=== PATIENT | female | born 1960 | race Caucasian/White ===

== ENCOUNTER 2019-10-16 11:47 | Emergency (ER) | payer BC ==
[2019-10-16] MEDS ORDERED: METHYLPREDNISOLONE 125 MG INJ ONE ×2 (12:45→13:09)
[2019-10-16] MEDS ORDERED: LEVALBUTEROL 1.25 MG/3 ML NEB ONE ×2 (12:45→13:09)
[2019-10-16] MEDS ORDERED: MAGNESIUM SULFATE 1 gm IVPB 0 GM/0 ML BAG IV ONE (12:46)
[2019-10-16] MEDS ORDERED: NA CHLORIDE 0.9% 0 ML ONE (12:46)
[2019-10-16] MEDS ORDERED: MAGNESIUM SULFATE 1 gm IVPB 1 GM/100 ML BAG IV ONE (13:09)
[2019-10-16] MEDS ORDERED: NA CHLORIDE 0.9% 1,000 ML ONE (13:09)
[2019-10-16 13:33] LABS: Absolute Lymphocytes (CBC) 0.7 K/uL (0.7-4.9); Basophils % 0.3 % (0-1.3); Hematocrit 42.8 % (36.0-45.0); Lymphocytes % 9.6 % (15.3-44.8); MPV 9.1 fL (7.6-11.3); RBC Red Blood Cell Count 4.48 M/uL (3.86-4.86)
--- NOTE | 2019-10-16 13:40 | RAD REPORT ---
EXAM DESCRIPTION: RAD - Chest Pa And Lat (2 Views) - 10/16/2019 1:14 pm CLINICAL HISTORY: cough, fever COMPARISON: None TECHNIQUE: Frontal and lateral views of the chest were obtained. FINDINGS: The lungs are fibrotic. Diaphragm is flattened. Increased retrosternal space noted. Small granulomatous calcifications are seen. No worrisome infiltrate or mass. Heart size is normal and ce ntral vasculature is within normal limits. No pleural effusion or pneumothorax seen. No acute bony finding noted. No aortic abnormality. IMPRESSION: COPD changes are evident. No focal pneumonia identified.
[2019-10-16 13:50] LABS: Albumin 3.3 g/dL (3.4-5.0); Bilirubin Total 0.1 mg/dL (0.2-1.0); Potassium 4.5 mmol/L (3.5-5.1); Protein, Total 7.2 g/dL (6.4-8.2)
[2019-10-16 13:57] LABS: Blood Morphology Comment NOT SEEN (NOT SEEN); Platelet Estimate ADEQ; Urine White Blood Cell Casts OK
--- NOTE | 2019-10-16 14:55 | ER ---
Nurse's Notes [facility] Name: Rhona Ladd Age: 59 yrs Sex: Female : 1960 Arrival Date: 10/16/2019 Time: 11:51 Bed 17 Private MD: Prashant Villa Diagnosis: Acute bronchitis Presentation: 10/15 12:08 Chief complaint: Patient states: Off and on cough, congestion and runny nose x 1 week. ss Pt has been seen in [place] [facility] and by Dr. Villa and given cough syrup, Z-mariano and prednisone which does not seem to be helping. Pt is concerned also because her blood pressure is high and does not seem to be improving. Coronavirus screen: The patient has NOT traveled to a country currently being monitored by the CDC within the last 14 days. Ebola Screen: Patient denies exposure to infectious person. Patient denies travel to an Ebola-affected area in the 21 days before illness onset. Resp Distress? No respiratory distress is noted at this time. Initial Sepsis Screen: Does the patient meet any 2 criteria? No. Patient's initial sepsis screen is negative. Does the patient have a suspected source of infection? No. Patient's initial sepsis screen is negative. Risk Assessment: Do you want to hurt yourself or someone else? Patient reports no desire to harm self or others. 12:08 Method Of Arrival: Ambulatory ss 12:08 Acuity: CHON 3 ss 13:10 Onset of symptoms was October 16, 2019. ca1 Historical: - Allergies: 12:10 Soma; ss 12:10 Bactrim; ss 12:10 Codeine; ss - PMHx: 12:10 Asthma; ss - Immunization history:: Adult Immunizations up to date. - Social history:: Smoking status: Patient denies any tobacco usage or history of. Screenin:10 Abuse screen: Denies threats or abuse. Denies injuries from another. Nutritional ca1 screening: No deficits noted. Tuberculosis screening: No symptoms or risk factors identified. Fall Risk IV access (20 points). Assessment: 13:10 General: Appears in no apparent distress. comfortable, Behavior is calm, cooperative, ca1 appropriate for age. Pain: Denies pain. Neuro: Level of Consciousness is awake, alert, obeys commands, Oriented to person, place, time, situation. Cardiovascular: Heart tones S1 S2 present Capillary refill < 3 seconds Patient's skin is warm and dry. Respiratory: Reports cough that is persistent since since 4 weeks ago pain with cough Airway is patent Respiratory effort is even, unlabored, Respiratory pattern is regular, symmetrical, Breath sounds with wheezes bilaterally. GI: Abdomen is round non-distended, Bowel sounds present X 4 quads. Abd is soft and non tender X 4 quads. : No deficits noted. No signs and/or symptoms were reported regarding the genitourinary system. EENT: Reports nasal congestion since a week ago. Derm: Skin is intact, is healthy with good turgor, Skin is pink, warm \\T\\ dry. Musculoskeletal: Circulation, motion, and sensation intact. Capillary refill < 3 seconds. 13:51 Reassessment: Patient appears in no apparent distress at this time. Patient and/or ca1 family updated on plan of care and expected duration. Pain level reassessed. Patient is alert, oriented x 3, equal unlabored respirations, skin warm/dry/pink. 14:15 Reassessment: Pt c/o difficulty breathing. Sats at 93%. Put O2 at 2LPM. Notified ca1 provider. 14:30 Reassessment: Ambulated pt around nurse's station per provider instruction. Baseline ca1 SPO2 at was 94%. SPO2 while ambulating ranges: 89%-92% at . Pt states, "I am okay, I just fel shaky". Requested to be put back on O2 once back in the room. notified provider. 14:40 Reassessment: Provider at bedside. ca1 15:00 Reassessment: Patient appears in no apparent distress at this time. Patient is alert, ca1 oriented x 3, equal unlabored respirations, skin warm/dry/pink. Vital Signs: 12:08 BP 174 / 100; Pulse 79; Resp 20; Temp 97.4(TE); Pulse Ox 93% on R/A; Weight 77.11 kg; ss Height 5 ft. 9 in. (175.26 cm); Pain 0/10; 13:26 BP 179 / 93; Pulse 75; Resp 19 S; Pulse Ox 98% on Nebulizer Mask; ca1 14:00 BP 151 / 78; Pulse 80; Resp 18 S; Pulse Ox 93% on R/A; ca1 15:01 BP 142 / 80; Pulse 81; Resp 18 S; Pulse Ox 97% on 2 lpm NC; ca1 12:08 Body Mass Index 25.10 (77.11 kg, 175.26 cm) ED Course: 11:51 Patient arrived in ED. mr 11:51 Prashant Villa DO is Private Physician. mr 11:52 Raymond Rodriguez PA is PHCP. m 11:52 Agustín Garcia MD is Attending Physician. jmm 12:10 Triage completed. ss 12:10 Arm band placed on right wrist. ss 12:39 Kellee Vargas, RN is Primary Nurse. ph 13:06 Patient has correct armband on for positive identification. Bed in low position. Call [facility] light in reach. Side rails up X 1. Adult w/ patient. Warm blanket given. Pulse ox on. NIBP on. 13:06 CBC with Automated Diff Sent. [facility] 13:06 Lactate Sent. [facility] 13:06 Procalcitonin Sent. [facility] 13:06 CMP Sent. [facility] 13:06 CBC with Diff Sent. [facility] 13:07 Initial lab(s) drawn, by me, sent to lab. Missed attempt(s): 22 gauge antecubital area. [facility] 13:09 Chest Pa And Lat (2 Views) XRAY In Process Unspecified. EDMS 13:10 Missed attempt(s): 20 gauge in left forearm. Bleeding controlled, band aid applied, ca1 catheter tip intact. 13:25 Lab(s) recollected, by me, sent to lab. Inserted saline lock: 22 gauge in right ca1 forearm, using aseptic technique. Blood collected. 14:54 Prashant Villa DO is Referral Physician. [facility] 15:06 No provider procedures requiring assistance completed. IV discontinued, intact, ca1 bleeding controlled, No redness/swelling at site. Pressure dressing applied. Administered Medications: 13:15 Drug: Xopenex (3) 1.25 mg Route: Inhalation; ca1 14:00 Follow up: Response: No adverse reaction ph 13:26 Drug: NS 0.9% 1000 ml Route: IV; Rate: 1 bolus; Site: right forearm; ca1 14:30 Follow up: Response: No adverse reaction; IV Status: Completed infusion; IV Intake: ph 1000ml 13:27 Drug: SOLU-Medrol 125 mg Route: IVP; Site: right forearm; ca1 14:11 Follow up: Response: No adverse reaction ca1 13:29 Drug: Magnesium Sulfate 1 grams Route: IVPB; Infused Over: 1 hrs; Site: right forearm; ca1 14:30 Follow up: Response: No adverse reaction; IV Status: Completed infusion ph Intake: 14:30 IV: 1000ml; Total: 1000ml. ph Outcome: 14:55 Discharge ordered by MD. king 15:06 Discharged to home ambulatory, with significant other. ca1 15:06 Condition: stable 15:06 Discharge instructions given to patient, Instructed on discharge instructions, follow up and referral plans. medication usage, Demonstrated understanding of instructions, follow-up care, medications, Prescriptions given X 2. 15:08 Patient left the ED. ca1 Signatures: Dispatcher [employer] EDMS Raymond Rodriguez PA PA jmm Rivera, Mary Ameena Zamudio, RN RN Kellee Ram RN RN ph Martinez, Maria [facility] Halie Quispe RN RN ca1 Corrections: (The following items were deleted from the chart) 14:17 14:15 Reassessment: Pt c/o difficulty breathing. Sats at 95%. Put O2 at 2LPM. Notified ca1 provider ca1 15:06 15:01 BP 184 / 86; Pulse 81bpm; Resp 18bpm; Spontaneous; Pulse Ox 97% 2 lpm Nasal ca1 Cannula; ca1
--- NOTE | 2019-10-16 14:55 | EDPHYS ---
Physician Documentation [facility] Name: Rhona Ladd Age: 59 yrs Sex: Female : 1960 Arrival Date: 10/16/2019 Time: 11:51 Bed 17 Private MD: Prashant Villa ED Physician Agustín Garcia HPI: 10/15 12:29 This 59 yrs old Female presents to ER via Ambulatory with complaints of jmm Cough, Congestion. 12:29 The patient or guardian reports cough. Onset: The symptoms/episode began/occurred jmm gradually, 1 month(s) ago. Modifying factors: The symptoms are alleviated by nothing, the symptoms are aggravated by nothing. Associated signs and symptoms: Pertinent positives: fever, sore throat, Pertinent negatives:. This is a 59 year old female with a history of asthma that presents to the ED with complaints of cough, shortness of breath which has been ongoing for the past month. Symptoms worsened last week and was evaluated at an ED. Patient was seen by PCP recently and prescribed azithromycin, prednison, cough syrup with little relief. . Historical: - Allergies: 12:10 Soma; ss 12:10 Bactrim; ss 12:10 Codeine; ss - PMHx: 12:10 Asthma; ss - Immunization history:: Adult Immunizations up to date. - Social history:: Smoking status: Patient denies any tobacco usage or history of. ROS: 12:29 Constitutional: Positive for fever. jmm 12:29 ENT: Positive for sore throat. 12:29 Respiratory: Positive for cough. 12:29 All other systems are negative. Exam: 12:29 Constitutional: This is a well developed, well nourished patient who is awake, alert, jmm and in no acute distress. Head/Face: atraumatic. Eyes: EOMI, no conjunctival erythema appreciated 12:29 Neck: Trachea midline, Supple Chest/axilla: Normal chest wall appearance and motion. 12:29 Abdomen/GI: Non distended, soft Back: Normal ROM Skin: General appearance color normal MS/ Extremity: Moves all extremities, no obvious deformities appreciated, no edema noted to the lower extremities Neuro: Awake and alert, normal gait Psych: Behavior is normal, Mood is normal, Patient is cooperative and pleasant 12:29 ENT: Posterior pharynx: erythema, that is mild. 12:29 Cardiovascular: Rate: normal, Rhythm: regular. 12:29 Respiratory: the patient does not display signs of respiratory distress, Respirations: normal, Breath sounds: wheezing: that is mild, is heard in the right posterior upper lobe and right posterior middle lobe. Vital Signs: 12:08 BP 174 / 100; Pulse 79; Resp 20; Temp 97.4(TE); Pulse Ox 93% on R/A; Weight 77.11 kg; ss Height 5 ft. 9 in. (175.26 cm); Pain 0/10; 13:26 BP 179 / 93; Pulse 75; Resp 19 S; Pulse Ox 98% on Nebulizer Mask; ca1 14:00 BP 151 / 78; Pulse 80; Resp 18 S; Pulse Ox 93% on R/A; ca1 15:01 BP 142 / 80; Pulse 81; Resp 18 S; Pulse Ox 97% on 2 lpm NC; ca1 12:08 Body Mass Index 25.10 (77.11 kg, 175.26 cm) ss MDM: 12:18 Patient medically screened. [facility] 14:52 Data reviewed: vital signs, nurses notes. Counseling: I had a detailed discussion with christine the patient and/or guardian regarding: the historical points, exam findings, and any diagnostic results supporting the discharge/admit diagnosis, lab results, radiology results, the need for outpatient follow up, to return to the emergency department if symptoms worsen or persist or if there are any questions or concerns that arise at home. ED course: O2 was above 90% on ambulation. No wheezing on reauscultation. Patient's steroid dose will be increased. Patient will follow up with Dr. Villa tomorrow for reevaluation. Patient is otherwise given strict return precautions. Patient is alert, non toxic in appearance, with no signs of resp distress on discharge.. 10/15 12:28 Order name: CBC with Diff [facility] 10/15 12:28 Order name: CMP; Complete Time: 13:55 [facility] 10/15 12:28 Order name: Procalcitonin; Complete Time: 14:10 [facility] 10/15 12:28 Order name: Lactate; Complete Time: 13:47 [facility] 10/15 12:29 Order name: CBC with Automated Diff; Complete Time: 14:10 [facility] 10/15 13:37 Order name: CBC Smear Scan; Complete Time: 14:10 [facility] 10/15 12:28 Order name: Saline Lock; Complete Time: 13:29 [facility] 10/15 12:29 Order name: Chest Pa And Lat (2 Views) XRAY; Complete Time: 13:47 [facility] 10/15 13:16 Order name: Labs - recollect needed: recollect lavender and green; Complete Time: 13:29 eb Administered Medications: 13:15 Drug: Xopenex (3) 1.25 mg Route: Inhalation; ca1 14:00 Follow up: Response: No adverse reaction ph 13:26 Drug: NS 0.9% 1000 ml Route: IV; Rate: 1 bolus; Site: right forearm; ca1 14:30 Follow up: Response: No adverse reaction; IV Status: Completed infusion; IV Intake: ph 1000ml 13:27 Drug: SOLU-Medrol 125 mg Route: IVP; Site: right forearm; ca1 14:11 Follow up: Response: No adverse reaction ca1 13:29 Drug: Magnesium Sulfate 1 grams Route: IVPB; Infused Over: 1 hrs; Site: right forearm; ca1 14:30 Follow up: Response: No adverse reaction; IV Status: Completed infusion ph Disposition: 10/16 09:44 Co-signature as Attending Physician, Agustín Garcia MD I agree with the assessment and [facility] plan of care. Disposition: 10/16/19 14:55 Discharged to Home. Impression: Acute bronchitis. - Condition is Stable. - Discharge Instructions: Acute Bronchitis, Adult. - Prescriptions for Prednisone 20 mg Oral Tablet - take 3 tablet by ORAL route once daily for 5 days; 15 tablet. Albuterol Sulfate 90 mcg/actuation Inhalation - inhale 1-2 puff by INHALATION route every 4-6 hours; 1 Inhaler. - Medication Reconciliation Form, Thank You Letter, Antibiotic Education, Prescription Opioid Use form. - Follow up: Prashant Villa, DO; When: Tomorrow; Reason: Recheck today's complaints, Continuance of care, Re-evaluation by your physician. Signatures: Dispatcher [employer] Agustín Tomlinson MD MD cha Mickail, Joel, PA PA jmm Smirch, Shelby, RN RN Ros Gray Cheryl, RN RN [facility] Kellee Vargas RN ph Corrections: (The following items were deleted from the chart) 10/15 15:08 14:55 10/16/2019 14:55 Discharged to Home. Impression: Acute bronchitis. Condition is ca1 Stable. Forms are Medication Reconciliation Form, Thank You Letter, Antibiotic Education, Prescription Opioid Use. Follow up: Prashant Villa; When: Tomorrow; Reason: Recheck today's complaints, Continuance of care, Re-evaluation by your physician. christine
[2019-10-16 15:22] VITALS: BP 142/80; O2SAT 97
[2019-10-16 15:32] VITALS: TEMP 98.8
== END 2019-10-16 15:08 | disposition home or self-care (01) ==
LOC: ER 11:47
DX: J20.9 Acute bronchitis, unspecified (principal); Z88.1 Allergy status to other antibiotic agents; Z88.5 Allergy status to narcotic agent
CPT/HCPCS: 96365; 85025; 36415; 83605; 80053; 84145; 71046; 96375; 99284; J3475; J7030; J2930

== ENCOUNTER 2019-10-18 11:01 | Emergency (ER) | payer BC ==
--- OUTSIDE RECORDS SUMMARY | 2019-10-18 11:04 | XMS REPORT ---
:1960 Author Organization [employer] Care Team Providers Name Role Phone Prashant Villa Provider Role Unavailable Allergies, Adverse Reactions, Alerts Substance Reaction Event Type Soma Itch Drug Allergy Morphine Sulfate Itch Drug Allergy Bactrim Itch Drug Allergy Problems Problem Type Condition Code Onset Dates Condition Status Assessment Moderate persistent asthma with J45.41 Active exacerbation Problem Moderate persistent asthma with J45.41 Active exacerbation Assessment Tobacco use disor-delliv O99.334 Active Assessment Upper respiratory tract infection, J06.9 Active unspecified type Assessment Acute non-recurrent maxillary J01.00 Active sinusitis Medications Medication Code Code Instructions Start End Date Status Dosage System Date PredniSONE [facility] 41453086170 20 MG Orally October Active 2 tablet Once a day [address] [facility] 29376539638 160-4.5 MCG/ACT Active 2 puffs Inhalation Twice a day Azithromycin [facility] 49744740325 250 MG Orally October Active 2 tablets Once a day 2019 on the first day, then 1 tablet daily for 4 days Promethazine HCl [facility] 97538181539 6.25 MG/5ML Active 10 ml as Orally every 6 needed hrs Results No Known Results Summary Purpose [employer] Submission
--- OUTSIDE RECORDS SUMMARY | 2019-10-18 11:04 | XMS REPORT | Continuity of Care Document ---
:1960 Author Organization [facility] Address [address] [place] [address] Allergies, Adverse Reactions, Alerts Allergen Type Severity Reaction Last Updated Verified Status Carisoprodol ([id number]) Allergy Moderate August 21, No Active 2020 Sulfamethoxazole Allergy Moderate August 21, No Active w/Trimethoprim 2019 ([id number]) Medications No known medications. Problems No problem information available. Procedures No procedure information available. Relevant Diagnostic Tests and/or Laboratory Data Laboratory Results Test Date/Time Result Interpretation Reference Result Performing Range Comment Site White Blood Count August 7.1 4.0-11.5 [facility], 104 2019 5:57pm [facility] [address] Red Blood Count Francy 4.45 3.80-5.20 [facility], 104 2019 5:57pm [facility] [address] Hemoglobin Francy 14.3 10.5-15.7 [facility], 104 2019 5:57pm [facility] [address] Hematocrit Francy 44.2 34.0-50.0 [facility], 104 2019 5:57pm [facility] [address] Mean Corpuscular Francy 99.3 86-100 [facility], 104 Volume 2019 5:57pm [facility] [address]98 Mean Corpuscular Francy 32.1 26.2-33.4 [facility], [address] Hemoglobin 2019 5:57pm [facility] [address] Mean Corpuscular Francy 32.4 30-34 [facility], 104 Hemoglobin Concent 2019 5:57pm [facility] [address]20 Red Cell Francy 12.4 12.0-15.5 [facility], 104 7TH Distribution Width 2019 5:57pm [facility] [address]309 Platelet Count August 178 165-450 [facility], 104 2019 5:57pm [place] [address] Mean Platelet Francy 10.3 9.4-12.6 [facility], [address] [facility] [address] Volume 2019 5:57pm [place] [address] Neutrophils (%) Francy 56.7 44.4-80.1 [facility], [address] [facility] (Auto) 2019 5:57pm [place] [address] Immature Francy 0.6 0.0-0.4 [facility], [address] [facility] Granulocyte % 2019 (Auto) 5:57pm [place] [address] Lymphocytes (%) August 34.2 10.0-50.0 [facility], [address] (Auto) 2019 5:57pm [place] [address] Monocytes (%) Francy 6.0 3.6-12.0 [facility], [address] [facility] (Auto) 2019 5:57pm [place] [address] Eosinophils (%) August 2.1 0.0-5.4 [facility], [address] [facility] (Auto) 2019 5:57pm [place] [address] Basophils (%) Francy 0.4 0.1-1.2 [facility], [address] [facility] (Auto) 2019 5:57pm [place] [address] Neutrophils # Francy 4.00 1.56-6.13 [facility], [address] (Auto) 2019 5:57pm [place] [address] Absolute Immature Francy 0.0 0.0-0.03 [facility], [address] [facility] Granulocyte (auto 2019 5:57pm [place] [address] Lymphocytes # Francy 2.4 1.18-3.74 [facility], [address] (Auto) 2019 5:57pm [place] [address] Monocytes # (Auto) Francy 0.42 0.24-0.86 [facility], [address] [facility] [address] 2019 5:57pm [place] [address] Eosinophils # Francy 0.15 0.04-0.36 [facility], [address] [facility] (Auto) 2019 5:57pm [place] [address] Basophils # (Auto) Francy 0.03 0.01-0.08 [facility], [address] [facility] 2019 5:57[place] [address] Nucleated Red Francy 0 0-0.2 [facility], [address] [facility] Blood Cells % 2019 5:57pm [place] [address] Nucleated Red August 0 0 [facility], 104 Blood Cells # 2019 5:57[place] [address] Urine Color Francy [address]. [facility], 104 2019 YELLOW 6:11pm [place] [address] Urine Appearance August CLEAR CLEAR [facility], 104 2019 6:11pm [place] [address] Urine Glucose (UA) Francy NEGATIVE NEGATIVE [facility], 104 2019 6:11pm [place] [address] Urine Bilirubin Francy NEGATIVE NEGATIVE [facility], 104 2019 6:11pm [place] [address] Urine Ketones August NEGATIVE NEGATIVE [facility], 104 2019 6:11pm [place] [address] Urine Specific Francy >=1.030 1.003-1.03 [facility], 104 Senath 2019 0 6:11pm [place] [address] Urine Blood August MODERATE NEGATIVE [facility], 104 2019 6:11pm [place] [address] Urine pH August 6.000 5-9 [facility], 104 2019 6:11pm [place] [address] Urine Protein Frnacy NEGATIVE NEGATIVE [facility], 104 2019 6:11pm [place] [address] Urine Urobilinogen August 0.2 0.2-1.0 [facility], 104 2019 6:11pm [place] [address] Urine Nitrate Francy NEGATIVE NEGATIVE [facility], 104 2019 6:11pm [place] [address] Urine Leukocyte Francy TRACE NEGATIVE [facility], 104 Esterase 2019 6:11pm [place] [address] Urine RBC August 0-3 0-5 [facility], 104 2019 6:11pm [place] [address] Urine WBC August 30-49 0-5 [facility], 104 2019 6:11pm [place] [address] Urine Epithelial Francy 0-5 0-5 [facility], 104 2019 6:11pm [place] [address] Urine Bacteria August TRACE None [facility], 104 2019 Detect 6:11pm [place] [address] Urine Culture August YES [facility], 104 Reflexed 2019 6:11pm [facility] [address] Random Glucose August 105 74-106 [facility], 104 2019 5:57pm [facility] [address] Blood Urea August 15 6-20 [facility], 104 Nitrogen 2019 5:57pm [facility] [address] Serum Osmolality August 284 280-300 [facility], 104 2019 5:57pm [facility] [address] Creatinine August 0.6 0.50-0.90 [facility], 104 2019 5:57pm [facility] [address] Glomerular Francy > 60.00 GFR RESULTS [facility], [facility] Filtration Rate 2019 ARE Calc 5:57pm REPORTED IN [facility] [address] mL/min/1.73 m2.Normal GFR: >60mL/minMo derately decreased GFR: 30-59 mL/minSever sridhar decreased GFR: 15-29 mL/minKidne y Failure (or Dialysis): <15 mL/minThe calculated eGFR is not valid for patients younger than 18 years or older than 75 years. BUN/Creatinine August 25.0 12- [facility], 104 [facility] 2019 5:57pm [facility] [address] Sodium Level August 142 135-145 [facility], 104 2019 5:57pm [facility] [address] Potassium Level August 4.0 3.5-5.2 [facility], 104 2019 5:57pm [facility] [address] Chloride Level August 98-108 [facility], 104 2019 5:57pm [facility] [address] Carbon Dioxide August 25 21-32 [facility], 104 2019 5:57pm [facility] [address] Anion Gap August 17.0 07-22 [facility], 104 2019 5:57pm [facility] [address] Calcium Level August 9.8 8.6-10.0 [facility], 104 2019 5:57pm [facility] [address] Total Protein August 6.7 6.6-8.7 [facility], 104 2019 5:57pm [facility] [address] Albumin August 4.4 3.5-5.2 [facility], 104 2019 5:57pm [facility] [address] Globulin Francy 2.3 [facility], [address] 2019 5:57pm [facility] [address] Albumin/Globulin Francy 1.9 >1.0 [facility], [address] Ratio 2019 5:57pm [facility] [address] Total Bilirubin August < 0.3 0.0-1.2 [facility], [address] 2019 5:57pm [facility] [address] Aspartate Amino August 16 15-32 [facility], [address] Transf (AST/SGOT) 2019 5:57pm [facility] [address] Alanine August 19 0-33 [facility], [address] Aminotransferase 2019 (ALT/SGPT) 5:57pm [facility] [address] Total Alkaline August 35-105 [facility], [address] Phosphatase 2019 5:57pm [facility] [address] Health Concerns No known health concerns documented Advance Directives Advance Directive Response Recorded Date/Time Advance Directive on File No August 21, 2019 5:45pm Chief Complaint and Reason for Visit Chief Complaint Female Urogenital Problems Reason for Visit [id number] Encounters Encounter Location(s) Arrival/Admit Date Discharge/Depart Date Provider(s) Departed [place] August 21, 2019 August 21, 2019 KURTIS ZAMBRANO Emergency Room [facility] 5:38pm 7:29pm MD Ctr Assessments No Assessments Information Available Functional Status No Functional Status information available Goals No Goals Information Available Immunizations No Immunization Information Available Mental Status No Mental Status Information Available Medical Equipment No Medical Equipment Information available Insurance Providers Guarantor Rena Beckford Address [address] [address] Contact Info. Home Phone: Payer Policy Id Coverage Id Subscriber's Subscriber Id Effective Expiration Name Date Date Osmani Vazquez [id number] Rena Beckford [id number] [address] Plan of Treatment CALL MD FOR FOLLOW UP IN 3 OR 4 DAYS TO RE-EVALUATE AND RECHECK URNINE MACROBID TWICE A DAY PYRIDIUM 3 TIMES A DAY Future Tests Future scheduled test information is unavailable Pending Tests Test Name Date ordered Urine Culture August 21, 2019 6:11pm Future Visits Future appointment information is unavailable Referrals to Other Providers Reason for Referral Start Provider Provider Contact Provider Address Referral Date Information PHYSICIAN, NO Future Procedures Future procedure information is unavailable Future Medications Future medication information is unavailable Patient Instructions Drug Allergy, Dhak-ek-Efye Urinary Tract Infection, Adult, Mnxo-[id number] Social History Assigned Sex Female Vital Signs Vital Reading Result Collection Date/Time
--- NOTE | 2019-10-18 14:14 | RAD REPORT ---
EXAM DESCRIPTION: CT - Head Brain Wo Cont - 10/18/2019 2:06 pm CLINICAL HISTORY: HTN, right sided tingling Headache, hypertension, drowsiness COMPARISON: No comparisons TECHNIQUE: All CT scans are performed using dose optimization technique as appropriate and may inclu de automated exposure control or mA/KV adjustment according to patient size. FINDINGS: No intracranial hemorrhage, hydrocephalus or extra-axial fluid collection.No areas of brai n edema or evidence of midline shift. The paranasal sinuses and mastoids are clear. The calvarium is intact. IMPRESSION: No acute intracranial abnormality.
[2019-10-18 14:16] LABS: Absolute Lymphocytes (CBC) 0.9 K/uL (0.7-4.9); Basophils % 0.4 % (0-1.3); Lymphocytes % 10.2 % (15.3-44.8); MPV 8.7 fL (7.6-11.3); RBC Red Blood Cell Count 4.51 M/uL (3.86-4.86)
[2019-10-18 14:17] LABS: Protime INR 0.87
--- NOTE | 2019-10-18 14:25 | EKG ---
Test Date: 2019-10-18 Test Time: 14:15:19 Branding Machine Operator: MELITON MEASUREMENT RESULTS: Intervals: Rate: 64 IA: 128 QRSD: 76 QT: 386 QTc: 398 [place]: P: 66 IA: 128 QRS: 37 T: 59 INTERPRETIVE STATEMENTS: Normal sinus rhythm Normal ECG No previous ECG available for comparison Electronically Signed On 10-18-19 14:25:36 CDT by Facundo Hay
[2019-10-18 14:35] LABS: BUN Blood Urea Nitrogen 18 mg/dL (7-18); Bicarbonate 31 mmol/L (21-32); Glucose Level 133 mg/dL (74-106); NT PRO-BNP 257 pg/mL (<125); Potassium 4.6 mmol/L (3.5-5.1); Sodium Level 141 mmol/L (136-145); Troponin (Emerg Dept Use Only) < 0.02 ng/mL (0.0-0.045)
--- NOTE | 2019-10-18 14:35 | RAD REPORT ---
EXAM DESCRIPTION: RAD - Chest Single View - 10/18/2019 2:28 pm CLINICAL HISTORY: HTN, left arm pain Chest pain. COMPARISON: Chest Pa And Lat (2 Views) dated 10/16/2019 FINDINGS: Portable technique limits examination quality. The lungs are grossly clear. The heart is normal in size. No displaced fractures. IMPRESSION: No acute intrathoracic process suspected.
--- NOTE | 2019-10-18 15:33 | EDPHYS ---
Physician Documentation [facility] Name: Rhona Ladd Age: 59 yrs Sex: Female : 1960 Arrival Date: 10/18/2019 Time: 11:04 Bed 19 Private MD: ED Physician Oscar Mendez HPI: 10/17 14:14 This 59 yrs old Female presents to ER via Ambulatory with complaints of High rn Blood Pressure. 14:14 The patient has elevated blood pressure and discovered this at home. Onset: The rn symptoms/episode began/occurred 1 week(s) ago. Modifying factors:. Severity of symptoms: At its worst the blood pressure was moderate, in the emergency department the blood pressure is improved. The patient has experienced similar episodes in the past. Reports chronically elevated BP, normally in 140s but no meds, + smoker with COPD, reports high BP for last week. Also reports about 1 month of dry cough, given zithromax and feels better in terms of cough. Also reports approx 10 min of tingling to right side of body, and earlier today felt left arm aching and pain.. Historical: - Allergies: 11:16 Bactrim; ca1 11:16 Codeine; ca1 11:16 Soma; ca1 - PMHx: 11:16 Asthma; ca1 - Immunization history:: Adult Immunizations up to date, Flu vaccine is not up to date. - Social history:: Smoking status: Patient/guardian denies using tobacco, but has a distant history of tobacco abuse. - Family history:: not pertinent. - Hospitalizations: : No recent hospitalization is reported. ROS: 14:14 Constitutional: Negative for fever, chills, and weight loss, Eyes: Negative for injury, rn pain, redness, and discharge, Neck: Negative for injury, pain, and swelling, Cardiovascular: Negative for chest pain, palpitations, and edema, Respiratory: + cough Abdomen/GI: Negative for abdominal pain, nausea, vomiting, diarrhea, and constipation, MS/Extremity: Negative for injury and deformity, Skin: Negative for injury, rash, and discoloration, Neuro: Negative for headache, weakness, and seizure. Exam: 14:14 Constitutional: This is a well developed, well nourished patient who is awake, alert, rn and in no acute distress. Head/Face: Normocephalic, atraumatic. ENT: MMM Cardiovascular: Regular rate and rhythm. No pulse deficits. Respiratory: No increased work of breathing, no retractions or nasal flaring. Abdomen/GI: soft, non-tender MS/ Extremity: Pulses equal, no cyanosis. Neurovascular intact. Full, normal range of motion. Equal circumference. Neuro: Awake and alert, GCS 15, oriented to person, place, time, and situation. Cranial nerves II-XII grossly intact. Motor strength 5/5 in all extremities. Sensory grossly intact. Cerebellar exam normal. 15:10 ECG was reviewed by the Attending Physician. rn Vital Signs: 11:16 BP 190 / 112; Pulse 79; Resp 17 S; Temp 98(TE); Pulse Ox 93% on R/A; Weight 77.11 kg ca1 (R); Height 5 ft. 9 in. (175.26 cm) (R); 13:51 BP 181 / 112; Pulse 76; Resp 18; Pulse Ox 100% on R/A; em 14:54 BP 166 / 91; Pulse 72; Resp 18; Pulse Ox 93% on R/A; Pain 4/10; em 11:16 Body Mass Index 25.10 (77.11 kg, 175.26 cm) ca1 MDM: 13:25 Patient medically screened. rn 15:31 Differential diagnosis: hypertensive crisis, Malignant HTN, asymptomatic HTN. Data rn reviewed: vital signs, nurses notes, lab test result(s), EKG, radiologic studies, CT scan, plain films, and as a result, I will discharge patient. Counseling: I had a detailed discussion with the patient and/or guardian regarding: the historical points, exam findings, and any diagnostic results supporting the discharge/admit diagnosis, lab results, radiology results, the need for outpatient follow up, to return to the emergency department if symptoms worsen or persist or if there are any questions or concerns that arise at home. 15:31 Counseling: I had a detailed discussion with the patient and/or guardian regarding: the rn presence of at least one elevated blood pressure reading (>120/80) during this emergency department visit. Special discussion: I have referred the patient to see his PCP for further evaluation of high blood pressure. I discussed with the patient/guardian in detail that at this point there is no indication for admission to the hospital. It is understood, however, that if the symptoms persist or worsen the patient needs to return immediately for re-evaluation. Based on the history and exam findings, there is no indication for further emergent testing or inpatient evaluation. I discussed with the patient/guardian the need to see the primary care provider for further evaluation of the symptoms. 15:33 Counseling: I had a detailed discussion with the patient and/or guardian regarding: rn smoking cessation. 10/17 13:45 Order name: Basic Metabolic Panel; Complete Time: 15:06 rn 10/17 13:45 Order name: CBC with Diff rn 10/17 13:45 Order name: NT PRO-BNP; Complete Time: 15:06 rn 10/17 13:45 Order name: PT-INR; Complete Time: 15:06 rn 10/17 13:45 Order name: Troponin (emerg Dept Use Only); Complete Time: 15:06 rn 10/17 13:45 Order name: XRAY Chest (1 view); Complete Time: 15:06 rn 10/17 13:45 Order name: EKG; Complete Time: 13:46 rn 10/17 13:45 Order name: Cardiac monitoring; Complete Time: 14:04 rn 10/17 13:45 Order name: EKG - Nurse/Tech; Complete Time: 14:04 rn 10/17 13:45 Order name: IV Saline Lock; Complete Time: 14:04 rn 10/17 13:45 Order name: Labs collected and sent; Complete Time: 14:03 rn 10/17 13:45 Order name: O2 Per Protocol; Complete Time: 14:03 rn 10/17 13:45 Order name: CT Head Brain wo Cont; Complete Time: 15:06 rn 10/17 13:45 Order name: O2 Sat Monitoring; Complete Time: 14:03 rn EC:10 Rate is 64 beats/min. Rhythm is regular. QRS [place] is Normal. MO interval is normal. QRS rn interval is normal. QT interval is normal. No Q waves. T waves are Normal. No ST changes noted. Clinical impression: Normal ECG. Interpreted by me. Reviewed by me. Administered Medications: 15:43 Drug: Hydrochlorothiazide 25 mg Route: PO; em 15:50 Follow up: Response: Medication administered at discharge. em Disposition: 10/18/19 15:32 Discharged to Home. Impression: Hypertension. - Condition is Stable. - Discharge Instructions: Hypertension, Managing Your Hypertension. - Prescriptions for Hydrochlorothiazide 50 mg Oral Tablet - take 1 tablet by ORAL route once daily; 30 tablet. - Medication Reconciliation Form, Thank You Letter, Antibiotic Education, Prescription Opioid Use form. - Follow up: Private Physician; When: As needed; Reason: Recheck today's complaints, Re-evaluation by your physician. - Problem is an ongoing problem. - Symptoms have improved. Signatures: Dispatcher [employer] Melquiades Richard RN RN em Nieto, Roman, MD MD rn Marioob, TESSA Ambrose RN ca1 Corrections: (The following items were deleted from the chart) 15:51 15:32 10/18/2019 15:32 Discharged to Home. Impression: Hypertension. Condition is em Stable. Forms are Medication Reconciliation Form, Thank You Letter, Antibiotic Education, Prescription Opioid Use. Follow up: Private Physician; When: As needed; Reason: Recheck today's complaints, Re-evaluation by your physician. Problem is an ongoing problem. Symptoms have improved. rn
--- NOTE | 2019-10-18 15:33 | ER ---
Nurse's Notes [facility] Name: Rhona Ladd Age: 59 yrs Sex: Female : 1960 Arrival Date: 10/18/2019 Time: 11:04 Bed 19 Private MD: Diagnosis: Hypertension Presentation: 10/17 11:13 Chief complaint: Patient states: High BP since the 12 of October. Today, HBP 203/112. ca[address] Villa and instructed to come to the ER. Coronavirus screen: The patient has NOT traveled to a country currently being monitored by the [facility] within the last 14 days. The patient has NOT had contact with any known and/or suspected case of coronavirus. Ebola Screen: Patient negative for fever greater than or equal to 101.5 degrees Fahrenheit, and additional compatible Ebola Virus Disease symptoms Patient denies exposure to infectious person. Patient denies travel to an Ebola-affected area in the 21 days before illness onset. No symptoms or risks identified at this time. Initial Sepsis Screen: Does the patient meet any 2 criteria? No. Patient's initial sepsis screen is negative. Does the patient have a suspected source of infection? No. Patient's initial sepsis screen is negative. Risk Assessment: Do you want to hurt yourself or someone else? Patient reports no desire to harm self or others. Onset of symptoms was October 18, 2019. Care prior to arrival: None. 11:13 Method Of Arrival: Ambulatory ca1 11:13 Acuity: CHON 3 ca1 Historical: - Allergies: 11:16 Bactrim; ca1 11:16 Codeine; ca1 11:16 Soma; ca1 - PMHx: 11:16 Asthma; ca1 - Immunization history:: Adult Immunizations up to date, Flu vaccine is not up to date. - Social history:: Smoking status: Patient/guardian denies using tobacco, but has a distant history of tobacco abuse. - Family history:: not pertinent. - Hospitalizations: : No recent hospitalization is reported. Screenin:45 Abuse screen: Denies threats or abuse. Nutritional screening: No deficits noted. em Tuberculosis screening: No symptoms or risk factors identified. Fall Risk None identified. Assessment: 13:40 General: Appears in no apparent distress. comfortable, Behavior is calm, cooperative, em Denies fever. Pain: Denies pain. Neuro: Level of Consciousness is awake, alert, obeys commands, Oriented to person, place, time, situation, Appropriate for age Reports paresthesias in right arm and right leg Denies headache. Cardiovascular: Capillary refill < 3 seconds Patient's skin is warm and dry. Respiratory: Airway is patent Respiratory effort is even, unlabored, Respiratory pattern is regular, symmetrical. GI: Abdomen is flat, Patient currently denies nausea, vomiting. Derm: Skin is intact, is thin, Skin is pink, warm \T\ dry. Musculoskeletal: Capillary refill < 3 seconds, Range of motion: intact in all extremities. 14:55 Reassessment: Patient appears in no apparent distress at this time. Patient and/or em family updated on plan of care and expected duration. Pain level reassessed. Patient is alert, oriented x 3, equal unlabored respirations, skin warm/dry/pink. 15:51 Reassessment: Patient appears in no apparent distress at this time. Patient and/or em family updated on plan of care and expected duration. Pain level reassessed. Patient is alert, oriented x 3, equal unlabored respirations, skin warm/dry/pink. Patient states feeling better. Patient states symptoms have improved. Vital Signs: 11:16 BP 190 / 112; Pulse 79; Resp 17 S; Temp 98(TE); Pulse Ox 93% on R/A; Weight 77.11 kg ca1 (R); Height 5 ft. 9 in. (175.26 cm) (R); 13:51 BP 181 / 112; Pulse 76; Resp 18; Pulse Ox 100% on R/A; em 14:54 BP 166 / 91; Pulse 72; Resp 18; Pulse Ox 93% on R/A; Pain 4/10; em 11:16 Body Mass Index 25.10 (77.11 kg, 175.26 cm) ca1 ED Course: 11:04 Patient arrived in ED. rg4 11:16 Triage completed. ca1 11:16 Arm band placed on right wrist. ca1 12:50 Patient has correct armband on for positive identification. Bed in low position. Call em light in reach. Adult w/ patient. 12:50 air sampling and monitoring on. Pulse ox on. NIBP on. em 13:24 Melquiades Yin, RN is Primary Nurse. em 13:25 Oscar Mendez MD is Attending Physician. rn 13:50 Initial lab(s) drawn, by me, sent to lab. Inserted saline lock: 20 gauge in right em forearm, using aseptic technique. Blood collected. 14:06 CT Head Brain wo Cont In Process Unspecified. EDMS 14:29 XRAY Chest (1 view) In Process Unspecified. EDMS 15:50 No provider procedures requiring assistance completed. IV discontinued, intact, em bleeding controlled, No redness/swelling at site. Pressure dressing applied. Administered Medications: 15:43 Drug: Hydrochlorothiazide 25 mg Route: PO; em 15:50 Follow up: Response: Medication administered at discharge. em Outcome: 15:32 Discharge ordered by . rn 15:50 Discharged to home ambulatory, with family. em 15:50 Condition: good 15:50 Discharge instructions given to patient, family, Instructed on discharge instructions, follow up and referral plans. medication usage, Demonstrated understanding of instructions, follow-up care, medications, Prescriptions given X 1. 15:51 Patient left the ED. em Signatures: Dispatcher [employer] Melquiades Richard, RN RN em Oscar Mendez MD MD rn Garcia, Rubi 4 Halie Quispe RN RN ca1
[2019-10-18] MEDS ORDERED: hydroCHLOROthiazide 25 MG TAB ONE (15:47)
[2019-10-18 16:27] LABS: Blood Morphology Comment NOT SEEN (NOT SEEN); Platelet Estimate ADEQ
[2019-10-18 16:35] VITALS: TEMP 98
[2019-10-18 16:38] VITALS: BP 166/91; O2SAT 93
== END 2019-10-18 15:51 | disposition home or self-care (01) ==
LOC: ER 11:01
DX: I10 Essential (primary) hypertension (principal); Z88.1 Allergy status to other antibiotic agents; Z88.6 Allergy status to analgesic agent
CPT/HCPCS: 36415; 70450; 71045; 80048; 83880; 84484; 85025; 85610; 93005; 99284

== ENCOUNTER 2020-01-01 20:23 | Emergency (ER) | payer BC ==
--- OUTSIDE RECORDS SUMMARY | 2020-01-01 20:28 | XMS REPORT | Continuity of Care Document ---
:1960 Author Organization [facility] Care Team Providers Name Role Phone [facility] Unavailable Un available Problems Problem Status Onset Classification Date Comments Sourc e Date Reported Jaw pain 04/21/20 11/03/[address] HIGH BLOOD Active 04/15/20 [facility] PRESSURE 18 [place] ACS Active 04/15/20 [place] [id number] [place] CARDAIC Active 12/15/[address] CHEST PAIN Active 12/15/[address] CHRISTY BILLING Active 12/15/[address] Epigastric pain 11/03/2018 [place] Essential 11/03/2018 (primary) [place] hypertension Hyperosmolality 11/03/2018 and hypernatremia [place] Other chest pain 11/03/2018 [place] Headache 11/03/2018 [place] [facility]a [facility]03[facility] arm 11/03/2018 [facility] Diverticulosis of 11/03/2018 [facility] small intestine [place] without perforation or abscess without bleeding Nicotine 11/03/2018 dependence, [place] cigarettes, uncomplicated Family history of 11/03/2018 [facility] ischemic heart [place] and disease and other diseases of the circulatory system Hypertensive Resolved Problem 11/03/2018 [place] disorder, systemic [facility] arterial Center, (disorder) [place] Smoker (finding) Resolved Problem 11/03/2018 [facility] CHEST PAIN, Active [facility] ACUTE ISCHEMIC Active Memor ial HEART DISEASE, Kamini nn UNSPECIFIE Medications Medication Details Route Status Patient Ordering Order Source Instructions Provider Date Aspirin 325 MG Notes: (Do Not Inactive H Enteric Coated Crush) Do not 2018 [place] Tablet crush or chew. Saline Flush Notes: (Same No Longer 0.9% as: BD Active 2017 [place] Posiflush) NIFEdipine 90 90 mg = 1 tab, Active mg oral tablet, PO, Daily, 0 2018 [place] extended Refill(s) release Protonix Notes: For IV No Longer push Active 2017 [place] reconstitute with 10 ml 0.9% sodium chloride and push over 2 minutes. (Same as: Protonix) Nicotine Notes: (Same No Longer as: Habitrol) Active 2017 [place] "Remove old patch before application of new patch" WASTE: F/P - P Waste Black; E - P Waste Black 24 HR Notes: (Same No Longer Nifedipine 90 as: Adalat CC, Active 2017 [place] MG Extended Procardia XL) Release Tablet Give on empty [Procardia] stomach. Take 1 hour before or 2 hours after meal; "Avoid grapefruit and grapefruit juice". Do not crush Hydralazine Notes: (Same No Longer as: Active 2017 [place] Apresoline) Push over 5 minutes Saline Flush Notes: (Same No Longer 0.9% as: BD Active 2017 [place] Posiflush) Ondansetron Notes: (Same No Longer as: Zofran) Active 2017 [place] Acetaminophen Notes: Do not No Longer exceed 4 Active 2017 [place] gm/day. (Same as: Tylenol) Acetaminophen Notes: (Same No Longer 325 MG / as: [place] Active 2017 [place] Hydrocodone 325/5) Do not Bitartrate 5 MG exceed 4gm/day Oral Tablet of acetaminophen. Morphine Notes: (Same No Longer as:MORPhine Active 2017 [place] Sulfate) metoprolol Notes: (Same Inactive tartrate as: Lopressor) 2017 [place] Nitroglycerin Notes: (Same No Longer as:Nitroquick, Active 2017 [place] Nitrostat) "Do Not Crush" Sublingual tablet Lisinopril Notes: (Same Inactive as: Prinivil, 2017 [place] Zestril) Dilaudid 1 mg, Route: Inactive IVP, ONCE, 2017 [place] Dosing Weight 82, kg, Priority: STAT, Start date: 04/15/18 13:32:00 CDT, Stop date: 04/15/18 13:32:00 CDT Nitroglycerin 1 inch, Route: Inactive 0.02 MG/MG TOP, Drug 2017 [place] Topical Form: OINT, Ointment Dosing Weight 82, kg, ONCE, Start date: 04/15/18 12:32:00 CDT, Stop date: 04/15/18 12:32:00 CDT Ondansetron 4 mg, Route: Inactive IVP, Drug 2017 [place] form: INJ, ONCE, Dosing Weight 82, kg, Priority: STAT, Start date: 04/15/18 12:31:00 CDT, Stop date: 04/15/18 12:31:00 CDT Morphine 4 mg, Route: Inactive IVP, ONCE, 2018 [place] Dosing Weight 82, kg, Priority: STAT, Start date: 04/15/18 12:31:00 CDT, Stop date: 04/15/18 12:31:00 CDT Aspirin Notes: Take Inactive with food. 2018 [place] Saline Flush Notes: (Same No Longer 0.9% as: BD Active 2017 [place] Posiflush) Protonix Notes: Tablet No Longer [place] should not be Active 2018 [facility] chewed or Center crushed. (Same as: Protonix) Ibuprofen 600 mg, 1 tab, Inactive [place] as Route: PO, 2017 [facility] Drug form: Center TAB, Q6H, Dosing Weight 81.818, kg, PRN Pain Score 1-3, Start date: 12/14/17 15:47:00 CDT, Duration: 30 day, Stop date: 01/13/18 15:46:00 CDT Morphine 4 mg, Route: Inactive [place] IVP, ONCE, 2018 [facility] Dosing Weight Center 81.818, kg, Priority: STAT, Start date: 12/14/17 7:50:00 CDT, Stop date: 12/14/17 7:50:00 CDT Nitroglycerin Notes: (Same Inactive [place] as:Tridil) 2018 [facility] Final conc = Center 0.4 mg/ml. Premix bottle. Nitroglycerin 50 mg, 250 mL, Inactive [place] Rate: Titrate, 2018 [facility] Start Dose: 10 Center microgram/min, Titration: 10 microgram/min every 5 minutes, Goal(s): Chest pain and SBP between 100 - 150 mmHg, Max Dose: 200 mcg/min, Route: IV, Dosing Weight 81.818 kg, Total Volume: 250, Start date: 12/01... Morphine 4 mg, Route: Inactive [place] IVP, ONCE, kg, 2017 [facility] Priority: Center STAT, Start date: 12/14/17 7:07:00 CDT, Stop date: 12/14/17 7:07:00 CDT Ondansetron 4 mg, Route: Inactive [place] IVP, ONCE, kg, 2017 [facility] Priority: Center STAT, Start date: 12/14/17 7:07:00 CDT, Stop date: 12/14/17 7:07:00 CDT Saline Flush Notes: Same Inactive [place] as 0.9% as: BD 2017 [facility] Posiflush Center Sterile Allergies, Adverse Reactions, Alerts Substance Category Reaction Severity Reaction Status Date Comments S ource type Reported Soma Assertion Drug Active allergy [place] Bactrim Assertion Drug Active allergy [place] Immunizations No Data Provided for This Section Results Order Name Results Value Reference Date Interpretation Comments Alaina rce Range CARDIAC Troponin-I <0.02 0.00 - 04/16 ENZYMES 0.40 [place] CHEM PANEL eGFR 53 04/16 Result Comment: The [place] eGFR is calculated using the CKD-EPI formula. In most young, healthy individuals the eGFR will be >90 mL/min/1.73m2 . The eGFR declines with age. An eGFR of 60-89 may be normal in some populations, particularly the elderly, for whom the CKD-EPI formula has not been extensively validated. Use of the eGFR is not recommended in the following populations:< br/>
Drea viduals with unstable creatinine concentration s, including patients and those with serious co-morbid conditions.<b r/>
Patie nts with extremes in muscle mass or diet.

The data above are obtained from the National Kidney Disease Education Program (NKDEP) which additionally recommends that when the eGFR is used in patients with extremes of body mass index for purposes of drug dosing, the eGFR should be multiplied by the estimated BMI. CHEM PANEL Chloride Lvl 105 95 - 109 04/16 [place] CHEM PANEL CO2 31 24 - 32 04/16 [place] CHEM PANEL Potassium 4.5 3.5 - 5.1 04/16 MH Lvl /2017 [place] CHEM PANEL Sodium Lvl 142 135 - 145 04/16 [place] CHEM PANEL BUN 15 7 - 22 04/16 [place] CHEM PANEL Creatinine 1.15 0.50 - 04/16 MH Lvl 1.40 [place] CHEM PANEL Calcium Lvl 8.6 8.5 - 10.5 04/16 [place] CHEM PANEL AGAP 10.5 10.0 - 04/16 MH 20.0 [place] CHEM PANEL Glucose Lvl 100 70 - 99 04/16 [place] HEMATOLOGY Hct 38.9 36.0 - 04/16 MH 48.0 [place] HEMATOLOGY Hgb 13.5 12.0 - 04/16 MH 16.0 [place] HEMATOLOGY MPV 9.0 7.4 - 10.4 04/16 [place] HEMATOLOGY Platelet 133 133 - 450 04/16 [place] HEMATOLOGY MCHC 34.7 32.0 - 04/16 MH 36.0 [place] HEMATOLOGY MCV 96.7 80.0 - 04/16 MH 98.0 [place] HEMATOLOGY RDW 12.9 11.5 - 04/16 MH 14. [place] HEMATOLOGY MCH 33.6 27.0 - 04/16 MH 31.0 [place] HEMATOLOGY WBC 3.9 3.7 - 10.4 04/16 [place] HEMATOLOGY RBC 4.02 4.20 - 04/16 MH 5.40 [place] LIPIDS VLDL 44 04/16 [place] LIPIDS LDL 87 <=99 mg/dL 04/16 (Calculated) [place] LIPIDS HDL 49 >=61 mg/dL 04/16 [place] LIPIDS Chol 180 <=199 04/16 mg/dL [place] LIPIDS Trig 220 <=149 04/16 mg/dL [place] LIPIDS CHD Risk 3.67 3.90 - 04/16 MH 5.80 [place] SPECIAL Hgb A1C 5.5 <=5.6 % 04/16 CHEMISTRY /2017 [place] CARDIAC Troponin-I <0.02 0.00 - 09 MH ENZYMES 0.40 [place] CHEM PANEL Lactic Acid 0.7 0.5 - 2.2 09 MH Lvl /2018 [place] CHEM PANEL Lipase Lvl 87 73 - 393 04/15 MH [place] CARDIAC Troponin-I <0.02 0.00 - 09 MH ENZYMES 0.40 [place] CARDIAC Total CK 109 12 - 191 04/15 MH ENZYMES [place] CARDIAC proBNP 64 0 - 125 04/15 MH ENZYMES [place] CHEM PANEL A/G Ratio 1.2 0.7 - 1.6 09 MH [place] CHEM PANEL Globulin 3.3 2.7 - 4.2 04/15 MH [place] CHEM PANEL B/C Ratio 16 6 - 25 04/15 [place] CHEM PANEL AGAP 12.0 10.0 - 09 MH 20.0 /2017 [place] CHEM PANEL eGFR 83 04/15 Result Comment: The [place] eGFR is calculated using the CKD-EPI formula. In most young, healthy individuals the eGFR will be >90 mL/min/1.73m2 . The eGFR declines with age. An eGFR of 60-89 may be normal in some populations, particularly the elderly, for whom the CKD-EPI formula has not been extensively validated. Use of the eGFR is not recommended in the following populations:< br/>
Drea viduals with unstable creatinine concentration s, including patients and those with serious co-morbid conditions.<b r/>
Patie nts with extremes in muscle mass or diet.

The data above are obtained from the National Kidney Disease Education Program (NKDEP) which additionally recommends that when the eGFR is used in patients with extremes of body mass index for purposes of drug dosing, the eGFR should be multiplied by the estimated BMI. CHEM PANEL Bili Total 0.5 0.2 - 1.3 04/15 [place] CHEM PANEL Alk Phos 82 39 - 136 04/15 [place] CHEM PANEL ALT 28 0 - 65 04/15 [place] CHEM PANEL AST 13 0 - 37 04/15 [place] CHEM PANEL Total 7.1 6.4 - 8.4 04/15 Protein [place] CHEM PANEL Calcium Lvl 9.6 8.5 - 10.5 04/15 [place] CHEM PANEL CO2 28 24 - 32 04/15 [place] CHEM PANEL Potassium 4.0 3.5 - 5.1 04/15 MH Lvl /2017 [place] CHEM PANEL Chloride Lvl 110 95 - 109 04/15 [place] CHEM PANEL Sodium Lvl 146 135 - 145 04/15 [place] CHEM PANEL Creatinine 0.79 0.50 - 09 MH Lvl 1.40 [place] CHEM PANEL BUN 13 7 - 22 04/15 [place] CHEM PANEL Glucose Lvl 89 70 - 99 04/15 [place] CHEM PANEL Albumin Lvl 3.8 3.5 - 5.0 04/15 [place] CHEM PANEL Magnesium 2.3 1.8 - 2.4 04/15 MH Lvl [place] CHEM PANEL Phosphorus 3.7 2.5 - 4.5 04/15 [place] ENDOCRINOLOG S Preg Negative Negative 04/15 Y *NA* /2017 [place] (04/15/18 10:16 AM) HEMATOLOGY WBC 4.9 3.7 - 10.4 04/15 [place] HEMATOLOGY Hgb 15.2 12.0 - 04/15 MH 16.0 [place] HEMATOLOGY RBC 4.61 4.20 - 04/15 MH 5.40 [place] HEMATOLOGY MCHC 33.6 32.0 - 04/15 MH 36.0 [place] HEMATOLOGY Hct 45.3 36.0 - 04/15 MH 48.0 [place] HEMATOLOGY MCV 98.2 80.0 - 04/15 MH 98.0 [place] HEMATOLOGY MCH 33.0 27.0 - 04/15 MH 31.0 [place] HEMATOLOGY MPV 8.8 7.4 - 10.4 04/15 [place] HEMATOLOGY RDW 12.6 11.5 - 04/15 MH 14.5 [place] HEMATOLOGY Platelet 163 133 - 450 04/15 [place] HEMATOLOGY Lymphocytes 39.1 20.0 - 04/15 MH 40.0 [place] HEMATOLOGY Eosinophils 2.5 0.0 - 4.0 04/15 [place] HEMATOLOGY Segs 50.6 45.0 - 04/15 MH 75.0 [place] HEMATOLOGY Lymphocytes 1.9 1.0 - 5.5 04/15 # /2018 [place] HEMATOLOGY Neutrophils 2.5 1.5 - 8.1 04/15 # /2017 [place] HEMATOLOGY Monocytes 7.1 2.0 - 12.0 04/15 [place] HEMATOLOGY Basophils 0.7 0.0 - 1.0 04/15 [place] HEMATOLOGY Eosinophils 0.1 0.0 - 0.5 04/15 # /2017 [place] HEMATOLOGY Monocytes # 0.3 0.0 - 0.8 04/15 [place] CARDIAC Troponin-I <0.02 0.00 - 12/14 [facility] ENZYMES 0.40 [facility] CARDIAC CK MB Index 2.7 0.0 - 2.5 12/14 [facility] ENZYMES /2017 [facility] CARDIAC Troponin-I <0.02 0.00 - 12/14 [facility] ENZYMES 0.40 [facility] CARDIAC Total CK 119 12 - 191 12/14 [facility] /2017 [facility] CARDIAC CK MB 3.2 0.5 - 3.6 12/14 [facility] CHEM PANEL eGFR 87 12/14 [facility] Comment: The Medical eGFR is Center calculated using the CKD-EPI formula. In most young, healthy individuals the eGFR will be >90 mL/min/1.73m2 . The eGFR declines with age. An eGFR of 60-89 may be normal in some populations, particularly the elderly, for whom the CKD-EPI formula has not been extensively validated. Use of the eGFR is not recommended in the following populations:< br/>
Drea viduals with unstable creatinine concentration s, including patients and those with serious co-morbid conditions.<b r/>
Patie nts with extremes in muscle mass or diet.

The data above are obtained from the National Kidney Disease Education Program (NKDEP) which additionally recommends that when the eGFR is used in patients with extremes of body mass index for purposes of drug dosing, the eGFR should be multiplied by the estimated BMI. CHEM PANEL Globulin 3.1 2.7 - 4.2 12/14 [facility] CHEM PANEL Alk Phos 78 39 - 136 12/14 [facility] CHEM PANEL AST 12 0 - 37 12/14 2017 [facility] CHEM PANEL ALT 24 0 - 65 05 [place] [facility] CHEM PANEL Albumin Lvl 3.2 3.5 - 5.0 12/14 [place] [facility] CHEM PANEL Total 6.3 6.4 - 8.4 12/14 [facility] Protein /2017 [facility] CHEM PANEL CO2 23 24 - 32 05 [place] 2017 [facility] CHEM PANEL Calcium Lvl 8.9 8.5 - 10.5 12/14 [place] as /2017 [facility] CHEM PANEL A/G Ratio 1.0 0.7 - 1.6 12/14 [place] 2017 [facility] CHEM PANEL AGAP 14.1 10.0 - 05 [place] 20.0 [facility] CHEM PANEL B/C Ratio 22 6 - 25 12/[address] CHEM PANEL Bili Total 0.2 0.2 - 1.3 12/[address] CHEM PANEL Sodium Lvl 143 135 - 145 12/14 [facility]2017 [facility] CHEM PANEL Chloride Lvl 110 95 - 109 12/14 [place] [facility] CHEM PANEL Potassium 4.1 3.5 - 5.1 12/14 [place] Lvl /2017 [facility] CHEM PANEL Creatinine 0.76 0.50 - 12/14 [place] Lvl 1.40 /2017 [facility] CHEM PANEL BUN 17 7 - 22 12/[address] CHEM PANEL Glucose Lvl 101 70 - 99 12/[address] HEMATOLOGY Monocytes # 0.4 0.0 - 0.8 12/14 [place] [facility] HEMATOLOGY Eosinophils 0.1 0.0 - 0.5 12/14 [place] # /2017 [facility] HEMATOLOGY Segs 48.7 45.0 - 12/14 [place] 75.0 [facility] HEMATOLOGY Lymphocytes 39.8 20.0 - 12/14 [place] 40.0 2018 [facility] HEMATOLOGY Monocytes 8.3 2.0 - 12.0 12/14 [facility]2017 [facility] HEMATOLOGY Eosinophils 2.7 0.0 - 4.0 12/14 [place] /2018 [facility] HEMATOLOGY Lymphocytes 2.0 1.0 - 5.5 12/14 [place] # /2018 [facility] HEMATOLOGY Basophils 0.5 0.0 - 1.0 12/[address] HEMATOLOGY Segs-Bands # 2.5 1.5 - 8.1 12/14 [place] as /2017 [facility] HEMATOLOGY MCHC 33.5 32.0 - 12/14 [place] 36.0 [facility] HEMATOLOGY MPV 9.2 7.4 - 10.4 12/14 [facility] HEMATOLOGY Platelet 133 133 - 450 12/14 [facility] HEMATOLOGY RDW 13.0 11.5 - 12/14 14.5 [facility] HEMATOLOGY MCH 32.8 27.0 - 12/14 [place] 31.0 [facility] HEMATOLOGY Hct 43.1 36.0 - 12/14 [facility] 48.0 [facility] HEMATOLOGY Hgb 14.4 12.0 - 12/14 [facility] 16.0 [facility] HEMATOLOGY MCV 97.9 80.0 - 12/14 [facility] 98.0 [facility] HEMATOLOGY RBC 4.40 4.20 - 12/14 [facility] 5.40 /2017 [facility] HEMATOLOGY WBC 5.1 3.7 - 10.4 12/14 [facility] Pathology Reports No Data Provided for This Section Diagnostic Reports Report Value Date Source Chest/Abd/Pelvis PROCEDURE: CTA CHEST ABDOMEN AND PELVIS WITH CONTRAST 04/15/2018 [facility] CTA CLINICAL INDICATION: Persist ent left jaw pain since yesterday. Headache for the past 2 days. Patient denies chest pain. COMPARISON: Today's chest x-ray TECHNIQUE: Helical imaging w as performed apices through the symphysis with multiplanar reconstructions. IV CONTRAST: 100 mL Omnipaque 350 GI CONTRAST: None. CT imaging performed at this location utilizes radiation dose optimization techniques which include one or more of the followin-D MIP and 3-D volume rendering reconstructions of the thoracoabdominal aorta reviewed. -Automated exposure control -Adjustment of the mA and/or kV according to pat ient size -Use of iterative reconstruction technique CT Radiation Dose DLP 1517.88 mGy-cm FINDINGS: CHEST: THORACIC AORTA: The thoracic aorta is normal in caliber and appearance. No dissection or aneurysm. Normal appearance to the great vessels arising from the arch of the aorta. LUNGS AND PLEURA: Emphysemat ous change both lungs. No infiltrates or pulmonary nodules. No pleural abnormalities. MEDIASTINUM: No mediastinal adenopathy. The cent ral airway is clear. MUSCULOSKELETAL: The skeleton is intact. ABDOMEN: ABDOMINAL AORTA: The abdomin al aorta is normal in caliber. Mild amount of calcified plaque. The SMA, celiac trunk and POLY are patent. There is a single artery to each kidney both of which are widely pat ent. Aortic bifurcation and iliac and common fem oral arteries widely patent. SOLID ORGANS: Previous sara cystectomy. Considering the arterial phase of enhancement the pancreas, kidneys, adrenals and liver appear normal. BOWEL: Moderate to large div erticulum off the second portion the duodenum and another off the fourth portion of the duodenum.. The large and small bowel are otherwise normal. Appendix not identified. PERITONEUM: No free intraper itoneal fluid or air. Mesenteric vessels enhance normally. RETROPERITONEUM: No adenopathy. The IVC is anil l. PELVIS: No pelvic mass. The urinary bladder is n ormal. MUSCULOSKELETAL: The skeleton is intact. IMPRESSION: 1. Normal thoracoabdominal aorta no aneurysm or dissection. 2. Diffuse emphysematous change both lungs. 3. Moderate to large diverti culum second portion of the duodenum and another fourth portion of the duodenum. 4. Otherwise normal exam. END REPORT SL: [id number] Chest 2 views DX CHEST TWO VIEW 04/15/2018 [facility] INDICATION: 19 pain left jaw since yesterday. No injury. Headache for the past 2 days. Patient denies chest pain. COMPARISON: 12/14/2017 chest x-ray FINDINGS: The lungs are hany r. The pleura, cardiomediastinal silhouette and bony thorax are normal. IMPRESSION: Negative. END IMPRESSION SL: [id number] Chest 1view DX EXAM: XR CHEST 1 VIEW 12/14/2017 [facility] [place] [facility] edical DATE: 12/14/2017 7:07 AM CDT [facility] er INDICATION: - chest pain COMPARISON: None TECHNIQUE: AP chest FINDINGS: Lines and tubes: EKG leads and electrodes overli e portions of the chest. Lungs and pleura: No pulmonary or pleural based abnormality is identified. Heart and mediastinum: The h eart size is normal for technique. The mediastinal contours are normal. Bones: No acute bony abnormality is identified. IMPRESSION: No acute cardiopulmonary abnormalit y. Consultation Notes No Data Provided for This Section Discharge Summaries No Data Provided for This Section History and Physicals No Data Provided for This Section Vital Signs Vital Sign Value Date Comments Source Heart Rate 65 04/16/2018 [place] Respitory Rate 17 04/16/2018 [facility] Temperature Oral (F) 98.1 F 04/16/2018 [place] Systolic (mm Hg) 113 04/16/2018 [place] Diastolic (mm Hg) 59 04/16/2018 [place] Heart Rate 57 04/16/2018 [facility] Temperature Oral (F) 98.1 F 04/16/2018 [place] Systolic (mm Hg) 130 04/16/2018 [place] Diastolic (mm Hg) 73 04/16/2018 [facility] [place] Respitory Rate 18 04/16/2018 [place] Respitory Rate 18 04/16/2018 [facility] Heart Rate 60 04/16/2018 [facility] Temperature Oral (F) 97.9 F 04/16/2018 [place] Systolic (mm Hg) 116 04/16/2018 [place] Diastolic (mm Hg) 69 04/16/2018 [place] Height 175.26 cm 04/15/2018 [facility] BMI Calculated 26.7 04/15/2018 [facility] Weight 82 04/15/2018 [facility] Systolic (mm Hg) 128 12/14/2017 [facility] dical Center Diastolic (mm Hg) 73 12/14/2017 [facility] Temperature Oral (F) 97.7 F 12/14/2017 [facility] Respitory Rate 20 12/14/2017 [facility] Center Respitory Rate 18 12/14/2017 [facility] Center Systolic (mm Hg) 136 12/14/2017 [facility] dical Center Diastolic (mm Hg) 67 12/14/2017 [facility] BMI Calculated 26.64 12/14/2017 [facility] Center Weight 81.818 12/14/2017 [facility] Height 175.26 cm 12/14/2017 [facility] Respitory Rate 27 12/14/2017 [facility] Center Systolic (mm Hg) 120 12/14/2017 [facility] dical Center Diastolic (mm Hg) 66 12/14/2017 [facility] Temperature Oral (F) 97.6 F 12/14/2017 [facility] Temperature Oral (F) 97.8 F 12/14/2017 [facility] Height 180.34 cm 12/14/2017 [facility] BMI Calculated 25.16 12/14/2017 [facility] Weight 81.818 12/14/2017 [facility] Heart Rate 79 12/14/2017 [facility] Encounters Location Location Encounter Encounter Reason Attending ADM DC Stat us Source Details Type Number For Provider Date Date Visit [facility] [id number] [facility]/14 [facility] [id number] Miguel 04/15 04/16 [facility] Ajibade /2017 [facility] Procedures Procedure Code Date Perfomer Comments Source Appendectomy [id number] [facility] section [id number] [facility] Cholecystectomy [id number] [facility] Hysterectomy [id number] [facility] Assessment and Plan Assessment and Plan Date Source Extracted from:Title: Clinical Document 04/16/2018 [facility] Author: Mauricio Grijalva MD Date: 04/16/18 Cardiology Note Mauricio Grijalva MD, PA SUBJECTIVE: No new cardiac events. Vitals and Temp: Vitals Tmp(F) Pulse BP RR SpO2 FIO2 04/16 07:33 98.1 57 130/73 18 92 --- 04/16 03:19 97.9 60 116/69 18 94 --- 04/15 23:36 98.1 59 110/65 18 96 --- 04/15 19:20 97.9 59 107/67 18 95 --- 04/15 16:15 97.6 55 104/62 16 99 1.0L/m 24 Hr Tmax: 98.1F (36.72c) at 04/16 07:3 3 Vital Signs are the last 5 in the past 48 hours. Scheduled Meds (5): 04/15/18 NIFEdipine (Procardia XL 90 mg oral tablet, extended release) 60 mg PO Daily 04/16/18 aspirin (aspirin 325 mg tablet, enteric coated) 325 mg PO Daily 04/15/18 nicotine 21 mg TOP Daily 04/15/18 pantoprazole (Protonix) 40 mg IVP Daily 04/15/18 sodium chloride (Saline Flush 0.9%) 10 ml IVP Q12H Continuous Infusions: None Labs (Last four charted values) WBC 3.9 (SEP 14) 4.9 (SEP 13) Hgb 13.5 (SEP 14) 15.2 (SEP 13) Hct 38.9 (SEP 14) 45.3 (SEP 13) Plt 133 (SEP 14) 163 (SEP 13) Na 142 (SEP 14) H 146 (SEP 13) K 4.5 (SEP 14) 4.0 (SEP 13) CO2 31 (SEP 14) 28 (SEP 13) Cl 105 (SEP 14) H 110 (SEP 13) Cr 1.15 (SEP 14) 0.79 (SEP 13) BUN 15 (SEP 14) 13 (SEP 13) Glucose Random H 100 (APR 14) 89 (APR 13) Mg 2.3 (APR 15) Phos 3.7 (APR 15) Ca 8.6 (APR 14) 9.6 (APR 13) Troponin <0.02 (APR 14 ) <0.02 (APR 13) <0.02 (APR 15) <0.02 (APR 13) Total CK 109 (APR 15) EXAM: Good BP control; NSR; afebrile Head: normocephalic and atraumatic Neck: no carotid bruit; no JVD CV: Regular; -S3; no significant murmurs Lungs: Clear; no wheezing; good air entry Abd: soft and no organomegaly; + bowel sounds Ext: no CCE; good pulses distally Neuro: nonfocal; oriented *3 Psych: appropriate ASSESSMENT: Atypical chest pain Negative cardiac enzyme Negative outpatient nuclear stress test approximately 2 weeks ago according to her Unremarkable echocardiogram with preserv ed EF of 55% and no significant valve disease PLAN: No further cardiac workup is planned at this time. 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 Extracted from:Title: Damián Arreola Author: Miguel Steel MD Date: 04/15/18 Impression and Plan IMPRESSION: 1. Left jaw pain, rule out ACS/angina equivalent 2. Epigastric discomfort 3. Accelerated hypertension 4. Hypernatremia 5. Chronic tobacco abuse PLAN: 1. Patient will be admitted for observation to rule out ACS 2. Continue to cycle cardiac enzymes 3 3. Continue with aspirin 4. Pain control and antiemetic 5. Cardiology consulted for further risk stratification 6. Aggressive blood pressure control 7. Pain control and antiemetic 8. GI and DVT prophylaxis Extracted from:Title: History and Physical 12/14/2017 [facility] Author: Renea Kelly MD Date: 12/14/17 57 yo w/o known pmh admitted for evaluat ion of chest pain most likely s/t costochondritis. 1.Costochondritis ekg unremarkable. telemetry monitoring. troponin neg x1. trend troponin. monitor electrolytes and replace as needed. ibuprofen prn. Ordered: Discharge Patient -Detailed, 12/14/17 15 :38:00 CDT, Home, Continue IV access No, ONCE, NOW SCDs home on discharge Plan of Care No Data Provided for This Section Social History Social History Date Source Social History TypeResponse 08/19/2013 [facility] Substance Abuse IV drug use: No. Alcohol Past, Previous treatment: None. Smoking Status Current some day smoker; Exposure to Tob acco Smoke None; Cigarette Smoking Last 365 Days No; Reg Smoking Cessation Counseling Yes entered on: 12/14/17 Social History TypeResponse 08/19/2013 [facility] Substance Abuse IV drug use: No. Alcohol Past, Previous treatment: None. Smoking Status Former smoker; Type: Cigarettes; Ready t o change: Yes; Lives with someone who smokes; Cigarette Smoking Last 365 Days Yes; Reg Smoking Cessation Counseling No; Tobacco use per day: 10; entered on: 04/15/18 Family History No Data Provided for This Section Advance Directives No Data Provided for This Section Functional Status No Data Provided for This Section
--- OUTSIDE RECORDS SUMMARY | 2020-01-01 20:30 | XMS REPORT ---
:1960 Author Organization eClinicalWorks Care Team Providers Name Role Phone Prashant Villa Provider Role Unavailable Allergies No Known Allergies Problems Problem Type Condition Code Onset Dates Condition Statu s Problem Tobacco use disorder F17.200 Active Problem Essential hypertension I10 Activ e Problem Mixed hyperlipidemia E78.2 Active Problem Moderate persistent asthma with J45.41 Active exacerbation Medications No Known Medications Results No Known Results Summary Purpose eClinicalWorks Submission
--- OUTSIDE RECORDS SUMMARY | 2020-01-01 20:30 | XMS REPORT ---
:1960 Author Organization eClinicalWorks Care Team Providers Name Role Phone Prashant Villa Provider Role Unavailable Allergies No Known Allergies Problems Problem Type Condition Code Onset Dates Condition Statu s Problem Tobacco use disorder F17.200 Active Problem Essential hypertension I10 Activ e Problem Mixed hyperlipidemia E78.2 Active Problem Moderate persistent asthma with J45.41 Active exacerbation Medications Medication Code Code Instructions Start End Date Status Dosage System Date Vitamin D-1000 [facility] 01632733490 25 MCG (1000 UT) December 07, Acti ve [address] Orally Once a 2019 Results No Known Results Summary Purpose eClinicalWorks Submission
--- OUTSIDE RECORDS SUMMARY | 2020-01-01 20:30 | XMS REPORT ---
:1960 Author Organization eClinicalWorks Care Team Providers Name Role Phone Prashant Villa Provider Role Unavailable Allergies, Adverse Reactions, Alerts Substance Reaction Event Type Soma Itch Drug Allergy Morphine Sulfate Itch Drug Allergy Bactrim Itch Drug Allergy Problems Problem Type Condition Code Onset Dates Condition Statu s Assessment Elevated MCV R71.8 Active Assessment Prediabetes R73.03 Active Assessment Mixed hyperlipidemia E78.2 Active Assessment Family history of heart disease Z82.49 Active Assessment Family history of diabetes mellitus Z83.3 Active Assessment Tobacco abuse counseling Z71.6 Act osvaldo Problem Tobacco use disorder F17.200 Active Problem Essential hypertension I10 Activ e Problem Mixed hyperlipidemia E78.2 Active Assessment Essential hypertension I10 Activ e Assessment Tobacco use disorder F17.200 Active Problem Moderate persistent asthma with J45.41 Active exacerbation Medications Medication Code Code Instructions Start End Status Dosage System Date Date Symbicort [facility] 53665106458 160-4.5 MCG/ACT Active 2 puffs Inhalation Twice a day Promethazine HCl [facility] 92249014165 6.25 MG/5ML Active 10 ml as Orally every 6 needed hrs Lisinopril-[place] ND 98222039197 20-25 MG Orally Act osvaldo 1 tablet chlorothiazide Once a day Simvastatin ND 24784081603 5 MG Orally November Active 1 ta blet Once a day 2019 in the evening Results No Known Results Summary Purpose eClinicalWorks Submission
--- OUTSIDE RECORDS SUMMARY | 2020-01-01 20:30 | XMS REPORT ---
:1960 Author Organization eClinicalWorks Care Team Providers Name Role Phone Prashant Villa Provider Role Unavailable Allergies, Adverse Reactions, Alerts Substance Reaction Event Type Soma Itch Drug Allergy Morphine Sulfate Itch Drug Allergy Bactrim Itch Drug Allergy Problems Problem Type Condition Code Onset Dates Condition Statu s Assessment Essential hypertension I10 Activ e Assessment Tobacco use disorder F17.200 Active Problem Tobacco use disorder F17.200 Active Problem Moderate persistent asthma with J45.41 Active exacerbation Problem Essential hypertension I10 Activ e Assessment Screening mammogram, encounter for Z12.31 Active Assessment Encounter for screening for other Z11.59 Active viral diseases Assessment Encounter for wellness examination Z00.00 Active in adult Medications Medication Code Code Instructions Start End Status Dosage System Date Date Symbicort [facility] 91295430828 160-4.5 Active 2 puffs MCG/ACT Inhalation Twice a day Promethazine HCl [facility] 90350613658 6.25 MG/5ML Active 10 ml as Orally every 6 needed hrs Lisinopril-Hydrochloro [facility] 60471390561 20-25 MG November Acti ve 1 tablet thiazide Orally Once a 2019 Hydrochlorothiazide [facility] 49614773408 50 MG Orally Act osvaldo 1/2 Once a day tablet Results No Known Results Summary Purpose eClinicalWorks Submission
--- OUTSIDE RECORDS SUMMARY | 2020-01-01 20:30 | XMS REPORT ---
:1960 Author Organization eClinicalWorks Care Team Providers Name Role Phone Prashant Villa Provider Role Unavailable Allergies, Adverse Reactions, Alerts Substance Reaction Event Type Soma Itch Drug Allergy Morphine Sulfate Itch Drug Allergy Bactrim Itch Drug Allergy Problems Problem Type Condition Code Onset Dates Condition Statu s Assessment Moderate persistent asthma with J45.41 Active exacerbation Problem Moderate persistent asthma with J45.41 Active exacerbation Assessment Tobacco use disor-delliv O99.334 Act osvaldo Assessment Upper respiratory tract infection, J06.9 Active unspecified type Assessment Acute non-recurrent maxillary J01.00 Active sinusitis Medications Medication Code Code Instructions Start End Date Status Dosage System Date PredniSONE [facility] 46580348294 20 MG Orally October Active 2 ta blet Once a day 2019 Symbicort [facility] 53533210089 160-4.5 MCG/ACT Active 2 puffs Inhalation Twice a day Azithromycin [facility] 87420263151 250 MG Orally October Active 2 tablets Once a day 2019 on the first day, then 1 tablet daily for 4 days Promethazine HCl [facility] 34557213461 6.25 MG/5ML Active 10 ml as Orally every 6 needed hrs Results No Known Results Summary Purpose eClinicalWorks Submission
--- OUTSIDE RECORDS SUMMARY | 2020-01-01 20:30 | XMS REPORT ---
:1960 Author Organization eClinicalWorks Care Team Providers Name Role Phone Prashant Villa Provider Role Unavailable Allergies, Adverse Reactions, Alerts Substance Reaction Event Type Soma Itch Drug Allergy Morphine Sulfate Itch Drug Allergy Bactrim Itch Drug Allergy Problems Problem Type Condition Code Onset Dates Condition Statu s Assessment Mixed hyperlipidemia E78.2 Active Assessment Tobacco use disorder F17.200 Active Assessment Prediabetes R73.03 Active Problem Tobacco use disorder F17.200 Active Problem Essential hypertension I10 Activ e Problem Mixed hyperlipidemia E78.2 Active Assessment Bilateral leg cramps R25.2 Active Assessment Essential hypertension I10 Activ e Problem Moderate persistent asthma with J45.41 Active exacerbation Assessment Family history of heart disease Z82.49 Active Assessment Family history of diabetes mellitus Z83.3 Active Assessment Tobacco abuse counseling Z71.6 Act osvaldo Assessment Fatigue, unspecified type R53.83 Ac tive Assessment Elevated MCV R71.8 Active Medications Medication Code Code Instructions Start End Status Dosage System Date Date Lisinopril-Hydr ND 70290554666 20-25 MG Orally Acti ve 1 tablet ochlorothiazide Once a day Symbicort ND 87815893896 160-4.5 MCG/ACT Active 2 puffs Inhalation Twice a day Simvastatin ND 34679863445 5 MG Orally Inactive 1 t ablet Once a day in the evening Promethazine [facility] 45823121039 6.25 MG/5ML Active 10 ml as HCl Orally every 6 needed hrs Results No Known Results Summary Purpose eClinicalWorks Submission
--- OUTSIDE RECORDS SUMMARY | 2020-01-01 20:30 | XMS REPORT ---
:1960 [facility] t Address [address] [place] [address] Care Team Providers Name Role Phone Bernarda Steel Attending Clinician Martha Kelly Attending Clinician Bernarda Steel Admitting Clinician Martha Kelly Admitting Clinician Problems Condition Condition Condition Status Onset Resolution Last Treating Co mments Source Name Details Category Date Date Treatment Clinician Date HIGH BLOOD Diagnosis Active 2018-04-15 Memoria PRESSURE 04-15 11:24:00 l HIGH 00:00: [place] BLOOD 00 PRESSURE Active 04/15/2018 [facility] [place] ACS Diagnosis Active 2018-04-16 Mem oria 04-15 17:32:00 l ACS 00:00: [place] 00 [facility]/2018 [facility] Diagnosis Active 2017-12-14 MH 14 09:29:00 [place] CARDAIC 00:00: Medical 00 Center Active 12/14/2017 [facility] CHEST PAIN Diagnosis Active 2017-12-18 12-14 15:17:00 [place] CHEST 00:00: Medical PAIN 00 Center Active 12/14/2017 [facility] CHRISTY Diagnosis Active 2017-12-14 BILLING 12-14 16:36:00 [place] 00:00: Medical CHRISTY 00 Center BILLING Active 12/14/2017 [facility] Moderate Moderate Problem [facility] persistent [facility] - asthma asthma Memoria with with l exacerbati exacerbati Ou tpati on on ent Clinics Essential Essential Problem Active [facility] hypertensi hypertensi Viji kes - on on Memoria l Outpati ent Clinics Tobacco Tobacco Problem Active [facility] use [facility] disorder disorder [facility] Mixed Mixed Problem Active [facility] hyperlipid hyperlipid Viji kes - emia rachelle Luiz l [facility] Epigastric Problem 2018-11-03 M H pain 13:22:34 [place] Epigastric pain 9 [place] Essential Problem 2018-11-03 (primary) 13:22:34 Irina an hypertensi d on Essential (primary) hypertensi on 11/03/2018 [facility] Hyperosmol Problem 2018-11-03 M H ality and 13:22:34 Irina an hypernatre d susi Hyperosmol ality and hypernatre susi 11/03/2018 [place] Other Problem 2018-11-03 chest pain 13:22:34 [place] Other d chest pain 11/03/2018 [facility] Headache Problem 2018-11-03 13:22:34 [place] Headache d 11/03/2018 [place] Nausea Problem 2018-11-03 13:22:34 [place] Nausea d 11/03/2018 [place] Pain in Problem 2018-11-03 left arm 13:22:34 [place] Pain in d left arm 11/03/2018 [facility] Diverticul Problem 2018-11-03 M H osis of 13:22:34 [place] small d intestine Diverticul without osis of perforatio small n or intestine abscess without without perforatio bleeding n or abscess without bleeding 11/03/2018 [facility] Nicotine Problem 2018-11-03 dependence 13:22:34 [place] , Nicotine d cigarettes dependence , , uncomplica cigarettes yariel , uncomplica yariel 11/03/2018 [facility] Family Problem 2018-11-03 history of 13:22:34 [place] ischemic Family d heart history of disease ischemic and other heart diseases 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 11/03/2018 [facility] Hypertensi Problem Resolve 2018-11-03 ve d 13:22:34 [place] disorder, Medical systemic Hypertensi Cent er, arterial ve MH (disorder) disorder, [place] systemic d arterial (disorder) Resolved Problem 11/03/2018 [facility] Smoker Problem Resolve 2018-11-03 (finding) d 13:22:34 [place] Smoker Medical (finding) [place], [place] Resolved d Problem 11/03/2018 [facility], [place] CHEST Diagnosis Active 2017-12-18 PAIN, 15:17:00 [place] UNSPECIFIE CHEST Medic al D PAIN, Center UNSPECIFIE D Active [facility] ACUTE Diagnosis Active 2018-04-16 Mem oria ISCHEMIC 17:32:00 l HEART ACUTE [place] DISEASE, ISCHEMIC UNSPECIFIE HEART DISEASE, UNSPECIFIE Active [facility] Jaw pain Problem 2018-11-03 2018-11-03 04-21 13:22:34 13:22:34 [place] Jaw pain 04:15: d 39 04/21/2018 11/03/2018 [facility] Allergies, Adverse Reactions, Alerts Allergy Allergy Status Severity Reaction(s) Onset Inactive Treating Comm ents Source Name Type Date Date Clinician Soma Adverse Active Itch [facility] Morphine Adverse Active Itch [facility] Sulfate Reaction [facility] Bactrim Adverse Active Itch [facility] Clinics Soma Soma Active Memoria l [facility] Bactrim Bactrim Active Memoria [facility] Social History Social Habit Start Date Stop Date Quantity Comments Source Social History 2013[facility]08[facility]19 [facility] Medications Ordered Filled Start Stop Current Ordering Indication Dosage Frequency Signature Comments Components Source Medication Medication Date Date Medication? Clinician (SIG) Name Name Vitamin Vitamin Yes Prashant [address] D-1000 Max D-1000 Max 5-07 [place] V[place] [facility]es - [facility] St 00:00: Memoria 00 l [facility] Clin[facility] Aspirin 325 No Notes: (Do MH MG Enteric 04-16 Not Crush) [place] Coated 14:00: Do not d Tablet 00 crush or chew. Saline No Notes: Flush 0.9% 04-16 (Same as: [place] 02:00: BD d 00 Posiflush) NIFEdipine Yes 90 mg = 1 MH 90 mg oral 04-15 tab, PO, Irina an tablet, 20:53: Daily, 0 d extended 00 Refill(s) release Protonix No Notes: For 9-13 IV push [place] 20:05: reconstitu d 00 te with 10 ml 0.9% sodium chloride and push over 2 minutes. (Same as: Protonix) Nicotine No Notes: 04-15 (Same as: [place] 19:34: Habitrol) d 00 "Remove old patch before applicatio n of new patch" WASTE: F/P - P Waste Black; E - P Waste Black 24 HR No Notes: Nifedipine 04-15 (Same as: [place] 90 MG 19:32: Adalat CC, d Extended 00 Procardia Release XL) Give Tablet on empty [Procardia] stomach. Take 1 hour before or 2 hours after meal; "Avoid grapefruit and grapefruit juice". Do not crush Hydralazine No Notes: 04-15 (Same as: [place] 18:45: Apresoline d 00 ) Push over 5 minutes Saline No Notes: Flush 0.9% 04-15 (Same as: [place] 18:45: BD d 00 Posiflush) Ondansetron No Notes: 04-15 (Same as: [place] 18:45: Zofran) d Acetaminoph No Notes: Do M H en 04-15 not exceed [place] 18:45: 4 gm/day. d 00 (Same as: Tylenol) Acetaminoph No Notes: en 325 MG / 04-15 (Same as: [place] Hydrocodone 18:45: [place] d Bitartrate 00 325/5) Do 5 MG Oral not exceed Tablet 4gm/day of acetaminop hen. Morphine No Notes: 04-15 (Same [place] 18:45: as:MORPhin d 00 e Sulfate) metoprolol No Notes: tartrate 04-15 (Same as: [place] 18:45: Lopressor) d 00 Nitroglycer No Notes: in 04-15 (Same [place] 18:45: as:Nitroqu d 00 ick, Nitrostat) "Do Not Crush" Sublingual tablet Lisinopril No Notes: 04-15 (Same as: [place] 18:45: Prinivil, d 00 Zestril) Dilaudid 2018-0 No 1 mg, 04-15 Route: [place] 18:32: IVP, ONCE, d 00 Dosing Weight 82, kg, Priority: STAT, Start date: 04/15/18 13:32:00 CDT, Stop date: 04/15/18 13:32:00 CDT Nitroglycer 2018-0 No 1 inch, in 0.02 04-15 Route: [place] MG/MG 17:32: TOP, Drug d Topical 00 Form: Ointment OINT, Dosing Weight 82, kg, ONCE, Start date: 04/15/18 12:32:00 CDT, Stop date: 04/15/18 12:32:00 CDT Ondansetron 2017-0 No 4 mg, 04-15 Route: [place] 17:31: IVP, Drug d 00 form: INJ, ONCE, Dosing Weight 82, kg, Priority: STAT, Start date: 04/15/18 12:31:00 CDT, Stop date: 04/15/18 12:31:00 CDT Morphine 2018-0 No 4 mg, 04-15 Route: [place] 17:31: IVP, ONCE, d 00 Dosing Weight 82, kg, Priority: STAT, Start date: 04/15/18 12:31:00 CDT, Stop date: 04/15/18 12:31:00 CDT Aspirin 2018-0 No Notes: 04-15 Take with [place] 15:28: food. d 00 Saline 2018-0 No Notes: Flush 0.9% 04-15 (Same as: [place] 14:54: BD d 00 Posiflush) Protonix 2018-0 No Notes: 5-15 Tablet [place] 12:30: should not Medical 00 be chewed Center or crushed. (Same as: Protonix) Ibuprofen 2018-0 No 600 mg, 1 5-14 tab, [place] 20:47: Route: PO, Medical 00 Drug form: Center TAB, Q6H, Dosing Weight 81.818, kg, PRN Pain Score 1-3, Start date: 12/14/17 15:47:00 CDT, Duration: 30 day, Stop date: 01/13/18 15:46:00 CDT Morphine 2018-0 No 4 mg, 5-14 Route: [place] 12:50: IVP, ONCE, Medical 00 Dosing Center Weight 81.818, kg, Priority: STAT, Start date: 12/14/17 7:50:00 CDT, Stop date: 12/14/17 7:50:00 CDT Nitroglycer 2017-0 No Notes: MH in 12-14 (Same [place] 12:30: as:Tridil) Medical 00 Final Center conc = 0.4 mg/ml. Premix bottle. Nitroglycer 0 No 50 mg, 250 MH in - mL, Rate: [place] 12:29: Titrate, Medical 00 Start Center Dose: 10 microgram/ min, Titration: 10 microgram/ min every 5 minutes, Goal(s): Chest pain and SBP between 100 - 150 mmHg, Max Dose: 200 mcg/min, Route: IV, Dosing Weight 81.818 kg, Total Volume: 250, Start date: 12/01... Morphine 2017-0 No 4 mg, 12-14 Route: [place] 12:07: IVP, ONCE, Medical 00 kg, Center Priority: STAT, Start date: 12/14/17 7:07:00 CDT, Stop date: 12/14/17 7:07:00 CDT Ondansetron 2017-0 No 4 mg, 12-14 Route: [place] 12:07: IVP, ONCE, Medical 00 kg, Center Priority: STAT, Start date: 12/14/17 7:07:00 CDT, Stop date: 12/14/17 7:07:00 CDT Saline 2017-0 No Notes: Flush 0.9% 12-14 Same as: [place] 12:07: Medical 00 Posiflush Center Sterile Vital Signs Vital Name Observation Time Observation Value Comments Source Heart Rate 2018-04-16 16:43:00 MH Irina and Respitory Rate 2018-04-16 16:43:00 MH [place] Temperature Oral (F) 2018-04-16 16:43:00 98.1 F [place] Systolic (mm Hg) 2018-04-16 16:43:00 MH [place] Diastolic (mm Hg) 2018-04-16 16:43:00 MH [place] Heart Rate 2018-04-16 12:33:00 MH Ir[place] and Temperature Oral (F) 2018-04-16 12:33:00 98.1 F [place] Systolic (mm Hg) 2018-04-16 12:33:00 [place] Diastolic (mm Hg) 2018-04-16 12:33:00 MH [place] Respitory Rate 2018-04-16 12:33:00 MH [place] Respitory Rate 2018-04-16 08:19:00 MH [place] Heart Rate 2018-04-16 08:19:00 MH Irina and Temperature Oral (F) 2018-04-16 08:19:00 97.9 F MH [place] Systolic (mm Hg) 2018-04-16 08:19:00 [place] Diastolic (mm Hg) 2018-04-16 08:19:00 MH [place] Height 2018-04-15 14:08:00 175.26 cm MH [place] and BMI Calculated 2018-04-15 14:08:00 MH [place] Weight 2018-04-15 14:08:00 MH Ir[place] and Systolic (mm Hg) 2017-12-14 20:44:00 [facility] Diastolic (mm Hg) 2017-12-14 20:44:00 [facility] Temperature Oral (F) 2017-12-14 20:44:00 97.7 F [facility] Respitory Rate 2017-12-14 20:44:00 [facility] Respitory Rate 2017-12-14 15:33:00 [facility] Systolic (mm Hg) 2017-12-14 15:33:00 [facility] Diastolic (mm Hg) 2017-12-14 15:33:00 [facility] BMI Calculated 2017-12-14 15:23:00 [facility] Weight 2017-12-14 15:23:00 [facility] Height 2017-12-14 15:23:00 175.26 cm [facility] Respitory Rate 2017-12-14 15:03:00 [facility] Systolic (mm Hg) 2017-12-14 15:03:00 T [facility] Diastolic (mm Hg) 2017-12-14 15:03:00 [facility] Temperature Oral (F) 2017-12-14 14:20:00 97.6 F [facility] Temperature Oral (F) 2017-12-14 12:18:00 97.8 F [facility] Height 2017-12-14 12:02:00 180.34 cm [facility] BMI Calculated 2017-12-14 12:02:00 [facility] Weight 2017-12-14 12:02:00 [facility] Heart Rate 2017-12-14 12:02:00 [facility] Procedures Procedure Date / Time Performed Performing Clinician Sour e Appendectomy [facility], [facility] section [facility], [facility] Cholecystectomy [facility], [facility] Hysterectomy [facility], [facility] Encounters Start End Encounter Admission Attending Care Care Encounter Source Date/Time Date/Time Type Type Clinicians Facility Department ID 2019-12-13 2019-12-13 [facility] [id number] [facility] 13:27:00 13:27:00 t [facility] [employer] [facility] Family Medicine l Medicine Outpati ent Clinics 2019-12-08 2019-12-08 [facility] [id number] 08:07:00 08:07:00 t [facility] l Medicine Outpati ent Clinics 2019-12-07 2019-12-07 [facility] [id number] 13:00:00 13:00:00 t [facility] l Medicine Outpati ent Clinics 2019-11-24 2019-11-24 [facility] [id number] 09:15:00 09:15:00 t [facility] l Medicine Outpati ent Clinics 2019-11-04 2019-11-04 [facility] [id number] 09:00:00 09:00:00 t [facility] l Medicine Outpati ent Clinics 2019-10-13 2019-10-13 [facility] [id number] 14:30:00 14:30:00 t [facility] l Medicine Outpati ent Clinics 2018-04-15 2018-04-16 [facility] [id number] 14:01:00 18:30:00 n [place] 00 [facility] 2018-04-15 2018-04-16 Outpatient JON Steel [facility] [id number] 09:01:00 13:30:00 Miguel 00 [place] 2017-12-14 2017-12-14 Observatio [facility] [id number] 12:00:00 22:10:00 jorge Ornelas [facility] 2017-12-14 2017-12-14 [facility] [id number] 07:00:00 17:10:00 Renea Carpenter Results Test Description Test Time Test Comments Results Result Comments Source CARDIAC ENZYMES 2018-04-16 <0.02 [facility] 05:17:00 CHEM PANEL 2018-04-16 53 [facility] 05:17:00 CHEM PANEL 2018-04-16 105 [facility] 05:17:00 CHEM PANEL 2018-04-16 31 [facility] 05:17:00 CHEM PANEL 2018-04-16 4.5 [facility] 05:17:00 CHEM PANEL 2018-04-16 142 [facility] 05:17:00 CHEM PANEL 2018-04-16 15 [facility] 05:17:00 CHEM PANEL 2018-04-16 1.15 [facility] 05:17:00 CHEM PANEL 2018-04-16 8.6 [facility] 05:17:00 CHEM PANEL 2018-04-16 10.5 [facility] 05:17:00 CHEM PANEL 2018-04-16 100 [facility] 05:17:00 HEMATOLOGY 2018-04-16 38.9 [facility] 05:17:00 HEMATOLOGY 2018-04-16 13.5 [facility] 05:17:00 HEMATOLOGY 2018-04-16 9.0 [facility] 05:17:00 HEMATOLOGY 2018-04-16 133 [facility] 05:17:00 HEMATOLOGY 2018-04-16 34.7 [facility] 05:17:00 HEMATOLOGY 2018-04-16 96.7 [facility] 05:17:00 HEMATOLOGY 2018-04-16 12.9 [facility] 05:17:00 HEMATOLOGY 2018-04-16 05:17:00 Test Item Value Reference Range Interpretation Comme nts MCH (test code = MCH) 33.6 pg 27.0-31.0 [facility] CenterGgnwqkekORCMWKCWYM6646-04-24 05:17:003.9[facility] CenterPjfzziuhEISSDWNAEC1215-87-08 05:17:004.02[facility] CenterVxshubgqPREJPC0630-86-18 05:17:00 Test Item Value Reference Range Interpretation Comments VLDL (test code = VLDL) 44 1 GcejtnaaBTOVUT1870-45-64 05:17:0087 MbqaactwWQBSVX8334-82-22 05:17:0049 PhsvxgfbLQPPSP4354-40-66 05:17:37480QC HobhylbuQEBGUG1929-19-90 05:17:26139GT HykdsednCGVMYZ2937-41-81 05:17:00 Test Item Value Reference Range Interpretation Comments CHD Risk (test code = CHD Risk) 3.67 1 3.90-5.80 [place]CIAL [id number] 05:17:005.5 [place]CARDIAC ENZYMES 2018-04-15 23:18:00<0.02 [place]CHEM [id number] 18:29:000.7 [place]CHEM [id number] 18:29:0087 [place]CARDIAC PUTNKWX2880-13-51 17:49:00<0.02 [place]CARDIAC [id number] 15:16:37435KL [place] CARDIAC GZXDMBU9407-91-15 15:16:0064 [place]M [id number] 15:16:00 Test Item Value Reference Range Interpretation Comments A/G Ratio (test code = A/G Ratio) 1.2 1 0.7-1.6 [place] [id number] 15:16:003.3MH [place]CHEM [id number] 15:16:00 Test Item Value Reference Range Interpretation Comments B/C Ratio (test code = B/C Ratio) 16 1 6-25 [place]M [id number] 15:16:0012.0 [place] [id number] 15:16:0083 [place] [id number] 15:16:000.5 [place]CHEM PANEL 2018-04-15 15:16:0082 [place]CHEM [id number] 15:16:0028 [place] [id number] 15:16:0013 [place]CHEM [id number] 15:16:007.1MH [place] CHEM [id number] 15:16:009.6MH [place]CHEM [id number] 15:16:0028[facility] [id number] 15:16:004.0MH [place]CHEM [id number] 15:16:00 110MH [place]CHEM [id number] 15:16:46738LT[facility] CenterCHEM [id number] 15:16:000.79MH [place]CHEM [id number] 15:16:0013[facility] PAN[facility] 2018-04-15 15:16:0089[place] [facility]andCHEM [id number] 15:16:003.8[facility] CenterCHE[facility] NFMHF8055-11-02 15:16:[address].3[address] [facility] [address] [facility] HospitalCHEM [id number] 15:16:003.7[facility] CenterKktzvczeBCYNGEQSNYCYL3963-57-86 15:16:00Negative *NA*(04/15/18 10:16 AM)[facility] CenterKmefigidRJVSCDLXBD0214-66-22 15:16:004.9[facility] CenterSiavrnirPHPFIAORVS1114-08-53 15:16:00 15.2MScionhealthAlwqkiwuJIHVLDUKUO1296-09-63 15:16:004.61[facility] CenterTbbcjkdzBJOBXDBHHR9825-22-05 15:16:0033.6MScionhealthCcymytpeFNYQJCCQNN3894-60-89 15:16:0045.3MScionhealthlandHEMATOLOGY 2018-04-15 15:16:0098.2MScionhealthBplfnmlkIFSGTFFCKV8317-02-90 15:16:00 Test Item Value Reference Range Interpretation Comments MCH (test code = MCH) 33.0 pg 27.0-31.0 [facility] CenterAczqhknvCOKCYNRSBG3925-62-72 15:16:008.8[place] HospitalDyyribeqEVLKCFMVOJ6866-54-32 15:16:0012.6MScionhealthEzikkiteBITQRQEOOO3865-29-84 15:16:80435WG PearlandHEMATOLOGY 2018-04-15 15:16:0039.1MScionhealthJkdtkawgSVGRZFZLVE5229-50-07 15:16:002.5[facility] NBLDPPGUWW9194-69-71 15:16:0050.6MScionhealthEvvslduuFTPHCHGPIK3719-64-67 15:16:001.9[place] HospitalQlmbcnabATPMLMMXIL8207-03-88 15:16:002.5[facility] CenterEdqcgqncNXJSQYYLPO1885-71-06 15:16:[address] [facility] HospitalFdywiczbSDDBQXHSKD8005-11-89 15:16:000.7[facility] CenterVptljzbgAVTVKNHBHH2990-91-80 15:16:000.1M[address] [facility] Phillips HospitalCictubuvIYGKCUNRSV6228-72-58 15:16:000.3M[address] [facility] [address] P. Phillips HospitalCARDIAC ENZYMES 2017-12-14 18:17:00<0.02[facility] [id number] 12:22:00 Test Item Value Reference Range Interpretation Comments CK MB Index (test code = CK MB Index) 2.7 1 <=2.5 [facility] [id number] 12:22:00<0.02[facility] HospitalCARD[facility]AC QJNXIRZ1844-01-19 12:22:27[facility]ZZ[facility] CARDIAC WYJOVQL9809-07-49 12:22:003.[address] [place], [place] [address]CHEM HIQTN8310-08-46 12:22:0087[facility] HospitalCHEM [id number] 12:22:003.[address] [place], [place] [address]CHEM [id number] 12:22:0078[facility] HospitalCHEM PANEL 2017-12-14 12:22:0012[facility] HospitalCHEM [id number] 12:22:0024[facility] HospitalCHEM [id number] 12:22:003.[address] [place], [place] [address]CHEM [id number] 12:22:006.3M[facility] CampusCHEM [id number] 12:22:00 23[facility] HospitalCHEM [id number] 12:22:008.[address] [place] [address] CHEM [id number] 12:22:00 Test Item Value Reference Range Interpretation Comments A/G Ratio (test code = A/G Ratio) 1.0 1 0.7-1.6 [facility]CHE[facility] [id number] 12:22:0014.[address] [place] [address] CHEM [id number] 12:22:00 Test Item Value Reference Range Interpretation Comments B/C Ratio (test code = B/C Ratio) 22 1 6-25 [facility]CHE[facility] [id number] 12:22:000.[address] [place] [address] CHEM [id number] 12:22:51167WUMemorial Herm[facility] HospitalCHEM [id number] 12:22:36102GNMemorial Hermann Katy HospitalCHEM HOPRR6547-75-48 12:22:004.[address] [place], [place] [address]CHEM [id number] 12:22:000.76[facility] HospitalCHEM PANEL 2017-12-14 12:22:0017[facility] HospitalCHEM [id number] 12:22:24347GNMemorial Hermann Katy HospitalMwyyvwWFDXTXTUBV0905-05-42 12:22:000.4[facility] TLYKHHCBNU2403-20-79 12:22:[address] [place], [place] [address]GidfxoKCETBIGOJV1822-64-80 12:22:[address] [place], [place] [address]AuphdoAPVAECYXAG4852-46-14 12:22:0039.[address] [place], [place] [address]DazfdcEYSRDLVJXO6685-95-98 12:22:008.[address] [place], [place] [address]HEMATOLOGY 2017-12-14 12:22:002.7[facility] HospitalPexmxnLSVQYIZNQX8888-46-16 12:22:002.0[facility] HospitalMpqsapSKAPICMTHB5195-76-87 12:22:[address] [place] [address] IHZJJXJFCL4618-52-43 12:22:002.5[facility] HospitalTskpmxEDRBRNYUJC2647-26-44 12:22:[address] [place], [place] [address]SqolqcMPFQVZGLTY7567-08-72 12:22:[address] [place], [place] [address]GekpqqRMLANWWMSM0292-75-14 12:22:38008TEMemorial Hermann [facility]y HospitalHEMATOLOGY 2017-12-14 12:22:0013.0[facility] HospitalJivilpTWFIVLSCGY9237-54-34 12:22:00 Test Item Value Reference Range Interpretation Comments MCH (test code = MCH) 32.8 pg 27.0-31.0 [facility] HospitalJgbfqrYXHKEMHARI2874-62-88 12:22:[address] [place] [address] WJDMNYVRSX3002-84-97 12:22:0014.4[facility] HospitalElppdyGBVQTIWGEZ2197-66-99 12:22:0097.9[facility] HospitalRqzdxlDIZSRLFYNW0247-96-94 12:22:004.40[facility] HospitalLeqrjrGOCQRCKVBT8528-03-83 12:22:005.[address] [place] [address]
[2020-01-01] MEDS ORDERED: NA CHLORIDE 0.9% 1,000 ML ONE (21:41)
[2020-01-01 22:07] LABS: Absolute Lymphocytes (CBC) 1.8 K/uL (0.7-4.9); Basophils % 0.6 % (0-1.3); Hematocrit 40.4 % (36.0-45.0); Lymphocytes % 24.6 % (15.3-44.8); MPV 8.3 fL (7.6-11.3)
[2020-01-01 22:21] LABS: Potassium 3.6 mmol/L (3.5-5.1)
[2020-01-01] MEDS ORDERED: LORazepam 2 MG/ML VIAL ONE (22:48)
[2020-01-01] MEDS ORDERED: POTASSIUM CL SA 10 MEQ TAB PO ONE (22:56)
[2020-01-02 00:50] VITALS: TEMP 97.5; O2SAT 99
[2020-01-02 00:52] VITALS: BP 125/70
--- NOTE | 2020-01-02 19:30 | EDPHYS ---
Physician Documentation [facility] Name: Rhona Ladd Age: 59 yrs Sex: Female : 1960 Arrival Date: 01/01/2020 Time: 20:24 Bed 19 Private MD: ED Physician Farhat Tovar HPI: 12/31 21:22 This 59 yrs old Female presents to ER via Wheelchair with complaints of Arm pkl Pain, Hand Pain. 21:22 The patient or guardian complains of Fingers cramping both hands. Onset: The pkl symptoms/episode began/occurred today. Historical: - Allergies: 20:34 Bactrim; ca1 20:34 Codeine; ca1 20:34 Soma; ca1 - PMHx: 20:34 Asthma; ca1 - PSHx: 20:34 Hysterectomy; Cholecystectomy; Appendectomy; ca1 - Immunization history:: Adult Immunizations up to date. - Social history:: Smoking status: Patient reports the use of cigarette tobacco products, denies chronic smoking, but will smoke occasionally. ROS: 21:22 Eyes: Negative for injury, pain, redness, and discharge, ENT: Negative for injury, pkl pain, and discharge, Neck: Negative for injury, pain, and swelling, Cardiovascular: Negative for chest pain, palpitations, and edema, Respiratory: Negative for shortness of breath, cough, wheezing, and pleuritic chest pain, Abdomen/GI: Negative for abdominal pain, nausea, vomiting, diarrhea, and constipation, Back: Negative for injury and pain, : Negative for injury, bleeding, discharge, and swelling, Skin: Negative for injury, rash, and discoloration, Neuro: Negative for headache, weakness, numbness, tingling, and seizure. 21:22 MS/extremity: Positive for fingers cramping both hands. Exam: 21:22 Head/Face: Normocephalic, atraumatic. Eyes: Pupils equal round and reactive to light, pkl extra-ocular motions intact. Lids and lashes normal. Conjunctiva and sclera are non-icteric and not injected. Cornea within normal limits. Periorbital areas with no swelling, redness, or edema. ENT: Nares patent. No nasal discharge, no septal abnormalities noted. Tympanic membranes are normal and external auditory canals are clear. Oropharynx with no redness, swelling, or masses, exudates, or evidence of obstruction, uvula midline. Mucous membranes moist. Neck: Trachea midline, no thyromegaly or masses palpated, and no cervical lymphadenopathy. Supple, full range of motion without nuchal rigidity, or vertebral point tenderness. No Meningismus. Chest/axilla: Normal chest wall appearance and motion. Nontender with no deformity. No lesions are appreciated. Cardiovascular: Regular rate and rhythm with a normal S1 and S2. No gallops, murmurs, or rubs. Normal PMI, no JVD. No pulse deficits. Respiratory: Lungs have equal breath sounds bilaterally, clear to auscultation and percussion. No rales, rhonchi or wheezes noted. No increased work of breathing, no retractions or nasal flaring. Abdomen/GI: Soft, non-tender, with normal bowel sounds. No distension or tympany. No guarding or rebound. No evidence of tenderness throughout. Back: No spinal tenderness. No costovertebral tenderness. Full range of motion. Skin: Warm, dry with normal turgor. Normal color with no rashes, no lesions, and no evidence of cellulitis. MS/ Extremity: Pulses equal, no cyanosis. Neurovascular intact. Full, normal range of motion. Neuro: Awake and alert, GCS 15, oriented to person, place, time, and situation. Cranial nerves II-XII grossly intact. Motor strength 5/5 in all extremities. Sensory grossly intact. Cerebellar exam normal. Normal gait. Vital Signs: 20:29 BP 130 / 74; Pulse 92; Resp 16 S; Temp 96.8(O); Pulse Ox 95% on R/A; Weight 77.11 kg ca1 (R); Height 5 ft. 9 in. (175.26 cm) (R); 21:15 BP 131 / 80; Pulse 75; Resp 17; Pulse Ox 98% ; Pain 0/10; rr5 22:30 BP 136 / 89; Pulse 90; Resp 17; Temp 97.5; Pulse Ox 99% ; rr5 23:30 BP 125 / 70; Pulse 85; Resp 17; Pulse Ox 99% on R/A; Pain 0/10; rr5 20:29 Body Mass Index 25.10 (77.11 kg, 175.26 cm) ca1 MDM: 21:16 Patient medically screened. pkl 23:42 Data reviewed: vital signs, nurses notes, lab test result(s). ED course: Patient said pkl she has cramps in the legs off and also.. 12/31 21:22 Order name: CBC with Diff; Complete Time: 22:39 pkl 12/31 21:22 Order name: Chem 7; Complete Time: 22:39 pkl Administered Medications: 21:58 Drug: NS 0.9% 1000 ml Route: IV; Rate: 125 ml/hr; Site: right forearm; rr5 22:51 Follow up: Rate change 500 bolus rr5 23:25 Follow up: Rate change 125 ml/hr rr5 01/01 00:25 Follow up: Response: No adverse reaction; IV Status: Order to discontinue infusion; IV rr5 Intake: 125ml 12/31 22:46 Drug: Ativan 1 mg Route: IVP; Site: right forearm; rr5 23:38 Follow up: Response: Marked relief of symptoms rr5 22:51 Drug: K-Dur 20 mEq Route: PO; rr5 23:38 Follow up: Response: No adverse reaction rr5 Disposition: 01/01/20 23:44 Discharged to Home. Impression: Cramps both hands and legs. - Condition is Stable. - Prescriptions for Diclofenac Sodium 75 mg Oral Tablet, Delayed Release (E.C.) - take 1 tablet by ORAL route 2 times per day; 20 tablet. - Medication Reconciliation Form, Thank You Letter, Antibiotic Education, Prescription Opioid Use form. - Follow up: Private Physician; When: 2 - 3 days; Reason: Re-evaluation by your physician. - Problem is new. - Symptoms have improved. Signatures: Dispatcher [employer] EDAL Farhat Tovar MD MD pkl Roque, Raymond RN RN rr5 Halie Quispe RN RN ca1 Corrections: (The following items were deleted from the chart) 01/01 00:25 12/31 23:44 01/01/2020 23:44 Discharged to Home. Impression: Cramps both hands and rr5 legs. Condition is Stable. Forms are Medication Reconciliation Form, Thank You Letter, Antibiotic Education, Prescription Opioid Use. Follow up: Private Physician; When: 2 - 3 days; Reason: Re-evaluation by your physician. Problem is new. Symptoms have improved. pkl
--- NOTE | 2020-01-02 19:30 | ER ---
Nurse's Notes [facility] Name: Rhona Ladd Age: 59 yrs Sex: Female : 1960 Arrival Date: 01/01/2020 Time: 20:24 Bed 19 Private MD: Diagnosis: Cramps both hands and legs Presentation: 12/31 20:29 Chief complaint: Patient states: Both hands pain since this afternoon. States, "it's ca1 like my muscles are constricting at it goes up to my forearms" Denies hx of arthirits. Coronavirus screen: Proceed with normal triage. Patient denies a cough. Patient denies shortness of breath or difficulty breathing. Patient denies measured and/or subjective temperature greater than 100.4F prior to today's visit. Patient denies travel on a cruise ship or to a country the [facility] [place]NOTE 2] currently lists as an affected area. Patient denies contact with known and/or suspected case of COVID-19. Ebola Screen: Patient negative for fever greater than or equal to 101.5 degrees Fahrenheit, and additional compatible Ebola Virus Disease symptoms Patient denies exposure to infectious person. Patient denies travel to an Ebola-affected area in the 21 days before illness onset. No symptoms or risks identified at this time. Initial Sepsis Screen: Does the patient meet any 2 criteria? No. Patient's initial sepsis screen is negative. Does the patient have a suspected source of infection? No. Patient's initial sepsis screen is negative. Risk Assessment: Do you want to hurt yourself or someone else? Patient reports no desire to harm self or others. Onset of symptoms was January 01, 2020. 20:29 Method Of Arrival: Wheelchair ca1 20:29 Acuity: CHON 3 ca1 Historical: - Allergies: 20:34 Bactrim; ca1 20:34 Codeine; ca1 20:34 Soma; ca1 - PMHx: 20:34 Asthma; ca1 - PSHx: 20:34 Hysterectomy; Cholecystectomy; Appendectomy; ca1 - Immunization history:: Adult Immunizations up to date. - Social history:: Smoking status: Patient reports the use of cigarette tobacco products, denies chronic smoking, but will smoke occasionally. Screenin:00 Abuse screen: Denies threats or abuse. Denies injuries from another. Nutritional rr5 screening: No deficits noted. Tuberculosis screening: No symptoms or risk factors identified. Fall Risk IV access (20 points). Total Mckenzie Fall Scale indicates No Risk (0-24 pts). Assessment: 21:15 General: Appears in no apparent distress. comfortable, Behavior is calm, cooperative, rr5 appropriate for age. 21:15 Pain: Denies pain. Neuro: Level of Consciousness is awake, alert, obeys commands, rr5 Oriented to person, place, time, situation, Appropriate for age. Cardiovascular: Denies chest pain, Capillary refill < 3 seconds Patient's skin is warm and dry. Respiratory: Airway is patent Respiratory effort is even, unlabored, Respiratory pattern is regular, symmetrical. GI: No signs and/or symptoms were reported involving the gastrointestinal system. : No signs and/or symptoms were reported regarding the genitourinary system. EENT: No signs and/or symptoms were reported regarding the EENT system. Derm: Skin is intact, is healthy with good turgor, Skin temperature is warm. Musculoskeletal: Capillary refill < 3 seconds, Reports stiffening of arms and lower legs cramping. 22:30 Reassessment: Patient appears in no apparent distress at this time. complaint of rr5 cramping on her lower legs. ED provider aware with order made and carried out. 22:50 Reassessment: verbal order by provider bolus NS 500 ml. rr5 23:34 Reassessment: Patient appears in no apparent distress at this time. Patient and/or rr5 family updated on plan of care and expected duration. Pain level reassessed. Patient is alert, oriented x 3, equal unlabored respirations, skin warm/dry/pink. resting eyes closed breathing spontaneously at room air. Patient states feeling better. Patient states symptoms have improved. 01/01 00:00 Reassessment: Patient appears in no apparent distress at this time. for discharge rr5 awaiting for her to come. 00:00 Reassessment: Patient is alert, oriented x 3, equal unlabored respirations, skin rr5 warm/dry/pink. Patient states feeling better. Patient states symptoms have improved. 00:25 Reassessment: Patient appears in no apparent distress at this time. Patient is alert, rr5 oriented x 3, equal unlabored respirations, skin warm/dry/pink. discharge instruction given and explained without complaints made. Patient states feeling better. Patient states symptoms have improved. Vital Signs: 12/31 20:29 BP 130 / 74; Pulse 92; Resp 16 S; Temp 96.8(O); Pulse Ox 95% on R/A; Weight 77.11 kg ca1 (R); Height 5 ft. 9 in. (175.26 cm) (R); 21:15 BP 131 / 80; Pulse 75; Resp 17; Pulse Ox 98% ; Pain 0/10; rr5 22:30 BP 136 / 89; Pulse 90; Resp 17; Temp 97.5; Pulse Ox 99% ; rr5 23:30 BP 125 / 70; Pulse 85; Resp 17; Pulse Ox 99% on R/A; Pain 0/10; rr5 20:29 Body Mass Index 25.10 (77.11 kg, 175.26 cm) ca1 ED Course: 20:24 Patient arrived in ED. ds1 20:33 Triage completed. ca1 20:34 Arm band placed on right wrist. ca1 21:14 Romario Martinez RN is Primary Nurse. rr5 21:16 Farhat Tovar MD is Attending Physician. pkl 21:55 Inserted saline lock: 20 gauge in right forearm, using aseptic technique. Blood rr5 collected. 22:00 Patient has correct armband on for positive identification. Bed in low position. Call rr5 light in reach. Pulse ox on. NIBP on. 23:38 No provider procedures requiring assistance completed. rr5 01/01 01:00 IV discontinued, intact, bleeding controlled, No redness/swelling at site. Pressure rr5 dressing applied. Administered Medications: 12/31 21:58 Drug: NS 0.9% 1000 ml Route: IV; Rate: 125 ml/hr; Site: right forearm; rr5 22:51 Follow up: Rate change 500 bolus rr5 23:25 Follow up: Rate change 125 ml/hr rr5 01/01 00:25 Follow up: Response: No adverse reaction; IV Status: Order to discontinue infusion; IV rr5 Intake: 125ml 12/31 22:46 Drug: Ativan 1 mg Route: IVP; Site: right forearm; rr5 23:38 Follow up: Response: Marked relief of symptoms rr5 22:51 Drug: K-Dur 20 mEq Route: PO; rr5 23:38 Follow up: Response: No adverse reaction rr5 Intake: 01/01 00:25 IV: 125ml; Total: 125ml. rr5 Outcome: 12/31 23:44 Discharge ordered by . sherwin 01/01 00:25 Patient left the ED. rr5 00:25 Discharged to home via wheelchair, with family. rr5 00:25 Condition: stable 00:25 Discharge instructions given to patient, Instructed on discharge instructions, follow up and referral plans. medication usage, Demonstrated understanding of instructions, follow-up care, medications, Prescriptions given X 1. Signatures: Farhat Tovar MD MD pkLashae Castillo ds1 Romario Martinez, RN RN rr5 Halie Quispe RN RN ca1
== END 2020-01-02 00:25 | disposition home or self-care (01) ==
LOC: ER 20:23
DX: R25.2 Cramp and spasm (principal); Z72.0 Tobacco use; Z88.1 Allergy status to other antibiotic agents; Z88.5 Allergy status to narcotic agent
CPT/HCPCS: 96361; 85025; 80048; 36415; 96374; 99284; J7030

== ENCOUNTER 2020-01-21 16:26 | Emergency (ER) | payer BC ==
--- OUTSIDE RECORDS SUMMARY | 2020-01-21 16:30 | XMS REPORT | Continuity of Care Document ---
:1960 Author Organization [employer] Care Team Providers Name Role Phone [employer] Unavailable Un available Problems Problem Status Onset Classification Date Comments Sourc e Date Reported Jaw pain 04/21/20 11/03/[address] HIGH BLOOD Active 04/15/20 [facility] PRESSURE 18 [place] ACS Active 04/15/20 [place] [id number] [place] CARDAIC Active 12/15/[address] CHEST PAIN Active 12/15/[address] CHRISTY BILLING Active 12/15/[address] Epigastric pain 11/03/2018 [place] Essential 11/03/2018 (primary) [place] hypertension Hyperosmolality 11/03/2018 and hypernatremia [place] Other chest pain 11/03/2018 [place] Headache 11/03/2018 [place] [facility] 11/03/2018 [facility] Diverticulosis of 11/03/2018 [facility] small intestine [place] without perforation or abscess without bleeding Nicotine 11/03/2018 dependence, [place] cigarettes, uncomplicated Family history of 11/03/2018 [facility] ischemic heart [place] and disease and other diseases of the circulatory system Hypertensive Resolved Problem 11/03/2018 [place] disorder, systemic [facility] Center, (disorder) [place] Smoker (finding) Resolved Problem 11/03/2018 [facility] CHEST PAIN, Active [facility] ACUTE ISCHEMIC Active Memor ial HEART DISEASE, Kamini nn UNSPECIFIE Medications Medication Details Route Status Patient Ordering Order Source Instructions Provider Date Aspirin 325 MG Notes: (Do Not Inactive H Enteric Coated Crush) Do not 2018 [place] Tablet crush or chew. Saline Flush Notes: (Same No Longer 0.9% as: BD Active 2017 [place] Posiflush) NIFEdipine 90 90 mg = 1 tab, Active mg oral tablet, PO, Daily, 0 2018 [place] extended Refill(s) release Protonix Notes: For IV No Longer push Active 2017 [place] reconstitute with 10 ml 0.9% sodium chloride and push over 2 minutes. (Same as: Protonix) Nicotine Notes: (Same No Longer as: Habitrol) Active 2017 [place] "Remove old patch before application of new [...] Notes: (Same No Longer as: Active 2017 [place] Apresoline) Push over 5 minutes Saline Flush Notes: (Same No Longer 0.9% as: BD Active 2017 [place] Posiflush) Ondansetron Notes: (Same No Longer as: Zofran) Active 2017 [place] Acetaminophen Notes: Do not No Longer exceed 4 Active 2017 [place] gm/day. (Same as: Tylenol) Acetaminophen Notes: (Same No Longer 325 MG / as: Kaplan Active 2017 [place] Hydrocodone 325/5) Do not Bitartrate 5 MG exceed 4gm/day Oral Tablet of acetaminophen. Morphine Notes: (Same No Longer as:MORPhine Active 2017 [place] Sulfate) metoprolol Notes: (Same Inactive tartrate as: Lopressor) 2017 [place] Nitroglycerin Notes: (Same No Longer as:Nitroquick, Active 2017 [place] Nitrostat) "Do Not Crush" Sublingual tablet Lisinopril Notes: (Same Inactive as: Prinivil, 2017 [place] Zestril) Dilaudid 1 mg, Route: Inactive IVP, ONCE, 2017 [place] Dosing Weight 82, kg, Priority: STAT, Start date: 04/15/18 13:32:00 CDT, Stop date: 04/15/18 13:32:00 CDT Nitroglycerin 1 inch, Route: Inactive 0.02 MG/MG TOP, Drug 2017 [place] Topical Form: OINT, Ointment Dosing Weight 82, kg, ONCE, Start date: 04/15/18 12:32:00 CDT, Stop date: 04/15/18 12:32:00 CDT Ondansetron 4 mg, Route: Inactive IVP, Drug 2017 [place] form: INJ, ONCE, Dosing Weight 82, kg, Priority: STAT, Start date: 04/15/18 12:31:00 CDT, Stop date: 04/15/18 12:31:00 CDT Morphine 4 mg, Route: Inactive IVP, ONCE, 2018 [place] Dosing Weight 82, kg, Priority: STAT, Start date: 04/15/18 12:31:00 CDT, Stop date: 04/15/18 12:31:00 CDT Aspirin Notes: Take Inactive with food. 2018 [place] Saline Flush Notes: (Same No Longer 0.9% as: BD Active 2017 [place] Posiflush) Protonix Notes: Tablet No Longer [place] [...] type Reported [place]oma Assertion Drug Active allergy [place] Bactrim Assertion Drug Active allergy [place] Immunizations No Data Provided for This Section Results Order Name Results Value Reference Date Interpretation Comments Alaina rce Range CARDIAC Troponin-I <0.02 0.00 - 04/16 ENZYMES 0.40 [place] CHEM PANEL eGFR 53 04/16 Result Comment: The [place] eGFR is calculated using the CKD-EPI formula. [...] Chloride Lvl 105 95 - 109 04/16 [place] CHEM PANEL CO2 31 24 - 32 04/16 [place] CHEM PANEL Potassium 4.5 3.5 - 5.1 04/16 MH Lvl /2017 [place] CHEM PANEL Sodium Lvl 142 135 - 145 04/16 [place] CHEM PANEL BUN 15 7 - 22 04/16 [place] CHEM PANEL Creatinine 1.15 0.50 - 04/16 MH Lvl 1.40 [place] CHEM PANEL Calcium Lvl 8.6 8.5 - 10.5 04/16 [place] CHEM PANEL AGAP 10.5 10.0 - 04/16 MH 20.0 [place] CHEM PANEL Glucose Lvl 100 70 - 99 04/16 [place] HEMATOLOGY Hct 38.9 36.0 - 04/16 MH 48.0 [place] HEMATOLOGY Hgb 13.5 12.0 - 04/16 MH 16.0 [place] HEMATOLOGY MPV 9.0 7.4 - 10.4 04/16 [place] HEMATOLOGY Platelet 133 133 - 450 04/16 [place] HEMATOLOGY MCHC 34.7 32.0 - 04/16 MH 36.0 [place] HEMATOLOGY MCV 96.7 80.0 - 04/16 MH 98.0 [place] HEMATOLOGY RDW 12.9 11.5 - 04/16 MH 14. [place] HEMATOLOGY MCH 33.6 27.0 - 04/16 MH 31.0 [place] HEMATOLOGY WBC 3.9 3.7 - 10.4 04/16 [place] HEMATOLOGY RBC 4.02 4.20 - 04/16 MH 5.40 [place] LIPIDS VLDL 44 04/16 [place] LIPIDS LDL 87 <=99 mg/dL 04/16 (Calculated) [place] LIPIDS HDL 49 >=61 mg/dL 04/16 [place] LIPIDS Chol 180 <=199 04/16 mg/dL [place] LIPIDS Trig 220 <=149 04/16 mg/dL [place] LIPIDS CHD Risk 3.67 3.90 - 04/16 MH 5.80 [place] SPECIAL Hgb A1C 5.5 <=5.6 % 04/16 CHEMISTRY /2017 [place] CARDIAC Troponin-I <0.02 0.00 - 09 MH ENZYMES 0.40 [place] CHEM PANEL Lactic Acid 0.7 0.5 - 2.2 09 MH Lvl /2018 [place] CHEM PANEL Lipase Lvl 87 73 - 393 04/15 MH [place] CARDIAC Troponin-I <0.02 0.00 - 09 MH ENZYMES 0.40 [place] CARDIAC Total CK 109 12 - 191 04/15 MH ENZYMES [place] CARDIAC proBNP 64 0 - 125 04/15 MH ENZYMES [place] CHEM PANEL A/G Ratio 1.2 0.7 - 1.6 09 MH [place] CHEM PANEL Globulin 3.3 2.7 - 4.2 04/15 MH [place] CHEM PANEL B/C Ratio 16 6 - 25 04/15 [place] CHEM PANEL AGAP 12.0 10.0 - 09 MH 20.0 /2017 [place] CHEM PANEL eGFR 83 04/15 Result Comment: The [place] eGFR is calculated using the CKD-EPI formula. [...] Bili Total 0.5 0.2 - 1.3 04/15 [place] CHEM PANEL Alk Phos 82 39 - 136 04/15 [place] CHEM PANEL ALT 28 0 - 65 04/15 [place] CHEM PANEL AST 13 0 - 37 04/15 [place] CHEM PANEL Total 7.1 6.4 - 8.4 04/15 Protein [place] CHEM PANEL Calcium Lvl 9.6 8.5 - 10.5 04/15 [place] CHEM PANEL CO2 28 24 - 32 04/15 [place] CHEM PANEL Potassium 4.0 3.5 - 5.1 04/15 MH Lvl /2017 [place] CHEM PANEL Chloride Lvl 110 95 - 109 04/15 [place] CHEM PANEL Sodium Lvl 146 135 - 145 04/15 [place] CHEM PANEL Creatinine 0.79 0.50 - 09 MH Lvl 1.40 [place] CHEM PANEL BUN 13 7 - 22 04/15 [place] CHEM PANEL Glucose Lvl 89 70 - 99 04/15 [place] CHEM PANEL Albumin Lvl 3.8 3.5 - 5.0 04/15 [place] CHEM PANEL Magnesium 2.3 1.8 - 2.4 04/15 MH Lvl [place] CHEM PANEL Phosphorus 3.7 2.5 - 4.5 04/15 [place] ENDOCRINOLOG S Preg Negative Negative 04/15 Y *NA* /2017 [place] (04/15/18 10:16 AM) HEMATOLOGY WBC 4.9 3.7 - 10.4 04/15 [place] HEMATOLOGY Hgb 15.2 12.0 - 04/15 MH 16.0 [place] HEMATOLOGY RBC 4.61 4.20 - 04/15 MH 5.40 [place] HEMATOLOGY MCHC 33.6 32.0 - 04/15 MH 36.0 [place] HEMATOLOGY Hct 45.3 36.0 - 04/15 MH 48.0 [place] HEMATOLOGY MCV 98.2 80.0 - 04/15 MH 98.0 [place] HEMATOLOGY MCH 33.0 27.0 - 04/15 MH 31.0 [place] HEMATOLOGY MPV 8.8 7.4 - 10.4 04/15 [place] HEMATOLOGY RDW 12.6 11.5 - 04/15 MH 14.5 [place] HEMATOLOGY Platelet 163 133 - 450 04/15 [place] HEMATOLOGY Lymphocytes 39.1 20.0 - 04/15 MH 40.0 [place] HEMATOLOGY Eosinophils 2.5 0.0 - 4.0 04/15 [place] HEMATOLOGY Segs 50.6 45.0 - 04/15 MH 75.0 [place] HEMATOLOGY Lymphocytes 1.9 1.0 - 5.5 04/15 # /2018 [place] HEMATOLOGY Neutrophils 2.5 1.5 - 8.1 04/15 # /2017 [place] HEMATOLOGY Monocytes 7.1 2.0 - 12.0 04/15 [place] HEMATOLOGY Basophils 0.7 0.0 - 1.0 04/15 [place] HEMATOLOGY Eosinophils 0.1 0.0 - 0.5 04/15 # /2017 [place] HEMATOLOGY Monocytes # 0.3 0.0 - 0.8 04/15 [place] CARDIAC Troponin-I <0.02 0.00 - 12/14 [facility] ENZYMES 0.40 [facility] CARDIAC CK MB Index 2.7 0.0 - 2.5 12/14 [facility] ENZYMES /2017 [facility] CARDIAC Troponin-I <0.02 0.00 - 12/14 [facility] ENZYMES 0.40 [facility] CARDIAC Total CK 119 12 - 191 12/14 [facility] /2017 [facility] CARDIAC CK MB 3.2 0.5 - 3.6 12/14 [facility] CHEM PANEL eGFR 87 12/14 [facility] Comment: The Medical eGFR is Center calculated [...] PANEL Globulin 3.1 2.7 - 4.2 12/14 [facility] CHEM PANEL Alk Phos 78 39 - 136 12/14 [facility] CHEM PANEL AST 12 0 - 37 12/14 2017 [facility] CHEM PANEL ALT 24 0 - 65 05 [place] [facility] CHEM PANEL Albumin Lvl 3.2 3.5 - 5.0 12/14 [place] [facility] CHEM PANEL Total 6.3 6.4 - 8.4 12/14 [facility] Protein /2017 [facility] CHEM PANEL CO2 23 24 - 32 05 [place] 2017 [facility] CHEM PANEL Calcium Lvl 8.9 8.5 - 10.5 12/14 [place] as /2017 [facility] CHEM PANEL A/G Ratio 1.0 0.7 - 1.6 12/14 [place] 2017 [facility] CHEM PANEL AGAP 14.1 10.0 - 05 [place] 20.0 [facility] CHEM PANEL B/C Ratio 22 6 - 25 12/[address] CHEM PANEL Bili Total 0.2 0.2 - 1.3 12/[address] CHEM PANEL Sodium Lvl 143 135 - 145 12/14 [facility]2017 [facility] CHEM PANEL Chloride Lvl 110 95 - 109 12/14 [place] [facility] CHEM PANEL Potassium 4.1 3.5 - 5.1 12/14 [place] Lvl /2017 [facility] CHEM PANEL Creatinine 0.76 0.50 - 12/14 [place] Lvl 1.40 /2017 [facility] CHEM PANEL BUN 17 7 - 22 12/[address] CHEM PANEL Glucose Lvl 101 70 - 99 12/[address] HEMATOLOGY Monocytes # 0.4 0.0 - 0.8 12/14 [place] [facility] HEMATOLOGY Eosinophils 0.1 0.0 - 0.5 12/14 [place] # /2017 [facility] HEMATOLOGY Segs 48.7 45.0 - 12/14 [place] 75.0 [facility] HEMATOLOGY Lymphocytes 39.8 20.0 - 12/14 [place] 40.0 2018 [facility] HEMATOLOGY Monocytes 8.3 2.0 - 12.0 12/14 [facility]2017 [facility] HEMATOLOGY Eosinophils 2.7 0.0 - 4.0 12/[place] /2018 [facility] HEMATOLOGY Lymphocytes 2.0 1.0 - 5.5 12/14 [place] # /2018 [facility] HEMATOLOGY Basophils 0.5 0.0 - 1.0 12/[address] HEMATOLOGY Segs-Bands # 2.5 1.5 - 8.1 12/14 [place] /2017 [facility] HEMATOLOGY MCHC 33.5 32.0 - 12/14 [place] 36.0 [facility] HEMATOLOGY MPV 9.2 7.4 - 10.4 12/14 [facility] HEMATOLOGY Platelet 133 133 - 450 12/14 [facility] HEMATOLOGY RDW 13.0 11.5 - 12/14 14.5 [facility] HEMATOLOGY MCH 32.8 27.0 - 12/14 [place] 31.0 [facility] HEMATOLOGY Hct 43.1 36.0 - 12/14 [facility] 48.0 [facility] HEMATOLOGY Hgb 14.4 12.0 - 12/14 [facility] 16.0 [facility] HEMATOLOGY MCV 97.9 80.0 - 12/14 [facility] 98.0 [facility] HEMATOLOGY RBC 4.40 4.20 - 12/14 [facility] 5.40 /2017 [facility] HEMATOLOGY WBC 5.1 3.7 - 10.4 12/14 [facility] Pathology Reports No Data Provided for This Section Diagnostic Reports Report Value Date Source Chest/Abd/Pelvis PROCEDURE: CTA CHEST ABDOMEN AND PELVIS WITH CONTRAST 04/15/2018 [facility] CTA CLINICAL INDICATION: Persist ent left jaw [...] 4. Otherwise normal exam. END REPORT SL: [id number] Chest 2 views DX CHEST TWO VIEW 04/15/2018 [facility] [place] [facility] INDICATION: 19 pain left jaw since yesterday. No injury. Headache for the past 2 days. Patient denies chest pain. COMPARISON: 12/14/2017 chest x-ray FINDINGS: The lungs are hany r. The pleura, cardiomediastinal silhouette and bony thorax are normal. IMPRESSION: Negative. END IMPRESSION SL: [id number] Chest 1view DX EXAM: XR CHEST 1 VIEW 12/14/2017 [facility] edical DATE: 12/14/2017 7:07 AM CDT [facility] INDICATION: - chest pain COMPARISON: None [...] Date Comments Source Heart Rate 65 04/16/2018 [place] Respitory Rate 17 04/16/2018 [facility] Temperature Oral (F) 98.1 F 04/16/2018 [place] Systolic (mm Hg) 113 04/16/2018 [place] Diastolic (mm Hg) 59 04/16/2018 [place] Heart Rate 57 04/16/2018 [facility] Temperature Oral (F) 98.1 F 04/16/2018 [place] Systolic (mm Hg) 130 04/16/2018 [place] Diastolic (mm Hg) 73 04/16/2018 [facility] [place] Respitory Rate 18 04/16/2018 [place] Respitory Rate 18 04/16/2018 [facility] Heart Rate 60 04/16/2018 [facility] Temperature Oral (F) 97.9 F 04/16/2018 [place] Systolic (mm Hg) 116 04/16/2018 [place] Diastolic (mm Hg) 69 04/16/2018 [place] Height 175.26 cm 04/15/2018 [facility] BMI Calculated 26.7 04/15/2018 [facility] Weight 82 04/15/2018 [facility] Systolic (mm Hg) 128 12/14/2017 [facility] Diastolic (mm Hg) 73 12/14/2017 [facility] Temperature Oral (F) 97.7 F 12/14/2017 [facility] Respitory Rate 20 12/14/2017 [facility] Respitory Rate 18 12/14/2017 [facility] Systolic (mm Hg) 136 12/14/2017 [facility] Diastolic (mm Hg) 67 12/14/2017 [facility] BMI Calculated 26.64 12/14/2017 [facility] Weight 81.818 12/14/2017 [facility] Height 175.26 cm 12/14/2017 [facility] Respitory Rate 27 12/14/2017 [facility] Systolic (mm Hg) 120 12/14/2017 [facility] Diastolic (mm Hg) 66 12/14/2017 [facility] Temperature Oral (F) 97.6 F 12/14/2017 [facility] Temperature Oral (F) 97.8 F 12/14/2017 [facility] Height 180.34 cm 12/14/2017 [facility] BMI Calculated 25.16 12/14/2017 [facility] Weight 81.818 12/14/2017 [facility] Heart Rate 79 12/14/2017 [facility] Encounters Location Location Encounter Encounter Reason Attending ADM DC Stat us Source Details Type Number For Provider Date Date Visit [facility] [id number] Ce[place] 12/14 [facility]2017 [facility] [id number] Miguel 04/15 04/16 [facility] Ajibade /2017 [facility] Procedures Procedure Code Date Perfomer Comments Source Appendectomy [id number] [facility] section [id number] [facility] Cholecystectomy [id number] [facility] Hysterectomy [id number] [facility] Assessment and Plan Assessment and Plan Date Source Extracted from:Title: Clinical Document 04/16/2018 [facility] Author: Mauricio Grijalva MD Date: [...] standpoint, the patient may follow with her flare worker at [facility] as outpatient. Extracted from:Title: Damián Arreola [...] prophylaxis Extracted from:Title: History and Physical 12/14/2017 [facility] Author: Renea Kelly MD Date: 12/14/17 [...] History Date Source Social History TypeResponse 08/19/2013 [facility] Substance Abuse IV drug use: No. Alcohol Past, Previous treatment: None. Smoking Status Current some day smoker; Exposure to Tob acco Smoke None; Cigarette Smoking Last 365 Days No; Reg Smoking Cessation Counseling Yes entered on: 12/14/17 Social History TypeResponse 08/19/2013 [facility] Substance Abuse IV drug use: [...]
--- OUTSIDE RECORDS SUMMARY | 2020-01-21 16:31 | XMS REPORT ---
[...] End Status Dosage System Date Date Symbicort [facility] 82341014275 160-4.5 Active 2 puffs MCG/ACT Inhalation Twice a day Promethazine HCl [facility] 05371577446 6.25 MG/5ML Active 10 ml as Orally every 6 needed hrs Lisinopril-Hydrochloro [facility] 09568968539 20-25 MG November Acti ve 1 tablet thiazide Orally Once a [address] [facility] 03934870531 50 MG Orally Act osvaldo 1/2 Once a day tablet Results No Known Results Summary Purpose [employer]ClinicalWorks Submission
--- OUTSIDE RECORDS SUMMARY | 2020-01-21 16:31 | XMS REPORT ---
[...] Date Status Dosage System Date Vitamin D-1000 [facility] [id number] 25 MCG (1000 [place]) December 07, Acti ve [address] Orally Once a 2019 Results No Known Results Summary Purpose [employer]ClinicalWorks Submission
--- OUTSIDE RECORDS SUMMARY | 2020-01-21 16:31 | XMS REPORT | Continuity of Care Document ---
:1960 Author Organization [facility] t Address [address] [place] [address] Care Team Providers Name Role Phone Bernarda Steel Attending Clinician Martha Kelly Attending Clinician Bernarda Steel Admitting Clinician Martha Kelly Admitting Clinician Problems Condition Condition Condition Status Onset Resolution Last Treating Co mments Source Name Details Category Date Date Treatment Clinician Date HIGH BLOOD Diagnosis Active 2018-04-15 Memoria PRESSURE 04-15 11:24:00 l HIGH 00:00: [place] BLOOD 00 PRESSURE Active 04/15/2018 [facility] ACS Diagnosis Active 2018-04-16 Mem oria 04-15 17:32:00 l ACS 00:00: [place] 00 Active 04/15/2018 [facility] CARDAIC Diagnosis Active 2017-12-14 Me moria 12-14 09:29:00 l CARDAIC 00:00: [place] 00 Active 12/14/2017 [facility] CHEST PAIN Diagnosis Active 2017-12-18 Memoria 12-14 15:17:00 l CHEST 00:00: [place] PAIN 00 Active 12/14/2017 [facility] CHRISTY Diagnosis Active 2017-12-14 Memoria BILLING 12-14 16:36:00 l 00:00: [place] CHRISTY 00 BILLING Active 12/14/2017 [facility] Moderate Moderate Problem Active [facility] persistent persistent [facility] - asthma asthma Memoria with with l exacerbati exacerbati Ou tpati on on ent Clinics Essential Essential Problem Active [facility] hypertensi hypertensi [facility] - on on Memoria l Outpati ent Clinics Tobacco Tobacco Problem Active [facility] disorder disorder [facility] a [facility] Outpati ent Clinics Mixed Mixed Problem Active [facility] hyperlipid hyperlipid [facility] - emia emia [facility] Contractur Contractur Problem Active [facility] of [facility] e of hand [facility] - [facility] Epigastric Problem 2018-11-03 M emoria pain 13:22:34 l [place] Epigastric pain 9 [facility] Essential Problem 2018-11-03 Me moria (primary) 13:22:34 l hypertensi [place] on Essential (primary) hypertensi on 11/03/2018 [facility] Hyperosmol Problem 2018-11-03 M emoria ality and 13:22:34 l hypernatre Gall[place] n susi Hyperosmol ality and hypernatre susi 11/03/2018 [facility] Other Problem 2018-11-03 Memor ia chest pain 13:22:34 l Other [place] chest pain 11/03/2018 [facility] Headache Problem 2018-11-03 Mem oria 13:22:34 l Headache Gallo n 11/03/2018 [facility] Nausea Problem 2018-11-03 Memor ia 13:22:34 l Nausea [place] 11/03/2018 [facility] Pain in Problem 2018-11-03 Abdiel princess left arm 13:22:34 l Pain in [place] left arm 11/03/2018 [facility] Diverticul Problem 2018-11-03 M emoria osis of 13:22:34 l small Johnson intestine Diverticul without osis of perforatio small n or intestine abscess without without perforatio bleeding n or abscess without bleeding 11/03/2018 [facility] Nicotine Problem 2018-11-03 Mem oria dependence 13:22:34 l , Nicotine Gallo n cigarettes dependence , , uncomplica cigarettes yariel , uncomplica yariel 11/03/2018 [facility] Family Problem 2018-11-03 Memor ia history of 13:22:34 l ischemic Family [place] n heart history of disease ischemic and other heart diseases disease of the and other 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 the 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 11/03/2018 [facility] Hypertensi Problem Resolve 2018-11-03 Memoria ve d 13:22:34 l disorder, [place] systemic Hypertensi arterial ve (disorder) disorder, systemic arterial (disorder) Resolved Problem 11/03/2018 [facility] Smoker Problem Resolve 2018-11-03 Abdiel princess (finding) d 13:22:34 l Smoker [place] (finding) Resolved Problem 11/03/2018 [facility] CHEST Diagnosis Active 2017-12-18 Mem oria PAIN, 15:17:00 l UNSPECIFIE CHEST Kamini nn D PAIN, UNSPECIFIE D Active [facility] ACUTE Diagnosis Active 2018-04-16 Mem oria ISCHEMIC 17:32:00 l HEART ACUTE [place] DISEASE, ISCHEMIC UNSPECIFIE HEART DISEASE, [facility]PECIF[facility] 2018-11-03 2018-11-03 Memoria 9-19 13:22:34 13:22:34 l Jaw pain 04:15: Gallo n 39 04/21/2018 11/03/2018 [facility] Allergies, Adverse Reactions, Alerts Allergy Allergy Status Severity Reaction(s) Onset Inactive Treating Comm ents Source Name Type Date Date Clinician Soma Adverse Active Itch [facility] Morphine Adverse Active Itch [facility] Sulfate [facility] Bactrim Adverse Active Itch [facility] Soma Soma Active Memoria l [place] Bactrim Bactrim Active Memoria l [place] Social History Social Habit Start Date Stop Date Quantity Comments Source Social History 2013-08-19 2013-08-19 Cesar ryan 11:22:15 11:22:15 Medications Ordered Filled Start Stop Current Ordering Indication Dosage Frequency Signature Comments Components Source Medication Medication Date Date Medication? Clinician (SIG) Name Name Lisinopril Lisinopril 0 Yes Prashant [address] [facility] 6[facility]04 [facility] 00:[facility]: [facility] 00 l [facility] Vitamin Vitamin 0 Yes Prashant [address] D-1000 Max D-1000 Max 5-07 [facility] - [facility] St 00:00: Memoria 00 l [facility] Aspirin 325 No Notes: (Do Memoria MG Enteric 14 Not Crush) l Coated 14:00: Do not [place] Tablet 00 crush or chew. Saline No Notes: Memoria Flush 0.9% - (Same as: l 02:00: BD [place] 00 Posiflush) NIFEdipine Yes 90 mg = 1 Me moria 90 mg oral 04-15 tab, PO, l tablet, 20:53: Daily, 0 Gall[place] n extended 00 Refill(s) release Protonix No Notes: For Mem oria 04-15 IV push l 20:05: reconstitu te with 10 ml 0.9% sodium chloride and push over 2 minutes. (Same as: Protonix) Nicotine No Notes: Memoria 04-15 (Same as: l 19:34: Habitrol) "Remove old patch before applicatio n of new patch" WASTE: F/P - P Waste Black; E - P Waste Black 24 HR No Notes: Memoria Nifedipine 04-15 (Same as: l 90 MG 19:32: Adalat CC, [place] Extended 00 Procardia Release XL) Give Tablet on empty [Procardia] stomach. Take 1 hour before or 2 hours after meal; "Avoid grapefruit and grapefruit juice". Do not crush Hydralazine No Notes: Abdiel princess 04-15 (Same as: l 18:45: Apresoline ) Push over 5 minutes Saline No Notes: Memoria Flush 0.9% 04-15 (Same as: l 18:45: BD [place] 00 Posiflush) Ondansetron No Notes: Abdiel princess 04-15 (Same as: l 18:45: Zofran) Acetaminoph No Notes: Do M emoria en 04-15 not exceed l 18:45: 4 gm/day. Johnson (Same as: Tylenol) Acetaminoph No Notes: Abdiel princess en 325 MG / 04-15 (Same as: l Hydrocodone 18:45: [place] Kamini nn Bitartrate 00 325/5) Do 5 MG Oral not exceed Tablet 4gm/day of acetaminop hen. Morphine No Notes: Memoria 04-15 (Same l 18:45: as:MORPhin e Sulfate) metoprolol No Notes: Memor ia tartrate 9-13 (Same as: l 18:45: Lopressor) Nitroglycer No Notes: Abdiel princess in 04-15 (Same l 18:45: as:Nitroqu ick, Nitrostat) "Do Not Crush" Sublingual tablet Lisinopril No Notes: Memor ia 04-15 (Same as: l 18:45: Prinivil, Zestril) Dilaudid 0 No 1 mg, Memoria 04-15 Route: l 18:32: IVP, ONCE, Dosing Weight 82, kg, Priority: STAT, Start date: 04/15/18 13:32:00 CDT, Stop date: 04/15/18 13:32:00 CDT Nitroglycer No 1 inch, Mem oria in 0.02 04-15 Route: l MG/MG 17:32: TOP, Drug [place] Topical Form: Ointment OINT, Dosing Weight 82, kg, ONCE, Start date: 04/15/18 12:32:00 CDT, Stop date: 04/15/18 12:32:00 CDT Ondansetron No 4 mg, Memor ia 04-15 Route: l 17:31: IVP, Drug form: INJ, ONCE, Dosing Weight 82, kg, Priority: STAT, Start date: 04/15/18 12:31:00 CDT, Stop date: 04/15/18 12:31:00 CDT Morphine 0 No 4 mg, Memoria 04-15 Route: l 17:31: IVP, ONCE, Dosing Weight 82, kg, Priority: STAT, Start date: 04/15/18 12:31:00 CDT, Stop date: 04/15/18 12:31:00 CDT Aspirin 0 No Notes: Memoria 04-15 Take with l 15:28: food. Saline No Notes: Memoria Flush 0.9% 04-15 (Same as: l 14:54: BD Posiflush) Protonix 0 No Notes: Memoria 5-15 Tablet l 12:30: should not be chewed or crushed. (Same as: Protonix) Ibuprofen 0 No 600 mg, 1 Mem oria 5- tab, l 20:47: Route: PO, Drug form: TAB, Q6H, Dosing Weight 81.818, kg, PRN Pain Score 1-3, Start date: 12/14/17 15:47:00 CDT, Duration: 30 day, Stop date: 01/13/18 15:46:00 CDT Morphine 2017-0 No 4 mg, Memoria 12-14 Route: l 12:50: IVP, ONCE, Dosing Weight 81.818, kg, Priority: STAT, Start date: 12/14/17 7:50:00 CDT, Stop date: 12/14/17 7:50:00 CDT Nitroglycer No Notes: Abdiel princess in 12-14 (Same l 12:30: as:Tridil) Final conc = 0.4 mg/ml. Premix bottle. Nitroglycer No 50 mg, 250 Memoria in 5-14 mL, Rate: l 12:29: Titrate, Start Dose: 10 microgram/ min, Titration: 10 microgram/ min every 5 minutes, Goal(s): Chest pain and SBP between 100 - 150 mmHg, Max Dose: 200 mcg/min, Route: IV, Dosing Weight 81.818 kg, Total Volume: 250, Start date: 12/01... Morphine 2017-0 No 4 mg, Memoria 12-14 Route: l 12:07: IVP, ONCE, [place] 00 kg, Priority: STAT, Start date: 12/14/17 7:07:00 CDT, Stop date: 12/14/17 7:07:00 CDT Ondansetron 2017-0 No 4 mg, Memor ia 12-14 Route: l 12:07: IVP, ONCE, [place] 00 kg, Priority: STAT, Start date: 12/14/17 7:07:00 CDT, Stop date: 12/14/17 7:07:00 CDT Saline 2017-0 No Notes: Memoria Flush 0.9% 12-14 Same as: l 12:07: BD Posiflush Sterile Simvastatin Simvastatin Yes Prashant [address] [facility] Lisinopril- Lisinopril- Yes Prashant [address] [facility] Hydrochloro Hydrochloro [facility] thiazide thiazide [facility] Outpati ent Clinics Symbicort Symbicort Yes Prashant [address] [facility] Promethazin Promethazin Yes Prashant [address] [facility] e HCl e HCl [facility] needed [facility] Vital Signs Vital Name Observation Time Observation Value Comments Source Heart Rate 2018-04-16 16:43:00 [facility] [place] Respitory Rate 2018-04-16 16:43:00 Memori al [place] Temperature Oral (F) 2018-04-16 16:43:00 98.1 F [facility] [place] Systolic (mm Hg) 2018-04-16 16:43:00 Abdiel rial [place] Diastolic (mm Hg) 2018-04-16 16:43:00 Mem orial [place] Heart Rate 2018-04-16 12:33:00 [facility] [place] Temperature Oral (F) 2018-04-16 12:33:00 98.1 F [facility] [place] Systolic (mm Hg) 2018-04-16 12:33:00 Abdiel rial [place] Diastolic (mm Hg) 2018-04-16 12:33:00 Mem orial [place] Respitory Rate 2018-04-16 12:33:00 Memori al [place] Respitory Rate 2018-04-16 08:19:00 Memori al [place] Heart Rate 2018-04-16 08:19:00 [facility] [place] Temperature Oral (F) 2018-04-16 08:19:00 97.9 F [facility] [place] Systolic (mm Hg) 2018-04-16 08:19:00 Abdiel rial [place] Diastolic (mm Hg) 2018-04-16 08:19:00 Mem orial [place] Height 2018-04-15 14:08:00 175.26 cm [facility] [place] BMI Calculated 2018-04-15 14:08:00 Memori al [place] Weight 2018-04-15 14:08:00 [facility] [place] Systolic (mm Hg) 2017-12-14 20:44:00 Abdiel rial [place] Diastolic (mm Hg) 2017-12-14 20:44:00 Mem orial [place] Temperature Oral (F) 2017-12-14 20:44:00 97.7 F [facility] [place] Respitory Rate 2017-12-14 20:44:00 Memori al [place] Respitory Rate 2017-12-14 15:33:00 Memori al [place] Systolic (mm Hg) 2017-12-14 15:33:00 Abdiel rial [place] Diastolic (mm Hg) 2017-12-14 15:33:00 Mem orial [place] BMI Calculated 2017-12-14 15:23:00 Memori al [place] Weight 2017-12-14 15:23:00 [facility] [place] Height 2017-12-14 15:23:00 175.26 cm [facility] [place] Respitory Rate 2017-12-14 15:03:00 Memori al [place] Systolic (mm Hg) 2017-12-14 15:03:00 Abdiel rial [place] Diastolic (mm Hg) 2017-12-14 15:03:00 Mem orial [place] Temperature Oral (F) 2017-12-14 14:20:00 97.6 F [facility] [place] Temperature Oral (F) 2017-12-14 12:18:00 97.8 F [facility] [place] Height 2017-12-14 12:02:00 180.34 cm [facility] [place] BMI Calculated 2017-12-14 12:02:00 Memori al [place] Weight 2017-12-14 12:02:00 [facility] [place] Heart Rate 2017-12-14 12:02:00 [facility] [place] Procedures Procedure Date / Time Performed Performing Clinician Regine e Appendectomy [facility] [place] section Memorial [place] Cholecystectomy [facility] [place] Hysterectomy [facility] [place] Encounters Start End Encounter Admission Attending Care Care Encounter Source Date/Time Date/Time Type Type Clinicians Facility Department ID 2020-01-06 2020-01-06 [facility] [id number] [facility] 08:06:00 08:06:00 [facility] Family Medicine l Medicine Outpati ent Clinics 2020-01-05 2020-01-05 [facility] [id number] [facility] 10:30:00 10:30:00 [facility] Family Medicine l Medicine Outpati ent Clinics 2020-01-01 2020-01-01 [facility] [id number] [address] 19:47:00 19:47:00 [facility] Medicine Medicine Outpati ent Clinics 2019-12-13 2019-12-13 [facility] [id number] [facility] 13:27:00 13:27:00 t [facility] - Road [facility] Family Medicine l Medicine Outpati ent Clinics 2019-12-08 2019-12-08 [facility] [id number] 08:07:[facility] 08:07:[address] [facility] - [facility] Medicine l Medicine Outpati ent Clinics 2019-12-07 2019-12-07 [facility] [id number] 13:00:00 13:00:[address] [facility] - Drive [facility] Family Medicine l Medicine Outpati ent Clinics 2019-11-24 2019-11-24 [facility] [id number] 09:15:00 09:15:[address] [employer] s - Drive [facility] Medicine l Medicine Outpati ent Clinics 2019-11-04 2019-11-04 [facility] [id number] 09:00:00 09:00:00 t Gle[place] [employer] s - Drive [facility] Medicine l Medicine Outpati ent Clinics 2019-10-13 2019-10-13 [facility] [id number] 14:30:00 14:30:00 t Gle[facility] [employer] s - Drive [facility] Medicine l Medicine Outpati ent Clinics 2018-04-15 2018-04-16 Outpatient JON Steel [facility]UST [id number] 09:01:00 13:30:00 Miguel 00 Akin[place] 2017-12-14 2017-12-14 Outpatient Robin [facility] [id number] 07:00:00 17:10:00 Ceredusty K 67 Results Test Description Test Time Test Comments Results Result Comments Source CARDIAC ENZYMES 2018-04-16 <0.02 [facility] [place] 05:17:00 CHEM PANEL 2018-04-16 53 Memorial Kamini nn 05:17:00 CHEM PANEL 2018-04-16 105 Memorial Kamini nn 05:17:00 CHEM PANEL 2018-04-16 31 Memorial Kamini nn 05:17:00 CHEM PANEL 2018-04-16 4.5 Memorial Kamini nn 05:17:00 CHEM PANEL 2018-04-16 142 Memorial Kamini nn 05:17:00 CHEM PANEL 2018-04-16 15 [facility] Kamini nn 05:17:00 CHEM PANEL 2018-04-16 1.15 [facility] Kamini nn 05:17:00 CHEM PANEL 2018-04-16 8.6 [facility] Kamini nn 05:17:00 CHEM PANEL 2018-04-16 10.5 [facility] Kamini nn 05:17:00 CHEM PANEL 2018-04-16 100 [facility] Kamini nn 05:17:00 HEMATOLOGY 2018-04-16 38.9 [facility] Kamini nn 05:17:00 HEMATOLOGY 2018-04-16 13.5 [facility] Kamini nn 05:17:00 HEMATOLOGY 2018-04-16 9.0 [facility] Kamini nn 05:17:00 HEMATOLOGY 2018-04-16 133 [facility] Kamini nn 05:17:00 HEMATOLOGY 2018-04-16 34.7 [facility] Kamini nn 05:17:00 HEMATOLOGY 2018-04-16 96.7 [facility] Kamini nn 05:17:00 HEMATOLOGY 2018-04-16 12.9 Memorial Kamini nn 05:17:00 HEMATOLOGY 2018-04-16 05:17:00 Test Item Value Reference Range Interpretation Comme nts MCH (test code = MCH) 33.6 pg 27.0-31.0 [facility] FhdaottBHKRXOBFKZ8655-81-73 05:17:003.9[facility] HermannHEMATOLOGY 2018-04-16 05:17:004.02[facility] QhdzixlWSRRYD9591-48-81 05:17:00 Test Item Value Reference Range Interpretation Comments VLDL (test code = VLDL) 44 1 Memorial EfivahiDMQBEC7463-12-55 05:17:0087[facility] LyglsdcMKFSGK2426-17-91 05:17:0049[facility] DiycytyBEQTSF6740-83-31 05:17:33455Xknogkpj HermannLIPIDS 2018-04-16 05:17:80713Crrrtuia ApamigsPJVXPQ4829-57-29 05:17:00 Test Item Value Reference Range Interpretation Comments CHD Risk (test code = CHD Risk) 3.67 1 3.90-5.80 [facility] HermannSPECIAL SHXQKNPPP3742-59-07 05:17:005.5[facility] HermannCARDIAC TGTGBGK7078-63-01 23:18:00<0.02[facility] HermannCHEM SVXMJ3275-72-46 18:29:00 0.7[facility] HermannCHEM LTWRE6348-04-23 18:29:0087[facility] HermannCARDIAC WFJIQLJ3162-62-16 17:49:00<0.02[facility] HermannCARDIAC GVGOZJF9679-76-09 15:16:35069Eazwzcgl HermannCARDIAC YGWJTDX1246-16-99 15:16:0064[facility] [place] CHEM [id number] 15:16:00 Test Item Value Reference Range Interpretation Comments A/G Ratio (test code = A/G Ratio) 1.2 1 0.7-1.6 [facility] HermannCHEM [id number] 15:16:003.3[facility] HermannCHEM PANEL 2018-04-15 15:16:00 Test Item Value Reference Range Interpretation Comments B/C Ratio (test code = B/C Ratio) 16 1 6-25 [facility] HermannCHEM [id number] 15:16:0012.0[facility] HermannCHEM PANEL 2018-04-15 15:16:0083[facility] HermannCHEM [id number] 15:16:000.5[facility] HermannCHEM [id number] 15:16:0082[facility] HermannCHEM CXQGX9594-10-07 15:16:0028[facility] HermannCHEM [id number] 15:16:0013[facility] HermannCHEM TFIUT1886-15-28 15:16:007.1[facility] HermannCHEM TIQZX7072-52-43 15:16:009.6 [facility] HermannCHEM RCJWN6672-27-03 15:16:0028[facility] HermannCHEM PANEL 2018-04-15 15:16:004.0[facility] HermannCHEM [id number] 15:16:32708Egqlkpxa HermannCHEM CRJWE5863-21-98 15:16:63565Usuaijtg HermannCHEM UAADK2452-79-20 15:16:000.79[facility] HermannCHEM WLDMQ5104-24-92 15:16:0013[facility] HermannCHEM FOYIT2303-89-52 15:16:0089[facility] HermannCHEM YIIZM5748-33-23 15:16:003.8 [facility] HermannCHEM MENLB3972-91-18 15:16:002.3[facility] HermannCHEM PANEL 2018-04-15 15:16:003.7[facility] PkkcqyqOGHQAOFMLBVWW3625-76-77 15:16:00Negative *NA*(04/15/18 10:16 AM)[facility] JnpnzcsRYSWOLYIJF6505-52-76 15:16:004.9[facility] RqqsghwVAZAEVOJRX1474-25-88 15:16:0015.2[facility] OmextbvPVDPUKBGWL8007-30-82 15:16:004.61[facility] ZyqndxyRUUAYRRVWQ8304-68-47 15:16:0033.6[facility] [place] BWLSXEKOLX1573-10-21 15:16:0045.3[facility] ZncebqfPVYBTWNCLZ8922-78-95 15:16:00 98.2[facility] DzcjeksNQKGCNJNRR7939-51-47 15:16:00 Test Item Value Reference Range Interpretation Comments MCH (test code = MCH) 33.0 pg 27.0-31.0 Memorial RlomuyiGZJFLPNKPJ8752-81-74 15:16:008.8[facility] HermannHEMATOLOGY 2018-04-15 15:16:0012.6[facility] MxnynbkHARQUYUBCW0874-88-51 15:16:04466Tnzrbwvd ZevxdxxZYDPMGREIL3598-31-37 15:16:0039.1[facility] WouoxcqHUIVIHXJZM1079-92-51 15:16:002.5[facility] HsgngmmYWYWFANKVE1369-79-76 15:16:0050.6[facility] [place] YTOIPKHYDM4910-13-25 15:16:001.9[facility] KglcznqSLDERPUFWD8901-74-29 15:16:002.5 Memorial IqkakeiJTTDGASWEI2796-38-12 15:16:007.1[facility] HermannHEMATOLOGY 2018-04-15 15:16:000.7[facility] TojxzruOCXSKMYYQB5945-85-48 15:16:000.1[facility]orial YjvrhvsXFVKNWUECM7506-72-04 15:16:000.3[facility] HermannCARDIAC QXVDLGM7475-45-64 18:17:00<0.02[facility] HermannCARDIAC FKNAVKO8440-79-49 12:22:00 Test Item Value Reference Range Interpretation Comments CK MB Index (test code = CK MB Index) 2.7 1 <=2.5 [facility] HermannCARDIAC QXRLRGT7685-13-21 12:22:00<0.02[facility] [place] CARDIAC JVTMJXH3115-06-50 12:22:89806Ihgvkpdz HermannCARDIAC QKHSEDQ2949-97-70 12:22:003.2[facility] HermannCHEM VBKJO6890-70-10 12:22:0087[facility] HermannCHEM MGDME3153-88-88 12:22:003.1[facility] HermannCHEM WCTCW0237-04-24 12:22:0078 [facility] HermannCHEM UYDQK8696-02-41 12:22:0012[facility] HermannCHEM PANEL 2017-12-14 12:22:0024[facility] HermannCHEM IGLCG4392-42-12 12:22:003.2[facility] HermannCHEM TAETY8769-27-35 12:22:006.3[facility] HermannCHEM [id number] 12:22:0023[facility] HermannCHEM TECFN0439-01-28 12:22:008.9[facility] HermannCHEM PGLBH8875-91-09 12:22:00 Test Item Value Reference Range Interpretation Comments A/G Ratio (test code = A/G Ratio) 1.0 1 0.7-1.6 [facility] HermannCHEM [id number] 12:22:0014.1[facility] HermannCHEM PANEL 2017-12-14 12:22:00 Test Item Value Reference Range Interpretation Comments B/C Ratio (test code = B/C Ratio) 22 1 6-25 [facility] HermannCHEM [id number] 12:22:000.2[facility] HermannCHEM PANEL 2017-12-14 12:22:39693Awkynupk HermannCHEM [id number] 12:22:43057Jzoopywp HermannCHEM OKLPY9885-59-42 12:22:004.1[facility] HermannCHEM BULNF8206-11-45 12:22:000.76[facility] HermannCHEM PGWFS0838-48-00 12:22:0017[facility] HermannCHEM [id number] 12:22:65676Ozgtsqll RttiohbUFAXXXGNWB4594-31-76 12:22:000.4 [facility] EqpinhrNSTUFRAJRL3495-38-43 12:22:000.1[facility] HermannHEMATOLOGY 2017-12-14 12:22:0048.7[facility] ZwoamweNZNGAZNMKE9921-40-34 12:22:0039.8[facility] BieqbxeBKFUNADGJA5671-92-87 12:22:008.3[facility] KiuojviHEZRHFAHWC1050-48-02 12:22:002.7[facility] MklupedMMYBSDVGBH8350-64-06 12:22:002.0[facility] [place] NYUXAJLTOC4908-85-78 12:22:000.5[facility] XdvxdxuRYWRREXLZE9823-70-35 12:22:002.5 [facility] WsruzteSQJAMHZILJ2770-40-43 12:22:0033.5[facility] HermannHEMATOLOGY 2017-12-14 12:22:009.2[facility] MdvfshcDNRBCNAHUH8623-50-97 12:22:65457Ofzomydj AkocokyARFPJKCPEG0409-11-03 12:22:0013.0[facility] TevfovrHIHTAENRDP1899-18-33 12:22:00 Test Item Value Reference Range Interpretation Comments MCH (test code = MCH) 32.8 pg 27.0-31.0 [facility] KczjlsvSPIKVAETIO7415-00-15 12:22:0043.1[facility] HermannHEMATOLOGY 2017-12-14 12:22:0014.4[facility] DcmgtdnQMDAMHIGNK5910-35-58 12:22:0097.9[facility] XngwwvuMJZOLNSEQS2718-40-75 12:22:004.40[facility] WaoojpoRNLRJHNXLD4883-74-49 12:22:005.1[facility] [place]
--- OUTSIDE RECORDS SUMMARY | 2020-01-21 16:31 | XMS REPORT ---
[...] Status Dosage System Date Date Lisinopril-Hydr ND 60430171068 20-25 MG Orally Acti ve 1 tablet ochlorothiazide Once a day Symbicort ND 90016701383 160-4.5 MCG/ACT Active 2 puffs Inhalation Twice a day Simvastatin ND 86184212546 5 MG Orally Inactive 1 t ablet Once a day in the evening Promethazine [facility] 53445415127 6.25 MG/5ML Active 10 ml as HCl Orally every 6 needed hrs Results No Known Results Summary Purpose eClinicalWorks Submission
--- OUTSIDE RECORDS SUMMARY | 2020-01-21 16:31 | XMS REPORT ---
[...] End Status Dosage System Date Date Symbicort [facility] 19142752429 160-4.5 MCG/ACT Active 2 puffs Inhalation Twice a day Promethazine HCl [facility] 78540487873 6.25 MG/5ML Active 10 ml as Orally every 6 needed hrs Lisinopril-[place] ND 25561504626 20-25 MG Orally Act osvaldo 1 tablet chlorothiazide Once a day Simvastatin ND 25104133285 5 MG Orally November Active 1 ta blet Once a day 2019 in the evening Results No Known Results Summary Purpose eClinicalWorks Submission
--- OUTSIDE RECORDS SUMMARY | 2020-01-21 16:32 | XMS REPORT ---
:1960 Author Organization eClinicalWorks Care Team Providers Name Role Phone VillaPrashant Provider Role Unavailable Allergies, Adverse Reactions, Alerts Substance Reaction Event Type Soma Itch Drug Allergy Morphine Sulfate Itch Drug Allergy Bactrim Itch Drug Allergy Problems Problem Type Condition Code Onset Dates Condition Statu s Assessment Renal insufficiency N28.9 Active Assessment Contracture of hand M24.549 Active Assessment Bilateral leg cramps R25.2 Active Problem Mixed hyperlipidemia E78.2 Active Problem Tobacco use disorder F17.200 Active Problem Contracture of hand M24.549 Active Assessment Essential hypertension I10 Activ e Problem Essential hypertension I10 Activ e Problem Moderate persistent asthma with J45.41 Active exacerbation Assessment Fatigue, unspecified type R53.83 Ac tive Assessment Family history of heart disease Z82.49 Active Assessment Elevated MCV R71.8 Active Assessment Mixed hyperlipidemia E78.2 Active Assessment Family history of diabetes mellitus Z83.3 Active Assessment Prediabetes R73.03 Active Assessment Tobacco abuse counseling Z71.6 Act osvaldo Assessment Tobacco use disorder F17.200 Active Medications Medication Code Code Instructions Start End Status Dosage System Date Date Simvastatin ND 56067447290 5 MG Orally Inactive 1 t ablet Once a day in the evening Lisinopril-Hydr ND 44134077930 20-25 MG Orally Inac tive 1 tablet ochlorothiazide Once a day Symbicort ND 45882829476 160-4.5 MCG/ACT Active 2 puffs Inhalation Twice a day Lisinopril ND 56249244053 5 MG Orally January 04, Active 1 ta blet Once a day 2019 Promethazine ND 55104339083 6.25 MG/5ML Active 10 ml as HCl Orally every 6 needed hrs Vitamin D-1000 ND 69059517607 25 MCG (1000 December 07, Active [address] [place]) Orally Once 2020 a day Results No Known Results Summary Purpose eClinicalWorks Submission
--- OUTSIDE RECORDS SUMMARY | 2020-01-21 16:32 | XMS REPORT ---
:1960 Author Organization eClinicalWorks Care Team Providers Name Role Phone Prashant Villa Provider Role Unavailable Allergies No Known Allergies Problems Problem Type Condition Code Onset Dates Condition Statu s Problem Mixed hyperlipidemia E78.2 Active Problem Tobacco use disorder F17.200 Active Problem Contracture of hand M24.549 Active Problem Essential hypertension I10 Activ e Problem Moderate persistent asthma with J45.41 Active exacerbation Medications No Known Medications Results No Known Results Summary Purpose eClinicalWorks Submission
[2020-01-21] MEDS ORDERED: cloNIDine HCL 0.1 MG TAB ONE (17:21)
--- NOTE | 2020-01-21 17:24 | RAD REPORT ---
EXAM DESCRIPTION: RAD - Chest Single View - 01/21/2020 5:17 pm CLINICAL HISTORY: CP/HTNchest pain, hypertension COMPARISON: Portable October 17 TECHNIQUE: AP portable chest image was obtained 01/21/2020 5:17 pm . FINDINGS: Lungs are clear. Heart and vasculature are normal. No measurable pleural effusion and no p neumothorax. No acute bony abnormality seen. No acute aortic findings suspected. IMPRESSION: No acute cardiopulmonary process. No significant change from comparison.
[2020-01-21 17:42] LABS: Absolute Lymphocytes (CBC) 2.1 K/uL (0.7-4.9); Basophils % 0.6 % (0-1.3); Hematocrit 45.2 % (36.0-45.0); Lymphocytes % 39.2 % (15.3-44.8); RBC Red Blood Cell Count 4.54 M/uL (3.86-4.86)
[2020-01-21 18:04] LABS: ALT/SGPT 27 U/L (12-78); AST/SGOT 20 U/L (15-37); Albumin 3.6 g/dL (3.4-5.0); Alkaline Phosphatase 81 U/L (45-117); BUN Blood Urea Nitrogen 12 mg/dL (7-18); Bicarbonate 27 mmol/L (21-32); Bilirubin Direct < 0.1 mg/dL (0-0.2); Bilirubin Total 0.3 mg/dL (0.2-1.0); Glucose Level 98 mg/dL (74-106); NT PRO-BNP 104 pg/mL (<125); Potassium 3.9 mmol/L (3.5-5.1); Protein, Total 6.9 g/dL (6.4-8.2); Sodium Level 142 mmol/L (136-145); Troponin (Emerg Dept Use Only) < 0.02 ng/mL (0.0-0.045)
--- NOTE | 2020-01-21 19:20 | EDPHYS ---
Physician Documentation [facility] Name: Rhona Ladd Age: 59 yrs Sex: Female : 1960 Arrival Date: 01/21/2020 Time: 16:35 Bed 7 Private MD: ED Physician Frank Jimenez HPI: 01/20 19:22 This 59 yrs old Female presents to ER via Ambulatory with complaints of High kdr Blood Pressure. 19:22 The patient has elevated blood pressure and discovered this during work physical. kdr Onset: The symptoms/episode began/occurred at an unknown time. Modifying factors: The symptoms are aggravated by The symptoms are alleviated by prescription meds, calcium channel liliana. Associated signs and symptoms: Pertinent positives: chest pain, Pertinent negatives: dizziness, dyspnea, headache, lightheadedness, nausea, visual changes, vomiting, weakness. Severity of symptoms: At its worst the blood pressure was severe, earlier today, in the emergency department the blood pressure is improved, mildly. The patient has experienced similar episodes in the past, a few times. The patient has been recently seen by a physician: [facility]. Historical: - Allergies: 16:51 Bactrim; ll1 16:51 Codeine; ll1 16:51 Soma; ll1 16:51 Morphine; ll1 - PMHx: 16:51 Asthma; Hypertension; ll1 - PSHx: 16:51 Hysterectomy; Cholecystectomy; Appendectomy; ll1 - Immunization history:: Flu vaccine is not up to date. - Social history:: Smoking status: Patient reports the use of cigarette tobacco products, denies chronic smoking, but will smoke occasionally, Patient/guardian denies using alcohol, street drugs. ROS: 19:22 Constitutional: Negative for fever, chills, and weight loss, Eyes: Negative for injury, kdr pain, redness, and discharge, ENT: Negative for injury, pain, and discharge, Neck: Negative for injury, pain, and swelling, Respiratory: Negative for shortness of breath, cough, wheezing, and pleuritic chest pain, Abdomen/GI: Negative for abdominal pain, nausea, vomiting, diarrhea, and constipation, Back: Negative for injury and pain, : Negative for injury, bleeding, discharge, and swelling, MS/Extremity: Negative for injury and deformity, Skin: Negative for injury, rash, and discoloration, Neuro: Negative for headache, weakness, numbness, tingling, and seizure activity. Psych: Negative for depression, anxiety, suicide ideation, homicidal ideation, and hallucinations, Allergy/Immunology: Negative for hives, rash, and allergies, Endocrine: Negative for neck swelling, polydipsia, polyuria, polyphagia, and marked weight changes, Hematologic/Lymphatic: Negative for swollen nodes, abnormal bleeding, and unusual bruising. 19:22 Cardiovascular: Positive for chest pain, of the left breast, Negative for edema, orthopnea, palpitations, paroxysmal nocturnal dyspnea. Exam: 19:22 Constitutional: This is a well developed, well nourished patient who is awake, alert, kdr and in no acute distress. Head/Face: Normocephalic, atraumatic. Eyes: Pupils equal round and reactive to light, extra-ocular motions intact. Lids and lashes normal. Conjunctiva and sclera are non-icteric and not injected. Cornea within normal limits. Periorbital areas with no swelling, redness, or edema. Neck: Trachea midline, no thyromegaly or masses palpated, and no cervical lymphadenopathy. Supple, full range of motion without nuchal rigidity, or vertebral point tenderness. No Meningismus. Chest/axilla: Normal chest wall appearance and motion. Nontender with no deformity. No lesions are appreciated. Cardiovascular: Regular rate and rhythm with a normal S1 and S2. No gallops, murmurs, or rubs. Normal PMI, no JVD. No pulse deficits. Respiratory: Lungs have equal breath sounds bilaterally, clear to auscultation and percussion. No rales, rhonchi or wheezes noted. No increased work of breathing, no retractions or nasal flaring. Abdomen/GI: Soft, non-tender, with normal bowel sounds. No distension or tympany. No guarding or rebound. No evidence of tenderness throughout. Back: No spinal tenderness. No costovertebral tenderness. Full range of motion. Skin: Warm, dry with normal turgor. Normal color with no rashes, no lesions, and no evidence of cellulitis. MS/ Extremity: Pulses equal, no cyanosis. Neurovascular intact. Full, normal range of motion. Neuro: Awake and alert, GCS 15, oriented to person, place, time, and situation. Cranial nerves II-XII grossly intact. Motor strength 5/5 in all extremities. Sensory grossly intact. Cerebellar exam normal. Normal gait. Psych: Awake, alert, with orientation to person, place and time. Behavior, mood, and affect are within normal limits. Vital Signs: 16:47 BP 177 / 108; Pulse 73; Resp 17; Temp 97.9; Pulse Ox 96% ; Weight 77.11 kg; Height 5 ll1 ft. 9 in. (175.26 cm); Pain 5/10; 18:30 BP 145 / 88; Pulse 56; Resp 20; Pulse Ox 96% on R/A; em 19:29 BP 132 / 83; Pulse 63; Resp 18; Pulse Ox 100% on R/A; mg2 16:47 Body Mass Index 25.10 (77.11 kg, 175.26 cm) ll1 MDM: 19:19 Patient medically screened. kdr 19:22 Data reviewed: vital signs, nurses notes, lab test result(s), radiologic studies. kdr Counseling: I had a detailed discussion with the patient and/or guardian regarding: the historical points, exam findings, and any diagnostic results supporting the discharge/admit diagnosis, lab results, radiology results, the need for outpatient follow up. 01/20 17:02 Order name: Basic Metabolic Panel [facility] 01/20 17:02 Order name: CBC with Diff; Complete Time: 19:18 kdr 01/20 17:02 Order name: LFT's; Complete Time: 19:18 kdr 01/20 17:02 Order name: Magnesium; Complete Time: 19:18 [facility] 01/20 17:02 Order name: NT PRO-BNP; Complete Time: 19:18 [facility] 01/20 17:02 Order name: Troponin (emerg Dept Use Only); Complete Time: 19:18 kdr 01/20 17:02 Order name: XRAY Chest (1 view); Complete Time: 19:18 [facility] 01/20 17:02 Order name: EKG; Complete Time: 17:03 kdr 01/20 17:02 Order name: Cardiac monitoring; Complete Time: 17:38 [facility] 01/20 17:02 Order name: EKG - Nurse/Tech; Complete Time: 18:20 [facility] 01/20 17:02 Order name: IV Saline Lock; Complete Time: 17:38 [facility] 01/20 17:02 Order name: Labs collected and sent; Complete Time: 17:38 [facility] 06/20 17:03 Order name: Basic Metabolic Panel; Complete Time: 19:18 EDMS 01/20 17:02 Order name: O2 Per Protocol; Complete Time: 17:38 kdr 01/20 17:02 Order name: O2 Sat Monitoring; Complete Time: 17:38 kdr Administered Medications: 17:20 Drug: cloNIDine 0.2 mg Route: PO; 19:22 Follow up: Response: No adverse reaction; Blood pressure is lowered mg2 Disposition: 01/21/20 19:19 Discharged to Home. Impression: Hypertensive heart disease - Poorly controlled. - Condition is Stable. - Discharge Instructions: Hypertension, Pspo-rw-[place]. - Prescriptions for losartan 25 mg Oral tablet - take 1 tablet by ORAL route 2 times per day; 20 tablet. - Medication Reconciliation Form, Thank You Letter form. - Follow up: Private Physician; When: 2 - 3 days; Reason: If symptoms return, Further diagnostic work-up, Recheck today's complaints, Continuance of care, Re-evaluation by your physician. - Problem is an ongoing problem. - Symptoms have improved. Signatures: Dispatcher [employer] [facility] Frank Jimenez MD MD [facility] James Basurto, TESSA RN [facility] [place] Miranda Youngblood, TESSA RN Pallavi Haskins RN RN ll1 Corrections: (The following items were deleted from the chart) 20:02 19:19 01/21/2020 19:19 Discharged to Home. Impression: Hypertensive heart disease - mg2 Poorly controlled. Condition is Stable. Forms are Medication Reconciliation Form, Thank You Letter, Antibiotic Education, Prescription Opioid Use. Follow up: Private Physician; When: 2 - 3 days; Reason: If symptoms return, Further diagnostic work-up, Recheck today's complaints, Continuance of care, Re-evaluation by your physician. Problem is an ongoing problem. Symptoms have improved. kdr
--- NOTE | 2020-01-21 19:20 | ER ---
Nurse's Notes [facility] Name: Rhona Ladd Age: 59 yrs Sex: Female : 1960 Arrival Date: 01/21/2020 Time: 16:35 Bed 7 Private MD: Diagnosis: Hypertensive heart disease-Poorly controlled Presentation: 01/20 16:47 Chief complaint: Patient states: Elevated BP for 2 days. Twinges of chest pain today. ll1 BP 168/102 yesterday. Went to [facility], started losartan today. Coronavirus screen: Proceed with normal triage. Patient denies a cough. Patient denies shortness of breath or difficulty breathing. Patient denies measured and/or subjective temperature greater than 100.4F prior to today's visit. Patient denies travel on a cruise ship or to a country the [facility] currently lists as an affected area. Patient denies contact with known and/or suspected case of COVID-19. Ebola Screen: Patient denies travel to an Ebola-affected area in the 21 days before illness onset. Initial Sepsis Screen: Does the patient meet any 2 criteria? No. Patient's initial sepsis screen is negative. Risk Assessment: Do you want to hurt yourself or someone else? Patient reports no desire to harm self or others. Onset of symptoms was January 20, 2020. 16:47 Method Of Arrival: Ambulatory ll1 16:47 Acuity: CHON 3 ll1 19:30 Initial Sepsis Screen: Does the patient have a suspected source of infection? No. mg2 Patient's initial sepsis screen is negative. Historical: - Allergies: 16:51 Bactrim; ll1 16:51 Codeine; ll1 16:51 Soma; ll1 16:51 Morphine; ll1 - PMHx: 16:51 Asthma; Hypertension; ll1 - PSHx: 16:51 Hysterectomy; Cholecystectomy; Appendectomy; ll1 - Immunization history:: Flu vaccine is not up to date. - Social history:: Smoking status: Patient reports the use of cigarette tobacco products, denies chronic smoking, but will smoke occasionally, Patient/guardian denies using alcohol, street drugs. Screenin:49 Abuse screen: Denies threats or abuse. Nutritional screening: No deficits noted. Tuberculosis screening: No symptoms or risk factors identified. Fall Risk None identified. Assessment: 17:15 General: Appears uncomfortable, Behavior is cooperative, anxious. Pain: Denies pain. Neuro: Level of Consciousness is awake, alert, obeys commands, Oriented to person, place, time, situation. Cardiovascular: Reports Heart tones S1 S2 present Capillary refill < 3 seconds Patient's skin is warm and dry. Pulses are palpable in right radial artery and left radial artery Rhythm is sinus bradycardia Chest pain is described as mild, quality is "twinge off and on" radiates jaw(s) began yesterday. Respiratory: Airway is patent Respiratory effort is even, unlabored, Respiratory pattern is regular, symmetrical, Breath sounds are clear bilaterally. Derm: Skin is intact, is healthy with good turgor. 20:01 Reassessment: Patient states feeling better. Patient states symptoms have improved. mg2 Vital Signs: 16:47 BP 177 / 108; Pulse 73; Resp 17; Temp 97.9; Pulse Ox 96% ; Weight 77.11 kg; Height 5 ll1 ft. 9 in. (175.26 cm); Pain 5/10; 18:30 BP 145 / 88; Pulse 56; Resp 20; Pulse Ox 96% on R/A; em 19:29 BP 132 / 83; Pulse 63; Resp 18; Pulse Ox 100% on R/A; mg2 16:47 Body Mass Index 25.10 (77.11 kg, 175.26 cm) ll1 ED Course: 16:35 Patient arrived in ED. fj1 16:50 Triage completed. ll1 16:51 Arm band placed on Patient placed in an exam room, on a stretcher. ll1 16:55 Frank Jimenez MD is Attending Physician. kdr 17:12 Miranda Youngblood, RN is Primary Nurse. 17:17 XRAY Chest (1 view) In Process Unspecified. EDMS 17:49 Patient has correct armband on for positive identification. Bed in low position. Call light in reach. Side rails up X 1. hyperbaric tech on. Pulse ox on. 18:00 EKG done, by ED staff, reviewed by Frank Jimenez MD. jp3 20:01 No provider procedures requiring assistance completed. IV discontinued, intact, mg2 bleeding controlled, No redness/swelling at site. Pressure dressing applied. Administered Medications: 17:20 Drug: cloNIDine 0.2 mg Route: PO; 19:22 Follow up: Response: No adverse reaction; Blood pressure is lowered mg2 Outcome: 19:19 Discharge ordered by . kdr 20:02 Discharged to home ambulatory, with family. mg2 20:02 Condition: stable 20:02 Discharge instructions given to patient, family, Instructed on discharge instructions, follow up and referral plans. medication usage, Demonstrated understanding of instructions, follow-up care, medications, Prescriptions given X 1. 20:02 Patient left the ED. mg2 Signatures: Dispatcher [employer] EDMS Frank Jimenez MD MD kdr Melquiades Yin, TESSA RN James Yoon RN RN mg2 Marcell Andre jp3 Fidel Hurd1 Miranda Youngblood RN RN Pallavi Chen RN RN ll1
[2020-01-21 20:09] VITALS: TEMP 97.9
[2020-01-21 20:17] VITALS: BP 132/83; O2SAT 100
--- NOTE | 2020-01-22 06:21 | EKG ---
Test Date: 2020-01-21 Test Time: 17:47:27 Roper Operator: DEXTER MEASUREMENT RESULTS: Intervals: Rate: 57 HI: 144 QRSD: 84 QT: 416 QTc: 404 [place]: P: 64 HI: 144 QRS: 43 T: 58 INTERPRETIVE STATEMENTS: Sinus bradycardia Otherwise normal ECG Compared to ECG 10/18/2019 14:15:19 Sinus rhythm no longer present Electronically Signed On 01-22-20 06:20:18 CDT by Facundo Hay
== END 2020-01-21 20:02 | disposition home or self-care (01) ==
LOC: ER 16:26
DX: I11.9 Hypertensive heart disease without heart failure (principal); I10 Essential (primary) hypertension; Z72.0 Tobacco use; Z88.1 Allergy status to other antibiotic agents; Z88.5 Allergy status to narcotic agent
CPT/HCPCS: 36415; 71045; 80048; 80076; 83735; 83880; 84484; 85025; 93005; 99284

== ENCOUNTER 2020-06-22 09:37 | Emergency (ER) | payer BC ==
--- OUTSIDE RECORDS SUMMARY | 2020-06-22 09:41 | XMS REPORT | Continuity of Care Document ---
:1960 Author Organization [employer] [facility] Care Team Providers Name Role Phone [employer] [facility] Unavailable Un available Problems Problem Status Onset Classification Date Comments Sourc e Date Reported Jaw pain 04/21/20 11/03/[address] HIGH BLOOD Active 04/15/20 [facility] PRESSURE 18 [place] ACS Active 04/15/20 [place] [id number] [place] CARDAIC Active 12/15/[address] CHEST PAIN Active 12/15/[address] CHRISTY BILLING Active 12/15/[address] Epigastric pain 11/03/2018 [facility] Essential 11/03/2018 (primary) [facility] hypertension Hyperosmolality 11/03/2018 and hypernatremia [place] Other chest pain 11/03/2018 [place] Headache 11/03/2018 [facility] 11/03[facility]2018 [facility] Diverticulosis of 11/03/2018 [facility] small intestine [place] without perforation or abscess without bleeding Nicotine 11/03/2018 dependence, [facility] cigarettes, uncomplicated Family history of 11/03/2018 [facility] ischemic heart [place] and disease and other diseases of the circulatory system Hypertensive Resolved Problem 11/03/2018 [place] as disorder, systemic [facility] arterial Center, (disorder) [place] Smoker (finding) Resolved Problem 11/03/2018 [facility] CHEST PAIN, Active [facility] ACUTE ISCHEMIC Active Memor ial HEART DISEASE, Kamini nn UNSPECIFIE Medications Medication Details Route Status Patient Ordering Order Source Instructions Provider Date Aspirin 325 MG Notes: (Do Not Inactive H Enteric Coated Crush) Do not 2018 [place] Tablet crush or chew. Saline Flush Notes: (Same No Longer 0.9% as: BD Active 2017 [place] Posiflush) NIFEdipine 90 90 mg = 1 tab, Active mg oral tablet, PO, Daily, 0 2018 [place] extended Refill(s) release Protonix Notes: For IV No Longer push Active 2017 [place] reconstitute with 10 ml 0.9% sodium chloride and push over 2 minutes. (Same as: Protonix) Nicotine Notes: (Same No Longer as: Habitrol) Active 2017 [place] "Remove old patch before application of new [...] Notes: (Same No Longer as: Active 2017 [place] Apresoline) Push over 5 minutes Saline Flush Notes: (Same No Longer 0.9% as: BD Active 2017 [place] Posiflush) Ondansetron Notes: (Same No Longer as: Zofran) Active 2017 [place] Acetaminophen Notes: Do not No Longer exceed 4 Active 2017 [place] gm/day. (Same as: Tylenol) Acetaminophen Notes: (Same No Longer 325 MG / as: [place] Active 2017 [place] Hydrocodone 325/5) Do not Bitartrate 5 MG exceed 4gm/day Oral Tablet of acetaminophen. Morphine Notes: (Same No Longer as:MORPhine Active 2017 [place] Sulfate) metoprolol Notes: (Same Inactive tartrate as: Lopressor) 2017 [place] Nitroglycerin Notes: (Same No Longer as:Nitroquick, Active 2017 [place] Nitrostat) "Do Not Crush" Sublingual tablet Lisinopril Notes: (Same Inactive as: Prinivil, 2017 [place] Zestril) Dilaudid 1 mg, Route: Inactive IVP, ONCE, 2017 [place] Dosing Weight 82, kg, Priority: STAT, Start date: 04/15/18 13:32:00 CDT, Stop date: 04/15/18 13:32:00 CDT Nitroglycerin 1 inch, Route: Inactive 0.02 MG/MG TOP, Drug 2017 [place] Topical Form: OINT, Ointment Dosing Weight 82, kg, ONCE, Start date: 04/15/18 12:32:00 CDT, Stop date: 04/15/18 12:32:00 CDT Ondansetron 4 mg, Route: Inactive IVP, Drug 2017 [place] form: INJ, ONCE, Dosing Weight 82, kg, Priority: STAT, Start date: 04/15/18 12:31:00 CDT, Stop date: 04/15/18 12:31:00 CDT Morphine 4 mg, Route: Inactive IVP, ONCE, 2018 [place] Dosing Weight 82, kg, Priority: STAT, Start date: 04/15/18 12:31:00 CDT, Stop date: 04/15/18 12:31:00 CDT Aspirin Notes: Take Inactive with food. 2018 [place] Saline Flush Notes: (Same No Longer 0.9% as: BD Active 2017 [place] Posiflush) Protonix Notes: Tablet No Longer [place] [...] type Reported [place] Assertion Drug Active allergy [facility] Bactrim Assertion Drug Active allergy [facility] Immunizations No Data Provided for This Section Results Order Name Results Value Reference Date Interpretation Comments Alaina rce Range CARDIAC Troponin-I <0.02 0.00 - 04/16 ENZYMES 0.40 [facility] CHEM PANEL eGFR 53 04/16 Result Comment: The [facility] eGFR is calculated using the CKD-EPI formula. [...] Chloride Lvl 105 95 - 109 04/16 [place] CHEM PANEL CO2 31 24 - 32 04/16 [place] CHEM PANEL Potassium 4.5 3.5 - 5.1 04/16 MH Lvl /2017 [place] CHEM PANEL Sodium Lvl 142 135 - 145 04/16 [place] CHEM PANEL BUN 15 7 - 22 04/16 [facility] CHEM PANEL Creatinine 1.15 0.50 - 04/16 MH Lvl 1.40 [facility] CHEM PANEL Calcium Lvl 8.6 8.5 - 10.5 04/16 [place] CHEM PANEL AGAP 10.5 10.0 - 04/16 MH 20.0 [facility] CHEM PANEL Glucose Lvl 100 70 - 99 04/16 [facility] HEMATOLOGY Hct 38.9 36.0 - 04/16 MH 48.0 [facility] HEMATOLOGY Hgb 13.5 12.0 - 04/16 MH 16.0 [facility] HEMATOLOGY MPV 9.0 7.4 - 10.4 04/16 [place] HEMATOLOGY Platelet 133 133 - 450 04/16 [facility] HEMATOLOGY MCHC 34.7 32.0 - 04/16 MH 36.0 [facility] HEMATOLOGY MCV 96.7 80.0 - 04/16 MH 98.0 [place] HEMATOLOGY RDW 12.9 11.5 - 04/16 MH 14. [facility] HEMATOLOGY MCH 33.6 27.0 - 04/16 MH 31.0 [place] HEMATOLOGY WBC 3.9 3.7 - 10.4 04/16 [place] HEMATOLOGY RBC 4.02 4.20 - 04/16 MH 5.40 [place] LIPIDS VLDL 44 04/16 [place] LIPIDS LDL 87 <=99 mg/dL 04/16 (Calculated) [facility] LIPIDS HDL 49 >=61 mg/dL 04/16 [place] LIPIDS Chol 180 <=199 04/16 mg/dL [facility] LIPIDS Trig 220 <=149 04/16 mg/dL [facility] LIPIDS CHD Risk 3.67 3.90 - 04/16 MH 5.80 [facility] SPECIAL Hgb A1C 5.5 <=5.6 % 04/16 CHEMISTRY /2017 [place] CARDIAC Troponin-I <0.02 0.00 - 09 MH ENZYMES 0.40 [place] CHEM PANEL Lactic Acid 0.7 0.5 - 2.2 09 MH Lvl /2018 [place] CHEM PANEL Lipase Lvl 87 73 - 393 04/15 MH [place] CARDIAC Troponin-I <0.02 0.00 - 09 MH ENZYMES 0.40 [place] CARDIAC Total CK 109 12 - 191 04/15 MH ENZYMES [place] CARDIAC proBNP 64 0 - 125 04/15 MH ENZYMES [facility] CHEM PANEL A/G Ratio 1.2 0.7 - 1.6 09 MH [place] CHEM PANEL Globulin 3.3 2.7 - 4.2 04/15 MH [place] CHEM PANEL B/C Ratio 16 6 - 25 04/15 [place] CHEM PANEL AGAP 12.0 10.0 - 09 MH 20.0 /2017 [place] CHEM PANEL eGFR 83 04/15 Result Comment: The [facility] eGFR is calculated using the CKD-EPI formula. [...] Bili Total 0.5 0.2 - 1.3 04/15 [place] CHEM PANEL Alk Phos 82 39 - 136 04/15 [place] CHEM PANEL ALT 28 0 - 65 04/15 [place] CHEM PANEL AST 13 0 - 37 04/15 [place] CHEM PANEL Total 7.1 6.4 - 8.4 04/15 Protein [facility] CHEM PANEL Calcium Lvl 9.6 8.5 - 10.5 04/15 [place] CHEM PANEL CO2 28 24 - 32 04/15 [place] CHEM PANEL Potassium 4.0 3.5 - 5.1 04/15 MH Lvl /2017 [place] CHEM PANEL Chloride Lvl 110 95 - 109 04/15 [place] CHEM PANEL Sodium Lvl 146 135 - 145 04/15 [place] CHEM PANEL Creatinine 0.79 0.50 - 09 MH Lvl 1.40 [place] CHEM PANEL BUN 13 7 - 22 04/15 [place] CHEM PANEL Glucose Lvl 89 70 - 99 04/15 [facility] CHEM PANEL Albumin Lvl 3.8 3.5 - 5.0 04/15 [facility] CHEM PANEL Magnesium 2.3 1.8 - 2.4 04/15 MH Lvl [facility] CHEM PANEL Phosphorus 3.7 2.5 - 4.5 04/15 [facility] ENDOCRINOLOG S Preg Negative Negative 04/15 Y *NA* /2017 [place] (04/15/18 10:16 AM) HEMATOLOGY WBC 4.9 3.7 - 10.4 04/15 [place] HEMATOLOGY Hgb 15.2 12.0 - 04/15 MH 16.0 [facility] HEMATOLOGY RBC 4.61 4.20 - 04/15 MH 5.40 [place] HEMATOLOGY MCHC 33.6 32.0 - 04/15 MH 36.0 [facility] HEMATOLOGY Hct 45.3 36.0 - 04/15 MH 48.0 [facility] HEMATOLOGY MCV 98.2 80.0 - 04/15 MH 98.0 [facility] HEMATOLOGY MCH 33.0 27.0 - 04/15 MH 31.0 [place] HEMATOLOGY MPV 8.8 7.4 - 10.4 04/15 [place] HEMATOLOGY RDW 12.6 11.5 - 04/15 MH 14.5 [facility] HEMATOLOGY Platelet 163 133 - 450 04/15 [facility] HEMATOLOGY Lymphocytes 39.1 20.0 - 04/15 MH 40.0 [facility] HEMATOLOGY Eosinophils 2.5 0.0 - 4.0 04/15 [facility] HEMATOLOGY Segs 50.6 45.0 - 04/15 MH 75.0 [facility] HEMATOLOGY Lymphocytes 1.9 1.0 - 5.5 04/15 # /2018 [facility] HEMATOLOGY Neutrophils 2.5 1.5 - 8.1 04/15 # /2017 [facility] HEMATOLOGY Monocytes 7.1 2.0 - 12.0 04/15 [facility] HEMATOLOGY Basophils 0.7 0.0 - 1.0 04/15 [facility] HEMATOLOGY Eosinophils 0.1 0.0 - 0.5 04/15 # /2017 [place] HEMATOLOGY Monocytes # 0.3 0.0 - 0.8 04/15 [place] CARDIAC Troponin-I <0.02 0.00 - 12/14 [facility] ENZYMES 0.40 [facility] CARDIAC CK MB Index 2.7 0.0 - 2.5 12/14 [facility] ENZYMES /2017 [facility] CARDIAC Troponin-I <0.02 0.00 - 12/14 [facility] ENZYMES 0.40 [facility] CARDIAC Total CK 119 12 - 191 12/14 [facility] /2017 [facility] CARDIAC CK MB 3.2 0.5 - 3.6 12/14 [facility] CHEM PANEL eGFR 87 12/14 [facility] Comment: The Medical eGFR is Center calculated [...] PANEL Globulin 3.1 2.7 - 4.2 12/14 [facility] CHEM PANEL Alk Phos 78 39 - 136 12/14 [facility] CHEM PANEL AST 12 0 - 37 12/14 2017 [facility] CHEM PANEL ALT 24 0 - 65 05 [place] [facility] CHEM PANEL Albumin Lvl 3.2 3.5 - 5.0 12/14 [place] [facility] CHEM PANEL Total 6.3 6.4 - 8.4 12/14 [facility] Protein /2017 [facility] CHEM PANEL CO2 23 24 - 32 05 [place] 2017 [facility] CHEM PANEL Calcium Lvl 8.9 8.5 - 10.5 12/14 [place] as /2017 [facility] CHEM PANEL A/G Ratio 1.0 0.7 - 1.6 12/14 [place] 2017 [facility] CHEM PANEL AGAP 14.1 10.0 - 05 [place] 20.0 [facility] CHEM PANEL B/C Ratio 22 6 - 25 12/[address] CHEM PANEL Bili Total 0.2 0.2 - 1.3 12/[address] CHEM PANEL Sodium Lvl 143 135 - 145 12/14 [facility]2017 [facility] CHEM PANEL Chloride Lvl 110 95 - 109 12/14 [place] [facility] CHEM PANEL Potassium 4.1 3.5 - 5.1 12/14 [place] Lvl /2017 [facility] CHEM PANEL Creatinine 0.76 0.50 - 12/14 [place] Lvl 1.40 /2017 [facility] CHEM PANEL BUN 17 7 - 22 12/[address] CHEM PANEL Glucose Lvl 101 70 - 99 12/[address] HEMATOLOGY Monocytes # 0.4 0.0 - 0.8 12/14 [place] [facility] HEMATOLOGY Eosinophils 0.1 0.0 - 0.5 12/14 [place] # /2017 [facility] HEMATOLOGY Segs 48.7 45.0 - 12/14 [place] 75.0 [facility] HEMATOLOGY Lymphocytes 39.8 20.0 - 12/14 [place] 40.0 2018 [facility] HEMATOLOGY Monocytes 8.3 2.0 - 12.0 12/14 [facility]2017 [facility] HEMATOLOGY Eosinophils 2.7 0.0 - 4.0 12/[place]2018 [facility] HEMATOLOGY Lymphocytes 2.0 1.0 - 5.5 12/14 [place] # /2018 [facility] HEMATOLOGY Basophils 0.5 0.0 - 1.0 12/[address] HEMATOLOGY Segs-Bands # 2.5 1.5 - 8.1 12/14 [place] as /2017 [facility] HEMATOLOGY MCHC 33.5 32.0 - 12/14 [place] 36.0 [facility] HEMATOLOGY MPV 9.2 7.4 - 10.4 12/14 [facility] HEMATOLOGY Platelet 133 133 - 450 12/14 [facility] HEMATOLOGY RDW 13.0 11.5 - 12/14 14.5 [facility] HEMATOLOGY MCH 32.8 27.0 - 12/14 [place] 31.0 [facility] HEMATOLOGY Hct 43.1 36.0 - 12/14 [facility] 48.0 [facility] HEMATOLOGY Hgb 14.4 12.0 - 12/14 [facility] 16.0 [facility] HEMATOLOGY MCV 97.9 80.0 - 12/14 [facility] 98.0 [facility] HEMATOLOGY RBC 4.40 4.20 - 12/14 [facility] 5.40 /2017 [facility] HEMATOLOGY WBC 5.1 3.7 - 10.4 12/14 [facility] Pathology Reports No Data Provided for This Section Diagnostic Reports Report Value Date Source Chest/Abd/Pelvis PROCEDURE: CTA CHEST ABDOMEN AND PELVIS WITH CONTRAST 04/15/2018 [facility] CTA CLINICAL INDICATION: Persist ent left jaw [...] 4. Otherwise normal exam. END REPORT SL: [id number] Chest 2 views DX CHEST TWO VIEW 04/15/2018 [facility] INDICATION: 19 pain left jaw since yesterday. No injury. Headache for the past 2 days. Patient denies chest pain. COMPARISON: 12/14/2017 chest x-ray FINDINGS: The lungs are hany r. The pleura, cardiomediastinal silhouette and bony thorax are normal. IMPRESSION: Negative. END IMPRESSION SL: [id number] Chest 1view DX EXAM: XR CHEST 1 VIEW 12/14/2017 [facility] edical DATE: 12/14/2017 7:07 AM CDT [facility] er INDICATION: - chest pain COMPARISON: None [...] Date Comments Source Heart Rate 65 04/16/2018 [facility] Respitory Rate 17 04/16/2018 [facility] Temperature Oral (F) 98.1 F 04/16/2018 [place] Systolic (mm Hg) 113 04/16/2018 [place] Diastolic (mm Hg) 59 04/16/2018 [place] Heart Rate 57 04/16/2018 [facility] Temperature Oral (F) 98.1 F 04/16/2018 [place] Systolic (mm Hg) 130 04/16/2018 [place] Diastolic (mm Hg) 73 04/16/2018 [facility] [place] Respitory Rate 18 04/16/2018 [place] Respitory Rate 18 04/16/2018 [facility] Heart Rate 60 04/16/2018 [facility] Temperature Oral (F) 97.9 F 04/16/2018 [place] Systolic (mm Hg) 116 04/16/2018 [place] Diastolic (mm Hg) 69 04/16/2018 [place] Height 175.26 cm 04/15/2018 [facility] BMI Calculated 26.7 04/15/2018 [facility] Weight 82 04/15/2018 [facility] Systolic (mm Hg) 128 12/14/2017 [facility] dical Center Diastolic (mm Hg) 73 12/14/2017 [facility] Temperature Oral (F) 97.7 F 12/14/2017 [facility] Respitory Rate 20 12/14/2017 [facility] Respitory Rate 18 12/14/2017 [facility] Center Systolic (mm Hg) 136 12/14/2017 [facility] dical Center Diastolic (mm Hg) 67 12/14/2017 [facility] BMI Calculated 26.64 12/14/2017 [facility] Weight 81.818 12/14/2017 [facility] Height 175.26 cm 12/14/2017 [facility] Respitory Rate 27 12/14/2017 [facility] Center Systolic (mm Hg) 120 12/14/2017 [facility] dical Center Diastolic (mm Hg) 66 12/14/2017 [facility] Temperature Oral (F) 97.6 F 12/14/2017 [facility] Temperature Oral (F) 97.8 F 12/14/2017 [facility] Height 180.34 cm 12/14/2017 [facility] BMI Calculated 25.16 12/14/2017 [facility] Weight 81.818 12/14/2017 [facility] Heart Rate 79 12/14/2017 [facility] Encounters Location Location Encounter Encounter Reason Attending ADM DC Stat us Source Details Type Number For Provider Date Date Visit [facility] [id number] [place] 12/14 [facility] [id number] Miguel 04/15 04/16 [facility] Ajibade /2017 [facility] Procedures Procedure Code Date Perfomer Comments Source Appendectomy [id number] [facility] section [id number] [facility] Cholecystectomy [id number] [facility] Hysterectomy [id number] [facility] Assessment and Plan Assessment and Plan Date Source Extracted from:Title: Clinical Document 04/16/2018 [facility] Author: Mauricio Grijalva MD Date: 04/16/18 Cardiology [...] standpoint, the patient may follow with 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 Extracted from:Title: Damián Arreola [...] prophylaxis Extracted from:Title: History and Physical 12/14/2017 [facility] Author: Renea Kelly MD Date: 12/14/17 57 [...] History Date Source Social History TypeResponse 08/19/2013 [facility] Substance Abuse IV drug use: No. Alcohol Past, Previous treatment: None. Smoking Status Current some day smoker; Exposure to Tob acco Smoke None; Cigarette Smoking Last 365 Days No; Reg Smoking Cessation Counseling Yes entered on: 12/14/17 Social History TypeResponse 08/19/2013 [facility] Substance Abuse IV drug use: No. Alcohol [...]
--- OUTSIDE RECORDS SUMMARY | 2020-06-22 09:42 | XMS REPORT | Continuity of Care Document ---
:1960 Author Organization [facility] t Address [address] [place] [address] Care Team Providers Name Role Phone Bernarda Steel Attending Clinician Martha Kelly Attending Clinician Bernarda Steel Admitting Clinician Martha Kelly Admitting Clinician Problems Condition Condition Condition Status Onset Resolution Last Treating Co mments Source Name Details Category Date Date Treatment Clinician Date HIGH BLOOD Diagnosis Active 2018-04-15 Memoria PRESSURE 04-15 11:24:00 l HIGH 00:00: Johnson BLOOD 00 PRESSURE Active 04/15/2018 [facility] Johnson ACS Diagnosis Active 2018-04-16 Mem oria 04-15 17:32:00 l ACS 00:00: Johnson 00 Active 04/15/2018 [facility] CARDAIC Diagnosis Active 2017-12-14 Me moria 12-14 09:29:00 l CARDAIC 00:00: [place] 00 Active 12/14/2017 [facility] CHEST PAIN Diagnosis Active 2017-12-18 Memoria 12-14 15:17:00 l CHEST 00:00: [place] PAIN 00 Active 12/14/2017 [facility] CHRISTY Diagnosis Active 2018-0 2017-12-14 Memoria BILLING 12-14 16:36:00 l 00:00: [place] CHRISTY 00 BILLING Active 12/14/2017 [facility] Epigastric Problem 2018-11-03 M emoria pain 13:22:34 l Johnson Epigastric pain 9 [facility] Essential Problem 2018-11-03 Me moria (primary) 13:22:34 l hypertensi Gallo n on Essential (primary) hypertensi on 11/03/2018 [facility] Hyperosmol Problem 2018-11-03 M emoria ality and 13:22:34 l hypernatre Gallo n susi Hyperosmol ality and hypernatre susi 11/03/2018 [facility] Other Problem 2018-11-03 Memor ia chest pain 13:22:34 l Other Johnson chest pain 11/03/2018 [facility] Headache Problem 2018-11-03 Mem oria 13:22:34 l Headache Gallo n 11/03/2018 [facility] Nausea Problem 2018-11-03 Memor ia 13:22:34 l Nausea Hermosa 11/03/2018 [facility] Pain in Problem 2018-11-03 Abdiel princess left arm 13:22:34 l Pain in Hermosa left arm 11/03/2018 [facility] Diverticul Problem 2018-11-03 M emoria osis of 13:22:34 l small Johnson intestine Diverticul without osis of perforatio small n or intestine abscess without without perforatio bleeding n or abscess without bleeding 11/03/2018 [facility] Nicotine Problem 2018-11-03 Mem oria dependence 13:22:34 l , Nicotine Gallo n cigarettes dependence , , uncomplica cigarettes yariel , uncomplica yariel 11/03/2018 [facility] Family Problem 2018-11-03 Memor ia history of 13:22:34 l ischemic Family Gallo n heart history of disease ischemic and other heart diseases disease of the and other 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 11/03/2018 [facility] Hypertensi Problem Resolve 2018-11-03 Memoria ve d 13:22:34 l disorder, Johnson systemic Hypertensi arterial ve (disorder) disorder, systemic arterial (disorder) Resolved Problem 11/03/2018 [facility] Smoker Problem Resolve 2018-11-03 Abdiel princess (finding) d 13:22:34 l Smoker Johnson (finding) Resolved Problem 11/03/2018 [facility] CHEST Diagnosis Active 2017-12-18 Mem oria PAIN, 15:17:00 l UNSPECIFIE CHEST Kamini nn D PAIN, UNSPECIFIE D Active [facility] ACUTE Diagnosis Active 2018-04-16 Mem oria ISCHEMIC 17:32:00 l HEART ACUTE Hermosa DISEASE, ISCHEMIC UNSPECIFIE HEART DISEASE, UNSPECIFIE Active [facility] Johnson Jaw pain Problem 2018-11-03 2018-11-03 Memoria 9-19 13:22:34 13:22:34 l Jaw pain 04:15: Gallo n 39 04/21/2018 11/03/2018 [facility] Allergies, Adverse Reactions, Alerts Allergy Allergy Status Severity Reaction(s) Onset Inactive Treating Comm ents Source Name Type Date Date Clinician Soma Adverse Active It[facility] Morphine Adverse Active Itch [facility] Sulfate [facility] Bactrim Adverse Active Itch [facility] Soma Soma Active [facility]oria l [place] Bactrim Bactrim Active [facility] Johnson Social History Social Habit Start Date Stop Date Quantity Comments Source Social History 2013-08-19 2013-08-19 Cesar ryan 11:22:15 11:22:15 Medications Ordered Filled Start Stop Current Ordering Indication Dosage Frequency Signature Comments Components Source Medication Medication Date Date Medication? Clinician (SIG) Name Name Amlodipine Amlodipine Yes Prashant [address] [facility] Besylate Besylate 6-25 [facility] - 00:00: evening [facility] 00 l Outpat[facility] ent Clinics Citalopram Citalopram 2019-0 Yes Prashant [address] [facility] Hydrobromid Hydrobromid 6-23 [facility] Restoril Restoril 2019-0 Yes Prashant [address] [facility] 6-23 [facility] at bedtime [facility] 00:[facility]: as needed [facility] Vitamin Vitamin 2019-0 Yes Prashant [address] D-1000 Max D-1000 Max 5-07 [facility] St 00:00: Memoria 00 l Outpati ent Clinics Aspirin 325 No Notes: (Do Memoria MG Enteric 04-16 Not Crush) l Coated 14:00: Do not Hermosa Tablet 00 crush or chew. Saline No Notes: Memoria Flush 0.9% 04-16 (Same as: l 02:00: BD Johnson Posiflush) NIFEdipine Yes 90 mg = 1 [...] 0.9% 04-15 (Same as: l 18:45: BD Johnson Posiflush) Ondansetron No Notes: Abdiel princess 04-15 (Same as: l 18:45: Zofran) Hermosa 00 Acetaminoph No Notes: Do M emoria en 04-15 not exceed l 18:45: 4 gm/day. Hermosa (Same as: Tylenol) Acetaminoph No Notes: Abdiel princess en 325 MG / 04-15 (Same as: l Hydrocodone 18:45: [place] Kamini nn Bitartrate 00 325/5) Do 5 MG Oral not exceed Tablet 4gm/day of acetaminop hen. Morphine No Notes: Memoria 04-15 (Same l 18:45: as:MORPhin e Sulfate) metoprolol No Notes: Memor ia tartrate 04-15 (Same as: l 18:45: Lopressor) Hermosa 00 Nitroglycer No Notes: Abdiel princess in 04-15 (Same l 18:45: as:Nitroqu ick, Nitrostat) "Do Not Crush" Sublingual tablet Lisinopril No Notes: Memor ia 04-15 (Same as: l 18:45: Prinivil, Zestril) Dilaudid No 1 mg, Memoria 04-15 Route: l 18:32: IVP, ONCE, Dosing Weight 82, kg, Priority: STAT, Start date: 04/15/18 13:32:00 CDT, Stop date: 04/15/18 13:32:00 CDT Nitroglycer No 1 inch, Mem oria in 0.02 04-15 Route: l MG/MG 17:32: TOP, Drug Hermosa Topical Form: Ointment OINT, Dosing Weight 82, kg, ONCE, Start date: 04/15/18 12:32:00 CDT, Stop date: 04/15/18 12:32:00 CDT Ondansetron No 4 mg, Memor ia 04-15 Route: l 17:31: IVP, Drug form: INJ, ONCE, Dosing Weight 82, kg, Priority: STAT, Start date: 04/15/18 12:31:00 CDT, Stop date: 04/15/18 12:31:00 CDT Morphine 0 No 4 mg, Memoria 04-15 Route: l 17:31: IVP, ONCE, Johnson 00 Dosing Weight 82, kg, Priority: STAT, Start date: 04/15/18 12:31:00 CDT, Stop date: 04/15/18 12:31:00 CDT Aspirin 0 No Notes: Memoria 04-15 Take with l 15:28: food. Saline 2018-0 No Notes: Memoria Flush 0.9% 9-13 (Same as: l 14:54: BD Posiflush) Protonix 2017-0 No Notes: Memoria 5-15 Tablet l 12:30: should not be chewed or crushed. (Same as: Protonix) Ibuprofen 2017-0 No 600 mg, 1 Mem oria -14 tab, l 20:47: Route: PO, Drug form: TAB, Q6H, Dosing Weight 81.818, kg, PRN Pain Score 1-3, Start date: 12/14/17 15:47:00 CDT, Duration: 30 day, Stop date: 01/13/18 15:46:00 CDT Morphine 2018-0 No 4 mg, Memoria -14 Route: l 12:50: IVP, ONCE, Dosing Weight 81.818, kg, Priority: STAT, Start date: 12/14/17 7:50:00 CDT, Stop date: 12/14/17 7:50:00 CDT Nitroglycer No Notes: Abdiel princess in 14 (Same l 12:30: as:Tridil) Final conc = 0.4 mg/ml. Premix bottle. Nitroglycer 2017-0 No 50 mg, 250 Memoria in 5-14 mL, Rate: l 12:29: Titrate, Start Dose: 10 microgram/ min, Titration: 10 microgram/ min every 5 minutes, Goal(s): Chest pain and SBP between 100 - 150 mmHg, Max Dose: 200 mcg/min, Route: IV, Dosing Weight 81.818 kg, Total Volume: 250, Start date: 12/01... Morphine 2018-0 No 4 mg, Memoria -14 Route: l 12:07: IVP, ONCE, Johnson 00 kg, Priority: STAT, Start date: 12/14/17 7:07:00 CDT, Stop date: 12/14/17 7:07:00 CDT Ondansetron 2017-0 No 4 mg, Memor ia 14 Route: l 12:07: IVP, ONCE, Johnson 00 kg, Priority: STAT, Start date: 12/14/17 7:07:00 CDT, Stop date: 12/14/17 7:07:00 CDT Saline 2018-0 No Notes: Memoria Flush 0.9% 5-14 Same as: l 12:07: BD Hermosa 00 Posiflush Sterile Symbicort Symbicort Yes Prashant [address] [facility] Promethazin Promethazin Yes Prashant [address] e HCl e HCl [facility] Losartan Losartan Yes Prashant [address] Potassium Potassium [facility] Vital Signs Vital Name Observation Time Observation Value Comments Source Heart Rate 2018-04-16 16:43:00 [facility] Respitory Rate 2018-04-16 16:43:00 Memori al Johnson Temperature Oral (F) 2018-04-16 16:43:00 98.1 F [facility] Systolic (mm Hg) 2018-04-16 16:43:00 Abdiel rial Herm[place] Diastolic (mm Hg) 2018-04-16 16:43:00 Mem orial Herm[place] Heart Rate 2018-04-16 12:33:00 [facility] Temperature Oral (F) 2018-04-16 12:33:00 98.1 F [facility] Systolic (mm Hg) 2018-04-16 12:33:00 Abdiel rial Johnson Diastolic (mm Hg) 2018-04-16 12:33:00 Mem orial Johnson Respitory Rate 2018-04-16 12:33:00 Memori al Herm[place] Respitory Rate 2018-04-16 08:19:00 Memori al Johnson Heart Rate 2018-04-16 08:19:00 [facility] Temperature Oral (F) 2018-04-16 08:19:00 97.9 F [facility] Systolic (mm Hg) 2018-04-16 08:19:00 Abdiel rial Johnson Diastolic (mm Hg) 2018-04-16 08:19:00 Mem orial [place] Height 2018-04-15 14:08:00 175.26 cm [facility] BMI Calculated 2018-04-15 14:08:00 Memori al [place] Weight 2018-04-15 14:08:00 [facility] Systolic (mm Hg) 2017-12-14 20:44:00 Abdiel rial Johnson Diastolic (mm Hg) 2017-12-14 20:44:00 Mem orial Johnson Temperature Oral (F) 2017-12-14 20:44:00 97.7 F [facility] Respitory Rate 2017-12-14 20:44:00 Memori al Johnson Respitory Rate 2017-12-14 15:33:00 Memori al Johnson Systolic (mm Hg) 2017-12-14 15:33:00 Abdiel rial Herm[place] Diastolic (mm Hg) 2017-12-14 15:33:00 Mem orial [place] BMI Calculated 2017-12-14 15:23:00 Memori al [place] Weight 2017-12-14 15:23:00 [facility] Height 2017-12-14 15:23:00 175.26 cm [facility] Respitory Rate 2017-12-14 15:03:00 Memori al Johnson Systolic (mm Hg) 2017-12-14 15:03:00 Abdiel rial Johnson Diastolic (mm Hg) 2017-12-14 15:03:00 Mem orial [place] Temperature Oral (F) 2017-12-14 14:20:00 97.6 F [facility] Temperature Oral (F) 2017-12-14 12:18:00 97.8 F [facility] Height 2017-12-14 12:02:00 180.34 cm [facility] BMI Calculated 2017-12-14 12:02:00 Memori al Johnson Weight 2017-12-14 12:02:00 [facility] Heart Rate 2017-12-14 12:02:00 [facility] Procedures Procedure Date / Time Performed Performing Clinician [facility] Appendectomy [facility] section [facility] Gallo n Cholecystectomy [facility] Hysterectomy [facility] Encounters Start End Encounter Admission Attending Care Care Encounter Source Date/Time Date/Time Type Type Clinicians Facility Department ID 2020-06-20 2020-06-20 Outpatient STLMLC [facility]LMLC [id number] [facility] Outpati ent Clinics 2020-02-23 2020-02-23 [facility] [id number] [facility] 10:30:00 10:30:00 St[facility] [employer] [facility] Medicine Outpati ent Clinics 2020-02-02 2020-02-02 [facility] [id number] 16:15:00 16:15:00 t Hadley [employer] [facility]rist[facility] s - [facility] Medicine l Medicine Outpati ent Clinics 2020-01-26 2020-01-26 [facility] [id number] 09:02:00 09:02:00 t Hadley [employer] s - Drive [facility] Medicine Outpati ent Clinics 2020-01-25 2020-01-25 [facility] [id number] [address] 09:33:00 09:33:00 t Hadley [employer] s - [facility] Medicine l Medicine Outpati ent Clinics 2020-01-24 2020-01-24 [facility] [id number] 15:30:00 15:30:00 t Hadley [employer] [facility] Medicine Outpati ent Clinics 2020-01-23 2020-01-23 [facility] [id number] 08:26:00 08:26:00 t Quezada [employer] [facility] Medicine Outpati ent Clinics 2020-01-23 2020-01-23 [facility] [id number] 00:14:00 00:14:00 t [facility] [employer] [facility] Medicine Outpati ent Clinics 2020-01-06 2020-01-06 [facility] [id number] 08:06:00 08:06:00 t [employer] [facility] Medicine Outpati ent Clinics 2020-01-05 2020-01-05 [facility] [id number] 10[facility]30:00 10:30:00 t Hadley [employer] [facility] Medicine Medicine Outpati ent Clinics 2020-01-01 2020-01-01 [facility] [id number] 19:47:00 19:47:00 t [employer] [facility] Medicine Outpati ent Clinics 2019-12-13 2019-12-13 [facility] [id number] 13:27:00 13:27:00 t [facility] [employer] [facility] Medicine Outpati ent Clinics 2019-12-08 2019-12-08 [facility] [id number] [facility] 08:07:00 08:07:00 t Hadley Hadley [facility] - Drive [facility] Medicine l Medicine Outpati ent Clinics 2019-12-07 2019-12-07 [facility] [id number] [facility] 13:00:00 13:00:00 t Hadley Hadley Pneuron [employer] s - Drive [facility] Family Medicine l Medicine Outpati ent Clinics 2019-11-24 2019-11-24 [facility] [id number] 09:15:00 09:15:00 t Hadley Hadley Pneuron [employer] s - Drive [facility] Family Medicine l Medicine Outpati ent Clinics 2019-11-04 2019-11-04 [facility] [id number] 09:00:00 09:00:00 t Hadley [employer] s - Drive [facility] Medicine l Medicine Outpati ent Clinics 2019-10-13 2019-10-13 [facility] [id number] 14:30:00 14:30:00 t Hadley [employer] s - Drive [facility] Medicine Outpati ent Clinics 2018-04-15 2018-04-16 Outpatient Ajdonnell, PL [facility] [id number] 09:01:00 13:30:00 Miguel 00 Akinwale 2017-12-14 2017-12-14 Outpatient Robin, [facility] [id number] 07:00:00 17:10:00 Cerena K 67 Results Test Description Test Time Test Comments Results Result Comments Source CARDIAC ENZYMES 2018-04-16 <0.02 [facility] 05:17:00 CHEM PANEL 2018-04-16 53 [facility] Kamini [...] code = MCH) 33.6 pg 27.0-31.0 [facility] [id number] 05:17:003.9[facility] HermannHEMATOLOGY 2018-04-16 05:17:004.02[facility] SndnjkrUHELOA9092-98-24 05:17:00 Test Item Value Reference Range Interpretation Comments VLDL (test code = VLDL) 44 1 Memorial MltxcxcMKBQJJ8730-44-95 05:17:0087[facility] KdjmstiGQXVBL3535-32-01 05:17:0049[facility] NeyzjjsIBJMKI0162-24-38 05:17:05658Tipnsgdv HermannLIPIDS 2018-04-16 05:17:75965Rkpfmjsb VrdlmwzAZGREO7761-44-78 05:17:00 Test Item Value Reference Range Interpretation Comments CHD Risk (test code = CHD Risk) 3.67 1 3.90-5.80 [facility] HermannSPECIAL [id number] 05:17:005.5[facility] HermannCARDIAC [id number] 23:18:00<0.02[facility] HermannCHEM [id number] 18:29:00 0.7[facility] HermannCHEM [id number] 18:29:0087[facility] HermannCARDIAC EMJSIBO6427-43-16 17:49:00<0.02[facility] HermannCARDIAC [id number] 15:16:92187Ufvllljf HermannCARDIAC SEFXTKM6578-02-20 15:16:0064[facility] CHEM [id number] 15:16:00 Test Item Value Reference Range Interpretation Comments A/G Ratio (test code = A/G Ratio) 1.2 1 0.7-1.6 [facility] HermannCHEM [id number] 15:16:003.3[facility] HermannCHEM PANEL 2018-04-15 15:16:00 Test Item Value Reference Range Interpretation Comments B/C Ratio (test code = B/C Ratio) 16 1 6-25 [facility] HermannCHEM [id number] 15:16:0012.0[facility] HermannCHEM PANEL 2018-04-15 15:16:0083[facility] HermannCHEM [id number] 15:16:000.5[facility] HermannCHEM [id number] 15:16:0082[facility] HermannCHEM [id number] 15:16:0028[facility] HermannCHEM [id number] 15:16:0013[facility] HermannCHEM XZPHZ8153-38-04 15:16:007.1[facility] HermannCHEM MLQQB0482-92-66 15:16:009.6 [facility] HermannCHEM [id number] 15:16:0028[facility] HermannCHEM PANEL 2018-04-15 15:16:004.0[facility] HermannCHEM [id number] 15:16:19899Yvscblby HermannCHEM ZZJOJ0930-86-17 15:16:86359Trdhckrq HermannCHEM KCGYC4483-70-59 15:16:000.79[facility] HermannCHEM [id number] 15:16:0013[facility] HermannCHEM BYTCC7945-15-16 15:16:0089[facility] HermannCHEM TFXBE9052-33-30 15:16:003.8 [facility] HermannCHEM [id number] 15:16:002.3[facility] HermannCHEM PANEL 2018-04-15 15:16:003.7[facility] EdznnoxUUDVARYLNWFFJ2998-52-45 15:16:00Negative *NA*(04/15/18 10:16 AM)[facility] NoegpfpQAEXJQPGRN8521-94-06 15:16:004.9[facility] MtimxuzUANWCXVXBX2037-30-56 15:16:0015.2[facility] BpyhzvkLQNWMCMANU8194-29-59 15:16:004.61[facility] YzdafiaFQEMWXWEXX5620-88-38 15:16:0033.6[facility] VEOFIRPJDH4157-07-64 15:16:0045.3[facility] CvqkgzdAAQOVIGZIV2006-51-14 15:16:00 98.2[facility] JcxsbtwCTKWCMJUTM7620-29-85 15:16:00 Test Item Value Reference Range Interpretation Comments MCH (test code = MCH) 33.0 pg 27.0-31.0 Memorial ZtbpemfNQEHBTSUHJ8153-23-35 15:16:008.8[facility] HermannHEMATOLOGY 2018-04-15 15:16:0012.6[facility] XvugiyyOGKVDFCWYQ5589-28-93 15:16:83787Tuhctsrz QbqmfgnRFUZTUEVAR1992-57-44 15:16:0039.1[facility] ZbantgcQBWZZKQIFD2541-13-07 15:16:002.5[facility] DyzvjxuPVBUZKXETV4456-48-66 15:16:0050.6[facility] KPHWXNTSLB7707-52-00 15:16:001.9[facility] DldsdwgLVPEOUEPLC7410-69-39 15:16:002.5 [facility] PsbuhiuOKMTXWXLBM6165-92-03 15:16:007.1[facility] HermannHEMATOLOGY 2018-04-15 15:16:000.7[facility] RxjciuvQNFCSBPBED3728-34-25 15:16:000.1[facility] OurhamgFEDNSCOLNJ5473-26-81 15:16:000.3[facility] HermannCARDIAC FRUPPNF4937-32-96 18:17:00<0.02[facility] HermannCARDIAC [id number] 12:22:00 Test Item Value Reference Range Interpretation Comments CK MB Index (test code = CK MB Index) 2.7 1 <=2.5 [facility] HermannCARDIAC [id number] 12:22:00<0.02[facility] CARDIAC [id number] 12:22:82850Smoevpqq HermannCARDIAC HAQIIHE0129-70-30 12:22:003.2[facility] HermannCHEM [id number] 12:22:0087[facility] HermannCHEM [id number] 12:22:003.1[facility] HermannCHEM WYTXI8965-29-25 12:22:0078 [facility] HermannCHEM HVHHF1135-04-60 12:22:0012[facility] HermannCHEM PANEL 2017-12-14 12:22:0024Mem[facility] HermannCHEM [id number] 12:22:003.2[facility] HermannCHEM [id number] 12:22:006.3[facility] HermannCHEM [id number] 12:22:0023[facility] HermannCHEM [id number] 12:22:008.9[facility] HermannCHEM [id number] 12:22:00 Test Item Value Reference Range Interpretation Comments A/G Ratio (test code = A/G Ratio) 1.0 1 0.7-1.6 [facility] HermannCHEM [id number] 12:22:0014.1[facility] HermannCHEM PANEL 2017-12-14 12:22:00 Test Item Value Reference Range Interpretation Comments B/C Ratio (test code = B/C Ratio) 22 1 6-25 [facility] HermannCHEM [id number] 12:22:000.2[facility] HermannCHEM PANEL 2017-12-14 12:22:07022Mziotjsm HermannCHEM [id number] 12:22:31298Aqndwlba HermannCHEM IIEVG3449-21-71 12:22:004.1[facility] HermannCHEM [id number] 12:22:000.76[facility] HermannCHEM QBCLH5066-90-80 12:22:0017[facility] HermannCHEM [id number] 12:22:40060Iittvggm XcffxggKCAXLISXAT0770-51-70 12:22:000.4 Memorial KbdrtokTSJQSQTKEN8149-02-56 12:22:000.1[facility] HermannHEMATOLOGY 2017-12-14 12:22:0048.7[facility] SxueiggXBVKXBXXJD6630-24-27 12:22:0039.8[facility] RfbngmcZMIOFWPMWL5371-05-27 12:22:008.3[facility] ViavksiMLFDOEBPWG8364-75-68 12:22:002.7[facility] KeowmohCXIFRTWJBN7460-63-39 12:22:002.0[facility] LZAANMHAGN5101-85-53 12:22:000.5[facility] CkhexywIWOKFOBRWB2984-87-31 12:22:002.5 [facility] HjzgcnyXETEOLLEYC9489-56-25 12:22:0033.5[facility] HermannHEMATOLOGY 2017-12-14 12:22:009.2[facility] CyhqdnmZASOYJQJBC7282-08-04 12:22:87061Tfcypmlu RptxpqyMBOSSIUESM4277-27-12 12:22:0013.0[facility] SwhafyoQWITFQXWYE9596-28-51 12:22:00 Test Item Value Reference Range Interpretation Comments MCH (test code = MCH) 32.8 pg 27.0-31.0 Memorial WxvukwnBIQKVKJMVC2893-96-64 12:22:0043.1[facility] HermannHEMATOLOGY 2017-12-14 12:22:0014.4[facility] BigeweoQWFRHDYXRJ9287-09-53 12:22:0097.9[facility] UedoxctXQXOIWTYZJ0539-26-34 12:22:004.40[facility] AhayurzTQRXZENAZY7583-90-05 12:22:005.1[facility]
--- OUTSIDE RECORDS SUMMARY | 2020-06-22 09:42 | XMS REPORT ---
:1960 Author Organization [facility] Address [address] [place] [place] [address] Care Team Providers Name Role Phone Villa Unavailable [phone] PROBLEMS Type Condition ICD9-CM VEP23-DP Onset Condition SNOMED Code Notes Code Code Dates Status Problem Mixed E78.2 Active 196540298 hyperlipidemia Problem Vitamin D E55.9 Active 86109986 deficiency disease Problem Vitamin D E55.9 Active 60931424 deficiency Problem Moderate J45.41 Active 508082343 persistent asthma with exacerbation Problem Incontinence of R15.9 Active 70095984 feces, unspecified fecal incontinence type Problem Essential I10 Active 82759111 hypertension Problem Other chronic pain G89.29 Active 90388900 Problem Tobacco use F17.200 Active 828448511 disorder Problem Contracture of M24.549 Active 099891016 hand Problem Difficulty G47.9 Active 216878823 sleeping Problem Anxiety about F41.8 Active 681767631 health Problem Family history of Z82.49 Active 207157399 heart disease ALLERGIES Allergen (clinical drug Drug/Non Drug Reaction Allergy Type Onset D ate Status ingredient) Allergy documented on EMR morphine Morphine Itch Drug Allergy Active Sulfate(NDC Code:[address]-98) sulfamethoxazole / Bactrim(NDC Itch Drug Allergy Act osvaldo trimethoprim Code:[address]-00) carisoprodol Soma(NDC Itch Drug Allergy Active Code:[address]-34) ENCOUNTERS from 1960 to 2020-06-21 Encounter Location Date Provider Diagnosis [place] [address] [place], Prashant Villa [address] [place], [address] ; [place] [address] stress Z56.6 ; Contracture of hand M24.549 ; Diffi culty sleeping G47.9 ; Bilateral leg c ramps R25.2 ; Anxiety about health F41.8 ; Renal insufficiency N 28.9 ; Tobacco use dis order F17.200 ; Predi abetes R73.03 ; Mixed hyperlipidemia E78.2 ; Elevated MCV R7 1.8 ; Tobacco abuse counseling Z71. 6 ; Family history of diabetes mellit us Z83.3 ; Family histor y of heart disease Z 82.49 ; Fatigue, unspec ified type R53.83 ; V itamin D deficiency dise ase E55.9 ; Inconti nence of feces, unspecif ied fecal incontine nce type R15.9 ; Pain in left knee M25.562 ; Other chronic pain G8 9.29 ; Need for influe nza vaccination Z23 and Need for pneumo coccal vaccination Z23 IMMUNIZATIONS Vaccine Route Administration Date Status Afluria single dose IM Intramuscular Jun 20, 2020 Administere d Pneumovax (PPSV23) IM Intramuscular Jun 20, 2020 Administered Kenalog (Triamcinolone) IM Intramuscular October 13, 2019 Adminis tered SOCIAL HISTORY Tobacco Use: Social History Observation Description Date Details (start date - stop date) Current Smoker Sex Assigned At : Social History Observation Description Sex Assigned At Unknown Alcohol Screen Question Answer Notes Did you have a drink containing alcohol in the past Yes year? Points 1 Interpretation Negative How often did you have a drink containing alcohol in Monthly or less (1 point) the past year? Tobacco Use/Smoking Question Answer Notes Are you a current smoker How many cigarettes a day do you smoke? 5 or less How often do you smoke cigarettes? every day REASON FOR REFERRAL No Information VITAL SIGNS Height 69 in Jun, Height 69 in Jun, Height 69 in Jun, Weight 187.4 lbs Jun, Temperature 97.2 degrees Fahrenheit Jun, BMI 27.67 kg/m2 Jun, Oximetry 97 % Jun, Respiratory Rate 16 /min Jun, Blood pressure systolic 129 mm Hg Jun, Blood pressure diastolic 72 mm Hg Jun, MEDICATIONS Medication SIG (Take, Route, Notes Start Date End Date Status Frequency, Duration) Losartan Potassium 100 1 tablet Orally Once a Active MG day for 30 day(s) Symbicort 160-4.5 2 puffs Inhalation Not-Taking MCG/ACT Twice a day Citalopram Hydrobromide 1 tablet Orally Once a Active 10 MG day for 30 day(s) Restoril 15 MG 1 capsule at bedtime Active as needed Orally Once a day for 30 days Vitamin D-[address] 25 2 tablet Orally Once a 07 December, 20 Active MCG (1000 UT) day for 30 day(s) Osteo Bi-Flex Triple Acti ve Strength Promethazine HCl 6.25 10 ml as needed Orally Not-Taking MG/5ML every 6 hrs Vitamin C Active Amlodipine Besylate 10 1 tablet in the Active MG evening Orally Once a day PROCEDURES No Information RESULTS No Results REASON FOR VISIT 3 month f/u with lab/s MEDICAL (GENERAL) HISTORY Type Description Date Surgical History Appendectomy 1971 Surgical History C sections ,1978 Surgical History Hysterectomy 1981 Goals Section No Information Health Concerns No Information MEDICAL EQUIPMENT No Information MENTAL STATUS No Information FUNCTIONAL STATUS No Information ASSESSMENTS Encounter Date Diagnosis Assessment Notes Treatment Notes Treatm ent Clinical Notes Jun, Essential Intermittnet hypertension (ICD-10 controlled with - I10) current regimen. UPcoming appt with Cardio. Education given. Asympotmatic at this time. DASH Diet discussed. Instructed to measure BP at home and bring in log to f/u appt. Instructions and logs given. Education given. , HTN Education This is a condition that puts at risk for heart attack, stroke, and kidney disease. Lifestyle modification, low fat/low salt diet, exercise, low alcohol intake and medication is utilized to help control your BP. Untreated HTN increases the strain on the heart and arteries, eventually causing organ damage.Normal BP is less than 140/90. High BP is greater than 140/90. If your BP is not controlled, call your doctor. Medication may need to be adjusted and/or added. Compliance with medication is vital. If you have chest pain, shortness of breath, severe nausea/vomiting, fatigue, and other symptoms, you will need to contact your doctor or go to the ER immediately to address. 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 _update: Patient has left that job and feels MUCH better. Jun, Contracture of hand Discussed (ICD-10 - M24.549) differential diagnosis patient. Education given. IMPROVING Jun, Difficulty sleeping Discussed DDX. (ICD-10 - G47.9) Education given. Working well with Restirol. Tolerating it well. Side effect discussed. Discussed good sleep hygiene. Jun, Bilateral leg cramps Discussed (ICD-10 - R25.2) differential diagnosis extensively with patient. Education given. Likely exacerbation due to his statin 2 weeks ago. Will discontinue at this time. Encouraged to make dietary lifestyle changes. Will obtain electrolyte labs. Increase hydration. Encouraged to do massage prior to going to bed. Discussed supportive measures for symptomatic relief. Jun, Anxiety about health Actively listented. (ICD-10 - F41.8) Support given. Discussed treatment options. Medication + Counseling/Therapy. Infomation provided for psychologist for therapy options, encouraged to call to make an appt. Cont Celexa 10 mg and titrate as tolerated. Instructions and side effects discussed. -- Anxiety Education: Anxiety is a feeling of anxiousness or nervousness. Being extremely anxious or worried on most days for 6 months or longer is not normal. This is a type of anxiety disorder. This disorder can make it hard to do everyday tasks. Other types of anxiety include: post traumatic stress disorder, panic disorder, and phobias. Symptoms of anxiety may include: feeling worried or on the edge, trouble sleeping, or forgetting things. Feelings of stomach aches or chest tightness is another common symptom. Medicine, exercise, and other treatments like counseling, talk therapy, yoga, and massages maybe necessary to treat this disorder. Jun, Renal insufficiency Encouraged to (ICD-10 - N28.9) increase hydration. Will repeat labs. Jun, Tobacco use disorder Strongly encourged (ICD-10 - F17.200) on cessation. Education given. Counseling given. Pick a quit date. , Education, counseling done at this visit, offered web sites and medicine to help. We did discussed not only the CAD risk also the risk for multiples cancers, peripheral neuropathy, etc. www.quit.com gives you tip[s and tricks, quit smoking chelist, download my quit marcos and read quit smoking benefits too. More than 3 minutes were spent with patient. Will follow-up as well. Jun, Prediabetes (ICD-10 Diet-controlled. - R73.03) Education given. Recheck in 3 months. Jun, Mixed hyperlipidemia Stopped statin at (ICD-10 - E78.2) this time due to symptomatic. Patient wanting 3 additional months for dietary and lifestyle changes. Discussed risk versus benefits. Shared decision with patient., Hyperlipidemia Education: Hyperlipidemia refers to increased levels of lipids(fats) in the blood, including cholesterol and triglycerides. This can significantly increase your risk of developing coronary artery disease and peripheral artery disease. This can cause chest pain, heart attack, stroke, and fatigue. Treatment is recommended to decrease your risk. Treatment includes: lifestyle modification, low salt/low fat diet, exercise, tobacco cessation, low alcohol intake and sometimes medication. Blood tests (TC,TG, HDL, LDL) are utilized to determine treatment regimens. TC(Total cholesterol) should be below 200. TG(Total Triglycerides) should be below 150. HDL(Good cholesterol) should be above 40. LDL(Bad Cholesterol) should be below 130(if you have one risk factor) or less than 100( if you have more than one risk factor or have DM/CAD/PVD). Compliance with medication and treatment is vital. If you have questions, talk to your doctor. Jun, Elevated MCV (ICD-10 . Discussed - R71.8) differential diagnosis with patient. Education given. Will monitor Jun, Tobacco abuse counseling (ICD-10 - Z71.6) Jun, Family history of diabetes mellitus (ICD-10 - Z83.3) Jun, Family history of heart disease (ICD-10 - Z82.49) Jun, Fatigue, unspecified type (ICD-10 - R53.83) Jun, Vitamin D deficiency disease (ICD-10 - E55.9) Jun, Incontinence of Affecting ADLs. feces, unspecified Discussed fecal incontinence differential type (ICD-10 - diagnosis. Has not R15.9) had a colonoscopy recently. Will refer to GI for further evaluation management. Jun, Pain in left knee . Discussed (ICD-10 - M25.562) differential diagnosis. Education given. Discussed supportive measures for symptomatic relief. Will refer to orthopedic for further evaluation management. Avoid any exacerbating activity Jun, Other chronic pain (ICD-10 - G89.29) Jun, Need for influenza vaccination (ICD-10 - Z23) Jun, Need for pneumococcal vaccination (ICD-10 - Z23) Jun, Other -- Medication reviewed and updated. -- Dietary and Lifestyle modifications addressed regarding diet, exercise and weight managemen t. -- Treatment options, risks and benefits, side effects reviewed in detail. -- Advised on signs/symptoms to monitor and when to call clinic and/or visit the nearest ER. Patient verbalized understanding and agreeable with plan. PLAN OF TREATMENT Medication Medication Name Sig Start Date Stop Date Restoril 15 MG 1 capsule at bedtime as needed Orally Once a day for 30 days Losartan Potassium 100 MG 1 tablet Orally Once a day for 30 day(s) Amlodipine Besylate 10 MG 1 tablet in the evening Orally Once a day Citalopram Hydrobromide 10 MG 1 tablet Orally Once a day for 30 day(s) Treatment Notes Assessment Notes Clinical Notes Essential hypertension Intermittnet controlled with current regimen. UPcoming appt with Cardio. Education given. Asympotmatic at this time.DASH Diet discussed. Instructed to measure BP at home and bring in log to f/u appt. Instructions and logs given. Education given. , HTN Education This is a condition that puts at risk for heart attack, stroke, and kidney disease. Lifestyle modification, low fat/low salt diet, exercise, low alcohol intake and medication is utilized to help control your BP. Untreated HTN increases the strain on the heart and arteries, eventually causing organ damage.Normal BP is less than 140/90. High BP is greater than 140/90. If your BP is not controlled, call your doctor. Medication may need to be adjusted and/or added. Compliance with medication is vital. If you have chest pain, shortness of breath, severe nausea/vomiting, fatigue, and other symptoms, you will need to contact your doctor or go to the ER immediately to address. Pain in left knee . Discussed differential diagnosis. Education given. Discussed supportive measures for symptomatic relief. Will refer to orthopedic for further evaluation management. 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 _update: Patient has left that job and feels MUCH better. Contracture of hand Discussed differential diagnosis patient. Education given. IMPROVING Difficulty sleeping Discussed DDX. Education given. Working well with Restirol. Tolerating it well. Side effect discussed. Discussed good sleep hygiene. Bilateral leg cramps Discussed differential diagnosis extensively with patient. Education given. Likely exacerbation due to his statin 2 weeks ago. Will discontinue at this time. Encouraged to make dietary lifestyle changes. Will obtain electrolyte labs. Increase hydration. Encouraged to do massage prior to going to bed. Discussed supportive measures for symptomatic relief. Anxiety about health Actively listented. Support given. Discussed treatment options. Medication + Counseling/Therapy. Infomation provided for psychologist for therapy options, encouraged to call to make an appt. Cont Celexa 10 mg and titrate as tolerated. Instructions and side effects discussed. -- Anxiety Education: Anxiety is a feeling of anxiousness or nervousness. Being extremely anxious or worried on most days for 6 months or longer is not normal. This is a type of anxiety disorder. This disorder can make it hard to do everyday tasks. Other types of anxiety include: post traumatic stress disorder, panic disorder, and phobias.Symptoms of anxiety may include: feeling worried or on the edge, trouble sleeping, or forgetting things. Feelings of stomach aches or chest tightness is another common symptom.Medicine, exercise, and other treatments like counseling, talk therapy, yoga, and massages maybe necessary to treat this disorder. Renal insufficiency Encouraged to increase hydration. Will repeat labs. Incontinence of feces, unspecified Affecting ADLs. Discusse d fecal incontinence type differential diagnosis. Has not had a colonoscopy recently. Will refer to GI for further evaluation management. Elevated MCV . Discussed differential diagnosis with patient. Education given. Will monitor Tobacco use disorder Strongly encourged on cessation. Education given. Counseling given. Pick a quit date. , Education, counseling done at this visit, offered web sites and medicine to help. We did discussed not only the CAD risk also the risk for multiples cancers, peripheral neuropathy, etc. www.quit.com gives you tip[s and tricks, quit smoking chelist, download my quit marcos and read quit smoking benefits too. More than 3 minutes were spent with patient. Will follow-up as well. Prediabetes Diet-controlled. Education given. Recheck in 3 months. Mixed hyperlipidemia Stopped statin at this time due to symptomatic. Patient wanting 3 additional months for dietary and lifestyle changes. Discussed risk versus benefits. Shared decision with patient., Hyperlipidemia Education: Hyperlipidemia refers to increased levels of lipids(fats) in the blood, including cholesterol and triglycerides. This can significantly increase your risk of developing coronary artery disease and peripheral artery disease. This can cause chest pain, heart attack, stroke, and fatigue. Treatment is recommended to decrease your risk. Treatment includes: lifestyle modification, low salt/low fat diet, exercise, tobacco cessation, low alcohol intake and sometimes medication. Blood tests (TC,TG, HDL, LDL) are utilized to determine treatment regimens. TC(Total cholesterol) should be below 200. TG(Total Triglycerides) should be below 150. HDL(Good cholesterol) should be above 40. LDL(Bad Cholesterol) should be below 130(if you have one risk factor) or less than 100( if you have more than one risk factor or have DM/CAD/PVD). Compliance with medication and treatment is vital. If you have questions, talk to your doctor. Treatment Notes Test Name Order Date Lipid Panel With LDL/HDL Ratio 2020-06-21 Hemoglobin A1c 2020-06-21 Comp. Metabolic Panel (14) (CMP) 2020-06-21 Vitamin D, 25-Hydroxy 2020-06-21 Next Appt Details 3 Months + Labs 1 week Reason: Insurance Providers Payer Name Payer Payer Insured Name Patient Coverage Covera ge End Address Phone Relationship to Start Date Jay e Insured [employer] [phone] Cinthia Ladd self 2019 and Osmani [id number] [address] [place] [id number]
--- NOTE | 2020-06-22 10:19 | EDPHYS ---
Physician Documentation [facility] Name: Rhona Ladd Age: 59 yrs Sex: Female : 1960 Arrival Date: 06/22/2020 Time: 09:40 Bed 17 Private MD: Prashant Villa ED Physician Oscar Mendez HPI: 06/22 10:08 This 59 yrs old Female presents to ER via Ambulatory with complaints of rn Allergic Reaction. 10:08 The patient presents with localized swelling, redness of skin. rn 10:08 Onset: The symptoms/episode began/occurred 2 day(s) ago. Associated signs and symptoms: rn Pertinent positives: rash, swelling, Pertinent negatives: abdominal pain, fever, shortness of breath, vomiting. Possible causes: pneumonia vaccine. At home the patient or guardian has treated the symptoms with Benadryl. Severity of symptoms: At their worst the symptoms were mild in the emergency department the symptoms are unchanged. The patient has not experienced similar symptoms in the past. The patient has been recently seen by a physician:. Reports had pneumonia shot 2 days ago, that night began with right arm pain on side she got shot, no fever, + redness and warmth, reports swelling has gotten slightly worse. No sob/vomiting/rash elsewhere. . Historical: - Allergies: 10:01 Bactrim; ll1 10:01 Codeine; ll1 10:01 Morphine; ll1 10:01 Soma; ll1 - PMHx: 10:01 Asthma; Hypertension; ll1 - PSHx: 10:01 Hysterectomy; Cholecystectomy; Appendectomy; ll1 - Immunization history:: Pneumococcal vaccine is up to date, Flu vaccine is up to date. - Social history:: Smoking status: Patient/guardian denies using tobacco, Stopped _ months ago 2.5. - Family history:: not pertinent. - Hospitalizations: : No recent hospitalization is reported. ROS: 10:08 Constitutional: Negative for fever, chills, and weight loss, Eyes: Negative for injury, rn pain, redness, and discharge, ENT: Negative for injury, pain, and discharge, Neck: Negative for injury, pain, and swelling, Cardiovascular: Negative for chest pain, palpitations, and edema, Respiratory: Negative for shortness of breath, cough, wheezing, and pleuritic chest pain, Abdomen/GI: Negative for abdominal pain, nausea, vomiting, diarrhea, and constipation, MS/Extremity: Negative for injury and deformity, Skin: Negative for injury, + redness and swelling to right upper arm Neuro: Negative for headache, weakness, numbness, tingling, and seizure. Exam: 10:08 Constitutional: This is a well developed, well nourished patient who is awake, alert, rn and in no acute distress. ENT: no stridor Cardiovascular: Regular rate and rhythm. No pulse deficits. Respiratory: speaking full sentences, unlabored. Skin: Warm, dry, + redness and superficial swelling of right upper arm, no fluctuance, no streaking, from shoulder to a few inches proximal to right elbow. NO open wounds. Compartments soft. MS/ Extremity: Pulses equal, no cyanosis. Neurovascular intact. Vital Signs: 09:58 BP 137 / 81; Pulse 74; Resp 17; Temp 98.4; Pulse Ox 94% on R/A; Pain 10/10; ll1 10:36 BP 120 / 67; Pulse 70; Resp 17; Pulse Ox 97% on R/A; tw2 MDM: 09:56 Patient medically screened. rn 10:08 Differential diagnosis: localized allergic reaction, cellulitis. Data reviewed: vital rn signs, nurses notes, and as a result, I will discharge patient. Counseling: I had a detailed discussion with the patient and/or guardian regarding: the historical points, exam findings, and any diagnostic results supporting the discharge/admit diagnosis, the need for outpatient follow up, to return to the emergency department if symptoms worsen or persist or if there are any questions or concerns that arise at home. Special discussion: I discussed with the patient/guardian in detail that at this point there is no indication for admission to the hospital. It is understood, however, that if the symptoms persist or worsen the patient needs to return immediately for re-evaluation. Administered Medications: 10:20 Drug: SOLU-Medrol 125 mg Route: IM; Site: right vastus lateralis; tw2 10:38 Follow up: Response: No adverse reaction tw2 Disposition: 06/22/20 10:18 Discharged to Home. Impression: Cellulitis of right upper limb, Localized allergic reaction. - Condition is Stable. - Discharge Instructions: Cellulitis, Adult. - Prescriptions for Clindamycin HCl 300 mg Oral Capsule - take 1 capsule by ORAL route every 6 hours for 10 days; 40 capsule. Prednisone 20 mg Oral Tablet - take 3 tablet by ORAL route once daily for 5 days; 15 tablet. - Medication Reconciliation Form, Thank You Letter, Antibiotic Education, Prescription Opioid Use, Work release form form. - Follow up: Private Physician; When: 2 - 3 days; Reason: Recheck today's complaints, Re-evaluation by your physician. - Problem is new. - Symptoms have improved. Signatures: Oscar Mendez MD MD rn Cinthia Monte RN RN tw2 Pallavi Haskins RN RN ll1 Corrections: (The following items were deleted from the chart) 10:14 10:08 Constitutional: Negative for fever, chills, and weight loss, Eyes: Negative for rn injury, pain, redness, and discharge, ENT: Negative for injury, pain, and discharge, Neck: Negative for injury, pain, and swelling, Cardiovascular: Negative for chest pain, palpitations, and edema, Respiratory: Negative for shortness of breath, cough, wheezing, and pleuritic chest pain, Abdomen/GI: Negative for abdominal pain, nausea, vomiting, diarrhea, and constipation, MS/Extremity: Negative for injury and deformity, Skin: Negative for injury, + redness and swelling to right upper arm Neuro: Negative for headache, weakness, numbness, tingling, and seizure, rn 10:38 10:18 06/22/2020 10:18 Discharged to Home. Impression: Cellulitis of right upper limb; tw2 Localized allergic reaction. Condition is Stable. Forms are Medication Reconciliation Form, Thank You Letter, Antibiotic Education, Prescription Opioid Use. Follow up: Private Physician; When: 2 - 3 days; Reason: Recheck today's complaints, Re-evaluation by your physician. Problem is new. Symptoms have improved. rn
--- NOTE | 2020-06-22 10:19 | ER ---
Nurse's Notes [facility] Name: Rhona Ladd Age: 59 yrs Sex: Female : 1960 Arrival Date: 06/22/2020 Time: 09:40 Bed 17 Private MD: Prashant Villa Diagnosis: Cellulitis of right upper limb;Localized allergic reaction Presentation: 06/22 09:58 Chief complaint: Patient states: R upper arm redness, pain, swelling, warm to touch for ll1 the past two days. Had pneumonia vaccine in that arm 2 days ago. No fever, states she had chills. Coronavirus screen: Client denies travel out of the [place] in the last 14 days. At this time, the client does not indicate any symptoms associated with coronavirus-19. Ebola Screen: Patient denies travel to an Ebola-affected area in the 21 days before illness onset. Onset: The symptoms/episode began/occurred 2 day(s) ago. Anaphylaxis evaluation, the patient reports or I have noted the following symptoms which indicate a significant risk of anaphylaxis:. Initial Sepsis Screen: Does the patient meet any 2 criteria? No. Patient's initial sepsis screen is negative. Does the patient have a suspected source of infection? Yes: Skin breakdown/wound. Risk Assessment: Do you want to hurt yourself or someone else? Patient reports no desire to harm self or others. Onset of symptoms was June 20, 2020. 09:58 Method Of Arrival: Ambulatory ll1 09:58 Acuity: CHON 3 ll1 Historical: - Allergies: 10:01 Bactrim; ll1 10:01 Codeine; ll1 10:01 Morphine; ll1 10:01 Soma; ll1 - PMHx: 10:01 Asthma; Hypertension; ll1 - PSHx: 10:01 Hysterectomy; Cholecystectomy; Appendectomy; ll1 - Immunization history:: Pneumococcal vaccine is up to date, Flu vaccine is up to date. - Social history:: Smoking status: Patient/guardian denies using tobacco, Stopped _ months ago 2.5. - Family history:: not pertinent. - Hospitalizations: : No recent hospitalization is reported. Screenin: Abuse screen: Denies threats or abuse. Nutritional screening: No deficits noted. tw2 Tuberculosis screening: No symptoms or risk factors identified. Fall Risk None identified. Assessment: 10:20 General: Appears in no apparent distress. slender, well groomed, Behavior is calm, tw2 cooperative, appropriate for age. Pain: Denies pain. Neuro: Level of Consciousness is awake, alert, obeys commands, Oriented to person, place, time, situation. Cardiovascular: Patient's skin is warm and dry. Respiratory: Airway is patent Respiratory effort is even, unlabored, Respiratory pattern is regular, symmetrical. GI: No signs and/or symptoms were reported involving the gastrointestinal system. : No signs and/or symptoms were reported regarding the genitourinary system. EENT: No signs and/or symptoms were reported regarding the EENT system. Derm: redness noted to RIGHT upper arm. Musculoskeletal: Circulation, motion, and sensation intact. Range of motion: intact in all extremities. 10:36 Reassessment: Patient appears in no apparent distress at this time. No changes from tw2 previously documented assessment. Patient and/or family updated on plan of care and expected duration. Pain level reassessed. Patient is alert, oriented x 3, equal unlabored respirations, skin warm/dry/pink. Vital Signs: 09:58 BP 137 / 81; Pulse 74; Resp 17; Temp 98.4; Pulse Ox 94% on R/A; Pain 10/10; ll1 10:36 BP 120 / 67; Pulse 70; Resp 17; Pulse Ox 97% on R/A; tw2 ED Course: 09:40 Patient arrived in ED. mr 09:40 Prashant Villa DO is Private Physician. mr 09:55 Bed in low position. Call light in reach. Adult w/ patient. Pulse ox on. NIBP on. tw2 09:56 Oscar Mendez MD is Attending Physician. rn 10:00 Triage completed. ll1 10:00 Arm band placed on Patient placed in an exam room, on a stretcher. ll1 10:14 Cinthia Monte, TESSA is Primary Nurse. tw2 10:30 Awaiting: medication observation after inj prior to discharge. tw2 10:30 No provider procedures requiring assistance completed. Patient did not have IV access tw2 during this emergency room visit. Administered Medications: 10:20 Drug: SOLU-Medrol 125 mg Route: IM; Site: right vastus lateralis; tw2 10:38 Follow up: Response: No adverse reaction tw2 Outcome: 10:18 Discharge ordered by . rn 10:36 Discharged to home ambulatory, with significant other. tw2 10:36 Condition: stable 10:36 Discharge instructions given to patient, significant other, Instructed on discharge instructions, follow up and referral plans. medication usage, Demonstrated understanding of instructions, follow-up care, medications, Prescriptions given X 2. 10:38 Patient left the ED. tw2 Signatures: Geetha Verduzco mr Vanessa, MD MD tessa Moore Tara, RN RN tw2 Pallavi Haskins RN RN 1
[2020-06-22] MEDS ORDERED: METHYLPREDNISOLONE 125 MG INJ ONE (10:28)
[2020-06-22 23:01] VITALS: TEMP 98.4
[2020-06-22 23:03] VITALS: BP 120/67; O2SAT 97
== END 2020-06-22 10:38 | disposition home or self-care (01) ==
LOC: ER 09:37
DX: L03.113 Cellulitis of right upper limb (principal); I10 Essential (primary) hypertension; Z88.1 Allergy status to other antibiotic agents; Z88.5 Allergy status to narcotic agent
CPT/HCPCS: 96372; 99283; J2930

== ENCOUNTER 2020-10-31 18:38 | Emergency (ER) | payer BC ==
--- OUTSIDE RECORDS SUMMARY | 2020-10-31 18:41 | XMS REPORT | Continuity of Care Document ---
:1960 Author Organization [facility] t Address [address] [place] [address] Care Team Providers Name Role Phone Bernarda Steel Attending Clinician Martha Kelly Attending Clinician Bernarda Steel Admitting Clinician Martha Kelly Admitting Clinician Problems Condition Condition Condition Status Onset Resolution Last Treating Co mments Source Name Details Category Date Date Treatment Clinician Date HIGH BLOOD Diagnosis Active 2018-04-15 Memoria PRESSURE 04-15 11:24:00 l HIGH 00:00: [place] BLOOD 00 PRESS[facility] Diagnosis Active 2018-04-16 Mem oria 04-15 17:32:00 l ACS 00:00: [place] 00 Active 04/15/2018 [facility] [place] CARDAIC Diagnosis Active 2017-12-14 Me moria 12-14 09:29:00 l CARDAIC 00:00: [place] 00 Active 12/14/2017 [facility] CHEST PAIN Diagnosis Active 2017-12-18 Memoria 12-14 15:17:00 l CHEST 00:00: [place] PAIN 00 Active 12/14/2017 [facility] CHRISTY Diagnosis Active 2017-12-14 Memoria BILLING 12-14 16:36:00 l 00:00: [place] CHRISTY 00 BILLING Active 12/14/2017 [facility] Essential Problem 2018-11-03 Me moria (primary) 13:22:34 l hypertensi Gallo n on Essential (primary) hypertensi on 11/03/2018 [facility] Hyperosmol Problem 2018-11-03 M emoria ality and 13:22:34 l hypernatre Gallo n susi Hyperosmol ality and hypernatre susi 11/03/2018 [facility] Other Problem 2018-11-03 Memor ia chest pain 13:22:34 l Other Johnson chest pain 11/03/2018 [facility] Headache Problem 2018-11-03 Mem oria 13:22:34 l Headache Gallo n 11/03/2018 [facility] Nausea Problem 2018-11-03 Memor ia 13:22:34 l Nausea [place] 11/03/2018 [facility] Pain in Problem 2018-11-03 Abdiel princess left arm 13:22:34 l Pain in [place] left arm 11/03/2018 [facility] Diverticul Problem 2018-11-03 M emoria osis of 13:22:34 l small Johnson intestine Diverticul without osis of perforatio small n or intestine abscess without without perforatio bleeding n or abscess without bleeding 11/03/2018 [facility] Nicotine Problem 2018-11-03 Mem oria dependence 13:22:34 l , Nicotine Gallo n cigarettes dependence , , uncomplica cigarettes yariel , uncomplica yariel 11/03/2018 [facility] Family Problem 2018-11-03 Memor ia history of 13:22:34 l ischemic Family Gallo n heart history of disease ischemic and other heart diseases disease of the 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 11/03/2018 [facility] Hypertensi Problem Resolve 2018-11-03 Memoria ve d 13:22:34 l disorder, [place] systemic Hypertensi arterial ve (disorder) disorder, systemic arterial (disorder) Resolved Problem 11/03/2018 [facility] Smoker Problem Resolve 2018-11-03 Abdiel princess (finding) d 13:22:34 l Smoker [place] (finding) Resolved Problem 11/03/2018 [facility] CHEST Diagnosis Active 2017-12-18 Mem oria PAIN, 15:17:00 l UNSPECIFIE CHEST Kamini nn D PAIN, UNSPECIFIE D Active [facility] ACUTE Diagnosis Active 2018-04-16 Mem oria ISCHEMIC 17:32:00 l HEART ACUTE Johnson DISEASE, ISCHEMIC UNSPECIFIE HEART DISEASE, UNSPECIFIE Active [facility] Johnson Epigastric Problem 2018-11-03 M emoria pain 13:22:34 l Johnson Epigastric pain 9 [facility] History of Past Illness Condition Condition Condition Status Onset Resolution Last Treating Co mments Source Name Details Category Date Date Treatment Clinician Date Jaw pain Problem 2017-2018-11-03 2018-11-03 Memoria 9-19 13:22:34 13:22:34 l Jaw pain 04:15: Gallo n 38 04/21/2018 11/03/2018 [facility] Allergies, Adverse Reactions, Alerts Allergy Allergy Status Severity Reaction(s) Onset Inactive Treating Comm ents Source Name Type Date Date Clinician Soma Adverse Active Itch [facility] Morphine Adverse Active Itch [facility] Sulfate [facility] Bactrim Adverse Active Itch [facility] Soma Soma Active [facility] [place] Bactrim Bactrim Active [facility] [place] Social History Social Habit Start Date Stop Date Quantity Comments Source Social History 2013-08-19 2013-08-19 [facility] shelby 11:22:15 11:22:15 Medications Ordered Filled Start Stop Current Ordering Indication Dosage Frequency Signature Comments Components Source Medication Medication Date Date Medication? Clinician (SIG) Name Name Amlodipine Amlodipine 2019-0 Yes Prashant [address] [facility] Besylate Besylate 6-25 [facility] 00[facility]: evening [facility] Citalopram Citalopram 2019-0 Yes Prashant [address] [facility] Hydrobromid Hydrobromid 6-23 [facility] Restoril Restoril Yes Prashant [address] [facility] 6-23 [facility] - 00:[facility]: as needed [facility] Vitamin Vitamin Yes Prashant [address] D-1000 Max D-1000 Max 5-07 [facility] 00:00: [facility] 00 [facility] Aspirin 325 No Notes: (Do Memoria MG Enteric 04-16 Not Crush) l Coated 14:00: Do not [place] Tablet 00 crush or chew. Saline No Notes: Memoria Flush 0.9% 04-16 (Same as: l 02:00: BD [place] Posiflush) NIFEdipine Yes 90 mg = 1 Me moria 90 mg oral 04-15 tab, PO, l tablet, 20:53: Daily, 0 Gallo n extended 00 Refill(s) release Protonix No Notes: For Mem oria 04-15 IV push l 20:05: reconstitu Johnson 00 te with 10 ml 0.9% sodium chloride and push over 2 minutes. (Same as: Protonix) Nicotine No Notes: Memoria - (Same as: l 19:34: Habitrol) [place] 00 "Remove old patch before applicatio n [...] not crush Hydralazine No Notes: Abdiel princess - (Same as: l 18:45: Apresoline ) Push over 5 minutes Saline No Notes: Memoria Flush 0.9% -13 (Same as: l 18:45: BD [place] Posiflush) Ondansetron No Notes: Abdiel princess - (Same as: l 18:45: Zofran) [place] Acetaminoph No Notes: Do M emoria en 04-15 not exceed l 18:45: 4 gm/day. Johnson (Same as: Tylenol) Acetaminoph No Notes: Abdiel princess en 325 MG / 04-15 (Same as: l Hydrocodone 18:45: [place] Kamini nn Bitartrate 00 325/5) Do 5 MG Oral not exceed Tablet 4gm/day of acetaminop hen. Morphine No Notes: Memoria 04-15 (Same l 18:45: as:MORPhin e Sulfate) metoprolol No Notes: Memor ia tartrate 04-15 (Same as: l 18:45: Lopressor) Johnson 00 Nitroglycer No Notes: Abdiel princess in [...] 04-15 Route: l MG/MG 17:32: TOP, Drug Topical Form: Ointment OINT, Dosing Weight 82, kg, ONCE, Start date: 04/15/18 12:32:00 CDT, Stop date: 04/15/18 12:32:00 CDT Ondansetron No 4 mg, Memor ia 04-15 Route: l 17:31: IVP, Drug form: INJ, ONCE, Dosing Weight 82, kg, Priority: STAT, Start date: 04/15/18 12:31:00 CDT, Stop date: 04/15/18 12:31:00 CDT Morphine No 4 mg, Memoria 04-15 Route: l 17:31: IVP, ONCE, Johnson 00 Dosing Weight 82, kg, Priority: STAT, Start date: 04/15/18 12:31:00 CDT, Stop date: 04/15/18 12:31:00 CDT Aspirin 2017-0 No Notes: Memoria 9-13 Take with l 15:28: food. Saline 0 No Notes: Memoria Flush 0.9% 04-15 (Same [...] CDT Nitroglycer No Notes: Abdiel princess in 5-14 (Same l 12:30: as:Tridil) Final conc = 0.4 mg/ml. Premix bottle. Nitroglycer 0 No 50 mg, 250 Memoria in 5-14 mL, Rate: l 12:29: Titrate, Start Dose: 10 microgram/ min, Titration: 10 microgram/ min every 5 minutes, Goal(s): Chest pain and SBP between 100 - 150 mmHg, Max Dose: 200 mcg/min, Route: IV, Dosing Weight 81.818 kg, Total Volume: 250, Start date: 12/01... Morphine 2017-0 No 4 mg, Memoria 14 Route: l 12:07: IVP, ONCE, [place] 00 kg, Priority: STAT, Start date: 12/14/17 7:07:00 CDT, Stop date: 12/14/17 7:07:00 CDT Ondansetron 2017-0 No 4 mg, Memor ia 5-14 Route: l 12:07: IVP, ONCE, [place] 00 kg, Priority: STAT, Start date: 12/14/17 7:07:00 CDT, Stop date: 12/14/17 7:07:00 CDT Saline 2017-0 No Notes: Memoria Flush 0.9% 5-14 Same as: l 12:07: BD [place] 00 Posiflush Sterile Symbicort Symbicort Yes Prashant [address] [facility] Promethazin Promethazin Yes Prashant [address] [facility] e HCl e HCl [facility] needed [facility] Losartan Losartan Yes Prashant [address] Potassium Potassium [facility] Vital Signs Vital Name Observation Time Observation Value Comments Source Heart Rate 2018-04-16 16:43:00 [facility] [place] Respitory Rate 2018-04-16 16:43:00 Memori al [place] Temperature Oral (F) 2018-04-16 16:43:00 98.1 F [facility] [place] Systolic (mm Hg) 2018-04-16 16:43:00 Abdiel rial [place] Diastolic (mm Hg) 2018-04-16 16:43:00 Mem orial [place] Heart Rate 2018-04-16 12:33:00 [facility] [place] Temperature Oral (F) 2018-04-16 12:33:00 98.1 F [facility] [place] Systolic (mm Hg) 2018-04-16 12:33:00 Abdiel rial [place] Diastolic (mm Hg) 2018-04-16 12:33:00 Mem orial [place] Respitory Rate 2018-04-16 12:33:00 Memori al [place] Respitory Rate 2018-04-16 08:19:00 Memori al [place] Heart Rate 2018-04-16 08:19:00 [facility] [place] Temperature Oral (F) 2018-04-16 08:19:00 97.9 F [facility] [place] Systolic (mm Hg) 2018-04-16 08:19:00 Abdeil rial Johnson Diastolic (mm Hg) 2018-04-16 08:19:00 Mem orial [place] Height 2018-04-15 14:08:00 175.26 cm [facility] [place] BMI Calculated 2018-04-15 14:08:00 [facility]ori al [place] Weight 2018-04-15 14:08:00 [facility] [place] Systolic (mm Hg) 2017-12-14 20:44:00 Abdiel rial [place] Diastolic (mm Hg) 2017-12-14 20:44:00 Mem orial [place] Temperature Oral (F) 2017-12-14 20:44:00 97.7 F [facility] [place] Respitory Rate 2017-12-14 20:44:00 Memori al [place] Respitory Rate 2017-12-14 15:33:00 Memori al [place] Systolic (mm Hg) 2017-12-14 15:33:00 Abdiel rial [place] Diastolic (mm Hg) 2017-12-14 15:33:00 Mem orial [place] BMI Calculated 2017-12-14 15:23:00 [facility]ori al [place] Weight 2017-12-14 15:23:00 [facility] [place] Height 2017-12-14 15:23:00 175.26 cm [facility] [place] Respitory Rate 2017-12-14 15:03:00 Memori al [place] Systolic (mm Hg) 2017-12-14 15:03:00 Abdiel rial [place] Diastolic (mm Hg) 2017-12-14 15:03:00 Mem orial [place] Temperature Oral (F) 2017-12-14 14:20:00 97.6 F [facility] [place] Temperature Oral (F) 2017-12-14 12:18:00 97.8 F [facility] [place] Height 2017-12-14 12:02:00 180.34 cm [facility] [place] BMI Calculated 2017-12-14 12:02:00 Memori al [place] Weight 2017-12-14 12:02:00 [facility] [place] Heart Rate 2017-12-14 12:02:00 [facility] [place] Procedures Procedure Date / Time Performed Performing Clinician [facility] Appendectomy [facility] section [facility] Gallo n Cholecystectomy [facility] [place] Hysterectomy [facility] Encounters Start End Encounter Admission Attending Care Care Encounter Source Date/Time Date/Time Type Type Clinicians Facility Department ID 2020-09-21 2020-09-21 Outpatient [facility] [id number] [facility] 2020-09-20 2020-09-20 Outpatient [facility] [id number] [facility] 2020-09-11 2020-09-11 Out[facility] [id number] [facility] 2020-09-05 2020-09-05 Outpatient [facility] [id number] [facility] 2020-09-04 2020-09-04 Outpatient [facility] [id number] [facility] 2020-08-31 2020-08-31 Outpatient [facility] [id number] [facility] 2020-08-29 2020-08-29 Outpatient [facility] [id number] [facility] 2020-08-02 2020-08-02 Outpatient [facility] [id number] [facility] 2020-06-21 2020-06-21 Outpatient [facility] [id number] [facility] 2020-06-20 2020-06-20 Outpatient [facility] [id number] [facility] 2020-02-23 2020-02-23 [facility] [id number] [facility] 10:30:00 10:30:00 t [facility] - [facility] l Medicine Outpati ent Clinics 2020-02-02 2020-02-02 [facility] [id number] 16:15:00 16:15:00 t O[facility]ogica s - Drive [facility] Medicine l Medicine Outpati ent Clinics 2020-01-26 2020-01-26 [facility] [id number] 09:02:00 09:02:00 t Kramer Panizon s - Novogenie [facility] Medicine Medicine Outpati ent Clinics 2020-01-25 2020-01-25 [facility] [id number] 09:33:00 09:33:00 t Kramer Panizon s - Novogenie [facility] l Medicine Outpati ent Clinics 2020-01-24 2020-01-24 [facility] [id number] 15:30:00 15:30:00 t [employer]og[employer] [facility] Medicine l Medicine Outpati ent Clinics 2020-01-23 2020-01-23 [facility] [id number] 08:26:00 08:26:00 t [place] [employer] [facility] l Medicine Outpati ent Clinics 2020-01-23 2020-01-23 [facility] [id number] 00[facility]14:00 00:14:[address] [facility] [employer] [facility] Medicine Outpati ent Clinics 2020-01-06 2020-01-06 [facility] [id number] 08:06:00 08:06:00 t [employer] [facility] l Medicine Outpati ent Clinics 2020-01-05 2020-01-05 [facility] [id number] 10:30:00 10:30:00 t [employer] [facility] l Medicine Outpati ent Clinics 2020-01-01 2020-01-01 [facility] [id number] 19:47:00 19:47:00 t [employer] [facility] Medicine l Medicine Outpati ent Clinics 2019-12-13 2019-12-13 [facility] [id number] 13:27:00 13:27:[address] [facility] [employer] [facility] l Medicine Outpati ent Clinics 2019-12-08 2019-12-08 [facility] [id number] 08:07:00 08:07:00 t [employer] [facility] Medicine Outpati ent Clinics 2019-12-07 2019-12-07 [facility] [id number] 13:00:00 13:00:[address] [employer] - Drive [facility] Medicine Outpati ent Clinics 2019-11-24 2019-11-24 [facility] [id number] 09:15:00 09:15:[address] [employer] [facility] Drive [facility] Medicine Outpati ent Clinics 2019-11-04 2019-11-04 [facility] [id number] 09:00:00 09:00:00 t Kramer Kramer Novogenie [employer] - Drive [facility] Medicine Outpati ent Clinics 2019-10-13 2019-10-13 [facility] [id number] 14:30:00 14:30:00 t Kramer Panizon s - Drive [facility] Medicine Outpati ent Clinics 2018-04-15 2018-04-16 Outpatient Ajibarios, [facility] [id number] 09:01:00 13:30:00 Miguel 00 Akinwale 2017-12-14 2017-12-14 Outpatient Kelly, [facility] [id number] 07:00:00 17:10:00 Cerena K 67 Results Test Description Test Time Test Comments Results Result Comments Source LIPIDS 2018-04-16 180 [facility] Kamini nn 05:17:00 LIPIDS 2018-04-16 220 [facility] Kamini nn 05:17:00 LIPIDS 2018-04-16 05:17:00 Test Item Value Reference Range Interpretation Comme nts CHD Risk (test code = CHD Risk) 3.67 1 3.90-5.80 [facility]annSPECIAL [id number] 05:17:005.5[facility] HermannCARDIAC TNSPKKX8806-88-76 05:17:00<0.02[facility] HermannCHEM [id number] 05:17:00 53[facility] HermannCHEM [id number] 05:17:71261Pwjjyvup HermannCHEM PANEL 2018-04-16 05:17:0031[facility] HermannCHEM TQRFN1338-29-24 05:17:004.5[facility] HermannCHEM YGBKT9676-60-80 05:17:85257Amvvcnce HermannCHEM JMMIE2228-83-08 05:17:0015[facility] HermannCHEM RIBYE5919-43-94 05:17:001.15[facility] HermannCHEM JENMD9745-94-68 05:17:008.6[facility] HermannCHEM MGSLH9397-31-47 05:17:0010.5 [facility] HermannCHEM LGILG6560-49-25 05:17:12416Viqrwxwm HermannHEMATOLOGY 2018-04-16 05:17:0038.9[facility] PkbwgpyOPNJWXUSRE3558-61-59 05:17:0013.5[facility] MssuinvXDYHRIOXKG4790-81-59 05:17:009.0[facility] LxdyymxFRCWREJUDP9428-54-28 05:17:32921Rhevosef XraopwnUJGZEXMLTY1683-16-53 05:17:0034.7[facility] [place] HTINPNUOWO2924-82-82 05:17:0096.7[facility] YuustfzXYPLBVXAQF7343-13-85 05:17:00 12.9[facility] WugwhhrIUMNNXEPOZ2267-77-13 05:17:00 Test Item Value Reference Range Interpretation Comments MCH (test code = MCH) 33.6 pg 27.0-31.0 [facility] UgzasjiPNGAMRRIBS7833-74-82 05:17:003.9[facility] HermannHEMATOLOGY 2018-04-16 05:17:004.02[facility] LdynbfpOAJYJN4279-32-04 05:17:00 Test Item Value Reference Range Interpretation Comments VLDL (test code = VLDL) 44 1 [facility] RlhyjnrWQUUNJ0925-60-99 05:17:0087[facility] EdrourlSQNRSF6290-42-01 05:17:0049[facility] HermannCARDIAC HSLBGYG6975-51-14 23:18:00<0.02[facility] HermannCHEM HRKCO5211-48-04 18:29:000.7[facility] HermannCHEM MEGVI7130-25-39 18:29:0087[facility] HermannCARDIAC URBLCAE9164-69-48 17:49:00<0.02[facility] HermannCHEM [id number] 15:16:007.1[facility] HermannCHEM KSMNN3930-15-32 15:16:009.6[facility] HermannCHEM BCHBJ5428-90-47 15:16:0028[facility] HermannCHEM IFBVO1921-49-51 15:16:004.0[facility] HermannCHEM QNYRC7910-11-92 15:16:79608 [facility]annCHEM IQEWP0937-87-89 15:16:20898Zzswahvp HermannCHEM PANEL 2018-04-15 15:16:000.79[facility] HermannCHEM EYFYL9577-79-50 15:16:0013[facility] HermannCHEM ISMGV3720-45-26 15:16:0089[facility] HermannCHEM KBQDT3972-16-42 15:16:003.8[facility] HermannCHEM YTFNF1965-06-20 15:16:002.3[facility] HermannCHEM UVCZK6008-58-78 15:16:003.7[facility] DerewjiJNGLCPDRZAVKK8971-68-01 15:16:00 Negative *NA*(04/15/18 10:16 AM)[facility] KzxxbsmPOGNTGMXZB6068-71-27 15:16:004.9 [facility] RkqoibdRHOYPTNOBN0479-17-72 15:16:0015.2[facility] HermannHEMATOLOGY 2018-04-15 15:16:004.61[facility] YffmegnEKDBZMDTJS3233-65-79 15:16:0033.6[facility] NrjokcuPBVRHNNHEB6626-18-00 15:16:0045.3[facility] DovkwdvEKHUUQAGNU4997-76-42 15:16:0098.2[facility] NpqpjxzILENSNWLWA0881-36-94 15:16:00 Test Item Value Reference Range Interpretation Comments MCH (test code = MCH) 33.0 pg 27.0-31.0 [facility] ErsfmhmCIGCGJLVBY0441-43-92 15:16:008.8[facility] HermannHEMATOLOGY 2018-04-15 15:16:0012.6[facility] SoiezpwGNVPTTWWIH1153-78-66 15:16:84192Pqkhyhmj IymzxvvTSETBACUBR1175-76-45 15:16:0039.1[facility] DozfvwcTKIZQFOCAT0114-14-81 15:16:002.5[facility] SgqzmbxHPQXFDKYJN9360-60-85 15:16:0050.6[facility] SIRUZCJFJA2742-85-34 15:16:001.9[facility] DgazdeeKFGIDYHJNE2453-81-21 15:16:002.5 [facility] TtxdztdEUMEQTLZMI5473-72-80 15:16:007.1[facility] HermannHEMATOLOGY 2018-04-15 15:16:000.7[facility] MigxcyfDMRMVHOQGC5939-01-51 15:16:000.1[facility] TaessqlPEECDJSEPT3857-53-56 15:16:000.3[facility] HermannCARDIAC KSWITSW7075-80-76 15:16:26728Dncesxee HermannCARDIAC ROBNZOV8035-05-02 15:16:0064[facility] [place] CHEM OHJOC6543-38-76 15:16:00 Test Item Value Reference Range Interpretation Comments A/G Ratio (test code = A/G Ratio) 1.2 1 0.7-1.6 [facility]annCHEM [id number] 15:16:003.3[facility] HermannCHEM PANEL 2018-04-15 15:16:00 Test Item Value Reference Range Interpretation Comments B/C Ratio (test code = B/C Ratio) 16 1 6-25 [facility] HermannCHEM [id number] 15:16:0012.0[facility] HermannCHEM PANEL 2018-04-15 15:16:0083[facility] HermannCHEM ULBUC4625-29-96 15:16:000.5[facility] HermannCHEM WVNBX7816-54-41 15:16:0082[facility] HermannCHEM SALNC4214-41-65 15:16:0028[facility] HermannCHEM NVCZT2845-05-20 15:16:0013[facility] HermannCARDIAC BZBCADY3772-60-54 18:17:00<0.02[facility] HermannCARDIAC FJFBYLS2843-94-06 12:22:00 Test Item Value Reference Range Interpretation Comments CK MB Index (test 2.7 1 See_Comment [Automate d message] The code = CK MB Index) system [facility] generated this result transmit yariel reference range : <=2.5. The reference range was not used to interpr et this result as anil l/abnormal. [facility] HermannCARDIAC CQBVVIX4519-50-39 12:22:00<0.02[facility] CARDIAC PJVHNSB2611-36-90 12:22:96209Vfdtlzjj HermannCARDIAC WZWNRRC1287-25-78 12:22:003.2[facility] HermannCHEM FJAXL5761-32-33 12:22:0087[facility] HermannCHEM AAJMK9877-07-85 12:22:003.1[facility] HermannCHEM QXQWW1214-79-72 12:22:0078 [facility] HermannCHEM GRRDF1493-97-62 12:22:0012[facility] HermannCHEM PANEL 2017-12-14 12:22:0024[facility] HermannCHEM THWCO4283-40-52 12:22:003.2[facility] HermannCHEM DYENC0597-89-94 12:22:006.3[facility] HermannCHEM IVOLJ0588-04-13 12:22:0023[facility] HermannCHEM IYKAT0869-24-30 12:22:008.9[facility] HermannCHEM ZQVHS0598-69-09 12:22:00 Test Item Value Reference Range Interpretation Comments A/G Ratio (test code = A/G Ratio) 1.0 1 0.7-1.6 [facility] HermannCHEM RICPB9717-03-79 12:22:0014.1[facility] HermannCHEM PANEL 2017-12-14 12:22:00 Test Item Value Reference Range Interpretation Comments B/C Ratio (test code = B/C Ratio) 22 1 6-25 [facility] HermannCHEM [id number] 12:22:000.2[facility] HermannCHEM PANEL 2017-12-14 12:22:07282Avwwvpwk HermannCHEM GFRGO6481-38-55 12:22:09486Eodwouzr HermannCHEM ZWQUQ5347-05-06 12:22:004.1[facility] HermannCHEM UYMYF0939-53-11 12:22:000.76[facility] HermannCHEM OLNWW7490-50-25 12:22:0017[facility] HermannCHEM ISIVT5756-91-48 12:22:23267Vecuttot IjldovwWLRIAPLYEB4021-69-49 12:22:000.4 [facility] YuhwaqxZKTNNPVVIG9424-27-61 12:22:000.1[facility] HermannHEMATOLOGY 2017-12-14 12:22:0048.7[facility] AwxackdMXEZFZHHYY2236-04-05 12:22:0039.8[facility] EiyeixaAXGEENRHLJ0497-56-61 12:22:008.3[facility] IyfmfcwZEVYFJLXOZ7575-01-40 12:22:002.7[facility] CfnaoukEYZAGNBUMW4194-65-13 12:22:002.0[facility] [place] WAMHPUOJLV5129-66-76 12:22:000.5[facility] WfwkcvoULODYJAPBT5839-61-87 12:22:002.5 [facility] PhofjwwJZYKAMWGWN3487-58-83 12:22:0033.5[facility] HermannHEMATOLOGY 2017-12-14 12:22:009.2[facility] NscbsezJQLODEVAXV0851-41-00 12:22:23629Hojrwjqe KzqhavhGKZFTMQFPS5582-29-17 12:22:0013.0[facility] XpalomyVDIZYMNWFT9195-36-61 12:22:00 Test Item Value Reference Range Interpretation Comments MCH (test code = MCH) 32.8 pg 27.0-31.0 [facility] CyxbzsfNBTWGYNPQZ9955-78-00 12:22:0043.1[facility] HermannHEMATOLOGY 2017-12-14 12:22:0014.4[facility] WwehapoSZVOMQBBNW1112-59-83 12:22:0097.9[facility] BjstlojJFYHRYNYUK8753-21-58 12:22:004.40[facility] RnzkszfZEHAEZNZWL8886-69-29 12:22:005.1[facility]
--- NOTE | 2020-10-31 20:34 | RAD REPORT ---
EXAM DESCRIPTION: US - Extrem Venous W Compress Eric - 10/31/2020 8:05 pm CLINICAL HISTORY: Pain;Swelling, both legs COMPARISON: None. TECHNIQUE: Real-time sonographic evaluation of the bilateral lower extremity common femoral, superfi cial femoral, popliteal and posterior tibial veins was performed. FINDINGS: Normal compressibility, flow augmentation, phasic flow and spontaneous flow are identified in the left and right lower extremity common femoral, superficial femoral, popliteal and posterior t ibial veins. No intraluminal filling defects seen. IMPRESSION: No DVT in either lower extremity.
--- NOTE | 2020-10-31 20:49 | RAD REPORT ---
EXAM DESCRIPTION: US - Lower Extremity Arterial Bilat - 10/31/2020 8:05 pm CLINICAL HISTORY: Pain;Swelling COMPARISON: None. TECHNIQUE: Doppler evaluation of the bilateral lower extremity arterial tree performed. Velocity ignacia ues and waveforms were obtained. Were obtained along the length of each lower extremity. Visual inspe ction of the lower extremity arterial tree performed. FINDINGS: Bilateral lower extremity waveform pattern is triphasic in the common femoral, superficial femoral and popliteal arteries. There is a bilateral monophasic waveform pattern in the posterior ti bial and dorsalis pedis arteries. No occlusion or focal flow restricting lesion. No suspicious veloci ty value or significant waveform pattern abnormality. IMPRESSION: No occlusion or focal flow restricting lesion. Bilateral triphasic waveform patterns from groin to just proximal to the ankle. Monophasic ankle wave form pattern could indicate mild disease.
[2020-10-31 20:52] LABS: Absolute Lymphocytes (CBC) 1.6 K/uL (0.7-4.9); Basophils % 0.8 % (0-1.3); Hematocrit 37.2 % (36.0-45.0); Lymphocytes % 32.3 % (15.3-44.8); MPV 8.2 fL (7.6-11.3)
[2020-10-31 20:55] LABS: Protime INR 0.93
[2020-10-31 21:05] LABS: Albumin 3.5 g/dL (3.4-5.0); Bilirubin Direct 0.1 mg/dL (0-0.2); Bilirubin Total 0.4 mg/dL (0.2-1.0); Potassium 3.6 mmol/L (3.5-5.1); Protein, Total 6.5 g/dL (6.4-8.2)
--- NOTE | 2020-10-31 21:20 | ER ---
Nurse's Notes [facility] Name: Rhona Ladd Age: 60 yrs Sex: Female : 1960 Arrival Date: 10/31/2020 Time: 18:39 Bed 8 Private MD: Prashant Villa Diagnosis: Edema, unspecified;Pain in left lower leg Presentation: 10/31 18:43 Chief complaint: Patient states: L leg pain and swelling since yesterday. Pain on the L ca1 calf and goes around, feels burning at the moment. Pain goes up to the L thigh with ambulation. Familial HX of blood clots. Coronavirus screen: Client denies travel out of the [place] in the last 14 days. At this time, the client does not indicate any symptoms associated with coronavirus-19. Ebola Screen: Patient negative for fever greater than or equal to 101.5 degrees Fahrenheit, and additional compatible Ebola Virus Disease symptoms Patient denies exposure to infectious person. Patient denies travel to an Ebola-affected area in the 21 days before illness onset. No symptoms or risks identified at this time. Initial Sepsis Screen: Does the patient meet any 2 criteria? No. Patient's initial sepsis screen is negative. Does the patient have a suspected source of infection? No. Patient's initial sepsis screen is negative. Risk Assessment: Do you want to hurt yourself or someone else? Patient reports no desire to harm self or others. Onset of symptoms was October 31, 2020. 18:43 Method Of Arrival: Ambulatory ca1 18:43 Acuity: CHON 3 ca1 Historical: - Allergies: 18:47 Bactrim; ca1 18:47 Morphine; ca1 18:47 Soma; ca1 - PMHx: 18:47 Asthma; Hypertension; ca1 - PSHx: 18:47 Hysterectomy; Cholecystectomy; Appendectomy; ca1 - Immunization history:: Pneumococcal vaccine is up to date, Flu vaccine is up to date. - Social history:: Smoking status: Patient/guardian denies using tobacco, the patient reports quitting approximately 7 years ago. - Family history:: not pertinent. - Hospitalizations: : No recent hospitalization is reported. Screenin:28 Abuse screen: Denies threats or abuse. Nutritional screening: No deficits noted. ea Tuberculosis screening: No symptoms or risk factors identified. Fall Risk None identified. Assessment: 19:32 General: Appears in no apparent distress. Behavior is calm, cooperative, appropriate ea for age. Pain: Complains of pain in left leg. Neuro: Level of Consciousness is awake, alert, obeys commands, Oriented to person, place, time. Cardiovascular: Patient's skin is warm and dry. Respiratory: Airway is patent Respiratory effort is even, unlabored, Respiratory pattern is regular, symmetrical. Derm: Skin is pink, warm \T\ dry. 21:52 Reassessment: Patient and/or family updated on plan of care and expected duration. Pain ea level reassessed. Patient is alert, oriented x 3, equal unlabored respirations, skin warm/dry/pink. Discharge instruction given to patient verbalized the understanding of instruction. Pt left ED ambulatory tolerating well. Vital Signs: 18:43 BP 138 / 91; Pulse 82; Resp 17 S; Temp 98.1(TE); Pulse Ox 99% on R/A; Weight 95.25 kg ca1 (R); Height 5 ft. 9 in. (175.26 cm) (R); Pain 8/10; 20:25 BP 142 / 91; Pulse 80; Resp 18; Pulse Ox 98% on R/A; ea 21:45 BP 157 / 90; Pulse 78; Resp 18; Pulse Ox 98% ; ea 18:43 Body Mass Index 31.01 (95.25 kg, 175.26 cm) ca1 ED Course: 18:39 Patient arrived in ED. am2 18:39 Prashant Villa DO is Private Physician. am2 18:46 Triage completed. ca1 18:47 Arm band placed on right wrist. ca1 19:13 Oscar Mendez MD is Attending Physician. rn 19:28 Nuzhat Rojas RN is Primary Nurse. ea 19:28 Patient has correct armband on for positive identification. Bed in low position. Call ea light in reach. 20:05 Lower Extremity Arterial Bilat US In Process Unspecified. EDMS 20:05 Extrem Venous W Compress Eric In Process Unspecified. EDMS 21:53 No provider procedures requiring assistance completed. IV discontinued, intact, ea bleeding controlled, No redness/swelling at site. Pressure dressing applied. Administered Medications: No medications were administered Outcome: 21:20 Discharge ordered by . rn 21:53 Discharged to home ambulatory. ea 21:53 Condition: stable 21:53 Discharge instructions given to patient, Instructed on discharge instructions, follow up and referral plans. Demonstrated understanding of instructions, follow-up care. 21:54 Patient left the ED. ea Signatures: Dispatcher [employer] Oscar Penn MD MD rn Moreno, Amanda am2 Nuzhat Rojas RN RN Halie Campa RN RN ca1
--- NOTE | 2020-10-31 21:21 | EDPHYS ---
Physician Documentation [facility] Name: Rhona Ladd Age: 60 yrs Sex: Female : 1960 Arrival Date: 10/31/2020 Time: 18:39 Bed 8 Private MD: [facility] ED Physician Oscar Mendez HPI: 10/31 19:54 This 60 yrs old Female presents to ER via Ambulatory with complaints of Leg rn Swelling, Leg Pain. 19:54 The patient presents with pain, that is acute, swelling. The complaints affect the rn lateral aspect of left foot, left calf and dorsum of left foot. Onset: The symptoms/episode began/occurred yesterday. Modifying factors: The symptoms are alleviated by nothing. the symptoms are aggravated by movement, weight bearing. Severity of symptoms: At their worst the symptoms were moderate, in the emergency department the symptoms are unchanged. The patient has not experienced similar symptoms in the past. The patient has not recently seen a physician. Reports LLE pain and swelling for 1 day, mother and grandmother with hx of DVT, no trauma, no sob, no chest pain. . Historical: - Allergies: 18:47 Bactrim; ca1 18:47 Morphine; ca1 18:47 Soma; ca1 - PMHx: 18:47 Asthma; Hypertension; ca1 - PSHx: 18:47 Hysterectomy; Cholecystectomy; Appendectomy; ca1 - Immunization history:: Pneumococcal vaccine is up to date, Flu vaccine is up to date. - Social history:: Smoking status: Patient/guardian denies using tobacco, the patient reports quitting approximately 7 years ago. - Family history:: not pertinent. - Hospitalizations: : No recent hospitalization is reported. ROS: 19:54 Constitutional: Negative for fever, chills, and weight loss, Eyes: Negative for injury, rn pain, redness, and discharge, Neck: Negative for injury, pain, and swelling, Cardiovascular: + swelling bilaterally Respiratory: Negative for shortness of breath, cough, wheezing, and pleuritic chest pain, Abdomen/GI: Negative for abdominal pain, nausea, vomiting, diarrhea, and constipation, Back: Negative for injury and pain, MS/Extremity: + left leg pain and swelling Skin: Negative for injury, rash, and discoloration, Neuro: Negative for headache, weakness, numbness, tingling, and seizure. Exam: 19:54 Constitutional: This is a well developed, well nourished patient who is awake, alert, rn and in no acute distress. Cardiovascular: Regular rate and rhythm. No pulse deficits. Respiratory: No increased work of breathing, no retractions or nasal flaring. MS/ Extremity: Pulses equal, no cyanosis. Neurovascular intact. Full, normal range of motion. LLE slightly increased circumference compared to RLE. 1+ pitting edema bilateral lower ext Vital Signs: 18:43 BP 138 / 91; Pulse 82; Resp 17 S; Temp 98.1(TE); Pulse Ox 99% on R/A; Weight 95.25 kg ca1 (R); Height 5 ft. 9 in. (175.26 cm) (R); Pain 8/10; 20:25 BP 142 / 91; Pulse 80; Resp 18; Pulse Ox 98% on R/A; ea 21:45 BP 157 / 90; Pulse 78; Resp 18; Pulse Ox 98% ; ea 18:43 Body Mass Index 31.01 (95.25 kg, 175.26 cm) ca1 MDM: 19:13 Patient medically screened. rn 21:18 Differential diagnosis: DVT, arterial claudication, nerve pain, travis's cyst. Data rn reviewed: vital signs, nurses notes, lab test result(s), radiologic studies, doppler, and as a result, I will discharge patient. Counseling: I had a detailed discussion with the patient and/or guardian regarding: the historical points, exam findings, and any diagnostic results supporting the discharge/admit diagnosis, lab results, radiology results, the need for outpatient follow up, to return to the emergency department if symptoms worsen or persist or if there are any questions or concerns that arise at home. Special discussion: I discussed with the patient/guardian in detail that at this point there is no indication for admission to the hospital. It is understood, however, that if the symptoms persist or worsen the patient needs to return immediately for re-evaluation. Based on the history and exam findings, there is no indication for further emergent testing or inpatient evaluation. I discussed with the patient/guardian the need to see the importer or exporter for further evaluation of the symptoms. I discussed with the patient/guardian the need to see the orthopedic surgeon for further evaluation of the symptoms. I discussed with the patient/guardian the need to see the primary care provider for further evaluation of the symptoms. ED course: No acute findings on arterial/venous dopplers, boodwork unremarkable, recommend compression stockings, continuation of aspirin, leg elevation, cardiology and ortho f/u.. 10/31 19:31 Order name: CBC with Diff; Complete Time: 20:57 rn 10/31 19:31 Order name: Basic Metabolic Panel; Complete Time: 21: rn 10/31 19:31 Order name: LFT's; Complete Time: 21: rn 10/31 19:31 Order name: BNP; Complete Time: 21: rn 10/31 19:31 Order name: Protime (+inr); Complete Time: 20:57 rn 10/31 19:31 Order name: Ptt, Activated; Complete Time: 20:57 rn 10/31 19:31 Order name: Lower Extremity Arterial Bilat US; Complete Time: 20:57 rn 10/31 20:02 Order name: Extrem Venous W Compress Eric; Complete Time: 20:45 EDMS Administered Medications: No medications were administered Disposition: 10/31/20 21:20 Discharged to Home. Impression: Edema, unspecified, Pain in left lower leg. - Condition is Stable. - Discharge Instructions: Peripheral Edema. - Work release form, Medication Reconciliation Form, Thank You Letter, Antibiotic Education, Prescription Opioid Use form. - Follow up: Private Physician; When: As needed; Reason: Recheck today's complaints, Re-evaluation by your physician. - Problem is new. - Symptoms have improved. Signatures: Dispatcher [employer] EDOR Oscar Mendez MD MD rn Attema, Phill, BLACK JACK DEALER-C BLACK JACK DEALER-Cla1 Nuzhat Rojas RN RN ea Acob, Cheryl RN RN ca1 Corrections: (The following items were deleted from the chart) 20:02 18:51 Extremity Venous Uni Ltd+[email or web address].RAD.BRZ ordered. [facility] EDOR 21:54 21:20 10/31/2020 21:20 Discharged to Home. Impression: Edema, unspecified; Pain in left ea lower leg. Condition is Stable. Forms are Medication Reconciliation Form, Thank You Letter, Antibiotic Education, Prescription Opioid Use. Follow up: Private Physician; When: As needed; Reason: Recheck today's complaints, Re-evaluation by your physician. Problem is new. Symptoms have improved. rn
[2020-11-01 07:42] VITALS: TEMP 98.1
[2020-11-01 07:43] VITALS: BP 142/91; O2SAT 98
== END 2020-10-31 21:54 | disposition home or self-care (01) ==
LOC: ER 18:38
DX: R22.42 Localized swelling, mass and lump, left lower limb (principal); M79.662 Pain in left lower leg; Z87.891 Personal history of nicotine dependence; J45.909 Unspecified asthma, uncomplicated; I10 Essential (primary) hypertension
CPT/HCPCS: 36415; 80048; 80076; 83880; 85025; 85610; 85730; 93925; 93970; 99283

== ENCOUNTER 2021-09-22 08:28 | Emergency (ER) | payer BC, OTHER ==
--- OUTSIDE RECORDS SUMMARY | 2021-09-22 08:31 | XMS REPORT | Continuity of Care Document ---
:1960 Author Organization [facility] t Address [address] [place] [address] Care Team Providers Name Role Phone Silvia Villa Attending Clinician Unavailable NIC Admitting Clinician Unavailable Problems This patient has no known problems. Allergies, Adverse Reactions, Alerts Allergy Allergy Status Severity Reaction(s) Onset Inactive Treating Comm ents Source Name Type Date Date Clinician Soma Adverse Active It[facility] Morphine Adverse Active Itch [facility] Sulf[facility] Bactrim Adverse Active Itch [facility] Medications Ordered Filled Start Stop Current Ordering [...] - e e [facility] Restoril Restoril 2019-0 Yes Prashant [address] [facility] 6-23 [facility] Vitamin Vitamin 2019-0 Yes Prashant [address] D-1000 Max D-1000 Max 5-07 [facility] - [facility] Symbicort Symbicort Yes Prashant [address] [facility] Promethazin Promethazin Yes Prashant [address] [facility] e HCl e HCl [facility] needed [facility] Losartan Losartan Yes Prashant [address] Potassium Potassium [facility] Procedures This patient has no known procedures. Encounters Start End Encounter Admission Attending Care Care Encounter Source Date/Time Date/Time Type Type Clinicians Facility Department ID 2021-09-17 Out[place] [place] [id number] [facility] 13:21:02 Prashant [id number] [facility] 2021-09-16 Out[facility], [place] [id number] [facility] 09:25:02 Prashant [facility] 2021-08-28 Out[facility] [place], [place] [id number] [facility] 14:31:08 Prashant [facility] 2021-08-28 Out[facility] [place], [place] [id number] 13:54:39 Prashant [id number] [facility] 2021-08-28 Outpatient [place], [place] [id number] [facility] 13:31:33 Prashant [id number] [facility] 2021-08-28 Outpatient [place], [place] [id number] 12:48:45 Prashant [id number] [facility] 2021-08-28 Out[place], [place] [id number] [address] 12:31:23 Prashant [id number] [facility] 2021-08-28 Outpatient [facility], [facility] [id number] 12:28:23 Prashant [id number] [facility] 2021-08-28 Outpatient [facility], [facility] [id number] [address] 12:17:10 Prashant [id number] [facility] 2021-08-28 Outpatient [facility], [facility] [id number] 12:15:01 Prashant [id number] [facility] 2021-08-28 Outpatient [facility], [facility] [id number] 11:32:24 Prashant [id number] [facility] 2021-08-28 Outpatient [facility], [facility] [id number] 11:31:30 Prashant [id number] [facility] 2021-08-28 Outpatient [facility], [facility] [id number] 11:20:48 Prashant [id number] [facility] 2021-08-28 Outpatient [facility], [facility] [id number] 11:16:50 Prashant [id number] [facility] 2021-08-28 Outpatient [facility], [facility] [id number] 11:16:28 Prashant [id number] [facility] 2021-08-28 Outpatient [facility] [id number] [facility] 11:13:33 [id number] [facility] 2021-09-16 2021-09-16 ambulatory [facility] [id number] [facility] 2021-05-20 2021-05-20 Outpatient [facility] [id number] [facility] 2021-05-02 2021-05-02 Outpatient [facility] [id number] [facility] 2021-02-27 2021-02-27 Outpatient [facility] [id number] [facility] 2021-01-07 2021-01-07 Outpatient [facility] [id number] [facility] 2020-12-13 2020-12-13 Outpatient [facility] [id number] [facility] 2020-12-11 2020-12-11 Outpatient [facility] [id number] [facility] 2020-12-10 2020-12-10 Outpatient [facility] [id number] [facility] 2020-12-06 2020-12-06 Outpatient [facility] [id number] [facility] 2020-12-06 2020-12-06 Outpatient [facility] [id number] [facility] 2020-11-30 2020-11-30 Outpatient [facility] [id number] [facility] 2020-11-29 2020-11-29 Outpatient [facility] [id number] [facility] 2020-11-29 2020-11-29 Outpatient [facility] [id number] [facility] 2020-11-22 2020-11-22 Outpatient [facility] [id number] [facility] 2020-11-16 2020-11-16 Outpatient [facility] [id number] [facility] 2020-11-12 2020-11-12 Outpatient [facility] [id number] [facility] 2020-11-07 2020-11-07 Outpatient [facility] [id number] [facility] 2020-11-06 2020-11-06 Outpatient [facility] [id number] [facility] 2020-10-31 2020-10-31 Outpatient [facility] [id number] [facility] 2020-09-21 2020-09-21 Outpatient [facility] [id number] [facility] 2020-09-20 2020-09-20 Outpatient [facility] [id number] [facility] 2020-09-11 2020-09-11 Outpatient [facility] [id number] [facility] 2020-09-05 2020-09-05 Outpatient [facility] [id number] [facility] 2020-09-04 2020-09-04 Outpatient [facility] [id number] [facility] 2020-08-31 2020-08-31 Outpatient [facility] [id number] [facility] 2020-08-29 2020-08-29 Outpatient [facility] [id number] [facility] 2020-08-02 2020-08-02 [facility] [id number] [facility] 2020-06-21 2020-06-21 [facility] [id number] [facility] 2020-06-20 2020-06-20 [facility] [id number] [facility] 2020-02-23 2020-02-23 [facility] [id number] [facility] 10:30:00 10:30:00 [address] [employer] [address] - Drive [facility] Medicine l Medicine Outpat[facility] ent Clinics 2020-02-02 2020-02-02 [facility] [id number] [facility] 16:15:00 16:15:00 t [employer] - [employer] [facility] Medicine l Medicine Outpati ent Clinics 2020-01-26 2020-01-26 [facility] [id number] 09:02:00 09:02:00 t [place] [employer] - [employer] [facility] Medicine l Medicine Outpati ent Clinics 2020-01-25 2020-01-25 [facility] [id number] [facility] 09:33:00 09:33:00 t [employer] - [employer] [facility] l Medicine Outpati ent Clinics 2020-01-24 2020-01-24 [facility] [id number] [facility] 15:30:00 15:30:00 t [place] [employer] - [employer] [facility] Medicine Medicine Outpati ent Clinics 2020-01-23 2020-01-23 [facility] [id number] [facility] 08:26:00 08:26:00 t [facility] [employer] [facility] l Medicine Outpati ent Clinics 2020-01-23 2020-01-23 [facility] [id number] [facility] 00:14:00 00:14:00 t [facility] [employer] [facility] Medicine Outpati ent Clinics 2020-01-06 2020-01-06 [facility] [id number] [facility] 08:06:00 08:06:00 t [place] [employer] [facility] Medicine Outpati ent Clinics 2020-01-05 2020-01-05 [facility] [id number] [facility] 10:30:00 10:30:00 t [place] [employer] - Drive [facility] l Medicine Outpati ent Clinics 2020-01-01 2020-01-01 [facility] [id number] [facility] 19:47:00 19:47:00 t [place] [employer] [facility] Medicine Outpati ent Clinics 2019-12-13 2019-12-13 [facility] [id number] [facility] 13:27:00 13:27:00 t [facility] [employer] [facility] l Medicine Outpati ent Clinics 2019-12-08 2019-12-08 [facility] [id number] 08:07:00 08:07:00 t [place] [employer] [facility] Medicine Outpati ent Clinics 2019-12-07 2019-12-07 [facility] [id number] [facility] 13:00:00 13:00:00 t [place] [employer] [facility] Medicine Outpati ent Clinics 2019-11-24 2019-11-24 [facility] [id number] [facility] 09:15:00 09:15:00 t [place] [employer] [facility] Medicine Outpati ent Clinics 2019-11-04 2019-11-04 [facility] [id number] 09:00:00 09:00:00 t [place] [employer] [facility] Medicine Outpati ent Clinics 2019-10-13 2019-10-13 [facility] [id number] [facility] 14:30:00 14:30:00 t [place] [employer] - Drive [facility] Medicine Outpati ent Clinics Results This patient has no known results.
--- NOTE | 2021-09-22 09:55 | RAD REPORT ---
EXAM DESCRIPTION: CT - Head C Spine Mpr Wo Con - 09/22/2021 9:11 am CLINICAL HISTORY: Head and neck injury status post trauma. Head and neck pain COMPARISON: 2019 TECHNIQUE: Computed axial tomography of the head and cervical spine was obtained. Sagittal and coronal reconstruction was performed. All CT scans are performed using dose optimization technique as appropriate and may include automated exposure control or mA/KV adjustment according to patient size. FINDINGS: An intracranial bleed is not seen. Cerebellar tonsillar ectopia. The ventricles are normal in caliber. An extra-axial fluid collection is not noted.Fluid within the v isualized sinuses and mastoids is not seen A cervical fracture is not visualized. No dislocation is noted. IMPRESSION: No acute intracranial abnormality is seen. A cervical fracture is not visualized. If the patient continues to have symptoms to suggest intracra nial /spinal cord pathology then MRI would be recommended Cerebellar tonsillar ectopia
[2021-09-22] MEDS ORDERED: KETOROLAC 30 MG/ML INJ ONE (10:23)
[2021-09-22] MEDS ORDERED: DIPHENHYDRAMINE 50 MG/ML VIAL ONE (10:23)
[2021-09-22] MEDS ORDERED: METOCLOPRAMIDE 10 MG/2mL INJ ONE (10:23)
[2021-09-22] MEDS ORDERED: NA CHLORIDE 0.9% 500 ML ONE (10:23)
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
[2021-09-22 11:41] VITALS: TEMP 97.9
[2021-09-22 11:45] VITALS: BP 145/83; O2SAT 100
== END 2021-09-22 11:33 | disposition home or self-care (01) ==
LOC: ER 08:28
DX: R51.9 Headache, unspecified (principal); F17.210 Nicotine dependence, cigarettes, uncomplicated; I10 Essential (primary) hypertension; Z88.1 Allergy status to other antibiotic agents; Z88.5 Allergy status to narcotic agent
CPT/HCPCS: 96361; 70450; 72125; 96375; 96374; 99284; J2765; J1200; J7040

== ENCOUNTER 2022-03-13 12:27 | Emergency (ER) | payer BC, OTHER ==
--- OUTSIDE RECORDS SUMMARY | 2022-03-13 12:29 | XMS REPORT | Continuity of Care Document ---
:1960 Author Organization [facility] t Address [address] [place] [address] Care Team Providers Name Role Phone Prashant Villa Attending Clinician Unavailable PRASHANT VILLA Admitting Clinician Unavailable Problems This patient has no known problems. Allergies, Adverse Reactions, Alerts Allergy Allergy Status Severity Reaction(s) Onset Inactive Treating Comm ents Source Name Type Date Date Clinician Soma Adverse Active Itch Common Reaction [facility] Morphine Adverse Active Itch Common Sulfate Reaction [facility] Bactrim Adverse Active Itch Common Reaction [facility] Medications Ordered Filled Start Stop Current Ordering Indication Dosage Frequency Signature Comments Components Source Medication Medication Date Date Medication? Clinician (SIG) Name Name Amlodipine Amlodipine 2020-0 Yes Prashant 1 tablet Common Besylate Besylate 6-25 [facility] 00:00: evening - 00 [facility] Citalopram Citalopram 2019-0 Yes Prashant 1 tablet Common Hydrobromid Hydrobromid 6-23 [facility] 00:00: - [facility] Restoril Restoril 2020-0 Yes Prashant 1 capsule Common 01-23 [facility] at bedtime Spirit 00:00: as needed - [facility] Vitamin Vitamin 2020-0 Yes Prashant 2 tablet C ommon D-1000 Max D-1000 Max 5-[address] 00:00: - [facility] Symbicort Symbicort Yes Prashant 2 puffs Common Villa [facility] Promethazin Promethazin Yes Prashant 10 ml as Common e HCl e HCl Villa needed [facility] Losartan Losartan Yes Prashant 1 tablet C ommon Potassium Potassium [facility] Procedures This patient has no known procedures. Encounters Start End Encounter Admission Attending Care Care Encounter Source Date/Time Date/Time Type Type Clinicians Facility Department ID 2022-02-27 Outpatient [facility], STLMLC STLMLC [id number] Common 13:45:00 Prashant [facility] 2022-02-18 Outpatient [facility], STLMLC STLMLC [id number] Common 10:02:01 Prashant [facility] 2022-01-02 Outpatient [facility], STLMLC STLMLC [id number] Common 09:20:01 Prashant [facility] 2021-12-09 Outpatient [facility], STLMLC STLMLC [id number] Common 09:46:01 Prashant [facility] 2021-11-22 Outpatient [facility], STLMLC STLMLC [id number] Common 10:08:00 Prashant [facility] 2021-09-30 Outpatient [facility], STLMLC STLMLC [id number] Common 10:25:00 Prashant [facility] 2021-09-27 Outpatient [facility], STLMLC STLMLC [id number] Common 08:33:02 Prashant [facility] 2021-09-17 Outpatient [facility], STLMLC STLMLC [id number] Common 13:21:02 Prashant [facility] 2021-09-16 Outpatient [facility], STLMLC STLMLC [id number] Common 09:25:02 Prashant [facility] 2021-08-28 Outpatient [facility], STLMLC STLMLC [id number] Common 14:31:08 Prashant [facility] 2021-08-28 Outpatient [facility], STLMLC STLMLC [id number] Common 13:54:39 Prashant [id number] [facility] 2021-08-28 Outpatient [facility], STLMLC STLMLC [id number] Common 13:31:33 Prashant [facility] 2021-08-28 Outpatient [facility], STLMLC STLMLC [id number] Common 12:48:45 Prashant [id number] [facility] 2021-08-28 Outpatient [facility], STLMLC STLMLC [id number] Common 12:31:23 Prashant [id number] [facility] 2021-08-28 Outpatient [facility], STLMLC STLMLC [id number] Common 12:28:23 Prashant [id number] [facility] 2021-08-28 Outpatient [facility], STLMLC STLMLC [id number] Common 12:17:10 Prashant [id number] [facility] 2021-08-28 Outpatient [facility], STLMLC STLMLC [id number] Common 12:15:01 Prashant [facility] 2021-08-28 Outpatient [facility], STLMLC STLMLC [id number] Common 11:32:24 Prashant [id number] [facility] 2021-08-28 Outpatient [facility], STLMLC STLMLC [id number] Common 11:31:30 Prashant [id number] [facility] 2021-08-28 Outpatient [facility], STLMLC STLMLC [id number] Common 11:20:48 Prashant [id number] [facility] 2021-08-28 Outpatient [facility], STLMLC STLMLC [id number] Common 11:16:50 Prashant [id number] [facility] 2021-08-28 Outpatient [facility], STLMLC STLMLC [id number] Common 11:16:28 Prashant [id number] [facility] 2021-08-28 Outpatient STLMLC STLMLC [id number] Common 11:13:33 [id number] [facility] 2022-03-04 2022-03-04 ambulatory STLMLC STLMLC [id number] Common 00:00:00 00:00:00 [facility] 2022-02-27 2022-02-27 ambulatory STLMLC STLMLC [id number] Common 00:00:00 00:00:00 [facility] 2021-12-31 2021-12-31 ambulatory STLMLC STLMLC [id number] Common 00:00:00 00:00:00 [facility] 2021-12-17 2021-12-17 ambulatory STLMLC STLMLC [id number] Common 00:00:00 00:00:00 [facility] 2021-12-10 2021-12-10 ambulatory STLMLC STLMLC [id number] Common 00:00:00 00:00:00 [facility] 2021-12-03 2021-12-03 ambulatory STLMLC STLMLC [id number] Common 00:00:00 00:00:00 [facility] 2021-11-28 2021-11-28 ambulatory STLMLC STLMLC [id number] Common 00:00:00 00:00:00 [facility] 2021-11-26 2021-11-26 ambulatory STLMLC STLMLC [id number] Common 00:00:00 00:00:00 [facility] 2021-11-22 2021-11-22 ambulatory STLMLC STLMLC [id number] Common 00:00:00 00:00:00 [facility] 2021-10-29 2021-10-29 ambulatory STLMLC STLMLC [id number] Common 00:00:00 00:00:00 [facility] 2021-10-28 2021-10-28 ambulatory STLMLC STLMLC [id number] Common 00:00:00 00:00:00 [facility] 2021-10-22 2021-10-22 ambulatory STLMLC STLMLC [id number] Common 00:00:00 00:00:00 [facility] 2021-09-30 2021-09-30 ambulatory STLMLC STLMLC [id number] Common 00:00:00 00:00:00 [facility] 2021-09-16 2021-09-16 ambulatory STLMLC STLMLC [id number] Common 00:00:00 00:00:00 [facility] 2021-05-20 2021-05-20 Outpatient STLMLC STLMLC [id number] Common 00:00:00 00:00:00 [facility] 2021-05-02 2021-05-02 Outpatient STLMLC STLMLC [id number] Common 00:00:00 00:00:00 [facility] 2021-02-27 2021-02-27 Outpatient STLMLC STLMLC [id number] Common 00:00:00 00:00:00 [facility] 2021-01-07 2021-01-07 Outpatient STLMLC STLMLC [id number] Common 00:00:00 00:00:00 [facility] 2020-12-13 2020-12-13 Outpatient STLMLC STLMLC [id number] Common 00:00:00 00:00:00 [facility] 2020-12-11 2020-12-11 Outpatient STLMLC STLMLC [id number] Common 00:00:00 00:00:00 [facility] 2020-12-10 2020-12-10 Outpatient STLMLC STLMLC [id number] Common 00:00:00 00:00:00 [facility] 2020-12-06 2020-12-06 Outpatient STLMLC STLMLC [id number] Common 00:00:00 00:00:00 [facility] 2020-12-06 2020-12-06 Outpatient STLMLC STLMLC [id number] Common 00:00:00 00:00:00 [facility] 2020-11-30 2020-11-30 Outpatient STLMLC STLMLC [id number] Common 00:00:00 00:00:00 [facility] 2020-11-29 2020-11-29 Outpatient STLMLC STLMLC [id number] Common 00:00:00 00:00:00 [facility] 2020-11-29 2020-11-29 Outpatient STLMLC STLMLC [id number] Common 00:00:00 00:00:00 [facility] 2020-11-22 2020-11-22 Outpatient STLMLC STLMLC [id number] Common 00:00:00 00:00:00 [facility] 2020-11-16 2020-11-16 Outpatient STLMLC STLMLC [id number] Common 00:00:00 00:00:00 [facility] 2020-11-12 2020-11-12 Outpatient STLMLC STLMLC [id number] Common 00:00:00 00:00:00 [facility] 2020-11-07 2020-11-07 Outpatient STLMLC STLMLC [id number] Common 00:00:00 00:00:00 [facility] 2020-11-06 2020-11-06 Outpatient STLMLC STLMLC [id number] Common 00:00:00 00:00:00 [facility] 2020-10-31 2020-10-31 Outpatient STLMLC STLMLC [id number] Common 00:00:00 00:00:00 [facility] 2020-09-21 2020-09-21 Outpatient STLMLC STLMLC [id number] Common 00:00:00 00:00:00 [facility] 2020-09-20 2020-09-20 Outpatient STLMLC STLMLC [id number] Common 00:00:00 00:00:00 [facility] 2020-09-11 2020-09-11 Outpatient STLMLC STLMLC [id number] Common 00:00:00 00:00:00 [facility] 2020-09-05 2020-09-05 Outpatient STLMLC STLMLC [id number] Common 00:00:00 00:00:00 [facility] 2020-09-04 2020-09-04 Outpatient STLMLC STLMLC [id number] Common 00:00:00 00:00:00 [facility] 2020-08-31 2020-08-31 Outpatient STLMLC STLMLC [id number] Common 00:00:00 00:00:00 [facility] 2020-08-29 2020-08-29 Outpatient STLMLC STLMLC [id number] Common 00:00:00 00:00:00 [facility] 2020-08-02 2020-08-02 Outpatient STLMLC STLMLC [id number] Common 00:00:00 00:00:00 [facility] 2020-06-21 2020-06-21 Outpatient STLMLC STLMLC [id number] Common 00:00:00 00:00:00 [facility] 2020-06-20 2020-06-20 Outpatient STLMLC STLMLC [id number] Common 00:00:00 00:00:00 [facility] 2020-02-23 2020-02-23 [facility] [id number] Common 10:30:00 10:30:[address] [facility] 2020-02-02 2020-02-02 [facility] [id number] Common 16:15:00 16:15:[address] [facility] 2020-01-26 2020-01-26 [facility] [id number] Common 09:02:00 09:02:[address] [facility] 2020-01-25 2020-01-25 [facility] [id number] Common 09:33:00 09:33:[address] [facility] 2020-01-24 2020-01-24 [facility] [id number] Common 15:30:00 15:30:[address] [facility] 2020-01-23 2020-01-23 [facility] [id number] Common 08:26:00 08:26:00 [address] [facility] [address] [facility] 2020-01-23 2020-01-23 [facility] [id number] Common 00:14:00 00:14:00 t [facility] [address] [facility] 2020-01-06 2020-01-06 [facility] [id number] Common 08:06:00 08:06:[address] [facility] 2020-01-05 2020-01-05 [facility] [id number] Common 10:30:00 10:30:[address] [facility] 2020-01-01 2020-01-01 [facility] [id number] Common 19:47:00 19:47:[address] [facility] 2019-12-13 2019-12-13 [facility] [id number] Common 13:27:00 13:27:00 [address] [facility] [address] [facility] 2019-12-08 2019-12-08 [facility] [id number] Common 08:07:00 08:07:[address] [facility] 2019-12-07 2019-12-07 [facility] [id number] Common 13:00:00 13:00:[address] [facility] 2019-11-24 2019-11-24 [facility] [id number] Common 09:15:00 09:15:[address] [facility] 2019-11-04 2019-11-04 [facility] [id number] Common 09:00:00 09:00:[address] [facility] 2019-10-13 2019-10-13 Outpatient Josiascoreen Rody [id number] Common 14:30:00 14:30:00 t [employer] [facility] [employer] [facility] Results This patient has no known results.
--- NOTE | 2022-03-13 13:21 | RAD REPORT ---
EXAM DESCRIPTION: CT - Head Brain Wo Cont - 03/13/2022 1:07 pm CLINICAL HISTORY: Headache, new or worsening Headache, drowsiness COMPARISON: Head Brain Wo Cont dated 10/18/2019 TECHNIQUE: All CT scans are performed using dose optimization technique as appropriate and may inclu de automated exposure control or mA/KV adjustment according to patient size. FINDINGS: No intracranial hemorrhage, hydrocephalus or extra-axial fluid collection.No areas of brai n edema or evidence of midline shift. The paranasal sinuses and mastoids are clear. The calvarium is intact. IMPRESSION: No acute intracranial abnormality.
[2022-03-13] MEDS ORDERED: METOCLOPRAMIDE 10 MG/2mL INJ ONE (13:41)
[2022-03-13] MEDS ORDERED: dexAMETHasone 10 MG/ML VIAL ONE (13:42)
[2022-03-13] MEDS ORDERED: DIPHENHYDRAMINE 50 MG/ML VIAL ONE (13:42)
--- NOTE | 2022-03-13 14:32 | EDPHYS ---
Physician Documentation [facility] Name: Rhona Ladd Age: 61 yrs Sex: Female : 1960 Arrival Date: 03/13/2022 Time: 12:35 Bed 3 Private MD: ED Physician Umer Priest HPI: 03/13 12:50 This 61 yrs old Female presents to ER via Ambulatory with complaints of Headache. pm1 12:50 The patient complains of pain to the left base of the skull and right base of the pm1 skull. The patient describes the headache as aching. Onset: The symptoms/episode began/occurred 1 week(s) ago. Associated signs and symptoms: The patient has no apparent associated signs or symptoms, Pertinent negatives: dizziness, fever, nausea, neck stiffness, paresthesias, vomiting, weakness. Severity of symptoms: in the emergency department the pain is unchanged. Headache History: Denies prior headaches. The symptoms are alleviated by nothing. the symptoms are aggravated by nothing. The patient has not experienced similar symptoms in the past. The patient has not recently seen a physician. Patient seen in the past for similar headache with right leg cramping in April of last year.. Historical: - Allergies: 12:50 Bactrim; bm7 12:50 Morphine; bm7 12:50 Soma; bm7 - Home Meds: 12:50 amlodipine oral [Active]; gabapentin Oral [Active]; losartan Oral [Active]; bm7 - PMHx: 12:50 Asthma; Hypertension; bm7 - PSHx: 12:50 Appendectomy; section; Cholecystectomy; bm7 - Immunization history:: Adult Immunizations up to date. - Social history:: Smoking status: Patient reports the use of cigarette tobacco products, smokes one-half pack cigarettes per day, Patient uses alcohol. ROS: 12:50 Constitutional: Negative for fever, chills, and weight loss, Cardiovascular: Negative pm1 for chest pain, palpitations, and edema, Respiratory: Negative for shortness of breath, cough, wheezing, and pleuritic chest pain, MS/Extremity: Negative for injury and deformity, Skin: Negative for injury, rash, and discoloration. 12:50 Neuro: Positive for headache, of the right base of the skull and left base of the skull. 12:50 All other systems are negative. Exam: 12:50 Constitutional: This is a well developed, well nourished patient who is awake, alert, pm1 and in no acute distress. 12:50 Neck: Trachea midline, no thyromegaly or masses palpated, and no cervical lymphadenopathy. Supple, full range of motion without nuchal rigidity, or vertebral point tenderness. No Meningismus. Negative for axial compression tests 12:50 Back: No spinal tenderness. No costovertebral tenderness. Full range of motion. Skin: Warm, dry with normal turgor. Normal color with no rashes, no lesions, and no evidence of cellulitis. MS/ Extremity: Pulses equal, no cyanosis. Neurovascular intact. Full, normal range of motion. 12:50 Head/face: Noted is no obvious of injury or deformity except tenderness, that is mild, of the left base of the skull. 12:50 Eyes: Exam is negative for acute changes, Pupils: no acute changes, Extraocular movements: intact throughout, Conjunctiva: no acute changes, no injection. 12:50 ENT: Mouth: no acute changes, Lips: normal, moist, Oral mucosa: normal, pink and intact, moist. 12:50 Cardiovascular: Exam negative for acute changes, Rate: normal, Rhythm: regular, Pulses: no pulse deficits are appreciated. 12:50 Respiratory: Exam negative for acute changes, respiratory distress, shortness of breath. 12:50 Neuro: Exam negative for acute changes, Orientation: is normal, Mentation: is normal, Cranial nerves: CN II- XII are normal as tested, Motor: moves all fours, strength is 5/5 in all extremities, Gait: is steady, at a normal pace, without difficulty. Vital Signs: 12:48 BP 142 / 86; Pulse 82; Resp 16; Temp 97.8(TE); Pulse Ox 95% on R/A; Weight 95.25 kg bm7 (R); Height 0 ft. 3 in. (8 cm); Pain 5/10; 12:48 BP 138 / 83; Pulse 67; Resp 17 S; Temp 97.9(O); Pulse Ox 96% on R/A; Pain 10/10; ha1 14:15 BP 138 / 86; Pulse 68; Resp 17; Pulse Ox 95% on R/A; Pain 3/10; ha1 14:53 BP 133 / 82; Pulse 68; Resp 17 S; Pulse Ox 96% on R/A; ha1 12:48 Body Mass Index 12169.50 (95.25 kg, 8 cm) bm7 MDM: 12:50 Patient medically screened. pm1 13:36 Counseling: I had a detailed discussion with the patient and/or guardian regarding: pm1 radiology results, Discuss CT results with patient. No acute findings. Pending patient administration of pain medicines and will go back to reevaluate the patient. 13:41 Data reviewed: vital signs. Data interpreted: Pulse oximetry: on room air is 95 %. pm1 Interpretation: normal. 14:34 ED course: Patient reported headache was 12/10 and is now 2/10 with medications given pm1 in the ER. Patient reports she is ready to go home. Therefore I will discharge the patient. 14:37 ED course: [place] reviewed. pm1 03/13 12:49 Order name: CT Head Brain wo Cont; Complete Time: 13:23 pm1 03/13 12:49 Order name: IV Saline Lock; Complete Time: 14:57 pm1 Administered Medications: 13:45 Drug: Decadron - Dexamethasone 10 mg Route: IVP; Site: left forearm; ha1 14:15 Follow up: Response: No adverse reaction; Pain is decreased ha1 13:45 Drug: Benadryl (diphenhydrAMINE) 12.5 mg Route: IVP; Site: left forearm; ha1 14:15 Follow up: Response: No adverse reaction ha1 13:45 Drug: Reglan (metoCLOPramide) 10 mg Route: IVP; Site: left forearm; ha1 14:15 Follow up: Response: No adverse reaction ha1 Disposition: 21:02 Co-signature as Attending Physician, Umer Priest DO I was immediately available on-site ms3 in the Emergency Department for consultation in the care of the patient. . Disposition Summary: 03/13/22 14:32 Discharge Ordered Location: Home pm1 Problem: new pm1 Symptoms: have improved pm1 Condition: Stable pm1 Diagnosis - Headache pm1 Followup: pm1 - With: Emergency Department - When: As needed - Reason: Worsening of condition Followup: pm1 - With: Private Physician - When: 2 - 3 days - Reason: Recheck today's complaints, Continuance of care, Re-evaluation by your physician Discharge Instructions: - Discharge Summary Sheet pm1 - General Headache Without Cause pm1 Forms: - Medication Reconciliation Form pm1 - Thank You Letter pm1 - Antibiotic Education pm1 - Prescription Opioid Use pm1 Prescriptions: - cecmhhjclc-ekdytdz-zsyhokig 50-325-40 mg Oral tablet - take 1 tablet by ORAL route every 4 hours As needed as needed not to exceed 6 pm1 tablets per 24hrs; 20 tablet; Refills: 0, Product Selection Permitted Signatures: Dispatcher [employer] EDWillard New NP SENIOR COMPENSATION ANALYST pm1 Umer Priest DO DO ms3 Ellen Degroot, RN RN bm7 Dorothea Cline RN RN ha1
--- NOTE | 2022-03-13 14:32 | ER ---
Nurse's Notes [facility] Name: Rhona Ladd Age: 61 yrs Sex: Female : 1960 Arrival Date: 03/13/2022 Time: 12:35 Bed 3 Private MD: Diagnosis: Headache Presentation: 03/13 12:48 Chief complaint: Patient states: I have had a headache for six days and it will not go bm7 away and I am so tired of it. Coronavirus screen: Vaccine status: Patient reports receiving the 2nd dose of the covid vaccine. Patient reports receiving the 1st dose of the Covid vaccine. Ebola Screen: No symptoms or risks identified at this time. Initial Sepsis Screen: Does the patient meet any 2 criteria? No. Patient's initial sepsis screen is negative. Does the patient have a suspected source of infection? No. Patient's initial sepsis screen is negative. Risk Assessment: Do you want to hurt yourself or someone else? Patient reports no desire to harm self or others. Onset of symptoms was March 07, 2022. 12:48 Method Of Arrival: Ambulatory 7 12:48 Acuity: CHON 3 bm7 Triage Assessment: 12:50 Headache History: Denies prior headaches. General: Appears in no apparent distress. bm7 uncomfortable, Behavior is calm, cooperative, appropriate for age. Pain: Complains of pain in forehead Pain radiates to left leg Pain currently is 5 out of 10 on a pain scale. Quality of pain is described as aching, Pain began 6 days ago Also complains of no other associated symptoms. EENT: No deficits noted. No signs and/or symptoms were reported regarding the EENT system. Neuro: Level of Consciousness is awake, alert, obeys commands, Oriented to person, place, time, Control Electrician are equal bilaterally Moves all extremities. Gait is steady, Speech is normal, Facial symmetry appears normal, Pupils are PERRLA. Cardiovascular: No deficits noted. Respiratory: No deficits noted. GI: No deficits noted. No signs and/or symptoms were reported involving the gastrointestinal system. : No deficits noted. No signs and/or symptoms were reported regarding the genitourinary system. Derm: No deficits noted. No signs and/or symptoms reported regarding the dermatologic system. Musculoskeletal: No deficits noted. No signs and/or symptoms reported regarding the musculoskeletal system. Historical: - Allergies: 12:50 Bactrim; bm7 12:50 Morphine; bm7 12:50 Soma; bm7 - Home Meds: 12:50 amlodipine oral [Active]; gabapentin Oral [Active]; losartan Oral [Active]; bm7 - PMHx: 12:50 Asthma; Hypertension; bm7 - PSHx: 12:50 Appendectomy; section; Cholecystectomy; bm7 - Immunization history:: Adult Immunizations up to date. - Social history:: Smoking status: Patient reports the use of cigarette tobacco products, smokes one-half pack cigarettes per day, Patient uses alcohol. Screenin:48 Abuse screen: Denies threats or abuse. ha1 12:48 Nutritional screening: No deficits noted. Tuberculosis screening: No symptoms or risk ha1 factors identified. Fall Risk Gait- Normal/Bed Rest/Wheelchair (0 pts). Assessment: 12:48 General: Appears comfortable, Behavior is calm, cooperative. ha1 12:48 Pain: Complains of pain in head Pain does not radiate. Pain at worst was 10 out of 10 ha1 on a pain scale. Quality of pain is described as Pain began a week Is intermittent, Alleviated by medications, Aggravated by stress. Pain:. Neuro: Level of Consciousness is awake, alert, obeys commands, Oriented to person, place, time, situation. Neuro: Reports headache in entire head. Cardiovascular: Heart tones S1 S2 present Capillary refill < 3 seconds in bilateral fingers. Respiratory: Airway is patent Respiratory effort is even, unlabored, Respiratory pattern is regular, symmetrical, Breath sounds are clear bilaterally. GI: No signs and/or symptoms were reported involving the gastrointestinal system. Abdomen is non-distended, obese. GI: Bowel sounds present X 4 quads. : No signs and/or symptoms were reported regarding the genitourinary system. EENT: No signs and/or symptoms were reported regarding the EENT system. Derm: Reports that her dogs scratched her hands whenever she was playing with them. Musculoskeletal: Range of motion: intact in all extremities. 13:41 Reassessment: Patient and/or family updated on plan of care and expected duration. Pain ha1 level reassessed. Patient is alert, oriented x 3, equal unlabored respirations, skin warm/dry/pink. 14:31 Reassessment: Patient and/or family updated on plan of care and expected duration. Pain ha1 level reassessed. Patient is alert, oriented x 3, equal unlabored respirations, skin warm/dry/pink. Patient states feeling better. Patient states symptoms have improved. pain 3/10. 14:53 Reassessment: Patient and/or family updated on plan of care and expected duration. Pain ha1 level reassessed. Patient is alert, oriented x 3, equal unlabored respirations, skin warm/dry/pink. Patient denies pain at this time. Vital Signs: 12:48 BP 142 / 86; Pulse 82; Resp 16; Temp 97.8(TE); Pulse Ox 95% on R/A; Weight 95.25 kg bm7 (R); Height 0 ft. 3 in. (8 cm); Pain 5/10; 12:48 BP 138 / 83; Pulse 67; Resp 17 S; Temp 97.9(O); Pulse Ox 96% on R/A; Pain 10/10; ha1 14:15 BP 138 / 86; Pulse 68; Resp 17; Pulse Ox 95% on R/A; Pain 3/10; ha1 14:53 BP 133 / 82; Pulse 68; Resp 17 S; Pulse Ox 96% on R/A; ha1 12:48 Body Mass Index 53876.50 (95.25 kg, 8 cm) bm7 ED Course: 12:35 Patient arrived in ED. as 12:37 Willard Gomez NP is PHCP. pm1 12:37 Umer Priest DO is Attending Physician. pm1 12:48 Placed in gown. Bed in low position. Call light in reach. Side rails up X 1. ha1 12:50 Triage completed. bm7 12:50 Arm band placed on right wrist. bm7 13:08 CT Head Brain wo Cont In Process Unspecified. EDMS 13:09 Dorothea Cline, TESSA is Primary Nurse. ha1 13:30 Inserted saline lock: 20 gauge in left forearm, using aseptic technique. ha1 14:53 No provider procedures requiring assistance completed. IV discontinued, intact, ha1 bleeding controlled, No redness/swelling at site. Pressure dressing applied. Administered Medications: 13:45 Drug: Decadron - Dexamethasone 10 mg Route: IVP; Site: left forearm; ha1 14:15 Follow up: Response: No adverse reaction; Pain is decreased ha1 13:45 Drug: Benadryl (diphenhydrAMINE) 12.5 mg Route: IVP; Site: left forearm; ha1 14:15 Follow up: Response: No adverse reaction ha1 13:45 Drug: Reglan (metoCLOPramide) 10 mg Route: IVP; Site: left forearm; ha1 14:15 Follow up: Response: No adverse reaction ha1 Medication: 14:53 VIS not applicable for this client. ha1 Outcome: 14:32 Discharge ordered by . pm1 14:53 Discharged to home ambulatory. ha1 14:53 Condition: stable 14:53 Discharge instructions given to patient, Instructed on discharge instructions, follow up and referral plans. medication usage, Demonstrated understanding of instructions, follow-up care, medications, Prescriptions given X 1. 14:57 Patient left the ED. ha1 Signatures: Dispatcher [employer] EDMS Claudia Duenas Patrick, [employer] pm1 Cinthia Monte RN RN tw2 Ellen Degroot RN RN 7 Dorothea Cline, TESSA RN ha1 Corrections: (The following items were deleted from the chart) 14:44 14:03 BP 138 / 86; Pulse 68bpm; Resp 17bpm; Pulse Ox 95% RA; tw2 ha1
[2022-03-13 15:50] VITALS: TEMP 97.8
[2022-03-13 16:00] VITALS: BP 133/82; O2SAT 96
== END 2022-03-13 14:57 | disposition home or self-care (01) ==
LOC: ER 12:27
DX: R51.9 Headache, unspecified (principal); I10 Essential (primary) hypertension; F17.210 Nicotine dependence, cigarettes, uncomplicated; Z88.1 Allergy status to other antibiotic agents; Z88.5 Allergy status to narcotic agent
CPT/HCPCS: 70450; 96375; 96374; 99284; J2765; J1200; J1100

== ENCOUNTER 2022-04-10 09:53 | Emergency (ER) | payer BC ==
--- OUTSIDE RECORDS SUMMARY | 2022-04-10 09:58 | XMS REPORT | Continuity of Care Document ---
:1960 Author Organization [facility] t Address [address] [place] [address] Care Team Providers Name Role Phone VillaJun fam Attending Clinician Unavailable Stoney Ya Attending Clinician Miguel Steel Attending Clinician Renea Kelly Attending Clinician JUN VILLA Admitting Clinician Unavailable Miguel Steel Admitting Clinician Renea Kelly Admitting Clinician Problems Condition Condition Condition Status Onset Resolution Last Treating Co mments Source Name Details Category Date Date Treatment Clinician Date ACS ACS Diagnosis Active 2018-04-16 Mem oria Active 04-15 17:32:00 l 04/15/2018 00:00: Gallo Guerrero [address] HIGH BLOOD HIGH Diagnosis Active 2018-04-15 Memoria PRESSURE BLOOD 9-13 11:24:00 l PRESSURE 00:00: Johnson Active 00 [facility] CHEST Diagnosis Active 2017-12-18 Memoria PAIN 5-14 15:17:00 l Active 00:00: Cost 12/14/2017 00 [facility] CARDAIC CARDAIC Diagnosis Active 2017-12-14 Memoria Active 12-14 09:29:00 l 12/14/2017 00:00: Gallo patel [address] CHRISTY CHRISTY Diagnosis Active 2017-12-14 Memoria BILLING BILLING -14 16:36:00 l Active 00:00: Cost 12/14/2017 00 [facility] Epigastric Epigastri Problem 2018-11-03 Memoria pain c pain 13:22:34 l 11/03/2018 Gallo patel [facility] Essential Essential Problem 2018-11-03 Memoria (primary) (primary) 13:22:34 l hypertensi hypertensi He rmann on on 11/03/2018 [facility] Hyperosmol Problem 2018-11-03 M emoria ality and Hyperosmol 13:22:34 l hypernatre ality and Her vega susi hypernatre susi 11/03/2018 [facility] Other Other Problem 2018-11-03 Memor ia chest pain chest pain 13:22:34 l Gallo Gabriel [facility] Headache Headache Problem 2018-11-03 Memoria 11/03/2018 13:22:[facility] [place] Nausea Nausea Problem 2018-11-03 Abdiel princess 11/03/2018 13:22:34 l [facility] Pain in Pain in Problem 2018-11-03 Me moria left arm left arm 13:22:34 l 11/03/2018 Gallo patel [facility] Diverticul Diverticu Problem 2018-11-03 Memoria osis of losis of 13:22:34 l small small Johnson intestine intestine without without perforatio perforatio n or n or abscess abscess without without bleeding bleeding 11/03/2018 [facility] Nicotine Nicotine Problem 2018-11-03 Memoria dependence dependence 13:22:34 l , , Cost cigarettes cigarettes , , uncomplica uncomplica yariel yariel 11/03/2018 [facility] Family Family Problem 2018-11-03 Abdiel princess history of history of 13:22:34 l ischemic ischemic Gallo n heart heart disease disease and other and other diseases 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 11/03/2018 [facility] Hypertensi Hypertens Problem Resolve 2021-07-04 Memoria ve osvaldo d 22:47:27 l disorder, disorder, Herm tiffany systemic systemic arterial arterial (disorder) (disorder) Resolved Problem 07/04/2021 [facility] Smoker Smoker Problem Resolve 2021-07-04 Mem oria (finding) (finding) d 22:47:27 l Resolved Cost Problem 07/04/2021 [facility] Cervical Cervical Problem Active 2021-07-04 Memoria radiculopa radiculopa 22:47:27 l thy thy Cost (disorder) (disorder) Active Problem 07/04/2021 [facility] Paresthesi Problem Active 2021-07-04 M emoria a Paresthesi 22:47:27 l (finding) a Cost (finding) Active Problem 07/04/2021 [facility] Spasm Spasm Problem Active 2021-07-04 Memor ia (finding) (finding) 22:47:27 l Active Johnson Problem 07/04/2021 [facility] 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 Herm tiffany (disorder) (disorder) Active Problem 07/04/2021 [facility] Restless Restless Problem Active 2021-07-04 Memoria legs legs 22:47:27 l (disorder) (disorder) Bola rowland Active Problem 07/04/2021 [facility] CHEST CHEST Diagnosis Active 2017-12-18 Mem oria PAIN, PAIN, 15:17:00 l UNSPECIFIE UNSPECIFIE He janett D D Active [facility] ACUTE ACUTE Diagnosis Active 2018-04-16 Mem oria ISCHEMIC ISCHEMIC 17:32:00 l HEART HEART Cost DISEASE, DISEASE, UNSPECIFIE UNSPECIFIE Active [facility] History of Past Illness Condition Condition Condition Status Onset Resolution Last Treating Co mments Source Name Details Category Date Date Treatment Clinician Date Jaw pain Jaw pain Problem 2018-0 2018-11-03 2018-11-03 Memoria 04/21/201804-21 13:22:34 13:22:34 l 04:15: Gallo patel [address] [place] Allergies, Adverse Reactions, Alerts Allergy Allergy Status Severity Reaction(s) Onset Inactive Treating Comm ents Source Name Type Date Date Clinician morphine morphine Active Memori a l Johnson Soma Soma Active Memoria l Johnson Bactrim Bactrim Active Memoria l Cost Soma Adverse Active Itch Common Reaction [facility] Morphine Adverse Active Itch Common Sulfate Reaction [facility] Bactrim Adverse Active Itch Common Reaction [facility] Social History Social Habit Start Date Stop Date Quantity Comments Source Social History 2013-08-19 2013-08-19 [facility] krishnatiffany 11:22:15 11:22:15 Medications Ordered Filled Start Stop Current Ordering Indication Dosage Frequency Signature Comments Components Source Medication Medication Date Date Medication? Clinician (SIG) Name Name gabapentin Yes 600 mg = 2 M emoria 300 MG Oral 05-02 cap, PO, l Capsule 20:29: QPM, # 60 Kamini nn 00 cap, 3 Refill(s), Pharmacy: [id number], 172.72, cm, 05/02/21 15:03:00 CDT, Height, 97.273, kg, 05/02/21 15:03:00 CDT, Weight Lorazepam No See Memoria 0.5 MG Oral 04-09 Instructio l Tablet 14:55: ns, Take 1 Kamini nn [Ativan] 00 tab po 1 hour prior to MRI, may repeat q 15 min. if still anxious, # 5 tab, 0 Refill(s), Pharmacy: [facility] #[id number], 172.72, cm, 03/27/21 10:39:00 CDT, Height, 98.182, kg, 03/27/21 10:39:00 CDT, Weight Vitamin D3 Yes 0 Memoria 6-21 Refill(s) l 14:58: Cost 00 Vitamin C Yes Daily, 0 Abdiel princess 6-21 Refill(s) l 14:57: Cost 00 Aspirin Yes 0 Memoria 6-21 Refill(s) l 14:57: Cost 00 Furosemide Yes 0 Memoria 40 MG Oral 6-21 Refill(s) l Tablet 14:42: Johnson 00 {2 (480 ML No 0 Memoria Magnesium 6-21 Refill(s) l Sulfate 14:42: Johnson 0.0277 00 MEQ/ML / potassium sulfate 0.0374 MEQ/ML / sodium sulfate 0.257 MEQ/ML Oral Solution) } Pack [Suprep Bowel Prep Kit] citalopram Yes 0 Memoria 10 mg oral 6-21 Refill(s) l tablet 14:41: Cost 00 Trelegy Yes 0 Memoria Ellipta 6-21 Refill(s) l inhalation 14:41: Cost omeprazole Yes 0 Memoria 40 mg oral 6-21 Refill(s) l delayed 14:41: Cost release 00 capsule amLODIPine Yes 0 Memoria 10 mg oral 6-21 Refill(s) l tablet 14:41: Cost losartan Yes 0 Memoria 100 mg oral 6-21 Refill(s) l tablet 14:41: Cost 00 Amlodipine Amlodipine 0 Yes Jun 1 tablet Common Besylate Besylate 6-25 [facility] 00:00: evening - [facility] Citalopram Citalopram 2019-0 Yes Jun 1 tablet Common Hydrobromid Hydrobromid 6-23 [facility] 00:00: - [facility] Restoril Restoril 2019-0 Yes Jun 1 capsule Common 6-23 [facility] at bedtime Spirit 00:00: as needed - [facility] Vitamin Vitamin 2020-0 Yes Jun 2 tablet C ommon D-1000 Max D-1000 Max 5-[address] 00:00: - [facility] Aspirin 325 No Notes: (Do Memoria MG Enteric 04-16 Not Crush) l Coated 14:00: Do not Cost Tablet 00 crush or chew. Saline No [...] 0.9% 04-15 (Same as: l 18:45: BD Posiflush) Ondansetron No Notes: Abdiel princess 04-15 (Same as: l 18:45: Zofran) Acetaminoph No Notes: Do M emoria en 04-15 not exceed l 18:45: 4 gm/day. (Same as: Tylenol) Acetaminoph No Notes: Abdiel princess en 325 MG / 04-15 (Same as: l Hydrocodone 18:45: [place] Kamini nn Bitartrate 00 325/5) Do 5 MG Oral not exceed Tablet 4gm/day of acetaminop hen. Morphine No Notes: Memoria 04-15 (Same l 18:45: as:MORPhin e Sulfate) metoprolol No Notes: Memor ia tartrate 04-15 (Same as: l 18:45: Lopressor) Nitroglycer No [...] CDT, Stop date: 04/15/18 12:31:00 CDT Aspirin No Notes: Memoria 04-15 Take with l 15:28: food. Saline No Notes: Memoria Flush 0.9% 04-15 (Same as: l 14:54: BD Posiflush) Protonix 0 No Notes: Memoria 5-15 Tablet l 12:30: should not be chewed or crushed. (Same as: Protonix) Ibuprofen 0 No 600 mg, 1 Mem oria 5-14 tab, l 20:47: Route: PO, Johnson Drug form: TAB, Q6H, Dosing Weight 81.818, kg, PRN Pain Score 1-3, Start date: 12/14/17 15:47:00 CDT, Duration: 30 day, Stop date: 01/13/18 15:46:00 CDT Morphine 2017-0 No 4 mg, Memoria -14 Route: l 12:50: IVP, ONCE, Dosing Weight 81.818, kg, Priority: STAT, Start date: 12/14/17 7:50:00 CDT, Stop date: 12/14/17 7:50:00 CDT Nitroglycer 0 No Notes: Abdiel princess in 12-14 (Same [...] CDT, Stop date: 12/14/17 7:07:00 CDT Ondansetron 0 No 4 mg, Memor ia 12-14 Route: l 12:07: IVP, ONCE, Cost 00 kg, Priority: STAT, Start date: 12/14/17 7:07:00 CDT, Stop date: 12/14/17 7:07:00 CDT Saline 0 No Notes: Memoria Flush 0.9% 12-14 Same as: l 12:07: BD Posiflush Sterile Symbicort Symbicort Yes Jun 2 puffs Common [facility] Promethazin Promethazin Yes Jun 10 ml as Common e HCl e HCl [facility] needed [facility] Losartan Losartan Yes Jun 1 tablet C ommon Potassium Potassium [facility] - [facility] Immunizations Ordered Immunization Filled Immunization Date Status Commen ts Source Name Name [id number] 2021-01-08 Completed Abdiel princessl [id number] 00:00:00 Herm tiffany Vital Signs Vital Name Observation Time Observation Value Comments Source Systolic (mm Hg) 2021-05-02 19:53:00 Abdiel rial Johnson Diastolic (mm Hg) 2021-05-02 19:53:00 Mem orial Johnson Heart Rate 2021-05-02 19:53:00 [facility] Johnson Respitory Rate 2021-05-02 19:53:00 Memori al Cost Height 2021-05-02 19:53:00 172.72 cm Memorial Cost Weight 2021-05-02 19:53:00 [facility] Johnson BMI Calculated 2021-05-02 19:53:00 Memori al Cost Systolic (mm Hg) 2021-03-27 15:39:00 Abdiel rial Johnson Diastolic (mm Hg) 2021-03-27 15:39:00 Mem orial Johnson Heart Rate 2021-03-27 15:39:00 [facility] Johnson Respitory Rate 2021-03-27 15:39:00 Memori al Cost Height 2021-03-27 15:39:00 172.72 cm Memorial Cost Weight 2021-03-27 15:39:00 [facility] Cost BMI Calculated 2021-03-27 15:39:00 Memori al Johnson Systolic (mm Hg) 2021-02-13 21:08:00 Abdiel rial Cost Diastolic (mm Hg) 2021-02-13 21:08:00 Mem orial Cost Heart Rate 2021-02-13 21:08:00 [facility] Johnson Respitory Rate 2021-02-13 21:08:00 Memori al Cost Height 2021-02-13 21:08:00 175.26 cm [facility] Cost Weight 2021-02-13 21:08:00 [facility] Johnson BMI Calculated 2021-02-13 21:08:00 Memori al Cost Systolic (mm Hg) 2021-01-21 14:39:00 Abdiel rial Cost Diastolic (mm Hg) 2021-01-21 14:39:00 Mem orial Johnson Heart Rate 2021-01-21 14:39:00 Memorial Cost Respitory Rate 2021-01-21 14:39:00 Memori al Cost Height 2021-01-21 14:39:00 175.26 cm Memorial Cost Weight 2021-01-21 14:39:00 Memorial Cost BMI Calculated 2021-01-21 14:39:00 Memori al Johnson Heart Rate 2018-04-16 16:43:00 [facility] Johnson Respitory Rate 2018-04-16 16:43:00 Memori al Johnson Temperature Oral (F) 2018-04-16 16:43:00 98.1 F [facility] Cost Systolic (mm Hg) 2018-04-16 16:43:00 Abdiel rial Johnson Diastolic (mm Hg) 2018-04-16 16:43:00 Mem orial Johnson Heart Rate 2018-04-16 12:33:00 [facility] Cost Temperature Oral (F) 2018-04-16 12:33:00 98.1 F [facility] Johnson Systolic (mm Hg) 2018-04-16 12:33:00 Abdiel rial Johnson Diastolic (mm Hg) 2018-04-16 12:33:00 Mem orial Cost Respitory Rate 2018-04-16 12:33:00 Memori al Johnson Respitory Rate 2018-04-16 08:19:00 Memori al Cost Heart Rate 2018-04-16 08:19:00 Memorial Cost Temperature Oral (F) 2018-04-16 08:19:00 97.9 F [facility] Cost Systolic (mm Hg) 2018-04-16 08:19:00 Abdiel rial Cost Diastolic (mm Hg) 2018-04-16 08:19:00 Mem orial Cost Height 2018-04-15 14:08:00 175.26 cm [facility] Cost BMI Calculated 2018-04-15 14:08:00 Memori al Johnson Weight 2018-04-15 14:08:00 [facility] Cost Systolic (mm Hg) 2017-12-14 20:44:00 Abdiel rial Cost Diastolic (mm Hg) 2017-12-14 20:44:00 Mem orial Cost Temperature Oral (F) 2017-12-14 20:44:00 97.7 F [facility] Johnson Respitory Rate 2017-12-14 20:44:00 Memori al Cost Respitory Rate 2017-12-14 15:33:00 Memori al Johnson Systolic (mm Hg) 2017-12-14 15:33:00 Abdiel rial Johnson Diastolic (mm Hg) 2017-12-14 15:33:00 Mem orial Johnson BMI Calculated 2017-12-14 15:23:00 Memori al Johnson Weight 2017-12-14 15:23:00 [facility] Cost Height 2017-12-14 15:23:00 175.26 cm [facility] Johnson Respitory Rate 2017-12-14 15:03:00 Memori al Johnson Systolic (mm Hg) 2017-12-14 15:03:00 Abdiel rial Cost Diastolic (mm Hg) 2017-12-14 15:03:00 Mem orial Johnson Temperature Oral (F) 2017-12-14 14:20:00 97.6 F [facility] Cost Temperature Oral (F) 2017-12-14 12:18:00 97.8 F [facility] Johnson Height 2017-12-14 12:02:00 180.34 cm [facility] Cost BMI Calculated 2017-12-14 12:02:00 Memori al Cost Weight 2017-12-14 12:02:00 [facility] Cost Heart Rate 2017-12-14 12:02:00 [facility] Cost Procedures Procedure Date / Time Performed Performing Clinician [facility] e section Memorial Gallo n Appendectomy Memorial Cost Hysterectomy [facility] Cost Cholecystectomy [facility] Johnson Encounters Start End Encounter Admission Attending Care Care Encounter Source Date/Time Date/Time Type Type Clinicians Facility Department ID 2022-02-27 Outpatient [facility], [facility] [id number] Common 13:45:00 Jun [facility] 2022-02-18 Outpatient [facility], STLMLC [facility] [id number] Common 10:02:01 Jun [facility] 2022-01-02 Outpatient [facility], STLMLC ST[facility] [id number] Common 09:20:01 Jun [facility] 2021-12-09 [facility] [id number] Common 09:46:01 Jun [facility] 2021-11-22 Outpatient [facility], STLMLC STLMLC [id number] Common 10:08:00 Jun [facility] 2021-09-30 Outpatient [facility], STLMLC STLMLC [id number] Common 10:25:00 Jun [facility] 2021-09-27 Outpatient [facility], STLMLC STLMLC [id number] Common 08:33:02 Jun [facility] 2021-09-17 Outpatient [facility], STLMLC STLMLC [id number] Common 13:21:02 Jun [facility] 2021-09-16 Outpatient [facility], STLMLC STLMLC [id number] Common 09:25:02 Jun [facility] 2021-08-28 Outpatient [facility], STLMLC STLMLC [id number] Common 14:31:08 Jun [facility] 2021-08-28 Outpatient [facility], STLMLC STLMLC [id number] Common 13:54:39 Jun [id number] [facility] 2021-08-28 Outpatient [facility], STLMLC STLMLC [id number] Common 13:31:33 Jun [id number] [facility] 2021-08-28 Outpatient [facility], STLMLC STLMLC [id number] Common 12:48:45 Jun [id number] [facility] 2021-08-28 Outpatient [facility], STLMLC STLMLC [id number] Common 12:31:23 Jun [id number] [facility] 2021-08-28 Outpatient [facility], STLMLC STLMLC [id number] Common 12:28:23 Jun [id number] [facility] 2021-08-28 Outpatient [facility], STLMLC STLMLC [id number] Common 12:17:10 Jun [id number] [facility] 2021-08-28 Outpatient [facility], STLMLC STLMLC [id number] Common 12:15:01 Jun [id number] [facility] 2021-08-28 Outpatient [facility], STLMLC STLMLC [id number] Common 11:32:24 Jun [id number] [facility] 2021-08-28 Outpatient [facility], STLMLC STLMLC [id number] Common 11:31:30 Jun [id number] [facility] 2021-08-28 Outpatient [facility], STLMLC STLMLC [id number] Common 11:20:48 Jun [id number] [facility] 2021-08-28 Outpatient [facility], STLMLC STLMLC [id number] Common 11:16:50 Jun [id number] [facility] 2021-08-28 Outpatient [facility], STLMLC STLMLC [id number] Common 11:16:28 Jun [id number] [facility] 2021-08-28 Outpatient STLMLC STLMLC [id number] Common 11:13:33 [id number] [facility] 2022-04-02 2022-04-02 ambulatory STLMLC STLMLC [id number] Common 00:00:00 00:00:00 [facility] 2022-03-17 2022-03-17 ambulatory STLMLC STLMLC [id number] Common 00:00:00 00:00:00 [facility] 2022-03-13 2022-03-13 ambulatory STLMLC STLMLC [id number] Common 00:00:00 00:00:00 [facility] 2022-03-04 2022-03-04 ambulatory STLMLC STLMLC [id number] Common 00:00:00 00:00:00 [facility] 2022-02-27 2022-02-27 ambulatory STLMLC STLMLC [id number] Common 00:00:00 00:00:00 [facility] 2021-12-31 2021-12-31 ambulatory STLMLC STLMLC [id number] Common 00:00:00 00:00:00 [facility] 2021-12-17 2021-12-17 ambulatory STLMLC STLMLC [id number] Common 00:00:00 00:00:00 [facility] 2021-12-102021-12-10 ambulatory STLMLC STLMLC [id number] Common 00:00:00 00:00:00 [facility] 2021-12-03 2021-12-03 ambulatory STLMLC STLMLC [id number] Common 00:00:00 00:00:00 [facility] 2021-11-28 2021-11-28 ambulatory STLMLC STLMLC [id number] Common 00:00:00 00:00:00 [facility] 2021-11-26 2021-11-26 ambulatory STLMLC STLMLC [id number] Common 00:00:00 00:00:00 [facility] 2021-11-22 2021-11-22 ambulatory STLMLC STLMLC [id number] Common 00:00:00 00:00:00 [facility] 2021-10-29 2021-10-29 ambulatory STLMLC STLMLC [id number] Common 00:00:00 00:00:00 [facility] 2021-10-28 2021-10-28 ambulatory STLMLC STLMLC [id number] Common 00:00:00 00:00:00 [facility] 2021-10-22 2021-10-22 ambulatory STLMLC STLMLC [id number] Common 00:00:00 00:00:00 [facility] 2021-09-30 2021-09-30 ambulatory STLMLC STLMLC [id number] Common 00:00:00 00:00:00 [facility] 2021-09-16 2021-09-16 ambulatory STLMLC STLMLC [id number] Common 00:00:00 00:00:00 [facility] 2021-07-02 2021-07-02 Ambulatory nullFlavo MNA [id number] Memoria 15:45:00 15:45:00 Pre-Reg r Neurology 04 l Jm Ornelas 2021-07-02 2021-07-02 Outpatient LUIS Ya ALFRED [id number] 09:45:00 09:45:00 Stoney Coffey 2021-06-12 2021-06-12 Outpatient MHIE MHIE [id number] Memoria 10:45:00 10:45:00 04 arnold Ornelas 2021-05-20 2021-05-20 Outpatient STLMLC STLMLC [id number] Common 00:00:00 00:00:00 [facility] 2021-05-02 2021-05-03 Outpatient nullFlavo MNA [id number] Memoria 19:45:00 04:59:59 r Neurology 03 arnold Ornelas 2021-05-02 2021-05-02 Outpatient Felton, MHMISCHER MHMISCHER [id number] 14:45:00 23:59:59 Stoney 03 Alexx 2021-05-02 2021-05-02 Outpatient MHIE MHIE [id number] Memoria 14:45:00 14:45:00 03 arnold Ornelas 2021-05-02 2021-05-02 Outpatient STLMLC STLMLC [id number] Common 00:00:00 00:00:00 [facility] 2021-03-27 2021-03-28 Outpatient nullFlavo MNA [id number] Memoria 15:45:00 04:59:59 r Neurology 02 arnold Oneal Cost 2021-03-27 2021-03-27 Outpatient Felton, NICOMISCHER MHMISCHER [id number] 10:45:00 23:59:59 Stoney 02 Alexx 2021-03-27 2021-03-27 Outpatient MHIE MHIE [id number] Memoria 10:45:00 10:45:00 02 arnold Ornelas 2021-02-27 2021-02-27 Outpatient STLMLC STLMLC [id number] Common 00:00:00 00:00:00 [facility] 2021-02-13 2021-02-14 Outpatient nullFlavo MNA [id number] Memoria 21:00:00 04:59:59 r Neurology 01 arnold Ornelas 2021-02-13 2021-02-13 Outpatient Felton MHMISCHER MHMISCHER [id number] 16:00:00 23:59:59 Stoney 01 Alexx 2021-02-13 2021-02-13 Outpatient MHIE MHIE [id number] Memoria 16:00:00 16:00:00 01 l Johnson 2021-01-21 2021-01-22 Outpatient nullFlavo MNA [id number] Memoria 14:45:00 04:59:59 r Neurology 00 l Oconeevanessa Ornelas 2021-01-21 2021-01-21 Outpatient LUIS YaSCHER [id number] 09:45:00 23:59:59 Stoney 00 Alexx 2021-01-21 2021-01-21 Outpatient MHIE MHIE [id number] Memoria 09:45:00 09:45:00 00 l Johnson 2021-01-07 2021-01-07 Outpatient STLMLC STLMLC [id number] Common 00:00:00 00:00:00 [facility] 2020-12-13 2020-12-13 Outpatient STLMLC STLMLC [id number] Common 00:00:00 00:00:00 [facility] 2020-12-11 2020-12-11 Outpatient STLMLC STLMLC [id number] Common 00:00:00 00:00:00 [facility] 2020-12-10 2020-12-10 Outpatient STLMLC STLMLC [id number] Common 00:00:00 00:00:00 [facility] 2020-12-06 2020-12-06 Outpatient STLMLC STLMLC [id number] Common 00:00:00 00:00:00 [facility] 2020-12-06 2020-12-06 Outpatient STLMLC STLMLC [id number] Common 00:00:00 00:00:00 [facility] 2020-11-30 2020-11-30 Outpatient STLMLC STLMLC [id number] Common 00:00:00 00:00:00 [facility] 2020-11-29 2020-11-29 Outpatient STLMLC STLMLC [id number] Common 00:00:00 00:00:00 [facility] 2020-11-29 2020-11-29 Outpatient STLMLC STLMLC [id number] Common 00:00:00 00:00:00 [facility] 2020-11-22 2020-11-22 Outpatient STLMLC STLMLC [id number] Common 00:00:00 00:00:00 [facility] 2020-11-16 2020-11-16 Outpatient STLMLC STLMLC [id number] Common 00:00:00 00:00:00 [facility] 2020-11-12 2020-11-12 Outpatient STLMLC STLMLC [id number] Common 00:00:00 00:00:00 [facility] 2020-11-07 2020-11-07 Outpatient STLMLC STLMLC [id number] Common 00:00:00 00:00:00 [facility] 2020-11-06 2020-11-06 Outpatient STLMLC STLMLC [id number] Common 00:00:00 00:00:00 [facility] 2020-10-31 2020-10-31 Outpatient STLMLC STLMLC [id number] Common 00:00:00 00:00:00 [facility] 2020-09-21 2020-09-21 Outpatient STLMLC STLMLC [id number] Common 00:00:00 00:00:00 [facility] 2020-09-20 2020-09-20 Outpatient STLMLC STLMLC [id number] Common 00:00:00 00:00:00 [facility] 2020-09-11 2020-09-11 Outpatient STLMLC STLMLC [id number] Common 00:00:00 00:00:00 [facility] 2020-09-05 2020-09-05 Outpatient STLMLC STLMLC [id number] Common 00:00:00 00:00:00 [facility] 2020-09-04 2020-09-04 Outpatient STLMLC STLMLC [id number] Common 00:00:00 00:00:00 [facility] 2020-08-31 2020-08-31 Outpatient STLMLC STLMLC [id number] Common 00:00:00 00:00:00 [facility] 2020-08-29 2020-08-29 Outpatient STLMLC STLMLC [id number] Common 00:00:00 00:00:00 [facility] 2020-08-02 2020-08-02 Outpatient STLMLC STLMLC [id number] Common 00:00:00 00:00:00 [facility] 2020-06-21 2020-06-21 Outpatient STLMLC STLMLC [id number] Common 00:00:00 00:00:00 [facility] 2020-06-20 2020-06-20 Outpatient STLMLC STLMLC [id number] Common 00:00:00 00:00:00 [facility] 2020-02-23 2020-02-23 [facility] [id number] Common 10:30:00 10:30:00 [place] [address] [facility] 2020-02-02 2020-02-02 [facility] [id number] Common 16:15:00 16:15:00 [place] [address] [facility] 2020-01-26 2020-01-26 [facility] [id number] Common 09:02:00 09:02:00 [place] [address] [facility] 2020-01-25 2020-01-25 [facility] [id number] Common 09:33:00 09:33:00 [place] [address] [facility] 2020-01-24 2020-01-24 [facility] [id number] Common 15:30:00 15:30:00 [place] [address] [facility] 2020-01-23 2020-01-23 [facility] [id number] Common 08:26:00 08:26:[address] [facility] [address] [facility] 2020-01-23 2020-01-23 [facility] [id number] Common 00:14:00 00:14:[address] [facility] [address] [facility] 2020-01-06 2020-01-06 [facility] [id number] Common 08:06:00 08:06:00 [place] [address] [facility] 2020-01-05 2020-01-05 [facility] [id number] Common 10:30:00 10:30:00 [place] [address] [facility] [place] 2020-01-01 2020-01-01 [facility] [id number] Common 19:47:00 19:47:00 [place] [address] [facility] [place] 2019-12-13 2019-12-13 [facility] 30 [id number] Common 13:27:00 13:27:[address] [facility] [address] [facility] [place] 2019-12-08 2019-12-08 [facility] 30 [id number] Common 08:07:00 08:07:00 [place] [address] [facility] [place] 2019-12-07 2019-12-07 [facility] 30 [id number] Common 13:00:00 13:00:00 [place] [address] [facility] [place] 2019-11-24 2019-11-24 [facility] 30 [id number] Common 09:15:00 09:15:00 [place] [address] [facility] [place] 2019-11-04 2019-11-04 [facility] [id number] Common 09:00:00 09:00:00 [place] [address] [facility] [place] 2019-10-13 2019-10-13 [facility] 29 [id number] Common 14:30:00 14:30:00 [place] [address] [facility] [place] 2018-04-15 2018-04-16 Observatio Formerly [facility] 4731 [id number] Luiz 14:01:00 18:30:00 jorge Ornelas 00 l [facility] 2018-04-15 2018-04-16 Outpatient JON Steel [facility] [id number] 09:01:00 13:30:00 Miguel 00 [facility] 2017-12-14 2017-12-14 Observatio nullFlavo [facility] 4731 [id number] Memoria 12:00:00 22:10:00 jorge Ornelas 66 l [facility] 2017-12-14 2017-12-14 Outpatient Kelly, [facility] [id number] 07:00:00 17:10:00 Renea Thomas 67 Results Test Description Test Time Test Comments Results Result Comments Source HEMATOLOGY 2018-04-16 05:17:00 Test Item Value Reference Range Interpretation Comme nts MPV (test code = MPV) 9.0 7.4-10.4 [facility]PNLYOGYPAE0138-94-14 05:17:00 Test Item Value Reference Range Interpretation Comments Platelet (test code = Platelet) 133 133-450 [facility] HospitalMkaosqlEJXQLRLHCK7251-94-61 05:17:00 Test Item Value Reference Range Interpretation Comments MCHC (test code = MCHC) 34.7 32.0-36.0 [facility] HospitalYvjxhhfWDTSQTNYHT4848-16-94 05:17:00 Test Item Value Reference Range Interpretation Comments MCV (test code = MCV) 96.7 80.0-98.0 [facility] HospitalTgllorgORNCQPZWOZ4015-75-34 05:17:00 Test Item Value Reference Range Interpretation Comments RDW (test code = RDW) 12.9 11.5-14.5 [facility] HospitalGgekoopQUMYZHXPWV9954-27-46 05:17:00 Test Item Value Reference Range Interpretation Comments MCH (test code = MCH) 33.6 pg 27.0-31.0 [facility] HospitalNbhwdpdAFJCGFZOID9038-36-71 05:17:00 Test Item Value Reference Range Interpretation Comments WBC (test code = WBC) 3.9 3.7-10.4 [facility] HospitalFzqfmfpYCFJROBFWH7952-84-90 05:17:00 Test Item Value Reference Range Interpretation Comments RBC (test code = RBC) 4.02 4.20-5.40 [facility]bexx[facility]SELUZ5265-49-66 05:17:00 Test Item Value Reference Range Interpretation Comments VLDL (test code = VLDL) 44 1 [facility] NorthwestLltygonJJHVAU8846-57-70 05:17:00 Test Item Value Reference Range Interpretation Comments LDL (Calculated) (test code = LDL 87 (Calculated)) [facility] NorthwestIkyyvhiHQDHLS5414-20-21 05:17:00 Test Item Value Reference Range Interpretation Comments HDL (test code = HDL) 49 [facility]BNYPZZ4899-81-18 05:17:00 Test Item Value Reference Range Interpretation Comments Chol (test code = Chol) 180 [facility] HospitalGgabijmTRWIZC6289-67-65 05:17:00 Test Item Value Reference Range Interpretation Comments Trig (test code = Trig) 220 [facility] HospitalFhqnwfaNXDJQY7965-87-20 05:17:00 Test Item Value Reference Range Interpretation Comments CHD Risk (test code = CHD Risk) 3.67 1 3.90-5.80 [facility] [id number] 05:17:00 Test Item Value Reference Range Interpretation Comments Hgb A1C (test code = Hgb A1C) 5.5 [facility] [id number] 05:17:00 Test Item Value Reference Range Interpretation Comments Troponin-I (test code no gt See_Comment [Auto mated message] The = Troponin-I) system which g enerated this result transmit yariel reference range : <=0.40. The reference r chasity was not used to interpr et this result as anil l/abnormal. [facility] [id number] 05:17:00 Test Item Value Reference Range Interpretation Comments eGFR (test code = eGFR) 53 [facility] [id number] 05:17:00 Test Item Value Reference Range Interpretation Comments Chloride Lvl (test code = Chloride Lvl) 105 95-109 [facility] [id number] 05:17:00 Test Item Value Reference Range Interpretation Comments CO2 (test code = CO2) 31 24-32 [facility] [id number] 05:17:00 Test Item Value Reference Range Interpretation Comments Potassium Lvl (test code = Potassium 4.5 3.5-5.1 Lvl) [facility] [id number] 05:17:00 Test Item Value Reference Range Interpretation Comments Sodium Lvl (test code = Sodium Lvl) 142 135-145 [facility] [id number] 05:17:00 Test Item Value Reference Range Interpretation Comments BUN (test code = BUN) 15 7-22 [facility] [id number] 05:17:00 Test Item Value Reference Range Interpretation Comments Creatinine Lvl (test code = Creatinine 1.15 0.50-1.40 Lvl) [facility]2018-09-14 05:17:00 Test Item Value Reference Range Interpretation Comments Calcium Lvl (test code = Calcium Lvl) 8.6 8.5-10.5 [facility]2018-09-14 05:17:00 Test Item Value Reference Range Interpretation Comments AGAP (test code = AGAP) 10.5 10.0-20.0 [facility]2018-09-14 05:17:00 Test Item Value Reference Range Interpretation Comments Glucose Lvl (test code = Glucose Lvl) 100 70-99 [facility] HospitalCxieizxJZEXOOWCPR8925-58-99 05:17:00 Test Item Value Reference Range Interpretation Comments Hct (test code = Hct) 38.9 36.0-48.0 [facility] HospitalCnuwkjpKGRJFASVGU4623-13-11 05:17:00 Test Item Value Reference Range Interpretation Comments Hgb (test code = Hgb) 13.5 12.0-16.0 [facility] [id number] 23:18:00 Test Item Value Reference Range Interpretation Comments Troponin-I (test code no gt See_Comment [Auto mated message] The = Troponin-I) system which g enerated this result transmit yariel reference range : <=0.40. The reference r chasity was not used to interpr et this result as anil l/abnormal. [facility]2018-09-13 18:29:00 Test Item Value Reference Range Interpretation Comments Lactic Acid Lvl (test code = Lactic 0.7 0.5-2.2 Acid Lvl) [facility]2018-09-13 18:29:00 Test Item Value Reference Range Interpretation Comments Lipase Lvl (test code = Lipase Lvl) 87 73-393 [facility] [id number] 17:49:00 Test Item Value Reference Range Interpretation Comments Troponin-I (test code no gt See_Comment [Auto mated message] The = Troponin-I) system which g enerated this result transmit yariel reference range : <=0.40. The reference r chasity was not used to interpr et this result as anil l/abnormal. [facility] [id number] 15:16:00 Test Item Value Reference Range Interpretation Comments Total CK (test code = Total CK) 109 12-191 [facility] HospitalannCARDIAC [id number] 15:16:00 Test Item Value Reference Range Interpretation Comments proBNP (test code = 64 See_Comment [Automa yairel message] The proBNP) system which ge nerated this result tra nsmitted reference range : <=125. The reference r chasity was not used to int erpret this result as anil l/abnormal. [facility] [id number] 15:16:00 Test Item Value Reference Range Interpretation Comments A/G Ratio (test code = A/G Ratio) 1.2 1 0.7-1.6 [facility] HospitalTeevoxCOUNT INCLUDES THE [facility] [id number] 15:16:00 Test Item Value Reference Range Interpretation Comments Globulin (test code = Globulin) 3.3 2.7-4.2 [facility]2018-09-13 15:16:00 Test Item Value Reference Range Interpretation Comments B/C Ratio (test code = B/C Ratio) 16 1 6-25 [facility] [id number] 15:16:00 Test Item Value Reference Range Interpretation Comments AGAP (test code = AGAP) 12.0 10.0-20.0 [facility] [id number] 15:16:00 Test Item Value Reference Range Interpretation Comments eGFR (test code = eGFR) 83 [facility]2018-09-13 15:16:00 Test Item Value Reference Range Interpretation Comments Bili Total (test code = Bili Total) 0.5 0.2-1.3 [facility] [id number] 15:16:00 Test Item Value Reference Range Interpretation Comments Alk Phos (test code = Alk Phos) 82 39-136 [facility] HospitalTeevoxCOUNT INCLUDES THE [facility]S [id number] 15:16:00 Test Item Value Reference Range Interpretation Comments ALT (test code = ALT) 28 See_Comment [Auto mated message] The system which ge nerated this result transmit yariel reference range : <=65. The reference range was not used to interpr et this result as anil l/abnormal. [facility] [id number] 15:16:00 Test Item Value Reference Range Interpretation Comments AST (test code = AST) 13 See_Comment [Auto mated message] The system which ge nerated this result transmit yariel reference range : <=37. The reference range was not used to interpr et this result as anil l/abnormal. [facility]2018-09-13 15:16:00 Test Item Value Reference Range Interpretation Comments Total Protein (test code = Total 7.1 6.4-8.4 Protein) [facility]2018-09-13 15:16:00 Test Item Value Reference Range Interpretation Comments Calcium Lvl (test code = Calcium Lvl) 9.6 8.5-10.5 [facility]2018-09-13 15:16:00 Test Item Value Reference Range Interpretation Comments CO2 (test code = CO2) 28 24-32 [facility]2018-09-13 15:16:00 Test Item Value Reference Range Interpretation Comments Potassium Lvl (test code = Potassium 4.0 3.5-5.1 Lvl) [facility]2018-09-13 15:16:00 Test Item Value Reference Range Interpretation Comments Chloride Lvl (test code = Chloride Lvl) 110 95-109 [facility]2018-09-13 15:16:00 Test Item Value Reference Range Interpretation Comments Sodium Lvl (test code = Sodium Lvl) 146 135-145 [facility]2018-09-13 15:16:00 Test Item Value Reference Range Interpretation Comments Creatinine Lvl (test code = Creatinine 0.79 0.50-1.40 Lvl) [facility]2018-09-13 15:16:00 Test Item Value Reference Range Interpretation Comments BUN (test code = BUN) 13 7-22 [facility]2018-09-13 15:16:00 Test Item Value Reference Range Interpretation Comments Glucose Lvl (test code = Glucose Lvl) 89 70-99 [facility]2018-09-13 15:16:00 Test Item Value Reference Range Interpretation Comments Albumin Lvl (test code = Albumin Lvl) 3.8 3.5-5.0 [facility]2018-09-13 15:16:00 Test Item Value Reference Range Interpretation Comments Magnesium Lvl (test code = Magnesium 2.3 1.8-2.4 Lvl) [facility]2018-09-13 15:16:00 Test Item Value Reference Range Interpretation Comments Phosphorus (test code = Phosphorus) 3.7 2.5-4.5 [facility]TelrwzeQVFBNOQLAZHDZ9259-35-19 15:16:00 Test Item Value Reference Range Interpretation Comments S Preg (test code = S Negative *NA*(04/15/18 Preg) 10:16 AM) [facility] HospitalZwiomkeVDNFGIJHGB3883-71-72 15:16:00 Test Item Value Reference Range Interpretation Comments WBC (test code = WBC) 4.9 3.7-10.4 [facility] HospitalMykwfxnFOEQBNGHEZ2480-86-50 15:16:00 Test Item Value Reference Range Interpretation Comments Hgb (test code = Hgb) 15.2 12.0-16.0 [facility] HospitalHcyhdudSJINWOGCZZ9892-56-43 15:16:00 Test Item Value Reference Range Interpretation Comments RBC (test code = RBC) 4.61 4.20-5.40 [facility] HospitalYqaxifmSMDZOZSLGY2043-53-86 15:16:00 Test Item Value Reference Range Interpretation Comments MCHC (test code = MCHC) 33.6 32.0-36.0 [facility] HospitalXfmjpnqGLTAKCGHNY4317-38-25 15:16:00 Test Item Value Reference Range Interpretation Comments Hct (test code = Hct) 45.3 36.0-48.0 [facility] HospitalFlhhdftIBCWYBPEGC4008-01-81 15:16:00 Test Item Value Reference Range Interpretation Comments MCV (test code = MCV) 98.2 80.0-98.0 [facility] HospitalDuzovpnMDVIGDUEOY2373-86-27 15:16:00 Test Item Value Reference Range Interpretation Comments MCH (test code = MCH) 33.0 pg 27.0-31.0 [facility] HospitalTvrpltwGFGGSUDORI8037-71-93 15:16:00 Test Item Value Reference Range Interpretation Comments MPV (test code = MPV) 8.8 7.4-10.4 [facility] HospitalGnlxvtmGTWRARDWTE9112-28-51 15:16:00 Test Item Value Reference Range Interpretation Comments RDW (test code = RDW) 12.6 11.5-14.5 [facility] HospitalVepxrgkZUBAEVKYDO5729-17-59 15:16:00 Test Item Value Reference Range Interpretation Comments Platelet (test code = Platelet) 163 133-450 [facility] HospitalOoleatkGWPPPVGQRS3185-96-06 15:16:00 Test Item Value Reference Range Interpretation Comments Lymphocytes (test code = Lymphocytes) 39.1 20.0-40.0 [facility] HospitalKrhxevbOEKNHJPAEK9238-63-56 15:16:00 Test Item Value Reference Range Interpretation Comments Eosinophils (test code = 2.5 See_Comment [A utomated message] The Eosinophils) system which ge nerated this result tra nsmitted reference range : <=4.0. The reference r chasity was not used to int erpret this result as normal/abnormal . [facility] HospitalCludkyfVCXMEOHHZN4335-29-77 15:16:00 Test Item Value Reference Range Interpretation Comments Segs (test code = Segs) 50.6 45.0-75.0 [facility] HospitalNqlqpenCJTXGLIFXG0821-21-32 15:16:00 Test Item Value Reference Range Interpretation Comments Lymphocytes # (test code = Lymphocytes 1.9 1.0-5.5 #) [facility] HospitalUuscabpMHYZPMOMOL1144-29-68 15:16:00 Test Item Value Reference Range Interpretation Comments Neutrophils # (test code = Neutrophils 2.5 1.5-8.1 #) [facility] HospitalKepgjxoBJNVSOJTTL1835-39-11 15:16:00 Test Item Value Reference Range Interpretation Comments Monocytes (test code = Monocytes) 7.1 2.0-12.0 [facility] HospitalDdchyfeERIFBTUNRG0205-23-98 15:16:00 Test Item Value Reference Range Interpretation Comments Basophils (test code = 0.7 See_Comment [Aut omated message] The Basophils) system which ge nerated this result tra nsmitted reference range : <=1.0. The reference r chasity was not used to int erpret this result as normal/abnormal . [facility] HospitalYsgakifBHZLFRTWTJ3323-59-52 15:16:00 Test Item Value Reference Range Interpretation Comments Eosinophils # (test code 0.1 See_Comment [A utomated message] The = Eosinophils #) system whic h generated this result tra nsmitted reference range : <=0.5. The reference r chasity was not used to int erpret this result as normal/abnormal . [facility] HospitalPbzjrhbXARXWMFVAR6890-22-89 15:16:00 Test Item Value Reference Range Interpretation Comments Monocytes # (test code 0.3 See_Comment [Aut omated message] The = Monocytes #) system which generated this result tra nsmitted reference range : <=0.8. The reference r chasity was not used to int erpret this result as normal/abnormal . [facility]2018-05-14 18:17:00 Test Item Value Reference Range Interpretation Comments Troponin-I (test code no gt See_Comment [Auto mated message] The = Troponin-I) system which g enerated this result transmit yariel reference range : <=0.40. The reference r chasity was not used to interpr et this result as anil l/abnormal. [facility] [place]2018-05-14 12:22:00 Test Item Value Reference Range Interpretation Comments CK MB Index (test 2.7 1 See_Comment [Automate d message] The code = CK MB Index) system w [facility] generated this result transmit yariel reference range : <=2.5. The reference range was not used to interpr et this result as anil l/abnormal. [facility]2018-05-14 12:22:00 Test Item Value Reference Range Interpretation Comments Troponin-I (test code no gt See_Comment [Auto mated message] The = Troponin-I) system which g enerated this result transmit yariel reference range : <=0.40. The reference r chasity was not used to interpr et this result as anil l/abnormal. [facility]2018-05-14 12:22:00 Test Item Value Reference Range Interpretation Comments Total CK (test code = Total CK) 119 12-191 [facility] [place]2018-05-14 12:22:00 Test Item Value Reference Range Interpretation Comments CK MB (test code = CK MB) 3.2 0.5-3.6 [facility]2018-05-14 12:22:00 Test Item Value Reference Range Interpretation Comments eGFR (test code = eGFR) 87 [facility]2018-05-14 12:22:00 Test Item Value Reference Range Interpretation Comments Globulin (test code = Globulin) 3.1 2.7-4.2 [employer]2018-05-14 12:22:00 Test Item Value Reference Range Interpretation Comments Alk Phos (test code = Alk Phos) 78 39-136 [facility]2018-05-14 12:22:00 Test Item Value Reference Range Interpretation Comments AST (test code = AST) 12 See_Comment [Auto mated message] The system which ge nerated this result transmit yariel reference range : <=37. The reference range was not used to interpr et this result as anil l/abnormal. [facility]2018-05-14 12:22:00 Test Item Value Reference Range Interpretation Comments ALT (test code = ALT) 24 See_Comment [Auto mated message] The system which ge nerated this result transmit yariel reference range : <=65. The reference range was not used to interpr et this result as anil l/abnormal. [facility]2018-05-14 12:22:00 Test Item Value Reference Range Interpretation Comments Albumin Lvl (test code = Albumin Lvl) 3.2 3.5-5.0 [facility]2018-05-14 12:22:00 Test Item Value Reference Range Interpretation Comments Total Protein (test code = Total 6.3 6.4-8.4 Protein) [facility]2018-05-14 12:22:00 Test Item Value Reference Range Interpretation Comments CO2 (test code = CO2) 23 24-32 [facility]2018-05-14 12:22:00 Test Item Value Reference Range Interpretation Comments Calcium Lvl (test code = Calcium Lvl) 8.9 8.5-10.5 [facility]2018-05-14 12:22:00 Test Item Value Reference Range Interpretation Comments A/G Ratio (test code = A/G Ratio) 1.0 1 0.7-1.6 [facility]2018-05-14 12:22:00 Test Item Value Reference Range Interpretation Comments AGAP (test code = AGAP) 14.1 10.0-20.0 [facility]2018-05-14 12:22:00 Test Item Value Reference Range Interpretation Comments B/C Ratio (test code = B/C Ratio) 22 1 6-25 [place] 847428-05-14 12:22:00 Test Item Value Reference Range Interpretation Comments Bili Total (test code = Bili Total) 0.2 0.2-1.3 [facility]2018-05-14 12:22:00 Test Item Value Reference Range Interpretation Comments Sodium Lvl (test code = Sodium Lvl) 143 135-145 [facility]2018-05-14 12:22:00 Test Item Value Reference Range Interpretation Comments Chloride Lvl (test code = Chloride Lvl) 110 95-109 [facility]2018-05-14 12:22:00 Test Item Value Reference Range Interpretation Comments Potassium Lvl (test code = Potassium 4.1 3.5-5.1 Lvl) [facility]2018-05-14 12:22:00 Test Item Value Reference Range Interpretation Comments Creatinine Lvl (test code = Creatinine 0.76 0.50-1.40 Lvl) [facility]2018-05-14 12:22:00 Test Item Value Reference Range Interpretation Comments BUN (test code = BUN) 17 7-22 [facility]2018-05-14 12:22:00 Test Item Value Reference Range Interpretation Comments Glucose Lvl (test code = Glucose Lvl) 101 70-99 [facility] HospitalLydnmbjUOJPVOKXGC8713-30-16 12:22:00 Test Item Value Reference Range Interpretation Comments Monocytes # (test code 0.4 See_Comment [Aut omated message] The = Monocytes #) system which generated this result tra nsmitted reference range : <=0.8. The reference r chasity was not used to int erpret this result as normal/abnormal . [facility] HospitalCftvodxKSWURXTSIJ3042-07-05 12:22:00 Test Item Value Reference Range Interpretation Comments Eosinophils # (test code 0.1 See_Comment [A utomated message] The = Eosinophils #) system whic h generated this result tra nsmitted reference range : <=0.5. The reference r chasity was not used to int erpret this result as normal/abnormal . [facility] HospitalKwtgtkeRWYHNFPIJI6276-77-24 12:22:00 Test Item Value Reference Range Interpretation Comments Segs (test code = Segs) 48.7 45.0-75.0 [facility] HospitalXrwpspmUXWJELHVXR3408-71-67 12:22:00 Test Item Value Reference Range Interpretation Comments Lymphocytes (test code = Lymphocytes) 39.8 20.0-40.0 [facility] HospitalRibhijcSWJGWHFXRF7805-43-54 12:22:00 Test Item Value Reference Range Interpretation Comments Monocytes (test code = Monocytes) 8.3 2.0-12.0 [facility] HospitalZzuipmwQQMMJHRLQH8873-56-94 12:22:00 Test Item Value Reference Range Interpretation Comments Eosinophils (test code = 2.7 See_Comment [A utomated message] The Eosinophils) system which ge nerated this result tra nsmitted reference range : <=4.0. The reference r chasity was not used to int erpret this result as normal/abnormal . [facility] HospitalWvqnqtmLHDATHFAFW8433-18-15 12:22:00 Test Item Value Reference Range Interpretation Comments Lymphocytes # (test code = Lymphocytes 2.0 1.0-5.5 #) [facility] HospitalDksflawAHCRYNHAAU7787-78-16 12:22:00 Test Item Value Reference Range Interpretation Comments Basophils (test code = 0.5 See_Comment [Aut omated message] The Basophils) system which ge nerated this result tra nsmitted reference range : <=1.0. The reference r chasity was not used to int erpret this result as normal/abnormal . [facility] HospitalHxhebmxFGAZHBABXY1429-79-46 12:22:00 Test Item Value Reference Range Interpretation Comments Segs-Bands # (test code = Segs-Bands #) 2.5 1.5-8.1 [facility] HospitalWwyzteuLAGUOOWEHV7675-61-66 12:22:00 Test Item Value Reference Range Interpretation Comments MCHC (test code = MCHC) 33.5 32.0-36.0 [facility] HospitalUivvbuhISPAJVNSQN6072-88-47 12:22:00 Test Item Value Reference Range Interpretation Comments MPV (test code = MPV) 9.2 7.4-10.4 [facility] HospitalUtaveoyIQUICGWYLL7899-63-17 12:22:00 Test Item Value Reference Range Interpretation Comments Platelet (test code = Platelet) 133 133-450 [facility] HospitalZptyylhOUYILVHBQE4024-99-05 12:22:00 Test Item Value Reference Range Interpretation Comments RDW (test code = RDW) 13.0 11.5-14.5 [facility] HospitalWzaqssaTKCDZUOUQC7936-54-32 12:22:00 Test Item Value Reference Range Interpretation Comments MCH (test code = MCH) 32.8 pg 27.0-31.0 [facility] HospitalNlrrsxuQYKADGQQBS2989-63-57 12:22:00 Test Item Value Reference Range Interpretation Comments Hct (test code = Hct) 43.1 36.0-48.0 [facility] HospitalNsgpsyeMMRCXEESML5967-70-04 12:22:00 Test Item Value Reference Range Interpretation Comments Hgb (test code = Hgb) 14.4 12.0-16.0 [facility] HospitalUfkynhrCKMMHOSPWF3431-09-99 12:22:00 Test Item Value Reference Range Interpretation Comments MCV (test code = MCV) 97.9 80.0-98.0 [facility] HospitalKnlfwrhPMMIATREAA8141-57-82 12:22:00 Test Item Value Reference Range Interpretation Comments RBC (test code = RBC) 4.40 4.20-5.40 [id number] 12:22:00 Test Item Value Reference Range Interpretation Comments WBC (test code = WBC) 5.1 3.7-10.4 [facility]
--- NOTE | 2022-04-10 10:44 | RAD REPORT ---
EXAM DESCRIPTION: RAD - Chest Single View - 04/10/2022 10:30 am CLINICAL HISTORY: DYSPNEA COMPARISON: Chest Single View dated 01/21/2020; Chest Single View dated 10/18/2019; Chest Pa And Lat ( 2 Views) dated 10/16/2019 FINDINGS: Lines: None. Lungs: No evidence of edema or pneumonia. Pleural: No significant pleural effusions or pneumothorax. Cardiac: The heart size is within normal limits. Mediastinum: Within normal limits. Bones: No acute fractures. Other: None IMPRESSION: No acute cardiopulmonary disease.
[2022-04-10] MEDS ORDERED: METHYLPREDNISOLONE 125 MG INJ ONE (10:45)
[2022-04-10] MEDS ORDERED: ALBUTEROL 2.5 MG/3 ML NEB SOL ONE (10:45)
[2022-04-10] MEDS ORDERED: Magnesium Sulfate 2gm IVPB 2 G/50 ML BAG IV ONE (10:45)
[2022-04-10] MEDS ORDERED: IPRATROPIUM BROM 0.5MG/2.5ML ONE (10:45)
[2022-04-10 10:56] LABS: Absolute Lymphocytes (CBC) 0.8 K/uL (0.7-4.9); Hematocrit 40.9 % (36.0-45.0); Lymphocytes % 16.8 % (15.3-44.8); MCV 97.3 fL (80-100); MPV 8.3 fL (7.6-11.3); RBC Red Blood Cell Count 4.21 M/uL (3.86-4.86)
[2022-04-10 11:21] LABS: Magnesium 1.9 mg/dL (1.8-2.4); Troponin High Sensitivity 5.3 pg/mL (<58.9)
--- NOTE | 2022-04-10 11:32 | EDPHYS ---
Physician Documentation [facility] Name: Rhona Ladd Age: 61 yrs Sex: Female : 1960 Arrival Date: 04/10/2022 Time: 09:54 Bed 7 Private MD: [facility] ED Physician Umer Priest HPI: 04/10 10:00 This 61 yrs old Female presents to ER via Ambulatory with complaints of Breathing jh7 Difficulty, Wheezing > 1 Year. 10:00 Onset: The symptoms/episode began/occurred 5 day(s) ago. Associated signs and symptoms: jh7 Pertinent positives: shortness of breath, wheezing, Chest tightness, Pertinent negatives: abdominal pain, chest pain, fever, vomiting. Patient reports progressive chest tightness and shortness of breath since Thursday. Denies any chest pain.. Historical: - Allergies: 10:02 Bactrim; aa5 10:02 Morphine; aa5 10:02 Soma; aa5 - PMHx: 10:02 Asthma; Hypertension; aa5 - PSHx: 10:02 Appendectomy; section; Cholecystectomy; aa5 - Immunization history:: Adult Immunizations up to date. - Social history:: Smoking status: Patient/guardian denies using tobacco. ROS: 10:00 Constitutional: Negative for fever, chills, and weight loss, Eyes: Negative for injury, jh7 pain, redness, and discharge, ENT: Negative for injury, pain, and discharge, Abdomen/GI: Negative for abdominal pain, nausea, vomiting, diarrhea, and constipation, Back: Negative for injury and pain, MS/Extremity: Negative for injury and deformity, Skin: Negative for injury, rash, and discoloration, Neuro: Negative for headache, weakness, numbness, tingling, and seizure. 10:00 Cardiovascular: Negative for chest pain. 10:00 Respiratory: Positive for shortness of breath, wheezing, Negative for cough. 10:00 All other systems are negative. Exam: 10:00 Constitutional: This is a well developed, well nourished patient who is awake, alert, jh7 and in no acute distress. Head/Face: Normocephalic, atraumatic. Eyes: Pupils equal round and reactive to light, extra-ocular motions intact. Lids and lashes normal. Conjunctiva and sclera are non-icteric and not injected. Cornea within normal limits. Periorbital areas with no swelling, redness, or edema. Cardiovascular: Regular rate and rhythm with a normal S1 and S2. No gallops, murmurs, or rubs. Normal PMI, no JVD. No pulse deficits. Abdomen/GI: Soft, non-tender, with normal bowel sounds. No distension or tympany. No guarding or rebound. No evidence of tenderness throughout. Back: No spinal tenderness. No costovertebral tenderness. Full range of motion. Skin: Warm, dry with normal turgor. Normal color with no rashes, no lesions, and no evidence of cellulitis. MS/ Extremity: Pulses equal, no cyanosis. Neurovascular intact. Full, normal range of motion. Neuro: Awake and alert, GCS 15, oriented to person, place, time, and situation. Motor strength 5/5 in all extremities. Sensory grossly intact. Normal gait. 10:00 Respiratory: moderate respiratory distress is noted, Respirations: labored breathing, that is moderate, tachypnea, that is mild, Breath sounds: wheezing: inspiratory expiratory is heard diffusely. Vital Signs: 10:03 BP 168 / 91; Pulse 84; Resp 22; Pulse Ox 93% on R/A; Weight 90.72 kg; Height 5 ft. 8 em1 in. (172.72 cm); 10:03 Temp 98.2(TE); Weight 90.72 kg (R); Height 5 ft. 8 in. (172.72 cm); aa5 11:00 BP 150 / 87; Pulse 71; Resp 24 S; Pulse Ox 100% on R/A; aa5 12:00 BP 147 / 51; Pulse 92; Resp 20 S; Pulse Ox 99% on R/A; aa5 10:03 Body Mass Index 30.41 (90.72 kg, 172.72 cm) em1 MDM: 10:02 Patient medically screened. [facility] 11:30 Differential diagnosis: viral Infection, bacterial infection, bronchitis, pneumonia 7 Asthma exacerbation. Data reviewed: vital signs, nurses notes, lab test result(s), EKG, radiologic studies. Data interpreted: Pulse oximetry: is 99 %. Interpretation: normal. Counseling: I had a detailed discussion with the patient and/or guardian regarding: the historical points, exam findings, and any diagnostic results supporting the discharge/admit diagnosis, to return to the emergency department if symptoms worsen or persist or if there are any questions or concerns that arise at home. Response to treatment: the patient's symptoms have resolved after treatment, the patient is not short of breath. 04/10 10:03 Order name: Basic Metabolic Panel; Complete Time: 11:25 [facility] 04/10 10:03 Order name: CBC with Diff; Complete Time: 10:58 [facility] 04/10 10:03 Order name: Magnesium; Complete Time: : [facility] 04/10 10:03 Order name: NT PRO-BNP; Complete Time: : [facility] 04/10 10:03 Order name: Troponin HS; Complete Time: : [facility] 04/10 10:28 Order name: COVID-19 SARS RT PCR (Document "Date of Onset" if Symptomatic); Complete [facility] Time: 04/10 10:03 Order name: XRAY Chest (1 view); Complete Time: 10:46 [facility] 04/10 10:03 Order name: EKG; Complete Time: 10:04 [facility] 04/10 10:03 Order name: Cardiac monitoring; Complete Time: 10:46 [facility] 04/10 10:03 Order name: EKG - Nurse/Tech; Complete Time: 10: [facility] 04/10 10:03 Order name: IV Saline Lock; Complete Time: 10:46 [facility] 04/10 10:03 Order name: Labs collected and sent; Complete Time: 10:46 [facility] 04/10 10:03 Order name: O2 Per Protocol; Complete Time: 10:46 [facility] 04/10 10:03 Order name: O2 Sat Monitoring; Complete Time: 10:46 [facility] 04/10 10:40 Order name: Labs - recollect needed: recollect all tubes; Complete Time: 10:46 bd EC:14 Rate is 73 beats/min. Rhythm is regular. QRS [place] is Normal. [place] interval is normal at [facility] 146 msec. QRS interval is normal at 94 msec. QT interval is normal at 394 msec. No Q waves. T waves are Normal. No ST changes noted. Clinical impression: Normal ECG. Administered Medications: 10:30 Drug: SOLU-Medrol (methylPrednisoLONE) 125 mg Route: IVP; Site: left wrist; aa5 10:45 Follow up: Response: No adverse reaction aa5 10:30 Drug: Magnesium Sulfate 2 grams Route: IVPB; Infused Over: 2 hrs; Site: left wrist; aa5 11:30 Follow up: IV Status: Completed infusion aa5 10:30 Drug: DuoNeb (albuterol 2.5 mg, ipratropium 0.5 mg) (3:1) (2.5 mg - 0.5 mg) 3 ml Route: aa5 Nebulizer; 10:45 Follow up: Response: No adverse reaction aa5 11:58 Not Given (Duplicate Order): DuoNeb (albuterol 2.5 mg, ipratropium 0.5 mg) (3:1) (2.5 aa5 mg - 0.5 mg) 3 ml Nebulizer once Disposition: 16:42 Co-signature as Attending Physician, Umer Priest DO I agree with the assessment and ms3 plan of care. Disposition Summary: 04/10/22 11:31 Discharge Ordered Location: Home [facility] Problem: chronic [facility] Symptoms: have improved [facility] Condition: Stable [facility] Diagnosis - Unspecified asthma with (acute) exacerbation [facility] Followup: [facility] - With: Private Physician - When: 2 - 3 days - Reason: Recheck today's complaints Discharge Instructions: - Discharge Summary Sheet [facility] - Asthma, Adult [facility] - Asthma Attack [facility] Forms: - Medication Reconciliation Form [facility] - Thank You Letter [facility] Prescriptions: - ProAir HFA 90 mcg/actuation Inhalation HFA aerosol inhaler - inhale 2 puff by INHALATION route every 4-6 hours As needed; 1 Inhaler; [facility] Refills: 0, Product Selection Permitted - Medrol (Romeo) 4 mg Oral Tablets, Dose Pack - take 1 tablet by ORAL route as directed - follow package instructions; 1 [facility] packet; Refills: 0, Product Selection Permitted Signatures: Dispatcher [employer] Margarita Dunaway Audri, TESSA RN aa5 Umer Priest DO DO ms3 Layla Jenkins FNP TREATMENT SPECIALIST [facility]
--- NOTE | 2022-04-10 11:32 | ER ---
[facility] Name: Rhona Ladd Age: 61 yrs Sex: Female : 1960 Arrival Date: 04/10/2022 Time: 09:54 Bed 7 Private MD: Prashant Villa Diagnosis: Unspecified asthma with (acute) exacerbation Presentation: 04/10 10:00 Chief complaint: Patient states: wheezing, difficulty breathing, and productive cough aa5 with yellow sputum since Thursday. C/O rib pain with cough. 10:00 Coronavirus screen: cough unrelated to allergies. Ebola Screen: Patient denies travel aa5 to an Ebola-affected area in the 21 days before illness onset. Initial Sepsis Screen: Does the patient meet any 2 criteria? RR > 20 per min. Does the patient have a suspected source of infection? Yes: Productive cough/pneumonia. Risk Assessment: Do you want to hurt yourself or someone else? Patient reports no desire to harm self or others. Onset of symptoms was April 2022. 10:00 Acuity: CHON 3 aa5 10:00 Method Of Arrival: Ambulatory aa5 Historical: - Allergies: 10:02 Bactrim; aa5 10:02 Morphine; aa5 10:02 Soma; aa5 - PMHx: 10:02 Asthma; Hypertension; aa5 - PSHx: 10:02 Appendectomy; section; Cholecystectomy; aa5 - Immunization history:: Adult Immunizations up to date. - Social history:: Smoking status: Patient/guardian denies using tobacco. Screenin:26 Abuse screen: Denies threats or abuse. Nutritional screening: No deficits noted. aa5 Tuberculosis screening: No symptoms or risk factors identified. Fall Risk IV access (20 points). Total Mckenzie Fall Scale indicates No Risk (0-24 pts). Assessment: 10:00 General: Appears uncomfortable, Behavior is calm, cooperative. Pain: Complains of pain aa5 in ribs Pain does not radiate. Pain currently is 6 out of 10 on a pain scale. Quality of pain is described as aching, Pain began 2-3 days ago. Is intermittent, Aggravated by only with cough. Neuro: Level of Consciousness is awake, alert, obeys commands, Oriented to person, place, time, situation. Cardiovascular: Heart tones S1 S2 present Rhythm is regular. Respiratory: Reports shortness of breath cough that is productive, Airway is patent Respiratory effort is labored, Respiratory pattern is tachypnea Breath sounds with wheezes bilaterally. GI: No signs and/or symptoms were reported involving the gastrointestinal system. : No signs and/or symptoms were reported regarding the genitourinary system. EENT: No signs and/or symptoms were reported regarding the EENT system. Derm: Skin is pink, warm \T\ dry. Musculoskeletal: Range of motion: intact in all extremities. 10:30 Reassessment: No changes from previously documented assessment. Patient and/or family aa5 updated on plan of care and expected duration. Pain level reassessed. 11:00 Reassessment: Patient is alert, oriented x 3, equal unlabored respirations, skin aa5 warm/dry/pink. wheezing has improved. . 12:20 Reassessment: Patient is alert, oriented x 3, equal unlabored respirations, skin aa5 warm/dry/pink. Patient states feeling better. Patient states symptoms have improved. Vital Signs: 10:03 BP 168 / 91; Pulse 84; Resp 22; Pulse Ox 93% on R/A; Weight 90.72 kg; Height 5 ft. 8 em1 in. (172.72 cm); 10:03 Temp 98.2(TE); Weight 90.72 kg (R); Height 5 ft. 8 in. (172.72 cm); aa5 11:00 BP 150 / 87; Pulse 71; Resp 24 S; Pulse Ox 100% on R/A; aa5 12:00 BP 147 / 51; Pulse 92; Resp 20 S; Pulse Ox 99% on R/A; aa5 10:03 Body Mass Index 30.41 (90.72 kg, 172.72 cm) em1 ED Course: 09:54 Patient arrived in ED. am2 09:54 Prashant Villa DO is Private Physician. am2 09:57 [facility] jh7 09:57 Umer Priest DO is Attending Physician. jh7 10:02 Fannie Lagos, TESSA is Primary Nurse. aa5 10:02 Arm band placed on Patient placed in an exam room, on a stretcher. aa5 10:02 Patient has correct armband on for positive identification. Bed in low position. Call aa5 light in reach. Side rails up X2. Client placed on continuous cardiac and pulse oximetry monitoring. NIBP monitoring applied. 10:26 Lab(s) recollected, by me, sent to lab. Inserted saline lock: 20 gauge in left wrist, aa5 using aseptic technique. Blood collected. 10:30 XRAY Chest (1 view) In Process Unspecified. EDMS 10:53 Triage completed. aa5 12:20 No provider procedures requiring assistance completed. IV discontinued, intact, aa5 bleeding controlled, No redness/swelling at site. Pressure dressing applied. Patient maintains SpO2 saturation greater than 95% on room air. Administered Medications: 10:30 Drug: SOLU-Medrol (methylPrednisoLONE) 125 mg Route: IVP; Site: left wrist; aa5 10:45 Follow up: Response: No adverse reaction aa5 10:30 Drug: Magnesium Sulfate 2 grams Route: IVPB; Infused Over: 2 hrs; Site: left wrist; aa5 11:30 Follow up: IV Status: Completed infusion aa5 10:30 Drug: DuoNeb (albuterol 2.5 mg, ipratropium 0.5 mg) (3:1) (2.5 mg - 0.5 mg) 3 ml Route: aa5 Nebulizer; 10:45 Follow up: Response: No adverse reaction aa5 11:58 Not Given (Duplicate Order): DuoNeb (albuterol 2.5 mg, ipratropium 0.5 mg) (3:1) (2.5 aa5 mg - 0.5 mg) 3 ml Nebulizer once Medication: 12:20 VIS not applicable for this client. aa5 Outcome: 11:31 Discharge ordered by . sepideh 12:20 Discharged to home ambulatory. aa5 12:20 Condition: improved 12:20 Discharge instructions given to patient, Instructed on discharge instructions, follow up and referral plans. medication usage, Demonstrated understanding of instructions, follow-up care, medications, Prescriptions given X 2. 12:25 Patient left the ED. iw Signatures: Dispatcher [employer] EDMS Jessica Justice, RN Dusty Rice em1 Fannie Lagos RN RN aa5 Danii Macias am2 Layla Jenkins, CANCELING MACHINE OPERATOR CANCELING MACHINE OPERATOR 7
[2022-04-10 12:55] VITALS: BP 168/91; TEMP 98.2; O2SAT 93
--- NOTE | 2022-04-11 13:58 | EKG ---
Test Date: 2022-04-10 Test Time: 10:05:32 Taping Machine Operator: SHADI MEASUREMENT RESULTS: Intervals: Rate: 73 [place]: 146 QRSD: 94 QT: 394 QTc: 434 [place]: P: 80 [place]: 146 QRS: 52 T: 58 INTERPRETIVE STATEMENTS: Normal sinus rhythm Normal ECG Compared to ECG 01/21/2020 17:47:27 Sinus bradycardia no longer present Electronically Signed On 04-11-22 13:55:53 CDT by Wild Serra
== END 2022-04-10 12:25 | disposition home or self-care (01) ==
LOC: ER 09:53
DX: J45.901 Unspecified asthma with (acute) exacerbation (principal); Z20.822 Contact with and (suspected) exposure to COVID-19; I10 Essential (primary) hypertension; Z88.1 Allergy status to other antibiotic agents; Z88.5 Allergy status to narcotic agent
CPT/HCPCS: 96365; 93005; 85025; 80048; 36415; 83735; 84484; 83880; 71045; 94640; 96375; 99285; U0003; J3475; J2930

== ENCOUNTER 2022-09-16 13:43 | Emergency (ER) | payer BC ==
--- OUTSIDE RECORDS SUMMARY | 2022-09-16 14:04 | XMS REPORT | Continuity of Care Document ---
:1960 Author Organization [facility] t Address [address] [place] [address] Care Team Providers Name Role Phone Villa Jun M Attending Clinician Unavailable Stoney Ya Attending Clinician Miguel Steel Attending Clinician Renea Kelly Attending Clinician JUN IVLLA Admitting Clinician Unavailable Miguel Steel Admitting Clinician Renea Kelly Admitting Clinician Payers Payer Name Policy Type Policy Number Effective Date Expiration Date S alisha Blue Cross Blue 6 [id number] 2022 [facility] 00:00:00 [place] [id number] [facility] Blue Cross Blue C1 [id number] 2019 [facility] 00:00:00 [facility] Problems Condition Condition Condition Status Onset Resolution Last Treating Co mments Source Name Details Category Date Date Treatment Clinician Date ACS ACS Diagnosis Active 2018-04-16 Mem oria Active 04-15 17:32:00 l 04/15/2018 00:00: Gallo patel [place] [address] Johnson HIGH BLOOD HIGH Diagnosis Active 2018-04-15 Memoria PRESSURE BLOOD 04-15 11:24:00 l PRESSURE 00:00: Johnson Active 00 04/15/2018 [facility] [place] CHEST PAIN CHEST Diagnosis Active 2017-12-18 Memoria PAIN 12-14 15:17:00 l Active 00:00: Johnson 12/14/2017 00 [facility] CARDAIC CARDAIC Diagnosis Active 2017-12-14 Memoria Active 12-14 09:29:00 l 12/14/2017 00:00: Gallo patel [address] CHRISTY CHRISTY Diagnosis Active 2017-12-14 Memoria BILLING BILLING 12-14 16:36:00 l Active 00:00: [place] 12/14/2017 00 [facility] Epigastric Epigastri Problem 2018-11-03 Memoria pain c pain 13:22:34 l 11/03/2018 Gallo patel [place] [id number] Body mass Problem Com mon index [facility] [BMI] - [facility] 30.0-30.9[facility] [id number] Other Problem Common obesity Spirit due to - [facility]I excess [facility] [id number] Tobacco Problem Commo n use Spirit disorder [facility] [id number] Moderate Problem Comm on persistent Spirit asthma - [facility] with [facility] [id number] Mixed Problem Common hyperlipid Spirit emia [facility] [id number] Tension Problem Commo n headache [facility] [id number] Essential Problem Comm on hypertensi Spirit on [facility] [id number] Vitamin D Problem Comm on deficiency Spirit disease [facility] [id number] Difficulty Problem Co mmon sleeping [facility] Essential Essential Problem 2018-11-03 Memoria (primary) (primary) 13:22:34 l hypertensi hypertensi He rmann on on 11/03/2018 [place] [id number] Contractur Problem Co mmon e of hand Spirit - [facility] [id number] Other Problem Common chronic Spirit pain - [facility] [id number] Incontinen Problem Com mon ce of Spirit feces, - [facility]I unspecifie St d fecal [facility] incontinen Medica l ce type Center [id number] Primary Problem Comm on osteoarthr Spirit itis of - [facility] left knee [facility] [id number] Family Problem Common history of Spirit heart - [facility] disease [facility] [id number] Anxiety Problem Commo n about Spirit health - [facility] [id number] History of Problem Co mmon TB Spirit (tuberculo - CHI sis) [facility] [id number] Primary Problem Comm on osteoarthr Spirit itis of - [facility] right knee 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 Hyperosmol Hyperosmo Problem 2018-11-03 Memoria ality and lality and 13:22:34 l hypernatre hypernatre Bola rowland susi susi 11/03/2018 [place] [id number] Chronic Problem Common obstructiv Spirit e [facility] type Other Other Problem 2018-11-03 Memor ia chest pain chest pain 13:22:34 l 11/03/2018 Gallo Barnhart Headache Headache Problem 2018-11-03 Memoria 11/03/2018 13:22:34 l Johnson Barnhart Nausea Nausea Problem 2018-11-03 Abdiel princess 11/03/2018 13:22:34 l NICO Barnhart Pain in Pain in Problem 2018-11-03 Me moria left arm left arm 13:22:34 l 11/03/2018 Gallo Barnhart Diverticul Diverticu Problem 2018-11-03 Memoria osis of losis of 13:22:34 l small small Johnson intestine intestine without without perforatio perforatio n or n or abscess abscess without without bleeding bleeding 11/03/2018 [place] Nicotine Nicotine Problem 2018-11-03 Memoria dependence dependence 13:22:34 l , , [place] cigarettes cigarettes , , uncomplica uncomplica yariel yariel 11/03/2018 [facility] Family Family Problem 2018-11-03 Abdiel princess history of history of 13:22:34 l ischemic ischemic Gallo n heart heart disease disease and other and other diseases 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 11/03/2018 [facility] Hypertensi Hypertens Problem Resolve 2021-07-04 Memoria ve osvaldo d 22:47:27 l disorder, disorder, Herm tiffany systemic systemic arterial arterial (disorder) (disorder) Resolved Problem 07/04/2021 [facility] Smoker Smoker Problem Resolve 2021-07-04 Mem oria (finding) (finding) d 22:47:27 l Resolved Johnson Problem 07/04/2021 [facility] Cervical Cervical Problem Active 2021-07-04 Memoria radiculopa radiculopa 22:47:27 l thy thy [place] (disorder) (disorder) Active Problem 07/04/2021 [facility] Paresthesi Paresthes Problem Active 2021-07-04 Memoria a ia 22:47:27 l (finding) (finding) Herm tiffany Active Problem 07/04/2021 [facility] Spasm Spasm Problem Active 2021-07-04 Memor ia (finding) (finding) 22:47:27 l Active [place] Problem 07/04/2021 [facility] 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 Herm tiffany (disorder) (disorder) Active Problem 07/04/2021 [facility] Restless Restless Problem Active 2021-07-04 Memoria legs legs 22:47:27 l (disorder) (disorder) He janett Active Problem 07/04/2021 [facility] CHEST CHEST Diagnosis Active 2017-12-18 Mem oria PAIN, PAIN, 15:17:00 l UNSPECIFIE UNSPECIFIE He rmtiffany D D Active [facility] ACUTE ACUTE Diagnosis Active 2018-04-16 Mem oria ISCHEMIC ISCHEMIC 17:32:00 l HEART HEART [place] DISEASE, DISEASE, UNSPECIFIE UNSPECIFIE Active [facility] History of Past Illness Condition Condition Condition Status Onset Resolution Last Treating Co mments Source Name Details Category Date Date Treatment Clinician Date Jaw pain Jaw pain Problem 2017-2018-11-03 2018-11-03 Memoria 04/21/201804-21 13:22:34 13:22:34 l 04:15: Gallo n 9 [address] [place] Allergies, Adverse Reactions, Alerts Allergy Allergy Status Severity Reaction(s) Onset Inactive Treating Comm ents Source Name Type Date Date Clinician morphine morphine Active Memori a l Johnson Soma Soma Active Memoria l Johnson Bactrim Bactrim Active Memoria l [place] Codeine Codeine Active Unknown [facility] carisopr carisopr Active Itch Common odol odol [facility] morphine morphine Active Itch [facility] sulfamet sulfamet Active Itch Common hoxazole hoxazole [facility] / / - [facility] trimetho trimetho [facility] Social History Social Habit Start Date Stop Date Quantity Comments Source History of Current Smoker Common Spi rit - Tobacco Use [facility] Sex Assigned At Common Sp choco - [facility] Social History 2013-08-19 2013-08-19 Cesar ryan 11:22:15 11:22:15 Smoking Status Start Date Stop Date Source Current Smoker 2022-09-09 00:00:00 [facility] Spiri t [facility] Former Smoker 2022-01-02 00:00:00 2022-01-02 00:00:00 [facility] S pirit [facility] Medications Ordered Filled Start Stop Current Ordering Indication Dosage Frequency Signature Comments Components Source Medication Medication Date Date Medication? Clinician (SIG) Name Name Bupivicaine Bupivicaine 0 No 2.5mg Common [place] Woodlyn 1-17 Spirit 00:00: - [facility] Kenalog Kenalog No 40mg Common (Triamcinol (Triamcinol 1-17 S pirit one) one) 00:00: - [facility] Bupivicaine Bupivicaine 0 No 2.5mg Common [place] Woodlyn 1-17 Spirit 00:00: - [facility] Kenalog Kenalog 2023-0 No 40mg Common (Triamcinol (Triamcinol 1-17 S pirit one) one) 00:00: - [facility] Bupivicaine Bupivicaine 0 No 2.5mg Common [place] Woodlyn 1-17 Spirit 00:00: - [facility] Kenalog Kenalog 0 No 40mg Common (Triamcinol (Triamcinol 1-17 S pirit one) one) 00:00: - [facility] Kenalog Kenalog 2021-08 No 40mg Common (Triamcinol (Triamcinol 2-08 S pirit one) one) 00:00: - [facility] Lidocaine Lidocaine 2021-08 No 10mg Com mon 2 Spirit 00:00: - [facility] Kenalog Kenalog 2021-08 No 40mg Common (Triamcinol (Triamcinol 2-08 S pirit one) one) 00:00: - [facility] Lidocaine Lidocaine 2021- No 10mg Com mon 2 Spirit 00:00: - [facility] Kenalog Kenalog 2021-08 No 40mg Common (Triamcinol (Triamcinol 2-08 S pirit one) one) 00:00: - [facility] Lidocaine Lidocaine 2021-1 No 10mg Com mon 2 Spirit 00:00: - [facility] Kenalog Kenalog 2021-08 No 40mg Common (Triamcinol (Triamcinol 2-08 S pirit one) one) 00:00: - [facility] Lidocaine Lidocaine 2021- No 10mg Com mon 2- Spirit 00:00: - [facility] Kenalog Kenalog 2021- No 40mg Common (Triamcinol (Triamcinol 2-08 S pirit one) one) 00:00: - [facility] Lidocaine Lidocaine 2021-1 No 10mg Com mon 2-08 Spirit 00:00: - [facility] Kenalog Kenalog 2021- No 40mg Common (Triamcinol (Triamcinol 2-08 S pirit one) one) 00:00: - [facility] Lidocaine Lidocaine 2021-08 No 10mg Com mon 2-08 Spirit 00:00: - [facility] Fluticasone Fluticasone 2021-08- No 2{puffs BID Fluticason Propionate Propionate 09-09 } e HFA 220 HFA 220 00:00: 00:00 Propionate MCG/ACT MCG/ACT 00 :00 HFA 220 MCG/ACT Fluticasone Fluticasone 2021-08- No 2{puffs BID Fluticason Propionate Propionate 09-09 } e HFA 220 HFA 220 00:00: 00:00 Propionate MCG/ACT MCG/ACT 00 :00 HFA 220 MCG/ACT Fluticasone Fluticasone 2021-08- No 2{puffs BID Fluticason Propionate Propionate 09-09 } e HFA 220 HFA 220 00:00: 00:00 Propionate MCG/ACT MCG/ACT 00 :00 HFA 220 MCG/ACT Fluticasone Fluticasone 2021-08- No 2{puffs BID Fluticason Propionate Propionate 09-09 } e HFA 220 HFA 220 00:00: 00:00 Propionate MCG/ACT MCG/ACT 00 :00 HFA 220 MCG/ACT Fluticasone Fluticasone 2021-08- No 2{puffs BID Fluticason Propionate Propionate 09-09 } e HFA 220 HFA 220 00:00: 00:00 Propionate MCG/ACT MCG/ACT 00 :00 HFA 220 MCG/ACT Fluticasone Fluticasone 2021-08- No 2{puffs BID Fluticason Propionate Propionate 09-09 } e HFA 220 HFA 220 00:00: 00:00 Propionate MCG/ACT MCG/ACT 00 :00 HFA 220 MCG/ACT Kenalog Kenalog 2021-08 No 40mg Common (Triamcinol (Triamcinol 0-25 S pirit one) one) 00:00: - [facility] Bupivicaine Bupivicaine 2021-08 No 2.5mg Common [place] Woodlyn 0-25 Spirit 00:00: - [facility] Kenalog Kenalog 2021-08 No 40mg Common (Triamcinol (Triamcinol 0-25 S pirit one) one) 00:00: - [facility] Bupivicaine Bupivicaine 2021-08 No 2.5mg Common [place] Woodlyn 0-25 Spirit 00:00: - [facility] Dagoberto Kenalog 2021-08 No 40mg Common (Triamcinol (Triamcinol 0-25 S pirit one) one) 00:00: - [facility] Bupivicaine Bupivicaine 2021-08 No 2.5mg Common [place] Woodlyn 0-25 Spirit 00:00: - [facility] Dagoberto Pylealog 2021-08 No 40mg Common (Triamcinol (Triamcinol 0-25 S pirit one) one) 00:00: - [facility] Bupivicaine Bupivicaine 2021-08 No 2.5mg Common [place] Woodlyn 0-25 Spirit 00:00: - [facility] Dagoberto Pylealog 2021-08 No 40mg Common (Triamcinol (Triamcinol 0-25 S pirit one) one) 00:00: - [facility] Bupivicaine Bupivicaine 2021-08 No 2.5mg Common [place] Woodlyn 0-25 Spirit 00:00: - [facility] Dagoberto Pylealog 2021-08 No 40mg Common (Triamcinol (Triamcinol 0-25 S pirit one) one) 00:00: - [facility] Bupivicaine Bupivicaine 2021-08 No 2.5mg Common [place] Woodlyn 0-25 Spirit 00:00: - [facility] Dagoberto Kenalog 2021-08 No 40mg Common (Triamcinol (Triamcinol 0-25 S pirit one) one) 00:00: - [facility] Bupivicaine Bupivicaine 2021-08 No 2.5mg Common [place] Wood[place] 0-25 Spirit 00:00: - [facility] Dagoberto Kenalog 2021-08 No 40mg Common (Triamcinol (Triamcinol 0-25 S pirit one) one) 00:00: - [facility] Bupivicaine Bupivicaine 2021-08 No 2.5mg Common [place] 0-25 Spirit 00:00: - [facility] 00 [facility] Dagoberto Arenas 2021-08 No 40mg Common (Triamcinol (Triamcinol 0-25 S pirit one) one) 00:00: - [facility] Bupivicaine Bupivicaine 2021-08 No 2.5mg Common [place] 0-25 Spirit 00:00: - [facility] Dagoberto Arenas 2021-08 No 40mg Common (Triamcinol (Triamcinol 0-25 S pirit one) one) 00:00: - [facility] Bupivicaine Bupivicaine 2021-08 No 2.5mg Common [place] Wood[place] 0-25 Spirit 00:00: - [facility] Dag[facility] 2021-08 No 40mg Common (Triamcinol (Triamcinol 0-25 S pirit one) one) 00:00: - [facility] Bupivicaine Bupivicaine 2021-08 No 2.5mg Common [place] Wood[place] 0-25 Spirit 00:00: - [facility] Dagoberto Arenas 2021-08 No 40mg Common (Triamcinol (Triamcinol 0-25 S pirit one) one) 00:00: - [facility] Bupivicaine Bupivicaine 2021-08 No 2.5mg Common [place] 0-25 Spirit 00:00: - [facility] Imitrex 25 Imitrex 25 0 No BID Imitrex 25 MG MG 8-15 MG 00:00: 00 Imitrex 25 Imitrex 25 2021-0 No BID Imitrex 25 MG MG 8-15 MG 00:00: 00 Imitrex 25 Imitrex 25 2021-0 No BID Imitrex 25 MG MG 8-15 MG 00:00: 00 Trelegy Trelegy 2021-0 2022- No 1{puff} QD Trelegy Ellipta Ellipta 7-28 10-26 Ellipta 200-62.5-25 200-62.5-25 00:00: 00:00 200-62.5-2 MCG/INH MCG/INH 00 :00 5 MCG/INH Trelegy Trelegy 2021-0 2- No 1{puff} QD Trelegy Ellipta Ellipta 02-27 Ellipta 200-62.5-25 200-62.5-25 00:00: 00:00 200-62.5-2 MCG/INH MCG/INH 00 :00 5 MCG/INH Trelegy Trelegy 2021-0 2- No 1{puff} QD Trelegy Ellipta Ellipta 02-27 Ellipta 200-62.5-25 200-62.5-25 00:00: 00:00 200-62.5-2 MCG/INH MCG/INH 00 :00 5 MCG/INH Trelegy Trelegy 2021-0 2- No 1{puff} QD Trelegy Ellipta Ellipta 02-27 Ellipta 200-62.5-25 200-62.5-25 00:00: 00:00 200-62.5-2 MCG/INH MCG/INH 00 :00 5 MCG/INH Trelegy Trelegy 2021-0 2- No 1{puff} QD Trelegy Ellipta Ellipta 02-27 Ellipta 200-62.5-25 200-62.5-25 00:00: 00:00 200-62.5-2 MCG/INH MCG/INH 00 :00 5 MCG/INH Trelegy Trelegy 2021-0 2- No 1{puff} QD Trelegy Ellipta Ellipta 02-27 Ellipta 200-62.5-25 200-62.5-25 00:00: 00:00 200-62.5-2 MCG/INH MCG/INH 00 :00 5 MCG/INH Trelegy Trelegy 2021-0 2- No 1{puff} QD Trelegy Ellipta Ellipta 02-27 Ellipta 200-62.5-25 200-62.5-25 00:00: 00:00 200-62.5-2 MCG/INH MCG/INH 00 :00 5 MCG/INH Trelegy Trelegy 2021-0 2- No 1{puff} QD Trelegy Ellipta Ellipta 7-28 10-26 Ellipta 200-62.5-25 200-62.5-25 00:00: 00:00 200-62.5-2 MCG/INH MCG/INH 00 :00 5 MCG/INH Trelegy Trelegy 2021-0 2- No 1{puff} QD Trelegy Ellipta Ellipta 7-28 10-26 Ellipta 200-62.5-25 200-62.5-25 00:00: 00:00 200-62.5-2 MCG/INH MCG/INH 00 :00 5 MCG/INH Trelegy Trelegy 2021-0 2- No 1{puff} QD Trelegy Ellipta Ellipta 7- 10-26 Ellipta 200-62.5-25 200-62.5-25 00:00: 00:00 200-62.5-2 MCG/INH MCG/INH 00 :00 5 MCG/INH Trelegy Trelegy 2021-0 2- No 1{puff} QD Trelegy Ellipta Ellipta 7-28 10-26 Ellipta 200-62.5-25 200-62.5-25 00:00: 00:00 200-62.5-2 MCG/INH MCG/INH 00 :00 5 MCG/INH Trelegy Trelegy 2021-0 2- No 1{puff} QD Trelegy Ellipta Ellipta 7-28 10-26 Ellipta 200-62.5-25 200-62.5-25 00:00: 00:00 200-62.5-2 MCG/INH MCG/INH 00 :00 5 MCG/INH Trelegy Trelegy 2021-0 2- No 1{puff} QD Trelegy Ellipta Ellipta 7-28 10-26 Ellipta 200-62.5-25 200-62.5-25 00:00: 00:00 200-62.5-2 MCG/INH MCG/INH 00 :00 5 MCG/INH Trelegy Trelegy 2021-0 2- No 1{puff} QD Trelegy Ellipta Ellipta 7-28 10-26 Ellipta 200-62.5-25 200-62.5-25 00:00: 00:00 200-62.5-2 MCG/INH MCG/INH 00 :00 5 MCG/INH Trelegy Trelegy 2021-0 2- No 1{puff} QD Trelegy Ellipta Ellipta -30 05- Ellipta 200-62.5-25 200-62.5-25 00:00: 00:00 200-62.5-2 MCG/INH MCG/INH 00 :00 5 MCG/INH Trelegy Trelegy 2021-0 2- No 1{puff} QD Trelegy Ellipta Ellipta 02-27- Ellipta 200-62.5-25 200-62.5-25 00:00: 00:00 200-62.5-2 MCG/INH MCG/INH 00 :00 5 MCG/INH Hyalgan 20 Hyalgan 20 2021-0 No 20mg C ommon mg mg 5- Spirit 00:00: - [facility] Hyalgan 20 Hyalgan 20 2021-0 No 20mg C ommon mg mg 12-31 Spirit 00:00: - [facility] Hyalgan 20 Hyalgan 20 2021-0 No 20mg C ommon mg mg 12-31 Spirit 00:00: - [facility] Hyalgan 20 Hyalgan 20 2021-0 No 20mg C ommon mg mg 12-31 Spirit 00:00: - [facility] Hyalgan 20 Hyalgan 20 2021-0 No 20mg C ommon mg mg - Spirit 00:00: - [facility] Hyalgan 20 Hyalgan 20 2021-0 No 20mg C ommon mg mg 12-31 Spirit 00:00: - [facility] Hyalgan 20 Hyalgan 20 2021-0 No 20mg C ommon mg mg 5 Spirit 00:00: - [facility] Hyalgan 20 Hyalgan 20 2021-0 No 20mg C ommon mg mg 12-31 Spirit 00:00: - [facility] Hyalgan 20 Hyalgan 20 2021-0 No 20mg C ommon mg mg 5- Spirit 00:00: - [facility] Hyalgan 20 Hyalgan 20 2021-0 No 20mg C ommon mg mg 12-31 Spirit 00:00: - [facility] Hyalgan 20 Hyalgan 20 2021-0 No 20mg C ommon mg mg 12-31 Spirit 00:00: - [facility] Hyalgan 20 Hyalgan 20 2021-0 No 20mg C ommon mg mg 12-31 Spirit 00:00: - [facility] Hyalgan 20 Hyalgan 20 2021-0 No 20mg C ommon mg mg 12-31 Spirit 00:00: - [facility] Hyalgan 20 Hyalgan 20 2021-0 No 20mg C ommon mg mg 12-31 Spirit 00:00: - [facility] Hyalgan 20 Hyalgan 20 2021-0 No 20mg C ommon mg mg 12-31 Spirit 00:00: - [facility] Hyalgan 20 Hyalgan 20 2021-0 No 20mg C ommon mg mg 12-31 Spirit 00:00: - [facility] Hyalgan 20 Hyalgan 20 2021-0 No 20mg C ommon mg mg 12-31 Spirit 00:00: - [facility] Hyalgan 20 Hyalgan 20 2021-0 No 20mg C ommon mg mg 12-31 Spirit 00:00: - [facility] Hyalgan 20 Hyalgan 20 2021-0 No 20mg C ommon mg mg 12-31 Spirit 00:00: - [facility] Hyalgan 20 Hyalgan 20 2021-0 No 20mg C ommon mg mg 12-31 Spirit 00:00: - [facility] Hyalgan 20 Hyalgan 20 2021-0 No 20mg C ommon mg mg 12-31 Spirit 00:00: - [facility] Hyalgan 20 Hyalgan 20 2021-0 No 20mg C ommon mg mg 12-31 Spirit 00:00: - [facility] Hyalgan 20 Hyalgan 20 2021-0 No 20mg C ommon mg mg 12-31 Spirit 00:00: - [facility] Hyalgan 20 Hyalgan 20 2021-0 No 20mg C ommon mg mg 12-31 Spirit 00:00: - [facility] Hyalgan 20 Hyalgan 20 2021-0 No 20mg C ommon mg mg 12-31 Spirit 00:00: - [facility] Hyalgan 20 Hyalgan 20 2021-0 No 20mg C ommon mg mg 12-31 Spirit 00:00: - [facility] Hyalgan 20 Hyalgan 20 2021-0 No 20mg C ommon mg mg 12-31 Spirit 00:00: - [facility] Hyalgan 20 Hyalgan 20 2021-0 No 20mg C ommon mg mg 12-31 Spirit 00:00: - [facility] Hyalgan 20 Hyalgan 20 2021-0 No 20mg C ommon mg mg 12-31 Spirit 00:00: - [facility] Hyalgan 20 Hyalgan 20 2021-0 No 20mg C ommon mg mg 12-31 Spirit 00:00: - [facility] Hyalgan 20 Hyalgan 20 2021-0 No 20mg C ommon mg mg 12-31 Spirit 00:00: - [facility] Hyalgan 20 Hyalgan 20 2021-0 No 20mg C ommon mg mg 12-31 Spirit 00:00: - [facility] Hyalgan 20 Hyalgan 20 2021-0 No 20mg C ommon mg mg 12-31 Spirit 00:00: - [facility] Hyalgan 20 Hyalgan 20 2021-0 No 20mg C ommon mg mg 12-31 Spirit 00:00: - [facility] Hyalgan 20 Hyalgan 20 2021-0 No 20mg C ommon mg mg 12-31 Spirit 00:00: - [facility] Hyalgan 20 Hyalgan 20 2021-0 No 20mg C ommon mg mg 12-31 Spirit 00:00: - [facility] Hyalgan 20 Hyalgan 20 2021-0 No 20mg C ommon mg mg 12-31 Spirit 00:00: - [facility] Hyalgan 20 Hyalgan 20 2021-0 No 20mg C ommon mg mg 12-31 Spirit 00:00: - [facility] Hyalgan 20 Hyalgan 20 2021-0 No 20mg C ommon mg mg 12-31 Spirit 00:00: - [facility] Hyalgan 20 Hyalgan 20 2021-0 No 20mg C ommon mg mg 12-31 Spirit 00:00: - [facility] Hyalgan 20 Hyalgan 20 2021-0 No 20mg C ommon mg mg 12-31 Spirit 00:00: - [facility] Hyalgan 20 Hyalgan 20 2021-0 No 20mg C ommon mg mg 12-31 Spirit 00:00: - [facility] Hyalgan 20 Hyalgan 20 2021-0 No 20mg C ommon mg mg 12-31 Spirit 00:00: - [facility] Hyalgan 20 Hyalgan 20 2021-0 No 20mg C ommon mg mg 12-31 Spirit 00:00: - [facility] Hyalgan 20 Hyalgan 20 2021-0 No 20mg C ommon mg mg 12-31 Spirit 00:00: - [facility] Hyalgan 20 Hyalgan 20 2021-0 No 20mg C ommon mg mg 12-31 Spirit 00:00: - [facility] Hyalgan 20 Hyalgan 20 2021-0 No 20mg C ommon mg mg 12-31 Spirit 00:00: - [facility] Hyalgan 20 Hyalgan 20 2021-0 No 20mg C ommon mg mg 12-31 Spirit 00:00: - [facility] Hyalgan 20 Hyalgan 20 2021-0 No 20mg C ommon mg mg 12-31 Spirit 00:00: - [facility] Hyalgan 20 Hyalgan 20 2021-0 No 20mg C ommon mg mg 12-31 Spirit 00:00: - [facility] Hyalgan 20 Hyalgan 20 2021-0 No 20mg C ommon mg mg 12-31 Spirit 00:00: - [facility] Hyalgan 20 Hyalgan 20 2021-0 No 20mg C ommon mg mg 12-31 Spirit 00:00: - [facility] Hyalgan 20 Hyalgan 20 2021-0 No 20mg C ommon mg mg 12-31 Spirit 00:00: - [facility] Hyalgan 20 Hyalgan 20 2021-0 No 20mg C ommon mg mg 531 Spirit 00:00: [facility] Hyalgan 20 Hyalgan 20 2021-0 No 20mg C ommon mg mg 12-31 Spirit 00:00: - [facility] Hyalgan 20 Hyalgan 20 2021-0 No 20mg C ommon mg mg 12-31 Spirit 00:00: - [facility] Hyalgan 20 Hyalgan 20 2021-0 No 20mg C ommon mg mg 12-31 Spirit 00:00: - [facility] Hyalgan 20 Hyalgan 20 2021-0 No 20mg C ommon mg mg 12-31 Spirit 00:00: - [facility] Hyalgan 20 Hyalgan 20 2021-0 No 20mg C ommon mg mg 12-17 Spirit 00:00: - [facility] Hyalgan 20 Hyalgan 20 2021-0 No 20mg C ommon mg mg 12-17 Spirit 00:00: - [facility] Hyalgan 20 Hyalgan 20 2021-0 No 20mg C ommon mg mg 12-17 Spirit 00:00: - [facility] Hyalgan 20 Hyalgan 20 2021-0 No 20mg C ommon mg mg 12-17 Spirit 00:00: - [facility] Hyalgan 20 Hyalgan 20 2021-0 No 20mg C ommon mg mg 12-17 Spirit 00:00: - [facility] Hyalgan 20 Hyalgan 20 2021-0 No 20mg C ommon mg mg 12-17 Spirit 00:00: - [facility] Hyalgan 20 Hyalgan 20 2021-0 No 20mg C [facility] mg mg 12-17 [facility] 00[facility]00: - [facility] [place] [facility] [place] 20 2021-0 No 20mg C [facility] mg mg 12-17 [facility] 00:00: - [facility] [place] [facility] [place] 20 2021-0 No 20mg C [facility] mg mg 12-17 [facility] 00:00: - [facility] [place] 20 [place] 20 2021-0 No 20mg C [facility] mg mg 12-17 [facility] 00:00: - [facility] [place] 20 [place] 20 2021-0 No 20mg C [facility] mg mg 12-17 [facility] 00:00: - [facility] [place] 20 [place] 20 2021-0 No 20mg C [facility] mg mg 12-17 [facility] 00:00: - [facility] [place] 20 [place] 20 2021-0 No 20mg C [facility] mg mg 12-17 [facility] 00:00: - [facility] [place] 20 [place] 20 2021-0 No 20mg C [facility] mg mg 12-17 [facility] 00:00: - [facility] [place] 20 [place] 20 2021-0 No 20mg C [facility] mg mg 12-17 [facility] 00:00: - [facility] [place] 20 [place] 20 2021-0 No 20mg C [facility] mg mg 12-17 [facility] 00:00: - [facility] [place] 20 [place] 20 2021-0 No 20mg C [facility] mg mg 12-17 [facility] 00:00: - [facility] [place] 20 2021-0 No 20mg C [facility] mg mg 12-17 [facility] 00:00: - [facility] [place] 20 2021-0 No 20mg C [facility] mg mg 12-17 [facility] 00:00: - [facility] [place] 20 [place] 20 2021-0 No 20mg C [facility] mg mg 12-17 [facility] 00:00: - [facility] [place] 20 [place] 20 2021-0 No 20mg C [facility] mg mg 12-17 [facility] 00:00: - [facility] [place] 20 [place] 20 2021-0 No 20mg C [facility] mg mg 12-17 [facility] 00:00: - [facility] [place] 20 [place] 20 2021-0 No 20mg C [facility] mg mg 12-17 [facility] 00:00: - [facility] [place] 20 [place] 20 2021-0 No 20mg C [facility] mg mg 12-17 [facility] 00:00: - [facility] [place] 20 [place] 20 2021-0 No 20mg C [facility] mg mg 12-17 [facility] 00:00: - [facility] [place] 20 [place] 20 2021-0 No 20mg C [facility] mg mg 12-17 [facility] 00:00: - [facility] [place] 20 [place] 20 2021-0 No 20mg C [facility] mg mg 12-17 [facility] 00:00: - [facility] [place] 20 [place] 20 2-0 No 20mg C [facility] mg mg 12-17 [facility] 00:00: - [facility] [place] 20 [place] 20 2021-0 No 20mg C [facility] mg mg 12-17 [facility] 00:00: - [facility] [place] 20 [place] 20 2021-0 No 20mg C [facility] mg mg 12-17 [facility] 00:00: - [facility] [place] 20 [place] 20 2021-0 No 20mg C [facility] mg mg 12-17 [facility] 00:00: - [facility] [place] 20 [place] 20 2021-0 No 20mg C [facility] mg mg 12-17 [facility] 00:00: - [facility] [place] 20 [place] 20 2021-0 No 20mg C [facility] mg mg 12-17 [facility] 00:00: - [facility] [place] 20 [place] 20 2021-0 No 20mg C [facility] mg mg 12-17 [facility] 00:00: - [facility] [place] 20 [place] 20 2021-0 No 20mg C [facility] mg mg 12-17 [facility] 00:00: - [facility] [place] 20 [place] 20 2021-0 No 20mg C [facility] mg mg 12-17 [facility] 00:00: - [facility] [place] 20 [place] 20 2021-0 No 20mg C [facility] mg mg 12-17 [facility] 00:00: - [facility] [place] 20 [place] 20 2021-0 No 20mg C [facility] mg mg 12-17 [facility] 00:00: - [facility] [place] 20 [place] 20 2021-0 No 20mg C [facility] mg mg 12-17 [facility] 00:00: - [facility] [place] 20 [place] 20 2021-0 No 20mg C [facility] mg mg 12-17 [facility] 00:00: - [facility] [place] 20 [place] 20 2021-0 No 20mg C [facility] mg mg 12-17 [facility] 00:00: - [facility] [place] 20 [place] 20 2-0 No 20mg C [facility] mg mg 12-17 [facility] 00:00: - [facility] [place] 20 [place] 20 2021-0 No 20mg C [facility] mg mg 12-17 [facility] 00:00: - [facility] [place] 20 [place] 20 2-0 No 20mg C [facility] mg mg 12-17 [facility] 00:00: - [facility] [place] 20 [place] 20 2021-0 No 20mg C [facility] mg mg 12-17 [facility] 00:00: - [facility] [place] 20 [place] 20 2021-0 No 20mg C [facility] mg mg 12-17 [facility] 00:00: - [facility] [place] 20 [place] 20 2021-0 No 20mg C [facility] mg mg 12-17 [facility] 00:00: - [facility] [place] 20 [place] 20 2021-0 No 20mg C [facility] mg mg 12-17 [facility] 00:00: - [facility] [place] 20 [place] 20 2021-0 No 20mg C [facility] mg mg 12-17 [facility] 00:00: - [facility] [place] 20 [place] 20 2021-0 No 20mg C [facility] mg mg 12-17 [facility] 00:00: - [facility] [place] 20 [place] 20 2-0 No 20mg C [facility] mg mg 12-17 [facility] 00:00: - [facility] [place] 20 [place] 20 2-0 No 20mg C [facility] mg mg 12-17 [facility] 00:00: - [facility] [place] 20 [place] 20 2-0 No 20mg C [facility] mg mg 12-17 [facility] 00:00: - [facility] [place] 20 [place] 20 2-0 No 20mg C [facility] mg mg 12-17 [facility] 00:00: - [facility] [place] 20 [place] 20 2021-0 No 20mg C [facility] mg mg 5-17 [facility] 00:00: - [facility] [place] 20 [place] 20 2021-0 No 20mg C [facility] mg mg -17 [facility] 00:00: - [facility] [place] 20 [place] 20 2021-0 No 20mg C [facility] mg mg -17 [facility] 00:00: - [facility] [place] 20 [place] 20 2021-0 No 20mg C [facility] mg mg - [facility] 00:00: - [facility] [place] 20 [place] 20 2021-0 No 20mg C [facility] mg mg - [facility] 00:00: - [facility] [place] 20 [place] 20 2021-0 No 20mg C [facility] mg mg 12-17 [facility] 00:00: - [facility] Bupivicaine Bupivicaine 2-0 No 2.5mg [facility] [place] 5-10 [facility] 00:00: - [facility] Bupivicaine Bupivicaine 2-0 No 2.5mg [facility] [place] 5-10 [facility] 00:00: - [facility] [place] 2021-0 No 40mg Common (Triamcinol (Triamcinol 5-10 S pirit one) one) 00:00: - [facility] [place] 20 [place] 20 2021-0 No 20mg C [facility] mg mg 5-10 [facility] 00:00: - [facility] [place] 20 [place] 20 2021-0 No 20mg C [facility] mg mg 5-10 [facility] 00:00: - [facility] [place] 2-0 No 40mg Common (Triamcinol (Triamcinol 5-10 S pirit one) one) 00:00: - [facility] Bupivicaine Bupivicaine 2-0 No 2.5mg [facility] [place] 5-10 [facility] 00:00: - [facility] Bupivicaine Bupivicaine 2-0 No 2.5mg [facility] [place] 5-10 [facility] 00:00: - [facility] [place] Ken[place] 2022-0 No 40mg Common (Triamcinol (Triamcinol 5-10 S pirit one) one) 00:00: - [facility] [place] 20 [place] 20 2021-0 No 20mg C [facility] mg mg 5-10 [facility] 00:00: - [facility] [place] 20 [place] 20 2021-0 No 20mg C [facility] mg mg 5-10 [facility] 00:00: - [facility] [place] Ken[place] 2021-0 No 40mg Common (Triamcinol (Triamcinol 5-10 S pirit one) one) 00:00: - [facility] Bupivicaine Bupivicaine 2021-0 No 2.5mg [facility] [place] 5-10 [facility] 00:00: - [facility] Bupivicaine Bupivicaine 2021-0 No 2.5mg [facility] [place] 5-10 [facility] 00:00: - [facility] [place] Ken[place] 2021-0 No 40mg Common (Triamcinol (Triamcinol 5-10 S pirit one) one) 00:00: - [facility] [place] 20 [place] 20 2021-0 No 20mg C [facility] mg mg 5-10 [facility] 00:00: - [facility] [place] 20 [place] 20 2021-0 No 20mg C [facility] mg mg 5-10 [facility] 00:00: - [facility] [place] Ken[place] 2021-0 No 40mg Common (Triamcinol (Triamcinol 5-10 S pirit one) one) 00:00: - [facility] Bupivicaine Bupivicaine 2-0 No 2.5mg [facility] [place] 5-10 [facility] 00:00: - [facility] Bupivicaine Bupivicaine 2-0 No 2.5mg [facility] [place] 5-10 [facility] 00:00: - [facility] [place] Ken[place] 2021-0 No 40mg Common (Triamcinol (Triamcinol 5-10 S pirit one) one) 00:00: - [facility] [place] 20 [place] 20 2021-0 No 20mg C [facility] mg mg 5-10 [facility] 00:00: - [facility] [place] 20 [place] 20 2021-0 No 20mg C [facility] mg mg 5-10 [facility] 00:00: - [facility] [place] 2021-0 No 40mg Common (Triamcinol (Triamcinol 5-10 S pirit one) one) 00:00: - [facility] Bupivicaine Bupivicaine 2021-0 No 2.5mg [facility] [place] 5-10 [facility] 00:00: - [facility] Bupivicaine Bupivicaine 2021-0 No 2.5mg [facility] [place] 5-10 [facility] 00:00: - [facility] [place] Ken[place] 2021-0 No 40mg Common (Triamcinol (Triamcinol 5-10 S pirit one) one) 00:00: - [facility] [place] 20 [place] 20 2021-0 No 20mg C [facility] mg mg 5-10 [facility] 00:00: - [facility] [place] 20 [place] 20 2021-0 No 20mg C [facility] mg mg 5-10 [facility] 00:00: - [facility] [place] Ken[place] 2021-0 No 40mg Common (Triamcinol (Triamcinol 5-10 S pirit one) one) 00:00: - [facility] Bupivicaine Bupivicaine 2021-0 No 2.5mg [facility] [place] 5-10 [facility] 00:00: - [facility] Bupivicaine Bupivicaine 2021-0 No 2.5mg [facility] [place] 5-10 [facility] 00:00: - [facility] [place] Ken[place] 2021-0 No 40mg Common (Triamcinol (Triamcinol 5-10 S pirit one) one) 00:00: - [facility] [place] 20 [place] 20 2021-0 No 20mg C [facility] mg mg 5-10 [facility] 00:00: - [facility] [place] 20 [place] 20 2021-0 No 20mg C [facility] mg mg 5-10 [facility] 00:00: - [facility] [place] Ken[place] 2021-0 No 40mg Common (Triamcinol (Triamcinol 5-10 S pirit one) one) 00:00: - [facility] Bupivicaine Bupivicaine 2-0 No 2.5mg [facility] [place] 5-10 [facility] 00:00: - [facility] Bupivicaine Bupivicaine 2-0 No 2.5mg [facility] [place] 5-10 [facility] 00:00: - [facility] [place] Ken[place] 2021-0 No 40mg Common (Triamcinol (Triamcinol 5-10 S pirit one) one) 00:00: - [facility] [place] 20 [place] 20 2021-0 No 20mg C [facility] mg mg 5-10 [facility] 00:00: - [facility] [place] 20 [place] 20 2021-0 No 20mg C [facility] mg mg 5-10 [facility] 00:00: - [facility] [place] Ken[place] 2021-0 No 40mg Common (Triamcinol (Triamcinol 5-10 S pirit one) one) 00:00: - [facility] Bupivicaine Bupivicaine 2-0 No 2.5mg [facility] [place] 5-10 [facility] 00:00: - [facility] Bupivicaine Bupivicaine 2-0 No 2.5mg [facility] [place] 5-10 [facility] 00:00: - [facility] [place] Ken[place] 2021-0 No 40mg Common (Triamcinol (Triamcinol 5-10 S pirit one) one) 00:00: - [facility] [place] 20 [place] 20 2021-0 No 20mg C [facility] mg mg 5-10 [facility] 00:00: - [facility] [place] 20 [place] 20 2021-0 No 20mg C [facility] mg mg 5-10 [facility] 00:00: - [facility] [place] Ken[place] 2021-0 No 40mg Common (Triamcinol (Triamcinol 5-10 S pirit one) one) 00:00: - [facility] Bupivicaine Bupivicaine 2-0 No 2.5mg [facility] [place] 5-10 [facility] 00:00: - [facility] Bupivicaine Bupivicaine 2-0 No 2.5mg [facility] [place] 5-10 [facility] 00:00: - [facility] [place] Ken[place] 2021-0 No 40mg Common (Triamcinol (Triamcinol 5-10 S pirit one) one) 00:00: - [facility] [place] 20 [place] 20 2021-0 No 20mg C [facility] mg mg 5-10 [facility] 00:00: - [facility] [place] 20 [place] 20 2021-0 No 20mg C [facility] mg mg 5-10 [facility] 00:00: - [facility] [place] 2021-0 No 40mg Common (Triamcinol (Triamcinol 5-10 S pirit one) one) 00:00: - [facility] Bupivicaine Bupivicaine 2021-0 No 2.5mg [facility] [place] 5-10 [facility] 00:00: - [facility] Bupivicaine Bupivicaine 2021-0 No 2.5mg [facility] [place] 5-10 [facility] 00:00: - [facility] [place] Ken[place] 2021-0 No 40mg Common (Triamcinol (Triamcinol 5-10 S pirit one) one) 00:00: - [facility] [place] 20 [place] 20 2021-0 No 20mg C [facility] mg mg 5-10 [facility] 00:00: - [facility] [place] 20 [place] 20 2021-0 No 20mg C [facility] mg mg 5-10 [facility] 00:00: - [facility] [place] Ken[place] 2021-0 No 40mg Common (Triamcinol (Triamcinol 5-10 S pirit one) one) 00:00: - [facility] Bupivicaine Bupivicaine 2-0 No 2.5mg [facility] [place] 5-10 [facility] 00:00: - [facility] Bupivicaine Bupivicaine 2-0 No 2.5mg [facility] [place] 5-10 [facility] 00:00: - [facility] Bupivicaine Bupivicaine 2-0 No 2.5mg [facility] [place] 5-10 [facility] 00:00: - [facility] [place] Ken[place] 2021-0 No 40mg Common (Triamcinol (Triamcinol 5-10 S pirit one) one) 00:00: - [facility] Bupivicaine Bupivicaine 2-0 No 2.5mg [facility] [place] 5-10 [facility] 00:00: - [facility] [place] 20 [place] 20 2021-0 No 20mg C [facility] mg mg 5-10 [facility] 00:00: - [facility] [place] 20 [place] 20 2021-0 No 20mg C [facility] mg mg 5-10 [facility] 00:00: - [facility] [place] Ken[place] 2021-0 No 40mg Common (Triamcinol (Triamcinol 5-10 S pirit one) one) 00:00: - [facility] Bupivicaine Bupivicaine 2-0 No 2.5mg [facility] [place] 5-10 [facility] 00:00: - [facility] Bupivicaine Bupivicaine 2-0 No 2.5mg [facility] [place] 5-10 [facility] 00:00: - [facility] [place] Ken[place] 2021-0 No 40mg Common (Triamcinol (Triamcinol 5-10 S pirit one) one) 00:00: - [facility] [place] Ken[place] 2021-0 No 40mg Common (Triamcinol (Triamcinol 5-10 S pirit one) one) 00:00: - [facility] [place] 20 [place] 20 2021-0 No 20mg C [facility] mg mg 5-10 [facility] 00:00: - [facility] [place] 20 [place] 20 2021-0 No 20mg C [facility] mg mg 5-10 [facility] 00:00: - [facility] [place] Ken[place] 2021-0 No 40mg Common (Triamcinol (Triamcinol 5-10 S pirit one) one) 00:00: - [facility] [place] 20 [place] 20 2021-0 No 20mg C [facility] mg mg 5-10 [facility] 00:00: - [facility] [place] 20 [place] 20 2021-0 No 20mg C [facility] mg mg 5-10 [facility] 00:00: - [facility] [place] Ken[place] 2021-0 No 40mg Common (Triamcinol (Triamcinol 5-10 S pirit one) one) 00:00: - [facility] Bupivicaine Bupivicaine 2-0 No 2.5mg [facility] [place] 5-10 [facility] 00:00: - [facility] Bupivicaine Bupivicaine 2-0 No 2.5mg [facility] [place] 5-10 [facility] 00:00: - [facility] [place] Ken[place] 2021-0 No 40mg Common (Triamcinol (Triamcinol 5-10 S pirit one) one) 00:00: - [facility] [place] 20 [place] 20 2021-0 No 20mg C [facility] mg mg 5-10 [facility] 00:00: - [facility] [place] 20 [place] 20 2021-0 No 20mg C [facility] mg mg 5-10 [facility] 00:00: - [facility] [place] 20 [place] 20 2021-0 No 20mg C [facility] mg mg 5-10 [facility] 00:00: - [facility] [place] Ken[place] 2021-0 No 40mg Common (Triamcinol (Triamcinol 5-10 S pirit one) one) 00:00: - [facility] Bupivicaine Bupivicaine 2-0 No 2.5mg [facility] [place] 5-10 [facility] 00:00: - [facility] Bupivicaine Bupivicaine 2-0 No 2.5mg [facility] [place] 5-10 [facility] 00:00: - [facility] [place] Ken[place] 2021-0 No 40mg Common (Triamcinol (Triamcinol 5-10 S pirit one) one) 00:00: - [facility] [place] 20 [place] 20 2021-0 No 20mg C [facility] mg mg 5-10 [facility] 00:00: - [facility] [place] Ken[place] 2021-0 No 40mg Common (Triamcinol (Triamcinol 5-10 S pirit one) one) 00:00: - [facility] [place] 20 [place] 20 2021-0 No 20mg C [facility] mg mg 5-10 [facility] 00:00: - [facility] [place] Ken[place] 2021-0 No 40mg Common (Triamcinol (Triamcinol 5-10 S pirit one) one) 00:00: - [facility] Bupivicaine Bupivicaine 2-0 No 2.5mg [facility] [place] 5-10 [facility] 00:00: - [facility] Bupivicaine Bupivicaine 2021-0 No 2.5mg [facility] [place] 5-10 [facility] 00:00: - [facility] [place] Ken[place] 2021-0 No 40mg Common (Triamcinol (Triamcinol 5-10 S pirit one) one) 00:00: - [facility] [place] 20 [place] 20 2021-0 No 20mg C [facility] mg mg 5-10 [facility] 00:00: - [facility] [place] 20 [place] 20 2021-0 No 20mg C [facility] mg mg 5-10 [facility] 00:00: - [facility] [place] Ken[place] 2021-0 No 40mg Common (Triamcinol (Triamcinol 5-10 S pirit one) one) 00:00: - [facility] Bupivicaine Bupivicaine 2-0 No 2.5mg [facility] [place] 5-10 [facility] 00:00: - [facility] Bupivicaine Bupivicaine 2-0 No 2.5mg [facility] [place] 5-10 [facility] 00:00: - [facility] [place] Ken[place] 2021-0 No 40mg Common (Triamcinol (Triamcinol 5-10 S pirit one) one) 00:00: - [facility] [place] 20 [place] 20 2021-0 No 20mg C [facility] mg mg 5-10 [facility] 00:00: - [facility] [place] 20 [place] 20 2021-0 No 20mg C [facility] mg mg 5-10 [facility] 00:00: - [facility] [place] Ken[place] 2021-0 No 40mg Common (Triamcinol (Triamcinol 5-10 S pirit one) one) 00:00: - [facility] Bupivicaine Bupivicaine 2021-0 No 2.5mg [facility] [place] 5-10 [facility] 00:00: - [facility] Bupivicaine Bupivicaine 2021-0 No 2.5mg [facility] [place] 5-10 [facility] 00:00: - [facility] [place] Ken[place]og 2021-0 No 40mg Common (Triamcinol (Triamcinol 5-10 S pirit one) one) 00:00: - [facility] [place] 20 [place] 20 2021-0 No 20mg C [facility] mg mg 5-10 [facility] 00:00: - [facility] [place] 20 [place] 20 2021-0 No 20mg C [facility] mg mg 5-10 [facility] 00:00: - [facility] [place] Ken[place] 2021-0 No 40mg Common (Triamcinol (Triamcinol 5-10 S pirit one) one) 00:00: - [facility] Bupivicaine Bupivicaine 2021-0 No 2.5mg [facility] [place] 5-10 [facility] 00:00: - [facility] Bupivicaine Bupivicaine 2021-0 No 2.5mg [facility] [place] 5-10 [facility] 00:00: - [facility] [place] Kenalog 2021-0 No 40mg Common (Triamcinol (Triamcinol 5-10 S pirit one) one) 00:00: - [facility] [place] 20 [place] 20 2021-0 No 20mg C [facility]mon mg mg 5-10 [facility] 00:00: - [facility] [place] 20 [place] 20 2021-0 No 20mg C [facility] mg mg 5-10 [facility] 00:00: - [facility] [place] Ken[place]og 2021-0 No 40mg Common (Triamcinol (Triamcinol 5-10 S pirit one) one) 00:00: - [facility] Bupivicaine Bupivicaine 2021-0 No 2.5mg [facility] [place] 5-10 [facility] 00:00: - [facility] [place] Kenalog 2021-0 No 40mg Common (Triamcinol (Triamcinol 5-10 S pirit one) one) 00:00: - [facility] [place] 20 [place] 20 2021-0 No 20mg C [facility] mg mg 5-10 [facility] 00:00: - [facility] Bupivicaine Bupivicaine 2021-0 No 2.5mg [facility] [place] 5-10 [facility] 00:00: - [facility] Bupivicaine Bupivicaine 2021-0 No 2.5mg [facility] [place] 5-10 [facility] 00:00: - [facility] [place] 20 [place] 20 2021-0 No 20mg C [facility]mon mg mg 5-10 [facility] 00:00: - [facility] Bupivicaine Bupivicaine 2021-0 No 2.5mg [facility] [place] 5-10 [facility] 00:00: - [facility] [place] Kenalog 2021-0 No 40mg Common (Triamcinol (Triamcinol 5-10 S pirit one) one) 00:00: - [facility] Bupivicaine Bupivicaine 2-0 No 2.5mg [facility] [place] 5-10 [facility] 00:00: - [facility] [place] Kenalog 2021-0 No 40mg Common (Triamcinol (Triamcinol 5-10 S pirit one) one) 00:00: - [facility] [place] 20 [place] 20 2021-0 No 20mg C [facility] mg mg 5-10 [facility] 00:00: - [facility] Bupivicaine Bupivicaine 2021-0 No 2.5mg [facility] [place] 5-10 [facility] 00:00: - [facility] [place] Kenalog 2021-0 No 40mg Common (Triamcinol (Triamcinol 5-10 S pirit one) one) 00:00: - [facility] [place] 20 [place] 20 2021-0 No 20mg C [facility] mg mg 5-10 [facility] 00:00: - [facility] [place] Kenalog 2021-0 No 40mg Common (Triamcinol (Triamcinol 5-10 S pirit one) one) 00:00: - [facility] Bupivicaine Bupivicaine 2021-0 No 2.5mg [facility] [place] 5-10 [facility] 00:00: - [facility] [place] Kenalog 2021-0 No 40mg Common (Triamcinol (Triamcinol 5-10 S pirit one) one) 00:00: - [facility] [place] 20 [place] 20 2021-0 No 20mg C [facility] mg mg 5-10 [facility] 00:00: - [facility] Bupivicaine Bupivicaine 2021-0 No 2.5mg [facility] [place] 5-10 [facility] 00:00: - [facility] [place] 20 [place] 20 2021-0 No 20mg C [facility] mg mg 5-10 [facility] 00:00: - [facility] [place] Kenalog 2021-0 No 40mg Common (Triamcinol (Triamcinol 5-10 S pirit one) one) 00:00: - [facility] Bupivicaine Bupivicaine 2021-0 No 2.5mg [facility] [place] 5-10 [facility] 00:00: - [facility] [place] Kenalog 2021-0 No 40mg Common (Triamcinol (Triamcinol 5-10 S pirit one) one) 00:00: - [facility] [place] 20 [place] 20 2021-0 No 20mg C [facility] mg mg 5-10 [facility] 00:00: - [facility] [place] 20 [place] 20 2021-0 No 20mg C [facility] mg mg 5-10 [facility] 00:00: - [facility] Bupivicaine Bupivicaine 2021-0 No 2.5mg [facility] [place] 5-10 [facility] 00:00: - [facility] [place] 20 [place] 20 2021-0 No 20mg C [facility]mon mg mg 5-10 [facility] 00:00: - [facility] [place] 20 [place] 20 2021-0 No 20mg C [facility] mg mg 5-10 [facility] 00:00: - [facility] [place] Ken[place]og 2021-0 No 40mg Common (Triamcinol (Triamcinol 5-10 S pirit one) one) 00:00: - [facility] Bupivicaine Bupivicaine 2021-0 No 2.5mg [facility] [place] 5-10 [facility] 00:00: - [facility] [place] Kenalog 2021-0 No 40mg Common (Triamcinol (Triamcinol 5-10 S pirit one) one) 00:00: - [facility] [place] 20 [place] 20 2021-0 No 20mg C [facility]mon mg mg 5-10 [facility] 00:00: - [facility] Bupivicaine Bupivicaine 2021-0 No 2.5mg [facility] [place] 5-10 [facility] 00:00: - [facility] [place] Kenalog 2021-0 No 40mg Common (Triamcinol (Triamcinol 5-10 S pirit one) one) 00:00: - [facility] [place] 20 [place] 20 2021-0 No 20mg C [facility]mon mg mg 5-10 [facility] 00:00: - [facility] [place] Kenalog 2021-0 No 40mg Common (Triamcinol (Triamcinol 5-10 S pirit one) one) 00:00: - [facility] Bupivicaine Bupivicaine 2-0 No 2.5mg Common Woodlyn Woodlyn 5-10 Spirit 00:00: - [facility] Kenalog Kenalog 2021-0 No 40mg Common (Triamcinol (Triamcinol 5-10 S pirit one) one) 00:00: - [facility] Hyalgan 20 Hyalgan 20 2021-0 No 20mg C ommon mg mg 5-10 Spirit 00:00: - [facility] Bupivicaine Bupivicaine 2021-0 No 2.5mg Common Woodlyn Woodlyn 5-10 Spirit 00:00: - [facility] Bupivicaine Bupivicaine 2021-0 No 2.5mg Common Woodlyn Woodlyn 5-10 Spirit 00:00: - [facility] Bupivicaine Bupivicaine 2021-0 No 2.5mg Common Woodlyn Woodlyn 5-10 Spirit 00:00: - [facility] Kenalog Kenalog 2021-0 No 40mg Common (Triamcinol (Triamcinol 5-10 S pirit one) one) 00:00: - [facility] Hyalgan 20 Hyalgan 20 2021-0 No 20mg C ommon mg mg 5-10 Spirit 00:00: - [facility] Hyal[place] 20 Hyalgan 20 2021-0 No 20mg C ommon mg mg 5-10 Spirit 00:00: - [facility] Kenalog Kenalog 2021-0 No 40mg Common (Triamcinol (Triamcinol 5-10 S pirit one) one) 00:00: - [facility] Bupivicaine Bupivicaine 2021-0 No 2.5mg Common Woodlyn Woodlyn 5-10 Spirit 00:00: - [facility] Bupivicaine Bupivicaine 2021-0 No 2.5mg Common [facility] 00:00: - [facility] Kenalog Kenalog 2021-0 No 40mg Common (Triamcinol (Triamcinol 5-10 S pirit one) one) 00:00: - [facility] Hyalgan 20 Hyalgan 20 2021-0 No 20mg C ommon mg mg 5-10 [facility] 00:00: - [facility] Hyalgan 20 Hyalgan 20 2021-0 No 20mg C ommon mg mg 5-10 [facility] 00:00: - [facility] Kenalog Kenalog 2021-0 No 40mg Common (Triamcinol (Triamcinol 5-10 S pirit one) one) 00:00: - [facility] Kenalog Kenalog 2021-0 No 40mg Common (Triamcinol (Triamcinol 5-10 S pirit one) one) 00:00: - [facility] Bupivicaine Bupivicaine 2021-0 No 2.5mg Common [facility] [facility] 00:00: - [facility] Bupivicaine Bupivicaine 2021-0 No 2.5mg Common [facility] [facility] [facility] 00:00: - [facility] Hyalgan 20 Hyalgan 20 2021-0 No 20mg C ommon mg mg 5-10 [facility] 00:00: - [facility] Hyalgan 20 Hyalgan 20 2021-0 No 20mg C ommon mg mg 5-10 [facility] 00:00: - [facility] Kenalog Kenalog 2021-0 No 40mg Common (Triamcinol (Triamcinol 5-10 S pirit one) one) 00:00: - [facility] Bupivicaine Bupivicaine 2021-0 No 2.5mg Common [facility] 00:00: - [facility] Bupivicaine Bupivicaine 2021-0 No 2.5mg Common [facility] [facility] [facility]-10 [facility] 00:00: - [facility] Kenalog Kenalog 2021-0 No 40mg Common (Triamcinol (Triamcinol 5-10 S pirit one) one) 00:00: - [facility] Hyalgan 20 Hyalgan 20 2021-0 No 20mg C ommon mg mg 5-10 [facility] 00:00: - [facility] Hyalgan 20 Hyalgan 20 2021-0 No 20mg C ommon mg mg 5-10 [facility] 00:00: - [facility] Kenalog Kenalog 2021-0 No 40mg Common (Triamcinol (Triamcinol 5-10 S pirit one) one) 00:00: - [facility] Bupivicaine Bupivicaine 2021-0 No 2.5mg Common [facility] [facility] [facility] 00:00: - [facility] Bupivicaine Bupivicaine 2021-0 No 2.5mg Common [place] [facility] [facility] 00:00: - [facility] Kenalog Kenalog 0 No 40mg Common (Triamcinol (Triamcinol 5-10 S pirit one) one) 00:00: - [facility] Hyalgan 20 Hyalgan 20 2021-0 No 20mg C ommon mg mg 5-10 [facility] 00:00: - [facility] Hyalgan 20 Hyalgan 20 2021-0 No 20mg C ommon mg mg 5-10 [facility] 00:00: - [facility] Kenalog Kenalog 0 No 40mg Common (Triamcinol (Triamcinol 5-10 S pirit one) one) 00:00: - [facility] AirDuo AirDuo 2021-0 2022- No 1{puff} BID AirDuo RespiClick RespiClick 12-06 RespiClick 232/14 232/14 00:00: 00:00 232/14 232-14 232-14 00 :00 232-14 MCG/ACT MCG/ACT MCG/ACT AirDuo AirDuo 2021-0 2022- No 1{puff} BID AirDuo RespiClick RespiClick 12-06- RespiClick 232/14 232/14 00:00: 00:00 232/14 232-14 232-14 00 :00 232-14 MCG/ACT MCG/ACT MCG/ACT AirDuo AirDuo 2021-0 2022- No 1{puff} BID AirDuo RespiClick RespiClick 12-06- RespiClick 232/14 232/14 00:00: 00:00 232/14 232-14 232-14 00 :00 232-14 MCG/ACT MCG/ACT MCG/ACT AirDuo AirDuo 2022-0 2023- No 1{puff} BID AirDuo RespiClick RespiClick -01 03-11 RespiClick 232/14 232/14 00:00: 00:00 232/14 232-14 232-14 00 :00 232-14 MCG/ACT MCG/ACT MCG/ACT AirDuo AirDuo 2021-0 2023- No 1{puff} BID AirDuo RespiClick RespiClick -01 03- RespiClick 232/14 232/14 00:00: 00:00 232/14 232-14 232-14 00 :00 232-14 MCG/ACT MCG/ACT MCG/ACT AirDuo AirDuo 2021-0 2023- No 1{puff} BID AirDuo RespiClick RespiClick -01 03- RespiClick 232/14 232/14 00:00: 00:00 232/14 232-14 232-14 00 :00 232-14 MCG/ACT MCG/ACT MCG/ACT AirDuo AirDuo 202-0 2023- No 1{puff} BID AirDuo RespiClick RespiClick 12-06 RespiClick 232/14 232/14 00:00: 00:00 232/14 232-14 232-14 00 :00 232-14 MCG/ACT MCG/ACT MCG/ACT AirDuo AirDuo 2021-0 2023- No 1{puff} BID AirDuo RespiClick RespiClick 12-06- RespiClick 232/14 232/14 00:00: 00:00 232/14 232-14 232-14 00 :00 232-14 MCG/ACT MCG/ACT MCG/ACT AirDuo AirDuo 202-0 2023- No 1{puff} BID AirDuo RespiClick RespiClick 12-06- RespiClick 232/14 232/14 00:00: 00:00 232/14 232-14 232-14 00 :00 232-14 MCG/ACT MCG/ACT MCG/ACT AirDuo AirDuo 2021-0 2023- No 1{puff} BID AirDuo RespiClick RespiClick 12-06- RespiClick 232/14 232/14 00:00: 00:00 232/14 232-14 232-14 00 :00 232-14 MCG/ACT MCG/ACT MCG/ACT AirDuo AirDuo 2022-0 2023- No 1{puff} BID AirDuo RespiClick RespiClick -01 03- RespiClick 232/14 232/14 00:00: 00:00 232/14 232-14 232-14 00 :00 232-14 MCG/ACT MCG/ACT MCG/ACT AirDuo AirDuo 202-0 2023- No 1{puff} BID AirDuo RespiClick RespiClick -01 03- RespiClick 232/14 232/14 00:00: 00:00 232/14 232-14 232-14 00 :00 232-14 MCG/ACT MCG/ACT MCG/ACT AirDuo AirDuo 202-0 2023- No 1{puff} BID AirDuo RespiClick RespiClick 12-06 RespiClick 232/14 232/14 00:00: 00:00 232/14 232-14 232-14 00 :00 232-14 MCG/ACT MCG/ACT MCG/ACT AirDuo AirDuo 2022-0 2023- No 1{puff} BID AirDuo RespiClick RespiClick 12-06 RespiClick 232/14 232/14 00:00: 00:00 232/14 232-14 232-14 00 :00 232-14 MCG/ACT MCG/ACT MCG/ACT AirDuo AirDuo 2022-0 2023- No 1{puff} BID AirDuo RespiClick RespiClick 12-06- RespiClick 232/14 232/14 00:00: 00:00 232/14 232-14 232-14 00 :00 232-14 MCG/ACT MCG/ACT MCG/ACT AirDuo AirDuo 2022-0 2023- No 1{puff} BID AirDuo RespiClick RespiClick 12-06 RespiClick 232/14 232/14 00:00: 00:00 232/14 232-14 232-14 00 :00 232-14 MCG/ACT MCG/ACT MCG/ACT AirDuo AirDuo 2022-0 2023- No 1{puff} BID AirDuo RespiClick RespiClick 12-06 RespiClick 232/14 232/14 00:00: 00:00 232/14 232-14 232-14 00 :00 232-14 MCG/ACT MCG/ACT MCG/ACT AirDuo AirDuo 202-0 2023- No 1{puff} BID AirDuo RespiClick RespiClick 12-06 RespiClick 232/14 232/14 00:00: 00:00 232/14 232-14 232-14 00 :00 232-14 MCG/ACT MCG/ACT MCG/ACT AirDuo AirDuo 202-0 2023- No 1{puff} BID AirDuo RespiClick RespiClick 12-06 RespiClick 232/14 232/14 00:00: 00:00 232/14 232-14 232-14 00 :00 232-14 MCG/ACT MCG/ACT MCG/ACT AirDuo AirDuo 202-0 2023- No 1{puff} BID AirDuo RespiClick RespiClick 12-06 RespiClick 232/14 232/14 00:00: 00:00 232/14 232-14 232-14 00 :00 232-14 MCG/ACT MCG/ACT MCG/ACT AirDuo AirDuo 202-0 2023- No 1{puff} BID AirDuo RespiClick RespiClick 12-06 RespiClick 232/14 232/14 00:00: 00:00 232/14 232-14 232-14 00 :00 232-14 MCG/ACT MCG/ACT MCG/ACT AirDuo AirDuo 202-0 2023- No 1{puff} BID AirDuo RespiClick RespiClick 12-06 RespiClick 232/14 232/14 00:00: 00:00 232/14 232-14 232-14 00 :00 232-14 MCG/ACT MCG/ACT MCG/ACT AirDuo AirDuo 202-0 2023- No 1{puff} BID AirDuo RespiClick RespiClick 12-06 RespiClick 232/14 232/14 00:00: 00:00 232/14 232-14 232-14 00 :00 232-14 MCG/ACT MCG/ACT MCG/ACT AirDuo AirDuo 2022-0 2023- No 1{puff} BID AirDuo RespiClick RespiClick 12-06 RespiClick 232/14 232/14 00:00: 00:00 232/14 232-14 232-14 00 :00 232-14 MCG/ACT MCG/ACT MCG/ACT AirDuo AirDuo 2021-0 2023- No 1{puff} BID AirDuo RespiClick RespiClick 12-06 RespiClick 232/14 232/14 00:00: 00:00 232/14 232-14 232-14 00 :00 232-14 MCG/ACT MCG/ACT MCG/ACT AirDuo AirDuo 2021-0 2023- No 1{puff} BID AirDuo RespiClick RespiClick 12-06 RespiClick 232/14 232/14 00:00: 00:00 232/14 232-14 232-14 00 :00 232-14 MCG/ACT MCG/ACT MCG/ACT AirDuo AirDuo 202-0 2023- No 1{puff} BID AirDuo RespiClick RespiClick 12-06 RespiClick 232/14 232/14 00:00: 00:00 232/14 232-14 232-14 00 :00 232-14 MCG/ACT MCG/ACT MCG/ACT AirDuo AirDuo 2021-0 2022- No 1{puff} BID AirDuo RespiClick RespiClick 12-06 RespiClick 232/14 232/14 00:00: 00:00 232/14 232-14 232-14 00 :00 232-14 MCG/ACT MCG/ACT MCG/ACT AirDuo AirDuo 2021-0 2022- No 1{puff} BID AirDuo RespiClick RespiClick 12-06 RespiClick 232/14 232/14 00:00: 00:00 232/14 232-14 232-14 00 :00 232-14 MCG/ACT MCG/ACT MCG/ACT AirDuo AirDuo 2021-0 2022- No 1{puff} BID AirDuo RespiClick RespiClick 12-06 RespiClick 232/14 232/14 00:00: 00:00 232/14 232-14 232-14 00 :00 232-14 MCG/ACT MCG/ACT MCG/ACT AirDuo AirDuo 2021-0 2022- No 1{puff} BID AirDuo RespiClick RespiClick 12-06 RespiClick 232/14 232/14 00:00: 00:00 232/14 232-14 232-14 00 :00 232-14 MCG/ACT MCG/ACT MCG/ACT AirDuo AirDuo 2021-0 2- No 1{puff} BID AirDuo RespiClick RespiClick 12-06 RespiClick 232/14 232/14 00:00: 00:00 232/14 232-14 232-14 00 :00 232-14 MCG/ACT MCG/ACT MCG/ACT Trelegy Trelegy 2021-0 2- No 1{puff} QD Trelegy Ellipta Ellipta 4-28 07-27 Ellipta 200-62.5-25 200-62.5-25 00:00: 00:00 200-62.5-2 MCG/INH MCG/INH 00 :00 5 MCG/INH Trelegy Trelegy 2-0 2022- No 1{puff} QD Trelegy Ellipta Ellipta 4-28 07-27 Ellipta 200-62.5-25 200-62.5-25 00:00: 00:00 200-62.5-2 MCG/INH MCG/INH 00 :00 5 MCG/INH Trelegy Trelegy 2-0 2022- No 1{puff} QD Trelegy Ellipta Ellipta 4-28 07-27 Ellipta 200-62.5-25 200-62.5-25 00:00: 00:00 200-62.5-2 MCG/INH MCG/INH 00 :00 5 MCG/INH Trelegy Trelegy 2-0 2022- No 1{puff} QD Trelegy Ellipta Ellipta 4-28 07-27 Ellipta 200-62.5-25 200-62.5-25 00:00: 00:00 200-62.5-2 MCG/INH MCG/INH 00 :00 5 MCG/INH Trelegy Trelegy 2-0 2- No 1{puff} QD Trelegy Ellipta Ellipta 4-28 07-27 Ellipta 200-62.5-25 200-62.5-25 00:00: 00:00 200-62.5-2 MCG/INH MCG/INH 00 :00 5 MCG/INH Trelegy Trelegy 2021-0 2021- No 1{puff} QD Trelegy Ellipta Ellipta 11-28 Ellipta 200-62.5-25 200-62.5-25 00:00: 00:00 200-62.5-2 MCG/INH MCG/INH 00 :00 5 MCG/INH gabapentin 0 Yes 600 mg = 2 M emoria 300 MG Oral 9-30 cap, PO, l Capsule 20:29: QPM, # 60 Kamini nn 00 cap, 3 Refill(s), Pharmacy: [facility] #[id number], 172.72, cm, 05/02/21 15:03:00 CDT, Height, 97.273, kg, 05/02/21 15:03:00 CDT, Weight gabapentin Yes 600 mg = 2 M emoria 300 MG Oral 9-30 cap, PO, l Capsule 20:29: QPM, # 60 Kamini nn 00 cap, 3 Refill(s), Pharmacy: [facility] #[id number], 172.72, cm, 05/02/21 15:03:00 CDT, Height, 97.273, kg, 05/02/21 15:03:00 CDT, Weight Lorazepam 0 No See Memoria 0.5 MG Oral 9-07 Instructio l Tablet 14:55: ns, Take 1 Kamini nn [Ativan] 00 tab po 1 hour prior to MRI, may repeat q 15 min. if still anxious, # 5 tab, 0 Refill(s), Pharmacy: [facility] #[id number], 172.72, cm, 03/27/21 10:39:00 CDT, Height, 98.182, kg, 03/27/21 10:39:00 CDT, Weight Lorazepam 0 No See Memoria 0.5 MG Oral 9-07 Instructio l Tablet 14:55: ns, Take 1 Kamini nn [Ativan] 00 tab po 1 hour prior to MRI, may repeat q 15 min. if still anxious, # 5 tab, 0 Refill(s), Pharmacy: [facility] #[id number], 172.72, cm, 03/27/21 10:39:00 CDT, Height, 98.182, kg, 03/27/21 10:39:00 CDT, Weight Vitamin D3 0 Yes 0 Memoria 6-21 Refill(s) l 14:58: Mccracken 00 Vitamin D3 0 Yes 0 Memoria 6-21 Refill(s) l 14:58: Johnson 00 Vitamin C 2020-0 Yes Daily, 0 Abdiel princess 6-21 Refill(s) l 14:57: Aspirin 0 Yes 0 Memoria 6-21 Refill(s) l 14:57: Vitamin C 0 Yes Daily, 0 Abdiel princess 6-21 Refill(s) l 14:57: Aspirin 0 Yes 0 Memoria 6-21 Refill(s) l 14:57: Furosemide Yes 0 Memoria 40 MG Oral 6-21 Refill(s) l Tablet 14:42: 00 {2 (480 ML No 0 Memoria Magnesium 6-21 Refill(s) l Sulfate 14:42: Mccracken 0.0277 00 MEQ/ML / potassium sulfate 0.0374 MEQ/ML / sodium sulfate 0.257 MEQ/ML Oral Solution) } Pack [Suprep Bowel Prep Kit] Furosemide Yes 0 Memoria 40 MG Oral 6-21 Refill(s) l Tablet 14:42: 00 {2 (480 ML No 0 Memoria Magnesium 6-21 Refill(s) l Sulfate 14:42: Johnson 0.0277 00 MEQ/ML / potassium sulfate 0.0374 MEQ/ML / sodium sulfate 0.257 MEQ/ML Oral Solution) } Pack [Suprep Bowel Prep Kit] citalopram Yes 0 Memoria 10 mg oral 6-21 Refill(s) l tablet 14:41: Trelegy Yes 0 Memoria Ellipta 6-21 Refill(s) l inhalation 14:41: Johnson 00 omeprazole Yes 0 Memoria 40 mg oral 6-21 Refill(s) l delayed 14:41: release capsule amLODIPine 2020-0 Yes 0 Memoria 10 mg oral 6-21 Refill(s) l tablet 14:41: losartan 2020-0 Yes 0 Memoria 100 mg oral 6-21 Refill(s) l tablet 14:41: citalopram 2020-0 Yes 0 Memoria 10 mg oral 6-21 Refill(s) l tablet 14:41: Trelegy 2020-0 Yes 0 Memoria Ellipta 6-21 Refill(s) l inhalation 14:41: omeprazole 2020-0 Yes 0 Memoria 40 mg oral 6-21 Refill(s) l delayed 14:41: capsule amLODIPine 2020-0 Yes 0 Memoria 10 mg oral 6-21 Refill(s) l tablet 14:41: losartan 2020-0 Yes 0 Memoria 100 mg oral 6-21 Refill(s) l tablet 14:41: Hyalgan 20 Hyalgan 20 2020-0 No 20mg C ommon mg mg 5-11 [facility] 00:00: [facility] Hyalgan 20 Hyalgan 20 2020-0 No 20mg C ommon mg mg 5-11 [facility] 00:00: [facility] Hyalgan 20 Hyalgan 20 2020-0 No 20mg C ommon mg mg 5- Spirit 00:00: [facility] Hyalgan 20 Hyalgan 20 2020-0 No 20mg C ommon mg mg 5-11 [facility] 00:00: - [facility] Hyalgan 20 Hyalgan 20 2020-0 No 20mg C ommon mg mg 5-11 [facility] 00:00: - [facility] Hyalgan 20 Hyalgan 20 2020-0 No 20mg C ommon mg mg 5-11 [facility] 00:00: - [facility] Hyalgan 20 Hyalgan 20 2020-0 No 20mg C ommon mg mg 5-11 [facility] 00:00: - [facility] Hyalgan 20 Hyalgan 20 2020-0 No 20mg C ommon mg mg 5-11 [facility] 00:00: - [facility] Hyalgan 20 Hyalgan 20 2020-0 No 20mg C ommon mg mg 12-11 [facility] 00:00: - [facility] Hyalgan 20 Hyalgan 20 2020-0 No 20mg C ommon mg mg 12-11 [facility] 00:00: - [facility] Hyalgan 20 Hyalgan 20 2020-0 No 20mg C ommon mg mg 12-11 [facility] 00:00: - [facility] Hyalgan 20 Hyalgan 20 2020-0 No 20mg C ommon mg mg 12-11 [facility] 00:00: - [facility] Hyalgan 20 Hyalgan 20 2020-0 No 20mg C ommon mg mg 12-11 [facility] 00:00: - [facility] Hyalgan 20 Hyalgan 20 2020-0 No 20mg C ommon mg mg 12-11 [facility] 00:00: - [facility] Hyalgan 20 Hyalgan 20 2020-0 No 20mg C ommon mg mg 12-11 [facility] 00:00: - [facility] Hyalgan 20 Hyalgan 20 2020-0 No 20mg C ommon mg mg 12-11 [facility] 00:00: - [facility] Hyalgan 20 Hyalgan 20 2020-0 No 20mg C ommon mg mg 12-11 [facility] 00:00: - [facility] Hyalgan 20 Hyalgan 20 2020-0 No 20mg C ommon mg mg 12-11 [facility] 00:00: - [facility] Hyalgan 20 Hyalgan 20 2020-0 No 20mg C ommon mg mg 12-11 [facility] 00:00: - [facility] Hyalgan 20 Hyalgan 20 2020-0 No 20mg C ommon mg mg 12-11 [facility] 00:00: - [facility] Hyalgan 20 Hyalgan 20 2020-0 No 20mg C ommon mg mg 12-11 [facility] 00:00: - [facility] Hyalgan 20 Hyalgan 20 1-0 No 20mg C ommon mg mg 12-11 [facility] 00:00: - [facility] Hyalgan 20 Hyalgan 20 2020-0 No 20mg C ommon mg mg 12-11 [facility] 00:00: - [facility] Hyalgan 20 Hyalgan 20 1-0 No 20mg C ommon mg mg 12-11 [facility] 00:00: - [facility] Hyalgan 20 Hyalgan 20 1-0 No 20mg C ommon mg mg 12-11 [facility] 00:00: - [facility] Hyalgan 20 Hyalgan 20 1-0 No 20mg C ommon mg mg 12-11 [facility] 00:00: - [facility] Hyalgan 20 Hyalgan 20 1-0 No 20mg C ommon mg mg 12-11 [facility] 00:00: - [facility] Hyalgan 20 Hyalgan 20 2020-0 No 20mg C ommon mg mg 12-11 [facility] 00:00: - [facility] Hyalgan 20 Hyalgan 20 2020-0 No 20mg C ommon mg mg 12-11 [facility] 00:00: - [facility] Hyalgan 20 Hyalgan 20 2020-0 No 20mg C ommon mg mg 12-11 [facility] 00:00: - [facility] Hyalgan 20 Hyalgan 20 2020-0 No 20mg C ommon mg mg 12-11 [facility] 00:00: - [facility] Hyalgan 20 Hyalgan 20 2020-0 No 20mg C ommon mg mg 12-11 [facility] 00:00: - [facility] Hyalgan 20 Hyalgan 20 1-0 No 20mg C ommon mg mg 12-11 [facility] 00:00: - [facility] Hyalgan 20 Hyalgan 20 1-0 No 20mg C ommon mg mg 12-11 [facility] 00:00: - [facility] Hyalgan 20 Hyalgan 20 1-0 No 20mg C ommon mg mg 12-11 [facility] 00:00: - [facility] Hyalgan 20 Hyalgan 20 1-0 No 20mg C ommon mg mg 12-11 [facility] 00:00: - [facility] Hyalgan 20 Hyalgan 20 1-0 No 20mg C ommon mg mg 12-11 [facility] 00:00: - [facility] Hyalgan 20 Hyalgan 20 1-0 No 20mg C ommon mg mg 12-11 [facility] 00:00: - [facility] Hyalgan 20 Hyalgan 20 2020-0 No 20mg C ommon mg mg 12-11 [facility] 00:00: - [facility] Hyalgan 20 Hyalgan 20 1-0 No 20mg C ommon mg mg 12-11 [facility] 00:00: - [facility] Hyalgan 20 Hyalgan 20 2020-0 No 20mg C ommon mg mg 12-11 [facility] 00:00: - [facility] Hyalgan 20 Hyalgan 20 2020-0 No 20mg C ommon mg mg 12-11 [facility] 00:00: - [facility] Hyalgan 20 Hyalgan 20 2020-0 No 20mg C ommon mg mg 12-11 [facility] 00:00: - [facility] Hyalgan 20 Hyalgan 20 2020-0 No 20mg C ommon mg mg 12-11 [facility] 00:00: - [facility] Hyal[place] 20 Hyalgan 20 2020-0 No 20mg C ommon mg mg 12-11 [facility] 00:00: - [facility] Hyalgan 20 Hyalgan 20 2020-0 No 20mg C ommon mg mg 12-11 [facility] 00:00: - [facility] Hyalgan 20 Hyalgan 20 2020-0 No 20mg C ommon mg mg 12-11 [facility] 00:00: - [facility] Hyalgan 20 Hyalgan 20 2020-0 No 20mg C ommon mg mg 12-11 [facility] 00:00: - [facility] Hyalgan 20 Hyalgan 20 1-0 No 20mg C ommon mg mg 12-11 [facility] 00:00: - [facility] Hyalgan 20 Hyalgan 20 1-0 No 20mg C ommon mg mg 12-11 [facility] 00:00: - [facility] Hyalgan 20 Hyalgan 20 1-0 No 20mg C ommon mg mg 12-11 [facility] 00:00: - [facility] Hyalgan 20 Hyalgan 20 2020-0 No 20mg C ommon mg mg 12-11 [facility] 00:00: - [facility] Hyalgan 20 Hyalgan 20 2021-0 No 20mg C ommon mg mg 12-11 [facility] 00:00: - [facility] Hyalgan 20 Hyalgan 20 2020-0 No 20mg C ommon mg mg 12-11 [facility] 00:00: - [facility] Hyalgan 20 Hyalgan 20 2020-0 No 20mg C ommon mg mg 12-11 [facility] 00:00: - [facility] Hyalgan 20 Hyalgan 20 2020-0 No 20mg C ommon mg mg 12-11 [facility] 00:00: - [facility] Hyalgan 20 Hyalgan 20 2020-0 No 20mg C ommon mg mg 12-11 [facility] 00:00: - [facility] Hyalgan 20 Hyalgan 20 2020-0 No 20mg C ommon mg mg 12-11 [facility] 00:00: - [facility] Hyalgan 20 Hyalgan 20 2020-0 No 20mg C ommon mg mg 12-11 [facility] 00:00: - [facility] Hyal[place] 20 Hyalgan 20 2020-0 No 20mg C ommon mg mg 12-11 [facility] 00:00: - [facility] Hyalgan 20 Hyalgan 20 2020-0 No 20mg C ommon mg mg 12-11 [facility] 00:00: - [facility] Hyalgan 20 Hyalgan 20 2020-0 No 20mg C ommon mg mg 12-11 [facility] 00:00: - [facility] Hyalgan 20 Hyalgan 20 2020-0 No 20mg C ommon mg mg 12-11 [facility] 00:00: - [facility] Hyal[place] 20 Hyalgan 20 2020-0 No 20mg C ommon mg mg 12-11 [facility] 00:00: - [facility] Hyal[place] 20 Hyalgan 20 2020-0 No 20mg C ommon mg mg 12-11 [facility] 00:00: - [facility] Hyal[place] 20 Hyalgan 20 2020-0 No 20mg C ommon mg mg 12-11 [facility] 00:00: - [facility] Hy[place] 20 Hyalgan 20 2020-0 No 20mg C ommon mg mg 12-11 [facility] 00:00: - [facility] Hyal[place] 20 Hyalgan 20 2020-0 No 20mg C ommon mg mg 12-11 [facility] 00:00: - [facility] Hyal[place] 20 Hyalgan 20 2020-0 No 20mg C ommon mg mg 12-11 [facility] 00:00: - [facility] Hyal[place] 20 Hyalgan 20 2020-0 No 20mg C ommon mg mg 12-11 [facility] 00:00: - [facility] Hyal[place] 20 Hyalgan 20 2020-0 No 20mg C ommon mg mg 12-11 [facility] 00:00: - [facility] Hyal[place] 20 Hyalgan 20 2020-0 No 20mg C ommon mg mg 12-11 [facility] 00:00: - [facility] Hyal[place] 20 Hyalgan 20 2020-0 No 20mg C ommon mg mg 12-11 [facility] 00:00: - [facility] Hyal[place] 20 Hyalgan 20 2020-0 No 20mg C ommon mg mg 12-11 [facility] 00:00: - [facility] Hyalgan 20 Hyalgan 20 2020-0 No 20mg C ommon mg mg 12-11 [facility] 00:00: - [facility] Hyal[place] 20 Hyalgan 20 2020-0 No 20mg C ommon mg mg 12-11 [facility] 00:00: - [facility] Hyal[place] 20 Hyalgan 20 2020-0 No 20mg C ommon mg mg 12-11 [facility] 00:00: - [facility] [place]al[place] 20 Hyalgan 20 2020-0 No 20mg C ommon mg mg 12-11 [facility] 00:00: - [facility] Hyal[place] 20 Hyalgan 20 2020-0 No 20mg C ommon mg mg 12-11 [facility] 00:00: - [facility] Hyal[place] 20 Hyalgan 20 2020-0 No 20mg C ommon mg mg 12-11 [facility] 00:00: - [facility] [place] 20 Hyalgan 20 2020-0 No 20mg C ommon mg mg 12-06 [facility] 00:00: - [facility] Hyal[place] 20 Hyalgan 20 2020-0 No 20mg C ommon mg mg 12-06 [facility] 00:00: - [facility] Hyal[place] 20 Hyalgan 20 2020-0 No 20mg C ommon mg mg 12-06 [facility] 00:00: - [facility] Hy[place] 20 Hyalgan 20 2020-0 No 20mg C ommon mg mg 12-06 [facility] 00:00: - [facility] [place] 20 Hyalgan 20 2020-0 No 20mg C ommon mg mg 12-06 [facility] 00:00: - [facility] [place] 20 Hyalgan 20 2020-0 No 20mg C ommon mg mg 12-06 [facility] 00:00: - [facility] [place] 20 Hyalgan 20 2020-0 No 20mg C ommon mg mg 12-06 [facility] 00:00: - [facility] [place] 20 Hyalgan 20 2020-0 No 20mg C ommon mg mg 12-06 [facility] 00:00: - [facility] [place] 20 Hyalgan 20 2020-0 No 20mg C ommon mg mg 12-06 [facility] 00:00: - [facility] [place] 20 Hyalgan 20 2020-0 No 20mg C ommon mg mg 12-06 [facility] 00:00: - [facility] [place] 20 Hyalgan 20 2020-0 No 20mg C om[facility] mg mg 12-06 [facility] 00:00: - [facility] [place] 20 [place] 20 2020-0 No 20mg C [facility] mg mg 12-06 [facility] 00:00: - [facility] [place] 20 [place] 20 2020-0 No 20mg C [facility] mg 12-06 [facility] 00:00: - [facility] [place] 20 [place] 20 2020-0 No 20mg C [facility] mg mg 12-06 [facility] 00:00: - [facility] [place] 20 [place] 20 2020-0 No 20mg C [facility] mg mg 12-06 [facility] 00:00: - [facility] [place] 20 [place] 20 2020-0 No 20mg C [facility] mg mg 12-06 [facility] 00:00: - [facility] [place] 20 [place] 20 2020-0 No 20mg C [facility] mg mg 12-06 [facility] 00:00: - [facility] [place] 20 [place] 20 2020-0 No 20mg C [facility] mg mg 12-06 [facility] 00:00: - [facility] [place] 20 [place] 20 2020-0 No 20mg C [facility] mg mg 12-06 [facility] 00:00: - [facility] [place] 20 [place] 20 2020-0 No 20mg C [facility] mg mg 12-06 [facility] 00:00: - [facility] [place] 20 [place] 20 2020-0 No 20mg C [facility] mg mg 12-06 [facility] 00:00: - [facility] [place] 20 2020-0 No 20mg C [facility] mg mg 12-06 [facility] 00:00: - [facility] [place] 20 [place] 20 2020-0 No 20mg C [facility] mg mg 12-06 [facility] 00:00: - [facility] [place] 20 [place] 20 2020-0 No 20mg C [facility] mg mg 12-06 [facility] 00:00: - [facility] [place] 20 [place] 20 2020-0 No 20mg C [facility] mg mg 12-06 [facility] 00:00: - [facility] [place] 20 [place] 20 2020-0 No 20mg C [facility] mg mg 12-06 [facility] 00:00: - [facility] [place] 20 [place] 20 2020-0 No 20mg C [facility] mg mg 12-06 [facility] 00:00: - [facility] [place] 20 [place] 20 2020-0 No 20mg C [facility] mg mg 12-06 [facility] 00:00: - [facility] [place] 20 [place] 20 2020-0 No 20mg C [facility] mg mg 12-06 [facility] 00:00: - [facility] [place] 20 2020-0 No 20mg C [facility] mg mg 12-06 [facility] 00:00: - [facility] [place] 20 [place] 20 2020-0 No 20mg C [facility] mg mg 12-06 [facility] 00:00: - [facility] [place] 20 [place] 20 2020-0 No 20mg C [facility] mg mg 12-06 [facility] 00:00: - [facility] [place] 20 [place] 20 2020-0 No 20mg C [facility] mg mg 12-06 [facility] 00:00: - [facility] [place] 20 [place] 20 2020-0 No 20mg C [facility] mg mg 12-06 [facility] 00:00: - [facility] [place] 20 [place] 20 2020-0 No 20mg C [facility] mg mg 12-06 [facility] 00:00: - [facility] [place] 20 [place] 20 2020-0 No 20mg C [facility] mg mg 12-06 [facility] 00:00: - [facility] [place] 20 [place] 20 2020-0 No 20mg C [facility] mg mg 12-06 [facility] 00:00: - [facility] [place] 20 [place] 20 2020-0 No 20mg C [facility] mg mg 12-06 [facility] 00:00: - [facility] [place] 20 [place] 20 2020-0 No 20mg C [facility] mg mg 12-06 [facility] 00:00: - [facility] [place] 20 [place] 20 2020-0 No 20mg C [facility] mg mg 12-06 [facility] 00:00: - [facility] [place] 20 [place] 20 2020-0 No 20mg C [facility] mg mg 12-06 [facility] 00:00: - [facility] [place] 20 2020-0 No 20mg C [facility] mg mg 12-06 [facility] 00:00: - [facility] [place] 20 [place] 20 2020-0 No 20mg C [facility] mg mg 12-06 [facility] 00:00: - [facility] [place] 20 [place] 20 2020-0 No 20mg C [facility] mg mg 12-06 [facility] 00:00: - [facility] [place] 20 [place] 20 1-0 No 20mg C [facility] mg mg 12-06 [facility] 00:00: - [facility] [place] 20 [place] 20 2020-0 No 20mg C [facility] mg mg 12-06 [facility] 00:00: - [facility] [place] 20 [place] 20 2020-0 No 20mg C [facility] mg mg 12-06 [facility] 00:00: - [facility] [place] 20 [place] 20 2020-0 No 20mg C [facility] mg mg 12-06 [facility] 00:00: - [facility] [place] 20 [place] 20 2020-0 No 20mg C [facility] mg mg 12-06 [facility] 00:00: - [facility] [place] 20 [place] 20 2020-0 No 20mg C [facility] mg mg 12-06 [facility] 00:00: - [facility] [place] 20 [place] 20 2020-0 No 20mg C [facility] mg mg 12-06 [facility] 00:00: - [facility] [place] 20 [place] 20 2020-0 No 20mg C [facility] mg mg 12-06 [facility] 00:00: - [facility] [place] 20 [place] 20 2020-0 No 20mg C [facility] mg mg 12-06 [facility] 00:00: - [facility] [place] 20 [place] 20 2020-0 No 20mg C [facility] mg mg 12-06 [facility] 00:00: - [facility] [place] 20 [place] 20 2020-0 No 20mg C [facility] mg mg 12-06 [facility] 00:00: - [facility] [place] 20 [place] 20 2020-0 No 20mg C [facility] mg mg 12-06 [facility] 00:00: - [facility] [place] 20 [place] 20 2020-0 No 20mg C [facility] mg mg 12-06 [facility] 00:00: - [facility] [place] 20 [place] 20 2020-0 No 20mg C [facility] mg mg 12-06 [facility] 00:00: - [facility] [place] 20 [place] 20 2020-0 No 20mg C [facility] mg mg 12-06 [facility] 00:00: - [facility] [place] 20 [place] 20 2020-0 No 20mg C [facility] mg mg 12-06 [facility] 00:00: - [facility] [place] 20 [place] 20 2020-0 No 20mg C [facility] mg mg 12-06 [facility] 00:00: - [facility] [place] 20 [place] 20 2020-0 No 20mg C [facility] mg mg 12-06 [facility] 00:00: - [facility] [place] 20 [place] 20 2020-0 No 20mg C [facility] mg mg 12-06 [facility] 00:00: - [facility] [place] 20 [place] 20 2020-0 No 20mg C [facility] mg mg 12-06 [facility] 00:00: - [facility] [place] 20 [place] 20 2020-0 No 20mg C [facility] mg mg 12-06 [facility] 00:00: - [facility] [place] 20 [place] 20 2020-0 No 20mg C [facility] mg mg 12-06 [facility] 00:00: - [facility] [place] 20 [place] 20 2020-0 No 20mg C [facility] mg mg 12-06 [facility] 00:00: - [facility] [place] 20 [place] 20 2020-0 No 20mg C [facility] mg mg 12-06 [facility] 00:00: - [facility] [place] 20 [place] 20 2020-0 No 20mg C [facility] mg mg 12-06 [facility] 00:00: - [facility] [place] 20 [place] 20 2020-0 No 20mg C [facility] mg mg 12-06 [facility] 00:00: - [facility] [place] 20 [place] 20 2020-0 No 20mg C [facility] mg mg 12-06 [facility] 00:00: - [facility] [place] 20 [place] 20 2020-0 No 20mg C [facility] mg mg 12-06 [facility] 00:00: - [facility] [place] 20 [place] 20 2020-0 No 20mg C [facility] mg mg 12-06 [facility] 00:00: - [facility] [place] 20 [place] 20 2020-0 No 20mg C [facility] mg mg 12-06 [facility] 00:00: - [facility] [place] 20 [place] 20 2020-0 No 20mg C [facility] mg mg 12-06 [facility] 00:00: - [facility] [place] 20 [place] 20 2020-0 No 20mg C [facility] mg mg 12-06 [facility] 00:00: - [facility] [place] 20 [place] 20 2020-0 No 20mg C [facility] mg mg 12-06 [facility] 00:00: - [facility] [place] 20 [place] 20 2020-0 No 20mg C [facility] mg mg 12-06 [facility] 00:00: - [facility] [place] 20 [place] 20 2020-0 No 20mg C [facility] mg mg 12-06 [facility] 00:00: - [facility] [place] 20 [place] 20 2020-0 No 20mg C [facility] mg mg 12-06 [facility] 00:00: - [facility] Bupivicaine Bupivicaine 2020-0 No 2.5mg Common [place] - [facility] 00:00: - [facility] [place] Kenalog 2020-0 No 40mg Common (Triamcinol (Triamcinol 4-22 S pirit one) one) 00:00: - [facility] Bupivicaine Bupivicaine 2020-0 No 2.5mg Common [place] 4-22 [facility] 00:00: - [facility] [place] 20 [place] 20 2020-0 No 20mg C [facility] mg mg 11-22 [facility] 00:00: - [facility] [place] 20 [place] 20 2020-0 No 20mg C [facility] mg mg 11-22 [facility] 00:00: - [facility] [place] Kenalog 2020-0 No 40mg Common (Triamcinol (Triamcinol 4-22 S pirit one) one) 00:00: - [facility] Bupivicaine Bupivicaine 2020-0 No 2.5mg [facility] [place] 4-22 [facility] 00:00: - [facility] [place] Kenalog 2020-0 No 40mg Common (Triamcinol (Triamcinol 4-22 S pirit one) one) 00:00: - [facility] Bupivicaine Bupivicaine 2020-0 No 2.5mg [facility] [place] 4-22 [facility] 00:00: - [facility] [place] 20 [place] 20 2020-0 No 20mg C [facility] mg mg 4-22 [facility] 00:00: - [facility] [place] 20 [place] 20 2020-0 No 20mg C [facility] mg mg 4-22 [facility] 00:00: - [facility] [place] Kenalog 2020-0 No 40mg Common (Triamcinol (Triamcinol 4-22 S pirit one) one) 00:00: - [facility] Bupivicaine Bupivicaine 2020-0 No 2.5mg [facility] [place] 4-22 [facility] 00:00: - [facility] [place] Kenalog 2020-0 No 40mg Common (Triamcinol (Triamcinol 4-22 S pirit one) one) 00:00: - [facility] Bupivicaine Bupivicaine 2020-0 No 2.5mg [facility] [place] 4-22 [facility] 00:00: - [facility] [place] 20 [place] 20 2020-0 No 20mg C [facility] mg mg 4-22 [facility] 00:00: - [facility] [place] 20 [place] 20 2020-0 No 20mg C [facility] mg mg 4-22 [facility] 00:00: - [facility] [place] Kenalog 2020-0 No 40mg Common (Triamcinol (Triamcinol 4-22 S pirit one) one) 00:00: - [facility] Bupivicaine Bupivicaine 2020-0 No 2.5mg [facility] [place] 4-22 [facility] 00:00: - [facility] [place] Kenalog 2020-0 No 40mg Common (Triamcinol (Triamcinol 4-22 S pirit one) one) 00:00: - [facility] Bupivicaine Bupivicaine 2020-0 No 2.5mg [facility] [place] 4-22 [facility] 00:00: - [facility] [place] 20 [place] 20 2020-0 No 20mg C [facility] mg mg 4-22 [facility] 00:00: - [facility] [place] 20 [place] 20 2020-0 No 20mg C [facility] mg mg 4-22 [facility] 00:00: - [facility] [place] Kenalog 2020-0 No 40mg Common (Triamcinol (Triamcinol 4-22 S pirit one) one) 00:00: - [facility] Bupivicaine Bupivicaine 2020-0 No 2.5mg [facility] [place] 4-22 [facility] 00:00: - [facility] [place] Kenalog 2020-0 No 40mg Common (Triamcinol (Triamcinol 4-22 S pirit one) one) 00:00: - [facility] Bupivicaine Bupivicaine 2020-0 No 2.5mg [facility] [place] 4-22 [facility] 00:00: - [facility] [place] 20 [place] 20 2020-0 No 20mg C [facility] mg mg 4-22 [facility] 00:00: - [facility] [place] 20 [place] 20 2020-0 No 20mg C [facility] mg mg 4-22 [facility] 00:00: - [facility] [place] Kenalog 2020-0 No 40mg Common (Triamcinol (Triamcinol 4-22 S pirit one) one) 00:00: - [facility] Bupivicaine Bupivicaine 2020-0 No 2.5mg [facility] [place] 4-22 [facility] 00:00: - [facility] [place] Kenalog 2020-0 No 40mg Common (Triamcinol (Triamcinol 4-22 S pirit one) one) 00:00: - [facility] Bupivicaine Bupivicaine 2020-0 No 2.5mg [facility] [place] 4-22 [facility] 00:00: - [facility] [place] 20 [place] 20 2020-0 No 20mg C [facility] mg mg 4-22 [facility] 00:00: - [facility] [place] 20 [place] 20 2020-0 No 20mg C [facility] mg mg 4-22 [facility] 00:00: - [facility] [place] Kenalog 2020-0 No 40mg Common (Triamcinol (Triamcinol 4-22 S pirit one) one) 00:00: - [facility] Bupivicaine Bupivicaine 2020-0 No 2.5mg [facility] [place] 4-22 [facility] 00:00: - [facility] [place] Kenalog 2020-0 No 40mg Common (Triamcinol (Triamcinol 4-22 S pirit one) one) 00:00: - [facility] Bupivicaine Bupivicaine 2020-0 No 2.5mg [facility] [place] 4-22 [facility] 00:00: - [facility] [place] 20 [place] 20 2020-0 No 20mg C [facility] mg mg 4-22 [facility] 00:00: - [facility] [place] 20 [place] 20 2020-0 No 20mg C [facility] mg mg 4-22 [facility] 00:00: - [facility] [place] Ken[place]og 2020-0 No 40mg Common (Triamcinol (Triamcinol 4-22 S pirit one) one) 00:00: - [facility] Bupivicaine Bupivicaine 2020-0 No 2.5mg [facility] [place] 4-22 [facility] 00:00: - [facility] [place] Kenalog 2020-0 No 40mg Common (Triamcinol (Triamcinol 4-22 S pirit one) one) 00:00: - [facility] Bupivicaine Bupivicaine 2020-0 No 2.5mg [facility] [place] 4-22 [facility] 00:00: - [facility] [place] 20 [place] 20 2020-0 No 20mg C [facility] mg mg 4-22 [facility] 00:00: - [facility] [place] 20 [place] 20 2020-0 No 20mg C [facility] mg mg 4-22 [facility] 00:00: - [facility] [place] Kenalog 2020-0 No 40mg Common (Triamcinol (Triamcinol 4-22 S pirit one) one) 00:00: - [facility] Bupivicaine Bupivicaine 2020-0 No 2.5mg [facility] [place] 4-22 [facility] 00:00: - [facility] [place] Kenalog 2020-0 No 40mg Common (Triamcinol (Triamcinol 4-22 S pirit one) one) 00:00: - [facility] Bupivicaine Bupivicaine 2020-0 No 2.5mg [facility] [place] 4-22 [facility] 00:00: - [facility] [place] 20 [place] 20 2020-0 No 20mg C [facility] mg mg 4-22 [facility] 00:00: - [facility] [place] 20 [place] 20 2020-0 No 20mg C [facility] mg mg 4-22 [facility] 00:00: - [facility] [place] Kenalog 2020-0 No 40mg Common (Triamcinol (Triamcinol 4-22 S pirit one) one) 00:00: - [facility] Bupivicaine Bupivicaine 2020-0 No 2.5mg [facility] [place] 4-22 [facility] 00:00: - [facility] [place] Kenalog 2020-0 No 40mg Common (Triamcinol (Triamcinol 4-22 S pirit one) one) 00:00: - [facility] Bupivicaine Bupivicaine 2020-0 No 2.5mg [facility] [place] 4-22 [facility] 00:00: - [facility] [place] 20 [place] 20 2020-0 No 20mg C [facility] mg mg 4-22 [facility] 00:00: - [facility] [place] 20 [place] 20 2020-0 No 20mg C [facility] mg mg 4-22 [facility] 00:00: - [facility] [place] Kenalog 2020-0 No 40mg Common (Triamcinol (Triamcinol 4-22 S pirit one) one) 00:00: - [facility] Bupivicaine Bupivicaine 2020-0 No 2.5mg [facility] [place] 4-22 [facility] 00:00: - [facility] [place] Kenalog 2020-0 No 40mg Common (Triamcinol (Triamcinol 4-22 S pirit one) one) 00:00: - [facility] Bupivicaine Bupivicaine 2020-0 No 2.5mg Common [place] 4-22 [facility] 00:00: - [facility] [place] 20 [place] 20 2020-0 No 20mg C [facility] mg mg 4-22 [facility] 00:00: - [facility] [place] 20 [place] 20 2020-0 No 20mg C [facility] mg mg 4-22 [facility] 00:00: - [facility] [place] Kenalog 2020-0 No 40mg Common (Triamcinol (Triamcinol 4-22 S pirit one) one) 00:00: - [facility] Bupivicaine Bupivicaine 2020-0 No 2.5mg Common [place] 4-22 [facility] 00:00: - [facility] [place] Kenalog 2020-0 No 40mg Common (Triamcinol (Triamcinol 4-22 S pirit one) one) 00:00: - [facility] Bupivicaine Bupivicaine 2020-0 No 2.5mg [facility] [place] 4-22 [facility] 00:00: - [facility] Bupivicaine Bupivicaine 2020-0 No 2.5mg [facility] [place] 4-22 [facility] 00:00: - [facility] [place] Kenalog 2020-0 No 40mg Common (Triamcinol (Triamcinol 4-22 S pirit one) one) 00:00: - [facility] Bupivicaine Bupivicaine 2020-0 No 2.5mg Common [place] 4-22 [facility] 00:00: - [facility] [place] 20 [place] 20 2020-0 No 20mg C [facility] mg mg 4-22 [facility] 00:00: - [facility] [place] 20 [place] 20 2020-0 No 20mg C [facility] mg mg 4-22 [facility] 00:00: - [facility] [place] 20 [place] 20 2020-0 No 20mg C [facility] mg mg 4-22 [facility] 00:00: - [facility] [place] Kenalog 2020-0 No 40mg Common (Triamcinol (Triamcinol 4-22 S pirit one) one) 00:00: - [facility] [place] 20 [place] 20 2020-0 No 20mg C [facility] mg mg 4-22 [facility] 00:00: - [facility] Bupivicaine Bupivicaine 2020-0 No 2.5mg Common [place] 4-22 [facility] 00:00: - [facility] [place] Kenalog 2020-0 No 40mg Common (Triamcinol (Triamcinol 4-22 S pirit one) one) 00:00: - [facility] Bupivicaine Bupivicaine 2020-0 No 2.5mg Common [place] 4-22 [facility] 00:00: - [facility] [place] 20 [place] 20 2020-0 No 20mg C [facility]mon mg mg 4-22 [facility] 00:00: - [facility] [place] Kenalog 2020-0 No 40mg Common (Triamcinol (Triamcinol 4-22 S pirit one) one) 00:00: - [facility] [place] 20 [place] 20 2020-0 No 20mg C [facility] mg mg 4-22 [facility] 00:00: - [facility] Bupivicaine Bupivicaine 2020-0 No 2.5mg Common [place] 4-22 [facility] 00:00: - [facility] [place] Kenalog 2020-0 No 40mg Common (Triamcinol (Triamcinol 4-22 S pirit one) one) 00:00: - [facility] [place] Kenalog 2020-0 No 40mg Common (Triamcinol (Triamcinol 4-22 S pirit one) one) 00:00: - [facility] Bupivicaine Bupivicaine 2020-0 No 2.5mg Common [place] 4-22 [facility] 00:00: - [facility] [place] 20 [place] 20 2020-0 No 20mg C [facility]mon mg mg 4-22 [facility] 00:00: - [facility] [place] Kenalog 2020-0 No 40mg Common (Triamcinol (Triamcinol 4-22 S pirit one) one) 00:00: - [facility] [place] 20 [place] 20 2020-0 No 20mg C [facility] mg mg 4-22 [facility] 00:00: - [facility] Bupivicaine Bupivicaine 2020-0 No 2.5mg [facility] [place] 4-22 [facility] 00:00: - [facility] [place] Kenalog 2020-0 No 40mg Common (Triamcinol (Triamcinol 4-22 S pirit one) one) 00:00: - [facility] Bupivicaine Bupivicaine 2020-0 No 2.5mg Common [place] 4-22 [facility] 00:00: - [facility] [place] 20 [place] 20 2020-0 No 20mg C [facility]mon mg mg 4-22 [facility] 00:00: - [facility] [place] Kenalog 2020-0 No 40mg Common (Triamcinol (Triamcinol 4-22 S pirit one) one) 00:00: - [facility] [place] 20 [place] 20 2020-0 No 20mg C [facility]mon mg mg 4-22 [facility] 00:00: - [facility] Bupivicaine Bupivicaine 2020-0 No 2.5mg [facility] [place] 4-22 [facility] 00:00: - [facility] [place] Kenalog 2020-0 No 40mg Common (Triamcinol (Triamcinol 4-22 S pirit one) one) 00:00: - [facility] Bupivicaine Bupivicaine 2020-0 No 2.5mg Common [place] 4-22 [facility] 00:00: - [facility] [place] 20 [place] 20 2020-0 No 20mg C [facility]mon mg mg 4-22 [facility] 00:00: - [facility] [place] Kenalog 2020-0 No 40mg Common (Triamcinol (Triamcinol 4-22 S pirit one) one) 00:00: - [facility] [place] 20 [place] 20 2020-0 No 20mg C [facility] mg mg 4-22 [facility] 00:00: - [facility] Bupivicaine Bupivicaine 2020-0 No 2.5mg Common [place] 4-22 [facility] 00:00: - [facility] [place] Kenalog 2020-0 No 40mg Common (Triamcinol (Triamcinol 4-22 S pirit one) one) 00:00: - [facility] Bupivicaine Bupivicaine 2020-0 No 2.5mg Common [place] 4-22 [facility] 00:00: - [facility] [place] 20 [place] 20 2020-0 No 20mg C [facility]mon mg mg 4-22 [facility] 00:00: - [facility] [place] Kenalog 2020-0 No 40mg Common (Triamcinol (Triamcinol 4-22 S pirit one) one) 00:00: - [facility] [place] 20 [place] 20 2020-0 No 20mg C [facility]mon mg mg 4-22 [facility] 00:00: - [facility] Bupivicaine Bupivicaine 2020-0 No 2.5mg [facility] [place] 4-22 [facility] 00:00: - [facility] [place] Kenalog 2020-0 No 40mg Common (Triamcinol (Triamcinol 4-22 S pirit one) one) 00:00: - [facility] Bupivicaine Bupivicaine 2020-0 No 2.5mg Common [place] 4-22 [facility] 00:00: - [facility] [place] 20 [place] 20 2020-0 No 20mg C [facility] mg mg 4-22 [facility] 00:00: - [facility] [place] Kenalog 2020-0 No 40mg Common (Triamcinol (Triamcinol 4-22 S pirit one) one) 00:00: - [facility] [place] 20 [place] 20 2020-0 No 20mg C [facility]mon mg mg 4-22 [facility] 00:00: - [facility] Bupivicaine Bupivicaine 2020-0 No 2.5mg [facility] [place] 4-22 [facility] 00:00: - [facility] [place] Kenalog 2020-0 No 40mg Common (Triamcinol (Triamcinol 4-22 S pirit one) one) 00:00: - [facility] Bupivicaine Bupivicaine 2020-0 No 2.5mg [facility] [place] 4-22 [facility] 00:00: - [facility] [place] 20 [place] 20 2020-0 No 20mg C [facility] mg mg 4-22 [facility] 00:00: - [facility] [place] Kenalog 2020-0 No 40mg Common (Triamcinol (Triamcinol 4-22 S pirit one) one) 00:00: - [facility] [place] 20 [place] 20 2020-0 No 20mg C [facility] mg mg 4-22 [facility] 00:00: - [facility] Bupivicaine Bupivicaine 2020-0 No 2.5mg [facility] [place] 4-22 [facility] 00:00: - [facility] [place] Kenalog 2020-0 No 40mg Common (Triamcinol (Triamcinol 4-22 S pirit one) one) 00:00: - [facility] Bupivicaine Bupivicaine 2020-0 No 2.5mg [facility] [place] 4-22 [facility] 00:00: - [facility] Bupivicaine Bupivicaine 2020-0 No 2.5mg [facility] [place] 4-22 [facility] 00:00: - [facility] [place] 20 [place] 20 2020-0 No 20mg C [facility]mon mg mg 4-22 [facility] 00:00: - [facility] [place] Kenalog 2020-0 No 40mg Common (Triamcinol (Triamcinol 4-22 S pirit one) one) 00:00: - [facility] [place] 20 [place] 20 2020-0 No 20mg C [facility]mon mg mg 4-22 [facility] 00:00: - [facility] [place] Kenalog 2020-0 No 40mg Common (Triamcinol (Triamcinol 4-22 S pirit one) one) 00:00: - [facility] Bupivicaine Bupivicaine 2020-0 No 2.5mg Common [place] 4-22 [facility] 00:00: - [facility] Bupivicaine Bupivicaine 2020-0 No 2.5mg [facility] [place] 4-22 [facility] 00:00: - [facility] [place] 20 [place] 20 2020-0 No 20mg C [facility]mon mg mg 4-22 [facility] 00:00: - [facility] [place] Kenalog 2020-0 No 40mg Common (Triamcinol (Triamcinol 4-22 S pirit one) one) 00:00: - [facility] [place] 20 [place] 20 2020-0 No 20mg C ommon mg mg 4- [facility] 00:00: - [facility] Bupivicaine Bupivicaine 2020-0 No 2.5mg [facility] [place] 4-22 [facility] 00:00: - [facility] [place] 20 [place] 20 2020-0 No 20mg C ommon mg mg 4-22 [facility] 00:00: - [facility] [place] Kenalog 2020-0 No 40mg Common (Triamcinol (Triamcinol 4-22 S pirit one) one) 00:00: - [facility] [place] 20 [place] 20 2020-0 No 20mg C [facility]mon mg mg 4-22 [facility] 00:00: - [facility] [place] Kenalog 2020-0 No 40mg Common (Triamcinol (Triamcinol 4-22 S pirit one) one) 00:00: - [facility] [place] 20 [place] 20 2020-0 No 20mg C ommon mg mg 4-22 [facility] 00:00: - [facility] Bupivicaine Bupivicaine 2020-0 No 2.5mg [facility] [place] 4-22 [facility] 00:00: - [facility] Bupivicaine Bupivicaine 2020-0 No 2.5mg [facility] [place] 4-22 [facility] 00:00: - [facility] [place] 20 [place] 20 2020-0 No 20mg C ommon mg mg 4-22 [facility] 00:00: - [facility] [place] Kenalog 2020-0 No 40mg Common (Triamcinol (Triamcinol 4-22 S pirit one) one) 00:00: - [facility] [place] Kenalog 2020-0 No 40mg Common (Triamcinol (Triamcinol 4-22 S pirit one) one) 00:00: - [facility] [place] 20 [place] 20 2020-0 No 20mg C ommon mg mg 4-22 [facility] 00:00: - [facility] Bupivicaine Bupivicaine 2020-0 No 2.5mg Common [place] 4- [facility] 00:00: - [facility] Bupivicaine Bupivicaine 2020-0 No 2.5mg [facility] [place] 4-22 [facility] 00:00: - [facility] [place] Kenalog 2020-0 No 40mg Common (Triamcinol (Triamcinol 4-22 S pirit one) one) 00:00: - [facility] [place] 20 [place] 20 2020-0 No 20mg C [facility]mon mg mg 4- [facility] 00:00: - [facility] [place] 2020-0 No 40mg Common (Triamcinol (Triamcinol 4-22 S pirit one) one) 00:00: - [facility] [place] Kenalog 2020-0 No 40mg Common (Triamcinol (Triamcinol 4-22 S pirit one) one) 00:00: - [facility] [place] 20 [place] 20 2020-0 No 20mg C [facility]mon mg mg 4-22 [facility] 00:00: - [facility] Bupivicaine Bupivicaine 2020-0 No 2.5mg [facility] [place] 4-22 [facility] 00:00: - [facility] Bupivicaine Bupivicaine 2020-0 No 2.5mg [facility] [place] 4-22 [facility] 00:00: - [facility] [place] 20 [place] 20 2020-0 No 20mg C ommon mg mg 4- [facility] 00:00: - [facility] [place] Kenalog 2020-0 No 40mg Common (Triamcinol (Triamcinol 4-22 S pirit one) one) 00:00: - [facility] Bupivicaine Bupivicaine 2020-0 No 2.5mg [facility] [place] 4-22 [facility] 00:00: - [facility] [place] Kenalog 2020-0 No 40mg Common (Triamcinol (Triamcinol 4-22 S pirit one) one) 00:00: - [facility] Bupivicaine Bupivicaine 2020-0 No 2.5mg [facility] [place] 4-22 [facility] 00:00: - [facility] [place] 20 [place] 20 2020-0 No 20mg C ommon mg mg 4- [facility] 00:00: - [facility] [place] 20 [place] 20 2020-0 No 20mg C [facility]mon mg mg 4-22 [facility] 00:00: - [facility] [place] Kenalog 2020-0 No 40mg Common (Triamcinol (Triamcinol 4-22 S pirit one) one) 00:00: - [facility] Bupivicaine Bupivicaine 2020-0 No 2.5mg [facility] [place] 4-22 [facility] 00:00: - [facility] [place] Kenalog 2020-0 No 40mg Common (Triamcinol (Triamcinol 4-22 S pirit one) one) 00:00: - [facility] Bupivicaine Bupivicaine 2020-0 No 2.5mg Common Woodlyn Woodlyn 4-22 Spirit 00:00: - [facility] Hyalgan 20 Hyalgan 20 2020-0 No 20mg C ommon mg mg 4-22 Spirit 00:00: - [facility] Hyalgan 20 Hyalgan 20 2020-0 No 20mg C ommon mg mg 4-22 Spirit 00:00: - [facility] Kenalog Kenalog 2020-0 No 40mg Common (Triamcinol (Triamcinol 4-22 S pirit one) one) 00:00: - [facility] Kenalog Kenalog 2020-0 No 40mg Common (Triamcinol (Triamcinol 4-22 S pirit one) one) 00:00: - [facility] Hyalgan 20 Hyalgan 20 2020-0 No 20mg C ommon mg mg 4-22 Spirit 00:00: - [facility] Bupivicaine Bupivicaine 2020-0 No Common Woodlyn Woodlyn 4-22 Spirit 00:00: - [facility] Bupivicaine Bupivicaine 2020-0 No Common Woodlyn Woodlyn 4-22 Spirit 00:00: - [facility] Kenalog Kenalog 2020-0 No 40mg Common (Triamcinol (Triamcinol 4-22 S pirit one) one) 00:00: - [facility] Hyalgan 20 Hyalgan 20 2020-0 No 20mg C ommon mg mg 4-22 Spirit 00:00: - [facility] Kenalog Kenalog 2020-0 No 40mg Common (Triamcinol (Triamcinol 4-22 S pirit one) one) 00:00: - [facility] Hyalgan 20 Hyalgan 20 2020-0 No 20mg C ommon mg mg 4-22 [facility] 00:[facility]: [facility] Bupivicaine Bupivicaine 2020-0 No Common [place] 4-22 [facility] 00:00: - [facility] Bupivicaine Bupivicaine 2020-0 No Common [place] 4-22 [facility] 00:00: - [facility] Kenalog Kenalog 2020-0 No 40mg Common (Triamcinol (Triamcinol 4-22 S pirit one) one) 00:00: - [facility] Hyalgan 20 Hyalgan 20 2020-0 No 20mg C ommon mg mg 4-22 [facility] 00:00: - [facility] Kenalog Kenalog 2020-0 No 40mg Common (Triamcinol (Triamcinol 4-22 S pirit one) one) 00:00: - [facility] Hyalgan 20 Hyalgan 20 2020-0 No 20mg C ommon mg mg 4-22 [facility] 00:00: - [facility] Bupivicaine Bupivicaine 2020-0 No Common [place] 4-22 [facility] 00:00: - [facility] Bupivicaine Bupivicaine 2020-0 No Common [place] 4-22 [facility] 00:00: - [facility] Kenalog Kenalog 2020-0 No 40mg Common (Triamcinol (Triamcinol 4-22 S pirit one) one) 00:00: - [facility] Hyalgan 20 Hyalgan 20 2020-0 No 20mg C ommon mg mg 4-22 [facility] 00:00: - [facility] Kenalog Kenalog 2020-0 No 40mg Common (Triamcinol (Triamcinol 4-22 S pirit one) one) 00:00: - [facility] Hyalgan 20 Hyalgan 20 2020-0 No 20mg C ommon mg mg 4-22 [facility] 00:00: - [facility] Bupivicaine Bupivicaine 2020-0 No Common [place] 4-22 [facility] 00:00: - [facility] Bupivicaine Bupivicaine 2020-0 No Common [place] 4-22 [facility] 00:00: - [facility] Kenalog Kenalog 2020-0 No 40mg Common (Triamcinol (Triamcinol 4-22 S pirit one) one) 00:00: - [facility] Hyalgan 20 Hyalgan 20 2020-0 No 20mg C ommon mg mg 4-22 [facility] 00:00: - [facility] Kenalog Kenalog 2020-0 No 40mg Common (Triamcinol (Triamcinol 4-22 S pirit one) one) 00:00: - [facility] Hyalgan 20 Hyalgan 20 2020-0 No 20mg C ommon mg mg 4-22 [facility] 00:00: - [facility] Bupivicaine Bupivicaine 2020-0 No 2.5mg Common [place] 4-22 [facility] 00:00: - [facility] Bupivicaine Bupivicaine 2020-0 No 2.5mg Common [place] 4-22 [facility] 00:00: - [facility] Kenalog Kenalog 2020-0 No 40mg Common (Triamcinol (Triamcinol 4-22 S pirit one) one) 00:00: - [facility] Hyalgan 20 Hyalgan 20 2020-0 No 20mg C ommon mg mg 4-22 [facility] 00:00: - [facility] Kenalog Kenalog 2020-0 No 40mg Common (Triamcinol (Triamcinol 4-22 S pirit one) one) 00:00: - [facility] Hyalgan 20 Hyalgan 20 2020-0 No 20mg C ommon mg mg 4-22 [facility] 00:00: - [facility] Bupivicaine Bupivicaine 2020-0 No 2.5mg Common [place] 4-22 [facility] 00:00: - [facility] Bupivicaine Bupivicaine 2020-0 No 2.5mg Common [place] 4-22 [facility] 00:00: - [facility] Kenalog Kenalog 2020-0 No 40mg Common (Triamcinol (Triamcinol 4-22 S pirit one) one) 00:00: - [facility] Hyalgan 20 Hyalgan 20 2020-0 No 20mg C ommon mg mg 4-22 [facility] 00:00: - [facility] Kenalog Kenalog 2020-0 No 40mg Common (Triamcinol (Triamcinol 4-22 S pirit one) one) 00:00: - [facility] Hyalgan 20 Hyalgan 20 2020-0 No 20mg C ommon mg mg 4-22 [facility] 00:00: - [facility] Bupivicaine Bupivicaine 2020-0 No 2.5mg Common [place] 4-22 [facility] 00:00: - [facility] Bupivicaine Bupivicaine 2020-0 No 2.5mg Common [place] 4-22 [facility] 00:00: - [facility] Kenalog Kenalog 2020-0 No 40mg Common (Triamcinol (Triamcinol 4-22 S pirit one) one) 00:00: - [facility] Hyalgan 20 Hyalgan 20 2020-0 No 20mg C ommon mg mg 4-22 [facility] 00:00: - [facility] Kenalog Kenalog 2020-0 No 40mg Common (Triamcinol (Triamcinol 4-22 S pirit one) one) 00:00: - [facility] Hyalgan 20 Hyalgan 20 2020-0 No 20mg C ommon mg mg 4-22 [facility] 00:00: - [facility] Bupivicaine Bupivicaine 2020-0 No 2.5mg Common [place] 4-22 [facility] 00:00: - [facility] Bupivicaine Bupivicaine 2020-0 No 2.5mg Common [place] 4-22 [facility] 00:00: - [facility] Kenalog Kenalog 2020-0 No 40mg Common (Triamcinol (Triamcinol 4-22 S pirit one) one) 00:00: - [facility] Hyalgan 20 Hyalgan 20 2020-0 No 20mg C ommon mg mg 4-22 [facility] 00:00: - [facility] Kenalog Kenalog 2020-0 No 40mg Common (Triamcinol (Triamcinol 4-22 S pirit one) one) 00:00: - [facility] Hyalgan 20 Hyalgan 20 2020-0 No 20mg C ommon mg mg 4-22 [facility] 00:00: - [facility] Bupivicaine Bupivicaine 2020-0 No 2.5mg Common [place] 4-22 [facility] 00:00: - [facility] Bupivicaine Bupivicaine 2020-0 No 2.5mg Common [place] 4-22 [facility] 00:00: - [facility] Kenalog Kenalog 2020-0 No 40mg Common (Triamcinol (Triamcinol 4-22 S pirit one) one) 00:00: - [facility] Hyalgan 20 Hyalgan 20 2020-0 No 20mg C ommon mg mg 4-22 [facility] 00:00: - [facility] Kenalog Kenalog 0 No 40mg Common (Triamcinol (Triamcinol 4-22 S pirit one) one) 00:00: - [facility] Hyalgan 20 Hyalgan 20 2020-0 No 20mg C ommon mg mg 4-22 [facility] 00:00: - [facility] Hyalgan 20 Hyalgan 20 2020-0 No 20mg C ommon mg mg 4-22 [facility] 00:00: - [facility] Bupivicaine Bupivicaine 2020-0 No 2.5mg Common [place] 4-22 [facility] 00:00: - [facility] Bupivicaine Bupivicaine 2020-0 No 2.5mg Common [place] 4-22 [facility] 00:00: - [facility] Kenalog Kenalog 0 No 40mg Common (Triamcinol (Triamcinol 4-22 S pirit one) one) 00:00: - [facility] Kenalog Kenalog 0 No 40mg Common (Triamcinol (Triamcinol 4-22 S pirit one) one) 00:00: - [facility] Hyalgan 20 Hyalgan 20 2020-0 No 20mg C ommon mg mg 4-22 [facility] 00:00: - [facility] Hyalgan 20 Hyalgan 20 2020-0 No 20mg C ommon mg mg 4-22 [facility] 00:00: - [facility] Bupivicaine Bupivicaine 2020-0 No 2.5mg Common [place] 4-22 [facility] 00:00: - [facility] Bupivicaine Bupivicaine 2020-0 No 2.5mg Common [place] 4-22 [facility] 00:00: - [facility] Kenalog Kenalog 0 No 40mg Common (Triamcinol (Triamcinol 4-22 S pirit one) one) 00:00: - [facility] Bupivicaine Bupivicaine 2020-0 No 2.5mg Common [place] 4-22 [facility] 00:00: - [facility] Kenalog Kenalog 2020-0 No 40mg Common (Triamcinol (Triamcinol 4-22 S pirit one) one) 00:00: - [facility] Bupivicaine Bupivicaine 2020-0 No 2.5mg Common [place] 4-22 [facility] 00:00: - [facility] Hyalgan 20 Hyalgan 20 2020-0 No 20mg C ommon mg mg 4-22 [facility] 00:00: - [facility] Hyalgan 20 Hyalgan 20 2020-0 No 20mg C ommon mg mg 4-22 [facility] 00:00: - [facility] Kenalog Kenalog 0 No 40mg Common (Triamcinol (Triamcinol 4-22 S pirit one) one) 00:00: - [facility] Bupivicaine Bupivicaine 2020-1 No 2.5mg Common [place] 2-31 [facility] 00:00: - [facility] Kenalog Kenalog 2020-1 No 40mg Common (Triamcinol (Triamcinol 2-31 S pirit one) one) 00:00: - [facility] Bupivicaine Bupivicaine 2020-1 No 2.5mg Common [place] 2-31 [facility] 00:00: - [facility] Kenalog Kenalog 2020-1 No 40mg Common (Triamcinol (Triamcinol 2-31 S pirit one) one) 00:00: - [facility] Bupivicaine Bupivicaine 2020-1 No 2.5mg Common [place] 2-31 [facility] 00:00: - [facility] Kenalog Kenalog 2020-1 No 40mg Common (Triamcinol (Triamcinol 2-31 S pirit one) one) 00:00: - [facility] Bupivicaine Bupivicaine 2020-1 No 2.5mg Common [place] 2-31 [facility] 00:00: - [facility] Kenalog Kenalog 2019- No 40mg Common (Triamcinol (Triamcinol 2-31 S pirit one) one) 00:00: - [facility] Bupivicaine Bupivicaine 2019- No 2.5mg Common [place] 2-31 [facility] 00:00: - [facility] Kenalog Kenalog 2019- No 40mg Common (Triamcinol (Triamcinol 2-31 S pirit one) one) 00:00: - [facility] Bupivicaine Bupivicaine 2019- No 2.5mg Common [place] 2-31 [facility] 00:00: - [facility] Kenalog Kenalog 2019- No 40mg Common (Triamcinol (Triamcinol 2-31 S pirit one) one) 00:00: - [facility] Bupivicaine Bupivicaine 2019- No 2.5mg Common [place] 2-31 [facility] 00:00: - [facility] Kenalog Kenalog 2019- No 40mg Common (Triamcinol (Triamcinol 2-31 S pirit one) one) 00:00: - [facility] Bupivicaine Bupivicaine 2019- No 2.5mg Common [place] 2-31 [facility] 00:00: - [facility] Kenalog Kenalog 2019- No 40mg Common (Triamcinol (Triamcinol 2-31 S pirit one) one) 00:00: - [facility] Bupivicaine Bupivicaine 2020- No 2.5mg Common [place] 2-31 [facility] 00:00: - [facility] Kenalog Kenalog 2020- No 40mg Common (Triamcinol (Triamcinol 2-31 S pirit one) one) 00:00: - [facility] Bupivicaine Bupivicaine 2020- No 2.5mg Common [place] 2-31 [facility] 00:00: - [facility] Kenalog Kenalog 2019-1 No 40mg Common (Triamcinol (Triamcinol 2-31 S pirit one) one) 00:00: - [facility] Bupivicaine Bupivicaine 2019-1 No 2.5mg Common [place] 2-31 [facility] 00:00: - [facility] Kenalog Kenalog 2019- No 40mg Common (Triamcinol (Triamcinol 2-31 S pirit one) one) 00:00: - [facility] Bupivicaine Bupivicaine 2019- No 2.5mg Common [place] 2-31 [facility] 00:00: - [facility] Kenalog Kenalog 2019- No 40mg Common (Triamcinol (Triamcinol 2-31 S pirit one) one) 00:00: - [facility] Bupivicaine Bupivicaine 2019- No 2.5mg Common [place] 2-31 [facility] 00:00: - [facility] Kenalog Kenalog 2019- No 40mg Common (Triamcinol (Triamcinol 2-31 S pirit one) one) 00:00: - [facility] Bupivicaine Bupivicaine 2019-1 No 2.5mg Common [place] 2-31 [facility] 00:00: - [facility] Kenalog Kenalog 2019- No 40mg Common (Triamcinol (Triamcinol 2-31 S pirit one) one) 00:00: - [facility] Bupivicaine Bupivicaine 2019-1 No 2.5mg Common [place] 2-31 [facility] 00:00: - [facility] Kenalog Kenalog 2019- No 40mg Common (Triamcinol (Triamcinol 2-31 S pirit one) one) 00:00: - [facility] Bupivicaine Bupivicaine 2020-1 No 2.5mg Common [place] 2-31 [facility] 00:00: - [facility] Kenalog Kenalog 2019- No 40mg Common (Triamcinol (Triamcinol 2-31 S pirit one) one) 00:00: - [facility] Bupivicaine Bupivicaine 2020-1 No 2.5mg Common [place] 2-31 [facility] 00:00: - [facility] Kenalog Kenalog 2019- No 40mg Common (Triamcinol (Triamcinol 2-31 S pirit one) one) 00:00: - [facility] Bupivicaine Bupivicaine 2019- No 2.5mg Common [place] 2-31 [facility] 00:00: - [facility] Kenalog Kenalog 2019- No 40mg Common (Triamcinol (Triamcinol 2-31 S pirit one) one) 00:00: - [facility] Bupivicaine Bupivicaine 2019- No 2.5mg Common [place] 2-31 [facility] 00:00: - [facility] Kenalog Kenalog 2019- No 40mg Common (Triamcinol (Triamcinol 2-31 S pirit one) one) 00:00: - [facility] Kenalog Kenalog 2019- No 40mg Common (Triamcinol (Triamcinol 2-31 S pirit one) one) 00:00: - [facility] Bupivicaine Bupivicaine 2019-1 No 2.5mg Common [place] 2-31 [facility] 00:00: - [facility] Kenalog Kenalog 2019- No 40mg Common (Triamcinol (Triamcinol 2-31 S pirit one) one) 00:00: - [facility] Bupivicaine Bupivicaine 2019- No 2.5mg Common [place] 2-31 [facility] 00:00: - [facility] Kenalog Kenalog 2019- No 40mg Common (Triamcinol (Triamcinol 2-31 S pirit one) one) 00:00: - [facility] Bupivicaine Bupivicaine 2019- No 2.5mg Common [place] 2-31 [facility] 00:00: - [facility] Bupivicaine Bupivicaine 2019- No 2.5mg Common [place] 2-31 [facility] 00:00: - [facility] Kenalog Kenalog 2019- No 40mg Common (Triamcinol (Triamcinol 2-31 S pirit one) one) 00:00: - [facility] Bupivicaine Bupivicaine 2020- No 2.5mg Common [place] 2-31 [facility] 00:00: - [facility] Kenalog Kenalog 2019- No 40mg Common (Triamcinol (Triamcinol 2-31 S pirit one) one) 00:00: - [facility] Bupivicaine Bupivicaine 2019- No 2.5mg Common [place] 2-31 [facility] 00:00: - [facility] Kenalog Kenalog 2019- No 40mg Common (Triamcinol (Triamcinol 2-31 S pirit one) one) 00:00: - [facility] Bupivicaine Bupivicaine 2019- No 2.5mg Common [place] 2-31 [facility] 00:00: - [facility] Kenalog Kenalog 2019- No 40mg Common (Triamcinol (Triamcinol 2-31 S pirit one) one) 00:00: - [facility] Bupivicaine Bupivicaine 2019- No 2.5mg Common [place] 2-31 [facility] 00:00: - [facility] Kenalog Kenalog 2019- No 40mg Common (Triamcinol (Triamcinol 2-31 S pirit one) one) 00:00: - [facility] Bupivicaine Bupivicaine 2019- No 2.5mg Common [place] 2-31 [facility] 00:00: - [facility] Kenalog Kenalog 2019- No 40mg Common (Triamcinol (Triamcinol 2-31 S pirit one) one) 00:00: - [facility] Kenalog Kenalog 2019- No 40mg Common (Triamcinol (Triamcinol 2-31 S pirit one) one) 00:00: - [facility] Bupivicaine Bupivicaine 2019-1 No Common [place] 2-31 [facility] 00:00: - [facility] Kenalog Kenalog 2020- No 40mg Common (Triamcinol (Triamcinol 2-31 S pirit one) one) 00:00: - [facility] Bupivicaine Bupivicaine 2020- No Common [place] 2-31 [facility] 00:00: - [facility] Kenalog Kenalog 2019- No 40mg Common (Triamcinol (Triamcinol 2-31 S pirit one) one) 00:00: - [facility] Bupivicaine Bupivicaine 2019- No Common [place] 2-31 [facility] 00:00: - [facility] Kenalog Kenalog 2019- No 40mg Common (Triamcinol (Triamcinol 2-31 S pirit one) one) 00:00: - [facility] Bupivicaine Bupivicaine 2019- No Common [place] 2-31 [facility] 00:00: - [facility] Kenalog Kenalog 2019- No 40mg Common (Triamcinol (Triamcinol 2-31 S pirit one) one) 00:00: - [facility] Bupivicaine Bupivicaine 2019- No 2.5mg Common [place] 2-31 [facility] 00:00: - [facility] Kenalog Kenalog 2019- No 40mg Common (Triamcinol (Triamcinol 2-31 S pirit one) one) 00:00: - [facility] Bupivicaine Bupivicaine 2019- No 2.5mg Common [place] 2-31 [facility] 00:00: - [facility] Kenalog Kenalog 2019- No 40mg Common (Triamcinol (Triamcinol 2-31 S pirit one) one) 00:00: - [facility] Bupivicaine Bupivicaine 2020- No 2.5mg Common [place] 2-31 [facility] 00:00: - [facility] Kenalog Kenalog 2020- No 40mg Common (Triamcinol (Triamcinol 2-31 S pirit one) one) 00:00: - [facility] Bupivicaine Bupivicaine 2020-1 No 2.5mg Common [place] 2-31 [facility] 00:00: - [facility] Kenalog Kenalog 2020- No 40mg Common (Triamcinol (Triamcinol 2-31 S pirit one) one) 00:00: - [facility] Bupivicaine Bupivicaine 2020-1 No 2.5mg Common [place] 2-31 [facility] 00:00: - [facility] Kenalog Kenalog 2020- No 40mg Common (Triamcinol (Triamcinol 2-31 S pirit one) one) 00:00: - [facility] Bupivicaine Bupivicaine 2020-1 No 2.5mg Common [place] 2-31 [facility] 00:00: - [facility] Bupivicaine Bupivicaine 2020-1 No 2.5mg Common [place] 2-31 [facility] 00:00: - [facility] Kenalog Kenalog 2020- No 40mg Common (Triamcinol (Triamcinol 2-31 S pirit one) one) 00:00: - [facility] Bupivicaine Bupivicaine 2020-1 No 2.5mg Common [place] 2-31 [facility] 00:00: - [facility] Kenalog Kenalog 2020-1 No 40mg Common (Triamcinol (Triamcinol 2-31 S pirit one) one) 00:00: - [facility] Amlodipine Amlodipine 2020-0 Yes Jun 1 tablet Common Besylate Besylate 6-25 [facility] 00:00: evening - [facility] Citalopram Citalopram 2020-0 Yes Jun 1 tablet [facility] Hydrobromid Hydrobromid 6-23 [facility] 00:00: - [facility] Restoril Restoril 2020-0 Yes Jun 1 capsule Common 6-23 [facility] 00:00: as needed - [facility] Vitamin Vitamin 2020-0 Yes Jun 2 tablet C ommon D-1000 Max D-1000 Max 5-[address] [facility] [address] 00:00: - [facility] Vitamin Vitamin 2020-0 No 2{table QD Vitamin D-1000 Max D-1000 Max 5-07 t} D-[address] 25 MCG 00:00: St 25 MCG (1000 UT) (1000 UT) 00 (1000 UT) Vitamin Vitamin 2020-0 No 2{table QD Vitamin D-1000 Max D-1000 Max 5-07 t} D-[address] 25 MCG 00:00: St 25 MCG (1000 UT) (1000 UT) 00 (1000 UT) Vitamin Vitamin 2020-0 No 2{table QD Vitamin D-1000 Max D-1000 Max 5-07 t} D-[address] 25 MCG 00:00: St 25 MCG (1000 UT) (1000 UT) 00 (1000 UT) Vitamin Vitamin 2020-0 No 2{table QD Vitamin D-1000 Max D-1000 Max 5-07 t} D-[address] 25 MCG 00:00: St 25 MCG (1000 UT) (1000 UT) 00 (1000 UT) Vitamin Vitamin 2020-0 No 2{table QD Vitamin D-1000 Max D-1000 Max 5-07 t} D-[address] 25 MCG 00:00: St 25 MCG (1000 UT) (1000 UT) 00 (1000 UT) Vitamin Vitamin 2020-0 No 2{table QD Vitamin D-1000 Max D-1000 Max 5-07 t} D-[address] 25 MCG 00:00: St 25 MCG (1000 UT) (1000 UT) 00 (1000 UT) Vitamin Vitamin 2020-0 No 2{table QD Vitamin D-1000 Max D-1000 Max 5-07 t} D-[address] 25 MCG 00:00: St 25 MCG (1000 UT) (1000 UT) 00 (1000 UT) Vitamin Vitamin 2020-0 No 2{table QD Vitamin D-1000 Max D-1000 Max 5-07 t} D-[address] 25 MCG 00:00: St 25 MCG (1000 UT) (1000 UT) 00 (1000 UT) Vitamin Vitamin 2020-0 No 2{table QD Vitamin D-1000 Max D-1000 Max 5-07 t} D-[address] 25 MCG 00:00: St 25 MCG (1000 UT) (1000 UT) 00 (1000 UT) Vitamin Vitamin 2020-0 No 2{table QD Vitamin D-1000 Max D-1000 Max 5-07 t} D-[address] 25 MCG 00:00: St 25 MCG (1000 UT) (1000 UT) 00 (1000 UT) Vitamin Vitamin 2020-0 No 2{table QD Vitamin D-1000 Max D-1000 Max 5-07 t} D-[address] 25 MCG 00:00: St 25 MCG (1000 UT) (1000 UT) 00 (1000 UT) Vitamin Vitamin 2020-0 No 2{table QD Vitamin D-1000 Max D-1000 Max 5-07 t} D-[address] 25 MCG 00:00: St 25 MCG (1000 UT) (1000 UT) 00 (1000 UT) Vitamin Vitamin 2020-0 No 2{table QD Vitamin D-1000 Max D-1000 Max 5-07 t} D-[address] 25 MCG 00:00: St 25 MCG (1000 UT) (1000 UT) 00 (1000 UT) Vitamin Vitamin 2020-0 No 2{table QD Vitamin D-1000 Max D-1000 Max 5-07 t} D-[address] 25 MCG 00:00: St 25 MCG (1000 UT) (1000 UT) 00 (1000 UT) Vitamin Vitamin 2020-0 No 2{table QD Vitamin D-1000 Max D-1000 Max 5-07 t} D-[address] 25 MCG 00:00: St 25 MCG (1000 UT) (1000 UT) 00 (1000 UT) Vitamin Vitamin 2020-0 No 2{table QD Vitamin D-1000 Max D-1000 Max 5-07 t} D-[address] 25 MCG 00:00: St 25 MCG (1000 UT) (1000 UT) 00 (1000 UT) Vitamin Vitamin 2020-0 No 2{table QD Vitamin D-1000 Max D-1000 Max 5-07 t} D-[address] 25 MCG 00:00: St 25 MCG (1000 UT) (1000 UT) 00 (1000 UT) Vitamin Vitamin 2020-0 No 2{table QD Vitamin D-1000 Max D-1000 Max 5-07 t} D-[address] 25 MCG 00:00: St 25 MCG (1000 UT) (1000 UT) 00 (1000 UT) Vitamin Vitamin 2020-0 No 2{table QD Vitamin D-1000 Max D-1000 Max 5-07 t} D-[address] 25 MCG 00:00: St 25 MCG (1000 UT) (1000 UT) 00 (1000 UT) Vitamin Vitamin 2020-0 No 2{table QD Vitamin D-1000 Max D-1000 Max 5-07 t} D-[address] 25 MCG 00:00: St 25 MCG (1000 UT) (1000 UT) 00 (1000 UT) Vitamin Vitamin 2020-0 No 2{table QD Vitamin D-1000 Max D-1000 Max 5-07 t} D-[address] 25 MCG 00:00: St 25 MCG (1000 UT) (1000 UT) 00 (1000 UT) Vitamin Vitamin 2020-0 No 2{table QD Vitamin D-1000 Max D-1000 Max 5-07 t} D-[address] 25 MCG 00:00: St 25 MCG (1000 UT) (1000 UT) 00 (1000 UT) Vitamin Vitamin 2020-0 No 2{table QD Vitamin D-1000 Max D-1000 Max 5-07 t} D-[address] 25 MCG 00:00: St 25 MCG (1000 UT) (1000 UT) 00 (1000 UT) Vitamin Vitamin 2020-0 No 2{table QD Vitamin D-1000 Max D-1000 Max 5-07 t} D-[address] 25 MCG 00:00: St 25 MCG (1000 UT) (1000 UT) 00 (1000 UT) Vitamin Vitamin 2020-0 No 2{table QD Vitamin D-1000 Max D-1000 Max 5-07 t} D-[address] 25 MCG 00:00: St 25 MCG (1000 UT) (1000 UT) 00 (1000 UT) Vitamin Vitamin 2020-0 No 2{table QD Vitamin D-1000 Max D-1000 Max 5-07 t} D-[address] 25 MCG 00:00: St 25 MCG (1000 UT) (1000 UT) 00 (1000 UT) Vitamin Vitamin 2020-0 No 2{table QD Vitamin D-1000 Max D-1000 Max 5-07 t} D-[address] 25 MCG 00:00: St 25 MCG (1000 UT) (1000 UT) 00 (1000 UT) Vitamin Vitamin 2020-0 No 2{table QD Vitamin D-1000 Max D-1000 Max 5-07 t} D-[address] 25 MCG 00:00: St 25 MCG (1000 UT) (1000 UT) 00 (1000 UT) Vitamin Vitamin 2020-0 No 2{table QD Vitamin D-1000 Max D-1000 Max 5-07 t} D-[address] 25 MCG 00:00: St 25 MCG (1000 UT) (1000 UT) 00 (1000 UT) Vitamin Vitamin 2020-0 No 2{table QD Vitamin D-1000 Max D-1000 Max 5-07 t} D-[address] 25 MCG 00:00: St 25 MCG (1000 UT) (1000 UT) 00 (1000 UT) Vitamin Vitamin 2020-0 No 2{table QD Vitamin D-1000 Max D-1000 Max 5-07 t} D-[address] 25 MCG 00:00: St 25 MCG (1000 UT) (1000 UT) 00 (1000 UT) Vitamin Vitamin 2020-0 No 2{table QD Vitamin D-1000 Max D-1000 Max 5-07 t} D-[address] 25 MCG 00:00: St 25 MCG (1000 UT) (1000 UT) 00 (1000 UT) Vitamin Vitamin 2020-0 No 2{table QD Vitamin D-1000 Max D-1000 Max 5-07 t} D-[address] 25 MCG 00:00: St 25 MCG (1000 UT) (1000 UT) 00 (1000 UT) Vitamin Vitamin 2020-0 No 2{table QD Vitamin D-1000 Max D-1000 Max 5-07 t} D-[address] 25 MCG 00:00: St 25 MCG (1000 UT) (1000 UT) 00 (1000 UT) Vitamin Vitamin 2020-0 No 2{table QD Vitamin D-1000 Max D-1000 Max 5-07 t} D-[address] 25 MCG 00:00: St 25 MCG (1000 UT) (1000 UT) 00 (1000 UT) Vitamin Vitamin 2020-0 No 2{table QD Vitamin D-1000 Max D-1000 Max 5-07 t} D-[address] 25 MCG 00:00: St 25 MCG (1000 UT) (1000 UT) 00 (1000 UT) Vitamin Vitamin 2020-0 No 2{table QD Vitamin D-1000 Max D-1000 Max 5-07 t} D-[address] 25 MCG 00:00: St 25 MCG (1000 UT) (1000 UT) 00 (1000 UT) Vitamin Vitamin 2020-0 No 2{table QD Vitamin D-1000 Max D-1000 Max 5-07 t} D-[address] 25 MCG 00:00: St 25 MCG (1000 UT) (1000 UT) 00 (1000 UT) Vitamin Vitamin 2020-0 No 2{table QD Vitamin D-1000 Max D-1000 Max 5-07 t} D-[address] 25 MCG 00:00: St 25 MCG (1000 UT) (1000 UT) 00 (1000 UT) Vitamin Vitamin 2020-0 No 2{table QD Vitamin D-1000 Max D-1000 Max 5-07 t} D-[address] 25 MCG 00:00: St 25 MCG (1000 UT) (1000 UT) 00 (1000 UT) Vitamin Vitamin 2020-0 No 2{table QD Vitamin D-1000 Max D-1000 Max 5-07 t} D-[address] 25 MCG 00:00: St 25 MCG (1000 UT) (1000 UT) 00 (1000 UT) Vitamin Vitamin 2020-0 No 2{table QD Vitamin D-1000 Max D-1000 Max 5-07 t} D-[address] 25 MCG 00:00: St 25 MCG (1000 UT) (1000 UT) 00 (1000 UT) Kenalog Kenalog 2020-0 No 40mg Common (Triamcinol (Triamcinol 3-12 S pirit one) one) 00:00: - [facility] Kenalog Kenalog 2020-0 No 40mg Common (Triamcinol (Triamcinol 3-12 S pirit one) one) 00:00: - [facility] Kenalog Kenalog 2020-0 No 40mg Common (Triamcinol (Triamcinol 3-12 S pirit one) one) 00:00: - [facility] Kenalog Kenalog 2020-0 No 40mg Common (Triamcinol (Triamcinol 3-12 S pirit one) one) 00:00: - [facility] Kenalog Kenalog 2020-0 No 40mg Common (Triamcinol (Triamcinol 3-12 S pirit one) one) 00:00: - [facility] Kenalog Kenalog 2020-0 No 40mg Common (Triamcinol (Triamcinol 3-12 S pirit one) one) 00:00: - [facility] Kenalog Kenalog 2020-0 No 40mg Common (Triamcinol (Triamcinol 3-12 S pirit one) one) 00:00: - [facility] Kenalog Kenalog 2020-0 No 40mg Common (Triamcinol (Triamcinol 3-12 S pirit one) one) 00:00: - [facility] Kenalog Kenalog 2020-0 No 40mg Common (Triamcinol (Triamcinol 3-12 S pirit one) one) 00:00: - [facility] Kenalog Kenalog 2020-0 No 40mg Common (Triamcinol (Triamcinol 3-12 S pirit one) one) 00:00: - [facility] Kenalog Kenalog 2020-0 No 40mg Common (Triamcinol (Triamcinol 3-12 S pirit one) one) 00:00: - [facility] Kenalog Kenalog 2020-0 No 40mg Common (Triamcinol (Triamcinol 3-12 S pirit one) one) 00:00: - [facility] Kenalog Kenalog 2020-0 No 40mg Common (Triamcinol (Triamcinol 3-12 S pirit one) one) 00:00: - [facility] Kenalog Kenalog 2020-0 No 40mg Common (Triamcinol (Triamcinol 3-12 S pirit one) one) 00:00: - [facility] Kenalog Kenalog 2020-0 No 40mg Common (Triamcinol (Triamcinol 3-12 S pirit one) one) 00:00: - [facility] Kenalog Kenalog 2020-0 No 40mg Common (Triamcinol (Triamcinol 3-12 S pirit one) one) 00:00: - [facility] Kenalog Kenalog 2020-0 No 40mg Common (Triamcinol (Triamcinol 3-12 S pirit one) one) 00:00: - [facility] Kenalog Kenalog 2020-0 No 40mg Common (Triamcinol (Triamcinol 3-12 S pirit one) one) 00:00: - [facility] Kenalog Kenalog 2020-0 No 40mg Common (Triamcinol (Triamcinol 3-12 S pirit one) one) 00:00: - [facility] Kenalog Kenalog 2020-0 No 40mg Common (Triamcinol (Triamcinol 3-12 S pirit one) one) 00:00: - [facility] Kenalog Kenalog 2020-0 No 40mg Common (Triamcinol (Triamcinol 3-12 S pirit one) one) 00:00: - [facility] Kenalog Kenalog 2020-0 No 40mg Common (Triamcinol (Triamcinol 3-12 S pirit one) one) 00:00: - [facility] Kenalog Kenalog 2020-0 No 40mg Common (Triamcinol (Triamcinol 3-12 S pirit one) one) 00:00: - [facility] Kenalog Kenalog 2020-0 No 40mg Common (Triamcinol (Triamcinol 3-12 S pirit one) one) 00:00: - [facility] Kenalog Kenalog 2020-0 No 40mg Common (Triamcinol (Triamcinol 3-12 S pirit one) one) 00:00: - [facility] Kenalog Kenalog 2020-0 No 40mg Common (Triamcinol (Triamcinol 3-12 S pirit one) one) 00:00: - [facility] Kenalog Kenalog 2020-0 No 40mg Common (Triamcinol (Triamcinol 3-12 S pirit one) one) 00:00: - [facility] Kenalog Kenalog 2020-0 No 40mg Common (Triamcinol (Triamcinol 3-12 S pirit one) one) 00:00: - [facility] Kenalog Kenalog 2020-0 No 40mg Common (Triamcinol (Triamcinol 3-12 S pirit one) one) 00:00: - [facility] Kenalog Kenalog 2020-0 No 40mg Common (Triamcinol (Triamcinol 3-12 S pirit one) one) 00:00: - [facility] Kenalog Kenalog 2020-0 No 40mg Common (Triamcinol (Triamcinol 3-12 S pirit one) one) 00:00: - [facility] Kenalog Kenalog 2020-0 No 40mg Common (Triamcinol (Triamcinol 3-12 S pirit one) one) 00:00: - [facility] Kenalog Kenalog 2020-0 No 40mg Common (Triamcinol (Triamcinol 3-12 S pirit one) one) 00:00: - [facility] Kenalog Kenalog 2020-0 No 40mg Common (Triamcinol (Triamcinol 3-12 S pirit one) one) 00:00: - [facility] Kenalog Kenalog 2020-0 No 40mg Common (Triamcinol (Triamcinol 3-12 S pirit one) one) 00:00: - [facility] Kenalog Kenalog 2020-0 No 40mg Common (Triamcinol (Triamcinol 3-12 S pirit one) one) 00:00: - [facility] Kenalog Kenalog 2020-0 No 40mg Common (Triamcinol (Triamcinol 3-12 S pirit one) one) 00:00: - [facility] Kenalog Kenalog 2020-0 No 40mg Common (Triamcinol (Triamcinol 3-12 S pirit one) one) 00:00: - [facility] Kenalog Kenalog 2020-0 No 40mg Common (Triamcinol (Triamcinol 3-12 S pirit one) one) 00:00: - [facility] Kenalog Kenalog 2020-0 No 40mg Common (Triamcinol (Triamcinol 3-12 S pirit one) one) 00:00: - [facility] Aspirin 325 No Notes: (Do Memoria MG Enteric 9-14 Not Crush) l Coated 14:00: Do not Johnson Tablet 00 crush or chew. Aspirin 325 No Notes: (Do Memoria MG Enteric 9-14 Not Crush) l Coated 14:00: Do not Johnson Tablet 00 crush or chew. Saline No Notes: Memoria Flush 0.9% 9-14 (Same as: l 02:00: BD Johnson 00 Posiflush) Saline No Notes: Memoria Flush 0.9% 9-14 (Same as: l 02:00: BD Mccracken 00 Posiflush) NIFEdipine Yes 90 mg = 1 Me moria 90 mg oral 9-13 tab, PO, l tablet, 20:53: Daily, 0 Gallo n extended 00 Refill(s) release NIFEdipine Yes 90 mg = 1 Me moria 90 mg oral 9-13 tab, PO, l tablet, 20:53: Daily, 0 Gallo n extended 00 Refill(s) release Protonix No Notes: For Mem oria 9-13 IV push l 20:05: reconstitu Mccracken 00 te with 10 ml 0.9% sodium chloride and push over 2 minutes. (Same as: Protonix) Protonix No Notes: For Mem oria 9-13 IV push l 20:05: reconstitu Johnson 00 te with 10 ml 0.9% sodium chloride and push over 2 minutes. (Same as: Protonix) Nicotine No Notes: Memoria -13 (Same as: l 19:34: Habitrol) Mccracken 00 "Remove old patch before applicatio n of new patch" WASTE: F/P - P Waste Black; E - P Waste Black Nicotine No Notes: Memoria 9-13 (Same as: l 19:34: Habitrol) Mccracken 00 "Remove old patch before applicatio n of new patch" WASTE: F/P - P Waste Black; E - P Waste Black 24 HR No Notes: Memoria Nifedipine 9-13 (Same as: l 90 MG 19:32: Adalat CC, Gallo n Extended 00 Procardia Release XL) Give Tablet on empty [Procardia] stomach. Take 1 hour before or 2 hours after meal; "Avoid grapefruit and grapefruit juice". Do not crush 24 HR No Notes: Memoria Nifedipine 04-15 [...] not exceed l 18:45: 4 gm/day. Johnson 00 (Same as: Tylenol) Acetaminoph No Notes: Abdiel princess en 325 MG / 04-15 (Same as: l Hydrocodone 18:45: [place] Kamini nn Bitartrate 00 325/5) Do 5 [...] 04-15 (Same as: l 18:45: Prinivil, Zestril) Hydralazine No Notes: Abdiel princess 04-15 (Same as: l 18:45: Apresoline ) Push over 5 minutes Saline No Notes: Memoria Flush 0.9% 04-15 (Same as: l 18:45: BD Posiflush) Ondansetron No Notes: Abdiel princess 04-15 (Same as: l 18:45: Zofran) Acetaminoph No Notes: Do M emoria en 04-15 not exceed l 18:45: 4 gm/day. Johnson 00 (Same as: Tylenol) Acetaminoph No Notes: Abdiel princess en 325 MG / 04-15 (Same as: l Hydrocodone 18:45: [place] Kamini nn Bitartrate 00 325/5) Do 5 [...] 13:32:00 CDT, Stop date: 04/15/18 13:32:00 CDT Dilaudid No 1 mg, Memoria 04-15 Route: l 18:32: IVP, ONCE, Dosing Weight 82, kg, Priority: STAT, Start date: 04/15/18 13:32:00 CDT, Stop date: 04/15/18 13:32:00 CDT Nitroglycer No 1 inch, Mem oria in 0.02 04-15 Route: l MG/MG 17:32: TOP, Drug Form: Ointment OINT, Dosing Weight 82, kg, ONCE, Start date: 04/15/18 12:32:00 CDT, Stop date: 04/15/18 12:32:00 CDT Nitroglycer 2018-0 No 1 inch, Mem oria in 0.02 04-15 Route: l MG/MG 17:32: TOP, Drug Johnson Topical 00 Form: Ointment OINT, Dosing Weight 82, kg, ONCE, Start date: 04/15/18 12:32:00 CDT, Stop date: 04/15/18 12:32:00 CDT Ondansetron 2018-0 No 4 mg, Memor ia - Route: l 17:31: IVP, Drug Johnson 00 form: INJ, ONCE, Dosing Weight 82, kg, Priority: STAT, Start date: 04/15/18 12:31:00 CDT, Stop date: 04/15/18 12:31:00 CDT Morphine 2018-0 No 4 mg, Memoria 04-15 Route: l 17:31: IVP, ONCE, Johnson 00 Dosing Weight 82, kg, Priority: STAT, Start date: 04/15/18 12:31:00 CDT, Stop date: 04/15/18 12:31:00 CDT Ondansetron 2018-0 No 4 mg, Memor ia - Route: l 17:31: IVP, Drug Johnson 00 form: INJ, ONCE, Dosing Weight 82, kg, Priority: STAT, Start date: 04/15/18 12:31:00 CDT, Stop date: 04/15/18 12:31:00 CDT Morphine 2018-0 No 4 mg, Memoria 9- Route: l 17:31: IVP, ONCE, Mccracken 00 Dosing Weight 82, kg, Priority: STAT, Start date: 04/15/18 12:31:00 CDT, Stop date: 04/15/18 12:31:00 CDT Aspirin 2018-0 No Notes: Memoria 9-13 Take with l 15:28: food. Mccracken Aspirin 2017-0 No Notes: Memoria 9-13 Take with l 15:28: food. Mccracken Saline No Notes: Memoria Flush 0.9% 9-13 (Same as: l 14:54: BD Johnson 00 Posiflush) Saline No Notes: Memoria Flush 0.9% 9-13 (Same as: l 14:54: BD Johnson 00 Posiflush) Protonix 2017-0 No Notes: Memoria 5-15 Tablet l 12:30: should not Mccracken 00 be chewed or crushed. (Same as: Protonix) Protonix 2018-0 No Notes: Memoria 5-15 Tablet l 12:30: should not Mccracken 00 be chewed or crushed. (Same as: Protonix) Ibuprofen 2018-0 No 600 mg, 1 Mem oria 5-14 tab, l 20:47: Route: PO, Johnson 00 Drug form: TAB, Q6H, Dosing Weight 81.818, kg, PRN Pain Score 1-3, Start date: 12/14/17 15:47:00 CDT, Duration: 30 day, Stop date: 01/13/18 15:46:00 CDT Ibuprofen 2018-0 No 600 mg, 1 Mem oria 5-14 tab, l 20:47: Route: PO, Johnson 00 Drug form: TAB, Q6H, Dosing Weight 81.818, kg, PRN Pain Score 1-3, Start date: 12/14/17 15:47:00 CDT, Duration: 30 day, Stop date: 01/13/18 15:46:00 CDT Morphine 2018-0 No 4 mg, Memoria 5-14 Route: l 12:50: IVP, ONCE, Dosing Weight 81.818, kg, Priority: STAT, Start date: 12/14/17 7:50:00 CDT, Stop date: 12/14/17 7:50:00 CDT Morphine 2018-0 No 4 mg, Memoria 5-14 Route: l 12:50: IVP, ONCE, Dosing Weight 81.818, kg, Priority: STAT, Start date: 12/14/17 7:50:00 CDT, Stop date: 12/14/17 7:50:00 CDT Nitroglycer 2017-0 No Notes: Abdiel princess in 12-14 (Same l 12:30: as:Tridil) Johnson 00 Final conc = 0.4 mg/ml. Premix bottle. Nitroglycer 2017-0 No Notes: Abdiel princess in 12-14 (Same l 12:30: as:Tridil) Final conc = 0.4 mg/ml. Premix bottle. Nitroglycer 2018-0 No 50 mg, 250 Memoria in 5-14 mL, Rate: l 12:29: Titrate, Start Dose: 10 microgram/ min, Titration: 10 microgram/ min every 5 minutes, Goal(s): Chest pain and SBP between 100 - 150 mmHg, Max Dose: 200 mcg/min, Route: IV, Dosing Weight 81.818 kg, Total Volume: 250, Start date: 12/01... Nitroglycer 2018-0 No 50 mg, 250 Memoria in 5-14 mL, Rate: l 12:29: Titrate, Start Dose: 10 microgram/ min, Titration: 10 microgram/ min every 5 minutes, Goal(s): Chest pain and SBP between 100 - 150 mmHg, Max Dose: 200 mcg/min, Route: IV, Dosing Weight 81.818 kg, Total Volume: 250, Start date: 12/01... Morphine 2018-0 No 4 mg, Memoria 5-14 Route: l 12:07: IVP, ONCE, Johnson 00 kg, Priority: STAT, Start date: 12/14/17 7:07:00 CDT, Stop date: 12/14/17 7:07:00 CDT Ondansetron 2018-0 No 4 mg, Memor ia 5-14 Route: l 12:07: IVP, ONCE, Johnson 00 kg, Priority: STAT, Start date: 12/14/17 7:07:00 CDT, Stop date: 12/14/17 7:07:00 CDT Saline 2018-0 No Notes: Memoria Flush 0.9% 5-14 Same as: l 12:07: BD Johnson 00 Posiflush Sterile Morphine 2018-0 No 4 mg, Memoria 5-14 Route: l 12:07: IVP, ONCE, Mccracken 00 kg, Priority: STAT, Start date: 12/14/17 7:07:00 CDT, Stop date: 12/14/17 7:07:00 CDT Ondansetron 2018-0 No 4 mg, Memor ia 5-14 Route: l 12:07: IVP, ONCE, Johnson 00 kg, Priority: STAT, Start date: 12/14/17 7:07:00 CDT, Stop date: 12/14/17 7:07:00 CDT Saline 2018-0 No Notes: Memoria Flush 0.9% 5-14 Same as: l 12:07: BD Mccracken 00 Posiflush Sterile Symbicort Symbicort Yes Jun 2 puffs Common [facility] Promethazin Promethazin Yes Jun 10 ml as Common e HCl e HCl [facility] needed [facility] Losartan Losartan Yes Jun 1 tablet C ommon Potassium Potassium [facility] Gabapentin Gabapentin No 1{capsu BID Gabapentin 300 MG 300 MG le} 300 MG Citalopram Citalopram No Citalopram Hydrobromid Hydrobromid Hydrobromi e 10 MG e 10 MG de 10 MG Aspir-81 81 Aspir-81 81 No 1{table QD Aspir-81 MG MG t} 81 MG Albuterol Albuterol No Albuterol Sulfate HFA Sulfate HFA Sulfate 108 (90 108 (90 HFA 108 Base) Base) (90 Base) MCG/ACT MCG/ACT MCG/ACT amLODIPine amLODIPine No 1{table QD amLODIPine Besylate 10 Besylate 10 t_in_th Besylate MG MG e_eveni 10 MG ng} Citalopram Citalopram No 1{table QD Citalopram Hydrobromid Hydrobromid t} Hydrobromi e 10 MG e 10 MG de 10 MG ProAir HFA ProAir HFA No 2{puffs ProAir HFA 108 (90 108 (90 _as_nee 108 (90 Base) Base) ded} Base) MCG/ACT MCG/ACT MCG/ACT Furosemide Furosemide No Furosemide Vitamin C Vitamin C No Vitamin C Zinc Zinc No Zinc Losartan Losartan No 1{table QD Losartan Potassium Potassium t} Potassium 100 MG 100 MG 100 MG Omeprazole Omeprazole No Omeprazole 40 MG 40 MG 40 MG amLODIPine amLODIPine No amLODIPine Besylate 10 Besylate 10 Besylate MG MG 10 MG Gabapentin Gabapentin No 1{capsu BID Gabapentin 300 MG 300 MG le} 300 MG Citalopram Citalopram No Citalopram Hydrobromid Hydrobromid Hydrobromi e 10 MG e 10 MG de 10 MG Vitamin C Vitamin C No Vitamin C Albuterol Albuterol No Albuterol Sulfate HFA Sulfate HFA Sulfate 108 (90 108 (90 HFA 108 Base) Base) (90 Base) MCG/ACT MCG/ACT MCG/ACT amLODIPine amLODIPine No 1{table QD amLODIPine Besylate 10 Besylate 10 t_in_th Besylate MG MG e_eveni 10 MG ng} Citalopram Citalopram No 1{table QD Citalopram Hydrobromid Hydrobromid t} Hydrobromi e 10 MG e 10 MG de 10 MG ProAir HFA ProAir HFA No 2{puffs ProAir HFA 108 (90 108 (90 _as_nee 108 (90 Base) Base) ded} Base) MCG/ACT MCG/ACT MCG/ACT Furosemide Furosemide No Furosemide Zinc Zinc No Zinc Aspir-81 81 Aspir-81 81 No 1{table QD Aspir-81 MG MG t} 81 MG Losartan Losartan No 1{table QD Losartan Potassium Potassium t} Potassium 100 MG 100 MG 100 MG Omeprazole Omeprazole No Omeprazole 40 MG 40 MG 40 MG amLODIPine amLODIPine No amLODIPine Besylate 10 Besylate 10 Besylate MG MG 10 MG Gabapentin Gabapentin No 1{capsu BID Gabapentin 300 MG 300 MG le} 300 MG Citalopram Citalopram No Citalopram Hydrobromid Hydrobromid Hydrobromi e 10 MG e 10 MG de 10 MG Vitamin C Vitamin C No Vitamin C Albuterol Albuterol No Albuterol Sulfate HFA Sulfate HFA Sulfate 108 (90 108 (90 HFA 108 Base) Base) (90 Base) MCG/ACT MCG/ACT MCG/ACT amLODIPine amLODIPine No 1{table QD amLODIPine Besylate 10 Besylate 10 t_in_th Besylate MG MG e_eveni 10 MG ng} Citalopram Citalopram No 1{table QD Citalopram Hydrobromid Hydrobromid t} Hydrobromi e 10 MG e 10 MG de 10 MG ProAir HFA ProAir HFA No 2{puffs ProAir HFA 108 (90 108 (90 _as_nee 108 (90 Base) Base) ded} Base) MCG/ACT MCG/ACT MCG/ACT Furosemide Furosemide No Furosemide Zinc Zinc No Zinc Aspir-81 81 Aspir-81 81 No 1{table QD Aspir-81 MG MG t} 81 MG Losartan Losartan No 1{table QD Losartan Potassium Potassium t} Potassium 100 MG 100 MG 100 MG Omeprazole Omeprazole No Omeprazole 40 MG 40 MG 40 MG amLODIPine amLODIPine No amLODIPine Besylate 10 Besylate 10 Besylate MG MG 10 MG amLODIPine amLODIPine No amLODIPine Besylate 10 Besylate 10 Besylate MG MG 10 MG Omeprazole Omeprazole No Omeprazole 40 MG 40 MG 40 MG Albuterol Albuterol No Albuterol Sulfate HFA Sulfate HFA Sulfate 108 (90 108 (90 HFA 108 Base) Base) (90 Base) MCG/ACT MCG/ACT MCG/ACT Citalopram Citalopram No Citalopram Hydrobromid Hydrobromid Hydrobromi e 10 MG e 10 MG de 10 MG amLODIPine amLODIPine No 1{table QD amLODIPine Besylate 10 Besylate 10 t_in_th Besylate MG MG e_eveni 10 MG ng} Losartan Losartan No 1{table QD Losartan Potassium Potassium t} Potassium 100 MG 100 MG 100 MG Citalopram Citalopram No 1{table QD Citalopram Hydrobromid Hydrobromid t} Hydrobromi e 10 MG e 10 MG de 10 MG Zinc Zinc No Zinc ProAir HFA ProAir HFA No 2{puffs ProAir HFA 108 (90 108 (90 _as_nee 108 (90 Base) Base) ded} Base) MCG/ACT MCG/ACT MCG/ACT Gabapentin Gabapentin No 1{capsu BID Gabapentin 300 MG 300 MG le} 300 MG Furosemide Furosemide No Furosemide Aspir-81 81 Aspir-81 81 No 1{table QD Aspir-81 MG MG t} 81 MG Butalbital- Butalbital- No 1{capsu 6xD Butalbital Aspirin-Caf Aspirin-Caf le_as_n -Aspirin-C feine feine eeded} affeine 50-325-40 50-325-40 50-325-40 MG MG MG Vitamin C Vitamin C No Vitamin C amLODIPine amLODIPine No amLODIPine Besylate 10 Besylate 10 Besylate MG MG 10 MG Omeprazole Omeprazole No Omeprazole 40 MG 40 MG 40 MG Albuterol Albuterol No Albuterol Sulfate HFA Sulfate HFA Sulfate 108 (90 108 (90 HFA 108 Base) Base) (90 Base) MCG/ACT MCG/ACT MCG/ACT Citalopram Citalopram No Citalopram Hydrobromid Hydrobromid Hydrobromi e 10 MG e 10 MG de 10 MG Citalopram Citalopram No 1{table QD Citalopram Hydrobromid Hydrobromid t} Hydrobromi e 10 MG e 10 MG de 10 MG amLODIPine amLODIPine No 1{table QD amLODIPine Besylate 10 Besylate 10 t_in_th Besylate MG MG e_eveni 10 MG ng} Zinc Zinc No Zinc ProAir HFA ProAir HFA No 2{puffs ProAir HFA 108 (90 108 (90 _as_nee 108 (90 Base) Base) ded} Base) MCG/ACT MCG/ACT MCG/ACT Losartan Losartan No 1{table QD Losartan Potassium Potassium t} Potassium 100 MG 100 MG 100 MG Gabapentin Gabapentin No 1{capsu BID Gabapentin 300 MG 300 MG le} 300 MG Furosemide Furosemide No Furosemide Aspir-81 81 Aspir-81 81 No 1{table QD Aspir-81 MG MG t} 81 MG Butalbital- Butalbital- No 1{capsu 6xD Butalbital Aspirin-Caf Aspirin-Caf le_as_n -Aspirin-C feine feine eeded} affeine 50-325-40 50-325-40 50-325-40 MG MG MG Vitamin C Vitamin C No Vitamin C amLODIPine amLODIPine No amLODIPine Besylate 10 Besylate 10 Besylate MG MG 10 MG Omeprazole Omeprazole No Omeprazole 40 MG 40 MG 40 MG Furosemide Furosemide No Furosemide Citalopram Citalopram No Citalopram Hydrobromid Hydrobromid Hydrobromi e 10 MG e 10 MG de 10 MG amLODIPine amLODIPine No 1{table QD amLODIPine Besylate 10 Besylate 10 t_in_th Besylate MG MG e_eveni 10 MG ng} Citalopram Citalopram No 1{table QD Citalopram Hydrobromid Hydrobromid t} Hydrobromi e 10 MG e 10 MG de 10 MG Butalbital- Butalbital- No 1{capsu 6xD Butalbital Aspirin-Caf Aspirin-Caf le_as_n -Aspirin-C feine feine eeded} affeine 50-325-40 50-325-40 50-325-40 MG MG MG ProAir HFA ProAir HFA No 2{puffs ProAir HFA 108 (90 108 (90 _as_nee 108 (90 Base) Base) ded} Base) MCG/ACT MCG/ACT MCG/ACT Albuterol Albuterol No Albuterol Sulfate HFA Sulfate HFA Sulfate 108 (90 108 (90 HFA 108 Base) Base) (90 Base) MCG/ACT MCG/ACT MCG/ACT Aspir-81 81 Aspir-81 81 No 1{table QD Aspir-81 MG MG t} 81 MG Vitamin C Vitamin C No Vitamin C Zinc Zinc No Zinc Losartan Losartan No 1{table QD Losartan Potassium Potassium t} Potassium 100 MG 100 MG 100 MG Gabapentin Gabapentin No 1{capsu BID Gabapentin 300 MG 300 MG le} 300 MG valACYclovi valACYclovi No 1{table BID valACYclov r HCl 1 GM r HCl 1 GM t} ir HCl 1 GM Losartan Losartan No 1{table QD Losartan Potassium Potassium t} Potassium 100 MG 100 MG 100 MG ProAir HFA ProAir HFA No 2{puffs ProAir HFA 108 (90 108 (90 _as_nee 108 (90 Base) Base) ded} Base) MCG/ACT MCG/ACT MCG/ACT amLODIPine amLODIPine No 1{table QD amLODIPine Besylate 10 Besylate 10 t_in_th Besylate MG MG e_eveni 10 MG ng} Aspir-81 81 Aspir- 81 No 1{table QD Aspir-81 MG MG t} 81 MG Citalopram Citalopram No 1{table QD Citalopram Hydrobromid Hydrobromid t} Hydrobromi e 10 MG e 10 MG de 10 MG Citalopram Citalopram No Citalopram Hydrobromid Hydrobromid Hydrobromi e 10 MG e 10 MG de 10 MG Gabapentin Gabapentin No QD Gabapentin 300 MG 300 MG 300 MG Gabapentin Gabapentin No 1{capsu BID Gabapentin 300 MG 300 MG le} 300 MG Albuterol Albuterol No Albuterol Sulfate HFA Sulfate HFA Sulfate 108 (90 108 (90 HFA 108 Base) Base) (90 Base) MCG/ACT MCG/ACT MCG/ACT Butalbital- Butalbital- No 1{capsu 6xD Butalbital Aspirin-Caf Aspirin-Caf le_as_n -Aspirin-C feine feine eeded} affeine 50-325-40 50-325-40 50-325-40 MG MG MG amLODIPine amLODIPine No amLODIPine Besylate 10 Besylate 10 Besylate MG MG 10 MG Vitamin C Vitamin C No Vitamin C Zinc Zinc No Zinc Furosemide Furosemide No Furosemide Omeprazole Omeprazole No Omeprazole 40 MG 40 MG 40 MG Lidocaine 5 Lidocaine 5 No 1{appli TID Lidocaine % % cation_ 5 % to_affe cted_ar ea_as_n eeded} valACYclovi valACYclovi No 1{table BID valACYclov r HCl 1 GM r HCl 1 GM t} ir HCl 1 GM Losartan Losartan No 1{table QD Losartan Potassium Potassium t} Potassium 100 MG 100 MG 100 MG ProAir HFA ProAir HFA No 2{puffs ProAir HFA 108 (90 108 (90 _as_nee 108 (90 Base) Base) ded} Base) MCG/ACT MCG/ACT MCG/ACT valACYclovi valACYclovi No 1{table BID valACYclov r HCl 1 GM r HCl 1 GM t} ir HCl 1 GM Losartan Losartan No 1{table QD Losartan Potassium Potassium t} Potassium 100 MG 100 MG 100 MG ProAir HFA ProAir HFA No 2{puffs ProAir HFA 108 (90 108 (90 _as_nee 108 (90 Base) Base) ded} Base) MCG/ACT MCG/ACT MCG/ACT amLODIPine amLODIPine No 1{table QD amLODIPine Besylate 10 Besylate 10 t_in_th Besylate MG MG e_eveni 10 MG ng} amLODIPine amLODIPine No 1{table QD amLODIPine Besylate 10 Besylate 10 t_in_th Besylate MG MG e_eveni 10 MG ng} Aspir-81 81 Aspir-81 81 No 1{table QD Aspir-81 MG MG t} 81 MG Citalopram Citalopram No 1{table QD Citalopram Hydrobromid Hydrobromid t} Hydrobromi e 10 MG e 10 MG de 10 MG Citalopram Citalopram No Citalopram Hydrobromid Hydrobromid Hydrobromi e 10 MG e 10 MG de 10 MG Gabapentin Gabapentin No QD Gabapentin 300 MG 300 MG 300 MG Gabapentin Gabapentin No 1{capsu BID Gabapentin 300 MG 300 MG le} 300 MG Albuterol Albuterol No Albuterol Sulfate HFA Sulfate HFA Sulfate 108 (90 108 (90 HFA 108 Base) Base) (90 Base) MCG/ACT MCG/ACT MCG/ACT Butalbital- Butalbital- No 1{capsu 6xD Butalbital Aspirin-Caf Aspirin-Caf le_as_n -Aspirin-C feine feine eeded} affeine 50-325-40 50-325-40 50-325-40 MG MG MG amLODIPine amLODIPine No amLODIPine Besylate 10 Besylate 10 Besylate MG MG 10 MG Vitamin C Vitamin C No Vitamin C -81 81 - 81 No 1{table QD Aspir-81 MG MG t} 81 MG Zinc Zinc No Zinc Furosemide Furosemide No Furosemide Omeprazole Omeprazole No Omeprazole 40 MG 40 MG 40 MG Lidocaine 5 Lidocaine 5 No 1{appli TID Lidocaine % % cation_ 5 % to_affe cted_ar ea_as_n eeded} Citalopram Citalopram No 1{table QD Citalopram Hydrobromid Hydrobromid t} Hydrobromi e 10 MG e 10 MG de 10 MG Citalopram Citalopram No Citalopram Hydrobromid Hydrobromid Hydrobromi e 10 MG e 10 MG de 10 MG Gabapentin Gabapentin No QD Gabapentin 300 MG 300 MG 300 MG valACYclovi valACYclovi No 1{table BID valACYclov r HCl 1 GM r HCl 1 GM t} ir HCl 1 GM Losartan Losartan No 1{table QD Losartan Potassium Potassium t} Potassium 100 MG 100 MG 100 MG ProAir HFA ProAir HFA No 2{puffs ProAir HFA 108 (90 108 (90 _as_nee 108 (90 Base) Base) ded} Base) MCG/ACT MCG/ACT MCG/ACT amLODIPine amLODIPine No 1{table QD amLODIPine Besylate 10 Besylate 10 t_in_th Besylate MG MG e_eveni 10 MG ng} - 81 - 81 No 1{table QD Aspir-81 MG MG t} 81 MG Citalopram Citalopram No 1{table QD Citalopram Hydrobromid Hydrobromid t} Hydrobromi e 10 MG e 10 MG de 10 MG Gabapentin Gabapentin No 1{capsu BID Gabapentin 300 MG 300 MG le} 300 MG Citalopram Citalopram No Citalopram Hydrobromid Hydrobromid Hydrobromi e 10 MG e 10 MG de 10 MG Gabapentin Gabapentin No QD Gabapentin 300 MG 300 MG 300 MG Gabapentin Gabapentin No 1{capsu BID Gabapentin 300 MG 300 MG le} 300 MG Albuterol Albuterol No Albuterol Sulfate HFA Sulfate HFA Sulfate 108 (90 108 (90 HFA 108 Base) Base) (90 Base) MCG/ACT MCG/ACT MCG/ACT Butalbital- Butalbital- No 1{capsu 6xD Butalbital Aspirin-Caf Aspirin-Caf le_as_n -Aspirin-C feine feine eeded} affeine 50-325-40 50-325-40 50-325-40 MG MG MG amLODIPine amLODIPine No amLODIPine Besylate 10 Besylate 10 Besylate MG MG 10 MG Vitamin C Vitamin C No Vitamin C Zinc Zinc No Zinc Furosemide Furosemide No Furosemide Omeprazole Omeprazole No Omeprazole 40 MG 40 MG 40 MG Albuterol Albuterol No Albuterol Sulfate HFA Sulfate HFA Sulfate 108 (90 108 (90 HFA 108 Base) Base) (90 Base) MCG/ACT MCG/ACT MCG/ACT Lidocaine 5 Lidocaine 5 No 1{appli TID Lidocaine % % cation_ 5 % to_affe cted_ar ea_as_n eeded} Butalbital- Butalbital- No 1{capsu 6xD Butalbital Aspirin-Caf Aspirin-Caf le_as_n -Aspirin-C feine feine eeded} affeine 50-325-40 50-325-40 50-325-40 MG MG MG amLODIPine amLODIPine No amLODIPine Besylate 10 Besylate 10 Besylate MG MG 10 MG Vitamin C Vitamin C No Vitamin C valACYclovi valACYclovi No 1{table BID valACYclov r HCl 1 GM r HCl 1 GM t} ir HCl 1 GM Losartan Losartan No 1{table QD Losartan Potassium Potassium t} Potassium 100 MG 100 MG 100 MG Gabapentin Gabapentin No 1{capsu BID Gabapentin 300 MG 300 MG le} 300 MG amLODIPine amLODIPine No 1{table QD amLODIPine Besylate 10 Besylate 10 t_in_th Besylate MG MG e_eveni 10 MG ng} amLODIPine amLODIPine No amLODIPine Besylate 10 Besylate 10 Besylate MG MG 10 MG Citalopram Citalopram No 1{table QD Citalopram Hydrobromid Hydrobromid t} Hydrobromi e 10 MG e 10 MG de 10 MG Citalopram Citalopram No Citalopram Hydrobromid Hydrobromid Hydrobromi e 10 MG e 10 MG de 10 MG Aspir-81 81 Aspir-81 81 No 1{table QD Aspir-81 MG MG t} 81 MG Gabapentin Gabapentin No 1{capsu BID Gabapentin 300 MG 300 MG le} 300 MG Albuterol Albuterol No Albuterol Sulfate HFA Sulfate HFA Sulfate 108 (90 108 (90 HFA 108 Base) Base) (90 Base) MCG/ACT MCG/ACT MCG/ACT Zinc Zinc No Zinc Butalbital- Butalbital- No 1{capsu 6xD Butalbital Aspirin-Caf Aspirin-Caf le_as_n -Aspirin-C feine feine eeded} affeine 50-325-40 50-325-40 50-325-40 MG MG MG Lidocaine 5 Lidocaine 5 No 1{appli TID Lidocaine % % cation_ 5 % to_affe cted_ar ea_as_n eeded} Vitamin C Vitamin C No Vitamin C ProAir HFA ProAir HFA No 2{puffs ProAir HFA 108 (90 108 (90 _as_nee 108 (90 Base) Base) ded} Base) MCG/ACT MCG/ACT MCG/ACT Furosemide Furosemide No Furosemide Omeprazole Omeprazole No Omeprazole 40 MG 40 MG 40 MG Zinc Zinc No Zinc Furosemide Furosemide No Furosemide Omeprazole Omeprazole No Omeprazole 40 MG 40 MG 40 MG valACYclovi valACYclovi No 1{table BID valACYclov r HCl 1 GM r HCl 1 GM t} ir HCl 1 GM Losartan Losartan No 1{table QD Losartan Potassium Potassium t} Potassium 100 MG 100 MG 100 MG Lidocaine 5 Lidocaine 5 No 1{appli TID Lidocaine % % cation_ 5 % to_affe cted_ar ea_as_n eeded} Gabapentin Gabapentin No 1{capsu BID Gabapentin 300 MG 300 MG le} 300 MG amLODIPine amLODIPine No 1{table QD amLODIPine Besylate 10 Besylate 10 t_in_th Besylate MG MG e_eveni 10 MG ng} amLODIPine amLODIPine No amLODIPine Besylate 10 Besylate 10 Besylate MG MG 10 MG Citalopram Citalopram No 1{table QD Citalopram Hydrobromid Hydrobromid t} Hydrobromi e 10 MG e 10 MG de 10 MG Citalopram Citalopram No Citalopram Hydrobromid Hydrobromid Hydrobromi e 10 MG e 10 MG de 10 MG Aspir-81 81 Aspir-81 81 No 1{table QD Aspir-81 MG MG t} 81 MG Gabapentin Gabapentin No 1{capsu BID Gabapentin 300 MG 300 MG le} 300 MG Albuterol Albuterol No Albuterol Sulfate HFA Sulfate HFA Sulfate 108 (90 108 (90 HFA 108 Base) Base) (90 Base) MCG/ACT MCG/ACT MCG/ACT Butalbital- Butalbital- No 1{capsu 6xD Butalbital Aspirin-Caf Aspirin-Caf le_as_n -Aspirin-C feine feine eeded} affeine 50-325-40 50-325-40 50-325-40 MG MG MG Lidocaine 5 Lidocaine 5 No 1{appli TID Lidocaine % % cation_ 5 % to_affe cted_ar ea_as_n eeded} Vitamin C Vitamin C No Vitamin C ProAir HFA ProAir HFA No 2{puffs ProAir HFA 108 (90 108 (90 _as_nee 108 (90 Base) Base) ded} Base) MCG/ACT MCG/ACT MCG/ACT Furosemide Furosemide No Furosemide Omeprazole Omeprazole No Omeprazole 40 MG 40 MG 40 MG Zinc Zinc No Zinc amLODIPine amLODIPine No 1{table QD amLODIPine Besylate 10 Besylate 10 t_in_th Besylate MG MG e_eveni 10 MG ng} Citalopram Citalopram No 1{table QD Citalopram Hydrobromid Hydrobromid t} Hydrobromi e 10 MG e 10 MG de 10 MG Gabapentin Gabapentin No 1{capsu BID Gabapentin 300 MG 300 MG le} 300 MG Losartan Losartan No 1{table QD Losartan Potassium Potassium t} Potassium 100 MG 100 MG 100 MG amLODIPine amLODIPine No amLODIPine Besylate 10 Besylate 10 Besylate MG MG 10 MG Omeprazole Omeprazole No Omeprazole 40 MG 40 MG 40 MG Citalopram Citalopram No Citalopram Hydrobromid Hydrobromid Hydrobromi e 10 MG e 10 MG de 10 MG Aspir-81 81 Aspir-81 81 No 1{table QD Aspir-81 MG MG t} 81 MG Gabapentin Gabapentin No 1{capsu BID Gabapentin 300 MG 300 MG le} 300 MG Albuterol Albuterol No Albuterol Sulfate HFA Sulfate HFA Sulfate 108 (90 108 (90 HFA 108 Base) Base) (90 Base) MCG/ACT MCG/ACT MCG/ACT Butalbital- Butalbital- No 1{capsu 6xD Butalbital Aspirin-Caf Aspirin-Caf le_as_n -Aspirin-C feine feine eeded} affeine 50-325-40 50-325-40 50-325-40 MG MG MG Lidocaine 5 Lidocaine 5 No 1{appli TID Lidocaine % % cation_ 5 % to_affe cted_ar ea_as_n eeded} Vitamin C Vitamin C No Vitamin C ProAir HFA ProAir HFA No 2{puffs ProAir HFA 108 (90 108 (90 _as_nee 108 (90 Base) Base) ded} Base) MCG/ACT MCG/ACT MCG/ACT Furosemide Furosemide No Furosemide valACYclovi valACYclovi No valACYclov r HCl 1 GM r HCl 1 GM ir HCl 1 GM Zinc Zinc No Zinc Gabapentin Gabapentin No 1{capsu BID Gabapentin 300 MG 300 MG le} 300 MG Butalbital- Butalbital- No 1{capsu 6xD Butalbital Aspirin-Caf Aspirin-Caf le_as_n -Aspirin-C feine feine eeded} affeine 50-325-40 50-325-40 50-325-40 MG MG MG Zinc Zinc No Zinc Losartan Losartan No 1{table QD Losartan Potassium Potassium t} Potassium 100 MG 100 MG 100 MG ProAir HFA ProAir HFA No 2{puffs ProAir HFA 108 (90 108 (90 _as_nee 108 (90 Base) Base) ded} Base) MCG/ACT MCG/ACT MCG/ACT valACYclovi valACYclovi No valACYclov r HCl 1 GM r HCl 1 GM ir HCl 1 GM amLODIPine amLODIPine No 1{table QD amLODIPine Besylate 10 Besylate 10 t_in_th Besylate MG MG e_eveni 10 MG ng} Omeprazole Omeprazole No Omeprazole 40 MG 40 MG 40 MG Citalopram Citalopram No 1{table QD Citalopram Hydrobromid Hydrobromid t} Hydrobromi e 10 MG e 10 MG de 10 MG Aspir-81 81 Aspir-81 81 No 1{table QD Aspir-81 MG MG t} 81 MG Vitamin C Vitamin C No Vitamin C Losartan Losartan No 1{table QD Losartan Potassium Potassium t} Potassium 100 MG 100 MG 100 MG Gabapentin Gabapentin No 1{capsu BID Gabapentin 300 MG 300 MG le} 300 MG Albuterol Albuterol No Albuterol Sulfate HFA Sulfate HFA Sulfate 108 (90 108 (90 HFA 108 Base) Base) (90 Base) MCG/ACT MCG/ACT MCG/ACT amLODIPine amLODIPine No amLODIPine Besylate 10 Besylate 10 Besylate MG MG 10 MG Trelegy Trelegy No 1{puff} QD Trelegy Ellipta Ellipta Ellipta 200-62.5-25 200-62.5-25 200-62.5-2 MCG/INH MCG/INH 5 MCG/INH Lidocaine 5 Lidocaine 5 No 1{appli TID Lidocaine % % cation_ 5 % to_affe cted_ar ea_as_n eeded} Furosemide Furosemide No Furosemide Citalopram Citalopram No Citalopram Hydrobromid Hydrobromid Hydrobromi e 10 MG e 10 MG de 10 MG Gabapentin Gabapentin No 1{capsu BID Gabapentin 300 MG 300 MG le} 300 MG Butalbital- Butalbital- No 1{capsu 6xD Butalbital Aspirin-Caf Aspirin-Caf le_as_n -Aspirin-C feine feine eeded} affeine 50-325-40 50-325-40 50-325-40 MG MG MG Zinc Zinc No Zinc Losartan Losartan No 1{table QD Losartan Potassium Potassium t} Potassium 100 MG 100 MG 100 MG ProAir HFA ProAir HFA No 2{puffs ProAir HFA 108 (90 108 (90 _as_nee 108 (90 Base) Base) ded} Base) MCG/ACT MCG/ACT MCG/ACT valACYclovi valACYclovi No valACYclov r HCl 1 GM r HCl 1 GM ir HCl 1 GM amLODIPine amLODIPine No 1{table QD amLODIPine Besylate 10 Besylate 10 t_in_th Besylate MG MG e_eveni 10 MG ng} Omeprazole Omeprazole No Omeprazole 40 MG 40 MG 40 MG Citalopram Citalopram No 1{table QD Citalopram Hydrobromid Hydrobromid t} Hydrobromi e 10 MG e 10 MG de 10 MG Aspir-81 81 Aspir-81 81 No 1{table QD Aspir-81 MG MG t} 81 MG Vitamin C Vitamin C No Vitamin C Losartan Losartan No 1{table QD Losartan Potassium Potassium t} Potassium 100 MG 100 MG 100 MG Gabapentin Gabapentin No 1{capsu BID Gabapentin 300 MG 300 MG le} 300 MG Albuterol Albuterol No Albuterol Sulfate HFA Sulfate HFA Sulfate 108 (90 108 (90 HFA 108 Base) Base) (90 Base) MCG/ACT MCG/ACT MCG/ACT amLODIPine amLODIPine No amLODIPine Besylate 10 Besylate 10 Besylate MG MG 10 MG Trelegy Trelegy No 1{puff} QD Trelegy Ellipta Ellipta Ellipta 200-62.5-25 200-62.5-25 200-62.5-2 MCG/INH MCG/INH 5 MCG/INH Lidocaine 5 Lidocaine 5 No 1{appli TID Lidocaine % % cation_ 5 % to_affe cted_ar ea_as_n eeded} Furosemide Furosemide No Furosemide Citalopram Citalopram No Citalopram Hydrobromid Hydrobromid Hydrobromi e 10 MG e 10 MG de 10 MG Gabapentin Gabapentin No 1{capsu BID Gabapentin 300 MG 300 MG le} 300 MG Butalbital- Butalbital- No 1{capsu 6xD Butalbital Aspirin-Caf Aspirin-Caf le_as_n -Aspirin-C feine feine eeded} affeine 50-325-40 50-325-40 50-325-40 MG MG MG Zinc Zinc No Zinc Losartan Losartan No 1{table QD Losartan Potassium Potassium t} Potassium 100 MG 100 MG 100 MG ProAir HFA ProAir HFA No 2{puffs ProAir HFA 108 (90 108 (90 _as_nee 108 (90 Base) Base) ded} Base) MCG/ACT MCG/ACT MCG/ACT valACYclovi valACYclovi No valACYclov r HCl 1 GM r HCl 1 GM ir HCl 1 GM amLODIPine amLODIPine No 1{table QD amLODIPine Besylate 10 Besylate 10 t_in_th Besylate MG MG e_eveni 10 MG ng} Omeprazole Omeprazole No Omeprazole 40 MG 40 MG 40 MG Citalopram Citalopram No 1{table QD Citalopram Hydrobromid Hydrobromid t} Hydrobromi e 10 MG e 10 MG de 10 MG Aspir-81 81 Aspir-81 81 No 1{table QD Aspir-81 MG MG t} 81 MG Vitamin C Vitamin C No Vitamin C Losartan Losartan No 1{table QD Losartan Potassium Potassium t} Potassium 100 MG 100 MG 100 MG Gabapentin Gabapentin No 1{capsu BID Gabapentin 300 MG 300 MG le} 300 MG Albuterol Albuterol No Albuterol Sulfate HFA Sulfate HFA Sulfate 108 (90 108 (90 HFA 108 Base) Base) (90 Base) MCG/ACT MCG/ACT MCG/ACT amLODIPine amLODIPine No amLODIPine Besylate 10 Besylate 10 Besylate MG MG 10 MG Trelegy Trelegy No 1{puff} QD Trelegy Ellipta Ellipta Ellipta 200-62.5-25 200-62.5-25 200-62.5-2 MCG/INH MCG/INH 5 MCG/INH Lidocaine 5 Lidocaine 5 No 1{appli TID Lidocaine % % cation_ 5 % to_affe cted_ar ea_as_n eeded} Furosemide Furosemide No Furosemide Citalopram Citalopram No Citalopram Hydrobromid Hydrobromid Hydrobromi e 10 MG e 10 MG de 10 MG Losartan Losartan No 1{table QD Losartan Potassium Potassium t} Potassium 100 MG 100 MG 100 MG Butalbital- Butalbital- No 1{capsu 6xD Butalbital Aspirin-Caf Aspirin-Caf le_as_n -Aspirin-C feine feine eeded} affeine 50-325-40 50-325-40 50-325-40 MG MG MG valACYclovi valACYclovi No valACYclov r HCl 1 GM r HCl 1 GM ir HCl 1 GM Zinc Zinc No Zinc ProAir HFA ProAir HFA No 2{puffs ProAir HFA 108 (90 108 (90 _as_nee 108 (90 Base) Base) ded} Base) MCG/ACT MCG/ACT MCG/ACT Trelegy Trelegy No 1{puff} QD Trelegy Ellipta Ellipta Ellipta 200-62.5-25 200-62.5-25 200-62.5-2 MCG/INH MCG/INH 5 MCG/INH amLODIPine amLODIPine No 1{table QD amLODIPine Besylate 10 Besylate 10 t_in_th Besylate MG MG e_eveni 10 MG ng} Omeprazole Omeprazole No Omeprazole 40 MG 40 MG 40 MG Citalopram Citalopram No 1{table QD Citalopram Hydrobromid Hydrobromid t} Hydrobromi e 10 MG e 10 MG de 10 MG Gabapentin Gabapentin No Gabapentin 300 MG 300 MG 300 MG Vitamin C Vitamin C No Vitamin C Losartan Losartan No 1{table QD Losartan Potassium Potassium t} Potassium 100 MG 100 MG 100 MG amLODIPine amLODIPine No amLODIPine Besylate 10 Besylate 10 Besylate MG MG 10 MG Albuterol Albuterol No Albuterol Sulfate HFA Sulfate HFA Sulfate 108 (90 108 (90 HFA 108 Base) Base) (90 Base) MCG/ACT MCG/ACT MCG/ACT Aspir-81 81 Aspir-81 81 No 1{table QD Aspir-81 MG MG t} 81 MG Lidocaine 5 Lidocaine 5 No 1{appli TID Lidocaine % % cation_ 5 % to_affe cted_ar ea_as_n eeded} Furosemide Furosemide No Furosemide Citalopram Citalopram No Citalopram Hydrobromid Hydrobromid Hydrobromi e 10 MG e 10 MG de 10 MG valACYclovi valACYclovi No 1{table BID valACYclov r HCl 1 GM r HCl 1 GM t} ir HCl 1 GM Losartan Losartan No 1{table QD Losartan Potassium Potassium t} Potassium 100 MG 100 MG 100 MG Butalbital- Butalbital- No 1{capsu 6xD Butalbital Aspirin-Caf Aspirin-Caf le_as_n -Aspirin-C feine feine eeded} affeine 50-325-40 50-325-40 50-325-40 MG MG MG Citalopram Citalopram No Citalopram Hydrobromid Hydrobromid Hydrobromi e 10 MG e 10 MG de 10 MG valACYclovi valACYclovi No valACYclov r HCl 1 GM r HCl 1 GM ir HCl 1 GM ProAir HFA ProAir HFA No 2{puffs ProAir HFA 108 (90 108 (90 _as_nee 108 (90 Base) Base) ded} Base) MCG/ACT MCG/ACT MCG/ACT Albuterol Albuterol No Albuterol Sulfate HFA Sulfate HFA Sulfate 108 (90 108 (90 HFA 108 Base) Base) (90 Base) MCG/ACT MCG/ACT MCG/ACT Zinc Zinc No Zinc ProAir HFA ProAir HFA No 2{puffs ProAir HFA 108 (90 108 (90 _as_nee 108 (90 Base) Base) ded} Base) MCG/ACT MCG/ACT MCG/ACT Trelegy Trelegy No 1{puff} QD Trelegy Ellipta Ellipta Ellipta 200-62.5-25 200-62.5-25 200-62.5-2 MCG/INH MCG/INH 5 MCG/INH amLODIPine amLODIPine No 1{table QD amLODIPine Besylate 10 Besylate 10 t_in_th Besylate MG MG e_eveni 10 MG ng} Omeprazole Omeprazole No Omeprazole 40 MG 40 MG 40 MG Citalopram Citalopram No 1{table QD Citalopram Hydrobromid Hydrobromid t} Hydrobromi e 10 MG e 10 MG de 10 MG Gabapentin Gabapentin No Gabapentin 300 MG 300 MG 300 MG Furosemide Furosemide No Furosemide amLODIPine amLODIPine No 1{table QD amLODIPine Besylate 10 Besylate 10 t_in_th Besylate MG MG e_eveni 10 MG ng} Aspir-81 81 Aspir-81 81 No 1{table QD Aspir-81 MG MG t} 81 MG Vitamin C Vitamin C No Vitamin C Losartan Losartan No Losartan Potassium Potassium Potassium 100 MG 100 MG 100 MG Lidocaine 5 Lidocaine 5 No 1{appli TID Lidocaine % % cation_ 5 % to_affe cted_ar ea_as_n eeded} amLODIPine amLODIPine No amLODIPine Besylate 10 Besylate 10 Besylate MG MG 10 MG Aspir-81 81 Aspir-81 81 No 1{table QD Aspir-81 MG MG t} 81 MG Citalopram Citalopram No 1{table QD Citalopram Hydrobromid Hydrobromid t} Hydrobromi e 10 MG e 10 MG de 10 MG Citalopram Citalopram No Citalopram Hydrobromid Hydrobromid Hydrobromi e 10 MG e 10 MG de 10 MG Butalbital- Butalbital- No 1{capsu 6xD Butalbital Aspirin-Caf Aspirin-Caf le_as_n -Aspirin-C feine feine eeded} affeine 50-325-40 50-325-40 50-325-40 MG MG MG Citalopram Citalopram No Citalopram Hydrobromid Hydrobromid Hydrobromi e 10 MG e 10 MG de 10 MG valACYclovi valACYclovi No valACYclov r HCl 1 GM r HCl 1 GM ir HCl 1 GM Albuterol Albuterol No Albuterol Sulfate HFA Sulfate HFA Sulfate 108 (90 108 (90 HFA 108 Base) Base) (90 Base) MCG/ACT MCG/ACT MCG/ACT Gabapentin Gabapentin No QD Gabapentin 300 MG 300 MG 300 MG Zinc Zinc No Zinc ProAir HFA ProAir HFA No 2{puffs ProAir HFA 108 (90 108 (90 _as_nee 108 (90 Base) Base) ded} Base) MCG/ACT MCG/ACT MCG/ACT Trelegy Trelegy No 1{puff} QD Trelegy Ellipta Ellipta Ellipta 200-62.5-25 200-62.5-25 200-62.5-2 MCG/INH MCG/INH 5 MCG/INH amLODIPine amLODIPine No 1{table QD amLODIPine Besylate 10 Besylate 10 t_in_th Besylate MG MG e_eveni 10 MG ng} Omeprazole Omeprazole No Omeprazole 40 MG 40 MG 40 MG Citalopram Citalopram No 1{table QD Citalopram Hydrobromid Hydrobromid t} Hydrobromi e 10 MG e 10 MG de 10 MG Gabapentin Gabapentin No Gabapentin 300 MG 300 MG 300 MG Furosemide Furosemide No Furosemide Aspir-81 81 Aspir-81 81 No 1{table QD Aspir-81 MG MG t} 81 MG Gabapentin Gabapentin No 1{capsu BID Gabapentin 300 MG 300 MG le} 300 MG Vitamin C Vitamin C No Vitamin C Losartan Losartan No Losartan Potassium Potassium Potassium 100 MG 100 MG 100 MG Lidocaine 5 Lidocaine 5 No 1{appli TID Lidocaine % % cation_ 5 % to_affe cted_ar ea_as_n eeded} amLODIPine amLODIPine No amLODIPine Besylate 10 Besylate 10 Besylate MG MG 10 MG Albuterol Albuterol No Albuterol Sulfate HFA Sulfate HFA Sulfate 108 (90 108 (90 HFA 108 Base) Base) (90 Base) MCG/ACT MCG/ACT MCG/ACT Butalbital- Butalbital- No 1{capsu 6xD Butalbital Aspirin-Caf Aspirin-Caf le_as_n -Aspirin-C feine feine eeded} affeine 50-325-40 50-325-40 50-325-40 MG MG MG amLODIPine amLODIPine No amLODIPine Besylate 10 Besylate 10 Besylate MG MG 10 MG Furosemide Furosemide No Furosemide amLODIPine amLODIPine No amLODIPine Besylate 10 Besylate 10 Besylate MG MG 10 MG Vitamin C Vitamin C No Vitamin C Gabapentin Gabapentin No Gabapentin 300 MG 300 MG 300 MG Lidocaine 5 Lidocaine 5 No 1{appli TID Lidocaine % % cation_ 5 % to_affe cted_ar ea_as_n eeded} Vitamin C Vitamin C No Vitamin C Omeprazole Omeprazole No Omeprazole 40 MG 40 MG 40 MG Zinc Zinc No Zinc ProAir HFA ProAir HFA No 2{puffs ProAir HFA 108 (90 108 (90 _as_nee 108 (90 Base) Base) ded} Base) MCG/ACT MCG/ACT MCG/ACT Butalbital- Butalbital- No 1{capsu 6xD Butalbital Aspirin-Caf Aspirin-Caf le_as_n -Aspirin-C feine feine eeded} affeine 50-325-40 50-325-40 50-325-40 MG MG MG Citalopram Citalopram No Citalopram Hydrobromid Hydrobromid Hydrobromi e 10 MG e 10 MG de 10 MG Zinc Zinc No Zinc amLODIPine amLODIPine No 1{table QD amLODIPine Besylate 10 Besylate 10 t_in_ Besylate MG MG e_eveni 10 MG ng} Citalopram Citalopram No 1{table QD Citalopram Hydrobromid Hydrobromid t} Hydrobromi e 10 MG e 10 MG de 10 MG Albuterol Albuterol No Albuterol Sulfate HFA Sulfate HFA Sulfate 108 (90 108 (90 HFA 108 Base) Base) (90 Base) MCG/ACT MCG/ACT MCG/ACT valACYclovi valACYclovi No valACYclov r HCl 1 GM r HCl 1 GM ir HCl 1 GM Aspir-81 81 Aspir-81 81 No 1{table QD Aspir-81 MG MG t} 81 MG Trelegy Trelegy No 1{puff} QD Trelegy Ellipta Ellipta Ellipta 200-62.5-25 200-62.5-25 200-62.5-2 MCG/INH MCG/INH 5 MCG/INH Losartan Losartan No Losartan Potassium Potassium Potassium 100 MG 100 MG 100 MG Furosemide Furosemide No Furosemide Omeprazole Omeprazole No Omeprazole 40 MG 40 MG 40 MG Lidocaine 5 Lidocaine 5 No 1{appli TID Lidocaine % % cation_ 5 % to_affe cted_ar ea_as_n eeded} Furosemide Furosemide No Furosemide amLODIPine amLODIPine No amLODIPine Besylate 10 Besylate 10 Besylate MG MG 10 MG Gabapentin Gabapentin No Gabapentin 300 MG 300 MG 300 MG Lidocaine 5 Lidocaine 5 No 1{appli TID Lidocaine % % cation_ 5 % to_affe cted_ar ea_as_n eeded} Vitamin C Vitamin C No Vitamin C Omeprazole Omeprazole No Omeprazole 40 MG 40 MG 40 MG Zinc Zinc No Zinc ProAir HFA ProAir HFA No 2{puffs ProAir HFA 108 (90 108 (90 _as_nee 108 (90 Base) Base) ded} Base) MCG/ACT MCG/ACT MCG/ACT Butalbital- Butalbital- No 1{capsu 6xD Butalbital Aspirin-Caf Aspirin-Caf le_as_n -Aspirin-C feine feine eeded} affeine 50-325-40 50-325-40 50-325-40 MG MG MG Citalopram Citalopram No Citalopram Hydrobromid Hydrobromid Hydrobromi e 10 MG e 10 MG de 10 MG amLODIPine amLODIPine No 1{table QD amLODIPine Besylate 10 Besylate 10 t_in_th Besylate MG MG e_eveni 10 MG ng} Citalopram Citalopram No 1{table QD Citalopram Hydrobromid Hydrobromid t} Hydrobromi e 10 MG e 10 MG de 10 MG Albuterol Albuterol No Albuterol Sulfate HFA Sulfate HFA Sulfate 108 (90 108 (90 HFA 108 Base) Base) (90 Base) MCG/ACT MCG/ACT MCG/ACT valACYclovi valACYclovi No valACYclov r HCl 1 GM r HCl 1 GM ir HCl 1 GM Aspir-81 81 Aspir-81 81 No 1{table QD Aspir-81 MG MG t} 81 MG Trelegy Trelegy No 1{puff} QD Trelegy Ellipta Ellipta Ellipta 200-62.5-25 200-62.5-25 200-62.5-2 MCG/INH MCG/INH 5 MCG/INH Losartan Losartan No Losartan Potassium Potassium Potassium 100 MG 100 MG 100 MG Furosemide Furosemide No Furosemide amLODIPine amLODIPine No amLODIPine Besylate 10 Besylate 10 Besylate MG MG 10 MG Gabapentin Gabapentin No Gabapentin 300 MG 300 MG 300 MG Lidocaine 5 Lidocaine 5 No 1{appli TID Lidocaine % % cation_ 5 % to_affe cted_ar ea_as_n eeded} Vitamin C Vitamin C No Vitamin C Omeprazole Omeprazole No Omeprazole 40 MG 40 MG 40 MG Zinc Zinc No Zinc ProAir HFA ProAir HFA No 2{puffs ProAir HFA 108 (90 108 (90 _as_nee 108 (90 Base) Base) ded} Base) MCG/ACT MCG/ACT MCG/ACT Butalbital- Butalbital- No 1{capsu 6xD Butalbital Aspirin-Caf Aspirin-Caf le_as_n -Aspirin-C feine feine eeded} affeine 50-325-40 50-325-40 50-325-40 MG MG MG Citalopram Citalopram No Citalopram Hydrobromid Hydrobromid Hydrobromi e 10 MG e 10 MG de 10 MG amLODIPine amLODIPine No 1{table QD amLODIPine Besylate 10 Besylate 10 t_in_th Besylate MG MG e_eveni 10 MG ng} Citalopram Citalopram No 1{table QD Citalopram Hydrobromid Hydrobromid t} Hydrobromi e 10 MG e 10 MG de 10 MG Albuterol Albuterol No Albuterol Sulfate HFA Sulfate HFA Sulfate 108 (90 108 (90 HFA 108 Base) Base) (90 Base) MCG/ACT MCG/ACT MCG/ACT valACYclovi valACYclovi No valACYclov r HCl 1 GM r HCl 1 GM ir HCl 1 GM Aspir-81 81 Aspir-81 81 No 1{table QD Aspir-81 MG MG t} 81 MG Trelegy Trelegy No 1{puff} QD Trelegy Ellipta Ellipta Ellipta 200-62.5-25 200-62.5-25 200-62.5-2 MCG/INH MCG/INH 5 MCG/INH Losartan Losartan No Losartan Potassium Potassium Potassium 100 MG 100 MG 100 MG ProAir HFA ProAir HFA No 2{puffs ProAir HFA 108 (90 108 (90 _as_nee 108 (90 Base) Base) ded} Base) MCG/ACT MCG/ACT MCG/ACT Losartan Losartan No Losartan Potassium Potassium Potassium 100 MG 100 MG 100 MG Gabapentin Gabapentin No Gabapentin 300 MG 300 MG 300 MG amLODIPine amLODIPine No amLODIPine Besylate 10 Besylate 10 Besylate MG MG 10 MG Albuterol Albuterol No Albuterol Sulfate HFA Sulfate HFA Sulfate 108 (90 108 (90 HFA 108 Base) Base) (90 Base) MCG/ACT MCG/ACT MCG/ACT Vitamin C Vitamin C No Vitamin C Omeprazole Omeprazole No Omeprazole 40 MG 40 MG 40 MG Butalbital- Butalbital- No 1{capsu 6xD Butalbital Aspirin-Caf Aspirin-Caf le_as_n -Aspirin-C feine feine eeded} affeine 50-325-40 50-325-40 50-325-40 MG MG MG Zinc Zinc No Zinc Aspir-81 81 Aspir-81 81 No 1{table QD Aspir-81 MG MG t} 81 MG Trelegy Trelegy No 1{puff} QD Trelegy Ellipta Ellipta Ellipta 200-62.5-25 200-62.5-25 200-62.5-2 MCG/INH MCG/INH 5 MCG/INH valACYclovi valACYclovi No valACYclov r HCl 1 GM r HCl 1 GM ir HCl 1 GM Lidocaine 5 Lidocaine 5 No 1{appli TID Lidocaine % % cation_ 5 % to_affe cted_ar ea_as_n eeded} Furosemide Furosemide No Furosemide Citalopram Citalopram No Citalopram Hydrobromid Hydrobromid Hydrobromi e 10 MG e 10 MG de 10 MG ProAir HFA ProAir HFA No 2{puffs ProAir HFA 108 (90 108 (90 _as_nee 108 (90 Base) Base) ded} Base) MCG/ACT MCG/ACT MCG/ACT Losartan Losartan No Losartan Potassium Potassium Potassium 100 MG 100 MG 100 MG Gabapentin Gabapentin No Gabapentin 300 MG 300 MG 300 MG amLODIPine amLODIPine No amLODIPine Besylate 10 Besylate 10 Besylate MG MG 10 MG Albuterol Albuterol No Albuterol Sulfate HFA Sulfate HFA Sulfate 108 (90 108 (90 HFA 108 Base) Base) (90 Base) MCG/ACT MCG/ACT MCG/ACT Vitamin C Vitamin C No Vitamin C Omeprazole Omeprazole No Omeprazole 40 MG 40 MG 40 MG Butalbital- Butalbital- No 1{capsu 6xD Butalbital Aspirin-Caf Aspirin-Caf le_as_n -Aspirin-C feine feine eeded} affeine 50-325-40 50-325-40 50-325-40 MG MG MG Zinc Zinc No Zinc Aspir-81 81 Aspir-81 81 No 1{table QD Aspir-81 MG MG t} 81 MG Trelegy Trelegy No 1{puff} QD Trelegy Ellipta Ellipta Ellipta 200-62.5-25 200-62.5-25 200-62.5-2 MCG/INH MCG/INH 5 MCG/INH valACYclovi valACYclovi No valACYclov r HCl 1 GM r HCl 1 GM ir HCl 1 GM Lidocaine 5 Lidocaine 5 No 1{appli TID Lidocaine % % cation_ 5 % to_affe cted_ar ea_as_n eeded} Furosemide Furosemide No Furosemide Citalopram Citalopram No Citalopram Hydrobromid Hydrobromid Hydrobromi e 10 MG e 10 MG de 10 MG Lidocaine 5 Lidocaine 5 No 1{appli TID Lidocaine % % cation_ 5 % to_affe cted_ar ea_as_n eeded} Gabapentin Gabapentin No Gabapentin 300 MG 300 MG 300 MG amLODIPine amLODIPine No 1{table QD amLODIPine Besylate 10 Besylate 10 t_in_th Besylate MG MG e_eveni 10 MG ng} Losartan Losartan No Losartan Potassium Potassium Potassium 100 MG 100 MG 100 MG Omeprazole Omeprazole No Omeprazole 40 MG 40 MG 40 MG Zinc Zinc No Zinc amLODIPine amLODIPine No amLODIPine Besylate 10 Besylate 10 Besylate MG MG 10 MG Furosemide Furosemide No Furosemide ProAir HFA ProAir HFA No 2{puffs ProAir HFA 108 (90 108 (90 _as_nee 108 (90 Base) Base) ded} Base) MCG/ACT MCG/ACT MCG/ACT Citalopram Citalopram No 1{table QD Citalopram Hydrobromid Hydrobromid t} Hydrobromi e 10 MG e 10 MG de 10 MG Albuterol Albuterol No Albuterol Sulfate HFA Sulfate HFA Sulfate 108 (90 108 (90 HFA 108 Base) Base) (90 Base) MCG/ACT MCG/ACT MCG/ACT Butalbital- Butalbital- No 1{capsu 6xD Butalbital Aspirin-Caf Aspirin-Caf le_as_n -Aspirin-C feine feine eeded} affeine 50-325-40 50-325-40 50-325-40 MG MG MG Trelegy Trelegy No 1{puff} QD Trelegy Ellipta Ellipta Ellipta 200-62.5-25 200-62.5-25 200-62.5-2 MCG/INH MCG/INH 5 MCG/INH Losartan Losartan No 1{table QD Losartan Potassium Potassium t} Potassium 100 MG 100 MG 100 MG valACYclovi valACYclovi No valACYclov r HCl 1 GM r HCl 1 GM ir HCl 1 GM Citalopram Citalopram No Citalopram Hydrobromid Hydrobromid Hydrobromi e 10 MG e 10 MG de 10 MG Aspir-81 81 Aspir-81 81 No 1{table QD Aspir-81 MG MG t} 81 MG Vitamin C Vitamin C No Vitamin C valACYclovi valACYclovi No 1{table BID valACYclov r HCl 1 GM r HCl 1 GM t} ir HCl 1 GM Losartan Losartan No 1{table QD Losartan Potassium Potassium t} Potassium 100 MG 100 MG 100 MG ProAir HFA ProAir HFA No 2{puffs ProAir HFA 108 (90 108 (90 _as_nee 108 (90 Base) Base) ded} Base) MCG/ACT MCG/ACT MCG/ACT amLODIPine amLODIPine No 1{table QD amLODIPine Besylate 10 Besylate 10 t_in_th Besylate MG MG e_eveni 10 MG ng} -81 81 Aspir- 81 No 1{table QD Aspir-81 MG MG t} 81 MG Citalopram Citalopram No 1{table QD Citalopram Hydrobromid Hydrobromid t} Hydrobromi e 10 MG e 10 MG de 10 MG Citalopram Citalopram No Citalopram Hydrobromid Hydrobromid Hydrobromi e 10 MG e 10 MG de 10 MG Gabapentin Gabapentin No QD Gabapentin 300 MG 300 MG 300 MG Gabapentin Gabapentin No 1{capsu BID Gabapentin 300 MG 300 MG le} 300 MG Albuterol Albuterol No Albuterol Sulfate HFA Sulfate HFA Sulfate 108 (90 108 (90 HFA 108 Base) Base) (90 Base) MCG/ACT MCG/ACT MCG/ACT Butalbital- Butalbital- No 1{capsu 6xD Butalbital Aspirin-Caf Aspirin-Caf le_as_n -Aspirin-C feine feine eeded} affeine 50-325-40 50-325-40 50-325-40 MG MG MG amLODIPine amLODIPine No amLODIPine Besylate 10 Besylate 10 Besylate MG MG 10 MG Vitamin C Vitamin C No Vitamin C Zinc Zinc No Zinc Furosemide Furosemide No Furosemide Omeprazole Omeprazole No Omeprazole 40 MG 40 MG 40 MG Lidocaine 5 Lidocaine 5 No 1{appli TID Lidocaine % % cation_ 5 % to_affe cted_ar ea_as_n eeded} valACYclovi valACYclovi No 1{table BID valACYclov r HCl 1 GM r HCl 1 GM t} ir HCl 1 GM Losartan Losartan No 1{table QD Losartan Potassium Potassium t} Potassium 100 MG 100 MG 100 MG Gabapentin Gabapentin No 1{capsu BID Gabapentin 300 MG 300 MG le} 300 MG amLODIPine amLODIPine No 1{table QD amLODIPine Besylate 10 Besylate 10 t_in_th Besylate MG MG e_eveni 10 MG ng} amLODIPine amLODIPine No amLODIPine Besylate 10 Besylate 10 Besylate MG MG 10 MG Citalopram Citalopram No 1{table QD Citalopram Hydrobromid Hydrobromid t} Hydrobromi e 10 MG e 10 MG de 10 MG Citalopram Citalopram No Citalopram Hydrobromid Hydrobromid Hydrobromi e 10 MG e 10 MG de 10 MG Aspir-81 81 Aspir-81 81 No 1{table QD Aspir-81 MG MG t} 81 MG Gabapentin Gabapentin No 1{capsu BID Gabapentin 300 MG 300 MG le} 300 MG Albuterol Albuterol No Albuterol Sulfate HFA Sulfate HFA Sulfate 108 (90 108 (90 HFA 108 Base) Base) (90 Base) MCG/ACT MCG/ACT MCG/ACT Butalbital- Butalbital- No 1{capsu 6xD Butalbital Aspirin-Caf Aspirin-Caf le_as_n -Aspirin-C feine feine eeded} affeine 50-325-40 50-325-40 50-325-40 MG MG MG Lidocaine 5 Lidocaine 5 No 1{appli TID Lidocaine % % cation_ 5 % to_affe cted_ar ea_as_n eeded} Vitamin C Vitamin C No Vitamin C ProAir HFA ProAir HFA No 2{puffs ProAir HFA 108 (90 108 (90 _as_nee 108 (90 Base) Base) ded} Base) MCG/ACT MCG/ACT MCG/ACT Furosemide Furosemide No Furosemide Omeprazole Omeprazole No Omeprazole 40 MG 40 MG 40 MG Zinc Zinc No Zinc Citalopram Citalopram No Citalopram Hydrobromid Hydrobromid Hydrobromi e 10 MG e 10 MG de 10 MG Omeprazole Omeprazole No QD Omeprazole 40 MG 40 MG 40 MG Osteo Osteo No Osteo Bi-Flex Bi-Flex Bi-Flex Triple Triple Triple Strength Strength Strength Xifaxan 550 Xifaxan 550 No 1{table TID Xifaxan MG MG t} 550 MG Vitamin C Vitamin C No Vitamin C Temazepam Temazepam No Temazepam Furosemide Furosemide No Furosemide Clindamycin Clindamycin No Clindamyci HCl HCl n HCl predniSONE predniSONE No predniSONE Sucralfate Sucralfate No Sucralfate Symbicort Symbicort No 2{puffs BID Symbicort 160-4.5 160-4.5 } 160-4.5 MCG/ACT MCG/ACT MCG/ACT Promethazin Promethazin No 10{ml_a QID Promethazi e HCl 6.25 e HCl 6.25 s_neede ne HCl MG/5ML MG/5ML d} 6.25 MG/5ML Simvastatin Simvastatin No Simvastati n Ivermectin Ivermectin No Ivermectin Restoril 15 Restoril 15 No 1{capsu QD Restoril MG MG le_at_b 15 MG edtime_ as_need ed} Trelegy Trelegy No Trelegy Ellipta Ellipta Ellipta Dexamethaso Dexamethaso No Dexamethas ne ne one amLODIPine amLODIPine No 1{table QD amLODIPine Besylate 10 Besylate 10 t_in_th Besylate MG MG e_eveni 10 MG ng} Losartan Losartan No 1{table QD Losartan Potassium Potassium t} Potassium 100 MG 100 MG 100 MG Azithromyci Azithromyci No Azithromyc n n in Omeprazole Omeprazole No Omeprazole Albuterol Albuterol No Albuterol Sulfate HFA Sulfate HFA Sulfate 108 (90 108 (90 HFA 108 Base) Base) (90 Base) MCG/ACT MCG/ACT MCG/ACT Citalopram Citalopram No Citalopram Hydrobromid Hydrobromid Hydrobromi e 10 MG e 10 MG de 10 MG amLODIPine amLODIPine No 1{table QD amLODIPine Besylate 10 Besylate 10 t_in_th Besylate MG MG e_eveni 10 MG ng} Omeprazole Omeprazole No Omeprazole 40 MG 40 MG 40 MG Citalopram Citalopram No 1{table QD Citalopram Hydrobromid Hydrobromid t} Hydrobromi e 10 MG e 10 MG de 10 MG Trelegy Trelegy No Trelegy Ellipta Ellipta Ellipta Omeprazole Omeprazole No Omeprazole Restoril 15 Restoril 15 No 1{capsu QD Restoril MG MG le_at_b 15 MG edtime_ as_need ed} Xifaxan 550 Xifaxan 550 No 1{table TID Xifaxan MG MG t} 550 MG Ivermectin Ivermectin No Ivermectin Simvastatin Simvastatin No Simvastati n Osteo Osteo No Osteo Bi-Flex Bi-Flex Bi-Flex Triple Triple Triple Strength Strength Strength ProAir HFA ProAir HFA No 2{puffs ProAir HFA 108 (90 108 (90 _as_nee 108 (90 Base) Base) ded} Base) MCG/ACT MCG/ACT MCG/ACT Symbicort Symbicort No 2{puffs BID Symbicort 160-4.5 160-4.5 } 160-4.5 MCG/ACT MCG/ACT MCG/ACT Vitamin C Vitamin C No Vitamin C Albuterol Albuterol No Albuterol Sulfate HFA Sulfate HFA Sulfate 108 (90 108 (90 HFA 108 Base) Base) (90 Base) MCG/ACT MCG/ACT MCG/ACT Losartan Losartan No 1{table QD Losartan Potassium Potassium t} Potassium 100 MG 100 MG 100 MG Promethazin Promethazin No 10{ml_a QID Promethazi e HCl 6.25 e HCl 6.25 s_neede ne HCl MG/5ML MG/5ML d} 6.25 MG/5ML Furosemide Furosemide No Furosemide Dexamethaso Dexamethaso No Dexamethas ne ne one Temazepam Temazepam No Temazepam Clindamycin Clindamycin No Clindamyci HCl HCl n HCl predniSONE predniSONE No predniSONE Sucralfate Sucralfate No Sucralfate Azithromyci Azithromyci No Azithromyc n n in Ivermectin Ivermectin No Ivermectin Sucralfate Sucralfate No Sucralfate ProAir HFA ProAir HFA No 2{puffs ProAir HFA 108 (90 108 (90 _as_nee 108 (90 Base) Base) ded} Base) MCG/ACT MCG/ACT MCG/ACT predniSONE predniSONE No predniSONE Symbicort Symbicort No 2{puffs BID Symbicort 160-4.5 160-4.5 } 160-4.5 MCG/ACT MCG/ACT MCG/ACT Azithromyci Azithromyci No Azithromyc n n in Clindamycin Clindamycin No Clindamyci HCl HCl n HCl Dexamethaso Dexamethaso No Dexamethas ne ne one Omeprazole Omeprazole No Omeprazole Furosemide Furosemide No Furosemide Albuterol Albuterol No Albuterol Sulfate HFA Sulfate HFA Sulfate 108 (90 108 (90 HFA 108 Base) Base) (90 Base) MCG/ACT MCG/ACT MCG/ACT Restoril 15 Restoril 15 No 1{capsu QD Restoril MG MG le_at_b 15 MG edtime_ as_need ed} Promethazin Promethazin No 10{ml_a QID Promethazi e HCl 6.25 e HCl 6.25 s_neede ne HCl MG/5ML MG/5ML d} 6.25 MG/5ML Temazepam Temazepam No Temazepam Vitamin C Vitamin C No Vitamin C Xifaxan 550 Xifaxan 550 No 1{table TID Xifaxan MG MG t} 550 MG Trelegy Trelegy No Trelegy Ellipta Ellipta Ellipta Omeprazole Omeprazole No Omeprazole 40 MG 40 MG 40 MG Osteo Osteo No Osteo Bi-Flex Bi-Flex Bi-Flex Triple Triple Triple Strength Strength Strength Simvastatin Simvastatin No Simvastati n Losartan Losartan No 1{table QD Losartan Potassium Potassium t} Potassium 100 MG 100 MG 100 MG amLODIPine amLODIPine No 1{table QD amLODIPine Besylate 10 Besylate 10 t_in_th Besylate MG MG e_eveni 10 MG ng} Citalopram Citalopram No Citalopram Hydrobromid Hydrobromid Hydrobromi e 10 MG e 10 MG de 10 MG Citalopram Citalopram No 1{table QD Citalopram Hydrobromid Hydrobromid t} Hydrobromi e 10 MG e 10 MG de 10 MG Ivermectin Ivermectin No Ivermectin Sucralfate Sucralfate No Sucralfate ProAir HFA ProAir HFA No 2{puffs ProAir HFA 108 (90 108 (90 _as_nee 108 (90 Base) Base) ded} Base) MCG/ACT MCG/ACT MCG/ACT predniSONE predniSONE No predniSONE Symbicort Symbicort No 2{puffs BID Symbicort 160-4.5 160-4.5 } 160-4.5 MCG/ACT MCG/ACT MCG/ACT Azithromyci Azithromyci No Azithromyc n n in Clindamycin Clindamycin No Clindamyci HCl HCl n HCl Dexamethaso Dexamethaso No Dexamethas ne ne one Omeprazole Omeprazole No Omeprazole Furosemide Furosemide No Furosemide Albuterol Albuterol No Albuterol Sulfate HFA Sulfate HFA Sulfate 108 (90 108 (90 HFA 108 Base) Base) (90 Base) MCG/ACT MCG/ACT MCG/ACT Restoril 15 Restoril 15 No 1{capsu QD Restoril MG MG le_at_b 15 MG edtime_ as_need ed} Promethazin Promethazin No 10{ml_a QID Promethazi e HCl 6.25 e HCl 6.25 s_neede ne HCl MG/5ML MG/5ML d} 6.25 MG/5ML Temazepam Temazepam No Temazepam Vitamin C Vitamin C No Vitamin C Xifaxan 550 Xifaxan 550 No 1{table TID Xifaxan MG MG t} 550 MG Trelegy Trelegy No Trelegy Ellipta Ellipta Ellipta Omeprazole Omeprazole No Omeprazole 40 MG 40 MG 40 MG Osteo Osteo No Osteo Bi-Flex Bi-Flex Bi-Flex Triple Triple Triple Strength Strength Strength Simvastatin Simvastatin No Simvastati n Losartan Losartan No 1{table QD Losartan Potassium Potassium t} Potassium 100 MG 100 MG 100 MG amLODIPine amLODIPine No 1{table QD amLODIPine Besylate 10 Besylate 10 t_in_th Besylate MG MG e_eveni 10 MG ng} Citalopram Citalopram No Citalopram Hydrobromid Hydrobromid Hydrobromi e 10 MG e 10 MG de 10 MG Citalopram Citalopram No 1{table QD Citalopram Hydrobromid Hydrobromid t} Hydrobromi e 10 MG e 10 MG de 10 MG Ivermectin Ivermectin No Ivermectin Sucralfate Sucralfate No Sucralfate ProAir HFA ProAir HFA No 2{puffs ProAir HFA 108 (90 108 (90 _as_nee 108 (90 Base) Base) ded} Base) MCG/ACT MCG/ACT MCG/ACT predniSONE predniSONE No predniSONE Symbicort Symbicort No 2{puffs BID Symbicort 160-4.5 160-4.5 } 160-4.5 MCG/ACT MCG/ACT MCG/ACT Azithromyci Azithromyci No Azithromyc n n in Clindamycin Clindamycin No Clindamyci HCl HCl n HCl Dexamethaso Dexamethaso No Dexamethas ne ne one Omeprazole Omeprazole No Omeprazole Furosemide Furosemide No Furosemide Albuterol Albuterol No Albuterol Sulfate HFA Sulfate HFA Sulfate 108 (90 108 (90 HFA 108 Base) Base) (90 Base) MCG/ACT MCG/ACT MCG/ACT Restoril 15 Restoril 15 No 1{capsu QD Restoril MG MG le_at_b 15 MG edtime_ as_need ed} Promethazin Promethazin No 10{ml_a QID Promethazi e HCl 6.25 e HCl 6.25 s_neede ne HCl MG/5ML MG/5ML d} 6.25 MG/5ML Temazepam Temazepam No Temazepam Vitamin C Vitamin C No Vitamin C Xifaxan 550 Xifaxan 550 No 1{table TID Xifaxan MG MG t} 550 MG Trelegy Trelegy No Trelegy Ellipta Ellipta Ellipta Omeprazole Omeprazole No Omeprazole 40 MG 40 MG 40 MG Osteo Osteo No Osteo Bi-Flex Bi-Flex Bi-Flex Triple Triple Triple Strength Strength Strength Simvastatin Simvastatin No Simvastati n Losartan Losartan No 1{table QD Losartan Potassium Potassium t} Potassium 100 MG 100 MG 100 MG amLODIPine amLODIPine No 1{table QD amLODIPine Besylate 10 Besylate 10 t_in_th Besylate MG MG e_eveni 10 MG ng} Citalopram Citalopram No Citalopram Hydrobromid Hydrobromid Hydrobromi e 10 MG e 10 MG de 10 MG Citalopram Citalopram No 1{table QD Citalopram Hydrobromid Hydrobromid t} Hydrobromi e 10 MG e 10 MG de 10 MG Ivermectin Ivermectin No Ivermectin Sucralfate Sucralfate No Sucralfate ProAir HFA ProAir HFA No 2{puffs ProAir HFA 108 (90 108 (90 _as_nee 108 (90 Base) Base) ded} Base) MCG/ACT MCG/ACT MCG/ACT predniSONE predniSONE No predniSONE Symbicort Symbicort No 2{puffs BID Symbicort 160-4.5 160-4.5 } 160-4.5 MCG/ACT MCG/ACT MCG/ACT Azithromyci Azithromyci No Azithromyc n n in Clindamycin Clindamycin No Clindamyci HCl HCl n HCl Dexamethaso Dexamethaso No Dexamethas ne ne one Omeprazole Omeprazole No Omeprazole Furosemide Furosemide No Furosemide Albuterol Albuterol No Albuterol Sulfate HFA Sulfate HFA Sulfate 108 (90 108 (90 HFA 108 Base) Base) (90 Base) MCG/ACT MCG/ACT MCG/ACT Restoril 15 Restoril 15 No 1{capsu QD Restoril MG MG le_at_b 15 MG edtime_ as_need ed} Promethazin Promethazin No 10{ml_a QID Promethazi e HCl 6.25 e HCl 6.25 s_neede ne HCl MG/5ML MG/5ML d} 6.25 MG/5ML Temazepam Temazepam No Temazepam Vitamin C Vitamin C No Vitamin C Xifaxan 550 Xifaxan 550 No 1{table TID Xifaxan MG MG t} 550 MG Trelegy Trelegy No Trelegy Ellipta Ellipta Ellipta Omeprazole Omeprazole No Omeprazole 40 MG 40 MG 40 MG Osteo Osteo No Osteo Bi-Flex Bi-Flex Bi-Flex Triple Triple Triple Strength Strength Strength Simvastatin Simvastatin No Simvastati n Losartan Losartan No 1{table QD Losartan Potassium Potassium t} Potassium 100 MG 100 MG 100 MG amLODIPine amLODIPine No 1{table QD amLODIPine Besylate 10 Besylate 10 t_in_th Besylate MG MG e_eveni 10 MG ng} Citalopram Citalopram No Citalopram Hydrobromid Hydrobromid Hydrobromi e 10 MG e 10 MG de 10 MG Citalopram Citalopram No 1{table QD Citalopram Hydrobromid Hydrobromid t} Hydrobromi e 10 MG e 10 MG de 10 MG amLODIPine amLODIPine No 1{table QD amLODIPine Besylate 10 Besylate 10 t_in_th Besylate MG MG e_eveni 10 MG ng} Sucralfate Sucralfate No Sucralfate Ivermectin Ivermectin No Ivermectin predniSONE predniSONE No predniSONE Symbicort Symbicort No 2{puffs BID Symbicort 160-4.5 160-4.5 } 160-4.5 MCG/ACT MCG/ACT MCG/ACT Azithromyci Azithromyci No Azithromyc n n in Clindamycin Clindamycin No Clindamyci HCl HCl n HCl Dexamethaso Dexamethaso No Dexamethas ne ne one Vitamin C Vitamin C No Vitamin C Omeprazole Omeprazole No Omeprazole Omeprazole Omeprazole No Omeprazole 40 MG 40 MG 40 MG Osteo Osteo No Osteo Bi-Flex Bi-Flex Bi-Flex Triple Triple Triple Strength Strength Strength Promethazin Promethazin No 10{ml_a QID Promethazi e HCl 6.25 e HCl 6.25 s_neede ne HCl MG/5ML MG/5ML d} 6.25 MG/5ML Simvastatin Simvastatin No Simvastati n Restoril 15 Restoril 15 No 1{capsu QD Restoril MG MG le_at_b 15 MG edtime_ as_need ed} Xifaxan 550 Xifaxan 550 No 1{table TID Xifaxan MG MG t} 550 MG Trelegy Trelegy No Trelegy Ellipta Ellipta Ellipta Temazepam Temazepam No Temazepam ProAir HFA ProAir HFA No 2{puffs ProAir HFA 108 (90 108 (90 _as_nee 108 (90 Base) Base) ded} Base) MCG/ACT MCG/ACT MCG/ACT Furosemide Furosemide No Furosemide Albuterol Albuterol No Albuterol Sulfate HFA Sulfate HFA Sulfate 108 (90 108 (90 HFA 108 Base) Base) (90 Base) MCG/ACT MCG/ACT MCG/ACT Citalopram Citalopram No Citalopram Hydrobromid Hydrobromid Hydrobromi e 10 MG e 10 MG de 10 MG Losartan Losartan No 1{table QD Losartan Potassium Potassium t} Potassium 100 MG 100 MG 100 MG Citalopram Citalopram No 1{table QD Citalopram Hydrobromid Hydrobromid t} Hydrobromi e 10 MG e 10 MG de 10 MG Ivermectin Ivermectin No Ivermectin Sucralfate Sucralfate No Sucralfate amLODIPine amLODIPine No amLODIPine Besylate 10 Besylate 10 Besylate MG MG 10 MG predniSONE predniSONE No predniSONE Symbicort Symbicort No 2{puffs BID Symbicort 160-4.5 160-4.5 } 160-4.5 MCG/ACT MCG/ACT MCG/ACT Azithromyci Azithromyci No Azithromyc n n in Clindamycin Clindamycin No Clindamyci HCl HCl n HCl Dexamethaso Dexamethaso No Dexamethas ne ne one Vitamin C Vitamin C No Vitamin C Omeprazole Omeprazole No Omeprazole Omeprazole Omeprazole No Omeprazole 40 MG 40 MG 40 MG Osteo Osteo No Osteo Bi-Flex Bi-Flex Bi-Flex Triple Triple Triple Strength Strength Strength Promethazin Promethazin No 10{ml_a QID Promethazi e HCl 6.25 e HCl 6.25 s_neede ne HCl MG/5ML MG/5ML d} 6.25 MG/5ML Simvastatin Simvastatin No Simvastati n Restoril 15 Restoril 15 No 1{capsu QD Restoril MG MG le_at_b 15 MG edtime_ as_need ed} Xifaxan 550 Xifaxan 550 No 1{table TID Xifaxan MG MG t} 550 MG Trelegy Trelegy No Trelegy Ellipta Ellipta Ellipta Temazepam Temazepam No Temazepam ProAir HFA ProAir HFA No 2{puffs ProAir HFA 108 (90 108 (90 _as_nee 108 (90 Base) Base) ded} Base) MCG/ACT MCG/ACT MCG/ACT Furosemide Furosemide No Furosemide Albuterol Albuterol No Albuterol Sulfate HFA Sulfate HFA Sulfate 108 (90 108 (90 HFA 108 Base) Base) (90 Base) MCG/ACT MCG/ACT MCG/ACT Citalopram Citalopram No Citalopram Hydrobromid Hydrobromid Hydrobromi e 10 MG e 10 MG de 10 MG Losartan Losartan No 1{table QD Losartan Potassium Potassium t} Potassium 100 MG 100 MG 100 MG Citalopram Citalopram No 1{table QD Citalopram Hydrobromid Hydrobromid t} Hydrobromi e 10 MG e 10 MG de 10 MG amLODIPine amLODIPine No amLODIPine Besylate 10 Besylate 10 Besylate MG MG 10 MG Azithromyci Azithromyci No Azithromyc n n in Losartan Losartan No 1{table QD Losartan Potassium Potassium t} Potassium 100 MG 100 MG 100 MG Symbicort Symbicort No 2{puffs BID Symbicort 160-4.5 160-4.5 } 160-4.5 MCG/ACT MCG/ACT MCG/ACT Dexamethaso Dexamethaso No Dexamethas ne ne one Omeprazole Omeprazole No Omeprazole Sucralfate Sucralfate No Sucralfate Xifaxan 550 Xifaxan 550 No 1{table TID Xifaxan MG MG t} 550 MG Ivermectin Ivermectin No Ivermectin Clindamycin Clindamycin No Clindamyci HCl HCl n HCl Gabapentin Gabapentin No 1{capsu BID Gabapentin 300 MG 300 MG le} 300 MG Vitamin C Vitamin C No Vitamin C predniSONE predniSONE No predniSONE Osteo Osteo No Osteo Bi-Flex Bi-Flex Bi-Flex Triple Triple Triple Strength Strength Strength Furosemide Furosemide No Furosemide Promethazin Promethazin No 10{ml_a QID Promethazi e HCl 6.25 e HCl 6.25 s_neede ne HCl MG/5ML MG/5ML d} 6.25 MG/5ML Citalopram Citalopram No Citalopram Hydrobromid Hydrobromid Hydrobromi e 10 MG e 10 MG de 10 MG Temazepam Temazepam No Temazepam Citalopram Citalopram No 1{table QD Citalopram Hydrobromid Hydrobromid t} Hydrobromi e 10 MG e 10 MG de 10 MG Simvastatin Simvastatin No Simvastati n Albuterol Albuterol No Albuterol Sulfate HFA Sulfate HFA Sulfate 108 (90 108 (90 HFA 108 Base) Base) (90 Base) MCG/ACT MCG/ACT MCG/ACT Trelegy Trelegy No Trelegy Ellipta Ellipta Ellipta amLODIPine amLODIPine No 1{table QD amLODIPine Besylate 10 Besylate 10 t_in_th Besylate MG MG e_eveni 10 MG ng} ProAir HFA ProAir HFA No 2{puffs ProAir HFA 108 (90 108 (90 _as_nee 108 (90 Base) Base) ded} Base) MCG/ACT MCG/ACT MCG/ACT Omeprazole Omeprazole No Omeprazole 40 MG 40 MG 40 MG amLODIPine amLODIPine No amLODIPine Besylate 10 Besylate 10 Besylate MG MG 10 MG Azithromyci Azithromyci No Azithromyc n n in Losartan Losartan No 1{table QD Losartan Potassium Potassium t} Potassium 100 MG 100 MG 100 MG Symbicort Symbicort No 2{puffs BID Symbicort 160-4.5 160-4.5 } 160-4.5 MCG/ACT MCG/ACT MCG/ACT Dexamethaso Dexamethaso No Dexamethas ne ne one Omeprazole Omeprazole No Omeprazole Sucralfate Sucralfate No Sucralfate Xifaxan 550 Xifaxan 550 No 1{table TID Xifaxan MG MG t} 550 MG Ivermectin Ivermectin No Ivermectin Clindamycin Clindamycin No Clindamyci HCl HCl n HCl Gabapentin Gabapentin No 1{capsu BID Gabapentin 300 MG 300 MG le} 300 MG Vitamin C Vitamin C No Vitamin C predniSONE predniSONE No predniSONE Osteo Osteo No Osteo Bi-Flex Bi-Flex Bi-Flex Triple Triple Triple Strength Strength Strength Furosemide Furosemide No Furosemide Promethazin Promethazin No 10{ml_a QID Promethazi e HCl 6.25 e HCl 6.25 s_neede ne HCl MG/5ML MG/5ML d} 6.25 MG/5ML Citalopram Citalopram No Citalopram Hydrobromid Hydrobromid Hydrobromi e 10 MG e 10 MG de 10 MG Temazepam Temazepam No Temazepam Citalopram Citalopram No 1{table QD Citalopram Hydrobromid Hydrobromid t} Hydrobromi e 10 MG e 10 MG de 10 MG Simvastatin Simvastatin No Simvastati n Albuterol Albuterol No Albuterol Sulfate HFA Sulfate HFA Sulfate 108 (90 108 (90 HFA 108 Base) Base) (90 Base) MCG/ACT MCG/ACT MCG/ACT Trelegy Trelegy No Trelegy Ellipta Ellipta Ellipta amLODIPine amLODIPine No 1{table QD amLODIPine Besylate 10 Besylate 10 t_in_th Besylate MG MG e_eveni 10 MG ng} ProAir HFA ProAir HFA No 2{puffs ProAir HFA 108 (90 108 (90 _as_nee 108 (90 Base) Base) ded} Base) MCG/ACT MCG/ACT MCG/ACT Omeprazole Omeprazole No Omeprazole 40 MG 40 MG 40 MG amLODIPine amLODIPine No amLODIPine Besylate 10 Besylate 10 Besylate MG MG 10 MG Losartan Losartan No 1{table QD Losartan Potassium Potassium t} Potassium 100 MG 100 MG 100 MG Citalopram Citalopram No Citalopram Hydrobromid Hydrobromid Hydrobromi e 10 MG e 10 MG de 10 MG Sucralfate Sucralfate No Sucralfate Omeprazole Omeprazole No Omeprazole Azithromyci Azithromyci No Azithromyc n n in Ivermectin Ivermectin No Ivermectin Symbicort Symbicort No 2{puffs BID Symbicort 160-4.5 160-4.5 } 160-4.5 MCG/ACT MCG/ACT MCG/ACT Dexamethaso Dexamethaso No Dexamethas ne ne one Clindamycin Clindamycin No Clindamyci HCl HCl n HCl Gabapentin Gabapentin No 1{capsu BID Gabapentin 300 MG 300 MG le} 300 MG Vitamin C Vitamin C No Vitamin C predniSONE predniSONE No predniSONE Promethazin Promethazin No 10{ml_a QID Promethazi e HCl 6.25 e HCl 6.25 s_neede ne HCl MG/5ML MG/5ML d} 6.25 MG/5ML Furosemide Furosemide No Furosemide Xifaxan 550 Xifaxan 550 No 1{table TID Xifaxan MG MG t} 550 MG Osteo Osteo No Osteo Bi-Flex Bi-Flex Bi-Flex Triple Triple Triple Strength Strength Strength Temazepam Temazepam No Temazepam Citalopram Citalopram No 1{table QD Citalopram Hydrobromid Hydrobromid t} Hydrobromi e 10 MG e 10 MG de 10 MG Simvastatin Simvastatin No Simvastati n Albuterol Albuterol No Albuterol Sulfate HFA Sulfate HFA Sulfate 108 (90 108 (90 HFA 108 Base) Base) (90 Base) MCG/ACT MCG/ACT MCG/ACT Trelegy Trelegy No Trelegy Ellipta Ellipta Ellipta amLODIPine amLODIPine No 1{table QD amLODIPine Besylate 10 Besylate 10 t_in_th Besylate MG MG e_eveni 10 MG ng} ProAir HFA ProAir HFA No 2{puffs ProAir HFA 108 (90 108 (90 _as_nee 108 (90 Base) Base) ded} Base) MCG/ACT MCG/ACT MCG/ACT Omeprazole Omeprazole No Omeprazole 40 MG 40 MG 40 MG Vitamin C Vitamin C No Vitamin C ProAir HFA ProAir HFA No 2{puffs ProAir HFA 108 (90 108 (90 _as_nee 108 (90 Base) Base) ded} Base) MCG/ACT MCG/ACT MCG/ACT Ivermectin Ivermectin No Ivermectin Clindamycin Clindamycin No Clindamyci HCl HCl n HCl Gabapentin Gabapentin No 1{capsu BID Gabapentin 300 MG 300 MG le} 300 MG Azithromyci Azithromyci No Azithromyc n n in Furosemide Furosemide No Furosemide predniSONE predniSONE No predniSONE Sucralfate Sucralfate No Sucralfate Temazepam Temazepam No Temazepam Citalopram Citalopram No 1{table QD Citalopram Hydrobromid Hydrobromid t} Hydrobromi e 10 MG e 10 MG de 10 MG amLODIPine amLODIPine No amLODIPine Besylate 10 Besylate 10 Besylate MG MG 10 MG Citalopram Citalopram No Citalopram Hydrobromid Hydrobromid Hydrobromi e 10 MG e 10 MG de 10 MG Trelegy Trelegy No Trelegy Ellipta Ellipta Ellipta Simvastatin Simvastatin No Simvastati n Omeprazole Omeprazole No Omeprazole 40 MG 40 MG 40 MG amLODIPine amLODIPine No 1{table QD amLODIPine Besylate 10 Besylate 10 t_in_th Besylate MG MG e_eveni 10 MG ng} Osteo Osteo No Osteo Bi-Flex Bi-Flex Bi-Flex Triple Triple Triple Strength Strength Strength Albuterol Albuterol No Albuterol Sulfate HFA Sulfate HFA Sulfate 108 (90 108 (90 HFA 108 Base) Base) (90 Base) MCG/ACT MCG/ACT MCG/ACT Omeprazole Omeprazole No Omeprazole Promethazin Promethazin No 10{ml_a QID Promethazi e HCl 6.25 e HCl 6.25 s_neede ne HCl MG/5ML MG/5ML d} 6.25 MG/5ML Dexamethaso Dexamethaso No Dexamethas ne ne one Xifaxan 550 Xifaxan 550 No 1{table TID Xifaxan MG MG t} 550 MG Symbicort Symbicort No 2{puffs BID Symbicort 160-4.5 160-4.5 } 160-4.5 MCG/ACT MCG/ACT MCG/ACT Losartan Losartan No 1{table QD Losartan Potassium Potassium t} Potassium 100 MG 100 MG 100 MG Albuterol Albuterol No Albuterol Sulfate HFA Sulfate HFA Sulfate 108 (90 108 (90 HFA 108 Base) Base) (90 Base) MCG/ACT MCG/ACT MCG/ACT Omeprazole Omeprazole No Omeprazole Dexamethaso Dexamethaso No Dexamethas ne ne one Temazepam Temazepam No Temazepam Furosemide Furosemide No Furosemide Trelegy Trelegy No Trelegy Ellipta Ellipta Ellipta Omeprazole Omeprazole No Omeprazole 40 MG 40 MG 40 MG Vitamin C Vitamin C No Vitamin C amLODIPine amLODIPine No amLODIPine Besylate 10 Besylate 10 Besylate MG MG 10 MG Sucralfate Sucralfate No Sucralfate Citalopram Citalopram No 1{table QD Citalopram Hydrobromid Hydrobromid t} Hydrobromi e 10 MG e 10 MG de 10 MG ProAir HFA ProAir HFA No 2{puffs ProAir HFA 108 (90 108 (90 _as_nee 108 (90 Base) Base) ded} Base) MCG/ACT MCG/ACT MCG/ACT Azithromyci Azithromyci No Azithromyc n n in Simvastatin Simvastatin No Simvastati n amLODIPine amLODIPine No 1{table QD amLODIPine Besylate 10 Besylate 10 t_in_th Besylate MG MG e_eveni 10 MG ng} Losartan Losartan No 1{table QD Losartan Potassium Potassium t} Potassium 100 MG 100 MG 100 MG Gabapentin Gabapentin No 1{capsu BID Gabapentin 300 MG 300 MG le} 300 MG predniSONE predniSONE No predniSONE Ivermectin Ivermectin No Ivermectin Clindamycin Clindamycin No Clindamyci HCl HCl n HCl Citalopram Citalopram No Citalopram Hydrobromid Hydrobromid Hydrobromi e 10 MG e 10 MG de 10 MG Xifaxan 550 Xifaxan 550 No 1{table TID Xifaxan MG MG t} 550 MG Osteo Osteo No Osteo Bi-Flex Bi-Flex Bi-Flex Triple Triple Triple Strength Strength Strength Promethazin Promethazin No 10{ml_a QID Promethazi e HCl 6.25 e HCl 6.25 s_neede ne HCl MG/5ML MG/5ML d} 6.25 MG/5ML Symbicort Symbicort No 2{puffs BID Symbicort 160-4.5 160-4.5 } 160-4.5 MCG/ACT MCG/ACT MCG/ACT amLODIPine amLODIPine No 1{table QD amLODIPine Besylate 10 Besylate 10 t_in_th Besylate MG MG e_eveni 10 MG ng} Temazepam Temazepam No Temazepam Sucralfate Sucralfate No Sucralfate Vitamin C Vitamin C No Vitamin C ProAir HFA ProAir HFA No 2{puffs ProAir HFA 108 (90 108 (90 _as_nee 108 (90 Base) Base) ded} Base) MCG/ACT MCG/ACT MCG/ACT Simvastatin Simvastatin No Simvastati n Clindamycin Clindamycin No Clindamyci HCl HCl n HCl Trelegy Trelegy No Trelegy Ellipta Ellipta Ellipta Furosemide Furosemide No Furosemide predniSONE predniSONE No predniSONE Albuterol Albuterol No Albuterol Sulfate HFA Sulfate HFA Sulfate 108 (90 108 (90 HFA 108 Base) Base) (90 Base) MCG/ACT MCG/ACT MCG/ACT Symbicort Symbicort No 2{puffs BID Symbicort 160-4.5 160-4.5 } 160-4.5 MCG/ACT MCG/ACT MCG/ACT Omeprazole Omeprazole No Omeprazole Promethazin Promethazin No 10{ml_a QID Promethazi e HCl 6.25 e HCl 6.25 s_neede ne HCl MG/5ML MG/5ML d} 6.25 MG/5ML Omeprazole Omeprazole No Omeprazole 40 MG 40 MG 40 MG Azithromyci Azithromyci No Azithromyc n n in Magnesium Magnesium No Magnesium Losartan Losartan No 1{table QD Losartan Potassium Potassium t} Potassium 100 MG 100 MG 100 MG Citalopram Citalopram No 1{table QD Citalopram Hydrobromid Hydrobromid t} Hydrobromi e 10 MG e 10 MG de 10 MG amLODIPine amLODIPine No amLODIPine Besylate 10 Besylate 10 Besylate MG MG 10 MG Gabapentin Gabapentin No 1{capsu BID Gabapentin 300 MG 300 MG le} 300 MG Xifaxan 550 Xifaxan 550 No 1{table TID Xifaxan MG MG t} 550 MG Citalopram Citalopram No Citalopram Hydrobromid Hydrobromid Hydrobromi e 10 MG e 10 MG de 10 MG Osteo Osteo No Osteo Bi-Flex Bi-Flex Bi-Flex Triple Triple Triple Strength Strength Strength Ivermectin Ivermectin No Ivermectin Dexamethaso Dexamethaso No Dexamethas ne ne one Immunizations Ordered Immunization Filled Immunization Date Status Commen ts Source Name Name [facility] 2021-05-02 [facility] 2021-05-02 [facility] 2021-05-02 [facility]00 [facility] 2021-05-02 [facility]02 [facility]02 [facility]02 [facility]-02 [facility]00 [facility] 2021-05-02 [facility]00 [facility] Afluria Afluria 2021-05-02 [facility]00 [facility] Afluria Afluria 2021-05-02 [facility] 09:[facility]00 [facility] Afluria Afluria 2021-05-02 [facility] 09:[facility]:00 [facility] Afluria Afluria 2021-05-02 [facility]00 [facility] Afluria Afluria 2021-05-02 [facility]00 [facility] Afluria Afluria 2021-05-02 [facility] 09:[facility]00 [facility] Afluria Afluria 2021-05-02 [facility]00 [facility] Afluria Afluria 2021-05-02 [facility] 09:[facility]:00 [facility] Afluria Afluria 2021-05-02 [facility] 09:[facility]:00 [facility] Afluria Afluria 2021-05-02 [facility] 09:[facility]:00 [facility] Afluria Afluria 2021-05-02 [facility] 09:[facility]:00 [facility] Afluria Afluria 2021-05-02 [facility] 09:[facility]:00 [facility] Afluria Afluria 2021-05-02 [facility] 09:[facility]:00 [facility] Afluria Afluria 2021-05-02 [facility]:00 [facility] Afluria Afluria 2021-05-02 [facility] 09:[facility]:00 [facility] Afluria Afluria 2021-05-02 [facility] 09:[facility]:00 [facility] Afluria Afluria 2021-05-02 [facility] 09:[facility]:00 [facility] Afluria Afluria 2021-05-02 [facility] 09:[facility]:00 [facility] Afluria Afluria 2021-05-02 [facility] 09:[facility]:00 [facility] Afluria Afluria 2021-05-02 [facility] 09:[facility]:00 [facility] Afluria Afluria 2021-05-02 [facility] 09:[facility]:00 [facility] Afluria Afluria 2021-05-02 [facility] 09:[facility]:00 [facility] Afluria Afluria 2021-05-02 [facility] 09:[facility]:00 [facility] Afluria Afluria 2021-05-02 [facility] 09:[facility]:00 [facility] Afluria Afluria 2021-05-02 [facility] 09:[facility]:00 [facility] Afluria Afluria 2021-05-02 [facility] 09:[facility]:00 [facility] Afluria Afluria 2021-05-02 [facility] 09:[facility]:00 [facility] Afluria Afluria 2021-05-02 [facility] 09:[facility]:00 [facility] Afluria Afluria 2021-05-02 [facility] 09:55:00 [facility] Afluria Afluria 2021-05-02 [facility] 09:[facility]:00 [facility] Afluria Afluria 2021-05-02 [facility] 09:[facility]:00 [facility] [id number] 2021-01-08 Completed Abdiel rial [id number] 00:00:00 Catrachita allen [id number] 2021-01-08 Completed Abdiel rial [id number] 00:00:00 Catrachita allen Hyalgan 20 mg Hyalgan 20 mg 2020-12-11 [facility] Hyalgan 20 mg Hyalgan 20 mg 2020-12-11 [facility] 11:[facility]00 [facility] Hyalgan 20 mg Hyalgan 20 mg 2020-12-06 [facility] 09:13[facility]00 [facility] Hyalgan 20 mg Hyalgan 20 mg 2020-12-06 Com[facility]:12[facility]00 [facility] Kenalog Kenalog 2020-11-22 [facility] (Triamcinolone) (Triamcinolone) 10:10:00 [facility] Bupivicaine Woodlyn Bupivicaine Woodlyn 2020-11-22 [facility] 10:09:00 [facility] Dagoberto Arenas 2020-11-22 [facility] (Triamcinolone) (Triamcinolone) 10:09:00 [facility] Bupivicaine Woodlyn Bupivicaine Woodlyn 2020-11-22 [facility] 10:08:00 [facility] Hyalgan 20 mg Hyalgan 20 mg 2020-11-22 [facility] 09:31:00 [facility] Hyalgan 20 mg Hyalgan 20 mg 2020-11-22 Completed [facility] 09:30:00 [facility] Bupivicaine Woodlyn Bupivicaine Woodlyn 2020-08-02 [facility] 09:59:00 [facility] Dagoberto Arenas 2020-08-02 [facility] (Triamcinolone) (Triamcinolone) 09:59:00 [facility] Pneumovax (PPSV23) Pneumovax (PPSV23) 2020-06-20 [facility]pleted [facility] 14:36:00 [facility] Pneumovax (PPSV23) Pneumovax (PPSV23) 2020-06-20 [facility] 14:36:00 [facility] Pneumovax (PPSV23) Pneumovax (PPSV23) 2020-06-20 [facility] 14:36:00 [facility] Pneumovax (PPSV23) Pneumovax (PPSV23) 2020-06-20 [facility] 14:36:00 [facility] Pneumovax (PPSV23) Pneumovax (PPSV23) 2020-06-20 [facility]pleted [facility] 14:36:00 [facility] Pneumovax (PPSV23) Pneumovax (PPSV23) 2020-06-20 [facility]pleted [facility] 14:36:00 [facility] Pneumovax (PPSV23) Pneumovax (PPSV23) 2020-06-20 [facility]pleted [facility] 14:36:00 [facility] Pneumovax (PPSV23) Pneumovax (PPSV23) 2020-06-20 [facility]pleted [facility] 14:36:00 [facility] Pneumovax (PPSV23) Pneumovax (PPSV23) 2020-06-20 [facility]pleted [facility] 14:36:00 [facility] Pneumovax (PPSV23) Pneumovax (PPSV23) 2020-06-20 [facility]pleted [facility] 14:36:00 [facility] Pneumovax (PPSV23) Pneumovax (PPSV23) 2020-06-20 [facility]pleted [facility] 14:36:00 [facility] Pneumovax (PPSV23) Pneumovax (PPSV23) 2020-06-20 [facility]pleted [facility] 14:36:00 [facility] Pneumovax (PPSV23) Pneumovax (PPSV23) 2020-06-20 [facility] 14:36:00 [facility] Pneumovax (PPSV23) Pneumovax (PPSV23) 2020-06-20 [facility] 14:36:00 [facility] Pneumovax (PPSV23) Pneumovax (PPSV23) 2020-06-20 [facility] 14:36:00 [facility] Pneumovax (PPSV23) Pneumovax (PPSV23) 2020-06-20 [facility] 14:36:00 [facility] Pneumovax (PPSV23) Pneumovax (PPSV23) 2020-06-20 [facility]pleted [facility] 14:36:00 [facility] Pneumovax (PPSV23) Pneumovax (PPSV23) 2020-06-20 [facility] 14:36:00 [facility] Pneumovax (PPSV23) Pneumovax (PPSV23) 2020-06-20 [facility]pleted [facility] 14:36:00 [facility] Pneumovax (PPSV23) Pneumovax (PPSV23) 2020-06-20 [facility]pleted [facility] 14:36:00 [facility] Pneumovax (PPSV23) Pneumovax (PPSV23) 2020-06-20 [facility] 14:36:00 [facility] Pneumovax (PPSV23) Pneumovax (PPSV23) 2020-06-20 [facility]pleted [facility] 14:36:00 [facility] Pneumovax (PPSV23) Pneumovax (PPSV23) 2020-06-20 [facility] 14:36:00 [facility] Pneumovax (PPSV23) Pneumovax (PPSV23) 2020-06-20 [facility] 14:36:00 [facility] Pneumovax (PPSV23) Pneumovax (PPSV23) 2020-06-20 [facility] 14:36:00 [facility] Pneumovax (PPSV23) Pneumovax (PPSV23) 2020-06-20 [facility]pleted [facility] 14:36:00 [facility] Pneumovax (PPSV23) Pneumovax (PPSV23) 2020-06-20 [facility]pleted [facility] 14:36:00 [facility] Pneumovax (PPSV23) Pneumovax (PPSV23) 2020-06-20 [facility] 14:36:00 [facility] Pneumovax (PPSV23) Pneumovax (PPSV23) 2020-06-20 [facility]pleted [facility] 14:36:00 [facility] Pneumovax (PPSV23) Pneumovax (PPSV23) 2020-06-20 [facility]pleted [facility] 14:36:00 [facility] Pneumovax (PPSV23) Pneumovax (PPSV23) 2020-06-20 [facility] 14:36:00 [facility] Pneumovax (PPSV23) Pneumovax (PPSV23) 2020-06-20 [facility] 14:36:00 [facility] Pneumovax (PPSV23) Pneumovax (PPSV23) 2020-06-20 [facility]pleted [facility] 14:36:00 [facility] Pneumovax (PPSV23) Pneumovax (PPSV23) 2020-06-20 [facility]pleted [facility] 14:36:00 [facility] Pneumovax (PPSV23) Pneumovax (PPSV23) 2020-06-20 [facility]pleted [facility] 14:36:00 [facility] Pneumovax (PPSV23) Pneumovax (PPSV23) 2020-06-20 [facility]pleted [facility] 14:36:00 [facility] Pneumovax (PPSV23) Pneumovax (PPSV23) 2020-06-20 [facility]pleted [facility] 14:36:00 [facility] Pneumovax (PPSV23) Pneumovax (PPSV23) 2020-06-20 Completed [facility] 14:36:00 [facility] Pneumovax (PPSV23) Pneumovax (PPSV23) 2020-06-20 Completed [facility] 14:36:00 [facility] Pneumovax (PPSV23) Pneumovax (PPSV23) 2020-06-20 Completed [facility] 14:36:00 [facility] Pneumovax (PPSV23) Pneumovax (PPSV23) 2020-06-20 [facility]pleted [facility] 14:36:00 [facility] Pneumovax (PPSV23) Pneumovax (PPSV23) 2020-06-20 Completed [facility] 14:36:00 [facility] Afluria single dose Afluria single dose 2020-06-20 Completed [facility] 14:35:00 [facility] Afluria single dose Afluria single dose 2020-06-20 Completed [facility] 14:35:00 [facility] Afluria single dose Afluria single dose 2020-06-20 Completed [facility] 14:35:00 [facility] Afluria single dose Afluria single dose 2020-06-20 Com[facility] 14:35:00 [facility] Afluria single dose Afluria single dose 2020-06-20 Completed [facility] 14:35:00 [facility] Afluria single dose Afluria single dose 2020-06-20 Completed [facility] 14:35:00 [facility] Afluria single dose Afluria single dose 2020-06-20 Completed [facility] 14:35:00 [facility] Afluria single dose Afluria single dose 2020-06-20 Com[facility] 14:35:00 [facility] Afluria single dose Afluria single dose 2020-06-20 Completed [facility] 14:35:00 [facility] Afluria single dose Afluria single dose 2020-06-20 Com[facility] 14:35:00 [facility] Afluria single dose Afluria single dose 2020-06-20 Com[facility] 14:35:00 [facility] Afluria single dose Afluria single dose 2020-06-20 Com[facility] 14:35:00 [facility] Afluria single dose Afluria single dose 2020-06-20 Com[facility] 14:35:00 [facility] Afluria single dose Afluria single dose 2020-06-20 Completed [facility] 14:35:00 [facility] Afluria single dose Afluria single dose 2020-06-20 Com[facility] 14:35:00 [facility] Afluria single dose Afluria single dose 2020-06-20 Com[facility] 14:35:00 [facility] Afluria single dose Afluria single dose 2020-06-20 Completed [facility] 14:35:00 [facility] Afluria single dose Afluria single dose 2020-06-20 Completed [facility] 14:35:00 [facility] Afluria single dose Afluria single dose 2020-06-20 Completed [facility] 14:35:00 [facility] Afluria single dose Afluria single dose 2020-06-20 Completed [facility] 14:35:00 [facility] Afluria single dose Afluria single dose 2020-06-20 Completed [facility] 14:35:00 [facility] Afluria single dose Afluria single dose 2020-06-20 Completed [facility] 14:35:00 [facility] Afluria single dose Afluria single dose 2020-06-20 Completed [facility] 14:35:00 [facility] Afluria single dose Afluria single dose 2020-06-20 Completed [facility] 14:35:00 [facility] Afluria single dose Afluria single dose 2020-06-20 Completed [facility] 14:35:00 [facility] Afluria single dose Afluria single dose 2020-06-20 Completed [facility] 14:35:00 [facility] Afluria single dose Afluria single dose 2020-06-20 Completed [facility] 14:35:00 [facility] Afluria single dose Afluria single dose 2020-06-20 Completed [facility] 14:35:00 [facility] Afluria single dose Afluria single dose 2020-06-20 Completed [facility] 14:35:00 [facility] Afluria single dose Afluria single dose 2020-06-20 Completed [facility] 14:35:00 [facility] Afluria single dose Afluria single dose 2020-06-20 Completed [facility] 14:35:00 [facility] Afluria single dose Afluria single dose 2020-06-20 Completed [facility] 14:35:00 [facility] Afluria single dose Afluria single dose 2020-06-20 Completed [facility] 14:35:00 [facility] Afluria single dose Afluria single dose 2020-06-20 Completed [facility] 14:35:00 [facility] Afluria single dose Afluria single dose 2020-06-20 Completed [facility] 14:35:00 [facility] Afluria single dose Afluria single dose 2020-06-20 Completed [facility] 14:35:00 [facility] Afluria single dose Afluria single dose 2020-06-20 Completed [facility] 14:35:00 [facility] Afluria single dose Afluria single dose 2020-06-20 Completed [facility] 14:35:00 [facility] Afluria single dose Afluria single dose 2020-06-20 Completed [facility] 14:35:00 [facility] Afluria single dose Afluria single dose 2020-06-20 Completed [facility] 14:35:00 [facility] Afluria single dose Afluria single dose 2020-06-20 Completed [facility] 14:35:00 [facility] Afluria single dose Afluria single dose 2020-06-20 Completed [facility] 14:35:00 [facility] Kenalog Kenalog 2019-10-13 Completed [facility] - (Triamcinolone) (Triamcinolone) 15:10:00 [facility] Vital Signs Vital Name Observation Time Observation Value Comments Source height 2022-09-09 11:20:00 68.5 [in_i] [facility] weight 2022-09-09 11:20:00 196 [lb_av] [facility] bmi 2022-09-09 11:20:00 29.37 kg/m2 [facility] blood pressure 2022-09-09 11:20:00 135 mm[Hg] [facility] - systolic [facility] blood pressure 2022-09-09 11:20:00 72 mm[Hg] [facility] - diastolic [facility] height 2022-08-19 08:15:00 68.5 [in_i] [facility] weight 2022-08-19 08:15:00 195 [lb_av] [facility] temperature 2022-08-19 08:15:00 97.7 [degF] [facility] bmi 2022-08-19 08:15:00 29.22 kg/m2 [facility] blood pressure 2022-08-19 08:15:00 138 mm[Hg] [facility] - systolic [facility] blood pressure 2022-08-19 08:15:00 86 mm[Hg] [facility] diastolic [facility] height 2022-07-10 11:00:00 68.5 [in_i] [facility] weight 2022-07-10 11:00:00 200 [lb_av] [facility] temperature 2022-07-10 11:00:00 97.2 [degF] [facility] bmi 2022-07-10 11:00:00 29.96 kg/m2 [facility] blood pressure 2022-07-10 11:00:00 136 mm[Hg] [facility] - systolic [facility] blood pressure 2022-07-10 11:00:00 84 mm[Hg] [facility] - diastolic [facility] height 2022-05-28 09:20:00 68.5 [in_i] [facility] weight 2022-05-28 09:20:00 200.0 [lb_av] [facility] temperature 2022-05-28 09:20:00 97.6 [degF] [facility] bmi 2022-05-28 09:20:00 29.96 kg/m2 [facility] oximetry 2022-05-28 09:20:00 95 % [facility] respiratory rate 2022-05-28 09:20:00 16 /min [facility] blood pressure 2022-05-28 09:20:00 138 mm[Hg] [facility] - systolic [facility] blood pressure 2022-05-28 09:20:00 78 mm[Hg] [facility] - diastolic [facility] height 2022-05-27 08:45:00 68.5 [in_i] [facility] weight 2022-05-27 08:45:00 211 [lb_av] [facility] temperature 2022-05-27 08:45:00 97.1 [degF] [facility] bmi 2022-05-27 08:45:00 31.61 kg/m2 [facility] blood pressure 2022-05-27 08:45:00 140 mm[Hg] [facility] blood pressure 2022-05-27 08:45:00 92 mm[Hg] [facility] diastolic [facility] height 2022-04-23 13:40:00 68.5 [in_i] [facility] weight 2022-04-23 13:40:00 201 [lb_av] [facility] temperature 2022-04-23 13:40:00 98.2 [degF] [facility] bmi 2022-04-23 13:40:00 30.11 kg/m2 [facility] oximetry 2022-04-23 13:40:00 95 % [facility] respiratory rate 2022-04-23 13:40:00 17 /min [facility] blood pressure 2022-04-23 13:40:00 138 mm[Hg] [facility] - systolic [facility] blood pressure 2022-04-23 13:40:00 79 mm[Hg] [facility] - diastolic [facility] height 2022-03-17 09:00:00 68.5 [in_i] [facility] weight 2022-03-17 09:00:00 200.5 [lb_av] [facility] temperature 2022-03-17 09:00:00 97.6 [degF] [facility] bmi 2022-03-17 09:00:00 30.04 kg/m2 [facility] oximetry 2022-03-17 09:00:00 95 % [facility] respiratory rate 2022-03-17 09:00:00 17 /min [facility] blood pressure 2022-03-17 09:00:00 136 mm[Hg] [facility] - systolic [facility] blood pressure 2022-03-17 09:00:00 72 mm[Hg] [facility] - diastolic [facility] height 2022-02-27 13:50:00 68.5 [in_i] [facility] weight 2022-02-27 13:50:00 201 [lb_av] [facility] temperature 2022-02-27 13:50:00 98.1 [degF] [facility] bmi 2022-02-27 13:50:00 30.11 kg/m2 [facility] oximetry 2022-02-27 13:50:00 98 % [facility] respiratory rate 2022-02-27 13:50:00 16 /min [facility] blood pressure 2022-02-27 13:50:00 124 mm[Hg] [facility] - systolic [facility] blood pressure 2022-02-27 13:50:00 77 mm[Hg] [facility] - diastolic [facility] blood pressure 2021-12-31 09:15:00 90 mm[Hg] [facility] diastolic [facility] height 2021-12-31 09:15:00 69 [in_i] [facility] weight 2021-12-31 09:15:00 211 [lb_av] [facility] temperature 2021-12-31 09:15:00 97.9 [degF] [facility] bmi 2021-12-31 09:15:00 31.16 kg/m2 [facility] blood pressure 2021-12-31 09:15:00 144 mm[Hg] [facility] systolic [facility] height 2021-12-17 08:15:00 69 [in_i] [facility] weight 2021-12-17 08:15:00 211 [lb_av] Common [facility] temperature 2021-12-17 08:15:00 98.3 [degF] Common [facility] bmi 2021-12-17 08:15:00 31.16 kg/m2 [facility] - [facility] blood pressure 2021-12-17 08:15:00 140 mm[Hg] [facility] - systolic [facility] blood pressure 2021-12-17 08:15:00 88 mm[Hg] [facility] - diastolic [facility] height 2021-12-10 13:15:00 69 [in_i] Common [facility] - [facility] weight 2021-12-10 13:15:00 211 [lb_av] Common S pirit [facility] bmi 2021-12-10 13:15:00 31.16 kg/m2 Common [facility] pirit - [facility] blood pressure 2021-12-10 13:15:00 140 mm[Hg] [facility] - systolic [facility] blood pressure 2021-12-10 13:15:00 84 mm[Hg] [facility] - diastolic [facility] height 2021-11-28 09:10:00 69 [in_i] Common [facility] weight 2021-11-28 09:10:00 213.3 [lb_av] Common [facility] - [facility] temperature 2021-11-28 09:10:00 97.2 [degF] Common [facility] bmi 2021-11-28 09:10:00 31.5 kg/m2 [facility] oximetry 2021-11-28 09:10:00 94 % [facility] respiratory rate 2021-11-28 09:10:00 16 /min Comm on [facility] - [facility] blood pressure 2021-11-28 09:10:00 138 mm[Hg] [facility] - systolic [facility] blood pressure 2021-11-28 09:10:00 73 mm[Hg] [facility] - diastolic [facility] height 2021-09-30 09:00:00 69 [in_i] Common [facility] weight 2021-09-30 09:00:00 211 [lb_av] [facility] temperature 2021-09-30 09:00:00 97.3 [degF] Common [facility] bmi 2021-09-30 09:00:00 31.16 kg/m2 Common [facility] blood pressure 2021-09-30 09:00:00 152 mm[Hg] [facility] - systolic [facility] blood pressure 2021-09-30 09:00:00 92 mm[Hg] Common [facility] - diastolic [facility] Systolic (mm Hg) 2021-05-02 19:53:00 Abdiel rial [facility] Diastolic (mm Hg) 2021-05-02 19:53:00 Mem orial [facility] Heart Rate 2021-05-02 19:53:00 [facility] Respitory Rate 2021-05-02 19:53:00 Mem[facility] Height 2021-05-02 19:53:00 172.72 cm [facility] Weight 2021-05-02 19:53:00 [facility] BMI Calculated 2021-05-02 19:53:00 Memori al [facility] Systolic (mm Hg) 2021-03-27 15:39:00 Abdiel rial Johnson Diastolic (mm Hg) 2021-03-27 15:39:00 Mem orial [facility] Heart Rate 2021-03-27 15:39:00 [facility] Respitory Rate 2021-03-27 15:39:00 Memori al [facility] Height 2021-03-27 15:39:00 172.72 cm [facility] Weight 2021-03-27 15:39:00 [facility] BMI Calculated 2021-03-27 15:39:00 Memori al [facility] Systolic (mm Hg) 2021-02-13 21:08:00 Abdiel rial Johnson Diastolic (mm Hg) 2021-02-13 21:08:00 Mem orial [facility] Heart Rate 2021-02-13 21:08:00 [facility] Respitory Rate 2021-02-13 21:08:00 [facility] Height 2021-02-13 21:08:00 175.26 cm [facility] Weight 2021-02-13 21:08:00 [facility] BMI Calculated 2021-02-13 21:08:00 [facility] Systolic (mm Hg) 2021-01-21 14:39:00 Abdiel rial Johnson Diastolic (mm Hg) 2021-01-21 14:39:00 Mem orial [facility] Heart Rate 2021-01-21 14:39:00 [facility] Respitory Rate 2021-01-21 14:39:00 Memori al [facility] Height 2021-01-21 14:39:00 175.26 cm [facility] Weight 2021-01-21 14:39:00 [facility] BMI Calculated 2021-01-21 14:39:00 [facility] Heart Rate 2018-04-16 16:43:00 [facility] Respitory Rate 2018-04-16 16:43:00 [facility] Temperature Oral (F) 2018-04-16 16:43:00 98.1 F [facility] Systolic (mm Hg) 2018-04-16 16:43:00 Abdiel rial Johnson Diastolic (mm Hg) 2018-04-16 16:43:00 Mem orial [facility] Heart Rate 2018-04-16 12:33:00 [facility] Temperature Oral (F) 2018-04-16 12:33:00 98.1 F [facility] Systolic (mm Hg) 2018-04-16 12:33:00 Abdiel rial Johnson Diastolic (mm Hg) 2018-04-16 12:33:00 Mem orial [facility] Respitory Rate 2018-04-16 12:33:00 Memori al [facility] Respitory Rate 2018-04-16 08:19:00 Memori al [facility] Heart Rate 2018-04-16 08:19:00 [facility] Temperature Oral (F) 2018-04-16 08:19:00 97.9 F [facility] Systolic (mm Hg) 2018-04-16 08:19:00 Abdiel rial Mccracken Diastolic (mm Hg) 2018-04-16 08:19:00 Mem orial [facility] Height 2018-04-15 14:08:00 175.26 cm [facility] BMI Calculated 2018-04-15 14:08:00 [facility] Weight 2018-04-15 14:08:00 [facility] Systolic (mm Hg) 2017-12-14 20:44:00 Abdiel rial Mccracken Diastolic (mm Hg) 2017-12-14 20:44:00 Mem orial [facility] Temperature Oral (F) 2017-12-14 20:44:00 97.7 F [facility] Respitory Rate 2017-12-14 20:44:00 Memori al [facility] Respitory Rate 2017-12-14 15:33:00 Memori al [facility]en Systolic (mm Hg) 2017-12-14 15:33:00 Abdiel rial Johnson Diastolic (mm Hg) 2017-12-14 15:33:00 Mem orial Johnson BMI Calculated 2017-12-14 15:23:00 Memori al [facility] Weight 2017-12-14 15:23:00 [facility] Height 2017-12-14 15:23:00 175.26 cm [facility] Respitory Rate 2017-12-14 15:03:00 Finesse soto Johnson Systolic (mm Hg) 2017-12-14 15:03:00 Abdiel mendes Johnson Diastolic (mm Hg) 2017-12-14 15:03:00 Mem yi [facility] Temperature Oral (F) 2017-12-14 14:20:00 97.6 F [facility] Temperature Oral (F) 2017-12-14 12:18:00 97.8 F [facility] Height 2017-12-14 12:02:00 180.34 cm [facility] BMI Calculated 2017-12-14 12:02:00 Finesse soto [facility] Weight 2017-12-14 12:02:00 [facility] Heart Rate 2017-12-14 12:02:00 [facility] Procedures Procedure Date / Time Performed Performing Clinician Regine e section [facility] Append[facility] Hyste[facility] Chole[facility] Encounters Start End Encounter Admission Attending Care Care Encounter Source Date/Time Date/Time Type Type Clinicians Facility Department ID 2022-09-05 [facility] STLMLC STLMLC [id number] Common 11:52:01 Jun [id number] [facility] 2022-08-19 Outpatient [facility], STLMLC STLMLC [id number] Common 08:44:01 Jun [id number] [facility] 2022-07-10 Outpatient [facility], STLMLC STLMLC [id number] Common 08:13:02 Jun [id number] [facility] 2022-05-28 Outpatient [facility], STLMLC STLMLC [id number] Common 11:27:00 Jun [facility] 2022-05-19 Outpatient [facility], STLMLC STLMLC [id number] Common 15:13:01 Jun [facility] 2022-04-23 Outpatient [facility], STLMLC STLMLC [id number] Common 13:42:01 Jun [facility] 2022-02-27 Outpatient [facility], STLMLC STLMLC [id number] Common 13:45:00 Jun [facility] 2022-02-18 Outpatient [facility], STLMLC STLMLC [id number] Common 10:02:01 Jun [facility] 2022-01-02 Outpatient [facility], STLMLC STLMLC [id number] Common 09:20:01 Jun [facility] 2021-12-09 Outpatient [facility], STLMLC STLMLC [id number] Common 09:46:01 Jun [facility] 2021-11-22 Outpatient [facility], STLMLC STLMLC [id number] Common 10:08:00 Jun [facility] 2021-09-30 Outpatient [facility], STLMLC STLMLC [id number] Common 10:25:00 Jun [facility] 2021-09-27 Outpatient [facility], STLMLC STLMLC [id number] Common 08:33:02 Jun [facility] 2021-09-17 Outpatient [facility], STLMLC STLMLC [id number] Common 13:21:02 Jun [facility] 2021-09-16 Outpatient [facility], STLMLC STLMLC [id number] Common 09:25:02 Jun [facility] 2021-08-28 Outpatient [facility], STLMLC STLMLC [id number] Common 14:31:08 Jun [facility] 2021-08-28 Outpatient [facility], STLMLC STLMLC [id number] Common 13:54:39 Jun [id number] [facility] 2021-08-28 Outpatient [facility], STLMLC STLMLC [id number] Common 13:31:33 Jun [id number] [facility] 2021-08-28 Outpatient [facility], STLMLC STLMLC [id number] Common 12:48:45 Jun [id number] [facility] 2021-08-28 Outpatient [facility], STLMLC STLMLC [id number] Common 12:31:23 Jun [id number] [facility] 2021-08-28 Outpatient [facility], STLMLC STLMLC [id number] Common 12:28:23 Jun [id number] [facility] 2021-08-28 Outpatient [facility], STLMLC STLMLC [id number] Common 12:17:10 Jun [id number] [facility] 2021-08-28 Outpatient [facility], STLMLC STLMLC [id number] Common 12:15:01 Jun [id number] [facility] 2021-08-28 Outpatient [facility], STLMLC STLMLC [id number] Common 11:32:24 Jun [id number] [facility] 2021-08-28 Outpatient [facility], STLMLC STLMLC [id number] Common 11:31:30 Jun [id number] [facility] 2021-08-28 Outpatient [facility], STLMLC STLMLC [id number] Common 11:20:48 Jun [id number] [facility] 2021-08-28 Outpatient [facility], STLMLC STLMLC [id number] Common 11:16:50 Jun [id number] [facility] 2021-08-28 Outpatient [facility], STLMLC STLMLC [id number] Common 11:16:28 Jun [id number] [facility] 2021-08-28 Outpatient STLMLC STLMLC [id number] Common 11:13:33 [id number] [facility] 2022-09-09 2022-09-09 OFFICE STLMLC STLMLC [id number] Co mmon 00:00:00 00:00:00 VISIT Spirit ESTAB PT - CHI LEVEL 4 [facility] 2022-08-26 2022-08-26 (TEL) STLMLC STLMLC [id number] Co mmon 00:00:00 00:00:00 [facility] 2022-08-19 2022-08-19 OFFICE STLMLC STLMLC [id number] Co mmon 00:00:00 00:00:00 VISIT Spirit ESTAB PT - [facility]I LEVEL 4 [facility] 2022-07-10 2022-07-10 OFFICE STLMLC STLMLC [id number] Co mmon 00:00:00 00:00:00 VISIT EST Spir it PT LEVEL 3 - [facility] 2022-07-09 2022-07-09 (TEL) STLMLC STLMLC [id number] Co mmon 00:00:00 00:00:00 [facility] 2022-07-08 2022-07-08 (TEL) STLMLC STLMLC [id number] Co mmon 00:00:00 00:00:00 [facility] 2022-06-30 2022-06-30 (TEL) STLMLC STLMLC [id number] Co mmon 00:00:00 00:00:00 [facility] 2022-06-30 2022-06-30 (TEL) STLMLC STLMLC [id number] Co mmon 00:00:00 00:00:00 [facility] 2022-06-11 2022-06-11 (TEL) STLMLC STLMLC [id number] Co mmon 00:00:00 00:00:00 [facility] 2022-05-30 2022-05-30 (TEL) STLMLC STLMLC [id number] Co mmon 00:00:00 00:00:00 [facility] 2022-05-28 2022-05-28 (WELLNESS) STLMLC STLMLC [id number] Common 00:00:00 00:00:00 Wellness Spiri t Visit [facility] 2022-05-27 2022-05-27 OFFICE STLMLC STLMLC [id number] Co mmon 00:00:00 00:00:00 VISIT [facility] PT - CHI LEVEL 4 [facility] 2022-05-20 2022-05-20 (TEL) STLMLC STLMLC [id number] Co mmon 00:00:00 00:00:00 [facility] 2022-05-14 2022-05-14 (TEL) STLMLC STLMLC [id number] Co mmon 00:00:00 00:00:00 [facility] 2022-05-08 2022-05-08 (TEL) STLMLC STLMLC [id number] Co mmon 00:00:00 00:00:00 [facility] 2022-05-05 2022-05-05 (TEL) STLMLC STLMLC [id number] Co mmon 00:00:00 00:00:00 [facility] 2022-04-23 2022-04-23 (TEL) STLMLC STLMLC [id number] Co mmon 00:00:00 00:00:00 [facility] 2022-04-23 2022-04-23 OFFICE STLMLC STLMLC [id number] Co mmon 00:00:00 00:00:00 VISIT EST Spir it PT LEVEL 3 [facility] 2022-04-14 2022-04-14 (TEL) STLMLC STLMLC [id number] Co mmon 00:00:00 00:00:00 [facility] 2022-04-02 2022-04-02 (TEL) STLMLC STLMLC [id number] Co mmon 00:00:00 00:00:00 [facility] 2022-03-17 2022-03-17 OFFICE STLMLC STLMLC [id number] Co mmon 00:00:00 00:00:00 VISIT EST Spir it PT LEVEL 3 [facility] 2022-03-13 2022-03-13 (TEL) STLMLC STLMLC [id number] Co mmon 00:00:00 00:00:00 [facility] 2022-03-04 2022-03-04 (TEL) STLMLC STLMLC [id number] Co mmon 00:00:00 00:00:00 [facility] 2022-02-27 2022-02-27 OFFICE STLMLC STLMLC [id number] Co mmon 00:00:00 00:00:00 VISIT [facility] PT [facility] LEVEL 4 [facility] 2021-12-31 2021-12-31 (IN/ASP) STLMLC STLMLC [id number] C ommon 00:00:00 00:00:00 INJ ASP [facility] 2021-12-17 2021-12-17 (IN/ASP) STLMLC STLMLC [id number] C ommon 00:00:00 00:00:00 INJ ASP [facility] 2021-12-10 2021-12-10 (IN/ASP) STLMLC STLMLC [id number] C ommon 00:00:00 00:00:00 INJ ASP [facility] 2021-12-03 2021-12-03 (TEL) STLMLC STLMLC [id number] Co mmon 00:00:00 00:00:00 [facility] 2021-11-28 2021-11-28 OFFICE STLMLC STLMLC [id number] Co mmon 00:00:00 00:00:00 VISIT [facility] PT - [facility] LEVEL 4 [facility] 2021-11-26 2021-11-26 (TEL) STLMLC STLMLC [id number] Co mmon 00:00:00 00:00:00 [facility] 2021-11-22 2021-11-22 (TEL) STLMLC STLMLC [id number] Co mmon 00:00:00 00:00:00 [facility] 2021-10-29 2021-10-29 (TEL) STLMLC STLMLC [id number] Co mmon 00:00:00 00:00:00 [facility] 2021-10-28 2021-10-28 (TEL) STLMLC STLMLC [id number] Co mmon 00:00:00 00:00:00 [facility] 2021-10-22 2021-10-22 (TEL) STLMLC STLMLC [id number] Co mmon 00:00:00 00:00:00 [facility] 2021-09-30 2021-09-30 OFFICE STLMLC STLMLC [id number] Co mmon 00:00:00 00:00:00 VISIT [facility] PT [facility] LEVEL 4 [facility] 2021-09-16 2021-09-16 (TEL) STLMLC STLMLC [id number] Co mmon 00:00:00 00:00:00 [facility] 2021-07-02 2021-07-02 Ambulatory nullFlavo MNA [id number] Memoria 15:45:00 15:45:00 Pre-Reg r Neurology 04 arnold Ornelas 2021-07-02 2021-07-02 Ambulatory nullFlavo MNA [id number] Memoria 15:45:00 15:45:00 Pre-Reg r Neurology 04 l Jm Ornelas 2021-07-02 2021-07-02 Outpatient Felton [facility] [id number] 09:45:00 09:45:00 Stoney 04 Alexx 2021-06-12 2021-06-12 Outpatient MHIE MHIE [id number] Memoria 10:45:00 10:45:00 04 arnold Ornelas 2021-05-20 2021-05-20 (TEL) [facility] [id number] Co mmon 00:00:00 00:00:00 [facility] 2021-05-02 2021-05-03 Outpatient nullFlavo MNA [id number] Memoria 19:45:00 04:59:59 r Neurology 03 arnold Ornelas 2021-05-02 2021-05-03 Outpatient nullFlavo MNA [id number] Memoria 19:45:00 04:59:59 r Neurology 03 arnold Ornelas 2021-05-02 2021-05-02 Outpatient Felton [facility] [id number] 14:45:00 23:59:59 Stoney Anel Coffey 2021-05-02 2021-05-02 Outpatient MHIE MHIE [id number] Memoria 14:45:00 14:45:00 03 arnold Ornelas 2021-05-02 2021-05-02 [facility] [id number] Common 00:00:00 00:00:00 [facility] 2021-03-27 2021-03-28 Outpatient nullFlavo MNA [id number] Memoria 15:45:00 04:59:59 r Neurology 02 arnold Ornelas 2021-03-27 2021-03-28 Outpatient nullFlavo MNA [id number] Memoria 15:45:00 04:59:59 r Neurology 02 arnold Ornelas 2021-03-27 2021-03-27 [facility] [id number] 10:45:00 23:59:59 Stoney 02 Alexx 2021-03-27 2021-03-27 Outpatient MHIE MHIE [id number] Memoria 10:45:00 10:45:00 02 arnold Ornelas 2021-02-27 2021-02-27 Outpatient STLMLC STLMLC [id number] Common 00:00:00 00:00:00 [facility] 2021-02-13 2021-02-14 Outpatient nullFlavo MNA [id number] Memoria 21:00:00 04:59:59 r Neurology 01 l Jm Ornelas 2021-02-13 2021-02-14 Outpatient nullFlavo MNA [id number] Memoria 21:00:00 04:59:59 r Neurology 01 arnold Ornelas 2021-02-13 2021-02-13 [facility] [id number] 16:00:00 23:59:59 Stoney 01 Alexx 2021-02-13 2021-02-13 Outpatient MHIE MHIE [id number] Memoria 16:00:00 16:00:00 01 arnold Ornelas 2021-01-21 2021-01-22 Outpatient nullFlavo MNA [id number] Memoria 14:45:00 04:59:59 r Neurology 00 l Jm Ornelas 2021-01-21 2021-01-22 Outpatient nullFlavo MNA [id number] Memoria 14:45:00 04:59:59 r Neurology 00 l Jm Domínguezann 2021-01-21 2021-01-21 [facility] [id number] 09:45:00 23:59:59 Stoney 00 Alexx 2021-01-21 2021-01-21 Outpatient MHIE MHIE [id number] Memoria 09:45:00 09:45:00 00 arnold Ornelas 2021-01-07 2021-01-07 Outpatient STLMLC STLMLC [id number] Common 00:00:00 00:00:00 [facility] 2020-12-13 2020-12-13 Outpatient STLMLC STLMLC [id number] Common 00:00:00 00:00:00 [facility] 2020-12-11 2020-12-11 Outpatient STLMLC STLMLC [id number] Common 00:00:00 00:00:00 [facility] 2020-12-10 2020-12-10 Outpatient STLMLC STLMLC [id number] Common 00:00:00 00:00:00 [facility] 2020-12-06 2020-12-06 Outpatient STLMLC STLMLC [id number] Common 00:00:00 00:00:00 [facility] 2020-12-06 2020-12-06 Outpatient STLMLC STLMLC [id number] Common 00:00:00 00:00:00 [facility] 2020-11-30 2020-11-30 Outpatient STLMLC STLMLC [id number] Common 00:00:00 00:00:00 [facility] 2020-11-29 2020-11-29 Outpatient STLMLC STLMLC [id number] Common 00:00:00 00:00:00 [facility] 2020-11-29 2020-11-29 Outpatient STLMLC STLMLC [id number] Common 00:00:00 00:00:00 [facility] 2020-11-22 2020-11-22 Outpatient STLMLC STLMLC [id number] Common 00:00:00 00:00:00 [facility] 2020-11-16 2020-11-16 Outpatient STLMLC STLMLC [id number] Common 00:00:00 00:00:00 [facility] 2020-11-12 2020-11-12 Outpatient STLMLC STLMLC [id number] Common 00:00:00 00:00:00 [facility] 2020-11-07 2020-11-07 Outpatient STLMLC STLMLC [id number] Common 00:00:00 00:00:00 [facility] 2020-11-06 2020-11-06 Outpatient STLMLC STLMLC [id number] Common 00:00:00 00:00:00 [facility] 2020-10-31 2020-10-31 Outpatient STLMLC STLMLC [id number] Common 00:00:00 00:00:00 [facility] 2020-09-21 2020-09-21 Outpatient STLMLC STLMLC [id number] Common 00:00:00 00:00:00 [facility] 2020-09-20 2020-09-20 Outpatient STLMLC STLMLC [id number] Common 00:00:00 00:00:00 [facility] 2020-09-11 2020-09-11 Outpatient STLMLC STLMLC [id number] Common 00:00:00 00:00:00 [facility] 2020-09-05 2020-09-05 Outpatient STLMLC STLMLC [id number] Common 00:00:00 00:00:00 [facility] 2020-09-04 2020-09-04 Outpatient STLMLC STLMLC [id number] Common 00:00:00 00:00:00 [facility] 2020-08-31 2020-08-31 Outpatient STLMLC STLMLC [id number] Common 00:00:00 00:00:00 [facility] 2020-08-29 2020-08-29 Outpatient STLMLC STLMLC [id number] Common 00:00:00 00:00:00 [facility] 2020-08-02 2020-08-02 Outpatient STLMLC STLMLC [id number] Common 00:00:00 00:00:00 [facility] 2020-06-21 2020-06-21 Outpatient STLMLC STLMLC [id number] Common 00:00:00 00:00:00 [facility] 2020-06-20 2020-06-20 Outpatient STLMLC STLMLC [id number] Common 00:00:00 00:00:00 [facility] 2020-02-23 2020-02-23 [facility] [id number] Common 10:30:00 10:30:00 [employer] [facility] 2020-02-02 2020-02-02 [facility] [id number] Common 16:15:00 16:15:[address] [facility] 2020-01-26 2020-01-26 [facility] [id number] Common 09:02:00 09:02:00 [address] [facility] 2020-01-25 2020-01-25 [facility] [id number] Common 09:33:00 09:33:00 [address] [facility] 2020-01-24 2020-01-24 [facility] [id number] Common 15:30:00 15:30:00 t [address] [facility] 2020-01-23 2020-01-23 [facility] [id number] Common 08:26:00 08:26:[address] [facility] [address] [facility] 2020-01-23 2020-01-23 [facility] [id number] Common 00:14:00 00:14:00 t [facility] [address] [facility] 2020-01-06 2020-01-06 [facility] [id number] Common 08:06:00 08:06:00 [address] [facility] 2020-01-05 2020-01-05 [facility] [id number] Common 10:30:00 10:30:00 [address] [facility] 2020-01-01 2020-01-01 [facility] [id number] Common 19:47:00 19:47:00 t [address] [facility] 2019-12-13 2019-12-13 [facility] [id number] Common 13:27:00 13:27:[address] [facility] 2019-12-08 2019-12-08 [facility] [id number] Common 08:07:00 08:07:00 [address] [facility] 2019-12-07 2019-12-07 [facility] [id number] Common 13:00:00 13:00:00 t [address] [facility] 2019-11-24 2019-11-24 [facility] [id number] Common 09:15:00 09:15:00 t [address] [facility] 2019-11-04 2019-11-04 [facility] [id number] Common 09:00:00 09:00:00 t [address] [facility] 2019-10-13 2019-10-13 Out[facility] [id number] Common 14:30:00 14:30:00 [address] [facility] 2018-04-15 2018-04-16 [facility] [id number] Memoria 14:01:00 18:30:00 n renetta Ornelas 00 l [facility] 2018-04-15 2018-04-16 [facility] [id number] Memoria 14:01:00 18:30:00 n renetta Ornelas 00 l [facility] 2018-04-15 2018-04-16 Outpatient JON Steel [facility] [id number] 09:01:00 13:30:00 Miguel 00 [employer] 2017-12-14 2017-12-14 Observatio [facility]Flavo [facility] [id number] Memoria 12:00:00 22:10:00 jorge Ornelas 67 [facility] 2017-12-14 2017-12-14 Observatio [facility]Fl[facility] [id number] Memoria 12:00:00 22:10:00 jorge Ornelas 67 [facility] 2017-12-14 2017-12-14 Outpatient Robin [facility] [id number] 07:00:00 17:10:00 Renea Carpenter Results Test Description Test Time Test Comments Results Result Comments Source [facility] 2018-04-16 05:17:00 Test Item Value Reference Range Interpretation Comme nts Troponin-I (test code = no gt See_Comment [Au tomated message] The system Troponin-I) which generated this result transmitted ref erence range: <=0.40. The ref erence range was not used to interpr et this result as normal/abnormal . [facility]2018-09-14 05:17:00 Test Item Value Reference Range Interpretation Comments eGFR (test code = eGFR) 53 [facility]2018-09-14 05:17:00 Test Item Value Reference Range Interpretation Comments Chloride Lvl (test code = Chloride Lvl) 105 95-109 [facility]2018-09-14 05:17:00 Test Item Value Reference Range Interpretation Comments CO2 (test code = CO2) 31 24-32 [facility]2018-09-14 05:17:00 Test Item Value Reference Range Interpretation Comments Potassium Lvl (test code = Potassium 4.5 3.5-5.1 Lvl) [facility]2018-09-14 05:17:00 Test Item Value Reference Range Interpretation Comments Sodium Lvl (test code = Sodium Lvl) 142 135-145 [facility]2018-09-14 05:17:00 Test Item Value Reference Range Interpretation Comments BUN (test code = BUN) 15 7-22 [facility]2018-09-14 05:17:00 Test Item Value Reference Range Interpretation Comments Creatinine Lvl (test code = Creatinine 1.15 0.50-1.40 Lvl) [facility]2018-09-14 05:17:00 Test Item Value Reference Range Interpretation Comments Calcium Lvl (test code = Calcium Lvl) 8.6 8.5-10.5 [facility]2018-09-14 05:17:00 Test Item Value Reference Range Interpretation Comments AGAP (test code = AGAP) 10.5 10.0-20.0 [facility]2018-09-14 05:17:00 Test Item Value Reference Range Interpretation Comments Glucose Lvl (test code = Glucose Lvl) 100 70-99 [facility] AustinJfoqrhbHJRZELKOSI5758-02-46 05:17:00 Test Item Value Reference Range Interpretation Comments Hct (test code = Hct) 38.9 36.0-48.0 [place] 054758-09-14 05:17:00 Test Item Value Reference Range Interpretation Comments MPV (test code = MPV) 9.0 7.4-10.4 [facility] AustinDbyirqnDHLCEFYGMQ4022-37-48 05:17:00 Test Item Value Reference Range Interpretation Comments Platelet (test code = Platelet) 133 133-450 [facility] AustinPqzdhvgVVRUAGDQDX0945-27-45 05:17:00 Test Item Value Reference Range Interpretation Comments MCHC (test code = MCHC) 34.7 32.0-36.0 [facility] AustinAgrzazmZGMPVYVZMN4095-32-32 05:17:00 Test Item Value Reference Range Interpretation Comments MCV (test code = MCV) 96.7 80.0-98.0 [facility] AustinLdhgxjaJNZOFZENCS3435-28-83 05:17:00 Test Item Value Reference Range Interpretation Comments RDW (test code = RDW) 12.9 11.5-14.5 [facility] AustinLjaxwrxQEWEYWZZHR8290-18-78 05:17:00 Test Item Value Reference Range Interpretation Comments MCH (test code = MCH) 33.6 pg 27.0-31.0 [facility] AustinMkpvumbUAKVVPQIVE2016-63-25 05:17:00 Test Item Value Reference Range Interpretation Comments WBC (test code = WBC) 3.9 3.7-10.4 [facility] AustinOwctcorACCIMUDKJD0564-66-70 05:17:00 Test Item Value Reference Range Interpretation Comments RBC (test code = RBC) 4.02 4.20-5.40 [facility]NpzbtkwBKQPTI0311-42-59 05:17:00 Test Item Value Reference Range Interpretation Comments VLDL (test code = VLDL) 44 1 [facility] LancasterMdbtrajIQSNDP7371-67-16 05:17:00 Test Item Value Reference Range Interpretation Comments LDL (Calculated) (test code = LDL 87 (Calculated)) [facility] LancasterYjovacdGLJPME6182-04-71 05:17:00 Test Item Value Reference Range Interpretation Comments HDL (test code = HDL) 49 [facility] LancasterEepulykMVZUZJ9998-56-02 05:17:00 Test Item Value Reference Range Interpretation Comments Chol (test code = Chol) 180 [facility] LancasterLimtykvHJKMFT8938-12-66 05:17:00 Test Item Value Reference Range Interpretation Comments Trig (test code = Trig) 220 [facility] LancasterLyrqwgtBDLPKF8670-02-88 05:17:00 Test Item Value Reference Range Interpretation Comments CHD Risk (test code = CHD Risk) 3.67 1 3.90-5.80 [facility] RZHIUOOKZ8236-65-20 05:17:00 Test Item Value Reference Range Interpretation Comments Hgb A1C (test code = Hgb A1C) 5.5 [facility] UDUEWNR0067-84-91 05:17:00 Test Item Value Reference Range Interpretation Comments Troponin-I (test code no gt See_Comment [Auto mated message] The = Troponin-I) system which g enerated this result transmit yariel reference range : <=0.40. The reference r chasity was not used to interpr et this result as anil l/abnormal. [facility] [id number] 05:17:00 Test Item Value Reference Range Interpretation Comments eGFR (test code = eGFR) 53 [facility]2018-09-14 05:17:00 Test Item Value Reference Range Interpretation Comments Chloride Lvl (test code = Chloride Lvl) 105 95-109 [facility]evilleFin[facility] [id number] 05:17:00 Test Item Value Reference Range Interpretation Comments CO2 (test code = CO2) 31 24-32 [facility] [id number] 05:17:00 Test Item Value Reference Range Interpretation Comments Potassium Lvl (test code = Potassium 4.5 3.5-5.1 Lvl) [facility] [id number] 05:17:00 Test Item Value Reference Range Interpretation Comments Sodium Lvl (test code = Sodium Lvl) 142 135-145 [facility] [id number] 05:17:00 Test Item Value Reference Range Interpretation Comments BUN (test code = BUN) 15 7-22 [facility] [id number] 05:17:00 Test Item Value Reference Range Interpretation Comments Creatinine Lvl (test code = Creatinine 1.15 0.50-1.40 Lvl) [facility] [id number] 05:17:00 Test Item Value Reference Range Interpretation Comments Calcium Lvl (test code = Calcium Lvl) 8.6 8.5-10.5 [facility]Fin[facility] [id number] 05:17:00 Test Item Value Reference Range Interpretation Comments AGAP (test code = AGAP) 10.5 10.0-20.0 [facility]2018-09-14 05:17:00 Test Item Value Reference Range Interpretation Comments Glucose Lvl (test code = Glucose Lvl) 100 70-99 [facility] AustinOycfwprMLEPHOZBGR4907-40-92 05:17:00 Test Item Value Reference Range Interpretation Comments Hct (test code = Hct) 38.9 36.0-48.0 [facility] AustinNlsbkjfZDKTHZPXZE3254-36-37 05:17:00 Test Item Value Reference Range Interpretation Comments Hgb (test code = Hgb) 13.5 12.0-16.0 [facility] AustinXasdwwpRIRPCAVOWW8715-23-55 05:17:00 Test Item Value Reference Range Interpretation Comments Hgb (test code = Hgb) 13.5 12.0-16.0 [facility] AustinHggxgoeQHCYZDHEGF9525-03-50 05:17:00 Test Item Value Reference Range Interpretation Comments MPV (test code = MPV) 9.0 7.4-10.4 [facility] AustinXetzaxmEUENUJFVUY5903-31-14 05:17:00 Test Item Value Reference Range Interpretation Comments Platelet (test code = Platelet) 133 133-450 [facility] AustinLohktaxEVSMEMEVUZ3155-82-83 05:17:00 Test Item Value Reference Range Interpretation Comments MCHC (test code = MCHC) 34.7 32.0-36.0 [facility] AustinXcpajtpBNTIOVVKJL0060-33-69 05:17:00 Test Item Value Reference Range Interpretation Comments MCV (test code = MCV) 96.7 80.0-98.0 [facility] AustinDobbybgXIALQCFUTS5361-97-89 05:17:00 Test Item Value Reference Range Interpretation Comments RDW (test code = RDW) 12.9 11.5-14.5 [facility] AustinVibuubmJBIFTKUQFD3970-79-65 05:17:00 Test Item Value Reference Range Interpretation Comments MCH (test code = MCH) 33.6 pg 27.0-31.0 [facility] AustinFxfeopuKTOPPZMSXA7985-09-18 05:17:00 Test Item Value Reference Range Interpretation Comments WBC (test code = WBC) 3.9 3.7-10.4 [facility] AustinDbuxcojVNAIMDIXQO6368-20-23 05:17:00 Test Item Value Reference Range Interpretation Comments RBC (test code = RBC) 4.02 4.20-5.40 [facility] LancasterQfemozqMBWOHS2776-74-34 05:17:00 Test Item Value Reference Range Interpretation Comments VLDL (test code = VLDL) 44 1 [facility]evilleVnqsoxxCMIQJM2775-38-86 05:17:00 Test Item Value Reference Range Interpretation Comments LDL (Calculated) (test code = LDL 87 (Calculated)) [facility]evilleMhsonedZSFIZX2545-81-59 05:17:00 Test Item Value Reference Range Interpretation Comments HDL (test code = HDL) 49 [facility] BeevilleGkomgniBGCYSK5884-47-35 05:17:00 Test Item Value Reference Range Interpretation Comments Chol (test code = Chol) 180 [facility] BudaShxjablWSJVCV3531-81-08 05:17:00 Test Item Value Reference Range Interpretation Comments Trig (test code = Trig) 220 [facility] BeevilleRgwpaesDPQNCE3325-00-55 05:17:00 Test Item Value Reference Range Interpretation Comments CHD Risk (test code = CHD Risk) 3.67 1 3.90-5.80 [facility] HFTUFRYTK9705-40-13 05:17:00 Test Item Value Reference Range Interpretation Comments Hgb A1C (test code = Hgb A1C) 5.5 [facility]evilleCARP[place] SocialAC SBZJUYJ8702-21-73 23:18:00 Test Item Value Reference Range Interpretation Comments Troponin-I (test code no gt See_Comment [Auto mated message] The = Troponin-I) system which g enerated this result transmit yariel reference range : <=0.40. The reference r chasity was not used to interpr et this result as anil l/abnormal. [facility] BudaFClub RPKXCCP7339-31-92 23:18:00 Test Item Value Reference Range Interpretation Comments Troponin-I (test code no gt See_Comment [Auto mated message] The = Troponin-I) system which g enerated this result transmit yariel reference range : <=0.40. The reference r chasity was not used to interpr et this result as anil l/abnormal. [facility] [id number] 18:29:00 Test Item Value Reference Range Interpretation Comments Lactic Acid Lvl (test code = Lactic 0.7 0.5-2.2 Acid Lvl) [facility] [id number] 18:29:00 Test Item Value Reference Range Interpretation Comments Lipase Lvl (test code = Lipase Lvl) 87 73-393 [facility] [id number] 18:29:00 Test Item Value Reference Range Interpretation Comments Lactic Acid Lvl (test code = Lactic 0.7 0.5-2.2 Acid Lvl) [facility]2018-09-13 18:29:00 Test Item Value Reference Range Interpretation Comments Lipase Lvl (test code = Lipase Lvl) 87 73-393 [facility] Sakti32018-09-13 17:49:00 Test Item Value Reference Range Interpretation Comments Troponin-I (test code no gt See_Comment [Auto mated message] The = Troponin-I) system which g enerated this result transmit yariel reference range : <=0.40. The reference r chasity was not used to interpr et this result as anil l/abnormal. [facility] Sakti32018-09-13 17:49:00 Test Item Value Reference Range Interpretation Comments Troponin-I (test code no gt See_Comment [Auto mated message] The = Troponin-I) system which g enerated this result transmit yariel reference range : <=0.40. The reference r chasity was not used to interpr et this result as anil l/abnormal. [facility] Sakti32018-09-13 15:16:00 Test Item Value Reference Range Interpretation Comments Total CK (test code = Total CK) 109 12-191 [facility] Sakti32018-09-13 15:16:00 Test Item Value Reference Range Interpretation Comments proBNP (test code = 64 See_Comment [Automa yariel message] The proBNP) system which ge nerated this result tra nsmitted reference range : <=125. The reference r chasity was not used to int erpret this result as anil l/abnormal. [facility]2018-09-13 15:16:00 Test Item Value Reference Range Interpretation Comments A/G Ratio (test code = A/G Ratio) 1.2 1 0.7-1.6 [facility]2018-09-13 15:16:00 Test Item Value Reference Range Interpretation Comments Globulin (test code = Globulin) 3.3 2.7-4.2 [facility]2018-09-13 15:16:00 Test Item Value Reference Range Interpretation Comments B/C Ratio (test code = B/C Ratio) 16 1 6-25 [facility]2018-09-13 15:16:00 Test Item Value Reference Range Interpretation Comments AGAP (test code = AGAP) 12.0 10.0-20.0 [facility]2018-09-13 15:16:00 Test Item Value Reference Range Interpretation Comments eGFR (test code = eGFR) 83 [facility]2018-09-13 15:16:00 Test Item Value Reference Range Interpretation Comments Bili Total (test code = Bili Total) 0.5 0.2-1.3 [facility]2018-09-13 15:16:00 Test Item Value Reference Range Interpretation Comments Alk Phos (test code = Alk Phos) 82 39-136 [facility]2018-09-13 15:16:00 Test Item Value Reference Range Interpretation Comments ALT (test code = ALT) 28 See_Comment [Auto mated message] The system which ge nerated this result transmit yariel reference range : <=65. The reference range was not used to interpr et this result as anil l/abnormal. [facility]2018-09-13 15:16:00 Test Item Value Reference Range Interpretation Comments AST (test code = AST) 13 See_Comment [Auto mated message] The system which ge nerated this result transmit yariel reference range : <=37. The reference range was not used to interpr et this result as anil l/abnormal. [facility]2018-09-13 15:16:00 Test Item Value Reference Range Interpretation Comments Total Protein (test code = Total 7.1 6.4-8.4 Protein) [facility]2018-09-13 15:16:00 Test Item Value Reference Range Interpretation Comments Calcium Lvl (test code = Calcium Lvl) 9.6 8.5-10.5 [facility]2018-09-13 15:16:00 Test Item Value Reference Range Interpretation Comments CO2 (test code = CO2) 28 24-32 [facility]2018-09-13 15:16:00 Test Item Value Reference Range Interpretation Comments Potassium Lvl (test code = Potassium 4.0 3.5-5.1 Lvl) [facility]2018-09-13 15:16:00 Test Item Value Reference Range Interpretation Comments Chloride Lvl (test code = Chloride Lvl) 110 95-109 [facility]2018-09-13 15:16:00 Test Item Value Reference Range Interpretation Comments Sodium Lvl (test code = Sodium Lvl) 146 135-145 [facility]2018-09-13 15:16:00 Test Item Value Reference Range Interpretation Comments Creatinine Lvl (test code = Creatinine 0.79 0.50-1.40 Lvl) [facility]2018-09-13 15:16:00 Test Item Value Reference Range Interpretation Comments BUN (test code = BUN) 13 7-22 [facility]2018-09-13 15:16:00 Test Item Value Reference Range Interpretation Comments Glucose Lvl (test code = Glucose Lvl) 89 70-99 [facility]2018-09-13 15:16:00 Test Item Value Reference Range Interpretation Comments Albumin Lvl (test code = Albumin Lvl) 3.8 3.5-5.0 [facility]2018-09-13 15:16:00 Test Item Value Reference Range Interpretation Comments Magnesium Lvl (test code = Magnesium 2.3 1.8-2.4 Lvl) [facility]2018-09-13 15:16:00 Test Item Value Reference Range Interpretation Comments Phosphorus (test code = Phosphorus) 3.7 2.5-4.5 [facility]NnarpbyPFQRKJWZFEIXG5636-29-18 15:16:00 Test Item Value Reference Range Interpretation Comments S Preg (test code = S Negative *NA*(04/15/18 Preg) 10:16 AM) [facility] AustinIgamdriMXIHVNSLQD7235-40-10 15:16:00 Test Item Value Reference Range Interpretation Comments WBC (test code = WBC) 4.9 3.7-10.4 [facility] AustinIfbcbzhGEIYQCLKVJ9060-59-63 15:16:00 Test Item Value Reference Range Interpretation Comments Hgb (test code = Hgb) 15.2 12.0-16.0 [facility] AustinHlizllwYHCLCDUGSN3235-83-46 15:16:00 Test Item Value Reference Range Interpretation Comments RBC (test code = RBC) 4.61 4.20-5.40 [facility] AustinFggacbzUCCNPPWINM8806-76-77 15:16:00 Test Item Value Reference Range Interpretation Comments MCHC (test code = MCHC) 33.6 32.0-36.0 [facility] AustinCttupgxBWZELQXYQD3767-89-18 15:16:00 Test Item Value Reference Range Interpretation Comments Hct (test code = Hct) 45.3 36.0-48.0 [facility] AustinYmjleenPCQFWVQQRV1980-52-50 15:16:00 Test Item Value Reference Range Interpretation Comments MCV (test code = MCV) 98.2 80.0-98.0 [facility] AustinZqiyuxnTJZWGKAFWP4558-56-84 15:16:00 Test Item Value Reference Range Interpretation Comments MCH (test code = MCH) 33.0 pg 27.0-31.0 [facility] AustinChxcjjpECXXYLOVRP5336-62-87 15:16:00 Test Item Value Reference Range Interpretation Comments MPV (test code = MPV) 8.8 7.4-10.4 [facility] AustinErfiuydDEMYZGCINO4932-82-91 15:16:00 Test Item Value Reference Range Interpretation Comments RDW (test code = RDW) 12.6 11.5-14.5 [facility] AustinIoeeywiPEYBMVDQTQ7215-95-06 15:16:00 Test Item Value Reference Range Interpretation Comments Platelet (test code = Platelet) 163 133-450 [facility] AustinMdjaewyBHSBMBWJRH3131-38-35 15:16:00 Test Item Value Reference Range Interpretation Comments Lymphocytes (test code = Lymphocytes) 39.1 20.0-40.0 [facility] AustinEiudemrFWHHHTQTBG0948-42-86 15:16:00 Test Item Value Reference Range Interpretation Comments Eosinophils (test code = 2.5 See_Comment [A utomated message] The Eosinophils) system which ge nerated this result tra nsmitted reference range : <=4.0. The reference r chasity was not used to int erpret this result as normal/abnormal . [facility] AustinJxtujafPMCOZCWXVY2457-55-31 15:16:00 Test Item Value Reference Range Interpretation Comments Segs (test code = Segs) 50.6 45.0-75.0 [facility] AustinNykfisgKMWMAIKATQ4751-25-14 15:16:00 Test Item Value Reference Range Interpretation Comments Lymphocytes # (test code = Lymphocytes 1.9 1.0-5.5 #) [facility] AustinRckejzoTDEVAZKIVK0999-47-38 15:16:00 Test Item Value Reference Range Interpretation Comments Neutrophils # (test code = Neutrophils 2.5 1.5-8.1 #) [facility] AustinAfytyezFBABRJPPPH4673-79-56 15:16:00 Test Item Value Reference Range Interpretation Comments Monocytes (test code = Monocytes) 7.1 2.0-12.0 [facility] BudaPkmsiopRDSQIUDZOQ0451-50-04 15:16:00 Test Item Value Reference Range Interpretation Comments Basophils (test code = 0.7 See_Comment [Aut omated message] The Basophils) system which ge nerated this result tra nsmitted reference range : <=1.0. The reference r chasity was not used to int erpret this result as normal/abnormal . [facility] BudaKveqojjDXZXLCUOUC9291-90-48 15:16:00 Test Item Value Reference Range Interpretation Comments Eosinophils # (test code 0.1 See_Comment [A utomated message] The = Eosinophils #) system whic h generated this result tra nsmitted reference range : <=0.5. The reference r chasity was not used to int erpret this result as normal/abnormal . [facility]evilleWzgeyjoIJBQSOYSTG9718-28-35 15:16:00 Test Item Value Reference Range Interpretation Comments Monocytes # (test code 0.3 See_Comment [Aut omated message] The = Monocytes #) system which generated this result tra nsmitted reference range : <=0.8. The reference r chasity was not used to int erpret this result as normal/abnormal . [facility] BudaAppFirstAC ALBANPV4053-22-57 15:16:00 Test Item Value Reference Range Interpretation Comments Total CK (test code = Total CK) 109 12-191 [facility]udaF[facility] [id number] 15:16:00 Test Item Value Reference Range Interpretation Comments proBNP (test code = 64 See_Comment [Automa yariel message] The proBNP) system which ge nerated this result tra nsmitted reference range : <=125. The reference r chasity was not used to int erpret this result as anil l/abnormal. [facility] [id number] 15:16:00 Test Item Value Reference Range Interpretation Comments A/G Ratio (test code = A/G Ratio) 1.2 1 0.7-1.6 [facility] [id number] 15:16:00 Test Item Value Reference Range Interpretation Comments Globulin (test code = Globulin) 3.3 2.7-4.2 [facility] [id number] 15:16:00 Test Item Value Reference Range Interpretation Comments B/C Ratio (test code = B/C Ratio) 16 1 6-25 [facility]2018-09-13 15:16:00 Test Item Value Reference Range Interpretation Comments AGAP (test code = AGAP) 12.0 10.0-20.0 [facility]2018-09-13 15:16:00 Test Item Value Reference Range Interpretation Comments eGFR (test code = eGFR) 83 [facility]2018-09-13 15:16:00 Test Item Value Reference Range Interpretation Comments Bili Total (test code = Bili Total) 0.5 0.2-1.3 [place] 191328-09-13 15:16:00 Test Item Value Reference Range Interpretation Comments Alk Phos (test code = Alk Phos) 82 39-136 [facility]2018-09-13 15:16:00 Test Item Value Reference Range Interpretation Comments ALT (test code = ALT) 28 See_Comment [Auto mated message] The system which ge nerated this result transmit yariel reference range : <=65. The reference range was not used to interpr et this result as anil l/abnormal. [facility]2018-09-13 15:16:00 Test Item Value Reference Range Interpretation Comments AST (test code = AST) 13 See_Comment [Auto mated message] The system which ge nerated this result transmit yariel reference range : <=37. The reference range was not used to interpr et this result as anil l/abnormal. [place] 191328-09-13 15:16:00 Test Item Value Reference Range Interpretation Comments Total Protein (test code = Total 7.1 6.4-8.4 Protein) [facility]2018-09-13 15:16:00 Test Item Value Reference Range Interpretation Comments Calcium Lvl (test code = Calcium Lvl) 9.6 8.5-10.5 [place] 191328-09-13 15:16:00 Test Item Value Reference Range Interpretation Comments CO2 (test code = CO2) 28 24-32 [facility]2018-09-13 15:16:00 Test Item Value Reference Range Interpretation Comments Potassium Lvl (test code = Potassium 4.0 3.5-5.1 Lvl) [facility]2018-09-13 15:16:00 Test Item Value Reference Range Interpretation Comments Chloride Lvl (test code = Chloride Lvl) 110 95-109 [facility]2018-09-13 15:16:00 Test Item Value Reference Range Interpretation Comments Sodium Lvl (test code = Sodium Lvl) 146 135-145 [facility]2018-09-13 15:16:00 Test Item Value Reference Range Interpretation Comments Creatinine Lvl (test code = Creatinine 0.79 0.50-1.40 Lvl) [facility]2018-09-13 15:16:00 Test Item Value Reference Range Interpretation Comments BUN (test code = BUN) 13 7-22 [facility]2018-09-13 15:16:00 Test Item Value Reference Range Interpretation Comments Glucose Lvl (test code = Glucose Lvl) 89 70-99 [facility]2018-09-13 15:16:00 Test Item Value Reference Range Interpretation Comments Albumin Lvl (test code = Albumin Lvl) 3.8 3.5-5.0 [facility]2018-09-13 15:16:00 Test Item Value Reference Range Interpretation Comments Magnesium Lvl (test code = Magnesium 2.3 1.8-2.4 Lvl) [facility]2018-09-13 15:16:00 Test Item Value Reference Range Interpretation Comments Phosphorus (test code = Phosphorus) 3.7 2.5-4.5 [place] 24601018-09-13 15:16:00 Test Item Value Reference Range Interpretation Comments S Preg (test code = S Negative *NA*(04/15/18 Preg) 10:16 AM) [facility] AustinOazfeanMMZGYPERUX2348-32-02 15:16:00 Test Item Value Reference Range Interpretation Comments WBC (test code = WBC) 4.9 3.7-10.4 [facility] AustinYhdyabkFGRIYRWRGX2413-20-50 15:16:00 Test Item Value Reference Range Interpretation Comments Hgb (test code = Hgb) 15.2 12.0-16.0 [facility] AustinAawyrsaWAJKACDPDP0675-20-71 15:16:00 Test Item Value Reference Range Interpretation Comments RBC (test code = RBC) 4.61 4.20-5.40 [facility] AustinRdjkbiqDFZBSNQHWO8463-36-45 15:16:00 Test Item Value Reference Range Interpretation Comments MCHC (test code = MCHC) 33.6 32.0-36.0 [facility] AustinKklwpviJVHYDJPLOC0947-71-19 15:16:00 Test Item Value Reference Range Interpretation Comments Hct (test code = Hct) 45.3 36.0-48.0 [facility] AustinGmiltibPTYWHAJORP4919-19-20 15:16:00 Test Item Value Reference Range Interpretation Comments MCV (test code = MCV) 98.2 80.0-98.0 [facility] AustinNedyiubSAQFHDVTYO4395-51-42 15:16:00 Test Item Value Reference Range Interpretation Comments MCH (test code = MCH) 33.0 pg 27.0-31.0 [facility] AustinIrmuuufBNLLJFSTUD3028-95-34 15:16:00 Test Item Value Reference Range Interpretation Comments MPV (test code = MPV) 8.8 7.4-10.4 [facility] AustinEfxpepeDKLEPZHSSI4030-25-72 15:16:00 Test Item Value Reference Range Interpretation Comments RDW (test code = RDW) 12.6 11.5-14.5 [facility] AustinDpsueqmBUANQEVYGE6784-67-87 15:16:00 Test Item Value Reference Range Interpretation Comments Platelet (test code = Platelet) 163 133-450 [facility] AustinIrfcvquIBIHRHPRDP9181-19-27 15:16:00 Test Item Value Reference Range Interpretation Comments Lymphocytes (test code = Lymphocytes) 39.1 20.0-40.0 [facility] AustinKglpptqSKQTVJLFGR3964-60-32 15:16:00 Test Item Value Reference Range Interpretation Comments Eosinophils (test code = 2.5 See_Comment [A utomated message] The Eosinophils) system which ge nerated this result tra nsmitted reference range : <=4.0. The reference r chasity was not used to int erpret this result as normal/abnormal . [facility] AustinDwbrwntVFGJXRNWVJ5114-48-38 15:16:00 Test Item Value Reference Range Interpretation Comments Segs (test code = Segs) 50.6 45.0-75.0 [facility] AustinRtbzslgSLDMGWHFFW0807-95-95 15:16:00 Test Item Value Reference Range Interpretation Comments Lymphocytes # (test code = Lymphocytes 1.9 1.0-5.5 #) [facility] AustinWnmdvnwYWNHSLYHJW7230-72-15 15:16:00 Test Item Value Reference Range Interpretation Comments Neutrophils # (test code = Neutrophils 2.5 1.5-8.1 #) [facility]BqhhzkeBUWFTNQXTY4365-52-80 15:16:00 Test Item Value Reference Range Interpretation Comments Monocytes (test code = Monocytes) 7.1 2.0-12.0 [facility] AustinAtgteutDYPNHFGCMA3076-81-47 15:16:00 Test Item Value Reference Range Interpretation Comments Basophils (test code = 0.7 See_Comment [Aut omated message] The Basophils) system which ge nerated this result tra nsmitted reference range : <=1.0. The reference r chasity was not used to int erpret this result as normal/abnormal . [facility] AustinCszecszRHPQLYYYRH2385-90-81 15:16:00 Test Item Value Reference Range Interpretation Comments Eosinophils # (test code 0.1 See_Comment [A utomated message] The = Eosinophils #) system whic h generated this result tra nsmitted reference range : <=0.5. The reference r chasity was not used to int erpret this result as normal/abnormal . [facility] AustinXarmbqkPBHGUOSBML2781-68-75 15:16:00 Test Item Value Reference Range Interpretation Comments Monocytes # (test code 0.3 See_Comment [Aut omated message] The = Monocytes #) system which generated this result tra nsmitted reference range : <=0.8. The reference r chasity was not used to int erpret this result as normal/abnormal . [facility] [employer] UVRHKAE0868-13-76 18:17:00 Test Item Value Reference Range Interpretation Comments Troponin-I (test code no gt See_Comment [Auto mated message] The = Troponin-I) system which g enerated this result transmit yariel reference range : <=0.40. The reference r chasity was not used to interpr et this result as anil l/abnormal. [facility] DIKJAUY0060-56-25 18:17:00 Test Item Value Reference Range Interpretation Comments Troponin-I (test code no gt See_Comment [Auto mated message] The = Troponin-I) system which g enerated this result transmit yariel reference range : <=0.40. The reference r chasity was not used to interpr et this result as anil l/abnormal. [facility] BudaKinteraDIDRH4880-83-44 12:22:00 Test Item Value Reference Range Interpretation Comments Albumin Lvl (test code = Albumin Lvl) 3.2 3.5-5.0 [facility]2018-05-14 12:22:00 Test Item Value Reference Range Interpretation Comments Total Protein (test code = Total 6.3 6.4-8.4 Protein) [facility]2018-05-14 12:22:00 Test Item Value Reference Range Interpretation Comments CO2 (test code = CO2) 23 24-32 [facility]2018-05-14 12:22:00 Test Item Value Reference Range Interpretation Comments Calcium Lvl (test code = Calcium Lvl) 8.9 8.5-10.5 [facility]2018-05-14 12:22:00 Test Item Value Reference Range Interpretation Comments A/G Ratio (test code = A/G Ratio) 1.0 1 0.7-1.6 [place] 191328-05-14 12:22:00 Test Item Value Reference Range Interpretation Comments AGAP (test code = AGAP) 14.1 10.0-20.0 [facility]2018-05-14 12:22:00 Test Item Value Reference Range Interpretation Comments B/C Ratio (test code = B/C Ratio) 22 1 6-25 [place] 191328-05-14 12:22:00 Test Item Value Reference Range Interpretation Comments Bili Total (test code = Bili Total) 0.2 0.2-1.3 [facility]2018-05-14 12:22:00 Test Item Value Reference Range Interpretation Comments Sodium Lvl (test code = Sodium Lvl) 143 135-145 [facility]2018-05-14 12:22:00 Test Item Value Reference Range Interpretation Comments Chloride Lvl (test code = Chloride Lvl) 110 95-109 [facility]2018-05-14 12:22:00 Test Item Value Reference Range Interpretation Comments Potassium Lvl (test code = Potassium 4.1 3.5-5.1 Lvl) [facility]2018-05-14 12:22:00 Test Item Value Reference Range Interpretation Comments Creatinine Lvl (test code = Creatinine 0.76 0.50-1.40 Lvl) [facility]2018-05-14 12:22:00 Test Item Value Reference Range Interpretation Comments BUN (test code = BUN) 17 7-22 [facility]2018-05-14 12:22:00 Test Item Value Reference Range Interpretation Comments Glucose Lvl (test code = Glucose Lvl) 101 70-99 [facility] AustinDiqoagcVSPQIHIHLO7215-18-74 12:22:00 Test Item Value Reference Range Interpretation Comments Monocytes # (test code 0.4 See_Comment [Aut omated message] The = Monocytes #) system which generated this result tra nsmitted reference range : <=0.8. The reference r chasity was not used to int erpret this result as normal/abnormal . [facility] AustinZrtnlkmLVGESOVDKS0938-27-59 12:22:00 Test Item Value Reference Range Interpretation Comments Eosinophils # (test code 0.1 See_Comment [A utomated message] The = Eosinophils #) system whic h generated this result tra nsmitted reference range : <=0.5. The reference r chasity was not used to int erpret this result as normal/abnormal . [facility] AustinJxtordaZZGVCFNOME5355-14-08 12:22:00 Test Item Value Reference Range Interpretation Comments Segs (test code = Segs) 48.7 45.0-75.0 [facility] AustinLeakmuiKNYKZHYBMU4421-74-99 12:22:00 Test Item Value Reference Range Interpretation Comments Lymphocytes (test code = Lymphocytes) 39.8 20.0-40.0 [facility] AustinBsuenxmMTEGCMKTXX2080-09-35 12:22:00 Test Item Value Reference Range Interpretation Comments Monocytes (test code = Monocytes) 8.3 2.0-12.0 [facility] AustinDbbysopTJCCOVUATN1835-03-55 12:22:00 Test Item Value Reference Range Interpretation Comments Eosinophils (test code = 2.7 See_Comment [A utomated message] The Eosinophils) system which ge nerated this result tra nsmitted reference range : <=4.0. The reference r chasity was not used to int erpret this result as normal/abnormal . [facility] AustinUcptsjqYHYRTIBWLA1659-53-25 12:22:00 Test Item Value Reference Range Interpretation Comments Lymphocytes # (test code = Lymphocytes 2.0 1.0-5.5 #) [facility] AustinZbnmjypUINNGZTNJY8360-77-47 12:22:00 Test Item Value Reference Range Interpretation Comments Basophils (test code = 0.5 See_Comment [Aut omated message] The Basophils) system which ge nerated this result tra nsmitted reference range : <=1.0. The reference r chasity was not used to int erpret this result as normal/abnormal . [facility] AustinKniephyXRUOBMEKQT8739-51-42 12:22:00 Test Item Value Reference Range Interpretation Comments Segs-Bands # (test code = Segs-Bands #) 2.5 1.5-8.1 [facility] AustinLwklwazKFPJJBEJYM6343-06-25 12:22:00 Test Item Value Reference Range Interpretation Comments MCHC (test code = MCHC) 33.5 32.0-36.0 [facility] AustinOuykrjcOULVKDXDWA8036-66-78 12:22:00 Test Item Value Reference Range Interpretation Comments MPV (test code = MPV) 9.2 7.4-10.4 [facility] AustinTcyluneEPKSJJVVMK4482-13-98 12:22:00 Test Item Value Reference Range Interpretation Comments Platelet (test code = Platelet) 133 133-450 [facility] AustinZemanzvFNKGFKJOCJ3341-26-80 12:22:00 Test Item Value Reference Range Interpretation Comments RDW (test code = RDW) 13.0 11.5-14.5 [facility] AustinBjrgnqvPWLAPJJIGD4534-18-94 12:22:00 Test Item Value Reference Range Interpretation Comments MCH (test code = MCH) 32.8 pg 27.0-31.0 [facility]NoxnzjuQDWBLATRBJ2902-49-91 12:22:00 Test Item Value Reference Range Interpretation Comments Hct (test code = Hct) 43.1 36.0-48.0 [facility] AustinWfiqddhNKIPXUXIYT0521-82-00 12:22:00 Test Item Value Reference Range Interpretation Comments Hgb (test code = Hgb) 14.4 12.0-16.0 [facility] AustinPrlpgqrAILTGIDZJO4349-64-76 12:22:00 Test Item Value Reference Range Interpretation Comments MCV (test code = MCV) 97.9 80.0-98.0 [facility] AustinDxhtyxtNNKIIFZLGW0189-28-04 12:22:00 Test Item Value Reference Range Interpretation Comments RBC (test code = RBC) 4.40 4.20-5.40 [facility] HospitalKtrrkelDTCYLQBBTC0045-45-93 12:22:00 Test Item Value Reference Range Interpretation Comments WBC (test code = WBC) 5.1 3.7-10.4 [facility]ARD[facility] SGEQHHQ4122-04-07 12:22:00 Test Item Value Reference Range Interpretation Comments CK MB Index (test 2.7 1 See_Comment [Automate d message] The code = CK MB Index) system w [facility] generated this result transmit yariel reference range : <=2.5. The reference range was not used to interpr et this result as anil l/abnormal. [facility]2018-05-14 12:22:00 Test Item Value Reference Range Interpretation Comments Troponin-I (test code no gt See_Comment [Auto mated message] The = Troponin-I) system which g enerated this result transmit yariel reference range : <=0.40. The reference r chasity was not used to interpr et this result as anil l/abnormal. [facility]2018-05-14 12:22:00 Test Item Value Reference Range Interpretation Comments Total CK (test code = Total CK) 119 12-191 [facility] Sakti32018-05-14 12:22:00 Test Item Value Reference Range Interpretation Comments CK MB (test code = CK MB) 3.2 0.5-3.6 [facility]2018-05-14 12:22:00 Test Item Value Reference Range Interpretation Comments eGFR (test code = eGFR) 87 [facility]2018-05-14 12:22:00 Test Item Value Reference Range Interpretation Comments Globulin (test code = Globulin) 3.1 2.7-4.2 [facility]2018-05-14 12:22:00 Test Item Value Reference Range Interpretation Comments Alk Phos (test code = Alk Phos) 78 39-136 [facility]2018-05-14 12:22:00 Test Item Value Reference Range Interpretation Comments AST (test code = AST) 12 See_Comment [Auto mated message] The system which ge nerated this result transmit yariel reference range : <=37. The reference range was not used to interpr et this result as anil l/abnormal. [facility]2018-05-14 12:22:00 Test Item Value Reference Range Interpretation Comments ALT (test code = ALT) 24 See_Comment [Auto mated message] The system which ge nerated this result transmit yariel reference range : <=65. The reference range was not used to interpr et this result as anil l/abnormal. [facility]2018-05-14 12:22:00 Test Item Value Reference Range Interpretation Comments Albumin Lvl (test code = Albumin Lvl) 3.2 3.5-5.0 [facility]2018-05-14 12:22:00 Test Item Value Reference Range Interpretation Comments Total Protein (test code = Total 6.3 6.4-8.4 Protein) [facility]2018-05-14 12:22:00 Test Item Value Reference Range Interpretation Comments CO2 (test code = CO2) 23 24-32 [facility]2018-05-14 12:22:00 Test Item Value Reference Range Interpretation Comments Calcium Lvl (test code = Calcium Lvl) 8.9 8.5-10.5 [facility]2018-05-14 12:22:00 Test Item Value Reference Range Interpretation Comments A/G Ratio (test code = A/G Ratio) 1.0 1 0.7-1.6 [facility]2018-05-14 12:22:00 Test Item Value Reference Range Interpretation Comments AGAP (test code = AGAP) 14.1 10.0-20.0 [facility]2018-05-14 12:22:00 Test Item Value Reference Range Interpretation Comments B/C Ratio (test code = B/C Ratio) 22 1 6-25 [facility]2018-05-14 12:22:00 Test Item Value Reference Range Interpretation Comments Bili Total (test code = Bili Total) 0.2 0.2-1.3 [facility]2018-05-14 12:22:00 Test Item Value Reference Range Interpretation Comments Sodium Lvl (test code = Sodium Lvl) 143 135-145 [facility]2018-05-14 12:22:00 Test Item Value Reference Range Interpretation Comments Chloride Lvl (test code = Chloride Lvl) 110 95-109 [facility]2018-05-14 12:22:00 Test Item Value Reference Range Interpretation Comments Potassium Lvl (test code = Potassium 4.1 3.5-5.1 Lvl) [facility]2018-05-14 12:22:00 Test Item Value Reference Range Interpretation Comments Creatinine Lvl (test code = Creatinine 0.76 0.50-1.40 Lvl) [facility]2018-05-14 12:22:00 Test Item Value Reference Range Interpretation Comments BUN (test code = BUN) 17 7-22 [facility]2018-05-14 12:22:00 Test Item Value Reference Range Interpretation Comments Glucose Lvl (test code = Glucose Lvl) 101 70-99 [facility] AustinWjhyuncYINEFJGJEF4071-97-67 12:22:00 Test Item Value Reference Range Interpretation Comments Monocytes # (test code 0.4 See_Comment [Aut omated message] The = Monocytes #) system which generated this result tra nsmitted reference range : <=0.8. The reference r chasity was not used to int erpret this result as normal/abnormal . [facility] AustinPpumxsiECKNOVZIYE8162-35-21 12:22:00 Test Item Value Reference Range Interpretation Comments Eosinophils # (test code 0.1 See_Comment [A utomated message] The = Eosinophils #) system whic h generated this result tra nsmitted reference range : <=0.5. The reference r chasity was not used to int erpret this result as normal/abnormal . [facility] AustinTykdzdjLKEJSGJGXW3367-10-62 12:22:00 Test Item Value Reference Range Interpretation Comments Segs (test code = Segs) 48.7 45.0-75.0 [facility] AustinXoagmlqRJOYFLURVC5145-23-10 12:22:00 Test Item Value Reference Range Interpretation Comments Lymphocytes (test code = Lymphocytes) 39.8 20.0-40.0 [facility] AustinCfhyygbWGXQTUGIOS5300-21-90 12:22:00 Test Item Value Reference Range Interpretation Comments Monocytes (test code = Monocytes) 8.3 2.0-12.0 [facility] AustinQuaqphaLTPBNVANWS8704-27-48 12:22:00 Test Item Value Reference Range Interpretation Comments Eosinophils (test code = 2.7 See_Comment [A utomated message] The Eosinophils) system which ge nerated this result tra nsmitted reference range : <=4.0. The reference r chasity was not used to int erpret this result as normal/abnormal . [facility] AustinUoijkabBGCLSZLURK3519-07-79 12:22:00 Test Item Value Reference Range Interpretation Comments Lymphocytes # (test code = Lymphocytes 2.0 1.0-5.5 #) [facility] AustinUmoczibGWVJFIMBEQ2732-35-66 12:22:00 Test Item Value Reference Range Interpretation Comments Basophils (test code = 0.5 See_Comment [Aut omated message] The Basophils) system which ge nerated this result tra nsmitted reference range : <=1.0. The reference r chasity was not used to int erpret this result as normal/abnormal . [facility] AustinZhjtpopINZDWCDLLC2784-92-68 12:22:00 Test Item Value Reference Range Interpretation Comments Segs-Bands # (test code = Segs-Bands #) 2.5 1.5-8.1 [facility] AustinMqouiezAEARAWLLQH9250-24-18 12:22:00 Test Item Value Reference Range Interpretation Comments MCHC (test code = MCHC) 33.5 32.0-36.0 [facility] AustinPsqgzbzEGZDRVHIUS9495-62-27 12:22:00 Test Item Value Reference Range Interpretation Comments MPV (test code = MPV) 9.2 7.4-10.4 [facility] AustinYtwlwkcSPJTHYNNGI7191-50-61 12:22:00 Test Item Value Reference Range Interpretation Comments Platelet (test code = Platelet) 133 133-450 [facility] AustinOmzmzkiDIQFJKBJGR6582-08-11 12:22:00 Test Item Value Reference Range Interpretation Comments RDW (test code = RDW) 13.0 11.5-14.5 [facility] AustinRheecekBTAUKIBPSM3655-71-60 12:22:00 Test Item Value Reference Range Interpretation Comments MCH (test code = MCH) 32.8 pg 27.0-31.0 [facility] AustinFiklvpkWDCSEUEFQV6996-75-13 12:22:00 Test Item Value Reference Range Interpretation Comments Hct (test code = Hct) 43.1 36.0-48.0 [facility] AustinElwihoqTXIMGFUTAQ5123-64-02 12:22:00 Test Item Value Reference Range Interpretation Comments Hgb (test code = Hgb) 14.4 12.0-16.0 [facility] AustinSrjovegOAIPUPZTNA0782-02-29 12:22:00 Test Item Value Reference Range Interpretation Comments MCV (test code = MCV) 97.9 80.0-98.0 [facility] AustinSqzmpetUKGJKYQEGE7275-65-84 12:22:00 Test Item Value Reference Range Interpretation Comments RBC (test code = RBC) 4.40 4.20-5.40 [facility] AustinAxfqorfOIUXUIVTHM7748-04-50 12:22:00 Test Item Value Reference Range Interpretation Comments WBC (test code = WBC) 5.1 3.7-10.4 [facility]32018-05-14 12:22:00 Test Item Value Reference Range Interpretation Comments CK MB Index (test 2.7 1 See_Comment [Automate d message] The code = CK MB Index) system w [facility] generated this result transmit yariel reference range : <=2.5. The reference range was not used to interpr et this result as anil l/abnormal. [facility]32018-05-14 12:22:00 Test Item Value Reference Range Interpretation Comments Troponin-I (test code no gt See_Comment [Auto mated message] The = Troponin-I) system which g enerated this result transmit yariel reference range : <=0.40. The reference r chasity was not used to interpr et this result as anil l/abnormal. [facility] Sakti32018-05-14 12:22:00 Test Item Value Reference Range Interpretation Comments Total CK (test code = Total CK) 119 12-191 [facility] Sakti32018-05-14 12:22:00 Test Item Value Reference Range Interpretation Comments CK MB (test code = CK MB) 3.2 0.5-3.6 [facility]2018-05-14 12:22:00 Test Item Value Reference Range Interpretation Comments eGFR (test code = eGFR) 87 [facility]2018-05-14 12:22:00 Test Item Value Reference Range Interpretation Comments Globulin (test code = Globulin) 3.1 2.7-4.2 [facility]2018-05-14 12:22:00 Test Item Value Reference Range Interpretation Comments Alk Phos (test code = Alk Phos) 78 39-136 [facility]2018-05-14 12:22:00 Test Item Value Reference Range Interpretation Comments AST (test code = AST) 12 See_Comment [Auto mated message] The system which ge nerated this result transmit yariel reference range : <=37. The reference range was not used to interpr et this result as anil l/abnormal. [facility]2018-05-14 12:22:00 Test Item Value Reference Range Interpretation Comments ALT (test code = ALT) 24 See_Comment [Auto mated message] The system which ge nerated this result transmit yariel reference range : <=65. The reference range was not used to interpr et this result as anil l/abnormal. [facility]
--- NOTE | 2022-09-16 14:27 | RAD REPORT ---
EXAM DESCRIPTION: CT - Ct Stroke Brain Wo Cont - 09/16/2022 2:21 pm CLINICAL HISTORY: STROKE ALERT Headache, drowsiness, CVA COMPARISON: Head Brain Wo Cont dated 03/13/2022; Head Brain Wo Cont dated 10/18/2019 TECHNIQUE: All CT scans are performed using dose optimization technique as appropriate and may inclu de automated exposure control or mA/KV adjustment according to patient size. FINDINGS: No intracranial hemorrhage, hydrocephalus or extra-axial fluid collection.No areas of brai n edema or evidence of midline shift. The paranasal sinuses and mastoids are clear. The calvarium is intact. IMPRESSION: No acute intracranial abnormality. The findings were discussed with Dr. Menedz in the ER On 09-16-22 at 2:23 p.m. by telephone.
[2022-09-16] MEDS ORDERED: LORazepam 2 MG/ML VIAL ONE ×2 (14:34→15:08)
[2022-09-16] MEDS ORDERED: NA CHLORIDE 0.9% 1,000 ML ONE (14:58)
--- NOTE | 2022-09-16 15:54 | RAD REPORT ---
EXAM DESCRIPTION: MRI - Brain Wo Cont - 09/16/2022 3:47 pm CLINICAL HISTORY: WEAKNESS Headache, drowsiness COMPARISON: Ct Stroke Brain Wo Cont dated 09/16/2022 TECHNIQUE: Multi-sequence, multiplanar MR imaging of the brain was performed without contrast. FINDINGS: A mild motion degraded examination is submitted. No gross intracranial hemorrhage, hydrocephalus or extra-axial fluid collections. No edema or shift o f midline structures. No findings to suspect brain mass. DWI is negative for acute CVA. Midline structures are normally formed. Mastoid air cells and paranasal sinuses are clear. IMPRESSION: Negative for acute CVA or other acute intracranial abnormality.
--- NOTE | 2022-09-16 15:58 | RAD REPORT ---
EXAM DESCRIPTION: MRI - Lumbar Spine Meliton [facility]- 09/16/2022 3:47 pm CLINICAL HISTORY: WEAKNESS Back pain, radiculopathy COMPARISON: Chest Single View dated 01/21/2020 FINDINGS: Vertebral body heights are within normal limits. No aggressive marrow pattern is observed. No fracture is suspected. The conus medullaris terminates at a normal level. No thickening of the cauda equina or clumping of n erve roots seen. L1-2 level: No significant findings. L2-3 level: Mild posterior disc bulge. L3-4 level: Mild to moderate posterior disc bulge. L4-5 level: Degenerative disc disease with moderate posterior disc bulge. L5-S1 level: Mild posterior disc bulge. No severe canal stenosis seen. IMPRESSION: Mild to moderate lower lumbar spondylosis.
[2022-09-16 16:26] LABS: Absolute Lymphocytes (CBC) 1.9 K/uL (0.7-4.9); Hematocrit 46.6 % (36.0-45.0); Lymphocytes % 34.7 % (15.3-44.8); MCV 99.5 fL (80-100); MPV 8.5 fL (7.6-11.3); RBC Red Blood Cell Count 4.69 M/uL (3.86-4.86)
[2022-09-16 16:32] LABS: Protime INR 0.85
[2022-09-16 16:48] LABS: Troponin High Sensitivity 6.8 pg/mL (<58.9)
[2022-09-16 16:49] LABS: Potassium 4.2 mmol/L (3.5-5.1)
--- NOTE | 2022-09-16 17:05 | RAD REPORT ---
EXAM DESCRIPTION: RAD - Chest Single View - 09/16/2022 5:00 pm CLINICAL HISTORY: weakness Chest pain. COMPARISON: Chest Single View dated 04/10/2022; Chest Single View dated 01/21/2020; Chest Single View d ated 10/18/2019; Chest Pa And Lat (2 Views) dated 10/16/2019 FINDINGS: Portable technique limits examination quality. The lungs are grossly clear. The heart is normal in size. No displaced fractures. IMPRESSION: No acute intrathoracic process suspected.
[2022-09-16 17:09] LABS: SARS-COV-2 RT PCR NEGATIVE (NEGATIVE)
[2022-09-16] MEDS ORDERED: MAGNESIUM SULFATE 1 gm IVPB 1 GM/100 ML BAG IV ONE (17:13)
[2022-09-16 17:14] LABS: Urine Blood Negative (Negative); Urine Glucose Negative (Negative); Urine Protein Negative (Negative)
[2022-09-16] MEDS ORDERED: dexAMETHasone 10 MG/ML VIAL ONE (17:52)
--- NOTE | 2022-09-16 18:42 | ER ---
Nurse's Notes [facility] Name: Rhona Ladd Age: 62 yrs Sex: Female : 1960 Arrival Date: 09/16/2022 Time: 13:56 Bed 25 Private MD: Diagnosis: Muscle weakness (generalized);Muscle spasm;Other intervertebral disc degeneration, lumbosacral region;Radiculopathy, lumbosacral region Presentation: 09/16 14:11 Chief complaint: EMS states: Pt had physical therapy yesterday with leg weights, today jl7 at 1210 stood up but legs wont move. Coronavirus screen: Vaccine status: Patient reports receiving the 2nd dose of the covid vaccine. At this time, the client does not indicate any symptoms associated with coronavirus-19. Ebola Screen: No symptoms or risks identified at this time. Initial Sepsis Screen: Does the patient meet any 2 criteria? No. Patient's initial sepsis screen is negative. Does the patient have a suspected source of infection? No. Patient's initial sepsis screen is negative. Risk Assessment: Do you want to hurt yourself or someone else? Patient reports no desire to harm self or others. Onset of symptoms was September 16, 2022 at 12:10. 14:11 Method Of Arrival: EMS: [facility] 14:11 Acuity: CHON 3 jl7 Triage Assessment: 14:13 General: Appears in no apparent distress. uncomfortable, Behavior is calm, cooperative, jl7 appropriate for age. Pain: Denies pain. Historical: - Allergies: 14:13 Bactrim; jl7 14:13 Morphine; jl7 14:13 Soma; jl7 - PMHx: 14:13 Asthma; Hypertension; jl7 - PSHx: 14:13 Appendectomy; section; Cholecystectomy; jl7 - Immunization history:: Client reports receiving the 2nd dose of the Covid vaccine. - Social history:: Smoking status: Patient denies any tobacco usage or history of. - Family history:: not pertinent. - Hospitalizations: : No recent hospitalization is reported. Screenin:15 [facility] ED Fall Risk Assessment (Adult) History of falling in the last 3 months, bp including since admission No falls in past 3 months (0 pts). Abuse screen: Denies threats or abuse. Denies injuries from another. Nutritional screening: No deficits noted. Tuberculosis screening: No symptoms or risk factors identified. Assessment: 14:13 Reassessment: Pt to MRI via stretcher. jl7 16:15 Reassessment: PT RETURNED FROM MRI. PER RAD, MRI NON-DIAGNOSTIC 2/2 PT "TWITCHING." PT bp NOW MOVING ALL EXTREMITIES WITH FULL MOTION, BUT STATES NEEDS MEDICINE FOR "CRAMPS". NO OBJECTIVE FINDINGS NOTED, PT VS STABLE, FALLS ASLEEP WHEN NOT BEING INTERACTED WITH. 17:28 Reassessment: Patient appears in no apparent distress at this time. Patient and/or bp family updated on plan of care and expected duration. Pain level reassessed. 19:03 Reassessment: PT DC VIA WC WITH FAMILY. bp Vital Signs: 14:11 BP 153 / 97; Pulse 68; Resp 17; Temp 97.6; Pulse Ox 95% ; Weight 88.9 kg; Height 5 ft. jl7 9 in. (175.26 cm); Pain 0/10; 16:15 BP 140 / 87; Pulse 75; Resp 16; Pulse Ox 97% ; bp 17:28 BP 140 / 78; Pulse 63; Resp 17; Pulse Ox 98% ; bp 19:03 BP 155 / 106; Pulse 65; Resp 16; Pulse Ox 96% ; bp 14:11 Body Mass Index 28.94 (88.90 kg, 175.26 cm) jl7 ED Course: 13:56 Patient arrived in ED. rn 13:57 Oscar Mendez MD is Attending Physician. rn 14:13 Triage completed. jl7 14:13 Arm band placed on right wrist. jl7 14:23 Perico Ceja, RN is Primary Nurse. bp 15:33 MRI Lumbar Spine wo Con Sent. bp 15:33 MRI - Brain Wo Cont Sent. bp 16:15 Patient has correct armband on for positive identification. Bed in low position. Call bp light in reach. Side rails up X2. Adult w/ patient. 16:15 Maintain EMS IV. Dressing intact. Good blood return noted. Site clean \\T\\ dry. Gauge \\T\\ bp site: 22 GA R WRIST. 17:17 Urine collected: clean catch specimen, clear. tm3 17:18 EKG done, by ED staff. tm3 19:04 No provider procedures requiring assistance completed. IV discontinued, intact, bp bleeding controlled, No redness/swelling at site. Pressure dressing applied. Administered Medications: 14:30 Drug: Ativan (LORazepam) 0.5 mg Route: IVP; Site: right forearm; bp 16:32 Follow up: Response: No adverse reaction bp 15:10 Drug: Ativan (LORazepam) 0.5 mg Route: IVP; Site: right wrist; jl7 16:32 Follow up: Response: No adverse reaction bp 16:15 Drug: NS 0.9% 1000 ml Route: IV; Rate: 1000 ml; Site: right forearm; bp 19:05 Follow up: IV Status: Completed infusion; IV Intake: 1000ml bp 17:00 Drug: Magnesium Sulfate 1 grams Route: IVPB; Infused Over: 1 hrs; Site: right wrist; bp 19:04 Follow up: IV Status: Completed infusion; IV Intake: 100ml bp 17:47 Drug: Decadron - Dexamethasone 10 mg Route: IVP; Site: right wrist; bp 19:04 Follow up: Response: No adverse reaction bp Intake: 19:04 IV: 100ml; Total: 100ml. bp 19:05 IV: 1000ml; Total: 1100ml. bp Outcome: 18:41 Discharge ordered by . rn 19:04 Discharged to home via wheelchair, with family. bp 19:04 Condition: stable 19:04 Discharge instructions given to patient, family, Instructed on discharge instructions, follow up and referral plans. medication usage, Demonstrated understanding of instructions, follow-up care, medications, Prescriptions given X 1. 19:05 Patient left the ED. bp Signatures: Les Sorensen tm3 Oscar Mendez MD MD rn Leal, Jahala, RN RN jl7 Perico Ceja RN RN bp Corrections: (The following items were deleted from the chart) 16:27 16:15 Pulse 75bpm; Resp 16bpm; Pulse Ox 97%; bp bp
--- NOTE | 2022-09-16 18:43 | EDPHYS ---
Physician Documentation [facility] Name: Rhona Ladd Age: 62 yrs Sex: Female : 1960 Arrival Date: 09/16/2022 Time: 13:56 Bed 25 Private MD: ED Physician Oscar Mendez HPI: 09/16 15:29 This 62 yrs old Female presents to ER via EMS with complaints of weakness of both legs. rn 15:29 The patient's problem is reported as weakness, in the right lower extremity, in the rn left lower extremity. Onset: The symptoms/episode began/occurred today. Duration: The episode is continuous. Context: occurred at home. The symptoms are alleviated by nothing. The symptoms are aggravated by nothing. Severity of symptoms: At their worst the symptoms were severe in the emergency department the symptoms are unchanged. The patient has not experienced similar symptoms in the past. The patient has not recently seen a physician. Pt reports weakness of both legs, happened a few hours prior to arrival, woke up feeling fine, was doing physical therapy yesterday with weight lifting, tried to stand and legs gave out. No facial weakness, no arm weakness. Reports cramps in legs but this has never happened to where she has difficulty moving legs. Both legs are equally weak. No trauma. No back pain. NO hx of neuromuscular problems. No medication changes. NO hx of electrolyte disturbances. . Historical: - Allergies: 14:13 Bactrim; jl7 14:13 Morphine; jl7 14:13 Soma; jl7 - PMHx: 14:13 Asthma; Hypertension; jl7 - PSHx: 14:13 Appendectomy; section; Cholecystectomy; jl7 - Immunization history:: Client reports receiving the 2nd dose of the Covid vaccine. - Social history:: Smoking status: Patient denies any tobacco usage or history of. - Family history:: not pertinent. - Hospitalizations: : No recent hospitalization is reported. ROS: 15:29 Constitutional: Negative for fever, chills, and weight loss, Eyes: Negative for injury, rn pain, redness, and discharge, Neck: Negative for injury, pain, and swelling, Cardiovascular: Negative for chest pain, palpitations, and edema, Respiratory: Negative for shortness of breath, cough, wheezing, and pleuritic chest pain, Abdomen/GI: Negative for abdominal pain, nausea, vomiting, diarrhea, and constipation, Back: Negative for injury and pain, : Negative for injury, bleeding, discharge, and swelling. Negative for bowel/bladder problems. MS/Extremity: Negative for injury and deformity, Skin: Negative for injury, rash, and discoloration, Neuro: Negative for headache, numbness, tingling, and seizure Exam: 15:29 Constitutional: This is a well developed, well nourished patient who is awake, alert, rn anxious Head/Face: Normocephalic, atraumatic. Neck: No cervical tenderness Cardiovascular: Regular rate and rhythm. No pulse deficits. Respiratory: No increased work of breathing, no retractions or nasal flaring. Abdomen/GI: Soft, non-tender Back: No spinal tenderness. No costovertebral tenderness. Full range of motion. Skin: Warm, dry with normal turgor. Normal color with no rashes, no lesions, and no evidence of cellulitis. MS/ Extremity: Pulses equal, no cyanosis. Pulses equal. No skin changes. Able to wiggle toes. Neuro: Awake and alert, GCS 15, oriented to person, place, time, and situation. Cranial nerves II-XII grossly intact. Sensory grossly intact. Unable to lift legs off bed. Able to wiggle toes. 17:54 ECG was reviewed by the Attending Physician. rn Vital Signs: 14:11 BP 153 / 97; Pulse 68; Resp 17; Temp 97.6; Pulse Ox 95% ; Weight 88.9 kg; Height 5 ft. jl7 9 in. (175.26 cm); Pain 0/10; 16:15 BP 140 / 87; Pulse 75; Resp 16; Pulse Ox 97% ; bp 17:28 BP 140 / 78; Pulse 63; Resp 17; Pulse Ox 98% ; bp 19:03 BP 155 / 106; Pulse 65; Resp 16; Pulse Ox 96% ; bp 14:11 Body Mass Index 28.94 (88.90 kg, 175.26 cm) jl7 MDM: 13:57 Patient medically screened. rn 16:00 ED course: UNable to obtain good images on MRI due to "leg cramps", despite 2 doses of rn ativan. Pt in room again, unsure if images will be diagnostic. Pt is able to move legs more now, even has feet crossed and shaking them back and forth.. 18:22 Differential diagnosis: CVA, TIA, metabolic disorder, drug effects, spinal stenosis, rn radiculopathy, disc disorders, electrolytes disorder, muscle spasm, overuse. Data reviewed: vital signs, nurses notes, lab test result(s), radiologic studies, CT scan, MRI, and as a result, I will discharge patient. Counseling: I had a detailed discussion with the patient and/or guardian regarding: the historical points, exam findings, and any diagnostic results supporting the discharge/admit diagnosis, lab results, radiology results, the need for outpatient follow up, to return to the emergency department if symptoms worsen or persist or if there are any questions or concerns that arise at home. Response to treatment: the patient's symptoms have markedly improved after treatment, and as a result, I will discharge patient. Special discussion: I discussed with the patient/guardian in detail that at this point there is no indication for admission to the hospital. It is understood, however, that if the symptoms persist or worsen the patient needs to return immediately for re-evaluation. Based on the history and exam findings, there is no indication for further emergent testing or inpatient evaluation. I discussed with the patient/guardian the need to see the back specialist for further evaluation of the symptoms. I discussed with the patient/guardian the need to see the primary care provider for further evaluation of the symptoms. ED course: MRI of brain and lumbar spine without emergent findings, shows lumbosacral disc disease without cord compression. Pt able to move legs, legs crossed in room, will dc home with return precautions and explained everything to family and patient. . 09/16 13:59 Order name: Basic Metabolic Panel rn 09/16 13:59 Order name: CBC with Diff rn 09/16 13:59 Order name: High Sensitivity Troponin rn 09/16 13:59 Order name: Protime (+inr) rn 09/16 13:59 Order name: Ptt, Activated rn 09/16 13:59 Order name: COVID-19/FLU A+B rn 09/16 13:59 Order name: CT Stroke Brain w/o Contrast rn 09/16 16:28 Order name: CBC with Automated Diff; Complete Time: 16:44 EDMS 09/16 16:32 Order name: Protime (+INR); Complete Time: 16:44 EDMS 09/16 16:32 Order name: PTT, Activated Partial Thromb; Complete Time: 16:44 EDMS 0214 16:48 Order name: Basic Metabolic Panel; Complete Time: 17:34 EDMS 14 16:48 Order name: Troponin High Sensitivity; Complete Time: 17:34 EDMS 09/16 17:10 Order name: COVID-19/FLU A+B; Complete Time: 17:34 EDMS 14 17:15 Order name: Urine Dipstick-Ancillary; Complete Time: 17:34 EDMS 09/16 13:59 Order name: Stroke CXR 1 View rn 09/16 13:59 Order name: EKG; Complete Time: 14:00 rn 09/16 13:59 Order name: Accucheck; Complete Time: 16:33 rn 09/16 13:59 Order name: Cardiac monitoring; Complete Time: 16:33 rn 09/16 13:59 Order name: EKG - Nurse/Tech; Complete Time: 16:33 rn 14 13:59 Order name: MRI Lumbar Spine wo Con rn 09/16 13:59 Order name: MRI - Brain Wo Cont rn 09/16 14:28 Order name: CT; Complete Time: 16:44 EDMS 14 15:54 Order name: MRI; Complete Time: 16:44 EDMS 14 15:59 Order name: MRI; Complete Time: 16:44 EDMS 14 17:05 Order name: RAD; Complete Time: 17:34 EDMS 09/16 13:59 Order name: IV Saline Lock; Complete Time: 16:33 rn 14 13:59 Order name: Labs collected and sent; Complete Time: 16:33 rn 09/16 13:59 Order name: NPO; Complete Time: 16:33 rn 09/16 13:59 Order name: O2 Per Protocol; Complete Time: 16:33 rn 09/16 13:59 Order name: O2 Sat Monitoring; Complete Time: 16:34 rn 14 13:59 Order name: Stroke Swallow Screen; Complete Time: 16:34 rn EC:54 Rate is 67 beats/min. Rhythm is regular. QRS [place] is Normal. MD interval is normal. QRS rn interval is normal. QT interval is normal. No Q waves. T waves are Normal. No ST changes noted. Clinical impression: Normal ECG. Interpreted by me. Reviewed by me. Administered Medications: 14:30 Drug: Ativan (LORazepam) 0.5 mg Route: IVP; Site: right forearm; bp 16:32 Follow up: Response: No adverse reaction bp 15:10 Drug: Ativan (LORazepam) 0.5 mg Route: IVP; Site: right wrist; jl7 16:32 Follow up: Response: No adverse reaction bp 16:15 Drug: NS 0.9% 1000 ml Route: IV; Rate: 1000 ml; Site: right forearm; bp 19:05 Follow up: IV Status: Completed infusion; IV Intake: 1000ml bp 17:00 Drug: Magnesium Sulfate 1 grams Route: IVPB; Infused Over: 1 hrs; Site: right wrist; bp 19:04 Follow up: IV Status: Completed infusion; IV Intake: 100ml bp 17:47 Drug: Decadron - Dexamethasone 10 mg Route: IVP; Site: right wrist; bp 19:04 Follow up: Response: No adverse reaction bp Disposition Summary: 09/16/22 18:41 Discharge Ordered Location: Home rn Problem: new rn Symptoms: have improved rn Condition: Stable rn Diagnosis - Muscle weakness (generalized) rn - Muscle spasm rn - Other intervertebral disc degeneration, lumbosacral region rn - Radiculopathy, lumbosacral region rn Followup: rn - With: Private Physician - When: As needed - Reason: Recheck today's complaints, Re-evaluation by your physician Discharge Instructions: - Discharge Summary Sheet rn - Lumbosacral Radiculopathy rn - Neuropathic Pain rn - Pinched Nerve rn - Weakness rn - Back Exercises rn Forms: - Medication Reconciliation Form rn - Thank You Letter rn - Antibiotic project intern - Prescription Opioid Use rn - Work release form bd Prescriptions: - Medrol (Romeo) 4 mg Oral Tablets, Dose Pack - take 1 tablet by ORAL route as directed - follow package instructions; 1 rn packet; Refills: 0, Product Selection Permitted Signatures: Dispatcher [employer] Oscar Penn MD MD rn Smirch, Shelby RN RN Iram Christianson RN RN jl7 Perico Ceja, RN RN bp
[2022-09-16 19:10] VITALS: TEMP 97.6
[2022-09-16 19:13] VITALS: BP 155/106; O2SAT 96
--- NOTE | 2022-09-17 12:59 | EKG ---
Test Date: 2022-09-16 Test Time: 16:30:50 Global Sourcing Manager: ZIYAD MEASUREMENT RESULTS: Intervals: Rate: 67 [place]: 154 QRSD: 86 QT: 398 QTc: 420 [place]: P: 59 NJ: 154 QRS: 16 T: 58 INTERPRETIVE STATEMENTS: Normal sinus rhythm Normal ECG Compared to ECG 09/16/2022 16:29:38 Atrial flutter no longer present Electronically Signed On 09-17-22 12:58:21 PULLMAN CAR CLERK by Wild Serra
== END 2022-09-16 19:05 | disposition home or self-care (01) ==
LOC: ER 13:43
DX: M62.81 Muscle weakness (generalized) (principal); M62.838 Other muscle spasm; M54.17 Radiculopathy, lumbosacral region; M51.37 Other intervertebral disc degeneration, lumbosacral region; I10 Essential (primary) hypertension; Z20.822 Contact with and (suspected) exposure to COVID-19; Z88.1 Allergy status to other antibiotic agents; Z88.5 Allergy status to narcotic agent
CPT/HCPCS: 85025; 80048; 36415; 85610; 85730; 81003; 84484; 0240U; 70450; 71045; 70551; 72148; J3475; J1100; J7030; 93005

== ENCOUNTER 2022-11-28 15:40 | Observation (INO) | payer BC ==
--- OUTSIDE RECORDS SUMMARY | 2022-11-28 16:00 | XMS REPORT | Continuity of Care Document ---
:1960 Author Organization [facility] t Address [address] [facility] [address] [place] [address] Care Team Providers Name Role Phone Villa Jun M Attending Clinician Unavailable Stoney Ya Attending Clinician Miguel Steel Attending Clinician Renea Kelly Attending Clinician JUN VILLA Admitting Clinician Unavailable Miguel Steel Admitting Clinician Renea Kelly Admitting Clinician Payers Payer Name Policy Type Policy Number Effective Date Expiration Date S alisha Blue Cross Blue 6 [id number] 2022 [facility] 00:00:00 [place] [address] [id number] [facility] Blue Cross Blue C1 [id number] 2019 [facility] 00:00:00 [facility] Problems Condition Condition Condition Status Onset Resolution Last Treating Co mments Source Name Details Category Date Date Treatment Clinician Date ACS ACS Diagnosis Active 2018-04-16 Mem oria Active 04-15 17:32:00 l 04/15/2018 00:00: Gallo pat[place] [address] [place] HIGH BLOOD HIGH Diagnosis Active 2018-04-15 Memoria PRESSURE BLOOD 04-15 11:24:00 l PRESSURE 00:00: [place] Active 00 04/15/2018 [facility] [place] CHEST PAIN CHEST Diagnosis Active 2017-12-18 Memoria PAIN 12-14 15:17:00 l Active 00:00: Johnson 12/14/2017 00 [facility] CARDAIC CARDAIC Diagnosis Active 2017-12-14 Memoria Active 12-14 09:29:00 l 12/14/2017 00:00: Gallo patel [address] CHRISTY CHRISTY Diagnosis Active 2017-12-14 Betzaidaoria BILLING BILLING 12-14 16:36:00 l Active 00:00: Johnson 12/14/2017 00 [facility] [id number] Body mass Problem Com mon index [facility] [BMI] [facility] 30.0-30.9, [facility] [id number] Other Problem Common obesity Spirit due to - CHI excess [facility] [id number] Tobacco Problem Commo n use Spirit disorder [facility] [id number] Moderate Problem Comm on persistent Spirit asthma - [facility] with [facility] [id number] Mixed Problem Common hyperlipid Spirit emia [facility] [id number] Tension Problem Commo n headache [facility] [id number] Essential Problem Comm on hypertensi Spirit on [facility] [id number] Vitamin D Problem Comm on deficiency [facility] disease [facility] [id number] Difficulty Problem Co mmon sleeping [facility] [id number] Contractur Problem Co mmon e of hand [facility] [id number] Other Problem Common chronic Spirit pain [facility] [id number] Incontinen Problem Com mon ce of Spirit feces, - CHI unspecifie [facility] [id number] Primary Problem Comm on osteoarthr Spirit itis of - CHI left knee [facility] [id number] Family Problem Common history of Spirit heart - CHI disease [facility] [id number] Anxiety Problem Commo n about Spirit health - CHI [facility] [id number] History of Problem Co mmon TB Spirit (tuberculo - CHI sis) [facility] [id number] Primary Problem Comm on osteoarthr Spirit itis of - CHI right knee 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 [id number] Chronic Problem Common obstructiv Spirit e - CHI pulmonary [facility] unspecifie Medica l d COPD Center type Epigastric Epigastri Problem 2018-11-03 Memoria pain c pain 13:22:34 l 11/03/2018 Gallo patel [facility] Essential Essential Problem 2018-11-03 Memoria (primary) (primary) 13:22:34 l hypertensi hypertensi He rmann on on 11/03/2018 [facility] Hyperosmol Hyperosmo Problem 2018-11-03 Memoria ality and lality and 13:22:34 l hypernatre hypernatre He rmann susi susi 11/03/2018 [facility] Other Other Problem 2018-11-03 Memor ia chest pain chest pain 13:22:34 l 11/03/2018 Gallo WALSH [place] Headache Headache Problem 2018-11-03 Memoria 11/03/2018 13:22:34 l Johnson [place] Nausea Nausea Problem 2018-11-03 Abdiel princess 11/03/2018 13:22:34 l Johnson [place] Pain in Pain in Problem 2018-11-03 Me moria left arm left arm 13:22:34 l 11/03/2018 Gallo patel [facility] Diverticul Diverticu Problem 2018-11-03 Memoria osis of losis of 13:22:34 l small small [place] intestine intestine without without perforatio perforatio n or n or abscess abscess without without bleeding bleeding 11/03/2018 [facility] Nicotine Nicotine Problem 2018-11-03 Memoria dependence dependence 13:22:34 l , , Johnson cigarettes cigarettes , , uncomplica uncomplica yariel yariel 11/03/2018 [facility] Family Family Problem 2018-11-03 Abdiel princess history of history of 13:22:34 l ischemic ischemic Gallo n heart heart disease disease and other and other diseases diseases 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 11/03/2018 [facility] Hypertensi Hypertens Problem Resolve 2021-07-04 Memoria ve osvaldo d 22:47:27 l disorder, disorder, Herm tiffany systemic systemic arterial arterial (disorder) (disorder) Resolved Problem 07/04/2021 [facility] Smoker Smoker Problem Resolve 2021-07-04 Mem oria (finding) (finding) d 22:47:27 l Resolved Johnson Problem 07/04/2021 [facility] Cervical Cervical Problem Active 2021-07-04 Memoria radiculopa radiculopa 22:47:27 l thy thy Johnson (disorder) (disorder) Active Problem 07/04/2021 [facility] Paresthesi Paresthes Problem Active 2021-07-04 Memoria a ia 22:47:27 l (finding) (finding) Herm tiffany Active Problem 07/04/2021 [facility] Spasm Spasm Problem Active 2021-07-04 Memor ia (finding) (finding) 22:47:27 l Active [place] Problem 07/04/2021 [facility] 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 Herm tiffany (disorder) (disorder) Active Problem 07/04/2021 [facility] Restless Restless Problem Active 2021-07-04 Memoria legs legs 22:47:27 l (disorder) (disorder) He janett Active Problem 07/04/2021 [facility] CHEST CHEST Diagnosis Active 2017-12-18 Mem oria PAIN, PAIN, 15:17:00 l UNSPECIFIE UNSPECIFIE He rmtiffany D D Active [facility] ACUTE ACUTE Diagnosis Active 2018-04-16 Mem oria ISCHEMIC ISCHEMIC 17:32:00 l HEART HEART [place] DISEASE, DISEASE, UNSPECIFIE UNSPECIFIE Active [facility] History of Past Illness Condition Condition Condition Status Onset Resolution Last Treating Co mments Source Name Details Category Date Date Treatment Clinician Date Jaw pain Jaw pain Problem 2017-2018-11-03 2018-11-03 Memoria 04/21/201804-21 13:22:34 13:22:34 l 11/03/2018 04:15: Gallo patel [address] [place] Allergies, Adverse Reactions, Alerts Allergy Allergy Status Severity Reaction(s) Onset Inactive Treating Comm ents Source Name Type Date Date Clinician morphine morphine Active Memori a l Johnson Soma Soma Active Memoria l Johnson Bactrim Bactrim Active Memoria l [place] Codeine Codeine Active Unknown [facility] carisopr carisopr Active Itch Common odol odol [facility] morphine morphine Active Itch [facility] sulfamet sulfamet Active Itch Common hoxazole [facility] trimetho trimetho [facility] Social History Social Habit Start Date Stop Date Quantity Comments Source History of Current Smoker Common Spi rit - Tobacco Use [facility] Sex Assigned At Common Sp choco - [facility] Social History 2013-08-19 2013-08-19 Cesar ryan 11:22:15 11:22:15 Smoking Status Start Date Stop Date Source Current Smoker 2022-09-09 00:00:00 [facility] Spiri t [facility] Former Smoker 2022-01-02 00:00:00 2022-01-02 00:00:00 [facility] S pirit [facility] Medications Ordered Filled Start Stop Current Ordering Indication Dosage Frequency Signature Comments Components Source Medication Medication Date Date Medication? Clinician (SIG) Name Name Bupivicaine Bupivicaine 0 No 2.5mg Common [place] 1-17 Spirit 00:00: - [facility] Kenalog Kenalog No 40mg Common (Triamcinol (Triamcinol 1-17 S pirit one) one) 00:00: - [facility] Bupivicaine Bupivicaine 0 No 2.5mg Common [place] 1-17 Spirit 00:00: - [facility] Kenalog Kenalog 2023-0 No 40mg Common (Triamcinol (Triamcinol 1-17 S pirit one) one) 00:00: - CHI 00 [facility] Bupivicaine Bupivicaine 0 No 2.5mg Common [place] 1-17 Spirit 00:00: - CHI 00 [facility] Kenalog Kenalog 0 No 40mg Common (Triamcinol (Triamcinol 1-17 S pirit one) one) 00:00: - CHI 00 [facility] Kenalog Kenalog 2021-08 No 40mg Common (Triamcinol (Triamcinol 2-08 S pirit one) one) 00:00: - CHI 00 [facility] Lidocaine Lidocaine 2021-08 No 10mg Com mon 2 Spirit 00:00: - CHI 00 [facility] Kenalog Kenalog 2021-08 No 40mg Common (Triamcinol (Triamcinol 2-08 S pirit one) one) 00:00: - CHI 00 [facility] Lidocaine Lidocaine 2021- No 10mg Com mon 2 Spirit 00:00: - CHI 00 [facility] Kenalog Kenalog 2021-08 No 40mg Common (Triamcinol (Triamcinol 2-08 S pirit one) one) 00:00: - CHI 00 [facility] Lidocaine Lidocaine 2021- No 10mg Com mon 2 Spirit 00:00: - CHI 00 [facility] Kenalog Kenalog 2021-08 No 40mg Common (Triamcinol (Triamcinol 2-08 S pirit one) one) 00:00: - CHI 00 [facility] Lidocaine Lidocaine 2021- No 10mg Com mon 2 Spirit 00:00: - CHI 00 [facility] Kenalog Kenalog 2021-08 No 40mg Common (Triamcinol (Triamcinol 2-08 S pirit one) one) 00:00: - CHI 00 [facility] Lidocaine Lidocaine 2021-1 No 10mg Com mon 2- Spirit 00:00: - CHI [facility] Kenalog Kenalog 2021- No 40mg Common (Triamcinol (Triamcinol 2-08 S pirit one) one) 00:00: - CHI 00 [facility] Lidocaine Lidocaine 2021-08 No 10mg Com mon 2-08 Spirit 00:00: - CHI 00 [facility] Fluticasone Fluticasone 2021-08- No 2{puffs BID Fluticason [...] pirit one) one) 00:00: - CHI 00 [facility] Bupivicaine Bupivicaine 2021-08 No 2.5mg Common [place] 0-25 Spirit 00:00: - CHI 00 [facility] Kenalog Kenalog 2021-08 No 40mg Common (Triamcinol (Triamcinol 0-25 S pirit one) one) 00:00: - CHI 00 [facility] Bupivicaine Bupivicaine 2021-08 No 2.5mg Common [place] 0-25 Spirit 00:00: - CHI 00 [facility] Edenilsonalog Kenalog 2021-08 No 40mg Common (Triamcinol (Triamcinol 0-25 S pirit one) one) 00:00: - CHI 00 [facility] Bupivicaine Bupivicaine 2021-08 No 2.5mg Common [place] 0-25 Spirit 00:00: - CHI 00 [facility] Dagoberto Kenalog 2021-08 No 40mg Common (Triamcinol (Triamcinol 0-25 S pirit one) one) 00:00: - CHI 00 [facility] Bupivicaine Bupivicaine 2021-08 No 2.5mg Common [place] 0-25 Spirit 00:00: - CHI 00 [facility] Dagoberto Kenalog 2021-08 No 40mg Common (Triamcinol (Triamcinol 0-25 S pirit one) one) 00:00: - CHI 00 [facility] Bupivicaine Bupivicaine 2021-08 No 2.5mg Common [place] 0-25 Spirit 00:00: - CHI 00 [facility] Dagoberto Kenalog 2021-08 No 40mg Common (Triamcinol (Triamcinol 0-25 S pirit one) one) 00:00: - CHI 00 [facility] Bupivicaine Bupivicaine 2021-08 No 2.5mg Common [place] 0-25 Spirit 00:00: - CHI 00 [facility] Kenalog Kenalog 2021-08 No 40mg Common (Triamcinol (Triamcinol 0-25 S pirit one) one) 00:00: - CHI 00 [facility] Bupivicaine Bupivicaine 2021-08 No 2.5mg Common [place] 0-25 Spirit 00:00: - CHI 00 [facility] Kenalog Kenalog 2021-08 No 40mg Common (Triamcinol (Triamcinol 0-25 S pirit one) one) 00:00: - CHI 00 [facility] Bupivicaine Bupivicaine 2021-08 No 2.5mg Common [place] 0-25 Spirit 00:00: - CHI 00 [facility]oberto [facility] 2021-08 No 40mg Common (Triamcinol (Triamcinol 0-25 S pirit one) one) 00:00: - CHI 00 [facility] Bupivicaine Bupivicaine 2021-08 No 2.5mg Common [place] 0-25 Spirit 00:00: - CHI 00 [facility] Dagoberto 2021-08 No 40mg Common (Triamcinol (Triamcinol 0-25 S pirit one) one) 00:00: - CHI 00 [facility] Bupivicaine Bupivicaine 2021-08 No 2.5mg Common [place] 0-25 Spirit 00:00: - CHI 00 [facility] Dagoberto 2021-08 No 40mg Common (Triamcinol (Triamcinol 0-25 S pirit one) one) 00:00: - CHI 00 [facility] Bupivicaine Bupivicaine 2021-08 No 2.5mg Common [place] 0-25 Spirit 00:00: - CHI 00 [facility] 2021-08 No 40mg Common (Triamcinol (Triamcinol 0-25 S pirit one) one) 00:00: - CHI 00 [facility] Bupivicaine Bupivicaine 2021-08 No 2.5mg Common [place] 0-25 Spirit 00:00: - CHI 00 [facility] Imitrex 25 Imitrex 25 0 No BID [...] MCG/INH 00 :00 5 MCG/INH Trelegy Trelegy 2022-0 2- No 1{puff} QD Trelegy Ellipta Ellipta [...] mg 5 Spirit 00:00: - CHI 00 [facility] Hyalgan 20 Hyalgan 20 2021-0 No 20mg C ommon mg mg 12-31 Spirit 00:00: - CHI 00 [facility] Hyalgan 20 Hyalgan 20 2021-0 No 20mg C ommon mg mg 12-31 Spirit 00:00: - CHI 00 [facility] Hyalgan 20 Hyalgan 20 2021-0 No 20mg C ommon mg mg 12-31 Spirit 00:00: - CHI 00 [facility] Hyalgan 20 Hyalgan 20 2021-0 No 20mg C ommon mg mg 12-31 Spirit 00:00: - CHI 00 [facility] Hyalgan 20 Hyalgan 20 2021-0 No 20mg C ommon mg mg 12-31 Spirit 00:00: - CHI 00 [facility] Hyalgan 20 Hyalgan 20 2021-0 No 20mg C ommon mg mg 12-31 Spirit 00:00: - CHI 00 [facility] Hyalgan 20 Hyalgan 20 2021-0 No 20mg C ommon mg mg 12-31 Spirit 00:00: - CHI 00 [facility] Hyalgan 20 Hyalgan 20 2021-0 No 20mg C ommon mg mg 5- Spirit 00:00: - CHI 00 [facility] Hyalgan 20 Hyalgan 20 2022-0 No 20mg C ommon mg mg 12-31 Spirit 00:00: - CHI [facility] Hyalgan 20 Hyalgan 20 2021-0 No 20mg C ommon mg mg 12-31 Spirit 00:00: - CHI [facility] Hyalgan 20 Hyalgan 20 2021-0 No 20mg C ommon mg mg 12-31 Spirit 00:00: - CHI [facility] Hyalgan 20 Hyalgan 20 2021-0 No 20mg C ommon mg mg 12-31 Spirit 00:00: - CHI 00 [facility] Hyalgan 20 Hyalgan 20 2021-0 No 20mg C ommon mg mg 12-31 Spirit 00:00: - CHI [facility] Hyalgan 20 Hyalgan 20 2021-0 No 20mg C ommon mg mg 12-31 Spirit 00:00: - CHI [facility] Hyalgan 20 Hyalgan 20 2021-0 No 20mg C ommon mg mg 12-31 Spirit 00:00: - CHI [facility] Hyalgan 20 Hyalgan 20 2021-0 No 20mg C ommon mg mg 12-31 Spirit 00:00: - CHI [facility] Hyalgan 20 Hyalgan 20 2021-0 No 20mg C ommon mg mg 12-31 Spirit 00:00: - CHI [facility] Hyalgan 20 Hyalgan 20 2021-0 No 20mg C ommon mg mg 12-31 Spirit 00:00: - CHI [facility] Hyalgan 20 Hyalgan 20 2021-0 No 20mg C ommon mg mg 12-31 Spirit 00:00: - CHI [facility] Hyalgan 20 Hyalgan 20 2021-0 No 20mg C ommon mg mg 12-31 Spirit 00:00: - CHI [facility] Hyalgan 20 Hyalgan 20 2021-0 No 20mg C ommon mg mg 12-31 Spirit 00:00: - CHI [facility] Hyalgan 20 Hyalgan 20 2021-0 No 20mg C ommon mg mg 12-31 Spirit 00:00: - CHI [facility] Hyalgan 20 Hyalgan 20 2021-0 No 20mg C ommon mg mg 12-31 Spirit 00:00: - CHI 00 [facility] Hyalgan 20 Hyalgan 20 2022-0 No 20mg C ommon mg mg 12-31 Spirit 00:00: - CHI 00 [facility] Hyalgan 20 Hyalgan 20 2021-0 No 20mg C ommon mg mg 12-31 Spirit 00:00: - CHI 00 [facility] Hyalgan 20 Hyalgan 20 2021-0 No 20mg C ommon mg mg 12-31 Spirit 00:00: - CHI [facility] Hyalgan 20 Hyalgan 20 2021-0 No 20mg C ommon mg mg 12-31 Spirit 00:00: - CHI 00 [facility] Hyalgan 20 Hyalgan 20 2021-0 No 20mg C ommon mg mg 12-31 Spirit 00:00: - CHI [facility] Hyalgan 20 Hyalgan 20 2021-0 No 20mg C ommon mg mg 12-31 Spirit 00:00: - CHI [facility] Hyalgan 20 Hyalgan 20 2021-0 No 20mg C ommon mg mg 12-31 Spirit 00:00: - CHI [facility] Hyalgan 20 Hyalgan 20 2021-0 No 20mg C ommon mg mg 12-31 Spirit 00:00: - CHI [facility] Hyalgan 20 Hyalgan 20 2021-0 No 20mg C ommon mg mg 12-31 Spirit 00:00: - CHI [facility] Hyalgan 20 Hyalgan 20 2021-0 No 20mg C ommon mg mg 12-31 Spirit 00:00: - CHI [facility] Hyalgan 20 Hyalgan 20 2021-0 No 20mg C ommon mg mg 12-31 Spirit 00:00: - CHI [facility] Hyalgan 20 Hyalgan 20 2021-0 No 20mg C ommon mg mg 12-31 Spirit 00:00: - CHI 00 [facility] Hyalgan 20 Hyalgan 20 2021-0 No 20mg C ommon mg mg 12-31 Spirit 00:00: - CHI [facility] Hyalgan 20 Hyalgan 20 2021-0 No 20mg C ommon mg mg 12-31 Spirit 00:00: - CHI [facility] Hyalgan 20 Hyalgan 20 2021-0 No 20mg C ommon mg mg 12-31 Spirit 00:00: - CHI 00 [facility] Hyalgan 20 Hyalgan 20 2021-0 No 20mg C ommon mg mg 12-31 Spirit 00:00: - CHI 00 [facility] Hyalgan 20 Hyalgan 20 2021-0 No 20mg C ommon mg mg 12-31 Spirit 00:00: - CHI 00 [facility] Hyalgan 20 Hyalgan 20 2021-0 No 20mg C ommon mg mg 12-31 Spirit 00:00: - CHI 00 [facility] Hyalgan 20 Hyalgan 20 2021-0 No 20mg C ommon mg mg 12-31 Spirit 00:00: - CHI 00 [facility] Hyalgan 20 [place] 20 2021-0 No 20mg C ommon mg mg 12-31 Spirit 00:00: - CHI 00 [facility] Hyalgan 20 [place] 20 2021-0 No 20mg C ommon mg mg 12-31 Spirit 00:00: - CHI [facility] Hyalgan 20 Hyalgan 20 2021-0 No 20mg C ommon mg mg 12-31 Spirit 00:00: - CHI [facility] Hyalgan 20 Hyalgan 20 2021-0 No 20mg C ommon mg mg 12-31 Spirit 00:00: - CHI [facility] Hyalgan 20 [place] 20 2021-0 No 20mg C ommon mg mg 12-31 Spirit 00:00: - CHI [facility] Hyalgan 20 Hyalgan 20 2021-0 No 20mg C ommon mg mg 12-31 Spirit 00:00: - CHI [facility] Hyalgan 20 Hyalgan 20 2021-0 No 20mg C ommon mg mg 12-31 Spirit 00:00: - CHI 00 [facility] Hyalgan 20 Hyalgan 20 2021-0 No 20mg C ommon mg mg 12-31 Spirit 00:00: - CHI [facility] Hyalgan 20 Hyalgan 20 2021-0 No 20mg C ommon mg mg 12-31 Spirit 00:00: - CHI [facility] Hyalgan 20 Hyal[place] 20 2021-0 No 20mg C ommon mg mg 12-31 Spirit 00:00: - CHI [facility] Hyalgan 20 Hyalgan 20 2021-0 No 20mg C ommon mg mg 12-31 Spirit 00:00: - CHI [facility] Hyalgan 20 [place] 20 2021-0 No 20mg C ommon mg mg 12-31 Spirit 00:00: - CHI [facility] Hyalgan 20 Hyalgan 20 2021-0 No 20mg C ommon mg mg 12-31 Spirit 00:00: - CHI [facility] Hyalgan 20 Hyalgan 20 2021-0 No 20mg C ommon mg mg 12-31 Spirit 00:00: - CHI [facility] Hyalgan 20 Hyalgan 20 2021-0 No 20mg C ommon mg mg 12-31 Spirit 00:00: - CHI [facility] Hyalgan 20 Hyalgan 20 2021-0 No 20mg C ommon mg mg 12-17 Spirit 00:00: - CHI [facility] Hyalgan 20 Hyalgan 20 2021-0 No 20mg C ommon mg mg 12-17 Spirit 00:00: - CHI [facility] Hyalgan 20 Hyalgan 20 2021-0 No 20mg C ommon mg mg 12-17 Spirit 00:00: - CHI [facility] Hyalgan 20 Hyalgan 20 2021-0 No 20mg C ommon mg mg 12-17 Spirit 00:00: - CHI [facility] Hyalgan 20 Hyalgan 20 2021-0 No 20mg C ommon mg mg 12-17 Spirit 00:00: - CHI [facility] Hyalgan 20 Hyalgan 20 2021-0 No 20mg C ommon mg mg 12-17 Spirit 00:00: - CHI [facility] Hyalgan 20 Hyalgan 20 2021-0 No 20mg C ommon mg mg 12-17 Spirit 00:00: - CHI [facility] Hyalgan 20 Hyalgan 20 2021-0 No 20mg C ommon mg mg 12-17 Spirit 00:00: - CHI [facility] Hyalgan 20 Hyalgan 20 2021-0 No 20mg C ommon mg mg 12-17 Spirit 00:00: - CHI [facility] Hyalgan 20 Hyalgan 20 2021-0 No 20mg C ommon mg mg 12-17 Spirit 00:00: - CHI [facility] Hyalgan 20 Hyalgan 20 2021-0 No 20mg C ommon mg mg 12-17 Spirit 00:00: - CHI [facility] Hyalgan 20 Hyalgan 20 2021-0 No 20mg C ommon mg mg 12-17 Spirit 00:00: - CHI [facility] Hyalgan 20 Hyalgan 20 2021-0 No 20mg C ommon mg mg 12-17 Spirit 00:00: - CHI [facility] Hyalgan 20 Hyalgan 20 2021-0 No 20mg C ommon mg mg 12-17 Spirit 00:00: - CHI [facility] Hyalgan 20 Hyalgan 20 2021-0 No 20mg C ommon mg mg 12-17 Spirit 00:00: - CHI [facility] Hyalgan 20 Hyalgan 20 2021-0 No 20mg C ommon mg mg 12-17 Spirit 00:00: - CHI [facility] Hyalgan 20 Hyalgan 20 2021-0 No 20mg C ommon mg mg 12-17 Spirit 00:00: - CHI [facility] Hyalgan 20 Hyalgan 20 2021-0 No 20mg C ommon mg mg 12-17 Spirit 00:00: - CHI [facility] Hyalgan 20 Hyalgan 20 2021-0 No 20mg C ommon mg mg 12-17 Spirit 00:00: - CHI [facility] Hyalgan 20 Hyalgan 20 2021-0 No 20mg C ommon mg mg 12-17 Spirit 00:00: - CHI [facility] Hyalgan 20 Hyalgan 20 2021-0 No 20mg C ommon mg mg 12-17 Spirit 00:00: - CHI [facility] Hyalgan 20 Hyalgan 20 2021-0 No 20mg C ommon mg mg 12-17 Spirit 00:00: - CHI [facility] Hyalgan 20 Hyalgan 20 2021-0 No 20mg C ommon mg mg 12-17 Spirit 00:00: - CHI [facility] Hyalgan 20 Hyalgan 20 2021-0 No 20mg C ommon mg mg 12-17 Spirit 00:00: - CHI [facility] Hyalgan 20 Hyalgan 20 2021-0 No 20mg C ommon mg mg 12-17 Spirit 00:00: - CHI [facility] Hyalgan 20 Hyalgan 20 2021-0 No 20mg C ommon mg mg 12-17 Spirit 00:00: - CHI [facility] Hyalgan 20 Hyalgan 20 2021-0 No 20mg C ommon mg mg 12-17 Spirit 00:00: - CHI [facility] Hyalgan 20 Hyalgan 20 2021-0 No 20mg C ommon mg mg 12-17 [facility] 00:00: - [facility] Hyalgan 20 Hyalgan 20 2021-0 No 20mg C ommon mg mg 12-17 [facility] 00:00: - [facility] Hyalgan 20 Hyalgan 20 2021-0 No 20mg C ommon mg mg 12-17 [facility] 00:00: - [facility] Hy[place] 20 Hyalgan 20 2021-0 No 20mg C ommon mg mg 12-17 [facility] 00:00: - [facility] Hy[place] 20 Hyalgan 20 2021-0 No 20mg C ommon mg mg 12-17 [facility] 00:00: - [facility] Hy[place] 20 Hyalgan 20 2021-0 No 20mg C ommon mg mg 12-17 [facility] 00:00: - [facility] 20 Hyalgan 20 2021-0 No 20mg C ommon mg mg 12-17 [facility] 00:00: - [facility] 20 Hyalgan 20 2021-0 No 20mg C ommon mg mg 12-17 [facility] 00:00: - [facility] [place] 20 Hyalgan 20 2021-0 No 20mg C ommon mg mg 12-17 [facility] 00:00: - [facility] Hy[place] 20 Hyalgan 20 2021-0 No 20mg C ommon mg mg 12-17 [facility] 00:00: - [facility] Hyal[facility] 20 Hyalgan 20 2021-0 No 20mg C ommon mg mg 12-17 [facility] 00:00: - [facility] 20 Hyalgan 20 2021-0 No 20mg C ommon mg mg 12-17 [facility] 00:00: - [facility] Hy[place] 20 Hyalgan 20 2021-0 No 20mg C ommon mg mg 12-17 [facility] 00:00: - [facility] Hy[place] 20 Hyalgan 20 2021-0 No 20mg C ommon mg mg 12-17 [facility] 00:00: - [facility] Hyal[facility] 20 Hyalgan 20 2021-0 No 20mg C ommon mg mg 12-17 [facility] 00:00: - [facility] Hy[place] 20 Hyalgan 20 2021-0 No 20mg C ommon mg mg 12-17 [facility] 00:00: - [facility] 00 [facility] Hyalgan 20 Hyalgan 20 2021-0 No 20mg C ommon mg mg 12-17 [facility] 00:00: - [facility] Hyalgan 20 Hyalgan 20 2021-0 No 20mg C ommon mg mg 12-17 [facility] 00:00: - [facility] Hy[place] 20 Hyalgan 20 2021-0 No 20mg C ommon mg mg 12-17 [facility] 00:00: - [facility] Hy[place] 20 Hyalgan 20 2021-0 No 20mg C ommon mg mg 12-17 [facility] 00:00: - [facility] Hy[place]gan 20 Hyalgan 20 2021-0 No 20mg C ommon mg mg 12-17 [facility] 00:00: - [facility] Hy[place] 20 Hyalgan 20 2021-0 No 20mg C ommon mg mg 12-17 [facility] 00:00: - [facility] Hyal[facility] 20 Hyalgan 20 2021-0 No 20mg C ommon mg mg 12-17 [facility] 00:00: - [facility] Hy[place] 20 Hyalgan 20 2021-0 No 20mg C ommon mg mg 12-17 [facility] 00:00: - [facility] Hyal[facility] 20 Hyalgan 20 2021-0 No 20mg C ommon mg mg 12-17 [facility] 00:00: - [facility] Hyal[facility] 20 Hyalgan 20 2021-0 No 20mg C ommon mg mg 12-17 [facility] 00:00: - [facility] Hy[place] 20 Hyalgan 20 2021-0 No 20mg C ommon mg mg 12-17 [facility] 00:00: - [facility] Hy[place] 20 Hyalgan 20 2021-0 No 20mg C ommon mg mg 5-17 [facility] 00:00: - [facility] 00 [facility] Hy[place]gan 20 Hyalgan 20 2021-0 No 20mg C ommon mg mg -17 [facility] 00:00: - [facility] 00 [facility] Hyalgan 20 Hyalgan 20 2021-0 No 20mg C ommon mg mg -17 [facility] 00:00: - [facility] 00 [facility] Hyalgan 20 Hyalgan 20 2021-0 No 20mg C ommon mg mg -17 [facility] 00:00: - [facility] 00 [facility] Hyalgan 20 Hyalgan 20 2021-0 No 20mg C ommon mg mg - [facility] 00:00: - [facility] 00 [facility] Hyalgan 20 Hyalgan 20 2021-0 No 20mg C ommon mg mg - [facility] 00:00: - [facility] 00 [facility] Bupivicaine Bupivicaine 2-0 No 2.5mg [place]10 [facility] 00:00: - [facility] 00 [facility] Bupivicaine Bupivicaine 2021-0 No 2.5mg [facility] [place] 5[place]10 [facility] 00:00: - [facility] 00 [facility] Kenal[place] Kenalog 2021-0 No 40mg Common (Triamcinol (Triamcinol 5-10 S pirit one) one) 00:00: - [facility] 00 [facility] Hy[place] 20 Hyalgan 20 2021-0 No 20mg C ommon mg mg 5-10 [facility] 00:00: - [facility] 00 [facility] Hy[place] 20 Hyalgan 20 2021-0 No 20mg C ommon mg mg 5-10 [facility] 00:00: - [facility] 00 [facility] Hy[place] 20 Hyalgan 20 2021-0 No 20mg C ommon mg mg 5-10 [facility] 00:00: - [facility] 00 [facility] Ken[place] Kenalog 2-0 No 40mg Common (Triamcinol (Triamcinol 5-10 S pirit one) one) 00:00: - [facility] 00 [facility] Bupivicaine Bupivicaine 2-0 No 2.5mg [facility] [place] 5[place]10 [facility] 00:00: - [facility] 00 [facility] Bupivicaine Bupivicaine 2022-0 No 2.5mg [facility] [place] 5-10 [facility] 00:00: - [facility] 00 [facility] Ken[place] Kenalog 2021-0 No 40mg Common (Triamcinol (Triamcinol 5-10 S pirit one) one) 00:00: - [facility] 00 [facility] Hy[place] 20 Hyalgan 20 2021-0 No 20mg C ommon mg mg 5-10 [facility] 00:00: - [facility] 00 [facility] Ken[place] Kenalog 2021-0 No 40mg Common (Triamcinol (Triamcinol 5-10 S pirit one) one) 00:00: - [facility] 00 [facility] [place] 20 Hyalgan 20 2021-0 No 20mg C ommon mg mg 5-10 [facility] 00:00: - [facility] 00 [facility] Ken[place] Kenalog 2021-0 No 40mg Common (Triamcinol (Triamcinol 5-10 S pirit one) one) 00:00: - [facility] 00 [facility] Bupivicaine Bupivicaine 2021-0 No 2.5mg [facility] [place] 5[place]10 [facility] 00:00: - [facility] 00 [facility] Bupivicaine Bupivicaine 2021-0 No 2.5mg [facility] [place] 5-10 [facility] 00:00: - [facility] 00 [facility] Ken[place] Kenalog 2021-0 No 40mg Common (Triamcinol (Triamcinol 5-10 S pirit one) one) 00:00: - [facility] 00 [facility] Hy[place] 20 Hyalgan 20 2021-0 No 20mg C ommon mg mg 5-10 [facility] 00:00: - [facility] 00 [facility] Hy[place] 20 Hyalgan 20 2021-0 No 20mg C ommon mg mg 5-10 [facility] 00:00: - [facility] 00 [facility] Ken[place] Kenalog 2021-0 No 40mg Common (Triamcinol (Triamcinol 5-10 S pirit one) one) 00:00: - [facility] 00 [facility] Bupivicaine Bupivicaine 2-0 No 2.5mg [facility] [place] 5[place]10 [facility] 00:00: - [facility] 00 [facility] Bupivicaine Bupivicaine 2021-0 No 2.5mg [facility] [place] 5-10 [facility] 00:00: - [facility] 00 [facility] Ken[place] Kenalog 2021-0 No 40mg Common (Triamcinol (Triamcinol 5-10 S pirit one) one) 00:00: - [facility] 00 [facility] Hy[place] 20 Hyalgan 20 2021-0 No 20mg C ommon mg mg 5-10 [facility] 00:00: - [facility] 00 [facility] Hy[place] 20 Hyalgan 20 2021-0 No 20mg C ommon mg mg 5-10 [facility] 00:00: - [facility] 00 [facility] Ken[place] Kenalog 2021-0 No 40mg Common (Triamcinol (Triamcinol 5-10 S pirit one) one) 00:00: - [facility] 00 [facility] Bupivicaine Bupivicaine 2021-0 No 2.5mg [facility] [place] 5[place]10 [facility] 00:00: - [facility] 00 [facility] Bupivicaine Bupivicaine 2021-0 No 2.5mg [facility] [place] 5-10 [facility] 00:00: - [facility] 00 [facility] Ken[place] Kenalog 2021-0 No 40mg Common (Triamcinol (Triamcinol 5-10 S pirit one) one) 00:00: - [facility] 00 [facility] Hy[place] 20 Hyalgan 20 2021-0 No 20mg C ommon mg mg 5-10 [facility] 00:00: - [facility] 00 [facility] [place] 20 Hyalgan 20 2021-0 No 20mg C ommon mg mg 5-10 [facility] 00:00: - [facility] 00 [facility] Ken[place] Kenalog 2021-0 No 40mg Common (Triamcinol (Triamcinol 5-10 S pirit one) one) 00:00: - [facility] 00 [facility] Bupivicaine Bupivicaine 2021-0 No 2.5mg [facility] [place] 5-10 [facility] 00:00: - [facility] 00 [facility] Bupivicaine Bupivicaine 2021-0 No 2.5mg [facility] [place] 5-10 [facility] 00:00: - [facility] 00 [facility] Ken[place] Kenalog 2021-0 No 40mg Common (Triamcinol (Triamcinol 5-10 S pirit one) one) 00:00: - [facility] 00 [facility] Hy[place] 20 Hyalgan 20 2021-0 No 20mg C ommon mg mg 5-10 [facility] 00:00: - [facility] 00 [facility] Hy[place] 20 Hyalgan 20 2021-0 No 20mg C ommon mg mg 5-10 [facility] 00:00: - [facility] 00 [facility] Ken[place] Kenalog 2021-0 No 40mg Common (Triamcinol (Triamcinol 5-10 S pirit one) one) 00:00: - [facility] 00 [facility] Bupivicaine Bupivicaine 2-0 No 2.5mg [facility] [place] 5[place]10 [facility] 00:00: - [facility] 00 [facility] Ken[place] Kenalog 2021-0 No 40mg Common (Triamcinol (Triamcinol 5-10 S pirit one) one) 00:00: - [facility] 00 [facility] [place] 20 Hyalgan 20 2021-0 No 20mg C ommon mg mg 5-10 [facility] 00:00: - [facility] 00 [facility] Bupivicaine Bupivicaine 2-0 No 2.5mg [facility] [place] 5-10 [facility] 00:00: - [facility] 00 [facility] Bupivicaine Bupivicaine 2-0 No 2.5mg [facility] [place] 5-10 [facility] 00:00: - [facility] 00 [facility] Hy[place] 20 Hyalgan 20 2021-0 No 20mg C ommon mg mg 5-10 [facility] 00:00: - [facility] 00 [facility] Bupivicaine Bupivicaine 2-0 No 2.5mg [facility] [place] 5[place]10 [facility] 00:00: - [facility] 00 [facility] Ken[place] Kenalog 2021-0 No 40mg Common (Triamcinol (Triamcinol 5-10 S pirit one) one) 00:00: - [facility] 00 [facility] Bupivicaine Bupivicaine 2-0 No 2.5mg [facility] [place] 5[place]10 [facility] 00:00: - [facility] 00 [facility] Ken[place] Kenalog 2021-0 No 40mg Common (Triamcinol (Triamcinol 5-10 S pirit one) one) 00:00: - [facility] 00 [facility] [place] 20 Hyalgan 20 2021-0 No 20mg C ommon mg mg 5-10 [facility] 00:00: - [facility] 00 [facility] Bupivicaine Bupivicaine 2-0 No 2.5mg [facility] [place] 5-10 [facility] 00:00: - [facility] 00 [facility] Ken[place] Kenalog 2021-0 No 40mg Common (Triamcinol (Triamcinol 5-10 S pirit one) one) 00:00: - [facility] 00 [facility] Hy[place] 20 Hyalgan 20 2021-0 No 20mg C ommon mg mg 5-10 [facility] 00:00: - [facility] 00 [facility] Ken[place] Kenalog 2021-0 No 40mg Common (Triamcinol (Triamcinol 5-10 S pirit one) one) 00:00: - [facility] 00 [facility] Bupivicaine Bupivicaine 2021-0 No 2.5mg [facility] [place] 5[place]10 [facility] 00:00: - [facility] 00 [facility] Ken[place] Kenalog 2021-0 No 40mg Common (Triamcinol (Triamcinol 5-10 S pirit one) one) 00:00: - [facility] 00 [facility] [place] 20 Hyalgan 20 2021-0 No 20mg C ommon mg mg 5-10 [facility] 00:00: - [facility] 00 [facility] Bupivicaine Bupivicaine 2021-0 No 2.5mg [facility] [place] 5-10 [facility] 00:00: - [facility] 00 [facility] Hy[place] 20 Hyalgan 20 2021-0 No 20mg C ommon mg mg 5-10 [facility] 00:00: - [facility] 00 [facility] Kenalog 2021-0 No 40mg Common (Triamcinol (Triamcinol 5-10 S pirit one) one) 00:00: - [facility] 00 [facility] Bupivicaine Bupivicaine 2-0 No 2.5mg [facility] [place] 5-10 [facility] 00:00: - [facility] 00 [facility] Kenalog 2021-0 No 40mg Common (Triamcinol (Triamcinol 5-10 S pirit one) one) 00:00: - [facility] 00 [facility] [place] 20 Hyalgan 20 2021-0 No 20mg C ommon mg mg 5-10 [facility] 00:00: - [facility] 00 [facility] [place] 20 Hyalgan 20 2021-0 No 20mg C ommon mg mg 5-10 [facility] 00:00: - [facility] 00 [facility] Bupivicaine Bupivicaine 2021-0 No 2.5mg [facility] [place] 5-10 [facility] 00:00: - [facility] 00 [facility] Hy[place] 20 Hyalgan 20 2021-0 No 20mg C ommon mg mg 5-10 [facility] 00:00: - [facility] 00 [facility] [place] 20 Hyalgan 20 2021-0 No 20mg C ommon mg mg 5-10 [facility] 00:00: - [facility] 00 [facility] Ken[place] Kenalog 2021-0 No 40mg Common (Triamcinol (Triamcinol 5-10 S pirit one) one) 00:00: - [facility] 00 [facility] Bupivicaine Bupivicaine 2021-0 No 2.5mg [facility] [place] 5[place]10 [facility] 00:00: - [facility] 00 [facility] Kenalog 2021-0 No 40mg Common (Triamcinol (Triamcinol 5-10 S pirit one) one) 00:00: - [facility] 00 [facility] [place] 20 Hyalgan 20 2021-0 No 20mg C ommon mg mg 5-10 [facility] 00:00: - [facility] 00 [facility] Bupivicaine Bupivicaine 2021-0 No 2.5mg [facility] [place] 5[place]10 [facility] 00:00: - [facility] 00 [facility] Ken[place] Kenalog 2021-0 No 40mg Common (Triamcinol (Triamcinol 5-10 S pirit one) one) 00:00: - [facility] 00 [facility] [place] 20 Hyalgan 20 2021-0 No 20mg C ommon mg mg 5-10 [facility] 00:00: - [facility] 00 [facility] Kenalog 2021-0 No 40mg Common (Triamcinol (Triamcinol 5-10 S pirit one) one) 00:00: - [facility] 00 [facility] Bupivicaine Bupivicaine 2-0 No 2.5mg [facility] [place] 5[place]10 [facility] 00:00: - [facility] 00 [facility] Ken[facility] Kenalog 2021-0 No 40mg Common (Triamcinol (Triamcinol 5-10 S pirit one) one) 00:00: - [facility] 00 [facility] [place] 20 Hyalgan 20 2021-0 No 20mg C ommon mg mg 5-10 [facility] 00:00: - [facility] 00 [facility] Bupivicaine Bupivicaine 2021-0 No 2.5mg [facility] [place] 5[place]10 [facility] 00:00: - [facility] 00 [facility] Bupivicaine Bupivicaine 2-0 No 2.5mg [facility] [place] 5[place]10 [facility] 00:00: - [facility] 00 [facility] Bupivicaine Bupivicaine 2-0 No 2.5mg [facility] [place] 5[place]10 [facility] 00:00: - [facility] 00 [facility] Ken[place] Kenalog 2021-0 No 40mg Common (Triamcinol (Triamcinol 5-10 S pirit one) one) 00:00: - [facility] 00 [facility] Hy[place] 20 Hyalgan 20 2021-0 No 20mg C ommon mg mg 5-10 [facility] 00:00: - [facility] 00 [facility] Hy[place] 20 Hyalgan 20 2021-0 No 20mg C ommon mg mg 5-10 [facility] 00:00: - [facility] 00 [facility] Ken[place] Kenalog 2021-0 No 40mg Common (Triamcinol (Triamcinol 5-10 S pirit one) one) 00:00: - [facility] 00 [facility] Bupivicaine Bupivicaine 2-0 No 2.5mg [facility] [place] 5[place]10 [facility] 00:00: - [facility] 00 [facility] Bupivicaine Bupivicaine 2-0 No 2.5mg [facility] [place] 5-10 [facility] 00:00: - [facility] 00 [facility] Ken[place] Kenalog 2-0 No 40mg Common (Triamcinol (Triamcinol 5-10 S pirit one) one) 00:00: - [facility] 00 [facility] Hy[place]gan 20 Hyalgan 20 2021-0 No 20mg C ommon mg mg 5-10 [facility] 00:00: - [facility] 00 [facility] Hy[place] 20 Hyalgan 20 2021-0 No 20mg C ommon mg mg 5-10 [facility] 00:00: - [facility] 00 [facility] Ken[place] Kenalog 2021-0 No 40mg Common (Triamcinol (Triamcinol 5-10 S pirit one) one) 00:00: - [facility] 00 [facility] Ken[facility] Kenalog 2021-0 No 40mg Common (Triamcinol (Triamcinol 5-10 S pirit one) one) 00:00: - [facility] 00 [facility] Bupivicaine Bupivicaine 2021-0 No 2.5mg [facility] [place] 5[place]10 [facility] 00:00: - [facility] 00 [facility] Bupivicaine Bupivicaine 2021-0 No 2.5mg [facility] [place] 5-10 [facility] 00:00: - [facility] 00 [facility] Hy[place]gan 20 Hyalgan 20 2021-0 No 20mg C ommon mg mg 5-10 [facility] 00:00: - [facility] 00 [facility] Hy[place] 20 Hyalgan 20 2021-0 No 20mg C ommon mg mg 5-10 [facility] 00:00: - [facility] 00 [facility] Kenalog 2021-0 No 40mg Common (Triamcinol (Triamcinol 5-10 S pirit one) one) 00:00: - [facility] 00 [facility] Bupivicaine Bupivicaine 2021-0 No 2.5mg [facility] [place] 5[place]10 [facility] 00:00: - [facility] 00 [facility] Bupivicaine Bupivicaine 2021-0 No 2.5mg [facility] [place] 5-10 [facility] 00:00: - [facility] 00 [facility] Kenalog 2021-0 No 40mg Common (Triamcinol (Triamcinol 5-10 S pirit one) one) 00:00: - [facility] 00 [facility] Hy[place] 20 Hyalgan 20 2021-0 No 20mg C ommon mg mg 5-10 [facility] 00:00: - [facility] 00 [facility] Hy[place] 20 Hyalgan 20 2021-0 No 20mg C ommon mg mg 5-10 [facility] 00:00: - [facility] 00 [facility] Kenalog 2021-0 No 40mg Common (Triamcinol (Triamcinol 5-10 S pirit one) one) 00:00: - [facility] 00 [facility] Bupivicaine Bupivicaine 2021-0 No 2.5mg [facility] [place] 5[place]10 [facility] 00:00: - [facility] 00 [facility] Bupivicaine Bupivicaine 2021-0 No 2.5mg [facility] [place] 5-10 [facility] 00:00: - [facility] 00 [facility] Ken[facility] Kenalog 2021-0 No 40mg Common (Triamcinol (Triamcinol 5-10 S pirit one) one) 00:00: - [facility] 00 [facility] Hy[place] 20 Hyalgan 20 2021-0 No 20mg C ommon mg mg 5-10 [facility] 00:00: - [facility] 00 [facility] Hy[place] 20 Hyalgan 20 2021-0 No 20mg C ommon mg mg 5-10 [facility] 00:00: - [facility] 00 [facility] Kenalog 2021-0 No 40mg Common (Triamcinol (Triamcinol 5-10 S pirit one) one) 00:00: - [facility] 00 [facility] Bupivicaine Bupivicaine 2021-0 No 2.5mg [facility] [place] 5[place]10 [facility] 00:00: - [facility] 00 [facility] Bupivicaine Bupivicaine 2021-0 No 2.5mg [facility] [place] 5-10 [facility] 00:00: - [facility] 00 [facility] Ken[facility] Kenalog 2021-0 No 40mg Common (Triamcinol (Triamcinol 5-10 S pirit one) one) 00:00: - [facility] 00 [facility] Hy[place] 20 Hyalgan 20 2021-0 No 20mg C ommon mg mg 5-10 [facility] 00:00: - [facility] 00 [facility] Hy[place] 20 Hyalgan 20 2021-0 No 20mg C ommon mg mg 5-10 [facility] 00:00: - [facility] 00 [facility] Kenalog 2021-0 No 40mg Common (Triamcinol (Triamcinol 5-10 S pirit one) one) 00:00: - [facility] 00 [facility] Bupivicaine Bupivicaine 2-0 No 2.5mg [facility] [place] 5[place]10 [facility] 00:00: - [facility] 00 [facility] Bupivicaine Bupivicaine 2021-0 No 2.5mg [facility] [place] 5[place]10 [facility] 00:00: - [facility] 00 [facility] Kenalog 2021-0 No 40mg Common (Triamcinol (Triamcinol 5-10 S pirit one) one) 00:00: - [facility] 00 [facility] Hy[place] 20 Hyalgan 20 2021-0 No 20mg C ommon mg mg 5-10 [facility] 00:00: - [facility] 00 [facility] Hy[place] 20 Hyalgan 20 2021-0 No 20mg C ommon mg mg 5-10 [facility] 00:00: - [facility] 00 [facility] Kenalog 2021-0 No 40mg Common (Triamcinol (Triamcinol 5-10 S pirit one) one) 00:00: - [facility] 00 [facility] Bupivicaine Bupivicaine 2021-0 No 2.5mg [facility] [place] 5[place]10 [facility] 00:00: - [facility] 00 [facility] Bupivicaine Bupivicaine 2021-0 No 2.5mg [facility] [place] 5-10 [facility] 00:00: - [facility] 00 [facility] Ken[facility] Kenalog 2021-0 No 40mg Common (Triamcinol (Triamcinol 5-10 S pirit one) one) 00:00: - [facility] 00 [facility] Hy[place] 20 Hyalgan 20 2021-0 No 20mg C ommon mg mg 5-10 [facility] 00:00: - [facility] 00 [facility] Hy[place] 20 Hyalgan 20 2021-0 No 20mg C ommon mg mg 5-10 [facility] 00:00: - [facility] 00 [facility] Kenalog 2021-0 No 40mg Common (Triamcinol (Triamcinol 5-10 S pirit one) one) 00:00: - [facility] 00 [facility] Bupivicaine Bupivicaine 2021-0 No 2.5mg [facility] [place] 5[place]10 [facility] 00:00: - [facility] 00 [facility] Bupivicaine Bupivicaine 2-0 No 2.5mg [facility] [place] 5-10 [facility] 00:00: - [facility] 00 [facility] Ken[facility] Kenalog 2021-0 No 40mg Common (Triamcinol (Triamcinol 5-10 S pirit one) one) 00:00: - [facility] 00 [facility] Hy[place]gan 20 Hyalgan 20 2021-0 No 20mg C ommon mg mg 5-10 [facility] 00:00: - [facility] 00 [facility] Hyalgan 20 Hyalgan 20 2021-0 No 20mg C ommon mg mg 5-10 [facility] 00:00: - [facility] 00 [facility] Kenalog 2021-0 No 40mg Common (Triamcinol (Triamcinol 5-10 S pirit one) one) 00:00: - [facility] 00 [facility] Bupivicaine Bupivicaine 2021-0 No 2.5mg [facility] [place] 5[place]10 [facility] 00:00: - [facility] 00 [facility] Bupivicaine Bupivicaine 2021-0 No 2.5mg [facility] [place] 5[place]10 [facility] 00:00: - [facility] 00 [facility] Ken[facility] Kenalog 2021-0 No 40mg Common (Triamcinol (Triamcinol 5-10 S pirit one) one) 00:00: - [facility] 00 [facility] Hy[place]gan 20 Hyalgan 20 2021-0 No 20mg C ommon mg mg 5-10 [facility] 00:00: - [facility] 00 [facility] Hy[place]gan 20 Hyalgan 20 2021-0 No 20mg C ommon mg mg 5-10 [facility] 00:00: - [facility] 00 [facility] Kenalog 2021-0 No 40mg Common (Triamcinol (Triamcinol 5-10 S pirit one) one) 00:00: - [facility] 00 [facility] Bupivicaine Bupivicaine 2-0 No 2.5mg [facility] [place] 5[place]10 [facility] 00:00: - [facility] 00 [facility] Bupivicaine Bupivicaine 2-0 No 2.5mg [facility] [place] 5[place]10 [facility] 00:00: - [facility] 00 [facility] Ken[facility] Kenalog 2021-0 No 40mg Common (Triamcinol (Triamcinol 5-10 S pirit one) one) 00:00: - [facility] 00 [facility] Hy[place]gan 20 Hyalgan 20 2021-0 No 20mg C ommon mg mg 5-10 [facility] 00:00: - [facility] 00 [facility] Hyalgan 20 Hyalgan 20 2021-0 No 20mg C ommon mg mg 5-10 [facility] 00:00: - [facility] 00 [facility] Kenalog 2021-0 No 40mg Common (Triamcinol (Triamcinol 5-10 S pirit one) one) 00:00: - [facility] 00 [facility] Bupivicaine Bupivicaine 2-0 No 2.5mg [facility] [place] 5[place]10 [facility] 00:00: - [facility] 00 [facility] Bupivicaine Bupivicaine 2-0 No 2.5mg [facility] [place] 5[place]10 [facility] 00:00: - [facility] 00 [facility] Kenalog 2021-0 No 40mg Common (Triamcinol (Triamcinol 5-10 S pirit one) one) 00:00: - [facility] 00 [facility] Hyalgan 20 Hyalgan 20 2021-0 No 20mg C ommon mg mg 5-10 [facility] 00:00: - [facility] 00 [facility] Hyalgan 20 Hyalgan 20 2021-0 No 20mg C ommon mg mg 5-10 [facility] 00:00: - [facility] 00 [facility] Kenalog 2021-0 No 40mg Common (Triamcinol (Triamcinol 5-10 S pirit one) one) 00:00: - [facility] 00 [facility] Bupivicaine Bupivicaine 2-0 No 2.5mg [facility] [place] 5[place]10 [facility] 00:00: - [facility] 00 [facility] Bupivicaine Bupivicaine 2-0 No 2.5mg [facility] [place] 5[place]10 [facility] 00:00: - [facility] 00 [facility] Ken[facility] Kenalog 2021-0 No 40mg Common (Triamcinol (Triamcinol 5-10 S pirit one) one) 00:00: - [facility] 00 [facility] Hyalgan 20 Hyalgan 20 2021-0 No 20mg C ommon mg mg 5-10 [facility] 00:00: - [facility] 00 [facility] Hyalgan 20 Hyalgan 20 2021-0 No 20mg C ommon mg mg 5-10 [facility] 00:00: - [facility] 00 [facility] Kenalog 2021-0 No 40mg Common (Triamcinol (Triamcinol 5-10 S pirit one) one) 00:00: - [facility] 00 [facility] Bupivicaine Bupivicaine 2021-0 No 2.5mg [facility] [place] [facility]10 [facility] 00:00: - [facility] 00 [facility] Bupivicaine Bupivicaine 2-0 No 2.5mg [facility] [place] 5[place]10 [facility] 00:00: - [facility] 00 [facility] Kenalog 2021-0 No 40mg Common (Triamcinol (Triamcinol 5-10 S pirit one) one) 00:00: - [facility] 00 [facility] Hyalgan 20 Hyalgan 20 2021-0 No 20mg C ommon mg mg 5-10 [facility] 00:00: - [facility] 00 [facility] Hyalgan 20 Hyalgan 20 2021-0 No 20mg C ommon mg mg 5-10 [facility] 00:00: - [facility] 00 [facility] Kenalog 2021-0 No 40mg Common (Triamcinol (Triamcinol 5-10 S pirit one) one) 00:00: - [facility] 00 [facility] Bupivicaine Bupivicaine 2-0 No 2.5mg Common [place]10 [facility] 00:00: - [facility] 00 [facility] Bupivicaine Bupivicaine 2-0 No 2.5mg Common [place] 5[place]10 [facility] 00:00: - [facility] 00 [facility] Kenalog Kenalog 2021-0 No 40mg Common (Triamcinol (Triamcinol 5-10 S pirit one) one) 00:00: - [facility] 00 [facility] Hyalgan 20 Hyalgan 20 2021-0 No 20mg C ommon mg mg 5-10 Spirit 00:00: - [facility] 00 [facility] Hyalgan 20 Hyalgan 20 2021-0 No 20mg C ommon mg mg 5-10 Spirit 00:00: - [facility] 00 [facility] Kenalog Kenalog 2021-0 No 40mg Common (Triamcinol (Triamcinol 5-10 S pirit one) one) 00:00: - [facility] 00 [facility] Bupivicaine Bupivicaine 2021-0 No 2.5mg Common [place] 5-10 [facility] 00:00: - [facility] 00 [facility] Bupivicaine Bupivicaine 2021-0 No 2.5mg Common [place] 5-10 Spirit 00:00: - [facility] 00 [facility] Bupivicaine Bupivicaine 2021-0 No 2.5mg Common [place] 5-10 [facility] 00:00: - [facility] 00 [facility] Kenalog Kenalog 2021-0 No 40mg Common (Triamcinol (Triamcinol 5-10 S pirit one) one) 00:00: - [facility] 00 [facility] Bupivicaine Bupivicaine 2021-0 No 2.5mg Common [place] 5-10 [facility] 00:00: - [facility] 00 [facility] Hyalgan 20 Hyalgan 20 2021-0 No 20mg C ommon mg mg 5-10 Spirit 00:00: - [facility] 00 [facility] Hyalgan 20 Hyalgan 20 2021-0 No 20mg C ommon mg mg 5-10 Spirit 00:00: - [facility] 00 [facility] Kenalog Kenalog 2021-0 No 40mg Common (Triamcinol (Triamcinol 5-10 S pirit one) one) 00:00: - [facility] 00 [facility] Bupivicaine Bupivicaine 2021-0 No 2.5mg Common [place] 5-10 [facility] 00:00: - [facility] 00 [facility] Bupivicaine Bupivicaine 2-0 No 2.5mg Common [place] 5-10 [facility] 00:00: - [facility] 00 [facility] Kenalog Kenalog 2021-0 No 40mg Common (Triamcinol (Triamcinol 5-10 S pirit one) one) 00:00: - [facility] 00 [facility] Kenalog Kenalog 2021-0 No 40mg Common (Triamcinol (Triamcinol 5-10 S pirit one) one) 00:00: - [facility] 00 [facility] Hyalgan 20 Hyalgan 20 2021-0 No 20mg C ommon mg mg 5-10 Spirit 00:00: - [facility] 00 [facility] Hyalgan 20 Hyalgan 20 2021-0 No 20mg C ommon mg mg 5-10 Spirit 00:00: - [facility] 00 [facility] Kenalog Kenalog 2021-0 No 40mg Common (Triamcinol (Triamcinol 5-10 S pirit one) one) 00:00: - [facility] 00 [facility] Hyalgan 20 Hyalgan 20 2021-0 No 20mg C ommon mg mg 5-10 Spirit 00:00: - [facility] 00 [facility] Hyalgan 20 Hyalgan 20 2021-0 No 20mg C ommon mg mg 5-10 Spirit 00:00: - [facility] 00 [facility] Dagoberto Kenalog 2021-0 No 40mg Common (Triamcinol (Triamcinol 5-10 S pirit one) one) 00:00: - [facility] 00 [facility] AirDuo AirDuo 2021-0 2022- No 1{puff} BID AirDuo RespiClick RespiClick 12-06 RespiClick 232/14 232/14 00:00: 00:00 232/14 232-14 232-14 00 :00 232-14 MCG/ACT MCG/ACT MCG/ACT AirDuo AirDuo 2021-0 2022- No 1{puff} BID AirDuo RespiClick RespiClick 12-06- RespiClick 232/14 232/14 00:00: 00:00 232/14 232-14 232-14 00 :00 232-14 MCG/ACT MCG/ACT MCG/ACT AirDuo AirDuo 2021-0 2022- No 1{puff} BID AirDuo RespiClick RespiClick 12-06-11 RespiClick 232/14 232/14 00:00: 00:00 232/14 232-14 232-14 00 :00 232-14 MCG/ACT MCG/ACT MCG/ACT AirDuo AirDuo 2022-0 2023- No 1{puff} BID AirDuo RespiClick RespiClick 5-01 03-11 RespiClick 232/14 232/14 00:00: 00:00 232/14 [...] 2023- No 1{puff} BID AirDuo RespiClick RespiClick 5-06 02-26 RespiClick 232/14 232/14 00:00: 00:00 232/14 232-14 [...] BID AirDuo RespiClick RespiClick 12-06 RespiClick 232/14 23214 00:00: 00:00 232/14 232-14 232-14 00 :00 232-14 MCG/ACT MCG/ACT MCG/ACT Trelegy Trelegy 2021-0 2- No 1{puff} QD Trelegy Ellipta Ellipta 4- 07-27 Ellipta 200-62.5-25 200-62.5-25 00:00: 00:00 200-62.5-2 MCG/INH MCG/INH 00 :00 5 MCG/INH Trelegy Trelegy 2-0 2022- No 1{puff} QD Trelegy Ellipta Ellipta 4- 07-27 Ellipta 200-62.5-25 200-62.5-25 00:00: 00:00 200-62.5-2 [...] 00 :00 5 MCG/INH Trelegy Trelegy 2021-0 202- No 1{puff} QD Trelegy Ellipta Ellipta -28 02-26 Ellipta 200-62.5-25 200-62.5-25 00:00: 00:00 200-62.5-2 MCG/INH MCG/INH 00 :00 5 MCG/INH gabapentin 2020-0 Yes 600 mg = 2 M emoria 300 MG Oral 9-30 cap, PO, l Capsule 20:29: QPM, # 60 Kamini nn 00 cap, 3 Refill(s), Pharmacy: [facility] STORE #[id number], 172.72, cm, 05/02/21 15:03:00 CDT, Height, 97.273, kg, 05/02/21 15:03:00 CDT, Weight gabapentin 0 Yes 600 mg = 2 M emoria 300 MG Oral 9-30 cap, PO, l Capsule 20:29: QPM, # 60 Kamini nn 00 cap, 3 Refill(s), Pharmacy: [facility] STORE #[id number], 172.72, cm, 05/02/21 15:03:00 CDT, Height, 97.273, kg, 05/02/21 15:03:00 CDT, Weight gabapentin 0 Yes 600 mg = 2 M emoria 300 MG Oral 9-30 cap, PO, l Capsule 20:29: QPM, # 60 Kamini nn 00 cap, 3 Refill(s), Pharmacy: [facility] STORE #[id number], 172.72, cm, 05/02/21 15:03:00 CDT, Height, 97.273, kg, 05/02/21 15:03:00 CDT, Weight Lorazepam 2020-0 No See Memoria 0.5 MG Oral 04-09 Instructio l Tablet 14:55: ns, Take 1 Kamini nn [Ativan] 00 tab po 1 hour prior to MRI, may repeat q 15 min. if still anxious, # 5 tab, 0 Refill(s), Pharmacy: [facility] STORE #[id number], 172.72, cm, 03/27/21 10:39:00 CDT, Height, 98.182, kg, 03/27/21 10:39:00 CDT, Weight Lorazepam 2020-0 No See Memoria 0.5 MG Oral 9-07 Instructio l Tablet 14:55: ns, Take 1 Kamini nn [Ativan] 00 tab po 1 hour prior to MRI, may repeat q 15 min. if still anxious, # 5 tab, 0 Refill(s), Pharmacy: [facility] STORE #[id number], 172.72, cm, 03/27/21 10:39:00 CDT, Height, 98.182, kg, 03/27/21 10:39:00 CDT, Weight Lorazepam 2020-0 No See Memoria 0.5 MG Oral 9-07 Instructio l Tablet 14:55: ns, Take 1 Kamini nn [Ativan] 00 tab po 1 hour prior to MRI, may repeat q 15 min. if still anxious, # 5 tab, 0 Refill(s), Pharmacy: [facility] STORE #[id number], 172.72, cm, 03/27/21 10:39:00 CDT, Height, 98.182, kg, 03/27/21 10:39:00 CDT, Weight Vitamin D3 2020-0 Yes 0 Memoria 6-21 Refill(s) l 14:58: [place] 00 Vitamin D3 2020-0 Yes 0 Memoria 6-21 Refill(s) l 14:58: [place] 00 Vitamin D3 2020-0 Yes 0 Memoria 6-21 Refill(s) l 14:58: [place] 00 Vitamin C 202-0 Yes Daily, 0 Abdiel princess 6-21 Refill(s) l 14:57: [place] 00 Aspirin 2020-0 Yes 0 Memoria 6-21 Refill(s) l 14:57: [place] 00 Vitamin C 202-0 Yes Daily, 0 Abdiel princess 6-21 Refill(s) l 14:57: [place] 00 Aspirin 2020-0 Yes 0 Memoria 6-21 Refill(s) l 14:57: [place] 00 Vitamin C 202-0 Yes Daily, 0 Abdile princess 6-21 Refill(s) l 14:57: [place] 00 Aspirin 2020-0 Yes 0 Memoria 6-21 Refill(s) l 14:57: Furosemide 0 Yes 0 Memoria 40 MG Oral 6-21 Refill(s) l Tablet 14:42: 00 {2 (480 ML No 0 Memoria Magnesium 6-21 Refill(s) l Sulfate 14:42: [place] 0.0277 00 MEQ/ML / potassium sulfate 0.0374 MEQ/ML / sodium sulfate 0.257 MEQ/ML Oral Solution) } Pack [Suprep Bowel Prep Kit] Furosemide Yes 0 Memoria 40 MG Oral 6-21 Refill(s) l Tablet 14:42: {2 (480 ML No 0 Memoria Magnesium 6-21 Refill(s) l Sulfate 14:42: [place] 0.0277 00 MEQ/ML / potassium sulfate 0.0374 MEQ/ML / sodium sulfate 0.257 MEQ/ML Oral Solution) } Pack [Suprep Bowel Prep Kit] Furosemide Yes 0 Memoria 40 MG Oral 6-21 Refill(s) l Tablet 14:42: {2 (480 ML No 0 Memoria Magnesium 6-21 Refill(s) l Sulfate 14:42: [place] 0.0277 00 MEQ/ML / potassium sulfate 0.0374 MEQ/ML / sodium sulfate 0.257 MEQ/ML Oral Solution) } Pack [Suprep Bowel Prep Kit] citalopram 0 Yes 0 Memoria 10 mg oral 6-21 Refill(s) l tablet 14:41: Trelegy Yes 0 Memoria Ellipta 6-21 Refill(s) l inhalation 14:41: 00 omeprazole 0 Yes 0 Memoria 40 mg oral 6-21 Refill(s) l delayed 14:41: release 00 capsule amLODIPine 0 Yes 0 Memoria 10 mg oral 6-21 Refill(s) l tablet 14:41: losartan 0 Yes 0 Memoria 100 mg oral 6-21 Refill(s) l tablet 14:41: citalopram 0 Yes 0 Memoria 10 mg oral 6-21 Refill(s) l tablet 14:41: Trelegy 2020-0 Yes 0 Memoria Ellipta 6-21 Refill(s) l inhalation 14:41: [place] powder omeprazole 2020-0 Yes 0 Memoria 40 mg oral 6-21 Refill(s) l delayed 14:41: [place] release capsule amLODIPine 2020-0 Yes 0 Memoria 10 mg oral 6-21 Refill(s) l tablet 14:41: losartan 2020-0 Yes 0 Memoria 100 mg oral 6-21 Refill(s) l tablet 14:41: citalopram 2020-0 Yes 0 Memoria 10 mg oral 6-21 Refill(s) l tablet 14:41: Trelegy 2020-0 Yes 0 Memoria Ellipta 6-21 Refill(s) l inhalation 14:41: powder omeprazole 2020-0 Yes 0 Memoria 40 mg oral 6-21 Refill(s) l delayed 14:41: capsule amLODIPine 2020-0 Yes 0 Memoria 10 mg oral 6-21 Refill(s) l tablet 14:41: losartan 2020-0 Yes 0 Memoria 100 mg oral 6-21 Refill(s) l tablet 14:41: Hyalgan 20 Hyalgan 20 2020-0 No 20mg C ommon mg mg 5 Spirit 00:00: - [facility] Hyalgan 20 Hyalgan 20 2020-0 No 20mg C ommon mg mg 5- Spirit 00:00: - [facility] Hyalgan 20 Hyalgan 20 2020-0 No 20mg C ommon mg mg 5- Spirit 00:00: - [facility] Hyalgan 20 Hyalgan 20 2020-0 No 20mg C ommon mg mg 5- Spirit 00:00: - [facility] Hyalgan 20 Hyalgan 20 2020-0 No 20mg C ommon mg mg 5- Spirit 00:00: - [facility] Hyalgan 20 Hyalgan 20 2020-0 No 20mg C ommon mg mg 5- Spirit 00:00: - [facility] Hyalgan 20 Hyalgan 20 2020-0 No 20mg C ommon mg mg 5-11 Spirit 00:00: - [facility] Hyalgan 20 Hyalgan 20 2020-0 No 20mg C ommon mg mg 12-11 Spirit 00:00: - [facility] Hyalgan 20 Hyalgan 20 1-0 No 20mg C ommon mg mg 12-11 Spirit 00:00: - [facility] Hyalgan 20 Hyalgan 20 2020-0 No 20mg C ommon mg mg 12-11 Spirit 00:00: - [facility] Hyalgan 20 Hyalgan 20 1-0 No 20mg C ommon mg mg 12-11 Spirit 00:00: - [facility] Hyalgan 20 Hyalgan 20 2020-0 No 20mg C ommon mg mg 12-11 Spirit 00:00: - [facility] Hyalgan 20 Hyalgan 20 2020-0 No 20mg C ommon mg mg 12-11 Spirit 00:00: - [facility] Hyalgan 20 Hyalgan 20 2020-0 No 20mg C ommon mg mg 12-11 Spirit 00:00: - [facility] Hyalgan 20 Hyalgan 20 2020-0 No 20mg C ommon mg mg 12-11 Spirit 00:00: - [facility] Hyalgan 20 Hyalgan 20 2020-0 No 20mg C ommon mg mg 12-11 Spirit 00:00: - [facility] Hyalgan 20 Hyalgan 20 2020-0 No 20mg C ommon mg mg 12-11 Spirit 00:00: - [facility] Hyalgan 20 Hyalgan 20 1-0 No 20mg C ommon mg mg 12-11 Spirit 00:00: - [facility] Hyalgan 20 Hyalgan 20 1-0 No 20mg C ommon mg mg 12-11 Spirit 00:00: - [facility] Hyalgan 20 Hyalgan 20 1-0 No 20mg C ommon mg mg 12-11 Spirit 00:00: - [facility] Hyalgan 20 Hyalgan 20 1-0 No 20mg C ommon mg mg 12-11 Spirit 00:00: - [facility] Hyalgan 20 Hyalgan 20 2021-0 No 20mg C ommon mg mg 12-11 Spirit 00:00: - [facility] Hyalgan 20 Hyalgan 20 2020-0 No 20mg C ommon mg mg 12-11 Spirit 00:00: - [facility] Hyalgan 20 Hyalgan 20 2020-0 No 20mg C ommon mg mg 12-11 Spirit 00:00: - [facility] Hyalgan 20 Hyalgan 20 2020-0 No 20mg C ommon mg mg 12-11 Spirit 00:00: - [facility] Hyalgan 20 Hyalgan 20 2020-0 No 20mg C ommon mg mg 12-11 Spirit 00:00: - [facility] Hyalgan 20 Hyalgan 20 2020-0 No 20mg C ommon mg mg 12-11 Spirit 00:00: - [facility] Hyalgan 20 Hyalgan 20 2020-0 No 20mg C ommon mg mg 12-11 Spirit 00:00: - [facility] Hyalgan 20 Hyalgan 20 2020-0 No 20mg C ommon mg mg 12-11 Spirit 00:00: - [facility] Hyalgan 20 Hyalgan 20 2020-0 No 20mg C ommon mg mg 12-11 Spirit 00:00: - [facility] Hyalgan 20 Hyalgan 20 2020-0 No 20mg C ommon mg mg 12-11 Spirit 00:00: - [facility] Hyalgan 20 Hyalgan 20 2020-0 No 20mg C ommon mg mg 12-11 Spirit 00:00: - [facility] Hyalgan 20 Hyalgan 20 2020-0 No 20mg C ommon mg mg 12-11 Spirit 00:00: - [facility] Hyalgan 20 Hyalgan 20 2020-0 No 20mg C ommon mg mg 12-11 Spirit 00:00: - [facility] Hyalgan 20 Hyalgan 20 1-0 No 20mg C ommon mg mg 12-11 Spirit 00:00: - [facility] Hyalgan 20 Hyalgan 20 2020-0 No 20mg C ommon mg mg 12-11 Spirit 00:00: - [facility] 00 [facility] Hyalgan 20 Hyalgan 20 2020-0 No 20mg C ommon mg mg 12-11 Spirit 00:00: - [facility] Hyalgan 20 Hyalgan 20 2020-0 No 20mg C ommon mg mg 12-11 Spirit 00:00: - [facility] Hyalgan 20 Hyalgan 20 1-0 No 20mg C ommon mg mg 12-11 Spirit 00:00: - [facility] Hyalgan 20 Hyalgan 20 2020-0 No 20mg C ommon mg mg 12-11 Spirit 00:00: - [facility] Hyalgan 20 Hyalgan 20 2020-0 No 20mg C ommon mg mg 12-11 Spirit 00:00: - [facility] Hyalgan 20 Hyalgan 20 2020-0 No 20mg C ommon mg mg 12-11 Spirit 00:00: - [facility] Hyalgan 20 Hyalgan 20 2020-0 No 20mg C ommon mg mg 12-11 Spirit 00:00: - [facility] Hyalgan 20 Hyalgan 20 2020-0 No 20mg C ommon mg mg 12-11 Spirit 00:00: - [facility] Hyalgan 20 Hyalgan 20 2020-0 No 20mg C ommon mg mg 12-11 Spirit 00:00: - [facility] Hyalgan 20 Hyalgan 20 2020-0 No 20mg C ommon mg mg 12-11 Spirit 00:00: - [facility] Hyalgan 20 Hyalgan 20 2020-0 No 20mg C ommon mg mg 12-11 Spirit 00:00: - [facility] Hyalgan 20 Hyalgan 20 1-0 No 20mg C ommon mg mg 12-11 Spirit 00:00: - [facility] Hyalgan 20 Hyalgan 20 1-0 No 20mg C ommon mg mg 12-11 Spirit 00:00: - [facility] Hyalgan 20 Hyalgan 20 1-0 No 20mg C ommon mg mg 12-11 Spirit 00:00: - [facility] Hyalgan 20 Hyalgan 20 2020-0 No 20mg C ommon mg mg 12-11 Spirit 00:00: - [facility] Hyalgan 20 Hyalgan 20 2020-0 No 20mg C ommon mg mg 12-11 Spirit 00:00: - [facility] Hyalgan 20 Hyalgan 20 2020-0 No 20mg C ommon mg mg 12-11 Spirit 00:00: - [facility] Hyalgan 20 Hyalgan 20 2020-0 No 20mg C ommon mg mg 12-11 Spirit 00:00: - [facility] Hyalgan 20 Hyalgan 20 2020-0 No 20mg C ommon mg mg 12-11 Spirit 00:00: - [facility] Hyalgan 20 Hyalgan 20 2020-0 No 20mg C ommon mg mg 12-11 Spirit 00:00: - [facility] Hyalgan 20 Hyalgan 20 2020-0 No 20mg C ommon mg mg 12-11 Spirit 00:00: - [facility] Hyalgan 20 Hyalgan 20 2020-0 No 20mg C ommon mg mg 12-11 Spirit 00:00: - [facility] Hyalgan 20 Hyalgan 20 2020-0 No 20mg C ommon mg mg 12-11 Spirit 00:00: - [facility] Hyalgan 20 Hyalgan 20 2020-0 No 20mg C ommon mg mg 12-11 Spirit 00:00: - [facility] Hyalgan 20 Hyalgan 20 2020-0 No 20mg C ommon mg mg 12-11 Spirit 00:00: - [facility] Hyalgan 20 Hyalgan 20 2020-0 No 20mg C ommon mg mg 12-11 Spirit 00:00: - [facility] Hyalgan 20 Hyalgan 20 2020-0 No 20mg C ommon mg mg 12-11 Spirit 00:00: - [facility] Hyalgan 20 Hyalgan 20 2020-0 No 20mg C ommon mg mg 12-11 Spirit 00:00: - [facility] Hyalgan 20 Hyalgan 20 2020-0 No 20mg C ommon mg mg 12-11 Spirit 00:00: - [facility] Hyalgan 20 Hyalgan 20 2020-0 No 20mg C ommon mg mg 12-11 Spirit 00:00: - [facility] Hyalgan 20 Hyalgan 20 2020-0 No 20mg C ommon mg mg 12-11 Spirit 00:00: - [facility] Hyalgan 20 Hyalgan 20 2020-0 No 20mg C ommon mg mg 12-11 Spirit 00:00: - [facility] Hyalgan 20 Hyalgan 20 2020-0 No 20mg C ommon mg mg 12-11 Spirit 00:00: - [facility] Hyalgan 20 Hyalgan 20 2020-0 No 20mg C ommon mg mg 12-11 Spirit 00:00: - [facility] Hyalgan 20 Hyalgan 20 2020-0 No 20mg C ommon mg mg 12-11 Spirit 00:00: - [facility] Hyalgan 20 Hyalgan 20 2020-0 No 20mg C ommon mg mg 12-11 Spirit 00:00: - [facility] Hyalgan 20 Hyalgan 20 2020-0 No 20mg C ommon mg mg 12-11 Spirit 00:00: - [facility] Hyalgan 20 Hyalgan 20 2020-0 No 20mg C ommon mg mg 12-11 Spirit 00:00: - [facility] Hyalgan 20 Hyalgan 20 2020-0 No 20mg C ommon mg mg 12-11 Spirit 00:00: - [facility] Hyalgan 20 Hyalgan 20 2020-0 No 20mg C ommon mg mg 12-11 Spirit 00:00: - [facility] Hyalgan 20 Hyalgan 20 2020-0 No 20mg C ommon mg mg 12-11 Spirit 00:00: - [facility] Hyalgan 20 Hyalgan 20 2020-0 No 20mg C ommon mg mg 12-11 Spirit 00:00: - [facility] Hyalgan 20 Hyalgan 20 2020-0 No 20mg C ommon mg mg 12-11 Spirit 00:00: - [facility] Hyalgan 20 Hyalgan 20 2020-0 No 20mg C ommon mg mg 12-11 Spirit 00:00: - [facility] Hyalgan 20 Hyalgan 20 2020-0 No 20mg C ommon mg mg 12-06 Spirit 00:00: - [facility] Hyalgan 20 Hyalgan 20 2020-0 No 20mg C ommon mg mg 12-06 Spirit 00:00: - [facility] Hyalgan 20 Hyalgan 20 2020-0 No 20mg C ommon mg mg 12-06 Spirit 00:00: - [facility] Hyalgan 20 Hyalgan 20 2020-0 No 20mg C ommon mg mg 12-06 Spirit 00:00: - [facility] Hyalgan 20 Hyalgan 20 2020-0 No 20mg C ommon mg mg 12-06 Spirit 00:00: - [facility] Hyalgan 20 Hyalgan 20 2020-0 No 20mg C ommon mg mg 12-06 Spirit 00:00: - [facility] Hyalgan 20 Hyalgan 20 2020-0 No 20mg C ommon mg mg 12-06 Spirit 00:00: - [facility] Hyalgan 20 Hyalgan 20 2020-0 No 20mg C ommon mg mg 12-06 Spirit 00:00: - [facility] Hyalgan 20 Hyalgan 20 2020-0 No 20mg C ommon mg mg 12-06 Spirit 00:00: - [facility] Hyalgan 20 Hyalgan 20 2020-0 No 20mg C ommon mg mg 12-06 Spirit 00:00: - [facility] Hyalgan 20 Hyalgan 20 2020-0 No 20mg C ommon mg mg 12-06 Spirit 00:00: - [facility] Hyalgan 20 Hyalgan 20 2020-0 No 20mg C ommon mg mg 12-06 Spirit 00:00: - [facility] Hyalgan 20 Hyalgan 20 2020-0 No 20mg C ommon mg mg 12-06 Spirit 00:00: - [facility] Hyalgan 20 Hyalgan 20 2020-0 No 20mg C ommon mg mg 12-06 Spirit 00:00: - [facility] Hyalgan 20 Hyalgan 20 2020-0 No 20mg C ommon mg mg 12-06 Spirit 00:00: - [facility] Hyalgan 20 Hyalgan 20 2020-0 No 20mg C ommon mg mg 12-06 Spirit 00:00: - [facility] Hyalgan 20 Hyalgan 20 2020-0 No 20mg C ommon mg mg 12-06 Spirit 00:00: - [facility] Hyalgan 20 Hyalgan 20 2020-0 No 20mg C ommon mg mg 12-06 Spirit 00:00: - [facility] Hyalgan 20 Hyalgan 20 2020-0 No 20mg C ommon mg mg 12-06 Spirit 00:00: - [facility] Hyalgan 20 Hyalgan 20 2020-0 No 20mg C ommon mg mg 12-06 Spirit 00:00: - [facility] Hyalgan 20 Hyalgan 20 2020-0 No 20mg C ommon mg mg 12-06 Spirit 00:00: - [facility] Hyalgan 20 Hyalgan 20 2020-0 No 20mg C ommon mg mg 12-06 Spirit 00:00: - [facility] Hyalgan 20 Hyalgan 20 2020-0 No 20mg C ommon mg mg 12-06 Spirit 00:00: - [facility] Hyalgan 20 Hyalgan 20 2020-0 No 20mg C ommon mg mg 12-06 Spirit 00:00: - [facility] Hyalgan 20 Hyalgan 20 2020-0 No 20mg C ommon mg mg 12-06 Spirit 00:00: - [facility] Hyalgan 20 Hyalgan 20 2020-0 No 20mg C ommon mg mg 12-06 Spirit 00:00: - [facility] Hyalgan 20 Hyalgan 20 2020-0 No 20mg C ommon mg mg 12-06 Spirit 00:00: - [facility] Hyalgan 20 Hyalgan 20 2020-0 No 20mg C ommon mg mg 12-06 [facility] 00:00: - [facility] Hyalgan 20 Hyalgan 20 1-0 No 20mg C ommon mg mg 12-06 Spirit 00:00: - [facility] Hyalgan 20 Hyalgan 20 2020-0 No 20mg C ommon mg mg 12-06 [facility] 00:00: - [facility] Hyalgan 20 Hyalgan 20 2020-0 No 20mg C ommon mg mg 12-06 Spirit 00:00: - [facility] Hyalgan 20 Hyalgan 20 2020-0 No 20mg C ommon mg mg 12-06 Spirit 00:00: - [facility] Hyalgan 20 Hyalgan 20 2020-0 No 20mg C ommon mg mg 12-06 Spirit 00:00: - [facility] Hyalgan 20 Hyalgan 20 2020-0 No 20mg C ommon mg mg 12-06 [facility] 00:00: - [facility] Hyalgan 20 Hyalgan 20 2020-0 No 20mg C ommon mg mg 12-06 [facility] 00:00: - [facility] Hyalgan 20 Hyalgan 20 2020-0 No 20mg C ommon mg mg 12-06 [facility] 00:00: - [facility] Hyalgan 20 Hyalgan 20 2020-0 No 20mg C ommon mg mg 12-06 [facility] 00:00: - [facility] Hyalgan 20 Hyalgan 20 2020-0 No 20mg C ommon mg mg 12-06 [facility] 00:00: - [facility] Hyalgan 20 Hyalgan 20 2020-0 No 20mg C ommon mg mg 12-06 [facility] 00:00: - [facility] Hyalgan 20 Hyalgan 20 2020-0 No 20mg C ommon mg mg 12-06 [facility] 00:00: - [facility] Hyalgan 20 Hyalgan 20 2020-0 No 20mg C ommon mg mg 12-06 [facility] 00:00: - [facility] Hyalgan 20 Hyalgan 20 2020-0 No 20mg C ommon mg mg 12-06 [facility] 00:00: - [facility] Hyalgan 20 Hyalgan 20 2020-0 No 20mg C ommon mg mg 12-06 [facility] 00:00: - [facility] Hyalgan 20 Hyalgan 20 2020-0 No 20mg C ommon mg mg 12-06 [facility] 00:00: - [facility] Hyalgan 20 Hyalgan 20 2020-0 No 20mg C ommon mg mg 12-06 [facility] 00:00: - [facility] Hyalgan 20 Hyalgan 20 2020-0 No 20mg C ommon mg mg 12-06 [facility] 00:00: - [facility] Hyalgan 20 Hyalgan 20 2020-0 No 20mg C ommon mg mg 12-06 [facility] 00:00: - [facility] Hyalgan 20 Hyalgan 20 2020-0 No 20mg C ommon mg mg 12-06 [facility] 00:00: - [facility] Hyalgan 20 Hyalgan 20 2020-0 No 20mg C ommon mg mg 12-06 [facility] 00:00: - [facility] Hyalgan 20 Hyalgan 20 2020-0 No 20mg C ommon mg mg 12-06 [facility] 00:00: - [facility] Hyalgan 20 Hyalgan 20 2020-0 No 20mg C ommon mg mg 12-06 [facility] 00:00: - [facility] Hyalgan 20 Hyalgan 20 2020-0 No 20mg C ommon mg mg 12-06 [facility] 00:00: - [facility] Hyalgan 20 Hyalgan 20 2020-0 No 20mg C [facility] mg mg 12-06 [facility] 00:00: - [facility] Hyalgan 20 Hyalgan 20 2020-0 No 20mg C [facility] mg mg 12-06 [facility] 00:00: - [facility] Hyalgan 20 Hyalgan 20 2020-0 No 20mg C [facility] mg mg 12-06 [facility] 00:00: - [facility] Hyalgan 20 Hyalgan 20 2020-0 No 20mg C [facility] mg mg 12-06 [facility] 00:00: - [facility] Hyalgan 20 Hyalgan 20 2020-0 No 20mg C [facility] mg mg 12-06 [facility]: - [facility] Hyalgan 20 Hyalgan 20 2020-0 No 20mg C ommon mg mg 12-06 [facility] 00:00: - [facility] Hyalgan 20 Hyalgan 20 2020-0 No 20mg C ommon mg mg 12-06 [facility] 00:00: - [facility] Hyalgan 20 Hyalgan 20 2020-0 No 20mg C ommon mg mg 12-06 [facility] 00:00: - [facility] Hyalgan 20 Hyalgan 20 2020-0 No 20mg C ommon mg mg 12-06 [facility] 00:00: - [facility] Hyalgan 20 Hyalgan 20 2020-0 No 20mg C ommon mg mg 12-06 [facility] 00:00: - [facility] Hyalgan 20 Hyalgan 20 2020-0 No 20mg C ommon mg mg 12-06 [facility] 00:00: - [facility] Hyalgan 20 Hyalgan 20 2020-0 No 20mg C ommon mg mg 12-06 [facility] 00:00: - [facility] Hyalgan 20 Hyalgan 20 2020-0 No 20mg C ommon mg mg 12-06 [facility] 00:00: - [facility] Hyalgan 20 Hyalgan 20 2020-0 No 20mg C ommon mg mg 12-06 [facility] 00:00: - [facility] Hyalgan 20 Hyalgan 20 2020-0 No 20mg C ommon mg mg 12-06 [facility] 00:00: - [facility] Hyalgan 20 Hyalgan 20 2020-0 No 20mg C ommon mg mg 12-06 [facility] 00:00: - [facility] Hyalgan 20 Hyalgan 20 2020-0 No 20mg C ommon mg mg 12-06 [facility] 00:00: - [facility] Hyalgan 20 Hyalgan 20 2020-0 No 20mg C ommon mg mg 12-06 [facility] 00:00: - [facility] Hyalgan 20 Hyalgan 20 2020-0 No 20mg C ommon mg mg 12-06 [facility] 00:00: - [facility] Hyalgan 20 Hyalgan 20 2020-0 No 20mg C ommon mg mg 12-06 [facility] 00:00: - [facility] Hyalgan 20 Hyalgan 20 2020-0 No 20mg C ommon mg mg 12-06 [facility] 00:00: - [facility] Hyalgan 20 Hyalgan 20 2020-0 No 20mg C ommon mg mg 12-06 [facility] 00:00: - [facility] Hyalgan 20 Hyalgan 20 2020-0 No 20mg C ommon mg mg 12-06 [facility] 00:00: - [facility] Hyalgan 20 Hyalgan 20 2020-0 No 20mg C ommon mg mg 12-06 [facility] 00:00: - [facility] Hyalgan 20 Hyalgan 20 2020-0 No 20mg C ommon mg mg 12-06 [facility] 00:00: - [facility] Hyalgan 20 Hyalgan 20 2020-0 No 20mg C ommon mg mg 12-06 [facility] 00:00: - [facility] Hyalgan 20 Hyalgan 20 2020-0 No 20mg C ommon mg mg 12-06 [facility] 00:00: - [facility] Hyalgan 20 Hyalgan 20 2020-0 No 20mg C ommon mg mg 12-06 [facility] 00:00: - [facility] Bupivicaine Bupivicaine 2020-0 No 2.5mg [place]22 [facility] 00:00: - [facility] Kenalog Kenalog 2020-0 No 40mg Common (Triamcinol (Triamcinol 4-22 S pirit one) one) 00:00: - [facility] Bupivicaine Bupivicaine 2020-0 No 2.5mg [place] 4-22 [facility] 00:00: - [facility] Hyalgan 20 Hyalgan 20 2020-0 No 20mg C ommon mg mg 11-22 [facility] 00:00: - [facility] Hyalgan 20 Hyalgan 20 2020-0 No 20mg C ommon mg mg 11-22 [facility] 00:00: - [facility] Kenalog Kenalog 2020-0 No 40mg Common (Triamcinol (Triamcinol 4-22 S pirit one) one) 00:00: - [facility] 00 [facility] Bupivicaine Bupivicaine 2020-0 No 2.5mg [place] 4-22 [facility] 00:00: - [facility] Kenalog Kenalog 2020-0 No 40mg Common (Triamcinol (Triamcinol 4-22 S pirit one) one) 00:00: - [facility] 00 [facility] Bupivicaine Bupivicaine 2020-0 No 2.5mg [place] 4-22 [facility] 00:00: - [facility] 00 [facility] Hyalgan 20 Hyalgan 20 2020-0 No 20mg C ommon mg mg 4-22 [facility] 00:00: - [facility] 00 [facility] Hyalgan 20 Hyalgan 20 2020-0 No 20mg C ommon mg mg 4-22 [facility] 00:00: - [facility] 00 [facility] Kenalog Kenalog 2020-0 No 40mg Common (Triamcinol (Triamcinol 4-22 S pirit one) one) 00:00: - [facility] 00 [facility] Bupivicaine Bupivicaine 2020-0 No 2.5mg [place] 4-22 [facility] 00:00: - [facility] 00 [facility] Kenalog Kenalog 2020-0 No 40mg Common (Triamcinol (Triamcinol 4-22 S pirit one) one) 00:00: - [facility] 00 [facility] Bupivicaine Bupivicaine 2020-0 No 2.5mg [place] 4-22 [facility] 00:00: - [facility] 00 [facility] Hyalgan 20 Hyalgan 20 2020-0 No 20mg C ommon mg mg - [facility] 00:00: - [facility] 00 [facility] Hyalgan 20 Hyalgan 20 2020-0 No 20mg C ommon mg mg 4-22 [facility] 00:00: - [facility] 00 [facility] Kenalog Kenalog 2020-0 No 40mg Common (Triamcinol (Triamcinol 4-22 S pirit one) one) 00:00: - [facility] 00 [facility] Bupivicaine Bupivicaine 2020-0 No 2.5mg [place] 4-22 [facility] 00:00: - [facility] 00 [facility] Kenalog Kenalog 2020-0 No 40mg Common (Triamcinol (Triamcinol 4-22 S pirit one) one) 00:00: - [facility] 00 [facility] Bupivicaine Bupivicaine 2020-0 No 2.5mg Common [place] 4-22 [facility] 00:00: - [facility] 00 [facility] Hyalgan 20 Hyalgan 20 2020-0 No 20mg C ommon mg mg 4-22 [facility] 00:00: - [facility] 00 [facility] Hyalgan 20 Hyalgan 20 2020-0 No 20mg C ommon mg mg 4-22 [facility] 00:00: - [facility] 00 [facility] Kenalog Kenalog 2020-0 No 40mg Common (Triamcinol (Triamcinol 4-22 S pirit one) one) 00:00: - [facility] 00 [facility] Bupivicaine Bupivicaine 2020-0 No 2.5mg [facility] [place] 4-22 [facility] 00:00: - [facility] 00 [facility] Kenalog Kenalog 2020-0 No 40mg Common (Triamcinol (Triamcinol 4-22 S pirit one) one) 00:00: - [facility] 00 [facility] Bupivicaine Bupivicaine 2020-0 No 2.5mg Common [place] 4-22 [facility] 00:00: - [facility] 00 [facility] Hyalgan 20 Hyalgan 20 2020-0 No 20mg C ommon mg mg 4-22 [facility] 00:00: - [facility] 00 [facility] Hyalgan 20 Hyalgan 20 2020-0 No 20mg C ommon mg mg 4-22 [facility] 00:00: - [facility] 00 [facility] Kenalog Kenalog 2020-0 No 40mg Common (Triamcinol (Triamcinol 4-22 S pirit one) one) 00:00: - [facility] 00 [facility] Bupivicaine Bupivicaine 2020-0 No 2.5mg [facility] [place] 4-22 [facility] 00:00: - [facility] 00 [facility] Kenalog Kenalog 2020-0 No 40mg Common (Triamcinol (Triamcinol 4-22 S pirit one) one) 00:00: - [facility] 00 [facility] Bupivicaine Bupivicaine 2020-0 No 2.5mg Common [place] 4-22 [facility] 00:00: - [facility] 00 [facility] Hyalgan 20 Hyalgan 20 2020-0 No 20mg C ommon mg mg 4-22 [facility] 00:00: - [facility] 00 [facility] Hyalgan 20 Hyalgan 20 2020-0 No 20mg C ommon mg mg 4-22 [facility] 00:00: - [facility] 00 [facility] Kenalog Kenalog 2020-0 No 40mg Common (Triamcinol (Triamcinol 4-22 S pirit one) one) 00:00: - [facility] 00 [facility] Bupivicaine Bupivicaine 2020-0 No 2.5mg Common [place] 4-22 [facility] 00:00: - [facility] 00 [facility] Kenalog Kenalog 2020-0 No 40mg Common (Triamcinol (Triamcinol 4-22 S pirit one) one) 00:00: - [facility] 00 [facility] Bupivicaine Bupivicaine 2020-0 No 2.5mg Common [place] 4-22 [facility] 00:00: - [facility] 00 [facility] Hyalgan 20 Hyalgan 20 2020-0 No 20mg C ommon mg mg 4-22 [facility] 00:00: - [facility] 00 [facility] Hyalgan 20 Hyalgan 20 2020-0 No 20mg C ommon mg mg 4-22 [facility] 00:00: - [facility] 00 [facility] Kenalog Kenalog 2020-0 No 40mg Common (Triamcinol (Triamcinol 4-22 S pirit one) one) 00:00: - [facility] 00 [facility] Bupivicaine Bupivicaine 2020-0 No 2.5mg [facility] [place] 4-22 [facility] 00:00: - [facility] 00 [facility] Kenalog Kenalog 2020-0 No 40mg Common (Triamcinol (Triamcinol 4-22 S pirit one) one) 00:00: - [facility] 00 [facility] Bupivicaine Bupivicaine 2020-0 No 2.5mg Common [place] 4-22 [facility] 00:00: - [facility] 00 [facility] Hyalgan 20 Hyalgan 20 2020-0 No 20mg C ommon mg mg 4-22 [facility] 00:00: - [facility] 00 [facility] Hyalgan 20 Hyalgan 20 2020-0 No 20mg C ommon mg mg 4-22 [facility] 00:00: - [facility] 00 [facility] Kenal[place] Kenalog 2020-0 No 40mg Common (Triamcinol (Triamcinol 4-22 S pirit one) one) 00:00: - [facility] 00 [facility] Bupivicaine Bupivicaine 2020-0 No 2.5mg Common [place] 4-22 [facility] 00:00: - [facility] 00 [facility] Kenalog Kenalog 2020-0 No 40mg Common (Triamcinol (Triamcinol 4-22 S pirit one) one) 00:00: - [facility] 00 [facility] Bupivicaine Bupivicaine 2020-0 No 2.5mg Common [place] 4-22 [facility] 00:00: - [facility] 00 [facility] Hyalgan 20 Hyalgan 20 2020-0 No 20mg C ommon mg mg 4-22 [facility] 00:00: - [facility] 00 [facility] Hyalgan 20 Hyalgan 20 2020-0 No 20mg C ommon mg mg 4-22 [facility] 00:00: - [facility] 00 [facility] [place] Kenalog 2020-0 No 40mg Common (Triamcinol (Triamcinol 4-22 S pirit one) one) 00:00: - [facility] 00 [facility] Bupivicaine Bupivicaine 2020-0 No 2.5mg Common [place] 4-22 [facility] 00:00: - [facility] 00 [facility] Kenalog Kenalog 2020-0 No 40mg Common (Triamcinol (Triamcinol 4-22 S pirit one) one) 00:00: - [facility] 00 [facility] Bupivicaine Bupivicaine 2020-0 No 2.5mg Common [place] 4-22 [facility] 00:00: - [facility] 00 [facility] Hyalgan 20 Hyalgan 20 2020-0 No 20mg C ommon mg mg 4-22 [facility] 00:00: - [facility] 00 [facility] Hyalgan 20 Hyalgan 20 2020-0 No 20mg C ommon mg mg 4-22 [facility] 00:00: - [facility] 00 [facility] Kenalog Kenalog 2020-0 No 40mg Common (Triamcinol (Triamcinol 4-22 S pirit one) one) 00:00: - [facility] 00 [facility] Bupivicaine Bupivicaine 2020-0 No 2.5mg Common [place] 4-22 [facility] 00:00: - [facility] 00 [facility] Kenalog Kenalog 2020-0 No 40mg Common (Triamcinol (Triamcinol 4-22 S pirit one) one) 00:00: - [facility] 00 [facility] Bupivicaine Bupivicaine 2020-0 No 2.5mg Common [place] 4-22 [facility] 00:00: - [facility] 00 [facility] Hyalgan 20 Hyalgan 20 2020-0 No 20mg C ommon mg mg 4-22 [facility] 00:00: - [facility] 00 [facility] Hyalgan 20 Hyalgan 20 2020-0 No 20mg C ommon mg mg 4-22 [facility] 00:00: - [facility] 00 [facility] Kenal[place] Kenalog 2020-0 No 40mg Common (Triamcinol (Triamcinol 4-22 S pirit one) one) 00:00: - [facility] 00 [facility] Bupivicaine Bupivicaine 2020-0 No 2.5mg Common [place] 4-22 [facility] 00:00: - [facility] 00 [facility] Kenalog Kenalog 2020-0 No 40mg Common (Triamcinol (Triamcinol 4-22 S pirit one) one) 00:00: - [facility] 00 [facility] Bupivicaine Bupivicaine 2020-0 No 2.5mg Common [place] 4-22 [facility] 00:00: - [facility] 00 [facility] Bupivicaine Bupivicaine 2020-0 No 2.5mg Common [place] 4-22 [facility] 00:00: - [facility] 00 [facility] Kenalog Kenalog 2020-0 No 40mg Common (Triamcinol (Triamcinol 4-22 S pirit one) one) 00:00: - [facility] 00 [facility] Bupivicaine Bupivicaine 2020-0 No 2.5mg Common [place] 4-22 [facility] 00:00: - [facility] 00 [facility] Hyalgan 20 Hyalgan 20 2020-0 No 20mg C ommon mg mg 4-22 [facility] 00:00: - [facility] 00 [facility] Hyalgan 20 Hyalgan 20 2020-0 No 20mg C ommon mg mg 4-22 [facility] 00:00: - [facility] 00 [facility] Hyalgan 20 Hyalgan 20 2020-0 No 20mg C ommon mg mg 4-22 [facility] 00:00: - [facility] 00 [facility] Kenalog Kenalog 2020-0 No 40mg Common (Triamcinol (Triamcinol 4-22 S pirit one) one) 00:00: - [facility] 00 [facility] Hyalgan 20 Hyalgan 20 2020-0 No 20mg C ommon mg mg 4-22 [facility] 00:00: - [facility] 00 [facility] Bupivicaine Bupivicaine 2020-0 No 2.5mg Common [place] 4-22 [facility] 00:00: - [facility] 00 [facility] Kenalog Kenalog 2020-0 No 40mg Common (Triamcinol (Triamcinol 4-22 S pirit one) one) 00:00: - [facility] 00 [facility] Bupivicaine Bupivicaine 2020-0 No 2.5mg Common [place] 4-22 [facility] 00:00: - [facility] 00 [facility] Hyalgan 20 Hyalgan 20 2020-0 No 20mg C ommon mg mg 4-22 [facility] 00:00: - [facility] 00 [facility] Kenalog Kenalog 2020-0 No 40mg Common (Triamcinol (Triamcinol 4-22 S pirit one) one) 00:00: - [facility] 00 [facility] Hyalgan 20 Hyalgan 20 2020-0 No 20mg C ommon mg mg 4-22 [facility] 00:00: - [facility] 00 [facility] Bupivicaine Bupivicaine 2020-0 No 2.5mg Common [place] 4-22 [facility] 00:00: - [facility] 00 [facility] Kenalog Kenalog 2020-0 No 40mg Common (Triamcinol (Triamcinol 4-22 S pirit one) one) 00:00: - [facility] 00 [facility] Kenalog Kenalog 2020-0 No 40mg Common (Triamcinol (Triamcinol 4-22 S pirit one) one) 00:00: - [facility] 00 [facility] Bupivicaine Bupivicaine 2020-0 No 2.5mg Common [place] 4-22 [facility] 00:00: - [facility] 00 [facility] Hyalgan 20 Hyalgan 20 2020-0 No 20mg C ommon mg mg 4-22 [facility] 00:00: - [facility] 00 [facility] Kenalog Kenalog 2020-0 No 40mg Common (Triamcinol (Triamcinol 4-22 S pirit one) one) 00:00: - [facility] 00 [facility] Hyalgan 20 Hyalgan 20 2020-0 No 20mg C ommon mg mg 4-22 [facility] 00:00: - [facility] 00 [facility] Bupivicaine Bupivicaine 2020-0 No 2.5mg Common [place] 4-22 [facility] 00:00: - [facility] 00 [facility] Kenalog Kenalog 2020-0 No 40mg Common (Triamcinol (Triamcinol 4-22 S pirit one) one) 00:00: - [facility] 00 [facility] Bupivicaine Bupivicaine 2020-0 No 2.5mg Common [place] 4-22 [facility] 00:00: - [facility] 00 [facility] Hyalgan 20 Hyalgan 20 2020-0 No 20mg C ommon mg mg 4-22 [facility] 00:00: - [facility] 00 [facility] Kenalog Kenalog 2020-0 No 40mg Common (Triamcinol (Triamcinol 4-22 S pirit one) one) 00:00: - [facility] 00 [facility] Hyalgan 20 Hyalgan 20 2020-0 No 20mg C ommon mg mg 4-22 [facility] 00:00: - [facility] 00 [facility] Bupivicaine Bupivicaine 2020-0 No 2.5mg Common [place] 4-22 [facility] 00:00: - [facility] 00 [facility] Kenalog Kenalog 2020-0 No 40mg Common (Triamcinol (Triamcinol 4-22 S pirit one) one) 00:00: - [facility] 00 [facility] Bupivicaine Bupivicaine 2020-0 No 2.5mg Common [place] 4-22 [facility] 00:00: - [facility] 00 [facility] Hyalgan 20 Hyalgan 20 2020-0 No 20mg C ommon mg mg 4-22 [facility] 00:00: - [facility] 00 [facility] Kenalog Kenalog 2020-0 No 40mg Common (Triamcinol (Triamcinol 4-22 S pirit one) one) 00:00: - [facility] 00 [facility] Hyalgan 20 Hyalgan 20 2020-0 No 20mg C ommon mg mg 4-22 [facility] 00:00: - [facility] 00 [facility] Bupivicaine Bupivicaine 2020-0 No 2.5mg Common [place] 4-22 [facility] 00:00: - [facility] 00 [facility] Kenalog Kenalog 2020-0 No 40mg Common (Triamcinol (Triamcinol 4-22 S pirit one) one) 00:00: - [facility] 00 [facility] Bupivicaine Bupivicaine 2020-0 No 2.5mg Common [place] 4-22 [facility] 00:00: - [facility] 00 [facility] Hyalgan 20 Hyalgan 20 2020-0 No 20mg C ommon mg mg 4- [facility] 00:00: - [facility] 00 [facility] Kenalog Kenalog 2020-0 No 40mg Common (Triamcinol (Triamcinol 4-22 S pirit one) one) 00:00: - [facility] 00 [facility] Hyalgan 20 Hyalgan 20 2020-0 No 20mg C ommon mg mg - [facility] 00:00: - [facility] 00 [facility] Bupivicaine Bupivicaine 2020-0 No 2.5mg Common [place] 4-22 [facility] 00:00: - [facility] 00 [facility] Kenal[place] Kenalog 2020-0 No 40mg Common (Triamcinol (Triamcinol 4-22 S pirit one) one) 00:00: - [facility] 00 [facility] Bupivicaine Bupivicaine 2020-0 No 2.5mg Common [place] 4-22 [facility] 00:00: - [facility] 00 [facility] Hyalgan 20 Hyalgan 20 2020-0 No 20mg C ommon mg mg 4-22 [facility] 00:00: - [facility] 00 [facility] Kenalog Kenalog 2020-0 No 40mg Common (Triamcinol (Triamcinol 4-22 S pirit one) one) 00:00: - [facility] 00 [facility] Hyalgan 20 Hyalgan 20 2020-0 No 20mg C ommon mg mg 4-22 [facility] 00:00: - [facility] 00 [facility] Bupivicaine Bupivicaine 2020-0 No 2.5mg Common [place] 4-22 [facility] 00:00: - [facility] 00 [facility] Kenalog Kenalog 2020-0 No 40mg Common (Triamcinol (Triamcinol 4-22 S pirit one) one) 00:00: - [facility] 00 [facility] Bupivicaine Bupivicaine 2020-0 No 2.5mg Common [place] 4-22 [facility] 00:00: - [facility] 00 [facility] Hyalgan 20 Hyalgan 20 2020-0 No 20mg C ommon mg mg 4-22 [facility] 00:00: - [facility] 00 [facility] Kenalog Kenalog 2020-0 No 40mg Common (Triamcinol (Triamcinol 4-22 S pirit one) one) 00:00: - [facility] 00 [facility] Hyalgan 20 Hyalgan 20 2020-0 No 20mg C ommon mg mg 4-22 [facility] 00:00: - [facility] 00 [facility] Bupivicaine Bupivicaine 2020-0 No 2.5mg Common [place] 4-22 [facility] 00:00: - [facility] 00 [facility] Ken[place]og Kenalog 2020-0 No 40mg Common (Triamcinol (Triamcinol 4-22 S pirit one) one) 00:00: - [facility] 00 [facility] Bupivicaine Bupivicaine 2020-0 No 2.5mg Common [place] 4-22 [facility] 00:00: - [facility] 00 [facility] Bupivicaine Bupivicaine 2020-0 No 2.5mg Common [place] 4-22 [facility] 00:00: - [facility] 00 [facility] Hyalgan 20 Hyalgan 20 2020-0 No 20mg C ommon mg mg 4-22 [facility] 00:00: - [facility] 00 [facility] Ken[place] Kenalog 2020-0 No 40mg Common (Triamcinol (Triamcinol 4-22 S pirit one) one) 00:00: - [facility] 00 [facility] Hyalgan 20 Hyalgan 20 2020-0 No 20mg C ommon mg mg 4-22 [facility] 00:00: - [facility] 00 [facility] Ken[place]og Kenalog 2020-0 No 40mg Common (Triamcinol (Triamcinol 4-22 S pirit one) one) 00:00: - [facility] 00 [facility] Bupivicaine Bupivicaine 2020-0 No 2.5mg Common [place] 4-22 [facility] 00:00: - [facility] 00 [facility] Bupivicaine Bupivicaine 2020-0 No 2.5mg Common [place] 4-22 [facility] 00:00: - [facility] 00 [facility] Hyalgan 20 Hyalgan 20 2020-0 No 20mg C ommon mg mg 4-22 [facility] 00:00: - [facility] 00 [facility] Kenalog Kenalog 2020-0 No 40mg Common (Triamcinol (Triamcinol 4-22 S pirit one) one) 00:00: - [facility] 00 [facility] Hyalgan 20 Hyalgan 20 2020-0 No 20mg C ommon mg mg 4-22 [facility] 00:00: - [facility] 00 [facility] Bupivicaine Bupivicaine 2020-0 No 2.5mg [facility] [place] 4-22 [facility] 00:00: - [facility] 00 [facility] Hyalgan 20 Hyalgan 20 2020-0 No 20mg C ommon mg mg 4-22 [facility] 00:00: - [facility] 00 [facility] Kenalog Kenalog 2020-0 No 40mg Common (Triamcinol (Triamcinol 4-22 S pirit one) one) 00:00: - [facility] 00 [facility] Hyalgan 20 Hyalgan 20 2020-0 No 20mg C ommon mg mg 4-22 [facility] 00:00: - [facility] 00 [facility] Ken[place] Kenalog 2020-0 No 40mg Common (Triamcinol (Triamcinol 4-22 S pirit one) one) 00:00: - [facility] 00 [facility] Hyalgan 20 Hyalgan 20 2020-0 No 20mg C ommon mg mg 4-22 [facility] 00:00: - [facility] 00 [facility] Bupivicaine Bupivicaine 2020-0 No 2.5mg [facility] [place] 4-22 [facility] 00:00: - [facility] 00 [facility] Bupivicaine Bupivicaine 2020-0 No 2.5mg Common [place] 4-22 [facility] 00:00: - [facility] 00 [facility] Hyalgan 20 Hyalgan 20 2020-0 No 20mg C ommon mg mg 4-22 [facility] 00:00: - [facility] 00 [facility] Kenalog Kenalog 2020-0 No 40mg Common (Triamcinol (Triamcinol 4-22 S pirit one) one) 00:00: - [facility] 00 [facility] Kenal[place] Kenalog 2020-0 No 40mg Common (Triamcinol (Triamcinol 4-22 S pirit one) one) 00:00: - [facility] 00 [facility] Hyalgan 20 Hyalgan 20 2020-0 No 20mg C ommon mg mg 4-22 [facility] 00:00: - [facility] 00 [facility] Bupivicaine Bupivicaine 2020-0 No 2.5mg [facility] [place] 4[place]22 [facility] 00:00: - [facility] 00 [facility] Bupivicaine Bupivicaine 2020-0 No 2.5mg [facility] [place] 4-22 [facility] 00:00: - [facility] 00 [facility] Kenalog Kenalog 2020-0 No 40mg Common (Triamcinol (Triamcinol 4-22 S pirit one) one) 00:00: - [facility] 00 [facility] Hyalgan 20 Hyalgan 20 2020-0 No 20mg C ommon mg mg 4-22 [facility] 00:00: - [facility] 00 [facility] [place] Kenalog 2020-0 No 40mg Common (Triamcinol (Triamcinol 4-22 S pirit one) one) 00:00: - [facility] 00 [facility] Kenalog Kenalog 2020-0 No 40mg Common (Triamcinol (Triamcinol 4-22 S pirit one) one) 00:00: - [facility] 00 [facility] Hyalgan 20 Hyalgan 20 2020-0 No 20mg C ommon mg mg 4-22 [facility] 00:00: - [facility] 00 [facility] Bupivicaine Bupivicaine 2020-0 No 2.5mg [facility] [place] 4-22 [facility] 00:00: - [facility] 00 [facility] Bupivicaine Bupivicaine 2020-0 No 2.5mg Common [place] 4-22 [facility] 00:00: - [facility] 00 [facility] Hyalgan 20 Hyalgan 20 2020-0 No 20mg C ommon mg mg 4-22 [facility] 00:00: - [facility] 00 [facility] Kenalog Kenalog 2020-0 No 40mg Common (Triamcinol (Triamcinol 4-22 S pirit one) one) 00:00: - [facility] 00 [facility] Bupivicaine Bupivicaine 2020-0 No 2.5mg [facility] [place] 4[place]22 [facility] 00:00: - [facility] 00 [facility] Ken[place] Kenalog 2020-0 No 40mg Common (Triamcinol (Triamcinol 4-22 S pirit one) one) 00:00: - [facility] 00 [facility] Bupivicaine Bupivicaine 2020-0 No 2.5mg [facility] [place] 4-22 [facility] 00:00: - [facility] 00 [facility] Hyalgan 20 Hyalgan 20 2020-0 No 20mg C ommon mg mg 4-22 [facility] 00:00: - [facility] 00 [facility] Hyalgan 20 Hyalgan 20 2020-0 No 20mg C ommon mg mg 4-22 [facility] 00:00: - [facility] 00 [facility] Ken[place] Kenalog 2020-0 No 40mg Common (Triamcinol (Triamcinol 4-22 S pirit one) one) 00:00: - [facility] 00 [facility] Bupivicaine Bupivicaine 2020-0 No 2.5mg [facility] [place] 4[place]22 [facility] 00:00: - [facility] 00 [facility] Ken[place] Kenalog 2020-0 No 40mg Common (Triamcinol (Triamcinol 4-22 S pirit one) one) 00:00: - [facility] 00 [facility] Bupivicaine Bupivicaine 2020-0 No 2.5mg [facility] [place] 4[place]22 [facility] 00:00: - [facility] 00 [facility] Hyalgan 20 Hyalgan 20 2020-0 No 20mg C ommon mg mg 4-22 [facility] 00:00: - [facility] 00 [facility] Hyalgan 20 Hyalgan 20 2020-0 No 20mg C ommon mg mg 4-22 [facility] 00:00: - [facility] 00 [facility] Ken[place] Kenalog 2020-0 No 40mg Common (Triamcinol (Triamcinol 4-22 S pirit one) one) 00:00: - [facility] 00 [facility] Kenalog Kenalog 2020-0 No 40mg Common (Triamcinol (Triamcinol 4-22 S pirit one) one) 00:00: - CHI 00 [facility] Hyalgan 20 Hyalgan 20 2020-0 No 20mg C ommon mg mg 4-22 Spirit 00:00: - CHI 00 [facility] Bupivicaine Bupivicaine 2020-0 No [place] 4[place]22 [facility] 00:00: - [facility]I 00 [facility] Bupivicaine Bupivicaine 2020-0 No Common [place] 4-22 Spirit 00:00: - CHI 00 [facility] Kenalog Kenalog 2020-0 No 40mg Common (Triamcinol (Triamcinol 4-22 S pirit one) one) 00:00: - CHI 00 [facility] Hyalgan 20 Hyalgan 20 2020-0 No 20mg C ommon mg mg 4-22 Spirit 00:00: - CHI 00 [facility] Kenalog Kenalog 2020-0 No 40mg Common (Triamcinol (Triamcinol 4-22 S pirit one) one) 00:00: - CHI 00 [facility] Hyalgan 20 Hyalgan 20 2020-0 No 20mg C ommon mg mg 4-22 Spirit 00:00: - CHI 00 [facility] Bupivicaine Bupivicaine 2020-0 No Common [place] 4-22 [facility] 00:00: - [facility]I 00 [facility] Bupivicaine Bupivicaine 2020-0 No Common [place] 4-22 Spirit 00:00: - [facility]I 00 [facility] Kenalog Kenalog 2020-0 No 40mg Common (Triamcinol (Triamcinol 4-22 S pirit one) one) 00:00: - CHI 00 [facility] Hyalgan 20 Hyalgan 20 2020-0 No 20mg C ommon mg mg 4-22 Spirit 00:00: - CHI 00 [facility] Kenalog Kenalog 2020-0 No 40mg Common (Triamcinol (Triamcinol 4-22 S pirit one) one) 00:00: - CHI 00 [facility] Hyalgan 20 Hyalgan 20 2020-0 No 20mg C ommon mg mg 4-22 Spirit 00:00: - CHI 00 [facility] Bupivicaine Bupivicaine 2020-0 No Common [place] 4-22 [facility] 00:00: - [facility]I 00 [facility] Bupivicaine Bupivicaine 2020-0 No Common [place] 4-22 Spirit 00:00: - CHI 00 [facility] Kenalog Kenalog 2020-0 No 40mg Common (Triamcinol (Triamcinol 4-22 S pirit one) one) 00:00: - CHI 00 [facility] Hyalgan 20 Hyalgan 20 2020-0 No 20mg C ommon mg mg 4-22 Spirit 00:00: - CHI 00 [facility] Kenalog Kenalog 2020-0 No 40mg Common (Triamcinol (Triamcinol 4-22 S pirit one) one) 00:00: - CHI 00 [facility] Hyalgan 20 Hyalgan 20 2020-0 No 20mg C ommon mg mg 4-22 Spirit 00:00: - CHI 00 [facility] Bupivicaine Bupivicaine 2020-0 No Common [place] 4-22 Spirit 00:00: - [facility]I 00 [facility] Bupivicaine Bupivicaine 2020-0 No Common [place] 4-22 Spirit 00:00: - CHI 00 [facility] Kenalog Kenalog 2020-0 No 40mg Common (Triamcinol (Triamcinol 4-22 S pirit one) one) 00:00: - CHI 00 [facility] Hyalgan 20 Hyalgan 20 2020-0 No 20mg C ommon mg mg 4-22 Spirit 00:00: - CHI 00 [facility] Kenalog Kenalog 2020-0 No 40mg Common (Triamcinol (Triamcinol 4-22 S pirit one) one) 00:00: - CHI 00 [facility] Hyalgan 20 Hyalgan 20 2020-0 No 20mg C ommon mg mg 4-22 Spirit 00:00: - CHI 00 [facility] Bupivicaine Bupivicaine 2020-0 No 2.5mg Common [place] 4-22 Spirit 00:00: - [facility]I 00 [facility] Bupivicaine Bupivicaine 2020-0 No 2.5mg Common [place] 4-22 Spirit 00:00: - CHI 00 [facility] Kenalog Kenalog 2020-0 No 40mg Common (Triamcinol (Triamcinol 4-22 S pirit one) one) 00:00: - CHI 00 [facility] Hyalgan 20 Hyalgan 20 2020-0 No 20mg C ommon mg mg 4-22 Spirit 00:00: - CHI 00 [facility] Kenalog Kenalog 2020-0 No 40mg Common (Triamcinol (Triamcinol 4-22 S pirit one) one) 00:00: - CHI 00 [facility] Hyalgan 20 Hyalgan 20 2020-0 No 20mg C ommon mg mg 4-22 Spirit 00:00: - CHI 00 [facility] Bupivicaine Bupivicaine 2020-0 No 2.5mg Common [place] 4-22 Spirit 00:00: - CHI 00 [facility] Bupivicaine Bupivicaine 2020-0 No 2.5mg Common [place] 4-22 Spirit 00:00: - CHI 00 [facility] Kenalog Kenalog 2020-0 No 40mg Common (Triamcinol (Triamcinol 4-22 S pirit one) one) 00:00: - CHI 00 [facility] Hyalgan 20 Hyalgan 20 2020-0 No 20mg C ommon mg mg 4-22 Spirit 00:00: - CHI 00 [facility] Kenalog Kenalog 2020-0 No 40mg Common (Triamcinol (Triamcinol 4-22 S pirit one) one) 00:00: - CHI 00 [facility] Hyalgan 20 Hyalgan 20 2020-0 No 20mg C ommon mg mg 4-22 Spirit 00:00: - CHI 00 [facility] Bupivicaine Bupivicaine 2020-0 No 2.5mg Common [place] 4-22 Spirit 00:00: - CHI 00 [facility] Bupivicaine Bupivicaine 2020-0 No 2.5mg Common [place] 4-22 Spirit 00:00: - CHI 00 [facility] Kenalog Kenalog 2020-0 No 40mg Common (Triamcinol (Triamcinol 4-22 S pirit one) one) 00:00: - CHI 00 [facility] Hyalgan 20 Hyalgan 20 2020-0 No 20mg C ommon mg mg 4 Spirit 00:00: - CHI 00 [facility] Kenalog Kenalog 2020-0 No 40mg Common (Triamcinol (Triamcinol 4-22 S pirit one) one) 00:00: - CHI 00 [facility] Hyalgan 20 Hyalgan 20 2020-0 No 20mg C ommon mg mg - Spirit 00:00: - CHI 00 [facility] Bupivicaine Bupivicaine 2020-0 No 2.5mg Common [place] 4-22 Spirit 00:00: - CHI 00 [facility] Bupivicaine Bupivicaine 2020-0 No 2.5mg Common [place] 4-22 Spirit 00:00: - CHI 00 [facility] Kenalog Kenalog 2020-0 No 40mg Common (Triamcinol (Triamcinol 4-22 S pirit one) one) 00:00: - CHI 00 [facility] Hyalgan 20 Hyalgan 20 2020-0 No 20mg C ommon mg mg 4- Spirit 00:00: - CHI 00 [facility] Kenalog Kenalog 2020-0 No 40mg Common (Triamcinol (Triamcinol 4-22 S pirit one) one) 00:00: - CHI 00 [facility] Hyalgan 20 Hyalgan 20 2020-0 No 20mg C ommon mg mg 4-22 Spirit 00:00: - CHI 00 [facility] Bupivicaine Bupivicaine 2020-0 No 2.5mg Common [place] 4-22 Spirit 00:00: - CHI 00 [facility] Bupivicaine Bupivicaine 2020-0 No 2.5mg Common [place] 4-22 Spirit 00:00: - CHI 00 [facility] Kenalog Kenalog 2020-0 No 40mg Common (Triamcinol (Triamcinol 4-22 S pirit one) one) 00:00: - CHI 00 [facility] Hyalgan 20 Hyalgan 20 2020-0 No 20mg C ommon mg mg 4-22 Spirit 00:00: - CHI 00 [facility] Kenalog Kenalog 2020-0 No 40mg Common (Triamcinol (Triamcinol 4-22 S pirit one) one) 00:00: - CHI 00 [facility] Hyalgan 20 Hyalgan 20 2020-0 No 20mg C ommon mg mg 4-22 Spirit 00:00: - CHI 00 [facility] Hyalgan 20 Hyalgan 20 2020-0 No 20mg C ommon mg mg 4-22 Spirit 00:00: - CHI 00 [facility] Bupivicaine Bupivicaine 2020-0 No 2.5mg Common [place] 4-22 [facility] 00:00: - CHI 00 [facility] Bupivicaine Bupivicaine 2020-0 No 2.5mg Common [place] 4-22 [facility] 00:00: - CHI 00 [facility] Kenalog Kenalog 2020-0 No 40mg Common (Triamcinol (Triamcinol 4-22 S pirit one) one) 00:00: - CHI 00 [facility] Kenalog Kenalog 2020-0 No 40mg Common (Triamcinol (Triamcinol 4-22 S pirit one) one) 00:00: - CHI 00 [facility] Hyalgan 20 Hyalgan 20 2020-0 No 20mg C ommon mg mg 4-22 Spirit 00:00: - CHI 00 [facility] Hyalgan 20 Hyalgan 20 2020-0 No 20mg C ommon mg mg 4-22 Spirit 00:00: - CHI 00 [facility] Bupivicaine Bupivicaine 2020-0 No 2.5mg Common [place] 4-22 Spirit 00:00: - CHI 00 [facility] Bupivicaine Bupivicaine 2020-0 No 2.5mg Common [place] 4-22 Spirit 00:00: - CHI 00 [facility] Kenalog Kenalog 2020-0 No 40mg Common (Triamcinol (Triamcinol 4-22 S pirit one) one) 00:00: - CHI 00 [facility] Bupivicaine Bupivicaine 2020-0 No 2.5mg Common [place] 4-22 Spirit 00:00: - CHI 00 [facility] Kenalog Kenalog 2020-0 No 40mg Common (Triamcinol (Triamcinol 4-22 S pirit one) one) 00:00: - CHI 00 [facility] Bupivicaine Bupivicaine 2020-0 No 2.5mg Common [place] 4-22 Spirit 00:00: - CHI 00 [facility] Hyalgan 20 Hyalgan 20 2020-0 No 20mg C ommon mg mg 4-22 Spirit 00:00: - CHI 00 [facility] Hyalgan 20 Hyalgan 20 2020-0 No 20mg C ommon mg mg 4-22 Spirit 00:00: - CHI 00 [facility] Kenalog Kenalog 2020-0 No 40mg Common (Triamcinol (Triamcinol 4-22 S pirit one) one) 00:00: - CHI 00 [facility] Bupivicaine Bupivicaine 2020-1 No 2.5mg Common [place] 2-31 Spirit 00:00: - CHI 00 [facility] Kenalog Kenalog 2020-1 No 40mg Common (Triamcinol (Triamcinol 2-31 S pirit one) one) 00:00: - CHI 00 [facility] Bupivicaine Bupivicaine 2020-1 No 2.5mg Common [place] 2-31 Spirit 00:00: - CHI 00 [facility] Kenalog Kenalog 2020-1 No 40mg Common (Triamcinol (Triamcinol 2-31 S pirit one) one) 00:00: - CHI 00 [facility] Bupivicaine Bupivicaine 2020-1 No 2.5mg Common [place] 2-31 Spirit 00:00: - CHI 00 [facility] Kenalog Kenalog 2020-1 No 40mg Common (Triamcinol (Triamcinol 2-31 S pirit one) one) 00:00: - CHI 00 [facility] Bupivicaine Bupivicaine 2020- No 2.5mg Common [place] 2-31 Spirit 00:00: - CHI 00 [facility] Kenalog Kenalog 2019- No 40mg Common (Triamcinol (Triamcinol 2-31 S pirit one) one) 00:00: - CHI 00 [facility] Bupivicaine Bupivicaine 2019- No 2.5mg Common [place] 2-31 Spirit 00:00: - CHI 00 [facility] Kenalog Kenalog 2019- No 40mg Common (Triamcinol (Triamcinol 2-31 S pirit one) one) 00:00: - CHI 00 [facility] Bupivicaine Bupivicaine 2019- No 2.5mg Common [place] 2-31 Spirit 00:00: - CHI 00 [facility] Kenalog Kenalog 2019- No 40mg Common (Triamcinol (Triamcinol 2-31 S pirit one) one) 00:00: - CHI 00 [facility] Bupivicaine Bupivicaine 2019- No 2.5mg Common [place] 2-31 Spirit 00:00: - CHI 00 [facility] Kenalog Kenalog 2019- No 40mg Common (Triamcinol (Triamcinol 2-31 S pirit one) one) 00:00: - CHI 00 [facility] Bupivicaine Bupivicaine 2019-1 No 2.5mg Common [place] 2-31 Spirit 00:00: - CHI 00 [facility] Kenalog Kenalog 2019- No 40mg Common (Triamcinol (Triamcinol 2-31 S pirit one) one) 00:00: - CHI 00 [facility] Bupivicaine Bupivicaine 2020-1 No 2.5mg Common [place] 2-31 Spirit 00:00: - CHI 00 [facility] Kenalog Kenalog 2019- No 40mg Common (Triamcinol (Triamcinol 2-31 S pirit one) one) 00:00: - CHI 00 [facility] Bupivicaine Bupivicaine 2020-1 No 2.5mg Common [place] 2-31 Spirit 00:00: - CHI 00 [facility] Kenalog Kenalog 2019- No 40mg Common (Triamcinol (Triamcinol 2-31 S pirit one) one) 00:00: - CHI 00 [facility] Bupivicaine Bupivicaine 2020-1 No 2.5mg Common [place] 2-31 Spirit 00:00: - CHI 00 [facility] Kenalog Kenalog 2019- No 40mg Common (Triamcinol (Triamcinol 2-31 S pirit one) one) 00:00: - CHI 00 [facility] Bupivicaine Bupivicaine 2020-1 No 2.5mg Common [place] 2-31 Spirit 00:00: - CHI 00 [facility] Kenalog Kenalog 2019- No 40mg Common (Triamcinol (Triamcinol 2-31 S pirit one) one) 00:00: - CHI 00 [facility] Bupivicaine Bupivicaine 2020-1 No 2.5mg Common [place] 2-31 Spirit 00:00: - CHI 00 [facility] Kenalog Kenalog 2019-1 No 40mg Common (Triamcinol (Triamcinol 2-31 S pirit one) one) 00:00: - CHI 00 [facility] Bupivicaine Bupivicaine 2020-1 No 2.5mg Common [place] 2-31 Spirit 00:00: - CHI 00 [facility] Kenalog Kenalog 2020- No 40mg Common (Triamcinol (Triamcinol 2-31 S pirit one) one) 00:00: - CHI 00 [facility] Bupivicaine Bupivicaine 2020-1 No 2.5mg Common [place] 2-31 [facility] 00:00: - CHI 00 [facility] Kenalog Kenalog 2020-1 No 40mg Common (Triamcinol (Triamcinol 2-31 S pirit one) one) 00:00: - CHI 00 [facility] Bupivicaine Bupivicaine 2020-1 No 2.5mg Common [place] 2-31 [facility] 00:00: - CHI 00 [facility] Kenalog Kenalog 2019- No 40mg Common (Triamcinol (Triamcinol 2-31 S pirit one) one) 00:00: - CHI 00 [facility] Bupivicaine Bupivicaine 2019- No 2.5mg Common [place] 2-31 [facility] 00:00: - CHI 00 [facility] Kenalog Kenalog 2019- No 40mg Common (Triamcinol (Triamcinol 2-31 S pirit one) one) 00:00: - CHI 00 [facility] Bupivicaine Bupivicaine 2019- No 2.5mg Common [place] 2-31 [facility] 00:00: - CHI 00 [facility] Kenalog Kenalog 2019- No 40mg Common (Triamcinol (Triamcinol 2-31 S pirit one) one) 00:00: - CHI 00 [facility] Bupivicaine Bupivicaine 2019- No 2.5mg Common [place] 2-31 [facility] 00:00: - CHI 00 [facility] Kenalog Kenalog 2019- No 40mg Common (Triamcinol (Triamcinol 2-31 S pirit one) one) 00:00: - CHI 00 [facility] Kenalog Kenalog 2019- No 40mg Common (Triamcinol (Triamcinol 2-31 S pirit one) one) 00:00: - CHI 00 [facility] Bupivicaine Bupivicaine 2019- No 2.5mg Common [place] 2-31 [facility] 00:00: - CHI 00 [facility] Kenalog Kenalog 2019- No 40mg Common (Triamcinol (Triamcinol 2-31 S pirit one) one) 00:00: - CHI 00 [facility] Bupivicaine Bupivicaine 2020- No 2.5mg Common [place] 2-31 Spirit 00:00: - CHI 00 [facility] Kenalog Kenalog 2019- No 40mg Common (Triamcinol (Triamcinol 2-31 S pirit one) one) 00:00: - CHI 00 [facility] Bupivicaine Bupivicaine 2019-1 No 2.5mg Common [place] 2-31 Spirit 00:00: - CHI 00 [facility] Bupivicaine Bupivicaine 2020-1 No 2.5mg Common [place] 2-31 [facility] 00:00: - CHI 00 [facility] Kenalog Kenalog 2019- No 40mg Common (Triamcinol (Triamcinol 2-31 S pirit one) one) 00:00: - CHI 00 [facility] Bupivicaine Bupivicaine 2019- No 2.5mg Common [place] 2-31 [facility] 00:00: - CHI 00 [facility] Kenalog Kenalog 2019- No 40mg Common (Triamcinol (Triamcinol 2-31 S pirit one) one) 00:00: - CHI 00 [facility] Bupivicaine Bupivicaine 2019- No 2.5mg Common [place] 2-31 [facility] 00:00: - CHI 00 [facility] Kenalog Kenalog 2019- No 40mg Common (Triamcinol (Triamcinol 2-31 S pirit one) one) 00:00: - CHI 00 [facility] Bupivicaine Bupivicaine 2019- No 2.5mg Common [place] 2-31 [facility] 00:00: - CHI 00 [facility] Kenalog Kenalog 2019- No 40mg Common (Triamcinol (Triamcinol 2-31 S pirit one) one) 00:00: - CHI 00 [facility] Bupivicaine Bupivicaine 2019- No 2.5mg Common [place] 2-31 [facility] 00:00: - CHI 00 [facility] Kenalog Kenalog 2019- No 40mg Common (Triamcinol (Triamcinol 2-31 S pirit one) one) 00:00: - CHI 00 [facility] Bupivicaine Bupivicaine 2020- No 2.5mg Common [place] 2-31 [facility] 00:00: - CHI 00 [facility] Kenalog Kenalog 2019- No 40mg Common (Triamcinol (Triamcinol 2-31 S pirit one) one) 00:00: - CHI 00 [facility] Kenalog Kenalog 2019-1 No 40mg Common (Triamcinol (Triamcinol 2-31 S pirit one) one) 00:00: - CHI 00 [facility] Bupivicaine Bupivicaine 2020- No [place] 2-31 [facility] 00:00: - CHI 00 [facility] Kenalog Kenalog 2019-08 No 40mg Common (Triamcinol (Triamcinol 2-31 S pirit one) one) 00:00: - CHI 00 [facility] Bupivicaine Bupivicaine 2019- No [place] 2-31 [facility] 00:00: - CHI 00 [facility] Kenalog Kenalog 2019- No 40mg Common (Triamcinol (Triamcinol 2-31 S pirit one) one) 00:00: - CHI 00 [facility] Bupivicaine Bupivicaine 2019- No [place] 2-31 [facility] 00:00: - CHI 00 [facility] Kenalog Kenalog 2019-08 No 40mg Common (Triamcinol (Triamcinol 2-31 S pirit one) one) 00:00: - CHI 00 [facility] Bupivicaine Bupivicaine 2019- No [place] 2-31 [facility] 00:00: - CHI 00 [facility] Kenalog Kenalog 2019- No 40mg Common (Triamcinol (Triamcinol 2-31 S pirit one) one) 00:00: - CHI 00 [facility] Bupivicaine Bupivicaine 2019- No 2.5mg Common [place] 2-31 [facility] 00:00: - CHI 00 [facility] Kenalog Kenalog 2019- No 40mg Common (Triamcinol (Triamcinol 2-31 S pirit one) one) 00:00: - CHI 00 [facility] Bupivicaine Bupivicaine 2019- No 2.5mg Common [place] 2-31 [facility] 00:00: - CHI 00 [facility] Kenalog Kenalog 2019- No 40mg Common (Triamcinol (Triamcinol 2-31 S pirit one) one) 00:00: - CHI 00 [facility] Bupivicaine Bupivicaine 2019- No 2.5mg Common [place] 2-31 [facility] 00:00: - CHI 00 [facility] Kenalog Kenalog 2020-1 No 40mg Common (Triamcinol (Triamcinol 2-31 S pirit one) one) 00:00: - CHI 00 [facility] Bupivicaine Bupivicaine 2020-1 No 2.5mg Common [place] 2[place]31 [facility] 00:00: - CHI 00 [facility] Kenalog Kenalog 2020- No 40mg Common (Triamcinol (Triamcinol 2-31 S pirit one) one) 00:00: - CHI 00 [facility] Bupivicaine Bupivicaine 2020-1 No 2.5mg Common [place] 2[place]31 [facility] 00:00: - CHI 00 [facility] Kenalog Kenalog 2020- No 40mg Common (Triamcinol (Triamcinol 2-31 S pirit one) one) 00:00: - CHI [facility] Bupivicaine Bupivicaine 2020-1 No 2.5mg Common [place] 2-31 [facility] 00:00: - CHI 00 [facility] Bupivicaine Bupivicaine 2020-1 No 2.5mg Common [place] 2-31 [facility] 00:00: - CHI 00 [facility] Kenalog Kenalog 2020- No 40mg Common (Triamcinol (Triamcinol 2-31 S pirit one) one) 00:00: - CHI [facility] Bupivicaine Bupivicaine 2020-1 No 2.5mg [place] 2[place]31 [facility] 00:00: - CHI 00 [facility] Kenalog Kenalog 2020- No 40mg Common (Triamcinol (Triamcinol 2-31 S pirit one) one) 00:00: - CHI 00 [facility] Amlodipine Amlodipine 2020-0 Yes Jun 1 tablet Common Besylate Besylate 6-25 [facility] 00:00: evening - [facility] Citalopram Citalopram 2020-0 Yes Jun 1 tablet Common Hydrobromid Hydrobromid 6-23 [facility] e 00:00: - [facility] Restoril Restoril 2020-0 Yes Jun 1 capsule Common 6-23 [facility] at bedtime Spirit 00:00: as needed - [facility]I 00 [facility] Vitamin Vitamin 2020-0 Yes Jun 2 tablet C ommon D-1000 Max D-1000 Max 5-[address] 00:00: - CHI 00 [facility] Vitamin Vitamin 2020-0 No 2{table QD Vitamin [...] pirit one) one) 00:00: - CHI 00 [facility] Kenalog Kenalog 2020-0 No 40mg Common (Triamcinol (Triamcinol 3-12 S pirit one) one) 00:00: - CHI 00 [facility] Kenalog Kenalog 2020-0 No 40mg Common (Triamcinol (Triamcinol 3-12 S pirit one) one) 00:00: - CHI 00 [facility] Kenalog Kenalog 2020-0 No 40mg Common (Triamcinol (Triamcinol 3-12 S pirit one) one) 00:00: - CHI 00 [facility] Kenalog Kenalog 2020-0 No 40mg Common (Triamcinol (Triamcinol 3-12 S pirit one) one) 00:00: - CHI 00 [facility] Kenalog Kenalog 2020-0 No 40mg Common (Triamcinol (Triamcinol 3-12 S pirit one) one) 00:00: - CHI 00 [facility] Kenalog Kenalog 2020-0 No 40mg Common (Triamcinol (Triamcinol 3-12 S pirit one) one) 00:00: - CHI 00 [facility] Kenalog Kenalog 2020-0 No 40mg Common (Triamcinol (Triamcinol 3-12 S pirit one) one) 00:00: - CHI 00 [facility] Kenalog Kenalog 2020-0 No 40mg Common (Triamcinol (Triamcinol 3-12 S pirit one) one) 00:00: - CHI 00 [facility] Kenalog Kenalog 2020-0 No 40mg Common (Triamcinol (Triamcinol 3-12 S pirit one) one) 00:00: - CHI 00 [facility] Kenalog Kenalog 2020-0 No 40mg Common (Triamcinol (Triamcinol 3-12 S pirit one) one) 00:00: - CHI 00 [facility] Kenalog Kenalog 2020-0 No 40mg Common (Triamcinol (Triamcinol 3-12 S pirit one) one) 00:00: - CHI 00 [facility] Kenalog Kenalog 2020-0 No 40mg Common (Triamcinol (Triamcinol 3-12 S pirit one) one) 00:00: - CHI 00 [facility] Kenalog Kenalog 2020-0 No 40mg Common (Triamcinol (Triamcinol 3-12 S pirit one) one) 00:00: - CHI 00 [facility] Kenalog Kenalog 2020-0 No 40mg Common (Triamcinol (Triamcinol 3-12 S pirit one) one) 00:00: - CHI 00 [facility] Kenalog Kenalog 2020-0 No 40mg Common (Triamcinol (Triamcinol 3-12 S pirit one) one) 00:00: - CHI 00 [facility] Kenalog Kenalog 2020-0 No 40mg Common (Triamcinol (Triamcinol 3-12 S pirit one) one) 00:00: - CHI 00 [facility] Kenalog Kenalog 2020-0 No 40mg Common (Triamcinol (Triamcinol 3-12 S pirit one) one) 00:00: - CHI 00 [facility] Kenalog Kenalog 2020-0 No 40mg Common (Triamcinol (Triamcinol 3-12 S pirit one) one) 00:00: - CHI 00 [facility] Kenalog Kenalog 2020-0 No 40mg Common (Triamcinol (Triamcinol 3-12 S pirit one) one) 00:00: - CHI 00 [facility] Kenalog Kenalog 2020-0 No 40mg Common (Triamcinol (Triamcinol 3-12 S pirit one) one) 00:00: - CHI 00 [facility] Kenalog Kenalog 2020-0 No 40mg Common (Triamcinol (Triamcinol 3-12 S pirit one) one) 00:00: - CHI 00 [facility] Kenalog Kenalog 2020-0 No 40mg Common (Triamcinol (Triamcinol 3-12 S pirit one) one) 00:00: - CHI 00 [facility] Kenalog Kenalog 2020-0 No 40mg Common (Triamcinol (Triamcinol 3-12 S pirit one) one) 00:00: - CHI 00 [facility] Kenalog Kenalog 2020-0 No 40mg Common (Triamcinol (Triamcinol 3-12 S pirit one) one) 00:00: - CHI 00 [facility] Kenalog Kenalog 2020-0 No 40mg Common (Triamcinol (Triamcinol 3-12 S pirit one) one) 00:00: - CHI 00 [facility] Kenalog Kenalog 2020-0 No 40mg Common (Triamcinol (Triamcinol 3-12 S pirit one) one) 00:00: - CHI 00 [facility] Kenalog Kenalog 2020-0 No 40mg Common (Triamcinol (Triamcinol 3-12 S pirit one) one) 00:00: - [facility] 00 [facility] Kenalog Kenalog 2020-0 No 40mg Common (Triamcinol (Triamcinol 3-12 S pirit one) one) 00:00: - [facility] 00 [facility] Kenalog Kenalog 2020-0 No 40mg [facility] (Triamcinol (Triamcinol 3-12 S pirit one) one) 00:00: - [facility] 00 [facility] Kenalog Kenalog 2020-0 No 40mg [facility] (Triamcinol (Triamcinol 3-12 S pirit one) one) 00:00: - [facility] 00 [facility] Kenalog Kenalog 2020-0 No 40mg [facility] (Triamcinol (Triamcinol 3-12 S pirit one) one) 00:00: - [facility] 00 [facility] Kenalog Kenalog 2020-0 No 40mg [facility] (Triamcinol (Triamcinol 3-12 S pirit one) one) 00:00: - [facility] 00 [facility] Kenalog Kenalog 2020-0 No 40mg [facility] (Triamcinol (Triamcinol 3-12 S pirit one) one) 00:00: - [facility] 00 [facility] Kenalog Kenalog 2020-0 No 40mg [facility] (Triamcinol (Triamcinol 3-12 S pirit one) one) 00:00: - [facility] 00 [facility] Kenalog Kenalog 2020-0 No 40mg [facility] (Triamcinol (Triamcinol 3-12 S pirit one) one) 00:00: - [facility] 00 [facility] Kenalog Kenalog 2020-0 No 40mg [facility] (Triamcinol (Triamcinol 3-12 S pirit one) one) 00:00: - [facility] 00 [facility] Kenalog Kenalog 2020-0 No 40mg [facility] (Triamcinol (Triamcinol 3-12 S pirit one) one) 00:00: - [facility] 00 [facility] Kenalog Kenalog 2020-0 No 40mg [facility] (Triamcinol (Triamcinol 3-12 S pirit one) one) 00:00: - [facility] 00 [facility] Kenalog Kenalog 2019-0 No 40mg [facility] (Triamcinol (Triamcinol 3-12 S pirit one) one) 00:00: - [facility] 00 [facility] Aspirin 325 No Notes: (Do Memoria MG Enteric 9-14 Not Crush) l Coated 14:00: Do not [place] Tablet 00 crush or chew. Aspirin 325 No Notes: (Do [facility] MG Enteric 9-14 Not Crush) l Coated 14:00: Do not [place] Tablet 00 crush or chew. Aspirin 325 No Notes: (Do [facility] MG Enteric 9-14 Not Crush) l Coated 14:00: Do not [place] Tablet 00 crush or chew. Saline No Notes: Mem[facility] Flush 0.9% 9-14 (Same as: l 02:00: BD [place] 00 Posiflush) Saline No Notes: [facility] Flush 0.9% 9-14 (Same as: l 02:00: BD [place] 00 Posiflush) Saline No Notes: Memoria Flush [...] oria 9-13 IV push l 20:05: reconstitu [place] 00 te with 10 ml 0.9% sodium chloride and push over 2 minutes. (Same as: Protonix) Protonix No Notes: For Mem oria - IV push l 20:05: reconstitu te with 10 ml 0.9% sodium chloride and push over 2 minutes. (Same as: Protonix) Nicotine No Notes: Memoria 9-13 (Same as: l 19:34: Habitrol) "Remove old patch before applicatio n of new patch" WASTE: F/P - P Waste Black; E - P Waste Black Nicotine No Notes: Memoria 9-13 (Same as: l 19:34: Habitrol) [place] 00 "Remove old patch before applicatio n of new patch" WASTE: F/P - P Waste Black; E - P Waste Black Nicotine No Notes: Memoria 9-13 (Same as: l 19:34: Habitrol) "Remove old [...] crush 24 HR No Notes: [facility]oria Nifedipine 9-13 (Same as: l 90 MG 19:32: Adalat CC, Gallo n Extended 00 Procardia Release XL) Give Tablet on empty [Procardia] stomach. Take 1 hour before or 2 hours after meal; "Avoid grapefruit and grapefruit juice". Do not crush 24 HR No Notes: [facility] Nifedipine 9-13 [...] 0.9% 04-15 (Same as: l 18:45: BD [place] 00 Posiflush) Ondansetron No Notes: Abdiel princess 04-15 (Same as: l 18:45: Zofran) [place] 00 Acetaminoph No Notes: Do M emoria en 04-15 not exceed l 18:45: 4 gm/day. [place] 00 (Same as: Tylenol) Acetaminoph No Notes: Abdiel princess en 325 MG / 04-15 (Same as: l Hydrocodone 18:45: Hoopa Kamini nn Bitartrate 00 325/5) Do 5 MG Oral not exceed Tablet 4gm/day of acetaminop hen. Morphine No Notes: Memoria 04-15 (Same l 18:45: as:MORPhin [place] 00 e Sulfate) metoprolol No Notes: Memor ia tartrate 04-15 (Same as: l 18:45: Lopressor) Hydralazine No Notes: Abdiel princess 04-15 (Same as: l 18:45: Apresoline ) Push over 5 minutes Saline No Notes: [facility] Flush 0.9% 04-15 (Same as: l 18:45: BD [place] Posiflush) Ondansetron No Notes: Abdiel princess 04-15 (Same as: l 18:45: Zofran) Acetaminoph No Notes: Do M emoria en 04-15 not exceed l 18:45: 4 gm/day. [place] 00 (Same as: Tylenol) Acetaminoph No Notes: Abdiel princess en 325 MG / 04-15 (Same as: l Hydrocodone 18:45: [place] Kamini nn Bitartrate 00 325/5) Do 5 MG Oral not exceed Tablet 4gm/day of acetaminop hen. Morphine No Notes: Memoria 04-15 (Same l 18:45: as:MORPhin [place] 00 e Sulfate) metoprolol No Notes: Memor ia tartrate 04-15 (Same as: l 18:45: Lopressor) [place] 00 Nitroglycer No Notes: Abdiel princess in 04-15 (Same l 18:45: as:Nitroqu [place] 00 ick, Nitrostat) "Do Not Crush" Sublingual tablet Lisinopril No Notes: Memor ia 04-15 (Same as: l 18:45: Prinivil, [place] Zestril) Nitroglycer No Notes: Abdiel princess in 04-15 (Same l 18:45: as:Nitroqu [place] ick, Nitrostat) "Do Not Crush" Sublingual tablet Lisinopril No Notes: Memor ia 04-15 (Same as: l 18:45: Prinivil, [place] 00 Zestril) Hydralazine No Notes: Abdiel princess 04-15 [...] / 04-15 (Same as: l Hydrocodone 18:45: Ho[place] Kamini nn Bitartrate 00 325/5) Do 5 MG Oral not exceed Tablet 4gm/day of acetaminop hen. Morphine No Notes: Memoria 04-15 (Same l 18:45: as:MORPhin e Sulfate) metoprolol No Notes: Memor ia tartrate 04-15 (Same as: l 18:45: Lopressor) Nitroglycer No Notes: Abdiel princess in 04-15 (Same l 18:45: as:Nitroqu [place] ick, Nitrostat) "Do Not Crush" Sublingual tablet Lisinopril No Notes: Memor ia 04-15 (Same as: l 18:45: Prinivil, [place] 00 Zestril) Dilaudid No 1 mg, Memoria 04-15 Route: l 18:32: IVP, ONCE, Dosing Weight 82, kg, Priority: STAT, Start date: 04/15/18 13:32:00 CDT, Stop date: 04/15/18 13:32:00 CDT Dilaudid 2018-0 No 1 mg, Memoria 04-15 Route: l 18:32: IVP, ONCE, Dosing Weight 82, kg, Priority: STAT, Start date: 04/15/18 13:32:00 CDT, Stop date: 04/15/18 13:32:00 CDT Dilaudid 2018-0 No 1 mg, Memoria 04-15 Route: l 18:32: IVP, ONCE, Dosing Weight 82, kg, Priority: STAT, Start date: 04/15/18 13:32:00 CDT, Stop date: 04/15/18 13:32:00 CDT Nitroglycer 2018-0 No 1 inch, Mem [...] 04-15 Route: l MG/MG 17:32: TOP, Drug [place] Topical 00 Form: Ointment OINT, Dosing Weight 82, kg, ONCE, Start date: 04/15/18 12:32:00 CDT, Stop date: 04/15/18 12:32:00 CDT Ondansetron 2018-0 No 4 mg, Memor ia 04-15 Route: l 17:31: IVP, Drug [place] 00 form: INJ, ONCE, Dosing Weight 82, kg, Priority: STAT, Start date: 04/15/18 12:31:00 CDT, Stop date: 04/15/18 12:31:00 CDT Morphine 2018-0 No 4 mg, Memoria 9-13 Route: l 17:31: IVP, ONCE, Dosing Weight 82, kg, Priority: STAT, Start date: 04/15/18 12:31:00 CDT, Stop date: 04/15/18 12:31:00 CDT Ondansetron 2018-0 No 4 mg, Memor ia 9-13 Route: l 17:31: IVP, Drug form: INJ, ONCE, Dosing Weight 82, kg, Priority: STAT, Start date: 04/15/18 12:31:00 CDT, Stop date: 04/15/18 12:31:00 CDT Morphine 2018-0 No 4 mg, Memoria 9-13 Route: l 17:31: IVP, ONCE, Dosing Weight 82, kg, Priority: STAT, Start date: 04/15/18 12:31:00 CDT, Stop date: 04/15/18 12:31:00 CDT Ondansetron 2018-0 No 4 mg, Memor ia 9-13 Route: l 17:31: IVP, Drug form: INJ, ONCE, Dosing Weight 82, kg, Priority: STAT, Start date: 04/15/18 12:31:00 CDT, Stop date: 04/15/18 12:31:00 CDT Morphine 2018-0 No 4 mg, Memoria 9-13 Route: l 17:31: IVP, ONCE, Dosing Weight 82, kg, Priority: STAT, Start date: 04/15/18 12:31:00 CDT, Stop date: 04/15/18 12:31:00 CDT Aspirin 2017-0 No Notes: Memoria 9-13 Take with l 15:28: food. [place] 00 Aspirin 2017-0 No Notes: Memoria 9-13 Take with l 15:28: food. [place] 00 Aspirin 2017-0 No Notes: Memoria 9-13 Take with l 15:28: food. Saline No Notes: [facility]oria Flush 0.9% 04-15 (Same as: l 14:54: BD [place] 00 Posiflush) Saline 2018-0 No Notes: [facility]oria Flush 0.9% 9-13 (Same as: l 14:54: BD [place] 00 Posiflush) Saline 2017-0 No Notes: [facility]oria Flush 0.9% 9-13 (Same as: l 14:54: BD [place] 00 Posiflush) Protonix 2017-0 No Notes: Memoria 5-15 Tablet l 12:30: should not [place] 00 be chewed or crushed. (Same as: Protonix) Protonix 2017-0 No Notes: Memoria 5-15 Tablet l 12:30: should not [place] 00 be chewed or crushed. (Same as: Protonix) Protonix 2017-0 No Notes: Memoria 5-15 Tablet l 12:30: should not [place] 00 be chewed or crushed. (Same as: Protonix) Ibuprofen 2018-0 No 600 mg, 1 Mem oria 5-14 tab, l 20:47: Route: PO, [place] 00 Drug form: TAB, Q6H, Dosing Weight 81.818, kg, PRN Pain Score 1-3, Start date: 12/14/17 15:47:00 CDT, Duration: 30 day, Stop date: 01/13/18 15:46:00 CDT Ibuprofen 2018-0 No 600 mg, 1 Mem oria 5-14 tab, l 20:47: Route: PO, Drug form: TAB, Q6H, Dosing Weight 81.818, kg, PRN Pain Score 1-3, Start date: 12/14/17 15:47:00 CDT, Duration: 30 day, Stop date: 01/13/18 15:46:00 CDT Ibuprofen 2018-0 No 600 mg, 1 Mem oria 5-14 tab, l 20:47: Route: PO, Drug form: [...] CDT Morphine 2018-0 No 4 mg, Memoria 12-14 Route: l 12:50: IVP, ONCE, Dosing Weight 81.818, kg, Priority: STAT, Start date: 12/14/17 7:50:00 CDT, Stop date: 12/14/17 7:50:00 CDT Morphine 2018-0 No 4 mg, Memoria 12-14 Route: l 12:50: IVP, ONCE, Dosing Weight 81.818, kg, Priority: STAT, Start date: 12/14/17 7:50:00 CDT, Stop date: 12/14/17 7:50:00 CDT Nitroglycer 2017-0 No Notes: Abdiel princess in 12-14 (Same l 12:30: as:Tridil) Final conc = 0.4 mg/ml. Premix bottle. Nitroglycer 0 No Notes: Abdiel princess in [...] in 5-14 mL, Rate: l 12:29: Titrate, [place] 00 Start Dose: 10 microgram/ min, Titration: 10 microgram/ min every 5 minutes, Goal(s): Chest pain and SBP between 100 - 150 mmHg, Max Dose: 200 mcg/min, Route: IV, Dosing Weight 81.818 kg, Total Volume: 250, Start date: 12/01... Morphine 2018-0 No 4 mg, Memoria 5-14 Route: l 12:07: IVP, ONCE, [place] 00 kg, Priority: STAT, Start date: 12/14/17 7:07:00 CDT, Stop date: 12/14/17 7:07:00 CDT Ondansetron 2018-0 No 4 mg, Memor ia 5-14 Route: l 12:07: IVP, ONCE, [place] 00 kg, Priority: STAT, Start date: 12/14/17 7:07:00 CDT, Stop date: 12/14/17 7:07:00 CDT Saline 2018-0 No Notes: Memoria Flush 0.9% 5-14 Same as: l 12:07: BD [place] 00 Posiflush Sterile Morphine 2018-0 No 4 mg, Memoria 5-14 Route: l 12:07: IVP, ONCE, [place] 00 kg, Priority: STAT, Start date: 12/14/17 7:07:00 CDT, Stop date: 12/14/17 7:07:00 CDT Ondansetron 2018-0 No 4 mg, Memor ia 5-14 Route: l 12:07: IVP, ONCE, [place] 00 kg, Priority: STAT, Start date: 12/14/17 7:07:00 CDT, Stop date: 12/14/17 7:07:00 CDT Saline 2018-0 No Notes: Memoria Flush 0.9% 5-14 Same as: l 12:07: BD [place] 00 Posiflush Sterile Morphine 2018-0 No 4 mg, Memoria 5-14 Route: l 12:07: IVP, ONCE, [place] 00 kg, Priority: STAT, Start date: 12/14/17 7:07:00 CDT, Stop date: 12/14/17 7:07:00 CDT Ondansetron 2018-0 No 4 mg, Memor ia 5-14 Route: l 12:07: IVP, ONCE, [place] 00 kg, Priority: STAT, Start date: 12/14/17 7:07:00 CDT, Stop date: 12/14/17 7:07:00 CDT Saline 2018-0 No Notes: Memoria Flush 0.9% 5-14 Same as: l 12:07: BD [place] 00 Posiflush Sterile Symbicort Symbicort Yes Jun [address] [facility] Promethazin Promethazin Yes Jun 10 ml as Common e HCl e HCl [facility] Losartan Losartan Yes Jun 1 tablet C ommon Potassium Potassium [facility] Gabapentin Gabapentin No 1{capsu BID Gabapentin 300 [...] MG Furosemide Furosemide No Furosemide Aspir-81 81 Aspir- 81 No 1{table QD [...] Vitamin C Vitamin C No Vitamin C - 81 - 81 No 1{table QD [...] 10 MG de 10 MG Aspir-81 81 Aspir- 81 No 1{table QD [...] MG e_eveni 10 MG ng} - 81 Aspir- 81 No 1{table QD Aspir-81 [...] Status Commen ts Source Name Name [facility] 2021-05-02 [facility] 09[facility]00 [facility] 2021-05-02 Com[facility] 09:[facility]00 [facility] 2021-05-02 Com[facility] 09[facility]55:00 [facility] 2021-05-02 Com[facility] 09[facility]55:00 [facility] 2021-05-02 Com[facility] 09:55:00 [facility] 2021-05-02 Com[facility] 09[facility]55:00 [facility] 2021-05-02 Com[facility] 09:55:00 [facility] 2021-05-02 Com[facility] 09:[facility]:00 [facility] Afluria Afluria 2021-05-02 Completed [facility] 09:55:00 [facility] Afluria Afluria 2021-05-02 Completed [facility] 09:55:00 [facility] Afluria Afluria 2021-05-02 Completed [facility] 09:55:00 [facility] Afluria Afluria 2021-05-02 Completed [facility] 09:55:00 [facility] Afluria Afluria 2021-05-02 Completed [facility] 09:55:00 [facility] Afluria Afluria 2021-05-02 Completed [facility] 09:55:00 [facility] Afluria Afluria 2021-05-02 Completed [facility] 09:55:00 [facility] Afluria Afluria 2021-05-02 Completed [facility] 09:55:00 [facility] Afluria Afluria 2021-05-02 Completed [facility] - 09:55:00 [facility] Afluria Afluria 2021-05-02 Completed [facility] 09:55:00 [facility] Afluria Afluria 2021-05-02 Completed [facility] - 09:55:00 [facility] Afluria Afluria 2021-05-02 Completed [facility] 09:55:00 [facility] Afluria Afluria 2021-05-02 Completed [facility] 09:55:00 [facility] Afluria Afluria 2021-05-02 Completed [facility] 09:55:00 [facility] Afluria Afluria 2021-05-02 Completed [facility] 09:55:00 [facility] Afluria Afluria 2021-05-02 Completed [facility] 09:55:00 [facility] Afluria Afluria 2021-05-02 Completed [facility] 09:55:00 [facility] Afluria Afluria 2021-05-02 Completed [facility] 09:55:00 [facility] Afluria Afluria 2021-05-02 Completed [facility] 09:55:00 [facility] Afluria Afluria 2021-05-02 Completed [facility] 09:55:00 [facility] Afluria Afluria 2021-05-02 Completed [facility] 09:55:00 [facility] Afluria Afluria 2021-05-02 Completed [facility] 09:55:00 [facility] Afluria Afluria 2021-05-02 Completed [facility] 09:55:00 [facility] Afluria Afluria 2021-05-02 Completed [facility] 09:55:00 [facility] Afluria Afluria 2021-05-02 Completed [facility] 09:55:00 [facility] Afluria Afluria 2021-05-02 Completed [facility] 09:55:00 [facility] Afluria Afluria 2021-05-02 Completed [facility] 09:55:00 [facility] Afluria Afluria 2021-05-02 Completed [facility] - 09:55:00 [facility] Afluria Afluria 2021-05-02 Completed [facility] 09:55:00 [facility] Afluria Afluria 2021-05-02 Completed [facility] 09:55:00 [facility] Afluria Afluria 2021-05-02 Completed [facility] 09:55:00 [facility] Afluria Afluria 2021-05-02 Completed [facility] 09:55:00 [facility] Afluria Afluria 2021-05-02 Completed [facility] 09:55:00 [facility] Afluria Afluria 2021-05-02 [facility]pleted [facility] 09:55:00 [facility] [id number] 2021-01-08 Completed Abdiel rial [id number] 00:00:00 Herm tiffany [id number] 2021-01-08 Completed Abdiel rial [id number] 00:00:00 [place] tiffany [id number] 2021-01-08 Completed Abdiel rial [id number] 00:00:00 Herm tiffany Hyalgan 20 mg Hyalgan 20 mg 2020-12-11 Completed [facility] - 11:54:00 [facility] Hyalgan 20 mg Hyalgan 20 mg 2020-12-11 Completed [facility] - 11:53:00 [facility] Hyalgan 20 mg Hyalgan 20 mg 2020-12-06 Completed [facility] - 09:13:00 [facility] Hyalgan 20 mg Hyalgan 20 mg 2020-12-06 Completed [facility] - 09:12:00 [facility] Kenalog Kenalog 2020-11-22 Completed [facility] - (Triamcinolone) (Triamcinolone) 10:10:00 [facility] Bupivicaine [place] Bupivicaine [place] 2020-11-22 Completed [facility] - 10:09:00 [facility] Kenalog Kenalog 2020-11-22 Completed [facility] (Triamcinolone) (Triamcinolone) 10:09:00 [facility] Bupivicaine [place] Bupivicaine [place] 2020-11-22 [facility]pleted [facility] - 10:08:00 [facility] Hyalgan 20 mg Hyalgan 20 mg 2020-11-22 Completed [facility] - 09:31:00 [facility] Hyalgan 20 mg Hyalgan 20 mg 2020-11-22 Completed [facility] - 09:30:00 [facility] Bupivicaine [place] Bupivicaine [place] 2020-08-02 Completed [facility] - 09:59:00 [facility] Kenmendoza Kenalog 2020-08-02 Completed [facility] (Triamcinolone) (Triamcinolone) 09:59:00 [facility] Pneumovax (PPSV23) Pneumovax (PPSV23) 2020-06-20 Completed [facility] - 14:36:00 [facility] Pneumovax (PPSV23) Pneumovax (PPSV23) 2020-06-20 [facility]pleted [facility] 14:36:00 [facility] Pneumovax (PPSV23) Pneumovax (PPSV23) 2020-06-20 [facility]pleted [facility] - 14:36:00 [facility] Pneumovax (PPSV23) Pneumovax (PPSV23) 2020-06-20 [facility]pleted [facility] - 14:36:00 [facility] Pneumovax (PPSV23) Pneumovax (PPSV23) 2020-06-20 [facility]pleted [facility] - 14:36:00 [facility] Pneumovax (PPSV23) Pneumovax (PPSV23) 2020-06-20 [facility]pleted [facility] - 14:36:00 [facility] Pneumovax (PPSV23) Pneumovax (PPSV23) 2020-06-20 [facility]pleted [facility] - 14:36:00 [facility] Pneumovax (PPSV23) Pneumovax (PPSV23) 2020-06-20 [facility]pleted [facility] - 14:36:00 [facility] Pneumovax (PPSV23) Pneumovax (PPSV23) 2020-06-20 [facility]pleted [facility] - 14:36:00 [facility] Pneumovax (PPSV23) Pneumovax (PPSV23) 2020-06-20 [facility]pleted [facility] - 14:36:00 [facility] Pneumovax (PPSV23) Pneumovax (PPSV23) 2020-06-20 [facility]pleted [facility] - 14:36:00 [facility] Pneumovax (PPSV23) Pneumovax (PPSV23) 2020-06-20 [facility]pleted [facility] - 14:36:00 [facility] Pneumovax (PPSV23) Pneumovax (PPSV23) 2020-06-20 [facility]pleted [facility] - 14:36:00 [facility] Pneumovax (PPSV23) Pneumovax (PPSV23) 2020-06-20 [facility]pleted [facility] - 14:36:00 [facility] Pneumovax (PPSV23) Pneumovax (PPSV23) 2020-06-20 [facility]pleted [facility] - 14:36:00 [facility] Pneumovax (PPSV23) Pneumovax (PPSV23) 2020-06-20 [facility]pleted [facility] - 14:36:00 [facility] Pneumovax (PPSV23) Pneumovax (PPSV23) 2020-06-20 [facility]pleted [facility] - 14:36:00 [facility] Pneumovax (PPSV23) Pneumovax (PPSV23) 2020-06-20 [facility]pleted [facility] - 14:36:00 [facility] Pneumovax (PPSV23) Pneumovax (PPSV23) 2020-06-20 [facility]pleted [facility] - 14:36:00 [facility] Pneumovax (PPSV23) Pneumovax (PPSV23) 2020-06-20 Completed [facility] - 14:36:00 [facility] Pneumovax (PPSV23) Pneumovax (PPSV23) 2020-06-20 [facility]pleted [facility] - 14:36:00 [facility] Pneumovax (PPSV23) Pneumovax (PPSV23) 2020-06-20 [facility]pleted [facility] - 14:36:00 [facility] Pneumovax (PPSV23) Pneumovax (PPSV23) 2020-06-20 [facility]pleted [facility] - 14:36:00 [facility] Pneumovax (PPSV23) Pneumovax (PPSV23) 2020-06-20 [facility]pleted [facility] - 14:36:00 [facility] Pneumovax (PPSV23) Pneumovax (PPSV23) 2020-06-20 [facility]pleted [facility] - 14:36:00 [facility] Pneumovax (PPSV23) Pneumovax (PPSV23) 2020-06-20 [facility]pleted [facility] - 14:36:00 [facility] Pneumovax (PPSV23) Pneumovax (PPSV23) 2020-06-20 [facility]pleted [facility] - 14:36:00 [facility] Pneumovax (PPSV23) Pneumovax (PPSV23) 2020-06-20 [facility]pleted [facility] - 14:36:00 [facility] Pneumovax (PPSV23) Pneumovax (PPSV23) 2020-06-20 [facility]pleted [facility] - 14:36:00 [facility] Pneumovax (PPSV23) Pneumovax (PPSV23) 2020-06-20 [facility]pleted [facility] - 14:36:00 [facility] Pneumovax (PPSV23) Pneumovax (PPSV23) 2020-06-20 [facility]pleted [facility] - 14:36:00 [facility] Pneumovax (PPSV23) Pneumovax (PPSV23) 2020-06-20 [facility]pleted [facility] - 14:36:00 [facility] Pneumovax (PPSV23) Pneumovax (PPSV23) 2020-06-20 [facility]pleted [facility] - 14:36:00 [facility] Pneumovax (PPSV23) Pneumovax (PPSV23) 2020-06-20 [facility]pleted [facility] - 14:36:00 [facility] Pneumovax (PPSV23) Pneumovax (PPSV23) 2020-06-20 [facility]pleted [facility] - 14:36:00 [facility] Pneumovax (PPSV23) Pneumovax (PPSV23) 2020-06-20 [facility]pleted [facility] - 14:36:00 [facility] Pneumovax (PPSV23) Pneumovax (PPSV23) 2020-06-20 [facility]pleted [facility] - 14:36:00 [facility] Pneumovax (PPSV23) Pneumovax (PPSV23) 2020-06-20 [facility]pleted [facility] - 14:36:00 [facility] Pneumovax (PPSV23) Pneumovax (PPSV23) 2020-06-20 [facility]pleted [facility] - 14:36:00 [facility] Pneumovax (PPSV23) Pneumovax (PPSV23) 2020-06-20 [facility]pleted [facility] - 14:36:00 [facility] Pneumovax (PPSV23) Pneumovax (PPSV23) 2020-06-20 [facility]pleted [facility] - 14:36:00 [facility] Pneumovax (PPSV23) Pneumovax (PPSV23) 2020-06-20 Completed [facility] - 14:36:00 [facility] Afluria single dose Afluria single dose 2020-06-20 Completed [facility] - 14:35:00 [facility] Afluria single dose Afluria single dose 2020-06-20 Completed [facility] - 14:35:00 [facility] Afluria single dose Afluria single dose 2020-06-20 Completed [facility] - 14:35:00 [facility] Afluria single dose Afluria single dose 2020-06-20 Completed [facility] - 14:35:00 [facility] Afluria single dose Afluria single dose 2020-06-20 Completed [facility] - 14:35:00 [facility] [facility] Afluria single dose Afluria single dose 2020-06-20 [facility]pleted [facility] 14:35:00 [facility] Afluria single dose Afluria single dose 2020-06-20 Completed [facility] 14:35:00 [facility] Afluria single dose Afluria single dose 2020-06-20 Completed [facility] 14:35:00 [facility] Afluria single dose Afluria single dose 2020-06-20 Completed [facility] 14:35:00 [facility] Afluria single dose Afluria single dose 2020-06-20 Completed [facility] 14:35:00 [facility] Afluria single dose Afluria single dose 2020-06-20 Completed [facility] 14:35:00 [facility] Afluria single dose Afluria single dose 2020-06-20 Completed [facility] 14:35:00 [facility] Afluria single dose Afluria single dose 2020-06-20 Completed [facility] 14:35:00 [facility] Afluria single dose Afluria single dose 2020-06-20 Completed [facility] 14:35:00 [facility] Afluria single dose Afluria single dose 2020-06-20 Completed [facility] 14:35:00 [facility] Afluria single dose Afluria single dose 2020-06-20 Completed [facility] 14:35:00 [facility] Afluria single dose Afluria single dose 2020-06-20 Completed [facility] 14:35:00 [facility] Afluria single dose Afluria single dose 2020-06-20 Completed [facility] 14:35:00 [facility] Afluria single dose Afluria single dose 2020-06-20 Completed [facility] 14:35:00 [facility] Afluria single dose Afluria single dose 2020-06-20 Completed [facility] 14:35:00 [facility] Afluria single dose Afluria single dose 2020-06-20 Completed [facility] 14:35:00 [facility] Afluria single dose Afluria single dose 2020-06-20 Completed [facility] 14:35:00 [facility] Afluria single dose Afluria single dose 2020-06-20 Completed [facility] 14:35:00 [facility] Afluria single dose Afluria single dose 2020-06-20 Completed [facility] 14:35:00 [facility] Afluria single dose Afluria single dose 2020-06-20 Completed [facility] 14:35:00 [facility] Afluria single dose Afluria single dose 2020-06-20 Completed [facility] 14:35:00 [facility] Afluria single dose Afluria single dose 2020-06-20 Completed [facility] 14:35:00 [facility] Afluria single dose Afluria single dose 2020-06-20 Completed [facility] 14:35:00 [facility] Afluria single dose Afluria single dose 2020-06-20 Completed [facility] 14:35:00 [facility] Afluria single dose Afluria single dose 2020-06-20 Completed [facility] 14:35:00 [facility] Afluria single dose Afluria single dose 2020-06-20 Completed [facility] 14:35:00 [facility] Afluria single dose Afluria single dose 2020-06-20 Completed [facility] 14:35:00 [facility] Afluria single dose Afluria single dose 2020-06-20 Completed [facility] 14:35:00 [facility] Afluria single dose Afluria single dose 2020-06-20 Completed [facility] 14:35:00 [facility] Afluria single dose Afluria single dose 2020-06-20 Completed [facility] 14:35:00 [facility] Afluria single dose Afluria single dose 2020-06-20 Completed [facility] 14:35:00 [facility] Afluria single dose Afluria single dose 2020-06-20 Completed [facility] 14:35:00 [facility] Afluria single dose Afluria single dose 2020-06-20 Completed [facility] 14:35:00 [facility] Afluria single dose Afluria single dose 2020-06-20 Completed [facility] 14:35:00 [facility] Afluria single dose Afluria single dose 2020-06-20 Completed [facility] 14:35:00 [facility] Afluria single dose Afluria single dose 2020-06-20 Completed [facility] 14:35:00 [facility] Afluria single dose Afluria single dose 2020-06-20 Completed [facility] 14:35:00 [facility] Kenalog Kenalog 2019-10-13 Completed [facility] - (Triamcinolone) (Triamcinolone) 15:10:00 [facility] Vital Signs Vital Name Observation Time Observation Value Comments Source height 2022-09-09 11:20:00 68.5 [in_i] [facility] weight 2022-09-09 11:20:00 196 [lb_av] [facility] bmi 2022-09-09 11:20:00 29.37 kg/m2 [facility] blood pressure 2022-09-09 11:20:00 135 mm[Hg] [facility] systolic [facility] blood pressure 2022-09-09 11:20:00 72 mm[Hg] [facility] - diastolic [facility] height 2022-08-19 08:15:00 68.5 [in_i] [facility] weight 2022-08-19 08:15:00 195 [lb_av] [facility] temperature 2022-08-19 08:15:00 97.7 [degF] [facility] bmi 2022-08-19 08:15:00 29.22 kg/m2 [facility] blood pressure 2022-08-19 08:15:00 138 mm[Hg] [facility] - systolic [facility] blood pressure 2022-08-19 08:15:00 86 mm[Hg] [facility] - diastolic [facility] height 2022-07-10 11:00:00 68.5 [in_i] [facility] weight 2022-07-10 11:00:00 200 [lb_av] [facility] temperature 2022-07-10 11:00:00 97.2 [degF] [facility] bmi 2022-07-10 11:00:00 29.96 kg/m2 [facility] - [facility] blood pressure 2022-07-10 11:00:00 136 mm[Hg] [facility] - systolic [facility] blood pressure 2022-07-10 11:00:00 84 mm[Hg] [facility] - diastolic [facility] height 2022-05-28 09:20:00 68.5 [in_i] [facility] - [facility] weight 2022-05-28 09:20:00 200.0 [lb_av] [facility] temperature 2022-05-28 09:20:00 97.6 [degF] [facility] bmi 2022-05-28 09:20:00 29.96 kg/m2 [facility] oximetry 2022-05-28 09:20:00 95 % [facility] respiratory rate 2022-05-28 09:20:00 16 /min [facility] blood pressure 2022-05-28 09:20:00 138 mm[Hg] [facility] - systolic [facility] blood pressure 2022-05-28 09:20:00 78 mm[Hg] [facility] - diastolic [facility] height 2022-05-27 08:45:00 68.5 [in_i] [facility] weight 2022-05-27 08:45:00 211 [lb_av] [facility] - [facility] temperature 2022-05-27 08:45:00 97.1 [degF] [facility] bmi 2022-05-27 08:45:00 31.61 kg/m2 [facility] blood pressure 2022-05-27 08:45:00 140 mm[Hg] [facility] - systolic [facility] blood pressure 2022-05-27 08:45:00 92 mm[Hg] [facility] - diastolic [facility] height 2022-04-23 13:40:00 68.5 [in_i] [facility] 2022-04-23 13:40:00 201 [lb_av] [facility] temperature 2022-04-23 13:40:00 98.2 [degF] [facility] bmi 2022-04-23 13:40:00 30.11 kg/m2 [facility] oximetry 2022-04-23 13:40:00 95 % [facility] respiratory rate 2022-04-23 13:40:00 17 /min Comm on [facility] blood pressure 2022-04-23 13:40:00 138 mm[Hg] [facility] systolic [facility] blood pressure 2022-04-23 13:40:00 79 mm[Hg] [facility] - diastolic [facility] height 2022-03-17 09:00:00 68.5 [in_i] [facility] weight 2022-03-17 09:00:00 200.5 [lb_av] Common [facility] temperature 2022-03-17 09:00:00 97.6 [degF] [facility] bmi 2022-03-17 09:00:00 30.04 kg/m2 [facility] oximetry 2022-03-17 09:00:00 95 % [facility] respiratory rate 2022-03-17 09:00:00 17 /min Comm on [facility] blood pressure 2022-03-17 09:00:00 136 mm[Hg] [facility] - systolic [facility] blood pressure 2022-03-17 09:00:00 72 mm[Hg] [facility] - diastolic [facility] height 2022-02-27 13:50:00 68.5 [in_i] [facility] weight 2022-02-27 13:50:00 201 [lb_av] [facility] - [facility] temperature 2022-02-27 13:50:00 98.1 [degF] [facility] bmi 2022-02-27 13:50:00 30.11 kg/m2 [facility] oximetry 2022-02-27 13:50:00 98 % [facility] respiratory rate 2022-02-27 13:50:00 16 /min [facility] blood pressure 2022-02-27 13:50:00 124 mm[Hg] [facility] - systolic [facility] blood pressure 2022-02-27 13:50:00 77 mm[Hg] [facility] - diastolic [facility] blood pressure 2021-12-31 09:15:00 90 mm[Hg] [facility] height 2021-12-31 09:15:00 69 [in_i] [facility] weight 2021-12-31 09:15:00 211 [lb_av] [facility] temperature 2021-12-31 09:15:00 97.9 [degF] Common [facility] bmi 2021-12-31 09:15:00 31.16 kg/m2 [facility] blood pressure 2021-12-31 09:15:00 144 mm[Hg] [facility] - systolic [facility] height 2021-12-17 08:15:00 69 [in_i] [facility] weight 2021-12-17 08:15:00 211 [lb_av] [facility] temperature 2021-12-17 08:15:00 98.3 [degF] [facility] bmi 2021-12-17 08:15:00 31.16 kg/m2 [facility] blood pressure 2021-12-17 08:15:00 140 mm[Hg] [facility] - systolic [facility] blood pressure 2021-12-17 08:15:00 88 mm[Hg] [facility] - diastolic [facility] height 2021-12-10 13:15:00 69 [in_i] [facility] - [facility] weight 2021-12-10 13:15:00 211 [lb_av] [facility] - [facility] bmi 2021-12-10 13:15:00 31.16 kg/m2 [facility] - [facility] blood pressure 2021-12-10 13:15:00 140 mm[Hg] [facility] - systolic [facility] blood pressure 2021-12-10 13:15:00 84 mm[Hg] [facility] - diastolic [facility] height 2021-11-28 09:10:00 69 [in_i] [facility] weight 2021-11-28 09:10:00 213.3 [lb_av] [facility] [place] - [facility] temperature 2021-11-28 09:10:00 97.2 [degF] [facility] bmi 2021-11-28 09:10:00 31.5 kg/m2 [facility] oximetry 2021-11-28 09:10:00 94 % [facility] respiratory rate 2021-11-28 09:10:00 16 /min Comm on [facility] blood pressure 2021-11-28 09:10:00 138 mm[Hg] [facility] - systolic [facility] blood pressure 2021-11-28 09:10:00 73 mm[Hg] [facility] - diastolic [facility] height 2021-09-30 09:00:00 69 [in_i] [facility] weight 2021-09-30 09:00:00 211 [lb_av] [facility] temperature 2021-09-30 09:00:00 97.3 [degF] [facility] S pirit [facility] bmi 2021-09-30 09:00:00 31.16 kg/m2 [facility] S pirit [facility] blood pressure 2021-09-30 09:00:00 152 mm[Hg] [facility] - systolic [facility] blood pressure 2021-09-30 09:00:00 92 mm[Hg] [facility] - diastolic [facility] Systolic (mm Hg) 2021-05-02 19:53:00 [facility]iel [facility] Diastolic (mm Hg) 2021-05-02 19:53:00 [facility] Heart Rate 2021-05-02 19:53:00 [facility] Respitory Rate 2021-05-02 19:53:00 [facility] Height 2021-05-02 19:53:00 172.72 cm [facility] Weight 2021-05-02 19:53:00 [facility] BMI Calculated 2021-05-02 19:53:00 [facility] [place] Systolic (mm Hg) 2021-03-27 15:39:00 Abdiel rial [facility] Diastolic (mm Hg) 2021-03-27 15:39:00 [facility] [place] Heart Rate 2021-03-27 15:39:00 [facility] Respitory Rate 2021-03-27 15:39:00 [facility] Height 2021-03-27 15:39:00 172.72 cm [facility] Weight 2021-03-27 15:39:00 [facility] BMI Calculated 2021-03-27 15:39:00 [facility] Systolic (mm Hg) 2021-02-13 21:08:00 Abdiel rial [facility] Diastolic (mm Hg) 2021-02-13 21:08:00 [facility] Heart Rate 2021-02-13 21:08:00 [facility] Respitory Rate 2021-02-13 21:08:00 [facility] [place] Height 2021-02-13 21:08:00 175.26 cm [facility] Weight 2021-02-13 21:08:00 [facility] BMI Calculated 2021-02-13 21:08:00 [facility] Systolic (mm Hg) 2021-01-21 14:39:00 [facility]iel [facility] [place] Diastolic (mm Hg) 2021-01-21 14:39:00 Mem [facility] [place] Heart Rate 2021-01-21 14:39:00 [facility] Respitory Rate 2021-01-21 14:39:00 [facility] Height 2021-01-21 14:39:00 175.26 cm [facility] Weight 2021-01-21 14:39:00 [facility] BMI Calculated 2021-01-21 14:39:00 [facility] Heart Rate 2018-04-16 16:43:00 [facility] Respitory Rate 2018-04-16 16:43:00 [facility] Temperature Oral (F) 2018-04-16 16:43:00 98.1 F [facility] Systolic (mm Hg) 2018-04-16 16:43:00 Abdiel rial [place] Diastolic (mm Hg) 2018-04-16 16:43:00 Mem [facility] [place] Heart Rate 2018-04-16 12:33:00 [facility] Temperature Oral (F) 2018-04-16 12:33:00 98.1 F [facility] Systolic (mm Hg) 2018-04-16 12:33:00 Abdiel rial [place] Diastolic (mm Hg) 2018-04-16 12:33:00 Mem [facility] [place] Respitory Rate 2018-04-16 12:33:00 [facility] Respitory Rate 2018-04-16 08:19:00 [facility] Heart Rate 2018-04-16 08:19:00 [facility] Temperature Oral (F) 2018-04-16 08:19:00 97.9 F [facility] Systolic (mm Hg) 2018-04-16 08:19:00 Abdiel rial [facility] Diastolic (mm Hg) 2018-04-16 08:19:00 [facility] [place] Height 2018-04-15 14:08:00 175.26 cm [facility] BMI Calculated 2018-04-15 14:08:00 [facility] Weight 2018-04-15 14:08:00 [facility] Systolic (mm Hg) 2017-12-14 20:44:00 Abdiel rial [facility] Diastolic (mm Hg) 2017-12-14 20:44:00 [facility] [place] Temperature Oral (F) 2017-12-14 20:44:00 97.7 F [facility] Respitory Rate 2017-12-14 20:44:00 [facility] [place] Respitory Rate 2017-12-14 15:33:00 [facility] [place] Systolic (mm Hg) 2017-12-14 15:33:00 Abdiel rial [facility] Diastolic (mm Hg) 2017-12-14 15:33:00 [facility] [place] BMI Calculated 2017-12-14 15:23:00 [facility] [place] Weight 2017-12-14 15:23:00 [facility] Height 2017-12-14 15:23:00 175.26 cm [facility] Respitory Rate 2017-12-14 15:03:00 [facility] [place] Systolic (mm Hg) 2017-12-14 15:03:00 Abdiel rial [place] Diastolic (mm Hg) 2017-12-14 15:03:00 [facility] Temperature Oral (F) 2017-12-14 14:20:00 97.6 F [facility] Temperature Oral (F) 2017-12-14 12:18:00 97.8 F [facility] Height 2017-12-14 12:02:00 180.34 cm [facility] BMI Calculated 2017-12-14 12:02:00 [facility] Weight 2017-12-14 12:02:00 [facility] Heart Rate 2017-12-14 12:02:00 [facility] Procedures Procedure Date / Time Performed Performing Clinician Kam e section [facility] Hyste[facility] Cholecystectomy [facility] Encounters Start End Encounter Admission Attending Care Care Encounter Source Date/Time Date/Time Type Type Clinicians Facility Department ID 2022-09-05 [facility] STLML[facility] STLMLC [id number] Common 11:52:[id number] [facility] 2022-08-19 [facility] STLMLC STLMLC [id number] Common 08:44:[id number] [facility] 2022-07-10 [facility], STLMLC STLMLC [id number] Common 08:13:[id number] [facility] 2022-05-28 [facility], STLMLC STLMLC [id number] Common 11:27:[id number] [facility] 2022-05-19 [facility], STLMLC STLMLC [id number] Common 15:13:[address] [facility] 2022-04-23 [facility], STLMLC STLMLC [id number] Common 13:42:[address] [facility] 2022-02-27 [facility], STLMLC STLMLC [id number] Common 13:45:[address] [facility] 2022-02-18 [facility], STLMLC STLMLC [id number] Common 10:02:[address] [facility] 2022-01-02 [facility], STLMLC STLMLC [id number] Common 09:20:[address] [facility] 2021-12-09 [facility], STLMLC STLMLC [id number] Common 09:46:[address] [facility] 2021-11-22 [facility], STLMLC STLMLC [id number] Common 10:08:[address] [facility] 2021-09-30 [facility], STLMLC STLMLC [id number] Common 10:25:[address] [facility] 2021-09-27 [facility], STLMLC STLMLC [id number] Common 08:33:[address] [facility] 2021-09-17 [facility], STLMLC STLMLC [id number] Common 13:21:[address] [facility] 2021-09-16 [facility], STLMLC STLMLC [id number] Common 09:25:[address] [facility] 2021-08-28 [facility], STLMLC STLMLC [id number] Common 14:31:[address] [facility] 2021-08-28 [facility], STLMLC STLMLC [id number] Common 13:54:[address] [facility] 2021-08-28 [facility], STLMLC STLMLC [id number] Common 13:31:[address] [facility] 2021-08-28 [facility], STLMLC STLMLC [id number] Common 12:48:[id number] [facility] 2021-08-28 [facility], STLMLC STLMLC [id number] Common 12:31:[id number] [facility] 2021-08-28 [facility], STLMLC STLMLC [id number] Common 12:28:[id number] [facility] 2021-08-28 [facility], STLMLC STLMLC [id number] Common 12:17:[id number] [facility] 2021-08-28 [facility], STLMLC STLMLC [id number] Common 12:15:[id number] [facility] 2021-08-28 [facility], STLMLC STLMLC [id number] Common 11:32:[id number] [facility] 2021-08-28 [facility], STLMLC STLMLC [id number] Common 11:31:[id number] [facility] 2021-08-28 [facility], STLMLC STLMLC [id number] Common 11:20:[id number] [facility] 2021-08-28 [facility], STLMLC STLMLC [id number] Common 11:16:[id number] [facility] 2021-08-28 [facility], STLMLC STLMLC [id number] Common 11:16:[id number] [facility] 2021-08-28 Outpatient STLMLC STLMLC [id number] Common 11:13:[id number] [facility] 2022-09-09 2022-09-09 OFFICE STLMLC STLMLC [id number] Co mmon 00:00:00 00:00:00 VISIT [facility] LEVEL 4 [facility] 2022-08-26 2022-08-26 (TEL) STLMLC STLMLC [id number] Co mmon 00:00:00 00:00:00 [facility] 2022-08-19 2022-08-19 OFFICE STLMLC STLMLC [id number] Co mmon 00:00:00 00:00:00 [facility]IT [facility] ESTAB PT - [facility]I LEVEL 4 [facility] 2022-07-10 2022-07-10 OFFICE STLMLC STLMLC [id number] Co mmon 00:00:00 00:00:00 VISIT [facility] PT LEVEL 3 - [facility] 2022-07-09 2022-07-09 (TEL) STLMLC STLMLC [id number] Co mmon 00:00:00 00:00:00 [facility] 2022-07-08 2022-07-08 (TEL) STLMLC STLMLC [id number] Co mmon 00:00:00 00:00:00 [facility] 2022-06-30 2022-06-30 (TEL) STLMLC STLMLC [id number] Co mmon 00:00:00 00:00:00 [facility] 2022-06-30 2022-06-30 (TEL) STLMLC STLMLC [id number] Co mmon 00:00:00 00:00:00 [facility] 2022-06-11 2022-06-11 (TEL) STLMLC STLMLC [id number] Co mmon 00:00:00 00:00:00 [facility] 2022-05-30 2022-05-30 (TEL) STLMLC STLMLC [id number] Co mmon 00:00:00 00:00:00 [facility] 2022-05-28 2022-05-28 (WELLNESS) STLMLC STLMLC [id number] Common 00:00:00 00:00:00 [facility] Visit [facility] 2022-05-27 2022-05-27 OFFICE STLMLC STLMLC [id number] Co mmon 00:00:00 00:00:00 [facility] ESTAB PT - CHI LEVEL 4 [facility] 2022-05-20 2022-05-20 (TEL) STLMLC STLMLC [id number] Co mmon 00:00:00 00:00:00 [facility] 2022-05-14 2022-05-14 (TEL) STLMLC STLMLC [id number] Co mmon 00:00:00 00:00:00 [facility] 2022-05-08 2022-05-08 (TEL) STLMLC STLMLC [id number] Co mmon 00:00:00 00:00:00 [facility] 2022-05-05 2022-05-05 (TEL) STLMLC STLMLC [id number] Co mmon 00:00:00 00:00:00 [facility] 2022-04-23 2022-04-23 (TEL) STLMLC STLMLC [id number] Co mmon 00:00:00 00:00:00 [facility] 2022-04-23 2022-04-23 OFFICE STLMLC STLMLC [id number] Co mmon 00:00:00 00:00:00 VISIT [facility] PT LEVEL 3 [facility] 2022-04-14 2022-04-14 (TEL) STLMLC STLMLC [id number] Co mmon 00:00:00 00:00:00 [facility] 2022-04-02 2022-04-02 (TEL) STLMLC STLMLC [id number] Co mmon 00:00:00 00:00:00 [facility] 2022-03-17 2022-03-17 OFFICE STLMLC STLMLC [id number] Co mmon 00:00:00 00:00:00 VISIT [facility] PT LEVEL 3 [facility] 2022-03-13 2022-03-13 (TEL) STLMLC STLMLC [id number] Co mmon 00:00:00 00:00:00 [facility] 2022-03-04 2022-03-04 (TEL) STLMLC STLMLC [id number] Co mmon 00:00:00 00:00:00 [facility] 2022-02-27 2022-02-27 OFFICE STLMLC STLMLC [id number] Co mmon 00:00:00 [facility] L[facility] 4 [facility] 2021-12-31 2021-12-31 (IN/ASP) STLMLC STLMLC [id number] C ommon 00:00:00 00:00:[address] [facility] 2021-12-17 2021-12-17 (IN/ASP) STLMLC STLMLC [id number] C ommon 00:00:00 00:00:[address] [facility] 2021-12-10 2021-12-10 (IN/ASP) STLMLC STLMLC [id number] C ommon 00:00:00 00:00:00 INJ ASP [facility] 2021-12-03 2021-12-03 (TEL) STLMLC STLMLC [id number] Co mmon 00:00:00 00:00:00 [facility] 2021-11-28 2021-11-28 OFFICE STLMLC STLMLC [id number] Co mmon 00:00:00 00:00:00 VISIT [facility] PT - CHI LEVEL 4 [facility] 2021-11-26 2021-11-26 (TEL) STLMLC STLMLC [id number] Co mmon 00:00:00 00:00:00 [facility] 2021-11-22 2021-11-22 (TEL) STLMLC STLMLC [id number] Co mmon 00:00:00 00:00:00 [facility] 2021-10-29 2021-10-29 (TEL) STLMLC STLMLC [id number] Co mmon 00:00:00 00:00:00 [facility] 2021-10-28 2021-10-28 (TEL) STLMLC STLMLC [id number] Co mmon 00:00:00 00:00:00 [facility] 2021-10-22 2021-10-22 (TEL) STLMLC STLMLC [id number] Co mmon 00:00:00 00:00:00 [facility] 2021-09-30 2021-09-30 OFFICE STLMLC STLMLC [id number] Co mmon 00:00:00 00:00:00 VISIT [facility] 4 [facility] 2021-09-16 2021-09-16 (TEL) STLMLC STLMLC [id number] Co mmon 00:00:00 00:00:00 [facility] 2021-07-02 2021-07-02 Ambulatory nullFlavo MNA [id number] Memoria 15:45:00 15:45:00 Pre-Reg r Neurology 04 l Jm Domínguezann 2021-07-02 2021-07-02 Ambulatory nullFlavo MNA [id number] Memoria 15:45:00 15:45:00 Pre-Reg r Neurology 04 l Jm Domínguezann 2021-07-02 2021-07-02 Outpatient NICO YaMISCHER MHMISCHER [id number] 09:45:00 09:45:00 Stoney 04 Alexx 2021-06-12 2021-06-12 Outpatient MHIE MHIE [id number] Memoria 10:45:00 10:45:00 04 arnold Ornelas 2021-05-20 2021-05-20 (TEL) STLMLC STLMLC [id number] Co mmon 00:00:00 00:00:00 [facility] 2021-05-02 2021-05-03 Outpatient nullFlavo MNA [id number] Memoria 19:45:00 04:59:59 r Neurology 03 arnold Domínguezann 2021-05-02 2021-05-03 Outpatient nullFlavo MNA [id number] Memoria 19:45:00 04:59:59 r Neurology 03 arnold Domínguezann 2021-05-02 2021-05-02 Outpatient NICO YaWASCHER MHMISCHER [id number] 14:45:00 23:59:59 Stoney 03 Alexx 2021-05-02 2021-05-02 Outpatient MHIE MHIE [id number] Memoria 14:45:00 14:45:00 03 arnold Ornelas 2021-05-02 2021-05-02 Outpatient STLMLC STLMLC [id number] Common 00:00:00 00:00:00 [facility] 2021-03-27 2021-03-28 Outpatient nullFlavo MNA [id number] Memoria 15:45:00 04:59:59 r Neurology 02 arnold Ornelas 2021-03-27 2021-03-28 Outpatient nullFlavo MNA [id number] Memoria 15:45:00 04:59:59 r Neurology 02 arnold Ornelas 2021-03-27 2021-03-27 [id number] 10:45:00 23:59:59 Stoney 02 Alexx 2021-03-27 2021-03-27 Outpatient MHIE MHIE [id number] Memoria 10:45:00 10:45:00 02 arnold Ornelas 2021-02-27 2021-02-27 Outpatient STLMLC STLMLC [id number] Common 00:00:00 00:00:00 [facility] 2021-02-13 2021-02-14 Outpatient nullFlavo MNA [id number] Memoria 21:00:00 04:59:59 r Neurology 01 l Jm Ornelas 2021-02-13 2021-02-14 Outpatient nullFlavo MNA [id number] Memoria 21:00:00 04:59:59 r Neurology 01 arnold Ornelas 2021-02-13 2021-02-13 [id number] 16:00:00 23:59:59 Stoney Alexx 2021-02-13 2021-02-13 Outpatient MHIE MHIE [id number] Memoria 16:00:00 16:00:00 01 arnold Ornelas 2021-01-21 2021-01-22 Outpatient nullFlavo MNA [id number] Memoria 14:45:00 04:59:59 r Neurology 00 arnold Ornelas 2021-01-21 2021-01-22 Outpatient nullFlavo MNA [id number] Memoria 14:45:00 04:59:59 r Neurology 00 arnold Ornelas 2021-01-21 2021-01-21 [id number] 09:45:00 23:59:59 Stoney 00 Alexx 2021-01-21 2021-01-21 Outpatient MHIE MHIE [id number] Memoria 09:45:00 09:45:00 00 arnold Ornelas 2021-01-07 2021-01-07 Outpatient STLMLC STLMLC [id number] Common 00:00:00 00:00:00 [facility] 2020-12-13 2020-12-13 Outpatient STLMLC STLMLC [id number] Common 00:00:00 00:00:00 [facility] 2020-12-11 2020-12-11 Outpatient STLMLC STLMLC [id number] Common 00:00:00 00:00:00 [facility] 2020-12-10 2020-12-10 Outpatient STLMLC STLMLC [id number] Common 00:00:00 00:00:00 [facility] 2020-12-06 2020-12-06 Outpatient STLMLC STLMLC [id number] Common 00:00:00 00:00:00 [facility] 2020-12-06 2020-12-06 Outpatient STLMLC STLMLC [id number] Common 00:00:00 00:00:00 [facility] 2020-11-30 2020-11-30 Outpatient STLMLC STLMLC [id number] Common 00:00:00 00:00:00 [facility] 2020-11-29 2020-11-29 Outpatient STLMLC STLMLC [id number] Common 00:00:00 00:00:00 [facility] 2020-11-29 2020-11-29 Outpatient STLMLC STLMLC [id number] Common 00:00:00 00:00:00 [facility] 2020-11-22 2020-11-22 Outpatient STLMLC STLMLC [id number] Common 00:00:00 00:00:00 [facility] 2020-11-16 2020-11-16 Outpatient STLMLC STLMLC [id number] Common 00:00:00 00:00:00 [facility] 2020-11-12 2020-11-12 Outpatient STLMLC STLMLC [id number] Common 00:00:00 00:00:00 [facility] 2020-11-07 2020-11-07 Outpatient STLMLC STLMLC [id number] Common 00:00:00 00:00:00 [facility] 2020-11-06 2020-11-06 Outpatient STLMLC STLMLC [id number] Common 00:00:00 00:00:00 [facility] 2020-10-31 2020-10-31 Outpatient STLMLC STLMLC [id number] Common 00:00:00 00:00:00 [facility] 2020-09-21 2020-09-21 Outpatient STLMLC STLMLC [id number] Common 00:00:00 00:00:00 [facility] 2020-09-20 2020-09-20 Outpatient STLMLC STLMLC [id number] Common 00:00:00 00:00:00 [facility] 2020-09-11 2020-09-11 Outpatient STLMLC STLMLC [id number] Common 00:00:00 00:00:00 [facility] 2020-09-05 2020-09-05 Outpatient STLMLC STLMLC [id number] Common 00:00:00 00:00:00 [facility] 2020-09-04 2020-09-04 Outpatient STLMLC STLMLC [id number] Common 00:00:00 00:00:00 [facility] 2020-08-31 2020-08-31 Outpatient STLMLC STLMLC [id number] Common 00:00:00 00:00:00 [facility] 2020-08-29 2020-08-29 Outpatient STLMLC STLMLC [id number] Common 00:00:00 00:00:00 [facility] 2020-08-02 2020-08-02 Outpatient STLMLC STLMLC [id number] Common 00:00:00 00:00:00 [facility] 2020-06-21 2020-06-21 Outpatient STLMLC STLMLC [id number] Common 00:00:00 00:00:00 [facility] 2020-06-20 2020-06-20 [id number] Common 00:00:00 00:00:00 [facility] 2020-02-23 2020-02-23 [facility] [id number] Common 10:30:00 10:30:[address] [facility] 2020-02-02 2020-02-02 [facility] [id number] Common 16:15:00 16:15:[address] [facility] 2020-01-26 2020-01-26 [facility] [id number] Common 09:02:00 09:02:[address] [facility] 2020-01-25 2020-01-25 [facility] [id number] Common 09:33:00 09:33:[address] [facility] 2020-01-24 2020-01-24 [facility] [id number] Common 15:30:00 15:30:[address] [facility] 2020-01-23 2020-01-23 [facility] [id number] Common 08:26:00 08:26:[address] [facility] 2020-01-23 2020-01-23 [facility] [id number] Common 00:14:00 00:14:[address] [facility] 2020-01-06 2020-01-06 [facility] [id number] Common 08:06:00 08:06:[address] [facility] 2020-01-05 2020-01-05 [facility] [id number] Common 10:30:00 10:30:[address] [facility] 2020-01-01 2020-01-01 [facility] [id number] Common 19:47:00 19:47:[address] [facility] 2019-12-13 2019-12-13 [facility] [id number] Common 13:27:00 13:27:[address] [facility] 2019-12-08 2019-12-08 [facility] [id number] Common 08:07:00 08:07:[address] [facility] 2019-12-07 2019-12-07 [facility] [id number] Common 13:00:00 13:00:[address] [facility] 2019-11-24 2019-11-24 [facility] [id number] Common 09:15:00 09:15:[address] [facility] 2019-11-04 2019-11-04 [facility] [id number] Common 09:00:00 09:00:[address] [facility] 2019-10-13 2019-10-13 [facility] [id number] Common 14:30:00 14:30:[address] [facility] 2018-04-15 2018-04-16 [facility] [id number] Memoria 14:01:00 18:30:00 jorge Ornelas 00 l [facility] 2018-04-15 2018-04-16 [facility]atio [facility]Fl[facility] [id number] Memoria 14:01:00 18:30:00 jorge Ornelas 00 l [facility] 2018-04-15 2018-04-16 Outpatient JON Steel [facility] [id number] 09:01:00 13:30:00 Miguel 00 [place] 2017-12-14 2017-12-14 [facility] [id number] Memoria 12:00:00 22:10:00 n r [address] 2017-12-14 2017-12-14 [id number] Memoria 12:00:00 22:10:00 n renetta [address] 2017-12-14 2017-12-14 Outpatient Robin, [facility] [id number] 07:00:00 17:10:00 Renea Carpenter Results Test [...] interpr et this result as normal/abnormal . [facility]2018-09-14 05:17:00 Test Item Value Reference Range Interpretation Comments eGFR (test code = eGFR) 53 [facility]2018-09-14 05:17:00 Test Item Value Reference Range Interpretation Comments Chloride Lvl (test code = Chloride Lvl) 105 95-109 [facility]2018-09-14 05:17:00 Test Item Value Reference Range Interpretation Comments CO2 (test code = CO2) 31 24-32 [facility]2018-09-14 05:17:00 Test Item Value Reference Range Interpretation Comments Potassium Lvl (test code = Potassium 4.5 3.5-5.1 Lvl) [facility]2018-09-14 05:17:00 Test Item Value Reference Range Interpretation Comments Sodium Lvl (test code = Sodium Lvl) 142 135-145 [facility]2018-09-14 05:17:00 Test Item Value Reference Range Interpretation Comments BUN (test code = BUN) 15 7-22 [facility]2018-09-14 05:17:00 Test Item Value Reference Range Interpretation Comments Creatinine Lvl (test code = Creatinine 1.15 0.50-1.40 Lvl) [facility]2018-09-14 05:17:00 Test Item Value Reference Range Interpretation Comments Calcium Lvl (test code = Calcium Lvl) 8.6 8.5-10.5 [facility]2018-09-14 05:17:00 Test Item Value Reference Range Interpretation Comments AGAP (test code = AGAP) 10.5 10.0-20.0 [facility]2018-09-14 05:17:00 Test Item Value Reference Range Interpretation Comments Glucose Lvl (test code = Glucose Lvl) 100 70-99 [facility]PjpgeevXULFVYNISA7214-11-99 05:17:00 Test Item Value Reference Range Interpretation Comments Hct (test code = Hct) 38.9 36.0-48.0 [facility] CenterTvcdgbkHASRDYAGKX8218-12-95 05:17:00 Test Item Value Reference Range Interpretation Comments Hgb (test code = Hgb) 13.5 12.0-16.0 [facility] CenterRvjxorzRTCVESHBJJ2972-20-68 05:17:00 Test Item Value Reference Range Interpretation Comments MPV (test code = MPV) 9.0 7.4-10.4 [facility] CenterMctjaksFOHFQCTEWJ3145-32-72 05:17:00 Test Item Value Reference Range Interpretation Comments Platelet (test code = Platelet) 133 133-450 [facility] CenterDqvwobvSFRKBFGIEX5752-49-99 05:17:00 Test Item Value Reference Range Interpretation Comments MCHC (test code = MCHC) 34.7 32.0-36.0 [facility] CenterBzdxzhcNPKVMGKNIL2736-62-30 05:17:00 Test Item Value Reference Range Interpretation Comments MCV (test code = MCV) 96.7 80.0-98.0 [facility] CenterEbsnntlHKFHUKHDFD4167-47-10 05:17:00 Test Item Value Reference Range Interpretation Comments RDW (test code = RDW) 12.9 11.5-14.5 [facility] CenterXlftidyZYEHPMACVI2327-27-87 05:17:00 Test Item Value Reference Range Interpretation Comments MPV (test code = MPV) 9.0 7.4-10.4 [facility] CenterOgexbvzKZJQDOLNJN4464-85-01 05:17:00 Test Item Value Reference Range Interpretation Comments MCH (test code = MCH) 33.6 pg 27.0-31.0 [facility] CenterNnqpsshDUTAOBNTFJ6361-51-14 05:17:00 Test Item Value Reference Range Interpretation Comments WBC (test code = WBC) 3.9 3.7-10.4 [facility] CenterVcpuknzYSTEZLHUFW6902-16-87 05:17:00 Test Item Value Reference Range Interpretation Comments RBC (test code = RBC) 4.02 4.20-5.40 [facility] KzmupzsPKWXYS3257-93-23 05:17:00 Test Item Value Reference Range Interpretation Comments VLDL (test code = VLDL) 44 1 [facility] FddymkhSTIZDF5283-99-57 05:17:00 Test Item Value Reference Range Interpretation Comments LDL (Calculated) (test code = LDL 87 (Calculated)) [facility]EcomdiwXTELBC[facility]201-35-41 05:17:00 Test Item Value Reference Range Interpretation Comments HDL (test code = HDL) 49 [facility] NwqfrpmECMCED7648-01-45 05:17:00 Test Item Value Reference Range Interpretation Comments Chol (test code = Chol) 180 [facility] HospitalLygzoklWLMEKH4958-83-91 05:17:00 Test Item Value Reference Range Interpretation Comments Trig (test code = Trig) 220 [facility] HospitalEbnqiqtPQPBAU2612-50-93 05:17:00 Test Item Value Reference Range Interpretation Comments CHD Risk (test code = CHD Risk) 3.67 1 3.90-5.80 [facility] OEAJYJWSX3796-68-06 05:17:00 Test Item Value Reference Range Interpretation Comments Hgb A1C (test code = Hgb A1C) 5.5 [facility] VUXVKKE3382-06-01 05:17:00 Test Item Value Reference Range Interpretation Comments Troponin-I (test code no gt See_Comment [Auto mated message] The = Troponin-I) system which g enerated this result transmit yariel reference range : <=0.40. The reference r chasity was not used to interpr et this result as anil l/abnormal. [facility] EchelonCHEM [id number] 05:17:00 Test Item Value Reference Range Interpretation Comments eGFR (test code = eGFR) 53 [facility] HospitalNEMOPTICCHEM [id number] 05:17:00 Test Item Value Reference Range Interpretation Comments Chloride Lvl (test code = Chloride Lvl) 105 95-109 [facility] HeadCount [id number] 05:17:00 Test Item Value Reference Range Interpretation Comments CO2 (test code = CO2) 31 24-32 [facility] Diagnostic PhotonicsannCHEM [id number] 05:17:00 Test Item Value Reference Range Interpretation Comments Potassium Lvl (test code = Potassium 4.5 3.5-5.1 Lvl) [facility] HeadCount [id number] 05:17:00 Test Item Value Reference Range Interpretation Comments Sodium Lvl (test code = Sodium Lvl) 142 135-145 [facility]2018-09-14 05:17:00 Test Item Value Reference Range Interpretation Comments BUN (test code = BUN) 15 7-22 [facility]2018-09-14 05:17:00 Test Item Value Reference Range Interpretation Comments Creatinine Lvl (test code = Creatinine 1.15 0.50-1.40 Lvl) [facility]2018-09-14 05:17:00 Test Item Value Reference Range Interpretation Comments Calcium Lvl (test code = Calcium Lvl) 8.6 8.5-10.5 [facility]2018-09-14 05:17:00 Test Item Value Reference Range Interpretation Comments AGAP (test code = AGAP) 10.5 10.0-20.0 [facility]2018-09-14 05:17:00 Test Item Value Reference Range Interpretation Comments Glucose Lvl (test code = Glucose Lvl) 100 70-99 [facility] CenterXibzpmxGGXXTVXOBD9143-40-20 05:17:00 Test Item Value Reference Range Interpretation Comments Hct (test code = Hct) 38.9 36.0-48.0 [facility] CenterJcghzukGVBMGEVYSQ5631-95-70 05:17:00 Test Item Value Reference Range Interpretation Comments Hgb (test code = Hgb) 13.5 12.0-16.0 [facility] CenterTajjroxTVOBTIKLLD8742-07-21 05:17:00 Test Item Value Reference Range Interpretation Comments Platelet (test code = Platelet) 133 133-450 [facility] CenterHqydvaeUHBYBDXJYI3347-48-58 05:17:00 Test Item Value Reference Range Interpretation Comments MCHC (test code = MCHC) 34.7 32.0-36.0 [facility] CenterKufmsihMIROTNOUVU5629-82-52 05:17:00 Test Item Value Reference Range Interpretation Comments MCV (test code = MCV) 96.7 80.0-98.0 [facility] CenterUmajvouENZGVMKDZF3981-83-87 05:17:00 Test Item Value Reference Range Interpretation Comments RDW (test code = RDW) 12.9 11.5-14.5 [facility] CenterUloeswwHTFDYFCQER4813-96-08 05:17:00 Test Item Value Reference Range Interpretation Comments MCH (test code = MCH) 33.6 pg 27.0-31.0 [facility] HospitalQralrjjSSCSERPWHS4870-20-46 05:17:00 Test Item Value Reference Range Interpretation Comments WBC (test code = WBC) 3.9 3.7-10.4 [facility] HospitalCywejanILDRPOMTRT4719-27-47 05:17:00 Test Item Value Reference Range Interpretation Comments RBC (test code = RBC) 4.02 4.20-5.40 [facility] HospitalEtxecgrQGVMZR6874-80-87 05:17:00 Test Item Value Reference Range Interpretation Comments VLDL (test code = VLDL) 44 1 [facility] HospitalOeprwsqWYOAUR7830-58-51 05:17:00 Test Item Value Reference Range Interpretation Comments LDL (Calculated) (test code = LDL 87 (Calculated)) [facility] HospitalUezyywpMPBHUM7252-97-53 05:17:00 Test Item Value Reference Range Interpretation Comments HDL (test code = HDL) 49 [facility] HospitalRhxzazpDECMIG5093-94-61 05:17:00 Test Item Value Reference Range Interpretation Comments Chol (test code = Chol) 180 [facility] HospitalNwjzzdeIHUMBJ5823-93-16 05:17:00 Test Item Value Reference Range Interpretation Comments Trig (test code = Trig) 220 [facility] HospitalLgbbysfIGMDNH9945-31-83 05:17:00 Test Item Value Reference Range Interpretation Comments CHD Risk (test code = CHD Risk) 3.67 1 3.90-5.80 [facility] YLBIGWEAK9499-52-81 05:17:00 Test Item Value Reference Range Interpretation Comments Hgb A1C (test code = Hgb A1C) 5.5 [facility] [id number] 05:17:00 Test Item Value Reference Range Interpretation Comments Troponin-I (test code no gt See_Comment [Auto mated message] The = Troponin-I) system which g enerated this result transmit yariel reference range : <=0.40. The reference r chasity was not used to interpr et this result as anil l/abnormal. [facility] HospitalNEMOPTICCHEM [id number] 05:17:00 Test Item Value Reference Range Interpretation Comments eGFR (test code = eGFR) 53 [facility] HospitalNEMOPTICCHEM [id number] 05:17:00 Test Item Value Reference Range Interpretation Comments Chloride Lvl (test code = Chloride Lvl) 105 95-109 [facility] HospitalTriblio [id number] 05:17:00 Test Item Value Reference Range Interpretation Comments CO2 (test code = CO2) 31 24-32 [facility]2018-09-14 05:17:00 Test Item Value Reference Range Interpretation Comments Potassium Lvl (test code = Potassium 4.5 3.5-5.1 Lvl) [facility]2018-09-14 05:17:00 Test Item Value Reference Range Interpretation Comments Sodium Lvl (test code = Sodium Lvl) 142 135-145 [facility]2018-09-14 05:17:00 Test Item Value Reference Range Interpretation Comments BUN (test code = BUN) 15 7-22 [facility]2018-09-14 05:17:00 Test Item Value Reference Range Interpretation Comments Creatinine Lvl (test code = Creatinine 1.15 0.50-1.40 Lvl) [facility]2018-09-14 05:17:00 Test Item Value Reference Range Interpretation Comments Calcium Lvl (test code = Calcium Lvl) 8.6 8.5-10.5 [facility]2018-09-14 05:17:00 Test Item Value Reference Range Interpretation Comments AGAP (test code = AGAP) 10.5 10.0-20.0 [facility]2018-09-14 05:17:00 Test Item Value Reference Range Interpretation Comments Glucose Lvl (test code = Glucose Lvl) 100 70-99 [facility] CenterYisutsoKFYCDAVTGT2628-28-91 05:17:00 Test Item Value Reference Range Interpretation Comments Hct (test code = Hct) 38.9 36.0-48.0 [facility] CenterKvnpvkvSEKRXVOXPU1021-71-92 05:17:00 Test Item Value Reference Range Interpretation Comments Hgb (test code = Hgb) 13.5 12.0-16.0 [facility] CenterJjfrfknKDDZUHFSMQ2823-30-33 05:17:00 Test Item Value Reference Range Interpretation Comments MPV (test code = MPV) 9.0 7.4-10.4 [facility] CenterDyggfqmBEBZQRUBDA1067-22-96 05:17:00 Test Item Value Reference Range Interpretation Comments Platelet (test code = Platelet) 133 133-450 [facility] CenterWgfwskxWJQMJGMCDH9020-88-03 05:17:00 Test Item Value Reference Range Interpretation Comments MCHC (test code = MCHC) 34.7 32.0-36.0 [facility]AxpaosnDWMATMKKFY4655-67-74 05:17:00 Test Item Value Reference Range Interpretation Comments MCV (test code = MCV) 96.7 80.0-98.0 [facility] HospitalQcwnafrFUIOEKCDEY3930-84-13 05:17:00 Test Item Value Reference Range Interpretation Comments RDW (test code = RDW) 12.9 11.5-14.5 [facility] HospitalUlqhvzoPDWQTTNSCF1184-62-71 05:17:00 Test Item Value Reference Range Interpretation Comments MCH (test code = MCH) 33.6 pg 27.0-31.0 [facility] HospitalQzrgzklSSFUVAFVON9724-23-10 05:17:00 Test Item Value Reference Range Interpretation Comments WBC (test code = WBC) 3.9 3.7-10.4 [facility] HospitalQvolnpmHHMJMONZXM6566-96-07 05:17:00 Test Item Value Reference Range Interpretation Comments RBC (test code = RBC) 4.02 4.20-5.40 [facility] HospitalFwmonfwMZNAFE3577-77-42 05:17:00 Test Item Value Reference Range Interpretation Comments VLDL (test code = VLDL) 44 1 [facility] HospitalIpybiarLJZSJQ8936-83-25 05:17:00 Test Item Value Reference Range Interpretation Comments LDL (Calculated) (test code = LDL 87 (Calculated)) [facility] HospitalAvestvqSMXMOW3244-60-61 05:17:00 Test Item Value Reference Range Interpretation Comments HDL (test code = HDL) 49 [facility] HospitalSpgzcbyZUXIET6022-26-62 05:17:00 Test Item Value Reference Range Interpretation Comments Chol (test code = Chol) 180 [facility] HospitalVuiskeqOOFOUM5337-16-81 05:17:00 Test Item Value Reference Range Interpretation Comments Trig (test code = Trig) 220 [facility] HospitalBiyvcnpHSCOCA6532-96-15 05:17:00 Test Item Value Reference Range Interpretation Comments CHD Risk (test code = CHD Risk) 3.67 1 3.90-5.80 [facility] UZJNOXQTW9748-94-38 05:17:00 Test Item Value Reference Range Interpretation Comments Hgb A1C (test code = Hgb A1C) 5.5 [facility] [id number] 23:18:00 Test Item Value Reference Range Interpretation Comments Troponin-I (test code no gt See_Comment [Auto mated message] The = Troponin-I) system which g enerated this result transmit yariel reference range : <=0.40. The reference r chasity was not used to interpr et this result as anil l/abnormal. [facility] [id number] 23:18:00 Test Item Value Reference Range Interpretation Comments Troponin-I (test code no gt See_Comment [Auto mated message] The = Troponin-I) system which g enerated this result transmit yariel reference range : <=0.40. The reference r chasity was not used to interpr et this result as anil l/abnormal. [facility] [id number] 23:18:00 Test Item Value Reference Range Interpretation Comments Troponin-I (test code no gt See_Comment [Auto mated message] The = Troponin-I) system which g enerated this result transmit yariel reference range : <=0.40. The reference r chasity was not used to interpr et this result as anil l/abnormal. [facility] [id number] 18:29:00 Test Item Value Reference Range Interpretation Comments Lactic Acid Lvl (test code = Lactic 0.7 0.5-2.2 Acid Lvl) [facility] [id number] 18:29:00 Test Item Value Reference Range Interpretation Comments Lipase Lvl (test code = Lipase Lvl) [address] [place], [place] [id number] 18:29:00 Test Item Value Reference Range Interpretation Comments Lactic Acid Lvl (test code = Lactic 0.7 0.5-2.2 Acid Lvl) [facility]2018-09-13 18:29:00 Test Item Value Reference Range Interpretation Comments Lipase Lvl (test code = Lipase Lvl) [address] [place], [place] [id number] 18:29:00 Test Item Value Reference Range Interpretation Comments Lactic Acid Lvl (test code = Lactic 0.7 0.5-2.2 Acid Lvl) [facility] [id number] 18:29:00 Test Item Value Reference Range Interpretation Comments Lipase Lvl (test code = Lipase Lvl) [address] [place] [id number] 17:49:00 Test Item Value Reference Range Interpretation Comments Troponin-I (test code no gt See_Comment [Auto mated message] The = Troponin-I) system which g enerated this result transmit yariel reference range : <=0.40. The reference r chasity was not used to interpr et this result as anil l/abnormal. [facility] [id number] 17:49:00 Test Item Value Reference Range Interpretation Comments Troponin-I (test code no gt See_Comment [Auto mated message] The = Troponin-I) system which g enerated this result transmit yariel reference range : <=0.40. The reference r chasity was not used to interpr et this result as anil l/abnormal. [facility] [id number] 17:49:00 Test Item Value Reference Range Interpretation Comments Troponin-I (test code no gt See_Comment [Auto mated message] The = Troponin-I) system which g enerated this result transmit yariel reference range : <=0.40. The reference r chasity was not used to interpr et this result as anil l/abnormal. [id number] 15:16:00 Test Item Value Reference Range Interpretation Comments Hgb (test code = Hgb) 15.2 12.0-16.0 [facility] Cent[id number] 15:16:00 Test Item Value Reference Range Interpretation Comments RBC (test code = RBC) 4.61 4.20-5.40 [facility] CenterGeeyosfRDBQBHZWYJ1274-74-88 15:16:00 Test Item Value Reference Range Interpretation Comments MCHC (test code = MCHC) 33.6 32.0-36.0 [id number] 15:16:00 Test Item Value Reference Range Interpretation Comments Hct (test code = Hct) 45.3 36.0-48.0 [facility] Cent[id number] 15:16:00 Test Item Value Reference Range Interpretation Comments MCV (test code = MCV) 98.2 80.0-98.0 [facility] CenterTsayeprJIAMJGBDUK1421-27-32 15:16:00 Test Item Value Reference Range Interpretation Comments MCH (test code = MCH) 33.0 pg 27.0-31.0 [facility] [id number] 15:16:00 Test Item Value Reference Range Interpretation Comments MPV (test code = MPV) 8.8 7.4-10.4 [facility] Cent[id number] 15:16:00 Test Item Value Reference Range Interpretation Comments RDW (test code = RDW) 12.6 11.5-14.5 [facility] CenterZntjvgsPLGUILUSWJ6471-65-79 15:16:00 Test Item Value Reference Range Interpretation Comments Platelet (test code = Platelet) 163 133-450 [facility] C[id number] 15:16:00 Test Item Value Reference Range Interpretation Comments Lymphocytes (test code = Lymphocytes) 39.1 20.0-40.0 [facility] CenterItuxhnhZHLGEYKEYL6266-51-25 15:16:00 Test Item Value Reference Range Interpretation Comments Eosinophils (test code = 2.5 See_Comment [A utomated message] The Eosinophils) system which ge nerated this result tra nsmitted reference range : <=4.0. The reference r chasity was not used to int erpret this result as normal/abnormal . [facility] CenterDetjqpkSWBBMGIGVZ5154-50-75 15:16:00 Test Item Value Reference Range Interpretation Comments Segs (test code = Segs) 50.6 45.0-75.0 [facility] CenterEvfziwdXAAXAGSYHM7452-16-70 15:16:00 Test Item Value Reference Range Interpretation Comments Lymphocytes # (test code = Lymphocytes 1.9 1.0-5.5 #) [facility] CenterYhwnesyDHQRODWRFV7567-16-94 15:16:00 Test Item Value Reference Range Interpretation Comments Neutrophils # (test code = Neutrophils 2.5 1.5-8.1 #) [facility] CenterDohnsobINJVJQHKWM7447-42-55 15:16:00 Test Item Value Reference Range Interpretation Comments Monocytes (test code = Monocytes) 7.1 2.0-12.0 [facility] [id number] 15:16:00 Test Item Value Reference Range Interpretation Comments Basophils (test code = 0.7 See_Comment [Aut omated message] The Basophils) system which ge nerated this result tra nsmitted reference range : <=1.0. The reference r chasity was not used to int erpret this result as normal/abnormal . [facility] CenterCmvdwceOMQHHXBZMI8196-18-84 15:16:00 Test Item Value Reference Range Interpretation Comments Eosinophils # (test code 0.1 See_Comment [A utomated message] The = Eosinophils #) system whic h generated this result tra nsmitted reference range : <=0.5. The reference r chasity was not used to int erpret this result as normal/abnormal . [facility] HospitalHgcyqbyKXZSWGVQFT0317-86-53 15:16:00 Test Item Value Reference Range Interpretation Comments Monocytes # (test code 0.3 See_Comment [Aut omated message] The = Monocytes #) system which generated this result tra nsmitted reference range : <=0.8. The reference r chasity was not used to int erpret this result as normal/abnormal . [facility]UN[facility] [id number] 15:16:00 Test Item Value Reference Range Interpretation Comments Total CK (test code = Total CK) 109 12-191 [facility] [id number] 15:16:00 Test Item Value Reference Range Interpretation Comments proBNP (test code = 64 See_Comment [Automa yariel message] The proBNP) system which ge nerated this result tra nsmitted reference range : <=125. The reference r chasity was not used to int erpret this result as anil l/abnormal. [facility] [id number] 15:16:00 Test Item Value Reference Range Interpretation Comments A/G Ratio (test code = A/G Ratio) 1.2 1 0.7-1.6 [facility]2018-09-13 15:16:00 Test Item Value Reference Range Interpretation Comments Globulin (test code = Globulin) 3.3 2.7-4.2 [facility]2018-09-13 15:16:00 Test Item Value Reference Range Interpretation Comments B/C Ratio (test code = B/C Ratio) 16 1 6-25 [facility]2018-09-13 15:16:00 Test Item Value Reference Range Interpretation Comments AGAP (test code = AGAP) 12.0 10.0-20.0 [facility]2018-09-13 15:16:00 Test Item Value Reference Range Interpretation Comments eGFR (test code = eGFR) 83 [facility]2018-09-13 15:16:00 Test Item Value Reference Range Interpretation Comments Bili Total (test code = Bili Total) 0.5 0.2-1.3 [facility] [id number] 15:16:00 Test Item Value Reference Range Interpretation Comments Alk Phos (test code = Alk Phos) 82 39-136 [facility]2018-09-13 15:16:00 Test Item Value Reference Range Interpretation Comments ALT (test code = ALT) 28 See_Comment [Auto mated message] The system which ge nerated this result transmit yariel reference range : <=65. The reference range was not used to interpr et this result as anil l/abnormal. [facility]2018-09-13 15:16:00 Test Item Value Reference Range Interpretation Comments AST (test code = AST) 13 See_Comment [Auto mated message] The system which ge nerated this result transmit yariel reference range : <=37. The reference range was not used to interpr et this result as anil l/abnormal. [facility]2018-09-13 15:16:00 Test Item Value Reference Range Interpretation Comments Total Protein (test code = Total 7.1 6.4-8.4 Protein) [facility]2018-09-13 15:16:00 Test Item Value Reference Range Interpretation Comments Calcium Lvl (test code = Calcium Lvl) 9.6 8.5-10.5 [facility]2018-09-13 15:16:00 Test Item Value Reference Range Interpretation Comments CO2 (test code = CO2) 28 24-32 [facility]2018-09-13 15:16:00 Test Item Value Reference Range Interpretation Comments Potassium Lvl (test code = Potassium 4.0 3.5-5.1 Lvl) [facility]2018-09-13 15:16:00 Test Item Value Reference Range Interpretation Comments Chloride Lvl (test code = Chloride Lvl) 110 95-109 [facility]2018-09-13 15:16:00 Test Item Value Reference Range Interpretation Comments Sodium Lvl (test code = Sodium Lvl) 146 135-145 [facility]2018-09-13 15:16:00 Test Item Value Reference Range Interpretation Comments Creatinine Lvl (test code = Creatinine 0.79 0.50-1.40 Lvl) [facility]2018-09-13 15:16:00 Test Item Value Reference Range Interpretation Comments BUN (test code = BUN) 13 7-22 [facility]2018-09-13 15:16:00 Test Item Value Reference Range Interpretation Comments Glucose Lvl (test code = Glucose Lvl) 89 70-99 [facility]2018-09-13 15:16:00 Test Item Value Reference Range Interpretation Comments Albumin Lvl (test code = Albumin Lvl) 3.8 3.5-5.0 [facility]2018-09-13 15:16:00 Test Item Value Reference Range Interpretation Comments Magnesium Lvl (test code = Magnesium 2.3 1.8-2.4 Lvl) [facility]2018-09-13 15:16:00 Test Item Value Reference Range Interpretation Comments Phosphorus (test code = Phosphorus) 3.7 2.5-4.5 [facility] CenterMbgk[id number] 15:16:00 Test Item Value Reference Range Interpretation Comments S Preg (test code = S Negative *NA*(04/15/18 Preg) 10:16 AM) [facility] Cent[id number] 15:16:00 Test Item Value Reference Range Interpretation Comments WBC (test code = WBC) 4.9 3.7-10.4 [facility] CenterVfekoppZITCXBOAMV7237-65-86 15:16:00 Test Item Value Reference Range Interpretation Comments Hgb (test code = Hgb) 15.2 12.0-16.0 [facility] CenterOzhiduvMETDCVXXHB2153-94-15 15:16:00 Test Item Value Reference Range Interpretation Comments RBC (test code = RBC) 4.61 4.20-5.40 [facility] CenterAnyltizRFMANDKASW0853-10-81 15:16:00 Test Item Value Reference Range Interpretation Comments MCHC (test code = MCHC) 33.6 32.0-36.0 [facility] CenterVfxmnuqQFGHNDBQPB9262-00-50 15:16:00 Test Item Value Reference Range Interpretation Comments Hct (test code = Hct) 45.3 36.0-48.0 [facility] CenterRxzrlyaJSHYIIPMFA4407-85-96 15:16:00 Test Item Value Reference Range Interpretation Comments MCV (test code = MCV) 98.2 80.0-98.0 [facility] CenterVuaakihVTBOCILSVA1729-66-43 15:16:00 Test Item Value Reference Range Interpretation Comments MCH (test code = MCH) 33.0 pg 27.0-31.0 [facility] CenterK[id number] 15:16:00 Test Item Value Reference Range Interpretation Comments MPV (test code = MPV) 8.8 7.4-10.4 [facility] CenterOblgmiqIQZSOJVQLE8621-77-13 15:16:00 Test Item Value Reference Range Interpretation Comments RDW (test code = RDW) 12.6 11.5-14.5 [facility] CenterWbojadeLBZXKFYHZF7579-31-81 15:16:00 Test Item Value Reference Range Interpretation Comments Platelet (test code = Platelet) 163 133-450 [facility] CenterYnjoayeNPFNFZOHPR5334-03-82 15:16:00 Test Item Value Reference Range Interpretation Comments Lymphocytes (test code = Lymphocytes) 39.1 20.0-40.0 [facility] CenterMvhmcusICTXVEMFHE3850-16-32 15:16:00 Test Item Value Reference Range Interpretation Comments Eosinophils (test code = 2.5 See_Comment [A utomated message] The Eosinophils) system which ge nerated this result tra nsmitted reference range : <=4.0. The reference r chasity was not used to int erpret this result as normal/abnormal . [facility] CenterIpvdbeuLDFFRAXHEJ3117-74-70 15:16:00 Test Item Value Reference Range Interpretation Comments Segs (test code = Segs) 50.6 45.0-75.0 [facility] CenterHmsyihqNLIHZKVCXT6434-48-12 15:16:00 Test Item Value Reference Range Interpretation Comments Lymphocytes # (test code = Lymphocytes 1.9 1.0-5.5 #) [facility] CenterLxjljsaVYYWGZYOOQ5402-36-84 15:16:00 Test Item Value Reference Range Interpretation Comments Neutrophils # (test code = Neutrophils 2.5 1.5-8.1 #) [facility] CenterTmbbgyqJDUVBWDKKM4987-66-08 15:16:00 Test Item Value Reference Range Interpretation Comments Monocytes (test code = Monocytes) 7.1 2.0-12.0 [facility] CenterIqgsbpcEOIMGGTNXL6744-79-24 15:16:00 Test Item Value Reference Range Interpretation Comments Basophils (test code = 0.7 See_Comment [Aut omated message] The Basophils) system which ge nerated this result tra nsmitted reference range : <=1.0. The reference r chasity was not used to int erpret this result as normal/abnormal . [facility] CenterSuohvikHOZNLABNXE2015-56-80 15:16:00 Test Item Value Reference Range Interpretation Comments Eosinophils # (test code 0.1 See_Comment [A utomated message] The = Eosinophils #) system whic h generated this result tra nsmitted reference range : <=0.5. The reference r chasity was not used to int erpret this result as normal/abnormal . [facility] HospitalOpbmiyqHCQYXAPEZL0462-71-28 15:16:00 Test Item Value Reference Range Interpretation Comments Monocytes # (test code 0.3 See_Comment [Aut omated message] The = Monocytes #) system which generated this result tra nsmitted reference range : <=0.8. The reference r chasity was not used to int erpret this result as normal/abnormal . [facility]UN[facility] [id number] 15:16:00 Test Item Value Reference Range Interpretation Comments Total CK (test code = Total CK) 109 12-191 [facility] [id number] 15:16:00 Test Item Value Reference Range Interpretation Comments proBNP (test code = 64 See_Comment [Automa yariel message] The proBNP) system which ge nerated this result tra nsmitted reference range : <=125. The reference r chasity was not used to int erpret this result as anil l/abnormal. [facility] [id number] 15:16:00 Test Item Value Reference Range Interpretation Comments A/G Ratio (test code = A/G Ratio) 1.2 1 0.7-1.6 [facility] [id number] 15:16:00 Test Item Value Reference Range Interpretation Comments Globulin (test code = Globulin) 3.3 2.7-4.2 [facility] [id number] 15:16:00 Test Item Value Reference Range Interpretation Comments B/C Ratio (test code = B/C Ratio) 16 1 6-25 [facility] [id number] 15:16:00 Test Item Value Reference Range Interpretation Comments AGAP (test code = AGAP) 12.0 10.0-20.0 [facility] [id number] 15:16:00 Test Item Value Reference Range Interpretation Comments eGFR (test code = eGFR) 83 [facility] [id number] 15:16:00 Test Item Value Reference Range Interpretation Comments Bili Total (test code = Bili Total) 0.5 0.2-1.3 [facility]2018-09-13 15:16:00 Test Item Value Reference Range Interpretation Comments Alk Phos (test code = Alk Phos) 82 39-136 [facility]2018-09-13 15:16:00 Test Item Value Reference Range Interpretation Comments ALT (test code = ALT) 28 See_Comment [Auto mated message] The system which ge nerated this result transmit yariel reference range : <=65. The reference range was not used to interpr et this result as anil l/abnormal. [facility]2018-09-13 15:16:00 Test Item Value Reference Range Interpretation Comments AST (test code = AST) 13 See_Comment [Auto mated message] The system which ge nerated this result transmit yariel reference range : <=37. The reference range was not used to interpr et this result as anil l/abnormal. [place] [id number] 15:16:00 Test Item Value Reference Range Interpretation Comments Total Protein (test code = Total 7.1 6.4-8.4 Protein) [facility]2018-09-13 15:16:00 Test Item Value Reference Range Interpretation Comments Calcium Lvl (test code = Calcium Lvl) 9.6 8.5-10.5 [facility]2018-09-13 15:16:00 Test Item Value Reference Range Interpretation Comments CO2 (test code = CO2) 28 24-32 [place] [id number] 15:16:00 Test Item Value Reference Range Interpretation Comments Potassium Lvl (test code = Potassium 4.0 3.5-5.1 Lvl) [facility]2018-09-13 15:16:00 Test Item Value Reference Range Interpretation Comments Chloride Lvl (test code = Chloride Lvl) 110 95-109 [facility]2018-09-13 15:16:00 Test Item Value Reference Range Interpretation Comments Sodium Lvl (test code = Sodium Lvl) 146 135-145 [facility]2018-09-13 15:16:00 Test Item Value Reference Range Interpretation Comments Creatinine Lvl (test code = Creatinine 0.79 0.50-1.40 Lvl) [facility]2018-09-13 15:16:00 Test Item Value Reference Range Interpretation Comments BUN (test code = BUN) 13 7-22 [facility]2018-09-13 15:16:00 Test Item Value Reference Range Interpretation Comments Glucose Lvl (test code = Glucose Lvl) 89 70-99 [facility]2018-09-13 15:16:00 Test Item Value Reference Range Interpretation Comments Albumin Lvl (test code = Albumin Lvl) 3.8 3.5-5.0 [facility]2018-09-13 15:16:00 Test Item Value Reference Range Interpretation Comments Magnesium Lvl (test code = Magnesium 2.3 1.8-2.4 Lvl) [facility]2018-09-13 15:16:00 Test Item Value Reference Range Interpretation Comments Phosphorus (test code = Phosphorus) 3.7 2.5-4.5 [place] [id number] 15:16:00 Test Item Value Reference Range Interpretation Comments S Preg (test code = S Negative *NA*(04/15/18 Preg) 10:16 AM) [facility] CenterY[id number] 15:16:00 Test Item Value Reference Range Interpretation Comments WBC (test code = WBC) 4.9 3.7-10.4 [facility] CenterZwphfzmSVMYMGWDJB6805-95-72 15:16:00 Test Item Value Reference Range Interpretation Comments Hgb (test code = Hgb) 15.2 12.0-16.0 [facility] CenterUrrahecVIOTDQYJHI4583-43-44 15:16:00 Test Item Value Reference Range Interpretation Comments RBC (test code = RBC) 4.61 4.20-5.40 [facility] CenterAtsbauxAUXGOPXBUU7827-65-19 15:16:00 Test Item Value Reference Range Interpretation Comments MCHC (test code = MCHC) 33.6 32.0-36.0 [facility] CenterCecadvaSSMDQPKBED7929-55-42 15:16:00 Test Item Value Reference Range Interpretation Comments Hct (test code = Hct) 45.3 36.0-48.0 [facility] CenterQlxpsfbJLVVDBOHCL3328-69-72 15:16:00 Test Item Value Reference Range Interpretation Comments MCV (test code = MCV) 98.2 80.0-98.0 [facility] CenterKodhaqlFSDVHANQVU3857-50-55 15:16:00 Test Item Value Reference Range Interpretation Comments MCH (test code = MCH) 33.0 pg 27.0-31.0 [facility] CenterShjukwtBBZSSUBWUB5100-12-11 15:16:00 Test Item Value Reference Range Interpretation Comments MPV (test code = MPV) 8.8 7.4-10.4 [facility] CenterJpvbxtsCRAVADBDBG7319-97-97 15:16:00 Test Item Value Reference Range Interpretation Comments RDW (test code = RDW) 12.6 11.5-14.5 [facility] C[id number] 15:16:00 Test Item Value Reference Range Interpretation Comments Platelet (test code = Platelet) 163 133-450 [facility] CenterOuebfsaQUVNMCBFHT8840-57-49 15:16:00 Test Item Value Reference Range Interpretation Comments Lymphocytes (test code = Lymphocytes) 39.1 20.0-40.0 [facility] CenterMqmouvrKHOOOESQTO2038-88-15 15:16:00 Test Item Value Reference Range Interpretation Comments Eosinophils (test code = 2.5 See_Comment [A utomated message] The Eosinophils) system which ge nerated this result tra nsmitted reference range : <=4.0. The reference r chasity was not used to int erpret this result as normal/abnormal . [facility] CenterXhdbqisVMUHYBMZLV7881-32-72 15:16:00 Test Item Value Reference Range Interpretation Comments Segs (test code = Segs) 50.6 45.0-75.0 [facility] CenterC[id number] 15:16:00 Test Item Value Reference Range Interpretation Comments Lymphocytes # (test code = Lymphocytes 1.9 1.0-5.5 #) [facility] CenterYkovxkaSWWYLMURFL0806-28-68 15:16:00 Test Item Value Reference Range Interpretation Comments Neutrophils # (test code = Neutrophils 2.5 1.5-8.1 #) [facility] CenterLzmzfszLUNGBIHFTQ8841-08-53 15:16:00 Test Item Value Reference Range Interpretation Comments Monocytes (test code = Monocytes) 7.1 2.0-12.0 [facility] CenterNoinxudLKWCNBVUBD8065-48-74 15:16:00 Test Item Value Reference Range Interpretation Comments Basophils (test code = 0.7 See_Comment [Aut omated message] The Basophils) system which ge nerated this result tra nsmitted reference range : <=1.0. The reference r chasity was not used to int erpret this result as normal/abnormal . [facility] CenterDshmvddGZYYWARQUA7286-76-18 15:16:00 Test Item Value Reference Range Interpretation Comments Eosinophils # (test code 0.1 See_Comment [A utomated message] The = Eosinophils #) system whic h generated this result tra nsmitted reference range : <=0.5. The reference r chasity was not used to int erpret this result as normal/abnormal . [facility] HospitalEyrvjnnNVAYFTLCMY5058-82-36 15:16:00 Test Item Value Reference Range Interpretation Comments Monocytes # (test code 0.3 See_Comment [Aut omated message] The = Monocytes #) system which generated this result tra nsmitted reference range : <=0.8. The reference r chasity was not used to int erpret this result as normal/abnormal . [facility] [id number] 15:16:00 Test Item Value Reference Range Interpretation Comments Total CK (test code = Total CK) 109 12-191 [facility] [id number] 15:16:00 Test Item Value Reference Range Interpretation Comments proBNP (test code = 64 See_Comment [Automa yariel message] The proBNP) system which ge nerated this result tra nsmitted reference range : <=125. The reference r chasity was not used to int erpret this result as anil l/abnormal. [facility] HeadCount [id number] 15:16:00 Test Item Value Reference Range Interpretation Comments A/G Ratio (test code = A/G Ratio) 1.2 1 0.7-1.6 [facility] Ho[id number] 15:16:00 Test Item Value Reference Range Interpretation Comments Globulin (test code = Globulin) 3.3 2.7-4.2 [facility] [id number] 15:16:00 Test Item Value Reference Range Interpretation Comments B/C Ratio (test code = B/C Ratio) 16 1 6-25 [facility] [employer]2018-09-13 15:16:00 Test Item Value Reference Range Interpretation Comments AGAP (test code = AGAP) 12.0 10.0-20.0 [facility] [id number] 15:16:00 Test Item Value Reference Range Interpretation Comments eGFR (test code = eGFR) 83 [facility] [id number] 15:16:00 Test Item Value Reference Range Interpretation Comments Bili Total (test code = Bili Total) 0.5 0.2-1.3 [facility]2018-09-13 15:16:00 Test Item Value Reference Range Interpretation Comments Alk Phos (test code = Alk Phos) 82 39-136 [facility]2018-09-13 15:16:00 Test Item Value Reference Range Interpretation Comments ALT (test code = ALT) 28 See_Comment [Auto mated message] The system which ge nerated this result transmit yariel reference range : <=65. The reference range was not used to interpr et this result as anil l/abnormal. [facility]2018-09-13 15:16:00 Test Item Value Reference Range Interpretation Comments AST (test code = AST) 13 See_Comment [Auto mated message] The system which ge nerated this result transmit yariel reference range : <=37. The reference range was not used to interpr et this result as anil l/abnormal. [facility]2018-09-13 15:16:00 Test Item Value Reference Range Interpretation Comments Total Protein (test code = Total 7.1 6.4-8.4 Protein) [facility]2018-09-13 15:16:00 Test Item Value Reference Range Interpretation Comments Calcium Lvl (test code = Calcium Lvl) 9.6 8.5-10.5 [facility]2018-09-13 15:16:00 Test Item Value Reference Range Interpretation Comments CO2 (test code = CO2) 28 24-32 [facility]2018-09-13 15:16:00 Test Item Value Reference Range Interpretation Comments Potassium Lvl (test code = Potassium 4.0 3.5-5.1 Lvl) [facility]2018-09-13 15:16:00 Test Item Value Reference Range Interpretation Comments Chloride Lvl (test code = Chloride Lvl) 110 95-109 [facility]2018-09-13 15:16:00 Test Item Value Reference Range Interpretation Comments Sodium Lvl (test code = Sodium Lvl) 146 135-145 [facility]2018-09-13 15:16:00 Test Item Value Reference Range Interpretation Comments Creatinine Lvl (test code = Creatinine 0.79 0.50-1.40 Lvl) [facility]2018-09-13 15:16:00 Test Item Value Reference Range Interpretation Comments BUN (test code = BUN) 13 7-22 [facility]2018-09-13 15:16:00 Test Item Value Reference Range Interpretation Comments Glucose Lvl (test code = Glucose Lvl) 89 70-99 [facility]2018-09-13 15:16:00 Test Item Value Reference Range Interpretation Comments Albumin Lvl (test code = Albumin Lvl) 3.8 3.5-5.0 [facility]2018-09-13 15:16:00 Test Item Value Reference Range Interpretation Comments Magnesium Lvl (test code = Magnesium 2.3 1.8-2.4 Lvl) [facility]2018-09-13 15:16:00 Test Item Value Reference Range Interpretation Comments Phosphorus (test code = Phosphorus) 3.7 2.5-4.5 [id number] 15:16:00 Test Item Value Reference Range Interpretation Comments S Preg (test code = S Negative *NA*(04/15/18 Preg) 10:16 AM) [id number] 15:16:00 Test Item Value Reference Range Interpretation Comments WBC (test code = WBC) 4.9 3.7-10.4 [facility] [id number] 18:17:00 Test Item Value Reference Range Interpretation Comments Troponin-I (test code no gt See_Comment [Auto mated message] The = Troponin-I) system which g enerated this result transmit yariel reference range : <=0.40. The reference r chasity was not used to interpr et this result as anil l/abnormal. [facility]UN[facility] [id number] 18:17:00 Test Item Value Reference Range Interpretation Comments Troponin-I (test code no gt See_Comment [Auto mated message] The = Troponin-I) system which g enerated this result transmit yariel reference range : <=0.40. The reference r chasity was not used to interpr et this result as anil l/abnormal. [facility]Five [facility]esUN[facility] [id number] 18:17:00 Test Item Value Reference Range Interpretation Comments Troponin-I (test code no gt See_Comment [Auto mated message] The = Troponin-I) system which g enerated this result transmit yariel reference range : <=0.40. The reference r chasity was not used to interpr et this result as anil l/abnormal. [employer]2018-05-14 12:22:00 Test Item Value Reference Range Interpretation Comments CK MB Index (test 2.7 1 See_Comment [Automate d message] The code = CK MB Index) system w [facility] generated this result transmit yariel reference range : <=2.5. The reference range was not used to interpr et this result as anil l/abnormal. [employer]2018-05-14 12:22:00 Test Item Value Reference Range Interpretation Comments Troponin-I (test code no gt See_Comment [Auto mated message] The = Troponin-I) system which g enerated this result transmit yariel reference range : <=0.40. The reference r chasity was not used to interpr et this result as anil l/abnormal. [employer]2018-05-14 12:22:00 Test Item Value Reference Range Interpretation Comments Total CK (test code = Total CK) 119 12-191 [facility]2018-05-14 12:22:00 Test Item Value Reference Range Interpretation Comments CK MB (test code = CK MB) 3.2 0.5-3.6 [facility] [employer]2018-05-14 12:22:00 Test Item Value Reference Range Interpretation Comments eGFR (test code = eGFR) 87 [facility] [employer]2018-05-14 12:22:00 Test Item Value Reference Range Interpretation Comments Globulin (test code = Globulin) 3.1 2.7-4.2 [facility] [employer]2018-05-14 12:22:00 Test Item Value Reference Range Interpretation Comments Alk Phos (test code = Alk Phos) 78 39-136 [employer]2018-05-14 12:22:00 Test Item Value Reference Range Interpretation Comments AST (test code = AST) 12 See_Comment [Auto mated message] The system which ge nerated this result transmit yariel reference range : <=37. The reference range was not used to interpr et this result as anil l/abnormal. [employer]2018-05-14 12:22:00 Test Item Value Reference Range Interpretation Comments ALT (test code = ALT) 24 See_Comment [Auto mated message] The system which ge nerated this result transmit yariel reference range : <=65. The reference range was not used to interpr et this result as anil l/abnormal. [facility]2018-05-14 12:22:00 Test Item Value Reference Range Interpretation Comments Albumin Lvl (test code = Albumin Lvl) 3.2 3.5-5.0 [facility]2018-05-14 12:22:00 Test Item Value Reference Range Interpretation Comments Total Protein (test code = Total 6.3 6.4-8.4 Protein) [facility]2018-05-14 12:22:00 Test Item Value Reference Range Interpretation Comments CO2 (test code = CO2) 23 24-32 [facility]2018-05-14 12:22:00 Test Item Value Reference Range Interpretation Comments Calcium Lvl (test code = Calcium Lvl) 8.9 8.5-10.5 [facility]2018-05-14 12:22:00 Test Item Value Reference Range Interpretation Comments A/G Ratio (test code = A/G Ratio) 1.0 1 0.7-1.6 [facility]2018-05-14 12:22:00 Test Item Value Reference Range Interpretation Comments AGAP (test code = AGAP) 14.1 10.0-20.0 [place] [id number] 12:22:00 Test Item Value Reference Range Interpretation Comments B/C Ratio (test code = B/C Ratio) 22 1 6-25 [place] [id number] 12:22:00 Test Item Value Reference Range Interpretation Comments Bili Total (test code = Bili Total) 0.2 0.2-1.3 [facility]2018-05-14 12:22:00 Test Item Value Reference Range Interpretation Comments Sodium Lvl (test code = Sodium Lvl) 143 135-145 [facility]2018-05-14 12:22:00 Test Item Value Reference Range Interpretation Comments Chloride Lvl (test code = Chloride Lvl) 110 95-109 [facility]2018-05-14 12:22:00 Test Item Value Reference Range Interpretation Comments Potassium Lvl (test code = Potassium 4.1 3.5-5.1 Lvl) [facility]2018-05-14 12:22:00 Test Item Value Reference Range Interpretation Comments Creatinine Lvl (test code = Creatinine 0.76 0.50-1.40 Lvl) [facility]2018-05-14 12:22:00 Test Item Value Reference Range Interpretation Comments BUN (test code = BUN) 17 7-22 [facility]2018-05-14 12:22:00 Test Item Value Reference Range Interpretation Comments Glucose Lvl (test code = Glucose Lvl) 101 70-99 [facility] CenterImzlxqnRWVPQXXIFD7539-85-78 12:22:00 Test Item Value Reference Range Interpretation Comments Monocytes # (test code 0.4 See_Comment [Aut omated message] The = Monocytes #) system which generated this result tra nsmitted reference range : <=0.8. The reference r chasity was not used to int erpret this result as normal/abnormal . [facility] [id number] 12:22:00 Test Item Value Reference Range Interpretation Comments Eosinophils # (test code 0.1 See_Comment [A utomated message] The = Eosinophils #) system whic h generated this result tra nsmitted reference range : <=0.5. The reference r chasity was not used to int erpret this result as normal/abnormal . [facility] CenterJgmiviiRNUHJADSNP5398-29-18 12:22:00 Test Item Value Reference Range Interpretation Comments Segs (test code = Segs) 48.7 45.0-75.0 [facility] C[id number] 12:22:00 Test Item Value Reference Range Interpretation Comments Lymphocytes (test code = Lymphocytes) 39.8 20.0-40.0 [facility] CenterFanirisXSFOBUZUIL8635-19-66 12:22:00 Test Item Value Reference Range Interpretation Comments Monocytes (test code = Monocytes) 8.3 2.0-12.0 [facility] CenterUofxiacAPXKUQNYUK8220-64-28 12:22:00 Test Item Value Reference Range Interpretation Comments Eosinophils (test code = 2.7 See_Comment [A utomated message] The Eosinophils) system which ge nerated this result tra nsmitted reference range : <=4.0. The reference r chasity was not used to int erpret this result as normal/abnormal . [place] 358018-05-14 12:22:00 Test Item Value Reference Range Interpretation Comments Lymphocytes # (test code = Lymphocytes 2.0 1.0-5.5 #) [facility] CenterLbqjgkiIGVJMFDSMK5070-63-43 12:22:00 Test Item Value Reference Range Interpretation Comments Basophils (test code = 0.5 See_Comment [Aut omated message] The Basophils) system which ge nerated this result tra nsmitted reference range : <=1.0. The reference r chasity was not used to int erpret this result as normal/abnormal . [facility] CenterTkrzcjkYBOPXKPRMK4666-29-72 12:22:00 Test Item Value Reference Range Interpretation Comments Segs-Bands # (test code = Segs-Bands #) 2.5 1.5-8.1 [facility] CenterQzugdrdVUDDIXVEDI5124-05-06 12:22:00 Test Item Value Reference Range Interpretation Comments MCHC (test code = MCHC) 33.5 32.0-36.0 [facility] CenterMgueiifIZEMZNUICY0553-12-48 12:22:00 Test Item Value Reference Range Interpretation Comments MPV (test code = MPV) 9.2 7.4-10.4 [facility] Cent[id number] 12:22:00 Test Item Value Reference Range Interpretation Comments Platelet (test code = Platelet) 133 133-450 [facility] CenterSciowqeSVULKEJPTC9514-81-49 12:22:00 Test Item Value Reference Range Interpretation Comments RDW (test code = RDW) 13.0 11.5-14.5 [facility] CenterGzhfzciURRHYGKZVE7936-67-28 12:22:00 Test Item Value Reference Range Interpretation Comments MCH (test code = MCH) 32.8 pg 27.0-31.0 [facility] CenterRsadnwaVWGVDTPQJJ3674-45-81 12:22:00 Test Item Value Reference Range Interpretation Comments Hct (test code = Hct) 43.1 36.0-48.0 [facility] CenterUuzdwrdZHKBINDLED0668-19-68 12:22:00 Test Item Value Reference Range Interpretation Comments Hgb (test code = Hgb) 14.4 12.0-16.0 [facility] CenterFkvkrgmWDSBEDRYAV4733-74-87 12:22:00 Test Item Value Reference Range Interpretation Comments MCV (test code = MCV) 97.9 80.0-98.0 [facility] CenterThjoicaBSULXIFNGE4894-31-58 12:22:00 Test Item Value Reference Range Interpretation Comments RBC (test code = RBC) 4.40 4.20-5.40 [facility] HfxnrykFHPEJWNURQ0469-38-53 12:22:00 Test Item Value Reference Range Interpretation Comments WBC (test code = WBC) 5.1 3.7-10.4 [facility] 12:22:00 Test Item Value Reference Range Interpretation Comments CK MB Index (test 2.7 1 See_Comment [Automate d message] The code = CK MB Index) system w [facility] generated this result transmit yariel reference range : <=2.5. The reference range was not used to interpr et this result as anil l/abnormal. [facility]2018-05-14 12:22:00 Test Item Value Reference Range Interpretation Comments Troponin-I (test code no gt See_Comment [Auto mated message] The = Troponin-I) system which g enerated this result transmit yariel reference range : <=0.40. The reference r chasity was not used to interpr et this result as anil l/abnormal. [facility]2018-05-14 12:22:00 Test Item Value Reference Range Interpretation Comments Total CK (test code = Total CK) 119 12-191 [facility]2018-05-14 12:22:00 Test Item Value Reference Range Interpretation Comments CK MB (test code = CK MB) 3.2 0.5-3.6 [facility] [employer]2018-05-14 12:22:00 Test Item Value Reference Range Interpretation Comments eGFR (test code = eGFR) 87 [facility] [employer]2018-05-14 12:22:00 Test Item Value Reference Range Interpretation Comments Globulin (test code = Globulin) 3.1 2.7-4.2 [facility] [employer]2018-05-14 12:22:00 Test Item Value Reference Range Interpretation Comments Alk Phos (test code = Alk Phos) 78 39-136 [facility] [employer]2018-05-14 12:22:00 Test Item Value Reference Range Interpretation Comments AST (test code = AST) 12 See_Comment [Auto mated message] The system which ge nerated this result transmit yariel reference range : <=37. The reference range was not used to interpr et this result as anil l/abnormal. [facility]2018-05-14 12:22:00 Test Item Value Reference Range Interpretation Comments ALT (test code = ALT) 24 See_Comment [Auto mated message] The system which ge nerated this result transmit yariel reference range : <=65. The reference range was not used to interpr et this result as anil l/abnormal. [facility]2018-05-14 12:22:00 Test Item Value Reference Range Interpretation Comments Albumin Lvl (test code = Albumin Lvl) 3.2 3.5-5.0 [facility]2018-05-14 12:22:00 Test Item Value Reference Range Interpretation Comments Total Protein (test code = Total 6.3 6.4-8.4 Protein) [facility]2018-05-14 12:22:00 Test Item Value Reference Range Interpretation Comments CO2 (test code = CO2) 23 24-32 [facility]2018-05-14 12:22:00 Test Item Value Reference Range Interpretation Comments Calcium Lvl (test code = Calcium Lvl) 8.9 8.5-10.5 [facility]2018-05-14 12:22:00 Test Item Value Reference Range Interpretation Comments A/G Ratio (test code = A/G Ratio) 1.0 1 0.7-1.6 [facility]2018-05-14 12:22:00 Test Item Value Reference Range Interpretation Comments AGAP (test code = AGAP) 14.1 10.0-20.0 [facility]2018-05-14 12:22:00 Test Item Value Reference Range Interpretation Comments B/C Ratio (test code = B/C Ratio) 22 1 6-25 [facility]2018-05-14 12:22:00 Test Item Value Reference Range Interpretation Comments Bili Total (test code = Bili Total) 0.2 0.2-1.3 [facility]2018-05-14 12:22:00 Test Item Value Reference Range Interpretation Comments Sodium Lvl (test code = Sodium Lvl) 143 135-145 [facility]2018-05-14 12:22:00 Test Item Value Reference Range Interpretation Comments Chloride Lvl (test code = Chloride Lvl) 110 95-109 [facility]2018-05-14 12:22:00 Test Item Value Reference Range Interpretation Comments Potassium Lvl (test code = Potassium 4.1 3.5-5.1 Lvl) [facility]2018-05-14 12:22:00 Test Item Value Reference Range Interpretation Comments Creatinine Lvl (test code = Creatinine 0.76 0.50-1.40 Lvl) [facility]2018-05-14 12:22:00 Test Item Value Reference Range Interpretation Comments BUN (test code = BUN) 17 7-22 [place] 301028-05-14 12:22:00 Test Item Value Reference Range Interpretation Comments Glucose Lvl (test code = Glucose Lvl) 101 70-99 [facility] CenterPxeqaeaBQGQLVMXLI5786-11-88 12:22:00 Test Item Value Reference Range Interpretation Comments Monocytes # (test code 0.4 See_Comment [Aut omated message] The = Monocytes #) system which generated this result tra nsmitted reference range : <=0.8. The reference r chasity was not used to int erpret this result as normal/abnormal . [facility] CenterPtzzvgwFLEDQHMXWJ0231-29-68 12:22:00 Test Item Value Reference Range Interpretation Comments Eosinophils # (test code 0.1 See_Comment [A utomated message] The = Eosinophils #) system whic h generated this result tra nsmitted reference range : <=0.5. The reference r chasity was not used to int erpret this result as normal/abnormal . [facility] CenterPmvycssXVYLFDWDBL7374-76-62 12:22:00 Test Item Value Reference Range Interpretation Comments Segs (test code = Segs) 48.7 45.0-75.0 [facility] CenterPoaydalWFLVCDIYRZ0225-60-59 12:22:00 Test Item Value Reference Range Interpretation Comments Lymphocytes (test code = Lymphocytes) 39.8 20.0-40.0 [facility] CenterLzzagotKKMARLQMXD5593-34-85 12:22:00 Test Item Value Reference Range Interpretation Comments Monocytes (test code = Monocytes) 8.3 2.0-12.0 [facility] CenterZzizwyvXDJVMSQLJN3814-41-83 12:22:00 Test Item Value Reference Range Interpretation Comments Eosinophils (test code = 2.7 See_Comment [A utomated message] The Eosinophils) system which ge nerated this result tra nsmitted reference range : <=4.0. The reference r chasity was not used to int erpret this result as normal/abnormal . [facility] CenterIbvywkkRKPMVDEXPM1288-29-62 12:22:00 Test Item Value Reference Range Interpretation Comments Lymphocytes # (test code = Lymphocytes 2.0 1.0-5.5 #) [facility] CenterOmgdwadORZJAOQYCQ4996-00-36 12:22:00 Test Item Value Reference Range Interpretation Comments Basophils (test code = 0.5 See_Comment [Aut omated message] The Basophils) system which ge nerated this result tra nsmitted reference range : <=1.0. The reference r chasity was not used to int erpret this result as normal/abnormal . [facility] CenterErpimrlLMVHYXUPAI5972-87-74 12:22:00 Test Item Value Reference Range Interpretation Comments Segs-Bands # (test code = Segs-Bands #) 2.5 1.5-8.1 [facility] CenterRlcmzxhAOPEASQQBV1118-78-03 12:22:00 Test Item Value Reference Range Interpretation Comments MCHC (test code = MCHC) 33.5 32.0-36.0 [facility] CenterUkmbbygPELCKDSDFT3494-38-26 12:22:00 Test Item Value Reference Range Interpretation Comments MPV (test code = MPV) 9.2 7.4-10.4 [facility] CenterMmrdtlyWTFIMHDZLQ6627-18-28 12:22:00 Test Item Value Reference Range Interpretation Comments Platelet (test code = Platelet) 133 133-450 [facility] CenterDgxvwpsNMSCRADFVX4370-28-97 12:22:00 Test Item Value Reference Range Interpretation Comments RDW (test code = RDW) 13.0 11.5-14.5 [facility] CenterRorotyqTALJJULEPG0460-13-81 12:22:00 Test Item Value Reference Range Interpretation Comments MCH (test code = MCH) 32.8 pg 27.0-31.0 [facility] CenterAurprwoEDBPQRLGMS1477-97-05 12:22:00 Test Item Value Reference Range Interpretation Comments Hct (test code = Hct) 43.1 36.0-48.0 [facility] CenterDdfbjsaUIUOBXCOAZ4488-68-82 12:22:00 Test Item Value Reference Range Interpretation Comments Hgb (test code = Hgb) 14.4 12.0-16.0 [facility] CenterYhfnmgvCQAPZXVMWT0984-21-62 12:22:00 Test Item Value Reference Range Interpretation Comments MCV (test code = MCV) 97.9 80.0-98.0 [facility] JwbfufiIWNFGRRACJ1412-71-20 12:22:00 Test Item Value Reference Range Interpretation Comments RBC (test code = RBC) 4.40 4.20-5.40 [facility] HospitalFjctqfsEHNNJRICUV9570-32-06 12:22:00 Test Item Value Reference Range Interpretation Comments WBC (test code = WBC) 5.1 3.7-10.4 [facility] 12:22:00 Test Item Value Reference Range Interpretation Comments CK MB Index (test 2.7 1 See_Comment [Automate d message] The code = CK MB Index) system w [facility] generated this result transmit yariel reference range : <=2.5. The reference range was not used to interpr et this result as anil l/abnormal. [facility] 12:22:00 Test Item Value Reference Range Interpretation Comments Troponin-I (test code no gt See_Comment [Auto mated message] The = Troponin-I) system which g enerated this result transmit yariel reference range : <=0.40. The reference r chasity was not used to interpr et this result as anil l/abnormal. [facility]2018-05-14 12:22:00 Test Item Value Reference Range Interpretation Comments Total CK (test code = Total CK) 119 12-191 [facility]2018-05-14 12:22:00 Test Item Value Reference Range Interpretation Comments CK MB (test code = CK MB) 3.2 0.5-3.6 [facility] [employer]2018-05-14 12:22:00 Test Item Value Reference Range Interpretation Comments eGFR (test code = eGFR) 87 [facility] [employer]2018-05-14 12:22:00 Test Item Value Reference Range Interpretation Comments Globulin (test code = Globulin) 3.1 2.7-4.2 [facility] [id number] 12:22:00 Test Item Value Reference Range Interpretation Comments Alk Phos (test code = Alk Phos) 78 39-136 [facility] [employer]2018-05-14 12:22:00 Test Item Value Reference Range Interpretation Comments AST (test code = AST) 12 See_Comment [Auto mated message] The system which ge nerated this result transmit yariel reference range : <=37. The reference range was not used to interpr et this result as anil l/abnormal. [facility] [facility]2018-05-14 12:22:00 Test Item Value Reference Range Interpretation Comments ALT (test code = ALT) 24 See_Comment [Auto mated message] The system which ge nerated this result transmit yariel reference range : <=65. The reference range was not used to interpr et this result as anil l/abnormal. [facility]2018-05-14 12:22:00 Test Item Value Reference Range Interpretation Comments Albumin Lvl (test code = Albumin Lvl) 3.2 3.5-5.0 [facility]2018-05-14 12:22:00 Test Item Value Reference Range Interpretation Comments Total Protein (test code = Total 6.3 6.4-8.4 Protein) [facility]2018-05-14 12:22:00 Test Item Value Reference Range Interpretation Comments CO2 (test code = CO2) 23 24-32 [facility]2018-05-14 12:22:00 Test Item Value Reference Range Interpretation Comments Calcium Lvl (test code = Calcium Lvl) 8.9 8.5-10.5 [facility]2018-05-14 12:22:00 Test Item Value Reference Range Interpretation Comments A/G Ratio (test code = A/G Ratio) 1.0 1 0.7-1.6 [facility]2018-05-14 12:22:00 Test Item Value Reference Range Interpretation Comments AGAP (test code = AGAP) 14.1 10.0-20.0 [place] [id number] 12:22:00 Test Item Value Reference Range Interpretation Comments B/C Ratio (test code = B/C Ratio) 22 1 6-25 [facility]2018-05-14 12:22:00 Test Item Value Reference Range Interpretation Comments Bili Total (test code = Bili Total) 0.2 0.2-1.3 [facility]2018-05-14 12:22:00 Test Item Value Reference Range Interpretation Comments Sodium Lvl (test code = Sodium Lvl) 143 135-145 [place] [id number] 12:22:00 Test Item Value Reference Range Interpretation Comments Chloride Lvl (test code = Chloride Lvl) 110 95-109 [facility]2018-05-14 12:22:00 Test Item Value Reference Range Interpretation Comments Potassium Lvl (test code = Potassium 4.1 3.5-5.1 Lvl) [facility]2018-05-14 12:22:00 Test Item Value Reference Range Interpretation Comments Creatinine Lvl (test code = Creatinine 0.76 0.50-1.40 Lvl) [facility]2018-05-14 12:22:00 Test Item Value Reference Range Interpretation Comments BUN (test code = BUN) 17 7-22 [facility]2018-05-14 12:22:00 Test Item Value Reference Range Interpretation Comments Glucose Lvl (test code = Glucose Lvl) 101 70-99 [id number] 12:22:00 Test Item Value Reference Range Interpretation Comments Monocytes # (test code 0.4 See_Comment [Aut omated message] The = Monocytes #) system which generated this result tra nsmitted reference range : <=0.8. The reference r chasity was not used to int erpret this result as normal/abnormal . [facility] [id number] 12:22:00 Test Item Value Reference Range Interpretation Comments Eosinophils # (test code 0.1 See_Comment [A utomated message] The = Eosinophils #) system whic h generated this result tra nsmitted reference range : <=0.5. The reference r chasity was not used to int erpret this result as normal/abnormal . [facility] Cent[id number] 12:22:00 Test Item Value Reference Range Interpretation Comments Segs (test code = Segs) 48.7 45.0-75.0 [facility] CenterLsrncbiFZNXLEDUZU9440-40-68 12:22:00 Test Item Value Reference Range Interpretation Comments Lymphocytes (test code = Lymphocytes) 39.8 20.0-40.0 [facility] CenterEjhgsmkMMBYVUQURO5484-92-32 12:22:00 Test Item Value Reference Range Interpretation Comments Monocytes (test code = Monocytes) 8.3 2.0-12.0 [facility] CenterYbqbeihHGQAXGUOBO0745-80-03 12:22:00 Test Item Value Reference Range Interpretation Comments Eosinophils (test code = 2.7 See_Comment [A utomated message] The Eosinophils) system which ge nerated this result tra nsmitted reference range : <=4.0. The reference r chasity was not used to int erpret this result as normal/abnormal . [facility] CenterEexnoaoSEJNKEGJGZ9718-13-16 12:22:00 Test Item Value Reference Range Interpretation Comments Lymphocytes # (test code = Lymphocytes 2.0 1.0-5.5 #) [facility] CenterHflmaphREPRNSTTEQ8872-24-06 12:22:00 Test Item Value Reference Range Interpretation Comments Basophils (test code = 0.5 See_Comment [Aut omated message] The Basophils) system which ge nerated this result tra nsmitted reference range : <=1.0. The reference r chasity was not used to int erpret this result as normal/abnormal . [facility] CenterBssxshiAPIWYFNRHK4809-03-60 12:22:00 Test Item Value Reference Range Interpretation Comments Segs-Bands # (test code = Segs-Bands #) 2.5 1.5-8.1 [facility] [id number] 12:22:00 Test Item Value Reference Range Interpretation Comments MCHC (test code = MCHC) 33.5 32.0-36.0 [facility] CenterIwgguklFIPHWHWOIH8949-93-76 12:22:00 Test Item Value Reference Range Interpretation Comments MPV (test code = MPV) 9.2 7.4-10.4 [facility] CenterHkanlfqJZMXFCCAQB4579-13-58 12:22:00 Test Item Value Reference Range Interpretation Comments Platelet (test code = Platelet) 133 133-450 [facility] CenterRdmvkuxPKAIJWRGBM5384-62-44 12:22:00 Test Item Value Reference Range Interpretation Comments RDW (test code = RDW) 13.0 11.5-14.5 [facility] CenterTelvzmpVNUUGQRSIF5368-31-41 12:22:00 Test Item Value Reference Range Interpretation Comments MCH (test code = MCH) 32.8 pg 27.0-31.0 [facility] CenterEvfhxkoXGNGQOWCVJ3535-38-35 12:22:00 Test Item Value Reference Range Interpretation Comments Hct (test code = Hct) 43.1 36.0-48.0 [facility] Cent[id number] 12:22:00 Test Item Value Reference Range Interpretation Comments Hgb (test code = Hgb) 14.4 12.0-16.0 [facility] [id number] 12:22:00 Test Item Value Reference Range Interpretation Comments MCV (test code = MCV) 97.9 80.0-98.0 [facility] CenterAknoorcESYICZSZEM6725-13-08 12:22:00 Test Item Value Reference Range Interpretation Comments RBC (test code = RBC) 4.40 4.20-5.40 [facility] CenterG[id number] 12:22:00 Test Item Value Reference Range Interpretation Comments WBC (test code = WBC) 5.1 3.7-10.4 [facility]
[2022-11-28] MEDS ORDERED: METHYLPREDNISOLONE 125 MG INJ ONE (16:15)
[2022-11-28] MEDS ORDERED: ALBUTEROL 2.5 MG/3 ML NEB SOL ONE ×2 (16:15→19:14)
[2022-11-28] MEDS ORDERED: MAGNESIUM SULFATE 1 gm IVPB 1 GM/100 ML BAG IV ONE (16:16)
[2022-11-28] MEDS ORDERED: IPRATROPIUM BROM 0.5MG/2.5ML ONE ×2 (16:16→19:14)
[2022-11-28 16:19] LABS: Absolute Lymphocytes (CBC) 1.4 K/uL (0.7-4.9); Hematocrit 44.5 % (36.0-45.0); Lymphocytes % 31.3 % (15.3-44.8); MCV 99.9 fL (80-100); MPV 8.6 fL (7.6-11.3); RBC Red Blood Cell Count 4.45 M/uL (3.86-4.86)
[2022-11-28 16:31] LABS: Protime INR 0.91
[2022-11-28 16:34] LABS: Albumin 3.9 g/dL (3.4-5.0); Bilirubin Total 0.3 mg/dL (0.2-1.0); Potassium 3.7 mEq/L (3.5-5.1); Protein, Total 7.2 g/dL (6.4-8.2)
--- NOTE | 2022-11-28 16:43 | RAD REPORT ---
EXAM DESCRIPTION: Quique Single View11/28/2022 4:33 pm CLINICAL HISTORY: Chest pain COMPARISON: September 1999 FINDINGS: Lungs are mildly to moderately hyperaerated. The lungs appear clear of acute infiltrate. The heart is normal size IMPRESSION: No acute abnormalities displayed
--- NOTE | 2022-11-28 17:06 | EDPHYS ---
Physician Documentation [facility] Name: Rhona Ladd Age: 62 yrs Sex: Female : 1960 Arrival Date: 11/28/2022 Time: 15:40 Bed 14 Private MD: [facility] ED Physician Umer Priest HPI: 11/28 16:40 This 62 yrs old Female presents to ER via Ambulatory with complaints of Shortness Of kb Breath. 16:40 The patient has shortness of breath at rest, and the patient has a history of asthma, kb COPD. Onset: The symptoms/episode began/occurred 4 day(s) ago. Duration: The symptoms are continuous. The patient's shortness of breath is aggravated by exertion. Associated signs and symptoms: Pertinent positives: productive cough. Severity of symptoms: At their worst the symptoms were moderate in the emergency department the symptoms are unchanged. The patient has experienced similar episodes in the past. The patient has not recently seen a physician. Pt reports shortness of breath that started 4 days ago and has gotten worse. Reports no relief with nebs at home. Chills today, did not check for fever. 85% on room air in triage. Historical: - Allergies: 15:45 Bactrim; cm9 15:45 Morphine; cm9 15:45 Soma; cm9 - PMHx: 15:45 Asthma; Hypertension; cm9 - PSHx: 15:45 Appendectomy; section; Cholecystectomy; cm9 - Immunization history:: Adult Immunizations up to date, Client reports receiving the 2nd dose of the Covid vaccine. - Social history:: Smoking status: Patient reports the use of cigarette tobacco products, Patient/guardian denies using tobacco, the patient reports quitting approximately 1 years ago. ROS: 16:39 Abdomen/GI: Negative for abdominal pain, nausea, vomiting, diarrhea, and constipation. kb 16:39 Constitutional: Positive for chills. 16:39 Respiratory: Positive for cough, shortness of breath. 16:39 All other systems are negative. Exam: 16:39 Constitutional: This is a well developed, well nourished patient who is awake, alert, kb and in no acute distress. Head/Face: Normocephalic, atraumatic. ENT: Moist Mucous membranes Cardiovascular: Regular rate and rhythm with a normal S1 and S2. No gallops, murmurs, or rubs. No pulse deficits. Abdomen/GI: Soft, non-tender. No distention Skin: Warm, dry with normal turgor. Normal color. MS/ Extremity: Pulses equal, no cyanosis. Neurovascular intact. Full, normal range of motion. Neuro: Awake and alert, GCS 15, oriented to person, place, time, and situation. Moves all extremities. Normal gait. 16:39 Respiratory: mild respiratory distress is noted, Respirations: labored breathing, that is mild, Breath sounds: wheezing: expiratory that is moderate, is scattered. Vital Signs: 15:46 BP 164 / 96; Pulse 77; Resp 20; Temp 98.5(O); Pulse Ox 85% on R/A; Weight 83.91 kg; cm9 Height 5 ft. 9 in. ; Pain 0/10; 15:47 Pulse Ox 91% on R/A; cm9 16:45 BP 128 / 76; Pulse 66; Resp 18; Pulse Ox 97% on 4 lpm NC; eh3 17:45 BP 141 / 83; Pulse 68; Resp 18; Pulse Ox 98% on 4 lpm NC; eh3 18:45 BP 134 / 74; Pulse 67; Resp 20; Pulse Ox 98% on 4 lpm NC; eh3 19:45 BP 134 / 77; Pulse 71; Resp 18; Pulse Ox 97% on 4 lpm NC; eh3 15:46 Body Mass Index 27.32 (83.91 kg, 175.26 cm) cm9 15:46 Pain Scale: Adult cm9 MDM: 15:42 Patient medically screened. kb 16:39 Data reviewed: vital signs, nurses notes. kb 16:41 Differential diagnosis: asthma, Bronchitis Chronic Obstructive Pulmonary Disease kb pneumonia. Consideration of Admission/Observation Patient was admitted/placed on observation. Counseling: I had a detailed discussion with the patient and/or guardian regarding: the historical points, exam findings, and any diagnostic results supporting the discharge/admit diagnosis, lab results, radiology results, the need for further work-up and treatment in the hospital. 17:03 Management of patient was discussed with the following: Hospitalist: Alfredo GARCIA accepts kb pt for admission under Dr Burr. 11/28 15:47 Order name: Blood Culture Adult (2) 11/28 15:47 Order name: CBC with Diff; Complete Time: 16:38 kb 11/28 15:47 Order name: CMP; Complete Time: 16:38 kb 11/28 15:47 Order name: Lactate w/ 2H reflex if indic.; Complete Time: 16:38 kb 11/28 15:47 Order name: Protime (+inr); Complete Time: 16:38 kb 11/28 15:47 Order name: Ptt, Activated; Complete Time: 16:38 kb 11/28 15:47 Order name: SARS-COV-2 RT PCR; Complete Time: 17:25 kb 11/28 15:47 Order name: Flu; Complete Time: 17:25 kb 11/28 17:30 Order name: Urinalysis w/ reflexes EDMS 11/28 17:30 Order name: Basic Metabolic Panel EDMS 11/28 17:30 Order name: Basic Metabolic Panel EDMS 11/28 17:30 Order name: Basic Metabolic Panel EDMS 11/28 17:30 Order name: Basic Metabolic Panel EDMS 11/28 15:47 Order name: Chest Single View XRAY; Complete Time: 16:56 kb 11/28 15:47 Order name: EKG; Complete Time: 15:48 kb 11/28 17:30 Order name: Heart Healthy EDMS 11/28 15:47 Order name: Accucheck; Complete Time: 16:02 kb 11/28 15:47 Order name: Cardiac monitoring; Complete Time: 16:07 kb 11/28 15:47 Order name: EKG - Nurse/Tech; Complete Time: 15:53 kb 11/28 15:47 Order name: IV Saline Lock - Large Bore; Complete Time: 16:02 kb 11/28 15:47 Order name: Labs collected and sent; Complete Time: 16:02 kb 11/28 15:47 Order name: O2 Per Protocol; Complete Time: 16:07 kb 11/28 15:47 Order name: O2 Sat Monitoring; Complete Time: 16:07 kb 11/28 15:47 Order name: Vital Signs; Complete Time: 16:02 kb Administered Medications: 16:10 Drug: DuoNeb Nebulize (3:1) (2.5 mg - 0.5 mg) 3 ml Route: Nebulizer; eh3 16:40 Follow up: Response: No adverse reaction eh3 16:47 Follow up: Response: Wheezing unchanged eh3 16:20 Drug: Magnesium Sulfate IVPB 1 grams Route: IVPB; Infused Over: 1 hrs; Site: right eh3 antecubital; 17:20 Follow up: Response: No adverse reaction; IV Status: Completed infusion; IV Intake: eh3 100ml 16:20 Drug: MethylPrednisoLONE IVP 125 mg Route: IVP; Site: right antecubital; eh3 16:40 Follow up: Response: No adverse reaction eh3 16:47 Follow up: Response: No adverse reaction eh3 17:35 Drug: Albuterol Inhalation 2.5 mg Route: Inhalation; eh3 18:00 Follow up: Response: Wheezing unchanged eh3 Disposition: 16:47 Co-signature as Attending Physician, Umer GERBER was immediately available on-site ms3 in the Emergency Department for consultation in the care of the patient. Disposition Summary: 11/28/22 17:05 Hospitalization Ordered Hospitalization Status: Observation kb Provider: Yash Burr Location: Telemetry/MedSurg (observation) kb Condition: Fair kb Problem: an acute exacerbation kb Symptoms: are unchanged kb Bed/Room Type: Standard Room Assignment: 219(11/28/22 19:12) Diagnosis - COPD/ Chronic obstructive pulmonary disease with (acute) exacerbation kb - Hypoxia kb Forms: - Medication Reconciliation Form kb - SBAR form kb Signatures: Dispatcher [employer] Jannie Odonnell FNP-C FNP-Charleen Bowen, RN RN Umer Abbott DO DO ms3 Elyssa Vargas RN RN eh3 Kaylie Radford RN RN cm9 Corrections: (The following items were deleted from the chart) 19:12 17:05 kb
--- NOTE | 2022-11-28 17:06 | ER ---
Nurse's Notes [facility] Name: Rhona Ladd Age: 62 yrs Sex: Female : 1960 Arrival Date: 11/28/2022 Time: 15:40 Bed 14 Private MD: Prashant Villa Diagnosis: COPD/ Chronic obstructive pulmonary disease with (acute) exacerbation;Hypoxia Presentation: 11/28 15:46 Chief complaint: Patient states: SOB X 4 days. Coronavirus screen: At this time, the 9 client does not indicate any symptoms associated with coronavirus-19. Ebola Screen: No symptoms or risks identified at this time. Initial Sepsis Screen: Does the patient meet any 2 criteria? No. Patient's initial sepsis screen is negative. Does the patient have a suspected source of infection? No. Patient's initial sepsis screen is negative. Risk Assessment: Do you want to hurt yourself or someone else? Patient reports no desire to harm self or others. Onset of symptoms was November 28, 2022. 15:46 Method Of Arrival: Ambulatory [facility] 15:46 Acuity: CHON 3 9 Triage Assessment: 15:45 General: Appears in no apparent distress. comfortable, Behavior is calm, cooperative, cm9 appropriate for age. Pain: Denies pain. EENT: No signs and/or symptoms were reported regarding the EENT system. Neuro: Level of Consciousness is awake, alert, obeys commands, Oriented to person, place, time, situation. Cardiovascular: Capillary refill < 3 seconds Patient's skin is warm and dry. Respiratory: Reports shortness of breath cough that is Airway is patent Respiratory effort is even, unlabored, Onset: The symptoms/episode began/occurred just prior to arrival. GI: Abdomen is flat, non-distended. : No signs and/or symptoms were reported regarding the genitourinary system. Derm: No signs and/or symptoms reported regarding the dermatologic system. Musculoskeletal: No signs and/or symptoms reported regarding the musculoskeletal system. 16:00 Respiratory: the patient has moderate shortness of breath. 3 Historical: - Allergies: 15:45 Bactrim; cm9 15:45 Morphine; cm9 15:45 Soma; cm9 - PMHx: 15:45 Asthma; Hypertension; cm9 - PSHx: 15:45 Appendectomy; section; Cholecystectomy; cm9 - Immunization history:: Adult Immunizations up to date, Client reports receiving the 2nd dose of the Covid vaccine. - Social history:: Smoking status: Patient reports the use of cigarette tobacco products, Patient/guardian denies using tobacco, the patient reports quitting approximately 1 years ago. Screenin:00 [facility] ED Fall Risk Assessment (Adult) Score/Fall Risk Level 0 - 2 = Low Risk. Abuse eh3 screen: Denies threats or abuse. Denies injuries from another. Nutritional screening: No deficits noted. Tuberculosis screening: No symptoms or risk factors identified. Assessment: 16:00 General: Appears in no apparent distress. uncomfortable, Behavior is calm, cooperative, eh3 appropriate for age. Pain: Denies pain. Neuro: Level of Consciousness is awake, alert, obeys commands, Oriented to person, place, time, situation. Cardiovascular: Capillary refill < 3 seconds Patient's skin is warm and dry. Rhythm is sinus rhythm. Respiratory: Airway is patent Respiratory effort is even, labored, Respiratory pattern is regular, symmetrical, Breath sounds with wheezes bilaterally. GI: Abdomen is round non-distended. : No signs and/or symptoms were reported regarding the genitourinary system. EENT: No signs and/or symptoms were reported regarding the EENT system. Derm: Skin is pink, warm \T\ dry. Musculoskeletal: Circulation, motion, and sensation intact. 16:45 Reassessment: Patient appears in no apparent distress at this time. Patient and/or eh3 family updated on plan of care and expected duration. Pain level reassessed. Patient is alert, oriented x 3, equal unlabored respirations, skin warm/dry/pink. 17:45 Reassessment: Patient appears in no apparent distress at this time. Patient and/or eh3 family updated on plan of care and expected duration. Pain level reassessed. Patient is alert, oriented x 3, equal unlabored respirations, skin warm/dry/pink. 18:45 Reassessment: Patient appears in no apparent distress at this time. Patient and/or eh3 family updated on plan of care and expected duration. Pain level reassessed. Patient is alert, oriented x 3, equal unlabored respirations, skin warm/dry/pink. 19:45 Reassessment: Patient appears in no apparent distress at this time. Patient and/or eh3 family updated on plan of care and expected duration. Pain level reassessed. Patient is alert, oriented x 3, equal unlabored respirations, skin warm/dry/pink. Vital Signs: 15:46 BP 164 / 96; Pulse 77; Resp 20; Temp 98.5(O); Pulse Ox 85% on R/A; Weight 83.91 kg; cm9 Height 5 ft. 9 in. ; Pain 0/10; 15:47 Pulse Ox 91% on R/A; cm9 16:45 BP 128 / 76; Pulse 66; Resp 18; Pulse Ox 97% on 4 lpm NC; eh3 17:45 BP 141 / 83; Pulse 68; Resp 18; Pulse Ox 98% on 4 lpm NC; eh3 18:45 BP 134 / 74; Pulse 67; Resp 20; Pulse Ox 98% on 4 lpm NC; eh3 19:45 BP 134 / 77; Pulse 71; Resp 18; Pulse Ox 97% on 4 lpm NC; eh3 15:46 Body Mass Index 27.32 (83.91 kg, 175.26 cm) cm9 15:46 Pain Scale: Adult cm9 ED Course: 15:40 Patient arrived in ED. mr 15:40 Prashant Villa DO is Private Physician. mr 15:42 Jannie Del Rio [facility]-C [facility] kb 15:42 Umer Priest DO is Attending Physician. kb 15:45 Arm band placed on right wrist. cm9 15:47 Triage completed. cm9 16:00 Patient has correct armband on for positive identification. Bed in low position. Call [facility] light in reach. Side rails up X2. Adult w/ patient. Pulse ox on. NIBP on. Door closed. Noise minimized. Warm blanket given. 16:02 Blood Culture Adult (2) Sent. cm9 16:02 CBC with Diff Sent. cm9 16:02 CMP Sent. cm9 16:02 Lactate w/ 2H reflex if indic. Sent. cm9 16:02 Protime (+inr) Sent. cm9 16:02 Ptt, Activated Sent. cm9 16:06 Elyssa Vargas, TESSA is Primary Nurse. eh3 16:07 Inserted saline lock: 20 gauge in right antecubital area, using aseptic technique. mb9 Blood collected. 16:35 Chest Single View XRAY In Process Unspecified. EDMS 17:05 Leno, Yash, MD is Hospitalizing Provider. kb 19:45 No provider procedures requiring assistance completed. Patient admitted, IV remains in eh3 place. Administered Medications: 16:10 Drug: DuoNeb Nebulize (3:1) (2.5 mg - 0.5 mg) 3 ml Route: Nebulizer; 3 16:40 Follow up: Response: No adverse reaction eh3 16:47 Follow up: Response: Wheezing unchanged eh3 16:20 Drug: Magnesium Sulfate IVPB 1 grams Route: IVPB; Infused Over: 1 hrs; Site: right 3 antecubital; 17:20 Follow up: Response: No adverse reaction; IV Status: Completed infusion; IV Intake: eh3 100ml 16:20 Drug: MethylPrednisoLONE IVP 125 mg Route: IVP; Site: right antecubital; eh3 16:40 Follow up: Response: No adverse reaction eh3 16:47 Follow up: Response: No adverse reaction eh3 17:35 Drug: Albuterol Inhalation 2.5 mg Route: Inhalation; 3 18:00 Follow up: Response: Wheezing unchanged 3 Medication: 19:45 VIS not applicable for this client. eh3 Intake: 17:20 IV: 100ml; Total: 100ml. eh3 Outcome: 17:05 Decision to Hospitalize by Provider. kb 19:45 Admitted to Med/surg accompanied by tech, family with patient, via wheelchair, room eh3 219, with oxygen, Report called to [place] 19:45 Condition: stable 19:45 Instructed on the need for admit. 19:46 Patient left the ED. 3 Signatures: Dispatcher [employer] EDPR Jannie Del Rio, DINKEY OPERATOR SLAGZoe COYNEP-Geetha Ware Elyssa Vargas, RN RN 3 Geetha Lancaster, RN RN mb9 Kaylie Radford RN RN cm9 Corrections: (The following items were deleted from the chart) 17:36 16:45 BP 128 / 76; Pulse 66bpm; Resp 18bpm; Pulse Ox 97% RA; eh3 eh3 17:36 17:00 Reassessment: Patient appears in no apparent distress at this time. Patient 3 and/or family updated on plan of care and expected duration. Pain level reassessed. Patient is alert, oriented x 3, equal unlabored respirations, skin warm/dry/pink. eh3
[2022-11-28] MEDS ORDERED: ALPRAZOLAM 0.25 MG TABLET PO PRN (17:24)
[2022-11-28] MEDS ORDERED: ONDANSETRON 4 MG/2 ML VIAL IV PRN (17:24)
[2022-11-28] MEDS ORDERED: ACETAMINOPHEN 500 MG TAB PO PRN (17:24)
--- NOTE | 2022-11-28 17:35 | P.HP ---
Certification for Inpatient Patient admitted to: Observation With expected LOS: <2 Midnights Patient will require the following post-hospital care: None Practitioner: I am a practitioner with admitting privileges, knowledge of patient current condition, hospital course, and medical plan of care. Services: Services provided to patient in accordance with Admission requirements found in Title 42 Section 412.3 of the Code of Federal Regulations Patient History Date of Service: 11/28/22 Primary Care Provider: Allen Reason for admission: COPD exacerbation History of Present Illness: This is a 62-year-old female with past medical history significant for hypertension, asthma, and COPD. Patient presents to the emergency with complaints of shortness of breathing and wheezing for 4 days. Patient stated that her symptoms have gotten progressively worse throughout the week. She administered herself her nebulizer treatment along with her rescue inhaler with no improvement. In the ER patient's oxygen saturation was 85% on room air. She is currently satting at 94% on 2 L of oxygen. On physical exam patient presents with audible wheezing and nonproductive cough. BLE +1 pitting edema noted. She denies any chest pain, palpitation, nausea vomiting, diarrhea constipation. Patient reports being on Lasix 40 mg daily but report not taking the medication for quite some time now. She is a patient of Dr. Powell. Patient will be admitted under Dr. Burr. Home medications list reviewed: Yes - Past Medical/Surgical History -: HTN -: Asthma -: COPD Past Surgical History: Reviewed- Non-Contributory - Social History Smoking Status: Former smoker Alcohol use: No CD- Drugs: No Caffeine use: Yes Place of Residence: Home Review of Systems 10-point ROS is otherwise unremarkable General: Weakness, Malaise Respiratory: Cough, Shortness of Breath Physical Examination - Vital Signs Temperature: 98.5 F Blood Pressure: 176/90 Pulse: 90 Respirations: 22 Pulse Ox (%): 94 - Physical Exam General: Oriented x3, Mild distress HEENT: Atraumatic, Normocephalic Neck: Supple, 2+ carotid pulse no bruit Respiratory: Expiratory wheezes, Inspiratory wheezes Cardiovascular: Normal pulses, Regular rate/rhythm, Edema Capillary refill: <2 Seconds Gastrointestinal: Normal bowel sounds Musculoskeletal: No clubbing, No contractures, No erythema Integumentary: No rashes, No breakdown Neurological: Normal speech, Normal strength at 5/5 x4 extr, Normal tone Lymphatics: No axilla or inguinal lymphadenopathy - Studies Laboratory Data (last 24 hrs) 11/28/22 15:55: PT 10.0, INR 0.91, APTT 30.7 11/28/22 15:55: Sodium 144, Potassium 3.7, BUN 13, Creatinine 0.71, Glucose 108 H, Total Bilirubin 0.3, AST 18, ALT 39, Alkaline Phosphatase 117 11/28/22 15:55: WBC 4.60, Hgb 14.7, Hct 44.5, Plt Count 175 Microbiology Data (last 24 hrs): 11/28/22 16:21 Nasopharnyx Influenza Type A Antigen Screen - Final 11/28/22 16:21 Nasopharnyx Influenza Type B Antigen Screen - Final Assessment and Plan - Plan Assessment Acute on chronic COPD exacerbation Hypertension Plan Continue IV steroids with nebulizer treatment Continue IV diuresis Continue oxygen support with pulmonology tolerating Pulmonology consulted, recommendations appreciated Resume home antihypertensive medications Encourage incentive spirometry DVT PPx-Lovenox Full code Discharge Plan: Home Plan to discharge in: 48 Hours - Advance Directives Does patient have a Living Will: No Does patient have a Durable POA for Healthcare: No - Code Status/Comfort Care Code Status Assessed: Yes (Full code) Critical Care: No Time Spent Managing Pts Care (In Minutes): 50
[2022-11-28] MEDS: METHYLPREDNISOLONE 40 MG INJ IV SCH ×2 (18:00→23:37)
[2022-11-28] MEDS: IPRATROPIUM BROM 0.5MG/2.5ML NEB SCH (19:55)
[2022-11-28] MEDS: ALBUTEROL 2.5 MG/3 ML NEB SOL NEB SCH (19:55)
[2022-11-29] MEDS: ALBUTEROL 2.5 MG/3 ML NEB SOL NEB SCH ×4 (01:35→20:28)
[2022-11-29] MEDS: IPRATROPIUM BROM 0.5MG/2.5ML NEB SCH ×4 (01:35→20:28)
[2022-11-29 04:04] LABS: Phosphorus 3.2 mg/dL (2.5-4.9); Potassium 3.9 mEq/L (3.5-5.1)
[2022-11-29] MEDS: METHYLPREDNISOLONE 40 MG INJ IV SCH ×2 (05:31→16:04)
[2022-11-29] MEDS: PANTOPRAZOLE 40MG TABLET PO SCH (05:31)
[2022-11-29 06:22] LABS: Renal Epithelial <5 /HPF (None Seen); Urine Bacteria None Seen /HPF (<20); Urine Bilirubin NEGATIVE (Negative); Urine Blood Negative (Negative); Urine Clarity Clear (Clear); Urine Color Light-Yellow (Yellow); Urine Glucose NEGATIVE (Negative); Urine Mucus Slight /HPF (None Seen); Urine Protein TRACE (Negative); Urine RBC None Seen /HPF (None Seen); Urine Urobilinogen Normal (Normal); Urine pH 6.5 (5.0-7.0)
[2022-11-29] MEDS ORDERED: METHYLPREDNISOLONE 40 MG INJ IV SCH ×2 (08:00→18:00)
[2022-11-29] MEDS: ENOXAPARIN 40 MG/0.4 ML SQ SCH (08:43)
[2022-11-29] MEDS: LOSARTAN POTASSIUM 50 MG TABLET PO SCH (08:44)
[2022-11-29] MEDS ORDERED: POTASSIUM CL SA 10 MEQ TAB PO ONE (09:00)
[2022-11-29] MEDS ORDERED: FUROSEMIDE 40 MG/4 ML VIAL IV SCH (09:00)
[2022-11-29] MEDS ORDERED: AMLODIPINE 10 MG TAB PO SCH ×2 (09:00→21:00)
[2022-11-29] MEDS: DULERA 100/5 (MOMETASONE/FORMOTEROL) INHALER IH SCH ×2 (12:00→21:15)
--- NOTE | 2022-11-29 15:20 | EKG ---
Test Date: 2022-11-28 Test Time: 15:53:45 Commercial Account Executive: Barrie SI MEASUREMENT RESULTS: Intervals: Rate: 75 AR: 146 QRSD: 86 QT: 386 QTc: 431 [place]: P: 71 AR: 146 QRS: 55 T: 65 INTERPRETIVE STATEMENTS: Normal sinus rhythm Normal ECG Compared to ECG 09/16/2022 16:30:50 No significant changes Electronically Signed On 11-29-22 15:19:21 CDT by Wild Serra
--- NOTE | 2022-11-29 20:20 | P.PN ---
Subjective Date of Service: 11/29/22 Primary Care Provider: Allen Chief Complaint: COPD exacerbation No acute events overnight. She continues to have shortness of breath, wheezing, and cough. She states that this is slightly improved compared to yesterday. She mentions that she was diagnosed with asthma at an early age, and was recently told she may also have a "touch of COPD." She was prescribed Trelegy, but was unable to obtain it due to its cost. She denies any chest pain or palpitations. Review of Systems 10-point ROS is otherwise unremarkable Respiratory: Cough, Dry, Shortness of Breath, Wheezing Physical Examination - Vital Signs Temperature: 97.6 F Blood Pressure: 143/64 Pulse: 77 Respirations: 16 Pulse Ox (%): 94 - Physical Exam General: Alert, In no apparent distress, Oriented x3 HEENT: Atraumatic, Mucous membr. moist/pink, Sclerae nonicteric Neck: JVD not distended Respiratory: Diminished, Expiratory wheezes Cardiovascular: No edema, Regular rate/rhythm, Normal S1 S2, No gallops, No rubs, No murmurs Gastrointestinal: Normal bowel sounds, Soft and benign, Non-distended, No tenderness, No rebound, No guarding Musculoskeletal: No clubbing Integumentary: No rashes Neurological: Normal speech, Normal affect - Studies Microbiology Data (last 24 hrs): 11/28/22 16:21 Nasopharnyx Influenza Type A Antigen Screen - Final 11/28/22 16:21 Nasopharnyx Influenza Type B Antigen Screen - Final Assessment And Plan - Plan # Acute Hypoxic Respiratory Failure secondary to Acute Asthma Exacerbation # Gram-Positive Upper Respiratory Infection # Chronic Obstructive Pulmonary Disease # Peripheral Eosinophilia Peripheral eosinophilia supports asthma exacerbation. - Evaluation thus far: - Physical exam = wheezing throughout - Labs= peripheral eosinophilia - Chest x-ray = "no acute abnormalities displayed" - Sputum culture = gram-positive in pairs and chains - Management plan: - Pulmonology unavailable for consult - Unable to afford Trelegy - started Dulera - Started methylprednisolone + PRN bronchodilators - Started azithromycin - Consulted Respiratory Therapy - Supplemental oxygen to maintain SpO2 > 92% - PRN benzonatate, guaifenesin - Encouraged incentive spirometry - Ordered peak expiratory flow - Assess inhaler technique one improved from asthma exacerbation # Hypertension - Continue home amlodipine, losartan Yash Burr M.D.
[2022-11-29] MEDS ORDERED: AZITHROMYCIN 250 MG TAB PO ONE (20:26)
[2022-11-29] MEDS ORDERED: guaiFENesin 100 MG/5 ML UCUP PO PRN (20:28)
[2022-11-29] MEDS ORDERED: BENZONATATE 100 MG CAP PO PRN (20:28)
[2022-11-30] MEDS: METHYLPREDNISOLONE 40 MG INJ IV SCH ×3 (00:24→16:11)
[2022-11-30] MEDS: IPRATROPIUM BROM 0.5MG/2.5ML NEB SCH ×3 (02:03→14:05)
[2022-11-30] MEDS: ALBUTEROL 2.5 MG/3 ML NEB SOL NEB SCH ×3 (02:03→14:05)
[2022-11-30 04:24] LABS: Potassium 4.1 mEq/L (3.5-5.1)
[2022-11-30 05:44] VITALS: BMI 28.5
[2022-11-30] MEDS: PANTOPRAZOLE 40MG TABLET PO SCH (06:19)
[2022-11-30] MEDS: DULERA 100/5 (MOMETASONE/FORMOTEROL) INHALER IH SCH (08:25)
[2022-11-30] MEDS: LOSARTAN POTASSIUM 50 MG TABLET PO SCH (08:26)
[2022-11-30] MEDS: ENOXAPARIN 40 MG/0.4 ML SQ SCH (08:26)
[2022-11-30] MEDS ORDERED: IPRATROPIUM BROM 0.5MG/2.5ML ONE (09:22)
[2022-11-30 14:39] VITALS: O2SAT 92
[2022-11-30 16:49] VITALS: BP 139/63; TEMP 97.4
--- NOTE | 2022-11-30 17:06 | P.DS ---
Admission Date: 11/28/22 Discharge Date: 11/30/22 Primary Care Provider: Allen Reason for Admission: COPD exacerbation Hospital Course: DIAGNOSES: # Acute Hypoxic Respiratory Failure secondary to Acute Asthma Exacerbation # Gram-Positive Upper Respiratory Infection # Chronic Obstructive Pulmonary Disease # Peripheral Eosinophilia # Hypertension HOSPITAL COURSE: Ms. Rhona Ladd is a pleasant 62-year-old female with a past medical history significant for asthma, chronic obstructive pulmonary disease, and hypertension who was admitted to the [facility] on 11/28/2022 for shortness of breath. She was admitted to the Medicine service. Upon further evaluation, she was found to have peripheral eosinophilia as well as diffuse end-expiratory wheezing. Her chest x-ray revealed, "no acute abnormalities displayed." She was treated with IV steroids and bronchodilators, with significant improvement in her symptoms. This morning, she demonstrated no wheezing and stated that her shortness of breath had completely resolved. Alongside the bedside nurse, we ambulated her and measured her pulse oximetry. While ambulating, her pulse oximetry readings were dropped to 87%. With the assistance of case management, home oxygen was arranged. Throughout her hospitalization, Pulmonology was unavailable for consult. She was advised to follow-up with Pulmonology as an outpatient. Of note, her sputum culture returned positive for gram-positive cocci in pairs and chains. It is unclear if this represents a true infection as her chest x-ray was relatively unremarkable. I reviewed this with Infectious Diseases, who recommended that she receive 5 days of azithromycin. She received 2 days in the hospital, she was discharged with an additional 3 days to complete the antibiotic course. On 11/30/2022, she was seen on rounds and deemed medically stable for discharge. She was discharged with instructions to schedule follow-up appointments with her PCP (Dr. Villa) and with Pulmonology (Dr. Powell). She was provided prescriptions for albuterol, Advair, azithromycin, and prednisone. She was given the opportunity to ask questions and reported no further questions. Furthermore, all questions were answered to the best of my ability. A copy of this discharge summary will be sent to the above providers to facilitate continuity of care. Today, I personally spent 25 minutes on her case, of which greater than 50% of the time was spent in patient education, counseling, and coordination of care as described above. Vital Signs/Physical Exam: Temp Pulse Resp BP Pulse Ox 97.4 F 79 14 139/63 92 11/30/22 16:00 11/30/22 16:00 11/30/22 16:00 11/30/22 16:00 11/30/22 16:00 General: Alert, In no apparent distress, Oriented x3 HEENT: Atraumatic, Mucous membr. moist/pink, EOMI, Sclerae nonicteric Neck: JVD not distended Respiratory: Clear to auscultation bilaterally, Normal air movement Cardiovascular: No edema, Regular rate/rhythm, Normal S1 S2, No gallops, No rubs, No murmurs Gastrointestinal: Normal bowel sounds, Soft and benign, Non-distended, No tenderness, No rebound, No guarding Musculoskeletal: No clubbing Integumentary: No rashes Neurological: Normal speech, Normal affect Laboratory Data at Discharge: WBC 4.60 thou/uL (4.3-10.9) 11/28/22 15:55 Hgb 14.7 g/dL (12.0-15.0) 11/28/22 15:55 Hct 44.5 % (36.0-45.0) 11/28/22 15:55 Plt Count 175 thou/uL (152-406) 11/28/22 15:55 PT 10.0 SECONDS (9.5-12.5) 11/28/22 15:55 INR 0.91 11/28/22 15:55 APTT 30.7 SECONDS (24.3-36.9) 11/28/22 15:55 Sodium 139 mEq/L (136-145) 11/30/22 03:16 Potassium 4.1 mEq/L (3.5-5.1) 11/30/22 03:16 BUN 25 mg/dL (7-18) H 11/30/22 03:16 Creatinine 0.93 mg/dL (0.55-1.02) 11/30/22 03:16 Glucose 195 mg/dL (74-106) H 11/30/22 03:16 Phosphorus Cancelled 11/29/22 05:00 Magnesium Cancelled 11/29/22 05:00 Total Bilirubin 0.3 mg/dL (0.2-1.0) 11/28/22 15:55 AST 18 U/L (15-37) 11/28/22 15:55 ALT 39 U/L (13-56) 11/28/22 15:55 Alkaline Phosphatase 117 U/L (45-117) 11/28/22 15:55 Home Medications: Amlodipine [Norvasc*] 10 mg PO BEDTIME 11/28/22 Aspirin 81 mg PO DAILY 11/28/22 Citalopram [Celexa*] 10 mg PO BEDTIME 11/28/22 Gabapentin 300 mg PO BID 11/28/22 Losartan Potassium [Cozaar] 100 mg PO DAILY 11/28/22 Albuterol Sulfate [Albuterol Sulfate Hfa] 2 puff IH Q6H PRN #1 inhaler 11/30/22 Azithromycin Tab [Zithromax*] 250 mg PO BEDTIME 3 Days #3 tab 11/30/22 Fluticasone/Salmeterol [Advair Hfa 115-21 Mcg Inhaler] 2 puff IH BID #1 inhaler 11/30/22 predniSONE [Prednisone] 20 mg PO BID 5 Days #10 tab 11/30/22 New Medications: Fluticasone/Salmeterol [Advair Hfa 115-21 Mcg Inhaler] 2 puff IH BID #1 inhaler Albuterol Sulfate [Albuterol Sulfate Hfa] 2 puff IH Q6H PRN #1 inhaler PRN Reason: Shortness Of Breath predniSONE [Prednisone] 20 mg PO BID 5 Days #10 tab Azithromycin Tab [Zithromax*] 250 mg PO BEDTIME 3 Days #3 tab Physician Discharge Instructions: 1. Please call and schedule a follow-up appointment your PCP (Dr. Villa) in 3-5 days 2. Please call and schedule a follow-up appointment with your Manager Sports (Dr. Powell) in 5-7 days Diet: AHA Activity: Ad fany Followup: Prashant Villa DO [Primary Care Provider] - Tim Powell MD [ACTIVE - CAN ADMIT] -
[2022-11-30] MEDS ORDERED: AZITHROMYCIN 250 MG TAB PO SCH (21:00)
== END 2022-11-30 18:20 | disposition home or self-care (01) ==
LOC: ER 15:40 → ERHOLD 17:23 → 2ND 19:40
PROVIDERS: ADMIT Internal Medicine; ATTEND Internal Medicine
DX: J45.901 Unspecified asthma with (acute) exacerbation (principal); J96.01 Acute respiratory failure with hypoxia; J06.9 Acute upper respiratory infection, unspecified; J44.9 Chronic obstructive pulmonary disease, unspecified; I10 Essential (primary) hypertension; J45.909 Unspecified asthma, uncomplicated; R05.9 Cough, unspecified; R06.2 Wheezing; D72.19 Other eosinophilia; Z87.891 Personal history of nicotine dependence; Z88.6 Allergy status to analgesic agent; Z88.1 Allergy status to other antibiotic agents; Z20.822 Contact with and (suspected) exposure to COVID-19
CPT/HCPCS: 96365; 93005; 87040 ×2; 87070; 85025; 81001; 80048 ×2; 36415 ×2; 83735; 87205; 84100; 85610; 83605; 85730; 80053; 87804 ×2; 71045; 94010; 94640 ×9; 96375; 99285; U0003; J3475; J3535; J1940; J7613 ×10; J7644 ×10; J1650 ×2; J2930; J2920 ×6; G0378 ×5

== ENCOUNTER 2022-12-08 11:31 | Inpatient (IN) | payer BC ==
--- OUTSIDE RECORDS SUMMARY | 2022-12-08 11:52 | XMS REPORT | Continuity of Care Document ---
:1960 Author Organization [facility] t Address [address] [facility] [address] [place] [address] Care Team Providers Name Role Phone Jun Villa Attending Clinician Unavailable JUN VILLA Admitting Clinician Unavailable Payers Payer Name Policy Type Policy Number Effective Date Expiration Date S alisha Blue [employer] Blue [id number] [facility] 00:00:00 [place] [address] [id number] [facility] Blue Cross Blue C1 [id number] 2019 [facility] 00:00:00 [facility] Problems Condition Condition Condition Status Onset Resolution Last Treating Co mments Source Name Details Category Date Date Treatment Clinician Date ACS ACS Diagnosis Active 2018-04-16 Mem oria Active 04-15 17:32:00 l 04/15/2018 00:00: Gallo pat[place] [id number] [place] HIGH BLOOD HIGH Diagnosis Active 2018-04-15 Memoria PRESSURE BLOOD 9-13 11:24:00 l PRESSURE 00:00: [place] Active 00 04/15/2018 [facility] CHEST PAIN CHEST Diagnosis Active 2017-12-18 Memoria PAIN 12-14 15:17:00 l Active 00:00: Johnson 12/14/2017 00 [facility] CARDAIC CARDAIC Diagnosis Active 2017-12-14 Memoria Active 12-14 09:29:00 l 12/14/2017 00:00: Gallo n [address] CHRISTY CHRISTY Diagnosis Active 2017-12-14 Memoria BILLING BILLING 12-14 16:36:00 l Active 00:00: [place] 12/14/2017 00 [facility] [id number] Body mass Problem Com mon index [facility]BMI[facility] - [facility] 30.0-30.9, [facility] [id number] Other Problem Common obesity Spirit due to - CHI excess [facility] [id number] Tobacco Problem Commo n use Spirit disorder [facility] [id number] Moderate Problem Comm on persistent Spirit asthma - [facility] with [facility] [id number] Mixed Problem Common hyperlipid [facility] emia [facility] [id number] Tension Problem Commo n headache [facility] [id number] Essential Problem Comm on hypertensi Spirit on [facility] [id number] Vitamin D Problem Comm on deficiency Spirit disease [facility] [id number] Difficulty Problem Co mmon sleeping Spirit [facility] [id number] Contractur Problem Co mmon e of hand [facility] [id number] Other Problem Common chronic Spirit pain [facility] [id number] Incontinen Problem Com mon ce of Spirit feces, - CHI unspecifie [facility] incontinen Medica l ce type Center [id number] Primary Problem Comm on osteoarthr Spirit itis of - CHI left knee [facility] [id number] Family Problem Common history of Spirit heart - CHI disease [facility] [id number] Anxiety Problem Commo n about Spirit health - [facility] [id number] History of Problem Co mmon TB Spirit (tuberculo - CHI sis) [facility] [id number] Primary Problem Comm on osteoarthr Spirit itis of - CHI right knee [facility] 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 [facility] [id number] Trochanter Problem C ommon ic Spirit bursitis, - CHI left hip [facility] [id number] Chronic Problem Common obstructiv Spirit e - CHI pulmonary [facility] disease, [facility] unspecifie Medica l d COPD Center type Epigastric Epigastri Problem 2018-11-03 Memoria pain c pain 13:22:34 l 11/03/2018 Gallo patel [facility] Essential Problem 2018-11-03 Me moria (primary) Essential 13:22:34 l hypertensi (primary) Her vega on hypertensi on 11/03/2018 [facility] Hyperosmol Hyperosmo Problem 2018-11-03 Memoria ality and lality and 13:22:34 l hypernatre hypernatre He rmann susi susi 11/03/2018 [facility] Other Other Problem 2018-11-03 Memor ia chest pain chest pain 13:22:34 l 11/03/2018 Gallo patel [facility] Headache Headache Problem 2018-11-03 Memoria 11/03/2018 13:22:34 l [facility] Nausea Nausea Problem 2018-11-03 Abdiel princess 11/03/2018 13:22:34 l [facility] Pain in Pain in Problem 2018-11-03 Me moria left arm left arm 13:22:34 l 11/03/2018 Gallo patel [facility] Diverticul Diverticu Problem 2018-11-03 Memoria osis of losis of 13:22:34 l small small [place] intestine intestine without without perforatio perforatio n or n or abscess abscess without without bleeding bleeding 11/03/2018 [facility] Nicotine Nicotine Problem 2018-11-03 Memoria dependence dependence 13:22:34 l , , [place] cigarettes cigarettes , , uncomplica uncomplica yariel yariel 11/03/2018 [facility] Family Family Problem 2018-11-03 Abdiel princess history of history of 13:22:34 l ischemic ischemic Gallo patel heart heart disease disease and other and other diseases diseases of the of the 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 system y system 11/03/2018 [facility] Hypertensi Hypertens Problem Resolve 2021-07-04 Memoria ve osvaldo d 22:47:27 l disorder, disorder, Herm tiffany systemic systemic arterial arterial (disorder) (disorder) Resolved Problem 07/04/2021 [facility] Smoker Smoker Problem Resolve 2021-07-04 Mem oria (finding) (finding) d 22:47:27 l Resolved Johnson Problem 07/04/2021 [facility] Cervical Cervical Problem Active 2021-07-04 Memoria radiculopa radiculopa 22:47:27 l thy thy Johnson (disorder) (disorder) Active Problem 07/04/2021 [facility] Paresthesi Paresthes Problem Active 2021-07-04 Memoria a ia 22:47:27 l (finding) (finding) Herm tiffany Active Problem 07/04/2021 [facility] Spasm Spasm Problem Active 2021-07-04 Memor ia (finding) (finding) 22:47:27 l Active Johnson Problem 07/04/2021 [facility] 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 Herm tiffany (disorder) (disorder) Active Problem 07/04/2021 [facility] Restless Restless Problem Active 2021-07-04 Memoria legs legs 22:47:27 l (disorder) (disorder) He rmann Active Problem 07/04/2021 [facility] CHEST CHEST Diagnosis Active 2017-12-18 Mem oria PAIN, PAIN, 15:17:00 l UNSPECIFIE UNSPECIFIE He rmann D D Active [facility] ACUTE ACUTE Diagnosis Active 2018-04-16 Mem oria ISCHEMIC ISCHEMIC 17:32:00 l HEART HEART Johnson DISEASE, DISEASE, UNSPECIFIE UNSPECIFIE Active [facility] History of Past Illness Condition Condition Condition Status Onset Resolution Last Treating Co mments Source Name Details Category Date Date Treatment Clinician Date Jaw pain Jaw pain Problem 2017-2018-11-03 2018-11-03 Memoria 04/21/201804-21 13:22:34 13:22:34 l 11/03/2018 04:15: Gallo patel [address] [place] Allergies, Adverse Reactions, Alerts Allergy Allergy Status Severity Reaction(s) Onset Inactive Treating Comm ents Source Name Type Date Date Clinician Bactrim Bactrim Active Memoria l [place] morphine morphine Active Memori a l [place] Soma Soma Active Memoria l [place] Codeine Codeine Active Unknown Common Spirit [facility] carisopr carisopr Active Itch Common odol odol Spirit [facility] morphine morphine Active Itch Common [facility] sulfamet sulfamet Active Itch Common hoxazole [facility] - [facility] trimetho trimetho [facility] Social History Social Habit Start Date Stop Date Quantity Comments Source History of Current Smoker Common Spi rit - Tobacco Use [facility] Sex Assigned At Common Sp choco - [facility] Social History 2013-08-19 2013-08-19 Cesar kellertiffany 11:21:59 11:21:59 Smoking Status Start Date Stop Date Source Current Smoker 2022-09-09 00:00:00 Common Spiri t - [facility] Former Smoker 2022-01-02 00:00:00 2022-01-02 00:00:00 Common S pirit [facility] Medications Ordered Filled Start Stop Current Ordering Indication Dosage Frequency Signature Comments Components Source Medication Medication Date Date Medication? Clinician (SIG) Name Name Bupivicaine Bupivicaine No 2.5mg Common [place] -17 Spirit 00:00: - [facility] Dagoberto Pylealog No 40mg Common (Triamcinol (Triamcinol 1-17 S pirit one) one) 00:00: - [facility] Bupivicaine Bupivicaine 0 No 2.5mg Common [place] -17 Spirit 00:00: - [facility] Kenalog Kenalog 0 No 40mg Common (Triamcinol (Triamcinol 1-17 S pirit one) one) 00:00: - [facility] Bupivicaine Bupivicaine 0 No 2.5mg Common [place] 1-17 Spirit 00:00: - [facility] Kenalog Kenalog No 40mg Common (Triamcinol (Triamcinol 1-17 S pirit one) one) 00:00: - CHI 00 [facility] Dagoberto Pylealog 2021- No 40mg Common (Triamcinol (Triamcinol 2-08 S pirit one) one) 00:00: - CHI 00 [facility] Lidocaine Lidocaine 2021- No 10mg Com mon 09-10 Spirit 00:00: - CHI 00 [facility] Dagoberto Pylealog 2021- No 40mg Common (Triamcinol (Triamcinol 2-08 S pirit one) one) 00:00: - CHI 00 [facility] Lidocaine Lidocaine 2021- No 10mg Com 09-10 Spirit 00:00: - CHI 00 [facility] Dagoberot Arenas 2021- No 40mg Common (Triamcinol (Triamcinol 2-08 S pirit one) one) 00:00: - CHI 00 [facility] Lidocaine Lidocaine 2021- No 10mg Com 09-10 Spirit 00:00: - CHI 00 [facility] Dagoberto [place] 2021- No 40mg Common (Triamcinol (Triamcinol 2-08 S pirit one) one) 00:00: - CHI 00 [facility] Lidocaine Lidocaine 2021- No 10mg Com 09-10 Spirit 00:00: - CHI 00 [facility] Dagoberto [place] 2021- No 40mg Common (Triamcinol (Triamcinol 2-08 S pirit one) one) 00:00: - CHI 00 [facility] Lidocaine Lidocaine 2021- No 10mg Com 09-10 Spirit 00:00: - CHI 00 [facility] Dagoberto Pylealog 2021- No 40mg Common (Triamcinol (Triamcinol 2-08 S pirit one) one) 00:00: - CHI 00 [facility] Lidocaine Lidocaine 2021- No 10mg Com 09-10 Spirit 00:00: - CHI 00 [facility] Fluticasone Fluticasone 2021- 2023- No 2{puffs BID Fluticason Propionate Propionate 09-09 } e HFA 220 HFA 220 00:00: 00:00 Propionate MCG/ACT MCG/ACT 00 :00 HFA 220 MCG/ACT Fluticasone Fluticasone 2021-08- No 2{puffs BID Fluticason Propionate Propionate 09-09 } e HFA 220 HFA 220 00:00: 00:00 Propionate MCG/ACT MCG/ACT 00 :00 HFA 220 MCG/ACT Fluticasone Fluticasone 2021-083- No 2{puffs BID Fluticason Propionate Propionate 09-09 [...] pirit one) one) 00:00: - CHI 00 [facility] Bupivicaine Bupivicaine 2021-08 No 2.5mg Common [place] 0-25 Spirit 00:00: - CHI [facility] Kenalog Kenalog 2021-08 No 40mg Common (Triamcinol (Triamcinol 0-25 S pirit one) one) 00:00: - CHI 00 [facility] Bupivicaine Bupivicaine 2021-08 No 2.5mg Common [place] 0-25 Spirit 00:00: - CHI [facility] Kenalog Kenalog 2021-08 No 40mg Common (Triamcinol (Triamcinol 0-25 S pirit one) one) 00:00: - CHI 00 [facility] Bupivicaine Bupivicaine 2021-08 No 2.5mg Common [place] 0-25 Spirit 00:00: - CHI 00 [facility] Kenalog Kenalog 2021-08 No 40mg Common (Triamcinol (Triamcinol 0-25 S pirit one) one) 00:00: - CHI 00 [facility] Bupivicaine Bupivicaine 2021-08 No 2.5mg Common [place] 0-25 Spirit 00:00: - CHI 00 [facility] Kenalog Kenalog 2021-08 No 40mg Common (Triamcinol (Triamcinol 0-25 S pirit one) one) 00:00: - CHI 00 [facility] Bupivicaine Bupivicaine 2021-08 No 2.5mg Common [place] 0-25 Spirit 00:00: - CHI 00 [facility] Kenalog Kenalog 2021-08 No 40mg Common (Triamcinol (Triamcinol 0-25 S pirit one) one) 00:00: - CHI 00 [facility] Bupivicaine Bupivicaine 2021-08 No 2.5mg Common [place] 0-25 Spirit 00:00: - CHI 00 [facility] Kenalog Kenalog 2021-08 No 40mg Common (Triamcinol (Triamcinol 0-25 S pirit one) one) 00:00: - CHI 00 [facility] Bupivicaine Bupivicaine 2021-08 No 2.5mg Common [place] 0-25 Spirit 00:00: - CHI 00 [facility] Kenalog Kenalog 2021-08 No 40mg Common (Triamcinol (Triamcinol 0-25 S pirit one) one) 00:00: - CHI 00 [facility] Bupivicaine Bupivicaine 2021-08 No 2.5mg Common [place] 0-25 Spirit 00:00: - CHI 00 [facility] Kenalog Kenalog 2021-08 No 40mg Common (Triamcinol (Triamcinol 0-25 S pirit one) one) 00:00: - CHI 00 [facility] Bupivicaine Bupivicaine 2021-08 No 2.5mg Common [place] 0-25 Spirit 00:00: - CHI 00 [facility] Dagoberto Pylealog 2021-08 No 40mg Common (Triamcinol (Triamcinol 0-25 S pirit one) one) 00:00: - CHI 00 [facility] Bupivicaine Bupivicaine 2021-08 No 2.5mg Common [place] 0-25 Spirit 00:00: - CHI 00 [facility] Dagoberto Pylealog 2021-08 No 40mg Common (Triamcinol (Triamcinol 0-25 S pirit one) one) 00:00: - CHI 00 [facility] Bupivicaine Bupivicaine 2021-08 No 2.5mg Common [place] 0-25 Spirit 00:00: - CHI 00 [facility] Dagoberto Arenas 2021-08 No 40mg Common (Triamcinol (Triamcinol 0-25 S pirit one) one) 00:00: - CHI 00 [facility] Bupivicaine Bupivicaine 2021-08 No 2.5mg Common [place] 0-25 Spirit 00:00: - CHI 00 [facility] Imitrex 25 Imitrex 25 0 No BID Imitrex 25 MG MG 8-15 MG 00:00: 00 Imitrex 25 Imitrex 25 2021-0 No BID Imitrex 25 MG MG 8-15 MG 00:00: 00 Imitrex 25 Imitrex 25 2021-0 No BID Imitrex 25 MG MG 8-15 MG 00:00: 00 Trelegy Trelegy 0 2021- No 1{puff} QD Trelegy Ellipta Ellipta - 10- Ellipta 200-62.5-25 200-62.5-25 00:00: 00:00 200-62.5-2 MCG/INH MCG/INH 00 :00 5 MCG/INH Trelegy Trelegy 2021-0 2021- No 1{puff} QD Trelegy Ellipta Ellipta - 10-26 Ellipta 200-62.5-25 200-62.5-25 00:00: 00:00 200-62.5-2 [...] 2- No 1{puff} QD Trelegy Ellipta Ellipta - 10-26 Ellipta 200-62.5-25 200-62.5-25 00:00: 00:00 200-62.5-2 MCG/INH MCG/INH 00 :00 5 MCG/INH Trelegy Trelegy 2021-0 2- No 1{puff} QD Trelegy Ellipta Ellipta 02-27 10- Ellipta 200-62.5-25 200-62.5-25 00:00: 00:00 200-62.5-2 MCG/INH [...] No 1{puff} QD Trelegy Ellipta Ellipta -30 05-26 Ellipta 200-62.5-25 200-62.5-25 00:00: 00:00 200-62.5-2 MCG/INH [...] 2- No 1{puff} QD Trelegy Ellipta Ellipta 02-27-26 Ellipta 200-62.5-25 200-62.5-25 00:00: 00:00 200-62.5-2 MCG/INH MCG/INH 00 :00 5 MCG/INH Trelegy Trelegy 2021-0 2- No 1{puff} QD Trelegy Ellipta Ellipta - 10-26 Ellipta 200-62.5-25 200-62.5-25 00:00: 00:00 200-62.5-2 MCG/INH MCG/INH 00 :00 5 MCG/INH Trelegy Trelegy 2021-0 2- No 1{puff} QD Trelegy Ellipta Ellipta -30 05-26 Ellipta 200-62.5-25 200-62.5-25 00:00: 00:00 200-62.5-2 MCG/INH MCG/INH 00 :00 5 MCG/INH Trelegy Trelegy 2021-0 2- No 1{puff} QD Trelegy Ellipta Ellipta 7-28 10- Ellipta 200-62.5-25 200-62.5-25 00:00: 00:00 200-62.5-2 MCG/INH MCG/INH 00 :00 5 MCG/INH Hyalgan 20 Hyalgan 20 2021-0 No 20mg C ommon mg mg 12-31 Spirit 00:00: - CHI 00 [facility] Hyalgan 20 Hyalgan 20 2021-0 No 20mg C ommon mg mg 12-31 Spirit 00:00: - CHI 00 [facility] Hyalgan 20 Hyalgan 20 2021-0 No 20mg C ommon mg mg 12-31 Spirit 00:00: - CHI 00 [facility] Hyalgan 20 Hyalgan 20 2021-0 No 20mg C ommon mg mg 12-31 Spirit 00:00: - CHI 00 [facility] Hyalgan 20 Hyalgan 20 2021-0 No 20mg C ommon mg mg 12-31 Spirit 00:00: - CHI 00 [facility] Hyalgan 20 Hyalgan 20 2021-0 No 20mg C ommon mg mg 12-31 Spirit 00:00: - CHI 00 [facility] Hyalgan 20 Hyalgan 20 2021-0 No 20mg C ommon mg mg 12-31 Spirit 00:00: - CHI 00 [facility] Hyalgan 20 Hyalgan 20 2021-0 No 20mg C ommon mg mg 12-31 Spirit 00:00: - CHI 00 [facility] Hyalgan 20 Hyalgan 20 2021-0 No 20mg C ommon mg mg 12-31 Spirit 00:00: - CHI 00 [facility] Hyalgan 20 Hyalgan 20 2021-0 No 20mg C ommon mg mg 12-31 Spirit 00:00: - CHI 00 [facility] Hyalgan 20 Hyalgan 20 2021-0 No 20mg C ommon mg mg 12-31 Spirit 00:00: - CHI 00 [facility] Hyalgan 20 Hyalgan 20 2021-0 No 20mg C ommon mg mg 12-31 Spirit 00:00: - CHI 00 [facility] Hyalgan 20 Hyalgan 20 2021-0 No 20mg C ommon mg mg 12-31 Spirit 00:00: - CHI 00 [facility] Hyalgan 20 Hyalgan 20 2021-0 No 20mg C ommon mg mg 12-31 Spirit 00:00: - CHI 00 [facility] Hyalgan 20 Hyalgan 20 2021-0 No 20mg C ommon mg mg 12-31 Spirit 00:00: - CHI [facility] Hyalgan 20 Hyalgan 20 2021-0 No 20mg C ommon mg mg 12-31 Spirit 00:00: - CHI 00 [facility] Hyalgan 20 Hyalgan 20 2021-0 No 20mg C ommon mg mg 12-31 Spirit 00:00: - CHI [facility] Hyalgan 20 Hyalgan 20 2021-0 No 20mg C ommon mg mg 12-31 Spirit 00:00: - CHI [facility] Hyalgan 20 Hyalgan 20 2021-0 No 20mg C ommon mg mg 12-31 Spirit 00:00: - CHI [facility] Hyalgan 20 Hyalgan 20 2021-0 No 20mg C ommon mg mg 12-31 Spirit 00:00: - CHI [facility] Hyalgan 20 Hyalgan 20 2021-0 No 20mg C ommon mg mg 12-31 Spirit 00:00: - CHI [facility] Hyalgan 20 Hyalgan 20 2021-0 No 20mg C ommon mg mg 12-31 Spirit 00:00: - CHI [facility] Hyalgan 20 Hyalgan 20 2021-0 No 20mg C ommon mg mg 12-31 Spirit 00:00: - CHI [facility] Hyalgan 20 Hyalgan 20 2021-0 No 20mg C ommon mg mg 12-31 Spirit 00:00: - CHI 00 [facility] Hyalgan 20 Hyalgan 20 2021-0 No 20mg C ommon mg mg 12-31 Spirit 00:00: - CHI [facility] Hyalgan 20 Hyalgan 20 2021-0 No 20mg C ommon mg mg 12-31 Spirit 00:00: - CHI [facility] Hyalgan 20 Hyalgan 20 2021-0 No 20mg C ommon mg mg 12-31 Spirit 00:00: - CHI 00 [facility] Hyalgan 20 Hyalgan 20 2021-0 No 20mg C ommon mg mg 12-31 Spirit 00:00: - CHI 00 [facility] Hyalgan 20 Hyalgan 20 2021-0 No 20mg C ommon mg mg 12-31 Spirit 00:00: - CHI 00 [facility] Hyalgan 20 Hyalgan 20 2021-0 No 20mg C ommon mg mg 12-31 Spirit 00:00: - CHI 00 [facility] Hyalgan 20 Hyalgan 20 2021-0 No 20mg C ommon mg mg 12-31 Spirit 00:00: - CHI 00 [facility] Hyalgan 20 Hyalgan 20 2021-0 No 20mg C ommon mg mg 12-31 Spirit 00:00: - CHI 00 [facility] Hyalgan 20 Hyalgan 20 2021-0 No 20mg C ommon mg mg 12-31 Spirit 00:00: - CHI [facility] Hyalgan 20 Hyalgan 20 2021-0 No 20mg C ommon mg mg 12-31 Spirit 00:00: - CHI [facility] Hyalgan 20 Hyalgan 20 2021-0 No 20mg C ommon mg mg 12-31 Spirit 00:00: - CHI [facility] Hyalgan 20 Hyalgan 20 2021-0 No 20mg C ommon mg mg 12-31 Spirit 00:00: - CHI [facility] Hyalgan 20 Hyalgan 20 2021-0 No 20mg C ommon mg mg 12-31 Spirit 00:00: - CHI [facility] Hyalgan 20 Hyalgan 20 2021-0 No 20mg C ommon mg mg 12-31 Spirit 00:00: - CHI 00 [facility] Hyalgan 20 Hyalgan 20 2021-0 No 20mg C ommon mg mg 12-31 Spirit 00:00: - CHI [facility] Hyalgan 20 Hyalgan 20 2021-0 No 20mg C ommon mg mg 12-31 Spirit 00:00: - CHI [facility] Hyalgan 20 Hyalgan 20 2021-0 No 20mg C ommon mg mg 12-31 Spirit 00:00: - CHI [facility] Hyalgan 20 Hyalgan 20 2021-0 No 20mg C ommon mg mg 12-31 Spirit 00:00: - CHI [facility] Hyalgan 20 Hyalgan 20 2021-0 No 20mg C ommon mg mg 12-31 Spirit 00:00: - CHI [facility] Hyalgan 20 Hyalgan 20 2021-0 No 20mg C ommon mg mg 12-31 Spirit 00:00: - CHI [facility] Hyalgan 20 Hyalgan 20 2021-0 No 20mg C ommon mg mg 12-31 Spirit 00:00: - CHI [facility] Hyalgan 20 Hyalgan 20 2021-0 No 20mg C ommon mg mg 12-31 Spirit 00:00: - CHI [facility] Hyalgan 20 Hyalgan 20 2021-0 No 20mg C ommon mg mg 12-31 Spirit 00:00: - CHI [facility] Hyalgan 20 Hyalgan 20 2021-0 No 20mg C ommon mg mg 12-31 Spirit 00:00: - CHI [facility] Hyalgan 20 Hyalgan 20 2021-0 No 20mg C ommon mg mg 12-31 Spirit 00:00: - CHI [facility] Hyalgan 20 Hyalgan 20 2021-0 No 20mg C ommon mg mg 12-31 Spirit 00:00: - CHI [facility] Hyalgan 20 Hyalgan 20 2021-0 No 20mg C ommon mg mg 12-31 Spirit 00:00: - CHI [facility] Hyalgan 20 Hyalgan 20 2021-0 No 20mg C ommon mg mg 12-31 Spirit 00:00: - CHI [facility] Hyalgan 20 Hyalgan 20 2021-0 No 20mg C ommon mg mg 12-31 Spirit 00:00: - CHI [facility] Hyalgan 20 Hyalgan 20 2021-0 No 20mg C ommon mg mg 12-31 Spirit 00:00: - CHI [facility] Hyalgan 20 Hyalgan 20 2021-0 No 20mg C ommon mg mg 12-31 Spirit 00:00: - CHI [facility] Hyalgan 20 Hyalgan 20 2021-0 No 20mg C ommon mg mg 12-31 Spirit 00:00: - CHI [facility] Hyalgan 20 Hyalgan 20 2021-0 No 20mg C ommon mg mg 12-31 Spirit 00:00: - CHI [facility] Hyalgan 20 Hyalgan 20 2021-0 No 20mg C ommon mg mg 12-31 Spirit 00:00: - CHI [facility] Hyalgan 20 Hyalgan 20 2021-0 No 20mg C ommon mg mg 12-17 Spirit 00:00: - CHI [facility] Hyalgan 20 Hyalgan 20 2021-0 No 20mg C ommon mg mg 12-17 Spirit 00:00: - CHI [facility] Hyalgan 20 Hyalgan 20 2021-0 No 20mg C ommon mg mg 12-17 Spirit 00:00: - CHI [facility] Hyalgan 20 Hyalgan 20 2021-0 No 20mg C ommon mg mg 12-17 Spirit 00:00: - CHI [facility] Hyalgan 20 Hyalgan 20 2021-0 No 20mg C ommon mg mg 12-17 Spirit 00:00: - CHI [facility] Hyalgan 20 Hyalgan 20 2021-0 No 20mg C ommon mg mg 12-17 Spirit 00:00: - CHI [facility] Hyalgan 20 Hyalgan 20 2021-0 No 20mg C ommon mg mg 12-17 Spirit 00:00: - CHI [facility] Hyalgan 20 Hyalgan 20 2021-0 No 20mg C ommon mg mg 12-17 Spirit 00:00: - CHI [facility] Hyalgan 20 Hyalgan 20 2021-0 No 20mg C ommon mg mg 12-17 Spirit 00:00: - CHI [facility] Hyalgan 20 Hyalgan 20 2021-0 No 20mg C ommon mg mg 12-17 Spirit 00:00: - CHI [facility] Hyalgan 20 Hyalgan 20 2021-0 No 20mg C ommon mg mg 12-17 Spirit 00:00: - CHI [facility] Hyalgan 20 Hyalgan 20 2021-0 No 20mg C ommon mg mg 12-17 Spirit 00:00: - CHI [facility] Hyalgan 20 Hyalgan 20 2021-0 No 20mg C ommon mg mg 12-17 Spirit 00:00: - CHI [facility] Hyalgan 20 Hyalgan 20 2021-0 No 20mg C ommon mg mg 12-17 Spirit 00:00: - CHI [facility] Hyalgan 20 Hyalgan 20 2021-0 No 20mg C ommon mg mg 12-17 [facility] 00:00: - [facility] Hyalgan 20 Hyalgan 20 2021-0 No 20mg C ommon mg mg 12-17 [facility] 00:00: - [facility] Hyalgan 20 Hyalgan 20 2021-0 No 20mg C ommon mg mg 12-17 [facility] 00:00: - [facility] Hyalgan 20 Hyalgan 20 2021-0 No 20mg C ommon mg mg 12-17 [facility] 00:00: - [facility] Hyalgan 20 Hyalgan 20 2021-0 No 20mg C ommon mg mg 12-17 [facility] 00:00: - [facility] Hyalgan 20 Hyalgan 20 2021-0 No 20mg C ommon mg mg 12-17 [facility] 00:00: - [facility] Hyalgan 20 Hyalgan 20 2021-0 No 20mg C ommon mg mg 12-17 [facility] 00:00: - [facility] Hyalgan 20 Hyalgan 20 2021-0 No 20mg C ommon mg mg 12-17 [facility] 00:00: - [facility] Hyalgan 20 Hyalgan 20 2021-0 No 20mg C ommon mg mg 12-17 [facility] 00:00: - [facility] Hyalgan 20 Hyalgan 20 2021-0 No 20mg C ommon mg mg 12-17 [facility] 00:00: - [facility] Hyalgan 20 Hyalgan 20 2021-0 No 20mg C ommon mg mg 12-17 [facility] 00:00: - [facility] Hyalgan 20 Hyalgan 20 2021-0 No 20mg C ommon mg mg 12-17 [facility] 00:00: - [facility] Hyalgan 20 Hyalgan 20 2021-0 No 20mg C ommon mg mg 12-17 [facility] 00:00: - [facility] Hyalgan 20 Hyalgan 20 2021-0 No 20mg C ommon mg mg 12-17 [facility] 00:00: - [facility] Hyalgan 20 Hyalgan 20 2021-0 No 20mg C ommon mg mg 12-17 [facility] 00:00: - [facility] Hyalgan 20 Hyalgan 20 2021-0 No 20mg C ommon mg mg 12-17 [facility] 00:00: - [facility] Hyalgan 20 Hyalgan 20 2021-0 No 20mg C ommon mg mg 12-17 [facility] 00:00: - [facility] Hyalgan 20 Hyalgan 20 2021-0 No 20mg C ommon mg mg 12-17 [facility] 00:00: - [facility] Hyalgan 20 Hyalgan 20 2021-0 No 20mg C ommon mg mg 12-17 [facility] 00:00: - [facility] Hyalgan 20 Hyalgan 20 2021-0 No 20mg C ommon mg mg 12-17 [facility] 00:00: - [facility] Hyalgan 20 Hyalgan 20 2021-0 No 20mg C ommon mg mg 12-17 [facility] 00:00: - [facility] Hyalgan 20 Hyalgan 20 2021-0 No 20mg C ommon mg mg 12-17 [facility] 00:00: - [facility] Hyalgan 20 Hyalgan 20 2021-0 No 20mg C ommon mg mg 12-17 [facility] 00:00: - [facility] Hyalgan 20 Hyalgan 20 2021-0 No 20mg C ommon mg mg 12-17 [facility] 00:00: - [facility] Hyalgan 20 Hyalgan 20 2021-0 No 20mg C ommon mg mg 12-17 [facility] 00:00: - [facility] Hyalgan 20 Hyalgan 20 2021-0 No 20mg C ommon mg mg 12-17 [facility] 00:00: - [facility] Hyalgan 20 Hyalgan 20 2021-0 No 20mg C ommon mg mg 12-17 [facility] 00:00: - [facility] Hyalgan 20 Hyalgan 20 2021-0 No 20mg C ommon mg mg 12-17 [facility] 00:00: - [facility] Hyalgan 20 Hyalgan 20 2022-0 No 20mg C ommon mg mg 12-17 [facility] 00:00: - [facility] Hyalgan 20 Hyalgan 20 2021-0 No 20mg C ommon mg mg 12-17 [facility] 00:00: - [facility] Hyalgan 20 Hyalgan 20 2021-0 No 20mg C ommon mg mg 12-17 [facility] 00:00: - [facility] Hyalgan 20 Hyalgan 20 2021-0 No 20mg C ommon mg mg 12-17 [facility] 00:00: - [facility] Hyalgan 20 Hyalgan 20 2021-0 No 20mg C ommon mg mg 12-17 [facility] 00:00: - [facility] Hyalgan 20 Hyalgan 20 2021-0 No 20mg C ommon mg mg 12-17 [facility] 00:00: - [facility] Hyalgan 20 Hyalgan 20 2021-0 No 20mg C ommon mg mg 12-17 [facility] 00:00: - [facility] Hyalgan 20 Hyalgan 20 2021-0 No 20mg C ommon mg mg 12-17 [facility] 00:00: - [facility] Hyalgan 20 Hyalgan 20 2021-0 No 20mg C ommon mg mg 12-17 [facility] 00:00: - [facility] Hyalgan 20 Hyalgan 20 2021-0 No 20mg C ommon mg mg 12-17 [facility] 00:00: - [facility] Hyalgan 20 Hyalgan 20 2021-0 No 20mg C ommon mg mg 12-17 [facility] 00:00: - [facility] Hyalgan 20 Hyalgan 20 2021-0 No 20mg C ommon mg mg 12-17 [facility] 00:00: - [facility] Hyalgan 20 Hyalgan 20 2021-0 No 20mg C ommon mg mg 12-17 [facility] 00:00: - [facility] Hyalgan 20 Hyalgan 20 2-0 No 20mg C ommon mg mg 12-17 [facility] 00:00: - [facility] Hyalgan 20 Hyalgan 20 2021-0 No 20mg C ommon mg mg 12-17 [facility] 00:00: - [facility] Hyalgan 20 Hyalgan 20 2022-0 No 20mg C ommon mg mg 5-17 [facility] 00:00: - [facility] 00 [facility] Hyalgan 20 Hyalgan 20 2021-0 No 20mg C ommon mg mg 5-17 [facility] 00:00: - [facility] 00 [facility] Hyalgan 20 Hyalgan 20 2021-0 No 20mg C ommon mg mg 5-17 [facility] 00:00: - [facility] 00 [facility] Bupivicaine Bupivicaine 2021-0 No 2.5mg Common [place] [facility]10 [facility] 00:00: - [facility] 00 [facility] Bupivicaine Bupivicaine 2021-0 No 2.5mg Common [place] 5-10 [facility] 00:00: - [facility] 00 [facility] Kenalog Kenalog 2021-0 No 40mg Common (Triamcinol (Triamcinol 5-10 S pirit one) one) 00:00: - [facility] 00 [facility] Hyalgan 20 Hyalgan 20 2021-0 No 20mg C ommon mg mg 5-10 [facility] 00:00: - [facility] 00 [facility] Hyalgan 20 Hyalgan 20 2021-0 No 20mg C ommon mg mg 5-10 [facility] 00:00: - [facility] 00 [facility] Kenalog Kenalog 2021-0 No 40mg Common (Triamcinol (Triamcinol 5-10 S pirit one) one) 00:00: - [facility] 00 [facility] Bupivicaine Bupivicaine 2021-0 No 2.5mg Common [place] 5-10 [facility] 00:00: - [facility] 00 [facility] Bupivicaine Bupivicaine 2021-0 No 2.5mg Common [place] 5-10 [facility] 00:00: - [facility] 00 [facility] Kenalog Kenalog 2021-0 No 40mg Common (Triamcinol (Triamcinol 5-10 S pirit one) one) 00:00: - [facility] 00 [facility] Hyalgan 20 Hyalgan 20 2021-0 No 20mg C ommon mg mg 5-10 [facility] 00:00: - [facility] 00 [facility] Hyalgan 20 Hyalgan 20 2021-0 No 20mg C ommon mg mg 5-10 [facility] 00:00: - [facility] 00 [facility] Kenalog Kenalog 2021-0 No 40mg Common (Triamcinol (Triamcinol 5-10 S pirit one) one) 00:00: - [facility] 00 [facility] Bupivicaine Bupivicaine 2-0 No 2.5mg Common [place] 5-10 [facility] 00:00: - [facility] 00 [facility] Bupivicaine Bupivicaine 2-0 No 2.5mg Common [place] 5-10 [facility] 00:00: - [facility] 00 [facility] Kenalog Kenalog 2021-0 No 40mg Common (Triamcinol (Triamcinol 5-10 S pirit one) one) 00:00: - [facility] 00 [facility] Hyalgan 20 Hyalgan 20 2021-0 No 20mg C ommon mg mg 5-10 [facility] 00:00: - [facility] 00 [facility] Hyalgan 20 Hyalgan 20 2021-0 No 20mg C ommon mg mg 5-10 [facility] 00:00: - [facility] 00 [facility] Kenalog Kenalog 2021-0 No 40mg Common (Triamcinol (Triamcinol 5-10 S pirit one) one) 00:00: - [facility] 00 [facility] Bupivicaine Bupivicaine 2-0 No 2.5mg Common [place] 5-10 [facility] 00:00: - [facility] 00 [facility] Bupivicaine Bupivicaine 2-0 No 2.5mg Common [place] 5-10 [facility] 00:00: - [facility] 00 [facility] Kenalog Kenalog 2021-0 No 40mg Common (Triamcinol (Triamcinol 5-10 S pirit one) one) 00:00: - [facility] 00 [facility] Hyalgan 20 Hyalgan 20 2021-0 No 20mg C ommon mg mg 5-10 [facility] 00:00: - [facility] 00 [facility] Hyalgan 20 Hyalgan 20 2021-0 No 20mg C ommon mg mg 5-10 [facility] 00:00: - [facility] 00 [facility] Kenalog Kenalog 2021-0 No 40mg Common (Triamcinol (Triamcinol 5-10 S pirit one) one) 00:00: - [facility] 00 [facility] Bupivicaine Bupivicaine 2-0 No 2.5mg Common [place] 5-10 [facility] 00:00: - [facility] 00 [facility] Bupivicaine Bupivicaine 2-0 No 2.5mg Common [place] 5-10 [facility] 00:00: - [facility] 00 [facility] Kenalog Kenalog 2021-0 No 40mg Common (Triamcinol (Triamcinol 5-10 S pirit one) one) 00:00: - [facility] 00 [facility] Hyalgan 20 Hyalgan 20 2021-0 No 20mg C ommon mg mg 5-10 [facility] 00:00: - [facility] 00 [facility] Hyalgan 20 Hyalgan 20 2021-0 No 20mg C ommon mg mg 5-10 [facility] 00:00: - [facility] 00 [facility] Kenalog Kenalog 2021-0 No 40mg Common (Triamcinol (Triamcinol 5-10 S pirit one) one) 00:00: - [facility] 00 [facility] Bupivicaine Bupivicaine 2-0 No 2.5mg Common [place] 5-10 [facility] 00:00: - [facility] 00 [facility] Bupivicaine Bupivicaine 2-0 No 2.5mg Common [place] 5-10 [facility] 00:00: - [facility] 00 [facility] Kenalog Kenalog 2-0 No 40mg Common (Triamcinol (Triamcinol 5-10 S pirit one) one) 00:00: - [facility] 00 [facility] Hyalgan 20 Hyalgan 20 2021-0 No 20mg C ommon mg mg 5-10 [facility] 00:00: - [facility] 00 [facility] Hyalgan 20 Hyalgan 20 2021-0 No 20mg C ommon mg mg 5-10 [facility] 00:00: - [facility] 00 [facility] Kenalog Kenalog 2-0 No 40mg Common (Triamcinol (Triamcinol 5-10 S pirit one) one) 00:00: - [facility] 00 [facility] Bupivicaine Bupivicaine 2-0 No 2.5mg Common [place] 5-10 [facility] 00:00: - [facility] 00 [facility] Bupivicaine Bupivicaine 2-0 No 2.5mg Common [place] 5-10 [facility] 00:00: - [facility] 00 [facility] Kenalog Kenalog 2021-0 No 40mg Common (Triamcinol (Triamcinol 5-10 S pirit one) one) 00:00: - [facility] 00 [facility] Hyalgan 20 Hyalgan 20 2021-0 No 20mg C ommon mg mg 5-10 [facility] 00:00: - [facility] 00 [facility] Hyalgan 20 Hyalgan 20 2021-0 No 20mg C ommon mg mg 5-10 [facility] 00:00: - [facility] 00 [facility] Kenalog Kenalog 2021-0 No 40mg Common (Triamcinol (Triamcinol 5-10 S pirit one) one) 00:00: - [facility] 00 [facility] Bupivicaine Bupivicaine 2021-0 No 2.5mg Common [place] 5-10 [facility] 00:00: - [facility] 00 [facility] Bupivicaine Bupivicaine 2021-0 No 2.5mg Common [place] 5-10 [facility] 00:00: - [facility] 00 [facility] Kenalog Kenalog 2021-0 No 40mg Common (Triamcinol (Triamcinol 5-10 S pirit one) one) 00:00: - [facility] 00 [facility] Hyalgan 20 Hyalgan 20 2021-0 No 20mg C ommon mg mg 5-10 [facility] 00:00: - [facility] 00 [facility] Hyalgan 20 Hyalgan 20 2021-0 No 20mg C ommon mg mg 5-10 [facility] 00:00: - [facility] 00 [facility] Kenalog Kenalog 2021-0 No 40mg Common (Triamcinol (Triamcinol 5-10 S pirit one) one) 00:00: - [facility] 00 [facility] Bupivicaine Bupivicaine 2-0 No 2.5mg Common [place] 5-10 [facility] 00:00: - [facility] 00 [facility] Bupivicaine Bupivicaine 2-0 No 2.5mg Common [place] 5-10 [facility] 00:00: - [facility] 00 [facility] Kenalog Kenalog 2021-0 No 40mg Common (Triamcinol (Triamcinol 5-10 S pirit one) one) 00:00: - [facility] 00 [facility] Hyalgan 20 Hyalgan 20 2021-0 No 20mg C ommon mg mg 5-10 [facility] 00:00: - [facility] 00 [facility] Hyalgan 20 Hyalgan 20 2021-0 No 20mg C ommon mg mg 5-10 [facility] 00:00: - [facility] 00 [facility] Kenalog Kenalog 2021-0 No 40mg Common (Triamcinol (Triamcinol 5-10 S pirit one) one) 00:00: - [facility] 00 [facility] Bupivicaine Bupivicaine 2021-0 No 2.5mg Common [place] 5-10 [facility] 00:00: - [facility] 00 [facility] Bupivicaine Bupivicaine 2021-0 No 2.5mg Common [place] 5-10 [facility] 00:00: - [facility] 00 [facility] Kenalog Kenalog 2021-0 No 40mg Common (Triamcinol (Triamcinol 5-10 S pirit one) one) 00:00: - [facility] 00 [facility] Hyalgan 20 Hyalgan 20 2021-0 No 20mg C ommon mg mg 5-10 [facility] 00:00: - [facility] 00 [facility] Hyalgan 20 Hyalgan 20 2021-0 No 20mg C ommon mg mg 5-10 [facility] 00:00: - [facility] 00 [facility] Kenalog Kenalog 2021-0 No 40mg Common (Triamcinol (Triamcinol 5-10 S pirit one) one) 00:00: - [facility] 00 [facility] Bupivicaine Bupivicaine 2-0 No 2.5mg Common [place] 5-10 [facility] 00:00: - [facility] 00 [facility] Bupivicaine Bupivicaine 2-0 No 2.5mg Common [place] 5-10 [facility] 00:00: - [facility] 00 [facility] Bupivicaine Bupivicaine 2-0 No 2.5mg Common [place] 5-10 [facility] 00:00: - [facility] 00 [facility] Kenalog Kenalog 2021-0 No 40mg Common (Triamcinol (Triamcinol 5-10 S pirit one) one) 00:00: - [facility] 00 [facility] Bupivicaine Bupivicaine 2021-0 No 2.5mg Common [place] 5-10 [facility] 00:00: - [facility] 00 [facility] Hyalgan 20 Hyalgan 20 2021-0 No 20mg C ommon mg mg 5-10 [facility] 00:00: - [facility] Hyalgan 20 Hyalgan 20 2021-0 No 20mg C ommon mg mg 5-10 [facility] 00:00: - [facility] 00 [facility] Kenalog Kenalog 2021-0 No 40mg Common (Triamcinol (Triamcinol 5-10 S pirit one) one) 00:00: - [facility] 00 [facility] Bupivicaine Bupivicaine 2021-0 No 2.5mg Common [place] 5-10 [facility] 00:00: - [facility] Bupivicaine Bupivicaine 2021-0 No 2.5mg Common [place] 5-10 [facility] 00:00: - [facility] 00 [facility] Kenalog Kenalog 2021-0 No 40mg Common (Triamcinol (Triamcinol 5-10 S pirit one) one) 00:00: - [facility] 00 [facility] Kenalog Kenalog 2021-0 No 40mg Common (Triamcinol (Triamcinol 5-10 S pirit one) one) 00:00: - [facility] 00 [facility] Hyalgan 20 Hyalgan 20 2021-0 No 20mg C ommon mg mg 5-10 [facility] 00:00: - [facility] 00 [facility] Hyalgan 20 Hyalgan 20 2021-0 No 20mg C ommon mg mg 5-10 [facility] 00:00: - [facility] 00 [facility] Kenalog Kenalog 2021-0 No 40mg Common (Triamcinol (Triamcinol 5-10 S pirit one) one) 00:00: - [facility] 00 [facility] Hyalgan 20 Hyalgan 20 2021-0 No 20mg C ommon mg mg 5-10 [facility] 00:00: - [facility] Hyalgan 20 Hyalgan 20 2021-0 No 20mg C ommon mg mg 5-10 [facility] 00:00: - [facility] 00 [facility] Kenalog Kenalog 2021-0 No 40mg Common (Triamcinol (Triamcinol 5-10 S pirit one) one) 00:00: - [facility] 00 [facility] Bupivicaine Bupivicaine 2-0 No 2.5mg Common [place] 5-10 [facility] 00:00: - [facility] 00 [facility] Bupivicaine Bupivicaine 2-0 No 2.5mg Common [place] 5-10 [facility] 00:00: - [facility] 00 [facility] Kenalog Kenalog 2021-0 No 40mg Common (Triamcinol (Triamcinol 5-10 S pirit one) one) 00:00: - [facility] 00 [facility] Hyalgan 20 Hyalgan 20 2021-0 No 20mg C ommon mg mg 5-10 [facility] 00:00: - [facility] 00 [facility] Hyalgan 20 Hyalgan 20 2021-0 No 20mg C ommon mg mg 5-10 [facility] 00:00: - [facility] 00 [facility] Hyalgan 20 Hyalgan 20 2021-0 No 20mg C ommon mg mg 5-10 [facility] 00:00: - [facility] 00 [facility] Kenalog Kenalog 2021-0 No 40mg Common (Triamcinol (Triamcinol 5-10 S pirit one) one) 00:00: - [facility] 00 [facility] Bupivicaine Bupivicaine 2-0 No 2.5mg Common [place] 5-10 [facility] 00:00: - [facility] 00 [facility] Bupivicaine Bupivicaine 2-0 No 2.5mg Common [place] 5-10 [facility] 00:00: - [facility] 00 [facility] Kenalog Kenalog 2-0 No 40mg Common (Triamcinol (Triamcinol 5-10 S pirit one) one) 00:00: - [facility] 00 [facility] Hyalgan 20 Hyalgan 20 2021-0 No 20mg C ommon mg mg 5-10 [facility] 00:00: - [facility] 00 [facility] Kenalog Kenalog 2021-0 No 40mg Common (Triamcinol (Triamcinol 5-10 S pirit one) one) 00:00: - [facility] 00 [facility] Hyalgan 20 Hyalgan 20 2021-0 No 20mg C ommon mg mg 5-10 [facility] 00:00: - [facility] 00 [facility] Kenalog Kenalog 2021-0 No 40mg Common (Triamcinol (Triamcinol 5-10 S pirit one) one) 00:00: - [facility] 00 [facility] Bupivicaine Bupivicaine 2021-0 No 2.5mg Common [place] 5-10 [facility] 00:00: - [facility] 00 [facility] Bupivicaine Bupivicaine 2021-0 No 2.5mg Common [place] 5-10 [facility] 00:00: - [facility] 00 [facility] Kenalog Kenalog 2021-0 No 40mg Common (Triamcinol (Triamcinol 5-10 S pirit one) one) 00:00: - [facility] 00 [facility] Hyalgan 20 Hyalgan 20 2021-0 No 20mg C ommon mg mg 5-10 [facility] 00:00: - [facility] 00 [facility] Hyalgan 20 Hyalgan 20 2021-0 No 20mg C ommon mg mg 5-10 [facility] 00:00: - [facility] 00 [facility] Kenalog Kenalog 2021-0 No 40mg Common (Triamcinol (Triamcinol 5-10 S pirit one) one) 00:00: - [facility] 00 [facility] Bupivicaine Bupivicaine 2-0 No 2.5mg Common [place] 5-10 [facility] 00:00: - [facility] 00 [facility] Bupivicaine Bupivicaine 2-0 No 2.5mg Common [place] 5-10 [facility] 00:00: - [facility] 00 [facility] Kenalog Kenalog 2021-0 No 40mg Common (Triamcinol (Triamcinol 5-10 S pirit one) one) 00:00: - [facility] 00 [facility] Hyalgan 20 Hyalgan 20 2021-0 No 20mg C ommon mg mg 5-10 [facility] 00:00: - [facility] 00 [facility] Hyalgan 20 Hyalgan 20 2021-0 No 20mg C ommon mg mg 5-10 [facility] 00:00: - [facility] 00 [facility] Kenalog Kenalog 2021-0 No 40mg Common (Triamcinol (Triamcinol 5-10 S pirit one) one) 00:00: - [facility] 00 [facility] Bupivicaine Bupivicaine 2021-0 No 2.5mg Common [place] 5-10 [facility] 00:00: - [facility] 00 [facility] Bupivicaine Bupivicaine 2021-0 No 2.5mg Common [place] 5-10 [facility] 00:00: - [facility] 00 [facility] Kenalog Kenalog 2021-0 No 40mg Common (Triamcinol (Triamcinol 5-10 S pirit one) one) 00:00: - [facility] 00 [facility] Hyalgan 20 Hyalgan 20 2021-0 No 20mg C ommon mg mg 5-10 [facility] 00:00: - [facility] 00 [facility] Hyalgan 20 Hyalgan 20 2021-0 No 20mg C ommon mg mg 5-10 [facility] 00:00: - [facility] 00 [facility] Kenalog Kenalog 2021-0 No 40mg Common (Triamcinol (Triamcinol 5-10 S pirit one) one) 00:00: - [facility] 00 [facility] Bupivicaine Bupivicaine 2021-0 No 2.5mg Common [place] 5[place]10 [facility] 00:00: - [facility] 00 [facility] Bupivicaine Bupivicaine 2-0 No 2.5mg Common [place] 5-10 [facility] 00:00: - [facility] 00 [facility] Kenalog Kenalog 2021-0 No 40mg Common (Triamcinol (Triamcinol 5-10 S pirit one) one) 00:00: - [facility] 00 [facility] Hyalgan 20 Hyalgan 20 2021-0 No 20mg C ommon mg mg 5-10 [facility] 00:00: - [facility] 00 [facility] Hyalgan 20 Hyalgan 20 2021-0 No 20mg C ommon mg mg 5-10 [facility] 00:00: - [facility] 00 [facility] Kenalog Kenalog 2021-0 No 40mg Common (Triamcinol (Triamcinol 5-10 S pirit one) one) 00:00: - [facility] 00 [facility] Bupivicaine Bupivicaine 2-0 No 2.5mg Common [place] 5[place]10 [facility] 00:00: - [facility] 00 [facility] Kenalog Kenalog 2021-0 No 40mg Common (Triamcinol (Triamcinol 5-10 S pirit one) one) 00:00: - [facility] 00 [facility] Hyalgan 20 Hyalgan 20 2021-0 No 20mg C ommon mg mg 5-10 [facility] 00:00: - [facility] 00 [facility] Bupivicaine Bupivicaine 2021-0 No 2.5mg Common [place] 5[place]10 [facility] 00:00: - [facility] 00 [facility] Bupivicaine Bupivicaine 2-0 No 2.5mg Common [place] 5[place]10 [facility] 00:00: - [facility] 00 [facility] Hyalgan 20 Hyalgan 20 2021-0 No 20mg C ommon mg mg 5-10 [facility] 00:00: - [facility] 00 [facility] Bupivicaine Bupivicaine 2021-0 No 2.5mg Common [place] 5[place]10 [facility] 00:00: - [facility] 00 [facility] Kenalog Kenalog 2021-0 No 40mg Common (Triamcinol (Triamcinol 5-10 S pirit one) one) 00:00: - [facility] 00 [facility] Bupivicaine Bupivicaine 2-0 No 2.5mg Common [place] 5[place]10 [facility] 00:00: - [facility] 00 [facility] Kenalog Kenalog 2021-0 No 40mg Common (Triamcinol (Triamcinol 5-10 S pirit one) one) 00:00: - [facility] 00 [facility] Hyalgan 20 Hyalgan 20 2021-0 No 20mg C ommon mg mg 5-10 [facility] 00:00: - [facility] 00 [facility] Bupivicaine Bupivicaine 2-0 No 2.5mg Common [place] 5[place]10 [facility] 00:00: - [facility] 00 [facility] Kenalog Kenalog 2-0 No 40mg Common (Triamcinol (Triamcinol 5-10 S pirit one) one) 00:00: - [facility] 00 [facility] Hyalgan 20 Hyalgan 20 2021-0 No 20mg C ommon mg mg 5-10 [facility] 00:00: - [facility] 00 [facility] Kenalog Kenalog 2021-0 No 40mg Common (Triamcinol (Triamcinol 5-10 S pirit one) one) 00:00: - [facility] 00 [facility] Bupivicaine Bupivicaine 2021-0 No 2.5mg Common [place] 5[place]10 [facility] 00:00: - [facility] 00 [facility] Kenalog Kenalog 2021-0 No 40mg Common (Triamcinol (Triamcinol 5-10 S pirit one) one) 00:00: - [facility] 00 [facility] Hyalgan 20 Hyalgan 20 2021-0 No 20mg C ommon mg mg 5-10 [facility] 00:00: - [facility] 00 [facility] Bupivicaine Bupivicaine 2021-0 No 2.5mg Common [place] 5[place]10 [facility] 00:00: - [facility] 00 [facility] Hyalgan 20 Hyalgan 20 2021-0 No 20mg C ommon mg mg 5-10 [facility] 00:00: - [facility] 00 [facility] Kenalog Kenalog 2021-0 No 40mg Common (Triamcinol (Triamcinol 5-10 S pirit one) one) 00:00: - [facility] 00 [facility] Bupivicaine Bupivicaine 2021-0 No 2.5mg Common [place] 5[place]10 [facility] 00:00: - [facility] 00 [facility] Kenalog Kenalog 2021-0 No 40mg Common (Triamcinol (Triamcinol 5-10 S pirit one) one) 00:00: - [facility] 00 [facility] Hyalgan 20 Hyalgan 20 2021-0 No 20mg C ommon mg mg 5-10 [facility] 00:00: - [facility] 00 [facility] Hyalgan 20 Hyalgan 20 2021-0 No 20mg C ommon mg mg 5-10 [facility] 00:00: - [facility] 00 [facility] Bupivicaine Bupivicaine 2-0 No 2.5mg Common [place] 5[place]10 [facility] 00:00: - [facility] 00 [facility] Hyalgan 20 Hyalgan 20 2021-0 No 20mg C ommon mg mg 5-10 [facility] 00:00: - [facility] 00 [facility] Hyalgan 20 Hyalgan 20 2021-0 No 20mg C ommon mg mg 5-10 [facility] 00:00: - [facility] 00 [facility] Kenalog Kenalog 2021-0 No 40mg Common (Triamcinol (Triamcinol 5-10 S pirit one) one) 00:00: - [facility] 00 [facility] Bupivicaine Bupivicaine 2021-0 No 2.5mg Common [place] 5[place]10 [facility] 00:00: - [facility] 00 [facility] Kenalog Kenalog 2021-0 No 40mg Common (Triamcinol (Triamcinol 5-10 S pirit one) one) 00:00: - [facility] 00 [facility] Hyalgan 20 Hyalgan 20 2021-0 No 20mg C ommon mg mg 5-10 [facility] 00:00: - [facility] 00 [facility] Bupivicaine Bupivicaine 2021-0 No 2.5mg Common [place] 5[place]10 [facility] 00:00: - [facility] 00 [facility] Kenalog Kenalog 2021-0 No 40mg Common (Triamcinol (Triamcinol 5-10 S pirit one) one) 00:00: - [facility] 00 [facility] Hyalgan 20 Hyalgan 20 2021-0 No 20mg C ommon mg mg 5-10 [facility] 00:00: - [facility] 00 [facility] Kenalog Kenalog 2021-0 No 40mg Common (Triamcinol (Triamcinol 5-10 S pirit one) one) 00:00: - [facility] 00 [facility] Bupivicaine Bupivicaine 2021-0 No 2.5mg Common [place]10 [facility] 00:00: - [facility] 00 [facility] Kenalog Kenalog 2021-0 No 40mg Common (Triamcinol (Triamcinol 5-10 S pirit one) one) 00:00: - [facility] 00 [facility] Hyalgan 20 Hyalgan 20 2021-0 No 20mg C ommon mg mg 5-10 Spirit 00:00: - [facility] 00 [facility] Bupivicaine Bupivicaine 2021-0 No 2.5mg Common [place] 5-10 [facility] 00:00: - [facility] 00 [facility] Bupivicaine Bupivicaine 2021-0 No 2.5mg Common [place] 5-10 [facility] 00:00: - [facility] 00 [facility] Bupivicaine Bupivicaine 2021-0 No 2.5mg Common [place] 5-10 [facility] 00:00: - [facility] 00 [facility] Kenalog Kenalog 2021-0 No 40mg Common (Triamcinol (Triamcinol 5-10 S pirit one) one) 00:00: - [facility] 00 [facility] Hyalgan 20 Hyalgan 20 2021-0 No 20mg C ommon mg mg 5-10 Spirit 00:00: - [facility] 00 [facility] Hyalgan 20 Hyalgan 20 2021-0 No 20mg C ommon mg mg 5-10 Spirit 00:00: - [facility] 00 [facility] Kenalog Kenalog 2021-0 No 40mg Common (Triamcinol (Triamcinol 5-10 S pirit one) one) 00:00: - [facility] 00 [facility] Bupivicaine Bupivicaine 2021-0 No 2.5mg Common [place] 5-10 [facility] 00:00: - [facility] 00 [facility] Bupivicaine Bupivicaine 2021-0 No 2.5mg Common [place] 5-10 [facility] 00:00: - [facility] 00 [facility] Kenalog Kenalog 2021-0 No 40mg Common (Triamcinol (Triamcinol 5-10 S pirit one) one) 00:00: - [facility] 00 [facility] Hyalgan 20 Hyalgan 20 2021-0 No 20mg C ommon mg mg 5-10 Spirit 00:00: - [facility] 00 [facility] Hyalgan 20 Hyalgan 20 2021-0 No 20mg C ommon mg mg 5-10 Spirit 00:00: - [facility] 00 [facility] Kenalog Kenalog 2021-0 No 40mg Common (Triamcinol (Triamcinol 5-10 S pirit one) one) 00:00: - [facility] 00 [facility] Kenalog Kenalog 2021-0 No 40mg Common (Triamcinol (Triamcinol 5-10 S pirit one) one) 00:00: - [facility] 00 [facility] Bupivicaine Bupivicaine 2-0 No 2.5mg Common [place] 5-10 [facility] 00:00: - [facility] 00 [facility] Bupivicaine Bupivicaine 2-0 No 2.5mg Common [place] 5-10 [facility] 00:00: - [facility] 00 [facility] Hyalgan 20 Hyalgan 20 2021-0 No 20mg C ommon mg mg 5-10 Spirit 00:00: - [facility] 00 [facility] Hyalgan 20 Hyalgan 20 2021-0 No 20mg C ommon mg mg 5-10 Spirit 00:00: - [facility] 00 [facility] Kenalog Kenalog 2021-0 No 40mg Common (Triamcinol (Triamcinol 5-10 S pirit one) one) 00:00: - [facility] 00 [facility] Bupivicaine Bupivicaine 2021-0 No 2.5mg Common [place] 5-10 [facility] 00:00: - [facility] 00 [facility] Bupivicaine Bupivicaine 2-0 No 2.5mg Common [place] 5-10 [facility] 00:00: - [facility] 00 [facility] Kenalog Kenalog 2021-0 No 40mg Common (Triamcinol (Triamcinol 5-10 S pirit one) one) 00:00: - [facility] 00 [facility] Hyalgan 20 Hyalgan 20 2021-0 No 20mg C ommon mg mg 5-10 Spirit 00:00: - [facility] 00 [facility] Hyalgan 20 Hyalgan 20 2021-0 No 20mg C ommon mg mg 5-10 Spirit 00:00: - [facility] 00 [facility] Kenalog Kenalog 2021-0 No 40mg Common (Triamcinol (Triamcinol 5-10 S pirit one) one) 00:00: - [facility] 00 [facility] Bupivicaine Bupivicaine 2-0 No 2.5mg Common [place] 5-10 [facility] 00:00: - [facility] 00 [facility] Bupivicaine Bupivicaine 2-0 No 2.5mg Common [place] 5-10 [facility] 00:00: - [facility] 00 [facility] Kenalog Kenalog 2021-0 No 40mg Common (Triamcinol (Triamcinol 5-10 S pirit one) one) 00:00: - [facility] 00 [facility] Hyalgan 20 Hyalgan 20 2021-0 No 20mg C ommon mg mg 5-10 Spirit 00:00: - [facility] Hyalgan 20 Hyalgan 20 2021-0 No 20mg C ommon mg mg 5-10 Spirit 00:00: - [facility] 00 [facility] Kenalog Kenalog 2021-0 No 40mg Common (Triamcinol (Triamcinol 5-10 S pirit one) one) 00:00: - [facility] 00 [facility] AirDuo AirDuo 2021-0 2022- No 1{puff} BID AirDuo RespiClick RespiClick 12-06- RespiClick 232/14 232/14 00:00: 00:00 232/14 232-14 232-14 00 :00 232-14 MCG/ACT MCG/ACT MCG/ACT AirDuo AirDuo 2021-0 3- No 1{puff} BID AirDuo RespiClick RespiClick 12-06- [...] 232-14 MCG/ACT MCG/ACT MCG/ACT AirDuo AirDuo 2022-0 2022- No 1{puff} BID AirDuo RespiClick RespiClick 12-06 RespiClick 232/14 232/14 00:00: 00:00 232/14 232-14 232-14 00 :00 232-14 MCG/ACT MCG/ACT MCG/ACT AirDuo AirDuo 2022-0 2022- No 1{puff} BID AirDuo RespiClick RespiClick 12-06 RespiClick 232/14 232/14 00:00: 00:00 232/14 232-14 232-14 00 :00 232-14 MCG/ACT MCG/ACT MCG/ACT AirDuo AirDuo 2022-0 2022- No 1{puff} BID AirDuo RespiClick RespiClick 12-06 RespiClick 232/14 232/14 00:00: 00:00 232/14 232-14 232-14 00 :00 232-14 MCG/ACT MCG/ACT MCG/ACT AirDuo AirDuo 2022-0 2022- No 1{puff} BID AirDuo RespiClick RespiClick 12-06 RespiClick 232/14 232/14 00:00: 00:00 232/14 232-14 232-14 00 :00 232-14 MCG/ACT MCG/ACT MCG/ACT AirDuo AirDuo 202-0 2022- No 1{puff} BID AirDuo RespiClick RespiClick 12-06 RespiClick 232/14 232/14 00:00: 00:00 232/14 232-14 232-14 00 :00 232-14 MCG/ACT MCG/ACT MCG/ACT Trelegy Trelegy 2021-0 2- No 1{puff} QD Trelegy Ellipta Ellipta -27 02-27 Ellipta 200-62.5-25 200-62.5-25 00:00: 00:00 200-62.5-2 MCG/INH MCG/INH 00 :00 5 MCG/INH Trelegy Trelegy 2021-0 2- No 1{puff} QD Trelegy Ellipta Ellipta 11-28-27 Ellipta 200-62.5-25 200-62.5-25 00:00: 00:00 200-62.5-2 MCG/INH MCG/INH 00 :00 5 MCG/INH Trelegy Trelegy 2021-0 2- No 1{puff} QD Trelegy Ellipta Ellipta 11-28-27 Ellipta 200-62.5-25 200-62.5-25 00:00: 00:00 200-62.5-2 MCG/INH MCG/INH 00 :00 5 MCG/INH Trelegy Trelegy 2021-0 2- No 1{puff} QD Trelegy Ellipta Ellipta -27 02-27 Ellipta 200-62.5-25 200-62.5-25 00:00: 00:00 200-62.5-2 MCG/INH MCG/INH 00 :00 5 MCG/INH Trelegy Trelegy 2-0 2- No 1{puff} QD Trelegy Ellipta Ellipta - 07-27 Ellipta 200-62.5-25 200-62.5-25 00:00: 00:00 200-62.5-2 MCG/INH MCG/INH 00 :00 5 MCG/INH Trelegy Trelegy 2021-0 2- No 1{puff} QD Trelegy Ellipta Ellipta -27 02-27 Ellipta 200-62.5-25 200-62.5-25 00:00: 00:00 200-62.5-2 MCG/INH MCG/INH 00 :00 5 MCG/INH gabapentin 1-0 Yes 600 mg = 2 M emoria 300 MG Oral 9-30 cap, PO, l Capsule 20:29: QPM, # 60 Kamini nn 00 cap, 3 Refill(s), [id number], 172.72, cm, 05/02/21 15:03:00 CDT, Height, 97.273, kg, 05/02/21 15:03:00 CDT, Weight gabapentin 1-0 Yes 600 mg = 2 M emoria 300 MG Oral 9-30 cap, PO, l Capsule 20:29: QPM, # 60 Kamini nn 00 cap, 3 Refill(s), [id number], 172.72, cm, 05/02/21 15:03:00 CDT, Height, 97.273, kg, 05/02/21 15:03:00 CDT, Weight gabapentin 2020-0 Yes 600 mg = 2 M emoria 300 MG Oral 9-30 cap, PO, l Capsule 20:29: QPM, # 60 Kamini nn 00 cap, 3 Refill(s), Pharmacy: [facility] STORE #[id number], 172.72, cm, 05/02/21 15:03:00 CDT, Height, 97.273, kg, 05/02/21 15:03:00 CDT, Weight Lorazepam 2020-0 No See Memoria 0.5 MG Oral 9-07 Instructio l Tablet 14:55: ns, Take 1 Kamini nn [Ativan] 00 tab po 1 hour prior to MRI, may repeat q 15 min. if still anxious, # 5 tab, 0 Refill(s), Pharmacy: [facility] STORE #[id number], 172.72, cm, 03/27/21 10:39:00 CDT, Height, 98.182, kg, 03/27/21 10:39:00 CDT, Weight Lorazepam 2020-0 No See Memoria 0.5 MG Oral 9-07 Instructio l Tablet 14:55: ns, Take 1 Kamini nn [Ativan] 00 tab po 1 hour prior to MRI, may repeat q 15 min. if still anxious, # 5 tab, 0 Refill(s), Pharmacy: [facility] STORE #[id number], 172.72, cm, 03/27/21 10:39:00 CDT, Height, 98.182, kg, 03/27/21 10:39:00 CDT, Weight Lorazepam 0 No See Memoria 0.5 MG Oral 907 Instructio l Tablet 14:55: ns, Take 1 Kamini nn [Ativan] 00 tab po 1 hour prior to MRI, may repeat q 15 min. if still anxious, # 5 tab, 0 Refill(s), Pharmacy: [facility] STORE #[id number], 172.72, cm, 03/27/21 10:39:00 CDT, Height, 98.182, kg, 03/27/21 10:39:00 CDT, Weight Vitamin D3 2020-0 Yes 0 Memoria 6-21 Refill(s) l 14:58: [place] 00 Vitamin D3 2020-0 Yes 0 Memoria 6-21 Refill(s) l 14:58: [place] 00 Vitamin D3 2020-0 Yes 0 Memoria 6-21 Refill(s) l 14:58: [place] 00 Vitamin C 2020-0 Yes Daily, 0 Abdiel princess 6-21 Refill(s) l 14:57: [place] 00 Aspirin 2020-0 Yes 0 Memoria 6-21 Refill(s) l 14:57: [place] 00 Vitamin C 2020-0 Yes Daily, 0 Abdiel princess 6-21 Refill(s) l 14:57: [place] 00 Aspirin 2020-0 Yes 0 Memoria 6-21 Refill(s) l 14:57: [place] 00 Vitamin C 2020-0 Yes Daily, 0 Abdiel princess 6-21 Refill(s) l 14:57: [place] 00 Aspirin 2020-0 Yes 0 Memoria 6-21 Refill(s) l 14:57: [place] 00 Furosemide 2020-0 Yes 0 Memoria 40 MG Oral 6-21 Refill(s) l Tablet 14:42: [place] 00 {2 (480 ML No 0 Memoria Magnesium 6-21 Refill(s) l Sulfate 14:42: [place] 0.0277 00 MEQ/ML / potassium sulfate 0.0374 [...] Memoria Magnesium 6-21 Refill(s) l Sulfate 14:42: [place] 0.0277 00 MEQ/ML / potassium sulfate 0.0374 MEQ/ML / sodium sulfate 0.257 MEQ/ML Oral Solution) } Pack [Suprep Bowel Prep Kit] citalopram 0 Yes 0 Memoria 10 mg oral 6-21 Refill(s) l tablet 14:41: Trelegy 0 Yes 0 Memoria Ellipta 6-21 Refill(s) l inhalation 14:41: omeprazole 0 Yes 0 Memoria 40 mg oral 6-21 Refill(s) l delayed 14:41: capsule amLODIPine 0 Yes 0 Memoria 10 mg oral 6-21 Refill(s) l tablet 14:41: losartan 0 Yes 0 Memoria 100 mg oral 6-21 Refill(s) l tablet 14:41: citalopram 0 Yes 0 Memoria 10 mg oral 6-21 Refill(s) l tablet 14:41: Trelegy 0 Yes 0 Memoria Ellipta 6-21 Refill(s) l inhalation 14:41: omeprazole 2020-0 Yes 0 Memoria 40 mg oral 6-21 Refill(s) l delayed 14:41: release capsule amLODIPine 0 Yes 0 Memoria 10 [...] mg oral 6-21 Refill(s) l delayed 14:41: 00 capsule amLODIPine 2020-0 Yes 0 Memoria 10 mg oral 6-21 Refill(s) l tablet 14:41: losartan 2020-0 Yes 0 Memoria 100 mg oral 6-21 Refill(s) l tablet 14:41: Hyalgan 20 Hyalgan 20 2020-0 No 20mg C ommon mg mg 5-11 Spirit 00:00: - [facility] Hyalgan 20 Hyalgan 20 2020-0 No 20mg C ommon mg mg 5- Spirit 00:00: - [facility] Hyalgan 20 Hyalgan 20 2020-0 No 20mg C ommon mg mg 5- Spirit 00:00: - [facility] Hyalgan 20 Hyalgan 20 2020-0 No 20mg C ommon mg mg 5- Spirit 00:00: - [facility] Hyalgan 20 Hyalgan 20 2020-0 No 20mg C ommon mg mg 5- Spirit 00:00: - [facility] Hyalgan 20 Hyalgan 20 2020-0 No 20mg C ommon mg mg 5- Spirit 00:00: - [facility] Hyalgan 20 Hyalgan 20 2020-0 No 20mg C ommon mg mg 5- Spirit 00:00: - [facility] Hyalgan 20 Hyalgan 20 2020-0 No 20mg C ommon mg mg 5- Spirit 00:00: - [facility] Hyalgan 20 Hyalgan 20 2020-0 No 20mg C ommon mg mg 5- Spirit 00:00: - [facility] Hyalgan 20 Hyalgan 20 2020-0 No 20mg C ommon mg mg 12-11 Spirit 00:00: - [facility] Hyalgan 20 Hyalgan 20 2020-0 No 20mg C ommon mg mg 12-11 Spirit 00:00: - [facility] Hyalgan 20 Hyalgan 20 2020-0 No 20mg C ommon mg mg 12-11 Spirit 00:00: - [facility] Hyalgan 20 Hyalgan 20 2020-0 No 20mg C ommon mg mg 12-11 Spirit 00:00: - [facility] Hyalgan 20 Hyalgan 20 2020-0 No 20mg C ommon mg mg 12-11 Spirit 00:00: - [facility] Hyalgan 20 Hyalgan 20 2020-0 No 20mg C ommon mg mg 12-11 Spirit 00:00: - [facility] Hyalgan 20 Hyalgan 20 2020-0 No 20mg C ommon mg mg 12-11 Spirit 00:00: - [facility] Hyalgan 20 Hyalgan 20 2020-0 No 20mg C ommon mg mg 12-11 Spirit 00:00: - [facility] Hyalgan 20 Hyalgan 20 2020-0 No 20mg C ommon mg mg 12-11 Spirit 00:00: - [facility] Hyalgan 20 Hyalgan 20 2020-0 No 20mg C ommon mg mg 12-11 Spirit 00:00: - [facility] Hyalgan 20 Hyalgan 20 2020-0 No 20mg C ommon mg mg 12-11 Spirit 00:00: - [facility] Hyalgan 20 Hyalgan 20 2020-0 No 20mg C ommon mg mg 12-11 Spirit 00:00: - [facility] Hyalgan 20 Hyalgan 20 2020-0 No 20mg C ommon mg mg 12-11 Spirit 00:00: - [facility] Hyalgan 20 Hyalgan 20 1-0 No 20mg C ommon mg mg 12-11 Spirit 00:00: - [facility] Hyalgan 20 Hyalgan 20 2020-0 No 20mg C ommon mg mg 12-11 Spirit 00:00: - [facility] Hyalgan 20 Hyalgan 20 2020-0 No 20mg C ommon mg mg 12-11 Spirit 00:00: - [facility] Hyalgan 20 Hyalgan 20 2020-0 No 20mg C ommon mg mg 12-11 Spirit 00:00: - [facility] Hyalgan 20 Hyalgan 20 1-0 No 20mg C ommon mg mg 12-11 Spirit 00:00: - [facility] Hyalgan 20 Hyalgan 20 2020-0 No 20mg C ommon mg mg 12-11 Spirit 00:00: - [facility] Hyalgan 20 Hyalgan 20 2020-0 No 20mg C ommon mg mg 12-11 Spirit 00:00: - [facility] Hyalgan 20 Hyalgan 20 2020-0 No 20mg C ommon mg mg 12-11 Spirit 00:00: - [facility] Hyalgan 20 Hyalgan 20 2020-0 No 20mg C ommon mg mg 12-11 Spirit 00:00: - [facility] Hyalgan 20 Hyalgan 20 2020-0 No 20mg C ommon mg mg 12-11 Spirit 00:00: - [facility] Hyalgan 20 Hyalgan 20 2020-0 No 20mg C ommon mg mg 12-11 Spirit 00:00: - [facility] Hyalgan 20 Hyalgan 20 2020-0 No 20mg C ommon mg mg 12-11 Spirit 00:00: - [facility] Hyalgan 20 Hyalgan 20 2020-0 No 20mg C ommon mg mg 12-11 Spirit 00:00: - [facility] Hyalgan 20 Hyalgan 20 1-0 No 20mg C ommon mg mg 12-11 Spirit 00:00: - [facility] Hyalgan 20 Hyalgan 20 1-0 No 20mg C ommon mg mg 12-11 Spirit 00:00: - [facility] Hyalgan 20 Hyalgan 20 1-0 No 20mg C ommon mg mg 12-11 Spirit 00:00: - [facility] Hyalgan 20 Hyalgan 20 1-0 No 20mg C ommon mg mg 12-11 Spirit 00:00: - [facility] Hyalgan 20 Hyalgan 20 1-0 No 20mg C ommon mg mg 12-11 Spirit 00:00: - [facility] Hyalgan 20 Hyalgan 20 1-0 No 20mg C ommon mg mg 12-11 Spirit 00:00: - [facility] Hyalgan 20 Hyalgan 20 1-0 No 20mg C ommon mg mg 12-11 Spirit 00:00: - [facility] Hyalgan 20 Hyalgan 20 1-0 No 20mg C ommon mg mg 12-11 Spirit 00:00: - [facility] Hyalgan 20 Hyalgan 20 2020-0 No 20mg C ommon mg mg 12-11 Spirit 00:00: - [facility] Hyalgan 20 Hyalgan 20 2020-0 No 20mg C ommon mg mg 12-11 Spirit 00:00: - [facility] Hyalgan 20 Hyalgan 20 2020-0 No 20mg C ommon mg mg 12-11 Spirit 00:00: - [facility] Hyalgan 20 Hyalgan 20 2020-0 No 20mg C ommon mg mg 12-11 Spirit 00:00: - [facility] Hyalgan 20 Hyalgan 20 2020-0 No 20mg C ommon mg mg 12-11 Spirit 00:00: - [facility] Hyalgan 20 Hyalgan 20 1-0 No 20mg C ommon mg mg 12-11 Spirit 00:00: - [facility] Hyalgan 20 Hyalgan 20 2020-0 No 20mg C ommon mg mg 12-11 Spirit 00:00: - [facility] Hyalgan 20 Hyalgan 20 1-0 No 20mg C ommon mg mg 12-11 Spirit 00:00: - [facility] Hyalgan 20 Hyalgan 20 1-0 No 20mg C ommon mg mg 12-11 Spirit 00:00: - [facility] Hyalgan 20 Hyalgan 20 1-0 No 20mg C ommon mg mg 12-11 Spirit 00:00: - [facility] Hyalgan 20 Hyalgan 20 1-0 No 20mg C ommon mg mg 12-11 Spirit 00:00: - [facility] Hyalgan 20 Hyalgan 20 2020-0 No 20mg C ommon mg mg 12-11 Spirit 00:00: - [facility] Hyalgan 20 Hyalgan 20 2020-0 No 20mg C ommon mg mg 12-11 Spirit 00:00: - [facility] Hyalgan 20 Hyalgan 20 2020-0 No 20mg C ommon mg mg 12-11 Spirit 00:00: - [facility] Hyalgan 20 Hyalgan 20 2020-0 No 20mg C ommon mg mg 12-11 Spirit 00:00: - [facility] Hyalgan 20 Hyalgan 20 2020-0 No 20mg C ommon mg mg 12-11 Spirit 00:00: - [facility] Hyalgan 20 Hyalgan 20 2020-0 No 20mg C ommon mg mg 12-11 Spirit 00:00: - [facility] Hyalgan 20 Hyalgan 20 2020-0 No 20mg C ommon mg mg 12-11 Spirit 00:00: - [facility] Hyalgan 20 Hyalgan 20 2020-0 No 20mg C ommon mg mg 12-11 Spirit 00:00: - [facility] Hyalgan 20 Hyalgan 20 2020-0 No 20mg C ommon mg mg 12-11 Spirit 00:00: - [facility] Hyalgan 20 Hyalgan 20 2020-0 No 20mg C ommon mg mg 12-11 Spirit 00:00: - [facility] Hyalgan 20 Hyalgan 20 2020-0 No 20mg C ommon mg mg 12-11 Spirit 00:00: - [facility] Hyalgan 20 Hyalgan 20 2020-0 No 20mg C ommon mg mg 12-11 Spirit 00:00: - [facility] Hyalgan 20 Hyalgan 20 2020-0 No 20mg C ommon mg mg 12-11 Spirit 00:00: - [facility] Hyalgan 20 Hyalgan 20 2020-0 No 20mg C ommon mg mg 12-11 Spirit 00:00: - [facility] Hyalgan 20 Hyalgan 20 2020-0 No 20mg C ommon mg mg 12-11 Spirit 00:00: - [facility] Hyalgan 20 Hyalgan 20 2020-0 No 20mg C ommon mg mg 12-11 Spirit 00:00: - [facility] Hyalgan 20 Hyalgan 20 2020-0 No 20mg C ommon mg mg 12-11 Spirit 00:00: - [facility] Hyalgan 20 Hyalgan 20 2020-0 No 20mg C ommon mg mg 12-11 Spirit 00:00: - [facility] Hyalgan 20 Hyalgan 20 2020-0 No 20mg C ommon mg mg 12-11 Spirit 00:00: - [facility] Hyalgan 20 Hyalgan 20 2020-0 No 20mg C ommon mg mg 12-11 Spirit 00:00: - [facility] Hyalgan 20 Hyalgan 20 2020-0 No 20mg C ommon mg mg 12-11 Spirit 00:00: - [facility] Hyalgan 20 Hyalgan 20 2020-0 No 20mg C ommon mg mg 12-11 Spirit 00:00: - [facility] Hyalgan 20 Hyalgan 20 2020-0 No 20mg C ommon mg mg 12-11 Spirit 00:00: - [facility] Hyalgan 20 Hyalgan 20 2020-0 No 20mg C ommon mg mg 12-11 Spirit 00:00: - [facility] Hyalgan 20 Hyalgan 20 2020-0 No 20mg C ommon mg mg 12-11 Spirit 00:00: - [facility] Hyalgan 20 Hyalgan 20 2020-0 No 20mg C ommon mg mg 12-11 Spirit 00:00: - [facility] Hyalgan 20 Hyalgan 20 2020-0 No 20mg C ommon mg mg 12-06 Spirit 00:00: - [facility] Hyalgan 20 Hyalgan 20 2020-0 No 20mg C ommon mg mg 12-06 Spirit 00:00: - [facility] Hyalgan 20 Hyalgan 20 2020-0 No 20mg C ommon mg mg 12-06 Spirit 00:00: - [facility] Hyalgan 20 Hyalgan 20 2020-0 No 20mg C ommon mg mg 12-06 Spirit 00:00: - [facility] Hyalgan 20 Hyalgan 20 2020-0 No 20mg C ommon mg mg 12-06 Spirit 00:00: - [facility] Hyalgan 20 Hyalgan 20 2020-0 No 20mg C ommon mg mg 12-06 Spirit 00:00: - [facility] Hyalgan 20 Hyalgan 20 2020-0 No 20mg C ommon mg mg 12-06 Spirit 00:00: - [facility] Hyalgan 20 Hyalgan 20 2020-0 No 20mg C ommon mg mg 12-06 Spirit 00:00: - [facility] Hyalgan 20 Hyalgan 20 2020-0 No 20mg C ommon mg mg 12-06 Spirit 00:00: - [facility] Hyalgan 20 Hyalgan 20 2020-0 No 20mg C ommon mg mg 12-06 Spirit 00:00: - [facility] Hyalgan 20 Hyalgan 20 2020-0 No 20mg C ommon mg mg 12-06 Spirit 00:00: - [facility] Hyalgan 20 Hyalgan 20 2020-0 No 20mg C ommon mg mg 12-06 [facility] 00:00: - [facility] Hyalgan 20 Hyalgan 20 2020-0 No 20mg C ommon mg mg 12-06 [facility] 00:00: - [facility] Hyalgan 20 Hyalgan 20 2020-0 No 20mg C ommon mg mg 12-06 [facility] 00:00: - [facility] Hyalgan 20 Hyalgan 20 2020-0 No 20mg C ommon mg mg 12-06 Spirit 00:00: - [facility] Hyalgan 20 Hyalgan 20 2020-0 No 20mg C ommon mg mg 12-06 [facility] 00:00: - [facility] Hyalgan 20 Hyalgan 20 2020-0 No 20mg C ommon mg mg 12-06 [facility] 00:00: - [facility] Hyalgan 20 Hyalgan 20 2020-0 No 20mg C ommon mg mg 12-06 Spirit 00:00: - [facility] Hyalgan 20 Hyalgan 20 2020-0 No 20mg C ommon mg mg 12-06 [facility] 00:00: - [facility] Hyalgan 20 Hyalgan 20 2020-0 No 20mg C ommon mg mg 12-06 [facility] 00:00: - [facility] Hyalgan 20 Hyalgan 20 2020-0 No 20mg C ommon mg mg 12-06 [facility] 00:00: - [facility] Hyalgan 20 Hyalgan 20 2020-0 No 20mg C ommon mg mg 12-06 [facility] 00:00: - [facility] Hyalgan 20 Hyalgan 20 2020-0 No 20mg C ommon mg mg 12-06 [facility] 00:00: - [facility] Hyalgan 20 Hyalgan 20 2020-0 No 20mg C ommon mg mg 12-06 [facility] 00:00: - [facility] Hyalgan 20 Hyalgan 20 2020-0 No 20mg C ommon mg mg 12-06 [facility] 00:00: - [facility] Hyalgan 20 Hyalgan 20 2020-0 No 20mg C ommon mg mg 12-06 [facility] 00:00: - [facility] Hyalgan 20 Hyalgan 20 2020-0 No 20mg C ommon mg mg 12-06 [facility] 00:00: - [facility] Hyalgan 20 Hyalgan 20 2020-0 No 20mg C ommon mg mg 12-06 [facility] 00:00: - [facility] Hyalgan 20 Hyalgan 20 2020-0 No 20mg C ommon mg mg 12-06 [facility] 00:00: - [facility] Hyalgan 20 Hyalgan 20 2020-0 No 20mg C ommon mg mg 12-06 [facility] 00:00: - [facility] Hyalgan 20 Hyalgan 20 2020-0 No 20mg C ommon mg mg 12-06 [facility] 00:00: - [facility] Hyalgan 20 Hyalgan 20 2020-0 No 20mg C ommon mg mg 12-06 [facility] 00:00: - [facility] Hyalgan 20 Hyalgan 20 2020-0 No 20mg C ommon mg mg 12-06 [facility] 00:00: - [facility] Hyalgan 20 Hyalgan 20 2020-0 No 20mg C [facility] mg mg 12-06 [facility] 00:00: - [facility] Hyalgan 20 Hyalgan 20 2020-0 No 20mg C [facility] mg mg 12-06 [facility] 00:00: - [facility] Hyalgan 20 Hyalgan 20 2020-0 No 20mg C ommon mg mg 12-06 [facility] 00:00: - [facility] Hyalgan 20 Hyalgan 20 2020-0 No 20mg C [facility] mg mg 12-06 [facility] 00:00: - [facility] Hyalgan 20 Hyalgan 20 2020-0 No 20mg C ommon mg mg 12-06 [facility] 00:00: - [facility] Hyalgan 20 Hyalgan 20 2020-0 No 20mg C ommon mg mg 12-06 [facility] 00:00: - [facility] Hyalgan 20 Hyalgan 20 2020-0 No 20mg C om[facility] mg mg 12-06 [facility] 00:00: - [facility] Hyalgan 20 Hyalgan 20 2020-0 No 20mg C ommon mg mg 12-06 [facility] 00:00: - [facility] Hyalgan 20 Hyalgan 20 2020-0 No 20mg C ommon mg mg 12-06 [facility] 00:00: - [facility] Hyalgan 20 Hyalgan 20 2020-0 No 20mg C ommon mg mg 12-06 [facility] 00:00: - [facility] Hyalgan 20 Hyalgan 20 2020-0 No 20mg C ommon mg mg 12-06 [facility] 00:00: - [facility] Hyalgan 20 Hyalgan 20 2020-0 No 20mg C ommon mg mg 12-06 [facility] 00:00: - [facility] Hyalgan 20 Hyalgan 20 2020-0 No 20mg C ommon mg mg 12-06 [facility] 00:00: - [facility] Hyalgan 20 Hyalgan 20 2020-0 No 20mg C ommon mg mg 12-06 [facility] 00:00: - [facility] Hyalgan 20 Hyalgan 20 2020-0 No 20mg C ommon mg mg 12-06 [facility] 00:00: - [facility] Hyalgan 20 Hyalgan 20 2020-0 No 20mg C ommon mg mg 12-06 [facility] 00:00: - [facility] Hyalgan 20 Hyalgan 20 2020-0 No 20mg C ommon mg mg 12-06 [facility] 00:00: - [facility] Hyalgan 20 Hyalgan 20 2020-0 No 20mg C ommon mg mg 12-06 [facility] 00:00: - [facility] Hyalgan 20 Hyalgan 20 2020-0 No 20mg C ommon mg mg 12-06 [facility] 00:00: - [facility] Hyalgan 20 Hyalgan 20 2020-0 No 20mg C ommon mg mg 12-06 [facility] 00:00: - [facility] Hyalgan 20 Hyalgan 20 2020-0 No 20mg C ommon mg mg 12-06 [facility] 00:00: - [facility] Hyalgan 20 Hyalgan 20 2020-0 No 20mg C ommon mg mg 12-06 [facility] 00:00: - [facility] Hyalgan 20 Hyalgan 20 2020-0 No 20mg C ommon mg mg 12-06 [facility] 00:00: - [facility] Hyalgan 20 Hyalgan 20 2020-0 No 20mg C ommon mg mg 12-06 [facility] 00:00: - [facility] Hyalgan 20 Hyalgan 20 2020-0 No 20mg C ommon mg mg 12-06 [facility] 00:00: - [facility] Hyalgan 20 Hyalgan 20 2020-0 No 20mg C ommon mg mg 12-06 [facility] 00:00: - [facility] Hyalgan 20 Hyalgan 20 2020-0 No 20mg C ommon mg mg 12-06 [facility] 00:00: - [facility] Hyalgan 20 Hyalgan 20 2020-0 No 20mg C ommon mg mg 12-06 [facility] 00:00: - [facility] Hyalgan 20 Hyalgan 20 2020-0 No 20mg C ommon mg mg 12-06 [facility] 00:00: - [facility] Hyalgan 20 Hyalgan 20 2020-0 No 20mg C ommon mg mg 12-06 [facility] 00:00: - [facility] Hyalgan 20 Hyalgan 20 2020-0 No 20mg C ommon mg mg 12-06 [facility] 00:00: - [facility] Hyalgan 20 Hyalgan 20 2020-0 No 20mg C ommon mg mg 12-06 [facility] 00:00: - [facility] Hyalgan 20 Hyalgan 20 2020-0 No 20mg C ommon mg mg 12-06 [facility] 00:00: - [facility] Hyalgan 20 Hyalgan 20 2020-0 No 20mg C ommon mg mg 12-06 [facility] 00:00: - [facility] Hyalgan 20 Hyalgan 20 2020-0 No 20mg C ommon mg mg 12-06 [facility] 00:00: - [facility] Hyalgan 20 Hyalgan 20 2020-0 No 20mg C ommon mg mg 12-06 [facility] 00:00: - [facility] Hyalgan 20 Hyalgan 20 2020-0 No 20mg C ommon mg mg 12-06 [facility] 00:00: - [facility] Hyalgan 20 Hyalgan 20 2020-0 No 20mg C ommon mg mg 12-06 [facility] 00:00: - [facility] Hyalgan 20 Hyalgan 20 2020-0 No 20mg C ommon mg mg 12-06 [facility] 00:00: - [facility] Hyalgan 20 Hyalgan 20 2020-0 No 20mg C ommon mg mg 12-06 [facility] 00:00: - [facility] Hyalgan 20 Hyalgan 20 2020-0 No 20mg C ommon mg mg 12-06 [facility] 00:00: - [facility] Hyalgan 20 Hyalgan 20 2020-0 No 20mg C ommon mg mg 12-06 [facility] 00:00: - [facility] Hyalgan 20 Hyalgan 20 2020-0 No 20mg C ommon mg mg 12-06 [facility] 00:00: - [facility] Hyalgan 20 Hyalgan 20 2020-0 No 20mg C ommon mg mg 12-06 [facility] 00:00: - [facility] Hyalgan 20 Hyalgan 20 2020-0 No 20mg C ommon mg mg 12-06 [facility] 00:00: - [facility] Hyalgan 20 Hyalgan 20 2020-0 No 20mg C ommon mg mg 12-06 [facility] 00:00: - [facility] Hyalgan 20 Hyalgan 20 2020-0 No 20mg C ommon mg mg 12-06 [facility] 00:00: - [facility] 00 [facility] Bupivicaine Bupivicaine 2020-0 No 2.5mg Common [place] - [facility] 00:00: - [facility] 00 [facility] Kenalog Kenalog 2020-0 No 40mg Common (Triamcinol (Triamcinol 4-22 S pirit one) one) 00:00: - [facility] Bupivicaine Bupivicaine 2020-0 No 2.5mg Common [place] - [facility] 00:00: - [facility] Hyalgan 20 Hyalgan 20 2020-0 No 20mg C ommon mg mg 11-22 [facility] 00:00: - [facility] 00 [facility] Hyalgan 20 Hyalgan 20 2020-0 No 20mg C ommon mg mg 11-22 [facility] 00:00: - [facility] 00 [facility] Kenalog Kenalog 2020-0 No 40mg Common (Triamcinol (Triamcinol 4-22 S pirit one) one) 00:00: - [facility] 00 [facility] Bupivicaine Bupivicaine 2020-0 No 2.5mg Common [place] 4-22 [facility] 00:00: - [facility] 00 [facility] Kenalog Kenalog 2020-0 No 40mg Common (Triamcinol (Triamcinol 4-22 S pirit one) one) 00:00: - [facility] 00 [facility] Bupivicaine Bupivicaine 2020-0 No 2.5mg Common [place] 4-22 [facility] 00:00: - [facility] Hyalgan 20 Hyalgan 20 2020-0 No 20mg C ommon mg mg 11-22 [facility] 00:00: - [facility] 00 [facility] Hyalgan 20 Hyalgan 20 2020-0 No 20mg C ommon mg mg 4-22 [facility] 00:00: - [facility] 00 [facility] Kenalog Kenalog 2020-0 No 40mg Common (Triamcinol (Triamcinol 4-22 S pirit one) one) 00:00: - [facility] 00 [facility] Bupivicaine Bupivicaine 2020-0 No 2.5mg Common [place] 4-22 [facility] 00:00: - [facility] 00 [facility] Kenalog Kenalog 2020-0 No 40mg Common (Triamcinol (Triamcinol 4-22 S pirit one) one) 00:00: - [facility] 00 [facility] Bupivicaine Bupivicaine 2020-0 No 2.5mg Common [place] 4-22 [facility] 00:00: - [facility] 00 [facility] Hyalgan 20 Hyalgan 20 2020-0 No 20mg C ommon mg mg 4-22 [facility] 00:00: - [facility] 00 [facility] Hyalgan 20 Hyalgan 20 2020-0 No 20mg C ommon mg mg 4-22 [facility] 00:00: - [facility] 00 [facility] Kenalog Kenalog 2020-0 No 40mg Common (Triamcinol (Triamcinol 4-22 S pirit one) one) 00:00: - [facility] 00 [facility] Bupivicaine Bupivicaine 2020-0 No 2.5mg Common [place] 4-22 [facility] 00:00: - [facility] 00 [facility] Kenalog Kenalog 2020-0 No 40mg Common (Triamcinol (Triamcinol 4-22 S pirit one) one) 00:00: - [facility] 00 [facility] Bupivicaine Bupivicaine 2020-0 No 2.5mg Common [place] 4-22 [facility] 00:00: - [facility] 00 [facility] Hyalgan 20 Hyalgan 20 2020-0 No 20mg C ommon mg mg 4-22 [facility] 00:00: - [facility] 00 [facility] Hyalgan 20 Hyalgan 20 2020-0 No 20mg C ommon mg mg 4-22 [facility] 00:00: - [facility] 00 [facility] Kenalog Kenalog 2020-0 No 40mg Common (Triamcinol (Triamcinol 4-22 S pirit one) one) 00:00: - [facility] 00 [facility] Bupivicaine Bupivicaine 2020-0 No 2.5mg Common [place] 4-22 [facility] 00:00: - [facility] 00 [facility] Kenalog Kenalog 2020-0 No 40mg Common (Triamcinol (Triamcinol 4-22 S pirit one) one) 00:00: - [facility] 00 [facility] Bupivicaine Bupivicaine 2020-0 No 2.5mg Common [place] 4-22 [facility] 00:00: - [facility] 00 [facility] Hyalgan 20 Hyalgan 20 2020-0 No 20mg C ommon mg mg 4-22 [facility] 00:00: - [facility] 00 [facility] Hyalgan 20 Hyalgan 20 2020-0 No 20mg C ommon mg mg 4-22 [facility] 00:00: - [facility] 00 [facility] Kenalog Kenalog 2020-0 No 40mg Common (Triamcinol (Triamcinol 4-22 S pirit one) one) 00:00: - [facility] 00 [facility] Bupivicaine Bupivicaine 2020-0 No 2.5mg Common [place] 4-22 [facility] 00:00: - [facility] 00 [facility] Kenalog Kenalog 2020-0 No 40mg Common (Triamcinol (Triamcinol 4-22 S pirit one) one) 00:00: - [facility] 00 [facility] Bupivicaine Bupivicaine 2020-0 No 2.5mg Common [place] 4-22 [facility] 00:00: - [facility] 00 [facility] Hyalgan 20 Hyalgan 20 2020-0 No 20mg C ommon mg mg 4-22 [facility] 00:00: - [facility] 00 [facility] Hyalgan 20 Hyalgan 20 2020-0 No 20mg C ommon mg mg 4-22 [facility] 00:00: - [facility] 00 [facility] Kenalog Kenalog 2020-0 No 40mg Common (Triamcinol (Triamcinol 4-22 S pirit one) one) 00:00: - [facility] 00 [facility] Bupivicaine Bupivicaine 2020-0 No 2.5mg Common [place] 4-22 [facility] 00:00: - [facility] 00 [facility] Kenalog Kenalog 2020-0 No 40mg Common (Triamcinol (Triamcinol 4-22 S pirit one) one) 00:00: - [facility] 00 [facility] Bupivicaine Bupivicaine 2020-0 No 2.5mg Common [place] 4-22 [facility] 00:00: - [facility] 00 [facility] Hyalgan 20 Hyalgan 20 2020-0 No 20mg C ommon mg mg 4-22 [facility] 00:00: - [facility] 00 [facility] Hyalgan 20 Hyalgan 20 2020-0 No 20mg C ommon mg mg 4-22 [facility] 00:00: - [facility] 00 [facility] Kenalog Kenalog 2020-0 No 40mg Common (Triamcinol (Triamcinol 4-22 S pirit one) one) 00:00: - [facility] 00 [facility] Bupivicaine Bupivicaine 2020-0 No 2.5mg Common [place] 4-22 [facility] 00:00: - [facility] 00 [facility] Kenalog Kenalog 2020-0 No 40mg Common (Triamcinol (Triamcinol 4-22 S pirit one) one) 00:00: - [facility] 00 [facility] Bupivicaine Bupivicaine 2020-0 No 2.5mg Common [place] 4-22 [facility] 00:00: - [facility] 00 [facility] Hyalgan 20 Hyalgan 20 2020-0 No 20mg C ommon mg mg 4-22 [facility] 00:00: - [facility] 00 [facility] Hyalgan 20 Hyalgan 20 2020-0 No 20mg C ommon mg mg 4-22 [facility] 00:00: - [facility] 00 [facility] Kenalog Kenalog 2020-0 No 40mg Common (Triamcinol (Triamcinol 4-22 S pirit one) one) 00:00: - [facility] 00 [facility] Bupivicaine Bupivicaine 2020-0 No 2.5mg Common [place] 4-22 [facility] 00:00: - [facility] 00 [facility] Kenalog Kenalog 2020-0 No 40mg Common (Triamcinol (Triamcinol 4-22 S pirit one) one) 00:00: - [facility] 00 [facility] Bupivicaine Bupivicaine 2020-0 No 2.5mg Common [place] 4-22 [facility] 00:00: - [facility] 00 [facility] Hyalgan 20 Hyalgan 20 2020-0 No 20mg C ommon mg mg 4-22 [facility] 00:00: - [facility] 00 [facility] Hyalgan 20 Hyalgan 20 2020-0 No 20mg C ommon mg mg 4-22 [facility] 00:00: - [facility] 00 [facility] Kenalog Kenalog 2020-0 No 40mg Common (Triamcinol (Triamcinol 4-22 S pirit one) one) 00:00: - [facility] 00 [facility] Bupivicaine Bupivicaine 2020-0 No 2.5mg Common [place] 4-22 [facility] 00:00: - [facility] 00 [facility] Kenalog Kenalog 2020-0 No 40mg Common (Triamcinol (Triamcinol 4-22 S pirit one) one) 00:00: - [facility] 00 [facility] Bupivicaine Bupivicaine 2020-0 No 2.5mg Common [place] 4-22 [facility] 00:00: - [facility] 00 [facility] Hyalgan 20 Hyalgan 20 2020-0 No 20mg C ommon mg mg 4- [facility] 00:00: - [facility] 00 [facility] Hyalgan 20 Hyalgan 20 2020-0 No 20mg C ommon mg mg 4-22 [facility] 00:00: - [facility] 00 [facility] Kenalog Kenalog 2020-0 No 40mg Common (Triamcinol (Triamcinol 4-22 S pirit one) one) 00:00: - [facility] 00 [facility] Bupivicaine Bupivicaine 2020-0 No 2.5mg Common [place] 4-22 [facility] 00:00: - [facility] 00 [facility] Kenalog Kenalog 2020-0 No 40mg Common (Triamcinol (Triamcinol 4-22 S pirit one) one) 00:00: - [facility] 00 [facility] Bupivicaine Bupivicaine 2020-0 No 2.5mg Common [place] 4-22 [facility] 00:00: - [facility] 00 [facility] Hyalgan 20 Hyalgan 20 2020-0 No 20mg C ommon mg mg 4- [facility] 00:00: - [facility] 00 [facility] Hyalgan 20 Hyalgan 20 2020-0 No 20mg C ommon mg mg 4-22 [facility] 00:00: - [facility] 00 [facility] Kenalog Kenalog 2020-0 No 40mg Common (Triamcinol (Triamcinol 4-22 S pirit one) one) 00:00: - [facility] 00 [facility] Bupivicaine Bupivicaine 2020-0 No 2.5mg Common [place] 4-22 [facility] 00:00: - [facility] 00 [facility] Kenalog Kenalog 2020-0 No 40mg Common (Triamcinol (Triamcinol 4-22 S pirit one) one) 00:00: - [facility] 00 [facility] Bupivicaine Bupivicaine 2020-0 No 2.5mg Common [place] 4-22 [facility] 00:00: - [facility] 00 [facility] Bupivicaine Bupivicaine 2020-0 No 2.5mg Common [place] 4-22 [facility] 00:00: - [facility] 00 [facility] Kenalog Kenalog 2020-0 No 40mg Common (Triamcinol (Triamcinol 4-22 S pirit one) one) 00:00: - [facility] 00 [facility] Bupivicaine Bupivicaine 2020-0 No 2.5mg Common [place] 4-22 [facility] 00:00: - [facility] 00 [facility] Hyalgan 20 Hyalgan 20 2020-0 No 20mg C ommon mg mg 4- [facility] 00:00: - [facility] 00 [facility] Hyalgan 20 Hyalgan 20 2020-0 No 20mg C ommon mg mg 4-22 [facility] 00:00: - [facility] 00 [facility] Hyalgan 20 Hyalgan 20 2020-0 No 20mg C ommon mg mg 4-22 [facility] 00:00: - [facility] 00 [facility] Kenalog Kenalog 2020-0 No 40mg Common (Triamcinol (Triamcinol 4-22 S pirit one) one) 00:00: - [facility] 00 [facility] Hyalgan 20 Hyalgan 20 2020-0 No 20mg C ommon mg mg 4-22 [facility] 00:00: - [facility] 00 [facility] Bupivicaine Bupivicaine 2020-0 No 2.5mg Common [place] 4-22 [facility] 00:00: - [facility] 00 [facility] Kenalog Kenalog 2020-0 No 40mg Common (Triamcinol (Triamcinol 4-22 S pirit one) one) 00:00: - [facility] 00 [facility] Bupivicaine Bupivicaine 2020-0 No 2.5mg Common [place] 4-22 [facility] 00:00: - [facility] 00 [facility] Hyalgan 20 Hyalgan 20 2020-0 No 20mg C ommon mg mg 4-22 [facility] 00:00: - [facility] 00 [facility] Kenalog Kenalog 2020-0 No 40mg Common (Triamcinol (Triamcinol 4-22 S pirit one) one) 00:00: - [facility] 00 [facility] Hyalgan 20 Hyalgan 20 2020-0 No 20mg C ommon mg mg 4-22 [facility] 00:00: - [facility] 00 [facility] Bupivicaine Bupivicaine 2020-0 No 2.5mg Common [place] 4-22 [facility] 00:00: - [facility] 00 [facility] Kenalog Kenalog 2020-0 No 40mg Common (Triamcinol (Triamcinol 4-22 S pirit one) one) 00:00: - [facility] 00 [facility] Kenalog Kenalog 2020-0 No 40mg Common (Triamcinol (Triamcinol 4-22 S pirit one) one) 00:00: - [facility] 00 [facility] Bupivicaine Bupivicaine 2020-0 No 2.5mg Common [place] 4-22 [facility] 00:00: - [facility] 00 [facility] Hyalgan 20 Hyalgan 20 2020-0 No 20mg C ommon mg mg 4-22 [facility] 00:00: - [facility] 00 [facility] Kenalog Kenalog 2020-0 No 40mg Common (Triamcinol (Triamcinol 4-22 S pirit one) one) 00:00: - [facility] 00 [facility] Hyalgan 20 Hyalgan 20 2020-0 No 20mg C ommon mg mg 4-22 [facility] 00:00: - [facility] 00 [facility] Bupivicaine Bupivicaine 2020-0 No 2.5mg Common [place] 4-22 [facility] 00:00: - [facility] 00 [facility] Kenalog Kenalog 2020-0 No 40mg Common (Triamcinol (Triamcinol 4-22 S pirit one) one) 00:00: - [facility] 00 [facility] Bupivicaine Bupivicaine 2020-0 No 2.5mg Common [place] 4-22 [facility] 00:00: - [facility] 00 [facility] Hyalgan 20 Hyalgan 20 2020-0 No 20mg C ommon mg mg 4-22 [facility] 00:00: - [facility] 00 [facility] Kenalog Kenalog 2020-0 No 40mg Common (Triamcinol (Triamcinol 4-22 S pirit one) one) 00:00: - [facility] 00 [facility] Hyalgan 20 Hyalgan 20 2020-0 No 20mg C ommon mg mg 4-22 [facility] 00:00: - [facility] 00 [facility] Bupivicaine Bupivicaine 2020-0 No 2.5mg Common [place] 4-22 [facility] 00:00: - [facility] 00 [facility] Kenalog Kenalog 2020-0 No 40mg Common (Triamcinol (Triamcinol 4-22 S pirit one) one) 00:00: - [facility] 00 [facility] Bupivicaine Bupivicaine 2020-0 No 2.5mg Common [place] 4-22 [facility] 00:00: - [facility] 00 [facility] Hyalgan 20 Hyalgan 20 2020-0 No 20mg C ommon mg mg 4-22 [facility] 00:00: - [facility] 00 [facility] Kenalog Kenalog 2020-0 No 40mg Common (Triamcinol (Triamcinol 4-22 S pirit one) one) 00:00: - [facility] 00 [facility] Hyalgan 20 Hyalgan 20 2020-0 No 20mg C ommon mg mg 4-22 [facility] 00:00: - [facility] 00 [facility] Bupivicaine Bupivicaine 2020-0 No 2.5mg Common [place] 4-22 [facility] 00:00: - [facility] 00 [facility] Kenalog Kenalog 2020-0 No 40mg Common (Triamcinol (Triamcinol 4-22 S pirit one) one) 00:00: - [facility] 00 [facility] Bupivicaine Bupivicaine 2020-0 No 2.5mg Common [place] 4-22 [facility] 00:00: - [facility] 00 [facility] Hyalgan 20 Hyalgan 20 2020-0 No 20mg C ommon mg mg 4-22 [facility] 00:00: - [facility] 00 [facility] Kenalog Kenalog 2020-0 No 40mg Common (Triamcinol (Triamcinol 4-22 S pirit one) one) 00:00: - [facility] 00 [facility] Hyalgan 20 Hyalgan 20 2020-0 No 20mg C ommon mg mg 4-22 [facility] 00:00: - [facility] 00 [facility] Bupivicaine Bupivicaine 2020-0 No 2.5mg Common [place] 4-22 [facility] 00:00: - [facility] 00 [facility] Kenalog Kenalog 2020-0 No 40mg Common (Triamcinol (Triamcinol 4-22 S pirit one) one) 00:00: - [facility] 00 [facility] Bupivicaine Bupivicaine 2020-0 No 2.5mg Common [place] 4-22 [facility] 00:00: - [facility] 00 [facility] Hyalgan 20 Hyalgan 20 2020-0 No 20mg C ommon mg mg 4-22 [facility] 00:00: - [facility] 00 [facility] Kenalog Kenalog 2020-0 No 40mg Common (Triamcinol (Triamcinol 4-22 S pirit one) one) 00:00: - [facility] 00 [facility] Hyalgan 20 Hyalgan 20 2020-0 No 20mg C ommon mg mg 4-22 [facility] 00:00: - [facility] 00 [facility] Bupivicaine Bupivicaine 2020-0 No 2.5mg Common [place] 4-22 [facility] 00:00: - [facility] 00 [facility] Kenalog Kenalog 2020-0 No 40mg Common (Triamcinol (Triamcinol 4-22 S pirit one) one) 00:00: - [facility] 00 [facility] Bupivicaine Bupivicaine 2020-0 No 2.5mg Common [place] 4-22 [facility] 00:00: - [facility] 00 [facility] Hyalgan 20 Hyalgan 20 2020-0 No 20mg C ommon mg mg 4-22 [facility] 00:00: - [facility] 00 [facility] Kenalog Kenalog 2020-0 No 40mg Common (Triamcinol (Triamcinol 4-22 S pirit one) one) 00:00: - [facility] 00 [facility] Hyalgan 20 Hyalgan 20 2020-0 No 20mg C ommon mg mg 4-22 [facility] 00:00: - [facility] 00 [facility] Bupivicaine Bupivicaine 2020-0 No 2.5mg Common [place] 4-22 [facility] 00:00: - [facility] 00 [facility] Kenalog Kenalog 2020-0 No 40mg Common (Triamcinol (Triamcinol 4-22 S pirit one) one) 00:00: - [facility] 00 [facility] Bupivicaine Bupivicaine 2020-0 No 2.5mg Common [place] 4-22 [facility] 00:00: - [facility] 00 [facility] Bupivicaine Bupivicaine 2020-0 No 2.5mg Common [place] 4-22 [facility] 00:00: - [facility] 00 [facility] Hyalgan 20 Hyalgan 20 2020-0 No 20mg C ommon mg mg 4-22 [facility] 00:00: - [facility] 00 [facility] Kenalog Kenalog 2020-0 No 40mg Common (Triamcinol (Triamcinol 4-22 S pirit one) one) 00:00: - [facility] 00 [facility] Hyalgan 20 Hyalgan 20 2020-0 No 20mg C ommon mg mg 4-22 [facility] 00:00: - [facility] 00 [facility] Kenalog Kenalog 2020-0 No 40mg Common (Triamcinol (Triamcinol 4-22 S pirit one) one) 00:00: - [facility] 00 [facility] Bupivicaine Bupivicaine 2020-0 No 2.5mg Common [place] 4-22 [facility] 00:00: - [facility] 00 [facility] Bupivicaine Bupivicaine 2020-0 No 2.5mg Common [place] 4-22 [facility] 00:00: - [facility] 00 [facility] Hyalgan 20 Hyalgan 20 2020-0 No 20mg C ommon mg mg 4-22 [facility] 00:00: - [facility] 00 [facility] Kenalog Kenalog 2020-0 No 40mg Common (Triamcinol (Triamcinol 4-22 S pirit one) one) 00:00: - [facility] 00 [facility] Hyalgan 20 Hyalgan 20 2020-0 No 20mg C ommon mg mg 4- Spirit 00:00: - [facility] 00 [facility] Bupivicaine Bupivicaine 2020-0 No 2.5mg Common [place] 4-22 [facility] 00:00: - [facility] 00 [facility] Hyalgan 20 Hyalgan 20 2020-0 No 20mg C ommon mg mg 4- [facility] 00:00: - [facility] 00 [facility] Kenalog Kenalog 2020-0 No 40mg Common (Triamcinol (Triamcinol 4-22 S pirit one) one) 00:00: - [facility] 00 [facility] Hyalgan 20 Hyalgan 20 2020-0 No 20mg C ommon mg mg 4- Spirit 00:00: - [facility] 00 [facility] Kenalog Kenalog 2020-0 No 40mg Common (Triamcinol (Triamcinol 4-22 S pirit one) one) 00:00: - [facility] 00 [facility] Hyalgan 20 Hyalgan 20 2020-0 No 20mg C ommon mg mg 4-22 [facility] 00:00: - [facility] 00 [facility] Bupivicaine Bupivicaine 2020-0 No 2.5mg Common [place] 4-22 [facility] 00:00: - [facility] 00 [facility] Bupivicaine Bupivicaine 2020-0 No 2.5mg Common [place] 4-22 [facility] 00:00: - [facility] 00 [facility] Hyalgan 20 Hyalgan 20 2020-0 No 20mg C ommon mg mg 4-22 [facility] 00:00: - [facility] 00 [facility] Dagoberto Kenalog 2020-0 No 40mg Common (Triamcinol (Triamcinol 4-22 S pirit one) one) 00:00: - [facility] 00 [facility] Dagoberto Kenalog 2020-0 No 40mg Common (Triamcinol (Triamcinol 4-22 S pirit one) one) 00:00: - [facility] 00 [facility] Hyalgan 20 Hyalgan 20 2020-0 No 20mg C ommon mg mg 4-22 [facility] 00:00: - [facility] 00 [facility] Bupivicaine Bupivicaine 2020-0 No 2.5mg Common [place] 4-22 [facility] 00:00: - [facility] 00 [facility] Bupivicaine Bupivicaine 2020-0 No 2.5mg Common [place] 4-22 [facility] 00:00: - [facility] Dagoberto Pylealog 2020-0 No 40mg Common (Triamcinol (Triamcinol 4-22 S pirit one) one) 00:00: - [facility] 00 [facility] Hyalgan 20 Hyalgan 20 2020-0 No 20mg C ommon mg mg 4-22 [facility] 00:00: - [facility] 00 [facility] Dagoberto Kenalog 2020-0 No 40mg Common (Triamcinol (Triamcinol 4-22 S pirit one) one) 00:00: - [facility] Dagoberto Kenalog 2020-0 No 40mg Common (Triamcinol (Triamcinol 4-22 S pirit one) one) 00:00: - [facility] 00 [facility] Hyalgan 20 Hyalgan 20 2020-0 No 20mg C ommon mg mg 4-22 [facility] 00:00: - [facility] 00 [facility] Bupivicaine Bupivicaine 2020-0 No 2.5mg Common [place] 4-22 [facility] 00:00: - [facility] 00 [facility] Bupivicaine Bupivicaine 2020-0 No 2.5mg Common [place] 4-22 [facility] 00:00: - [facility] 00 [facility] Hyalgan 20 Hyalgan 20 2020-0 No 20mg C ommon mg mg 4-22 [facility] 00:00: - [facility] 00 [facility] Kenalog Kenalog 2020-0 No 40mg Common (Triamcinol (Triamcinol 4-22 S pirit one) one) 00:00: - [facility] 00 [facility] Bupivicaine Bupivicaine 2020-0 No 2.5mg Common [place] 4-22 [facility] 00:00: - [facility] 00 [facility] Kenalog Kenalog 2020-0 No 40mg Common (Triamcinol (Triamcinol 4-22 S pirit one) one) 00:00: - [facility] 00 [facility] Bupivicaine Bupivicaine 2020-0 No 2.5mg Common [place] 4-22 [facility] 00:00: - [facility] 00 [facility] Hyalgan 20 Hyalgan 20 2020-0 No 20mg C ommon mg mg 4-22 Spirit 00:00: - [facility]I 00 [facility] Hyalgan 20 Hyalgan 20 2020-0 No 20mg C ommon mg mg 4-22 Spirit 00:00: - [facility]I 00 [facility] Kenalog Kenalog 2020-0 No 40mg Common (Triamcinol (Triamcinol 4-22 S pirit one) one) 00:00: - [facility]I 00 [facility] Bupivicaine Bupivicaine 2020-0 No 2.5mg Common [place] 4-22 [facility] 00:00: - [facility]I 00 [facility] Kenalog Kenalog 2020-0 No 40mg Common (Triamcinol (Triamcinol 4-22 S pirit one) one) 00:00: - CHI 00 [facility] Bupivicaine Bupivicaine 2020-0 No 2.5mg Common [place] 4-22 Spirit 00:00: - [facility]I 00 [facility] Hyalgan 20 Hyalgan 20 2020-0 No 20mg C ommon mg mg 4-22 Spirit 00:00: - [facility]I 00 [facility] Hyalgan 20 Hyalgan 20 2020-0 No 20mg C ommon mg mg 4-22 Spirit 00:00: - [facility]I 00 [facility] Kenalog Kenalog 2020-0 No 40mg Common (Triamcinol (Triamcinol 4-22 S pirit one) one) 00:00: - CHI 00 [facility] Kenalog Kenalog 2020-0 No 40mg Common (Triamcinol (Triamcinol 4-22 S pirit one) one) 00:00: - CHI 00 [facility] Hyalgan 20 Hyalgan 20 2020-0 No 20mg C ommon mg mg 4-22 Spirit 00:00: - [facility]I 00 [facility] Bupivicaine Bupivicaine 2020-0 No Common [place] 4-22 Spirit 00:00: - [facility]I 00 [facility] Bupivicaine Bupivicaine 2020-0 No Common [place] 4-22 Spirit 00:00: - [facility]I 00 [facility] Kenalog Kenalog 2020-0 No 40mg Common (Triamcinol (Triamcinol 4-22 S pirit one) one) 00:00: - CHI 00 [facility] Hyalgan 20 Hyalgan 20 2020-0 No 20mg C ommon mg mg 4-22 Spirit 00:00: - [facility]I 00 [facility] Kenalog Kenalog 2020-0 No 40mg Common (Triamcinol (Triamcinol 4-22 S pirit one) one) 00:00: - CHI 00 [facility] Hyalgan 20 Hyalgan 20 2020-0 No 20mg C ommon mg mg 4-22 Spirit 00:00: - [facility]I 00 [facility] Bupivicaine Bupivicaine 2020-0 No Common [place] 4-22 [facility] 00:00: - [facility]I 00 [facility] Bupivicaine Bupivicaine 2020-0 No Common [place] 4-22 [facility] 00:00: - [facility]I 00 [facility] Kenalog Kenalog 2020-0 No 40mg Common (Triamcinol (Triamcinol 4-22 S pirit one) one) 00:00: - CHI 00 [facility] Hyalgan 20 Hyalgan 20 2020-0 No 20mg C ommon mg mg 4-22 Spirit 00:00: - [facility]I 00 [facility] Kenalog Kenalog 2020-0 No 40mg Common (Triamcinol (Triamcinol 4-22 S pirit one) one) 00:00: - CHI 00 [facility] Hyalgan 20 Hyalgan 20 2020-0 No 20mg C ommon mg mg 4-22 Spirit 00:00: - [facility]I 00 [facility] Bupivicaine Bupivicaine 2020-0 No Common [place] 4-22 [facility] 00:00: - [facility]I 00 [facility] Bupivicaine Bupivicaine 2020-0 No Common [place] 4-22 Spirit 00:00: - [facility]I 00 [facility] Kenalog Kenalog 2020-0 No 40mg Common (Triamcinol (Triamcinol 4-22 S pirit one) one) 00:00: - CHI 00 [facility] Hyalgan 20 Hyalgan 20 2020-0 No 20mg C ommon mg mg 4-22 Spirit 00:00: - [facility]I 00 [facility] Kenalog Kenalog 2020-0 No 40mg Common (Triamcinol (Triamcinol 4-22 S pirit one) one) 00:00: - CHI 00 [facility] Hyalgan 20 Hyalgan 20 2020-0 No 20mg C ommon mg mg 4-22 Spirit 00:00: - [facility]I 00 [facility] Bupivicaine Bupivicaine 2020-0 No Common [place] 4-22 Spirit 00:00: - [facility]I 00 [facility] Bupivicaine Bupivicaine 2020-0 No Common [place] 4-22 [facility] 00:00: - [facility]I 00 [facility] Kenalog Kenalog 2020-0 No 40mg Common (Triamcinol (Triamcinol 4-22 S pirit one) one) 00:00: - CHI 00 [facility] Hyalgan 20 Hyalgan 20 2020-0 No 20mg C ommon mg mg 4-22 Spirit 00:00: - [facility]I 00 [facility] Kenalog Kenalog 2020-0 No 40mg Common (Triamcinol (Triamcinol 4-22 S pirit one) one) 00:00: - CHI 00 [facility] Hyalgan 20 Hyalgan 20 2020-0 No 20mg C ommon mg mg 4-22 Spirit 00:00: - CHI 00 [facility] Bupivicaine Bupivicaine 2020-0 No 2.5mg Common [place] 4-22 [facility] 00:00: - [facility]I 00 [facility] Bupivicaine Bupivicaine 2020-0 No 2.5mg Common [place] 4-22 [facility] 00:00: - [facility]I 00 [facility] Kenalog Kenalog 2020-0 No 40mg Common (Triamcinol (Triamcinol 4-22 S pirit one) one) 00:00: - CHI 00 [facility] Hyalgan 20 Hyalgan 20 2020-0 No 20mg C ommon mg mg 4-22 Spirit 00:00: - CHI 00 [facility] Kenalog Kenalog 2020-0 No 40mg Common (Triamcinol (Triamcinol 4-22 S pirit one) one) 00:00: - CHI 00 [facility] Hyalgan 20 Hyalgan 20 2020-0 No 20mg C ommon mg mg 4-22 Spirit 00:00: - CHI 00 [facility] Bupivicaine Bupivicaine 2020-0 No 2.5mg Common [place] 4-22 [facility] 00:00: - [facility]I 00 [facility] Bupivicaine Bupivicaine 2020-0 No 2.5mg Common [place] 4-22 [facility] 00:00: - [facility]I 00 [facility] Kenalog Kenalog 2020-0 No 40mg Common (Triamcinol (Triamcinol 4-22 S pirit one) one) 00:00: - CHI 00 [facility] Hyalgan 20 Hyalgan 20 2020-0 No 20mg C ommon mg mg 4-22 Spirit 00:00: - CHI 00 [facility] Kenalog Kenalog 2020-0 No 40mg Common (Triamcinol (Triamcinol 4-22 S pirit one) one) 00:00: - CHI 00 [facility] Hyalgan 20 Hyalgan 20 2020-0 No 20mg C ommon mg mg 4-22 Spirit 00:00: - CHI 00 [facility] Bupivicaine Bupivicaine 2020-0 No 2.5mg Common [place] 4-22 [facility] 00:00: - [facility]I 00 [facility] Bupivicaine Bupivicaine 2020-0 No 2.5mg Common [place] 4-22 [facility] 00:00: - [facility]I 00 [facility] Kenalog Kenalog 2020-0 No 40mg Common (Triamcinol (Triamcinol 4-22 S pirit one) one) 00:00: - CHI 00 [facility] Hyalgan 20 Hyalgan 20 2020-0 No 20mg C ommon mg mg 4-22 Spirit 00:00: - CHI 00 [facility] Kenalog Kenalog 0 No 40mg Common (Triamcinol (Triamcinol 4-22 S pirit one) one) 00:00: - CHI 00 [facility] Hyalgan 20 Hyalgan 20 2020-0 No 20mg C ommon mg mg 4-22 Spirit 00:00: - CHI 00 [facility] Bupivicaine Bupivicaine 2020-0 No 2.5mg Common [place] 4-22 [facility] 00:00: - [facility]I 00 [facility] Bupivicaine Bupivicaine 2020-0 No 2.5mg Common [place] 4-22 [facility] 00:00: - [facility]I 00 [facility] Kenalog Kenalog 0 No 40mg Common (Triamcinol (Triamcinol 4-22 S pirit one) one) 00:00: - CHI 00 [facility] Hyalgan 20 Hyalgan 20 2020-0 No 20mg C ommon mg mg 4- Spirit 00:00: - CHI 00 [facility] Kenalog Kenalog 0 No 40mg Common (Triamcinol (Triamcinol 4-22 S pirit one) one) 00:00: - CHI 00 [facility] Hyalgan 20 Hyalgan 20 2020-0 No 20mg C ommon mg mg 4-22 Spirit 00:00: - CHI 00 [facility] Bupivicaine Bupivicaine 2020-0 No 2.5mg Common [place] 4-22 [facility] 00:00: - [facility]I 00 [facility] Bupivicaine Bupivicaine 2020-0 No 2.5mg Common [place] 4-22 [facility] 00:00: - [facility]I 00 [facility] Kenalog Kenalog 0 No 40mg Common (Triamcinol (Triamcinol 4-22 S pirit one) one) 00:00: - CHI 00 [facility] Hyalgan 20 Hyalgan 20 2020-0 No 20mg C ommon mg mg 4-22 Spirit 00:00: - CHI 00 [facility] Kenalog Kenalog 2020-0 No 40mg Common (Triamcinol (Triamcinol 4-22 S pirit one) one) 00:00: - CHI 00 [facility] Hyalgan 20 Hyalgan 20 2020-0 No 20mg C ommon mg mg 4-22 Spirit 00:00: - CHI 00 [facility] Hyalgan 20 Hyalgan 20 2020-0 No 20mg C ommon mg mg 4-22 Spirit 00:00: - [facility]I 00 [facility] Bupivicaine Bupivicaine 2020-0 No 2.5mg Common [place] 4-22 [facility] 00:00: - [facility]I 00 [facility] Bupivicaine Bupivicaine 2020-0 No 2.5mg Common [place] 4-22 [facility] 00:00: - [facility]I 00 [facility] Kenalog Kenalog 2020-0 No 40mg Common (Triamcinol (Triamcinol 4-22 S pirit one) one) 00:00: - CHI 00 [facility] Kenalog Kenalog 2020-0 No 40mg Common (Triamcinol (Triamcinol 4-22 S pirit one) one) 00:00: - CHI 00 [facility] Hyalgan 20 Hyalgan 20 2020-0 No 20mg C ommon mg mg 4- Spirit 00:00: - [facility]I 00 [facility] Hyalgan 20 Hyalgan 20 2020-0 No 20mg C ommon mg mg 4-22 Spirit 00:00: - CHI 00 [facility] Bupivicaine Bupivicaine 2020-0 No 2.5mg Common [place] 4-22 [facility] 00:00: - CHI 00 [facility] Bupivicaine Bupivicaine 2020-0 No 2.5mg Common [place] 4-22 [facility] 00:00: - [facility]I 00 [facility] Kenalog Kenalog 2020-0 No 40mg Common (Triamcinol (Triamcinol 4-22 S pirit one) one) 00:00: - CHI 00 [facility] Bupivicaine Bupivicaine 2020-0 No 2.5mg Common [place] 4-22 [facility] 00:00: - [facility]I 00 [facility] Kenalog Kenalog 2020-0 No 40mg Common (Triamcinol (Triamcinol 4-22 S pirit one) one) 00:00: - CHI 00 [facility] Bupivicaine Bupivicaine 0 No 2.5mg Common [place] 4-22 [facility] 00:00: - CHI 00 [facility] Hyalgan 20 Hyalgan 20 2020-0 No 20mg C ommon mg mg 4-22 Spirit 00:00: - [facility]I 00 [facility] Hyalgan 20 Hyalgan 20 2020-0 No 20mg C ommon mg mg 4-22 Spirit 00:00: - CHI 00 [facility] Kenalog Kenalog 0 No 40mg Common (Triamcinol (Triamcinol 4-22 S pirit one) one) 00:00: - CHI 00 [facility] Bupivicaine Bupivicaine 2020-1 No 2.5mg Common [place] 2-31 Spirit 00:00: - CHI 00 [facility] Kenalog Kenalog 2019- No 40mg Common (Triamcinol (Triamcinol 2-31 S pirit one) one) 00:00: - CHI 00 [facility] Bupivicaine Bupivicaine 2020-1 No 2.5mg Common [place] 2-31 Spirit 00:00: - CHI 00 [facility] Kenalog Kenalog 2020-1 No 40mg Common (Triamcinol (Triamcinol 2-31 S pirit one) one) 00:00: - CHI 00 [facility] Bupivicaine Bupivicaine 2020-1 No 2.5mg Common [place] 2-31 [facility] 00:00: - [facility]I 00 [facility] Kenalog Kenalog 2020-1 No 40mg Common (Triamcinol (Triamcinol 2-31 S pirit one) one) 00:00: - CHI 00 [facility] Bupivicaine Bupivicaine 2020-1 No 2.5mg Common [place] 2-31 [facility] 00:00: - CHI 00 [facility] Kenalog Kenalog 2020- No 40mg Common (Triamcinol (Triamcinol 2-31 S pirit one) one) 00:00: - CHI 00 [facility] Bupivicaine Bupivicaine 2020-1 No 2.5mg Common [place] 2-31 [facility] 00:00: - CHI 00 [facility] Kenalog Kenalog 2019- No 40mg Common (Triamcinol (Triamcinol 2-31 S pirit one) one) 00:00: - CHI 00 [facility] Bupivicaine Bupivicaine 2019- No 2.5mg Common [place] 2-31 [facility] 00:00: - CHI 00 [facility] Kenalog Kenalog 2019- No 40mg Common (Triamcinol (Triamcinol 2-31 S pirit one) one) 00:00: - CHI 00 [facility] Bupivicaine Bupivicaine 2019- No 2.5mg Common [place] 2-31 [facility] 00:00: - CHI 00 [facility] Kenalog Kenalog 2019- No 40mg Common (Triamcinol (Triamcinol 2-31 S pirit one) one) 00:00: - CHI 00 [facility] Bupivicaine Bupivicaine 2020-1 No 2.5mg Common [place] 2-31 [facility] 00:00: - CHI 00 [facility] Kenalog Kenalog 2019- No 40mg Common (Triamcinol (Triamcinol 2-31 S pirit one) one) 00:00: - CHI 00 [facility] Bupivicaine Bupivicaine 2020-1 No 2.5mg Common [place] 2-31 [facility] 00:00: - CHI 00 [facility] Kenalog Kenalog 2019- No 40mg Common (Triamcinol (Triamcinol 2-31 S pirit one) one) 00:00: - CHI 00 [facility] Bupivicaine Bupivicaine 2020-1 No 2.5mg Common [place] 2-31 [facility] 00:00: - CHI 00 [facility] Kenalog Kenalog 2020- No 40mg Common (Triamcinol (Triamcinol 2-31 S pirit one) one) 00:00: - CHI 00 [facility] Bupivicaine Bupivicaine 2020-1 No 2.5mg Common [place] 2-31 [facility] 00:00: - CHI 00 [facility] Kenalog Kenalog 2019- No 40mg Common (Triamcinol (Triamcinol 2-31 S pirit one) one) 00:00: - CHI 00 [facility] Bupivicaine Bupivicaine 2019- No 2.5mg Common [place] 2-31 [facility] 00:00: - CHI 00 [facility] Kenalog Kenalog 2019- No 40mg Common (Triamcinol (Triamcinol 2-31 S pirit one) one) 00:00: - CHI 00 [facility] Bupivicaine Bupivicaine 2019- No 2.5mg Common [place] 2-31 [facility] 00:00: - CHI 00 [facility] Kenalog Kenalog 2019- No 40mg Common (Triamcinol (Triamcinol 2-31 S pirit one) one) 00:00: - CHI 00 [facility] Bupivicaine Bupivicaine 2019- No 2.5mg Common [place] 2-31 [facility] 00:00: - CHI 00 [facility] Kenalog Kenalog 2019- No 40mg Common (Triamcinol (Triamcinol 2-31 S pirit one) one) 00:00: - CHI 00 [facility] Bupivicaine Bupivicaine 2019- No 2.5mg Common [place] 2-31 [facility] 00:00: - CHI 00 [facility] Kenalog Kenalog 2019- No 40mg Common (Triamcinol (Triamcinol 2-31 S pirit one) one) 00:00: - CHI 00 [facility] Bupivicaine Bupivicaine 2020- No 2.5mg Common [place] 2-31 [facility] 00:00: - CHI 00 [facility] Kenalog Kenalog 2019- No 40mg Common (Triamcinol (Triamcinol 2-31 S pirit one) one) 00:00: - CHI 00 [facility] Bupivicaine Bupivicaine 2020- No 2.5mg Common [place] 2-31 [facility] 00:00: - CHI 00 [facility] Kenalog Kenalog 2019- No 40mg Common (Triamcinol (Triamcinol 2-31 S pirit one) one) 00:00: - CHI 00 [facility] Bupivicaine Bupivicaine 2020-1 No 2.5mg Common [place] 2-31 [facility] 00:00: - CHI 00 [facility] Kenalog Kenalog 2019- No 40mg Common (Triamcinol (Triamcinol 2-31 S pirit one) one) 00:00: - CHI 00 [facility] Bupivicaine Bupivicaine 2020- No 2.5mg Common [place] 2-31 [facility] 00:00: - CHI 00 [facility] Kenalog Kenalog 2019- No 40mg Common (Triamcinol (Triamcinol 2-31 S pirit one) one) 00:00: - CHI 00 [facility] Kenalog Kenalog 2019- No 40mg Common (Triamcinol (Triamcinol 2-31 S pirit one) one) 00:00: - CHI 00 [facility] Bupivicaine Bupivicaine 2020-1 No 2.5mg Common [place] 2-31 [facility] 00:00: - CHI 00 [facility] Kenalog Kenalog 2019- No 40mg Common (Triamcinol (Triamcinol 2-31 S pirit one) one) 00:00: - CHI 00 [facility] Bupivicaine Bupivicaine 2020-1 No 2.5mg Common [place] 2-31 [facility] 00:00: - CHI 00 [facility] Kenalog Kenalog 2019- No 40mg Common (Triamcinol (Triamcinol 2-31 S pirit one) one) 00:00: - CHI 00 [facility] Bupivicaine Bupivicaine 2020-1 No 2.5mg Common [place] 2-31 [facility] 00:00: - CHI 00 [facility] Bupivicaine Bupivicaine 2020-1 No 2.5mg Common [place] 2-31 [facility] 00:00: - CHI 00 [facility] Kenalog Kenalog 2020- No 40mg Common (Triamcinol (Triamcinol 2-31 S pirit one) one) 00:00: - CHI 00 [facility] Bupivicaine Bupivicaine 2020-1 No 2.5mg Common [place] 2-31 [facility] 00:00: - CHI 00 [facility] Kenalog Kenalog 2020- No 40mg Common (Triamcinol (Triamcinol 2-31 S pirit one) one) 00:00: - CHI 00 [facility] Bupivicaine Bupivicaine 2020-1 No 2.5mg Common [place] 2-31 [facility] 00:00: - CHI 00 [facility] Kenalog Kenalog 2019- No 40mg Common (Triamcinol (Triamcinol 2-31 S pirit one) one) 00:00: - CHI 00 [facility] Bupivicaine Bupivicaine 2020-1 No 2.5mg Common [place] 2-31 [facility] 00:00: - CHI 00 [facility] Kenalog Kenalog 2019- No 40mg Common (Triamcinol (Triamcinol 2-31 S pirit one) one) 00:00: - CHI 00 [facility] Bupivicaine Bupivicaine 2020-1 No 2.5mg Common [place] 2-31 [facility] 00:00: - CHI 00 [facility] Kenalog Kenalog 2020- No 40mg Common (Triamcinol (Triamcinol 2-31 S pirit one) one) 00:00: - CHI 00 [facility] Bupivicaine Bupivicaine 2020-1 No 2.5mg Common [place] 2-31 [facility] 00:00: - CHI 00 [facility] Kenalog Kenalog 2020- No 40mg Common (Triamcinol (Triamcinol 2-31 S pirit one) one) 00:00: - CHI 00 [facility] Kenalog Kenalog 2020- No 40mg Common (Triamcinol (Triamcinol 2-31 S pirit one) one) 00:00: - CHI 00 [facility] Bupivicaine Bupivicaine 2020-1 No Common [place] 2-31 [facility] 00:00: - CHI 00 [facility] Kenalog Kenalog 2020- No 40mg Common (Triamcinol (Triamcinol 2-31 S pirit one) one) 00:00: - CHI 00 [facility] Bupivicaine Bupivicaine 2020-1 No Common [place] 2-31 [facility] 00:00: - CHI 00 [facility] Kenalog Kenalog 2019- No 40mg Common (Triamcinol (Triamcinol 2-31 S pirit one) one) 00:00: - CHI 00 [facility] Bupivicaine Bupivicaine 2020-1 No Common [place] 2-31 [facility] 00:00: - CHI 00 [facility] Kenalog Kenalog 2020- No 40mg Common (Triamcinol (Triamcinol 2-31 S pirit one) one) 00:00: - CHI 00 [facility] Bupivicaine Bupivicaine 2020- No Common [place] 2-31 [facility] 00:00: - CHI 00 [facility] Kenalog Kenalog 2019- No 40mg Common (Triamcinol (Triamcinol 2-31 S pirit one) one) 00:00: - CHI 00 [facility] Bupivicaine Bupivicaine 2020-1 No 2.5mg Common [place] 2-31 [facility] 00:00: - [facility]I 00 [facility] Kenalog Kenalog 2020- No 40mg Common (Triamcinol (Triamcinol 2-31 S pirit one) one) 00:00: - CHI 00 [facility] Bupivicaine Bupivicaine 2020-1 No 2.5mg Common [place] 2-31 [facility] 00:00: - CHI 00 [facility] Kenalog Kenalog 2020- No 40mg Common (Triamcinol (Triamcinol 2-31 S pirit one) one) 00:00: - CHI 00 [facility] Bupivicaine Bupivicaine 2020-1 No 2.5mg Common [place] 2-31 [facility] 00:00: - [facility]I 00 [facility] Kenalog Kenalog 2020- No 40mg Common (Triamcinol (Triamcinol 2-31 S pirit one) one) 00:00: - CHI 00 [facility] Bupivicaine Bupivicaine 2020-1 No 2.5mg Common [place] 2-31 [facility] 00:00: - [facility]I 00 [facility] Kenalog Kenalog 2020-1 No 40mg Common (Triamcinol (Triamcinol 2-31 S pirit one) one) 00:00: - CHI [facility] Bupivicaine Bupivicaine 2020-1 No 2.5mg Common [place] 2-31 [facility] 00:00: - CHI [facility] Kenalog Kenalog 2020-1 No 40mg Common (Triamcinol (Triamcinol 2-31 S pirit one) one) 00:00: - [facility] Bupivicaine Bupivicaine 2020-1 No 2.5mg Common [place] 2-31 [facility] 00:00: - CHI [facility] Bupivicaine Bupivicaine 2020-1 No 2.5mg Common [place] 2-31 [facility] 00:00: - [facility] Kenalog Kenalog 2020- No 40mg Common (Triamcinol (Triamcinol 2-31 S pirit one) one) 00:00: - [facility] Bupivicaine Bupivicaine 2020-1 No 2.5mg Common [place] 2-31 [facility] 00:00: - CHI [facility] Kenalog Kenalog 2020- No 40mg Common (Triamcinol (Triamcinol 2-31 S pirit one) one) 00:00: - [facility] Amlodipine Amlodipine 2020-0 Yes Jun 1 tablet Common Besylate Besylate 6-25 [facility] 00:00: evening - [facility] Citalopram Citalopram 2020-0 Yes Jun 1 tablet Common Hydrobromid Hydrobromid 6-23 [facility] e e 00:00: [facility] Restoril Restoril 2020-0 Yes Jun 1 capsule Common 6-23 [facility] bedtime [facility] 00:00: as needed - [facility] Vitamin Vitamin 2020-0 Yes Jun 2 tablet C ommon D-1000 Max D-1000 Max 5-[address] 00:00: - [facility] Vitamin Vitamin 2020-0 No 2{table [...] pirit one) one) 00:00: - CHI 00 [facility] Kenalog Kenalog 2020-0 No 40mg Common (Triamcinol (Triamcinol 3-12 S pirit one) one) 00:00: - CHI 00 [facility] Kenalog Kenalog 2020-0 No 40mg Common (Triamcinol (Triamcinol 3-12 S pirit one) one) 00:00: - CHI 00 [facility] Kenalog Kenalog 2020-0 No 40mg Common (Triamcinol (Triamcinol 3-12 S pirit one) one) 00:00: - CHI 00 [facility] Kenalog Kenalog 2020-0 No 40mg Common (Triamcinol (Triamcinol 3-12 S pirit one) one) 00:00: - CHI 00 [facility] Kenalog Kenalog 2020-0 No 40mg Common (Triamcinol (Triamcinol 3-12 S pirit one) one) 00:00: - CHI 00 [facility] Kenalog Kenalog 2020-0 No 40mg Common (Triamcinol (Triamcinol 3-12 S pirit one) one) 00:00: - CHI 00 [facility] Kenalog Kenalog 2020-0 No 40mg Common (Triamcinol (Triamcinol 3-12 S pirit one) one) 00:00: - CHI 00 [facility] Kenalog Kenalog 2020-0 No 40mg Common (Triamcinol (Triamcinol 3-12 S pirit one) one) 00:00: - CHI 00 [facility] Kenalog Kenalog 2020-0 No 40mg Common (Triamcinol (Triamcinol 3-12 S pirit one) one) 00:00: - CHI 00 [facility] Kenalog Kenalog 2020-0 No 40mg Common (Triamcinol (Triamcinol 3-12 S pirit one) one) 00:00: - CHI 00 [facility] Kenalog Kenalog 2020-0 No 40mg Common (Triamcinol (Triamcinol 3-12 S pirit one) one) 00:00: - CHI 00 [facility] Kenalog Kenalog 2020-0 No 40mg Common (Triamcinol (Triamcinol 3-12 S pirit one) one) 00:00: - CHI 00 [facility] Kenalog Kenalog 2020-0 No 40mg Common (Triamcinol (Triamcinol 3-12 S pirit one) one) 00:00: - CHI 00 [facility] Kenalog Kenalog 2020-0 No 40mg Common (Triamcinol (Triamcinol 3-12 S pirit one) one) 00:00: - CHI 00 [facility] Kenalog Kenalog 2020-0 No 40mg Common (Triamcinol (Triamcinol 3-12 S pirit one) one) 00:00: - CHI 00 [facility] Kenalog Kenalog 2020-0 No 40mg Common (Triamcinol (Triamcinol 3-12 S pirit one) one) 00:00: - CHI 00 [facility] Kenalog Kenalog 2020-0 No 40mg Common (Triamcinol (Triamcinol 3-12 S pirit one) one) 00:00: - CHI 00 [facility] Kenalog Kenalog 2020-0 No 40mg Common (Triamcinol (Triamcinol 3-12 S pirit one) one) 00:00: - CHI 00 [facility] Kenalog Kenalog 2020-0 No 40mg Common (Triamcinol (Triamcinol 3-12 S pirit one) one) 00:00: - CHI 00 [facility] Kenalog Kenalog 2020-0 No 40mg Common (Triamcinol (Triamcinol 3-12 S pirit one) one) 00:00: - [facility] 00 [facility] Kenalog Kenalog 2020-0 No 40mg [facility] (Triamcinol (Triamcinol 3-12 S pirit one) one) 00:00: - [facility] 00 [facility] Kenalog Kenalog 2020-0 No 40mg [facility] (Triamcinol (Triamcinol 3-12 S pirit one) one) 00:00: - [facility] 00 [facility] Kenalog Kenalog 2020-0 No 40mg [facility] (Triamcinol (Triamcinol 3-12 S pirit one) one) 00:00: - [facility] 00 [facility] Kenalog Kenalog 2020-0 No 40mg [facility] (Triamcinol (Triamcinol 3-12 S pirit one) one) 00:00: - [facility] 00 [facility] Kenalog Kenalog 2020-0 No 40mg [facility] (Triamcinol (Triamcinol 3-12 S pirit one) one) 00:00: - [facility] 00 [facility] Kenalog Kenalog 2020-0 No 40mg [facility] (Triamcinol (Triamcinol 3-12 S pirit one) one) 00:00: - [facility] 00 [facility] Kenalog Kenalog 2020-0 No 40mg [facility] (Triamcinol (Triamcinol 3-12 S pirit one) one) 00:00: - [facility] 00 [facility] Kenalog Kenalog 2020-0 No 40mg [facility] (Triamcinol (Triamcinol 3-12 S pirit one) one) 00:00: - [facility] 00 [facility] Kenalog Kenalog 2020-0 No 40mg [facility] (Triamcinol (Triamcinol 3-12 S pirit one) one) 00:00: - [facility] 00 [facility] Kenalog Kenalog 2020-0 No 40mg [facility] (Triamcinol (Triamcinol 3-12 S pirit one) one) 00:00: - [facility] 00 [facility] Kenalog Kenalog 2020-0 No 40mg [facility] (Triamcinol (Triamcinol 3-12 S pirit one) one) 00:00: - [facility] 00 [facility] Kenalog Kenalog 2020-0 No 40mg [facility] (Triamcinol (Triamcinol 3-12 S pirit one) one) 00:00: - [facility] 00 [facility] Kenalog Kenalog 2020-0 No 40mg [facility] (Triamcinol (Triamcinol 3-12 S pirit one) one) 00:00: - [facility] 00 [facility] Kenalog Kenalog 2020-0 No 40mg [facility] (Triamcinol (Triamcinol 3-12 S pirit one) one) 00:00: - [facility] 00 [facility] Kenalog Kenalog 2020-0 No 40mg [facility] (Triamcinol (Triamcinol 3-12 S pirit one) one) 00:00: - [facility] 00 [facility] Kenalog Kenalog 2020-0 No 40mg [facility] (Triamcinol (Triamcinol 3-12 S pirit one) one) 00:00: - [facility] 00 [facility] Kenalog Kenalog 2020-0 No 40mg [facility] (Triamcinol (Triamcinol 3-12 S pirit one) one) 00:00: - [facility] 00 [facility] Kenalog Kenalog 2020-0 No 40mg [facility] (Triamcinol (Triamcinol 3-12 S pirit one) one) 00:00: - [facility] 00 [facility] Kenalog Kenalog 2020-0 No 40mg [facility] (Triamcinol (Triamcinol 3-12 S pirit one) one) 00:00: - [facility] 00 [facility] Aspirin 325 2018-0 No Notes: (Do Memoria MG Enteric 9-14 Not Crush) l Coated 14:00: Do not [place] Tablet 00 crush or chew. Aspirin 325 2018-0 No Notes: (Do Memoria MG Enteric 9-14 Not Crush) l Coated 14:00: Do not [place] Tablet 00 crush or chew. Aspirin 325 No Notes: (Do Memoria MG Enteric 9-14 Not Crush) l Coated 14:00: Do not [place] Tablet 00 crush or chew. Saline No Notes: Memoria Flush 0.9% 9-14 (Same as: l 02:00: BD [place] 00 Posiflush) Saline No Notes: Memoria Flush 0.9% 9-14 (Same as: l 02:00: BD [place] 00 Posiflush) Saline No Notes: Memoria Flush 0.9% 9-14 (Same as: l 02:00: BD [place] 00 Posiflush) NIFEdipine Yes 90 mg = [...] oria 9-13 IV push l 20:05: reconstitu [place] 00 te with 10 ml 0.9% sodium chloride and push over 2 minutes. (Same as: Protonix) Protonix No Notes: For Mem oria 9-13 IV push l 20:05: reconstitu Johnson 00 te with 10 ml 0.9% sodium chloride and push over 2 minutes. (Same as: Protonix) Protonix No Notes: For Mem oria 9-13 IV push l 20:05: reconstitu [place] 00 te with 10 ml 0.9% sodium [...] BD Posiflush) Ondansetron No Notes: Abdiel princess - (Same as: l 18:45: Zofran) Acetaminoph No Notes: Do M emoria en 04-15 not exceed l 18:45: 4 gm/day. (Same as: Tylenol) Acetaminoph No Notes: Abdiel princess en 325 MG / 04-15 (Same as: l Hydrocodone 18:45: [employer] Kamini nn Bitartrate 00 325/5) Do 5 MG Oral not exceed Tablet 4gm/day of acetaminop hen. Morphine No Notes: Memoria 04-15 (Same l 18:45: as:MORPhin Johnson 00 e Sulfate) metoprolol No Notes: Memor ia tartrate 04-15 (Same as: l 18:45: Lopressor) Johnson 00 Nitroglycer No Notes: Abdiel princess in 04-15 (Same l 18:45: as:Nitroqu Johnson 00 ick, Nitrostat) "Do Not Crush" Sublingual tablet Lisinopril No Notes: Memor ia 04-15 (Same as: l 18:45: Prinivil, [place] Zestril) Hydralazine No Notes: Abdiel princess 04-15 (Same as: l 18:45: Apresoline ) Push over 5 minutes Saline No Notes: Memoria Flush 0.9% 04-15 (Same as: l 18:45: BD [place] 00 Posiflush) Ondansetron No Notes: Abdiel princess 04-15 (Same as: l 18:45: Zofran) Acetaminoph No Notes: Do M emoria en 04-15 not exceed l 18:45: 4 gm/day. Johnson 00 (Same as: Tylenol) Acetaminoph No Notes: Abdiel princess en 325 MG / 04-15 (Same as: l Hydrocodone 18:45: [employer] Kamini nn Bitartrate 00 325/5) Do 5 MG Oral not exceed Tablet 4gm/day of acetaminop hen. Morphine No Notes: Memoria 04-15 (Same l 18:45: as:MORPhin Johnson 00 e Sulfate) metoprolol No Notes: Memor ia tartrate 04-15 (Same as: l 18:45: Lopressor) Johnson 00 Nitroglycer No Notes: Abdiel princess in 04-15 (Same l 18:45: as:Nitroqu Johnson 00 ick, Nitrostat) "Do Not Crush" Sublingual tablet Lisinopril No Notes: Memor ia 04-15 (Same as: l 18:45: Prinivil, [place] 00 Zestril) Hydralazine No Notes: Abdiel princess [...] / 04-15 (Same as: l Hydrocodone 18:45: [employer] Kamini nn Bitartrate 00 325/5) Do 5 [...] Memoria 04-15 Route: l 18:32: IVP, ONCE, [place] 00 Dosing Weight 82, kg, Priority: STAT, [...] ia 04-15 Route: l 17:31: IVP, Drug [place] 00 form: INJ, ONCE, Dosing Weight 82, kg, Priority: STAT, Start date: 04/15/18 12:31:00 CDT, Stop date: 04/15/18 12:31:00 CDT Morphine 2018-0 No 4 mg, Memoria 04-15 Route: l 17:31: IVP, ONCE, Johnson Dosing Weight 82, kg, Priority: STAT, Start date: 04/15/18 12:31:00 CDT, Stop date: 04/15/18 12:31:00 CDT Ondansetron 2018-0 No 4 mg, Memor ia 9-13 Route: l 17:31: IVP, Drug form: INJ, ONCE, Dosing Weight 82, kg, Priority: STAT, Start date: 04/15/18 12:31:00 CDT, Stop date: 04/15/18 12:31:00 CDT Morphine 2018-0 No 4 mg, Memoria 9-13 Route: l 17:31: IVP, ONCE, [place] 00 Dosing Weight 82, kg, Priority: STAT, [...] 04/15/18 12:31:00 CDT Aspirin No Notes: Memoria 9-13 Take with l 15:28: food. Aspirin No Notes: Memoria 9-13 Take with l 15:28: food. Aspirin No Notes: Memoria 9-13 Take with l 15:28: food. Saline No Notes: Memoria Flush 0.9% 9-13 (Same as: l 14:54: BD [place] Posiflush) Saline No Notes: Memoria Flush 0.9% 9-13 (Same as: l 14:54: BD [place] Posiflush) Saline No Notes: Memoria Flush 0.9% 9-13 (Same as: l 14:54: BD [place] 00 Posiflush) Protonix No Notes: Memoria 5-15 Tablet l 12:30: should not [place] 00 be chewed or crushed. (Same as: Protonix) Protonix 2018-0 No Notes: Memoria 5-15 Tablet l 12:30: should not [place] 00 be chewed or crushed. (Same as: Protonix) Protonix 2018-0 No Notes: Memoria 5-15 Tablet l 12:30: should not [place] 00 be chewed or crushed. (Same as: Protonix) Ibuprofen 2018-0 No 600 mg, 1 Mem oria 5-14 tab, l 20:47: Route: PO, Johnson 00 Drug form: TAB, Q6H, Dosing Weight 81.818, kg, PRN Pain Score 1-3, Start date: 12/14/17 15:47:00 CDT, Duration: 30 day, Stop date: 01/13/18 15:46:00 CDT Ibuprofen 2018-0 No 600 mg, 1 Mem oria 5-14 tab, l 20:47: Route: PO, [place] 00 Drug form: TAB, Q6H, Dosing Weight 81.818, kg, PRN Pain Score 1-3, Start date: 12/14/17 15:47:00 CDT, Duration: 30 day, Stop date: 01/13/18 15:46:00 CDT Ibuprofen 2018-0 No 600 mg, 1 Mem oria 5-14 tab, l 20:47: Route: PO, [place] 00 Drug form: TAB, Q6H, Dosing Weight 81.818, kg, PRN Pain Score 1-3, Start date: 12/14/17 15:47:00 CDT, Duration: 30 day, Stop date: 01/13/18 15:46:00 CDT Morphine 2018-0 No 4 mg, Memoria 5-14 Route: l 12:50: IVP, ONCE, [place] 00 Dosing Weight 81.818, kg, Priority: STAT, Start date: 12/14/17 7:50:00 CDT, Stop date: 12/14/17 7:50:00 CDT Morphine 2018-0 No 4 mg, Memoria 5-14 Route: l 12:50: IVP, ONCE, [place] 00 Dosing Weight 81.818, kg, Priority: STAT, Start [...] Memoria in 5-14 mL, Rate: l 12:29: Titrate Start Dose: 10 microgram/ min, Titration: 10 [...] ia 5-14 Route: l 12:07: IVP, ONCE, [place] 00 kg, Priority: STAT, Start date: 12/14/17 7:07:00 CDT, Stop date: 12/14/17 7:07:00 CDT Saline 2018-0 No Notes: Memoria Flush 0.9% 5-14 Same as: l 12:07: BD [place] 00 Posiflush Sterile Morphine 2018-0 No 4 mg, Memoria 5-14 Route: l 12:07: IVP, ONCE, [place] 00 kg, Priority: STAT, Start date: 12/14/17 7:07:00 CDT, Stop date: 12/14/17 7:07:00 CDT Ondansetron 2018-0 No 4 mg, Memor ia 5-14 Route: l 12:07: IVP, ONCE, [place] 00 kg, Priority: STAT, Start date: 12/14/17 7:07:00 CDT, Stop date: 12/14/17 7:07:00 CDT Saline 2018-0 No Notes: Memoria Flush 0.9% 5-14 Same as: l 12:07: BD [place] Posiflush Sterile Morphine 2018-0 No 4 mg, Memoria 5-14 Route: l 12:07: IVP, ONCE, [place] 00 kg, Priority: STAT, Start date: 12/14/17 7:07:00 CDT, Stop date: 12/14/17 7:07:00 CDT Ondansetron 2018-0 No 4 mg, Memor ia 5-14 Route: l 12:07: IVP, ONCE, [place] 00 kg, Priority: STAT, Start date: 12/14/17 7:07:00 CDT, Stop date: 12/14/17 7:07:00 CDT Saline 2018-0 No Notes: Memoria Flush 0.9% 5-14 Same as: l 12:07: BD [place] 00 Posiflush Sterile Symbicort Symbicort Yes Jun 2 puffs [facility] Promethazin Promethazin Yes Jun 10 ml as Common e HCl e HCl [facility] needed [facility] Losartan Losartan Yes Jun 1 tablet C ommon Potassium Potassium [facility] Gabapentin Gabapentin No 1{capsu BID Gabapentin 300 [...] Furosemide Zinc Zinc No Zinc Aspir-81 81 Aspir- 81 No 1{table QD [...] Furosemide Zinc Zinc No Zinc Aspir-81 81 Aspir- 81 No 1{table QD [...] Vitamin C Vitamin C No Vitamin C Aspir-81 81 Aspir-81 81 No 1{table QD [...] MG e_eveni 10 MG ng} -81 81 Aspir-81 81 No 1{table QD Aspir-81 [...] Besylate MG MG 10 MG Aspir-81 81 Aspir- 81 No [...] Date Status Commen ts Source Name Name Afluria Afluria 2021-05-02 [facility]00 [facility] Afluria Afluria 2021-05-02 Completed [facility] 09:55:00 [facility] Afluria Afluria 2021-05-02 Completed [facility] 09:55:00 [facility] Afluria Afluria 2021-05-02 Completed [facility] 09:55:00 [facility] Afluria Afluria 2021-05-02 Completed [facility] 09:55:00 [facility] Afluria Afluria 2021-05-02 Completed [facility] 09:55:00 [facility] Afluria Afluria 2021-05-02 Completed [facility] 09:55:00 [facility] Afluria Afluria 2021-05-02 [facility]pleted [facility] 09:[facility]:00 [facility] Afluria Afluria 2021-05-02 [facility]pleted [facility] 09:55:00 [facility] Afluria Afluria 2021-05-02 Completed [facility] 09:55:00 [facility] Afluria Afluria 2021-05-02 [facility]pleted [facility] 09:55:00 [facility] Afluria Afluria 2021-05-02 [facility]pleted [facility] 09:55:00 [facility] Afluria Afluria 2021-05-02 [facility]pleted [facility] 09:55:00 [facility] Afluria Afluria 2021-05-02 Completed [facility] 09:55:00 [facility] Afluria Afluria 2021-05-02 Completed [facility] - 09:55:00 [facility] Afluria Afluria 2021-05-02 Completed [facility] - 09:55:00 [facility] Afluria Afluria 2021-05-02 Completed [facility] 09:55:00 [facility] Afluria Afluria 2021-05-02 [facility]pleted [facility] - 09:55:00 [facility] Afluria Afluria 2021-05-02 [facility]pleted [facility] 09:55:00 [facility] Afluria Afluria 2021-05-02 Completed [facility] 09:55:00 [facility] Afluria Afluria 2021-05-02 Completed [facility] - 09:55:00 [facility] Afluria Afluria 2021-05-02 Completed [facility] 09:55:00 [facility] Afluria Afluria 2021-05-02 Completed [facility] 09:55:00 [facility] Afluria Afluria 2021-05-02 Completed [facility] 09:55:00 [facility] Afluria Afluria 2021-05-02 Completed [facility] 09:55:00 [facility] Afluria Afluria 2021-05-02 Completed [facility] 09:55:00 [facility] Afluria Afluria 2021-05-02 Completed [facility] 09:55:00 [facility] Afluria Afluria 2021-05-02 Completed [facility] - 09:55:00 [facility] Afluria Afluria 2021-05-02 Completed [facility] - 09:55:00 [facility] Afluria Afluria 2021-05-02 Completed [facility] - 09:55:00 [facility] Afluria Afluria 2021-05-02 Completed [facility] - 09:55:00 [facility] Afluria Afluria 2021-05-02 Completed [facility] - 09:55:00 [facility] Afluria Afluria 2021-05-02 Completed [facility] - 09:55:00 [facility] Afluria Afluria 2021-05-02 Completed [facility] - 09:55:00 [facility] Afluria Afluria 2021-05-02 Completed [facility] - 09:55:00 [facility] Afluria Afluria 2021-05-02 Completed [facility] - 09:55:00 [facility] Afluria Afluria 2021-05-02 Completed [facility] - 09:55:00 [facility] Afluria Afluria 2021-05-02 Completed [facility] - 09:55:00 [facility] Afluria Afluria 2021-05-02 Completed [facility] - 09:55:00 [facility] Afluria Afluria 2021-05-02 Completed [facility] - 09:55:00 [facility] Afluria Afluria 2021-05-02 Completed [facility] - 09:55:00 [facility] Afluria Afluria 2021-05-02 Completed [facility] 09:55:00 [facility] [id number] 2021-01-08 Completed Abdiel rial [id number] 00:00:00 Catrachita allen [id number] 2021-01-08 Completed Abdiel rial [id number] 00:00:00 Catrachita allen [id number] 2021-01-08 Completed Abdiel rial [id number] 00:00:00 Catrachita tiffany Hyalgan 20 mg Hyalgan 20 mg 2020-12-11 [facility]00 [facility] Hyalgan 20 mg Hyalgan 20 mg 2020-12-11 Completed [facility] 11:53:00 [facility] Hyalgan 20 mg Hyalgan 20 mg 2020-12-06 Completed [facility] - 09:13:00 [facility] Hyalgan 20 mg Hyalgan 20 mg 2020-12-06 [facility]pleted [facility] 09:12:00 [facility] Dagoberto Arenas 2020-11-22 Completed [facility] - (Triamcinolone) (Triamcinolone) 10:10:00 [facility] Bupivicaine [place] Bupivicaine [place] 2020-11-22 Completed [facility] - 10:09:00 [facility] Dagoberto Arenas 2020-11-22 Completed [facility] - (Triamcinolone) (Triamcinolone) 10:09:00 [facility] Bupivicaine [place] Bupivicaine [place] 2020-11-22 [facility]pleted [facility] - 10:08:00 [facility] Hyalgan 20 mg Hyalgan 20 mg 2020-11-22 Completed [facility] - 09:31:00 [facility] Hyalgan 20 mg Hyalgan 20 mg 2020-11-22 Completed [facility] - 09:30:00 [facility] Bupivicaine [place] Bupivicaine [place] 2020-08-02 [facility]pleted [facility] - 09:59:00 [facility] Dagoberto Arenas 2020-08-02 Completed [facility] - (Triamcinolone) (Triamcinolone) 09:59:00 [facility] Pneumovax (PPSV23) Pneumovax (PPSV23) 2020-06-20 Completed [facility] - 14:36:00 [facility] Pneumovax (PPSV23) Pneumovax (PPSV23) 2020-06-20 Completed [facility] - 14:36:00 [facility] Pneumovax (PPSV23) Pneumovax (PPSV23) 2020-06-20 Completed [facility] - 14:36:00 [facility] Pneumovax (PPSV23) Pneumovax (PPSV23) 2020-06-20 Completed [facility] - 14:36:00 [facility] Pneumovax (PPSV23) Pneumovax (PPSV23) 2020-06-20 Completed [facility] - 14:36:00 [facility] Pneumovax (PPSV23) Pneumovax (PPSV23) 2020-06-20 Completed [facility] - 14:36:00 [facility] Pneumovax (PPSV23) Pneumovax (PPSV23) 2020-06-20 Completed [facility] - 14:36:00 [facility] Pneumovax (PPSV23) Pneumovax (PPSV23) 2020-06-20 Completed [facility] - 14:36:00 [facility] Pneumovax (PPSV23) Pneumovax (PPSV23) 2020-06-20 Completed [facility] - 14:36:00 [facility] Pneumovax (PPSV23) Pneumovax (PPSV23) 2020-06-20 Completed [facility] - 14:36:00 [facility] Pneumovax (PPSV23) Pneumovax (PPSV23) 2020-06-20 Completed [facility] - 14:36:00 [facility] Pneumovax (PPSV23) Pneumovax (PPSV23) 2020-06-20 Completed [facility] - 14:36:00 [facility] Pneumovax (PPSV23) Pneumovax (PPSV23) 2020-06-20 Completed [facility] - 14:36:00 [facility] Pneumovax (PPSV23) Pneumovax (PPSV23) 2020-06-20 Completed [facility] - 14:36:00 [facility] Pneumovax (PPSV23) Pneumovax (PPSV23) 2020-06-20 Completed [facility] - 14:36:00 [facility] Pneumovax (PPSV23) Pneumovax (PPSV23) 2020-06-20 Completed [facility] - 14:36:00 [facility] Pneumovax (PPSV23) Pneumovax (PPSV23) 2020-06-20 Completed [facility] - 14:36:00 [facility] Pneumovax (PPSV23) Pneumovax (PPSV23) 2020-06-20 Completed [facility] - 14:36:00 [facility] Pneumovax (PPSV23) Pneumovax (PPSV23) 2020-06-20 Completed [facility] - 14:36:00 [facility] Pneumovax (PPSV23) Pneumovax (PPSV23) 2020-06-20 Completed [facility] - 14:36:00 [facility] Pneumovax (PPSV23) Pneumovax (PPSV23) 2020-06-20 Completed [facility] - 14:36:00 [facility] Pneumovax (PPSV23) Pneumovax (PPSV23) 2020-06-20 Completed [facility] - 14:36:00 [facility] Pneumovax (PPSV23) Pneumovax (PPSV23) 2020-06-20 Completed [facility] - 14:36:00 [facility] Pneumovax (PPSV23) Pneumovax (PPSV23) 2020-06-20 Completed [facility] - 14:36:00 [facility] Pneumovax (PPSV23) Pneumovax (PPSV23) 2020-06-20 Completed [facility] - 14:36:00 [facility] Pneumovax (PPSV23) Pneumovax (PPSV23) 2020-06-20 Completed [facility] - 14:36:00 [facility] Pneumovax (PPSV23) Pneumovax (PPSV23) 2020-06-20 Completed [facility] - 14:36:00 [facility] Pneumovax (PPSV23) Pneumovax (PPSV23) 2020-06-20 Completed [facility] - 14:36:00 [facility] Pneumovax (PPSV23) Pneumovax (PPSV23) 2020-06-20 Completed [facility] - 14:36:00 [facility] Pneumovax (PPSV23) Pneumovax (PPSV23) 2020-06-20 Completed [facility] - 14:36:00 [facility] Pneumovax (PPSV23) Pneumovax (PPSV23) 2020-06-20 Completed [facility] - 14:36:00 [facility] Pneumovax (PPSV23) Pneumovax (PPSV23) 2020-06-20 Completed [facility] - 14:36:00 [facility] Pneumovax (PPSV23) Pneumovax (PPSV23) 2020-06-20 Completed [facility] - 14:36:00 [facility] Pneumovax (PPSV23) Pneumovax (PPSV23) 2020-06-20 Completed [facility] - 14:36:00 [facility] Pneumovax (PPSV23) Pneumovax (PPSV23) 2020-06-20 Completed [facility] - 14:36:00 [facility] Pneumovax (PPSV23) Pneumovax (PPSV23) 2020-06-20 Completed [facility] - 14:36:00 [facility] Pneumovax (PPSV23) Pneumovax (PPSV23) 2020-06-20 Completed [facility] - 14:36:00 [facility] Pneumovax (PPSV23) Pneumovax (PPSV23) 2020-06-20 Completed [facility] - 14:36:00 [facility] Pneumovax (PPSV23) Pneumovax (PPSV23) 2020-06-20 Completed [facility] - 14:36:00 [facility] Pneumovax (PPSV23) Pneumovax (PPSV23) 2020-06-20 Completed [facility] - 14:36:00 [facility] Pneumovax (PPSV23) Pneumovax (PPSV23) 2020-06-20 Completed [facility] - 14:36:00 [facility] Pneumovax (PPSV23) Pneumovax (PPSV23) 2020-06-20 Completed [facility] - 14:36:00 [facility] Afluria single dose Afluria single dose 2020-06-20 Completed [facility] - 14:35:00 [facility] Afluria single dose Afluria single dose 2020-06-20 Completed [facility] - 14:35:00 [facility] Afluria single dose Afluria single dose 2020-06-20 Completed [facility] - 14:35:00 [facility] Afluria single dose Afluria single dose 2020-06-20 Completed [facility] - 14:35:00 [facility] Afluria single dose Afluria single dose 2020-06-20 Completed [facility] - 14:35:00 [facility] Afluria single dose Afluria single dose 2020-06-20 Completed [facility] - 14:35:00 [facility] Afluria single dose Afluria single dose 2020-06-20 Completed [facility] - 14:35:00 [facility] Afluria single dose Afluria single dose 2020-06-20 Completed [facility] - 14:35:00 [facility] Afluria single dose Afluria single dose 2020-06-20 Completed [facility] - 14:35:00 [facility] Afluria single dose Afluria single dose 2020-06-20 Completed [facility] - 14:35:00 [facility] Afluria single dose Afluria single dose 2020-06-20 Completed [facility] - 14:35:00 [facility] Afluria single dose Afluria single dose 2020-06-20 Completed [facility] - 14:35:00 [facility] Afluria single dose Afluria single dose 2020-06-20 Completed [facility] - 14:35:00 [facility] Afluria single dose Afluria single dose 2020-06-20 Completed [facility] - 14:35:00 [facility] Afluria single dose Afluria single dose 2020-06-20 Completed [facility] - 14:35:00 [facility] Afluria single dose Afluria single dose 2020-06-20 Completed [facility] - 14:35:00 [facility] Afluria single dose Afluria single dose 2020-06-20 Completed [facility] - 14:35:00 [facility] Afluria single dose Afluria single dose 2020-06-20 Completed [facility] - 14:35:00 [facility] Afluria single dose Afluria single dose 2020-06-20 Completed [facility] - 14:35:00 [facility] Afluria single dose Afluria single dose 2020-06-20 Completed [facility] - 14:35:00 [facility] Afluria single dose Afluria single dose 2020-06-20 Completed [facility] - 14:35:00 [facility] Afluria single dose Afluria single dose 2020-06-20 Completed [facility] - 14:35:00 [facility] Afluria single dose Afluria single dose 2020-06-20 Completed [facility] - 14:35:00 [facility] Afluria single dose Afluria single dose 2020-06-20 Completed [facility] - 14:35:00 [facility] Afluria single dose Afluria single dose 2020-06-20 Completed [facility] - 14:35:00 [facility] Afluria single dose Afluria single dose 2020-06-20 Completed [facility] - 14:35:00 [facility] Afluria single dose Afluria single dose 2020-06-20 Completed [facility] - 14:35:00 [facility] Afluria single dose Afluria single dose 2020-06-20 Completed [facility] - 14:35:00 [facility] Afluria single dose Afluria single dose 2020-06-20 Completed [facility] - 14:35:00 [facility] Afluria single dose Afluria single dose 2020-06-20 Completed [facility] - 14:35:00 [facility] Afluria single dose Afluria single dose 2020-06-20 Completed [facility] - 14:35:00 [facility] Afluria single dose Afluria single dose 2020-06-20 Completed [facility] - 14:35:00 [facility] Afluria single dose Afluria single dose 2020-06-20 Completed [facility] - 14:35:00 [facility] Afluria single dose Afluria single dose 2020-06-20 [facility] 14:[facility]00 [facility] Afluria single dose Afluria single dose 2020-06-20 Completed [facility] 14:[facility]:00 [facility] Afluria single dose Afluria single dose 2020-06-20 Completed [facility] 14:35:00 [facility] Afluria single dose Afluria single dose 2020-06-20 Completed [facility] 14:35:00 [facility] Afluria single dose Afluria single dose 2020-06-20 Completed [facility] 14:35:00 [facility] Afluria single dose Afluria single dose 2020-06-20 Completed [facility] 14:35:00 [facility] Afluria single dose Afluria single dose 2020-06-20 Completed [facility] 14:35:00 [facility] Afluria single dose Afluria single dose 2020-06-20 Completed [facility] 14:35:00 [facility] Afluria single dose Afluria single dose 2020-06-20 Completed [facility] 14:35:00 [facility] Kenalog Kenalog 2019-10-13 Completed [facility] - (Triamcinolone) (Triamcinolone) 15:10:00 [facility] Vital Signs Vital Name Observation Time Observation Value Comments Source height 2022-09-09 11:20:00 68.5 [in_i] [facility] weight 2022-09-09 11:20:00 196 [lb_av] Common [facility] 2022-09-09 11:20:00 29.37 kg/m2 [facility] blood pressure 2022-09-09 11:20:00 135 mm[Hg] [facility] - systolic [facility] blood pressure 2022-09-09 11:20:00 72 mm[Hg] [facility] - diastolic [facility] height 2022-08-19 08:15:00 68.5 [in_i] [facility] weight 2022-08-19 08:15:00 195 [lb_av] [facility] temperature 2022-08-19 08:15:00 97.7 [degF] [facility] bmi 2022-08-19 08:15:00 29.22 kg/m2 [facility] blood pressure 2022-08-19 08:15:00 138 mm[Hg] [facility] - systolic [facility] blood pressure 2022-08-19 08:15:00 86 mm[Hg] [facility] - diastolic [facility] height 2022-07-10 11:00:00 68.5 [in_i] [facility] weight 2022-07-10 11:00:00 200 [lb_av] [facility] temperature 2022-07-10 11:00:00 97.2 [degF] [facility] bmi 2022-07-10 11:00:00 29.96 kg/m2 [facility] blood pressure 2022-07-10 11:00:00 136 mm[Hg] [facility] - systolic [facility] blood pressure 2022-07-10 11:00:00 84 mm[Hg] [facility] - diastolic [facility] height 2022-05-28 09:20:00 68.5 [in_i] [facility] weight 2022-05-28 09:20:00 200.0 [lb_av] [facility] temperature 2022-05-28 09:20:00 97.6 [degF] [facility] bmi 2022-05-28 09:20:00 29.96 kg/m2 [facility] oximetry 2022-05-28 09:20:00 95 % [facility] respiratory rate 2022-05-28 09:20:00 16 /min Comm on [facility] blood pressure 2022-05-28 09:20:00 138 mm[Hg] [facility] blood pressure 2022-05-28 09:20:00 78 mm[Hg] [facility] - [facility] height 2022-05-27 08:45:00 68.5 [in_i] [facility] weight 2022-05-27 08:45:00 211 [lb_av] [facility] temperature 2022-05-27 08:45:00 97.1 [degF] [facility] bmi 2022-05-27 08:45:00 31.61 kg/m2 [facility] blood pressure 2022-05-27 08:45:00 140 mm[Hg] [facility] - systolic [facility] blood pressure 2022-05-27 08:45:00 92 mm[Hg] [facility] - diastolic [facility] height 2022-04-23 13:40:00 68.5 [in_i] [facility] weight 2022-04-23 13:40:00 201 [lb_av] [facility] temperature 2022-04-23 13:40:00 98.2 [degF] [facility] bmi 2022-04-23 13:40:00 30.11 kg/m2 Common [facility] oximetry 2022-04-23 13:40:00 95 % [facility] respiratory rate 2022-04-23 13:40:00 17 /min [facility] on [facility] blood pressure 2022-04-23 13:40:00 138 mm[Hg] [facility] blood pressure 2022-04-23 13:40:00 79 mm[Hg] [facility] height 2022-03-17 09:00:00 68.5 [in_i] [facility] weight 2022-03-17 09:00:00 200.5 [lb_av] [facility] temperature 2022-03-17 09:00:00 97.6 [degF] [facility] bmi 2022-03-17 09:00:00 30.04 kg/m2 [facility] oximetry 2022-03-17 09:00:00 95 % [facility] respiratory rate 2022-03-17 09:00:00 17 /min [facility] on [facility] blood pressure 2022-03-17 09:00:00 136 mm[Hg] [facility] blood pressure 2022-03-17 09:00:00 72 mm[Hg] [facility] height 2022-02-27 13:50:00 68.5 [in_i] [facility] weight 2022-02-27 13:50:00 201 [lb_av] [facility] temperature 2022-02-27 13:50:00 98.1 [degF] [facility] bmi 2022-02-27 13:50:00 30.11 kg/m2 [facility] oximetry 2022-02-27 13:50:00 98 % [facility] respiratory rate 2022-02-27 13:50:00 16 /min [facility] blood pressure 2022-02-27 13:50:00 124 mm[Hg] [facility] - systolic [facility] blood pressure 2022-02-27 13:50:00 77 mm[Hg] [facility] - diastolic [facility] blood pressure 2021-12-31 09:15:00 90 mm[Hg] [facility] - diastolic [facility] height 2021-12-31 09:15:00 69 [in_i] [facility] - [facility] weight 2021-12-31 09:15:00 211 [lb_av] [facility] temperature 2021-12-31 09:15:00 97.9 [degF] [facility] bmi 2021-12-31 09:15:00 31.16 kg/m2 [facility] - [facility] blood pressure 2021-12-31 09:15:00 144 mm[Hg] [facility] - systolic [facility] height 2021-12-17 08:15:00 69 [in_i] [facility] weight 2021-12-17 08:15:00 211 [lb_av] [facility] - [facility] temperature 2021-12-17 08:15:00 98.3 [degF] [facility] bmi 2021-12-17 08:15:00 31.16 kg/m2 [facility] - [facility] blood pressure 2021-12-17 08:15:00 140 mm[Hg] [facility] - systolic [facility] blood pressure 2021-12-17 08:15:00 88 mm[Hg] [facility] - diastolic [facility] height 2021-12-10 13:15:00 69 [in_i] [facility] - [facility] weight 2021-12-10 13:15:00 211 [lb_av] [facility] - [facility] bmi 2021-12-10 13:15:00 31.16 kg/m2 [facility] blood pressure 2021-12-10 13:15:00 140 mm[Hg] [facility] - systolic [facility] blood pressure 2021-12-10 13:15:00 84 mm[Hg] [facility] height 2021-11-28 09:10:00 69 [in_i] [facility] weight 2021-11-28 09:10:00 213.3 [lb_av] [facility] temperature 2021-11-28 09:10:00 97.2 [degF] Common [facility] bmi 2021-11-28 09:10:00 31.5 kg/m2 [facility] oximetry 2021-11-28 09:10:00 94 % [facility] respiratory rate 2021-11-28 09:10:00 16 /min [facility] blood pressure 2021-11-28 09:10:00 138 mm[Hg] [facility] - systolic [facility] blood pressure 2021-11-28 09:10:00 73 mm[Hg] [facility] height 2021-09-30 09:00:00 69 [in_i] Common [facility] weight 2021-09-30 09:00:00 211 [lb_av] [facility] temperature 2021-09-30 09:00:00 97.3 [degF] [facility] bmi 2021-09-30 09:00:00 31.16 kg/m2 [facility] blood pressure 2021-09-30 09:00:00 152 mm[Hg] [facility] blood pressure 2021-09-30 09:00:00 92 mm[Hg] [facility] Systolic (mm Hg) 2021-05-02 19:53:00 Abdiel Ornelas Diastolic (mm Hg) 2021-05-02 19:53:00 [facility] Heart Rate 2021-05-02 19:53:00 [facility] Respitory Rate 2021-05-02 19:53:00 [facility] Height 2021-05-02 19:53:00 172.72 cm [facility] Weight 2021-05-02 19:53:00 [facility] BMI Calculated 2021-05-02 19:53:00 [facility] Systolic (mm Hg) 2021-03-27 15:39:00 Abdiel rial [facility] Diastolic (mm Hg) 2021-03-27 15:39:00 [facility] Heart Rate 2021-03-27 15:39:00 [facility] Respitory Rate 2021-03-27 15:39:00 [facility] Height 2021-03-27 15:39:00 172.72 cm [facility] Weight 2021-03-27 15:39:00 [facility] BMI Calculated 2021-03-27 15:39:00 [facility] Systolic (mm Hg) 2021-02-13 21:08:00 [facility]iel [facility] Diastolic (mm Hg) 2021-02-13 21:08:00 [facility] Heart Rate 2021-02-13 21:08:00 [facility] Respitory Rate 2021-02-13 21:08:00 [facility] Height 2021-02-13 21:08:00 175.26 cm [facility] Weight 2021-02-13 21:08:00 [facility] BMI Calculated 2021-02-13 21:08:00 [facility] Systolic (mm Hg) 2021-01-21 14:39:00 [facility]iel [facility] Diastolic (mm Hg) 2021-01-21 14:39:00 [facility] Heart Rate 2021-01-21 14:39:00 [facility] Respitory Rate 2021-01-21 14:39:00 [facility] Height 2021-01-21 14:39:00 175.26 cm [facility] Weight 2021-01-21 14:39:00 [facility] BMI Calculated 2021-01-21 14:39:00 [facility] Heart Rate 2018-04-16 16:43:00 [facility] Respitory Rate 2018-04-16 16:43:00 [facility] Temperature Oral (F) 2018-04-16 16:43:00 98.1 F [facility] Systolic (mm Hg) 2018-04-16 16:43:00 Abdiel rial [facility] Diastolic (mm Hg) 2018-04-16 16:43:00 [facility] Heart Rate 2018-04-16 12:33:00 [facility] Temperature Oral (F) 2018-04-16 12:33:00 98.1 F [facility] Systolic (mm Hg) 2018-04-16 12:33:00 Abdiel rial [facility] Diastolic (mm Hg) 2018-04-16 12:33:00 [facility] Respitory Rate 2018-04-16 12:33:00 [facility] Respitory Rate 2018-04-16 08:19:00 [facility] Heart Rate 2018-04-16 08:19:00 [facility] Temperature Oral (F) 2018-04-16 08:19:00 97.9 F [facility] Systolic (mm Hg) 2018-04-16 08:19:00 Abdiel [facility] Diastolic (mm Hg) 2018-04-16 08:19:00 [facility] Height 2018-04-15 14:08:00 175.26 cm [facility] BMI Calculated 2018-04-15 14:08:00 [facility] Weight 2018-04-15 14:08:00 [facility] Systolic (mm Hg) 2017-12-14 20:44:00 Abdiel [facility] Diastolic (mm Hg) 2017-12-14 20:44:00 [facility] Temperature Oral (F) 2017-12-14 20:44:00 97.7 F [facility] Respitory Rate 2017-12-14 20:44:00 [facility] Respitory Rate 2017-12-14 15:33:00 [facility] Systolic (mm Hg) 2017-12-14 15:33:00 Abdiel rial [facility] Diastolic (mm Hg) 2017-12-14 15:33:00 [facility] BMI Calculated 2017-12-14 15:23:00 [facility] Weight 2017-12-14 15:23:00 [facility] Height 2017-12-14 15:23:00 175.26 cm [facility] Respitory Rate 2017-12-14 15:03:00 Finesse soto [facility] Systolic (mm Hg) 2017-12-14 15:03:00 Abdiel mendes [facility] Diastolic (mm Hg) 2017-12-14 15:03:00 [facility] Temperature Oral (F) 2017-12-14 14:20:00 97.6 F [facility] Temperature Oral (F) 2017-12-14 12:18:00 97.8 F [facility] Height 2017-12-14 12:02:00 180.34 cm [facility] BMI Calculated 2017-12-14 12:02:00 Finesse soto [facility] Weight 2017-12-14 12:02:00 [facility] Heart Rate 2017-12-14 12:02:00 [facility] Procedures Procedure Date / Time Performed Performing Clinician Regine e section [facility] Append[facility] Hysterectomy [facility] Cholecystectomy [facility] Encounters Start End Encounter Admission Attending Care Care Encounter Source Date/Time Date/Time Type Type Clinicians Facility Department ID 2022-09-05 [facility] STLMLC STLMLC [id number] Common 11:52:01 Jun [id number] [facility] 2022-08-19 [facility], STLMLC STLMLC [id number] Common 08:44:01 Jun [id number] [facility] 2022-07-10 [facility], STLMLC STLMLC [id number] Common 08:13:02 Jun [id number] [facility] 2022-05-28 [facility], STLMLC STLMLC [id number] Common 11:27:00 Jun [id number] [facility] 2022-05-19 [facility], STLMLC STLMLC [id number] Common 15:13:01 Jun [facility] 2022-04-23 [facility], STLMLC STLMLC [id number] Common 13:42:01 Jun [facility] 2022-02-27 [facility], STLMLC STLMLC [id number] Common 13:45:00 Jun [facility] 2022-02-18 [facility], STLMLC STLMLC [id number] Common 10:02:01 Jun [facility] 2022-01-02 [facility], STLMLC STLMLC [id number] Common 09:20:01 Jun [facility] 2021-12-09 [facility], STLMLC STLMLC [id number] Common 09:46:01 Jun [facility] 2021-11-22 [facility], STLMLC STLMLC [id number] Common 10:08:00 Jun [facility] 2021-09-30 [facility], STLMLC STLMLC [id number] Common 10:25:00 Jun [facility] 2021-09-27 [facility], STLMLC STLMLC [id number] Common 08:33:02 Jun [facility] 2021-09-17 [facility], STLMLC STLMLC [id number] Common 13:21:02 Jun [facility] 2021-09-16 [facility], STLMLC STLMLC [id number] Common 09:25:02 Jun [facility] 2021-08-28 [facility], STLMLC STLMLC [id number] Common 14:31:08 Jun [facility] 2021-08-28 [facility], STLMLC STLMLC [id number] Common 13:54:39 Jun [id number] [facility] 2021-08-28 [facility], STLMLC STLMLC [id number] Common 13:31:33 Jun [id number] [facility] 2021-08-28 [facility], STLMLC STLMLC [id number] Common 12:48:45 Jun [id number] [facility] 2021-08-28 [facility], STLMLC STLMLC [id number] Common 12:31:23 Jun [id number] [facility] 2021-08-28 [facility], STLMLC STLMLC [id number] Common 12:28:23 Jun [id number] [facility] 2021-08-28 [facility], STLMLC STLMLC [id number] Common 12:17:10 Jun [id number] [facility] 2021-08-28 [facility], STLMLC STLMLC [id number] Common 12:15:01 Jun [id number] [facility] 2021-08-28 [facility], STLMLC STLMLC [id number] Common 11:32:24 Jun [id number] [facility] 2021-08-28 [facility], STLMLC STLMLC [id number] Common 11:31:30 Jun [id number] [facility] 2021-08-28 [facility], STLMLC STLMLC [id number] Common 11:20:48 Jun [id number] [facility] 2021-08-28 [facility], STLMLC STLMLC [id number] Common 11:16:50 Jun [id number] [facility] 2021-08-28 Outpatient Vilal, STLMLC STLMLC [id number] Common 11:16:28 Jun [id number] [facility] 2021-08-28 Outpatient STLMLC STLMLC [id number] Common 11:13:33 [id number] [facility] 2022-09-09 2022-09-09 OFFICE STLMLC STLMLC [id number] Co mmon 00:00:00 00:00:00 VISIT [facility] PT - CHI [address] 2022-08-26 2022-08-26 (TEL) STLMLC STLMLC [id number] Co mmon 00:00:00 00:00:00 [facility] 2022-08-19 2022-08-19 OFFICE STLMLC STLMLC [id number] Co mmon 00:00:00 00:00:00 VISIT [facility] PT - CHI LEVEL [address] [place] [address] 2022-07-10 2022-07-10 OFFICE STLMLC STLMLC [id number] Co mmon 00:00:00 00:00:00 [facility]IT [facility] LEVEL 3 - [facility] 2022-07-09 2022-07-09 (TEL) STLMLC STLMLC [id number] Co mmon 00:00:00 00:00:00 [facility] 2022-07-08 2022-07-08 (TEL) STLMLC STLMLC [id number] Co mmon 00:00:00 00:00:00 [facility] 2022-06-30 2022-06-30 (TEL) STLMLC STLMLC [id number] Co mmon 00:00:00 00:00:00 [facility] 2022-06-30 2022-06-30 (TEL) STLMLC STLMLC [id number] Co mmon 00:00:00 00:00:00 [facility] 2022-06-11 2022-06-11 (TEL) STLMLC STLMLC [id number] Co mmon 00:00:00 00:00:00 [facility] 2022-05-30 2022-05-30 (TEL) STLMLC STLMLC [id number] Co mmon 00:00:00 00:00:00 [facility] 2022-05-28 2022-05-28 (WELLNESS) STLMLC STLMLC [id number] Common 00:00:00 00:00:00 [facility] Visit [facility] 2022-05-27 2022-05-27 OFFICE STLMLC STLMLC [id number] Co mmon 00:00:00 00:00:00 [facility] PT - CHI LEVEL 4 [facility] 2022-05-20 2022-05-20 (TEL) STLMLC STLMLC [id number] Co mmon 00:00:00 00:00:00 [facility] 2022-05-14 2022-05-14 (TEL) STLMLC STLMLC [id number] Co mmon 00:00:00 00:00:00 [facility] 2022-05-08 2022-05-08 (TEL) STLMLC STLMLC [id number] Co mmon 00:00:00 00:00:00 [facility] 2022-05-05 2022-05-05 (TEL) STLMLC STLMLC [id number] Co mmon 00:00:00 00:00:00 [facility] 2022-04-23 2022-04-23 (TEL) STLMLC STLMLC [id number] Co mmon 00:00:00 00:00:00 [facility] 2022-04-23 2022-04-23 OFFICE STLMLC STLMLC [id number] Co mmon 00:00:00 00:00:00 [facility]IT [facility] LEVEL 3 [facility] 2022-04-14 2022-04-14 (TEL) STLMLC STLMLC [id number] Co mmon 00:00:00 00:00:00 [facility] 2022-04-02 2022-04-02 (TEL) STLMLC STLMLC [id number] Co mmon 00:00:00 00:00:00 [facility] 2022-03-17 2022-03-17 OFFICE STLMLC STLMLC [id number] Co mmon 00:00:00 00:00:00 [facility]IT [facility] PT LEVEL 3 [facility] 2022-03-13 2022-03-13 (TEL) STLMLC STLMLC [id number] Co mmon 00:00:00 00:00:00 [facility] 2022-03-04 2022-03-04 (TEL) STLMLC STLMLC [id number] Co mmon 00:00:00 00:00:00 [facility] 2022-02-27 2022-02-27 OFFICE STLMLC STLMLC [id number] Co mmon 00:00:00 00:00:00 VISIT [facility] PT - CHI [facility] LEVEL 4 [facility] 2021-12-31 2021-12-31 (IN/ASP) STLMLC STLMLC [id number] C ommon 00:00:00 00:00:00 INJ ASP [facility] 2021-12-17 2021-12-17 (IN/ASP) STLMLC STLMLC [id number] C ommon 00:00:00 00:00:00 INJ ASP [facility] 2021-12-10 2021-12-10 (IN/ASP) STLMLC STLMLC [id number] C ommon 00:00:00 00:00:00 INJ ASP [facility] 2021-12-03 2021-12-03 (TEL) STLMLC STLMLC [id number] Co mmon 00:00:00 00:00:00 [facility] 2021-11-28 2021-11-28 OFFICE STLMLC STLMLC [id number] Co mmon 00:00:00 00:00:[address] [facility] LEVEL 4 [facility] 2021-11-26 2021-11-26 (TEL) STLMLC STLMLC [id number] Co mmon 00:00:00 00:00:00 [facility] 2021-11-22 2021-11-22 (TEL) STLMLC STLMLC [id number] Co mmon 00:00:00 00:00:00 [facility] 2021-10-29 2021-10-29 (TEL) STLMLC STLMLC [id number] Co mmon 00:00:00 00:00:00 [facility] 2021-10-28 2021-10-28 (TEL) STLMLC STLMLC [id number] Co mmon 00:00:00 00:00:00 [facility] 2021-10-22 2021-10-22 (TEL) STLMLC STLMLC [id number] Co mmon 00:00:00 00:00:00 [facility] 2021-09-30 2021-09-30 OFFICE STLMLC STLMLC [id number] Co mmon 00:00:00 00:00:[address] [facility] LEVEL 4 [facility] 2021-09-16 2021-09-16 (TEL) STLMLC STLMLC [id number] Co mmon 00:00:00 00:00:00 [facility] 2021-07-022021-07-02 Ambulatory nullFlavo MNA [id number] Memoria 15:45:00 15:45:00 Pre-Reg r Neurology 04 l [facility] 2021-05-20 2021-05-20 (TEL) STLMLC STLMLC [id number] Co mmon 00:00:00 00:00:00 [facility] 2021-05-02 2021-05-03 Outpatient nullFlavo MNA [id number] Memoria 19:45:00 04:59:59 r Neurology 03 l [facility] 2021-05-02 2021-05-02 Outpatient STLMLC STLMLC [id number] Common 00:00:00 00:00:00 [facility] 2021-03-27 2021-03-28 Outpatient nullFlavo MNA [id number] Memoria 15:45:00 04:59:59 r Neurology 02 l [facility] 2021-02-27 2021-02-27 Outpatient STLMLC STLMLC [id number] Common 00:00:00 00:00:00 [facility] 2021-02-13 2021-02-14 Outpatient nullFlavo MNA [id number] Memoria 21:00:00 04:59:59 r Neurology 01 l [facility] 2021-01-21 2021-01-22 Outpatient nullFlavo MNA [id number] Memoria 14:45:00 04:59:59 r Neurology 00 l [facility] 2021-01-07 2021-01-07 Outpatient STLMLC STLMLC [id number] Common 00:00:00 00:00:00 [facility] 2020-12-13 2020-12-13 Outpatient STLMLC STLMLC [id number] Common 00:00:00 00:00:00 [facility] 2020-12-11 2020-12-11 Outpatient STLMLC STLMLC [id number] Common 00:00:00 00:00:00 [facility] 2020-12-10 2020-12-10 Outpatient STLMLC STLMLC [id number] Common 00:00:00 00:00:00 [facility] 2020-12-06 2020-12-06 Outpatient STLMLC STLMLC [id number] Common 00:00:00 00:00:00 [facility] 2020-12-06 2020-12-06 Outpatient STLMLC STLMLC [id number] Common 00:00:00 00:00:00 [facility] 2020-11-30 2020-11-30 Outpatient STLMLC STLMLC [id number] Common 00:00:00 00:00:00 [facility] 2020-11-29 2020-11-29 Outpatient STLMLC STLMLC [id number] Common 00:00:00 00:00:00 [facility] 2020-11-29 2020-11-29 Outpatient STLMLC STLMLC [id number] Common 00:00:00 00:00:00 [facility] 2020-11-22 2020-11-22 Outpatient STLMLC STLMLC [id number] Common 00:00:00 00:00:00 [facility] 2020-11-16 2020-11-16 Outpatient STLMLC STLMLC [id number] Common 00:00:00 00:00:00 [facility] 2020-11-12 2020-11-12 Outpatient STLMLC STLMLC [id number] Common 00:00:00 00:00:00 [facility] 2020-11-07 2020-11-07 Outpatient STLMLC STLMLC [id number] Common 00:00:00 00:00:00 [facility] 2020-11-06 2020-11-06 Outpatient STLMLC STLMLC [id number] Common 00:00:00 00:00:00 [facility] 2020-10-31 2020-10-31 Outpatient STLMLC STLMLC [id number] Common 00:00:00 00:00:00 [facility] 2020-09-21 2020-09-21 Outpatient STLMLC STLMLC [id number] Common 00:00:00 00:00:00 [facility] 2020-09-20 2020-09-20 Outpatient STLMLC STLMLC [id number] Common 00:00:00 00:00:00 [facility] 2020-09-11 2020-09-11 Outpatient STLMLC STLMLC [id number] Common 00:00:00 00:00:00 [facility] 2020-09-05 2020-09-05 Outpatient STLMLC STLMLC [id number] Common 00:00:00 00:00:00 [facility] 2020-09-04 2020-09-04 Outpatient STLMLC STLMLC [id number] Common 00:00:00 00:00:00 [facility] 2020-08-31 2020-08-31 Outpatient STLMLC STLMLC [id number] Common 00:00:00 00:00:00 [facility] 2020-08-29 2020-08-29 Outpatient STLMLC STLMLC [id number] Common 00:00:00 00:00:00 [facility] 2020-08-02 2020-08-02 Outpatient STLMLC STLMLC [id number] Common 00:00:00 00:00:00 [facility] 2020-06-21 2020-06-21 Outpatient STLMLC STLMLC [id number] Common 00:00:00 00:00:00 [facility] 2020-06-20 2020-06-20 Outpatient STLMLC STLMLC [id number] Common 00:00:00 00:00:00 [facility] 2020-02-23 2020-02-23 [id number] Common 10:30:00 10:30:[address] [place] [facility] 2020-02-02 2020-02-02 [id number] Common 16:15:00 16:15:[address] [place] [address] [facility] 2020-01-26 2020-01-26 [facility] [id number] Common 09:02:00 09:02:[address] [address] [facility] 2020-01-25 2020-01-25 [facility] [id number] Common 09:33:00 09:33:[address] [address] [facility] 2020-01-24 2020-01-24 [facility] [id number] Common 15:30:00 15:30:[address] [place] [address] [facility] 2020-01-23 2020-01-23 [id number] Common 08:26:00 08:26:[address] [facility] [address] [facility] 2020-01-23 2020-01-23 [facility] [id number] Common 00:14:00 00:14:[address] [facility] [address] [facility] 2020-01-06 2020-01-06 [facility] 30 [id number] Common 08:06:00 08:06:[address] [address] [facility] 2020-01-05 2020-01-05 [facility] [id number] Common 10:30:00 10:30:[address] [address] [facility] 2020-01-01 2020-01-01 [facility] 30 [id number] Common 19:47:00 19:47:[address] [address] [facility] 2019-12-13 2019-12-13 [facility] [id number] Common 13:27:00 13:27:[address] [facility] [address] [facility] 2019-12-08 2019-12-08 [facility] [id number] Common 08:07:00 08:07:[address] [place] [address] [facility] 2019-12-07 2019-12-07 [facility] 30 [id number] Common 13:00:00 13:00:[address] [place] [address] [facility] 2019-11-24 2019-11-24 [facility] [id number] Common 09:15:00 09:15:[address] [address] [facility] 2019-11-04 2019-11-04 [facility] [id number] Common 09:00:00 09:00:[address] [address] [facility] 2019-10-13 2019-10-13 [facility] [id number] Common 14:30:00 14:30:[address] [address] [facility] 2018-04-15 2018-04-16 Observatio nullFlavo [facility] 4731 [id number] Memoria 14:01:00 18:30:00 n renetta Ornelas 00 l [facility] 2017-12-14 2017-12-14 [facility] 4731 [id number] Memoria 12:00:00 22:10:00 n renetta Ornelas 66 l [facility] Results Test Description Test Time Test Comments Results Result Comments Source CARDIAC ENZYMES 2018-04-16 05:17:00 Test Item Value Reference Range Interpretation Comme nts Troponin-I (test code = no gt See_Comment [Au tomated message] The system Troponin-I) which generated this result transmitted ref erence range: <=0.40. The ref erence range was not used to interpr et this result as normal/abnormal . [facility] [employer] [id number] 05:17:00 Test Item Value Reference Range Interpretation Comments eGFR (test code = eGFR) 53 [facility] [id number] 05:17:00 Test Item Value Reference Range Interpretation Comments Chloride Lvl (test code = Chloride Lvl) 105 95-109 [facility] [id number] 05:17:00 Test Item Value Reference Range Interpretation Comments CO2 (test code = CO2) 31 24-32 [facility] [id number] 05:17:00 Test Item Value Reference Range Interpretation Comments Potassium Lvl (test code = Potassium 4.5 3.5-5.1 Lvl) [facility] [id number] 05:17:00 Test Item Value Reference Range Interpretation Comments Sodium Lvl (test code = Sodium Lvl) 142 135-145 [facility] ChildrenannATRIUM HEALTH STEELE [id number] 05:17:00 Test Item Value Reference Range Interpretation Comments BUN (test code = BUN) 15 7-22 [facility]2018-09-14 05:17:00 Test Item Value Reference Range Interpretation Comments Creatinine Lvl (test code = Creatinine 1.15 0.50-1.40 Lvl) [facility]2018-09-14 05:17:00 Test Item Value Reference Range Interpretation Comments Calcium Lvl (test code = Calcium Lvl) 8.6 8.5-10.5 [facility]2018-09-14 05:17:00 Test Item Value Reference Range Interpretation Comments AGAP (test code = AGAP) 10.5 10.0-20.0 [facility]2018-09-14 05:17:00 Test Item Value Reference Range Interpretation Comments Glucose Lvl (test code = Glucose Lvl) 100 70-99 [facility]wallUhobbcvTAARDOHLXV8754-16-84 05:17:00 Test Item Value Reference Range Interpretation Comments Hct (test code = Hct) 38.9 36.0-48.0 [facility]wallFvlhaztUCJVJIYJRZ8696-60-93 05:17:00 Test Item Value Reference Range Interpretation Comments Hgb (test code = Hgb) 13.5 12.0-16.0 [facility] RockwallLtfknsgBMNGUIWHCK4455-13-19 05:17:00 Test Item Value Reference Range Interpretation Comments MPV (test code = MPV) 9.0 7.4-10.4 [facility] RockwallIevamagDGANMBUEWL3037-01-92 05:17:00 Test Item Value Reference Range Interpretation Comments Platelet (test code = Platelet) 133 133-450 [facility] RockwallGqplzjrWAYMACSJXK4537-15-15 05:17:00 Test Item Value Reference Range Interpretation Comments MCHC (test code = MCHC) 34.7 32.0-36.0 [facility] RockwallLvzonijEGVHSTQWXD7926-86-43 05:17:00 Test Item Value Reference Range Interpretation Comments MCV (test code = MCV) 96.7 80.0-98.0 [facility] RockwallQiiobgwSWXKBYKUZP9935-67-05 05:17:00 Test Item Value Reference Range Interpretation Comments RDW (test code = RDW) 12.9 11.5-14.5 [facility] RockwallZsmcqtnBNMGRBJYSD2949-23-92 05:17:00 Test Item Value Reference Range Interpretation Comments MCH (test code = MCH) 33.6 pg 27.0-31.0 [facility] CenterEdkpbsiBFRUAZEBMJ9050-32-01 05:17:00 Test Item Value Reference Range Interpretation Comments WBC (test code = WBC) 3.9 3.7-10.4 [facility] ChildrenMdnownhMLASZTRDPH1479-70-28 05:17:00 Test Item Value Reference Range Interpretation Comments RBC (test code = RBC) 4.02 4.20-5.40 [facility] ChildrenFflypbjEYBQUE3909-47-91 05:17:00 Test Item Value Reference Range Interpretation Comments VLDL (test code = VLDL) 44 1 [facility] ChildrenHoreeasLIIYDI5765-38-82 05:17:00 Test Item Value Reference Range Interpretation Comments LDL (Calculated) (test code = LDL 87 (Calculated)) [facility] ChildrenEwnjpptFASDXK1924-11-31 05:17:00 Test Item Value Reference Range Interpretation Comments HDL (test code = HDL) 49 [facility] ChildrenMspcuzhNQFLJP7897-53-82 05:17:00 Test Item Value Reference Range Interpretation Comments Chol (test code = Chol) 180 [facility] ChildrenJovuppxAREPOU8017-96-47 05:17:00 Test Item Value Reference Range Interpretation Comments Trig (test code = Trig) 220 [facility] ChildrenZzmndgtYIIPOP1376-62-81 05:17:00 Test Item Value Reference Range Interpretation Comments CHD Risk (test code = CHD Risk) 3.67 1 3.90-5.80 [facility] CenterSPECIAL [id number] 05:17:00 Test Item Value Reference Range Interpretation Comments Hgb A1C (test code = Hgb A1C) 5.5 [facility] CenterCARDIAC [id number] 05:17:00 Test Item Value Reference Range Interpretation Comments Troponin-I (test code no gt See_Comment [Auto mated message] The = Troponin-I) system which g enerated this result transmit yariel reference range : <=0.40. The reference r chasity was not used to interpr et this result as anil l/abnormal. [facility] ChildrenBlueYieldCHEM [id number] 05:17:00 Test Item Value Reference Range Interpretation Comments eGFR (test code = eGFR) 53 [facility] CenterCHEM [id number] 05:17:00 Test Item Value Reference Range Interpretation Comments Chloride Lvl (test code = Chloride Lvl) 105 95-109 [facility]2018-09-14 05:17:00 Test Item Value Reference Range Interpretation Comments CO2 (test code = CO2) 31 24-32 [facility]2018-09-14 05:17:00 Test Item Value Reference Range Interpretation Comments Potassium Lvl (test code = Potassium 4.5 3.5-5.1 Lvl) [facility]2018-09-14 05:17:00 Test Item Value Reference Range Interpretation Comments Sodium Lvl (test code = Sodium Lvl) 142 135-145 [facility]2018-09-14 05:17:00 Test Item Value Reference Range Interpretation Comments BUN (test code = BUN) 15 7-22 [facility]2018-09-14 05:17:00 Test Item Value Reference Range Interpretation Comments Creatinine Lvl (test code = Creatinine 1.15 0.50-1.40 Lvl) [facility]2018-09-14 05:17:00 Test Item Value Reference Range Interpretation Comments Calcium Lvl (test code = Calcium Lvl) 8.6 8.5-10.5 [facility]2018-09-14 05:17:00 Test Item Value Reference Range Interpretation Comments AGAP (test code = AGAP) 10.5 10.0-20.0 [facility]2018-09-14 05:17:00 Test Item Value Reference Range Interpretation Comments Glucose Lvl (test code = Glucose Lvl) 100 70-99 [facility] RockwallYeuhvacXNQRDRDENA0249-34-71 05:17:00 Test Item Value Reference Range Interpretation Comments Hct (test code = Hct) 38.9 36.0-48.0 [facility] RockwallZfprlltMJVKNQSTFB4554-30-77 05:17:00 Test Item Value Reference Range Interpretation Comments Hgb (test code = Hgb) 13.5 12.0-16.0 [facility] RockwallJvcxftxQSJDDYVUBQ2728-37-66 05:17:00 Test Item Value Reference Range Interpretation Comments MPV (test code = MPV) 9.0 7.4-10.4 [facility] RockwallLyxixzfZSANNPUGGD3886-12-05 05:17:00 Test Item Value Reference Range Interpretation Comments Platelet (test code = Platelet) 133 133-450 [facility] RockwallXtpfreqBBSJQHDEAU4004-77-73 05:17:00 Test Item Value Reference Range Interpretation Comments MCHC (test code = MCHC) 34.7 32.0-36.0 [facility] CenterJylpjctHETZSAMZLY4397-70-70 05:17:00 Test Item Value Reference Range Interpretation Comments MCV (test code = MCV) 96.7 80.0-98.0 [facility] CenterOdrfnbgQDVNYDZVOJ5509-73-10 05:17:00 Test Item Value Reference Range Interpretation Comments RDW (test code = RDW) 12.9 11.5-14.5 [facility] ChildrenOpaqlszRZPJTISLQK1825-78-62 05:17:00 Test Item Value Reference Range Interpretation Comments MCH (test code = MCH) 33.6 pg 27.0-31.0 [facility] ChildrenYylyawpVPXLNGHBIV0577-88-22 05:17:00 Test Item Value Reference Range Interpretation Comments WBC (test code = WBC) 3.9 3.7-10.4 [facility] ChildrenYxatzeaDBVNHDKVFE0318-84-73 05:17:00 Test Item Value Reference Range Interpretation Comments RBC (test code = RBC) 4.02 4.20-5.40 [facility] ChildrenWudvnfiMOCIUS1778-78-03 05:17:00 Test Item Value Reference Range Interpretation Comments VLDL (test code = VLDL) 44 1 [facility] ChildrenKxsiwhyPIKGBJ6803-22-74 05:17:00 Test Item Value Reference Range Interpretation Comments LDL (Calculated) (test code = LDL 87 (Calculated)) [facility] ChildrenTufbjzcOALRNY0100-86-58 05:17:00 Test Item Value Reference Range Interpretation Comments HDL (test code = HDL) 49 [facility] ChildrenZozdkqrASHKYJ0010-99-81 05:17:00 Test Item Value Reference Range Interpretation Comments Chol (test code = Chol) 180 [facility] ChildrenJlujhuvSLYDJN4059-79-08 05:17:00 Test Item Value Reference Range Interpretation Comments Trig (test code = Trig) 220 [facility] ChildrenWlpsjbyUGIUXN4393-06-59 05:17:00 Test Item Value Reference Range Interpretation Comments CHD Risk (test code = CHD Risk) 3.67 1 3.90-5.80 [facility] CenterSPECIAL USRFWBIVM1343-29-17 05:17:00 Test Item Value Reference Range Interpretation Comments Hgb A1C (test code = Hgb A1C) 5.5 [facility] CenterCARDIAC YOMBDRW7384-54-01 05:17:00 Test Item Value Reference Range Interpretation Comments Troponin-I (test code no gt See_Comment [Auto mated message] The = Troponin-I) system which g enerated this result transmit yariel reference range : <=0.40. The reference r chasity was not used to interpr et this result as anil l/abnormal. [facility]2018-09-14 05:17:00 Test Item Value Reference Range Interpretation Comments eGFR (test code = eGFR) 53 [facility]2018-09-14 05:17:00 Test Item Value Reference Range Interpretation Comments Chloride Lvl (test code = Chloride Lvl) 105 95-109 [facility]2018-09-14 05:17:00 Test Item Value Reference Range Interpretation Comments CO2 (test code = CO2) 31 24-32 [facility]2018-09-14 05:17:00 Test Item Value Reference Range Interpretation Comments Potassium Lvl (test code = Potassium 4.5 3.5-5.1 Lvl) [facility]2018-09-14 05:17:00 Test Item Value Reference Range Interpretation Comments Sodium Lvl (test code = Sodium Lvl) 142 135-145 [facility]2018-09-14 05:17:00 Test Item Value Reference Range Interpretation Comments BUN (test code = BUN) 15 7-22 [facility]2018-09-14 05:17:00 Test Item Value Reference Range Interpretation Comments Creatinine Lvl (test code = Creatinine 1.15 0.50-1.40 Lvl) [facility]2018-09-14 05:17:00 Test Item Value Reference Range Interpretation Comments Calcium Lvl (test code = Calcium Lvl) 8.6 8.5-10.5 [facility]2018-09-14 05:17:00 Test Item Value Reference Range Interpretation Comments AGAP (test code = AGAP) 10.5 10.0-20.0 [facility]2018-09-14 05:17:00 Test Item Value Reference Range Interpretation Comments Glucose Lvl (test code = Glucose Lvl) 100 70-99 [facility] RockwallYtebvuzGRQXLBTMEB3283-21-78 05:17:00 Test Item Value Reference Range Interpretation Comments Hct (test code = Hct) 38.9 36.0-48.0 [facility] RockwallTasugkkETQBIXVVLB6110-38-50 05:17:00 Test Item Value Reference Range Interpretation Comments Hgb (test code = Hgb) 13.5 12.0-16.0 [facility] RockwallClkzbvwBUUHGSZYTU6132-51-88 05:17:00 Test Item Value Reference Range Interpretation Comments MPV (test code = MPV) 9.0 7.4-10.4 [facility] RockwallTlkcnaoTNXDWFOMPD2899-76-33 05:17:00 Test Item Value Reference Range Interpretation Comments Platelet (test code = Platelet) 133 133-450 [facility] RockwallBglflcsGTIPVNYWWD8732-64-61 05:17:00 Test Item Value Reference Range Interpretation Comments MCHC (test code = MCHC) 34.7 32.0-36.0 [facility] RockwallJyhiycvDONOVXAVZZ7284-54-66 05:17:00 Test Item Value Reference Range Interpretation Comments MCV (test code = MCV) 96.7 80.0-98.0 [facility] RockwallNuqvwzuLZNROSGZKN1793-02-32 05:17:00 Test Item Value Reference Range Interpretation Comments RDW (test code = RDW) 12.9 11.5-14.5 [facility] RockwallOwuxnwkQAXZUWNSJF0516-81-21 05:17:00 Test Item Value Reference Range Interpretation Comments MCH (test code = MCH) 33.6 pg 27.0-31.0 [facility] RockwallMxjgseuHMUWLSIBGJ9638-91-12 05:17:00 Test Item Value Reference Range Interpretation Comments WBC (test code = WBC) 3.9 3.7-10.4 [facility] RockwallEqyxwgvDGEPDKNRLP4449-50-68 05:17:00 Test Item Value Reference Range Interpretation Comments RBC (test code = RBC) 4.02 4.20-5.40 [facility]YcskduvWDYECW8717-36-76 05:17:00 Test Item Value Reference Range Interpretation Comments VLDL (test code = VLDL) 44 1 [facility]cosUyydupwNLIEFM8076-41-29 05:17:00 Test Item Value Reference Range Interpretation Comments LDL (Calculated) (test code = LDL 87 (Calculated)) [facility] MarcosDvlnxrsBPPALW5357-83-21 05:17:00 Test Item Value Reference Range Interpretation Comments HDL (test code = HDL) 49 [facility] MarcosEubhlzkYMRKMH4003-36-60 05:17:00 Test Item Value Reference Range Interpretation Comments Chol (test code = Chol) 180 [facility]cosPqausnuOYDVAF2118-73-70 05:17:00 Test Item Value Reference Range Interpretation Comments Trig (test code = Trig) 220 [facility] MarcosIrnwyzeLXQFSK5248-72-11 05:17:00 Test Item Value Reference Range Interpretation Comments CHD Risk (test code = CHD Risk) 3.67 1 3.90-5.80 [facility] [id number] 05:17:00 Test Item Value Reference Range Interpretation Comments Hgb A1C (test code = Hgb A1C) 5.5 [facility]CARGEOR[facility] IAVFGRJ4601-98-57 23:18:00 Test Item Value Reference Range Interpretation Comments Troponin-I (test code no gt See_Comment [Auto mated message] The = Troponin-I) system which g enerated this result transmit yariel reference range : <=0.40. The reference r chasity was not used to interpr et this result as anil l/abnormal. [facility] [id number] 23:18:00 Test Item Value Reference Range Interpretation Comments Troponin-I (test code no gt See_Comment [Auto mated message] The = Troponin-I) system which g enerated this result transmit yariel reference range : <=0.40. The reference r chasity was not used to interpr et this result as anil l/abnormal. [facility] [id number] 23:18:00 Test Item Value Reference Range Interpretation Comments Troponin-I (test code no gt See_Comment [Auto mated message] The = Troponin-I) system which g enerated this result transmit yariel reference range : <=0.40. The reference r chasity was not used to interpr et this result as anil l/abnormal. [facility] ChildrenT[facility] [id number] 18:29:00 Test Item Value Reference Range Interpretation Comments Lactic Acid Lvl (test code = Lactic 0.7 0.5-2.2 Acid Lvl) [facility] [id number] 18:29:00 Test Item Value Reference Range Interpretation Comments Lipase Lvl (test code = Lipase Lvl) 87 73393 [facility]2018-09-13 18:29:00 Test Item Value Reference Range Interpretation Comments Lactic Acid Lvl (test code = Lactic 0.7 0.5-2.2 Acid Lvl) [facility] [id number] 18:29:00 Test Item Value Reference Range Interpretation Comments Lipase Lvl (test code = Lipase Lvl) 87 72-393 [facility] ChildrenT[facility] [id number] 18:29:00 Test Item Value Reference Range Interpretation Comments Lactic Acid Lvl (test code = Lactic 0.7 0.5-2.2 Acid Lvl) [facility] CenterInvitedHome [id number] 18:29:00 Test Item Value Reference Range Interpretation Comments Lipase Lvl (test code = Lipase Lvl) 87 73-393 [facility] CenterVaccibodyGEORGETOWN COMMUNITY HOSPITAL [id number] 17:49:00 Test Item Value Reference Range Interpretation Comments Troponin-I (test code no gt See_Comment [Auto mated message] The = Troponin-I) system which g enerated this result transmit yariel reference range : <=0.40. The reference r chasity was not used to interpr et this result as anil l/abnormal. [facility] CenterVaccibodyGEORGETOWN COMMUNITY HOSPITAL [id number] 17:49:00 Test Item Value Reference Range Interpretation Comments Troponin-I (test code no gt See_Comment [Auto mated message] The = Troponin-I) system which g enerated this result transmit yariel reference range : <=0.40. The reference r chasity was not used to interpr et this result as anil l/abnormal. [facility] ChildrenMeFeedia [id number] 17:49:00 Test Item Value Reference Range Interpretation Comments Troponin-I (test code no gt See_Comment [Auto mated message] The = Troponin-I) system which g enerated this result transmit yariel reference range : <=0.40. The reference r chasity was not used to interpr et this result as anil l/abnormal. [facility] CenterBEW Global [id number] 15:16:00 Test Item Value Reference Range Interpretation Comments Total CK (test code = Total CK) 109 12-191 [facility] CenterBEW Global [id number] 15:16:00 Test Item Value Reference Range Interpretation Comments proBNP (test code = 64 See_Comment [Automa yariel message] The proBNP) system which ge nerated this result tra nsmitted reference range : <=125. The reference r chasity was not used to int erpret this result as anil l/abnormal. [facility] ChildrenT[facility] [id number] 15:16:00 Test Item Value Reference Range Interpretation Comments A/G Ratio (test code = A/G Ratio) 1.2 1 0.7-1.6 [facility]2018-09-13 15:16:00 Test Item Value Reference Range Interpretation Comments Globulin (test code = Globulin) 3.3 2.7-4.2 [facility]2018-09-13 15:16:00 Test Item Value Reference Range Interpretation Comments B/C Ratio (test code = B/C Ratio) 16 1 6-25 [facility]2018-09-13 15:16:00 Test Item Value Reference Range Interpretation Comments AGAP (test code = AGAP) 12.0 10.0-20.0 [facility]2018-09-13 15:16:00 Test Item Value Reference Range Interpretation Comments eGFR (test code = eGFR) 83 [facility]2018-09-13 15:16:00 Test Item Value Reference Range Interpretation Comments Bili Total (test code = Bili Total) 0.5 0.2-1.3 [facility]2018-09-13 15:16:00 Test Item Value Reference Range Interpretation Comments Alk Phos (test code = Alk Phos) 82 39-136 [facility]2018-09-13 15:16:00 Test Item Value Reference Range Interpretation Comments ALT (test code = ALT) 28 See_Comment [Auto mated message] The system which ge nerated this result transmit yariel reference range : <=65. The reference range was not used to interpr et this result as anil l/abnormal. [facility]2018-09-13 15:16:00 Test Item Value Reference Range Interpretation Comments AST (test code = AST) 13 See_Comment [Auto mated message] The system which ge nerated this result transmit yariel reference range : <=37. The reference range was not used to interpr et this result as anil l/abnormal. [facility]2018-09-13 15:16:00 Test Item Value Reference Range Interpretation Comments Total Protein (test code = Total 7.1 6.4-8.4 Protein) [facility]2018-09-13 15:16:00 Test Item Value Reference Range Interpretation Comments Calcium Lvl (test code = Calcium Lvl) 9.6 8.5-10.5 [facility]2018-09-13 15:16:00 Test Item Value Reference Range Interpretation Comments CO2 (test code = CO2) 28 24-32 [facility]2018-09-13 15:16:00 Test Item Value Reference Range Interpretation Comments Potassium Lvl (test code = Potassium 4.0 3.5-5.1 Lvl) [facility]2018-09-13 15:16:00 Test Item Value Reference Range Interpretation Comments Chloride Lvl (test code = Chloride Lvl) 110 95-109 [facility]2018-09-13 15:16:00 Test Item Value Reference Range Interpretation Comments Sodium Lvl (test code = Sodium Lvl) 146 135-145 [facility]2018-09-13 15:16:00 Test Item Value Reference Range Interpretation Comments Creatinine Lvl (test code = Creatinine 0.79 0.50-1.40 Lvl) [facility]2018-09-13 15:16:00 Test Item Value Reference Range Interpretation Comments BUN (test code = BUN) 13 7-22 [facility]2018-09-13 15:16:00 Test Item Value Reference Range Interpretation Comments Glucose Lvl (test code = Glucose Lvl) 89 70-99 [facility]2018-09-13 15:16:00 Test Item Value Reference Range Interpretation Comments Albumin Lvl (test code = Albumin Lvl) 3.8 3.5-5.0 [facility]2018-09-13 15:16:00 Test Item Value Reference Range Interpretation Comments Magnesium Lvl (test code = Magnesium 2.3 1.8-2.4 Lvl) [facility]2018-09-13 15:16:00 Test Item Value Reference Range Interpretation Comments Phosphorus (test code = Phosphorus) 3.7 2.5-4.5 [facility]udaZywulwkATHRHPZIZMVEM5585-35-70 15:16:00 Test Item Value Reference Range Interpretation Comments S Preg (test code = S Negative *NA*(04/15/18 Preg) 10:16 AM) [facility]XtofufjOESQNKUQGF1992-22-68 15:16:00 Test Item Value Reference Range Interpretation Comments WBC (test code = WBC) 4.9 3.7-10.4 [facility]wallAyiobsdJSUIMJAURV0429-25-88 15:16:00 Test Item Value Reference Range Interpretation Comments Hgb (test code = Hgb) 15.2 12.0-16.0 [facility]wallKqscfmaUTOBPXNUIM7959-32-06 15:16:00 Test Item Value Reference Range Interpretation Comments RBC (test code = RBC) 4.61 4.20-5.40 [facility]wallLbpznxhULMONDLSKX3312-61-29 15:16:00 Test Item Value Reference Range Interpretation Comments MCHC (test code = MCHC) 33.6 32.0-36.0 [facility]wallAxlwbbbFAZVNJBWYO7992-42-00 15:16:00 Test Item Value Reference Range Interpretation Comments Hct (test code = Hct) 45.3 36.0-48.0 [facility]wallOobaxwvWGOMBBLUHZ4846-55-40 15:16:00 Test Item Value Reference Range Interpretation Comments MCV (test code = MCV) 98.2 80.0-98.0 [facility]wallDryfpdgOQOFCJEDRV9286-12-77 15:16:00 Test Item Value Reference Range Interpretation Comments MCH (test code = MCH) 33.0 pg 27.0-31.0 [facility] RockwallAfhxnqqIOWPKPTEIS7832-72-78 15:16:00 Test Item Value Reference Range Interpretation Comments MPV (test code = MPV) 8.8 7.4-10.4 [facility] RockwallIygsagvLUYDKIYLVK1140-98-85 15:16:00 Test Item Value Reference Range Interpretation Comments RDW (test code = RDW) 12.6 11.5-14.5 [facility] RockwallCnroufeFCJQGAJHVT8059-24-35 15:16:00 Test Item Value Reference Range Interpretation Comments Platelet (test code = Platelet) 163 133-450 [facility] RockwallVdoajoeEZAQJEDKHS5988-42-55 15:16:00 Test Item Value Reference Range Interpretation Comments Lymphocytes (test code = Lymphocytes) 39.1 20.0-40.0 [facility]wallEpflrgaDCELEOHQLE9478-83-50 15:16:00 Test Item Value Reference Range Interpretation Comments Eosinophils (test code = 2.5 See_Comment [A utomated message] The Eosinophils) system which ge nerated this result tra nsmitted reference range : <=4.0. The reference r chasity was not used to int erpret this result as normal/abnormal . [facility] RockwallJaoeykuNCAPHQPSJQ1238-73-50 15:16:00 Test Item Value Reference Range Interpretation Comments Segs (test code = Segs) 50.6 45.0-75.0 [facility]wallFzgjjgyYXMMFWLFUU9868-28-33 15:16:00 Test Item Value Reference Range Interpretation Comments Lymphocytes # (test code = Lymphocytes 1.9 1.0-5.5 #) [facility] RockwallFdioibhVMDRTBGJUC1357-42-64 15:16:00 Test Item Value Reference Range Interpretation Comments Neutrophils # (test code = Neutrophils 2.5 1.5-8.1 #) [facility]wallVxrfoqpMKEUUSEWUQ6136-92-96 15:16:00 Test Item Value Reference Range Interpretation Comments Monocytes (test code = Monocytes) 7.1 2.0-12.0 [facility] RockwallJswmgcyTEDXNTDRUD9796-58-43 15:16:00 Test Item Value Reference Range Interpretation Comments Basophils (test code = 0.7 See_Comment [Aut omated message] The Basophils) system which ge nerated this result tra nsmitted reference range : <=1.0. The reference r chasity was not used to int erpret this result as normal/abnormal . [facility] RockwallLjzhoyiCBEUSASVDP8145-99-68 15:16:00 Test Item Value Reference Range Interpretation Comments Eosinophils # (test code 0.1 See_Comment [A utomated message] The = Eosinophils #) system whic h generated this result tra nsmitted reference range : <=0.5. The reference r chasity was not used to int erpret this result as normal/abnormal . [facility] RockwallKqkspucSYQFHBZYEQ6145-75-10 15:16:00 Test Item Value Reference Range Interpretation Comments Monocytes # (test code 0.3 See_Comment [Aut omated message] The = Monocytes #) system which generated this result tra nsmitted reference range : <=0.8. The reference r chasity was not used to int erpret this result as normal/abnormal . [facility]CARBigTeamsAC GYYCKDZ9226-28-27 15:16:00 Test Item Value Reference Range Interpretation Comments Total CK (test code = Total CK) 109 12-191 [facility] [id number] 15:16:00 Test Item Value Reference Range Interpretation Comments proBNP (test code = 64 See_Comment [Automa yariel message] The proBNP) system which ge nerated this result tra nsmitted reference range : <=125. The reference r chasity was not used to int erpret this result as anil l/abnormal. [facility] CenterCHEM AJWTK0742-56-13 15:16:00 Test Item Value Reference Range Interpretation Comments A/G Ratio (test code = A/G Ratio) 1.2 1 0.7-1.6 [place] 547808-09-13 15:16:00 Test Item Value Reference Range Interpretation Comments Globulin (test code = Globulin) 3.3 2.7-4.2 [facility]2018-09-13 15:16:00 Test Item Value Reference Range Interpretation Comments B/C Ratio (test code = B/C Ratio) 16 1 6-25 [place] 547808-09-13 15:16:00 Test Item Value Reference Range Interpretation Comments AGAP (test code = AGAP) 12.0 10.0-20.0 [facility]2018-09-13 15:16:00 Test Item Value Reference Range Interpretation Comments eGFR (test code = eGFR) 83 [facility]2018-09-13 15:16:00 Test Item Value Reference Range Interpretation Comments Bili Total (test code = Bili Total) 0.5 0.2-1.3 [place] 547808-09-13 15:16:00 Test Item Value Reference Range Interpretation Comments Alk Phos (test code = Alk Phos) 82 39-136 [facility]2018-09-13 15:16:00 Test Item Value Reference Range Interpretation Comments ALT (test code = ALT) 28 See_Comment [Auto mated message] The system which ge nerated this result transmit yariel reference range : <=65. The reference range was not used to interpr et this result as anil l/abnormal. [facility]2018-09-13 15:16:00 Test Item Value Reference Range Interpretation Comments AST (test code = AST) 13 See_Comment [Auto mated message] The system which ge nerated this result transmit yariel reference range : <=37. The reference range was not used to interpr et this result as anil l/abnormal. [place] 547808-09-13 15:16:00 Test Item Value Reference Range Interpretation Comments Total Protein (test code = Total 7.1 6.4-8.4 Protein) [place] 547808-09-13 15:16:00 Test Item Value Reference Range Interpretation Comments Calcium Lvl (test code = Calcium Lvl) 9.6 8.5-10.5 [facility]2018-09-13 15:16:00 Test Item Value Reference Range Interpretation Comments CO2 (test code = CO2) 28 24-32 [facility]2018-09-13 15:16:00 Test Item Value Reference Range Interpretation Comments Potassium Lvl (test code = Potassium 4.0 3.5-5.1 Lvl) [facility]2018-09-13 15:16:00 Test Item Value Reference Range Interpretation Comments Chloride Lvl (test code = Chloride Lvl) 110 95-109 [facility]2018-09-13 15:16:00 Test Item Value Reference Range Interpretation Comments Sodium Lvl (test code = Sodium Lvl) 146 135-145 [facility]2018-09-13 15:16:00 Test Item Value Reference Range Interpretation Comments Creatinine Lvl (test code = Creatinine 0.79 0.50-1.40 Lvl) [facility]2018-09-13 15:16:00 Test Item Value Reference Range Interpretation Comments BUN (test code = BUN) 13 7-22 [facility]2018-09-13 15:16:00 Test Item Value Reference Range Interpretation Comments Glucose Lvl (test code = Glucose Lvl) 89 70-99 [facility]2018-09-13 15:16:00 Test Item Value Reference Range Interpretation Comments Albumin Lvl (test code = Albumin Lvl) 3.8 3.5-5.0 [facility]2018-09-13 15:16:00 Test Item Value Reference Range Interpretation Comments Magnesium Lvl (test code = Magnesium 2.3 1.8-2.4 Lvl) [facility]2018-09-13 15:16:00 Test Item Value Reference Range Interpretation Comments Phosphorus (test code = Phosphorus) 3.7 2.5-4.5 [facility] BudaAvkhndgGDXNHXKZHOUIX5559-28-97 15:16:00 Test Item Value Reference Range Interpretation Comments S Preg (test code = S Negative *NA*(04/15/18 Preg) 10:16 AM) [facility]wallGgthuqxIWYVPIFVJE7866-29-67 15:16:00 Test Item Value Reference Range Interpretation Comments WBC (test code = WBC) 4.9 3.7-10.4 [facility] RockwallYahhsndRQFYAZFCXZ2222-68-01 15:16:00 Test Item Value Reference Range Interpretation Comments Hgb (test code = Hgb) 15.2 12.0-16.0 [facility] RockwallJlbgfygUGTKFIBWXJ1556-92-22 15:16:00 Test Item Value Reference Range Interpretation Comments RBC (test code = RBC) 4.61 4.20-5.40 [facility] RockwallFwdhktnILTEHIVBIT1756-84-96 15:16:00 Test Item Value Reference Range Interpretation Comments MCHC (test code = MCHC) 33.6 32.0-36.0 [facility] RockwallTvtjrjaYDFHXGLYYF3042-78-04 15:16:00 Test Item Value Reference Range Interpretation Comments Hct (test code = Hct) 45.3 36.0-48.0 [facility] RockwallQlqilifWVLYSDVLHJ7725-11-28 15:16:00 Test Item Value Reference Range Interpretation Comments MCV (test code = MCV) 98.2 80.0-98.0 [facility] RockwallTpuftgrSBNFMWRVQV9857-00-00 15:16:00 Test Item Value Reference Range Interpretation Comments MCH (test code = MCH) 33.0 pg 27.0-31.0 [facility] RockwallHpbxcamEIYPKGQAZA0693-92-11 15:16:00 Test Item Value Reference Range Interpretation Comments MPV (test code = MPV) 8.8 7.4-10.4 [facility] RockwallVimhawnXSDCNNORRX3334-82-65 15:16:00 Test Item Value Reference Range Interpretation Comments RDW (test code = RDW) 12.6 11.5-14.5 [facility] RockwallZaifegdLAPDPIGQFF6837-89-67 15:16:00 Test Item Value Reference Range Interpretation Comments Platelet (test code = Platelet) 163 133-450 [facility] RockwallUdpfkfwFJPBOLLLKB9713-39-63 15:16:00 Test Item Value Reference Range Interpretation Comments Lymphocytes (test code = Lymphocytes) 39.1 20.0-40.0 [facility] RockwallOksidtaKYHHIRGOXV0592-41-36 15:16:00 Test Item Value Reference Range Interpretation Comments Eosinophils (test code = 2.5 See_Comment [A utomated message] The Eosinophils) system which ge nerated this result tra nsmitted reference range : <=4.0. The reference r chasity was not used to int erpret this result as normal/abnormal . [facility] RockwallLswclojKFGKNHHQZF5506-15-39 15:16:00 Test Item Value Reference Range Interpretation Comments Segs (test code = Segs) 50.6 45.0-75.0 [facility] RockwallNhrwctbLUPAYTBPHY1958-69-82 15:16:00 Test Item Value Reference Range Interpretation Comments Lymphocytes # (test code = Lymphocytes 1.9 1.0-5.5 #) [facility] RockwallAblctgjXIDKDNSIBD2511-91-17 15:16:00 Test Item Value Reference Range Interpretation Comments Neutrophils # (test code = Neutrophils 2.5 1.5-8.1 #) [facility] RockwallHjxomnoAFDENCHWUX1081-84-35 15:16:00 Test Item Value Reference Range Interpretation Comments Monocytes (test code = Monocytes) 7.1 2.0-12.0 [facility] RockwallEdronomJYVSWCHJKB3830-92-27 15:16:00 Test Item Value Reference Range Interpretation Comments Basophils (test code = 0.7 See_Comment [Aut omated message] The Basophils) system which ge nerated this result tra nsmitted reference range : <=1.0. The reference r chasity was not used to int erpret this result as normal/abnormal . [facility] RockwallAstrgshHOYBFMIZVE2619-67-05 15:16:00 Test Item Value Reference Range Interpretation Comments Eosinophils # (test code 0.1 See_Comment [A utomated message] The = Eosinophils #) system whic h generated this result tra nsmitted reference range : <=0.5. The reference r chasity was not used to int erpret this result as normal/abnormal . [facility] RockwallOfokjivARVOETAEMF3299-59-89 15:16:00 Test Item Value Reference Range Interpretation Comments Monocytes # (test code 0.3 See_Comment [Aut omated message] The = Monocytes #) system which generated this result tra nsmitted reference range : <=0.8. The reference r chasity was not used to int erpret this result as normal/abnormal . [facility] [id number] 15:16:00 Test Item Value Reference Range Interpretation Comments Total CK (test code = Total CK) 109 12-191 [facility] [id number] 15:16:00 Test Item Value Reference Range Interpretation Comments proBNP (test code = 64 See_Comment [Automa yariel message] The proBNP) system which ge nerated this result tra nsmitted reference range : <=125. The reference r chasity was not used to int erpret this result as anil l/abnormal. [facility]2018-09-13 15:16:00 Test Item Value Reference Range Interpretation Comments A/G Ratio (test code = A/G Ratio) 1.2 1 0.7-1.6 [place] 547808-09-13 15:16:00 Test Item Value Reference Range Interpretation Comments Globulin (test code = Globulin) 3.3 2.7-4.2 [place] 547808-09-13 15:16:00 Test Item Value Reference Range Interpretation Comments B/C Ratio (test code = B/C Ratio) 16 1 6-25 [place] 547808-09-13 15:16:00 Test Item Value Reference Range Interpretation Comments AGAP (test code = AGAP) 12.0 10.0-20.0 [place] 547808-09-13 15:16:00 Test Item Value Reference Range Interpretation Comments eGFR (test code = eGFR) 83 [facility]2018-09-13 15:16:00 Test Item Value Reference Range Interpretation Comments Bili Total (test code = Bili Total) 0.5 0.2-1.3 [facility]2018-09-13 15:16:00 Test Item Value Reference Range Interpretation Comments Alk Phos (test code = Alk Phos) 82 39-136 [facility]2018-09-13 15:16:00 Test Item Value Reference Range Interpretation Comments ALT (test code = ALT) 28 See_Comment [Auto mated message] The system which ge nerated this result transmit yariel reference range : <=65. The reference range was not used to interpr et this result as anil l/abnormal. [place] 547808-09-13 15:16:00 Test Item Value Reference Range Interpretation Comments AST (test code = AST) 13 See_Comment [Auto mated message] The system which ge nerated this result transmit yariel reference range : <=37. The reference range was not used to interpr et this result as anil l/abnormal. [place] 547808-09-13 15:16:00 Test Item Value Reference Range Interpretation Comments Total Protein (test code = Total 7.1 6.4-8.4 Protein) [place] 547808-09-13 15:16:00 Test Item Value Reference Range Interpretation Comments Calcium Lvl (test code = Calcium Lvl) 9.6 8.5-10.5 [facility]2018-09-13 15:16:00 Test Item Value Reference Range Interpretation Comments CO2 (test code = CO2) 28 24-32 [facility]2018-09-13 15:16:00 Test Item Value Reference Range Interpretation Comments Potassium Lvl (test code = Potassium 4.0 3.5-5.1 Lvl) [facility]2018-09-13 15:16:00 Test Item Value Reference Range Interpretation Comments Chloride Lvl (test code = Chloride Lvl) 110 95-109 [facility]2018-09-13 15:16:00 Test Item Value Reference Range Interpretation Comments Sodium Lvl (test code = Sodium Lvl) 146 135-145 [facility]2018-09-13 15:16:00 Test Item Value Reference Range Interpretation Comments Creatinine Lvl (test code = Creatinine 0.79 0.50-1.40 Lvl) [facility]2018-09-13 15:16:00 Test Item Value Reference Range Interpretation Comments BUN (test code = BUN) 13 7-22 [facility]2018-09-13 15:16:00 Test Item Value Reference Range Interpretation Comments Glucose Lvl (test code = Glucose Lvl) 89 70-99 [facility]2018-09-13 15:16:00 Test Item Value Reference Range Interpretation Comments Albumin Lvl (test code = Albumin Lvl) 3.8 3.5-5.0 [facility]2018-09-13 15:16:00 Test Item Value Reference Range Interpretation Comments Magnesium Lvl (test code = Magnesium 2.3 1.8-2.4 Lvl) [facility]2018-09-13 15:16:00 Test Item Value Reference Range Interpretation Comments Phosphorus (test code = Phosphorus) 3.7 2.5-4.5 [facility] BudaEllomilSDNMIPWZIDRIM9685-83-40 15:16:00 Test Item Value Reference Range Interpretation Comments S Preg (test code = S Negative *NA*(04/15/18 Preg) 10:16 AM) [facility] CenterNkpwnmjINSQVJJUAY9816-27-37 15:16:00 Test Item Value Reference Range Interpretation Comments WBC (test code = WBC) 4.9 3.7-10.4 [facility] RockwallKatabptTMFLYPTQGL6594-10-59 15:16:00 Test Item Value Reference Range Interpretation Comments Hgb (test code = Hgb) 15.2 12.0-16.0 [facility] RockwallGecutspNTXOPNBFJX8222-99-56 15:16:00 Test Item Value Reference Range Interpretation Comments RBC (test code = RBC) 4.61 4.20-5.40 [facility] RockwallZxxzgahRXJELXQIBY9644-22-62 15:16:00 Test Item Value Reference Range Interpretation Comments MCHC (test code = MCHC) 33.6 32.0-36.0 [facility] RockwallRaevgjfCIUSDVTMFJ0370-13-85 15:16:00 Test Item Value Reference Range Interpretation Comments Hct (test code = Hct) 45.3 36.0-48.0 [facility] RockwallZbhzxykAVLYJHNQIL9157-72-64 15:16:00 Test Item Value Reference Range Interpretation Comments MCV (test code = MCV) 98.2 80.0-98.0 [facility] RockwallYslxeqdLAFJUBKRNT7410-07-76 15:16:00 Test Item Value Reference Range Interpretation Comments MCH (test code = MCH) 33.0 pg 27.0-31.0 [facility] RockwallRhaoqbfMMUFAPVQTP4763-37-47 15:16:00 Test Item Value Reference Range Interpretation Comments MPV (test code = MPV) 8.8 7.4-10.4 [facility] RockwallFvqhbrnMDHIVTVFJZ1506-64-87 15:16:00 Test Item Value Reference Range Interpretation Comments RDW (test code = RDW) 12.6 11.5-14.5 [facility] RockwallAseemugDBBNCYFMKW4786-94-11 15:16:00 Test Item Value Reference Range Interpretation Comments Platelet (test code = Platelet) 163 133-450 [facility] RockwallLaopyseVKXVPDEMCM5019-00-81 15:16:00 Test Item Value Reference Range Interpretation Comments Lymphocytes (test code = Lymphocytes) 39.1 20.0-40.0 [facility] RockwallOcsfiueDJUVHGLXPF5864-10-86 15:16:00 Test Item Value Reference Range Interpretation Comments Eosinophils (test code = 2.5 See_Comment [A utomated message] The Eosinophils) system which ge nerated this result tra nsmitted reference range : <=4.0. The reference r chasity was not used to int erpret this result as normal/abnormal . [facility] RockwallUwugovoKDXPUCGSBM2263-71-95 15:16:00 Test Item Value Reference Range Interpretation Comments Segs (test code = Segs) 50.6 45.0-75.0 [facility] RockwallOizhmkhYMDBQJXBMC2772-06-16 15:16:00 Test Item Value Reference Range Interpretation Comments Lymphocytes # (test code = Lymphocytes 1.9 1.0-5.5 #) [facility] RockwallPucawyqRSSNKVUPUG7362-97-21 15:16:00 Test Item Value Reference Range Interpretation Comments Neutrophils # (test code = Neutrophils 2.5 1.5-8.1 #) [facility] RockwallLsnphokAUUQNFGQJR5201-27-04 15:16:00 Test Item Value Reference Range Interpretation Comments Monocytes (test code = Monocytes) 7.1 2.0-12.0 [facility] RockwallRqrffhgZXBXAJBKXN5846-02-83 15:16:00 Test Item Value Reference Range Interpretation Comments Basophils (test code = 0.7 See_Comment [Aut omated message] The Basophils) system which ge nerated this result tra nsmitted reference range : <=1.0. The reference r chasity was not used to int erpret this result as normal/abnormal . [facility] RockwallFdybhqzMYWCHZPBEY0792-39-73 15:16:00 Test Item Value Reference Range Interpretation Comments Eosinophils # (test code 0.1 See_Comment [A utomated message] The = Eosinophils #) system whic h generated this result tra nsmitted reference range : <=0.5. The reference r chasity was not used to int erpret this result as normal/abnormal . [facility] RockwallRkakgzqNFKGMIIBKU8547-19-71 15:16:00 Test Item Value Reference Range Interpretation Comments Monocytes # (test code 0.3 See_Comment [Aut omated message] The = Monocytes #) system which generated this result tra nsmitted reference range : <=0.8. The reference r chasity was not used to int erpret this result as normal/abnormal . [facility]inteDIMUN[facility]ITALENOHWXO1663-20-99 18:17:00 Test Item Value Reference Range Interpretation Comments Troponin-I (test code no gt See_Comment [Auto mated message] The = Troponin-I) system which g enerated this result transmit yariel reference range : <=0.40. The reference r chasity was not used to interpr et this result as anil l/abnormal. [facility]2018-05-14 18:17:00 Test Item Value Reference Range Interpretation Comments Troponin-I (test code no gt See_Comment [Auto mated message] The = Troponin-I) system which g enerated this result transmit yariel reference range : <=0.40. The reference r chasity was not used to interpr et this result as anil l/abnormal. [facility] [employer] [facility]2018-05-14 18:17:00 Test Item Value Reference Range Interpretation Comments Troponin-I (test code no gt See_Comment [Auto mated message] The = Troponin-I) system which g enerated this result transmit yariel reference range : <=0.40. The reference r chasity was not used to interpr et this result as anil l/abnormal. [facility] [facility]2018-05-14 12:22:00 Test Item Value Reference Range Interpretation Comments CK MB Index (test 2.7 1 See_Comment [Automate d message] The code = CK MB Index) system w [facility] generated this result transmit ayriel reference range : <=2.5. The reference range was not used to interpr et this result as anil l/abnormal. [facility] [employer]2018-05-14 12:22:00 Test Item Value Reference Range Interpretation Comments Troponin-I (test code no gt See_Comment [Auto mated message] The = Troponin-I) system which g enerated this result transmit yariel reference range : <=0.40. The reference r chasity was not used to interpr et this result as anil l/abnormal. [facility] [employer]2018-05-14 12:22:00 Test Item Value Reference Range Interpretation Comments Total CK (test code = Total CK) 119 12-191 [facility] [employer]2018-05-14 12:22:00 Test Item Value Reference Range Interpretation Comments CK MB (test code = CK MB) 3.2 0.5-3.6 [facility] [employer] [id number] 12:22:00 Test Item Value Reference Range Interpretation Comments eGFR (test code = eGFR) 87 [facility] [employer] [id number] 12:22:00 Test Item Value Reference Range Interpretation Comments Globulin (test code = Globulin) 3.1 2.7-4.2 [facility]2018-05-14 12:22:00 Test Item Value Reference Range Interpretation Comments Alk Phos (test code = Alk Phos) 78 39-136 [facility]2018-05-14 12:22:00 Test Item Value Reference Range Interpretation Comments AST (test code = AST) 12 See_Comment [Auto mated message] The system which ge nerated this result transmit yariel reference range : <=37. The reference range was not used to interpr et this result as anil l/abnormal. [facility]2018-05-14 12:22:00 Test Item Value Reference Range Interpretation Comments ALT (test code = ALT) 24 See_Comment [Auto mated message] The system which ge nerated this result transmit yariel reference range : <=65. The reference range was not used to interpr et this result as anil l/abnormal. [place] 547808-05-14 12:22:00 Test Item Value Reference Range Interpretation Comments Albumin Lvl (test code = Albumin Lvl) 3.2 3.5-5.0 [facility]2018-05-14 12:22:00 Test Item Value Reference Range Interpretation Comments Total Protein (test code = Total 6.3 6.4-8.4 Protein) [facility]2018-05-14 12:22:00 Test Item Value Reference Range Interpretation Comments CO2 (test code = CO2) 23 24-32 [place] 547808-05-14 12:22:00 Test Item Value Reference Range Interpretation Comments Calcium Lvl (test code = Calcium Lvl) 8.9 8.5-10.5 [place] 547808-05-14 12:22:00 Test Item Value Reference Range Interpretation Comments A/G Ratio (test code = A/G Ratio) 1.0 1 0.7-1.6 [place] 547808-05-14 12:22:00 Test Item Value Reference Range Interpretation Comments AGAP (test code = AGAP) 14.1 10.0-20.0 [place] 547808-05-14 12:22:00 Test Item Value Reference Range Interpretation Comments B/C Ratio (test code = B/C Ratio) 22 1 6-25 [place] 547808-05-14 12:22:00 Test Item Value Reference Range Interpretation Comments Bili Total (test code = Bili Total) 0.2 0.2-1.3 [facility]2018-05-14 12:22:00 Test Item Value Reference Range Interpretation Comments Sodium Lvl (test code = Sodium Lvl) 143 135-145 [place] 547808-05-14 12:22:00 Test Item Value Reference Range Interpretation Comments Chloride Lvl (test code = Chloride Lvl) 110 95-109 [facility]2018-05-14 12:22:00 Test Item Value Reference Range Interpretation Comments Potassium Lvl (test code = Potassium 4.1 3.5-5.1 Lvl) [facility]2018-05-14 12:22:00 Test Item Value Reference Range Interpretation Comments Creatinine Lvl (test code = Creatinine 0.76 0.50-1.40 Lvl) [place] 547808-05-14 12:22:00 Test Item Value Reference Range Interpretation Comments BUN (test code = BUN) 17 7-22 [place] 547808-05-14 12:22:00 Test Item Value Reference Range Interpretation Comments Glucose Lvl (test code = Glucose Lvl) 101 70-99 [facility]SwwwhgnLKMINUFIFL9595-76-12 12:22:00 Test Item Value Reference Range Interpretation Comments Monocytes # (test code 0.4 See_Comment [Aut omated message] The = Monocytes #) system which generated this result tra nsmitted reference range : <=0.8. The reference r chasity was not used to int erpret this result as normal/abnormal . [facility]wallMvwaljlTZXDEZVNIB0137-84-17 12:22:00 Test Item Value Reference Range Interpretation Comments Eosinophils # (test code 0.1 See_Comment [A utomated message] The = Eosinophils #) system whic h generated this result tra nsmitted reference range : <=0.5. The reference r chasity was not used to int erpret this result as normal/abnormal . [facility]wallMmxlhglVCZZBHKICT8148-72-81 12:22:00 Test Item Value Reference Range Interpretation Comments Segs (test code = Segs) 48.7 45.0-75.0 [place] 328598-05-14 12:22:00 Test Item Value Reference Range Interpretation Comments Lymphocytes (test code = Lymphocytes) 39.8 20.0-40.0 [facility] RockwallHlijjiyOPQQKOYWWB3638-11-91 12:22:00 Test Item Value Reference Range Interpretation Comments Monocytes (test code = Monocytes) 8.3 2.0-12.0 [facility] RockwallKeepruoBWHYKHZUAU4761-04-10 12:22:00 Test Item Value Reference Range Interpretation Comments Eosinophils (test code = 2.7 See_Comment [A utomated message] The Eosinophils) system which ge nerated this result tra nsmitted reference range : <=4.0. The reference r chasity was not used to int erpret this result as normal/abnormal . [facility] RockwallBbtzdrrIXEDZOHYYR1307-98-96 12:22:00 Test Item Value Reference Range Interpretation Comments Lymphocytes # (test code = Lymphocytes 2.0 1.0-5.5 #) [facility] RockwallVblgtciYKPDDVBDXX6261-91-60 12:22:00 Test Item Value Reference Range Interpretation Comments Basophils (test code = 0.5 See_Comment [Aut omated message] The Basophils) system which ge nerated this result tra nsmitted reference range : <=1.0. The reference r chasity was not used to int erpret this result as normal/abnormal . [facility] RockwallRqhjrfoACKDBGMWOB8959-37-91 12:22:00 Test Item Value Reference Range Interpretation Comments Segs-Bands # (test code = Segs-Bands #) 2.5 1.5-8.1 [facility] RockwallKetgrddOYRYLEQNBD2623-11-66 12:22:00 Test Item Value Reference Range Interpretation Comments MCHC (test code = MCHC) 33.5 32.0-36.0 [facility] RockwallGikyrcpVANPGCFQBK0145-73-85 12:22:00 Test Item Value Reference Range Interpretation Comments MPV (test code = MPV) 9.2 7.4-10.4 [facility] RockwallGodlebbUSXEKECIPX0303-31-29 12:22:00 Test Item Value Reference Range Interpretation Comments Platelet (test code = Platelet) 133 133-450 [facility] RockwallSciikdoDBYIFXRRTE8742-46-79 12:22:00 Test Item Value Reference Range Interpretation Comments RDW (test code = RDW) 13.0 11.5-14.5 [facility] RockwallQmmrbqqSXEKISFTWP7858-24-86 12:22:00 Test Item Value Reference Range Interpretation Comments MCH (test code = MCH) 32.8 pg 27.0-31.0 [facility] CenterVrgjncdHNNZBVJZCT1080-37-86 12:22:00 Test Item Value Reference Range Interpretation Comments Hct (test code = Hct) 43.1 36.0-48.0 [facility] CenterJeqjpdpBGFXYAFCXH7139-70-16 12:22:00 Test Item Value Reference Range Interpretation Comments Hgb (test code = Hgb) 14.4 12.0-16.0 [facility]le[facility]SCFGBWWJB3003-21-77 12:22:00 Test Item Value Reference Range Interpretation Comments MCV (test code = MCV) 97.9 80.0-98.0 [facility] CenterNmwzwbkOOKMBFDFBO5343-38-96 12:22:00 Test Item Value Reference Range Interpretation Comments RBC (test code = RBC) 4.40 4.20-5.40 [facility] CenterMfzketqNMGKBZJSAL6280-13-86 12:22:00 Test Item Value Reference Range Interpretation Comments WBC (test code = WBC) 5.1 3.7-10.4 [facility] ChildrenMeFe[facility] HMWZOSY7340-80-29 12:22:00 Test Item Value Reference Range Interpretation Comments CK MB Index (test 2.7 1 See_Comment [Automate d message] The code = CK MB Index) system w [facility] generated this result transmit yariel reference range : <=2.5. The reference range was not used to interpr et this result as anil l/abnormal. [facility] 12:22:00 Test Item Value Reference Range Interpretation Comments Troponin-I (test code no gt See_Comment [Auto mated message] The = Troponin-I) system which g enerated this result transmit yariel reference range : <=0.40. The reference r chasity was not used to interpr et this result as anil l/abnormal. [facility] [employer]2018-05-14 12:22:00 Test Item Value Reference Range Interpretation Comments Total CK (test code = Total CK) 119 12-191 [facility] 12:22:00 Test Item Value Reference Range Interpretation Comments CK MB (test code = CK MB) 3.2 0.5-3.6 [facility] [employer]2018-05-14 12:22:00 Test Item Value Reference Range Interpretation Comments eGFR (test code = eGFR) 87 [facility] [employer]2018-05-14 12:22:00 Test Item Value Reference Range Interpretation Comments Globulin (test code = Globulin) 3.1 2.7-4.2 [facility]2018-05-14 12:22:00 Test Item Value Reference Range Interpretation Comments Alk Phos (test code = Alk Phos) 78 39-136 [facility]2018-05-14 12:22:00 Test Item Value Reference Range Interpretation Comments AST (test code = AST) 12 See_Comment [Auto mated message] The system which ge nerated this result transmit yariel reference range : <=37. The reference range was not used to interpr et this result as anil l/abnormal. [facility]2018-05-14 12:22:00 Test Item Value Reference Range Interpretation Comments ALT (test code = ALT) 24 See_Comment [Auto mated message] The system which ge nerated this result transmit yariel reference range : <=65. The reference range was not used to interpr et this result as anil l/abnormal. [facility]2018-05-14 12:22:00 Test Item Value Reference Range Interpretation Comments Albumin Lvl (test code = Albumin Lvl) 3.2 3.5-5.0 [facility]2018-05-14 12:22:00 Test Item Value Reference Range Interpretation Comments Total Protein (test code = Total 6.3 6.4-8.4 Protein) [facility]2018-05-14 12:22:00 Test Item Value Reference Range Interpretation Comments CO2 (test code = CO2) 23 24-32 [facility]2018-05-14 12:22:00 Test Item Value Reference Range Interpretation Comments Calcium Lvl (test code = Calcium Lvl) 8.9 8.5-10.5 [facility]2018-05-14 12:22:00 Test Item Value Reference Range Interpretation Comments A/G Ratio (test code = A/G Ratio) 1.0 1 0.7-1.6 [facility]2018-05-14 12:22:00 Test Item Value Reference Range Interpretation Comments AGAP (test code = AGAP) 14.1 10.0-20.0 [facility]2018-05-14 12:22:00 Test Item Value Reference Range Interpretation Comments B/C Ratio (test code = B/C Ratio) 22 1 6-25 [facility]2018-05-14 12:22:00 Test Item Value Reference Range Interpretation Comments Bili Total (test code = Bili Total) 0.2 0.2-1.3 [facility]2018-05-14 12:22:00 Test Item Value Reference Range Interpretation Comments Sodium Lvl (test code = Sodium Lvl) 143 135-145 [facility]2018-05-14 12:22:00 Test Item Value Reference Range Interpretation Comments Chloride Lvl (test code = Chloride Lvl) 110 95-109 [place] 547808-05-14 12:22:00 Test Item Value Reference Range Interpretation Comments Potassium Lvl (test code = Potassium 4.1 3.5-5.1 Lvl) [facility]2018-05-14 12:22:00 Test Item Value Reference Range Interpretation Comments Creatinine Lvl (test code = Creatinine 0.76 0.50-1.40 Lvl) [facility]2018-05-14 12:22:00 Test Item Value Reference Range Interpretation Comments BUN (test code = BUN) 17 7-22 [facility]2018-05-14 12:22:00 Test Item Value Reference Range Interpretation Comments Glucose Lvl (test code = Glucose Lvl) 101 70-99 [facility]wallVvvzdtvOUZUMICFJA3604-72-45 12:22:00 Test Item Value Reference Range Interpretation Comments Monocytes # (test code 0.4 See_Comment [Aut omated message] The = Monocytes #) system which generated this result tra nsmitted reference range : <=0.8. The reference r chasity was not used to int erpret this result as normal/abnormal . [facility] RockwallTsjvincJRKJEGDRNR9132-29-07 12:22:00 Test Item Value Reference Range Interpretation Comments Eosinophils # (test code 0.1 See_Comment [A utomated message] The = Eosinophils #) system whic h generated this result tra nsmitted reference range : <=0.5. The reference r chasity was not used to int erpret this result as normal/abnormal . [facility] RockwallKbstujzKLATLQMRDT3775-13-87 12:22:00 Test Item Value Reference Range Interpretation Comments Segs (test code = Segs) 48.7 45.0-75.0 [place] 328598-05-14 12:22:00 Test Item Value Reference Range Interpretation Comments Lymphocytes (test code = Lymphocytes) 39.8 20.0-40.0 [facility] RockwallAablkllUINDZMJTNT7690-54-66 12:22:00 Test Item Value Reference Range Interpretation Comments Monocytes (test code = Monocytes) 8.3 2.0-12.0 [facility] RockwallRcvwiwsNIDRMGYAVP1712-46-77 12:22:00 Test Item Value Reference Range Interpretation Comments Eosinophils (test code = 2.7 See_Comment [A utomated message] The Eosinophils) system which ge nerated this result tra nsmitted reference range : <=4.0. The reference r chasity was not used to int erpret this result as normal/abnormal . [facility] RockwallGaalnxoDIEQZHJETK9392-77-70 12:22:00 Test Item Value Reference Range Interpretation Comments Lymphocytes # (test code = Lymphocytes 2.0 1.0-5.5 #) [facility] RockwallUuqjtnpWEGCZZQAUJ5147-78-59 12:22:00 Test Item Value Reference Range Interpretation Comments Basophils (test code = 0.5 See_Comment [Aut omated message] The Basophils) system which ge nerated this result tra nsmitted reference range : <=1.0. The reference r chasity was not used to int erpret this result as normal/abnormal . [facility] RockwallMwhihbvACEKXALIKB6043-39-12 12:22:00 Test Item Value Reference Range Interpretation Comments Segs-Bands # (test code = Segs-Bands #) 2.5 1.5-8.1 [facility] RockwallRrbdqqcIDNBLRZBVG7692-23-26 12:22:00 Test Item Value Reference Range Interpretation Comments MCHC (test code = MCHC) 33.5 32.0-36.0 [facility] RockwallIymtcmpPOHMKBCVLY1269-79-77 12:22:00 Test Item Value Reference Range Interpretation Comments MPV (test code = MPV) 9.2 7.4-10.4 [facility] RockwallRfhsyiwLBHNPULRCK3436-83-21 12:22:00 Test Item Value Reference Range Interpretation Comments Platelet (test code = Platelet) 133 133-450 [facility] RockwallBwrwkvaZYJLMHICFD4366-11-62 12:22:00 Test Item Value Reference Range Interpretation Comments RDW (test code = RDW) 13.0 11.5-14.5 [facility] RockwallZviutmvIQBWXKMJUQ2798-41-68 12:22:00 Test Item Value Reference Range Interpretation Comments MCH (test code = MCH) 32.8 pg 27.0-31.0 [facility] ChildrenYdygmgdGFQLWKQCDJ5823-76-41 12:22:00 Test Item Value Reference Range Interpretation Comments Hct (test code = Hct) 43.1 36.0-48.0 [facility] ChildrenNgjtamoAWSVDZNTND8519-16-24 12:22:00 Test Item Value Reference Range Interpretation Comments Hgb (test code = Hgb) 14.4 12.0-16.0 [facility] CenterYugamnmLGDFNXGSPU1612-07-82 12:22:00 Test Item Value Reference Range Interpretation Comments MCV (test code = MCV) 97.9 80.0-98.0 [facility] ChildrenDukowouARVQLGIEVD1011-34-32 12:22:00 Test Item Value Reference Range Interpretation Comments RBC (test code = RBC) 4.40 4.20-5.40 [facility] ChildrenMpnaujoHVVFNIJOUP7397-96-35 12:22:00 Test Item Value Reference Range Interpretation Comments WBC (test code = WBC) 5.1 3.7-10.4 [facility]Cl[facility] 12:22:00 Test Item Value Reference Range Interpretation Comments CK MB Index (test 2.7 1 See_Comment [Automate d message] The code = CK MB Index) system w [facility] generated this result transmit yariel reference range : <=2.5. The reference range was not used to interpr et this result as anli l/abnormal. [facility] 12:22:00 Test Item Value Reference Range Interpretation Comments Troponin-I (test code no gt See_Comment [Auto mated message] The = Troponin-I) system which g enerated this result transmit yariel reference range : <=0.40. The reference r chasity was not used to interpr et this result as anil l/abnormal. [facility] ChildrenMeFeediaAC FYAZOHA1539-64-85 12:22:00 Test Item Value Reference Range Interpretation Comments Total CK (test code = Total CK) 119 12-191 [facility] ChildrenSyncapse NJQJJLD3967-66-02 12:22:00 Test Item Value Reference Range Interpretation Comments CK MB (test code = CK MB) 3.2 0.5-3.6 [facility] [employer] [id number] 12:22:00 Test Item Value Reference Range Interpretation Comments eGFR (test code = eGFR) 87 [facility]2018-05-14 12:22:00 Test Item Value Reference Range Interpretation Comments Globulin (test code = Globulin) 3.1 2.7-4.2 [facility]2018-05-14 12:22:00 Test Item Value Reference Range Interpretation Comments Alk Phos (test code = Alk Phos) 78 39-136 [facility]2018-05-14 12:22:00 Test Item Value Reference Range Interpretation Comments AST (test code = AST) 12 See_Comment [Auto mated message] The system which ge nerated this result transmit yariel reference range : <=37. The reference range was not used to interpr et this result as anil l/abnormal. [facility]2018-05-14 12:22:00 Test Item Value Reference Range Interpretation Comments ALT (test code = ALT) 24 See_Comment [Auto mated message] The system which ge nerated this result transmit yariel reference range : <=65. The reference range was not used to interpr et this result as anil l/abnormal. [facility]2018-05-14 12:22:00 Test Item Value Reference Range Interpretation Comments Albumin Lvl (test code = Albumin Lvl) 3.2 3.5-5.0 [facility]2018-05-14 12:22:00 Test Item Value Reference Range Interpretation Comments Total Protein (test code = Total 6.3 6.4-8.4 Protein) [facility]2018-05-14 12:22:00 Test Item Value Reference Range Interpretation Comments CO2 (test code = CO2) 23 24-32 [place] 547808-05-14 12:22:00 Test Item Value Reference Range Interpretation Comments Calcium Lvl (test code = Calcium Lvl) 8.9 8.5-10.5 [facility]2018-05-14 12:22:00 Test Item Value Reference Range Interpretation Comments A/G Ratio (test code = A/G Ratio) 1.0 1 0.7-1.6 [facility]2018-05-14 12:22:00 Test Item Value Reference Range Interpretation Comments AGAP (test code = AGAP) 14.1 10.0-20.0 [facility]2018-05-14 12:22:00 Test Item Value Reference Range Interpretation Comments B/C Ratio (test code = B/C Ratio) 22 1 6-25 [place] 547808-05-14 12:22:00 Test Item Value Reference Range Interpretation Comments Bili Total (test code = Bili Total) 0.2 0.2-1.3 [place] 547808-05-14 12:22:00 Test Item Value Reference Range Interpretation Comments Sodium Lvl (test code = Sodium Lvl) 143 135-145 [place] 547808-05-14 12:22:00 Test Item Value Reference Range Interpretation Comments Chloride Lvl (test code = Chloride Lvl) 110 95-109 [place] 547808-05-14 12:22:00 Test Item Value Reference Range Interpretation Comments Potassium Lvl (test code = Potassium 4.1 3.5-5.1 Lvl) [facility]2018-05-14 12:22:00 Test Item Value Reference Range Interpretation Comments Creatinine Lvl (test code = Creatinine 0.76 0.50-1.40 Lvl) [facility]2018-05-14 12:22:00 Test Item Value Reference Range Interpretation Comments BUN (test code = BUN) 17 7-22 [place] 547808-05-14 12:22:00 Test Item Value Reference Range Interpretation Comments Glucose Lvl (test code = Glucose Lvl) 101 70-99 [facility] RockwallRfhxbayJOUGWCAWZX5147-83-72 12:22:00 Test Item Value Reference Range Interpretation Comments Monocytes # (test code 0.4 See_Comment [Aut omated message] The = Monocytes #) system which generated this result tra nsmitted reference range : <=0.8. The reference r chasity was not used to int erpret this result as normal/abnormal . [facility] RockwallPxynvphXHHPEYFMUA3129-08-80 12:22:00 Test Item Value Reference Range Interpretation Comments Eosinophils # (test code 0.1 See_Comment [A utomated message] The = Eosinophils #) system whic h generated this result tra nsmitted reference range : <=0.5. The reference r chasity was not used to int erpret this result as normal/abnormal . [facility] RockwallPspzlysLXARFUUIQL3021-14-96 12:22:00 Test Item Value Reference Range Interpretation Comments Segs (test code = Segs) 48.7 45.0-75.0 [facility] RockwallHmvmcgvDDJAKUKVME0870-12-79 12:22:00 Test Item Value Reference Range Interpretation Comments Lymphocytes (test code = Lymphocytes) 39.8 20.0-40.0 [facility] RockwallOfixusxDUJWSLHTOW2011-30-35 12:22:00 Test Item Value Reference Range Interpretation Comments Monocytes (test code = Monocytes) 8.3 2.0-12.0 [facility] RockwallGfcjubzVYGZLDFEGF3166-40-44 12:22:00 Test Item Value Reference Range Interpretation Comments Eosinophils (test code = 2.7 See_Comment [A utomated message] The Eosinophils) system which ge nerated this result tra nsmitted reference range : <=4.0. The reference r chasity was not used to int erpret this result as normal/abnormal . [facility] RockwallLlixszhEUOJMOENXO9953-88-44 12:22:00 Test Item Value Reference Range Interpretation Comments Lymphocytes # (test code = Lymphocytes 2.0 1.0-5.5 #) [facility] RockwallGfvksqsMJHHTKPSEY1946-33-94 12:22:00 Test Item Value Reference Range Interpretation Comments Basophils (test code = 0.5 See_Comment [Aut omated message] The Basophils) system which ge nerated this result tra nsmitted reference range : <=1.0. The reference r chasity was not used to int erpret this result as normal/abnormal . [facility] RockwallKnswgweAXIFAHDYTF6790-32-12 12:22:00 Test Item Value Reference Range Interpretation Comments Segs-Bands # (test code = Segs-Bands #) 2.5 1.5-8.1 [facility] RockwallZhztionHYJZAPNTZK6921-37-23 12:22:00 Test Item Value Reference Range Interpretation Comments MCHC (test code = MCHC) 33.5 32.0-36.0 [facility] RockwallJrbymtqTEABRXOFBA3173-95-20 12:22:00 Test Item Value Reference Range Interpretation Comments MPV (test code = MPV) 9.2 7.4-10.4 [facility] RockwallCckuruvGUFFMSYJSA6289-26-76 12:22:00 Test Item Value Reference Range Interpretation Comments Platelet (test code = Platelet) 133 133-450 [facility] RockwallQnkpkdpUXIWTAVKQV7430-26-47 12:22:00 Test Item Value Reference Range Interpretation Comments RDW (test code = RDW) 13.0 11.5-14.5 [facility] RockwallEasjmenOEPSKVQRIG3369-57-43 12:22:00 Test Item Value Reference Range Interpretation Comments MCH (test code = MCH) 32.8 pg 27.0-31.0 [facility] [id number] 12:22:00 Test Item Value Reference Range Interpretation Comments Hct (test code = Hct) 43.1 36.0-48.0 [id number] 12:22:00 Test Item Value Reference Range Interpretation Comments Hgb (test code = Hgb) 14.4 12.0-16.0 [id number] 12:22:00 Test Item Value Reference Range Interpretation Comments MCV (test code = MCV) 97.9 80.0-98.0 [id number] 12:22:00 Test Item Value Reference Range Interpretation Comments RBC (test code = RBC) 4.40 4.20-5.40 [id number] 12:22:00 Test Item Value Reference Range Interpretation Comments WBC (test code = WBC) 5.1 3.7-10.4 [facility]
[2022-12-08 15:37] LABS: Specific Gravity 1.021 (1.005-1.030); Urine Bacteria None Seen /HPF (<20); Urine Bilirubin NEGATIVE (Negative); Urine Blood Negative (Negative); Urine Clarity Clear (Clear); Urine Color Yellow (Yellow); Urine Glucose NEGATIVE (Negative); Urine Mucus Slight /HPF (None Seen); Urine Protein TRACE (Negative); Urine Urobilinogen 4+ (Over) (Normal); Urine pH 6.5 (5.0-7.0)
--- NOTE | 2022-12-08 15:59 | RAD REPORT ---
EXAM DESCRIPTION: RADChest Single View12/08/2022 2:16 pm CLINICAL HISTORY: CHEST PAIN COMPARISON: Chest Single View dated 11/28/2022; Chest Single View dated 09/16/2022; Chest Single View dated 04/10/2022; Chest Single View dated 01/21/2020 TECHNIQUE: Portable AP view of the chest. FINDINGS: The lungs are clear. No pneumothorax or effusion. The cardiomediastinal contours are unrem arkable. IMPRESSION: No acute cardiopulmonary process.
--- NOTE | 2022-12-08 17:49 | RAD REPORT ---
EXAM DESCRIPTION: CT - Abdomen Pelvis Wo Contrast - 12/08/2022 5:00 pm CLINICAL HISTORY: ABD PAIN COMPARISON: No comparisons TECHNIQUE: Thin cut axial CT imaging of the abdomen and pelvis was performed without IV contrast. Mu ltiplanar reformats were generated and reviewed. All CT scans are performed using dose optimization technique as appropriate and may include automated exposure control or mA/KV adjustment according to patient size. FINDINGS: No suspicious findings in the lung bases. The liver, spleen, and pancreas show no suspicious findings. Status post cholecystectomy. No evidence of intra or extrahepatic biliary ductal dilation. Symmetric renal contour, without suspicious parenchymal findings within limits of noncontrast techniq ue. No evidence of radiopaque calculi or hydroureteronephrosis. Dilated upper abdominal jejunal loops with air-fluid levels. Wall thickening along a relatively decom pressed small bowel loop in the central abdomen just above the level of the umbilicus, series 203, im age 89, within adjacent ill-defined accumulation of fluid and gas suggesting a small contained perfor ation, with the ill-defined early collection measuring 1.6 x 1.6 x 2.2 Centimeter. Adjacent edematous changes in the central mesenteric. No evidence of free air. No free fluid or appreciable ascites. No hernia, mass or bulky lymphadenopathy. The urinary bladder is without significant finding. No suspicious bony findings. IMPRESSION: Contained small bowel perforation, likely relating to distal jejunum, in the anterior ab domen just supraumbilical and left of midline, with an ill-defined collection measuring 2.2 centimete r in greatest dimension. Adjacent small bowel loops demonstrating ileus. The findings were communicated to Agustín Garcia on 12/08/2022 at 17:43 hours.
[2022-12-08 17:59] LABS: Absolute Lymphocytes (CBC) 1.2 K/uL (0.7-4.9); Hematocrit 43.2 % (36.0-45.0); Lymphocytes % 15.4 % (15.3-44.8); MCV 100.8 fL (80-100); MPV 8.4 fL (7.6-11.3); RBC Red Blood Cell Count 4.29 M/uL (3.86-4.86)
--- NOTE | 2022-12-08 18:55 | ER ---
Nurse's Notes [facility] Name: Rhona Ladd Age: 62 yrs Sex: Female : 1960 Arrival Date: 12/08/2022 Time: 11:31 Bed Treatment Private MD: Diagnosis: Abdominal pain, Generalized;Upper abdominal pain, unspecified;Perforated small bowel Presentation: 12/08 13:04 Chief complaint: Patient states: she was recently in the hospital for a COPD ap3 exacerbation, and is now having left sided abdominal pain. Patient reports a recent fever on 12/06/2022. patient reports her pain to currently be 9/10 on the pain scale. Coronavirus screen: At this time, the client does not indicate any symptoms associated with coronavirus-19. Ebola Screen: No symptoms or risks identified at this time. Initial Sepsis Screen: Does the patient meet any 2 criteria? No. Patient's initial sepsis screen is negative. Does the patient have a suspected source of infection? Yes: Acute abdominal pain. Risk Assessment: Do you want to hurt yourself or someone else? Patient reports no desire to harm self or others. Onset of symptoms was December 01, 2022. 13:04 Method Of Arrival: Ambulatory ap3 13:04 Acuity: CHON 3 ap3 Triage Assessment: 13:06 General: Appears uncomfortable, Behavior is calm, cooperative, appropriate for age. ap3 Pain: Complains of pain in abdomen. Neuro: Level of Consciousness is awake, alert, obeys commands, Oriented to person, place, time, situation. Cardiovascular: Patient's skin is warm and dry. Respiratory: Airway is patent Respiratory effort is even, unlabored, Respiratory pattern is regular, symmetrical. GI: Reports lower abdominal pain, upper abdominal pain. Historical: - Allergies: 13:06 Bactrim; ap3 13:06 Morphine; ap3 13:06 Soma; ap3 - PMHx: 13:06 Asthma; Hypertension; ap3 - PSHx: 13:06 Appendectomy; section; Cholecystectomy; ap3 - Immunization history:: Client reports receiving the 2nd dose of the Covid vaccine. - Social history:: Smoking status: Patient denies any tobacco usage or history of. Screenin:07 Abuse screen: Denies threats or abuse. Nutritional screening: No deficits noted. ap3 Tuberculosis screening: No symptoms or risk factors identified. 15:38 [facility] ED Fall Risk Assessment (Adult) History of falling in the last 3 months, mb9 including since admission No falls in past 3 months (0 pts) Confusion or Disorientation No (0 pts) Intoxicated or Sedated No (0 pts) Impaired Gait No (0 pts) Mobility Assist Device Used No (0 pt) Altered Elimination No (0 pt) Score/Fall Risk Level 0 - 2 = Low Risk Oriented to surroundings, Maintained a safe environment, Educated pt \T\ family on fall prevention, incl call for assistance when getting out of bed. Assessment: 15:38 Reassessment: pt brought back to ER room. mb9 15:49 General:. mb9 19:36 Reassessment: Gave report to OR luis Castro RN. mb9 Vital Signs: 13:04 BP 121 / 76; Pulse 82; Resp 17; Temp 98.9; Pulse Ox 94% ; Weight 88.45 kg; Height 5 ft. ap3 9 in. ; Pain 9/10; 15:48 BP 138 / 62; Pulse 72; Resp 18; Pulse Ox 95% on R/A; Pain 8/10; mb9 18:00 BP 137 / 66; Pulse 70; Resp 16; Pulse Ox 96% on R/A; mb9 13:04 Body Mass Index 28.80 (88.45 kg, 175.26 cm) ap3 13:04 Pain Scale: Adult ap3 15:48 Pain Scale: Adult mb9 ED Course: 12:07 Patient arrived in ED. am2 12:37 Frank Jimenez MD is Attending Physician. kdr 13:06 Triage completed. ap3 13:07 Arm band placed on right wrist. ap3 14:16 XRAY Chest (1 view) In Process Unspecified. EDMS 15:38 Geetha Lancaster RN is Primary Nurse. mb9 15:38 Placed in gown. Bed in low position. Call light in reach. Side rails up X 1. Client mb9 placed on continuous cardiac and pulse oximetry monitoring. NIBP monitoring applied. 15:38 No provider procedures requiring assistance completed. mb9 17:01 CT Abd/Pelvis - Without Contrast In Process Unspecified. EDMS 18:00 Inserted saline lock: 20 gauge in left forearm, using aseptic technique. mb9 18:00 Chem 7 Sent. mb9 18:00 CBC with Diff Sent. mb9 18:54 Denys Bailon is Hospitalizing Provider. kdr 19:37 Patient admitted, IV remains in place. mb9 Administered Medications: 19:10 Drug: Piperacillin-Tazobactam IVPB 3.375 grams Route: IVPB; Infused Over: 60 mins; mb9 Site: left forearm; 19:28 Drug: Lactated Ringers Solution IV 1000 ml Route: IV; Rate: 125 ml/hr; Site: left mb9 forearm; 19:36 Not Given (Physician Discretion): HYDROmorphone IVP 1 mg IVP once mb9 Medication: 15:39 VIS not applicable for this client. mb9 Outcome: 18:55 Decision to Hospitalize by Provider. kdr 19:36 Admitted to OR accompanied by nurse, with chart. mb9 19:36 Condition: stable 19:36 Instructed on the need for admit. 19:43 Patient left the ED. kd3 Signatures: Dispatcher [employer] EDMS Frank Jimenez MD MD kdr Danii Macias Amanda RN RN ap3 Jneny Guzman RN RN kd3 Geetha Lancaster RN RN mb9
--- NOTE | 2022-12-08 18:56 | EDPHYS ---
Physician Documentation [facility] Name: Rhona Ladd Age: 62 yrs Sex: Female : 1960 Arrival Date: 12/08/2022 Time: 11:31 Bed Treatment Private MD: ED Physician Frank Jimenez HPI: 12/08 16:48 This 62 yrs old Female presents to ER via Ambulatory with complaints of left side pain. kdr 16:48 Patient was recently hospitalized for COPD exacerbation. She was discharged Thursday. kdr Prior to discharge she began to have left upper quadrant and left flank pain primarily when she coughs. In the intervening. The pain is progressively worsened. While at rest and remaining still she has minimal to moderate pain. However when she coughs or takes a deep breath or pain is much worse. She feels like the pain overall is getting progressively worse over the last week.. Onset: The symptoms/episode began/occurred gradually, 1 week(s) ago. Severity of symptoms: At their worst the symptoms were mild moderate just prior to arrival, in the emergency department the symptoms are unchanged. The patient has not experienced similar symptoms in the past. The patient has been recently been admitted at [facility], was discharged last week. Historical: - Allergies: 13:06 Bactrim; ap3 13:06 Morphine; ap3 13:06 Soma; ap3 - PMHx: 13:06 Asthma; Hypertension; ap3 - PSHx: 13:06 Appendectomy; section; Cholecystectomy; ap3 - Immunization history:: Client reports receiving the 2nd dose of the Covid vaccine. - Social history:: Smoking status: Patient denies any tobacco usage or history of. ROS: 16:48 Constitutional: Negative for fever, chills, and weight loss, Eyes: Negative for injury, kdr pain, redness, and discharge, ENT: Negative for injury, pain, and discharge, Neck: Negative for injury, pain, and swelling, Cardiovascular: Negative for chest pain, palpitations, and edema, Respiratory: Negative for shortness of breath, cough, wheezing, and pleuritic chest pain, Back: Negative for injury and pain, : Negative for injury, bleeding, discharge, and swelling, MS/Extremity: Negative for injury and deformity, Skin: Negative for injury, rash, and discoloration, Neuro: Negative for headache, weakness, numbness, tingling, and seizure activity. 16:48 Abdomen/GI: Positive for nausea, abdominal cramps, Negative for abdominal pain, diarrhea, constipation, abdominal distension, black/tarry stool, rectal pain, rectal bleeding, bowel incontinence. Exam: 16:48 Constitutional: This is a well developed, well nourished patient who is awake, alert, kdr and in no acute distress. Head/Face: Normocephalic, atraumatic. Eyes: Pupils equal round and reactive to light, extra-ocular motions intact. Lids and lashes normal. Conjunctiva and sclera are non-icteric and not injected. Cornea within normal limits. Periorbital areas with no swelling, redness, or edema. Neck: Trachea midline, no thyromegaly or masses palpated, and no cervical lymphadenopathy. Supple, full range of motion without nuchal rigidity, or vertebral point tenderness. No Meningismus. Chest/axilla: Normal chest wall appearance and motion. Nontender with no deformity. No lesions are appreciated. Cardiovascular: Regular rate and rhythm with a normal S1 and S2. No gallops, murmurs, or rubs. Normal PMI, no JVD. No pulse deficits. Respiratory: Lungs have equal breath sounds bilaterally, clear to auscultation and percussion. No rales, rhonchi or wheezes noted. No increased work of breathing, no retractions or nasal flaring. Back: No spinal tenderness. No costovertebral tenderness. Full range of motion. Skin: Warm, dry with normal turgor. Normal color with no rashes, no lesions, and no evidence of cellulitis. MS/ Extremity: Pulses equal, no cyanosis. Neurovascular intact. Full, normal range of motion. Neuro: Awake and alert, GCS 15, oriented to person, place, time, and situation. Cranial nerves II-XII grossly intact. Motor strength 5/5 in all extremities. Sensory grossly intact. Cerebellar exam normal. Normal gait. Psych: Awake, alert, with orientation to person, place and time. Behavior, mood, and affect are within normal limits. 16:48 Abdomen/GI: Inspection: obese Bowel sounds: diminished, in all quadrants. Vital Signs: 13:04 BP 121 / 76; Pulse 82; Resp 17; Temp 98.9; Pulse Ox 94% ; Weight 88.45 kg; Height 5 ft. ap3 9 in. ; Pain 9/10; 15:48 BP 138 / 62; Pulse 72; Resp 18; Pulse Ox 95% on R/A; Pain 8/10; mb9 18:00 BP 137 / 66; Pulse 70; Resp 16; Pulse Ox 96% on R/A; mb9 13:04 Body Mass Index 28.80 (88.45 kg, 175.26 cm) ap3 13:04 Pain Scale: Adult ap3 15:48 Pain Scale: Adult mb9 MDM: 16:48 Data reviewed: vital signs, nurses notes, lab test result(s), radiologic studies. kdr 18:55 Patient medically screened. kdr 12/08 12:57 Order name: Urinalysis w/ reflexes; Complete Time: 16:29 kdr 12/08 15:58 Order name: CBC with Diff; Complete Time: 18:39 kdr 12/08 15:58 Order name: Chem 7; Complete Time: 18:39 kdr 12/08 13:11 Order name: XRAY Chest (1 view); Complete Time: 16:29 ap3 12/08 15:58 Order name: CT Abd/Pelvis - Without Contrast; Complete Time: 17:58 kdr 12/08 18:00 Order name: IV Saline Lock; Complete Time: 18:00 mb9 12/08 19:11 Order name: EKG - Nurse/Tech; Complete Time: 19:28 mb9 Administered Medications: 19:10 Drug: Piperacillin-Tazobactam IVPB 3.375 grams Route: IVPB; Infused Over: 60 mins; mb9 Site: left forearm; 19:28 Drug: Lactated Ringers Solution IV 1000 ml Route: IV; Rate: 125 ml/hr; Site: left mb9 forearm; 19:36 Not Given (Physician Discretion): HYDROmorphone IVP 1 mg IVP once mb9 Disposition Summary: 12/08/22 18:55 Hospitalization Ordered Hospitalization Status: Inpatient Admission kdr Provider: Denys Bailon Condition: Serious kdr Problem: new kdr Symptoms: are unchanged kdr Bed/Room Type: Standard kdr Location: Operating Room(12/08/22 19:06) mw Room Assignment: (12/08/22 19:06) mw Diagnosis - Abdominal pain, Generalized kdr - Upper abdominal pain, unspecified kdr - Perforated small bowel kdr Forms: - Medication Reconciliation Form kdr - SBAR form kdr Signatures: Dispatcher [employer] Alta Armenta RN RN mw Frank Jimenez MD MD kdr Attema, Lee, MIKA-C [id number] Danii Marquez RN RN ap3 Tonny, Geetha Cartagena RN RN mb9 Corrections: (The following items were deleted from the chart) 19: 18:55 Intensive Care Unit [facility] 19: 18:55 [facility]
[2022-12-08] MEDS ORDERED: NA CHLORIDE 0.9% 100 ML ONE (19:08)
[2022-12-08] MEDS ORDERED: PIPERACIL/TAZO 3.375 GM VIAL IV ONE (19:08)
[2022-12-08] MEDS ORDERED: Ringers Lactate 1,000 ML IV ONE ×3 (19:21→22:59)
--- NOTE | 2022-12-08 19:40 | P.CNS ---
Date of Consult: 12/08/22 PC: I was asked to see this 62-year-old female in the emergency room in regards to a perforation of her small bowel with abscess. HPC: Patient was in the hospital last week. She had an exacerbation of her COPD. Somewhere during that time. She said she coughed and she thought she felt something tear. She has been at home for the last few days however she has noticed that she has had left sided abdominal pain just lateral to her bellybutton. This pain has intensified. She has been nauseous and unable to keep anything down. She finally, after being convinced by her , came to the emergency room for evaluation and treatment. PSHx: Previous , appendectomy, cholecystectomy [laparoscopic] PMHx: COPD [patient of Dr. Guy] asthma, hypertension [recently had a cardiac stress test with Dr. Alvarado and did well] Social Hx: Allergic to morphine, Soma, and Bactrim Sys R: States that her breathing is much better at this current time. No chest pain or palpitations. Has been having bowel movements, but minimal appetite and just is increasing abdominal pain. Has been making urine, but notices been getting darker over the last few days. O/E: Awake alert uncomfortable HEENT: Not jaundiced Chest: Chest movement equal bilaterally Abd: Patient has marked guarding and rebound just to the left of the umbilicus. Wake: Intact Data: Normal white count but has increased neutrophils. CT scan shows perforation of small bowel with small what appears to be contained abscess. Impression: Perforated small bowel Plan: I will taken the operating room for exploratory laparotomy, drainage of intra-abdominal abscess, and probable small bowel resection. The risks of this procedure have been discussed. The possibility of bleeding, infection, nonhealing of intestinal anastomosis, sepsis, wound infection, and need for further surgeries and procedures. She understands and wants us to proceed. Her is here as well.
--- NOTE | 2022-12-08 19:49 | P.HP ---
Certification for Inpatient Patient admitted to: Inpatient With expected LOS: >2 Midnights Patient will require the following post-hospital care: None Practitioner: I am a practitioner with admitting privileges, knowledge of patient current condition, hospital course, and medical plan of care. Services: Services provided to patient in accordance with Admission requirements found in Title 42 Section 412.3 of the Code of Federal Regulations Patient History Date of Service: 12/08/22 Reason for admission: Bowel perforation History of Present Illness: 62-year-old female with history of asthma, COPD presents to the emergency department with chief complaint of left-sided abdominal pain. She reports her pain began approximately 1 week ago worse throughout the week, she began running having chills on Thursday the , has been nauseous this whole week with poor oral intake. She is having significant generalized abdominal pain at this time. She was evaluated here in the emergency department her labs were significant for platelets [address] abdomen pelvis with IV contrast was performed which revealed contained small bowel perforation likely related to distal jejunum in the anterior abdomen just supraumbilical and left of midline with an ill-defined collection measuring 2.2 cm in the greatest dimension. Adjacent small bowel loops demonstrating ileus. ED physician spoke with general surgery who plans to take patient to the operating room this evening, she was given IV antibioticsZosyn in ED. Will admit to ICU after surgery per surgeon. Allergies carisoprodol [From Soma] Allergy (Unknown, Verified 11/28/22 22:48) Itching morphine Allergy (Unknown, Verified 11/28/22 22:48) Itching sulfamethoxazole [From Bactrim] Allergy (Unknown, Verified 11/28/22 22:48) Itching trimethoprim [From Bactrim] Allergy (Unknown, Verified 11/28/22 22:48) Itching Home Medications: Amlodipine [Norvasc*] 10 mg PO BEDTIME 11/28/22 Aspirin 81 mg PO DAILY 11/28/22 Citalopram [Celexa*] 10 mg PO BEDTIME 11/28/22 Gabapentin 300 mg PO BID 11/28/22 Losartan Potassium [Cozaar] 100 mg PO DAILY 11/28/22 Albuterol Sulfate [Albuterol Sulfate Hfa] 2 puff IH Q6H PRN #1 inhaler 11/30/22 Azithromycin Tab [Zithromax*] 250 mg PO BEDTIME 3 Days #3 tab 11/30/22 Fluticasone/Salmeterol [Advair Hfa 115-21 Mcg Inhaler] 2 puff IH BID #1 inhaler 11/30/22 predniSONE [Prednisone] 20 mg PO BID 5 Days #10 tab 11/30/22 - Past Medical/Surgical History Diabetic: No -: Factor V blood disorder -: Asthma -: COPD -: HTN -: Appendectomy 1971 -: 1977, 1978 -: Partial hysterectomy 1981 -: Ovary removal 1995 -: Cholecystetomy 2015 -: Hip fracture repair with pin placement 2016 Psychosocial/ Personal History: Lives at home with family - Family History Mother -: Heart disease, Hypertension, Diabetes Brother -: Hypertension Father -: Heart disease, Hypertension, Diabetes - Social History Smoking Status: Never smoker Alcohol use: No CD- Drugs: No Caffeine use: No Place of Residence: Home Review of Systems 10-point ROS is otherwise unremarkable Gastrointestinal: Nausea, Abdominal Pain Physical Examination - Physical Exam General: Alert, In no apparent distress, Oriented x3 HEENT: Atraumatic, PERRLA, Mucous membr. moist/pink, EOMI, Sclerae nonicteric Neck: Supple, 2+ carotid pulse no bruit, No LAD, Without JVD or thyroid abnormality Respiratory: Clear to auscultation bilaterally, Normal air movement Cardiovascular: Regular rate/rhythm, Normal S1 S2 Capillary refill: <2 Seconds Gastrointestinal: Normal bowel sounds, Tenderness (Moderate generalized abd tenderness) Musculoskeletal: No tenderness Integumentary: No rashes Neurological: Normal speech, Normal strength at 5/5 x4 extr, Normal tone, Normal affect - Studies Laboratory Data (last 24 hrs) 12/08/22 17:51: Sodium 137, Potassium 4.0, BUN 12, Creatinine 0.83, Glucose 104 12/08/22 17:51: WBC 7.70, Hgb 14.3, Hct 43.2, Plt Count 140 L Assessment and Plan - Plan Assessment: Small bowel perforation Asthma Hypertension Plan: Small bowel perforation N.p.o., plan for surgical intervention tonight, being brought to the OR now. Given broad-spectrum antibiotics with Zosyn, as needed pain medications. Further management per surgery. Asthma As needed nebulizer treatments. Hypertension Hold oral antihypertensive medicines. DVT PPX: SCD Code status: Full Discharge Plan: Home Plan to discharge in: Greater than 2 days - Advance Directives Does patient have a Living Will: No Does patient have a Durable POA for Healthcare: No - Code Status/Comfort Care Code Status Assessed: Yes (Full code) Critical Care: No Time Spent Managing Pts Care (In Minutes): 55
[2022-12-08] MEDS ORDERED: SUCCINYLCHOLINE 20 MG/ML (10 ML) IV ONE (20:22)
[2022-12-08] MEDS ORDERED: propofoL 200 MG/20 ML VIAL IV ONE (20:25)
[2022-12-08] MEDS ORDERED: ROCURONIUM 50 MG/5 ML VIAL IV ONE (20:25)
[2022-12-08] MEDS ORDERED: FENTANYL CITR 100 MCG/2 ML ONE (20:25)
[2022-12-08] MEDS ORDERED: MIDAZOLAM HCL 2 MG/2 ML INJ ONE (20:25)
[2022-12-08] MEDS ORDERED: dexAMETHasone 10 MG/ML VIAL ONE (21:19)
[2022-12-08] MEDS ORDERED: ONDANSETRON 4 MG/2 ML VIAL ONE ×2 (22:00→22:24)
[2022-12-08] MEDS ORDERED: NEOSTIGMINE 1 MG/ML -10 ML VIAL ONE (22:01)
[2022-12-08] MEDS ORDERED: GLYCOPYRROLATE 0.2 MG/ML SYR ONE (22:01)
--- NOTE | 2022-12-08 22:09 | P.OP ---
Preoperative diagnosis: Perforated small bowel, peritonitis Postoperative diagnosis: The same Primary procedure: Exploratory laparotomy Secondary procedure: Small bowel resection Other procedure(s): Primary anastomosis Anesthesia: General Estimated blood loss: Less than 30 cc Specimen: 1 gross specimen of pathology, 2 anastomotic ends Operative Technique: The patient brought to the operating room placed supine on the table. After the induction of adequate general endotracheal anesthesia, the area of the abdomen was prepped with a DuraPrep solution, and she was draped in usual aseptic manner. A Carr catheter had been inserted. A generous midline incision was made. This was brought down through the skin and subcutaneous tissue. The fascia was served in the midline. This was opened for the full length of our incision. At this point we were able to place the hand into the abdominal cavity. We could see that the omentum was adherent to the anterior abdominal wall in the lower portion of our incision. The omentum was detached from the anterior abdominal wall and mobilized. This allowed us to delivered up into the wound and reflected towards the head. We could now see the small bowel. It became immediately apparent that there was a loop of small bowel, consistent with the findings on the CT scan, that showed obvious abscess that appeared to be contained. This area of the bowel was approximately 20 inches from the ligament of Treitz. This area was resected by using the PHYLLIS. The bowel having been transected, the mesentery was then taken down using the LigaSure. These 2 ends were then brought back together and we constructed a [id number] functional end-to-end anastomosis. The first 1 the anastomosis was too small as we used a 60 PHYLLIS. This anastomosis was redone going down to fresh tissue and it was reconstructed [id number] functional end and within 80 PHYLLIS. We had a good obvious stoma between the 2 limbs where we had establish continuity. The mesentery defect was now approximated with a running suture of chromic. A hand was placed into the peritoneal cavity. Once again we went down into the true pelvis no other gross pathology was noted at this time. The small bowel was delivered back into her incision. The omentum was placed down over the small bowel. The midline incision was then closed with a running suture of nylon. The skin was approximated with griselda. At the end of the procedure the patient was in a stable condition was sent to the recovery room. Needle sponge instrument count were correct. No drains were placed. Complications: None Drain(s): Urinary catheter Transferred to: Recovery Room Condition: Good
[2022-12-08] MEDS: FENTANYL CITR 100 MCG/2 ML ONE ×3 (22:25→22:40)
[2022-12-08] MEDS ORDERED: KETOROLAC 30 MG/ML INJ ONE (22:29)
[2022-12-08] MEDS: HYDROMORPHONE HCL 1 MG/ML INJ ONE ×2 (22:50→22:55)
[2022-12-08] MEDS: PIPER TAZO 3.375 GM in NA CHLORIDE 0.9% 100 ML IV SCH (23:45)
[2022-12-08] MEDS: Ringers Lactate 1,000 ML IV SCH (23:45)
[2022-12-08] MEDS: HYDROMORPHONE HCL 1 MG/ML INJ IV PRN (23:49)
[2022-12-09 05:13] LABS: Absolute Lymphocytes (CBC) 0.4 K/uL (0.7-4.9); Hematocrit 39.3 % (36.0-45.0); Lymphocytes % 2.7 % (15.3-44.8); MCV 101.4 fL (80-100); MPV 8.6 fL (7.6-11.3); RBC Red Blood Cell Count 3.87 M/uL (3.86-4.86)
[2022-12-09 05:28] LABS: Albumin 2.3 g/dL (3.4-5.0); Bilirubin Total 1.6 mg/dL (0.2-1.0); Potassium 4.9 mEq/L (3.5-5.1); Protein, Total 5.9 g/dL (6.4-8.2)
[2022-12-09 06:14] LABS: Blood Morphology Comment NOT SEEN (NOT SEEN); Platelet Estimate ADEQ
[2022-12-09] MEDS: Ringers Lactate 1,000 ML IV SCH ×3 (06:30→19:42)
[2022-12-09] MEDS: PIPER TAZO 3.375 GM in NA CHLORIDE 0.9% 100 ML IV SCH ×2 (07:53→16:00)
[2022-12-09] MEDS: HYDROMORPHONE HCL 1 MG/ML INJ IV PRN ×4 (10:23→23:20)
[2022-12-09] MEDS: ALBUTEROL 2.5 MG/3 ML NEB SOL NEB SCH ×3 (13:10→20:00)
[2022-12-09] MEDS: IPRATROPIUM BROM 0.5MG/2.5ML NEB SCH ×3 (13:10→20:00)
--- NOTE | 2022-12-09 15:34 | P.PN ---
Date of Service: 12/09/22 S: Patient states she feels a bit better today, no specific complaints. Pain appears to be well controlled. Has not been able to void since the catheter was removed this morning however. O: Vital signs are stable, dressing intact A: Patient stable status post small bowel resection for perforated junctional diverticuli. Breathing well on her own, no shortness of breath. Still needs to void. P: Mobilize patient, keep on clear liquids for the time being. I will order physical therapy for the patient. May be transferred to the regular floor from a surgical standpoint.
--- NOTE | 2022-12-09 15:37 | P.PN ---
Subjective Date of Service: 12/09/22 Chief Complaint: Bowel perforation POD # 1 exploratory laparotomy with small bowel resection and primary anastomosis. She is doing very well this morning and reports that her pain is well controlled. She was able to tolerate a clear liquid diet, without any issues. She denies any chest pain, palpitations, or shortness of breath. Review of Systems 10-point ROS is otherwise unremarkable Gastrointestinal: Abdominal Pain (minimal) Physical Examination - Vital Signs Temperature: 97.5 F Blood Pressure: 121/62 Pulse: 71 Respirations: 16 Pulse Ox (%): 98 - Physical Exam General: Alert, In no apparent distress, Oriented x3 HEENT: Atraumatic, Mucous membr. moist/pink, Sclerae nonicteric Neck: JVD not distended Respiratory: Clear to auscultation bilaterally, Normal air movement Cardiovascular: No edema, Regular rate/rhythm, Normal S1 S2, No gallops, No rubs, No murmurs Gastrointestinal: Hypoactive, Other (abdomen in surgical binder) Musculoskeletal: No clubbing Integumentary: No rashes Neurological: Normal speech, Normal affect - Studies Laboratory Data (last 24 hrs) 12/08/22 17:51: Sodium 137, Potassium 4.0, BUN 12, Creatinine 0.83, Glucose 104 12/08/22 17:51: WBC 7.70, Hgb 14.3, Hct 43.2, Plt Count 140 L Assessment And Plan - Plan # Contained Small Bowel Perforation and Fluid Collection (2.2 cm) - CT abdomen/pelvis = "contained small bowel perforation, likely relating to distal jejunum, in the anterior abdomen just supraumbilical and left of midline, with an ill-defined collection measuring 2.2 centimeter in greatest dimension. Adjacent small bowel loops demonstrating ileus." - General Surgery consulted and she was evaluated by Dr. Walker - recommendations appreciated - S/P exploratory laparotomy with small bowel resection and primary anastomosis on 12/08 - She is doing well post-operatively - Continue piperacillin-tazobactam - On clear liquid diet - advance per Surgery recs - PRN pain control # Asthma - No evidence of acute exacerbation - Chest x-ray = "no acute cardiopulmonary process." - Continue PRN nebulizer treatments # Hypertension - Hold home anti-hypertensives for now Yash Burr M.D.
[2022-12-09] MEDS: ONDANSETRON 4 MG/2 ML VIAL IV PRN (15:59)
[2022-12-10] MEDS: IPRATROPIUM BROM 0.5MG/2.5ML NEB SCH ×4 (02:00→19:45)
[2022-12-10] MEDS: ALBUTEROL 2.5 MG/3 ML NEB SOL NEB SCH ×2 (02:00→08:00)
[2022-12-10] MEDS: HYDROMORPHONE HCL 1 MG/ML INJ IV PRN ×3 (03:00→10:08)
[2022-12-10 05:52] LABS: Absolute Lymphocytes (CBC) 1.1 K/uL (0.7-4.9); Hematocrit 35.4 % (36.0-45.0); Lymphocytes % 14.2 % (15.3-44.8); MCV 102.1 fL (80-100); MPV 8.9 fL (7.6-11.3); RBC Red Blood Cell Count 3.47 M/uL (3.86-4.86)
[2022-12-10 06:01] LABS: Albumin 2.2 g/dL (3.4-5.0); Bilirubin Total 0.5 mg/dL (0.2-1.0); Potassium 4.1 mEq/L (3.5-5.1); Protein, Total 5.7 g/dL (6.4-8.2)
[2022-12-10] MEDS: PIPER TAZO 3.375 GM in NA CHLORIDE 0.9% 100 ML IV SCH ×4 (07:49→16:55)
[2022-12-10] MEDS: Ringers Lactate 1,000 ML IV SCH ×3 (07:54→17:08)
[2022-12-10] MEDS ORDERED: ALBUTEROL 2.5 MG/3 ML NEB SOL NEB PRN (12:14)
[2022-12-10] MEDS: DULERA 200/5 (MOMETASONE/FORMOTEROL) INHALER IH SCH ×2 (13:46→20:22)
[2022-12-10] MEDS ORDERED: MINERAL OIL 30 ML UCUP PO ONE (14:03)
--- NOTE | 2022-12-10 14:30 | P.PN ---
Date of Service: 12/10/22 S: P patient awake alert, sitting up in bed. Pain well controlled on IV medication. Can feel her stomach rumbling, no BMs yet. Oh: Vital signs are stable, labs acceptable. Incision looks great. Carr catheter has been removed. A: Patient is able to void on her own, doing well status post exploratory laparotomy and small bowel resection. On clear liquids at the moment. I am going to change her off of her IV medications to p.o. P: Patient is stable to be transferred to the floor. I will change her to p.o. pain medication. Anticipate discharge in the next 24 to 48 hours.
[2022-12-10] MEDS ORDERED: METOPROLOL TARTRATE 5 MG/5 ML INJ IV STA ×3 (15:55→17:43)
--- NOTE | 2022-12-10 16:02 | EKG ---
Test Date: 2022-12-08 Test Time: 19:25:18 [place] T[employer] Helper: MB MEASUREMENT RESULTS: Intervals: Rate: 77 SD: 134 QRSD: 80 QT: 366 QTc: 414 [place]: P: 69 SD: 134 QRS: 41 T: 80 INTERPRETIVE STATEMENTS: Normal sinus rhythm Right atrial enlargement Borderline ECG Compared to ECG 11/28/2022 15:53:45 Atrial abnormality now present Electronically Signed On 12-10-22 15:57:51 CDT by Facundo Hay
[2022-12-10] MEDS ORDERED: METOPROLOL TARTRATE 5 MG/5 ML INJ IV ONE (16:03)
[2022-12-10] MEDS ORDERED: MICAFUNGIN SODIUM 100 MG in NA CHLORIDE 0.9% 100 ML IV SCH (17:00)
[2022-12-10] MEDS: AMIODARONE HCL 900 MG in Dextrose 5%-Water 482 ML IV SCH (18:45)
--- NOTE | 2022-12-10 19:01 | P.PN ---
Subjective Date of Service: 12/10/22 Chief Complaint: Bowel perforation POD # 2 exploratory laparotomy with small bowel resection and primary anastomosis. She appeared to be doing well this morning on rounds; however, this afternoon, she developed atrial fibrillation with rapid ventricular response. She was given 3 rounds of metoprolol 5 mg IV, without improvement. She has since been started on an amiodarone drip. Cardiology has been notified. She denies any chest pain, palpitations, or shortness of breath. Review of Systems 10-point ROS is otherwise unremarkable Gastrointestinal: Abdominal Pain Physical Examination - Vital Signs Temperature: 99.1 F Blood Pressure: 114/67 Pulse: 137 Respirations: 23 Pulse Ox (%): 95 Assessment And Plan - Plan - Physical Exam General: Alert, In no apparent distress, Oriented x3 HEENT: Atraumatic, Mucous membr. moist/pink, Sclerae nonicteric Neck: JVD not distended Respiratory: Clear to auscultation bilaterally, Normal air movement Cardiovascular: No edema, Irregularly irregular rate/rhythm, No murmurs Gastrointestinal: Hypoactive, minimally tender to palpation, Other (abdomen in surgical binder) Musculoskeletal: No clubbing Integumentary: No rashes Neurological: Normal speech, Normal affect # Contained Small Bowel Perforation and Fluid Collection (2.2 cm) - CT abdomen/pelvis = "contained small bowel perforation, likely relating to distal jejunum, in the anterior abdomen just supraumbilical and left of midline, with an ill-defined collection measuring 2.2 centimeter in greatest dimension. Adjacent small bowel loops demonstrating ileus." - General Surgery consulted and she was evaluated by Dr. Walker - recommendations appreciated - S/P exploratory laparotomy with small bowel resection and primary anastomosis on 12/08 - She is doing well post-operatively - Continue piperacillin-tazobactam - On clear liquid diet - advance per Surgery recs - PRN pain control # Post-Operative Atrial Fibrillation with Rapid Ventricular Response # Factor V Leiden Her [id number] = 2 (HTN=1, Sex=1). - Evaluation thus far: - Troponin = pending - EKG = atrial fibrillation with RVR - Repeat CXR = pending - Potassium = 4.1, Magnesium = pending - Target K> 4, Mg >2 - TSH = pending - NT-PRO BNP = pending - Transthoracic echocardiogram ordered - Management plan: - Consulted General Surgery and spoke with Dr. Walker - recommendations appreciated - Cleared her for anticoagulation if okay with Cardiology - Consulted Cardiology and spoke with Dr. Serra - recommendations appreciated - Recommended starting enoxaparin tomorrow morning given acute post-op period - Metoprolol 5 mg IV x 3, was unsuccessful - Started on amiodarone drip due to borderline blood pressures # Asthma - No evidence of acute exacerbation - Chest x-ray = "no acute cardiopulmonary process." - Continue PRN nebulizer treatments # Hypertension - Hold home anti-hypertensives for now Yash Burr M.D.
--- NOTE | 2022-12-10 19:14 | RAD REPORT ---
EXAM DESCRIPTION: RAD - Chest Single View - 12/10/2022 7:07 pm CLINICAL HISTORY: possible fluid overload Chest pain. COMPARISON: Chest Single View dated 12/08/2022; Chest Single View dated 11/28/2022; Chest Single View d ated 09/16/2022; Chest Single View dated 04/10/2022; Abdomen Pelvis Wo Contrast dated 12/08/2022 FINDINGS: Portable technique limits examination quality. Mild interstitial pulmonary edema. Small left pleural effusion. The heart is mildly prominent. No dis placed fractures. IMPRESSION: Mild CHF.
[2022-12-10] MEDS: HYDROCODONE/APAP 7.5/325 MG TAB PO PRN (20:22)
[2022-12-10 20:31] LABS: Thyroid Stimulating Hormone 1.06 uIU/mL (0.358-3.740)
[2022-12-11] MEDS: PIPER TAZO 3.375 GM in NA CHLORIDE 0.9% 100 ML IV SCH ×3 (01:27→15:57)
[2022-12-11] MEDS: IPRATROPIUM BROM 0.5MG/2.5ML NEB SCH ×4 (01:50→20:00)
[2022-12-11] MEDS: Ringers Lactate 1,000 ML IV SCH ×3 (04:01→20:01)
[2022-12-11 04:58] LABS: Absolute Lymphocytes (CBC) 1.1 K/uL (0.7-4.9); Hematocrit 33.3 % (36.0-45.0); Lymphocytes % 18.9 % (15.3-44.8); MCV 100.3 fL (80-100); MPV 7.7 fL (7.6-11.3); RBC Red Blood Cell Count 3.32 M/uL (3.86-4.86)
[2022-12-11 05:17] LABS: Potassium 3.8 mEq/L (3.5-5.1)
[2022-12-11 05:18] LABS: Bilirubin Total 0.7 mg/dL (0.2-1.0); Protein, Total 5.2 g/dL (6.4-8.2)
[2022-12-11] MEDS ORDERED: POTASSIUM 25 MEQ EFFERV TAB PO ONE (07:00)
[2022-12-11] MEDS: ENOXAPARIN 80 MG/0.8 ML SQ SCH ×2 (07:47→20:53)
[2022-12-11] MEDS: DULERA 200/5 (MOMETASONE/FORMOTEROL) INHALER IH SCH ×2 (07:48→20:53)
--- NOTE | 2022-12-11 08:21 | P.CNS ---
Date of Consult: 12/11/22 Reason for Consult: COPD Chief Complaint: Presumed COPD History of Present Illness: Patient is 62 years of age admitted with small bowel perforation she underwent resection and anastomosis on December 08 she has a history of presumed COPD I last saw her in March 23 elevated for sleep apnea patient is an active smoker complaining of shortness of breath postoperative hypoxemia just recently here discharge patient has an Advair inhaler at home Allergies carisoprodol [From Soma] Allergy (Unknown, Verified 11/28/22 22:48) Itching morphine Allergy (Unknown, Verified 11/28/22 22:48) Itching sulfamethoxazole [From Bactrim] Allergy (Unknown, Verified 11/28/22 22:48) Itching trimethoprim [From Bactrim] Allergy (Unknown, Verified 11/28/22 22:48) Itching Home Medications: Amlodipine [Norvasc*] 10 mg PO BEDTIME 11/28/22 Aspirin 81 mg PO DAILY 11/28/22 Citalopram [Celexa*] 10 mg PO BEDTIME 11/28/22 Gabapentin 300 mg PO BID 11/28/22 Losartan Potassium [Cozaar] 100 mg PO DAILY 11/28/22 Albuterol Sulfate [Albuterol Sulfate Hfa] 2 puff IH Q6H PRN #1 inhaler 11/30/22 Fluticasone/Salmeterol [Advair Hfa 115-21 Mcg Inhaler] 2 puff IH BID #1 inhaler 11/30/22 - Past Medical/Surgical History Diabetic: No -: Asthma -: COPD -: HTN -: Factor V Blood disorder -: Appendectomy 1971 -: 1977, 1978 -: Partial hysterectomy 1981 -: Ovary removal 1995 -: Cholecystetomy 2015 -: Hip fracture repair with pin placement 2016 Psychosocial/ Personal History: Lives at home with family - Family History Mother Medical History: Heart disease, Hypertension, Diabetes Brother Medical History: Hypertension Father Medical History: Heart disease, Hypertension, Diabetes - Social History Smoking Status: Current every day smoker Alcohol use: No CD- Drugs: No Caffeine use: No Place of Residence: Home Review of Systems General: Weakness Respiratory: Shortness of Breath Gastrointestinal: Abdominal Pain Physical Examination Temp Pulse Resp BP Pulse Ox 98.1 F 67 19 122/57 L 96 12/11/22 04:00 12/11/22 05:00 12/11/22 05:00 12/11/22 05:00 12/11/22 05:00 General: Alert, Oriented x3 Neck: Supple Respiratory: Clear to auscultation bilaterally Cardiovascular: No edema, Regular rate/rhythm Gastrointestinal: Hypoactive Musculoskeletal: No clubbing - Problems (1) COPD (chronic obstructive pulmonary disease) Current Visit: Yes Status: Acute Plan: Patient is 62 years of age admitted to the hospital with small bowel perforation s/p resection and anastomosis chemistries unremarkable mildly anemic vital signs stable changed over to [place] patient to do some incentive spirometry need to undergo PFT as an outpatient chest x-ray shows some interstitial changes history of postop A-fib Qualifiers: Emphysema type: unspecified
[2022-12-11] MEDS ORDERED: FUROSEMIDE 20 MG/ 2ML VIAL IV ONE (10:56)
--- NOTE | 2022-12-11 10:56 | P.PN ---
Subjective Date of Service: 12/11/22 Chief Complaint: Presumed COPD POD # 3 exploratory laparotomy with small bowel resection and primary anastomosis. She was started on an amiodarone drip yesterday, and overnight, she reverted back to normal sinus rhythm. She reports that the pain is well controlled this morning. She denies any flatus or bowel movement since surgery. She denies any chest pain, palpitations, or shortness of breath. Review of Systems 10-point ROS is otherwise unremarkable Gastrointestinal: Abdominal Pain Physical Examination - Vital Signs Temperature: 98.2 F Blood Pressure: 131/63 Pulse: 76 Respirations: 18 Pulse Ox (%): 91 Assessment And Plan - Plan - Physical Exam General: Alert, In no apparent distress, Oriented x3 HEENT: Atraumatic, Mucous membr. moist/pink, Sclerae nonicteric Neck: JVD not distended Respiratory: Clear to auscultation bilaterally, Normal air movement Cardiovascular: No edema, Rate/rhythm, No murmurs Gastrointestinal: Hypoactive, minimally tender to palpation, Other (abdomen in surgical binder) Musculoskeletal: No clubbing Integumentary: No rashes Neurological: Normal speech, Normal affect # Contained Small Bowel Perforation and Fluid Collection (2.2 cm) - CT abdomen/pelvis = "contained small bowel perforation, likely relating to distal jejunum, in the anterior abdomen just supraumbilical and left of midline, with an ill-defined collection measuring 2.2 centimeter in greatest dimension. Adjacent small bowel loops demonstrating ileus." - General Surgery consulted and she was evaluated by Dr. Walker - recommendations appreciated - S/P exploratory laparotomy with small bowel resection and primary anastomosis on 12/08 - Continue piperacillin-tazobactam - On clear liquid diet - advance per Surgery recs - PRN pain control # Post-Operative Atrial Fibrillation with Rapid Ventricular Response # Factor V Leiden Her [id number] = 2 (HTN=1, Sex=1). - Evaluation thus far: - Troponin = 24.0 - EKG = atrial fibrillation with RVR - Repeat CXR = "Mild CHF" - Potassium = 3.8, Magnesium = 2.0 - Target K> 4, Mg >2 - TSH = 1.06 - NT-PRO BNP = 1053 - Transthoracic echocardiogram ordered - Management plan: - Consulted General Surgery and spoke with Dr. Walker - recommendations appreciated - Cleared her for anticoagulation if okay with Cardiology - Consulted Cardiology and spoke with Dr. Hay - recommendations appreciated - Recommended starting enoxaparin this morning - Metoprolol 5 mg IV x 3, was unsuccessful - Ordered furosemide 20 mg IV x 1 - Started on amiodarone drip due to borderline blood pressures # Asthma - No evidence of acute exacerbation - Continue PRN nebulizer treatments # Hypertension - Hold home anti-hypertensives for now Yash Burr M.D.
--- NOTE | 2022-12-11 12:42 | CON ---
Date of Consultation: 12/11/2022 Reason For Consultation: New onset atrial fibrillation. History Of Present Illness: Ms. Ladd is 62. Came into the hospital with a perforated bowel thoug ht secondary to diverticulitis. The patient had emergency surgery by Dr. Walker, which was very suc cessful. The patient is having some clear liquids today, had an episode of rapid atrial fibrillation yesterday at 0137, so Dr. Serra started her on amiodarone IV drip and she is back in normal rhythm. Had palpitation, but no other cardiac symptoms. Past Medical History: Positive for hypertension. Medications: At home include Norvasc and losartan. Allergies: SHE IS ALLERGIC TO BACTRIM AND MORPHINE. Family History: Negative. Review of Systems: Negative. Social History: Negative. Physical Examination: General: She is pleasant. She is in sinus rhythm at 67. HEENT: Negative. Chest: Clear. Cardiac: Normal. Abdomen: Benign, status post surgery. Positive bowel sounds. Extremities: Revealed no edema. Diagnostic Data: All within normal limit. O2 saturation 98% on nasal cannula 6 L. Impression And Plan: New onset atrial fibrillation, possibly secondary to the stress of surgery. Ec hocardiogram is pending. We will continue IV amiodarone, switch to p.o. in the morning. Continue al buterol and antibiotics. We will see what her echo shows. Her blood pressure is well controlled. S he is status post perforated bowel surgery and doing well hemodynamically. Dr. Walker is following. We will continue to follow. As far as anticoagulation is concerned, more likely I would prefer idalia ping on Lovenox and keep her on aspirin down the road, not anticoagulation since she just had a major surgery. She may not need to be anticoagulated down the road depending on her echo. NB/DOCL Voice ID: [id number] Report ID: [id number]
--- NOTE | 2022-12-11 14:45 | P.PN ---
Date of Service: 12/11/22 S: Patient has no specific complaints today. Asking if she could have some food. Pain appears to be controlled on oral medication. O: Vital signs are stable, A: Patient went into SVT yesterday evening. Is now back in sinus rhythm. Her vital signs in route were stable. She is being treated by the medical service. I have approved her to be on blood thinners if needed. Surgically she is doing well, having occasional bowel sounds she says. Still no flatus. P: I will start the patient on a soft diet today. She is going to be transferred out of ICU tomorrow as long as she remains stable from a cardiac standpoint. At that time she needs to ambulate, move around, I would like to discharge her soon.
[2022-12-11] MEDS ORDERED: MINERAL OIL 30 ML UCUP PO ONE (15:42)
[2022-12-11] MEDS ORDERED: NA CHLORIDE 0.9% 100 ML ONE (15:57)
[2022-12-11] MEDS: AMIODARONE HCL 900 MG in Dextrose 5%-Water 482 ML IV SCH (16:12)
[2022-12-11] MEDS: HYDROCODONE/APAP 7.5/325 MG TAB PO PRN (17:41)
[2022-12-11 22:59] VITALS: BMI 31.5
[2022-12-12] MEDS: PIPER TAZO 3.375 GM in NA CHLORIDE 0.9% 100 ML IV SCH ×3 (00:43→16:27)
[2022-12-12] MEDS: IPRATROPIUM BROM 0.5MG/2.5ML NEB SCH ×4 (01:25→19:20)
[2022-12-12] MEDS: HYDROMORPHONE HCL 1 MG/ML INJ IV PRN (03:30)
[2022-12-12] MEDS: Ringers Lactate 1,000 ML IV SCH ×3 (04:01→19:41)
[2022-12-12 05:48] LABS: Absolute Lymphocytes (CBC) 0.9 K/uL (0.7-4.9); Hematocrit 37.5 % (36.0-45.0); Lymphocytes % 18.9 % (15.3-44.8); MCV 100.6 fL (80-100); MPV 8.2 fL (7.6-11.3); RBC Red Blood Cell Count 3.72 M/uL (3.86-4.86)
[2022-12-12 06:08] LABS: Albumin 2.2 g/dL (3.4-5.0); Bilirubin Total 0.4 mg/dL (0.2-1.0); Potassium 3.8 mEq/L (3.5-5.1); Protein, Total 5.8 g/dL (6.4-8.2)
[2022-12-12] MEDS: ONDANSETRON 4 MG/2 ML VIAL IV PRN (06:46)
--- NOTE | 2022-12-12 07:14 | ECHO ---
HEIGHT: 5 ft 9 in WEIGHT: 213 lb 10.047 oz DATE OF STUDY: 12/11/[address]: Yash Burr MD 2-DIMENSIONAL: YES M.MODE: YES DOPPLER: YES COLOR FLOW: YES TDS: YES PORTABLE: YES DEFINITY: NO BUBBLE STUDY: NO DIAGNOSIS: ATRIAL FIBRILLATION CARDIAC HISTORY: CATHERIZATION: SURGERY: PROSTHETIC VALVE: PACEMAKER: MEASUREMENTS (cm) DIASTOLIC (NORMALS) SYSTOLIC (NORMALS) IVSd (0.6-1.2) LA Diam (1.9-4.0) LVEF 55-60% LVIDd (3.5-5.7) LVIDs (2.0-3.5) %FS % LVPWd (0.6-1.2) Ao Diam (2.0-3.7) 2 DIMENSIONAL ASSESSMENT: RIGHT ATRIUM: NORMAL LEFT ATRIUM: NORMAL RIGHT VENTRICLE: NORMAL LEFT VENTRICLE: NORMAL TRICUSPID VALVE: NORMAL MITRAL VALVE: MILD MR PULMONIC VALVE: NORMAL AORTIC VALVE: NORMAL PERICARDIAL EFFUSION: NONE AORTIC ROOT: NORMAL LEFT VENTRICULAR WALL MOTION: NORMAL DOPPLER/COLOR FLOW: MILD MITRAL REGURGITATION. COMMENTS: 1. NORMAL LEFT VENTRICULAR EJECTION FRACTION 55-60%. 2. NORMAL WALL MOTION. 3. MILD MITRAL REGURGITATION. TECHNOLOGIST: Saranya MENESES
[2022-12-12] MEDS: AMIODARONE HCL 200 MG TAB PO SCH ×2 (07:34→20:14)
[2022-12-12] MEDS: ENOXAPARIN 80 MG/0.8 ML SQ SCH (07:34)
[2022-12-12] MEDS ORDERED: POTASSIUM CL SA 10 MEQ TAB PO ONE ×2 (08:00→09:00)
[2022-12-12] MEDS: DULERA 200/5 (MOMETASONE/FORMOTEROL) INHALER IH SCH ×2 (08:00→20:14)
--- NOTE | 2022-12-12 11:51 | PN ---
Patient remains in the ICU following a perforated bowel surgery. We have put her on IV amiodarone fo r atrial fibrillation. Echocardiogram is unremarkable. Today, she is in normal rhythm and remains o n IV amiodarone. Case was discussed with Dr. Burr. We will change her to p.o. amiodarone, continue 400 b.i.d. for a week and then 200 mg daily after that. We would like to see her in the office afte r she gets discharged. ARMANDO/JONH Voice ID: [id number] Report ID: [id number]
--- NOTE | 2022-12-12 14:42 | P.PN ---
Date of Service: 12/12/22 S: Patient been having some cramping abdominal pain today. Tolerating a diet. No nausea, and pain is controlled on oral medication. O: Back in normal sinus rhythm, vital signs are stable. Off amiodarone. A: Patient is surgically stable, and doing well. P: Patient can be transferred to the floor today. Patient can ambulate more freely then. Anticipate discharge soon.
--- NOTE | 2022-12-12 19:17 | P.PN ---
Subjective Date of Service: 12/12/22 Chief Complaint: Presumed COPD POD # 4 exploratory laparotomy with small bowel resection and primary anastomosis. She continues to improve daily. Plan to transition off of the amiodarone drip to PO amiodarone today. She continues to work well with PT. She has began passing flatus, but has not had a bowel movement yet. Plan to downgrade out of ICU to Med/Surg today. She denies any chest pain, palpitations, or shortness of breath. Review of Systems 10-point ROS is otherwise unremarkable Gastrointestinal: Abdominal Pain Physical Examination - Vital Signs Temperature: 97.8 F Blood Pressure: 130/66 Pulse: 65 Respirations: 19 Pulse Ox (%): 97 Assessment And Plan - Plan - Physical Exam General: Alert, In no apparent distress, Oriented x3 HEENT: Atraumatic, Mucous membr. moist/pink, Sclerae nonicteric Neck: JVD not distended Respiratory: Clear to auscultation bilaterally, Normal air movement Cardiovascular: No edema, Rate/rhythm, No murmurs Gastrointestinal: Hypoactive, minimally tender to palpation, Other (abdomen in surgical binder) Musculoskeletal: No clubbing Integumentary: No rashes Neurological: Normal speech, Normal affect # Contained Small Bowel Perforation and Fluid Collection (2.2 cm) - CT abdomen/pelvis = "contained small bowel perforation, likely relating to distal jejunum, in the anterior abdomen just supraumbilical and left of midline, with an ill-defined collection measuring 2.2 centimeter in greatest dimension. Adjacent small bowel loops demonstrating ileus." - General Surgery consulted and she was evaluated by Dr. Walker - recommendations appreciated - S/P exploratory laparotomy with small bowel resection and primary anastomosis on 12/08 - Continue piperacillin-tazobactam - Advance diet per Surgery recs - PRN pain control - Continue PT # Post-Operative Atrial Fibrillation with Rapid Ventricular Response # Factor V Leiden Her [id number] = 2 (HTN=1, Sex=1). - Evaluation thus far: - Troponin = 24.0 - EKG = atrial fibrillation with RVR - Repeat CXR = "Mild CHF" - Potassium = 3.8, Magnesium = 2.0 - Target K> 4, Mg >2 - TSH = 1.06 - NT-PRO BNP = 1053 - Transthoracic echocardiogram = "1. normal left ventricular ejection fraction 55-60%. 2. normal wall motion. 3. mild mitral regurgitation." - Management plan: - Consulted General Surgery and spoke with Dr. Walker - recommendations appreciated - Cleared her for anticoagulation if okay with Cardiology - Consulted Cardiology and spoke with Dr. Hay - recommendations appreciated - Continue enoxaparin - Transition off of amiodarone drip to PO amiodarone # Asthma - No evidence of acute exacerbation - Continue PRN nebulizer treatments # Hypertension - Hold home anti-hypertensives for now Yash Burr M.D.
[2022-12-12] MEDS: ENOXAPARIN 100 MG/ML SYR SQ SCH (20:14)
[2022-12-12] MEDS: ENSURE HIGH PROTEIN 237 ML CAN PO SCH (20:14)
[2022-12-13] MEDS: HYDROCODONE/APAP 7.5/325 MG TAB PO PRN ×2 (01:09→12:55)
[2022-12-13] MEDS: PIPER TAZO 3.375 GM in NA CHLORIDE 0.9% 100 ML IV SCH ×3 (01:11→19:51)
[2022-12-13] MEDS: IPRATROPIUM BROM 0.5MG/2.5ML NEB SCH ×4 (02:00→20:10)
[2022-12-13] MEDS: Ringers Lactate 1,000 ML IV SCH ×3 (04:01→20:01)
[2022-12-13 05:59] LABS: Absolute Lymphocytes (CBC) 0.9 K/uL (0.7-4.9); Hematocrit 33.7 % (36.0-45.0); Lymphocytes % 17.6 % (15.3-44.8); MCV 100.6 fL (80-100); MPV 8.5 fL (7.6-11.3); RBC Red Blood Cell Count 3.35 M/uL (3.86-4.86)
[2022-12-13 06:14] LABS: Magnesium 1.9 mg/dL (1.6-2.4); Phosphorus 3.9 mg/dL (2.5-4.9)
[2022-12-13] MEDS ORDERED: PIPERACIL/TAZO 3.375 GM VIAL IV ONE (08:25)
[2022-12-13] MEDS: AMIODARONE HCL 200 MG TAB PO SCH ×2 (08:45→20:20)
[2022-12-13] MEDS: ENOXAPARIN 100 MG/ML SYR SQ SCH ×2 (08:49→20:25)
[2022-12-13] MEDS: ENSURE HIGH PROTEIN 237 ML CAN PO SCH ×2 (09:00→20:27)
[2022-12-13] MEDS: DULERA 200/5 (MOMETASONE/FORMOTEROL) INHALER IH SCH ×2 (09:00→20:20)
--- NOTE | 2022-12-13 14:14 | P.PN ---
Subjective Date of Service: 12/13/22 Chief Complaint: Presumed COPD POD # 5 exploratory laparotomy with small bowel resection and primary anastomosis. She continues to improve daily. She has worked very well with PT. Her heart rate/rhythm have been controlled with PO amiodarone. She has not had a bowel movement yet. She is concerned to be discharged home prior to passing a bowel movement. She denies any chest pain, palpitations, or shortness of breath. Review of Systems 10-point ROS is otherwise unremarkable Gastrointestinal: Abdominal Pain, Constipation Physical Examination - Vital Signs Temperature: 97.8 F Blood Pressure: 138/69 Pulse: 66 Respirations: 16 Pulse Ox (%): 93 Assessment And Plan - Plan - Physical Exam General: Alert, In no apparent distress, Oriented x3 HEENT: Atraumatic, Mucous membr. moist/pink, Sclerae nonicteric Neck: JVD not distended Respiratory: Clear to auscultation bilaterally, Normal air movement Cardiovascular: No edema, Rate/rhythm, No murmurs Gastrointestinal: Hypoactive, minimally tender to palpation, Other (abdomen in surgical binder) Musculoskeletal: No clubbing Integumentary: No rashes Neurological: Normal speech, Normal affect # Contained Small Bowel Perforation and Fluid Collection (2.2 cm) - CT abdomen/pelvis = "contained small bowel perforation, likely relating to distal jejunum, in the anterior abdomen just supraumbilical and left of midline, with an ill-defined collection measuring 2.2 centimeter in greatest dimension. Adjacent small bowel loops demonstrating ileus." - General Surgery consulted and she was evaluated by Dr. Walker - recommendations appreciated - S/P exploratory laparotomy with small bowel resection and primary anastomosis on 12/08 - He recommended giving 30 cc mineral oil today for constipation - Continue piperacillin-tazobactam - Advance diet per Surgery recs - PRN pain control - Continue PT # Post-Operative Atrial Fibrillation with Rapid Ventricular Response # Factor V Leiden Her [id number] = 2 (HTN=1, Sex=1). - Evaluation thus far: - Troponin = 24.0 - EKG = atrial fibrillation with RVR - Repeat CXR = "Mild CHF" - Potassium = 3.8, Magnesium = 2.0 - Target K> 4, Mg >2 - TSH = 1.06 - NT-PRO BNP = 1053 - Transthoracic echocardiogram = "1. normal left ventricular ejection fraction 55-60%. 2. normal wall motion. 3. mild mitral regurgitation." - Management plan: - Consulted General Surgery and spoke with Dr. Walker - recommendations appreciated - Cleared her for anticoagulation if okay with Cardiology - Consulted Cardiology and spoke with Dr. Hay - recommendations appreciated - Continue enoxaparin - Transition off of amiodarone drip to PO amiodarone # Asthma - No evidence of acute exacerbation - Continue PRN nebulizer treatments # Hypertension - Hold home anti-hypertensives for now Yash Burr M.D.
[2022-12-13] MEDS ORDERED: MINERAL OIL 30 ML UCUP PO ONE (14:30)
[2022-12-13 20:51] LABS: Specific Gravity 1.019 (1.005-1.030); Urine Bacteria <20 /HPF (<20); Urine Bilirubin NEGATIVE (Negative); Urine Blood Negative (Negative); Urine Clarity Turbid (Clear); Urine Color Light-Yellow (Yellow); Urine Glucose NEGATIVE (Negative); Urine Protein TRACE (Negative); Urine RBC <5 /HPF (None Seen); Urine Urobilinogen Normal (Normal)
[2022-12-14] MEDS: PIPER TAZO 3.375 GM in NA CHLORIDE 0.9% 100 ML IV SCH ×2 (00:42→09:00)
[2022-12-14] MEDS: IPRATROPIUM BROM 0.5MG/2.5ML NEB SCH ×2 (01:30→08:00)
[2022-12-14] MEDS: Ringers Lactate 1,000 ML IV SCH (04:01)
[2022-12-14] MEDS: HYDROCODONE/APAP 7.5/325 MG TAB PO PRN (04:17)
[2022-12-14 08:23] VITALS: BP 140/66; TEMP 97.8
[2022-12-14] MEDS: ENSURE HIGH PROTEIN 237 ML CAN PO SCH (09:00)
--- NOTE | 2022-12-14 09:00 | P.DS ---
Admission Date: 12/08/22 Discharge Date: 12/14/22 Disposition: DC HOME/HOME HEALTH CARE Discharge Condition: GOOD Reason for Admission: Bowel perforation Consultations: 1. General Surgery 2. Cardiology Procedures: - 12/08/2022 - Exploratory Laparotomy with Small Bowel Resection and Primary Anastomosis Hospital Course: DIAGNOSES: # Contained Small Bowel Perforation and Fluid Collection (2.2 cm) s/p Exploratory Laparotomy with Small Bowel Resection and Primary Anastomosis (12/08/2022) # Post-Operative Atrial Fibrillation with Rapid Ventricular Response # Factor V Leiden # Asthma # Hypertension HOSPITAL COURSE: Ms. Rhona Ladd is a pleasant 62 year old female with a past medical history significant for asthma, hypertension, and Factor V Leiden who was admitted to the [facility] on 12/08/2022 for abdominal pain. She was admitted to the Medicine service. Upon further evaluation, her CT abdomen/pelvis revealed, "contained small bowel perforation, likely relating to distal jejunum, in the anterior abdomen just supraumbilical and left of midline, with an ill-defined collection measuring 2.2 centimeter in greatest dimension. Adjacent small bowel loops demonstrating ileus." General Surgery was consulted and she was evaluated by Dr. Walker. On 12/08/2022, she underwent an exploratory laparotomy with small bowel resection and primary anastomosis. She tolerated the procedure well. However, her post-operative course was complicated by atrial fibrillation with rapid ventricular response. Cardiology was consulted and she was evaluated by Dr. Hay. She was started on an amiodarone drip and converted back to normal sinus rhythm. She was transitioned to PO amiodarone and started on apixaban per Cardiology recommendations. Over her hospital course, she continued to improve and her diet was advanced. She has been passing flatus and had a bowel movement overnight. General Surgery has cleared her for discharge from their standpoint. She worked with Physical Therapy, and it was recommended that she be discharged with Home Health services. With the assistance of case management, this was arranged. On 12/14/2022, she was seen on morning rounds and deemed medically stable for discharge. She was discharged with instructions to schedule follow-up appointments with her PCP (Dr. Villa), with General Surgery (Dr. Walker), with Cardiology (Dr. Hay), and with Pulmonology for her inhalers(Dr. Powell). She was provided prescriptions for amiodarone, apixaban, amoxicillin-clavulanate, and hydrocodone-acetaminophen. She was given the opportunity to ask questions and reported no further questions. Furthermore, all questions were answered to the best of my ability. Prior to the controlled substance prescription, a PDMP review was conducted. Over the last 2 years, she has received 3 prescriptions from 3 providers to 1 pharmacy. Her opioid overdose risk score is 140. A copy of this discharge summary will be sent to the above providers to facilitate continuity of care. Today, I personally spent 35 minutes on her case, of which greater than 50% of the time was spent in patient education, counseling, and coordination of care as described above. - Physical Exam General: Alert, In no apparent distress, Oriented x3 HEENT: Atraumatic, Mucous membr. moist/pink, Sclerae nonicteric Neck: JVD not distended Respiratory: Clear to auscultation bilaterally, Normal air movement Cardiovascular: No edema, Rate/rhythm, No murmurs Gastrointestinal: Normoactive, Nontender to palpation, Other (abdomen in surgical binder) Musculoskeletal: No clubbing Integumentary: No rashes Neurological: Normal speech, Normal affect Vital Signs/Physical Exam: Temp Pulse Resp BP Pulse Ox 97.8 F 53 16 140/66 95 12/14/22 08:00 12/14/22 08:00 12/14/22 08:00 12/14/22 08:00 12/14/22 08:00 Laboratory Data at Discharge: WBC 5.10 thou/uL (4.3-10.9) 12/13/22 05:25 Hgb 11.2 g/dL (12.0-15.0) L D 12/13/22 05:25 Hct 33.7 % (36.0-45.0) L 12/13/22 05:25 Plt Count 153 thou/uL (152-406) 12/13/22 05:25 Sodium 137 mEq/L (136-145) 12/13/22 05:25 Potassium 4.0 mEq/L (3.5-5.1) 12/13/22 05:25 BUN 10 mg/dL (7-18) 12/13/22 05:25 Creatinine 0.73 mg/dL (0.55-1.02) 12/13/22 05:25 Glucose 105 mg/dL (74-106) 12/13/22 05:25 Phosphorus 3.9 mg/dL (2.5-4.9) 12/13/22 05:25 Magnesium 1.9 mg/dL (1.6-2.4) 12/13/22 05:25 Total Bilirubin 0.4 mg/dL (0.2-1.0) 12/12/22 05:22 AST 12 U/L (15-37) L 12/12/22 05:22 ALT 58 U/L (13-56) H 12/12/22 05:22 Alkaline Phosphatase 93 U/L (45-117) 12/12/22 05:22 Home Medications: Amlodipine [Norvasc*] 10 mg PO BEDTIME 11/28/22 Aspirin 81 mg PO DAILY 11/28/22 Citalopram [Celexa*] 10 mg PO BEDTIME 11/28/22 Gabapentin 300 mg PO BID 11/28/22 Losartan Potassium [Cozaar] 100 mg PO DAILY 11/28/22 Albuterol Sulfate [Albuterol Sulfate Hfa] 2 puff IH Q6H PRN #1 inhaler 11/30/22 Fluticasone/Salmeterol [Advair Hfa 115-21 Mcg Inhaler] 2 puff IH BID #1 inhaler 11/30/22 Amiodarone HCl [Cordarone*] 200 mg PO BID #60 tab 12/14/22 Amox/Clavulanate [Augmentin 875-125 Tab] 875 mg PO BID 14 Days #28 tab 12/14/22 Apixaban [Eliquis] 5 mg PO BID #60 tab 12/14/22 Hydrocodone 7.5/APAP 325 [Patriot 7.5/325 mg*] 1 tab PO Q6H PRN 3 Days #12 tab 12/14/22 New Medications: Amox/Clavulanate [Augmentin 875-125 Tab] 875 mg PO BID 14 Days #28 tab Amiodarone HCl [Cordarone*] 200 mg PO BID #60 tab Apixaban [Eliquis] 5 mg PO BID #60 tab Hydrocodone 7.5/APAP 325 [Patriot 7.5/325 mg*] 1 tab PO Q6H PRN 3 Days #12 tab PRN Reason: Pain Scale 5-7 (Moderate) Physician Discharge Instructions: 1. Please call and schedule a follow-up appointment with your PCP (Dr. Villa) in 3-5 days 2. Please call and schedule a follow-up appointment with General Surgery (Dr. Walker) in 3-5 days 3. Please call and schedule a follow-up appointment with Cardiology (Dr. Hay) in 5-7 days - Please have him adjust/refill your heart medication (amiodarone) and blood thinner (Eliquis) 4. Please call and schedule a follow-up appointment with Pulmonology (Dr. Powell) in 5-7 days Diet: AHA Activity: Per PT Followup: Facundo Hay MD [ACTIVE - CAN ADMIT] - Vickey Walker MD [ACTIVE - CAN ADMIT] - Prashant Villa DO [Primary Care Provider] - Tim Powell MD [ACTIVE - CAN ADMIT] - Time spent managing pt's care (in minutes): 35
[2022-12-14] MEDS: ENOXAPARIN 100 MG/ML SYR SQ SCH (09:44)
[2022-12-14] MEDS: DULERA 200/5 (MOMETASONE/FORMOTEROL) INHALER IH SCH (09:44)
[2022-12-14] MEDS: AMIODARONE HCL 200 MG TAB PO SCH (09:44)
[2022-12-14 09:58] VITALS: O2SAT 95
--- NOTE | 2022-12-16 07:52 | EKG ---
Test Date: 2022-12-11 Test Time: 03:06:49 Lease Purchase Truck Driver: Barrie HAND MEASUREMENT RESULTS: Intervals: Rate: 61 [place]: 134 QRSD: 90 QT: 374 QTc: 376 [place]: P: 61 [place]: 134 QRS: 28 T: 43 INTERPRETIVE STATEMENTS: Normal sinus rhythm Normal ECG Compared to ECG 12/10/2022 15:40:27 Atrial fibrillation no longer present ST (T wave) deviation no longer present Electronically Signed On 12-16-22 07:46:47 CDT by Facundo Hay
--- NOTE | 2022-12-16 07:52 | EKG ---
Test Date: 2022-12-10 Test Time: 15:40:27 Criminal Justice Teacher: CMAP MEASUREMENT RESULTS: Intervals: Rate: 159 [place]: QRSD: 82 QT: 272 QTc: 442 [place]: P: [place]: QRS: 33 T: 154 INTERPRETIVE STATEMENTS: Atrial fibrillation with rapid ventricular response Marked ST abnormality, possible inferior subendocardial injury Abnormal ECG Compared to ECG 12/08/2022 19:25:18 ST (T wave) deviation now present Sinus rhythm no longer present Atrial abnormality no longer present Electronically Signed On 12-16-22 07:46:49 CDT by Facundo Hay
== END 2022-12-14 10:16 | disposition home health service (06) | DRG 330 ==
LOC: ER 11:31 → 3RD-ICU 20:28 → 2ND 12-12 21:10
PROVIDERS: ADMIT Internal Medicine; ATTEND Internal Medicine
PROC: 0DB80ZZ Excision of Small Intestine, Open Approach (ICD-10-PCS; principal; 2022-12-08 20:00)
DX: K57.00 Diverticulitis of small intestine with perforation and abscess without bleeding (principal); D68.51 Activated protein C resistance; K56.7 Ileus, unspecified; I47.1 Supraventricular tachycardia; I48.91 Unspecified atrial fibrillation; I10 Essential (primary) hypertension; J45.909 Unspecified asthma, uncomplicated; F17.200 Nicotine dependence, unspecified, uncomplicated; Z88.1 Allergy status to other antibiotic agents; Z88.5 Allergy status to narcotic agent; Z88.8 Allergy status to other drugs, medicaments and biological substances; Z90.49 Acquired absence of other specified parts of digestive tract; Z79.82 Long term (current) use of aspirin; Z79.52 Long term (current) use of systemic steroids; Z90.711 Acquired absence of uterus with remaining cervical stump; Z79.899 Other long term (current) drug therapy; Z96.649 Presence of unspecified artificial hip joint
CPT/HCPCS: 36415; 71045; 74176; 80048; 80053; 81001; 83735; 83880; 84100; 84443; 84484; 85025; 88305; 88307; 93005; 93306; 94010; 94640; 96374; 97110; 97116; 97161; 97530; 99285; J0282; J1100; J1170; J1650; J1940; J2248; J2250; J2405; J2543; J2704; J2710; J3010; J3535; J7060; J7120; J7613; J7644

== ENCOUNTER 2024-04-01 08:53 | Day surgery (SDC) | payer BC ==
[2024-03-28 09:54] LABS: Absolute Eosinophils 0.2 K/uL (0-0.5); Absolute Lymphocytes (CBC) 1.6 K/uL (0.7-4.9); Absolute Monocytes 0.3 K/uL (0.1-1.3); Absolute Neutrophil 2.7 K/uL (1.8-8.0); Basophils % 0.5 % (0-1.3); Hematocrit 45.8 % (36.0-45.0); Hemoglobin 14.9 g/dL (12.0-15.0); Lymphocytes % 33.3 % (15.3-44.8); MCH 32.8 pg (27.0-35.0); MCHC 32.4 g/dL (32.0-36.0); MCV 101.1 fL (80-100); MPV 8.1 fL (7.6-11.3); Monocytes % 6.4 % (3.3-12.3); Neutrophils % 55.8 % (41.7-73.7); Platelets 160 thou/uL (152-406); RBC Red Blood Cell Count 4.53 M/uL (3.86-4.86); Red Cell Distribution Width 13.9 % (12.1-15.2)
--- NOTE | 2024-03-28 09:58 | EKG ---
Test Date: 2024-03-28 Test Time: 09:39:13 Community Health Outreach Worker: REAB MEASUREMENT RESULTS: Intervals: Rate: 51 [place]: 138 QRSD: 90 QT: 434 QTc: 400 [place]: P: 69 [place]: 138 QRS: 61 T: 76 INTERPRETIVE STATEMENTS: Sinus bradycardia Otherwise normal ECG Compared to ECG 12/11/2022 03:06:49 Sinus rhythm no longer present Electronically Signed On 03-28-24 09:57:55 CDT by Sagar Cox
[2024-03-28 09:59] LABS: PT Prothrombin Time 9.7 SECONDS (9.4-12.5); PTT, Activated Partial Thromb 32.4 SECONDS (24.3-36.9); Protime INR 0.86
[2024-03-28 10:08] LABS: Anion Gap 6.6 mEq/L (5.0-15.0); Potassium 4.6 mEq/L (3.5-5.1)
--- NOTE | 2024-03-28 12:07 | RAD REPORT ---
EXAM DESCRIPTION: RAD - Chest Pa And Lat (2 Views) - 03/28/2024 9:52 am CLINICAL HISTORY: Pre op pending right knee arthroscopy. Hypertension COMPARISON: Chest Single View dated 12/10/2022; Chest Single View dated 12/08/2022; Chest Single View d ated 11/28/2022; Chest Single View dated 09/16/2022 TECHNIQUE: PA and lateral views of the chest were obtained. FINDINGS: The lungs are clear. Heart size is normal and central vasculature is within normal limits. No pleural effusion or pneumothorax seen. No acute bony finding noted. IMPRESSION: No acute cardiopulmonary process.
[2024-04-01] MEDS: Ringers Lactate 1,000 ML IV ONE (09:15)
[2024-04-01] MEDS: CEFAZOLIN SODIUM 1 GM/VIAL ONE (09:39)
[2024-04-01] MEDS: BUPIVACAINE 0.25% PF 30 ML VIAL ONE (09:39)
[2024-04-01] MEDS ORDERED: LIDOCAINE 1% MPF 5 ML VIAL ONE (10:05)
[2024-04-01] MEDS ORDERED: propofoL 200 MG/20 ML VIAL IV ONE (10:05)
[2024-04-01] MEDS ORDERED: MIDAZOLAM HCL 2 MG/2 ML INJ ONE (10:05)
[2024-04-01] MEDS ORDERED: FENTANYL CITR 100 MCG/2 ML ONE (10:05)
[2024-04-01] MEDS ORDERED: dexAMETHasone 4 MG/ML VIAL ONE (10:41)
[2024-04-01] MEDS ORDERED: ONDANSETRON 4 MG/2 ML VIAL ONE (10:42)
[2024-04-01] MEDS ORDERED: EPHEDRINE SULF 50 MG/ML VIAL ONE (10:57)
--- NOTE | 2024-04-01 11:34 | P.BOP ---
Preoperative diagnosis: right knee lateral meniscus tear, right knee osteoarthritis Postoperative diagnosis: Same Primary procedure: Right knee arthroscopic partial lateral meniscectomy Sausage Grinder: NONE,NONE Estimated blood loss: 3 cc Specimen: None Findings: See dictation Anesthesia: General Complications: None Implants: None Fluids & blood products: Per anesthesia record; tourniquet time 24 minutes at 300 mmHg Transferred to: Recovery Room Condition: Good
[2024-04-01] MEDS: HYDROCODONE/APAP 7.5/325 MG TAB ONE (12:27)
[2024-04-01 13:10] VITALS: BP 150/81; TEMP 97; O2SAT 94
== END 2024-04-01 13:04 | disposition home or self-care (01) ==
LOC: OR 08:53
PROVIDERS: ATTEND Orthopaedic Surgery Sports Medicine
PROC: 0SBC4ZZ Excision of Right Knee Joint, Percutaneous Endoscopic Approach (ICD-10-PCS; principal; 2024-04-01 10:15)
DX: S83.281A Other tear of lateral meniscus, current injury, right knee, initial encounter (principal); M17.12 Unilateral primary osteoarthritis, left knee; M25.561 Pain in right knee
CPT/HCPCS: 93005; 85025; 80048; 36415; 85610; 85730; 71046; 29881; J2704; J1100; J2001; J2250; J3010; J2405; J7120; J0690

== ENCOUNTER 2024-06-02 06:40 | Inpatient (IN) | payer BC ==
[2024-06-02] MEDS ORDERED: ALBUTEROL 2.5 MG/3 ML NEB SOL ONE ×2 (06:45→06:50)
[2024-06-02] MEDS ORDERED: IPRATROPIUM BROM 0.5MG/2.5ML ONE ×2 (06:45→06:50)
[2024-06-02] MEDS ORDERED: METHYLPREDNISOLONE 125 MG INJ ONE (06:50)
[2024-06-02] MEDS ORDERED: Magnesium Sulfate 2gm IVPB 2 G/50 ML BAG IV ONE (06:51)
[2024-06-02] MEDS: Levofloxacin500mg IV 500 MG/100 ML BAG IV SCH (07:00)
[2024-06-02] MEDS: METHYLPREDNISOLONE 125 MG INJ IV ONE (07:00)
[2024-06-02 07:11] LABS: Absolute Eosinophils 0.4 K/uL (0-0.5); Absolute Monocytes 0.3 K/uL (0.1-1.3); Absolute Neutrophil 2.1 K/uL (1.8-8.0); Basophils % 0.4 % (0-1.3); Eosinophils % 8.5 % (0-4.4); Hematocrit 48.7 % (36.0-45.0); Hemoglobin 16.4 g/dL (12.0-15.0); Lymphocytes % 41.4 % (15.3-44.8); MCH 33.4 pg (27.0-35.0); MCHC 33.6 g/dL (32.0-36.0); MCV 99.5 fL (80-100); MPV 8.3 fL (7.6-11.3); Monocytes % 6.8 % (3.3-12.3); Neutrophils % 42.9 % (41.7-73.7); Nucleated Red Blood Cells % 0.1 % (0-0); Platelets 153 thou/uL (152-406); RBC Red Blood Cell Count 4.89 M/uL (3.86-4.86); Red Cell Distribution Width 13.4 % (12.1-15.2)
[2024-06-02 07:23] LABS: Anion Gap 8.3 mEq/L (5.0-15.0); Potassium 3.3 mEq/L (3.5-5.1); Troponin High Sensitivity 10.2 pg/mL (<58.9)
--- NOTE | 2024-06-02 07:56 | RAD REPORT ---
EXAMINATION: ONE VIEW CHEST XR CLINICAL INDICATION: Female, 63 years old.,DYSPNEA TECHNIQUE: Frontal chest projection is submitted. Examination is limited by patient positioning and t echnique. COMPARISON: 03/28/2024 FINDINGS: The lungs are well inflated and clear. No pneumothorax or sizable effusion. The heart is normal in s ize. Mediastinal contours are unremarkable. IMPRESSION: No acute intrathoracic abnormalities.
[2024-06-02] MEDS ORDERED: LEVALBUTEROL 1.25 MG/3 ML NEB ONE (08:31)
[2024-06-02 09:08] LABS: PT Prothrombin Time 10.7 SECONDS (9.4-12.5); PTT, Activated Partial Thromb 33.4 SECONDS (24.3-36.9); Protime INR 0.95
--- NOTE | 2024-06-02 09:37 | ER ---
Nurse's Notes [facility] Name: Rhona Ladd Age: 63 yrs Sex: Female : 1960 Arrival Date: 06/02/2024 Time: 06:40 Bed 6 Private MD: Diagnosis: COPD/ Chronic obstructive pulmonary disease with (acute) exacerbation;Hypoxemia Presentation: 06/02 06:53 Chief complaint: Patient states: I cant breathe, asthma. Coronavirus screen: At this bm8 time, the client does not indicate any symptoms associated with coronavirus-19. Ebola Screen: Patient negative for fever greater than or equal to 101.5 degrees Fahrenheit, and additional compatible Ebola Virus Disease symptoms Patient denies exposure to infectious person. Patient denies travel to an Ebola-affected area in the 21 days before illness onset. No symptoms or risks identified at this time. Initial Sepsis Screen: Does the patient meet any 2 criteria? RR > 20 per min. No. Patient's initial sepsis screen is negative. Does the patient have a suspected source of infection? No. Patient's initial sepsis screen is negative. Risk Assessment: Do you want to hurt yourself or someone else? Patient reports no desire to harm self or others. Onset of symptoms was June 02, 2024 at 03:00. 06:53 Method Of Arrival: Ambulatory bm8 06:53 Acuity: CHON 2 bm8 Triage Assessment: 06:54 General: Appears distressed, uncomfortable, Behavior is cooperative, appropriate for bm8 age, anxious. Pain: Denies pain. EENT: No deficits noted. No signs and/or symptoms were reported regarding the EENT system. Neuro: No deficits noted. Level of Consciousness is awake, alert, obeys commands, Oriented to person, place, time, situation, Appropriate for age. Cardiovascular: No deficits noted. Denies chest pain, Capillary refill < 3 seconds in bilateral fingers Patient's skin is warm and dry. Respiratory: Airway is patent Trachea midline Respiratory effort is labored, Respiratory pattern is hyperventilation tachypnea Breath sounds with wheezes bilaterally. the patient has severe shortness of breath. GI: No signs and/or symptoms were reported involving the gastrointestinal system. : No signs and/or symptoms were reported regarding the genitourinary system. Derm: No signs and/or symptoms reported regarding the dermatologic system. Musculoskeletal: No signs and/or symptoms reported regarding the musculoskeletal system. Historical: - Allergies: 06:54 Bactrim; bm8 06:54 Morphine; bm8 06:54 Soma; bm8 06:54 Codeine; bm8 - Home Meds: 06:54 Unable to obtain [Active]; bm8 - PMHx: 06:54 Asthma; Hypertension; bm8 - PSHx: 06:54 Appendectomy; bowel resection (ys); section; Cholecystectomy; ARTEM IN HER FEMUR bm8 (ys); - Immunization history:: Adult Immunizations up to date. - Infectious Disease History:: Denies. - Social history:: Smoking status: Patient reports the use of cigarette tobacco products. - Family history:: not pertinent. - Hospitalizations: : No recent hospitalization is reported. Screenin:57 [facility] ED Fall Risk Assessment (Adult) History of falling in the last 3 months, bm8 including since admission No falls in past 3 months (0 pts) Confusion or Disorientation No (0 pts) Intoxicated or Sedated No (0 pts) Impaired Gait No (0 pts) Mobility Assist Device Used No (0 pt) Altered Elimination No (0 pt) Score/Fall Risk Level 0 - 2 = Low Risk Oriented to surroundings, Maintained a safe environment, Educated pt \T\ family on fall prevention, incl call for assistance when getting out of bed, Assessed \T\ reinforced patient's understanding of fall precautions, Hourly rounding (assess needs \T\ fall precautionary measures) done, Used ambulatory aids as needed (educated on \T\ assisted with), Used gait belt as appropriate. Abuse screen: Denies threats or abuse. Nutritional screening: No deficits noted. Tuberculosis screening: No symptoms or risk factors identified. Assessment: 06:57 Reassessment: see triage note. bm8 08:02 Reassessment: Patient appears in no apparent distress at this time. Patient is alert, mt4 oriented x 3, equal unlabored respirations, skin warm/dry/pink. PT ON ROOM AIR Patient states symptoms have improved. 11:15 Reassessment: Patient and/or family updated on plan of care and expected duration. Pain tm6 level reassessed. Patient is alert, oriented x 3, equal unlabored respirations, skin warm/dry/pink. 13:50 Reassessment: REPORT FAXED TO RM 414. bp 14:20 Reassessment: ADMIT ON HOLD PER FLOOR REQUEST. bp Vital Signs: 06:53 BP 188 / 131; Pulse 73; Resp 25; Temp 97.7; Pulse Ox 79% on R/A; Weight 68.95 kg; bm8 Height 5 ft. 8 in. ; Pain 0/10; 07:18 BP 199 / 97; Pulse 74; Resp 16; Pulse Ox 100% ; ko1 11:13 BP 165 / 78; Pulse 80; Pulse Ox 92% on 2 lpm NC; MAP 102 mmHg; tm6 12:30 BP 159 / 77; Pulse 79; Resp 15; Pulse Ox 96% ; bp 13:30 BP 161 / 86; Pulse 78; Resp 16; Pulse Ox 97% ; bp 14:30 BP 151 / 83; Pulse 77; Resp 16; Pulse Ox 97% ; bp 06:53 Body Mass Index 23.11 (68.95 kg, 172.72 cm) bm8 06:53 Pain Scale: Adult bm8 Hipolito Coma Score: 06:57 Eye Response: spontaneous(4). Motor Response: obeys commands(6). Verbal Response: bm8 oriented(5). Total: 15. ED Course: 06:41 Patient arrived in ED. lg3 06:43 Alejandro Menchaca, RN is Primary Nurse. bm8 06:54 Triage completed. bm8 06:54 Arm band placed on right wrist. bm8 06:56 Troponin HS Sent. oe 06:56 CBC with Diff Sent. oe 06:56 Basic Metabolic Panel Sent. oe 06:57 No provider procedures requiring assistance completed. Initial lab(s) drawn, by ar bm8 sent to lab. Initial Neb Treatment Given as ordered Patient was instructed and evaluated on procedure Patient tolerated procedure well without adverse effect. Inserted saline lock: 20 gauge in right forearm, using aseptic technique. Blood collected. Flushed with 10 mL NS. Oxygen administered via a nebulizer mask. Response to oxygen therapy: symptoms improved. 06:57 Patient has correct armband on for positive identification. Bed in low position. Call bm8 light in reach. Side rails up X 1. Provided Education on: smoking cessastion. Client placed on continuous cardiac and pulse oximetry monitoring. NIBP monitoring applied. Pulse ox on. NIBP on. Door closed. Noise minimized. Pillow given. Verbal reassurance given. Head of bed elevated. 06:59 Oscar Mendez MD is Attending Physician. rn 07:09 Report given to report to Perico and TESSA Art. bm8 07:12 XRAY Chest (1 view) In Process Unspecified. EDMS 09:37 Denys Bailon is Hospitalizing Provider. rn 11:15 1115 CM met with at the bedside in the ED exam room. Patient identified by ane name . Demographic sheet confirmed. Patient states she lives with her Rocael, in a single story home and that prior to admission, she performs ADLs independently. Дмитрий reports she is still employed at the [employer]. DME in the home includes a nebulizer and a shower chair. No HH, home oxygen or other medical services at this time. Patient states she was prescribed home oxygen for 3o days when she was diagnosed with covid, however did not need it much. No MPOA in place. PCP is Dr. Prashant Villa. Her preferred plan is to return home upon discharge and states she will drive herself home but can make arrangements for her Rocael to transport her home. CM team will continue to follow and coordinate care during this hospital stay. 13:47 Patient admitted, IV remains in place. bp Administered Medications: 06:47 Drug: DuoNeb Nebulize (3:1) (2.5 mg - 0.5 mg) 3 ml Nebulizer once Route: Nebulizer; lg3 07:20 Follow up: Response: No adverse reaction ko1 06:56 Drug: Magnesium Sulfate IVPB 2 grams IVPB once over 1 hrs Route: IVPB; Infused Over: 1 mt4 hrs; Site: right forearm; 07:57 Follow up: Response: No adverse reaction; IV Status: Completed infusion; IV Intake: ko1 100ml 06:56 Drug: MethylPrednisoLONE IVP 125 mg IVP once Route: IVP; Site: right forearm; mt4 07:11 Follow up: Response: No adverse reaction ko1 07:21 Drug: DuoNeb Nebulize (3:1) (2.5 mg - 0.5 mg) 3 ml Nebulizer once Route: Nebulizer; ko1 07:57 Follow up: Response: No adverse reaction ko1 08:33 Drug: Levalbuterol Inhalation 1.25 mg Inhalation once Route: Inhalation; ko1 11:16 Follow up: Response: No adverse reaction tm6 09:58 Drug: NS 0.9% IV 500 ml IV at bolus once; to be given as a bolus over 30 minutes Route: bp IV; Rate: bolus; Site: right forearm; 11:16 Follow up: Response: No adverse reaction; IV Status: Completed infusion; IV Intake: tm6 500ml 09:58 Drug: levofloxacin IVPB 500 mg 100 ml IVPB once over 60 mins Volume: 100 ml; Route: bp IVPB; Infused Over: 60 mins; Site: right forearm; 11:15 Follow up: Response: No adverse reaction; IV Status: Completed infusion; IV Intake: tm6 100ml 13:19 Drug: NS 0.9% IV 500 ml IV at bolus once; to be given as a bolus over 30 minutes Route: bp IV; Rate: bolus; Site: right forearm; 13:50 Follow up: IV Status: Completed infusion bp Medication: 06:57 VIS not applicable for this client. bm8 Intake: 07:57 IV: 100ml; Total: 100ml. ko1 11:15 IV: 100ml; Total: 200ml. tm6 11:16 IV: 500ml; Total: 700ml. tm6 Outcome: 09:37 Decision to Hospitalize by Provider. rn 13:47 Admitted to Med/surg accompanied by tech, via wheelchair, room 414, with chart, bp 13:47 Condition: stable 13:47 Instructed on the need for admit, 14:58 Patient left the ED. bp Signatures: Dispatcher [employer] EDMS Oscar Mendez MD MD rn Espinosa, [place] oe Peltier, Brian RN Zuleyka Christine RN RN lg3 Wendy Moore RN TESSA koJarad Carrion RN RN tm6 Alejandro Menchaca, RN TESSA bm8 Rae Tao, RN TESSA [email or web address] Kimber Azevedo RN TESSA [place]
--- NOTE | 2024-06-02 09:37 | EDPHYS ---
Physician Documentation [facility] Name: Rhona Ladd Age: 63 yrs Sex: Female : 1960 Arrival Date: 06/02/2024 Time: 06:40 Bed 6 Private MD: ED Physician Oscar Mendez HPI: 06/02 07:06 This 63 yrs old Female presents to ER via Ambulatory with complaints of Asthma rn Exacerbation. 07:06 The patient presents to the emergency department with wheezing, that began without any rn particular precipitating event. Onset: The symptoms/episode began/occurred yesterday. Modifying factors: The symptoms are alleviated by nothing, the symptoms are aggravated by nothing. Associated signs and symptoms: Pertinent negatives: chest pain, fever, palpitations. Severity of symptoms: At their worst the symptoms were moderate in the emergency department the symptoms are unchanged. The patient has experienced similar episodes in the past. The patient has not recently seen a physician. 07:09 Pt reports sob since yesterday, has COPD, feels is secondary to weather change. no rn fever/chills/chest pain/hemoptysis. No abd pain. No hx of dvt/pe. . Historical: - Allergies: 06:54 Bactrim; bm8 06:54 Morphine; bm8 06:54 Soma; bm8 06:54 Codeine; bm8 - Home Meds: 06:54 Unable to obtain [Active]; bm8 - PMHx: 06:54 Asthma; Hypertension; bm8 - PSHx: 06:54 Appendectomy; bowel resection (ys); section; Cholecystectomy; ARTEM IN HER FEMUR bm8 (ys); - Immunization history:: Adult Immunizations up to date. - Infectious Disease History:: Denies. - Social history:: Smoking status: Patient reports the use of cigarette tobacco products. - Family history:: not pertinent. - Hospitalizations: : No recent hospitalization is reported. ROS: 07:09 Constitutional: Negative for fever, chills, and weight loss, Cardiovascular: Negative rn for chest pain, palpitations, and edema, Respiratory: + cough and sob Abdomen/GI: Negative for abdominal pain, nausea, vomiting, diarrhea, and constipation, Back: Negative for injury and pain, MS/Extremity: Negative for injury and deformity, Skin: Negative for injury, rash, and discoloration, Neuro: Negative for headache, weakness, numbness, tingling, and seizure, Exam: 07:09 Constitutional: This is a well developed, well nourished patient who is awake, alert, rn + moderate tachypnea Head/Face: Normocephalic, atraumatic. ENT: no stridor Cardiovascular: Regular rate and rhythm. No pulse deficits. Respiratory: + moderate tachypnea with diffue wheezing Abdomen/GI: Soft, non-tender MS/ Extremity: Pulses equal, no cyanosis. Neuro: Awake and alert, GCS 15 09:18 ECG was reviewed by the Attending Physician. rn Vital Signs: 06:53 BP 188 / 131; Pulse 73; Resp 25; Temp 97.7; Pulse Ox 79% on R/A; Weight 68.95 kg; bm8 Height 5 ft. 8 in. ; Pain 0/10; 07:18 BP 199 / 97; Pulse 74; Resp 16; Pulse Ox 100% ; ko1 11:13 BP 165 / 78; Pulse 80; Pulse Ox 92% on 2 lpm NC; MAP 102 mmHg; tm6 12:30 BP 159 / 77; Pulse 79; Resp 15; Pulse Ox 96% ; bp 13:30 BP 161 / 86; Pulse 78; Resp 16; Pulse Ox 97% ; bp 14:30 BP 151 / 83; Pulse 77; Resp 16; Pulse Ox 97% ; bp 06:53 Body Mass Index 23.11 (68.95 kg, 172.72 cm) bm8 06:53 Pain Scale: Adult bm8 Hipolito Coma Score: 06:57 Eye Response: spontaneous(4). Motor Response: obeys commands(6). Verbal Response: bm8 oriented(5). Total: 15. MDM: 06:49 Medical Screening Exam initiated bo1 09:35 Differential diagnosis: COPD exacerbation. Data reviewed: vital signs, nurses notes, rn geriatric test result(s), radiologic studies, plain films, and as a result, I will admit patient. Consideration of Admission/Observation Patient was admitted/placed on observation. Escalation of care including admission/observation considered. Care significantly affected by the following chronic conditions: Chronic Obstructive Pulmonary Disease. Counseling: I had a detailed discussion with the patient and/or guardian regarding the historical points, exam findings, and any diagnostic results supporting the discharge/admit diagnosis, lab results, radiology results, the need for further work-up and treatment in the hospital. Response to treatment: the patient's symptoms have mildly improved after treatment, and as a result, I will admit patient. ED course: Patient improved but still not feeling well. Still tachypnea with wheezing. Oxygen started in the 70s. Patient reports still feels dyspneic. Elevated lactic acid. No source of infection identified at this time. Patient with moderate COPD exacerbation. Joint decision made with patient and will admit to hospitalist for further steroid and breathing treatment.. 06/02 06:49 Order name: Basic Metabolic Panel; Complete Time: 07:26 bo1 06/02 06:49 Order name: CBC with Diff; Complete Time: 07:26 bo1 06/02 06:49 Order name: Troponin HS; Complete Time: 07:26 bo 06/02 08:22 Order name: Blood Culture Adult (2) rn 06/02 08:22 Order name: Lactate w/ 2H reflex if indic.; Complete Time: 09:25 rn 06/02 08:22 Order name: Protime (+inr); Complete Time: 09:17 rn 06/02 08:22 Order name: Ptt, Activated; Complete Time: 09:17 rn 06/02 10:30 Order name: Urinalysis w/ reflexes EDMS 06/02 10:30 Order name: Basic Metabolic Panel EDMS 06/02 10:30 Order name: Basic Metabolic Panel EDMS 06/02 10:30 Order name: Basic Metabolic Panel EDMS 06/02 10:30 Order name: Basic Metabolic Panel EDMS 06/02 10:30 Order name: Basic Metabolic Panel EDMS 06/02 10:30 Order name: Basic Metabolic Panel EDMS 06/02 10:30 Order name: CBC with Automated Diff EDMS 06/02 10:30 Order name: CBC with Automated Diff EDMS 06/02 10:30 Order name: CBC with Automated Diff EDMS 06/02 10:30 Order name: CBC with Automated Diff EDMS 06/02 10:30 Order name: CBC with Automated Diff EDMS 06/02 10:30 Order name: CBC with Automated Diff EDMS 06/02 10:30 Order name: Magnesium EDMS 06/02 10:30 Order name: Magnesium EDMS 06/02 10:30 Order name: Magnesium EDMS 06/02 10:30 Order name: Magnesium EDMS 06/02 10:30 Order name: Magnesium EDMS 06/02 10:30 Order name: Magnesium EDMS 06/02 10:30 Order name: Phosphorus EDMS 06/02 10:30 Order name: Phosphorus EDMS 06/02 10:30 Order name: Phosphorus EDMS 06/02 10:30 Order name: Phosphorus EDMS 06/02 10:30 Order name: Phosphorus EDMS 06/02 10:30 Order name: Phosphorus EDMS 06/02 10:30 Order name: Troponin High Sensitivity EDMS 06/02 10:30 Order name: Troponin High Sensitivity EDMS 06/02 10:30 Order name: Troponin High Sensitivity EDMS 06/02 11:26 Order name: Ghost Lactate-NO COLLECT Timer; Complete Time: 13:12 EDMS 06/02 12:01 Order name: Lactate Sepsis 2 HR Follow-up; Complete Time: 13:12 EDMS 06/02 06:49 Order name: XRAY Chest (1 view); Complete Time: 07:58 bo1 06/02 06:46 Order name: IV Saline Lock; Complete Time: 06:50 bo1 06/02 06:49 Order name: O2 Per Protocol; Complete Time: 06:54 bo1 06/02 06:49 Order name: O2 Sat Monitoring; Complete Time: 06:54 bo1 06/02 08:22 Order name: Accucheck; Complete Time: 08:33 rn 06/02 08:22 Order name: Cardiac monitoring; Complete Time: 08:29 rn 06/02 08:22 Order name: EKG - Nurse/Tech; Complete Time: 08:59 rn 06/02 08:22 Order name: Labs collected and sent; Complete Time: 08:59 rn EC:18 Rate is 80 beats/min. Rhythm is regular. QRS Couch is Normal. WV interval is normal. QRS rn interval is normal. QT interval is normal. No Q waves. T waves are Normal. No ST changes noted. Clinical impression: NSR w/ Non-specific ST/T Changes. Interpreted by me. Reviewed by me. Administered Medications: 06:47 Drug: DuoNeb Nebulize (3:1) (2.5 mg - 0.5 mg) 3 ml Nebulizer once Route: Nebulizer; lg3 07:20 Follow up: Response: No adverse reaction ko1 06:56 Drug: Magnesium Sulfate IVPB 2 grams IVPB once over 1 hrs Route: IVPB; Infused Over: 1 mt4 hrs; Site: right forearm; 07:57 Follow up: Response: No adverse reaction; IV Status: Completed infusion; IV Intake: ko1 100ml 06:56 Drug: MethylPrednisoLONE IVP 125 mg IVP once Route: IVP; Site: right forearm; mt4 07:11 Follow up: Response: No adverse reaction ko1 07:21 Drug: DuoNeb Nebulize (3:1) (2.5 mg - 0.5 mg) 3 ml Nebulizer once Route: Nebulizer; ko1 07:57 Follow up: Response: No adverse reaction ko1 08:33 Drug: Levalbuterol Inhalation 1.25 mg Inhalation once Route: Inhalation; ko1 11:16 Follow up: Response: No adverse reaction tm6 09:58 Drug: NS 0.9% IV 500 ml IV at bolus once; to be given as a bolus over 30 minutes Route: bp IV; Rate: bolus; Site: right forearm; 11:16 Follow up: Response: No adverse reaction; IV Status: Completed infusion; IV Intake: tm6 500ml 09:58 Drug: levofloxacin IVPB 500 mg 100 ml IVPB once over 60 mins Volume: 100 ml; Route: bp IVPB; Infused Over: 60 mins; Site: right forearm; 11:15 Follow up: Response: No adverse reaction; IV Status: Completed infusion; IV Intake: tm6 100ml 13:19 Drug: NS 0.9% IV 500 ml IV at bolus once; to be given as a bolus over 30 minutes Route: bp IV; Rate: bolus; Site: right forearm; 13:50 Follow up: IV Status: Completed infusion bp Disposition: 09:36 Critical Care:. rn Disposition Summary: 06/02/24 09:37 Hospitalization Ordered Notes: Hospitalization Status: Observation rn Provider: Denys Bailon rn Condition: Stable rn Problem: new rn Symptoms: have improved rn Bed/Room Type: Standard rn Location: Telemetry/MedSurg (observation)(06/02/24 13:38) [facility] Room Assignment: [facility](06/02/24 13:38) [facility] Diagnosis - COPD/ Chronic obstructive pulmonary disease with (acute) exacerbation rn - Hypoxemia rn Forms: - Medication Reconciliation Form rn - SBAR form rn - Leadership Thank You Letter software intern time excluding procedures: 09:36 Critical care time: Bedside Care: 35 minutes. Total time: 35 minutes rn Signatures: Dispatcher [employer] EDMS Oscar Mendez MD MD rn Peltier, Brian, RN RN Zuleyka Ellison, RN RN lg3 Prabha Chaney, RN RN kb3 Wendy Moore, RN RN ko1 [facility] Rigo Suarez MD MD bo1 Alejandro Menchaca, RN RN bm8 Rae Tao, RN RN mo4 Jarad Bull RN tm6 Corrections: (The following items were deleted from the chart) 06:50 06:50 BASIC METABOLIC PANEL+C.LAB.BRZ ordered. EDMS EDMS 06:50 06:50 CBC+H.LAB.BRZ ordered. EDMS EDMS 06:50 06:50 Troponin High Sensitivity+C.LAB.BRZ ordered. EDMS EDMS 06:50 06:50 Chest Single View+RAD.RAD.BRZ ordered. EDMS EDMS 12:42 09:37 Telemetry/MedSurg (observation) rn kb3 12:42 09:37 rn kb3 13:38 12:42 [facility] ER HOLD kb3 bc6 13:38 12:42 ERHOLD- kb3 bc6
[2024-06-02] MEDS ORDERED: Levofloxacin500mg IV 500 MG/100 ML BAG IV ONE (09:54)
[2024-06-02] MEDS ORDERED: NA CHLORIDE 0.9% 500 ML ONE ×2 (09:54→13:16)
[2024-06-02] MEDS ORDERED: ACETAMINOPHEN 325 MG TABLET PO PRN (10:23)
--- NOTE | 2024-06-02 12:19 | P.HP ---
Patient History Date of Service: 06/02/24 Reason for admission: Acute hypoxic respiratory failure secondary to COPD exacer bation History of Present Illness: Rhona Ladd is a 63-year-old female with past medical history of COPD, chronic bronchiectasis, asthma, hypertension, and Factor V Blood disorder, who presents to the ED with chief complaint of shortness of breath and wheezing. She reports going to work this morning but unable to breathe well when she arrived, she reports this happens with weather changes. She also reports having a medial meniscal surgery 3 weeks ago and recently finished p.o. antibiotics for removal of basal cell carcinoma from her left arm. On evaluation in the ED, lactic acid 2.5 with repeat of 3.5, WBC within normal limits, afebrile, and on room air. She was provided several DuoNeb treatments, steroids, and IV antibiotics and is much improved. She reports seeing Dr. Powell for her chronic lung conditions. Chest x-ray reports "No acute intrathoracic abnormalities." Rhona will be admitted to hospitalist service for 24-hour observation and monitoring of lactic acid as well as blood culture. Allergies carisoprodol [From Soma] Allergy (Unknown, Verified 03/28/24 09:16) Itching morphine Allergy (Unknown, Verified 03/28/24 09:16) Itching sulfamethoxazole [From Bactrim] Allergy (Unknown, Verified 03/28/24 09:16) Itching trimethoprim [From Bactrim] Allergy (Unknown, Verified 03/28/24 09:16) Itching codeine Allergy (Verified 03/28/24 09:16) Itching Home Medications: Amlodipine [Norvasc*] 10 mg PO DAILY 11/28/22 Aspirin 81 mg PO DAILY 11/28/22 Citalopram [Celexa*] 10 mg PO DAILY 11/28/22 Losartan Potassium [Cozaar] 100 mg PO DAILY 11/28/22 Albuterol Sulfate [Albuterol Sulfate Hfa] 2 puff IH Q6H PRN #1 inhaler 11/30/22 Ascorbic Acid [Vitamin C] 500 mg PO DAILY 03/28/24 Cholecalciferol (Vitamin D3) [Vitamin D3] 1,000 unit PO DAILY 03/28/24 Diclofenac Potassium 50 mg PO Q8HP PRN 03/28/24 Fluticasone/Umeclidin/Vilanter [Trelegy Ellipta 100-62.5-25] 1 each IH DAILY 03/28/24 Lactobacillus Combo No.11 [Probiotic] 1 each PO DAILY 03/28/24 Metoprolol Succinate [Toprol Xl] 25 mg PO DAILY 03/28/24 Omeprazole [Prilosec] 40 mg PO DAILY 03/28/24 Zinc Gluconate [Zinc] 50 mg PO DAILY 03/28/24 - Past Medical/Surgical History Diabetic: No -: Asthma -: COPD -: HTN -: Factor V Blood disorder -: Chronic bronchiectasis -: Appendectomy 1971 -: 1977, 1978 -: Partial hysterectomy 1981 -: Ovary removal 1995 -: Cholecystetomy 2015 -: Hip fracture repair with pin placement 2016 Psychosocial/ Personal History: Lives at home with family - Family History Mother -: Heart disease, Hypertension, Diabetes Brother -: Hypertension Father -: Heart disease, Hypertension, Diabetes - Social History Smoking Status: Current some day smoker Alcohol use: No CD- Drugs: No Caffeine use: No Review of Systems Respiratory: Shortness of Breath, Wheezing Physical Examination - Physical Exam General: Alert, In no apparent distress, Oriented x3 HEENT: Atraumatic, Normocephalic, PERRLA Neck: Supple, 2+ carotid pulse no bruit, JVD not distended Respiratory: Clear to auscultation bilaterally, Normal air movement, Expiratory wheezes Cardiovascular: No edema, Normal pulses, Regular rate/rhythm, Normal S1 S2 Capillary refill: <2 Seconds Gastrointestinal: Normal bowel sounds, Soft and benign Musculoskeletal: No clubbing, No tenderness Integumentary: No rashes Neurological: Normal speech, Normal tone - Studies Laboratory Data (last 24 hrs) 06/02/24 06/02/24 06/02/24 06:50 06:50 06:50 WBC 4.90 Hgb 16.4 H Hct 48.7 H Plt Count 153 PT 10.7 INR 0.95 APTT 33.4 Sodium 142 Potassium 3.3 L BUN 10 Creatinine 0.84 Glucose 124 H Assessment and Plan - Plan Assessment and plan Acute hypoxic respiratory failure secondary to COPD exacerbation Lactic acidosis History of asthma -Lactic acid 2.5/3.5 -Troponin 10.2, serial pending -Levaquin -Follow blood culture -O2 protocol -Nebulizers, ipratropium -Gentle IV fluids Hypokalemia -Potassium 3.3 -Monitor and replace as needed History of hypertension -Continue home medication Smoking abuse -Smoking cessation education provided DVT PPx SCD Full code LOS 24-hour OBS Discharge Plan: Home Plan to discharge in: 24 Hours - Advance Directives Does patient have a Living Will: No Does patient have a Durable POA for Healthcare: No
[2024-06-02] MEDS: LEVALBUTEROL 1.25 MG/3 ML NEB NEB SCH (13:00)
[2024-06-02 15:48] VITALS: BMI 28.1
[2024-06-02] MEDS ORDERED: HOME MED 1 EA UNK (Losartan Potassium [Cozaar] 100 MG Tablet) PO SCH (17:30)
[2024-06-02] MEDS: NA CHLORIDE 0.9% 1,000 ML IV SCH (18:07)
[2024-06-02] MEDS: LOSARTAN POTASSIUM 50 MG TABLET PO SCH (18:08)
[2024-06-03] MEDS: METHYLPREDNISOLONE 125 MG INJ ONE (02:57)
[2024-06-03] MEDS: METHYLPREDNISOLONE 125 MG INJ IV ONE (03:05)
--- NOTE | 2024-06-03 04:58 | RAD REPORT ---
EXAM: CT Angiography Chest With Intravenous Contrast CLINICAL HISTORY: The patient is 63 years old and is Female; rule out pulmonary embolism, dyspnea TECHNIQUE: Axial computed tomographic angiography images of the chest with intravenous contrast. Sagittal and coronal reformatted images were created and reviewed. This CT exam was performed using one or more of the following dose reduction techniques: automated exposure control, adjustmen t of the mA and/or kV according to patient size, and/or use of iterative reconstruction technique. MIP reconstructed images were created and reviewed. COMPARISON: No relevant prior studies available. FINDINGS: Pulmonary arteries: Unremarkable. No pulmonary embolism. Aorta: No acute findings. No thoracic aortic aneurysm. Lungs: Extensive emphysematous changes in the lungs bilaterally. No mass. No consolidation. Pleural space: Unremarkable. No significant effusion. No pneumothorax. Heart: Unremarkable. No cardiomegaly. No significant pericardial effusion. No evidence of R V dysfunction. Bones/joints: No acute fracture. No dislocation. Soft tissues: Unremarkable. Lymph nodes: Unremarkable. No enlarged lymph nodes. IMPRESSION: 1. No evidence of pulmonary embolism. 2. Extensive emphysematous changes in the lungs bilaterally. Electronically signed by: Jose Paulino MD 06/03/2024 04:30 AM CDT 8 Due to temporary technical issues with the [employer] reporting system, reports are being isaiah d by the in-house radiologist without review as a courtesy to ensure prompt reporting the interpreting radiologist is fully responsible for the content of the report. Transcribed Date/Time: 06/03/2024 4:58 AM
[2024-06-03 05:38] LABS: Urine Bilirubin NEGATIVE (Negative); Urine Blood Negative (Negative); Urine Clarity Clear (Clear); Urine Color Light-Yellow (Yellow); Urine Glucose NEGATIVE (Negative); Urine Ketones TRACE (Negative); Urine Microscopic Reflex YN NO UMIC; Urine Nitrite NEGATIVE (Negative); Urine Protein NEGATIVE (Negative); Urine Urobilinogen Normal (Normal); Urine pH 6.5 (5.0-7.0)
[2024-06-03 06:06] LABS: Absolute Lymphocytes (CBC) 0.6 K/uL (0.7-4.9); Absolute Monocytes 0.2 K/uL (0.1-1.3); Absolute Neutrophil 6.4 K/uL (1.8-8.0); Basophils % 0.2 % (0-1.3); Eosinophils % 0.2 % (0-4.4); Hematocrit 40.9 % (36.0-45.0); Hemoglobin 13.6 g/dL (12.0-15.0); MCH 33.5 pg (27.0-35.0); MCHC 33.3 g/dL (32.0-36.0); MCV 100.7 fL (80-100); MPV 8.9 fL (7.6-11.3); Monocytes % 2.4 % (3.3-12.3); Neutrophils % 88.2 % (41.7-73.7); Platelets 142 thou/uL (152-406); RBC Red Blood Cell Count 4.07 M/uL (3.86-4.86); Red Cell Distribution Width 13.5 % (12.1-15.2)
[2024-06-03 06:31] LABS: Anion Gap 8.2 mEq/L (5.0-15.0); Magnesium 2.1 mg/dL (1.6-2.4); Phosphorus 2.1 mg/dL (2.5-4.9); Potassium 4.2 mEq/L (3.5-5.1)
[2024-06-03 06:38] LABS: Specific Gravity > 1.030 (1.005-1.030)
[2024-06-03] MEDS ORDERED: HOME MED 1 EA UNK (Omeprazole [Prilosec] 40 MG Capsule.Dr) PO SCH (09:00)
[2024-06-03] MEDS: DICLOFENAC POTASSIUM 50 MG PO SCH (09:00)
[2024-06-03] MEDS: CITALOPRAM 10 MG TABLET PO SCH (09:09)
[2024-06-03] MEDS: PANTOPRAZOLE 40MG TABLET PO SCH (09:10)
[2024-06-03] MEDS: METOPROLOL XL 25 MG TAB PO SCH (09:10)
[2024-06-03 10:19] LABS: Band Neutrophils 1 % (0-1); Blood Morphology Comment NOT SEEN (NOT SEEN); Differential Total Cells Count 100; Eosinophils 1 % (0-3); Lymphocytes 9 % (15-42); Monocytes 2 % (0-10); Platelet Estimate ADEQ; Segmented Neutrophils 87 % (40-80)
[2024-06-03] MEDS: POTASS/SODIUM PHOSPHATE 1 PKT POWD.PACK PO SCH (10:52)
--- NOTE | 2024-06-03 10:55 | P.CNS ---
Date of Consult: 06/03/24 Reason for Consult: COPD exacerbation Chief Complaint: COPD exacerbation History of Present Illness: Patient is 63 years of age admitted with a 2-day history of worsening dyspnea cough congestion wheezing does take Trelegy nebulizers inhalers at home with no relief continue to wheeze and it appeared in the emergency room she is feeling a little better denies any cough phlegm chest pain Allergies carisoprodol [From Soma] Allergy (Unknown, Verified 03/28/24 09:16) Itching morphine Allergy (Unknown, Verified 03/28/24 09:16) Itching sulfamethoxazole [From Bactrim] Allergy (Unknown, Verified 03/28/24 09:16) Itching trimethoprim [From Bactrim] Allergy (Unknown, Verified 03/28/24 09:16) Itching codeine Allergy (Verified 03/28/24 09:16) Itching Home Medications: Citalopram [Celexa*] 10 mg PO DAILY 11/28/22 Losartan Potassium [Cozaar] 100 mg PO DAILY 11/28/22 Albuterol Sulfate [Albuterol Sulfate Hfa] 2 puff IH Q6H PRN #1 inhaler 11/30/22 Diclofenac Potassium 50 mg PO DAILY 03/28/24 Fluticasone/Umeclidin/Vilanter [Trelegy Ellipta 100-62.5-25] 1 each IH DAILY 03/28/24 Metoprolol Succinate [Toprol Xl] 25 mg PO DAILY 03/28/24 Omeprazole [Prilosec] 40 mg PO DAILY 03/28/24 - Past Medical/Surgical History Diabetic: No -: Asthma -: COPD -: HTN -: Factor V Blood disorder -: Chronic bronchiectasis -: Appendectomy 1971 -: 1977, 1978 -: Partial hysterectomy 1981 -: Ovary removal 1995 -: Cholecystetomy 2015 -: Hip fracture repair with pin placement 2016 Psychosocial/ Personal History: Lives at home with family - Family History Mother Medical History: Heart disease, Hypertension, Diabetes Brother Medical History: Hypertension Father Medical History: Heart disease, Hypertension, Diabetes - Social History Smoking Status: Current every day smoker Alcohol use: No CD- Drugs: No Caffeine use: No Place of Residence: Home Review of Systems 10-point ROS is otherwise unremarkable Respiratory: Shortness of Breath Physical Examination Temp Pulse Resp BP Pulse Ox 98.1 F 76 16 157/74 H 94 06/03/24 08:00 06/03/24 10:21 06/03/24 08:00 06/03/24 10:21 06/03/24 08:00 General: Alert, Oriented x3 Neck: Supple Respiratory: Clear to auscultation bilaterally, Diminished Cardiovascular: No edema, Regular rate/rhythm, Normal S1 S2 Gastrointestinal: Normal bowel sounds, Soft and benign, Non-distended - Problems (1) COPD exacerbation Current Visit: Yes Status: Acute Plan: Patient is 63 years of age and active smoker admitted with worsening dyspnea OPD exacerbation CT scan shows extensive emphysematous changes patient will need to be evaluated for alpha-1 antitrypsin deficiency labs reviewed mild mild macrocytosis no evidence of obvious sepsis no pneumonia evaluate for home O2 ambulate plan to discharge on prednisone 20 mg twice a day for a week continue with Trelegy nebulizers to follow-up with me
--- NOTE | 2024-06-03 12:50 | P.PN ---
Date of Service: 06/03/24 Subjective Awake, feeling tired, reports not sleeping for yesterday, c/o cough Requiring oxygen OVN, cta chest showing emphysema Room air tested showing 94%, will continue to treat with steroids ROS 10 point ROS as noted above, otherwise negative Physical Exam General: Alert and Oriented x3, NAD HEENT: Atraumatic, Normocephalic, PERRLA Neck: Supple, 2+ carotid pulse no bruit, JVD not distended Respiratory: Normal air movement, Expiratory wheezes, on RA Cardiovascular: No edema, Normal pulses, RRR, Normal S1 S2 Capillary refill: <2 Seconds Gastrointestinal: Normal bowel sounds, Soft and benign on palpation, NT/ND Musculoskeletal: No clubbing, No tenderness Integumentary: No rashes Neurological: Normal speech, Normal tone Vitals Reviewed Problem list Acute hypoxic respiratory failure secondary to COPD exacerbation Emphysema Lactic acidosis History of asthma Hypokalemia History of hypertension Smoking abuse Assessment and Plan Acute hypoxic respiratory failure secondary to COPD exacerbation Emphysema Lactic acidosis History of asthma -Lactic acid 2.5/3.5/2.2/2.0 -Troponin 10.2/10.6/12.8 -Levaquin -Follow blood culture -O2 protocol, RA -Nebulizers, ipratropium -Gentle IV fluids -Consulted Dr. Powell, alpha 1- antitrypsin ordered Hypokalemia- resolved -Potassium 4.2 -Monitor and replace as needed History of hypertension -Continue home medication Smoking abuse -Smoking cessation education provided DVT PPx SCD Full code LOS 24 hours Discharge Plan: Home Plan to discharge in: 24 Hours <Yeimy Tarango - Last Filed: 06/03/24 12:43> Patient seen and examined. Plan of care discussed with Tru Sukhdeep. Respiratory status improved. Patient is currently tolerating 2 L oxygen by nasal canula. Continue scheduled bronchodilators, IV steroid. Wean off oxygen. Pulmonary consulted. <zeenat wilde - Last Filed: 06/03/24 17:24>
[2024-06-03] MEDS: METHYLPREDNISOLONE 40 MG INJ ONE (13:58)
[2024-06-03] MEDS ORDERED: METHYLPREDNISOLONE 40 MG INJ IV ONE (14:00)
[2024-06-03] MEDS: METHYLPREDNISOLONE 40 MG INJ IV ONE (14:03)
[2024-06-03] MEDS: HYDRALAZINE HCL 20 MG/ML VIAL IV PRN (16:34)
[2024-06-03] MEDS: HYDROCODONE/APAP 7.5/325 MG TAB ONE (16:59)
[2024-06-03] MEDS: HYDROCODONE/APAP 7.5/325 MG TAB PO PRN (17:03)
[2024-06-03] MEDS: TRAZODONE 50 MG TABLET PO PRN (21:07)
[2024-06-04] MEDS: METHYLPREDNISOLONE 40 MG INJ IV SCH (00:02)
[2024-06-04 06:12] LABS: Absolute Lymphocytes (CBC) 0.6 K/uL (0.7-4.9); Absolute Monocytes 0.2 K/uL (0.1-1.3); Absolute Neutrophil 6.8 K/uL (1.8-8.0); Basophils % 0.4 % (0-1.3); Eosinophils % 0.3 % (0-4.4); Hematocrit 41.7 % (36.0-45.0); Hemoglobin 14.1 g/dL (12.0-15.0); Lymphocytes % 8.3 % (15.3-44.8); MCH 34.3 pg (27.0-35.0); MCHC 33.9 g/dL (32.0-36.0); MCV 101.1 fL (80-100); MPV 8.9 fL (7.6-11.3); Monocytes % 2.3 % (3.3-12.3); Neutrophils % 88.7 % (41.7-73.7); Platelets 159 thou/uL (152-406); RBC Red Blood Cell Count 4.12 M/uL (3.86-4.86); Red Cell Distribution Width 13.7 % (12.1-15.2)
[2024-06-04 09:11] LABS: Anion Gap 7.2 mEq/L (5.0-15.0); Magnesium 2.2 mg/dL (1.6-2.4); Phosphorus 4.3 mg/dL (2.5-4.9); Potassium 4.2 mEq/L (3.5-5.1)
[2024-06-04 10:18] VITALS: O2SAT 92
--- NOTE | 2024-06-04 11:19 | P.PN ---
Subjective Date of Service: 06/04/24 Chief Complaint: COPD exacerbation Subjective: Improving (Patient is improving doing well) Review of Systems General: Weakness Respiratory: Shortness of Breath Physical Examination - Vital Signs Temperature: 96.7 F Blood Pressure: 127/60 Pulse: 70 Respirations: 16 Pulse Ox (%): 92 - Physical Exam General: Alert, Oriented x3 Respiratory: Clear to auscultation bilaterally, Diminished Cardiovascular: No edema Assessment And Plan - Current Problems (Diagnosis) (1) COPD exacerbation Current Visit: Yes Status: Acute Plan: Patient admitted with COPD changes she has severe emphysematous changes on CT scan 1 antitrypsin is pending currently she is doing well 92% sat on room air without oxygen to ambulate to see if she qualifies for home O2 discharge on prednisone 20 mg twice a day for a week to continue with her Trelegy and short acting bronchodilator strongly counseled her not to smoke vital signs stable she can return to work in the next 2 to 4 days
[2024-06-04 12:25] VITALS: BP 133/72; TEMP 97.6
--- NOTE | 2024-06-04 15:16 | P.DS ---
Admission Date: 06/03/24 Discharge Date: 06/04/24 Disposition: ROUTINE DISCHARGE Discharge Condition: GOOD Reason for Admission: COPD exacerbation Brief History of Present Illness: Diagnosis Acute hypoxic respiratory failure secondary to COPD exacerbation Chronic Bronchiectasis Emphysema Lactic acidosis History of asthma Hypokalemia History of hypertension Smoking abuse HPI 06/02/24 Rhona Ladd is a 63-year-old female with past medical history of COPD, chronic bronchiectasis, asthma, hypertension, and Factor V Blood disorder, who presents to the ED with chief complaint of shortness of breath and wheezing. She reports going to work this morning but unable to breathe well when she arrived, she reports this happens with weather changes. She also reports having a medial meniscal surgery 3 weeks ago and recently finished p.o. antibiotics for removal of basal cell carcinoma from her left arm. On evaluation in the ED, lactic acid 2.5 with repeat of 3.5, WBC within normal limits, afebrile, and on room air. She was provided several DuoNeb treatments, steroids, and IV antibiotics and is much improved. She reports seeing Dr. Powell for her chronic lung conditions. Chest x-ray reports "No acute intrathoracic abnormalities." Rhona will be admitted to hospitalist service for 24-hour observation and monitoring of lactic acid as well as blood culture. Hospital Course: Rhona Ladd is a pleasant 63 year old female with a past medical history significant for COPD, chronic bronchiectasis, asthma, hypertension, and Factor V Blood disorder who was admitted to the [facility] on 06/02/2024 for acute hypoxic respiratory failure secondary to COPD exacerbation. Rhona presented to the ED with sever SOB. She has a history of COPD and reports exacerbations occuring when the weather changes. She continue to smoke but has attempted to decrease to 3 cigarettes. On evaluation, she was given steroids and nebulizer treatments in the ED which improved her condition and she was on RA. Throughout this admission she had intermittent exacerbations requiring oxygen via nasal cannula. CT chest showed extensive emphysematous changes in the lungs bilaterally. Room air at rest showed her saturation at 94% but while ambulating her saturation dropped to 82%. Home oxygen was set up and Dr. Powell was consulted. Dr. Powell will follow her oxygen needs and continue to treat her COPD. On 06/04/24, Rhona was seen on morning rounds and deemed medically stable for discharge with home oxygen. Rhona was discharged with instructions to schedule follow-up appointments with Andre and PCP. Rhona was provided prescriptions for prednisone and trazodone. Physical Exam General: AAO x3, NAD HEENT: Atraumatic, Normocephalic, PERRLA Neck: Supple, 2+ carotid pulse no bruit, JVD not distended Respiratory: Normal air movement, Expiratory wheezes, on 2 LNC Cardiovascular: No edema, Normal pulses, NSR, Normal S1 S2 Capillary refill: <2 Seconds Gastrointestinal: Normal bowel sounds, Soft on palpation, NT/ND Musculoskeletal: No clubbing, No tenderness Integumentary: No rashes Neurological: Normal speech, Normal tone Vital Signs/Physical Exam: Temp Pulse Resp BP Pulse Ox 97.6 F 75 16 133/72 92 06/04/24 12:00 06/04/24 12:00 06/04/24 12:00 06/04/24 12:00 06/04/24 12:00 Laboratory Data at Discharge: WBC 7.60 thou/uL (4.3-10.9) 06/04/24 05:43 Hgb 14.1 g/dL (12.0-15.0) 06/04/24 05:43 Hct 41.7 % (36.0-45.0) 06/04/24 05:43 Plt Count 159 thou/uL (152-406) 06/04/24 05:43 PT 10.7 SECONDS (9.4-12.5) 06/02/24 06:50 INR 0.95 06/02/24 06:50 APTT 33.4 SECONDS (24.3-36.9) 06/02/24 06:50 Sodium 141 mEq/L (136-145) 06/04/24 08:48 Potassium 4.2 mEq/L (3.5-5.1) 06/04/24 08:48 BUN 15 mg/dL (7-18) 06/04/24 08:48 Creatinine 0.88 mg/dL (0.55-1.02) 06/04/24 08:48 Glucose 160 mg/dL (74-106) H 06/04/24 08:48 Phosphorus 4.3 mg/dL (2.5-4.9) 06/04/24 08:48 Magnesium 2.2 mg/dL (1.6-2.4) 06/04/24 08:48 Home Medications: Citalopram [Celexa*] 10 mg PO DAILY 11/28/22 Losartan Potassium [Cozaar] 100 mg PO DAILY 11/28/22 Albuterol Sulfate [Albuterol Sulfate Hfa] 2 puff IH Q6H PRN #1 inhaler 11/30/22 Diclofenac Potassium 50 mg PO DAILY 03/28/24 Fluticasone/Umeclidin/Vilanter [Trelegy Ellipta 100-62.5-25] 1 each IH DAILY 03/28/24 Metoprolol Succinate [Toprol Xl*] 25 mg PO DAILY 03/28/24 Omeprazole [Prilosec] 40 mg PO DAILY 03/28/24 Trazodone [Desyrel*] 50 mg PO BEDTIME PRN PRN 15 Days #15 tab 06/04/24 predniSONE [Prednisone] 20 mg PO BID 10 Days #17 tab 06/04/24 New Medications: Trazodone [Desyrel*] 50 mg PO BEDTIME PRN PRN 15 Days #15 tab PRN Reason: Insomnia predniSONE [Prednisone] 20 mg PO BID 10 Days #17 tab Physician Discharge Instructions: 1. Please call and schedule a follow-up appointment with your PCP in 3-5 days - Please follow-up with your PCP for medication refills/adjustments 2. Please call and schedule a follow-up appointment with Dr. Powell in 3-5 days -Continue pulmonary health -Alpha-1 antitrypsin lab -Oxygen management 3. Continue Regular diet 4. No activity restrictions 5. Return to the ED if symptoms worsen New medications Trazodone 50 mg at bedtime as needed x 15 doses Prednisone 20 mg BID x seven days, then 20 mg daily x2 days, then 10 mg daily x 2 days (cut the 20 mg tablet in half to make a 10 mg tablet) Oxygen set to 2 LNC as needed, please follow up with Dr. Powell concerning continued need for oxygen Continue home medications as prescribed including trelegy nebulizers Home O2 set up: [address], [place] [address] Diet: Regular Activity: Ad fany Followup: Tim Powell MD [ACTIVE - CAN ADMIT] - (follow up in 3-5 days ) Prashant Villa DO [Primary Care Provider] - (follow up in 3-5 days)
--- NOTE | 2024-06-06 12:25 | EKG ---
Test Date: 2024-06-02 Test Time: 08:45:47 Distributor Operator: AM MEASUREMENT RESULTS: Intervals: Rate: 80 CO: 144 QRSD: 96 QT: 412 QTc: 475 Rousseau: P: 67 CO: 144 QRS: 35 T: 83 INTERPRETIVE STATEMENTS: Normal sinus rhythm Nonspecific ST and T wave abnormality Abnormal ECG Compared to ECG 03/28/2024 09:39:13 ST (T wave) deviation now present Sinus bradycardia no longer present Electronically Signed On 06-06-24 12:18:14 [employer] by Sagar Cox
== END 2024-06-04 15:50 | disposition home or self-care (01) | DRG 190 ==
LOC: ER 06:40 → ERHOLD 10:23 → 4TH 14:19 → OBSVTOIN 06-03 12:39
PROVIDERS: ADMIT Internal Medicine; ATTEND Internal Medicine
DX: J44.1 Chronic obstructive pulmonary disease with (acute) exacerbation (principal); J96.01 Acute respiratory failure with hypoxia; E87.20 Acidosis, unspecified; E87.6 Hypokalemia; I10 Essential (primary) hypertension; J43.9 Emphysema, unspecified; J47.9 Bronchiectasis, uncomplicated; D75.89 Other specified diseases of blood and blood-forming organs; F17.210 Nicotine dependence, cigarettes, uncomplicated; Z71.6 Tobacco abuse counseling; Z88.5 Allergy status to narcotic agent; Z88.1 Allergy status to other antibiotic agents; Z90.49 Acquired absence of other specified parts of digestive tract; Z79.82 Long term (current) use of aspirin; Z79.899 Other long term (current) drug therapy
CPT/HCPCS: 36415; 71045; 71275; 80048; 81003; 82103; 83605; 83735; 84100; 84484; 85025; 85610; 85730; 87040; 93005; 94640; 96361; 96365; 96367; 96375; 99285; G0378; J0360; J2919; J3475; J7030; J7040; J7613; J7614; J7644; Q9967

== ENCOUNTER 2024-07-28 05:59 | Day surgery (SDC) | payer BC ==
[2024-07-25 10:17] LABS: Absolute Eosinophils 0.2 K/uL (0-0.5); Absolute Monocytes 0.3 K/uL (0.1-1.3); Absolute Neutrophil 2.5 K/uL (1.8-8.0); Basophils % 0.5 % (0-1.3); Eosinophils % 4.9 % (0-4.4); Hematocrit 45.3 % (36.0-45.0); Hemoglobin 14.9 g/dL (12.0-15.0); MCH 33.1 pg (27.0-35.0); MCV 100.2 fL (80-100); MPV 8.9 fL (7.6-11.3); Monocytes % 6.7 % (3.3-12.3); Neutrophils % 48.9 % (41.7-73.7); Nucleated Red Blood Cells % 0.1 % (0-0); Platelets 170 thou/uL (152-406); RBC Red Blood Cell Count 4.52 M/uL (3.86-4.86); Red Cell Distribution Width 13.3 % (12.1-15.2)
[2024-07-25 12:10] LABS: Anion Gap 6.9 mEq/L (5.0-15.0); Potassium 4.9 mEq/L (3.5-5.1)
[2024-07-28] MEDS: Ringers Lactate 1,000 ML IV ONE (05:59)
[2024-07-28] MEDS ORDERED: propofoL 200 MG/20 ML VIAL IV ONE ×2 (06:41→08:52)
[2024-07-28] MEDS ORDERED: EPHEDRINE SULF 50 MG/ML VIAL ONE (06:42)
[2024-07-28] MEDS ORDERED: LIDOCAINE 1% MPF 5 ML VIAL ONE (06:42)
[2024-07-28] MEDS ORDERED: ATROPINE SULF 1 MG/10 ML SYR IV ONE (08:43)
[2024-07-28 09:37] VITALS: BP 164/82; TEMP 97.7; O2SAT 97
== END 2024-07-28 09:20 | disposition home or self-care (01) ==
LOC: OR 05:59
PROVIDERS: ATTEND Internal Medicine Gastroenterology
PROC: 0DBL8ZX Excision of Transverse Colon, Via Natural or Artificial Opening Endoscopic, Diagnostic (ICD-10-PCS; 2024-07-28)
PROC: 0DBP8ZX Excision of Rectum, Via Natural or Artificial Opening Endoscopic, Diagnostic (ICD-10-PCS; principal; 2024-07-28 08:02)
DX: Z12.11 Encounter for screening for malignant neoplasm of colon (principal); Z86.0100 Personal history of colon polyps, unspecified; D12.7 Benign neoplasm of rectosigmoid junction; D12.3 Benign neoplasm of transverse colon
CPT/HCPCS: 85025; 80048; 36415; 88305; 45385; J2704 ×2; J2003; J0461; J7120

== ENCOUNTER 2024-09-04 09:21 | Emergency (ER) | payer BC, OTHER ==
[2024-09-04] MEDS ORDERED: TRAMADOL HCL 50 MG TAB ONE (09:47)
[2024-09-04] MEDS ORDERED: CEPHALEXIN 250 MG CAP ONE (09:47)
--- NOTE | 2024-09-04 09:47 | ER ---
Nurse's Notes [facility] Name: Rhona Ladd Age: 64 yrs Sex: Female : 1960 Arrival Date: 09/04/2024 Time: 09:21 Bed IW1 Private MD: Diagnosis: Cellulitis of face Presentation: 09/04 09:42 Chief complaint: Abscess on chin x 2 days. Coronavirus screen: At this time, the client hb does not indicate any symptoms associated with coronavirus-19. Ebola Screen: No symptoms or risks identified at this time. Initial Sepsis Screen: Does the patient meet any 2 criteria? No. Patient's initial sepsis screen is negative. Does the patient have a suspected source of infection? No. Patient's initial sepsis screen is negative. Risk Assessment: Do you want to hurt yourself or someone else? Patient reports no desire to harm self or others. Onset of symptoms was September 03, 2024. 09:42 Method Of Arrival: Ambulatory hb 09:42 Acuity: CHON 4 hb Triage Assessment: 09:42 General: Appears in no apparent distress. Behavior is calm, cooperative. Pain: Pain hb currently is 8 out of 10 on a pain scale. Neuro: Level of Consciousness is awake, alert, obeys commands, Oriented to person, place, time, situation. Cardiovascular: Patient's skin is warm and dry. Respiratory: Respiratory effort is even, unlabored, Respiratory pattern is regular, symmetrical. Derm: Abscess located on submental area is nickel sized, has no drainage, is red. Historical: - Allergies: 09:43 Bactrim; hb 09:43 Morphine; hb 09:43 Soma; hb - PMHx: 09:43 Asthma; Hypertension; hb - PSHx: 09:43 bowel resection; Appendectomy; section; Cholecystectomy; ARTEM IN HER FEMUR; hb - Immunization history:: Adult Immunizations up to date. - Infectious Disease History:: Denies. - Social history:: Smoking status: Patient/guardian denies using tobacco, Stopped _ months ago 3. - Family history:: not pertinent. - Hospitalizations: : No recent hospitalization is reported. Screenin:[facility] ED Fall Risk Assessment (Adult) History of falling in the last 3 months, hb including since admission No falls in past 3 months (0 pts) Confusion or Disorientation No (0 pts) Intoxicated or Sedated No (0 pts) Impaired Gait No (0 pts) Mobility Assist Device Used No (0 pt) Altered Elimination No (0 pt) Score/Fall Risk Level 0 - 2 = Low Risk Oriented to surroundings, Maintained a safe environment, Educated pt \T\ family on fall prevention, incl call for assistance when getting out of bed. Abuse screen: Denies threats or abuse. Denies injuries from another. Nutritional screening: No deficits noted. Tuberculosis screening: No symptoms or risk factors identified. Assessment: 09:53 General: SEE TRIAGE ASSESSMENT . hb Vital Signs: 09:42 BP 132 / 80; Pulse 72; Resp 16; Temp 97.8(TE); Pulse Ox 100% on R/A; Weight 90.72 kg; hb Height 5 ft. 8 in. ; Pain 8/10; 09:42 Body Mass Index 30.41 (90.72 kg, 172.72 cm) hb 09:42 Pain Scale: Adult hb ED Course: 09:26 Patient arrived in ED. al6 09:28 Oscar Mendez MD is Attending Physician. rn 09:43 Triage completed. hb 09:43 Arm band placed on. hb 09:53 Patient has correct armband on for positive identification. Provided Education on: hb MEDICATIONS, WOUND CARE, FOLLOW UP. 09:53 No provider procedures requiring assistance completed. Patient did not have IV access hb during this emergency room visit. 09:55 Nanci Olivas, RN is Primary Nurse. hb Administered Medications: 09:54 Drug: Clindamycin PO 300 mg PO once Route: PO; hb 09:55 Follow up: Response: Medication administered at discharge. hb 09:54 Drug: Cephalexin PO 500 mg PO once Route: PO; hb 09:55 Follow up: Response: Medication administered at discharge. hb 09:54 Drug: traMADol PO 50 mg PO once Route: PO; hb 09:54 Follow up: Response: Medication administered at discharge. hb Medication: :53 VIS not applicable for this client. hb Outcome: 09:47 Discharge ordered by . rn 09:53 Discharged to home ambulatory, with significant other, hb 09:53 Condition: stable 09:53 Discharge instructions given to patient, Instructed on discharge instructions, follow up and referral plans. medication usage, wound care, Demonstrated understanding of instructions, follow-up care, medications, wound care, Prescriptions given X 3, 09:55 Patient left the ED. hb Signatures: Oscar Mendez MD MD rn Baxter, Heather, RN RN hb Landin, Alissa al6
--- NOTE | 2024-09-04 09:47 | EDPHYS ---
Physician Documentation [facility] Name: Rhona Ladd Age: 64 yrs Sex: Female : 1960 Arrival Date: 09/04/2024 Time: 09:21 Bed IW1 Private MD: ED Physician Oscar Mendez HPI: 09/04 09:45 This 64 yrs old Female presents to ER via Ambulatory with complaints of chin problem. rn 09:45 the patient presents with a swollen area of the chin. Onset: The symptoms/episode rn began/occurred yesterday. Modifying factors: the symptoms are alleviated by nothing, the symptoms are aggravated by touching. The patient has not experienced similar symptoms in the past. Patient reports was plucking her chin hair the other day, but yesterday noticed redness and swelling to the chin with tenderness to palpation. No drainage. No fever or chills. No recurrent or chronic skin infections.. Historical: - Allergies: 09:43 Bactrim; hb 09:43 Morphine; hb 09:43 Soma; hb - PMHx: 09:43 Asthma; Hypertension; hb - PSHx: 09:43 bowel resection; Appendectomy; section; Cholecystectomy; ARTEM IN HER FEMUR; hb - Immunization history:: Adult Immunizations up to date. - Infectious Disease History:: Denies. - Social history:: Smoking status: Patient/guardian denies using tobacco, Stopped _ months ago 3. - Family history:: not pertinent. - Hospitalizations: : No recent hospitalization is reported. ROS: 09:45 Constitutional: Negative for fever, chills, and weight loss, Skin: Positive for swollen rn area with redness to the chin Exam: 09:45 Constitutional: This is a well developed, well nourished patient who is awake, alert, rn and in no acute distress. Skin: Warm, dry, 2 cm area, irregular, to chin without fluctuance. No extension into neck or submandibular space. No crepitus. Vital Signs: 09:42 BP 132 / 80; Pulse 72; Resp 16; Temp 97.8(TE); Pulse Ox 100% on R/A; Weight 90.72 kg; hb Height 5 ft. 8 in. ; Pain 8/10; 09:42 Body Mass Index 30.41 (90.72 kg, 172.72 cm) hb 09:42 Pain Scale: Adult hb MDM: 09:28 Medical Screening Exam initiated rn 09:45 Differential diagnosis: cellulitis. Data reviewed: vital signs, nurses notes, and as a rn result, I will discharge patient. Counseling: I had a detailed discussion with the patient and/or guardian regarding the historical points, exam findings, and any diagnostic results supporting the discharge/admit diagnosis, the need for outpatient follow up, to return to the emergency department if symptoms worsen or persist or if there are any questions or concerns that arise at home. Special discussion: I discussed with the patient/guardian in detail that at this point there is no indication for admission to the hospital. It is understood, however, that if the symptoms persist or worsen the patient needs to return immediately for re-evaluation. ED course: No fluctuance evident to indicate emergent incision and drainage. Will discharge home with antibiotics and given return precautions. Already doing warm compresses.. Administered Medications: 09:54 Drug: Clindamycin PO 300 mg PO once Route: PO; hb 09:55 Follow up: Response: Medication administered at discharge. hb 09:54 Drug: Cephalexin PO 500 mg PO once Route: PO; hb 09:55 Follow up: Response: Medication administered at discharge. hb 09:54 Drug: traMADol PO 50 mg PO once Route: PO; hb 09:54 Follow up: Response: Medication administered at discharge. hb Disposition Summary: 09/04/24 09:47 Discharge Ordered Notes: Location: Home rn Problem: new rn Symptoms: have improved rn Condition: Stable rn Diagnosis - Cellulitis of face rn Followup: rn - With: Private Physician - When: As needed - Reason: Recheck today's complaints, Re-evaluation by your physician Discharge Instructions: - Discharge Summary Sheet rn - Cellulitis, Adult rn Forms: - Medication Reconciliation Form rn - Antibiotic yarn wrapper - Prescription Opioid Use rn - Patient Portal Instructions rn - Leadership Thank You Letter rn Prescriptions: - Cephalexin 500 mg Oral Capsule - take 1 capsule ORAL route every 12 hours for 10 days; 20 capsule; Refills: 0, rn Product Selection Permitted - Clindamycin HCl 300 mg Oral Capsule - take 1 capsule ORAL route every 6 hours for 10 days; 40 capsule; Refills: 0, rn Product Selection Permitted - Tramadol 50 mg Oral Tablet - take 1 tablet ORAL route every 8 hours as needed; 12 tablet; Refills: 0, rn Product Selection Permitted Signatures: Oscar Mendez MD MD rn Nanci Olivas, TESSA ZARATE hb
[2024-09-04 10:19] VITALS: BP 132/80; TEMP 97.8; O2SAT 100
== END 2024-09-04 09:55 | disposition home or self-care (01) ==
LOC: ER 09:21
DX: L03.211 Cellulitis of face (principal)
CPT/HCPCS: 99283

== ENCOUNTER 2024-10-16 20:31 | Emergency (ER) | payer OTHER ==
--- NOTE | 2024-10-16 21:06 | RAD REPORT ---
EXAMINATION: CT ABDOMEN AND PELVIS WITHOUT CONTRAST CLINICAL INDICATION: R flank pain TECHNIQUE: CT abdomen and pelvis was performed, without IV contrast, as per department protocol. Axia l, sagittal and coronal reconstructions were obtained. One or more of the following dose reduction techniques were used: Automated exposure control, adjustment of the mA and kV according to the patien t size, and iterative reconstruction. Unless otherwise specified, incidental findings do not require dedicated imaging follow-up. COMPARISON: 06/17/2024 FINDINGS: The lack of intravenous contrast limits the sensitivity of this exam for evaluation of solid visceral organs, vascular structures, and retroperitoneum. LOWER CHEST: Emphysematous lung bases. LIVER:Normal in size and contour. No focal lesion. Cholecystectomy clips. SPLEEN: Normal size. No focal lesion. PANCREAS: No mass, ductal dilation, or eduar-pancreatic fluid. ADRENALS: Normal; no mass. KIDNEYS AND URETERS: Normal size and contour. No hydronephrosis. URINARY BLADDER: Normal contour. GASTROINTESTINAL TRACT: No evidence of bowel obstruction, significant free fluid, free air or abscess . Postsurgical changes about the stomach. Small fat-containing para midline ventral hernia. APPENDIX: Appendix not visualized, but no inflammatory changes in region of appendix. LYMPH NODES: No lymphadenopathy. MUSCULOSKELETAL: Proximal right femoral hardware. ADDITIONAL FINDINGS: Aortic atherosclerosis. IMPRESSION: No acute or concerning abnormalities in the abdomen or pelvis, with evaluation limited by lack of IV contrast.
[2024-10-16] MEDS ORDERED: ONDANSETRON 4 MG/2 ML VIAL ONE (21:08)
[2024-10-16] MEDS ORDERED: NA CHLORIDE 0.9% 1,000 ML ONE (21:08)
[2024-10-16] MEDS ORDERED: FENTANYL CITR 100 MCG/2 ML ONE (21:10)
[2024-10-16 21:42] LABS: Specific Gravity > 1.030 (1.005-1.030); Sqamous Epithelial <5 /HPF (None Seen); Urine Bacteria None Seen /HPF (<20); Urine Bilirubin NEGATIVE (Negative); Urine Blood Negative (Negative); Urine Clarity Clear (Clear); Urine Color Yellow (Yellow); Urine Crystals Unidentified Few /HPF (None Seen); Urine Culture Reflex Order NOT NEEDED; Urine Glucose NEGATIVE (Negative); Urine Ketones NEGATIVE (Negative); Urine Micro Reflex YN NO BILL MICROSCOPIC; Urine Mucus Slight /HPF (None Seen); Urine Nitrite NEGATIVE (Negative); Urine Protein TRACE (Negative); Urine RBC <5 /HPF (None Seen); Urine Urobilinogen 1+ (Normal); Urine WBC <5 /HPF (<5); Urine WBC Clump Rare /HPF (None Seen); Urine Yeast (Budding) Trace /HPF (None Seen)
[2024-10-16 23:16] LABS: Absolute Eosinophils 0.4 K/uL (0-0.5); Absolute Lymphocytes (CBC) 2.2 K/uL (0.7-4.9); Absolute Monocytes 0.4 K/uL (0.1-1.3); Absolute Neutrophil 2.8 K/uL (1.8-8.0); Basophils % 0.7 % (0-1.3); Hematocrit 41.8 % (36.0-45.0); Hemoglobin 14.5 g/dL (12.0-15.0); Lymphocytes % 37.9 % (15.3-44.8); MCH 33.7 pg (27.0-35.0); MCHC 34.7 g/dL (32.0-36.0); MCV 97.3 fL (80-100); Monocytes % 7.6 % (3.3-12.3); Neutrophils % 47.8 % (41.7-73.7); Nucleated Red Blood Cells % 0.3 % (0-0); Platelets 170 thou/uL (152-406); Red Cell Distribution Width 13.6 % (12.1-15.2)
[2024-10-16 23:54] LABS: Anion Gap 9.6 mEq/L (5.0-15.0); Potassium 3.6 mEq/L (3.5-5.1)
--- NOTE | 2024-10-17 00:08 | EDPHYS ---
Physician Documentation [facility] Name: Rhona Ladd Age: 64 yrs Sex: Female : 1960 Arrival Date: 10/16/2024 Time: 20:31 Bed 16 Private MD: ED Physician Henrik Stephen HPI: 10/16 20:50 This 64 yrs old Female presents to ER via Ambulatory with complaints of Low ec2 Back Pain, Possible Kidney Stone. 20:50 Patient arrives today for evaluation of right flank pain. Reports right flank pain that ec2 has been intermittent since last night. Patient reports associated nausea. No vomiting. States that she feels that she passed a kidney stone as she has a history of kidney stones. Patient reports previous abdominal surgeries including abdominal hernia. Reports hematuria as well.. Historical: - Allergies: 20:44 Bactrim; cp4 20:44 Soma; cp4 20:44 Morphine; cp4 - PMHx: 20:44 Asthma; Hypertension; cp4 - PSHx: 20:44 Appendectomy; bowel resection; section; Cholecystectomy; ARTEM IN HER FEMUR; cp4 - Immunization history:: Adult Immunizations up to date. - Infectious Disease History:: Denies. - Social history:: Smoking status: Patient/guardian denies using tobacco, Stopped _ months ago 6. ROS: 20:50 Constitutional: as per hpi ec2 Exam: 20:50 Constitutional: GEN: NAD Head: atraumatic Eyes: EOMI Ears: External ears are ec2 normal. CV: regular rate LUNGS: no respiratory distress ABD: non-distended, soft, nontender, not guarding, CVA TTP. SKIN: no evidence of rashes MSK: no evidence of trauma Vital Signs: 20:42 BP 185 / 86; Pulse 57; Resp 18; Temp 97.7; Pulse Ox 93% ; Weight 83.91 kg; Height 5 ft. cp4 8 in. ; Pain 7/10; 22:57 BP 162 / 77; Pulse 64; Resp 18; Pulse Ox 95% ; cp4 23:58 BP 164 / 81; Pulse 49; Resp 18; Pulse Ox 92% ; cp4 20:42 Body Mass Index 28.13 (83.91 kg, 172.72 cm) cp4 20:42 Pain Scale: Adult cp4 MDM: 20:41 Medical Screening Exam initiated ec2 20:50 Data reviewed: vital signs, nurses notes. ED course: Patient arrives today for ec2 evaluation of right-sided flank pain. Examination yields abdominal findings as above. Will obtain lab work, CT imaging. DDx includes ureteral stone, UTI, appendicitis, gallbladder pathology. 21:14 ED course: CT negative for acute intra-abdominal process.. ec2 10/17 00:07 ED course: Labs are nonactionable, on reassessment patient is well-appearing no acute ec2 distress. Will discharge home per return precautions given.. 10/16 20:48 Order name: CBC with Diff; Complete Time: 23:48 ec2 10/16 20:48 Order name: BMP; Complete Time: 00:07 ec2 10/16 20:48 Order name: UAM; Complete Time: 22:07 ec2 10/16 20:48 Order name: CT Abd/Pelvis - Without Contrast; Complete Time: 21:14 ec2 10/16 20:48 Order name: IV; Complete Time: 22:56 ec2 10/16 23:19 Order name: Misc. Order: recollect on green top; Complete Time: 23:25 vk Administered Medications: 10/16 22:56 Drug: fentaNYL (PF) IVP 50 mcg IVP once Route: IVP; Site: right upper arm; 4 10/17 00:00 Follow up: Response: No adverse reaction; Pain is decreased 4 10/16 22:56 Drug: Ondansetron IVP 4 mg IVP once; over 2 minutes Route: IVP; Site: right upper arm; cp4 10/17 00:00 Follow up: Response: No adverse reaction [facility] 10/16 22:56 Drug: NS 0.9% IV 1000 ml IV at 1000 ml once; to be given as a bolus over 60 minutes cp4 Route: IV; Rate: 1000 ml; Site: right upper arm; 10/17 00:00 Follow up: IV Status: Completed infusion cp4 Disposition Summary: 10/17/24 00:08 Discharge Ordered Notes: Location: Home ec2 Condition: Stable ec2 Diagnosis - Flank Pain ec2 Followup: ec2 - With: Private Physician - When: - Reason: Recheck today's complaints, Re-evaluation by your physician Discharge Instructions: - Discharge Summary Sheet ec2 - Flank Pain, Adult, [id number] ec2 Forms: - Medication Reconciliation Form ec2 - Antibiotic Education ec2 - Prescription Opioid Use ec2 - Patient Portal Instructions ec2 - Leadership Thank You Letter ec2 Prescriptions: - Cephalexin 500 mg Oral capsule - take 1 capsule ORAL route every 8 hours for 5 days; 15 capsule; Refills: 0, ec2 Product Selection Permitted Signatures: Dispatcher [employer] EDMS Henrik Stephen MD MD ec2 Keysha Mann cp4 Flor Wilson Corrections: (The following items were deleted from the chart) 10/16 20:48 20:48 Abdomen Pelvis Wo Con+CT.RAD.BRZ ordered. EDMS EDMS 20:48 20:48 CBC+H.LAB.BRZ ordered. EDMS EDMS 20:48 20:48 BASIC METABOLIC PANEL+C.LAB.BRZ ordered. EDMS EDMS 20:48 20:48 Urinalysis W/Microscopic+U.LAB.BRZ ordered. EDMS EDMS
--- NOTE | 2024-10-17 00:08 | ER ---
Nurse's Notes [facility] Name: Rhona Ladd Age: 64 yrs Sex: Female : 1960 Arrival Date: 10/16/2024 Time: 20:31 Bed 16 Private MD: Diagnosis: Flank Pain Presentation: 10/16 20:42 Chief complaint: Patient states: right flank pain that started yesterday. States small cp4 amount of blood in urine. Has hx of kidney stones. Coronavirus screen: Client denies travel out of the [place] in the last 14 days. At this time, the client does not indicate any symptoms associated with coronavirus-19. Ebola Screen: Patient negative for fever greater than or equal to 101.5 degrees Fahrenheit, and additional compatible Ebola Virus Disease symptoms Patient denies exposure to infectious person. Patient denies travel to an Ebola-affected area in the 21 days before illness onset. No symptoms or risks identified at this time. Initial Sepsis Screen: Does the patient meet any 2 criteria? No. Patient's initial sepsis screen is negative. Does the patient have a suspected source of infection? No. Patient's initial sepsis screen is negative. Risk Assessment: Do you want to hurt yourself or someone else? Patient reports no desire to harm self or others. Onset of symptoms was October 15, 2024. 20:42 Method Of Arrival: Ambulatory cp4 20:42 Acuity: CHON 3 cp4 Triage Assessment: 20:44 General: Appears in no apparent distress. uncomfortable, Behavior is calm, cooperative, cp4 appropriate for age. Pain:. Pain: Complains of pain in right flank Pain does not radiate. Pain currently is 7 out of 10 on a pain scale. GI: No signs and/or symptoms were reported involving the gastrointestinal system. Reports Pain is 7 out of 10 on a pain scale. : Reports blood in urine. Derm: No signs and/or symptoms reported regarding the dermatologic system. Musculoskeletal: No signs and/or symptoms reported regarding the musculoskeletal system. Historical: - Allergies: 20:44 Bactrim; cp4 20:44 Soma; cp4 20:44 Morphine; cp4 - PMHx: 20:44 Asthma; Hypertension; cp4 - PSHx: 20:44 Appendectomy; bowel resection; section; Cholecystectomy; ARTEM IN HER FEMUR; cp4 - Immunization history:: Adult Immunizations up to date. - Infectious Disease History:: Denies. - Social history:: Smoking status: Patient/guardian denies using tobacco, Stopped _ months ago 6. Screenin:53 [facility] ED Fall Risk Assessment (Adult) History of falling in the last 3 months, kj2 including since admission No falls in past 3 months (0 pts) Confusion or Disorientation No (0 pts) Intoxicated or Sedated No (0 pts) Impaired Gait No (0 pts) Mobility Assist Device Used No (0 pt) Altered Elimination. [facility] ED Fall Risk Assessment (Adult) History of falling in the last 3 months, including since admission Score/Fall Risk Level 0 - 2 = Low Risk Maintained a safe environment, Hourly rounding (assess needs \T\ fall precautionary measures) done. Abuse screen: Denies threats or abuse. Denies injuries from another. Nutritional screening: No deficits noted. Tuberculosis screening: No symptoms or risk factors identified. Assessment: 20:51 General: Appears in no apparent distress. Behavior is calm, cooperative. Pain: kj2 Complains of pain in right flank Pain currently is 8 out of 10 on a pain scale. Neuro: Level of Consciousness is awake, alert, obeys commands, Oriented to person, place, time, situation. Cardiovascular: Patient's skin is warm and dry. Respiratory: Airway is patent Respiratory effort is even, unlabored. GI: No signs and/or symptoms were reported involving the gastrointestinal system. : No signs and/or symptoms were reported regarding the genitourinary system. 10/17 00:27 GI: Bowel sounds present X 4 quads. Abd is soft and non tender X 4 quads. cp4 Vital Signs: 10/16 20:42 BP 185 / 86; Pulse 57; Resp 18; Temp 97.7; Pulse Ox 93% ; Weight 83.91 kg; Height 5 ft. cp4 8 in. ; Pain 7/10; 22:57 BP 162 / 77; Pulse 64; Resp 18; Pulse Ox 95% ; cp4 23:58 BP 164 / 81; Pulse 49; Resp 18; Pulse Ox 92% ; cp4 20:42 Body Mass Index 28.13 (83.91 kg, 172.72 cm) cp4 20:42 Pain Scale: Adult cp4 ED Course: 20:33 Patient arrived in ED. im 20:34 Henrik Stephen MD is Attending Physician. ec2 20:44 Triage completed. cp4 20:44 Arm band placed on right wrist. Patient placed in waiting room. cp4 20:49 Maggi Mazariegos, TESSA is Primary Nurse. kj2 20:54 Patient has correct armband on for positive identification. Bed in low position. Call kj2 light in reach. Adult w/ patient. Provided Education on: call light. 21:03 CT Abd/Pelvis - Without Contrast In Process Unspecified. EDMS 22:55 No provider procedures requiring assistance completed. Missed attempt(s): 22 gauge in cp4 right forearm. 22:55 Missed attempt(s): 22 gauge in left forearm. cp4 22:55 Inserted saline lock: 22 gauge in right upper arm, using aseptic technique. Blood cp4 collected. Flushed with 10 mL NS. 10/17 00:26 intact, bleeding controlled, No redness/swelling at site. Pressure dressing applied. cp4 Administered Medications: 10/16 22:56 Drug: fentaNYL (PF) IVP 50 mcg IVP once Route: IVP; Site: right upper arm; 4 10/17 00:00 Follow up: Response: No adverse reaction; Pain is decreased 4 10/16 22:56 Drug: Ondansetron IVP 4 mg IVP once; over 2 minutes Route: IVP; Site: right upper arm; 4 10/17 00:00 Follow up: Response: No adverse reaction 4 03 22:56 Drug: NS 0.9% IV 1000 ml IV at 1000 ml once; to be given as a bolus over 60 minutes cp4 Route: IV; Rate: 1000 ml; Site: right upper arm; 10/17 00:00 Follow up: IV Status: Completed infusion cp4 Medication: 10/16 20:54 VIS not applicable for this client. kj2 Outcome: 10/17 00:08 Discharge ordered by . ec2 00:26 Discharged to home ambulatory, cp4 00:26 Condition: stable 00:26 Discharge instructions given to patient, family, Instructed on discharge instructions, follow up and referral plans. medication usage, Demonstrated understanding of instructions, follow-up care, medications, Prescriptions given X 1, 00:27 Patient left the ED. cp4 Signatures: Dis[facility] Hilda Del Rosario Henrik Stephen MD MD ec2 Keysha Mann cp4 Maggi Mazariegos, RN RN kj2
[2024-10-17 00:31] VITALS: TEMP 97.7
[2024-10-17 00:34] VITALS: BP 164/81; O2SAT 92
== END 2024-10-17 00:27 | disposition home or self-care (01) ==
LOC: ER 20:31
DX: R10.9 Unspecified abdominal pain (principal); Z87.442 Personal history of urinary calculi
CPT/HCPCS: 96361; 85025; 81001; 80048; 36415; 74176; 96375; 96374; 99284; J3010; J2405; J7030

== ENCOUNTER 2024-10-20 16:26 | Emergency (ER) | payer OTHER ==
--- NOTE | 2024-10-20 17:30 | RAD REPORT ---
Procedure: Chest Single View HISTORY: Cough COMPARISON: 2023 FINDINGS: The lungs appear clear of acute infiltrate. Lungs are mildly to moderately hyperaerated consistent wi th COPD. No significant pleural effusion noted. The heart is normal size. IMPRESSION: No acute abnormality is displayed.
[2024-10-20 19:33] LABS: Absolute Eosinophils 0.4 K/uL (0-0.5); Absolute Lymphocytes (CBC) 1.3 K/uL (0.7-4.9); Absolute Monocytes 0.4 K/uL (0.1-1.3); Absolute Neutrophil 2.7 K/uL (1.8-8.0); Basophils % 0.7 % (0-1.3); Eosinophils % 7.3 % (0-4.4); Hemoglobin 15.3 g/dL (12.0-15.0); Lymphocytes % 26.7 % (15.3-44.8); MCH 32.7 pg (27.0-35.0); MCHC 33.3 g/dL (32.0-36.0); MCV 98.1 fL (80-100); MPV 8.2 fL (7.6-11.3); Monocytes % 8.4 % (3.3-12.3); Neutrophils % 56.9 % (41.7-73.7); Nucleated Red Blood Cells % 0.2 % (0-0); Platelets 160 thou/uL (152-406); RBC Red Blood Cell Count 4.69 M/uL (3.86-4.86); Red Cell Distribution Width 13.6 % (12.1-15.2)
[2024-10-20 19:50] LABS: Albumin 3.6 g/dL (3.4-5.0); Albumin/Globulin Ratio 1.1 (1.1-1.8); Anion Gap 4.8 mEq/L (5.0-15.0); Bilirubin Total 0.6 mg/dL (0.2-1.0); Globulin 3.3 g/dL (2.3-3.5); Potassium 3.8 mEq/L (3.5-5.1); Protein, Total 6.9 g/dL (6.4-8.2); Troponin High Sensitivity 7.7 pg/mL (<58.9)
[2024-10-20] MEDS ORDERED: Magnesium Sulfate 2gm IVPB 2 G/50 ML BAG IV ONE (20:18)
[2024-10-20] MEDS ORDERED: KETOROLAC 30 MG/ML INJ ONE (20:18)
[2024-10-20] MEDS ORDERED: ALBUTEROL 2.5 MG/3 ML NEB SOL ONE (20:18)
[2024-10-20] MEDS ORDERED: METHYLPREDNISOLONE 125 MG INJ ONE (20:18)
[2024-10-20] MEDS ORDERED: IPRATROPIUM BROM 0.5MG/2.5ML ONE (20:18)
[2024-10-20] MEDS ORDERED: ONDANSETRON 4 MG/2 ML VIAL ONE (21:10)
[2024-10-20] MEDS ORDERED: HYDRALAZINE HCL 25 MG TABLET ONE (21:11)
[2024-10-20] MEDS ORDERED: FENTANYL CITR 100 MCG/2 ML ONE ×2 (21:11→23:10)
[2024-10-20] MEDS ORDERED: methocarbamoL 750 MG TAB ONE (23:10)
--- NOTE | 2024-10-20 23:47 | EDPHYS ---
Physician Documentation [facility] Name: Rhona Ladd Age: 64 yrs Sex: Female : 1960 Arrival Date: 10/20/2024 Time: 16:26 Bed DX5 Private MD: ED Physician Ihsan Espinosa HPI: 10/21 15:52 This 64 yrs old Female presents to ER via Ambulatory with complaints of Arm sp4 Pain, Chest Pain, High Blood Pressure. 10/20 16:58 The patient has been recently seen at the [facility] Emergency sw6 Department, this week. The patient presents from home for evaluation for right lower chest wall pain since Thursday. Today is . No injury or trauma. She reports she was recently seen here and was diagnosed with a kidney stone that she has since passed. She was then seen here several days later and was prescribed antibiotics for suspected UTI. She reports that despite antibiotics her pain has continued to worsen. She is not take any pain medications at home. She does have a cough. No fevers. She also feels short of breath and winded when she walks around. She does have a history of COPD and quit smoking on . She does have an albuterol inhaler that she uses and last had a treatment this morning. No sick contacts. No fevers. She does intermittently have chest wall pain. No dysuria or hematuria. She does complain of nausea but no vomiting. Here for evaluation.. Historical: - Allergies: 16:44 Bactrim; iw 16:44 Morphine; iw 16:44 Soma; iw - PMHx: 16:44 Asthma; Hypertension; iw - PSHx: 16:44 Appendectomy; bowel resection; section; ARTEM IN HER FEMUR; Cholecystectomy; iw - Immunization history:: Adult Immunizations up to date. - Infectious Disease History:: Denies. - Social history:: Smoking status: Patient/guardian denies using tobacco, the patient reports quitting approximately 7 years ago. ROS: 16:58 Constitutional: Negative for fever, chills, and weight loss, MS/Extremity: Negative for sw6 injury and deformity, Skin: Negative for injury, rash, and discoloration, Neuro: Negative for headache, weakness, numbness, tingling, and seizure, 16:58 Cardiovascular: Positive for chest pain, 16:58 Respiratory: Positive for cough, dyspnea on exertion, 16:58 Abdomen/GI: Positive for nausea, Negative for vomiting, diarrhea, 16:58 All other systems are negative, Exam: 16:58 ECG was reviewed by the Attending Physician. sw6 16:58 Constitutional: This is a well developed, well nourished patient who is awake, alert, sw6 and in no acute distress. Cardiovascular: Regular rate and rhythm with a normal S1 and S2. No gallops, murmurs, or rubs. Normal PMI, no JVD. No pulse deficits. Abdomen/GI: Soft, non-tender, with normal bowel sounds. No distension or tympany. No guarding or rebound. No evidence of tenderness throughout. 16:58 Head/Face: Normocephalic, atraumatic. 16:58 Neck: ROM/movement: is normal, is supple, 16:58 Respiratory: Poor air movement to bilateral lung palmer without any audible wheezing. She is able to speak in full and complete sentences and has no use of accessory muscles., 16:58 Back: ROM is normal, painless, 16:58 Skin: Appearance: normal except for affected area, 16:58 Neuro: Exam negative for focal neuro deficits, 10/21 15:52 Constitutional: This is a well developed, well nourished patient who is awake, alert, sp4 and in no acute distress. Head/Face: Normocephalic, atraumatic. Eyes: Pupils equal round and reactive to light, extra-ocular motions intact. Lids and lashes normal. Conjunctiva and sclera are not injected. Cornea within normal limits. Periorbital areas with no swelling, redness, or edema. ENT: Nares patent. No nasal discharge, no septal abnormalities noted. Tympanic membranes are normal and external auditory canals are clear. Oropharynx with no redness, swelling, or masses, exudates, or evidence of obstruction, uvula midline. Mucous membranes moist. Neck: Trachea midline, no thyromegaly or masses palpated, and no cervical lymphadenopathy. Supple, full range of motion without nuchal rigidity, or vertebral point tenderness. Chest/axilla: Normal chest wall appearance and motion. Nontender with no deformity. No lesions are appreciated. Cardiovascular: Regular rate and rhythm with a normal S1 and S2. No gallops, murmurs, or rubs. Normal PMI, no JVD. No pulse deficits. Respiratory: Lungs have equal breath sounds bilaterally, clear to auscultation and percussion. No rales, rhonchi or wheezes noted. No increased work of breathing, no retractions or nasal flaring. Abdomen/GI: Soft, with normal bowel sounds. No distension or tympany. No guarding or rebound. No evidence of tenderness throughout. Back: No spinal tenderness. No costovertebral tenderness. Skin: Warm, dry with normal turgor. Normal color with no rashes, no lesions, and no evidence of cellulitis. MS/ Extremity: Pulses equal, no cyanosis. Neurovascular intact. Full, normal range of motion. Neuro: Awake and alert, GCS 15, oriented to person, place, time, and situation. Cranial nerves II-XII grossly intact. Motor strength 5/5 in all extremities. Sensory grossly intact. Psych: Awake, alert, with orientation to person, place and time. Behavior, mood, and affect are within normal limits Vital Signs: 10/20 16:44 BP 194 / 104; Pulse 61; Resp 18; Temp 98.4; Pulse Ox 94% on R/A; Weight 83.91 kg; iw Height 5 ft. 8 in. ; Pain 8/10; 22:00 BP 167 / 99; Pulse 62; Resp 17 S; Pulse Ox 98% on R/A; ha1 23:20 BP 171 / 87; Pulse 62; Resp 17 S; Temp 97.9(T); Pulse Ox 98% on R/A; ha1 16:44 Body Mass Index 28.13 (83.91 kg, 172.72 cm) iw 16:44 Pain Scale: Adult iw [facility] Coma Score: 10/21 15:52 Eye Response: spontaneous(4). Motor Response: obeys commands(6). Verbal Response: sp4 oriented(5). Total: 15. MDM: 10/20 16:45 Medical Screening Exam initiated sw 16:58 Differential diagnosis: COPD exacerbation, pneumonia, viral syndrome, reactive airway sw6 disease. Data reviewed: vital signs, nurses notes, EKG. 19:56 Transition of care: After a detail discussion of the patient's case, care is sw6 transferred to Ihsan Espinosa MD. ED course: Laboratory studies on the patient unremarkable. Her chest x-ray shows no acute cardiopulmonary issues. She is signed out pending reevaluation after she is provided with albuterol and Atrovent treatments here in the ER as well as Solu-Medrol. Final disposition pending.. 23:28 ED course: HISTORY: Cough COMPARISON: 2023 FINDINGS: The lungs appear clear of acute sp4 infiltrate. Lungs are mildly to moderately hyperaerated consistent with COPD. No significant pleural effusion noted. The heart is normal size. IMPRESSION: No acute abnormality is displayed. . ED course: COMPARISON: 06/17/2024 FINDINGS: The lack of intravenous contrast limits the sensitivity of this exam for evaluation of solid visceral organs, vascular structures, and retroperitoneum. LOWER CHEST: Emphysematous lung bases. LIVER:Normal in size and contour. No focal lesion. Cholecystectomy clips. SPLEEN: Normal size. No focal lesion. PANCREAS: No mass, ductal dilation, or eduar-pancreatic fluid. ADRENALS: Normal; no mass. KIDNEYS AND URETERS: Normal size and contour. No hydronephrosis. URINARY BLADDER: Normal contour. GASTROINTESTINAL TRACT: No evidence of bowel obstruction, significant free fluid, free air or abscess. Postsurgical changes about the stomach. Small fat-containing para midline ventral hernia. APPENDIX: Appendix not visualized, but no inflammatory changes in region of appendix. LYMPH NODES: No lymphadenopathy. MUSCULOSKELETAL: Proximal right femoral hardware. RADIOLOGY SERVICES REPORT ADDITIONAL FINDINGS: Aortic atherosclerosis. IMPRESSION: No acute or concerning abnormalities in the abdomen or pelvis, with evaluation limited by lack of IV contrast. . 10/21 15:52 Consideration of Admission/Observation Escalation of care including sp4 admission/observation considered. 10/20 16:58 Order name: CBC with Diff; Complete Time: 19:54 [facility] 10/20 19:54 Interpretation: Within normal limits. [facility] 10/20 16:58 Order name: CMP; Complete Time: 19:54 [facility] 10/20 19:54 Interpretation: Within normal limits. [facility] 10/20 16:58 Order name: Troponin High Sensitivity; Complete Time: 19:54 [facility] 10/20 19:54 Interpretation: Within normal limits. [facility] 10/20 16:58 Order name: CXR XRAY; Complete Time: 19:14 10/20 19:14 Interpretation: No acute disease. 10/20 16:58 Order name: IV Saline Lock; Complete Time: 19:34 10/20 16:58 Order name: Labs collected and sent; Complete Time: 19:34 10/20 16:58 Order name: EKG - Nurse/Tech; Complete Time: 19:17 EC/20 16:58 Rate is 59 beats/min. Rhythm is regular. NM interval is normal. QRS interval is normal. QT interval is normal. No Q waves. T waves are Normal. No ST changes noted. Administered Medications: 20:40 Drug: MethylPrednisoLONE IVP 125 mg IVP once Route: IVP; Site: left antecubital; ha1 21:00 Follow up: Response: No adverse reaction ha1 20:43 Drug: Magnesium Sulfate IVPB 2 grams IVPB once over 2 hrs Route: IVPB; Infused Over: 2 ha1 hrs; Site: left antecubital; 22:00 Follow up: Response: No adverse reaction; IV Status: Completed infusion ha1 20:43 Drug: Ketorolac IVP 15 mg IVP once Route: IVP; Site: left antecubital; ha1 21:10 Follow up: Response: No adverse reaction; Pain is unchanged, physician notified ha1 20:44 Drug: Albuterol Inhalation 7.5 mg Inhalation once Route: Inhalation; ha1 21:00 Follow up: Response: No adverse reaction; Marked relief of symptoms ha1 20:44 Drug: Ipratropium Inhalation Aerosol 0.5 mg Inhalation once Route: Inhalation; ha1 21:00 Follow up: Response: No adverse reaction; Marked relief of symptoms ha1 21:10 Drug: Ondansetron IVP 4 mg IVP once; over 2 minutes Route: IVP; Site: left forearm; kl 21:40 Follow up: Response: No adverse reaction ha1 21:19 Drug: fentaNYL (PF) IVP 50 mcg IVP once Route: IVP; Site: left forearm; kl 21:45 Follow up: Response: No adverse reaction; Pain is unchanged, physician notified; RASS: ha1 Alert and Calm (0) 21:20 Drug: HydrALAZINE PO 50 mg PO once Route: PO; kl 22:00 Follow up: Response: No adverse reaction; Blood pressure is lowered ha1 23:05 Drug: Methocarbamol PO 1500 mg PO once Route: PO; ha1 23:40 Follow up: Response: No adverse reaction; Marked relief of symptoms ha1 23:15 Drug: fentaNYL (PF) IVP 50 mcg IVP once Route: IVP; Site: left forearm; ha1 23:40 Follow up: Response: No adverse reaction; Marked relief of symptoms; Pain is decreased; ha1 RASS: Alert and Calm (0) Disposition: 10/21 15:59 Chart complete. sp4 Disposition Summary: 10/20/24 23:47 Discharge Ordered Notes: Location: Home sp4 Problem: new sp4 Symptoms: have improved sp4 Condition: Stable sp4 Diagnosis - Acute Viral Syndrome , Body Aches, Fatigue , Generalized weakness sp4 Followup: sp4 - With: Private Physician - When: 7 - 10 days - Reason: Recheck today's complaints Discharge Instructions: - Discharge Summary Sheet sp4 - Viral Illness, Adult sp4 Forms: - Patient Portal Instructions sp4 Prescriptions: - tizanidine 4 mg Oral tablet - take 2 tablet ORAL route every 8 hours PRN muscular pain; 60 tablet; Refills: sp4 0, Product Selection Permitted - promethazine 25 mg Oral Tablet - take 1 tablet ORAL route every 6 hours As needed; 20 tablet; Refills: 0, sp4 Product Selection Permitted Signatures: Dispatcher [employer] Padmini Kline, RN Jessica Smith RN RN iw Ayala, Heidy, RN RN ha1 Potepalov, Sergey, MD MD sp4 Elza Justice MD MD sw6
--- NOTE | 2024-10-20 23:47 | ER ---
Nurse's Notes [facility] [place] Name: Rhona Ladd Age: 64 yrs Sex: Female : 1960 Arrival Date: 10/20/2024 Time: 16:26 Bed DX5 Private MD: Diagnosis: Acute Viral Syndrome , Body Aches, Fatigue , Generalized weakness Presentation: 10/20 16:43 Chief complaint: Patient states: was here Thursday and diagnosed with uti, still having iw back pain and now she is having chest pain and left arm heaviness. Risk Assessment: Do you want to hurt yourself or someone else? Patient reports no desire to harm self or others. 16:43 Method Of Arrival: Ambulatory iw 16:43 Acuity: CHON 3 iw 23:50 Coronavirus screen: Client denies travel out of the [place] in the last 14 days. Ebola ha1 Screen: No symptoms or risks identified at this time. Initial Sepsis Screen: Does the patient meet any 2 criteria? No. Patient's initial sepsis screen is negative. Does the patient have a suspected source of infection? No. Patient's initial sepsis screen is negative. Onset of symptoms was October 21, 2024. 10/21 04:00 Onset of symptoms was October 20, 2024 at 19:00. ha1 Triage Assessment: 10/20 19:50 General: Appears uncomfortable, Behavior is calm, cooperative. Pain: Complains of pain ha1 in back. Historical: - Allergies: 16:44 Bactrim; iw 16:44 Morphine; iw 16:44 Soma; iw - PMHx: 16:44 Asthma; Hypertension; iw - PSHx: 16:44 Appendectomy; bowel resection; section; ARTEM IN HER FEMUR; Cholecystectomy; iw - Immunization history:: Adult Immunizations up to date. - Infectious Disease History:: Denies. - Social history:: Smoking status: Patient/guardian denies using tobacco, the patient reports quitting approximately 7 years ago. Screenin:[facility] ED Fall Risk Assessment (Adult) History of falling in the last 3 months, ha1 including since admission No falls in past 3 months (0 pts) Confusion or Disorientation No (0 pts) Intoxicated or Sedated No (0 pts) Impaired Gait No (0 pts) Mobility Assist Device Used No (0 pt) Altered Elimination No (0 pt) Score/Fall Risk Level 0 - 2 = Low Risk Oriented to surroundings, Maintained a safe environment, Educated pt \T\ family on fall prevention, incl call for assistance when getting out of bed, Hourly rounding (assess needs \T\ fall precautionary measures) done. Abuse screen: Denies threats or abuse. Denies injuries from another. Nutritional screening: No deficits noted. Tuberculosis screening: No symptoms or risk factors identified. Assessment: 19:50 General: Appears uncomfortable, Behavior is calm, appropriate for age. Pain: Complains ha1 of pain in anterior aspect of left lateral abdomen Pain radiates to back Pain currently is 8 out of 10 on a pain scale. Pain began gradually, 2-3 days ago. Neuro: Level of Consciousness is awake, alert, obeys commands, Oriented to person, place, time, situation. Cardiovascular: Capillary refill < 3 seconds Patient's skin is warm and dry. Respiratory: Airway is patent Respiratory effort is even, unlabored, Respiratory pattern is regular, symmetrical. GI: No signs and/or symptoms were reported involving the gastrointestinal system. 21:00 Reassessment: Patient and/or family updated on plan of care and expected duration. Pain ha1 level reassessed. Patient is alert, oriented x 3, equal unlabored respirations, skin warm/dry/pink. pain 6/10. Vital Signs: 16:44 BP 194 / 104; Pulse 61; Resp 18; Temp 98.4; Pulse Ox 94% on R/A; Weight 83.91 kg; iw Height 5 ft. 8 in. ; Pain 8/10; 22:00 BP 167 / 99; Pulse 62; Resp 17 S; Pulse Ox 98% on R/A; ha1 23:20 BP 171 / 87; Pulse 62; Resp 17 S; Temp 97.9(T); Pulse Ox 98% on R/A; ha1 16:44 Body Mass Index 28.13 (83.91 kg, 172.72 cm) iw 16:44 Pain Scale: Adult iw Hipolito Coma Score: 10/21 15:52 Eye Response: spontaneous(4). Motor Response: obeys commands(6). Verbal Response: sp4 oriented(5). Total: 15. ED Course: 10/20 16:30 Patient arrived in ED. al6 16:42 Arm band placed on right wrist. ha1 16:44 Triage completed. iw 16:44 Elza Justice MD is Attending Physician. sw6 17:24 CXR XRAY In Process Unspecified. EDMS 19:34 Inserted saline lock: 20 gauge in right antecubital area, using aseptic technique. af3 Blood collected. Flushed with 10 mL NS. 19:50 Patient has correct armband on for positive identification. Bed in low position. Call ha1 light in reach. Side rails up X 1. Client placed on continuous cardiac and pulse oximetry monitoring. NIBP monitoring applied. 19:50 Provided Education on: plan of care. ha1 20:22 Attending Physician role handed off by Elza Justice MD sp4 20:22 Ihsan Espinosa MD is Attending Physician. sp4 20:50 Inserted saline lock: 24 gauge in left forearm, using aseptic technique. kl 23:50 No provider procedures requiring assistance completed. ha1 23:50 IV discontinued, intact, bleeding controlled, No redness/swelling at site. Pressure ha1 dressing applied. Patient maintains SpO2 saturation greater than 95% on room air. Administered Medications: 20:40 Drug: MethylPrednisoLONE IVP 125 mg IVP once Route: IVP; Site: left antecubital; ha1 21:00 Follow up: Response: No adverse reaction ha1 20:43 Drug: Magnesium Sulfate IVPB 2 grams IVPB once over 2 hrs Route: IVPB; Infused Over: 2 ha1 hrs; Site: left antecubital; 22:00 Follow up: Response: No adverse reaction; IV Status: Completed infusion ha1 20:43 Drug: Ketorolac IVP 15 mg IVP once Route: IVP; Site: left antecubital; ha1 21:10 Follow up: Response: No adverse reaction; Pain is unchanged, physician notified ha1 20:44 Drug: Albuterol Inhalation 7.5 mg Inhalation once Route: Inhalation; ha1 21:00 Follow up: Response: No adverse reaction; Marked relief of symptoms ha1 20:44 Drug: Ipratropium Inhalation Aerosol 0.5 mg Inhalation once Route: Inhalation; ha1 21:00 Follow up: Response: No adverse reaction; Marked relief of symptoms ha1 21:10 Drug: Ondansetron IVP 4 mg IVP once; over 2 minutes Route: IVP; Site: left forearm; kl 21:40 Follow up: Response: No adverse reaction ha1 21:19 Drug: fentaNYL (PF) IVP 50 mcg IVP once Route: IVP; Site: left forearm; kl 21:45 Follow up: Response: No adverse reaction; Pain is unchanged, physician notified; RASS: ha1 Alert and Calm (0) 21:20 Drug: HydrALAZINE PO 50 mg PO once Route: PO; kl 22:00 Follow up: Response: No adverse reaction; Blood pressure is lowered ha1 23:05 Drug: Methocarbamol PO 1500 mg PO once Route: PO; ha1 23:40 Follow up: Response: No adverse reaction; Marked relief of symptoms ha1 23:15 Drug: fentaNYL (PF) IVP 50 mcg IVP once Route: IVP; Site: left forearm; ha1 23:40 Follow up: Response: No adverse reaction; Marked relief of symptoms; Pain is decreased; ha1 RASS: Alert and Calm (0) Medication: 19:50 VIS not applicable for this client. ha1 Outcome: 23:47 Discharge ordered by MD. webb 23:50 Discharged to home ambulatory, with family, ha1 23:50 Condition: stable 23:50 Discharge instructions given to patient, Instructed on discharge instructions, follow up and referral plans. medication usage, Demonstrated understanding of instructions, follow-up care, medications, Prescriptions given X 2, 10/21 00:04 Patient left the ED. ha1 Signatures: Dispatcher [employer] EDMS Padmini Haskins RN RN kl Williams, Irene, RN RN iw Ayala, Heidy, RN RN [facility] Ihsan Espinosa MD MD sp4 Williams, Sandra, MD MD [facility] Deepti Lopez Analisa Maynard [facility]
[2024-10-21 00:52] VITALS: BP 194/104; TEMP 98.4; O2SAT 94
== END 2024-10-21 00:04 | disposition home or self-care (01) ==
LOC: ER 16:26
DX: B34.9 Viral infection, unspecified (principal); R53.1 Weakness; R53.83 Other fatigue; R52 Pain, unspecified
CPT/HCPCS: 85025; 36415; 84484; 80053; 71045; 99285; J3475; J7613; J7644; J3010 ×2; J2919; J2405; 93005

== ENCOUNTER 2024-11-30 08:09 | Day surgery (SDC) | payer OTHER ==
--- NOTE | 2024-11-28 11:31 | RAD REPORT ---
EXAMINATION: TWO VIEW CHEST XR CLINICAL INDICATION: pre op for day surgery TECHNIQUE: 2 views of the chest was performed. COMPARISON: 10/20/2024 FINDINGS: The lungs are hyperexpanded suggesting COPD. The heart is moderately enlarged. No displaced fractures evident. IMPRESSION: COPD is suspected without acute finding identified.
[2024-11-28 11:48] LABS: Absolute Eosinophils 0.2 K/uL (0-0.5); Absolute Lymphocytes (CBC) 1.4 K/uL (0.7-4.9); Absolute Monocytes 0.4 K/uL (0.1-1.3); Absolute Neutrophil 3.2 K/uL (1.8-8.0); Basophils % 0.4 % (0-1.3); Eosinophils % 3.4 % (0-4.4); Hematocrit 44.5 % (36.0-45.0); Hemoglobin 15.5 g/dL (12.0-15.0); Lymphocytes % 26.9 % (15.3-44.8); MCH 33.9 pg (27.0-35.0); MCHC 34.8 g/dL (32.0-36.0); MCV 97.4 fL (80-100); MPV 9.3 fL (7.6-11.3); Monocytes % 7.2 % (3.3-12.3); Neutrophils % 62.1 % (41.7-73.7); Nucleated Red Blood Cells % 0.1 % (0-0); Platelets 151 thou/uL (152-406); RBC Red Blood Cell Count 4.57 M/uL (3.86-4.86); Red Cell Distribution Width 13.3 % (12.1-15.2)
[2024-11-28 11:57] LABS: PT Prothrombin Time 10.3 SECONDS (10-13.0); PTT, Activated Partial Thromb 29.9 SECONDS (27.2-37.4); Protime INR 0.9
--- NOTE | 2024-11-28 12:06 | EKG ---
Test Date: 2024-11-28 Test Time: 10:53:38 Spoon Maker: PREO MEASUREMENT RESULTS: Intervals: Rate: 50 ND: 160 QRSD: 102 QT: 448 QTc: 408 [place]: P: 58 ND: 160 QRS: 38 T: 73 INTERPRETIVE STATEMENTS: Sinus bradycardia Otherwise normal ECG Compared to ECG 10/20/2024 16:51:40 No significant changes Electronically Signed On 11-28-24 12:05:51 CDT by Sagar Cox
[2024-11-30 08:55] LABS: Anion Gap 5.4 mEq/L (5.0-15.0); Potassium 3.4 mEq/L (3.5-5.1)
[2024-11-30] MEDS: Ringers Lactate 1,000 ML IV ONE (08:55)
[2024-11-30] MEDS ORDERED: propofoL 200 MG/20 ML VIAL IV ONE (09:56)
[2024-11-30] MEDS ORDERED: LIDOCAINE 2% MPF 5 ML VIAL ONE (09:56)
[2024-11-30] MEDS ORDERED: ONDANSETRON 4 MG/2 ML VIAL ONE (09:56)
[2024-11-30] MEDS ORDERED: FENTANYL CITR 100 MCG/2 ML ONE (09:57)
[2024-11-30] MEDS ORDERED: MIDAZOLAM HCL 2 MG/2 ML INJ ONE (09:57)
[2024-11-30] MEDS: CEFAZOLIN SODIUM 2 GM/VIAL ONE (10:31)
[2024-11-30] MEDS ORDERED: GLYCOPYRROLATE 0.2 MG/ML SYR ONE (10:38)
[2024-11-30] MEDS ORDERED: EPHEDRINE SULF 50 MG/ML VIAL ONE (10:39)
[2024-11-30] MEDS ORDERED: dexAMETHasone 10 MG/ML VIAL ONE (10:43)
[2024-11-30] MEDS: BUPIVACAINE 0.25% PF 10 ML VIAL ONE (10:55)
[2024-11-30] MEDS: FENTANYL CITR 100 MCG/2 ML ONE (11:53)
[2024-11-30] MEDS: HYDROMORPHONE HCL 1 MG/ML INJ ONE (12:03)
--- NOTE | 2024-11-30 12:10 | P.BOP ---
Preoperative diagnosis: Left knee lateral meniscus tear, left knee osteoarthritis Postoperative diagnosis: Same, left knee medial meniscus tear Primary procedure: Left knee arthroscopic partial medial and lateral meniscectomies Technical Buyer: NONE,NONE Estimated blood loss: 3 cc Specimen: None Findings: See dictation Anesthesia: General Complications: None Implants: None Fluids & blood products: Per anesthesia record Transferred to: Recovery Room Condition: Good
--- NOTE | 2024-11-30 12:15 | P.OP ---
Preoperative diagnosis: Left knee lateral meniscus tear, left knee osteoarthritis Postoperative diagnosis: Same, left knee medial meniscus tear Primary procedure: Left knee arthroscopic partial medial and lateral meniscectomies Anesthesia: General Estimated blood loss: 3 cc Specimen: None Findings: See dictation Operative Technique: Indication For Procedure: Rhona is a 64-year-old female who presented to my clinic with signs, symptoms, and MRI findings consistent with a left knee lateral meniscus tear and underlying left knee osteoarthritis. Patient failed conservative treatment measures including corticosteroid injection. Given her pain and mechanical symptoms we elected to proceed with left knee arthroscopic partial lateral meniscectomy. I discussed with the patient risks and benefits associated with operative and nonoperative treatment including continued pain from her osteoarthritis. She expressed understanding and elected to proceed with operative treatment. Description Of Procedure: After informed consent was obtained, the patient was identified in the preoperative holding area. The left lower extremity was marked. Patient was brought to the operating room transferred to the operative table in the supine fashion and placed under general anesthesia. The left lower extremity was then prepped and draped in usual sterile fashion. A time-out was initiated. The correct patient and procedure were performed and identified. The patient did receive preoperative prophylactic antibiotics. The left lower extremity was exsanguinated using an Esmarch and the tourniquet was inflated to 300 mmHg. Standard anterior medial and anterior lateral portals were created. The arthroscope was brought in via the anterolateral portal and a diagnostic arthroscopy was performed. The arthroscope was first brought into the patellofemoral joint which was noted to have grade III chondromalacia changes of the trochlear groove and grade II changes of the undersurface of the patella. The arthroscope was then brought on the both medial and lateral gutters and there were no loose bodies found within the gutters. The arthroscope was first brought into the medial compartment with the patient was noted to have fraying of the posterior horn of the medial meniscus with a small degenerative tear. A partial medial meniscectomy is performed using meniscal biters and an arthroscopic shaver to smooth meniscal borders. There were mild grade I chondromalacia changes of the medial femoral condyle and medial tibial plateau. The arthroscope was then brought into the intercondylar notch where the patient was noted to have an intact ACL and PCL which were stable to probe. The arthroscope was and brought of the lateral compartment where the patient was noted to have a complex tear of the lateral meniscus body and posterior horn. A partial lateral meniscectomy was performed using meniscal biters and arthroscopic shaver to smooth meniscal borders. Patient had diffuse grade IV chondromalacia changes of the lateral tibial platean and grade III changes of the lateral femoral condyle. Any loose chondral flaps were debrided using arthroscopic shaver to perform a chondroplasty. Arthroscopic instruments were then removed without complication. Wounds were then irrigated thoroughly with normal saline. Portals were approximated using a 3-0 Monocryl. Sterile dressings were applied. The patient was awakened and transferred to PACU in stable condition. Postoperative Plan: The patient will be weightbearing as tolerated on the left lower extremity. She will follow-up in clinic 1 week for wound check and dressing change. We will follow the post meniscectomy protocol 2 weeks postoperatively. Complications: None Implants: None Fluids & blood products: Per anesthesia record Transferred to: Recovery Room Condition: Good
[2024-11-30 13:26] VITALS: BP 152/65; TEMP 97; O2SAT 95
== END 2024-11-30 13:00 | disposition home or self-care (01) ==
LOC: OR 08:09
PROVIDERS: ATTEND Orthopaedic Surgery Sports Medicine
PROC: 0SBD4ZZ Excision of Left Knee Joint, Percutaneous Endoscopic Approach (ICD-10-PCS; 2024-11-30)
PROC: 0SBD4ZZ Excision of Left Knee Joint, Percutaneous Endoscopic Approach (ICD-10-PCS; principal; 2024-11-30 10:00)
DX: S83.282A Other tear of lateral meniscus, current injury, left knee, initial encounter (principal); M17.12 Unilateral primary osteoarthritis, left knee
CPT/HCPCS: 36415; 71046; 80048; 85025; 85610; 85730; 93005; J1100; J1171; J2003; J2250; J2405; J2704; J3010; J7120

== ENCOUNTER 2025-03-02 17:38 | Inpatient (IN) | payer OTHER ==
[2025-03-02] MEDS ORDERED: NA CHLORIDE 0.9% 1,000 ML ONE (17:52)
[2025-03-02] MEDS ORDERED: MORPHINE 4 MG/ML SYR ONE (17:52)
[2025-03-02] MEDS ORDERED: ONDANSETRON 4 MG/2 ML VIAL ONE (17:52)
[2025-03-02] MEDS ORDERED: HYDROMORPHONE HCL 1 MG/ML INJ ONE (19:00)
[2025-03-02 19:11] LABS: Absolute Lymphocytes (CBC) 1.5 K/uL (0.7-4.9); Hematocrit 46.9 % (36.0-45.0); Hemoglobin 15.8 g/dL (12.0-15.0); MCH 33.2 pg (27.0-35.0); MCHC 33.7 g/dL (32.0-36.0); MCV 98.5 fL (80-100); MPV 9.1 fL (7.6-11.3); Nucleated RBC Absolute Count 0.0 (0-0); Nucleated Red Blood Cells % 0.1 % (0-0); RBC Red Blood Cell Count 4.76 M/uL (3.86-4.86); White Blood Count 6.60 thou/uL (4.3-10.9)
[2025-03-02 19:33] LABS: ALT/SGPT 26 U/L (13-56); AST/SGOT 14 U/L (15-37); Albumin 3.7 g/dL (3.4-5.0); Albumin/Globulin Ratio 1.1 (1.1-1.8); Alkaline Phosphatase 106 U/L (45-117); Anion Gap 6.0 mEq/L (5.0-15.0); BUN Blood Urea Nitrogen 21 mg/dL (7-18); Globulin 3.3 g/dL (2.3-3.5); Glucose Level 117 mg/dL (74-106); Lipase 23 U/L (13-75); Magnesium 2.0 mg/dL (1.6-2.4); Potassium 4.0 mEq/L (3.5-5.1); Troponin High Sensitivity 6.7 pg/mL (<58.9)
[2025-03-02 19:35] LABS: PT Prothrombin Time 12.0 SECONDS (10-13.0); Protime INR 1.06
[2025-03-02 19:50] LABS: Bilirubin Indirect, Calculated 0.2 mg/dL (0.2-0.8)
[2025-03-02] MEDS ORDERED: FENTANYL CITR 100 MCG/2 ML ONE (20:50)
--- NOTE | 2025-03-02 20:57 | RAD REPORT ---
EXAMINATION: CT ABDOMEN AND PELVIS WITH CONTRAST CLINICAL INDICATION: ABD PAIN TECHNIQUE: CT abdomen and pelvis was performed, after the administration of IV contrast, as per [facility] protocol. Axial, sagittal and coronal reconstructions were obtained. One or more of the following dose reduction techniques were used: Automated exposure control, adjustment of the mA and k V according to patient size, and iterative reconstruction. Unless otherwise specified, incidental findings do not require dedicated imaging follow-up. COMPARISON: 06/17/2024 FINDINGS: LOWER CHEST: Bullous emphysematous changes in both lung bases. LIVER: Normal in size and contour. No focal lesion. Cholecystectomy clips. SPLEEN: Normal size. No focal lesion. PANCREAS: No mass, ductal dilation, or eduar-pancreatic fluid. ADRENALS: Normal; no mass. KIDNEYS: Normal size and contour. No hydronephrosis. GASTROINTESTINAL TRACT: No evidence of free air, significant intra-abdominal free fluid, bowel obstru ction or abscess. APPENDIX: Normal appendix. LYMPH NODES: No lymphadenopathy. MUSCULOSKELETAL: Mild multilevel spinal degenerative changes. Hardware present proximal right femur. ADDITIONAL FINDINGS: Large 5.5 cm duodenal diverticulum along the C-loop. Small ventral hernia presen t containing a portion anterior wall of the transverse colon without obstruction. Small fat-containing ventral hernias. IMPRESSION: No acute abnormalities seen in the abdomen or pelvis.
--- NOTE | 2025-03-02 21:34 | EDPHYS ---
Physician Documentation [facility] Name: Rhona Ladd Age: 64 yrs Sex: Female : 1960 Arrival Date: 03/02/2025 Time: 17:38 Bed 20 Private MD: ED Physician Oscar Mendez HPI: 03/02 18:02 This 64 yrs old Female presents to ER via Unassigned with unknown complaint. sp3 18:02 64-year-old female with history of cholecystectomy, diverticulitis, multiple ventral sp3 hernias, bowel obstruction requiring surgery, now presents to the ED for recurrent abdominal pain periumbilical extending to the right upper quadrant. She denies any vomiting but does endorse nausea. She also denies diarrhea, fever, headache, neck pain, chest pain, shortness of breath, flank pain, symptoms, CONTROLS ENGINEER symptoms, or any other signs or symptoms on ROS at this time.. Historical: - Allergies: 18:19 Bactrim; cf3 18:19 Morphine; cf3 18:19 Soma; cf3 - PMHx: 18:19 Asthma; Hypertension; cf3 - PSHx: 18:19 Appendectomy; bowel resection; section; Cholecystectomy; ARTEM IN HER FEMUR; cf3 - Immunization history:: Adult Immunizations up to date. - Infectious Disease History:: Denies. - Social history:: Smoking status: Patient denies any tobacco usage or history of. ROS: 18:09 Constitutional: Negative for fever, chills, and weight loss, Eyes: Negative for injury, sp3 pain, redness, and discharge, ENT: Negative for injury, pain, and discharge, Neck: Negative for injury, pain, and swelling, Cardiovascular: Negative for chest pain, palpitations, and edema, Respiratory: Negative for shortness of breath, cough, wheezing, and pleuritic chest pain, Back: Negative for injury and pain, MS/Extremity: Negative for injury and deformity, Skin: Negative for injury, rash, and discoloration, Neuro: Negative for headache, weakness, numbness, tingling, and seizure, Psych: Negative for depression, anxiety, suicide ideation, homicidal ideation, and hallucinations, Allergy/Immunology: Negative for hives, rash, and allergies, Endocrine: Negative for neck swelling, polydipsia, polyuria, polyphagia, and marked weight changes, Hematologic/Lymphatic: Negative for swollen nodes, abnormal bleeding, and unusual bruising, 18:09 All other systems are negative, Exam: 18:09 Constitutional: This is a well developed, well nourished patient who is awake, alert, sp3 and in no acute distress. Head/Face: Normocephalic, atraumatic. Eyes: Pupils equal round and reactive to light, extra-ocular motions intact. Lids and lashes normal. Conjunctiva and sclera are non-icteric and not injected. Cornea within normal limits. Periorbital areas with no swelling, redness, or edema. Neck: Trachea midline, no thyromegaly or masses palpated, and no cervical lymphadenopathy. Supple, full range of motion without nuchal rigidity, or vertebral point tenderness. No Meningismus. Chest/axilla: Normal chest wall appearance and motion. Nontender with no deformity. No lesions are appreciated. Cardiovascular: Regular rate and rhythm with a normal S1 and S2. No gallops, murmurs, or rubs. Normal PMI, no JVD. No pulse deficits. Respiratory: Lungs have equal breath sounds bilaterally, clear to auscultation and percussion. No rales, rhonchi or wheezes noted. No increased work of breathing, no retractions or nasal flaring. Back: No spinal tenderness. No costovertebral tenderness. Full range of motion. Skin: Warm, dry with normal turgor. Normal color with no rashes, no lesions, and no evidence of cellulitis. MS/ Extremity: Pulses equal, no cyanosis. Neurovascular intact. Full, normal range of motion. Neuro: Awake and alert, GCS 15, oriented to person, place, time, and situation. Cranial nerves II-XII grossly intact. Motor strength 5/5 in all extremities. Sensory grossly intact. Cerebellar exam normal. Normal gait. Psych: Awake, alert, with orientation to person, place and time. Behavior, mood, and affect are within normal limits. 18:09 Abdomen/GI: Periumbilical abdominal pain noted extension into the right upper quadrant. No peritoneal signs, rebound or guarding noted., 18:13 ECG was reviewed by the Attending Physician. EKG demonstrates normal sinus rhythm at 75 sp3 bpm with normal intervals, normal QRS, normal axis and nonspecific diffuse ST/T changes without evidence of acute ischemia. Vital Signs: 17:40 BP 142 / 78; Pulse 74; Resp 16; Temp 98(O); Pulse Ox 99% on R/A; Weight 93.44 kg; cf3 Height 5 ft. 8 in. ; 19:57 BP 122 / 88; Pulse 68; Resp 18; Pulse Ox 97% on 3 lpm NC; Weight 94.35 kg; Height 5 ft. tb4 8 in. ; Pain 10/10; 22:22 BP 140 / 91; Pulse 79; Resp 20; Pulse Ox 97% on 3 lpm NC; Pain 7/10; tb4 23:29 BP 137 / 87; Pulse 73; Resp 20; Pulse Ox 97% 3 lpm ; Pain 6/10; tb4 03/03 00:11 BP 129 / 76; Pulse 81; Resp 18; Pulse Ox 100% on 3 lpm NC; Pain 5/10; tb4 03/02 19:57 Body Mass Index 31.63 (94.35 kg, 172.72 cm) tb4 19:57 Pain Scale: Adult tb4 22:22 Pain Scale: Adult tb4 23:29 Pain Scale: Adult tb4 03/03 00:11 Pain Scale: Adult tb4 03/02 19:57 Patient oxygen on RA is 88-91% [facility] MDM: 17:43 Medical Screening Exam initiated sp3 18:10 Data reviewed: vital signs, nurses notes, old medical records, lab test result(s), sp3 radiologic studies. ED course: 64-year-old female with extensive surgical and past medical history now presents with recurrent abdominal pain in the setting of known multiple hernias. Differential diagnosis includes ventral hernia, bowel obstruction, incarcerated bowel, biliary pathology, pancreatitis, gastritis, colitis, among others. I am not highly suspicious of or CONTROLS ENGINEER pathology and also not highly suspicious of AAA or other vascular pathology including mesenteric ischemia. Will obtain CT scan of the abdomen pelvis with IV contrast, general labs and pain and nausea control. Disposition pending workup and patient course. Her laceration was Dr. Walker.. 21:31 Differential diagnosis: bowel obstruction, diverticulitis, gastritis, gastroesophageal rn reflux disease, non-specific abd pain, pancreatitis, Peptic Ulcer Disease, Perf. Duodenal Ulcer, Perf. Gastric Ulcer, Pyelonephritis, Ureterolithiasis. Counseling: I had a detailed discussion with the patient and/or guardian regarding the historical points, exam findings, and any diagnostic results supporting the discharge/admit diagnosis, lab results, radiology results, the need for further work-up and treatment in the hospital. Response to treatment: the patient's symptoms have mildly improved after treatment, and as a result, I will admit patient. ED course: Patient with persistent abdominal pain. No acute findings on workup. Will admit to hospitalist service for further workup. No acute surgical intervention required at this time.. 03/02 17:44 Order name: Basic Metabolic Panel; Complete Time: 19:53 sp3 03/02 17:44 Order name: CBC with Diff; Complete Time: 19:53 sp3 03/02 17:44 Order name: LFT's; Complete Time: 19:53 sp3 03/02 17:44 Order name: Magnesium; Complete Time: 19:53 sp3 03/02 17:44 Order name: PT-INR; Complete Time: 19:53 sp3 03/02 17:44 Order name: Troponin HS; Complete Time: 19:53 sp3 03/02 17:44 Order name: Lipase; Complete Time: 19:53 sp3 03/02 22:57 Order name: CBC with Automated Diff EDGA 03/02 22:57 Order name: CBC with Automated Diff EDMS 03/02 22:57 Order name: CBC with Automated Diff EDMS 03/02 22:57 Order name: CBC with Automated Diff EDMS 03/02 22:57 Order name: Comprehensive Metabolic Panel [facility] 03/02 22:57 Order name: Comprehensive Metabolic Panel [facility] 03/02 22:57 Order name: Comprehensive Metabolic Panel [facility] 03/02 22:57 Order name: Comprehensive Metabolic Panel [facility] 03/02 22:57 Order name: Magnesium [facility] 03/02 22:57 Order name: Magnesium MS 03/02 22:57 Order name: Magnesium [facility] 03/02 22:57 Order name: Magnesium [facility] 03/02 17:44 Order name: CT Abd/Pelvis - PO and IV Contrast; Complete Time: 21:00 sp3 03/02 22:57 Order name: CONS Physician Consult [facility] 03/02 17:44 Order name: Cardiac monitoring; Complete Time: 18:10 sp3 03/02 17:44 Order name: EKG - Nurse/Tech; Complete Time: 18:10 sp3 03/02 17:44 Order name: IV Saline Lock; Complete Time: 18:10 sp3 03/02 17:44 Order name: Labs collected and sent; Complete Time: 18:10 sp3 03/02 17:44 Order name: O2 Per Protocol; Complete Time: 18:10 sp3 03/02 17:44 Order name: O2 Sat Monitoring; Complete Time: 18:10 sp3 Administered Medications: 18:10 Drug: NS 0.9% IV 1000 ml IV at 1000 ml once; to be given as a bolus over 60 minutes cf3 Route: IV; Rate: 1000 ml; Site: left antecubital; 18:58 Follow up: Response: No adverse reaction; No change in condition; IV Intake: 1000ml cf3 18:10 Drug: morphine IVP or IV 4 mg IVP once over 4 mins Route: IVP; Infused Over: 4 mins; cf3 Site: left antecubital; 18:58 Follow up: Response: No adverse reaction; Pain is unchanged, physician notified cf3 18:10 Drug: Ondansetron IVP 4 mg IVP once; over 2 minutes Route: IVP; Site: left antecubital; cf3 18:59 Follow up: Response: No adverse reaction; Marked relief of symptoms cf3 19:07 Drug: HYDROmorphone IVP 1 mg IVP once Route: IVP; Site: left antecubital; cf3 20:20 Follow up: Response: No adverse reaction; Pain is unchanged, physician notified; RASS: tb4 Alert and Calm (0) 21:10 Drug: fentaNYL (PF) IVP 50 mcg IVP once Route: IVP; Site: left forearm; tb4 22:22 Follow up: Response: No adverse reaction; Pain is decreased; RASS: Alert and Calm (0) tb4 Disposition Summary: 03/02/25 21:33 Hospitalization Ordered Notes: Hospitalization Status: Observation rn Provider: Ritesh Zuñiga rn Location: Telemetry/MedSurg (observation) rn Condition: Stable rn Problem: new rn Symptoms: have improved rn Bed/Room Type: Standard rn Room Assignment: 231(03/02/25 22:57) vk Diagnosis - Abdominal pain, unspecified rn Forms: - Medication Reconciliation Form rn - SBAR form rn - Leadership Thank You Letter rn Signatures: Dispatcher [employer] Oscar Penn MD MD rn Patel, Setul, MD MD sp3 Flor Wilson Terri, RN RN tb4 Hugh Lewis, RN RN cf3 Corrections: (The following items were deleted from the chart) 17:45 17:45 BASIC METABOLIC PANEL+C.LAB.BRZ ordered. EDMS EDMS 17:45 17:45 CBC+H.LAB.BRZ ordered. EDMS EDMS 17:45 17:45 HEPATIC FUNCTION+C.LAB.BRZ ordered. EDMS EDMS 17:45 17:45 MAGNESIUM+C.LAB.BRZ ordered. EDMS EDMS 17:45 17:45 PROTIME (+INR)+COAG.LAB.BRZ ordered. EDMS EDMS 17:45 17:45 Troponin High Sensitivity+C.LAB.BRZ ordered. EDMS EDMS 17:45 17:45 LIPASE+C.LAB.BRZ ordered. EDMS EDMS 17:45 17:45 Abdomen Pelvis W Con+CT.RAD.BRZ ordered. EDMS EDMS 22:57 21:33 luis carlos hawley
--- NOTE | 2025-03-02 21:34 | ER ---
Nurse's Notes [facility] Name: Rhona Ladd Age: 64 yrs Sex: Female : 1960 Arrival Date: 03/02/2025 Time: 17:38 Bed 20 Private MD: Diagnosis: Abdominal pain, unspecified Presentation: 03/02 17:40 Initial Sepsis Screen: Does the patient meet any 2 criteria? No. Patient's initial cf3 sepsis screen is negative. Does the patient have a suspected source of infection? No. Patient's initial sepsis screen is negative. Risk Assessment: Do you want to hurt yourself or someone else? Patient reports no desire to harm self or others. Onset of symptoms was March 02, 2025. Care prior to arrival: IV initiated. 20 GA, in the left antecubital area. 17:40 Acuity: CHON 3 cf3 18:14 Chief complaint: Patient states: Abdominal pain in RUQ, severe, sudden onset, cf3 associated nausea and vomiting EMS states: Abdominal pain in RUQ, severe, sudden onset, associated nausea and vomiting. Coronavirus screen: Vaccine status: Patient reports receiving the 2nd dose of the covid vaccine. Date March 02, 2025 At this time, the client does not indicate any symptoms associated with coronavirus-19. Ebola Screen: No symptoms or risks identified at this time. 18:14 Method Of Arrival: EMS: [facility] cf3 Triage Assessment: 17:40 General: Appears distressed, uncomfortable, Behavior is anxious. Pain: Complains of cf3 pain in right upper quadrant Pain currently is 9 out of 10 on a pain scale. Quality of pain is described as sharp, Pain began suddenly, 30 min ago. Is continuous. Neuro: Ashley Agitation-Sedation Scale (RASS): +1 Restless Level of Consciousness is awake, alert, obeys commands, Oriented to person, place, time, situation, Merchandising Execution Manager are equal bilaterally Moves all extremities. GI: Abdomen is round non-distended, obese, Pt is actively vomiting clear fluid, Bowel sounds hyperactive in right upper quadrant, left upper quadrant, right lower quadrant and left lower quadrant Abdomen is tender to palpation in right upper quadrant Guarding noted Reports upper abdominal pain, nausea, vomiting. Historical: - Allergies: 18:19 Bactrim; cf3 18:19 Morphine; cf3 18:19 Soma; cf3 - PMHx: 18:19 Asthma; Hypertension; cf3 - PSHx: 18:19 Appendectomy; bowel resection; section; Cholecystectomy; ARTEM IN HER FEMUR; cf3 - Immunization history:: Adult Immunizations up to date. - Infectious Disease History:: Denies. - Social history:: Smoking status: Patient denies any tobacco usage or history of. Screenin:21 [facility] ED Fall Risk Assessment (Adult) History of falling in the last 3 months, cf3 including since admission No falls in past 3 months (0 pts) Confusion or Disorientation No (0 pts) Intoxicated or Sedated No (0 pts) Impaired Gait No (0 pts) Mobility Assist Device Used No (0 pt) Altered Elimination No (0 pt) Score/Fall Risk Level 0 - 2 = Low Risk. [facility] ED Fall Risk Assessment (Adult) Score/Fall Risk Level 0 - 2 = Low Risk Oriented to surroundings, Maintained a safe environment. Abuse screen: Denies threats or abuse. Denies injuries from another. Nutritional screening: No deficits noted. Tuberculosis screening: No symptoms or risk factors identified. 19:57 [facility] ED Fall Risk Assessment (Adult) History of falling in the last 3 months, tb4 including since admission No falls in past 3 months (0 pts) Confusion or Disorientation No (0 pts) Intoxicated or Sedated No (0 pts) Impaired Gait No (0 pts) Mobility Assist Device Used No (0 pt) Altered Elimination No (0 pt) Score/Fall Risk Level 0 - 2 = Low Risk Oriented to surroundings, Maintained a safe environment. Abuse screen: Denies threats or abuse. Nutritional screening: No deficits noted. Tuberculosis screening: No symptoms or risk factors identified. Assessment: 18:21 Reassessment: See triage assessment. cf3 19:57 Reassessment: Patient in bed with at bedside. General: Appears distressed, tb4 uncomfortable, Behavior is calm, cooperative. Pain: Complains of pain in umbilical area and right upper quadrant Pain does not radiate. Pain currently is 10 out of 10 on a pain scale. Quality of pain is described as sharp, shooting, stabbing, Pain began suddenly, 4 hours ago. Is continuous, Alleviated by nothing. Aggravated by. Neuro: No deficits noted. Level of Consciousness is awake, alert, obeys commands, Oriented to person, place, time, situation, Merchandising Execution Manager are equal bilaterally Moves all extremities. Full function Gait is steady, Speech is normal, Facial symmetry appears normal. Respiratory: No deficits noted. Airway is patent Trachea midline Respiratory effort is even, unlabored, Respiratory pattern is regular, symmetrical. GI: Abdomen is round Last BM was March 02, 2025. GI: Bowel sounds present X 4 quads. Guarding noted in umbilical area and right upper quadrant Reports upper abdominal pain, nausea, Pain is 10 out of 10 on a pain scale. vomiting. : No deficits noted. Vital Signs: 17:40 BP 142 / 78; Pulse 74; Resp 16; Temp 98(O); Pulse Ox 99% on R/A; Weight 93.44 kg; cf3 Height 5 ft. 8 in. ; 19:57 BP 122 / 88; Pulse 68; Resp 18; Pulse Ox 97% on 3 lpm NC; Weight 94.35 kg; Height 5 ft. tb4 8 in. ; Pain 10/10; 22:22 BP 140 / 91; Pulse 79; Resp 20; Pulse Ox 97% on 3 lpm NC; Pain 7/10; tb4 23:29 BP 137 / 87; Pulse 73; Resp 20; Pulse Ox 97% 3 lpm ; Pain 6/10; tb4 03/03 00:11 BP 129 / 76; Pulse 81; Resp 18; Pulse Ox 100% on 3 lpm NC; Pain 5/10; tb4 03/02 19:57 Body Mass Index 31.63 (94.35 kg, 172.72 cm) tb4 19:57 Pain Scale: Adult tb4 22:22 Pain Scale: Adult tb4 23:29 Pain Scale: Adult tb4 03/03 00:11 Pain Scale: Adult tb4 03/02 19:57 Patient oxygen on RA is 88-91% tb4 ED Course: 17:40 Patient arrived in ED. mb4 17:40 Patient has correct armband on for positive identification. Bed in low position. Call cf3 light in reach. Side rails up X2. 17:40 No provider procedures requiring assistance completed. Maintain EMS IV. Dressing cf3 intact. Good blood return noted. Site clean \T\ dry. Gauge \T\ site: 20G L AC. Flushed with 10 mL NS. 17:43 Raymond Villa MD is Attending Physician. sp3 17:45 Hugh Lewis RN is Primary Nurse. cf3 18:19 Triage completed. cf3 18:21 Arm band placed on right wrist. Patient placed in an exam room. EKG done per protocol. cf3 Performed by ED Staff. Labs ordered per protocol. Drawn by ED staff. 19:57 Client placed on continuous cardiac and pulse oximetry monitoring. NIBP monitoring tb4 applied. campus monitor on. Door closed. Lights dimmed. 19:57 Initial lab(s) drawn, by ED staff, sent to lab. tb4 20:01 Attending Physician role handed off by Raymond Villa MD rn 20:01 Oscar Mendez MD is Attending Physician. rn 20:21 EKG done, by ED staff. tb4 20:41 CT Abd/Pelvis - PO and IV Contrast In Process Unspecified. EDMS 21:32 Ritesh Zuñiga, RN is Hospitalizing Provider. rn Administered Medications: 18:10 Drug: NS 0.9% IV 1000 ml IV at 1000 ml once; to be given as a bolus over 60 minutes cf3 Route: IV; Rate: 1000 ml; Site: left antecubital; 18:58 Follow up: Response: No adverse reaction; No change in condition; IV Intake: 1000ml cf3 18:10 Drug: morphine IVP or IV 4 mg IVP once over 4 mins Route: IVP; Infused Over: 4 mins; cf3 Site: left antecubital; 18:58 Follow up: Response: No adverse reaction; Pain is unchanged, physician notified cf3 18:10 Drug: Ondansetron IVP 4 mg IVP once; over 2 minutes Route: IVP; Site: left antecubital; cf3 18:59 Follow up: Response: No adverse reaction; Marked relief of symptoms cf3 19:07 Drug: HYDROmorphone IVP 1 mg IVP once Route: IVP; Site: left antecubital; cf3 20:20 Follow up: Response: No adverse reaction; Pain is unchanged, physician notified; RASS: tb4 Alert and Calm (0) 21:10 Drug: fentaNYL (PF) IVP 50 mcg IVP once Route: IVP; Site: left forearm; tb4 22:22 Follow up: Response: No adverse reaction; Pain is decreased; RASS: Alert and Calm (0) tb4 Medication: 18:21 VIS not applicable for this client. cf3 Intake: 18:58 IV: 1000ml; Total: 1000ml. cf3 Outcome: 21:33 Decision to Hospitalize by Provider. luis carlos 03/03 00:12 Patient left the ED. tb4 Signatures: Dispatcher [employer] EDOscar Arana MD MD rn Baxter, Mackenzie 4 Raymond Villa MD MD sp3 Leanne Smart RN RN tb4 Hugh Lewis RN RN cf3
--- NOTE | 2025-03-02 23:54 | P.HP ---
Certification for Inpatient Patient admitted to: Observation With expected LOS: <2 Midnights Patient will require the following post-hospital care: None Practitioner: I am a practitioner with admitting privileges, knowledge of patient current condition, hospital course, and medical plan of care. Services: Services provided to patient in accordance with Admission requirements found in Title 42 Section 412.3 of the Code of Federal Regulations Patient History Date of Service: 03/02/25 Reason for admission: Abdominal pain, ventral hernia. History of Present Illness: Patient is a 64-year-old female with past medical history of essential hypertension, asthma, COPD, home oxygen dependence 2 L as needed, factor V blood disorder, who reports to the ER today complaining of diffused abdominal pain associated with nausea but no vomiting. Patient states she went to work today around 3 PM in good health, states around 3:30 pm while she was sitting, she b ecame very diaphoretic with associated diffused abdominal pain with no chest pain or shortness of breath. Patient states she was more concerned because she has history of ruptured intestine about a year ago. Upon arrival to ER, patient had CT abdomen and pelvis with contrast, additional findings: Large 5.5 cm duodenal diverticulum along the C-loop. Small ventral hernia present containing a portion of anterior wall of the transverse colon without obstruction. Small fat-containing ventral hernia. Impression-no acute abnormality seen in the abdomen or pelvis. Allergies carisoprodol [From Soma] Allergy (Unknown, Verified 11/28/24 10:39) Itching morphine Allergy (Unknown, Verified 11/28/24 10:39) Itching sulfamethoxazole [From Bactrim] Allergy (Unknown, Verified 11/28/24 10:39) Itching trimethoprim [From Bactrim] Allergy (Unknown, Verified 11/28/24 10:39) Itching codeine Allergy (Verified 11/28/24 10:39) Itching Sulfa (Sulfonamide Antibiotics) Allergy (Verified 11/28/24 10:39) Itching Home Medications: Citalopram [Celexa*] 10 mg PO BEDTIME 11/28/22 Losartan Potassium [Cozaar] 100 mg PO DAILY 11/28/22 Albuterol Sulfate [Albuterol Sulfate Hfa] 2 puff IH Q6H PRN #1 inhaler 11/30/22 Metoprolol Succinate [Toprol Xl*] 50 mg PO DAILY 03/28/24 Omeprazole [Prilosec] 40 mg PO DAILY 03/28/24 Amlodipine Besylate 10 mg PO DAILY 11/28/24 Butalbital/Acetaminophen [Butalbital-Acetaminophn 50-325] 50 - 325 mg PO PRN PRN 11/28/24 Evolocumab [Repatha Syringe] 140 mg SQ SEECOM 11/28/24 Flecainide Acetate 50 mg PO BID 11/28/24 traMADol HCL [Ultram*] 50 mg PO Q6H PRN tab 01/05/25 Budesonide/Glycopyr/Formoterol [Breztri Aerosphere Inhaler] 2 puff IH DAILY 03/03/25 - Past Medical/Surgical History Diabetic: No -: Asthma -: COPD -: HTN -: Factor V Blood disorder -: Chronic bronchiectasis -: Appendectomy 1971 -: 1977, 1978 -: Partial hysterectomy 1981 -: Ovary removal 1995 -: Cholecystetomy 2015 -: Hip fracture repair with pin placement 2016 Psychosocial/ Personal History: Lives at home with family - Family History Mother -: Heart disease, Hypertension, Diabetes Brother -: Hypertension Father -: Heart disease, Hypertension, Diabetes - Social History Alcohol use: No CD- Drugs: No Caffeine use: No Place of Residence: Home Review of Systems 10-point ROS is otherwise unremarkable Gastrointestinal: Nausea, Abdominal Pain Physical Examination - Physical Exam General: Alert, Oriented x3 HEENT: Atraumatic, Normocephalic, PERRLA, Sclerae nonicteric Neck: Supple, 2+ carotid pulse no bruit, No LAD, Without JVD or thyroid abnormality Respiratory: Clear to auscultation bilaterally, Normal air movement Cardiovascular: No edema, Normal pulses, Regular rate/rhythm, Normal S1 S2, No gallops, No rubs, No murmurs Capillary refill: <2 Seconds Gastrointestinal: Normal bowel sounds, No ascites, No rebound, No guarding, Tenderness Musculoskeletal: No clubbing, No swelling, No contractures, No erythema, No tenderness Integumentary: No rashes, No breakdown, No significant lesion, No tenderness/swelling, No erythema, No warmth, No cyanosis Neurological: Normal gait, Normal strength at 5/5 x4 extr, Normal tone, Sensation intact, Cranial nerves 3-12 intact, Normal reflexes 2+, Normal affect Lymphatics: No axilla or inguinal lymphadenopathy - Studies Laboratory Data (last 24 hrs) 03/02/25 03/02/25 03/02/25 18:00 18:00 18:00 WBC 6.60 Hgb 15.8 H Hct 46.9 H Plt Count 193 PT 12.0 INR 1.06 Sodium 142 Potassium 4.0 BUN 21 H Creatinine 1.00 Glucose 117 H Magnesium 2.0 Total Bilirubin 0.4 AST 14 L ALT 26 Alkaline Phosphatase 106 Lipase 23 Female Exam - Breasts Breasts: Normal configuration Assessment and Plan - Plan Patient is 64-year-old female admitted to observation with diagnosis abdominal pain, and ventral hernia. Patient CT abdomen and pelvis impression-no acute abnormalities seen in the abdomen or pelvis. (1)Abdominal pain/nausea, ventral hernia. -Clear liquid at this time. To advance as tolerated. -D5 LR at 75 mL/ hr x 2 L. -Zofran 4 mg IV as needed every 4 hours. -Fentanyl 25 mcg IV as needed every 4 hours. States fentanyl helps more for abdominal pain than morphine. -Prophylactic antibiotics metronidazole 500 mg IV x 1. -Consult surgery Dr. Waggoner. (2)Chronic COPD/asthma. - Albuterol 2.5 mg as needed every 6 hours. (3)Chronic essential hypertension. -Continue amlodipine 10 mg p.o. daily. -Continue metoprolol 50 mg p.o. daily. (4)Chronic GERD Continue Meprazole 40 mg p.o. daily. (5)Explained the entire treatment plan to the patient, solicit questions answered and voiced understanding. Discharge Plan: Home - Advance Directives Does patient have a Living Will: No Does patient have a Durable POA for Healthcare: No - Code Status/Comfort Care Code Status Assessed: No Code Status: Full Code Critical Care: No Time Spent Managing Pts Care (In Minutes): 55
[2025-03-03] MEDS: METRONIDAZOLE 500mg IVPB 500 MG/100 ML BAG IV ONE (00:32)
[2025-03-03] MEDS: D5LR 1,000 ML IV SCH (00:33)
[2025-03-03] MEDS: ONDANSETRON 4 MG/2 ML VIAL IV PRN (00:33)
[2025-03-03] MEDS: FENTANYL CITR 100 MCG/2 ML IV PRN (00:34)
[2025-03-03 01:12] VITALS: BMI 30.7
[2025-03-03] MEDS: METOPROLOL XL 50 MG TAB PO SCH (05:45)
[2025-03-03] MEDS: PANTOPRAZOLE 40MG TABLET PO SCH (05:46)
[2025-03-03 06:15] LABS: Absolute Lymphocytes (CBC) 1.5 K/uL (0.7-4.9); Hematocrit 40.0 % (36.0-45.0); Hemoglobin 13.7 g/dL (12.0-15.0); MCH 33.5 pg (27.0-35.0); MCHC 34.2 g/dL (32.0-36.0); MCV 98.1 fL (80-100); MPV 7.6 fL (7.6-11.3); Nucleated RBC Absolute Count 0.0 (0-0); Nucleated Red Blood Cells % 0.0 % (0-0); RBC Red Blood Cell Count 4.07 M/uL (3.86-4.86); White Blood Count 3.90 thou/uL (4.3-10.9)
[2025-03-03 06:36] LABS: ALT/SGPT 22.0 U/L (13-56); AST/SGOT 13.0 U/L (15-37); Albumin 2.9 g/dL (3.4-5.0); Albumin/Globulin Ratio 1.1 (1.1-1.8); Alkaline Phosphatase 87.0 U/L (45-117); Anion Gap 5.4 mEq/L (5.0-15.0); BUN Blood Urea Nitrogen 17.0 mg/dL (7-18); Globulin 2.6 g/dL (2.3-3.5); Glucose Level 104.0 mg/dL (74-106); Magnesium 1.9 mg/dL (1.6-2.4); Potassium 4.4 mEq/L (3.5-5.1)
--- NOTE | 2025-03-03 08:12 | P.PN ---
Date of Service: 03/03/25 Subjective: reports abdominal pain she had yesterday was worse than labor pains felt more bloated yesterday pain is more tolerable today vitals stable Physical Exam: GEN: Alert, oriented, NAD CV: Regular rate and rhythm, no edema Pulm: Nonlabored respirations on 2L NC, clear bilaterally ABD: soft, tenderness, nondistended Neuro: Normal speech, normal affect Problem List: Intractable Abdominal Pain / Nausea Chronic COPD (on 2L Home O2) Hypertension Hx of Factor V Leiden Hx of a-fib Hx of perforated small bowel Hx of basal cell carcinoma on admission, presents with sudden onset abdominal pain associated with nausea. Denies fever, chills, diarrhea, chest pain, SOB. CT abd/pelvis (03/02): No acute findings. Large 5.5 cm duodenal diverticulum. Multiple small ventral hernias. Bullous emphysematous changes Dr. Waggoner, general surgeon consulted to eval given IV flagyl overnight; continue IV zosyn (03/03-) IV fluids, pain control oral PPI 40 mg daily confirm home meds, restart as appropriate NPO for possible hernia repair VTE: Lovenox Code: Full Dispo: Home Pending nausea and abdominal pain improves, possible surgery Time Spent Managing Pts Care (In Minutes): 55
[2025-03-03] MEDS: PNEUMOCOCCAL VACCINE 0.5 ML IMVAC ONE (08:32)
[2025-03-03] MEDS: ENOXAPARIN 40 MG/0.4 ML SQ SCH (08:34)
[2025-03-03] MEDS: AMLODIPINE 10 MG TAB PO SCH (08:34)
[2025-03-03] MEDS ORDERED: ROCURONIUM 50 MG/5 ML VIAL IV ONE ×2 (10:47→12:11)
[2025-03-03] MEDS ORDERED: LIDOCAINE 2% MPF 5 ML VIAL ONE (10:47)
[2025-03-03] MEDS ORDERED: FENTANYL CITR 100 MCG/2 ML ONE ×3 (10:47→13:08)
[2025-03-03] MEDS: SUGAMMADEX SODIUM 200 MG/2 ML VIAL IV ONE (10:57)
[2025-03-03] MEDS: Ringers Lactate 1,000 ML IV ONE ×2 (11:00→15:17)
[2025-03-03] MEDS: ALBUTEROL 2.5 MG/3 ML NEB SOL ONE (11:04)
[2025-03-03] MEDS: SUCCINYLCHOLINE 20 MG/ML (10 ML) IV ONE (11:24)
[2025-03-03] MEDS: PIPER TAZO 3.375 GM in NA CHLORIDE 0.9% 100 ML IV ONE (11:35)
--- NOTE | 2025-03-03 11:48 | PREOPCON ---
Date of Consultation: 03/03/2025 Reason: Abdominal pain. History Of Present Illness: The patient is a 64-year-old female who presents with multiple medical p roblems who had acute onset of diffuse abdominal pain associated with nausea, but no vomiting. It weiss s started yesterday evening. She became diaphoretic. No chest pain. No shortness of breath. No so re throat, runny nose, cough, headaches, or dizziness. No fever. No chills. No diarrhea or constip ation. She did have a bowel movement yesterday. She is passing gas. She had a recent history of a perforated intestine and had to have exploratory lap and bowel resection at that time. Subsequent to that, she has developed a hernia and she just had the acute onset of pain yesterday. Review of Systems: Otherwise unremarkable. Past Medical History: Asthma, COPD, hypertension, factor V disorder, chronic bronchiectasis. Past Surgical History: Appendectomy, , partial hysterectomy, oophorectomy, cholecystectomy, hip surgery. Allergies: REVIEWED INCLUDE MORPHINE, SULFA, TRIMETHOPRIM, CODEINE, AND CARISOPRODOL. Social History: The patient denies smoking or drinking alcohol. Physical Examination: Vital Signs: Stable. The patient is afebrile. General: She is awake and alert. Head and Neck: No neck masses. No JVD. Throat clear. Neck is supple. Chest: Clear. Heart: S1, S2. Abdomen: Soft, slightly distended with a palpable mass on the right side of midline. Minimal tender ness. No rebound, rigidity, or guarding. There is a palpable hernia present. Extremities: Adequately perfused, nontender. Neuro: Nonfocal. Laboratory Data: White count is 3.9, platelets are 143. INR is 1.06. Chemistry reviewed, essential ly unremarkable. Low albumin, however. CT of the abdomen and pelvis reviewed shows small ventral he rnia containing a portion of anterior wall of the transverse colon without obstruction. Small fat co ntaining ventral hernia. Assessment: Incarcerated ventral hernia. Recommendation: Once we get medical clearance, we will proceed with laparoscopic-assisted repair of ventral hernia. The patient understands risks, benefits, alternatives and agrees to procedure. /MODL Voice ID: [id number] Report ID: [id number]
[2025-03-03] MEDS ORDERED: EPHEDRINE SULF 50 MG/ML VIAL ONE (11:59)
[2025-03-03] MEDS: HYDROMORPHONE HCL 0.5 MG/0.5 ML INJ ONE ×2 (13:23→13:33)
--- NOTE | 2025-03-03 13:40 | P.OP ---
Date of Service: 03/03/25 Preop diagnosis: Incarcerated ventral hernia x 2 Postop diagnosis: Same Procedure performed: Laparoscopic assisted repair of incarcerated ventral hernia x 2, extensive lysis of adhesions Surgeon: Breezy Waggoner MD Meeting Coordinator: Enriqueta DELACRUZ Estimated blood loss: Minimal Specimen: Hernia sac Findings: As above Anesthesia: General Complications: None Drains: None Fluids and blood products: Nonapplicable Disposition: Recovery room Operative note: Patient brought to the OR and placed in supine position. General anesthesia began. Patient prepped and draped in the usual sterile fashion. Marcaine 0.5% to treat locally. 15 blade used to make a 1 cm left upper quadrant incision. Subcutaneous tissue divided and bleeding controlled cautery. Fascia identified and divided. #1 Vicryl stay suture placed. Peritoneal cavity entered with sharp and blunt dissection. The end 12 mm trocar placed into the peritoneal cavity under direct vision. Pneumoperitoneum established. Two 5 mm trocars placed 1 in the left lower quadrant and another 1 in the right lower quadrant under direct vision. Laparoscopy revealed extensive omental adhesions. LigaSure used to lyse all of these adhesions. The lyse of adhesions took approximately 2024 minutes. There was transverse colon that was slightly incarcerated into the upper ventral hernia. A 6 cm incision was made over the hernia itself. Subcutaneous tissue divided and bleeding controlled cautery. Hernia sac identified and freed from surrounding tissue with sharp and blunt dissection. Hernia sac excised. Transverse colon dissected free from inside the hernia sac. Complete lysis of adhesion was accomplished at this point. The patient had a smaller 2.5 cm hernia inferior to the top 1 close to the umbilicus. That hernia was closed with Endo Close #1 PDS after the closure of the upper ventral hernia. The upper ventral hernia was closed with #1 PDS running suture. Pneumoperitoneum was reestablished. Complete coverage of the both hernias was accomplished. Bard balloon system large 8 x 10 inch mesh was placed in the peritoneal cavity and deployed in the standard fashion. Sorber tack was used to secure the mesh to the peritoneal surface. Complete coverage of the hernia was accomplished. The borders were at least 3 cm in every direction. There was no evidence of bleeding or bowel injury appreciated. All trocars removed under direct vision. Stay sutures tied to each other to reapproximate the fascial defect. Subcutaneous wound irrigated and bleeding controlled cautery. 3-0 chromic used to approximate subcu tissue and close skin. Sterile dressing applied. Patient awakened and taken to recovery room in good general condition. CC:
[2025-03-03] MEDS: FENTANYL CITR 100 MCG/2 ML ONE (13:43)
[2025-03-03] MEDS: HYDROMORPHONE HCL 1 MG/ML INJ IV PRN (14:39)
[2025-03-03] MEDS: Ringers Lactate 500 ML IV ONE (15:19)
[2025-03-04] MEDS: PIPER TAZO 3.375 GM in NA CHLORIDE 0.9% 100 ML IV SCH (00:31)
[2025-03-04] MEDS: HYDROCODONE/APAP 7.5/325 MG TAB PO PRN (05:17)
[2025-03-04 06:00] LABS: Absolute Lymphocytes (CBC) 1.3 K/uL (0.7-4.9); Hematocrit 41.7 % (36.0-45.0); Hemoglobin 14.1 g/dL (12.0-15.0); MCH 33.5 pg (27.0-35.0); MCHC 33.8 g/dL (32.0-36.0); MCV 99.2 fL (80-100); MPV 8.3 fL (7.6-11.3); Nucleated RBC Absolute Count 0.0 (0-0); Nucleated Red Blood Cells % 0.1 % (0-0); RBC Red Blood Cell Count 4.20 M/uL (3.86-4.86); White Blood Count 7.60 thou/uL (4.3-10.9)
[2025-03-04 06:22] LABS: ALT/SGPT 37.0 U/L (13-56); AST/SGOT 39.0 U/L (15-37); Albumin 2.9 g/dL (3.4-5.0); Albumin/Globulin Ratio 1.0 (1.1-1.8); Alkaline Phosphatase 90.0 U/L (45-117); Anion Gap 6.2 mEq/L (5.0-15.0); BUN Blood Urea Nitrogen 13.0 mg/dL (7-18); Globulin 2.8 g/dL (2.3-3.5); Glucose Level 117.0 mg/dL (74-106); Magnesium 1.8 mg/dL (1.6-2.4); Potassium 4.2 mEq/L (3.5-5.1)
[2025-03-04] MEDS: PANTOPRAZOLE 40MG TABLET PO SCH (07:30)
[2025-03-04] MEDS: Budesonide/Glycopyr/Formoterol [Breztri Aerosphere Inhaler] 10.7 GM Hfa *PT OWN MED IH SCH (08:40)
--- NOTE | 2025-03-04 09:55 | P.PN ---
Date of Service: 03/04/25 Subjective: episode of some abdominal pain associated with nausea/vomiting overnight feeling better this morning on rounds tolerated some jello and broth this morning burping frequently but no BM or flatus yet ambulated around the floor was tested for Factor V Leiden after son was found to have it first. States shes only a carrier and never had a blood clot Physical Exam: GEN: Alert, oriented, NAD CV: Regular rate and rhythm, no edema Pulm: Nonlabored respirations on 4L NC, clear bilaterally ABD: soft, tenderness, nondistended Neuro: Normal speech, normal affect Problem List: Intractable Abdominal Pain / Nausea secondary to Incarcerated ventral hernia x2 Incarcerated ventral hernia x2, now s/p hernia repair x2 with extensive lysis of adhesions (03/03) Chronic COPD (on 2L Home O2) Hypertension Hx of Factor V Leiden (Heterozygous) Hx of a-fib Hx of perforated small bowel Hx of basal cell carcinoma on admission, presents with sudden onset abdominal pain associated with nausea. Denies fever, chills, diarrhea, chest pain, SOB. CT abd/pelvis (03/02): No acute findings. Large 5.5 cm duodenal diverticulum. Multiple small ventral hernias. Bullous emphysematous changes Dr. Waggoner, general surgeon is following Found to have 2 incarcerated ventral hernias during surgery now s/p hernia repair x2 with extensive lysis of adhesions (03/03) diet per surgery continue IV zosyn (03/03-) IV fluids, pain control oral PPI 40 mg daily Had episode of abdominal pain with nausea/vomiting overnight. Feeling better today. Tolerated some jello and broth this morning VTE: Lovenox Code: Full Dispo: Home Pending has BM/flatus, tolerating diet, abd pain improves Time Spent Managing Pts Care (In Minutes): 55
--- NOTE | 2025-03-04 13:35 | PN ---
Date of Progress Note: 03/04/2025 Subjective: Patient is awake, alert, tolerating clear liquids. She is still requiring parenteral pa in management, but she feels better than she did yesterday. Objective: Vital Signs: Stable. She is afebrile. Abdomen: Soft, nondistended. Positive bowel sounds. Dressing is clean, dry, and intact. There is incisional tenderness. Diagnostic Data: Her laboratory data reviewed, essentially unremarkable. Assessment: Status post laparoscopic-assisted repair of incarcerated ventral hernia x2. Recommendation: Advance diet. Continue parenteral pain management. Try to go to oral pain medicine and hopefully discharge tomorrow morning. The patient is clinically doing well and is slowly improv ing. Plan of care discussed with the hospitalist team. CANDE/JONH Voice ID: [id number] Report ID: [id number]
[2025-03-04] MEDS: FLECAINIDE 100 MG TAB PO SCH (16:37)
[2025-03-04] MEDS: CITALOPRAM 10 MG TABLET PO SCH (19:46)
[2025-03-04] MEDS ORDERED: HOME MED 1 EA UNK (Flecainide Acetate [Flecainide Acetate] 50 MG Tablet) PO SCH (21:00)
[2025-03-05 05:04] LABS: Absolute Lymphocytes (CBC) 1.3 K/uL (0.7-4.9); Hematocrit 36.7 % (36.0-45.0); Hemoglobin 12.8 g/dL (12.0-15.0); MCH 34.2 pg (27.0-35.0); MCHC 34.9 g/dL (32.0-36.0); MCV 97.9 fL (80-100); MPV 7.9 fL (7.6-11.3); Nucleated RBC Absolute Count 0.0 (0-0); Nucleated Red Blood Cells % 0.1 % (0-0); RBC Red Blood Cell Count 3.75 M/uL (3.86-4.86); White Blood Count 6.10 thou/uL (4.3-10.9)
[2025-03-05 05:26] LABS: ALT/SGPT 80.0 U/L (13-56); AST/SGOT 63.0 U/L (15-37); Albumin 2.7 g/dL (3.4-5.0); Albumin/Globulin Ratio 0.8 (1.1-1.8); Alkaline Phosphatase 93.0 U/L (45-117); Anion Gap 6.9 mEq/L (5.0-15.0); BUN Blood Urea Nitrogen 8.0 mg/dL (7-18); Globulin 3.3 g/dL (2.3-3.5); Glucose Level 113.0 mg/dL (74-106); Magnesium 1.8 mg/dL (1.6-2.4); Potassium 3.9 mEq/L (3.5-5.1)
--- NOTE | 2025-03-05 08:26 | P.PN ---
Date of Service: 03/05/25 Subjective: reports some abdominal pain and nausea after eating some jello and broth. pain and nausea starts ~15-20 min after eating Can tolerate sips of water without issues no BM or flatus yet Physical Exam: GEN: Alert, oriented, NAD CV: Regular rate and rhythm, no edema Pulm: Nonlabored respirations on 4L NC, clear bilaterally ABD: soft, tenderness, nondistended Neuro: Normal speech, normal affect Problem List: Intractable Abdominal Pain / Nausea secondary to Incarcerated ventral hernia x2 Incarcerated ventral hernia x2, now s/p hernia repair x2 with extensive lysis of adhesions (03/03) Chronic COPD (on 2L Home O2) Hypertension Hx of Factor V Leiden (Heterozygous) Hx of a-fib Hx of perforated small bowel Hx of basal cell carcinoma on admission, presents with sudden onset abdominal pain associated with nausea. Denies fever, chills, diarrhea, chest pain, SOB. CT abd/pelvis (03/02): No acute findings. Large 5.5 cm duodenal diverticulum. Multiple small ventral hernias. Bullous emphysematous changes Dr. Waggoner, general surgeon is following Found to have 2 incarcerated ventral hernias during surgery now s/p hernia repair x2 with extensive lysis of adhesions (03/03) diet per surgery continue IV zosyn (03/03-) oral PPI, pain control Reports with some abdominal pain and nausea ~15-20 min after eating No BM or flatus yet VTE: Lovenox Code: Full Dispo: Home, ~1-2 days Pending has BM/flatus, tolerating diet, abd pain improves Time Spent Managing Pts Care (In Minutes): 45
[2025-03-05] MEDS: METOPROLOL XL 50 MG TAB PO SCH (09:25)
[2025-03-05] MEDS: POTASSIUM CL SA 10 MEQ TAB PO ONE (09:26)
--- NOTE | 2025-03-05 14:34 | PN ---
Date of Progress Note: 03/05/2025 Subjective: The patient is awake, alert. Still complaining of incisional pain and is still on clear liquids. She has not advanced as she feels as she cannot tolerate it. She is just getting up to go to the bathroom. She has not really ambulated much. Objective: Vital Signs: Stable. She is afebrile. Abdomen: Soft, nondistended. Dressing is clean, dry, intact. The patient has no signs of peritonit is on the abdominal exam. Laboratory Data: Her white count is normal. Chemistry shows just slight elevation of AST and ALT, o therwise no significant change. Assessment: Status post laparoscopic-assisted repair of incarcerated ventral hernia x2. Recommendation: Encourage ambulation. Physical therapy if needed. Advance diet as tolerated. The patient perhaps needs another day or so to recover from the surgery as a fairly extensive surgery. Rosmery go will follow this patient while in the hospital. The patient may shower today. CANDE/JONH Voice ID: [id number] Report ID: [id number]
[2025-03-06 06:12] LABS: Anion Gap 6.8 mEq/L (5.0-15.0); BUN Blood Urea Nitrogen 7.0 mg/dL (7-18); Glucose Level 108.0 mg/dL (74-106); Magnesium 2.0 mg/dL (1.6-2.4); Potassium 3.8 mEq/L (3.5-5.1)
[2025-03-06] MEDS: ALBUTEROL INHALER 200 PUFF/6.7 GM IH PRN (10:17)
[2025-03-06] MEDS: POTASSIUM 25 MEQ EFFERV TAB PO ONE ×2 (10:18→14:39)
--- NOTE | 2025-03-06 13:40 | PN ---
Date of Progress Note: 03/06/2025 Subjective: The patient is awake, alert. Tolerating full liquids. Ambulating to the bathroom, pass ing gas, but no bowel movement. Objective: Vital Signs: Stable. She is afebrile. Abdomen: Soft, nondistended, nontender. Positive bowel sounds. Assessment: Status post laparoscopic-assisted repair of incarcerated ventral hernia x2. The patient also had small bowel obstruction secondary to the hernia. Recommendations: We will re-evaluate the patient this afternoon. Should she be able to tolerate and ambulate better, from the Surgery standpoint, she is cleared for discharge. Discharge instructions have been given, but we will await medical clearance to make sure she is safe for discharge. I will discuss this case with the hospitalist team soon. CANDE/JONH Voice ID: [id number] Report ID: [id number]
[2025-03-06] MEDS: POTASSIUM 25 MEQ EFFERV TAB ONE (14:25)
--- NOTE | 2025-03-06 17:04 | P.PN ---
Date of Service: 03/06/25 Subjective: abd pain and nausea improving; but still feels moderate amount of soreness/pain feeling weak, unsteady on feet states has walker at home, asking if can try walker here breathing ok had small BM Physical Exam: GEN: Alert, oriented, NAD CV: Regular rate and rhythm, no edema Pulm: Nonlabored respirations on 4L NC, clear bilaterally ABD: soft, tenderness, nondistended Neuro: Normal speech, normal affect Problem List: Intractable Abdominal Pain / Nausea secondary to Incarcerated ventral hernia x2 Incarcerated ventral hernia x2, now s/p hernia repair x2 with extensive lysis of adhesions (03/03) Chronic COPD (on 2L Home O2) Hypertension Hx of Factor V Leiden (Heterozygous) Hx of a-fib Hx of perforated small bowel Hx of basal cell carcinoma on admission, presents with sudden onset abdominal pain associated with nausea. Denies fever, chills, diarrhea, chest pain, SOB. CT abd/pelvis (03/02): No acute findings. Large 5.5 cm duodenal diverticulum. Multiple small ventral hernias. Bullous emphysematous changes Dr. Waggoner, general surgeon is following Found to have 2 incarcerated ventral hernias during surgery now s/p hernia repair x2 with extensive lysis of adhesions (03/03) diet per surgery continue IV zosyn (03/03-) oral PPI, pain control abd pain and nausea improving, but still quite painful small BM today PT consulted VTE: Lovenox Code: Full Dispo: Home, likely tomorrow AM Pending tolerating diet, abd pain improves, ambulating safely Time Spent Managing Pts Care (In Minutes): 45
[2025-03-07 07:06] LABS: Hematocrit 35.6 % (36.0-45.0); Hemoglobin 12.0 g/dL (12.0-15.0); MCH 33.2 pg (27.0-35.0); MCHC 33.6 g/dL (32.0-36.0); MCV 98.8 fL (80-100); MPV 8.2 fL (7.6-11.3); RBC Red Blood Cell Count 3.61 M/uL (3.86-4.86); White Blood Count 3.80 thou/uL (4.3-10.9)
[2025-03-07 07:20] LABS: Anion Gap 6.0 mEq/L (5.0-15.0); BUN Blood Urea Nitrogen 10.0 mg/dL (7-18); Glucose Level 103.0 mg/dL (74-106); Potassium 4.0 mEq/L (3.5-5.1)
--- NOTE | 2025-03-07 11:11 | PN ---
Date of Progress Note: 03/07/2025 Subjective: The patient is awake, alert, doing better. Objective: Vital Signs: Stable. Afebrile. Abdomen: Benign Laboratory Data: Reviewed, essentially unremarkable. No significant change. Assessment: Status post laparoscopic-assisted repair of incarcerated ventral hernia x2. Recommendations: The patient is cleared from surgery point of view for discharge. Discharge instruc tions given. The patient will follow up with me next week. /MODL Voice ID: [id number] Report ID: [id number]
[2025-03-07 12:00] VITALS: O2SAT 95
[2025-03-07 13:21] VITALS: BP 159/60; TEMP 98
--- NOTE | 2025-03-07 14:37 | P.DS ---
Admission Date: 03/03/25 Discharge Date: 03/07/25 Disposition: ROUTINE DISCHARGE Discharge Condition: FAIR Reason for Admission: Abdominal pain, ventral hernia. Consultations: surgery - Problems (1) Pain in the abdomen Current Visit: Yes Status: Acute Brief History of Present Illness: Patient is a 64-year-old female with past medical history of essential hypertension, asthma, COPD, home oxygen dependence 2 L as needed, factor V blood disorder, who reports to the ER today complaining of diffused abdominal pain associated with nausea but no vomiting. Patient states she went to work today around 3 PM in good health, states around 3:30 pm while she was sitting, she became very diaphoretic with associated diffused abdominal pain with no chest pain or shortness of breath. Patient states she was more concerned because she has history of ruptured intestine about a year ago. Upon arrival to ER, patient had CT abdomen and pelvis with contrast, additional findings: Large 5.5 cm duodenal diverticulum along the C-loop. Small ventral hernia present containing a portion of anterior wall of the transverse colon without obstruction. Small fat-containing ventral hernia. Impression-no acute abnormality seen in the abdomen or pelvis. Hospital Course: Intractable Abdominal Pain / Nausea secondary to Incarcerated ventral hernia x2 Incarcerated ventral hernia x2, now s/p hernia repair x2 with extensive lysis of adhesions (03/03) Chronic COPD (on 2L Home O2) Hypertension Hx of Factor V Leiden (Heterozygous) Hx of a-fib Hx of perforated small bowel Hx of basal cell carcinoma on admission, presents with sudden onset abdominal pain associated with nausea. Denies fever, chills, diarrhea, chest pain, SOB. CT abd/pelvis (03/02): No acute findings. Large 5.5 cm duodenal diverticulum. Multiple small ventral hernias. Bullous emphysematous changes Dr. Waggoner, general surgeon is following Found to have 2 incarcerated ventral hernias during surgery now s/p hernia repair x2 with extensive lysis of adhesions (03/03) diet per surgery Vital Signs/Physical Exam: Temp Pulse Resp BP Pulse Ox 98.0 F 62 17 159/60 H 92 03/07/25 12:00 03/07/25 12:00 03/07/25 12:00 03/07/25 12:00 03/07/25 12:00 General: Oriented x3 HEENT: Atraumatic, Normocephalic Respiratory: Clear to auscultation bilaterally Cardiovascular: No edema, Normal pulses Gastrointestinal: No tenderness, No masses Musculoskeletal: No swelling Laboratory Data at Discharge: WBC 3.80 thou/uL (4.3-10.9) L 03/07/25 06:42 Hgb 12.0 g/dL (12.0-15.0) 03/07/25 06:42 Hct 35.6 % (36.0-45.0) L 03/07/25 06:42 Plt Count 147 thou/uL (152-406) L 03/07/25 06:42 PT 12.0 SECONDS (10-13.0) 03/02/25 18:00 INR 1.06 03/02/25 18:00 Sodium 141 mEq/L (136-145) 03/07/25 06:42 Potassium 4.0 mEq/L (3.5-5.1) 03/07/25 06:42 BUN 10 mg/dL (7-18) 03/07/25 06:42 Creatinine 0.80 mg/dL (0.55-1.02) 03/07/25 06:42 Glucose 103 mg/dL (74-106) 03/07/25 06:42 Phosphorus 3.6 mg/dL (2.5-4.9) 03/04/25 05:40 Magnesium 2.0 mg/dL (1.6-2.4) 03/06/25 05:32 Total Bilirubin 0.9 mg/dL (0.2-1.0) 03/05/25 04:39 AST 63 U/L (15-37) H 03/05/25 04:39 ALT 80 U/L (13-56) H 03/05/25 04:39 Alkaline Phosphatase 93 U/L (45-117) 03/05/25 04:39 Lipase 23 U/L (13-75) 03/02/25 18:00 Home Medications: Citalopram [Celexa*] 10 mg PO BEDTIME 11/28/22 Losartan Potassium [Cozaar] 100 mg PO DAILY 11/28/22 Albuterol Sulfate [Albuterol Sulfate Hfa] 2 puff IH Q6H PRN #1 inhaler 11/30/22 Metoprolol Succinate [Toprol Xl*] 50 mg PO DAILY 03/28/24 Omeprazole [Prilosec] 40 mg PO DAILY 03/28/24 Amlodipine Besylate 10 mg PO DAILY 11/28/24 Butalbital/Acetaminophen [Butalbital-Acetaminophn 50-325] 50 - 325 mg PO PRN PRN 11/28/24 Evolocumab [Repatha Syringe] 140 mg SQ SEECOM 11/28/24 Flecainide Acetate 50 mg PO BID 11/28/24 traMADol HCL [Ultram*] 50 mg PO Q6H PRN tab 01/05/25 Budesonide/Glycopyr/Formoterol [Breztri Aerosphere Inhaler] 2 puff IH DAILY 03/03/25 Hydrocodone 7.5/APAP 325 [[place] 7.5/325 mg*] 1 tab PO Q4H PRN #7 tab 03/07/25 New Medications: Hydrocodone 7.5/APAP 325 [[place] 7.5/325 mg*] 1 tab PO Q4H PRN #7 tab PRN Reason: Pain Scale 5-7 (Moderate) Physician Discharge Instructions: Physician discharge instructions: Patient presented with worsening abdominal pain associated with nausea secondary to [address] abdomen/pelvis on admission was negative for any acute findings but did note multiple small ventral hernias, Large 5.5 cm duodenal diverticulum, Bullous emphysematous changes. Patient was evaluated by Dr. Waggoner, general surgeon and underwent laparoscopic hernia repair of both incarcerated ventral hernias with extensive lysis of adhesions on 03/03. Pain improved with time post-operatively. Her diet was slowly advanced as tolerable. Patient was feeling better, abdominal pain improving and tolerable on oral pain medication, nausea resolved and was deemed stable for discharge. Patient was able to tolerate diet without issues on day of discharge. Recommend soft diet for the next 3-5 days. Can slowly ease back into regular diet over the next week. Follow up with Dr. Waggoner in 1 week in his office for further management. No heavy lifting > 10 lbs for 4-6 weeks or otherwise instructed by Dr. Waggoner. Medications: [place] as needed for pain Follow up: PCP 3-[address] Waggoner in 1 week Please call to schedule / confirm appointments Remove outer dressing and may shower in a.m. Keep Steri-Strips on at all times Activity as tolerated, no heavy lifting or strenuous exercise Resume home meds and diet Incentive spirometry as instructed Pain medicine per the hospitalist team Follow-up my office 1 week, call for appointment Diet: Low sodium Activity: No lifting more than 10 lbs Followup: Prashant Villa, [Primary Care Provider] - 1-2 Weeks Breezy Waggoner MD [ACTIVE - CAN ADMIT] - 1 Week
== END 2025-03-07 15:20 | disposition home or self-care (01) | DRG 337 ==
LOC: ER 17:38 → ERHOLD 22:45 → 2ND 23:42 → OBSVTOIN 03-03 11:29
PROVIDERS: ADMIT Hospitalist; ATTEND Internal Medicine
PROC: 0WQF0ZZ Repair Abdominal Wall, Open Approach (ICD-10-PCS; 2025-03-03)
PROC: 0DNU0ZZ Release Omentum, Open Approach (ICD-10-PCS; principal; 2025-03-03 10:30)
DX: K43.6 Other and unspecified ventral hernia with obstruction, without gangrene (principal); I10 Essential (primary) hypertension; J45.909 Unspecified asthma, uncomplicated; K21.9 Gastro-esophageal reflux disease without esophagitis; K57.10 Diverticulosis of small intestine without perforation or abscess without bleeding; Z23 Encounter for immunization; Z88.1 Allergy status to other antibiotic agents; Z88.5 Allergy status to narcotic agent; Z99.81 Dependence on supplemental oxygen; Z90.49 Acquired absence of other specified parts of digestive tract; Z79.899 Other long term (current) drug therapy
CPT/HCPCS: 36415; 74177; 80048; 80053; 80076; 83690; 83735; 84100; 84132; 84484; 85025; 85027; 85610; 88302; 90471; 90732; 93005; 94010; 97116; 97161; 99285; G0378; J0330; J1171; J1650; J2003; J2405; J2543; J2704; J3010; J7030; J7120; J7121; J7613; Q9967

== ENCOUNTER 2025-03-14 08:54 | Inpatient (IN) | payer OTHER ==
[2025-03-14] MEDS ORDERED: MORPHINE 4 MG/ML SYR ONE ×2 (09:48→11:17)
[2025-03-14] MEDS ORDERED: NA CHLORIDE 0.9% 1,000 ML ONE (09:48)
[2025-03-14] MEDS ORDERED: ONDANSETRON 4 MG/2 ML VIAL ONE (09:48)
[2025-03-14 10:08] LABS: Absolute Lymphocytes (CBC) 1.3 K/uL (0.7-4.9); Hematocrit 45.3 % (36.0-45.0); Hemoglobin 15.4 g/dL (12.0-15.0); MCH 33.5 pg (27.0-35.0); MCHC 33.9 g/dL (32.0-36.0); MCV 98.7 fL (80-100); MPV 8.2 fL (7.6-11.3); Nucleated RBC Absolute Count 0.0 (0-0); Nucleated Red Blood Cells % 0.1 % (0-0); RBC Red Blood Cell Count 4.59 M/uL (3.86-4.86); White Blood Count 5.70 thou/uL (4.3-10.9)
--- NOTE | 2025-03-14 10:16 | RAD REPORT ---
EXAMINATION: CTA CHEST PE CLINICAL INDICATION: post op pain and hypoxia/tachycardia; do with abd study TECHNIQUE: This examination was performed according to an angiographic protocol with 3D post-processi ng. This involves 3D reconstructions, MIPs, volume rendered images and/or shaded surface rendering. One or more of the following dose reduction techniques were used: Automated exposure control, adjustm ent of the mA and/or kV according to patient size, and/or iterative reconstruction. Unless otherwise specified, incidental findings do not require dedicated imaging follow-up. COMPARISON: No prior exam. FINDINGS: PULMONARY ARTERIES: Normal caliber. No evidence of pulmonary emboli to the subsegmental level. THORACIC AORTA: Normal caliber and configuration. LUNGS: Advanced bullous emphysematous changes. Atelectasis versus PLEURA: No pleural effusion. No pneumothorax. MEDIASTINUM AND LYMPH NODES: No mediastinal mass or fluid collection. Normal size mediastinal, hilar, and axillary lymph nodes. OSSEOUS STRUCTURES AND CHEST WALL: Intact. UPPER ABDOMEN: No significant abnormalities. Cholecystectomy clips. IMPRESSION: No evidence of pulmonary emboli to the subsegmental level. Advanced bullous emphysematous changes.
--- NOTE | 2025-03-14 10:21 | RAD REPORT ---
EXAMINATION: CT ABDOMEN AND PELVIS WITH CONTRAST CLINICAL INDICATION: post op hernia 11 days;Abd pain TECHNIQUE: CT abdomen and pelvis was performed, after the administration of IV contrast, [facility]. Axial, sagittal and coronal reconstructions were obtained. One or more of the following dose reduction techniques were used: Automated exposure control, adjustment of the mA and k V according to patient size, and iterative reconstruction. Unless otherwise specified, incidental findings do not require dedicated imaging follow-up. COMPARISON: 03/02/2025, 06/17/2024 FINDINGS: LOWER CHEST: Prominent emphysematous changes in the lower lung palmer. LIVER: Normal in size and contour. No focal lesion. Cholecystectomy clips. SPLEEN: Normal size. No focal lesion. PANCREAS: No mass, ductal dilation, or eduar-pancreatic fluid. ADRENALS: Normal; no mass. KIDNEYS: Normal size and contour. No hydronephrosis. GASTROINTESTINAL TRACT: Postsurgical changes are present along the anterior abdominal wall superiorly . There is a thin 10 mm fluid density collection along the anterior abdominal wall fascia. Postsurgical changes are seen in the adjacent subcutaneous fat. Sterility is indeterminant. There marcos ears to be focal thickening of a portion of the transverse colon that traverses this region. Small bowel diverticulosis noted. APPENDIX: Appendix surgically absent. LYMPH NODES: No lymphadenopathy. MUSCULOSKELETAL: Mild multilevel spinal degenerative changes. ADDITIONAL FINDINGS: Proximal right femur hardware. IMPRESSION: 10 mm thick crescentic fluid density collection along the anterior abdominal wall fascial planes deep to presume side of intervention. Sterility is indeterminant. Focal thickening of a portion of the transverse colon is seen which traverses this collection and is just deep to its margin. This may ind icate inflammation or infection in this region. Small bowel diverticulosis.
[2025-03-14 10:29] LABS: ALT/SGPT 24.0 U/L (13-56); AST/SGOT 21.0 U/L (15-37); Albumin 3.2 g/dL (3.4-5.0); Albumin/Globulin Ratio 0.9 (1.1-1.8); Alkaline Phosphatase 100.0 U/L (45-117); Anion Gap 9.4 mEq/L (5.0-15.0); BUN Blood Urea Nitrogen 12.0 mg/dL (7-18); Globulin 3.4 g/dL (2.3-3.5); Glucose Level 121.0 mg/dL (74-106); Lipase 29.0 U/L (13-75); Potassium 3.4 mEq/L (3.5-5.1); Troponin High Sensitivity 11.0 pg/mL (<58.9)
--- NOTE | 2025-03-14 10:47 | EDPHYS ---
Physician Documentation [facility] Name: Rhona Ladd Age: 64 yrs Sex: Female : 1960 Arrival Date: 03/14/2025 Time: 08:54 Bed 5 Private MD: ED Physician Raymond Villa HPI: 03/14 09:13 This 64 yrs old Female presents to ER via Wheelchair with complaints of Post Surgical sp3 Pain. 09:13 64-year-old female with history of hypertension and COPD/asthma now status post op day sp3 11 from ventral hernia surgery by Dr. Waggoner now presents to the ED from his office for increased abdominal pain over the last 48 hours on the right lower quadrant and tachycardia. Patient denies any other symptoms including fever, chest pain, shortness of breath, back pain, bleeding, diarrhea, vomiting, syncope, near syncope, or any other signs or symptoms on ROS at this time.. Historical: - Allergies: 08:59 Bactrim; ll1 08:59 Morphine; ll1 08:59 Soma; ll1 - PMHx: 08:59 Asthma; Hypertension; ll1 - PSHx: 08:59 Appendectomy; bowel resection; section; Cholecystectomy; ARTEM IN HER FEMUR; ll1 hernia repairs x 2 (ARTEM IN HER FEMUR); - Immunization history:: Adult Immunizations up to date. - Infectious Disease History:: Denies. - Social history:: Smoking status: Patient denies any tobacco usage or history of. ROS: 09:14 Constitutional: Negative for fever, chills, and weight loss, Eyes: Negative for injury, sp3 pain, redness, and discharge, ENT: Negative for injury, pain, and discharge, Neck: Negative for injury, pain, and swelling, Cardiovascular: Negative for chest pain, palpitations, and edema, Respiratory: Negative for shortness of breath, cough, wheezing, and pleuritic chest pain, Back: Negative for injury and pain, MS/Extremity: Negative for injury and deformity, Skin: Negative for injury, rash, and discoloration, Neuro: Negative for headache, weakness, numbness, tingling, and seizure, Psych: Negative for depression, anxiety, suicide ideation, homicidal ideation, and hallucinations, Allergy/Immunology: Negative for hives, rash, and allergies, Endocrine: Negative for neck swelling, polydipsia, polyuria, polyphagia, and marked weight changes, Hematologic/Lymphatic: Negative for swollen nodes, abnormal bleeding, and unusual bruising, 09:14 All other systems are negative, Exam: 09:15 Constitutional: This is a well developed, well nourished patient who is awake, alert, sp3 and in no acute distress. Head/Face: Normocephalic, atraumatic. Eyes: Pupils equal round and reactive to light, extra-ocular motions intact. Lids and lashes normal. Conjunctiva and sclera are non-icteric and not injected. Cornea within normal limits. Periorbital areas with no swelling, redness, or edema. Neck: Trachea midline, no thyromegaly or masses palpated, and no cervical lymphadenopathy. Supple, full range of motion without nuchal rigidity, or vertebral point tenderness. No Meningismus. Chest/axilla: Normal chest wall appearance and motion. Nontender with no deformity. No lesions are appreciated. Respiratory: Lungs have equal breath sounds bilaterally, clear to auscultation and percussion. No rales, rhonchi or wheezes noted. No increased work of breathing, no retractions or nasal flaring. Back: No spinal tenderness. No costovertebral tenderness. Full range of motion. MS/ Extremity: Pulses equal, no cyanosis. Neurovascular intact. Full, normal range of motion. Neuro: Awake and alert, GCS 15, oriented to person, place, time, and situation. Cranial nerves II-XII grossly intact. Motor strength 5/5 in all extremities. Sensory grossly intact. Cerebellar exam normal. Normal gait. Psych: Awake, alert, with orientation to person, place and time. Behavior, mood, and affect are within normal limits. 09:15 Cardiovascular: Rate: tachycardic, 09:15 Abdomen/GI: Surgical sites appear clean without bleeding or discharge. Patient has sp3 right lower quadrant abdominal pain to palpation without peritoneal signs, rebound or guarding., 12:11 ECG was reviewed by the Attending Physician. EKG demonstrates normal sinus rhythm 75 sp3 bpm with normal intervals, normal QRS, normal axis, nonspecific diffuse ST/T changes without evidence of acute ischemia. Vital Signs: 09:00 BP 145 / 95; Pulse 114; Resp 17; Pulse Ox 88% ; Weight 94.35 kg; Height 5 ft. 8 in. ; ll1 Pain 10; 09:17 Pulse Ox 92% on 2 lpm NC; ll1 10:15 BP 135 / 73; Pulse 79; Resp 18; Pulse Ox 96% on 2 lpm NC; ph 11:15 BP 142 / 81; Pulse 77; Resp 18; Pulse Ox 96% on 2 lpm NC; ph 12:17 BP 132 / 65; Pulse 80; Resp 18; Pulse Ox 96% on 2 lpm NC; ph 13:30 BP 133 / 73; Pulse 78; Resp 18; Temp 98.4; Pulse Ox 98% on 2 lpm NC; ph 09:00 Body Mass Index 31.63 (94.35 kg, 172.72 cm) ll1 09:00 Pain Scale: Adult ll1 MDM: 08:57 Medical Screening Exam initiated sb4 09:15 Data reviewed: vital signs, nurses notes, lab test result(s), EKG, radiologic studies. sp3 09:17 ED course: 64-year-old female postop day 11 from ventral hernia surgery with abdominal sp3 pain, tachycardia and oxygen level in the upper 80s. She does have COPD. Differential diagnosis includes surgical complication, abdominal infection, appendicitis, UTI/pyelonephritis spectrum, kidney stone, and to a lesser degree PE or other complication. Workup will include EKG, CT scan of the chest abdomen pelvis under PE protocol to assess lung portion, general labs, lactate and general supportive care. IV fluids, pain and nausea medication as needed. Disposition pending workup and patient course along with surgical consultation.. 10:45 ED course: CT shows 1 cm fluid collection and mild colitis. Plan will be IV sp3 antibiotics, pain control and diet as tolerated starting with clear liquids. I have discussed the case with Dr. Waggoner and the hospitalist service who will be taking over.. 03/14 09:00 Order name: CBC with Diff; Complete Time: 10:24 sp3 03/14 09:00 Order name: CMP sp3 03/14 09:00 Order name: Lipase sp3 03/14 09:00 Order name: UA Rfx Atul Cult if indicated sp3 03/14 09:00 Order name: Lactate w/ 2H reflex if indic. sp3 03/14 10:09 Order name: Troponin High Sensitivity EDMS 03/14 11:06 Order name: Phosphorus EDMS 03/14 11:06 Order name: PTT, Activated Partial Thromb EDMS 03/14 11:06 Order name: Basic Metabolic Panel EDMS 03/14 11:06 Order name: Basic Metabolic Panel EDMS 03/14 11:06 Order name: CBC with Automated Diff EDMS 03/14 11:06 Order name: CBC with Automated Diff EDMS 03/14 09:00 Order name: CT Abd/Pelvis - IV Contrast Only; Complete Time: 10:24 sp3 03/14 09:16 Order name: CT Chest For PE Angio; Complete Time: 10:24 sp3 03/14 09:00 Order name: IV Saline Lock; Complete Time: 10:15 sp3 03/14 09:00 Order name: Labs collected and sent; Complete Time: 10:16 sp3 03/14 09:00 Order name: NPO; Complete Time: 09:45 sp3 03/14 09:18 Order name: EKG - Nurse/Tech; Complete Time: 12:14 sp3 Administered Medications: 10:16 Drug: Ondansetron IVP 4 mg IVP once; over 2 minutes Route: IVP; Site: right antecubital;ph 13:52 Follow up: Response: No adverse reaction ph 10:16 Drug: morphine IVP or IV 4 mg IVP once over 4 mins Route: IVP; Infused Over: 4 mins; ph Site: right antecubital; 10:35 Follow up: Response: No adverse reaction; Pain is unchanged, physician notified ph 10:16 Drug: NS 0.9% IV 1000 ml IV at 1 bolus Per protocol; to be given as a bolus over 60 ph minutes Route: IV; Rate: 1 bolus; Site: right antecubital; 11:15 Follow up: Response: No adverse reaction; IV Status: Completed infusion; IV Intake: ph 1000ml 11:28 Drug: Piperacillin-Tazobactam IVPB 3.375 grams IVPB once over 60 mins; (mix in NS 100 ph mL) Route: IVPB; Infused Over: 60 mins; Site: right forearm; 12:00 Follow up: Response: No adverse reaction; IV Status: Completed infusion ph 11:28 Drug: morphine IVP or IV 4 mg IVP once over 4 mins Route: IVP; Infused Over: 4 mins; ph Site: right forearm; 12:00 Follow up: Response: No adverse reaction; Pain is unchanged, physician notified ph 13:45 Drug: HYDROmorphone IVP 1 mg IVP once Route: IVP; Site: right forearm; ph 13:51 Follow up: Response: No adverse reaction; Pain is decreased; RASS: Alert and Calm (0) ph Disposition Summary: 03/14/25 10:46 Hospitalization Ordered Notes: Hospitalization Status: Inpatient Admission sp3 Provider: Nikkie Brooks sp3 [facility] Condition: Stable sp3 Problem: an acute exacerbation sp3 Symptoms: have worsened sp3 Bed/Room Type: Standard sp3 Room Assignment: 415(03/14/25 11:14) bd Diagnosis - Abdominal pain, postoperative fluid collection, colitis sp3 Forms: - Medication Reconciliation Form sp3 - SBAR form sp3 - Leadership Thank You Letter sp3 Signatures: Dispatcher [employer] EDMS Margarita Fowler Patricia RN RN ph JozefPallavi RN RN ll1 Raymond Villa MD MD sp3 Effie Smart PA-C PA-C sb4 Corrections: (The following items were deleted from the chart) 09:00 09:00 CBC+H.LAB.BRZ ordered. EDMS EDMS 09:00 09:00 COMPREHENSIVE METABOLIC PANEL+C.LAB.BRZ ordered. EDMS EDMS 09:00 09:00 LIPASE+C.LAB.BRZ ordered. EDMS EDMS 09:00 09:00 UA Rfx Atul Cult if indicated+U.LAB.BRZ ordered. EDMS EDMS 09:00 09:00 LACTATE+C.LAB.BRZ ordered. EDMS EDMS 09:00 09:00 Abdomen Pelvis W Con+CT.RAD.BRZ ordered. EDMS EDMS 09:17 09:13 64-year-old female with history of hypertension and asthma now status post op day sp3 11 from ventral hernia surgery by Dr. Waggoner now presents to the ED from his office for increased abdominal pain over the last 48 hours on the right lower quadrant and tachycardia. Patient denies any other symptoms including fever, chest pain, shortness of breath, back pain, bleeding, diarrhea, vomiting, syncope, near syncope, or any other signs or symptoms on ROS at this time.. sp3 10:09 09:19 Troponin High Sensitivity+C.LAB.BRZ ordered. EDMS EDMS 11:14 10:46 sp3 bd
--- NOTE | 2025-03-14 10:47 | ER ---
Nurse's Notes [facility] Name: Rhona Ladd Age: 64 yrs Sex: Female : 1960 Arrival Date: 03/14/2025 Time: 08:54 Bed 5 Private MD: Diagnosis: Abdominal pain, postoperative fluid collection, colitis Presentation: 03/14 09:00 Chief complaint: Patient states: Abdominal pain is severe since having hernia repairs. ll1 Coronavirus screen: Client denies travel out of the [place] in the last 14 days. At this time, the client does not indicate any symptoms associated with coronavirus-19. Ebola Screen: Patient denies travel to an Ebola-affected area in the 21 days before illness onset. Initial Sepsis Screen: Does the patient meet any 2 criteria? No. Patient's initial sepsis screen is negative. Does the patient have a suspected source of infection? No. Patient's initial sepsis screen is negative. Risk Assessment: Do you want to hurt yourself or someone else? Patient reports no desire to harm self or others. Onset of symptoms was March 09, 2025. 09:00 Method Of Arrival: Wheelchair ll1 09:00 Acuity: CHON 3 ll1 Historical: - Allergies: 08:59 Bactrim; ll1 08:59 Morphine; ll1 08:59 Soma; ll1 - PMHx: 08:59 Asthma; Hypertension; ll1 - PSHx: 08:59 Appendectomy; bowel resection; section; Cholecystectomy; ARTEM IN HER FEMUR; ll1 hernia repairs x 2 (ARTEM IN HER FEMUR); - Immunization history:: Adult Immunizations up to date. - Infectious Disease History:: Denies. - Social history:: Smoking status: Patient denies any tobacco usage or history of. Screenin:16 [facility] ED Fall Risk Assessment (Adult) History of falling in the last 3 months, ph including since admission No falls in past 3 months (0 pts) Confusion or Disorientation No (0 pts) Intoxicated or Sedated No (0 pts) Impaired Gait No (0 pts) Mobility Assist Device Used No (0 pt) Altered Elimination No (0 pt) Score/Fall Risk Level 0 - 2 = Low Risk Oriented to surroundings, Maintained a safe environment, Provided non-skid footwear, Hourly rounding (assess needs \T\ fall precautionary measures) done. Abuse screen: Denies threats or abuse. Denies injuries from another. Nutritional screening: No deficits noted. Tuberculosis screening: No symptoms or risk factors identified. Assessment: 10:30 General: Appears in no apparent distress. uncomfortable, Behavior is calm, cooperative. ph Pain: Complains of pain in right lower quadrant. Neuro: Level of Consciousness is awake, alert, obeys commands, Oriented to person, place, time, situation. Cardiovascular: Capillary refill < 3 seconds in bilateral fingers Patient's skin is warm and dry. Respiratory: Airway is patent Respiratory effort is even, unlabored, Respiratory pattern is regular, symmetrical. GI: Reports lower abdominal pain. Derm: Skin is pink, warm \T\ dry. 13:48 Reassessment: Patient appears in no apparent distress at this time. Patient and/or ph family updated on plan of care and expected duration. Pain level reassessed. Patient is alert, oriented x 3, equal unlabored respirations, skin warm/dry/pink. Pt continues to c/o pain, Dr Waggoner at bedside to see pt, verbal order received for 1mg Dilaudid IVP. Vital Signs: 09:00 BP 145 / 95; Pulse 114; Resp 17; Pulse Ox 88% ; Weight 94.35 kg; Height 5 ft. 8 in. ; ll1 Pain 10/10; 09:17 Pulse Ox 92% on 2 lpm NC; ll1 10:15 BP 135 / 73; Pulse 79; Resp 18; Pulse Ox 96% on 2 lpm NC; ph 11:15 BP 142 / 81; Pulse 77; Resp 18; Pulse Ox 96% on 2 lpm NC; ph 12:17 BP 132 / 65; Pulse 80; Resp 18; Pulse Ox 96% on 2 lpm NC; ph 13:30 BP 133 / 73; Pulse 78; Resp 18; Temp 98.4; Pulse Ox 98% on 2 lpm NC; ph 09:00 Body Mass Index 31.63 (94.35 kg, 172.72 cm) ll1 09:00 Pain Scale: Adult ll1 ED Course: 08:56 Patient arrived in ED. mr 08:56 [facility] sb4 08:56 Raymond Villa MD is Attending Physician. sb4 09:01 Triage completed. ll1 09:45 Kellee Vargas, RN is Primary Nurse. ph 10:06 CT Abd/Pelvis - IV Contrast Only In Process Unspecified. EDMS 10:06 CT Chest For PE Angio In Process Unspecified. EDMS 10:46 Nikkie Brooks MD is Hospitalizing Provider. sp3 12:15 Initial lab(s) drawn, by mt, sent to lab. Inserted saline lock: 22 gauge in right ph forearm, using aseptic technique. Blood collected. Flushed with 10 mL NS. Patient admitted, IV remains in place. 12:16 EKG done, by ED staff, reviewed by Raymond Villa MD. ph 12:17 Arm band placed on. ph 12:17 Patient has correct armband on for positive identification. Bed in low position. Call ph light in reach. Side rails up X 1. Pulse ox on. NIBP on. Door closed. Noise minimized. Warm blanket given. 12:19 No provider procedures requiring assistance completed. ph Administered Medications: 10:16 Drug: Ondansetron IVP 4 mg IVP once; over 2 minutes Route: IVP; Site: right antecubital;ph 13:52 Follow up: Response: No adverse reaction ph 10:16 Drug: morphine IVP or IV 4 mg IVP once over 4 mins Route: IVP; Infused Over: 4 mins; ph Site: right antecubital; 10:35 Follow up: Response: No adverse reaction; Pain is unchanged, physician notified ph 10:16 Drug: NS 0.9% IV 1000 ml IV at 1 bolus Per protocol; to be given as a bolus over 60 ph minutes Route: IV; Rate: 1 bolus; Site: right antecubital; 11:15 Follow up: Response: No adverse reaction; IV Status: Completed infusion; IV Intake: ph 1000ml 11:28 Drug: Piperacillin-Tazobactam IVPB 3.375 grams IVPB once over 60 mins; (mix in NS 100 ph mL) Route: IVPB; Infused Over: 60 mins; Site: right forearm; 12:00 Follow up: Response: No adverse reaction; IV Status: Completed infusion ph 11:28 Drug: morphine IVP or IV 4 mg IVP once over 4 mins Route: IVP; Infused Over: 4 mins; ph Site: right forearm; 12:00 Follow up: Response: No adverse reaction; Pain is unchanged, physician notified ph 13:45 Drug: HYDROmorphone IVP 1 mg IVP once Route: IVP; Site: right forearm; ph 13:51 Follow up: Response: No adverse reaction; Pain is decreased; RASS: Alert and Calm (0) ph Medication: 12:16 VIS not applicable for this client. ph Intake: 11:15 IV: 1000ml; Total: 1000ml. ph Outcome: 10:46 Decision to Hospitalize by Provider. sp3 13:53 Patient left the ED. ll1 13:53 Admitted to Med/surg accompanied by elise, ph 13:53 Condition: good 13:53 Instructed on the need for admit, Signatures: Dispatcher [employer] EDGeetha Espinoza, Wiliam Reg mr Kellee Vargas RN RN ph Pallavi Haskins RN RN ll1 Raymond Villa MD MD sp3 Effie Smart PAZoe PAZoe sb4 Corrections: (The following items were deleted from the chart) 13:52 12:30 Response: No adverse reaction; IV Status: Completed infusion ph ph
[2025-03-14] MEDS ORDERED: ACETAMINOPHEN 325 MG TABLET PO PRN (10:57)
[2025-03-14] MEDS ORDERED: ONDANSETRON 4 MG/2 ML VIAL IV PRN (11:03)
[2025-03-14] MEDS ORDERED: LABETALOL 20 MG/4ML SYRINGE IV PRN (11:05)
--- NOTE | 2025-03-14 11:07 | P.HP ---
Certification for Inpatient Patient admitted to: Inpatient With expected LOS: >2 Midnights Patient will require the following post-hospital care: None Practitioner: I am a practitioner with admitting privileges, knowledge of patient current condition, hospital course, and medical plan of care. Services: Services provided to patient in accordance with Admission requirements found in Title 42 Section 412.3 of the Code of Federal Regulations <Shara Campo Donavan - Last Filed: 03/14/25 20:31> Patient History Date of Service: 03/14/25 Reason for admission: Abdominal pain History of Present Illness: Patient is a 64-year-old female with a past medical history significant for asthma, hypertension, COPD who presents with complaint of abdominal pain onset 6 days ago. Patient had a ventral hernia repair last week. Patient reported that she started experiencing right lower quadrant pain rated as 10/10 in severity and described pain as aching in quality. Patient denies any other signs and symptoms. Symptoms are aggravated or relieved by nothing. Patient reported that she went fora follow-up appointment with her surgeon and was instructed to go to the ER. Patient decided to present to the hospital as directed by her surgeon. - Past Medical/Surgical History Diabetic: No -: Asthma -: COPD -: HTN -: Factor V Blood disorder -: Chronic bronchiectasis -: Appendectomy 1971 -: 1977, 1978 -: Partial hysterectomy 1981 -: Ovary removal 1995 -: Cholecystetomy 2015 -: Hip fracture repair with pin placement 2016 Psychosocial/ Personal History: Lives at home with family - Family History Mother -: Heart disease, Hypertension, Diabetes Brother -: Hypertension Father -: Heart disease, Hypertension, Diabetes - Social History Smoking Status: Never smoker Alcohol use: No CD- Drugs: No Caffeine use: No Place of Residence: Home <ClintonjaskarandonavanAdismark White - Last Filed: 03/14/25 20:31> Date of Service: 03/16/25 <Nikkie Brooks - Last Filed: 03/16/25 06:46> Allergies carisoprodol [From Soma] Allergy (Unknown, Verified 11/28/24 10:39) Itching sulfamethoxazole [From Bactrim] Allergy (Unknown, Verified 11/28/24 10:39) Itching trimethoprim [From Bactrim] Allergy (Unknown, Verified 11/28/24 10:39) Itching Sulfa (Sulfonamide Antibiotics) Allergy (Verified 11/28/24 10:39) Itching Home Medications: Citalopram [Celexa*] 10 mg PO BEDTIME 11/28/22 Losartan Potassium [Cozaar] 100 mg PO DAILY 11/28/22 Albuterol Sulfate [Albuterol Sulfate Hfa] 2 puff IH Q6H PRN #1 inhaler 11/30/22 Metoprolol Succinate [Toprol Xl*] 50 mg PO DAILY 03/28/24 Omeprazole [Prilosec] 40 mg PO DAILY 03/28/24 Amlodipine Besylate 10 mg PO BEDTIME 11/28/24 Butalbital/Acetaminophen [Butalbital-Acetaminophn 50-325] 50 - 325 mg PO PRN PRN 11/28/24 Evolocumab [Repatha Syringe] 140 mg SQ SEECOM 11/28/24 Flecainide Acetate 50 mg PO BID 11/28/24 traMADol HCL [Ultram*] 50 mg PO Q6H PRN tab 01/05/25 Budesonide/Glycopyr/Formoterol [Breztri Aerosphere Inhaler] 2 puff IH DAILY 03/03/25 Review of Systems General: Unremarkable Eyes: Unremarkable ENT: Unremarkable Respiratory: Unremarkable Cardiovascular: Unremarkable Gastrointestinal: Abdominal Pain Genitourinary: Unremarkable Musculoskeletal: Unremarkable Integumentary: Unremarkable Neurological: Unremarkable Lymphatics: Unremarkable <Shara Campo - Last Filed: 03/14/25 20:31> Physical Examination - Physical Exam General: Alert, In no apparent distress, Oriented x3, Cooperative HEENT: Atraumatic, PERRLA, Mucous membr. moist/pink, EOMI, Sclerae nonicteric Neck: Supple, 2+ carotid pulse no bruit, No LAD, Without JVD or thyroid abnorma lity Respiratory: Clear to auscultation bilaterally, Normal air movement Cardiovascular: No edema, Regular rate/rhythm, Normal S1 S2 Capillary refill: <2 Seconds Gastrointestinal: Normal bowel sounds, Tenderness Musculoskeletal: No clubbing, No tenderness Integumentary: No rashes, No significant lesion Neurological: Normal gait, Normal speech, Normal strength at 5/5 x4 extr, Normal tone, Normal affect Lymphatics: No axilla or inguinal lymphadenopathy - Studies Laboratory Data (last 24 hrs) 03/14/25 03/14/25 09:59 09:59 WBC 5.70 Hgb 15.4 H Hct 45.3 H Plt Count 234 Sodium 142 Potassium 3.4 L BUN 12 Creatinine 1.00 Glucose 121 H Total Bilirubin 0.4 AST 21 ALT 24 Alkaline Phosphatase 100 Lipase 29 <Shara Campo - Last Filed: 03/14/25 20:31> - Studies Laboratory Data (last 24 hrs) 03/14/25 03/14/25 09:59 09:59 WBC 5.70 Hgb 15.4 H Hct 45.3 H Plt Count 234 Sodium 142 Potassium 3.4 L BUN 12 Creatinine 1.00 Glucose 121 H Total Bilirubin 0.4 AST 21 ALT 24 Alkaline Phosphatase 100 Lipase 29 <Nikkie Brooks - Last Filed: 03/16/25 06:46> Assessment and Plan - Plan Postop complication Abdominal pain. --CT abdomen indicates Postsurgical changes are present along the anterior abdominal wall superiorly. There is a thin 10 mm fluid density collection along the anterior abdominal wall fascia. Postsurgical changes are seen in the adjacent subcutaneous fat. Sterility is indeterminant. There appears to be focal thickening of a portion of the transverse colon that traverses this region --Surgeon consulted. Recommendations appreciated Asthma\COPD\depression --Continue home medications Hypertension --Stable. --Continue home medications Hypokalemia. -- Replete as needed. CKD 2. --Stable. --Will continue to monitor renal functions. DVT prophylaxis with Lovenox subQ Discharge Plan: Home Plan to discharge in: 48 Hours - Advance Directives Does patient have a Living Will: No Does patient have a Durable POA for Healthcare: No - Code Status/Comfort Care Code Status Assessed: Yes Physician Review: Patient Assessed, Agree with Above Assessment and Plan Critical Care: No <Shara Campo - Last Filed: 03/14/25 20:31> Physician Review: Patient Assessed, Agree with Above Assessment and Plan <Nikkie Brooks - Last Filed: 03/16/25 06:46>
[2025-03-14] MEDS ORDERED: PIPERACIL/TAZO 3.375 GM VIAL IV ONE (11:17)
[2025-03-14] MEDS ORDERED: NA CHLORIDE 0.9% 100 ML ONE (11:17)
[2025-03-14] MEDS ORDERED: HYDROMORPHONE HCL 1 MG/ML INJ ONE (13:40)
[2025-03-14 14:17] VITALS: BMI 31.6
--- NOTE | 2025-03-14 16:50 | CON ---
Date of Consultation: 03/14/2025 Reason For Consultation: Abdominal pain. History Of Present Illness: The patient is a 64-year-old female with multiple medical problems who u nderwent a laparoscopic assisted repair of incarcerated ventral hernia x2. [facility] and then she was discharged. At home, she was doing well u ntil approximately 5 days ago where she said that she turned a certain way and the pain occurred on t he right side of the abdomen. She denies any nausea or vomiting, but she has not really eaten much. She came to my office for followup today and she appeared dehydrated. Her blood pressure was high. Her heart rate was high and she was advised to go to the emergency room for further evaluation and w orkup. The patient denies any sore throat, runny nose, cough, headaches, or dizziness. No chest elaine n. No fevers or chills. Review of Systems: Otherwise, unremarkable. Past Medical History: Asthma, COPD, hypertension, factor V disorder, chronic bronchiectasis. Past Surgical History: Significant for recent hernia repair, appendectomy, , partial hyster ectomy, oophorectomy, cholecystectomy, and hip surgery. Allergies: INCLUDE MORPHINE, SULFA, CODEINE, AND CARISOPRODOL. Social History: The patient does not smoke or drink alcohol. Family History: Noncontributory. Physical Examination: Vital Signs: Currently, stable. Her heart rate is normal at this time, and she is afebrile. General: She is awake and alert. Head and Neck: No masses. Chest: Clear. Heart: S1, S2. Abdomen: Soft. Nondistended. Tenderness on the right side. Wounds are clean, dry, and intact. He aling well. May be a little hematoma on the left upper quadrant where the larger laparoscopic incisi on was. There is no evidence of infection. Extremities: Adequately perfused, nontender. Neuro: Nonfocal. Laboratory Data: Reviewed. White count is 5.7, there is no left shift. Electrolytes reviewed, is e ssentially unremarkable, and her lactic acid is 1.8. CT of the abdomen and pelvis reviewed and shows postsurgical changes are present along the anterior abdominal wall superiorly. There is a thin 10-m m fluid density collection along the anterior abdominal wall fascia. Postsurgical changes are seen i n the adjacent subcu fat, small bowel diverticulosis is noted. Assessment: A 64-year-old female with multiple medical problems, status post hernia repair with post op pain. There are no surgical complications seen. She may have a small hematoma, but I think the p ain may be coming from her inflammation of her colon. Recommendations: We will admit the patient. Start the patient on antibiotics parenterally. Manage her pain. Start clear liquids, and I will follow this patient while in the hospital. There is no vt ed for any acute surgical intervention on this patient, at this time. /MODL Voice ID: [id number] Report ID: [id number]
[2025-03-14] MEDS: PIPER TAZO 3.375 GM in NA CHLORIDE 0.9% 100 ML IV SCH (17:23)
[2025-03-14] MEDS: ENOXAPARIN 40 MG/0.4 ML SQ SCH (17:23)
[2025-03-14 19:06] LABS: Urine Microscopic Reflex YN NO UMIC
[2025-03-14] MEDS: HYDROMORPHONE HCL 1 MG/ML INJ IV PRN (19:47)
[2025-03-15] MEDS: POTASSIUM CL SA 10 MEQ TAB PO ONE ×2 (00:39→01:01)
[2025-03-15 06:14] LABS: Absolute Lymphocytes (CBC) 1.5 K/uL (0.7-4.9); Hematocrit 37.5 % (36.0-45.0); Hemoglobin 12.8 g/dL (12.0-15.0); MCH 33.9 pg (27.0-35.0); MCHC 34.2 g/dL (32.0-36.0); MCV 98.8 fL (80-100); MPV 7.9 fL (7.6-11.3); Nucleated RBC Absolute Count 0.0 (0-0); Nucleated Red Blood Cells % 0.0 % (0-0); RBC Red Blood Cell Count 3.80 M/uL (3.86-4.86); White Blood Count 3.80 thou/uL (4.3-10.9)
[2025-03-15 06:33] LABS: Anion Gap 5.4 mEq/L (5.0-15.0); BUN Blood Urea Nitrogen 9.0 mg/dL (7-18); Glucose Level 100.0 mg/dL (74-106); Potassium 4.4 mEq/L (3.5-5.1)
[2025-03-15] MEDS: HYDROCODONE/APAP 5/325 MG TAB PO PRN (08:07)
--- NOTE | 2025-03-15 08:55 | PN ---
Date of Progress Note: 03/15/2025 Subjective: The patient is awake, alert. Pain is better. Objective: Vital Signs: Stable. She is afebrile. Heart rate was a little bit on the low side and she is being monitored for that. Abdomen: Benign. Laboratory Data: Reviewed. White count is 3.8, there is no left shift. Chemistry reviewed. Assessment: Abdominal pain following recent laparoscopic hernia surgery with bradycardia. Recommendation: We will advance diet to regular diet and medical management per the Hospitalist Team . The patient may need a full cardiac workup. I will discuss that with the Hospitalist Team. Encou rage ambulation and physical therapy if needed. /MODL Voice ID: [id number] Report ID: [id number]
--- NOTE | 2025-03-15 11:33 | P.CNS ---
Date of Consult: 03/15/25 Chief Complaint: Abdominal pain History of Present Illness: Patient with PMH of ventral hernia s/p recent open repair, she developed AF during that time, she presented again with abdominal pain, this time she was found to be bradycardiac, denies any active chest pain, no palpitations, no syncope, report [place] and fatigue. Allergies carisoprodol [From Soma] Allergy (Unknown, Verified 11/28/24 10:39) Itching sulfamethoxazole [From Bactrim] Allergy (Unknown, Verified 11/28/24 10:39) Itching trimethoprim [From Bactrim] Allergy (Unknown, Verified 11/28/24 10:39) Itching Sulfa (Sulfonamide Antibiotics) Allergy (Verified 11/28/24 10:39) Itching Home medications list reviewed: Yes Home Medications: Citalopram [Celexa*] 10 mg PO BEDTIME 11/28/22 Losartan Potassium [Cozaar] 100 mg PO DAILY 11/28/22 Albuterol Sulfate [Albuterol Sulfate Hfa] 2 puff IH Q6H PRN #1 inhaler 11/30/22 Metoprolol Succinate [Toprol Xl*] 50 mg PO DAILY 03/28/24 Omeprazole [Prilosec] 40 mg PO DAILY 03/28/24 Amlodipine Besylate 10 mg PO BEDTIME 11/28/24 Butalbital/Acetaminophen [Butalbital-Acetaminophn 50-325] 50 - 325 mg PO PRN PRN 11/28/24 Evolocumab [Repatha Syringe] 140 mg SQ SEECOM 11/28/24 Flecainide Acetate 50 mg PO BID 11/28/24 traMADol HCL [Ultram*] 50 mg PO Q6H PRN tab 01/05/25 Budesonide/Glycopyr/Formoterol [Breztri Aerosphere Inhaler] 2 puff IH DAILY 03/03/25 - Past Medical/Surgical History Diabetic: No -: Asthma -: COPD -: HTN -: Factor V Blood disorder -: Chronic bronchiectasis -: Appendectomy 1971 -: 1977, 1978 -: Partial hysterectomy 1981 -: Ovary removal 1995 -: Cholecystetomy 2015 -: Hip fracture repair with pin placement 2016 Psychosocial/ Personal History: Lives at home with family - Family History Mother Medical History: Heart disease, Hypertension, Diabetes Brother Medical History: Hypertension Father Medical History: Heart disease, Hypertension, Diabetes - Social History Smoking Status: Current every day smoker Alcohol use: No CD- Drugs: No Caffeine use: No Place of Residence: Home Review of Systems 10-point ROS is otherwise unremarkable Physical Examination Temp Pulse Resp BP Pulse Ox 97.5 F 50 16 120/57 L 97 03/15/25 08:00 03/15/25 08:00 03/15/25 08:07 03/15/25 08:00 03/15/25 08:07 General: Alert, In no apparent distress HEENT: Atraumatic, PERRLA, Mucous membr. moist/pink, EOMI, Sclerae nonicteric Neck: Supple, 2+ carotid pulse no bruit, No LAD, Without JVD or thyroid abnormality Respiratory: Clear to auscultation bilaterally, Normal air movement Cardiovascular: Regular rate/rhythm, Normal S1 S2 Gastrointestinal: Normal bowel sounds, No tenderness Musculoskeletal: No tenderness Integumentary: No rashes Neurological: Normal gait, Normal speech, Normal tone, Normal affect Lymphatics: No axilla or inguinal lymphadenopathy - Problems (1) Bradycardia Current Visit: Yes Status: Acute Plan: tele reviewed, patient is in sinus bradycardia, no pauses. can be secondary being on pain medications advise to continue to hold lopressor and flecainde continue to monitor on tele. (2) Atrial fibrillation Current Visit: Yes Status: Acute Plan: patient had one episode of atrial fibrillation when she had her intestinal surgery, she is follows by her electrical design engineer (Dr. Heredia) and EP (Dr. Heart), continue to hold BB and flecanide at this time she will need to follow up with her EP cardiology for possible loop recorder to rule out sick sinus syndrome continue to monitor on tele (3) HTN (hypertension) Current Visit: Yes Status: Acute Plan: BP is soft so medications on hold she used to be on losartan and Norvasc. continue to monitor.
--- NOTE | 2025-03-15 15:33 | P.PN ---
Date of Service: 03/15/25 Subjective: Seen resting in bed. Bradycardic episodes overnight. is at bedside. States she has had this pain since she turned over to the right side. Denies fevers and chills. Review of Systems General: Unremarkable Eyes: Unremarkable ENT: Unremarkable Respiratory: Unremarkable Cardiovascular: Unremarkable Gastrointestinal: Abdominal Pain Genitourinary: Unremarkable Musculoskeletal: Unremarkable Integumentary: Unremarkable Neurological: Unremarkable Lymphatics: Unremarkable Physical Examination - Physical Exam General: Alert, In no apparent distress, Oriented x3, Cooperative HEENT: Atraumatic, PERRLA, Mucous membr. moist/pink, EOMI, Sclerae nonicteric Neck: Supple, 2+ carotid pulse no bruit, No LAD, Without JVD or thyroid abnormality Respiratory: Clear to auscultation bilaterally, Normal air movement Cardiovascular: No edema, Regular rate/rhythm, Normal S1 S2 Capillary refill: <2 Seconds Gastrointestinal: Normal bowel sounds, Tenderness Musculoskeletal: No clubbing, No tenderness Integumentary: No rashes, No significant lesion Neurological: Normal gait, Normal speech, Normal strength at 5/5 x4 extr, Normal tone, Normal affect Lymphatics: No axilla or inguinal lymphadenopathy - Studies Laboratory Data (last 24 hrs) 03/14/25 03/14/25 09:59 09:59 WBC 5.70 Hgb 15.4 H Hct 45.3 H Plt Count 234 Sodium 142 Potassium 3.4 L BUN 12 Creatinine 1.00 Glucose 121 H Total Bilirubin 0.4 AST 21 ALT 24 Alkaline Phosphatase 100 Lipase 29 - Studies Laboratory Data (last 24 hrs) 03/14/25 03/14/25 09:59 09:59 WBC 5.70 Hgb 15.4 H Hct 45.3 H Plt Count 234 Sodium 142 Potassium 3.4 L BUN 12 Creatinine 1.00 Glucose 121 H Total Bilirubin 0.4 AST 21 ALT 24 Alkaline Phosphatase 100 Lipase 29 Assessment and Plan Postop complication Abdominal pain. --Advance to regular diet --CT abdomen indicates Postsurgical changes are present along the anterior abdominal wall superiorly. There is a thin 10 mm fluid density collection along the anterior abdominal wall fascia. Postsurgical changes are seen in the adjacent subcutaneous fat. Sterility is indeterminant. There appears to be focal thickening of a portion of the transverse colon that traverses this region --Continue IV Zosyn --Surgeon consulted. Recommendations appreciated Asthma\COPD\depression --Continue home medications Bradycardia Hypertension --Holding beta-liliana and flecainide at this time --Stable. --Holding blood pressure medications at this time due to low SBP --Appreciate cardiology recommendation Hypokalemia. -- Replete as needed. CKD 2. --Stable. --Will continue to monitor renal functions. DVT prophylaxis with Lovenox subQ Discharge Plan: Home - Advance Directives Does patient have a Living Will: No Does patient have a Durable POA for Healthcare: No - Code Status/Comfort Care Code Status Assessed: Yes
[2025-03-16 10:05] LABS: Absolute Lymphocytes (CBC) 1.1 K/uL (0.7-4.9); Hematocrit 40.1 % (36.0-45.0); Hemoglobin 13.8 g/dL (12.0-15.0); MCH 33.7 pg (27.0-35.0); MCHC 34.4 g/dL (32.0-36.0); MCV 97.9 fL (80-100); MPV 7.8 fL (7.6-11.3); Nucleated RBC Absolute Count 0.0 (0-0); Nucleated Red Blood Cells % 0.1 % (0-0); RBC Red Blood Cell Count 4.10 M/uL (3.86-4.86); White Blood Count 3.40 thou/uL (4.3-10.9)
[2025-03-16 10:25] LABS: ALT/SGPT 40.0 U/L (13-56); AST/SGOT 21.0 U/L (15-37); Albumin 2.9 g/dL (3.4-5.0); Albumin/Globulin Ratio 0.9 (1.1-1.8); Alkaline Phosphatase 97.0 U/L (45-117); Anion Gap 4.6 mEq/L (5.0-15.0); BUN Blood Urea Nitrogen 8.0 mg/dL (7-18); Globulin 3.2 g/dL (2.3-3.5); Glucose Level 124.0 mg/dL (74-106); Potassium 3.6 mEq/L (3.5-5.1)
--- NOTE | 2025-03-16 11:58 | P.PN ---
Date of Service: 03/16/25 Subjective: Overall feeling much better. We discussed trying to advance her diet today. Right-sided abdominal pain has improved. Heart rate has been stable. No acute events overnight. She denies fevers and chills Review of Systems General: Unremarkable Eyes: Unremarkable ENT: Unremarkable Respiratory: Unremarkable Cardiovascular: Unremarkable Gastrointestinal: Abdominal Pain Genitourinary: Unremarkable Musculoskeletal: Unremarkable Integumentary: Unremarkable Neurological: Unremarkable Lymphatics: Unremarkable Physical Examination - Physical Exam General: Alert, In no apparent distress, Oriented x3, Cooperative HEENT: Atraumatic, PERRLA, Mucous membr. moist/pink, EOMI, Sclerae nonicteric Neck: Supple, 2+ carotid pulse no bruit, No LAD, Without JVD or thyroid abnormality Respiratory: Clear to auscultation bilaterally, Normal air movement Cardiovascular: No edema, Regular rate/rhythm, Normal S1 S2 Capillary refill: <2 Seconds Gastrointestinal: Normal bowel sounds, Tenderness Musculoskeletal: No clubbing, No tenderness Integumentary: No rashes, No significant lesion Neurological: Normal gait, Normal speech, Normal strength at 5/5 x4 extr, Normal tone, Normal affect Lymphatics: No axilla or inguinal lymphadenopathy - Studies Laboratory Data (last 24 hrs) 03/14/25 03/14/25 09:59 09:59 WBC 5.70 Hgb 15.4 H Hct 45.3 H Plt Count 234 Sodium 142 Potassium 3.4 L BUN 12 Creatinine 1.00 Glucose 121 H Total Bilirubin 0.4 AST 21 ALT 24 Alkaline Phosphatase 100 Lipase 29 - Studies Laboratory Data (last 24 hrs) 03/14/25 03/14/25 09:59 09:59 WBC 5.70 Hgb 15.4 H Hct 45.3 H Plt Count 234 Sodium 142 Potassium 3.4 L BUN 12 Creatinine 1.00 Glucose 121 H Total Bilirubin 0.4 AST 21 ALT 24 Alkaline Phosphatase 100 Lipase 29 Assessment and Plan Postop complication Abdominal pain. --Advance to regular diet --CT abdomen indicates Postsurgical changes are present along the anterior abdominal wall superiorly. There is a thin 10 mm fluid density collection along the anterior abdominal wall fascia. Postsurgical changes are seen in the adjacent subcutaneous fat. Sterility is indeterminant. There appears to be focal thickening of a portion of the transverse colon that traverses this region --Continue IV Zosyn --Surgeon consulted. Recommendations appreciated Asthma\COPD\depression --Continue home medications Bradycardia Hypertension --Stable continue Holding beta-liliana and flecainide at this time --Holding blood pressure medications at this time due to low SBP --Appreciate cardiology recommendation Hypokalemia. --Resolved CKD 2. --Stable. --Will continue to monitor renal functions. DVT prophylaxis with Lovenox subQ Discharge Plan: Home - Advance Directives Does patient have a Living Will: No Does patient have a Durable POA for Healthcare: No - Code Status/Comfort Care Code Status Assessed: Yes
--- NOTE | 2025-03-16 12:41 | P.PN ---
Subjective Date of Service: 03/16/25 Chief Complaint: Abdominal pain Subjective: No new changes, No C/O voiced, Tolerating diet, Ambulating, Improving Review of Systems 10-point ROS is otherwise unremarkable Physical Examination - Vital Signs Temperature: 98.0 F Blood Pressure: 159/68 Pulse: 62 Respirations: 18 Pulse Ox (%): 97 - Physical Exam General: Alert, In no apparent distress HEENT: Atraumatic, PERRLA, EOMI Neck: Supple, JVD not distended Respiratory: Clear to auscultation bilaterally, Normal air movement Cardiovascular: Regular rate/rhythm, Normal S1 S2 Gastrointestinal: Normal bowel sounds, No tenderness Musculoskeletal: No tenderness Integumentary: No rashes Neurological: Normal speech, Normal tone, Normal affect Lymphatics: No axilla or inguinal lymphadenopathy - Studies Medications List Reviewed: Yes Assessment And Plan - Current Problems (Diagnosis) (1) Bradycardia Current Visit: Yes Status: Acute Plan: tele reviewed, patient is in sinus bradycardia, no pauses. can be secondary being on pain medications advise to continue to hold lopressor and flecainde Patient to follow up with her outpatient automatic thread winder and EP cardiology. No further inpatient cardiac work up needed. (2) Atrial fibrillation Current Visit: Yes Status: Acute Plan: patient had one episode of atrial fibrillation when she had her intestinal surgery, she is follows by her automatic thread winder (Dr. Heredia) and EP (Dr. Heart), continue to hold BB and flecanide at this time she will need to follow up with her EP cardiology for possible loop recorder to rule out sick sinus syndrome (3) HTN (hypertension) Current Visit: Yes Status: Acute Plan: resume losartan and Norvasc. continue to monitor. Physician Review: Patient Assessed, Agree with Above Assessment and Plan
[2025-03-17] MEDS: POTASSIUM CL SA 10 MEQ TAB PO ONE (09:23)
--- NOTE | 2025-03-17 10:32 | PN ---
Date of Progress Note: 03/17/2025 Subjective: The patient is awake, alert, tolerating diet, having bowel movements. Pain is controlle d. She had some concern about being told at [facility] that she had a 5 cm mass of some sort in her belly. It was not seen on our CAT scan. She does have small bowel diverticula and may be that is what the y were describing on belly CAT scan. I reviewed all the CAT scans with our radiologist and there is no evidence of any collection seen on the October, last month, and this month CT. Objective: Vital Signs: Stable. She is afebrile. Abdomen: Benign. Assessment: Status post hernia repair. Recommendations: The patient cleared from Surgery for discharge. She can follow up with me next dimitrios dowell. The patient was advised to bring her CD and reports from [facility], so I could review those as well wi th our radiologist. /MODL Voice ID: [id number] Report ID: [id number]
[2025-03-17 11:29] VITALS: O2SAT 99
[2025-03-17 16:23] VITALS: BP 167/73; TEMP 98
--- NOTE | 2025-03-17 17:38 | P.DS ---
Admission Date: 03/14/25 Discharge Date: 03/17/25 Disposition: ROUTINE DISCHARGE Discharge Condition: FAIR Reason for Admission: Abdominal pain Brief History of Present Illness: 64-year-old female with a past medical history significant for asthma, hypertension, COPD presented with complaint of abdominal pain of 6 days duration. Patient had a ventral hernia repair a week prior. Patient reported that she started experiencing right lower quadrant pain rated as 10/10 in severity and described pain as aching in quality. Patient reported that she went fora follow-up appointment with her surgeon and was instructed to go to the ER. Patient decided to present to the hospital as directed by her surgeon. In the ER, CT abdomen and pelvis done showed 10 mm thick crescentic fluid density collection along the anterior abdominal wall fascial planes deep to presume side of intervention. Sterility is indeterminant. Focal thickening of a portion of the transverse colon is seen which traverses this collection and is just deep to its margin. This may indicate inflammation or infection in this region, small bowel diverticulosis. Patient was hospitalized for further management. Hospital Course: Diagnosis Postop complication Abdominal pain. Asthma\COPD\depression Bradycardia Hypertension Hypokalemia. CKD 2. Patient was admitted to the medical floor and started on IV Zosyn. He was evaluated by general surgery Dr. Waggoner who recommended no surgical intervention and deemed the fluid collection related to the hernia repair. Patient was noted to have bradycardia, she was seen by cardiology Dr. Cox who recommended to hold her flecainide and metoprolol and follow-up with patient cardiology for evaluation for sick sinus syndrome/tachybradycardia syndrome and pacemaker as needed. Patient was concerned about pain in her right lower quadrant, CT abdomen pelvis did not indicate any acute disease except focal thickening of the transverse colon. She also mentioned that she was told she has a outpouching of her bowel found during a previous abdominal surgery by Dr. Walker. According to Dr. Waggoner, she saw patient again by her bedside and reiterated the outpouching of her bowel is a diverticulum which does not need any surgical treatment for now. Patient is discharged with oral Cipro and Flagyl to continue treatment for colitis. Vital Signs/Physical Exam: Temp Pulse Resp BP Pulse Ox 98.0 F 66 16 167/73 H 96 03/17/25 16:00 03/17/25 16:00 03/17/25 16:00 03/17/25 16:00 03/17/25 16:00 General: Alert, In no apparent distress, Oriented x3 HEENT: Mucous membr. moist/pink, Sclerae nonicteric Neck: Supple, JVD not distended Respiratory: Clear to auscultation bilaterally, Normal air movement Cardiovascular: No edema, Regular rate/rhythm, Normal S1 S2 Gastrointestinal: Normal bowel sounds, Soft and benign, Non-distended Musculoskeletal: No swelling Integumentary: No rashes, No cyanosis Neurological: Normal strength at 5/5 x4 extr Laboratory Data at Discharge: WBC 3.40 thou/uL (4.3-10.9) L 03/16/25 09:53 Hgb 13.8 g/dL (12.0-15.0) 03/16/25 09:53 Hct 40.1 % (36.0-45.0) 03/16/25 09:53 Plt Count 195 thou/uL (152-406) 03/16/25 09:53 APTT 24.6 SECONDS (27.2-37.4) L 03/15/25 06:00 Sodium 140 mEq/L (136-145) 03/16/25 09:53 Potassium 3.6 mEq/L (3.5-5.1) D 03/16/25 09:53 BUN 8 mg/dL (7-18) 03/16/25 09:53 Creatinine 0.95 mg/dL (0.55-1.02) 03/16/25 09:53 Glucose 124 mg/dL (74-106) H 03/16/25 09:53 Phosphorus 3.7 mg/dL (2.5-4.9) 03/15/25 06:00 Total Bilirubin 0.5 mg/dL (0.2-1.0) 03/16/25 09:53 AST 21 U/L (15-37) 03/16/25 09:53 ALT 40 U/L (13-56) 03/16/25 09:53 Alkaline Phosphatase 97 U/L (45-117) 03/16/25 09:53 Lipase 29 U/L (13-75) 03/14/25 09:59 Home Medications: Citalopram [Celexa*] 10 mg PO BEDTIME 11/28/22 Losartan Potassium [Cozaar] 100 mg PO DAILY 11/28/22 Albuterol Sulfate [Albuterol Sulfate Hfa] 2 puff IH Q6H PRN #1 inhaler 11/30/22 Omeprazole [Prilosec] 40 mg PO DAILY 03/28/24 Amlodipine Besylate 10 mg PO BEDTIME 11/28/24 Butalbital/Acetaminophen [Butalbital-Acetaminophn 50-325] 50 - 325 mg PO PRN PRN 11/28/24 Evolocumab [Repatha Syringe] 140 mg SQ SEECOM 11/28/24 Budesonide/Glycopyr/Formoterol [Breztri Aerosphere Inhaler] 2 puff IH DAILY 03/03/25 Ciprofloxacin HCl [Cipro 500 MG Tablet] 500 mg PO BID #10 tab 03/17/25 Hydrocodone 5/APAP 325 [Pryor 5/325*] 1 tab PO Q6H PRN #15 tab 03/17/25 metroNIDAZOLE [Flagyl] 500 mg PO Q8H #15 tab 03/17/25 New Medications: Ciprofloxacin HCl [Cipro 500 MG Tablet] 500 mg PO BID #10 tab metroNIDAZOLE [Flagyl] 500 mg PO Q8H #15 tab Hydrocodone 5/APAP 325 [Pryor 5/325*] 1 tab PO Q6H PRN #15 tab PRN Reason: Pain Scale 5-7 (Moderate) Physician Discharge Instructions: May shower Incentive spirometry as instructed Abdominal binder as instructed No heavy lifting or strenuous exercise Follow-up in office 1 to 2 weeks, call for appointment Resume home meds and diet Antibiotics as previously per the hospitalist team Diet: Regular Activity: No lifting more than 10 lbs Followup: Prashant Villa DO [Primary Care Provider] - Breezy Waggoner MD [ACTIVE - CAN ADMIT] - 1-2 Weeks Time spent managing pt's care (in minutes): 38
== END 2025-03-17 19:36 | disposition home or self-care (01) | DRG 948 ==
LOC: ER 08:54 → ERHOLD 10:59 → 4TH 11:44
PROVIDERS: ADMIT Family Medicine; ATTEND Internal Medicine
DX: G89.18 Other acute postprocedural pain (principal); E87.6 Hypokalemia; F32.A Depression, unspecified; E86.0 Dehydration; I12.9 Hypertensive chronic kidney disease with stage 1 through stage 4 chronic kidney disease, or unspecified chronic kidney disease; N18.2 Chronic kidney disease, stage 2 (mild); K52.9 Noninfective gastroenteritis and colitis, unspecified; J44.9 Chronic obstructive pulmonary disease, unspecified; F17.200 Nicotine dependence, unspecified, uncomplicated; R00.1 Bradycardia, unspecified; R00.0 Tachycardia, unspecified; Z88.1 Allergy status to other antibiotic agents; Z88.5 Allergy status to narcotic agent; Z90.49 Acquired absence of other specified parts of digestive tract; Z79.899 Other long term (current) drug therapy
CPT/HCPCS: 36415; 71275; 74177; 80048; 80053; 81003; 82947; 83605; 83690; 84100; 84484; 85025; 85730; 86140; 93005; 97116; 97161; 99285; J1171; J1650; J2405; J2543; J7030; Q9967